=== PATIENT | female | born 1955 | race Caucasian/White ===

== ENCOUNTER → 2018-10-31 07:03 | Outpatient (CLI) | payer OTHER, SELFPAY ==
--- NOTE | 2018-10-31 07:10 | BI_ITS ---
MAMMOGRAPHY - BILATERAL SCREENING REASON FOR EXAM: Female, 63 years old. Routine annual screening examination. PERTINENT HISTORY: Aunt with breast cancer. TECHNIQUE: Digital bilateral breast bridgett (3D mammographic acquisition) in the CC and MLO projections. 2-D mediolateral oblique (MLO) and craniocaudad (CC) views of both breasts were obtained. CAD: Full Field Digital Mammography with Computer Added Detection was performed. COMPARISON: Comparison is made with prior study dated September 21, 2017 and August 29, 2016. FINDINGS: Breast Composition: The breasts are heterogeneously dense, which may obscure small masses. There are no dominant masses or suspicious calcifications. There is an 8.4 mm well-defined nodule in the deep slightly medial aspect of the right breast. Correlation with ultrasound is recommended. No other significant abnormalities are identified. BI/SCREENING MAMM (CAD), BILAT IMPRESSION: There is an 8.4 mm well-defined nodule in the deep slightly medial portion of the right breast. Correlation with ultrasound is recommended. ASSESSMENT CATEGORY: BIRADS Category 0: Incomplete. Need additional imaging evaluation. A letter regarding these results will be sent to the patient by the facility within 30 days. Approximately 10% of breast cancers are not detected by mammography. A normal mammogram should not delay biopsy of a clinically suspicious abnormality. [id number] Electronically Signed: Jw Stuart MD at 10:11 EST Tel [phone], Service support ,
== END ==
PROVIDERS: Family Provider Family Medicine; PCP Family Medicine; Referring Provider Family Medicine; Visit Provider Family Medicine
DX: Z12.31 Encounter for screening mammogram for malignant neoplasm of breast (principal)
CPT/HCPCS: 77063; 77067

== ENCOUNTER → 2018-11-24 15:31 | Outpatient (CLI) | payer OTHER, SELFPAY ==
--- NOTE | 2018-11-24 15:32 | US_ITS ---
STUDY: ULTRASOUND BREAST - RIGHT REASON FOR EXAM: Female, 63 years old. Abnormal screening mammogram. TECHNIQUE: Axial and longitudinal images of the RIGHT breast were performed with a high resolution ultrasound transducer. COMPARISON: Comparison is made with prior mammogram dated October 31, 2018. FINDINGS: RIGHT Breast: There is a 5 mm x 4 mm x 4 mm cyst at the 6:00 position of the breast at 1 cm from the nipple. There is also evidence of a 4 mm x 4 mm x 3 mm cyst at the 12:00 position of the breast at 2 cm from nipple. There is a 6 mm x 3 mm x 6 mm echogenic nodule deep to the skin surface at the 1:00 position breast at 2 cm some nipple. This most likely represents a small lipoma. US/Breast Limited Unilateral IMPRESSION: 2 small cysts are seen as described. Findings suggestive of a subcentimeter lipoma just deep to the skin at the 1:00 position breast at 2 cm from the nipple. ASSESSMENT CATEGORY: BIRADS Category 2: Benign. A letter regarding these results will be sent to the patient by the facility within 30 days. Electronically Signed: Jw Stuart MD at 9:16 EST , Service support ,
== END ==
PROVIDERS: Family Provider Family Medicine; PCP Family Medicine; Referring Provider Family Medicine; Visit Provider Family Medicine
DX: R92.8 Other abnormal and inconclusive findings on diagnostic imaging of breast (principal)
CPT/HCPCS: 76642

== ENCOUNTER 2019-02-23 12:12 | Inpatient (IN) | payer OTHER, SELFPAY ==
[2019-02-23] VITALS (24 sets, daily range): BP systolic 69–182; BP diastolic 38–102; PULSE 91–155; RESP 17–48; TEMP 36.9–40.5; O2SAT 93–100; BMI 28.7; BMI 31.1
--- NOTE | 2019-02-23 13:05 | CT_ITS ---
STUDY: CT ABDOMEN AND PELVIS WITHOUT CONTRAST REASON FOR EXAM: Female, 63 years old. Chills, back pain RADIATION DOSAGE (If Supplied By Facility): CTDIvol = ( 13.73 ) mGy, DLP = ( 720.10 ) mGycm TECHNIQUE: Transaxial images were obtained from the dome of the diaphragm to the symphysis pubis without oral contrast, and without intravenous contrast. Sagittal and coronal images were reconstructed. Individualized dose optimization techniques were used for this CT. COMPARISON: None. FINDINGS: Lung bases show interstitial edema with chronic interstitial changes. Heart is unremarkable, there is a small pericardial effusion with maximum thickness of 5 mm. There is decreased attenuation of the liver consistent with steatosis. Normal gallbladder and extrahepatic biliary system. Normal spleen. Normal pancreas. Normal bilateral adrenal glands. No obstructive uropathy, there is nonspecific induration of the perinephric fat. There is a 1 cm upper pole cyst in the right kidney and nonobstructing cortical medullary junction stones in the right kidney. Normal visualized stomach. Normal small intestine. Retained stool noted in the colon. The appendix is visualized and appears normal. Appendix best seen on coronal recon image 67. There is diffuse atherosclerotic calcification of the abdominal aorta, without a demonstrated aneurysm. Normal inferior vena cava. Normal retroperitoneum. Normal urinary bladder. Uterus is still present, the endometrium cannot be accurately evaluated with CT. No suspicious cystic mass or free fluid in the cul-de-sac. Normal abdominal wall. Normal osseous structures. CT/Abdomen/Pelvis without Cont IMPRESSION: No obstructive uropathy, there is a nonobstructing right renal stone and a simple right renal cyst and there is nonspecific perinephric inflammatory stranding. Fatty liver Normal appendix visualized Uterus is still present, the endometrium cannot be accurately evaluated with CT Electronically Signed: Alexander Pearl MD at 14:37 EDT , Service support ,
--- NOTE | 2019-02-23 13:11 | ED.DCSUM_ITS ---
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 basically thought she should come to the hospital, the cough is dry nonproductive she complains of suprapubic fullness some radiation of that to her back, she does indicate she is also had constipation where despite using laxatives she cannot have a bowel movement, She has felt feverish but has not actually had a documented temperature, she has a prior stroke to cause her to speak with a slightly heavy voice but that is unchanged her general health condition has been very good and stable She is noted here to have a temperature of 98.8, her chief complaint is feeling cold as if she has a fever she has had no exposures she has no runny nose no sore throat again the cough is dry nonproductive her urinary habits have been normal Physical Examination: [] 120/80 heart rate 120 sinus, temperature 98 General, no distress resting comfortably HEENT is generally unremarkable The neck is supple no adenopathy Cardiovascular, regular rate and rhythm tachycardic to 110 Lungs, clear bilateral Abdomen, soft nontender, she complains subjectively of her suprapubic fullness there is nothing on physical exam, rectal exam shows brown stool nontender no masses Extremities, no clubbing cyanosis or edema Neurologic, awake alert answering questions appropriately moving all 4 extremities her speech is slightly heavy but but stable for her her NIH is 0 Test Results: [] Emergency Department Course and Treatment: [] Above screening labs are obtained Patient CT abdomen shows appears to be perinephric stranding possibly inflammatory, the patient's white count was 12 her lactate was 2, she received IV fluids we checked a rectal temperature and it was 99, she was waiting for the rest of her studies to return she spiked a temperature to 105.0 she had shaking chills and Riggers, she remained awake alert she had a blood pressure of 120/80 she continued IV fluids to a 30 cc/kg bolus, blood urine cultures are obtained, IV antibiotics per sepsis protocol started, given all of the above we will admit to the hospital for further management, lactate 2.0 UA shows signs of UTI Her blood pressure remained stable heart rate range 120 no cardiovascular signs of compromise will arrange for admission Treatment Plan: [] Disposition: [] Admit stable Impression: [] Severe sepsis urinary tract infection This note was generated with Medcurrent dictation software. It may contain incorrect words, spelling, and punctuation that were not noted in review of the chart prior to signing ED Disposition - Plan for ED Patient: Referrals: Juvencio Davila MD [Primary Care Provider] -
--- NOTE | 2019-02-23 13:41 | RAD_ITS ---
STUDY: X-RAY CHEST REASON FOR EXAM: Female, 63 years old. Fever, shaking chills TECHNIQUE: Single AP portable view of the chest. COMPARISON: None. FINDINGS: EKG leads overlie the chest The lungs are clear and expanded. There is no demonstrated pleural abnormality. Normal size heart. Normal mediastinum and danielle. Normal visualized pulmonary arteries. Normal visualized aortic arch and descending thoracic aorta. Normal visualized thoracic spine. Normal visualized ribs, clavicles, and shoulders. There is no demonstrated abnormality of the visualized soft tissue structures of the upper abdomen. RAD/Chest 1 View IMPRESSION: Normal x-ray examination of the chest. Electronically Signed: Alexander Pearl MD at 14:24 EDT , Service support ,
[2019-02-23] MEDS: Morphine 4 MG/ML Syringe IV (13:46)
[2019-02-23] MEDS: 0.9% Normal Saline 1,000 ML 1000 ML IV (13:46)
[2019-02-23] MEDS: Ondansetron 4 MG/2 ML Vial IV (13:47)
[2019-02-23 13:57] LABS: Absolute Lymphocyte Count 0.31 X10^3/ul (0.83-4.51); Absolute Neutrophil Count 10.5 X10^3/uL (2.0-7.7); Basophil# 0.01 X10^3/uL; Basophil% 0.1 % (0-1); Hematocrit 33.2 % (37-47); Hemoglobin 10.9 g/dl (12.0-15.0); Lymphocyte # 0.31 X10^3/ul (4.0); Lymphocyte % 2.6 % (19-41); Mean Corp Hgb Conc 32.8 g/gl (32-36); Mean Corpuscular Hgb 29.5 pg (27.0-32.0); Mean Platelet Vol. 11.5 fl (6.2-12.0); Monocyte# 1.16 X10^3/uL; Monocyte% 9.6 % (0-10); Neutrophil % 87.3 % (47-70); Platelet Count 160 K/mm3 (150-450); RBC Distribution Width SD 46.3 fl (35.1-43.9); Red Blood Count 3.69 M/mm3 (4.2-5.4)
[2019-02-23 14:01] LABS: Differential Indicated SCAN CRITERIA MET; POSITIVE COUNT NO; POSITIVE DIFFERENTIAL YES; POSITIVE MORPHOLOGY NO
[2019-02-23 14:02] LABS: AST(SGOT) 74 U/L (15-37); Alanine Aminotransfer ALT/SGPT 75 U/L (13-56); Albumin, Serum 2.9 g/dL (3.2-5.0); Alkaline Phosphatase 120 U/L (45-117); Anion Gap 4 (5-15); BUN 29 mg/dL (7-18); Bilirubin, Direct 0.48 mg/dL (0.00-0.30); Calcium,Total 8.7 mg/dL (8.5-10.1); Chloride 103 mmol/L (98-107); Creatinine, Serum 1.71 mg/dL (0.55-1.02); EST Glomerular Filtration Rate 32 mL/min (>60); Est Glom Filt Rate - Afr Amer 39 mL/min (>60); Estimated Creatinine Clearance 28.58 ml/min; Glucose 103 mg/dL (74-106); Lipase 92 U/L (73-393); Potassium 3.7 mmol/L (3.5-5.1); Protein, Total 6.9 g/dL (6.4-8.2); Sodium Level 133 mmol/L (136-145)
--- NOTE | 2019-02-23 14:31 | ED.RN ---
LACTIC 2.0, AWARE.
[2019-02-23] MEDS: Acetaminophen 500 MG Tablet 1000 MG PO (14:54)
[2019-02-23] MEDS: 0.9% Normal Saline 1,000 ML 999 ML IV ×3 (15:00→21:19)
[2019-02-23 15:19] LABS: Mucous, Urine 0 SEEN /hpf (<or=2+)
--- NOTE | 2019-02-23 15:30 | ED.RN ---
MD AWARE OF PT CURRENT VITAL SIGNS.
[2019-02-23 15:49] LABS: Color, Urine Straw (Yellow); Glucose, Dipstick Normal (Normal); Ketone-Dipstick Negative (Negative); Leukocyte Esterase-Dipstick 500 /ul (Negative); Nitrite-Dipstick Negative (Negative); Occult Blood-Urine 150 /ul (Negative); Protein-Dipstick 100 mg/dl (Negative); Specific Gravity, Urine 1.015 (1.002-1.030); Urine Bilirubin Dipstick Negative (Negative); Urine Clarity Cloudy (Clear); Urine Urobilinogen 1 mg/dl (Normal)
[2019-02-23 16:26] LABS: Bacteria 4+ /hpf (None Seen); Red Blood Cells-Urine 0-5 SEEN /hpf (0-5); Renal Epithelial Cells 0-5 SEEN /hpf (0-5); Squamous Epithelial Cells - UA 0-5 SEEN /hpf (5-10)
[2019-02-23 16:27] LABS: Amorphous Sediment 2+; White Blood Cells 25-50 SEEN /hpf (0-5)
[2019-02-23 17:40] LABS: Reflex Lactate? Y
[2019-02-23] MEDS: 0.9% Normal Saline 1,000 ML 200 ML IV (18:32)
[2019-02-23 18:52] LABS: Lactic Acid 1.7 mmol/L (0.4-2.0)
--- NOTE | 2019-02-23 21:01 | HP.PCM_ITS ---
Problem List (1) Chills Status: Acute (2) Lower back pain Status: Acute Qualifiers: Chronicity: acute Back pain laterality: bilateral Sciatica presence: without sciatica Qualified Code(s): M54.5 - Low back pain History of Present Illness Date of Admission: 02/23/19 Chief Complaint: Chills, lower back pain The patient is a 63 year old F who was seen in the emergency room at [facility] with a chief complaint of low back pain across her entire low back x24 hours along with chills. Information by this examiner was obtained from the patient's daughter who is in the room due to the patient's somnolence and inability to answer some questions. According to the emergency room physic emily, patient spiked a temp of 105 degrees after she been in the ER for a few hours, lab work obtained was remarkable for an elevated white blood cell count at 12, hemoglobin was 10.9, sodium was 133, creatinine was 1.71, BUN was 29, AST was elevated at 74, ALT was elevated at 75, alkaline phosphatase was elevated at 120, lactic acid was elevated at 2, and patient's urinalysis indicated she had a urinary tract infection with +4 bacteria and 25-50 WBCs and positive leukocyte estrace. Patient had a CT scan of her abdomen and pelvis which showed a nonobstructing right renal stone and nonspecific perinephric inflammatory stranding on the right, fatty liver was noted to be present. Patient was felt to have severe sepsis from acute pyelonephritis, she was given IV Zosyn and IV vancomycin in the emergency room, she will be admitted to PCU, vigorous fluid administration will be carried out. Patient was given IV morphine and IV Zosyn in the emergency room but I think the patient has an element of metabolic encephalopathy due to her sepsis. Past Medical History Allergies No Known Allergies Allergy (Verified 02/23/19 12:14) Home Medications: Ambulatory Orders Medication Instructions Recorded Cyanocobalamin (Vitamin B-12) 1,000 mcg PO DAILY 02/23/19 [B-12] Fenofibrate 54 mg PO DAILY 02/23/19 Folic Acid 1 mg PO DAILY 02/23/19 Lisinopril 20 mg PO DAILY 02/23/19 Melatonin 10 mg PO QHS 02/23/19 Multivitamins,Therapeutic 1 tablet PO DAILY 02/23/19 [Multivitamin] Risperidone 2 mg PO DAILY 02/23/19 Simvastatin 40 mg PO QHS 02/23/19 Venlafaxine HCl [Venlafaxine HCl 75 mg PO DAILY 02/23/19 ER] Venlafaxine HCl [Venlafaxine HCl 150 mg PO DAILY 02/23/19 ER] Surgical History: tonsillectomy, - - Uterine ablation Psychiatric History: No pertinent psych hx 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 VTE Information - Inpt Only VTE Present on Admission: No VTE Mechan Device Prophylaxis: None VTE Pharm Prophylaxis ordered?: Yes Patient Problems: Active and Suspected Problems Chills (Acute) Lower back pain (Acute) - Physical Exam General: No apparent distress, Well developed, Confused, Lethargic HEENT: Atraumatic, PERRLA, EOMI, Normocephalic Oral: Moist Mucosa Neck: Supple, No JVD, Negative Carotid Bruits, No Nuchal Rigidity, Trachea Midline, Thyroid Normal Size and Texture Lungs: Clear to auscultation, Normal air movement, No rhonchi, No wheeze, No rales Cardiovascular: PMI Normal, No rub noted, No Gallop, Tachycardic Abdomen: Bowel Sounds Present, Soft, Non Tender, Non-Distended, No hernias noted Extremities: No clubbing, No cyanosis, No edema Skin: No rashes, No breakdown Neurological: Cranial nerves II-XII grossly intact, Neuro grossly intact Psych/Mental Status: - - Patient appears somnolent, she responds to deep painful stimuli and some verbal stimuli but then falls back to sleep. Vital Signs Temp Pulse Resp BP Pulse Ox 98.8 F 108 H 24 H 69/43 L 96 02/23/19 20:00 02/23/19 20:00 02/23/19 20:00 02/23/19 20:00 02/23/19 20:00 Oxygen Flow Rate (L/min) 2 Oxygen Delivery Method Nasal Cannula Weight: 79.638 kg Body Mass Index (BMI) 31.1 Intake and Output for Last 24 Hours 02/21/19 02/22/19 02/23/19 23:59 23:59 23:59 Intake Total 275 / 275 Balance 275 / 275 Laboratory Tests Past 24 Hrs 02/23/19 02/23/19 02/23/19 13:36 13:36 13:36 WBC 12.0 H RBC 3.69 L Hgb 10.9 L Hct 33.2 L MCV 90.0 MCH 29.5 MCHC 32.8 RDW 14.0 RDW Differential 46.3 H Plt Count 160 MPV 11.5 Immature Gran % (Auto) 0.400 Neut % (Auto) 87.3 H Lymph % (Auto) 2.6 L [place] % (Auto) 9.6 Eos % (Auto) 0.0 Baso % (Auto) 0.1 Absolute Neuts (auto) 10.5 H Absolute Lymphs (auto) 0.31 L Total Counted Not Reportable Differential Comment COMMENT Sodium 133 L Potassium 3.7 Chloride 103 Carbon Dioxide 26.0 Anion Gap 4 L BUN 29 H Creatinine 1.71 H Estim Creat Clear Calc 28.58 Est GFR (MDRD) Af Amer 39 L Est GFR (MDRD) Non-Af 32 L BUN/Creatinine Ratio 17.0 Glucose 103 Lactic Acid 2.0 Calcium 8.7 Total Bilirubin 0.70 Direct Bilirubin 0.48 H AST 74 H ALT 75 H Alkaline Phosphatase 120 H Troponin I < 0.015 Total Protein 6.9 Albumin 2.9 L Globulin 4.0 Lipase 92 Urine Color Urine Clarity Urine pH Ur Specific [place] Urine Protein Urine Glucose (UA) Urine Ketones Urine Occult Blood Urine Nitrite Urine Bilirubin Urine Urobilinogen Ur Leukocyte Esterase Urine RBC Urine WBC Ur Squamous Epith Cells Ur Renal Epithelial Cell Amorphous Sediment Urine Bacteria Urine Mucus 02/23/19 02/23/19 15:10 17:59 WBC RBC Hgb Hct MCV MCH MCHC RDW RDW Differential Plt Count MPV Immature Gran % (Auto) Neut % (Auto) Lymph % (Auto) [place] % (Auto) Eos % (Auto) Baso % (Auto) Absolute Neuts (auto) Absolute Lymphs (auto) Total Counted Differential Comment Sodium Potassium Chloride Carbon Dioxide Anion Gap BUN Creatinine Estim Creat Clear Calc Est GFR (MDRD) Af Amer Est GFR (MDRD) Non-Af BUN/Creatinine Ratio Glucose Lactic Acid 1.7 Calcium Total Bilirubin Direct Bilirubin AST ALT Alkaline Phosphatase Troponin I Total Protein Albumin Globulin Lipase Urine Color Straw Urine Clarity Cloudy Urine pH 6.0 Ur Specific [place] 1.015 Urine Protein 100 H Urine Glucose (UA) Normal Urine Ketones Negative Urine Occult Blood 150 H Urine Nitrite Negative Urine Bilirubin Negative Urine Urobilinogen 1 H Ur Leukocyte Esterase 500 H Urine RBC 0-5 SEEN Urine WBC 25-50 SEEN Ur Squamous Epith Cells 0-5 SEEN Ur Renal Epithelial Cell 0-5 SEEN Amorphous Sediment 2+ Urine Bacteria 4+ Urine Mucus 0 SEEN Assessment/Plan All Active Problems Chills (Acute) Lower back pain (Acute) #1 severe sepsis secondary to acute pyelonephritis from gram-negative bacteria- patient will be admitted to PCU, she will be monitored on telemetry, she will receive IV fluids and IV antibiotics. Lactic acid level will be rechecked #2 metabolic encephalopathy secondary to #1 #3 acute pyelonephritis secondary to gram-negative bacteria #4 hyperlipidemia #5 depression #6 hypertension Code Visit Inpatient E&M: 84682 Init Hosp L3
[2019-02-23] MEDS: Atorvastatin Calcium 20 MG Tablet PO (21:39)
[2019-02-24] VITALS (39 sets, daily range): BP systolic 83–163; BP diastolic 39–104; PULSE 69–168; RESP 12–92; TEMP 36.3–40.6; O2SAT 74–100
[2019-02-24] MEDS: 0.9% Normal Saline 1,000 ML 200 ML IV (00:21)
--- NOTE | 2019-02-24 02:47 | EKG12_ITS ---
Test Reason : Blood Pressure : / mmHG Vent. Rate : 172 BPM Atrial Rate : 166 BPM P-R Int : 000 ms QRS Dur : 068 ms QT Int : 276 ms P-R-T Axes : 000 010 041 degrees QTc Int : 466 ms Supraventricular tachycardia Low voltage QRS Borderline ECG Confirmed by DELILAH LIU, BIJU ([id number]), communications editor FABRICIO ABDULLAHI ([id number]) on 02/25/2019 1:51:21 PM Referred By: Confirmed By:BIJU MAZARIEGOS MD
--- NOTE | 2019-02-24 02:50 | RAD_ITS ---
STUDY: X-RAY CHEST REASON FOR EXAM: Female, 63 years old. Shortness of breath and dyspnea. TECHNIQUE: 1 view COMPARISON: February 23, 2019 FINDINGS: Mild cardiomegaly with central vascular congestion. No pneumonia. No pleural effusions.. Normal visualized thoracic spine. Normal visualized ribs, clavicles, and shoulders. There is no demonstrated abnormality of the visualized soft tissue structures of the upper abdomen. RAD/Chest 1 View (Portable) IMPRESSION: Cardiomegaly with mild central vascular congestion. No pneumonia. No pleural effusions. Electronically Signed: Keon Obando MD at 3:44 EDT Tel , Service support ,
--- NOTE | 2019-02-24 03:23 | PCM.PN.HOSP ---
Patient Problems: Active and Suspected Problems Chills (Acute) Lower back pain (Acute) Subjective: Rapid response team called Patient became tachycardic rate 160s with rapid respiratory rate of 30s CXR showed pulmonary congestion (she had received 5liters NS bolus since arrival in ER with IV at 200cc/hr) and urine output of 1400cc she responded to 5mg IV lopressor (BP was now normotensive) Pulse ox is maintained throughout the rapid response in the 90s with a non rebreather mask due to pulmonary congestion and increased work of breathing a trial of bipap therapy was initiated cbc,cmp stat ordered will add consult for ICU dramatic critic Vitals/I&O's: Vital Signs Temp Pulse Resp BP Pulse Ox 105.1 F H 152 H 51 H 150/62 H 94 02/24/19 03:09 02/24/19 03:09 02/24/19 03:09 02/24/19 03:09 02/24/19 03:09 Oxygen Flow Rate (L/min) 12 Oxygen Delivery Method Non-Rebreather Weight: 175 lb 9.162 oz Body Mass Index (BMI) 31.1 Intake and Output for Last 24 Hours 02/22/19 02/23/19 02/24/19 23:59 23:59 23:59 Intake Total 275 / 275 3273 / 3273 Output Total 1200 / 1200 Balance 275 / 275 2072 / 2072 General: Alert, Oriented x3 Lungs: Diminished Cardiovascular: Normal S1, Normal S2, Tachycardic Skin: - - slight jaundice Neurological: Neuro grossly intact Microbiology Past 72 Hours 02/23/19 13:24 Mucosa - Nasopharyngeal Respiratory Panel (PCR) - Preliminary Laboratory Results 02/23/19 13:36: WBC 12.0 H, RBC 3.69 L, Hgb 10.9 L, Hct 33.2 L, MCV 90.0, MCH 29.5, MCHC 32.8, RDW 14.0, RDW Differential 46.3 H, Plt Count 160, MPV 11.5, Immature Gran % (Auto) 0.400, Neut % (Auto) 87.3 H, Lymph % (Auto) 2.6 L, [place] % (Auto) 9.6, Eos % (Auto) 0.0, Baso % (Auto) 0.1, Absolute Neuts (auto) 10.5 H, Absolute Lymphs (auto) 0.31 L, Total Counted Not Reportable, Differential Comment COMMENT 02/23/19 13:36: Sodium 133 L, Potassium 3.7, Chloride 103, Carbon Dioxide 26.0, Anion Gap 4 L, BUN 29 H, Creatinine 1.71 H, Estim Creat Clear Calc 28.58, Est GFR (MDRD) Af Amer 39 L, Est GFR (MDRD) Non-Af 32 L, BUN/Creatinine Ratio 17.0, Glucose 103, Calcium 8.7, Total Bilirubin 0.70, Direct Bilirubin 0.48 H, AST 74 H, ALT 75 H, Alkaline Phosphatase 120 H, Troponin I < 0.015, Total Protein 6.9, Albumin 2.9 L, Globulin 4.0, Lipase 92 02/23/19 13:36: Lactic Acid 2.0 02/23/19 15:10: Urine Color Straw, Urine Clarity Cloudy, Urine pH 6.0, Ur Specific [place] 1.015, Urine Protein 100 H, Urine Glucose (UA) Normal, Urine Ketones Negative, Urine Occult Blood 150 H, Urine Nitrite Negative, Urine Bilirubin Negative, Urine Urobilinogen 1 H, Ur Leukocyte Esterase 500 H, Urine RBC 0-5 SEEN, Urine WBC 25-50 SEEN, Ur Squamous Epith Cells 0-5 SEEN, Ur Renal Epithelial Cell 0-5 SEEN, Amorphous Sediment 2+, Urine Bacteria 4+, Urine Mucus 0 SEEN 02/23/19 17:59: Lactic Acid 1.7 Current Medications Atorvastatin Calcium (Lipitor) 20 mg PO QHS [facility] Last Admin: 02/23/19 21:39 Dose: 20 mg Dextrose (D50w Syringe) 0 gm IV X1 PRN; Protocol PRN Reason: Hypoglycemia Enoxaparin Sodium (Lovenox) 30 mg SC DAILY@0600 [facility] Folic Acid (Folic Acid) 1 mg PO DAILY [facility] Glucagon () 1 mg IM .X1 PRN PRN Reason: Hypoglycemia Sodium Chloride () 1,000 mls @ 200 mls/hr IV .Q5H [facility] Last Admin: 02/24/19 00:21 Dose: 200 mls/hr Piperacillin Sod/Tazobactam (Sod 3.375 gm/ Sodium Chloride) 50 mls @ 12.5 mls/hr IV Q8 [facility] Last Admin: 02/23/19 21:37 Dose: 12.5 mls/hr Lisinopril (Zestril) 20 mg PO DAILY [facility] Morphine Sulfate () 4 mg IV Q3H PRN PRN PRN Reason: Severe Pain (7-07/30) Ondansetron HCl (Zofran) 4 mg IV Q6H PRN PRN PRN Reason: NAUSEA/VOMITING Risperidone (Risperdal) 2 mg PO DAILY [facility] Sodium Chloride () 5 - 15 ml IV UD PRN PRN Reason: SALINE FLUSH Venlafaxine HCl (Effexor Xr) 75 mg PO DAILY [facility] Venlafaxine HCl (Effexor Xr) 150 mg PO DAILY [facility] Medical Necessity - Tobacco Use Smoking Status: Never smoker Tobacco Use: Non-smoker Assessment/Plan All Active Problems Chills (Acute) Lower back pain (Acute)
--- NOTE | 2019-02-24 03:27 | PN_ITS ---
Patient Problems: Active and Suspected Problems Chills (Acute) Lower back pain (Acute) Subjective: Rapid response team called Patient became tachycardic rate 160s with rapid respiratory rate of 30s CXR showed pulmonary congestion (she had received 5liters NS bolus since arrival in ER with IV at 200cc/hr) and urine output of 1400cc she responded to 5mg IV lopressor (BP was now normotensive) Pulse ox is maintained throughout the rapid response in the 90s with a non rebreather mask due to pulmonary congestion and increased work of breathing a trial of bipap therapy was initiated cbc,cmp stat ordered 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 Vitals/I&O's: Vital Signs Temp Pulse Resp BP Pulse Ox 105.1 F H 152 H 51 H 150/62 H 94 02/24/19 03:09 02/24/19 03:09 02/24/19 03:09 02/24/19 03:09 02/24/19 03:09 Oxygen Flow Rate (L/min) 12 Oxygen Delivery Method Non-Rebreather Weight: 175 lb 9.162 oz Body Mass Index (BMI) 31.1 Intake and Output for Last 24 Hours 02/22/19 02/23/19 02/24/19 23:59 23:59 23:59 Intake Total 275 / 275 3273 / 3273 Output Total 1200 / 1200 Balance 275 / 275 2072 / 2072 General: Alert, Oriented x3 Lungs: Diminished Cardiovascular: Normal S1, Normal S2, Tachycardic Skin: - - slight jaundice Neurological: Neuro grossly intact Microbiology Past 72 Hours 02/23/19 13:24 Mucosa - Nasopharyngeal Respiratory Panel (PCR) - Preliminary Laboratory Results 02/23/19 13:36: WBC 12.0 H, RBC 3.69 L, Hgb 10.9 L, Hct 33.2 L, MCV 90.0, MCH 29.5, MCHC 32.8, RDW 14.0, RDW Differential 46.3 H, Plt Count 160, MPV 11.5, Immature Gran % (Auto) 0.400, Neut % (Auto) 87.3 H, Lymph % (Auto) 2.6 L, [place] % (Auto) 9.6, Eos % (Auto) 0.0, Baso % (Auto) 0.1, Absolute Neuts (auto) 10.5 H, Absolute Lymphs (auto) 0.31 L, Total Counted Not Reportable, Differential Comment COMMENT 02/23/19 13:36: Sodium 133 L, Potassium 3.7, Chloride 103, Carbon Dioxide 26.0, Anion Gap 4 L, BUN 29 H, Creatinine 1.71 H, Estim Creat Clear Calc 28.58, Est GFR (MDRD) Af Amer 39 L, Est GFR (MDRD) Non-Af 32 L, BUN/Creatinine Ratio 17.0, Glucose 103, Calcium 8.7, Total Bilirubin 0.70, Direct Bilirubin 0.48 H, AST 74 H, ALT 75 H, Alkaline Phosphatase 120 H, Troponin I < 0.015, Total Protein 6.9, Albumin 2.9 L, Globulin 4.0, Lipase 92 02/23/19 13:36: Lactic Acid 2.0 02/23/19 15:10: Urine Color Straw, Urine Clarity Cloudy, Urine pH 6.0, Ur Specific Gray 1.015, Urine Protein 100 H, Urine Glucose (UA) Normal, Urine Ketones Negative, Urine Occult Blood 150 H, Urine Nitrite Negative, Urine Bilirubin Negative, Urine Urobilinogen 1 H, Ur Leukocyte Esterase 500 H, Urine RBC 0-5 SEEN, Urine WBC 25-50 SEEN, Ur Squamous Epith Cells 0-5 SEEN, Ur Renal Epithelial Cell 0-5 SEEN, Amorphous Sediment 2+, Urine Bacteria 4+, Urine Mucus 0 SEEN 02/23/19 17:59: Lactic Acid 1.7 Current Medications Atorvastatin Calcium (Lipitor) 20 mg PO QHS [facility] Last Admin: 02/23/19 21:39 Dose: 20 mg Dextrose (D50w Syringe) 0 gm IV X1 PRN; Protocol PRN Reason: Hypoglycemia Enoxaparin Sodium (Lovenox) 30 mg SC DAILY@0600 [facility] Folic Acid (Folic Acid) 1 mg PO DAILY [facility] Glucagon () 1 mg IM .X1 PRN PRN Reason: Hypoglycemia Sodium Chloride () 1,000 mls @ 200 mls/hr IV .Q5H [facility] Last Admin: 02/24/19 00:21 Dose: 200 mls/hr Piperacillin Sod/Tazobactam (Sod 3.375 gm/ Sodium Chloride) 50 mls @ 12.5 mls/hr IV Q8 [facility] Last Admin: 02/23/19 21:37 Dose: 12.5 mls/hr Lisinopril (Zestril) 20 mg PO DAILY [facility] Morphine Sulfate () 4 mg IV Q3H PRN PRN PRN Reason: Severe Pain (7-07/30) Ondansetron HCl (Zofran) 4 mg IV Q6H PRN PRN PRN Reason: NAUSEA/VOMITING Risperidone (Risperdal) 2 mg PO DAILY [facility] Sodium Chloride () 5 - 15 ml IV UD PRN PRN Reason: SALINE FLUSH Venlafaxine HCl (Effexor Xr) 75 mg PO DAILY [facility] Venlafaxine HCl (Effexor Xr) 150 mg PO DAILY [facility] Medical Necessity - Tobacco Use Smoking Status: Never smoker Tobacco Use: Non-smoker Assessment/Plan All Active Problems Chills (Acute) Lower back pain (Acute)
[2019-02-24 03:56] LABS: Absolute Lymphocyte Count 0.25 X10^3/ul (0.83-4.51); Absolute Neutrophil Count 2.6 X10^3/uL (2.0-7.7); Basophil# 0.01 X10^3/uL; Basophil% 0.3 % (0-1); Hematocrit 29.8 % (37-47); Hemoglobin 9.6 g/dl (12.0-15.0); Lymphocyte # 0.25 X10^3/ul (4.0); Lymphocyte % 8.3 % (19-41); Mean Corp Hgb Conc 32.2 g/gl (32-36); Mean Corpuscular Hgb 29.4 pg (27.0-32.0); Mean Corpuscular Volume 91.4 fL (81-99); Mean Platelet Vol. 12.1 fl (6.2-12.0); Monocyte# 0.14 X10^3/uL; Monocyte% 4.6 % (0-10); Neutrophil # 2.62 X10^3/uL (2.7-7.7); Neutrophil % 86.5 % (47-70); Platelet Count 108 K/mm3 (150-450); RBC Distribution Width CV 14.3 % (11.6-14.6); RBC Distribution Width SD 46.6 fl (35.1-43.9); Red Blood Count 3.26 M/mm3 (4.2-5.4)
[2019-02-24 03:57] LABS: Differential Indicated SCAN CRITERIA MET; POSITIVE COUNT NO; POSITIVE DIFFERENTIAL YES; POSITIVE MORPHOLOGY YES
--- NOTE | 2019-02-24 04:00 | CPS ---
Pt states she wears PAP at home and uses a nasal mask. Pt unsure of settings and did not have study performed here.
[2019-02-24] MEDS: Acetaminophen 325 MG Tablet 650 MG PO ×2 (04:10→19:31)
[2019-02-24 04:15] LABS: AST(SGOT) 67 U/L (15-37); Alanine Aminotransfer ALT/SGPT 56 U/L (13-56); Albumin, Serum 2.4 g/dL (3.2-5.0); Alkaline Phosphatase 96 U/L (45-117); Anion Gap 8 (5-15); BUN 32 mg/dL (7-18); BUN/Creat Ratio 14.5 RATIO (10-20); Bilirubin, Direct 0.75 mg/dL (0.00-0.30); Calcium,Total 7.4 mg/dL (8.5-10.1); Chloride 112 mmol/L (98-107); EST Glomerular Filtration Rate 24 mL/min (>60); Est Glom Filt Rate - Afr Amer 29 mL/min (>60); Estimated Creatinine Clearance 22.21 ml/min; Globulin 3.5 g/dL (2.2-4.2); Glucose 89 mg/dL (74-106); Potassium 4.2 mmol/L (3.5-5.1); Protein, Total 5.9 g/dL (6.4-8.2); Sodium Level 138 mmol/L (136-145)
[2019-02-24] MEDS: Enoxaparin 30 MG/0.3 ML Syringe SC (04:59)
--- NOTE | 2019-02-24 06:29 | PCM.CON.CC ---
Reason for Consult Date of Consultation: 02/24/19 Reason for Consultation: Respiratory failure/severe sepsis History of Present Illness: The patient is a 63-year-old female, with a history as outlined below, who presented to the emergency department on February 23 with complaints of generalized malaise, fatigue and cough. On presentation to the emergency department, the patient was initially noted to be afebrile, tachycardic and mildly hypertensive. She was initially maintaining appropriate oxygen saturations on room air. Laboratory evaluation initially revealed an elevated white blood cell count to 12,000. Chemistry profile was notable for acute kidney injury with a creatinine of 1.7. AST and ALT were mildly elevated as well as alkaline phosphatase. Urinalysis was positive for leukocyte esterase, white blood cells and 4+ urine bacteria. CT abdomen/pelvis revealed no evidence of obstructive uropathy. There was evidence of a nonobstructing right renal stone along with nonspecific perinephric inflammatory stranding. Initial plain film chest x-ray was largely unremarkable. The patient received supplemental IV fluid hydration and was started on antibiotics. She was subsequently admitted to the progressive care unit for ongoing management. During the member services representative hours of February 24, a rapid response team was called as the patient became per family tachycardic and tachypneic. A follow-up plain film chest x-ray revealed central vascular congestion. It was notable that the patient had received a significant amount of IV fluid hydration since her initial admission. The patient was treated with 5 mg of IV Lopressor. BiPAP was initiated. She was then transferred to the medical intensive care unit for ongoing management. Past Medical History Allergies No Known Allergies Allergy (Verified 02/23/19 12:14) Home Medications: Ambulatory Orders Medication Instructions Recorded Cyanocobalamin (Vitamin B-12) 1,000 mcg PO DAILY 02/23/19 [B-12] Fenofibrate 54 mg PO DAILY 02/23/19 Folic Acid 1 mg PO DAILY 02/23/19 Lisinopril 20 mg PO DAILY 02/23/19 Melatonin 10 mg PO QHS 02/23/19 Multivitamins,Therapeutic 1 tablet PO DAILY 02/23/19 [Multivitamin] Risperidone 2 mg PO DAILY 02/23/19 Simvastatin 40 mg PO QHS 02/23/19 Venlafaxine HCl [Venlafaxine HCl 75 mg PO DAILY 02/23/19 ER] Venlafaxine HCl [Venlafaxine HCl 150 mg PO DAILY 02/23/19 ER] Surgical History: tonsillectomy, - - Uterine ablation Psychiatric History: No pertinent psych hx 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 Lives: Spouse/ Significant Other Smoking Status: Never smoker Tobacco Use: Non-smoker Alcohol: None Drugs: None - *Family History Maternal History Items: Dementia, Heart Disease Paternal History Items: COPD, - - CHF Review of Systems Constitutional: Reports: Chills Eyes: Denies: Blurred vision, Double vision HEENT: Reports: Difficulty Hearing Cardiovascular: Denies: Chest Pain, Palpitations Respiratory: Reports: Cough, Shortness of Breath Gastrointestinal: Denies: Abdominal Pain, Nausea, Vomiting Genitourinary: Reports: Frequency Musculoskeletal: Reports: Back Pain Skin: Denies: Rash, Wounds Neurological: Denies: Numbness, Tingling, Focal weakness Psychiatric: Denies: Anxiety, Depression, Homicidal Ideations, Suicidal Ideations Hematologic/ Lymphatic: Denies: Easy Bruising, Easy Bleeding Patient Problems: Active and Suspected Problems Chills (Acute) Lower back pain (Acute) Objective: The patient's most recent lab work, culture data and imaging studies have all been personally reviewed. - Physical Exam General: Alert, Cooperative, No apparent distress, - - Currently on nasal cannula supplemental oxygen. The patient is hard of hearing. HEENT: Atraumatic, PERRLA, Normocephalic Oral: No Gingival or Mucosal Lesions/ Ulcerations Neck: Supple, No Nodes, Trachea Midline Lungs: No rhonchi, No wheeze, No rales, Diminished Cardiovascular: Regular rate, Regular Rhythm, Normal S1, Normal S2, No murmurs Abdomen: Bowel Sounds Present, Soft, Non Tender Extremities: No clubbing, No cyanosis, Edema Skin: No breakdown Musculoskeletal: No Tenderness to Palpation of Joints or Extremities Lymphatic: No Cervical, Supraclavicular, or Inguinal Adenopathy Neurological: Neuro grossly intact Psych/Mental Status: Normal Affect, Appropriate Vital Signs Temp Pulse Resp BP Pulse Ox 101.9 F H 95 21 H 86/54 L 100 02/24/19 06:00 02/24/19 06:00 02/24/19 06:00 02/24/19 06:00 02/24/19 06:00 Oxygen Flow Rate (L/min) 15 Oxygen Delivery Method Bi-pap Weight: 188 lb 7.924 oz Body Mass Index (BMI) 31.1 Intake and Output for Last 24 Hours 02/22/19 02/23/19 02/24/19 23:59 23:59 23:59 Intake Total 275 / 275 4229 / 4229 Output Total 1550 / 1550 Balance 275 / 275 2679 / 2679 Microbiology Past 72 Hours 02/23/19 13:24 Respiratory Panel (PCR) - Preliminary Mucosa - Nasopharyngeal Laboratory Tests Past 24 Hrs 02/23/19 02/23/19 02/23/19 13:36 13:36 13:36 WBC 12.0 H RBC 3.69 L Hgb 10.9 L Hct 33.2 L MCV 90.0 MCH 29.5 MCHC 32.8 RDW 14.0 RDW Differential 46.3 H Plt Count 160 MPV 11.5 Immature Gran % (Auto) 0.400 Neut % (Auto) 87.3 H Lymph % (Auto) 2.6 L [place] % (Auto) 9.6 Eos % (Auto) 0.0 Baso % (Auto) 0.1 Absolute Neuts (auto) 10.5 H Absolute Lymphs (auto) 0.31 L Total Counted Not Reportable Differential Comment COMMENT Diff Path Review Sodium 133 L Potassium 3.7 Chloride 103 Carbon Dioxide 26.0 Anion Gap 4 L BUN 29 H Creatinine 1.71 H Estim Creat Clear Calc 28.58 Est GFR (MDRD) Af Amer 39 L Est GFR (MDRD) Non-Af 32 L BUN/Creatinine Ratio 17.0 Glucose 103 Lactic Acid 2.0 Calcium 8.7 Total Bilirubin 0.70 Direct Bilirubin 0.48 H AST 74 H ALT 75 H Alkaline Phosphatase 120 H Troponin I < 0.015 Total Protein 6.9 Albumin 2.9 L Globulin 4.0 Lipase 92 Urine Color Urine Clarity Urine pH Ur Specific [place] Urine Protein Urine Glucose (UA) Urine Ketones Urine Occult Blood Urine Nitrite Urine Bilirubin Urine Urobilinogen Ur Leukocyte Esterase Urine RBC Urine WBC Ur Squamous Epith Cells Ur Renal Epithelial Cell Amorphous Sediment Urine Bacteria Urine Mucus 02/23/19 02/23/19 02/24/19 15:10 17:59 03:35 WBC 3.0 L RBC 3.26 L Hgb 9.6 L Hct 29.8 L MCV 91.4 MCH 29.4 MCHC 32.2 RDW 14.3 RDW Differential 46.6 H Plt Count 108 L MPV 12.1 H Immature Gran % (Auto) 0.300 Neut % (Auto) 86.5 H Lymph % (Auto) 8.3 L [place] % (Auto) 4.6 Eos % (Auto) 0.0 Baso % (Auto) 0.3 Absolute Neuts (auto) 2.6 Absolute Lymphs (auto) 0.25 L Total Counted Not Reportable Differential Comment Diff Path Review May foll Sodium Potassium Chloride Carbon Dioxide Anion Gap BUN Creatinine Estim Creat Clear Calc Est GFR (MDRD) Af Amer Est GFR (MDRD) Non-Af BUN/Creatinine Ratio Glucose Lactic Acid 1.7 Calcium Total Bilirubin Direct Bilirubin AST ALT Alkaline Phosphatase Troponin I Total Protein Albumin Globulin Lipase Urine Color Straw Urine Clarity Cloudy Urine pH 6.0 Ur Specific [place] 1.015 Urine Protein 100 H Urine Glucose (UA) Normal Urine Ketones Negative Urine Occult Blood 150 H Urine Nitrite Negative Urine Bilirubin Negative Urine Urobilinogen 1 H Ur Leukocyte Esterase 500 H Urine RBC 0-5 SEEN Urine WBC 25-50 SEEN Ur Squamous Epith Cells 0-5 SEEN Ur Renal Epithelial Cell 0-5 SEEN Amorphous Sediment 2+ Urine Bacteria 4+ Urine Mucus 0 SEEN 02/24/19 03:35 WBC RBC Hgb Hct MCV MCH MCHC RDW RDW Differential Plt Count MPV Immature Gran % (Auto) Neut % (Auto) Lymph % (Auto) [place] % (Auto) Eos % (Auto) Baso % (Auto) Absolute Neuts (auto) Absolute Lymphs (auto) Total Counted Differential Comment Diff Path Review Sodium 138 Potassium 4.2 Chloride 112 H Carbon Dioxide 18.0 L Anion Gap 8 BUN 32 H Creatinine 2.20 H Estim Creat Clear Calc 22.21 Est GFR (MDRD) Af Amer 29 L Est GFR (MDRD) Non-Af 24 L BUN/Creatinine Ratio 14.5 Glucose 89 Lactic Acid Calcium 7.4 L Total Bilirubin 0.90 Direct Bilirubin 0.75 H AST 67 H ALT 56 Alkaline Phosphatase 96 Troponin I Total Protein 5.9 L Albumin 2.4 L Globulin 3.5 Lipase Urine Color Urine Clarity Urine pH Ur Specific [place] Urine Protein Urine Glucose (UA) Urine Ketones Urine Occult Blood Urine Nitrite Urine Bilirubin Urine Urobilinogen Ur Leukocyte Esterase Urine RBC Urine WBC Ur Squamous Epith Cells Ur Renal Epithelial Cell Amorphous Sediment Urine Bacteria Urine Mucus Clinical Impression(s) from Imaging Studies Abdomen/Pelvis CT 02/23/19 13:05 IMPRESSION: No obstructive uropathy, there is a nonobstructing right renal stone and a simple right renal cyst and there is nonspecific perinephric inflammatory stranding. Fatty liver Normal appendix visualized Uterus is still present, the endometrium cannot be accurately evaluated with CT Electronically Signed: Alexander Pearl MD at 14:37 EDT , Service support , Chest X-Ray 02/23/19 13:41 IMPRESSION: Normal x-ray examination of the chest. Electronically Signed: Alexander Pearl MD at 14:24 EDT , Service support , Chest X-Ray 02/24/19 02:50 IMPRESSION: Cardiomegaly with mild central vascular congestion. No pneumonia. No pleural effusions. Electronically Signed: Keon Obando MD at 3:44 EDT Tel , Service support , Assessment/Plan Active and Suspected Problems Chills (Acute) Lower back pain (Acute) RECOMMENDATIONS: 1. Check troponin and BNP. 2. Obtain blood cultures. Check MRSA screen. 3. Discontinue lisinopril and IV morphine, given renal insufficiency. 4. Continue broad-spectrum antimicrobial coverage. 5. Obtain surface echocardiogram. IMPRESSIONS: 1. Acute hypoxemic respiratory failure The patient's etiology for her decompensation was likely the consequence of overzealous volume resuscitation coupled with the development of a tachyarrhythmia, leading to flash pulmonary edema. The patient has responded appropriately to the use of BiPAP therapy. However, given her tenuous hemodynamics, would favor holding off on diuretic therapy. She is currently maintaining appropriate oxygen saturations on nasal cannula. We will continue to wean accordingly. In addition to the aforementioned, will obtain an echocardiogram. Check troponin and BNP. 2. Severe sepsis secondary to pyelonephritis The patient was more than adequately volume resuscitated. She is currently on appropriate antimicrobial coverage. Given her rather tenuous hemodynamics, will have a PICC line placed today, should vasopressors be required. 3. Acute kidney injury Likely secondary to ATN in the setting of #2. We will continue to monitor urine output accordingly. Hold lisinopril and discontinue morphine, given renal insufficiency. 4. Troponin elevation Likely secondary to demand ischemia. However, would plan to continue to trend troponins. Obtain echocardiogram as ordered. 5. Obstructive sleep apnea The patient has a self-reported history of obstructive sleep apnea, for which she utilizes nocturnal Pap therapy. The patient's family is going to bring in her nocturnal CPAP machine to be utilized on a nightly basis. 6. Hypertension/hyperlipidemia/depression Complicates care, management, recovery and prognosis. Continue to hold home antihypertensive regimen for now. TIME: 38 minutes of critical care time, independent of procedures, was spent addressing the patient's acute respiratory failure, severe sepsis, pyelonephritis, acute kidney injury, troponin elevation, review of all data and collaboration with the care team. ([id number]) Code Visit 9xxxx: [id number] Critical care first hour
--- NOTE | 2019-02-24 06:34 | CON.PCM_ITS ---
Reason for Consult Date of Consultation: 02/24/19 Reason for Consultation: Respiratory failure/severe sepsis History of Present Illness: The patient is a 63-year-old female, with a history as outlined below, who presented to the emergency department on February 23 with complaints of generalized malaise, fatigue and cough. On presentation to the emergency department, the patient was initially noted to be afebrile, tachycardic and mildly hypertensive. She was initially maintaining appropriate oxygen saturations on room air. Laboratory evaluation initially revealed an elevated white blood cell count to 12,000. Chemistry profile was notable for acute kidney injury with a creatinine of 1.7. AST and ALT were mildly elevated as well as alkaline phosphatase. Urinalysis was positive for leukocyte esterase, white blood cells and 4+ urine bacteria. CT abdomen/pelvis revealed no evidence of obstructive uropathy. There was evidence of a nonobstructing right renal stone along with nonspecific perinephric inflammatory stranding. Initial plain film chest x-ray was largely unremarkable. The dago rose received supplemental IV fluid hydration and was started on antibiotics. She was subsequently admitted to the progressive care unit for ongoing management. During the signal manager hours of February 24, a rapid response team was called as the patient became per family tachycardic and tachypneic. A follow-up plain film chest x-ray revealed central vascular congestion. It was notable that the dago rose had received a significant amount of IV fluid hydration since her initial admission. The patient was treated with 5 mg of IV Lopressor. BiPAP was initiated. She was then transferred to the medical intensive care unit for ongoing management. Past Medical History Allergies No Known Allergies Allergy (Verified 02/23/19 12:14) Home Medications: Ambulatory Orders Medication Instructions Recorded Cyanocobalamin (Vitamin B-12) 1,000 mcg PO DAILY 02/23/19 [B-12] Fenofibrate 54 mg PO DAILY 02/23/19 Folic Acid 1 mg PO DAILY 02/23/19 Lisinopril 20 mg PO DAILY 02/23/19 Melatonin 10 mg PO QHS 02/23/19 Multivitamins,Therapeutic 1 tablet PO DAILY 02/23/19 [Multivitamin] Risperidone 2 mg PO DAILY 02/23/19 Simvastatin 40 mg PO QHS 02/23/19 Venlafaxine HCl [Venlafaxine HCl 75 mg PO DAILY 02/23/19 ER] Venlafaxine HCl [Venlafaxine HCl 150 mg PO DAILY 02/23/19 ER] Surgical History: tonsillectomy, - - Uterine ablation Psychiatric History: No pertinent psych hx 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 History: No pertinent 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 DIRECTOR history Lives: Spouse/ Significant Other Smoking Status: Never smoker Tobacco Use: Non-smoker Alcohol: None Drugs: None - *Family History Maternal History Items: Dementia, Heart Disease Paternal History Items: COPD, - - CHF Review of Systems Constitutional: Reports: Chills Eyes: Denies: Blurred vision, Double vision HEENT: Reports: Difficulty Hearing Cardiovascular: Denies: Chest Pain, Palpitations Respiratory: Reports: Cough, Shortness of Breath Gastrointestinal: Denies: Abdominal Pain, Nausea, Vomiting Genitourinary: Reports: Frequency Musculoskeletal: Reports: Back Pain Skin: Denies: Rash, Wounds Neurological: Denies: Numbness, Tingling, Focal weakness Psychiatric: Denies: Anxiety, Depression, Homicidal Ideations, Suicidal Ideations Hematologic/ Lymphatic: Denies: Easy Bruising, Easy Bleeding Patient Problems: Active and Suspected Problems Chills (Acute) Lower back pain (Acute) Objective: The patient's most recent lab work, culture data and imaging studies have all been personally reviewed. - Physical Exam General: Alert, Cooperative, No apparent distress, - - Currently on nasal cannula supplemental oxygen. The patient is hard of hearing. HEENT: Atraumatic, PERRLA, Normocephalic Oral: No Gingival or Mucosal Lesions/ Ulcerations Neck: Supple, No Nodes, Trachea Midline Lungs: No rhonchi, No wheeze, No rales, Diminished Cardiovascular: Regular rate, Regular Rhythm, Normal S1, Normal S2, No murmurs Abdomen: Bowel Sounds Present, Soft, Non Tender Extremities: No clubbing, No cyanosis, Edema Skin: No breakdown Musculoskeletal: No Tenderness to Palpation of Joints or Extremities Lymphatic: No Cervical, Supraclavicular, or Inguinal Adenopathy Neurological: Neuro grossly intact Psych/Mental Status: Normal Affect, Appropriate Vital Signs Temp Pulse Resp BP Pulse Ox 101.9 F H 95 21 H 86/54 L 100 02/24/19 06:00 02/24/19 06:00 02/24/19 06:00 02/24/19 06:00 02/24/19 06:00 Oxygen Flow Rate (L/min) 15 Oxygen Delivery Method Bi-pap Weight: 188 lb 7.924 oz Body Mass Index (BMI) 31.1 Intake and Output for Last 24 Hours 02/22/19 02/23/19 02/24/19 23:59 23:59 23:59 Intake Total 275 / 275 4229 / 4229 Output Total 1550 / 1550 Balance 275 / 275 2679 / 2679 Microbiology Past 72 Hours 02/23/19 13:24 Respiratory Panel (PCR) - Preliminary Mucosa - Nasopharyngeal Laboratory Tests Past 24 Hrs 02/23/19 02/23/19 02/23/19 13:36 13:36 13:36 WBC 12.0 H RBC 3.69 L Hgb 10.9 L Hct 33.2 L MCV 90.0 MCH 29.5 MCHC 32.8 RDW 14.0 RDW Differential 46.3 H Plt Count 160 MPV 11.5 Immature Gran % (Auto) 0.400 Neut % (Auto) 87.3 H Lymph % (Auto) 2.6 L [place] % (Auto) 9.6 Eos % (Auto) 0.0 Baso % (Auto) 0.1 Absolute Neuts (auto) 10.5 H Absolute Lymphs (auto) 0.31 L Total Counted Not Reportable Differential Comment COMMENT Diff Path Review Sodium 133 L Potassium 3.7 Chloride 103 Carbon Dioxide 26.0 Anion Gap 4 L BUN 29 H Creatinine 1.71 H Estim Creat Clear Calc 28.58 Est GFR (MDRD) Af Amer 39 L Est GFR (MDRD) Non-Af 32 L BUN/Creatinine Ratio 17.0 Glucose 103 Lactic Acid 2.0 Calcium 8.7 Total Bilirubin 0.70 Direct Bilirubin 0.48 H AST 74 H ALT 75 H Alkaline Phosphatase 120 H Troponin I < 0.015 Total Protein 6.9 Albumin 2.9 L Globulin 4.0 Lipase 92 Urine Color Urine Clarity Urine pH Ur Specific [place] Urine Protein Urine Glucose (UA) Urine Ketones Urine Occult Blood Urine Nitrite Urine Bilirubin Urine Urobilinogen Ur Leukocyte Esterase Urine RBC Urine WBC Ur Squamous Epith Cells Ur Renal Epithelial Cell Amorphous Sediment Urine Bacteria Urine Mucus 02/23/19 02/23/19 02/24/19 15:10 17:59 03:35 WBC 3.0 L RBC 3.26 L Hgb 9.6 L Hct 29.8 L MCV 91.4 MCH 29.4 MCHC 32.2 RDW 14.3 RDW Differential 46.6 H Plt Count 108 L MPV 12.1 H Immature Gran % (Auto) 0.300 Neut % (Auto) 86.5 H Lymph % (Auto) 8.3 L [place] % (Auto) 4.6 Eos % (Auto) 0.0 Baso % (Auto) 0.3 Absolute Neuts (auto) 2.6 Absolute Lymphs (auto) 0.25 L Total Counted Not Reportable Differential Comment Diff Path Review May foll Sodium Potassium Chloride Carbon Dioxide Anion Gap BUN Creatinine Estim Creat Clear Calc Est GFR (MDRD) Af Amer Est GFR (MDRD) Non-Af BUN/Creatinine Ratio Glucose Lactic Acid 1.7 Calcium Total Bilirubin Direct Bilirubin AST ALT Alkaline Phosphatase Troponin I Total Protein Albumin Globulin Lipase Urine Color Straw Urine Clarity Cloudy Urine pH 6.0 Ur Specific [place] 1.015 Urine Protein 100 H Urine Glucose (UA) Normal Urine Ketones Negative Urine Occult Blood 150 H Urine Nitrite Negative Urine Bilirubin Negative Urine Urobilinogen 1 H Ur Leukocyte Esterase 500 H Urine RBC 0-5 SEEN Urine WBC 25-50 SEEN Ur Squamous Epith Cells 0-5 SEEN Ur Renal Epithelial Cell 0-5 SEEN Amorphous Sediment 2+ Urine Bacteria 4+ Urine Mucus 0 SEEN 02/24/19 03:35 WBC RBC Hgb Hct MCV MCH MCHC RDW RDW Differential Plt Count MPV Immature Gran % (Auto) Neut % (Auto) Lymph % (Auto) [place] % (Auto) Eos % (Auto) Baso % (Auto) Absolute Neuts (auto) Absolute Lymphs (auto) Total Counted Differential Comment Diff Path Review Sodium 138 Potassium 4.2 Chloride 112 H Carbon Dioxide 18.0 L Anion Gap 8 BUN 32 H Creatinine 2.20 H Estim Creat Clear Calc 22.21 Est GFR (MDRD) Af Amer 29 L Est GFR (MDRD) Non-Af 24 L BUN/Creatinine Ratio 14.5 Glucose 89 Lactic Acid Calcium 7.4 L Total Bilirubin 0.90 Direct Bilirubin 0.75 H AST 67 H ALT 56 Alkaline Phosphatase 96 Troponin I Total Protein 5.9 L Albumin 2.4 L Globulin 3.5 Lipase Urine Color Urine Clarity Urine pH Ur Specific [place] Urine Protein Urine Glucose (UA) Urine Ketones Urine Occult Blood Urine Nitrite Urine Bilirubin Urine Urobilinogen Ur Leukocyte Esterase Urine RBC Urine WBC Ur Squamous Epith Cells Ur Renal Epithelial Cell Amorphous Sediment Urine Bacteria Urine Mucus Clinical Impression(s) from Imaging Studies Abdomen/Pelvis CT 02/23/19 13:05 IMPRESSION: No obstructive uropathy, there is a nonobstructing right renal stone and a simple right renal cyst and there is nonspecific perinephric inflammatory stranding. Fatty liver Normal appendix visualized Uterus is still present, the endometrium cannot be accurately evaluated with CT Electronically Signed: Alexander Pearl MD at 14:37 EDT , Service support , Chest X-Ray 02/23/19 13:41 IMPRESSION: Normal x-ray examination of the chest. Electronically Signed: Alexander Pearl MD at 14:24 EDT , Service support , Chest X-Ray 02/24/19 02:50 IMPRESSION: Cardiomegaly with mild central vascular congestion. No pneumonia. No pleural effusions. Electronically Signed: Keon Obando MD at 3:44 EDT Tel , Service support , Assessment/Plan Active and Suspected Problems Chills (Acute) Lower back pain (Acute) RECOMMENDATIONS: 1. Check troponin and BNP. 2. Obtain blood cultures. Check MRSA screen. 3. Discontinue lisinopril and IV morphine, given renal insufficiency. 4. Continue broad-spectrum antimicrobial coverage. 5. Obtain surface echocardiogram. IMPRESSIONS: 1. Acute hypoxemic respiratory failure The patient's etiology for her decompensation was likely the consequence of overzealous volume resuscitation coupled with the development of a tachyarrhythmia, leading to flash pulmonary edema. The patient has responded appropriately to the use of BiPAP therapy. However, given her tenuous hemodynamics, would favor holding off on diuretic therapy. She is currently maintaining appropriate oxygen saturations on nasal cannula. We will continue to wean accordingly. In addition to the aforementioned, will obtain an echocardiogram. Check troponin and BNP. 2. Severe sepsis secondary to pyelonephritis The patient was more than adequately volume resuscitated. She is currently on appropriate antimicrobial coverage. Given her rather tenuous hemodynamics, will have a PICC line placed today, should vasopressors be required. 3. Acute kidney injury Likely secondary to ATN in the setting of #2. We will continue to monitor urine output accordingly. Hold lisinopril and discontinue morphine, given renal insufficiency. 4. Troponin elevation Likely secondary to demand ischemia. However, would plan to continue to trend troponins. Obtain echocardiogram as ordered. 5. Obstructive sleep apnea The patient has a self-reported history of obstructive sleep apnea, for which she utilizes nocturnal Pap therapy. The patient's family is going to bring in her nocturnal CPAP machine to be utilized on a nightly basis. 6. Hypertension/hyperlipidemia/depression Complicates care, management, recovery and prognosis. Continue to hold home antihypertensive regimen for now. TIME: 38 minutes of critical care time, independent of procedures, was spent addressing the patient's acute respiratory failure, severe sepsis, pyelonephritis, acute kidney injury, troponin elevation, review of all data and collaboration with the care team. ([id number]) Code Visit 9xxxx: [id number] Critical care first hour
--- NOTE | 2019-02-24 06:39 | ECHOD_ITS ---
Reason For Study: DYSPNEA Procedure This was a 2D Doppler, Color Flow transthoracic echocardiogram. The exam was of adequate technical quality. Exam performed portable in ICU/CCU. Left Ventricle Normal LV size. Mild global left ventricular systolic dysfunction. The estimated ejection fraction is 40 %. There is evidence of diastolic dysfunction. Right Ventricle Normal RV size. Normal systolic function. Atria The left atrium is mildly enlarged. Normal right atrium. No doppler evidence for ASD. Mitral Valve There is no mitral annular calcification. Normal mitral valve. Mild (1+) mitral valve insufficiency. Tricuspid Valve Normal tricuspid valve. Trivial tricuspid valve insufficiency. Right ventricular systolic pressure estimated to be 21 mmHg. Aortic Valve Trisinus/trileaflet aortic valve. Normal aortic valve. Pulmonic Valve The pulmonic valve is not well visualized. Great Vessels Normal sized aortic root. Pericardium/Pleural No pericardial effusion. MMode/2D Measurements & Calculations LVIDd: 4.6 cm IVSd: 1.1 cm Ao root diam: 3.1 cm LVIDs: 3.6 cm LVPWd: 1.1 cm LA dimension: 3.7 cm RVDd: 3.4 cm FS: 21.6 % LAV(MOD-bp): 64.1 ml LA A4 area: 20.9 cm2 RA A4 area: 15.0 cm2 LAV(MOD-bp) Indexed: 34.0 ml/m2 LAV(MOD-sp2): 57.9 ml LAV(MOD-sp4): 61.6 ml Time Measurements MV dec time: 0.17 sec Doppler Measurements & Calculations MV E max jorge: 102.0 cm/sec Lat Peak E' Jorge: 5.9 cm/sec Med Peak E' Jorge: 4.4 cm/sec MV A max jorge: 85.4 cm/sec E/E' lat: 17.2 E/E' med: 23.2 MV E/A: 1.2 Ao V2 max: 106.7 cm/sec LV V1 max: 86.0 cm/sec PA V2 max: 76.9 cm/sec Ao max P.6 mmHg LV V1 max P.0 mmHg TR max jorge: 210.5 cm/sec TR max P.8 mmHg Interpretation Summary Mild global left ventricular systolic dysfunction. The estimated ejection fraction is 40 %. The left atrium is mildly enlarged. Mild (1+) mitral valve insufficiency. Trivial tricuspid valve insufficiency. Right ventricular systolic pressure estimated to be 21 mmHg. There is evidence of diastolic dysfunction. Ordering Physician: Mook Hirsch D.O. Referring Physician: LUBNA LOZANO Performed By: Renee SANCHEZ RVT, Carrie and Student
--- NOTE | 2019-02-24 07:11 | PCM.PN.HOSP ---
Patient Problems: Active and Suspected Problems Chills (Acute) Lower back pain (Acute) Subjective: Patient is a 63-year-old lady who presented to the emergency department with fever chills as well as back pain. Patient urinalysis was consistent with UTI. CT of the abdomen and pelvis obtained demonstrated a nonobstructing right renal stone and nonspecific perinephric inflammatory stranding. An assessment of sepsis secondary to acute pyelonephritis made admitted for subsequent management in the hospital 02/24/2019 patient went into acute respiratory distress during the night as a result of aggressive fluid resuscitation initiated because of her intention. Patient was placed on BiPAP monitored in the ICU Objective: GENERAL: on BiPAP HEENT: Atraumatic; moist oral mucosa EYES; Anicteric, Normal Conjunctiva NECK; supple, normal thyroid, no distended JVD. RESPIRATORY: Diminished to auscultation bilaterally, CARDIOVASCULAR: Regular S1 S2, no audible murmurs GI: soft, non-tender, normoactive bowel sounds, : No Renal angle tenderness; EXTREMITIES: Edema involving upper extremities MUSCULOSKELETAL: No Joint Tenderness; NEURO: Awake; no lateralizing signs. SKIN: No Rash PSYCH; Normal affect Vitals/I&O's: Vital Signs Temp Pulse Resp BP Pulse Ox 101.9 F H 95 21 H 86/54 L 100 02/24/19 06:00 02/24/19 06:00 02/24/19 06:00 02/24/19 06:00 02/24/19 06:00 Oxygen Flow Rate (L/min) 15 Oxygen Delivery Method Bi-pap Weight: 85.5 kg Body Mass Index (BMI) 31.1 Intake and Output for Last 24 Hours 02/22/19 02/23/19 02/24/19 23:59 23:59 23:59 Intake Total 275 / 275 4229 / 4229 Output Total 1550 / 1550 Balance 275 / 275 2679 / 2679 Microbiology Past 72 Hours 02/23/19 13:24 Mucosa - Nasopharyngeal Respiratory Panel (PCR) - Final Laboratory Results 02/23/19 13:36: WBC 12.0 H, RBC 3.69 L, Hgb 10.9 L, Hct 33.2 L, MCV 90.0, MCH 29.5, MCHC 32.8, RDW 14.0, RDW Differential 46.3 H, Plt Count 160, MPV 11.5, Immature Gran % (Auto) 0.400, Neut % (Auto) 87.3 H, Lymph % (Auto) 2.6 L, [place] % (Auto) 9.6, Eos % (Auto) 0.0, Baso % (Auto) 0.1, Absolute Neuts (auto) 10.5 H, Absolute Lymphs (auto) 0.31 L, Total Counted Not Reportable, Differential Comment COMMENT 02/23/19 13:36: Sodium 133 L, Potassium 3.7, Chloride 103, Carbon Dioxide 26.0, Anion Gap 4 L, BUN 29 H, Creatinine 1.71 H, Estim Creat Clear Calc 28.58, Est GFR (MDRD) Af Amer 39 L, Est GFR (MDRD) Non-Af 32 L, BUN/Creatinine Ratio 17.0, Glucose 103, Calcium 8.7, Total Bilirubin 0.70, Direct Bilirubin 0.48 H, AST 74 H, ALT 75 H, Alkaline Phosphatase 120 H, Troponin I < 0.015, Total Protein 6.9, Albumin 2.9 L, Globulin 4.0, Lipase 92 02/23/19 13:36: Lactic Acid 2.0 02/23/19 15:10: Urine Color Straw, Urine Clarity Cloudy, Urine pH 6.0, Ur Specific [place] 1.015, Urine Protein 100 H, Urine Glucose (UA) Normal, Urine Ketones Negative, Urine Occult Blood 150 H, Urine Nitrite Negative, Urine Bilirubin Negative, Urine Urobilinogen 1 H, Ur Leukocyte Esterase 500 H, Urine RBC 0-5 SEEN, Urine WBC 25-50 SEEN, Ur Squamous Epith Cells 0-5 SEEN, Ur Renal Epithelial Cell 0-5 SEEN, Amorphous Sediment 2+, Urine Bacteria 4+, Urine Mucus 0 SEEN 02/23/19 17:59: Lactic Acid 1.7 02/24/19 03:35: WBC 3.0 L, RBC 3.26 L, Hgb 9.6 L, Hct 29.8 L, MCV 91.4, MCH 29.4, MCHC 32.2, RDW 14.3, RDW Differential 46.6 H, Plt Count 108 L, MPV 12.1 H, Immature Gran % (Auto) 0.300, Neut % (Auto) 86.5 H, Lymph % (Auto) 8.3 L, [place] % (Auto) 4.6, Eos % (Auto) 0.0, Baso % (Auto) 0.3, Absolute Neuts (auto) 2.6, Absolute Lymphs (auto) 0.25 L, Total Counted Not Reportable, Diff Path Review February02/24/19 03:35: Sodium 138, Potassium 4.2, Chloride 112 H, Carbon Dioxide 18.0 L, Anion Gap 8, BUN 32 H, Creatinine 2.20 H, Estim Creat Clear Calc 22.21, Est GFR (MDRD) Af Amer 29 L, Est GFR (MDRD) Non-Af 24 L, BUN/Creatinine Ratio 14.5, Glucose 89, Calcium 7.4 L, Total Bilirubin 0.90, Direct Bilirubin 0.75 H, AST 67 H, ALT 56, Alkaline Phosphatase 96, Total Protein 5.9 L, Albumin 2.4 L, Globulin 3.5 02/24/19 03:35: Troponin I Pending 02/24/19 03:35: B-Natriuretic Peptide Pending Current Medications Acetaminophen (Tylenol) 650 mg PO Q6H PRN PRN PRN Reason: pain/fever Last Admin: 02/24/19 04:10 Dose: 650 mg Atorvastatin Calcium (Lipitor) 20 mg PO QHS [facility] Last Admin: 02/23/19 21:39 Dose: 20 mg Dextrose (D50w Syringe) 0 gm IV X1 PRN; Protocol PRN Reason: Hypoglycemia Enoxaparin Sodium (Lovenox) 30 mg SC DAILY@0600 [facility] Last Admin: 02/24/19 04:59 Dose: 30 mg Folic Acid (Folic Acid) 1 mg PO DAILY [facility] Glucagon () 1 mg IM .X1 PRN PRN Reason: Hypoglycemia Piperacillin Sod/Tazobactam (Sod 3.375 gm/ Sodium Chloride) 50 mls @ 12.5 mls/hr IV Q8 [facility] Last Admin: 02/24/19 05:18 Dose: 12.5 mls/hr Ondansetron HCl (Zofran) 4 mg IV Q6H PRN PRN PRN Reason: NAUSEA/VOMITING Risperidone (Risperdal) 2 mg PO DAILY [facility] Sodium Chloride () 5 - 15 ml IV UD PRN PRN Reason: SALINE FLUSH Venlafaxine HCl (Effexor Xr) 75 mg PO DAILY [facility] Venlafaxine HCl (Effexor Xr) 150 mg PO DAILY [facility] Medical Necessity - Tobacco Use Smoking Status: Never smoker Tobacco Use: Non-smoker Assessment/Plan All Active Problems Chills (Acute) Lower back pain (Acute) Patient is a 63-year-old lady who presented to the emergency department with fever chills as well as back pain. Patient urinalysis was consistent with UTI. CT of the abdomen and pelvis obtained demonstrated a nonobstructing right renal stone and nonspecific perinephric inflammatory stranding. An assessment of sepsis secondary to acute pyelonephritis made admitted for subsequent management in the hospital 1. Sepsis secondary to acute pyelonephritis: Patient admitted to intensive care unit managed per protocol with aggressive IV fluids broad-spectrum antibiotic therapy (Zosyn) after cultures have been sent. Acute fluid overload from aggressive IV fluid resuscitation possibly with an underlying congestive heart failure do suspect diastolic dysfunction patient was placed on BiPAP. Echo ordered for EF assessment 3. Acute kidney injury secondary to suspected ATN from patient's sepsis patient kidney function actually did worsen 4. Acute metabolic encephalopathy secondary to sepsis and acute kidney injury 5. Dyslipidemia-patient is on statin therapy, continued at home dose 6. Hypertension patient antihypertensive medications on hold 7. Depression patient is on SNRI 8. DVT prophylaxis SC Lovenox dose adjusted for kidney function Active Medications Acetaminophen (Tylenol) 650 mg PO Q6H PRN PRN PRN Reason: pain/fever Last Admin: 02/24/19 04:10 Dose: 650 mg Atorvastatin Calcium (Lipitor) 20 mg PO QHS [facility] Last Admin: 02/23/19 21:39 Dose: 20 mg Dextrose (D50w Syringe) 0 gm IV X1 PRN; Protocol PRN Reason: Hypoglycemia Enoxaparin Sodium (Lovenox) 30 mg SC DAILY@0600 [facility] Last Admin: 02/24/19 04:59 Dose: 30 mg Folic Acid (Folic Acid) 1 mg PO DAILY [facility] Glucagon () 1 mg IM .X1 PRN PRN Reason: Hypoglycemia Piperacillin Sod/Tazobactam (Sod 3.375 gm/ Sodium Chloride) 50 mls @ 12.5 mls/hr IV Q8 [facility] Last Admin: 02/24/19 05:18 Dose: 12.5 mls/hr Ondansetron HCl (Zofran) 4 mg IV Q6H PRN PRN PRN Reason: NAUSEA/VOMITING Risperidone (Risperdal) 2 mg PO DAILY [facility] Sodium Chloride () 5 - 15 ml IV UD PRN PRN Reason: SALINE FLUSH Venlafaxine HCl (Effexor Xr) 75 mg PO DAILY [facility] Venlafaxine HCl (Effexor Xr) 150 mg PO DAILY [facility] Clinical Impression(s) from Imaging Studies Abdomen/Pelvis CT 02/23/19 13:05 IMPRESSION: No obstructive uropathy, there is a nonobstructing right renal stone and a simple right renal cyst and there is nonspecific perinephric inflammatory stranding. Fatty liver Normal appendix visualized Uterus is still present, the endometrium cannot be accurately evaluated with CT Electronically Signed: Alexander Pearl MD at 14:37 EDT , Service support , Chest X-Ray 02/23/19 13:41 IMPRESSION: Normal x-ray examination of the chest. Electronically Signed: Alexander Pearl MD at 14:24 EDT , Service support , Chest X-Ray 02/24/19 02:50 IMPRESSION: Cardiomegaly with mild central vascular congestion. No pneumonia. No pleural effusions. Electronically Signed: Keon Obando MD at 3:44 EDT Tel , Service support , Code Visit Inpatient E&M: 89883 Subs Hosp L3
--- NOTE | 2019-02-24 07:31 | PN_ITS ---
Patient Problems: Active and Suspected Problems Chills (Acute) Lower back pain (Acute) Subjective: Patient is a 63-year-old lady who presented to the emergency department with fever chills as well as back pain. Patient urinalysis was consistent with UTI. CT of the abdomen and pelvis obtained demonstrated a nonobstructing right renal stone and nonspecific perinephric inflammatory stranding. An assessment of sepsis secondary to acute pyelonephritis made admitted for subsequent management in the hospital 02/24/2019 patient went into acute respiratory distress during the night as a result of aggressive fluid resuscitation initiated because of her intention. Patient was placed on BiPAP monitored in the ICU Objective: GENERAL: on BiPAP HEENT: Atraumatic; moist oral mucosa EYES; Anicteric, Normal Conjunctiva NECK; supple, normal thyroid, no distended JVD. RESPIRATORY: Diminished to auscultation bilaterally, CARDIOVASCULAR: Regular S1 S2, no audible murmurs GI: soft, non-tender, normoactive bowel sounds, : No Renal angle tenderness; EXTREMITIES: Edema involving upper extremities MUSCULOSKELETAL: No Joint Tenderness; NEURO: Awake; no lateralizing signs. SKIN: No Rash PSYCH; Normal affect Vitals/I&O's: Vital Signs Temp Pulse Resp BP Pulse Ox 101.9 F H 95 21 H 86/54 L 100 02/24/19 06:00 02/24/19 06:00 02/24/19 06:00 02/24/19 06:00 02/24/19 06:00 Oxygen Flow Rate (L/min) 15 Oxygen Delivery Method Bi-pap Weight: 85.5 kg Body Mass Index (BMI) 31.1 Intake and Output for Last 24 Hours 02/22/19 02/23/19 02/24/19 23:59 23:59 23:59 Intake Total 275 / 275 4229 / 4229 Output Total 1550 / 1550 Balance 275 / 275 2679 / 2679 Microbiology Past 72 Hours 02/23/19 13:24 Mucosa - Nasopharyngeal Respiratory Panel (PCR) - Final Laboratory Results 02/23/19 13:36: WBC 12.0 H, RBC 3.69 L, Hgb 10.9 L, Hct 33.2 L, MCV 90.0, MCH 29.5, MCHC 32.8, RDW 14.0, RDW Differential 46.3 H, Plt Count 160, MPV 11.5, Immature Gran % (Auto) 0.400, Neut % (Auto) 87.3 H, Lymph % (Auto) 2.6 L, [place] % (Auto) 9.6, Eos % (Auto) 0.0, Baso % (Auto) 0.1, Absolute Neuts (auto) 10.5 H, Absolute Lymphs (auto) 0.31 L, Total Counted Not Reportable, Differential Comment COMMENT 02/23/19 13:36: Sodium 133 L, Potassium 3.7, Chloride 103, Carbon Dioxide 26.0, Anion Gap 4 L, BUN 29 H, Creatinine 1.71 H, Estim Creat Clear Calc 28.58, Est GFR (MDRD) Af Amer 39 L, Est GFR (MDRD) Non-Af 32 L, BUN/Creatinine Ratio 17.0, Glucose 103, Calcium 8.7, Total Bilirubin 0.70, Direct Bilirubin 0.48 H, AST 74 H, ALT 75 H, Alkaline Phosphatase 120 H, Troponin I < 0.015, Total Protein 6.9, Albumin 2.9 L, Globulin 4.0, Lipase 92 02/23/19 13:36: Lactic Acid 2.0 02/23/19 15:10: Urine Color Straw, Urine Clarity Cloudy, Urine pH 6.0, Ur Specific [place] 1.015, Urine Protein 100 H, Urine Glucose (UA) Normal, Urine Ketones Negative, Urine Occult Blood 150 H, Urine Nitrite Negative, Urine Bilirubin Negative, Urine Urobilinogen 1 H, Ur Leukocyte Esterase 500 H, Urine RBC 0-5 SEEN, Urine WBC 25-50 SEEN, Ur Squamous Epith Cells 0-5 SEEN, Ur Renal Epithelial Cell 0-5 SEEN, Amorphous Sediment 2+, Urine Bacteria 4+, Urine Mucus 0 SEEN 02/23/19 17:59: Lactic Acid 1.7 02/24/19 03:35: WBC 3.0 L, RBC 3.26 L, Hgb 9.6 L, Hct 29.8 L, MCV 91.4, MCH 29.4, MCHC 32.2, RDW 14.3, RDW Differential 46.6 H, Plt Count 108 L, MPV 12.1 H, Immature Gran % (Auto) 0.300, Neut % (Auto) 86.5 H, Lymph % (Auto) 8.3 L, [place] % (Auto) 4.6, Eos % (Auto) 0.0, Baso % (Auto) 0.3, Absolute Neuts (auto) 2.6, Absolute Lymphs (auto) 0.25 L, Total Counted Not Reportable, Diff Path Review February02/24/19 03:35: Sodium 138, Potassium 4.2, Chloride 112 H, Carbon Dioxide 18.0 L , Anion Gap 8, BUN 32 H, Creatinine 2.20 H, Estim Creat Clear Calc 22.21, Est GFR (MDRD) Af Amer 29 L, Est GFR (MDRD) Non-Af 24 L, BUN/Creatinine Ratio 14.5, Glucose 89, Calcium 7.4 L, Total Bilirubin 0.90, Direct Bilirubin 0.75 H, AST 67 H, ALT 56, Alkaline Phosphatase 96, Total Protein 5.9 L, Albumin 2.4 L, Globulin 3.5 02/24/19 03:35: Troponin I Pending 02/24/19 03:35: B-Natriuretic Peptide Pending Current Medications Acetaminophen (Tylenol) 650 mg PO Q6H PRN PRN PRN Reason: pain/fever Last Admin: 02/24/19 04:10 Dose: 650 mg Atorvastatin Calcium (Lipitor) 20 mg PO QHS [facility] Last Admin: 02/23/19 21:39 Dose: 20 mg Dextrose (D50w Syringe) 0 gm IV X1 PRN; Protocol PRN Reason: Hypoglycemia Enoxaparin Sodium (Lovenox) 30 mg SC DAILY@0600 [facility] Last Admin: 02/24/19 04:59 Dose: 30 mg Folic Acid (Folic Acid) 1 mg PO DAILY [facility] Glucagon () 1 mg IM .X1 PRN PRN Reason: Hypoglycemia Piperacillin Sod/Tazobactam (Sod 3.375 gm/ Sodium Chloride) 50 mls @ 12.5 mls/hr IV Q8 [facility] Last Admin: 02/24/19 05:18 Dose: 12.5 mls/hr Ondansetron HCl (Zofran) 4 mg IV Q6H PRN PRN PRN Reason: NAUSEA/VOMITING Risperidone (Risperdal) 2 mg PO DAILY [facility] Sodium Chloride () 5 - 15 ml IV UD PRN PRN Reason: SALINE FLUSH Venlafaxine HCl (Effexor Xr) 75 mg PO DAILY [facility] Venlafaxine HCl (Effexor Xr) 150 mg PO DAILY [facility] Medical Necessity - Tobacco Use Smoking Status: Never smoker Tobacco Use: Non-smoker Assessment/Plan All Active Problems Chills (Acute) Lower back pain (Acute) Patient is a 63-year-old lady who presented to the emergency department with fever chills as well as back pain. Patient urinalysis was consistent with UTI. CT of the abdomen and pelvis obtained demonstrated a nonobstructing right renal stone and nonspecific perinephric inflammatory stranding. An assessment of sepsis secondary to acute pyelonephritis made admitted for subsequent management in the hospital 1. Sepsis secondary to acute pyelonephritis: Patient admitted to intensive care unit managed per protocol with aggressive IV fluids broad-spectrum antibiotic therapy (Zosyn) after cultures have been sent. Acute fluid overload from aggressive IV fluid resuscitation possibly with an underlying congestive heart failure do suspect diastolic dysfunction patient was placed on BiPAP. Echo ordered for EF assessment 3. Acute kidney injury secondary to suspected ATN from patient's sepsis patient kidney function actually did worsen 4. Acute metabolic encephalopathy secondary to sepsis and acute kidney injury 5. Dyslipidemia-patient is on statin therapy, continued at home dose 6. Hypertension patient antihypertensive medications on hold 7. Depression patient is on SNRI 8. DVT prophylaxis SC Lovenox dose adjusted for kidney function Active Medications Acetaminophen (Tylenol) 650 mg PO Q6H PRN PRN PRN Reason: pain/fever Last Admin: 02/24/19 04:10 Dose: 650 mg Atorvastatin Calcium (Lipitor) 20 mg PO QHS [facility] Last Admin: 02/23/19 21:39 Dose: 20 mg Dextrose (D50w Syringe) 0 gm IV X1 PRN; Protocol PRN Reason: Hypoglycemia Enoxaparin Sodium (Lovenox) 30 mg SC DAILY@0600 [facility] Last Admin: 02/24/19 04:59 Dose: 30 mg Folic Acid (Folic Acid) 1 mg PO DAILY [facility] Glucagon () 1 mg IM .X1 PRN PRN Reason: Hypoglycemia Piperacillin Sod/Tazobactam (Sod 3.375 gm/ Sodium Chloride) 50 mls @ 12.5 mls/hr IV Q8 [facility] Last Admin: 02/24/19 05:18 Dose: 12.5 mls/hr Ondansetron HCl (Zofran) 4 mg IV Q6H PRN PRN PRN Reason: NAUSEA/VOMITING Risperidone (Risperdal) 2 mg PO DAILY [facility] Sodium Chloride () 5 - 15 ml IV UD PRN PRN Reason: SALINE FLUSH Venlafaxine HCl (Effexor Xr) 75 mg PO DAILY [facility] Venlafaxine HCl (Effexor Xr) 150 mg PO DAILY [facility] Clinical Impression(s) from Imaging Studies Abdomen/Pelvis CT 02/23/19 13:05 IMPRESSION: No obstructive uropathy, there is a nonobstructing right renal stone and a simple right renal cyst and there is nonspecific perinephric inflammatory stranding. Fatty liver Normal appendix visualized Uterus is still present, the endometrium cannot be accurately evaluated with CT Electronically Signed: Alexander Pearl MD at 14:37 EDT , Service support , Chest X-Ray 02/23/19 13:41 IMPRESSION: Normal x-ray examination of the chest. Electronically Signed: Alexander Pearl MD at 14:24 EDT , Service support , Chest X-Ray 02/24/19 02:50 IMPRESSION: Cardiomegaly with mild central vascular congestion. No pneumonia. No pleural effusions. Electronically Signed: Keon Obando MD at 3:44 EDT Tel , Service support , Code Visit Inpatient E&M: 67717 Subs Hosp L3
[2019-02-24 08:52] LABS: BNP,B-Type NATRIURETIC PEPTIDE 219.9 pg/mL (0-100)
--- NOTE | 2019-02-24 09:49 | CASEMGMT ---
RN CM Assessment Presentation: Sepsis, pyelonephritis. Intro role of CM and purpose of RN CM assessment to patient and daughter in room. Pt is [place] but is able to read lips. RN CM allowed time to repeat any statements and questions. Demographics, PCP and Pharmacy verified. PCP: Dr. Juvencio Davila [facility] Insurance: [employer] Prescription Benefit: yes LNOK: Sanya Joseph, Living Arrangements: Lives in one story home, states she is independent in ADL, able to household activities. Daughter states she was very weak prior to admission and had difficulty walking. Per patient and her daughter, this was a recent occurrence since pt became ill. RN CM spoke with pt re: PT/OT will do evaluation and will work with her daily. If pt has needs on dc, can evaluate for SNF or Home Health. Transportation: drives DME: CPAP HHC: none Patient DC goals: Home DC PLAN: anticipate home. PT/OT evals pending. Pt was independent prior to this illness. Blanche REGALADO RN ACM
[2019-02-24] MEDS: Venlafaxine XR 75 MG Capsule PO (10:54)
[2019-02-24] MEDS: RisperiDONE 2 MG Tablet PO (10:54)
[2019-02-24] MEDS: Venlafaxine XR 150 MG Capsule PO (10:54)
[2019-02-24] MEDS: Folic Acid 1 MG Tablet PO (10:57)
[2019-02-24 12:09] LABS: M R Staph aureus DNA By PCR Negative (Negative); Probe Check PASS; Specimen Processing Control PASS
[2019-02-24 15:26] LABS: Pathologist Review Reviewed
[2019-02-24] MEDS: Atorvastatin Calcium 20 MG Tablet PO (21:11)
[2019-02-25] VITALS (20 sets, daily range): BP systolic 99–127; BP diastolic 47–63; PULSE 75–100; RESP 17–33; TEMP 37.1–38.4; O2SAT 94–98
[2019-02-25 04:18] LABS: Absolute Lymphocyte Count 1.06 X10^3/ul (0.83-4.51); Absolute Neutrophil Count 7.5 X10^3/uL (2.0-7.7); Basophil# 0.02 X10^3/uL; Basophil% 0.2 % (0-1); Differential Indicated SCAN CRITERIA MET; Eosinophil# 0.06 X10^3/uL; Eosinophils% 0.6 % (0-5); Hematocrit 27.3 % (37-47); Hemoglobin 8.7 g/dl (12.0-15.0); Lymphocyte # 1.06 X10^3/ul (4.0); Lymphocyte % 10.3 % (19-41); Mean Corp Hgb Conc 31.9 g/gl (32-36); Mean Corpuscular Hgb 28.6 pg (27.0-32.0); Mean Corpuscular Volume 89.8 fL (81-99); Mean Platelet Vol. 11.3 fl (6.2-12.0); Monocyte# 1.51 X10^3/uL; Monocyte% 14.7 % (0-10); Neutrophil # 7.53 X10^3/uL (2.7-7.7); Neutrophil % 73.3 % (47-70); POSITIVE COUNT NO; POSITIVE DIFFERENTIAL YES; POSITIVE MORPHOLOGY YES; Platelet Count 130 K/mm3 (150-450); RBC Distribution Width CV 14.9 % (11.6-14.6); RBC Distribution Width SD 47.8 fl (35.1-43.9); Red Blood Count 3.04 M/mm3 (4.2-5.4); White Blood Count 10.3 K/mm3 (4.4-11.0)
[2019-02-25 04:28] LABS: Anion Gap 8 (5-15); BUN 33 mg/dL (7-18); BUN/Creat Ratio 18.8 RATIO (10-20); Chloride 112 mmol/L (98-107); Creatinine, Serum 1.76 mg/dL (0.55-1.02); EST Glomerular Filtration Rate 31 mL/min (>60); Est Glom Filt Rate - Afr Amer 38 mL/min (>60); Estimated Creatinine Clearance 27.77 ml/min; Glucose 118 mg/dL (74-106); Magnesium 2.1 mg/dL (1.6-2.6); Potassium 3.6 mmol/L (3.5-5.1); Sodium Level 142 mmol/L (136-145)
[2019-02-25 04:29] LABS: Calcium,Total 8.6 mg/dL (8.5-10.1)
[2019-02-25] MEDS: Enoxaparin 30 MG/0.3 ML Syringe SC (05:48)
[2019-02-25] MEDS: Acetaminophen 325 MG Tablet 650 MG PO ×2 (06:15→17:23)
--- NOTE | 2019-02-25 06:35 | PCM.PN.INT ---
Subjective: The patient was seen and examined at the bedside this morning. Events from the last 24 hours have been reviewed. The patient was febrile overnight with a T-max of 101.5 ?F. She has, nevertheless, remained hemodynamically stable and is currently maintaining appropriate oxygen saturations on room air. The patient was maintained on her home CPAP overnight. Creatinine is improved this morning. The patient reports a mild degree of abdominal discomfort. However, she has been tolerating p.o. intake. Objective: The patient's most recent lab work, culture data and imaging studies have all been personally reviewed. Urine culture was positive for E. coli. Surface echocardiogram revealed mild global LV systolic dysfunction with an ejection fraction of 40%. There was evidence of diastolic dysfunction as well. General: Alert, Cooperative, No apparent distress HEENT: Atraumatic, PERRLA, Normocephalic Oral: No Gingival or Mucosal Lesions/ Ulcerations Neck: Supple, No Nodes, Trachea Midline Lungs: No rhonchi, No wheeze, No rales, Diminished Cardiovascular: Regular rate, Regular Rhythm, Normal S1, Normal S2, No murmurs Abdomen: Bowel Sounds Present, Soft, Non-Distended Extremities: No clubbing, No cyanosis, Edema Skin: No breakdown Musculoskeletal: No Muscle Wasting Lymphatic: No Cervical, Supraclavicular, or Inguinal Adenopathy Neurological: Cranial nerves II-XII grossly intact, Neuro grossly intact Psych/Mental Status: Normal Affect, Appropriate Vital Signs Temp Pulse Resp BP Pulse Ox 101.1 F H 82 20 H 122/61 H 96 02/25/19 06:00 02/25/19 06:00 02/25/19 06:00 02/25/19 06:00 02/25/19 06:00 Oxygen Flow Rate (L/min) 2 Oxygen Delivery Method Room Air Weight: 184 lb 1.376 oz Body Mass Index (BMI) 31.1 Intake and Output for Last 24 Hours 02/23/19 02/24/19 02/25/19 23:59 23:59 23:59 Intake Total 275 / 275 6288.1 / 6288.1 243.1 / 243.1 Output Total 4100 / 4100 700 / 700 Balance 275 / 275 2188.1 / 2188.1 -456.9 / -456.9 Labs (Last 48 Hours) 02/23/19 02/23/19 02/23/19 13:36 13:36 13:36 WBC 12.0 H RBC 3.69 L Hgb 10.9 L Hct 33.2 L MCV 90.0 MCH 29.5 MCHC 32.8 RDW 14.0 RDW Differential 46.3 H Plt Count 160 MPV 11.5 Immature Gran % (Auto) 0.400 Neut % (Auto) 87.3 H Lymph % (Auto) 2.6 L [place] % (Auto) 9.6 Eos % (Auto) 0.0 Baso % (Auto) 0.1 Absolute Neuts (auto) 10.5 H Absolute Lymphs (auto) 0.31 L Total Counted Not Reportable Differential Comment COMMENT Diff Path Review Sodium 133 L Potassium 3.7 Chloride 103 Carbon Dioxide 26.0 Anion Gap 4 L BUN 29 H Creatinine 1.71 H Estim Creat Clear Calc 28.58 Est GFR (MDRD) Af Amer 39 L Est GFR (MDRD) Non-Af 32 L BUN/Creatinine Ratio 17.0 Glucose 103 Lactic Acid 2.0 Calcium 8.7 Magnesium Total Bilirubin 0.70 Direct Bilirubin 0.48 H AST 74 H ALT 75 H Alkaline Phosphatase 120 H Troponin I < 0.015 B-Natriuretic Peptide Total Protein 6.9 Albumin 2.9 L Globulin 4.0 Lipase 92 Urine Color Urine Clarity Urine pH Ur Specific [place] Urine Protein Urine Glucose (UA) Urine Ketones Urine Occult Blood Urine Nitrite Urine Bilirubin Urine Urobilinogen Ur Leukocyte Esterase Urine RBC Urine WBC Ur Squamous Epith Cells Ur Renal Epithelial Cell Amorphous Sediment Urine Bacteria Urine Mucus MRSA (PCR) 02/23/19 02/23/19 02/24/19 15:10 17:59 03:35 WBC 3.0 L RBC 3.26 L Hgb 9.6 L Hct 29.8 L MCV 91.4 MCH 29.4 MCHC 32.2 RDW 14.3 RDW Differential 46.6 H Plt Count 108 L MPV 12.1 H Immature Gran % (Auto) 0.300 Neut % (Auto) 86.5 H Lymph % (Auto) 8.3 L [place] % (Auto) 4.6 Eos % (Auto) 0.0 Baso % (Auto) 0.3 Absolute Neuts (auto) 2.6 Absolute Lymphs (auto) 0.25 L Total Counted Not Reportable Differential Comment Diff Path Review Reviewed Sodium Potassium Chloride Carbon Dioxide Anion Gap BUN Creatinine Estim Creat Clear Calc Est GFR (MDRD) Af Amer Est GFR (MDRD) Non-Af BUN/Creatinine Ratio Glucose Lactic Acid 1.7 Calcium Magnesium Total Bilirubin Direct Bilirubin AST ALT Alkaline Phosphatase Troponin I B-Natriuretic Peptide Total Protein Albumin Globulin Lipase Urine Color Straw Urine Clarity Cloudy Urine pH 6.0 Ur Specific [place] 1.015 Urine Protein 100 H Urine Glucose (UA) Normal Urine Ketones Negative Urine Occult Blood 150 H Urine Nitrite Negative Urine Bilirubin Negative Urine Urobilinogen 1 H Ur Leukocyte Esterase 500 H Urine RBC 0-5 SEEN Urine WBC 25-50 SEEN Ur Squamous Epith Cells 0-5 SEEN Ur Renal Epithelial Cell 0-5 SEEN Amorphous Sediment 2+ Urine Bacteria 4+ Urine Mucus 0 SEEN MRSA (PCR) 02/24/19 02/24/19 02/24/19 03:35 03:35 03:35 WBC RBC Hgb Hct MCV MCH MCHC RDW RDW Differential Plt Count MPV Immature Gran % (Auto) Neut % (Auto) Lymph % (Auto) [place] % (Auto) Eos % (Auto) Baso % (Auto) Absolute Neuts (auto) Absolute Lymphs (auto) Total Counted Differential Comment Diff Path Review Sodium 138 Potassium 4.2 Chloride 112 H Carbon Dioxide 18.0 L Anion Gap 8 BUN 32 H Creatinine 2.20 H Estim Creat Clear Calc 22.21 Est GFR (MDRD) Af Amer 29 L Est GFR (MDRD) Non-Af 24 L BUN/Creatinine Ratio 14.5 Glucose 89 Lactic Acid Calcium 7.4 L Magnesium Total Bilirubin 0.90 Direct Bilirubin 0.75 H AST 67 H ALT 56 Alkaline Phosphatase 96 Troponin I 0.303 H B-Natriuretic Peptide 219.9 H Total Protein 5.9 L Albumin 2.4 L Globulin 3.5 Lipase Urine Color Urine Clarity Urine pH Ur Specific [place] Urine Protein Urine Glucose (UA) Urine Ketones Urine Occult Blood Urine Nitrite Urine Bilirubin Urine Urobilinogen Ur Leukocyte Esterase Urine RBC Urine WBC Ur Squamous Epith Cells Ur Renal Epithelial Cell Amorphous Sediment Urine Bacteria Urine Mucus MRSA (PCR) 02/24/19 02/25/19 02/25/19 07:10 04:05 04:05 WBC 10.3 RBC 3.04 L Hgb 8.7 L Hct 27.3 L MCV 89.8 MCH 28.6 MCHC 31.9 L RDW 14.9 H RDW Differential 47.8 H Plt Count 130 L MPV 11.3 Immature Gran % (Auto) 0.900 Neut % (Auto) 73.3 H Lymph % (Auto) 10.3 L [place] % (Auto) 14.7 H Eos % (Auto) 0.6 Baso % (Auto) 0.2 Absolute Neuts (auto) 7.5 Absolute Lymphs (auto) 1.06 Total Counted Not Reportable Differential Comment Diff Path Review Sodium 142 Potassium 3.6 Chloride 112 H Carbon Dioxide 22.0 Anion Gap 8 BUN 33 H Creatinine 1.76 H Estim Creat Clear Calc 27.77 Est GFR (MDRD) Af Amer 38 L Est GFR (MDRD) Non-Af 31 L BUN/Creatinine Ratio 18.8 Glucose 118 H Lactic Acid Calcium 8.6 Magnesium 2.1 Total Bilirubin Direct Bilirubin AST ALT Alkaline Phosphatase Troponin I B-Natriuretic Peptide Total Protein Albumin Globulin Lipase Urine Color Urine Clarity Urine pH Ur Specific [place] Urine Protein Urine Glucose (UA) Urine Ketones Urine Occult Blood Urine Nitrite Urine Bilirubin Urine Urobilinogen Ur Leukocyte Esterase Urine RBC Urine WBC Ur Squamous Epith Cells Ur Renal Epithelial Cell Amorphous Sediment Urine Bacteria Urine Mucus MRSA (PCR) Negative Microbiology 02/23/19 15:10 Urine, Clean Catch Urine Culture - Preliminary Presumptive E. coli 02/23/19 13:24 Mucosa - Nasopharyngeal Respiratory Panel (PCR) - Final Clinical Impression(s) from Imaging Studies Abdomen/Pelvis CT 02/23/19 13:05 IMPRESSION: No obstructive uropathy, there is a nonobstructing right renal stone and a simple right renal cyst and there is nonspecific perinephric inflammatory stranding. Fatty liver Normal appendix visualized Uterus is still present, the endometrium cannot be accurately evaluated with CT Electronically Signed: Alexander Pearl MD at 14:37 EDT , Service support , Chest X-Ray 02/23/19 13:41 IMPRESSION: Normal x-ray examination of the chest. Electronically Signed: Alexander Pearl MD at 14:24 EDT , Service support , Chest X-Ray 02/24/19 02:50 IMPRESSION: Cardiomegaly with mild central vascular congestion. No pneumonia. No pleural effusions. Electronically Signed: Keon Obando MD at 3:44 EDT Tel , Service support , Medical Necessity - Tobacco Use Smoking Status: Never smoker Tobacco Use: Non-smoker Assessment/Plan All Active Problems Chills (Acute) Lower back pain (Acute) RECOMMENDATIONS: 1. Transition to meropenem, given ESBL E. coli isolated from cultures. 2. Obtain repeat blood cultures. 3. Continue nocturnal CPAP therapy per home regimen. 4. Encourage incentive spirometer use and mobilize patient as tolerated. 5. Physical therapy to evaluate patient today. IMPRESSIONS: 1. Acute hypoxemic respiratory failure The patient's etiology for her decompensation was likely the consequence of overzealous volume resuscitation coupled with the development of a tachyarrhythmia, leading to flash pulmonary edema. The patient has responded appropriately to the use of BiPAP therapy. The patient is no longer requiring noninvasive positive pressure ventilatory support. In fact, she is maintaining appropriate oxygen saturations on room air. Recommend continuing nocturnal CPAP therapy for underlying TERESA, per home regimen. Encourage incentive spirometer use and mobilize patient as tolerated. 2. Severe sepsis secondary to gram-negative pyelonephritis/bacteremia The patient was more than adequately volume resuscitated. She does appear to be growing ESBL E. coli. Therefore, we will plan to transition her to meropenem. We will also obtain repeat blood cultures. 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 We will continue to monitor accordingly. 4. Acute kidney injury Improving. Likely secondary to ATN in the setting of #2. We will continue to monitor urine output accordingly. 5. Obstructive sleep apnea The patient has a self-reported history of obstructive sleep apnea, for which she utilizes nocturnal Pap therapy. Therefore, nocturnal CPAP therapy will be continued per home regimen. 6. Hypertension/hyperlipidemia/depression Complicates care, management, recovery and prognosis. Continue to hold home antihypertensive regimen for now. This note was generated with [employer] software. It may contain incorrect words, spelling, and punctuation that were not noted in checking the note before signing. DISPOSITION: The patient is medically stable for transfer out of the intensive care unit. Code Visit Inpatient E&M: 06988 Subs Hosp L3
--- NOTE | 2019-02-25 07:53 | PCM.PN.HOSP ---
Patient Problems: Active and Suspected Problems Chills (Acute) Lower back pain (Acute) Subjective: Patient seen remains in the ICU patient blood cultures so far positive for gram negative organisms. Urine cultures came back positive for E. coli. Patient has had a drop in her hemoglobin to 8.6, creatinine remains elevated at 1.77 Objective: GENERAL: off BiPAP HEENT: Atraumatic; moist oral mucosa EYES; Anicteric, Normal Conjunctiva NECK; supple, normal thyroid, no distended JVD. RESPIRATORY: Diminished to auscultation bilaterally, CARDIOVASCULAR: Regular S1 S2, no audible murmurs GI: soft, non-tender, normoactive bowel sounds, : No Renal angle tenderness; EXTREMITIES: Edema involving upper extremities MUSCULOSKELETAL: No Joint Tenderness; NEURO: Awake; no lateralizing signs. SKIN: No Rash PSYCH; Normal affect Vitals/I&O's: Vital Signs Temp Pulse Resp BP Pulse Ox 101.1 F H 82 20 H 122/61 H 96 02/25/19 06:00 02/25/19 06:00 02/25/19 06:00 02/25/19 06:00 02/25/19 06:00 Oxygen Flow Rate (L/min) 2 Oxygen Delivery Method Room Air Weight: 83.5 kg Body Mass Index (BMI) 31.1 Intake and Output for Last 24 Hours 02/23/19 02/24/19 02/25/19 23:59 23:59 23:59 Intake Total 275 / 275 6288.1 / 6288.1 243.1 / 243.1 Output Total 4100 / 4100 700 / 700 Balance 275 / 275 2188.1 / 2188.1 -456.9 / -456.9 Microbiology Past 72 Hours 02/24/19 06:55 Blood Culture (Wb) - Anticubital Right Blood Culture - Preliminary GNR lactose parking attendant 02/23/19 15:10 Urine, Clean Catch Urine Culture - Preliminary Presumptive E. coli 02/23/19 13:24 Mucosa - Nasopharyngeal Respiratory Panel (PCR) - Final Laboratory Results 02/24/19 03:35: Diff Path Review Reviewed 02/24/19 03:35: B-Natriuretic Peptide 219.9 H 02/24/19 07:10: MRSA (PCR) Negative 02/25/19 04:05: WBC 10.3, RBC 3.04 L, Hgb 8.7 L, Hct 27.3 L, MCV 89.8, MCH 28.6, MCHC 31.9 L, RDW 14.9 H, RDW Differential 47.8 H, Plt Count 130 L, MPV 11.3, Immature Gran % (Auto) 0.900, Neut % (Auto) 73.3 H, Lymph % (Auto) 10.3 L, [place] % (Auto) 14.7 H, Eos % (Auto) 0.6, Baso % (Auto) 0.2, Absolute Neuts (auto) 7.5, Absolute Lymphs (auto) 1.06, Total Counted Not Reportable 02/25/19 04:05: Sodium 142, Potassium 3.6, Chloride 112 H, Carbon Dioxide 22.0, Anion Gap 8, BUN 33 H, Creatinine 1.76 H, Estim Creat Clear Calc 27.77, Est GFR (MDRD) Af Amer 38 L, Est GFR (MDRD) Non-Af 31 L, BUN/Creatinine Ratio 18.8, Glucose 118 H, Calcium 8.6, Magnesium 2.1 Current Medications Acetaminophen (Tylenol) 650 mg PO Q6H PRN PRN PRN Reason: pain/fever Last Admin: 02/25/19 06:15 Dose: 650 mg Atorvastatin Calcium (Lipitor) 20 mg PO QHS [facility] Last Admin: 02/24/19 21:11 Dose: 20 mg Dextrose (D50w Syringe) 0 gm IV X1 PRN; Protocol PRN Reason: Hypoglycemia Enoxaparin Sodium (Lovenox) 30 mg SC DAILY@0600 [facility] Last Admin: 02/25/19 05:48 Dose: 30 mg Folic Acid (Folic Acid) 1 mg PO DAILY [facility] Last Admin: 02/24/19 10:57 Dose: 1 mg Glucagon () 1 mg IM .X1 PRN PRN Reason: Hypoglycemia Piperacillin Sod/Tazobactam (Sod 3.375 gm/ Sodium Chloride) 50 mls @ 12.5 mls/hr IV Q8 [facility] Last Admin: 02/25/19 05:48 Dose: 12.5 mls/hr Nutritional Formula (Lactose Free) (Ensure Enlive) 120 ml PO 4X/DAY [facility] Last Admin: 02/24/19 21:11 Dose: 120 ml Ondansetron HCl (Zofran) 4 mg IV Q6H PRN PRN PRN Reason: NAUSEA/VOMITING Risperidone (Risperdal) 2 mg PO DAILY [facility] Last Admin: 02/24/19 10:54 Dose: 2 mg Sodium Chloride () 5 - 15 ml IV UD PRN PRN Reason: SALINE FLUSH Venlafaxine HCl (Effexor Xr) 75 mg PO DAILY [facility] Last Admin: 02/24/19 10:54 Dose: 75 mg Venlafaxine HCl (Effexor Xr) 150 mg PO DAILY [facility] Last Admin: 02/24/19 10:54 Dose: 150 mg Medical Necessity - Tobacco Use Smoking Status: Never smoker Tobacco Use: Non-smoker Assessment/Plan All Active Problems Chills (Acute) Lower back pain (Acute) Patient is a 63-year-old lady who presented to the emergency department with fever chills as well as back pain. Patient urinalysis was consistent with UTI. CT of the abdomen and pelvis obtained demonstrated a nonobstructing right renal stone and nonspecific perinephric inflammatory stranding. An assessment of sepsis secondary to acute pyelonephritis made admitted for subsequent management in the hospital 1. Sepsis secondary to acute pyelonephritis with E. coli with subsequent bacteremia.: Patient admitted to intensive care unit managed per protocol with aggressive IV fluids broad-spectrum antibiotic therapy (Zosyn) after cultures have been sent. 2. Acute congestive heart failure with reduced ejection fraction. EF was 40% on echo obtained on 02/24/2019. Patient EF was attributed to acute fluid overload from aggressive IV fluid resuscitation p 3. Acute kidney injury secondary to suspected ATN from patient's sepsis patient kidney function actually did worsen; his creatinine down to 1.77 4. Acute metabolic encephalopathy secondary to sepsis and acute kidney injury: Acute delirium resolved 5. Dyslipidemia-patient is on statin therapy, continued at home dose 6. Hypertension patient antihypertensive medications on hold 7. Depression patient is on SNRI 8. DVT prophylaxis SC Lovenox dose adjusted for kidney function Microbiology 02/24/19 06:55 Blood Culture - Preliminary Blood Culture (Wb) - Anticubital Right GNR lactose parking attendant 02/23/19 15:10 Urine Culture - Preliminary Urine, Clean Catch Presumptive E. coli 02/23/19 13:24 Respiratory Panel (PCR) - Final Mucosa - Nasopharyngeal Code Visit Inpatient E&M: 46546 Subs Hosp L3
--- NOTE | 2019-02-25 07:56 | PN_ITS ---
Patient Problems: Active and Suspected Problems Chills (Acute) Lower back pain (Acute) Subjective: Patient seen remains in the ICU patient blood cultures so far positive for gram negative organisms. Urine cultures came back positive for E. coli. Patient has had a drop in her hemoglobin to 8.6, creatinine remains elevated at 1.77 Objective: GENERAL: off BiPAP HEENT: Atraumatic; moist oral mucosa EYES; Anicteric, Normal Conjunctiva NECK; supple, normal thyroid, no distended JVD. RESPIRATORY: Diminished to auscultation bilaterally, CARDIOVASCULAR: Regular S1 S2, no audible murmurs GI: soft, non-tender, normoactive bowel sounds, : No Renal angle tenderness; EXTREMITIES: Edema involving upper extremities MUSCULOSKELETAL: No Joint Tenderness; NEURO: Awake; no lateralizing signs. SKIN: No Rash PSYCH; Normal affect Vitals/I&O's: Vital Signs Temp Pulse Resp BP Pulse Ox 101.1 F H 82 20 H 122/61 H 96 02/25/19 06:00 02/25/19 06:00 02/25/19 06:00 02/25/19 06:00 02/25/19 06:00 Oxygen Flow Rate (L/min) 2 Oxygen Delivery Method Room Air Weight: 83.5 kg Body Mass Index (BMI) 31.1 Intake and Output for Last 24 Hours 02/23/19 02/24/19 02/25/19 23:59 23:59 23:59 Intake Total 275 / 275 6288.1 / 6288.1 243.1 / 243.1 Output Total 4100 / 4100 700 / 700 Balance 275 / 275 2188.1 / 2188.1 -456.9 / -456.9 Microbiology Past 72 Hours 02/24/19 06:55 Blood Culture (Wb) - Anticubital Right Blood Culture - Preliminary GNR lactose barrel lathe operator inside 02/23/19 15:10 Urine, Clean Catch Urine Culture - Preliminary Presumptive E. coli 02/23/19 13:24 Mucosa - Nasopharyngeal Respiratory Panel (PCR) - Final Laboratory Results 02/24/19 03:35: Diff Path Review Reviewed 02/24/19 03:35: B-Natriuretic Peptide 219.9 H 02/24/19 07:10: MRSA (PCR) Negative 02/25/19 04:05: WBC 10.3, RBC 3.04 L, Hgb 8.7 L, Hct 27.3 L, MCV 89.8, MCH 28.6, MCHC 31.9 L, RDW 14.9 H, RDW Differential 47.8 H, Plt Count 130 L, MPV 11.3, Immature Gran % (Auto) 0.900, Neut % (Auto) 73.3 H, Lymph % (Auto) 10.3 L, [place] % (Auto) 14.7 H, Eos % (Auto) 0.6, Baso % (Auto) 0.2, Absolute Neuts (auto) 7.5, Absolute Lymphs (auto) 1.06, Total Counted Not Reportable 02/25/19 04:05: Sodium 142, Potassium 3.6, Chloride 112 H, Carbon Dioxide 22.0, Anion Gap 8, BUN 33 H, Creatinine 1.76 H, Estim Creat Clear Calc 27.77, Est GFR (MDRD) Af Amer 38 L, Est GFR (MDRD) Non-Af 31 L, BUN/Creatinine Ratio 18.8, Glucose 118 H, Calcium 8.6, Magnesium 2.1 Current Medications Acetaminophen (Tylenol) 650 mg PO Q6H PRN PRN PRN Reason: pain/fever Last Admin: 02/25/19 06:15 Dose: 650 mg Atorvastatin Calcium (Lipitor) 20 mg PO QHS [facility] Last Admin: 02/24/19 21:11 Dose: 20 mg Dextrose (D50w Syringe) 0 gm IV X1 PRN; Protocol PRN Reason: Hypoglycemia Enoxaparin Sodium (Lovenox) 30 mg SC DAILY@0600 [facility] Last Admin: 02/25/19 05:48 Dose: 30 mg Folic Acid (Folic Acid) 1 mg PO DAILY [facility] Last Admin: 02/24/19 10:57 Dose: 1 mg Glucagon () 1 mg IM .X1 PRN PRN Reason: Hypoglycemia Piperacillin Sod/Tazobactam (Sod 3.375 gm/ Sodium Chloride) 50 mls @ 12.5 mls/hr IV Q8 [facility] Last Admin: 02/25/19 05:48 Dose: 12.5 mls/hr Nutritional Formula (Lactose Free) (Ensure Enlive) 120 ml PO 4X/DAY [facility] Last Admin: 02/24/19 21:11 Dose: 120 ml Ondansetron HCl (Zofran) 4 mg IV Q6H PRN PRN PRN Reason: NAUSEA/VOMITING Risperidone (Risperdal) 2 mg PO DAILY [facility] Last Admin: 02/24/19 10:54 Dose: 2 mg Sodium Chloride () 5 - 15 ml IV UD PRN PRN Reason: SALINE FLUSH Venlafaxine HCl (Effexor Xr) 75 mg PO DAILY [facility] Last Admin: 02/24/19 10:54 Dose: 75 mg Venlafaxine HCl (Effexor Xr) 150 mg PO DAILY [facility] Last Admin: 02/24/19 10:54 Dose: 150 mg Medical Necessity - Tobacco Use Smoking Status: Never smoker Tobacco Use: Non-smoker Assessment/Plan All Active Problems Chills (Acute) Lower back pain (Acute) Patient is a 63-year-old lady who presented to the emergency department with fever chills as well as back pain. Patient urinalysis was consistent with UTI. CT of the abdomen and pelvis obtained demonstrated a nonobstructing right renal stone and nonspecific perinephric inflammatory stranding. An assessment of sepsis secondary to acute pyelonephritis made admitted for subsequent management in the hospital 1. Sepsis secondary to acute pyelonephritis with E. coli with subsequent bacteremia.: Patient admitted to intensive care unit managed per protocol with aggressive IV fluids broad-spectrum antibiotic therapy (Zosyn) after cultures have been sent. 2. Acute congestive heart failure with reduced ejection fraction. EF was 40% on echo obtained on 02/24/2019. Patient EF was attributed to acute fluid overload from aggressive IV fluid resuscitation p 3. Acute kidney injury secondary to suspected ATN from patient's sepsis patient kidney function actually did worsen; his creatinine down to 1.77 4. Acute metabolic encephalopathy secondary to sepsis and acute kidney injury: Acute delirium resolved 5. Dyslipidemia-patient is on statin therapy, continued at home dose 6. Hypertension patient antihypertensive medications on hold 7. Depression patient is on SNRI 8. DVT prophylaxis SC Lovenox dose adjusted for kidney function Microbiology 02/24/19 06:55 Blood Culture - Preliminary Blood Culture (Wb) - Anticubital Right GNR lactose barrel lathe operator inside 02/23/19 15:10 Urine Culture - Preliminary Urine, Clean Catch Presumptive E. coli 02/23/19 13:24 Respiratory Panel (PCR) - Final Mucosa - Nasopharyngeal Code Visit Inpatient E&M: 18381 Subs Hosp L3
[2019-02-25] MEDS: Venlafaxine XR 150 MG Capsule PO (09:24)
[2019-02-25] MEDS: RisperiDONE 2 MG Tablet PO (09:24)
[2019-02-25] MEDS: Venlafaxine XR 75 MG Capsule PO (09:24)
[2019-02-25] MEDS: Folic Acid 1 MG Tablet PO (09:28)
--- NOTE | 2019-02-25 11:06 | NURSING ---
report called to [facility] for transfer to room 129, daughter present
[2019-02-25] MEDS: Magnesium Citrate 300 ML 150 ML PO (19:02)
[2019-02-25] MEDS: Atorvastatin Calcium 20 MG Tablet PO (21:45)
[2019-02-25] MEDS: 0.9% NaCl Peripheral Flush Adult/Peds IV (21:53)
[2019-02-26] VITALS (10 sets, daily range): BP systolic 127–138; BP diastolic 52–60; PULSE 59–85; RESP 17–20; TEMP 36.9–38.1; O2SAT 96–98
[2019-02-26] MEDS: 0.9% NaCl Peripheral Flush Adult/Peds IV ×4 (05:11→22:45)
[2019-02-26] MEDS: Enoxaparin 30 MG/0.3 ML Syringe SC (05:32)
[2019-02-26 05:38] LABS: Hematocrit 27.6 % (37-47); Mean Corp Hgb Conc 32.6 g/gl (32-36); Mean Corpuscular Hgb 28.8 pg (27.0-32.0); Mean Corpuscular Volume 88.5 fL (81-99); Mean Platelet Vol. 11.3 fl (6.2-12.0); Platelet Count 178 K/mm3 (150-450); RBC Distribution Width CV 14.8 % (11.6-14.6); RBC Distribution Width SD 46.4 fl (35.1-43.9); Red Blood Count 3.12 M/mm3 (4.2-5.4); White Blood Count 13.7 K/mm3 (4.4-11.0)
[2019-02-26 05:39] LABS: Anion Gap 6 (5-15); BUN 22 mg/dL (7-18); BUN/Creat Ratio 19.3 RATIO (10-20); Calcium,Total 8.9 mg/dL (8.5-10.1); Chloride 113 mmol/L (98-107); Creatinine, Serum 1.14 mg/dL (0.55-1.02); Differential Indicated MANUAL DIFF; EST Glomerular Filtration Rate 51 mL/min (>60); Est Glom Filt Rate - Afr Amer 62 mL/min (>60); Estimated Creatinine Clearance 42.87 ml/min; Glucose 110 mg/dL (74-106); POSITIVE COUNT YES; POSITIVE DIFFERENTIAL YES; POSITIVE MORPHOLOGY YES; Potassium 3.7 mmol/L (3.5-5.1); Sodium Level 145 mmol/L (136-145)
[2019-02-26 06:29] LABS: Basophil 1 % (0-1); Lymphocyte 8 % (19-41); Monocyte 8 % (0-10); Neutrophil-Segmented 83 % (47-70); Total Cells Counted 100 (MANUAL DIFF)
[2019-02-26 06:30] LABS: Anisocytosis 1+; Hypochromasia 1+; Microcytosis 1+; Platelet Estimate ADEQUATE (ADEQ); Platelet Morphology LARGE
[2019-02-26 06:32] LABS: Absolute Neutrophil Count 11.4 X10^3/uL (2.0-7.7)
[2019-02-26 06:33] LABS: Reactive Lymphocyte RARE
--- NOTE | 2019-02-26 07:12 | PCM.PN.PUL ---
Patient Problems: Active and Suspected Problems Chills (Acute) Lower back pain (Acute) Subjective: The patient was seen and examined at the bedside this morning. Events from the last 24 hours have been reviewed. The patient is currently afebrile, hemodynamically stable and maintaining appropriate oxygen saturations on room air. The patient has done well clinically following transfer out of the intensive care unit yesterday. Objective: The patient's most recent lab work, culture data and imaging studies have all been personally reviewed. Urine and blood cultures were positive for E. coli. Surface echocardiogram revealed mild global LV systolic dysfunction with an ejection fraction of 40%. There was evidence of diastolic dysfunction as well. - Physical Exam General: Alert, Cooperative, No apparent distress HEENT: Atraumatic, PERRLA, Normocephalic Oral: Moist Mucosa Neck: Supple, No Nodes, Trachea Midline Lungs: No rhonchi, No wheeze, No rales, Diminished Cardiovascular: Regular rate, Regular Rhythm, Normal S1, Normal S2, No murmurs Abdomen: Bowel Sounds Present, Soft, Non Tender Extremities: No clubbing, No cyanosis Skin: - - No significant change from previous Musculoskeletal: No Tenderness to Palpation of Joints or Extremities Lymphatic: No Cervical, Supraclavicular, or Inguinal Adenopathy Neurological: Neuro grossly intact Psych/Mental Status: Normal Affect, Appropriate Vital Signs Temp Pulse Resp BP Pulse Ox 98.6 F 76 18 138/60 H 98 02/26/19 02:35 02/26/19 03:00 02/26/19 02:35 02/26/19 02:35 02/26/19 02:35 Oxygen Flow Rate (L/min) 2 Oxygen Delivery Method CPAP Weight: 181 lb 3.52 oz Body Mass Index (BMI) 31.1 Intake and Output for Last 24 Hours 02/24/19 02/25/19 02/26/19 23:59 23:59 23:59 Intake Total 6288.1 / 6288.1 843.1 / 843.1 332 / 332 Output Total 4100 / 4100 2320 / 2320 1375 / 1375 Balance 2188.1 / 2188.1 -1476.9 / -1476.9 -1043 / -1043 Microbiology Past 72 Hours 02/24/19 06:55 Blood Culture - Preliminary Blood Culture (Wb) - Anticubital Right GNR lactose filter washer 02/23/19 15:10 Urine Culture - Final Urine, Clean Catch Presumptive E. coli 02/23/19 13:24 Respiratory Panel (PCR) - Final Mucosa - Nasopharyngeal Laboratory Tests Past 24 Hrs 02/26/19 02/26/19 05:10 05:10 WBC 13.7 H RBC 3.12 L Hgb 9.0 L Hct 27.6 L MCV 88.5 MCH 28.8 MCHC 32.6 RDW 14.8 H RDW Differential 46.4 H Plt Count 178 MPV 11.3 Neut % (Auto) Not Reportable Absolute Neuts (auto) 11.4 H Absolute Lymphs (auto) 1.10 Total Counted 100 Neutrophils % (Manual) 83 H Lymphocytes % (Manual) 8 L Monocytes % (Manual) 8 Basophils % (Manual) 1 Diff Path Review May foll Reactive Lymphocytes RARE Platelet Estimate ADEQUATE Plt Morphology Comment LARGE Hypochromasia 1+ Anisocytosis 1+ Microcytosis 1+ Sodium 145 Potassium 3.7 Chloride 113 H Carbon Dioxide 26.0 Anion Gap 6 BUN 22 H Creatinine 1.14 H Estim Creat Clear Calc 42.87 Est GFR (MDRD) Af Amer 62 Est GFR (MDRD) Non-Af 51 L BUN/Creatinine Ratio 19.3 Glucose 110 H Calcium 8.9 Clinical Impression(s) from Imaging Studies Abdomen/Pelvis CT 02/23/19 13:05 IMPRESSION: No obstructive uropathy, there is a nonobstructing right renal stone and a simple right renal cyst and there is nonspecific perinephric inflammatory stranding. Fatty liver Normal appendix visualized Uterus is still present, the endometrium cannot be accurately evaluated with CT Electronically Signed: Alexander Pearl MD at 14:37 EDT , Service support , Chest X-Ray 02/23/19 13:41 IMPRESSION: Normal x-ray examination of the chest. Electronically Signed: Alexander Pearl MD at 14:24 EDT , Service support , Chest X-Ray 02/24/19 02:50 IMPRESSION: Cardiomegaly with mild central vascular congestion. No pneumonia. No pleural effusions. Electronically Signed: Keon Obando MD at 3:44 EDT Tel , Service support , Medical Necessity - Tobacco Use Smoking Status: Never smoker Tobacco Use: Non-smoker Assessment/Plan All Active Problems Chills (Acute) Lower back pain (Acute) RECOMMENDATIONS: 1. Continue antimicrobial coverage per infectious diseases recommendations. 2. Continue nocturnal CPAP therapy per home regimen. 3. Encourage incentive spirometer use and mobilize patient as tolerated. IMPRESSIONS: 1. Acute hypoxemic respiratory failure Resolved. The patient's etiology for her decompensation was likely the consequence of overzealous volume resuscitation coupled with the development of a tachyarrhythmia, leading to flash pulmonary edema. The patient has responded appropriately to the use of BiPAP therapy. The patient is no longer requiring noninvasive positive pressure ventilatory support. In fact, she is maintaining appropriate oxygen saturations on room air. Recommend continuing nocturnal CPAP therapy for underlying TERESA, per home regimen. Encourage incentive spirometer use and mobilize patient as tolerated. 2. Severe sepsis secondary to gram-negative pyelonephritis/bacteremia The patient was more than adequately volume resuscitated. She does appear to be growing ESBL E. coli. Infectious diseases is currently following to assist with antibiotic management. 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 We will continue to monitor accordingly. 4. Acute kidney injury Improving. Likely secondary to ATN in the setting of #2. We will continue to monitor urine output accordingly. 5. Obstructive sleep apnea The patient has a self-reported history of obstructive sleep apnea, for which she utilizes nocturnal Pap therapy. Therefore, nocturnal CPAP therapy will be continued per home regimen. 6. Hypertension/hyperlipidemia/depression Complicates care, management, recovery and prognosis. Okay to resume home medications. This note was generated with [employer] software. It may contain incorrect words, spelling, and punctuation that were not noted in checking the note before signing. Code Visit Inpatient E&M: 33458 Subs Hosp L2
--- NOTE | 2019-02-26 08:39 | PCM.PN.HOSP ---
Patient Problems: Active and Suspected Problems Chills (Acute) Lower back pain (Acute) Subjective: She was transferred to the intensive care unit to the progressive care unit day prior. Patient urine and blood cultures positive for ESBL E. coli Objective: GENERAL: HEENT: Atraumatic; EYES; Anicteric, Normal Conjunctiva NECK; supple, normal thyroid, RESPIRATORY: Diminished to auscultation bilaterally, CARDIOVASCULAR: Regular S1 S2, no audible murmurs GI: soft, non-tender, normoactive bowel sounds, : No Renal angle tenderness; EXTREMITIES: Edema involving upper extremities MUSCULOSKELETAL: No Joint Tenderness; NEURO: Awake; no lateralizing signs. SKIN: No Rash PSYCH; Normal affect Vitals/I&O's: Vital Signs Temp Pulse Resp BP Pulse Ox 98.5 F 70 17 127/52 H 96 02/26/19 08:02 02/26/19 08:02 02/26/19 08:02 02/26/19 08:02 02/26/19 08:02 Oxygen Flow Rate (L/min) 2 Oxygen Delivery Method Room Air Weight: 82.2 kg Body Mass Index (BMI) 31.1 Intake and Output for Last 24 Hours 02/24/19 02/25/19 02/26/19 23:59 23:59 23:59 Intake Total 6288.1 / 6288.1 843.1 / 843.1 332 / 332 Output Total 4100 / 4100 2320 / 2320 1375 / 1375 Balance 2188.1 / 2188.1 -1476.9 / -1476.9 -1043 / -1043 Microbiology Past 72 Hours 02/24/19 06:55 Blood Culture (Wb) - Anticubital Right Blood Culture - Preliminary Escherichia coli 02/23/19 15:10 Urine, Clean Catch Urine Culture - Final Presumptive E. coli 02/23/19 13:24 Mucosa - Nasopharyngeal Respiratory Panel (PCR) - Final Laboratory Results 02/26/19 05:10: WBC 13.7 H, RBC 3.12 L, Hgb 9.0 L, Hct 27.6 L, MCV 88.5, MCH 28.8, MCHC 32.6, RDW 14.8 H, RDW Differential 46.4 H, Plt Count 178, MPV 11.3, Neut % (Auto) Not Reportable, Absolute Neuts (auto) 11.4 H, Absolute Lymphs (auto) 1.10, Total Counted 100, Neutrophils % (Manual) 83 H, Lymphocytes % (Manual) 8 L, Monocytes % (Manual) 8, Basophils % (Manual) 1, Diff Path Review May foll, Reactive Lymphocytes RARE, Platelet Estimate ADEQUATE, Plt Morphology Comment LARGE, Hypochromasia 1+, Anisocytosis 1+, Microcytosis 1+ 02/26/19 05:10: Sodium 145, Potassium 3.7, Chloride 113 H, Carbon Dioxide 26.0, Anion Gap 6, BUN 22 H, Creatinine 1.14 H, Estim Creat Clear Calc 42.87, Est GFR (MDRD) Af Amer 62, Est GFR (MDRD) Non-Af 51 L, BUN/Creatinine Ratio 19.3, Glucose 110 H, Calcium 8.9 Current Medications Acetaminophen (Tylenol) 650 mg PO Q6H PRN PRN PRN Reason: pain/fever Last Admin: 02/25/19 17:23 Dose: 650 mg Atorvastatin Calcium (Lipitor) 20 mg PO QHS [facility] Last Admin: 02/25/19 21:45 Dose: 20 mg Dextrose (D50w Syringe) 0 gm IV X1 PRN; Protocol PRN Reason: Hypoglycemia Enoxaparin Sodium (Lovenox) 30 mg SC DAILY@0600 [facility] Last Admin: 02/26/19 05:32 Dose: 30 mg Folic Acid (Folic Acid) 1 mg PO DAILY [facility] Last Admin: 02/25/19 09:28 Dose: 1 mg Glucagon () 1 mg IM .X1 PRN PRN Reason: Hypoglycemia Heparin Sodium (Beef Lung) () 50 units IV UD PRN PRN Reason: HEPARIN FLUSH Meropenem 1 gm/ Sodium (Chloride) 120 mls @ 33 mls/hr IV Q12 [facility] Last Admin: 02/25/19 21:47 Dose: 33 mls/hr Nutritional Formula (Lactose Free) (Ensure Enlive) 120 ml PO 4X/DAY [facility] Last Admin: 02/25/19 21:46 Dose: 120 ml Ondansetron HCl (Zofran) 4 mg IV Q6H PRN PRN PRN Reason: NAUSEA/VOMITING Risperidone (Risperdal) 2 mg PO DAILY [facility] Last Admin: 02/25/19 09:24 Dose: 2 mg Senna (Senokot) 1 tablet PO DAILY [facility] Sodium Chloride () 5 - 15 ml IV UD PRN PRN Reason: SALINE FLUSH Last Admin: 02/26/19 05:12 Dose: 10 ml Sodium Chloride () 10 - 20 ml IV UD PRN PRN Reason: PICC FLUSH Venlafaxine HCl (Effexor Xr) 75 mg PO DAILY [facility] Last Admin: 02/25/19 09:24 Dose: 75 mg Venlafaxine HCl (Effexor Xr) 150 mg PO DAILY [facility] Last Admin: 02/25/19 09:24 Dose: 150 mg Medical Necessity - Tobacco Use Smoking Status: Never smoker Tobacco Use: Non-smoker Assessment/Plan All Active Problems Chills (Acute) Lower back pain (Acute) Patient is a 63-year-old lady who presented to the emergency department with fever chills as well as back pain. Patient urinalysis was consistent with UTI. CT of the abdomen and pelvis obtained demonstrated a nonobstructing right renal stone and nonspecific perinephric inflammatory stranding. An assessment of sepsis secondary to acute pyelonephritis made admitted for subsequent management in the hospital 1. Sepsis secondary to acute pyelonephritis with E. coli with subsequent bacteremia.: Patient admitted to intensive care unit managed per protocol with aggressive IV fluids broad-spectrum antibiotic therapy (Zosyn) after cultures have been sent.. Patient urine cultures came back positive for ESBL positive E. coli. Patient currently on meropenem consultation placed to infectious disease 2. Acute congestive heart failure with reduced ejection fraction. EF was 40% on echo obtained on 02/24/2019. Findings discussed with patient and family who requested consultation with cardiology 3. Acute kidney injury secondary to suspected ATN from patient's sepsis patient kidney function actually did worsen; creatinine down to 1.14 as of 02/26/2018. 4. Acute metabolic encephalopathy secondary to sepsis and acute kidney injury: Acute delirium resolved 5. Dyslipidemia-patient is on statin therapy, continued at home dose 6. Hypertension patient antihypertensive medications on hold 7. Depression patient is on SNRI 8. DVT prophylaxis SC Lovenox dose adjusted for kidney function Code Visit Inpatient E&M: 47890 Subs Hosp L2
--- NOTE | 2019-02-26 08:46 | PN_ITS ---
Patient Problems: Active and Suspected Problems Chills (Acute) Lower back pain (Acute) Subjective: She was transferred to the intensive care unit to the progressive care unit day prior. Patient urine and blood cultures positive for ESBL E. coli Objective: GENERAL: HEENT: Atraumatic; EYES; Anicteric, Normal Conjunctiva NECK; supple, normal thyroid, RESPIRATORY: Diminished to auscultation bilaterally, CARDIOVASCULAR: Regular S1 S2, no audible murmurs GI: soft, non-tender, normoactive bowel sounds, : No Renal angle tenderness; EXTREMITIES: Edema involving upper extremities MUSCULOSKELETAL: No Joint Tenderness; NEURO: Awake; no lateralizing signs. SKIN: No Rash PSYCH; Normal affect Vitals/I&O's: Vital Signs Temp Pulse Resp BP Pulse Ox 98.5 F 70 17 127/52 H 96 02/26/19 08:02 02/26/19 08:02 02/26/19 08:02 02/26/19 08:02 02/26/19 08:02 Oxygen Flow Rate (L/min) 2 Oxygen Delivery Method Room Air Weight: 82.2 kg Body Mass Index (BMI) 31.1 Intake and Output for Last 24 Hours 02/24/19 02/25/19 02/26/19 23:59 23:59 23:59 Intake Total 6288.1 / 6288.1 843.1 / 843.1 332 / 332 Output Total 4100 / 4100 2320 / 2320 1375 / 1375 Balance 2188.1 / 2188.1 -1476.9 / -1476.9 -1043 / -1043 Microbiology Past 72 Hours 02/24/19 06:55 Blood Culture (Wb) - Anticubital Right Blood Culture - Preliminary Escherichia coli 02/23/19 15:10 Urine, Clean Catch Urine Culture - Final Presumptive E. coli 02/23/19 13:24 Mucosa - Nasopharyngeal Respiratory Panel (PCR) - Final Laboratory Results 02/26/19 05:10: WBC 13.7 H, RBC 3.12 L, Hgb 9.0 L, Hct 27.6 L, MCV 88.5, MCH 28.8, MCHC 32.6, RDW 14.8 H, RDW Differential 46.4 H, Plt Count 178, MPV 11.3, Neut % (Auto) Not Reportable, Absolute Neuts (auto) 11.4 H, Absolute Lymphs (auto) 1.10, Total Counted 100, Neutrophils % (Manual) 83 H, Lymphocytes % (Manual) 8 L, Monocytes % (Manual) 8, Basophils % (Manual) 1, Diff Path Review May foll, Reactive Lymphocytes RARE, Platelet Estimate ADEQUATE, Plt Morphology Comment LARGE, Hypochromasia 1+, Anisocytosis 1+, Microcytosis 1+ 02/26/19 05:10: Sodium 145, Potassium 3.7, Chloride 113 H, Carbon Dioxide 26.0, Anion Gap 6, BUN 22 H, Creatinine 1.14 H, Estim Creat Clear Calc 42.87, Est GFR (MDRD) Af Amer 62, Est GFR (MDRD) Non-Af 51 L, BUN/Creatinine Ratio 19.3, Glucose 110 H, Calcium 8.9 Current Medications Acetaminophen (Tylenol) 650 mg PO Q6H PRN PRN PRN Reason: pain/fever Last Admin: 02/25/19 17:23 Dose: 650 mg Atorvastatin Calcium (Lipitor) 20 mg PO QHS [facility] Last Admin: 02/25/19 21:45 Dose: 20 mg Dextrose (D50w Syringe) 0 gm IV X1 PRN; Protocol PRN Reason: Hypoglycemia Enoxaparin Sodium (Lovenox) 30 mg SC DAILY@0600 [facility] Last Admin: 02/26/19 05:32 Dose: 30 mg Folic Acid (Folic Acid) 1 mg PO DAILY [facility] Last Admin: 02/25/19 09:28 Dose: 1 mg Glucagon () 1 mg IM .X1 PRN PRN Reason: Hypoglycemia Heparin Sodium (Beef Lung) () 50 units IV UD PRN PRN Reason: HEPARIN FLUSH Meropenem 1 gm/ Sodium (Chloride) 120 mls @ 33 mls/hr IV Q12 [facility] Last Admin: 02/25/19 21:47 Dose: 33 mls/hr Nutritional Formula (Lactose Free) (Ensure Enlive) 120 ml PO 4X/DAY [facility] Last Admin: 02/25/19 21:46 Dose: 120 ml Ondansetron HCl (Zofran) 4 mg IV Q6H PRN PRN PRN Reason: NAUSEA/VOMITING Risperidone (Risperdal) 2 mg PO DAILY [facility] Last Admin: 02/25/19 09:24 Dose: 2 mg Senna (Senokot) 1 tablet PO DAILY [facility] Sodium Chloride () 5 - 15 ml IV UD PRN PRN Reason: SALINE FLUSH Last Admin: 02/26/19 05:12 Dose: 10 ml Sodium Chloride () 10 - 20 ml IV UD PRN PRN Reason: PICC FLUSH Venlafaxine HCl (Effexor Xr) 75 mg PO DAILY [facility] Last Admin: 02/25/19 09:24 Dose: 75 mg Venlafaxine HCl (Effexor Xr) 150 mg PO DAILY [facility] Last Admin: 02/25/19 09:24 Dose: 150 mg Medical Necessity - Tobacco Use Smoking Status: Never smoker Tobacco Use: Non-smoker Assessment/Plan All Active Problems Chills (Acute) Lower back pain (Acute) Patient is a 63-year-old lady who presented to the emergency department with fever chills as well as back pain. Patient urinalysis was consistent with UTI. CT of the abdomen and pelvis obtained demonstrated a nonobstructing right renal stone and nonspecific perinephric inflammatory stranding. An assessment of sepsis secondary to acute pyelonephritis made admitted for subsequent management in the hospital 1. Sepsis secondary to acute pyelonephritis with E. coli with subsequent bacteremia.: Patient admitted to intensive care unit managed per protocol with aggressive IV fluids broad-spectrum antibiotic therapy (Zosyn) after cultures have been sent.. Patient urine cultures came back positive for ESBL positive E. coli. Patient currently on meropenem consultation placed to infectious disease 2. Acute congestive heart failure with reduced ejection fraction. EF was 40% on echo obtained on 02/24/2019. Findings discussed with patient and family who requested consultation with cardiology 3. Acute kidney injury secondary to suspected ATN from patient's sepsis patient kidney function actually did worsen; creatinine down to 1.14 as of 02/26/2018. 4. Acute metabolic encephalopathy secondary to sepsis and acute kidney injury: Acute delirium resolved 5. Dyslipidemia-patient is on statin therapy, continued at home dose 6. Hypertension patient antihypertensive medications on hold 7. Depression patient is on SNRI 8. DVT prophylaxis SC Lovenox dose adjusted for kidney function Code Visit Inpatient E&M: 69472 Subs Hosp L2
--- NOTE | 2019-02-26 11:06 | CON.PCM_ITS ---
Problem List (1) Infection due to ESBL-producing Escherichia coli Status: Acute Reason for Consult: esbl Consulted by: Dr. Petersen History of Present Illness: The patient is a 63 year old F with no prior uti or kidney stones, presented 5/6 with 3 days of fever, chills, shakes, and bilateral lower back pain. No dysuria, no blood in urine, no lower abd pain. Pain was aching across her back. No other focal symptoms. Came to ED, severe sepsis, MIHAI, admitted to icu on zosyn. Now improved, out of icu, Bcx and ucx with esbl ecoli. 02/24 picc was placed. Feeling better. Additional history obtained from family at bedside. Full ROS performed and neg except as noted above. - Medical History Allergies/Adverse Reactions: Allergies No Known Allergies Allergy (Verified 02/23/19 12:14) Home Medications: Ambulatory Orders Medication Instructions Recorded Cyanocobalamin (Vitamin B-12) 1,000 mcg PO DAILY 02/23/19 [B-12] Fenofibrate 54 mg PO DAILY 02/23/19 Folic Acid 1 mg PO DAILY 02/23/19 Lisinopril 20 mg PO DAILY 02/23/19 Melatonin 10 mg PO QHS 02/23/19 Multivitamins,Therapeutic 1 tablet PO DAILY 02/23/19 [Multivitamin] Risperidone 2 mg PO DAILY 02/23/19 Simvastatin 40 mg PO QHS 02/23/19 Venlafaxine HCl [Venlafaxine HCl 75 mg PO DAILY 02/23/19 ER] Venlafaxine HCl [Venlafaxine HCl 150 mg PO DAILY 02/23/19 ER] Ertapenem Sodium [Ertapenem] 1 gm IV DAILY #8 vial 02/26/19 - Social History SMOKING STATUS:: Never smoker Vital Signs Temp Pulse Resp BP Pulse Ox 98.5 F 70 17 127/52 H 96 02/26/19 08:02 02/26/19 08:02 02/26/19 08:02 02/26/19 08:02 02/26/19 08:02 Oxygen Flow Rate (L/min) 2 Oxygen Delivery Method Room Air Weight: 82.2 kg Body Mass Index (BMI) 31.1 Microbiology Past 72 Hours 02/24/19 06:55 Blood Culture - Preliminary Blood Culture (Wb) - Anticubital Right Escherichia coli 02/23/19 15:10 Urine Culture - Final Urine, Clean Catch Presumptive E. coli 02/23/19 13:24 Respiratory Panel (PCR) - Final Mucosa - Nasopharyngeal Laboratory Tests Past 24 Hrs 02/26/19 02/26/19 05:10 05:10 WBC 13.7 H RBC 3.12 L Hgb 9.0 L Hct 27.6 L MCV 88.5 MCH 28.8 MCHC 32.6 RDW 14.8 H RDW Differential 46.4 H Plt Count 178 MPV 11.3 Neut % (Auto) Not Reportable Absolute Neuts (auto) 11.4 H Absolute Lymphs (auto) 1.10 Total Counted 100 Neutrophils % (Manual) 83 H Lymphocytes % (Manual) 8 L Monocytes % (Manual) 8 Basophils % (Manual) 1 Diff Path Review May foll Reactive Lymphocytes RARE Platelet Estimate ADEQUATE Plt Morphology Comment LARGE Hypochromasia 1+ Anisocytosis 1+ Microcytosis 1+ Sodium 145 Potassium 3.7 Chloride 113 H Carbon Dioxide 26.0 Anion Gap 6 BUN 22 H Creatinine 1.14 H Estim Creat Clear Calc 42.87 Est GFR (MDRD) Af Amer 62 Est GFR (MDRD) Non-Af 51 L BUN/Creatinine Ratio 19.3 Glucose 110 H Calcium 8.9 - Other Studies Radiology: [] reviewed Other Studies: [] Route of nutrition/ use of supplements: [] Nutritional Intake: [] IV Site: [] Ross Catheter: [] - Physical Exam General: Alert, Oriented x3, Cooperative, No apparent distress HEENT: Atraumatic, PERRLA, EOMI Neck: Supple, No Nodes Lungs: Clear to auscultation, Normal air movement Cardiovascular: Regular rate, Regular Rhythm, No murmurs Abdomen: Soft, Non Tender, Non-Distended, - - no flank pain Extremities: No edema Skin: No rashes IV Site: PICC, without redness Musculoskeletal: No Tenderness to Palpation of Joints or Extremities Neurological: Cranial nerves II-XII grossly intact - Assessment/Plan Antibiotics: [] Assessment/Plan: [] Active and Suspected Problems Chills (Acute) Lower back pain (Acute) Severe sepsis due to esbl ecoli pyelonephritis with bacteremia and MIHAI - improving. On meropenem. Small nonobstructing stones seen in R kidney on CT. Picc in place, inserted while still bacteremic. 02/25 bcx pending. Cont meropenem, will write for outpt erta to be arranged. May be at risk of recurrent infection with stones in place. Will follow, thank you, d/w vocational case manager.
--- NOTE | 2019-02-26 11:21 | CASEMGMT ---
Addendum entered by Sheridan Cody 02/26/19 13:33: This RN CHANCE spoke with Rach at [facility] and she states that she is the coordinator for pt at this time. This RN CM advised her that [facility] is set up at this time and to call daughter with financials and voices understanding at this time. Rach's contact number [phone]. Rach states she is working on finalizing referral at this time. Nina CARIAS CM Original Note: Addendum entered by Sheridan Cody 02/26/19 11:28: Call back from Leila [facility] and she states that they would be able to take pt at this time. This RN CHANCE will call I this afternoon to verify referral received and to update on [facility] obtained. Nina CARIAS CM Original Note: Per Dr. Walter, pt will need to go home on about 8days of Ertapenem 1gm IV daily. This RN CM to room to speak with pt and daughter at this time. Pt/daughter state they would like [facility] at this time and are agreeable to [facility] for antibx/infusion supplies. Daughter states that she is teachable and will help pt once home as well. Referral faxed to [facility] at this time and message left with Leila at [facility] in regards to referral at this time. Pt/daughter voice no further questions/concerns/needs at this time. Nina CARIAS CM
[2019-02-26] MEDS: RisperiDONE 2 MG Tablet PO (11:40)
[2019-02-26] MEDS: Venlafaxine XR 150 MG Capsule PO (11:40)
[2019-02-26] MEDS: Folic Acid 1 MG Tablet PO (11:40)
[2019-02-26] MEDS: Venlafaxine XR 75 MG Capsule PO (11:40)
--- NOTE | 2019-02-26 13:32 | CON.PCM_ITS ---
Reason for Consult Date of Consultation: 02/26/19 Reason for Consultation: Cardiomyopathy, congestive heart failure History of Present Illness: The patient is a 63 year old F [admitted to [facility] with sepsis secondary to UTI. She was found to have acute kidney injury as well. An echocardiogram revealed an EF of around 40%. Patient was given IV fluids because of severe sepsis and went into respiratory distress secondary to IV fluid resuscitation in addition to the systolic dysfunction and a tachyarrhythmia that appears to be atrial tachycardia. Patient was appropriately treated for this and is doing much better and has been off BiPAP that was started for the respiratory distress. She currently denies any chest pain,shortness of breath], palpitations, dizziness. Patient has not had recurrence of the tachyarrhythmia since 02/24/2019 when it was first noted. Past Medical History Allergies/Adverse Reactions: Allergies No Known Allergies Allergy (Verified 02/23/19 12:14) Home Medications: Ambulatory Orders Medication Instructions Recorded Cyanocobalamin (Vitamin B-12) 1,000 mcg PO DAILY 02/23/19 [B-12] Fenofibrate 54 mg PO DAILY 02/23/19 Folic Acid 1 mg PO DAILY 02/23/19 Lisinopril 20 mg PO DAILY 02/23/19 Melatonin 10 mg PO QHS 02/23/19 Multivitamins,Therapeutic 1 tablet PO DAILY 02/23/19 [Multivitamin] Risperidone 2 mg PO DAILY 02/23/19 Simvastatin 40 mg PO QHS 02/23/19 Venlafaxine HCl [Venlafaxine HCl 75 mg PO DAILY 02/23/19 ER] Venlafaxine HCl [Venlafaxine HCl 150 mg PO DAILY 02/23/19 ER] Ertapenem Sodium [Ertapenem] 1 gm IV DAILY #8 vial 02/26/19 Surgical History: tonsillectomy, - - Uterine ablation Psychiatric History: No pertinent psych hx INFORMATION STRATEGIST History: No pertinent INFORMATION STRATEGIST history - *Family History Maternal History Items: Dementia, Heart Disease Paternal History Items: COPD, - - CHF Lives: Spouse/ Significant Other Smoking Status: Never smoker Tobacco Use: Non-smoker Alcohol: None Drugs: None Review of Systems - Review of Systems HEENT: Denies: Vision Change, Hearing Changes Cardiovascular: Denies: Chest Discomfort, Chest Heaviness, Shortness of Breath, Dizziness, Near Syncope, Syncope Respiratory: Denies: Cough, Hemoptysis Gastrointestinal: Denies: Indigestion, Abdominal Discomfort Genitourinary: Denies: Hematuria Muscoloskeletal: Denies: Myalgias Skin: Denies: Rash Neurological: Denies: Dizziness, Vertigo, Seizure Psychiatric: Denies: Anxiety Objective: Vital Signs Temp Pulse Resp BP Pulse Ox 98.5 F 59 L 17 127/52 H 96 02/26/19 08:02 02/26/19 12:39 02/26/19 08:02 02/26/19 08:02 02/26/19 08:02 Oxygen Flow Rate (L/min) 2 Oxygen Delivery Method Room Air Weight: 181 lb 3.52 oz Body Mass Index (BMI) 31.1 Intake and Output for Last 24 Hours 02/24/19 02/25/19 02/26/19 23:59 23:59 23:59 Intake Total 6288.1 / 6288.1 843.1 / 843.1 692 / 692 Output Total 4100 / 4100 2320 / 2320 2100 / 2100 Balance 2188.1 / 2188.1 -1476.9 / -1476.9 -1408 / -1408 General: Awake, Alert, Oriented x 3 HEENT: PERRL, EOMI, Sclera Non Icteric Neck: Supple, Good ROM, No Lymph Node Enlargement Lungs: Clear to auscultation Cardiovascular: Regular Rhythm, Normal S1, Normal S2, No Murmurs, No Rubs, No Gallops Vascular: Normal Radial Pulses, Normal Posterior Tibial Pulses Abdomen: Bowel Sounds Present, Soft, Non Tender Extremities: No Cyanosis, No Clubbing, No edema Musculoskeletal: No Erythema Skin: No Rashes Neurological: No Focal Motor or Sensory Deficit Psych/Mental Status: Appropriate 02/26/19 05:10: WBC 13.7 H, RBC 3.12 L, Hgb 9.0 L, Hct 27.6 L, MCV 88.5, MCH 28.8, MCHC 32.6, RDW 14.8 H, RDW Differential 46.4 H, Plt Count 178, MPV 11.3, Neut % (Auto) Not Reportable, Absolute Neuts (auto) 11.4 H, Total Counted 100, Neutrophils % (Manual) 83 H, Lymphocytes % (Manual) 8 L, Monocytes % (Manual) 8, Basophils % (Manual) 1 05/09/19 05:10: Sodium 145, Potassium 3.7, Chloride 113 H, Carbon Dioxide 26.0, Anion Gap 6, BUN 22 H, Creatinine 1.14 H, Est GFR (MDRD) Af Amer 62, Est GFR (MDRD) Non-Af 51 L, BUN/Creatinine Ratio 19.3, Glucose 110 H, Calcium 8.9 Rhythm: EKG: ECHO: Stress Test: Cardiac Cath: PCI: CT Surgery: Holter monitor: EPS: PPM: CXR: Chest CT Scan: Assessment/Plan 1. Congestive heart failure: Acute on probably chronic systolic heart failure. Patient is compensated at this time. I will start the patient on metoprolol succinate 25 mg p.o. daily. Patient had acute renal failure that is improving. If the blood pressure can tolerate we will consider lisinopril if the creatinine also normalizes. Patient will need work-up for the etiology of her systolic dysfunction in the form of a cardiac catheterization or a stress test as an outpatient. 2. Atrial tachycardia: We are starting the patient on metoprolol succinate. Will monitor on telemetry.
[2019-02-26 14:00] LABS: Pathologist Review Reviewed
[2019-02-26] MEDS: Acetaminophen 325 MG Tablet 650 MG PO (17:33)
[2019-02-26] MEDS: Atorvastatin Calcium 20 MG Tablet PO (22:44)
[2019-02-27] VITALS (13 sets, daily range): BP systolic 137–146; BP diastolic 56–70; PULSE 60–77; RESP 18–20; TEMP 36.6–37.4; O2SAT 95–100
[2019-02-27] MEDS: 0.9% NaCl PICC Flush IV (05:49)
[2019-02-27] MEDS: Enoxaparin 30 MG/0.3 ML Syringe SC (05:50)
[2019-02-27 06:15] LABS: Anion Gap 5 (5-15); BUN 17 mg/dL (7-18); BUN/Creat Ratio 18.8 RATIO (10-20); Calcium,Total 8.6 mg/dL (8.5-10.1); Chloride 111 mmol/L (98-107); EST Glomerular Filtration Rate 67 mL/min (>60); Est Glom Filt Rate - Afr Amer 81 mL/min (>60); Glucose 101 mg/dL (74-106); Potassium 3.8 mmol/L (3.5-5.1); Sodium Level 145 mmol/L (136-145)
[2019-02-27 06:26] LABS: Basophil# 0.07 X10^3/uL; Eosinophil# 0.11 X10^3/uL; Hematocrit 28.8 % (37-47); Hemoglobin 9.4 g/dl (12.0-15.0); Lymphocyte # 2.28 X10^3/ul (4.0); Mean Corp Hgb Conc 32.6 g/gl (32-36); Mean Corpuscular Volume 88.9 fL (81-99); Mean Platelet Vol. 11.1 fl (6.2-12.0); Monocyte# 2.06 X10^3/uL; Neutrophil # 16.03 X10^3/uL (2.7-7.7); Platelet Count 213 K/mm3 (150-450); RBC Distribution Width CV 14.7 % (11.6-14.6); RBC Distribution Width SD 46.3 fl (35.1-43.9); Red Blood Count 3.24 M/mm3 (4.2-5.4); White Blood Count 21.9 K/mm3 (4.4-11.0)
[2019-02-27 06:32] LABS: Differential Indicated SCAN CRITERIA MET; POSITIVE COUNT NO; POSITIVE DIFFERENTIAL YES; POSITIVE MORPHOLOGY NO
[2019-02-27 06:55] LABS: Anisocytosis 1+; Eosinophil 2 % (0-5); Hypochromasia 1+; Lymphocyte 5 % (19-41); Metamyelocyte 2 % (0-1); Monocyte 7 % (0-10); Neutrophil-Band 6 % (0-5); Neutrophil-Segmented 78 % (47-70); Total Cells Counted 100 (MANUAL DIFF)
[2019-02-27 06:56] LABS: Platelet Estimate ADEQUATE (ADEQ); Polychromasia 1+
[2019-02-27 06:57] LABS: Microcytosis 1+; Reactive Lymphocyte RARE
[2019-02-27 06:58] LABS: Scan Smear per Review Criteria MANUAL DIFF
[2019-02-27 07:07] LABS: Absolute Neutrophil Count 18.4 X10^3/uL (2.0-7.7)
--- NOTE | 2019-02-27 09:21 | PN_ITS ---
Patient Problems: Active and Suspected Problems Chills (Acute) Lower back pain (Acute) Infection due to ESBL-producing Escherichia coli (Acute) Subjective: Patient seen appears ill looking complains of having loose bowel movement. Patient did receive a laxative for constipation. Her WBC count is trending up with temperature maximum over the past 24 hours 100.5 Objective: GENERAL: Appears ill looking HEENT: Atraumatic; EYES; Anicteric, Normal Conjunctiva NECK; supple, normal thyroid, RESPIRATORY: Diminished to auscultation bilaterally, CARDIOVASCULAR: Regular S1 S2, GI: soft, non-tender, normoactive bowel sounds, : No Renal angle tenderness; EXTREMITIES: Edema involving upper extremities MUSCULOSKELETAL: No Joint Tenderness; NEURO: Awake; no lateralizing signs. SKIN: No Rash PSYCH; Normal affect Vitals/I&O's: Vital Signs Temp Pulse Resp BP Pulse Ox 99.4 F H 67 20 H 141/70 H 98 02/27/19 04:09 02/27/19 07:30 02/27/19 04:09 02/27/19 04:09 02/27/19 04:09 Oxygen Flow Rate (L/min) 2 Oxygen Delivery Method Room Air Weight: 82.3 kg Body Mass Index (BMI) 31.1 Intake and Output for Last 24 Hours 02/25/19 02/26/19 02/27/19 23:59 23:59 23:59 Intake Total 843.1 / 843.1 1347 / 1347 345 / 345 Output Total 2320 / 2320 2925 / 2925 1850 / 1850 Balance -1476.9 / -1476.9 -1578 / -1578 -1505 / -1505 Microbiology Past 72 Hours 02/24/19 06:55 Blood Culture (Wb) - Anticubital Right Blood Culture - Final Escherichia coli 02/23/19 15:10 Urine, Clean Catch Urine Culture - Final Presumptive E. coli 02/23/19 13:24 Mucosa - Nasopharyngeal Respiratory Panel (PCR) - Final Laboratory Results 02/26/19 05:10: Diff Path Review Reviewed 02/27/19 05:45: WBC 21.9 H, RBC 3.24 L, Hgb 9.4 L, Hct 28.8 L, MCV 88.9, MCH 29.0, MCHC 32.6, RDW 14.7 H, RDW Differential 46.3 H, Plt Count 213, MPV 11.1, Immature Gran % (Auto) MANAGER COSTING, Neut % (Auto) MANAGER COSTING, Lymph % (Auto) MANAGER COSTING, Wayne % (Auto) MANAGER COSTING, Eos % (Auto) MANAGER COSTING, Baso % (Auto) MANAGER COSTING, Absolute Neuts (auto) 18.4 H, Absolute Lymphs (auto) 1.10, Total Counted 100, Neutrophils % (Manual) 78 H, Band Neutrophils % 6 H, Lymphocytes % (Manual) 5 L, Monocytes % (Manual) 7, Eosinophils % (Manual) 2, Metamyelocytes % 2 H, Diff Path Review May foll, Reactive Lymphocytes RARE, Platelet Estimate ADEQUATE, Polychromasia 1+, Hypochromasia 1+, Anisocytosis 1+, Microcytosis 1+ 02/27/19 05:45: Sodium 145, Potassium 3.8, Chloride 111 H, Carbon Dioxide 29.0, Anion Gap 5, BUN 17, Creatinine 0.90, Estim Creat Clear Calc 54.30, Est GFR (MDRD) Af Amer 81, Est GFR (MDRD) Non-Af 67, BUN/Creatinine Ratio 18.8, Glucose 101, Calcium 8.6 Current Medications Acetaminophen (Tylenol) 650 mg PO Q6H PRN PRN PRN Reason: pain/fever Last Admin: 02/26/19 17:33 Dose: 650 mg Atorvastatin Calcium (Lipitor) 20 mg PO QHS [facility] Last Admin: 02/26/19 22:44 Dose: 20 mg Dextrose (D50w Syringe) 0 gm IV X1 PRN; Protocol PRN Reason: Hypoglycemia Enoxaparin Sodium (Lovenox) 30 mg SC DAILY@0600 [facility] Last Admin: 02/27/19 05:50 Dose: 30 mg Folic Acid (Folic Acid) 1 mg PO DAILY [facility] Last Admin: 02/26/19 11:40 Dose: 1 mg Glucagon () 1 mg IM .X1 PRN PRN Reason: Hypoglycemia Heparin Sodium (Beef Lung) () 50 units IV UD PRN PRN Reason: HEPARIN FLUSH Meropenem 1 gm/ Sodium (Chloride) 120 mls @ 33 mls/hr IV Q8 [facility] Last Admin: 02/27/19 05:50 Dose: 33 mls/hr Metoprolol Succinate (Toprol Xl (Beta Elliott)) 25 mg PO DAILY [facility] Nutritional Formula (Lactose Free) (Ensure Enlive) 120 ml PO 4X/DAY [facility] Last Admin: 02/26/19 22:46 Dose: Not Given Ondansetron HCl (Zofran) 4 mg IV Q6H PRN PRN PRN Reason: NAUSEA/VOMITING Risperidone (Risperdal) 2 mg PO DAILY [facility] Last Admin: 02/26/19 11:40 Dose: 2 mg Sodium Chloride () 5 - 15 ml IV UD PRN PRN Reason: SALINE FLUSH Last Admin: 02/26/19 22:45 Dose: 10 ml Sodium Chloride () 10 - 20 ml IV UD PRN PRN Reason: PICC FLUSH Last Admin: 02/27/19 05:49 Dose: 20 ml Venlafaxine HCl (Effexor Xr) 75 mg PO DAILY [facility] Last Admin: 02/26/19 11:40 Dose: 75 mg Venlafaxine HCl (Effexor Xr) 150 mg PO DAILY [facility] Last Admin: 02/26/19 11:40 Dose: 150 mg Medical Necessity - Tobacco Use Smoking Status: Never smoker Tobacco Use: Non-smoker Assessment/Plan All Active Problems Chills (Acute) Lower back pain (Acute) Infection due to ESBL-producing Escherichia coli (Acute) Patient is a 63-year-old lady who presented to the emergency department with fever chills as well as back pain. Patient urinalysis was consistent with UTI. CT of the abdomen and pelvis obtained demonstrated a nonobstructing right renal stone and nonspecific perinephric inflammatory stranding. An assessment of sepsis secondary to acute pyelonephritis made admitted for subsequent management in the hospital 1. Sepsis secondary to acute pyelonephritis with E. coli with subsequent bacteremia.: Patient admitted to intensive care unit managed per protocol with aggressive IV fluids broad-spectrum antibiotic therapy (Zosyn) after cultures have been sent.. Patient urine cultures came back positive for ESBL positive E. coli. Patient currently on meropenem consultation placed to infectious disease plan is for patient to be discharged home on ertapenem when medically stable. 2. Acute congestive heart failure with reduced ejection fraction. EF was 40% on echo obtained on 02/24/2019. Findings discussed with patient and family who requested consultation with cardiology. Plan is for patient undergo subsequent evaluation as outpatient with an outpatient stress test or left heart catheterization to evaluate her reduced ejection fraction 3. Acute kidney injury secondary to suspected ATN from patient's sepsis patient kidney function actually did worsen; creatinine down to 1.14 as of 02/26/2018. 4. Acute metabolic encephalopathy secondary to sepsis and acute kidney injury: Acute delirium resolved 5. Dyslipidemia-patient is on statin therapy, continued at home dose 6. Hypertension patient antihypertensive medications on hold 7. Depression patient is on SNRI 8. DVT prophylaxis SC Lovenox dose adjusted for kidney function 9. Diarrhea attributed to patient having received laxatives we will continue to monitor patient daily scheduled senna discontinued Code Visit Inpatient E&M: 11811 [facility] Hosp L3
[2019-02-27] MEDS: Metoprolol(XL)Succ 25 MG Tablet PO (09:54)
[2019-02-27] MEDS: RisperiDONE 2 MG Tablet PO (09:55)
[2019-02-27] MEDS: Folic Acid 1 MG Tablet PO (09:55)
[2019-02-27] MEDS: Venlafaxine XR 150 MG Capsule PO (09:55)
[2019-02-27] MEDS: Venlafaxine XR 75 MG Capsule PO (09:55)
--- NOTE | 2019-02-27 11:39 | CASEMGMT ---
Addendum entered by Sheridan Cody 02/27/19 14:36: Farhan, charge master analyst, and Dr. Petersen aware that pt will need 1st does of Ertapenem prior to discharge from the hospital, voice understanding. Nina CARIAS CM Original Note: THis RN CM received call from Rach at [employer] and she states that she spoke with pt's daughter and everything is good to go from their end financially. This RN CM spoke with daughter, Leanna, regarding same and she voices understanding. Leanna does state some concern over pt fatigue s/p therapy this am and wonders if pt should have PT/OT added to [facility]. Per therapy note, they are not recommending any further therapy at this time. Daughter updated on same, voices understanding. Per Dr. Petersen, pt will tentatively discharge tomorrow and daughter is aware of this as well. Pt will need a dose of ertapenem in the am prior to discharge as this is what she will be going home on and then [facility] will do start of care saturday am per Elle. Daughter aware of all, voices understanding and states that she will be there whenever C needs her to. She states that she only lives about 10 minutes from pt and will probably staying with pt anyway. Pt is sleeping at this time without distress. Daughter voices no further questions/concerns/needs at this time. Elle at [facility] aware of all, voices understanding. Nina CARIAS CM
--- NOTE | 2019-02-27 12:14 | PCM.PN.PUL ---
Patient Problems: Active and Suspected Problems Chills (Acute) Lower back pain (Acute) Infection due to ESBL-producing Escherichia coli (Acute) Subjective: The patient was seen and examined at the bedside this morning. Events from the last 24 hours have been reviewed. The patient is currently afebrile, hemodynamically stable and maintaining appropriate oxygen saturations on room air. Objective: The patient's most recent lab work, culture data and imaging studies have all been personally reviewed. Urine and blood cultures were positive for E. coli. Surface echocardiogram revealed mild global LV systolic dysfunction with an ejection fraction of 40%. There was evidence of diastolic dysfunction as well. - Physical Exam General: Alert, Cooperative, No apparent distress HEENT: Atraumatic, PERRLA, Normocephalic Oral: No Gingival or Mucosal Lesions/ Ulcerations Neck: Supple, No Nodes, Trachea Midline Lungs: No rhonchi, No wheeze, No rales, Diminished Cardiovascular: Regular rate, Regular Rhythm, Normal S1, Normal S2, No murmurs Abdomen: Bowel Sounds Present, Soft, Non Tender Extremities: No clubbing, No cyanosis, No edema Skin: No breakdown Musculoskeletal: No Tenderness to Palpation of Joints or Extremities Lymphatic: No Cervical, Supraclavicular, or Inguinal Adenopathy Neurological: Neuro grossly intact Psych/Mental Status: Normal Affect, Appropriate Vital Signs Temp Pulse Resp BP Pulse Ox 98.4 F 60 18 142/60 H 96 02/27/19 09:22 02/27/19 09:54 02/27/19 09:22 02/27/19 09:22 02/27/19 09:22 Oxygen Flow Rate (L/min) 2 Oxygen Delivery Method Room Air Weight: 181 lb 7.047 oz Body Mass Index (BMI) 31.1 Intake and Output for Last 24 Hours 02/25/19 02/26/19 02/27/19 23:59 23:59 23:59 Intake Total 843.1 / 843.1 1347 / 1347 345 / 345 Output Total 2320 / 2320 2925 / 2925 1850 / 1850 Balance -1476.9 / -1476.9 -1578 / -1578 -1505 / -1505 Microbiology Past 72 Hours 02/25/19 09:40 Blood Culture - Preliminary Blood Culture (Wb) - No Site/Description Given No growth in 48 hours. 02/24/19 06:55 Blood Culture - Final Blood Culture (Wb) - Anticubital Right Escherichia coli 02/23/19 15:10 Urine Culture - Final Urine, Clean Catch Presumptive E. coli Laboratory Tests Past 24 Hrs 02/26/19 02/27/19 02/27/19 05:10 05:45 05:45 WBC 21.9 H RBC 3.24 L Hgb 9.4 L Hct 28.8 L MCV 88.9 MCH 29.0 MCHC 32.6 RDW 14.7 H RDW Differential 46.3 H Plt Count 213 MPV 11.1 Immature Gran % (Auto) LINE ANALYST Neut % (Auto) LINE ANALYST Lymph % (Auto) LINE ANALYST [place] % (Auto) LINE ANALYST Eos % (Auto) LINE ANALYST Baso % (Auto) LINE ANALYST Absolute Neuts (auto) 18.4 H Absolute Lymphs (auto) 1.10 Total Counted 100 Neutrophils % (Manual) 78 H Band Neutrophils % 6 H Lymphocytes % (Manual) 5 L Monocytes % (Manual) 7 Eosinophils % (Manual) 2 Metamyelocytes % 2 H Diff Path Review Reviewed May foll Reactive Lymphocytes RARE Platelet Estimate ADEQUATE Polychromasia 1+ Hypochromasia 1+ Anisocytosis 1+ Microcytosis 1+ Sodium 145 Potassium 3.8 Chloride 111 H Carbon Dioxide 29.0 Anion Gap 5 BUN 17 Creatinine 0.90 Estim Creat Clear Calc 54.30 Est GFR (MDRD) Af Amer 81 Est GFR (MDRD) Non-Af 67 BUN/Creatinine Ratio 18.8 Glucose 101 Calcium 8.6 Clinical Impression(s) from Imaging Studies Abdomen/Pelvis CT 02/23/19 13:05 IMPRESSION: No obstructive uropathy, there is a nonobstructing right renal stone and a simple right renal cyst and there is nonspecific perinephric inflammatory stranding. Fatty liver Normal appendix visualized Uterus is still present, the endometrium cannot be accurately evaluated with CT Electronically Signed: Alexander Pearl MD at 14:37 EDT , Service support , Chest X-Ray 02/23/19 13:41 IMPRESSION: Normal x-ray examination of the chest. Electronically Signed: Alexander Pearl MD at 14:24 EDT , Service support , Chest X-Ray 02/24/19 02:50 IMPRESSION: Cardiomegaly with mild central vascular congestion. No pneumonia. No pleural effusions. Electronically Signed: Keon Obando MD at 3:44 EDT Tel , Service support , Medical Necessity - Tobacco Use Smoking Status: Never smoker Tobacco Use: Non-smoker Assessment/Plan All Active Problems Chills (Acute) Lower back pain (Acute) Infection due to ESBL-producing Escherichia coli (Acute) RECOMMENDATIONS: 1. Continue antimicrobial coverage per infectious diseases recommendations. 2. Continue nocturnal CPAP therapy per home regimen. 3. Encourage incentive spirometer use and mobilize patient as tolerated. IMPRESSIONS: 1. Acute hypoxemic respiratory failure Resolved. The patient's etiology for her decompensation was likely the consequence of overzealous volume resuscitation coupled with the development of a tachyarrhythmia, leading to flash pulmonary edema. The patient has responded appropriately to the use of BiPAP therapy. The patient is no longer requiring noninvasive positive pressure ventilatory support. In fact, she is maintaining appropriate oxygen saturations on room air. Recommend continuing nocturnal CPAP therapy for underlying TERESA, per home regimen. Encourage incentive spirometer use and mobilize patient as tolerated. 2. Severe sepsis secondary to gram-negative pyelonephritis/bacteremia The patient was more than adequately volume resuscitated. She does appear to be growing ESBL E. coli. Infectious diseases is currently following to assist with antibiotic management. 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 We will continue to monitor accordingly. Cardiology is following. 4. Acute kidney injury Improving. Likely secondary to ATN in the setting of #2. We will continue to monitor urine output accordingly. 5. Obstructive sleep apnea The patient has a self-reported history of obstructive sleep apnea, for which she utilizes nocturnal Pap therapy. Therefore, nocturnal CPAP therapy will be continued per home regimen. 6. Hypertension/hyperlipidemia/depression Complicates care, management, recovery and prognosis. Okay to resume home medications. This note was generated with [employer]BOXation software. It may contain incorrect words, spelling, and punctuation that were not noted in checking the note before signing. DISPOSITION: Given the patient's lack of ongoing ICU/pulmonary needs, will sign off. Please call with any additional questions. Code Visit Inpatient E&M: 09505 Subs Hosp L2
--- NOTE | 2019-02-27 12:17 | PN_ITS ---
Patient Problems: Active and Suspected Problems Chills (Acute) Lower back pain (Acute) Infection due to ESBL-producing Escherichia coli (Acute) Subjective: The patient was seen and examined at the bedside this morning. Events from the last 24 hours have been reviewed. The patient is currently afebrile, hemodynamically stable and maintaining appropriate oxygen saturations on room air. Objective: The patient's most recent lab work, culture data and imaging studies have all been personally reviewed. Urine and blood cultures were positive for E. coli. Surface echocardiogram revealed mild global LV systolic dysfunction with an ejection fraction of 40%. There was evidence of diastolic dysfunction as well. - Physical Exam General: Alert, Cooperative, No apparent distress HEENT: Atraumatic, PERRLA, Normocephalic Oral: No Gingival or Mucosal Lesions/ Ulcerations Neck: Supple, No Nodes, Trachea Midline Lungs: No rhonchi, No wheeze, No rales, Diminished Cardiovascular: Regular rate, Regular Rhythm, Normal S1, Normal S2, No murmurs Abdomen: Bowel Sounds Present, Soft, Non Tender Extremities: No clubbing, No cyanosis, No edema Skin: No breakdown Musculoskeletal: No Tenderness to Palpation of Joints or Extremities Lymphatic: No Cervical, Supraclavicular, or Inguinal Adenopathy Neurological: Neuro grossly intact Psych/Mental Status: Normal Affect, Appropriate Vital Signs Temp Pulse Resp BP Pulse Ox 98.4 F 60 18 142/60 H 96 02/27/19 09:22 02/27/19 09:54 02/27/19 09:22 02/27/19 09:22 02/27/19 09:22 Oxygen Flow Rate (L/min) 2 Oxygen Delivery Method Room Air Weight: 181 lb 7.047 oz Body Mass Index (BMI) 31.1 Intake and Output for Last 24 Hours 02/25/19 02/26/19 02/27/19 23:59 23:59 23:59 Intake Total 843.1 / 843.1 1347 / 1347 345 / 345 Output Total 2320 / 2320 2925 / 2925 1850 / 1850 Balance -1476.9 / -1476.9 -1578 / -1578 -1505 / -1505 Microbiology Past 72 Hours 02/25/19 09:40 Blood Culture - Preliminary Blood Culture (Wb) - No Site/Description Given No growth in 48 hours. 02/24/19 06:55 Blood Culture - Final Blood Culture (Wb) - Anticubital Right Escherichia coli 02/23/19 15:10 Urine Culture - Final Urine, Clean Catch Presumptive E. coli Laboratory Tests Past 24 Hrs 02/26/19 02/27/19 02/27/19 05:10 05:45 05:45 WBC 21.9 H RBC 3.24 L Hgb 9.4 L Hct 28.8 L MCV 88.9 MCH 29.0 MCHC 32.6 RDW 14.7 H RDW Differential 46.3 H Plt Count 213 MPV 11.1 Immature Gran % (Auto) NAILING MACHINE OPERATOR Neut % (Auto) NAILING MACHINE OPERATOR Lymph % (Auto) NAILING MACHINE OPERATOR [place] % (Auto) NAILING MACHINE OPERATOR Eos % (Auto) NAILING MACHINE OPERATOR Baso % (Auto) NAILING MACHINE OPERATOR Absolute Neuts (auto) 18.4 H Absolute Lymphs (auto) 1.10 Total Counted 100 Neutrophils % (Manual) 78 H Band Neutrophils % 6 H Lymphocytes % (Manual) 5 L Monocytes % (Manual) 7 Eosinophils % (Manual) 2 Metamyelocytes % 2 H Diff Path Review Reviewed May foll Reactive Lymphocytes RARE Platelet Estimate ADEQUATE Polychromasia 1+ Hypochromasia 1+ Anisocytosis 1+ Microcytosis 1+ Sodium 145 Potassium 3.8 Chloride 111 H Carbon Dioxide 29.0 Anion Gap 5 BUN 17 Creatinine 0.90 Estim Creat Clear Calc 54.30 Est GFR (MDRD) Af Amer 81 Est GFR (MDRD) Non-Af 67 BUN/Creatinine Ratio 18.8 Glucose 101 Calcium 8.6 Clinical Impression(s) from Imaging Studies Abdomen/Pelvis CT 02/23/19 13:05 IMPRESSION: No obstructive uropathy, there is a nonobstructing right renal stone and a simple right renal cyst and there is nonspecific perinephric inflammatory stranding. Fatty liver Normal appendix visualized Uterus is still present, the endometrium cannot be accurately evaluated with CT Electronically Signed: Alexander Pearl MD at 14:37 EDT , Service support , Chest X-Ray 02/23/19 13:41 IMPRESSION: Normal x-ray examination of the chest. Electronically Signed: Alexander Pealr MD at 14:24 EDT , Service support , Chest X-Ray 02/24/19 02:50 IMPRESSION: Cardiomegaly with mild central vascular congestion. No pneumonia. No pleural effusions. Electronically Signed: Keon Obando MD at 3:44 EDT Tel , Service support , Medical Necessity - Tobacco Use Smoking Status: Never smoker Tobacco Use: Non-smoker Assessment/Plan All Active Problems Chills (Acute) Lower back pain (Acute) Infection due to ESBL-producing Escherichia coli (Acute) RECOMMENDATIONS: 1. Continue antimicrobial coverage per infectious diseases recommendations. 2. Continue nocturnal CPAP therapy per home regimen. 3. Encourage incentive spirometer use and mobilize patient as tolerated. IMPRESSIONS: 1. Acute hypoxemic respiratory failure Resolved. The patient's etiology for her decompensation was likely the cons equence of overzealous volume resuscitation coupled with the development of a tachyarrhythmia, leading to flash pulmonary edema. The patient has responded appropriately to the use of BiPAP therapy. The patient is no longer requiring noninvasive positive pressure ventilatory support. In fact, she is maintaining appropriate oxygen saturations on room air. Recommend continuing nocturnal CPAP therapy for underlying TERESA, per home regimen. Encourage incentive spirometer use and mobilize patient as tolerated. 2. Severe sepsis secondary to gram-negative pyelonephritis/bacteremia The patient was more than adequately volume resuscitated. She does appear to be growing ESBL E. coli. Infectious diseases is currently following to assist with antibiotic management. 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 We will continue to monitor accordingly. Cardiology is following. 4. Acute kidney injury Improving. Likely secondary to ATN in the setting of #2. We will continue to monitor urine output accordingly. 5. Obstructive sleep apnea The patient has a self-reported history of obstructive sleep apnea, for which she utilizes nocturnal Pap therapy. Therefore, nocturnal CPAP therapy will be continued per home regimen. 6. Hypertension/hyperlipidemia/depression Complicates care, management, recovery and prognosis. Okay to resume home medications. This note was generated with [employer] software. It may contain incorrect words, spelling, and punctuation that were not noted in checking the note before signing. DISPOSITION: Given the patient's lack of ongoing ICU/pulmonary needs, will sign off. Please call with any additional questions. Code Visit Inpatient E&M: [id number] Subs Hosp L2
[2019-02-27] MEDS: Acetaminophen 325 MG Tablet 650 MG PO (12:50)
--- NOTE | 2019-02-27 12:54 | PN.ID_ITS ---
Patient Problems: Active and Suspected Problems Chills (Acute) Lower back pain (Acute) Infection due to ESBL-producing Escherichia coli (Acute) Subjective: Feeling ok, denies fever. Still with pain in lower back. Had diarrhea after laxative yesterday, only one episode so far today. No abd pain. - Physical Exam General: Alert, Cooperative, No apparent distress Lungs: Clear to auscultation, Normal air movement Cardiovascular: Regular rate, Regular Rhythm Abdomen: Soft, Non Tender, Non-Distended Skin: No rashes Vital Signs Temp Pulse Resp BP Pulse Ox 98.4 F 77 18 142/60 H 96 02/27/19 09:22 02/27/19 12:00 02/27/19 09:22 02/27/19 09:22 02/27/19 09:22 Oxygen Flow Rate (L/min) 2 Oxygen Delivery Method Room Air Weight: 82.3 kg Body Mass Index (BMI) 31.1 Intake and Output for Last 24 Hours 02/25/19 02/26/19 02/27/19 23:59 23:59 23:59 Intake Total 843.1 / 843.1 1347 / 1347 345 / 345 Output Total 2320 / 2320 2925 / 2925 1850 / 1850 Balance -1476.9 / -1476.9 -1578 / -1578 -1505 / -1505 Microbiology Past 72 Hours 02/25/19 09:40 Blood Culture - Preliminary Blood Culture (Wb) - No Site/Description Given No growth in 48 hours. 02/24/19 06:55 Blood Culture - Final Blood Culture (Wb) - Anticubital Right Escherichia coli 02/23/19 15:10 Urine Culture - Final Urine, Clean Catch Presumptive E. coli Laboratory Tests Past 24 Hrs 02/26/19 02/27/19 02/27/19 05:10 05:45 05:45 WBC 21.9 H RBC 3.24 L Hgb 9.4 L Hct 28.8 L MCV 88.9 MCH 29.0 MCHC 32.6 RDW 14.7 H RDW Differential 46.3 H Plt Count 213 MPV 11.1 Immature Gran % (Auto) TRACK VEHICLE REPAIRER Neut % (Auto) TRACK VEHICLE REPAIRER Lymph % (Auto) TRACK VEHICLE REPAIRER [place] % (Auto) TRACK VEHICLE REPAIRER Eos % (Auto) TRACK VEHICLE REPAIRER Baso % (Auto) TRACK VEHICLE REPAIRER Absolute Neuts (auto) 18.4 H Absolute Lymphs (auto) 1.10 Total Counted 100 Neutrophils % (Manual) 78 H Band Neutrophils % 6 H Lymphocytes % (Manual) 5 L Monocytes % (Manual) 7 Eosinophils % (Manual) 2 Metamyelocytes % 2 H Diff Path Review Reviewed May foll Reactive Lymphocytes RARE Platelet Estimate ADEQUATE Polychromasia 1+ Hypochromasia 1+ Anisocytosis 1+ Microcytosis 1+ Sodium 145 Potassium 3.8 Chloride 111 H Carbon Dioxide 29.0 Anion Gap 5 BUN 17 Creatinine 0.90 Estim Creat Clear Calc 54.30 Est GFR (MDRD) Af Amer 81 Est GFR (MDRD) Non-Af 67 BUN/Creatinine Ratio 18.8 Glucose 101 Calcium 8.6 Medical Necessity - Tobacco Use Smoking Status: Never smoker Tobacco Use: Non-smoker Route of nutrition/ use of supplements: [] Nutritional Intake: [] IV Site: [] Ross Catheter: [] - Assessment/Plan Antibiotics: [] Assessment/Plan: [] Active and Suspected Problems Chills (Acute) Lower back pain (Acute) Severe sepsis due to esbl ecoli pyelonephritis with bacteremia and MIHAI - improving. On meropenem. Small nonobstructing stones seen in R kidney on CT. Picc in place, inserted while still bacteremic. 02/25 bcx neg so far. Cont meropenem, will write for outpt erta to be arranged. May be at risk of recurrent infection with stones in place. Had rising wbc this AM and some diarrhea after laxative was given. If diarrhea and wbc improves, ok for d/c home. Will need dose of 1gm of ertapenem here prior to discharge. Will follow, d/w correctional counselor/case manager.
--- NOTE | 2019-02-27 12:56 | PCM.PN.CARD ---
Subjectve: Patient denies any chest pain, shortness of breath, orthopnea. She is resting comfortably lying down flat. Objective: Vital Signs Temp Pulse Resp BP Pulse Ox 98.9 F 74 18 137/62 H 95 02/27/19 12:51 02/27/19 12:51 02/27/19 12:51 02/27/19 12:51 02/27/19 12:51 Oxygen Flow Rate (L/min) 2 Oxygen Delivery Method Room Air Weight: 181 lb 7.047 oz Body Mass Index (BMI) 31.1 Intake and Output for Last 24 Hours 02/25/19 02/26/19 02/27/19 23:59 23:59 23:59 Intake Total 843.1 / 843.1 1347 / 1347 345 / 345 Output Total 2320 / 2320 2925 / 2925 1850 / 1850 Balance -1476.9 / -1476.9 -1578 / -1578 -1505 / -1505 General: Awake, Alert, Oriented x 3 HEENT: Atraumatic Oral: Moist Mucosa Neck: Supple Lungs: Clear to auscultation, - Cardiovascular: Regular Rhythm, Normal S1, Normal S2, No Murmurs Abdomen: Soft Extremities: No edema Skin: No Rashes 02/27/19 05:45: WBC 21.9 H, RBC 3.24 L, Hgb 9.4 L, Hct 28.8 L, MCV 88.9, MCH 29.0, MCHC 32.6, RDW 14.7 H, RDW Differential 46.3 H, Plt Count 213, MPV 11.1, Immature Gran % (Auto) TESTER SEMICONDUCTOR PACKAGES, Neut % (Auto) TESTER SEMICONDUCTOR PACKAGES, Lymph % (Auto) TESTER SEMICONDUCTOR PACKAGES, [place] % (Auto) TESTER SEMICONDUCTOR PACKAGES, Eos % (Auto) TESTER SEMICONDUCTOR PACKAGES, Baso % (Auto) TESTER SEMICONDUCTOR PACKAGES, Absolute Neuts (auto) 18.4 H, Total Counted 100, Neutrophils % (Manual) 78 H, Band Neutrophils % 6 H, Lymphocytes % (Manual) 5 L, Monocytes % (Manual) 7, Eosinophils % (Manual) 2, Metamyelocytes % 2 H 02/27/19 05:45: Sodium 145, Potassium 3.8, Chloride 111 H, Carbon Dioxide 29.0, Anion Gap 5, BUN 17, Creatinine 0.90, Est GFR (MDRD) Af Amer 81, Est GFR (MDRD) Non-Af 67, BUN/Creatinine Ratio 18.8, Glucose 101, Calcium 8.6 Rhythm: EKG: ECHO: Stress Test: Cardiac Cath: PCI: CT Surgery: Holter monitor: EPS: PPM: CXR: Chest CT Scan: Medical Necessity - Tobacco Use Smoking Status: Never smoker Tobacco Use: Non-smoker Assessment/Plan 1. Congestive heart failure: Acute on probably chronic systolic heart failure. Patient is compensated at this time. Patient is tolerating metoprolol succinate. Her creatinine is now within normal limits. Potassium was also within normal limits. We will go ahead and start her on lisinopril 5 mill grams p.o. daily. She can follow-up with us as an outpatient. Patient will need work-up for the etiology of her systolic dysfunction in the form of a cardiac catheterization or a stress test as an outpatient. 2. Atrial tachycardia: No further recurrence. Continue Toprol-XL. We will sign off at this time. Please have the patient follow-up with us as an outpatient when she is being discharged. If we can be of any further assistance please do not hesitate to contact us again. Thank you very much for letting us to part spent in the care of this patient.
[2019-02-27] MEDS: Atorvastatin Calcium 20 MG Tablet PO (21:27)
[2019-02-27] MEDS: Menthol/Lanolin/Calamine/Znox 113 GM Tube 1 APPLIC TOPICAL (21:28)
[2019-02-28] VITALS (12 sets, daily range): BP systolic 138–151; BP diastolic 56–72; PULSE 62–82; RESP 15–16; TEMP 36.5–37.2; O2SAT 93–98
[2019-02-28] MEDS: Enoxaparin 30 MG/0.3 ML Syringe SC (05:16)
[2019-02-28 08:07] LABS: Hematocrit 28.4 % (37-47); Hemoglobin 9.2 g/dl (12.0-15.0); Mean Corp Hgb Conc 32.4 g/gl (32-36); Mean Corpuscular Volume 89.6 fL (81-99); Mean Platelet Vol. 10.6 fl (6.2-12.0); Platelet Count 325 K/mm3 (150-450); RBC Distribution Width CV 14.5 % (11.6-14.6); RBC Distribution Width SD 46.3 fl (35.1-43.9); Red Blood Count 3.17 M/mm3 (4.2-5.4); White Blood Count 19.5 K/mm3 (4.4-11.0)
[2019-02-28 08:13] LABS: Differential Indicated MANUAL DIFF; POSITIVE COUNT YES; POSITIVE DIFFERENTIAL YES; POSITIVE MORPHOLOGY YES
[2019-02-28 08:18] LABS: Anion Gap 6 (5-15); BUN 15 mg/dL (7-18); Calcium,Total 8.7 mg/dL (8.5-10.1); Chloride 107 mmol/L (98-107); Creatinine, Serum 0.84 mg/dL (0.55-1.02); EST Glomerular Filtration Rate 74 mL/min (>60); Est Glom Filt Rate - Afr Amer 89 mL/min (>60); Estimated Creatinine Clearance 58.18 ml/min; Glucose 102 mg/dL (74-106); Magnesium 1.9 mg/dL (1.6-2.6); Potassium 3.8 mmol/L (3.5-5.1); Sodium Level 144 mmol/L (136-145)
--- NOTE | 2019-02-28 08:23 | PN_ITS ---
Patient Problems: Active and Suspected Problems Chills (Acute) Lower back pain (Acute) Infection due to ESBL-producing Escherichia coli (Acute) Subjective: Patient seen per patient's daughter she continues to experience loose bowel movement having gone about 4 times during the evening. WBC count still remains elevated at 19 K Objective: GENERAL: Appears ill looking HEENT: Atraumatic; EYES; Anicteric, Normal Conjunctiva NECK; supple, normal thyroid, RESPIRATORY: Diminished to auscultation bilaterally, CARDIOVASCULAR: Regular S1 S2, GI: soft, non-tender, normoactive bowel sounds, : No Renal angle tenderness; EXTREMITIES: Edema involving upper extremities MUSCULOSKELETAL: No Joint Tenderness; NEURO: Awake; no lateralizing signs. SKIN: No Rash PSYCH; Normal affect Vitals/I&O's: Vital Signs Temp Pulse Resp BP Pulse Ox 98.4 F 67 16 147/72 H 98 02/28/19 03:30 02/28/19 06:43 02/28/19 03:30 02/28/19 03:30 02/28/19 03:30 Oxygen Flow Rate (L/min) 2 Oxygen Delivery Method Room Air Weight: 79.6 kg Body Mass Index (BMI) 31.1 Intake and Output for Last 24 Hours 02/26/19 02/27/19 02/28/19 23:59 23:59 23:59 Intake Total 1347 / 1347 1792 / 1792 115 / 115 Output Total 2925 / 2925 3350 / 3350 Balance -1578 / -1578 -1558 / -1558 115 / 115 Microbiology Past 72 Hours 02/25/19 09:40 Blood Culture (Wb) - No Site/Description Given Blood Culture - Preliminary No growth in 48 hours. 02/24/19 06:55 Blood Culture (Wb) - Anticubital Right Blood Culture - Final Escherichia coli 02/23/19 15:10 Urine, Clean Catch Urine Culture - Final Presumptive E. coli Laboratory Results 02/28/19 07:40: WBC 19.5 H, RBC 3.17 L, Hgb 9.2 L, Hct 28.4 L, MCV 89.6, MCH 29.0, MCHC 32.4, RDW 14.5, RDW Differential 46.3 H, Plt Count 325, MPV 10.6, Neut % (Auto) Not Reportable, Absolute Neuts (auto) Not Reportable, Total Counted Pending 02/28/19 07:40: Sodium 144, Potassium 3.8, Chloride 107, Carbon Dioxide 31.0, Anion Gap 6, BUN 15, Creatinine 0.84, Estim Creat Clear Calc 58.18, Est GFR (MDRD) Af Amer 89, Est GFR (MDRD) Non-Af 74, BUN/Creatinine Ratio 18.0, Glucose 102, Calcium 8.7, Magnesium 1.9 Current Medications Acetaminophen (Tylenol) 650 mg PO Q6H PRN PRN PRN Reason: pain/fever Last Admin: 02/27/19 12:50 Dose: 650 mg Atorvastatin Calcium (Lipitor) 20 mg PO QHS [facility] Last Admin: 02/27/19 21:27 Dose: 20 mg Calamine/Phenol (Calmoseptine Ointment) 1 applic TOPICAL 4X/DAY [facility]; Protocol Last Admin: 02/27/19 21:28 Dose: 1 applicatio Dextrose (D50w Syringe) 0 gm IV X1 PRN; Protocol PRN Reason: Hypoglycemia Enoxaparin Sodium (Lovenox) 30 mg SC DAILY@0600 [facility] Last Admin: 02/28/19 05:16 Dose: 30 mg Folic Acid (Folic Acid) 1 mg PO DAILY [facility] Last Admin: 02/27/19 09:55 Dose: 1 mg Glucagon () 1 mg IM .X1 PRN PRN Reason: Hypoglycemia Heparin Sodium (Beef Lung) () 50 units IV UD PRN PRN Reason: HEPARIN FLUSH Meropenem 1 gm/ Sodium (Chloride) 120 mls @ 33 mls/hr IV Q8 [facility] Last Admin: 02/28/19 05:15 Dose: 33 mls/hr Lisinopril (Zestril) 5 mg PO DAILY [facility] Metoprolol Succinate (Toprol Xl (Beta Elliott)) 25 mg PO DAILY [facility] Last Admin: 02/27/19 09:54 Dose: 25 mg Nutritional Formula (Lactose Free) (Ensure Enlive) 120 ml PO 4X/DAY [facility] Last Admin: 02/27/19 21:28 Dose: Not Given Ondansetron HCl (Zofran) 4 mg IV Q6H PRN PRN PRN Reason: NAUSEA/VOMITING Risperidone (Risperdal) 2 mg PO DAILY [facility] Last Admin: 02/27/19 09:55 Dose: 2 mg Sodium Chloride () 5 - 15 ml IV UD PRN PRN Reason: SALINE FLUSH Last Admin: 02/26/19 22:45 Dose: 10 ml Sodium Chloride () 10 - 20 ml IV UD PRN PRN Reason: PICC FLUSH Last Admin: 02/27/19 05:49 Dose: 20 ml Venlafaxine HCl (Effexor Xr) 75 mg PO DAILY [facility] Last Admin: 02/27/19 09:55 Dose: 75 mg Venlafaxine HCl (Effexor Xr) 150 mg PO DAILY [facility] Last Admin: 02/27/19 09:55 Dose: 150 mg Medical Necessity - Tobacco Use Smoking Status: Never smoker Tobacco Use: Non-smoker Assessment/Plan All Active Problems Chills (Acute) Lower back pain (Acute) Infection due to ESBL-producing Escherichia coli (Acute) Patient is a 63-year-old lady who presented to the emergency department with fever chills as well as back pain. Patient urinalysis was consistent with UTI. CT of the abdomen and pelvis obtained demonstrated a nonobstructing right renal stone and nonspecific perinephric inflammatory stranding. An assessment of sepsis secondary to acute pyelonephritis made admitted for subsequent management in the hospital 1. Sepsis secondary to acute pyelonephritis with E. coli with subsequent bacteremia.: Patient admitted to intensive care unit managed per protocol with aggressive IV fluids broad-spectrum antibiotic therapy (Zosyn) after cultures have been sent.. Patient urine cultures came back positive for ESBL positive E. coli. Patient currently on meropenem consultation placed to infectious disease plan is for patient to be discharged home on ertapenem when medically stable. 2. Acute congestive heart failure with reduced ejection fraction. EF was 40% on echo obtained on 02/24/2019. Findings discussed with patient and family who requested consultation with cardiology. Plan is for patient undergo subsequent evaluation as outpatient with an outpatient stress test or left heart catheterization to evaluate her reduced ejection fraction 3. Acute kidney injury secondary to suspected ATN from patient's sepsis patient kidney function actually did worsen; creatinine down to 1.14 as of 02/26/2018. 4. Acute metabolic encephalopathy secondary to sepsis and acute kidney injury: Acute delirium resolved 5. Dyslipidemia-patient is on statin therapy, continued at home dose 6. Hypertension patient antihypertensive medications on hold 7. Depression patient is on SNRI 8. DVT prophylaxis SC Lovenox dose adjusted for kidney function 9. Diarrhea attributed to patient having received laxatives we will continue to monitor patient daily scheduled senna discontinued Code Visit Inpatient E&M: 80105 Subs Hosp L2
[2019-02-28 09:27] LABS: Eosinophil 3 % (0-5); Lymphocyte 16 % (19-41); Metamyelocyte 6 % (0-1); Monocyte 7 % (0-10); Myelocyte 1 (0-0); Neutrophil-Band 1 % (0-5); Neutrophil-Segmented 66 % (47-70); Total Cells Counted 100 (MANUAL DIFF)
[2019-02-28 09:29] LABS: Absolute Neutrophil Count 13.1 X10^3/uL (2.0-7.7); Lymphocyte # 3.12 X10^3/ul (4.0); Neutrophil # 13.07 X10^3/uL (2.7-7.7)
[2019-02-28 09:30] LABS: Absolute Lymphocyte Count 3.12 X10^3/ul (0.83-4.51); Differential Comment SCANNED; Platelet Estimate ADEQUATE (ADEQ)
[2019-02-28] MEDS: Lisinopril 5 MG Tablet PO (10:14)
[2019-02-28] MEDS: Folic Acid 1 MG Tablet PO (10:15)
[2019-02-28] MEDS: RisperiDONE 2 MG Tablet PO (10:15)
[2019-02-28] MEDS: Menthol/Lanolin/Calamine/Znox 113 GM Tube 1 APPLIC TOPICAL ×4 (10:15→22:05)
[2019-02-28] MEDS: Venlafaxine XR 150 MG Capsule PO (10:15)
[2019-02-28] MEDS: Venlafaxine XR 75 MG Capsule PO (10:15)
[2019-02-28] MEDS: Metoprolol(XL)Succ 25 MG Tablet PO (10:15)
--- NOTE | 2019-02-28 11:22 | CASEMGMT ---
SW met w/pt, assisted pt in completing LW/POA forms. SW gave pt the originals and copies, placed copies in the chart. MARYANNE Hutchinson
[2019-02-28] MEDS: Atorvastatin Calcium 20 MG Tablet PO (21:58)
[2019-02-28] MEDS: Acetaminophen 325 MG Tablet 650 MG PO (21:59)
[2019-02-28] MEDS: 0.9% NaCl Peripheral Flush Adult/Peds IV (22:06)
[2019-03-01] VITALS (16 sets, daily range): BP systolic 120–151; BP diastolic 52–67; PULSE 58–96; RESP 15–16; TEMP 36.8–37.1; O2SAT 94–99
[2019-03-01 05:17] LABS: Hemoglobin 9.6 g/dl (12.0-15.0); Mean Corp Hgb Conc 33.1 g/gl (32-36); Mean Corpuscular Hgb 29.6 pg (27.0-32.0); Mean Corpuscular Volume 89.5 fL (81-99); Mean Platelet Vol. 9.5 fl (6.2-12.0); Platelet Count 396 K/mm3 (150-450); RBC Distribution Width CV 14.5 % (11.6-14.6); RBC Distribution Width SD 47.8 fl (35.1-43.9); Red Blood Count 3.24 M/mm3 (4.2-5.4); White Blood Count 20.1 K/mm3 (4.4-11.0)
[2019-03-01 05:18] LABS: Differential Indicated MANUAL DIFF; POSITIVE COUNT YES; POSITIVE DIFFERENTIAL YES; POSITIVE MORPHOLOGY YES
[2019-03-01 05:30] LABS: Anion Gap 6 (5-15); BUN 14 mg/dL (7-18); BUN/Creat Ratio 18.1 RATIO (10-20); Calcium,Total 8.7 mg/dL (8.5-10.1); Chloride 107 mmol/L (98-107); Creatinine, Serum 0.78 mg/dL (0.55-1.02); EST Glomerular Filtration Rate 80 mL/min (>60); Est Glom Filt Rate - Afr Amer 97 mL/min (>60); Estimated Creatinine Clearance 62.65 ml/min; Glucose 101 mg/dL (74-106); Sodium Level 142 mmol/L (136-145)
[2019-03-01] MEDS: Enoxaparin 30 MG/0.3 ML Syringe SC (05:34)
[2019-03-01] MEDS: 0.9% NaCl Peripheral Flush Adult/Peds IV ×2 (05:38→20:57)
[2019-03-01] MEDS: Acetaminophen 325 MG Tablet 650 MG PO ×3 (05:38→20:56)
[2019-03-01 06:19] LABS: Lymphocyte 11 % (19-41); Metamyelocyte 4 % (0-1); Monocyte 7 % (0-10); Neutrophil-Band 6 % (0-5); Neutrophil-Segmented 72 % (47-70); Total Cells Counted 100 (MANUAL DIFF)
[2019-03-01 06:20] LABS: Anisocytosis 1+; Hypochromasia 1+; Microcytosis 1+; Platelet Estimate ADEQUATE (ADEQ); Polychromasia RARE
[2019-03-01 06:22] LABS: Absolute Lymphocyte Count 2.21 X10^3/ul (0.83-4.51); Absolute Neutrophil Count 15.7 X10^3/uL (2.0-7.7)
--- NOTE | 2019-03-01 09:56 | PCM.PN.HOSP ---
Patient Problems: Active and Suspected Problems Chills (Acute) Lower back pain (Acute) Infection due to ESBL-producing Escherichia coli (Acute) Subjective: Patient seen. Per patient's daughter patient has had episodic delirious state. The frequency of her diarrhea is subsiding. Her WBC count still remains elevated at 20,000 Objective: GENERAL: Appears ill looking HEENT: Atraumatic; EYES; Anicteric, Normal Conjunctiva NECK; supple, normal thyroid, RESPIRATORY: Diminished to auscultation bilaterally, CARDIOVASCULAR: Regular S1 S2, GI: soft, non-tender, normoactive bowel sounds, : No Renal angle tenderness; EXTREMITIES: Edema involving upper extremities MUSCULOSKELETAL: No Joint Tenderness; NEURO: Awake; no lateralizing signs. SKIN: No Rash PSYCH; Normal affect Vitals/I&O's: Vital Signs Temp Pulse Resp BP Pulse Ox 98.6 F 63 16 147/65 H 94 03/01/19 03:00 03/01/19 08:15 03/01/19 08:15 03/01/19 03:00 03/01/19 08:15 Oxygen Flow Rate (L/min) 2 Oxygen Delivery Method Room Air Weight: 76.7 kg Body Mass Index (BMI) 31.1 Intake and Output for Last 24 Hours 02/27/19 02/28/19 03/01/19 23:59 23:59 23:59 Intake Total 1792 / 1792 715 / 715 713 / 713 Output Total 3350 / 3350 Balance -1558 / -1558 715 / 715 713 / 713 Microbiology Past 72 Hours 02/28/19 07:17 Stool C. difficile DNA Amplification - Final 02/25/19 09:40 Blood Culture (Wb) - No Site/Description Given Blood Culture - Preliminary No growth in 48 hours. 02/24/19 06:55 Blood Culture (Wb) - Anticubital Right Blood Culture - Final Escherichia coli Laboratory Results 03/01/19 05:00: WBC 20.1 H, RBC 3.24 L, Hgb 9.6 L, Hct 29.0 L, MCV 89.5, MCH 29.6, MCHC 33.1, RDW 14.5, RDW Differential 47.8 H, Plt Count 396, MPV 9.5, Neut % (Auto) Not Reportable, Absolute Neuts (auto) 15.7 H, Absolute Lymphs (auto) 2.21, Total Counted 100, Neutrophils % (Manual) 72 H, Band Neutrophils % 6 H, Lymphocytes % (Manual) 11 L, Monocytes % (Manual) 7, Metamyelocytes % 4 H, Diff Path Review May foll, Platelet Estimate ADEQUATE, Polychromasia RARE, Hypochromasia 1+, Anisocytosis 1+, Microcytosis 1+ 03/01/19 05:00: Sodium 142, Potassium 4.0, Chloride 107, Carbon Dioxide 29.0, Anion Gap 6, BUN 14, Creatinine 0.78, Estim Creat Clear Calc 62.65, Est GFR (MDRD) Af Amer 97, Est GFR (MDRD) Non-Af 80, BUN/Creatinine Ratio 18.1, Glucose 101, Calcium 8.7 Current Medications Acetaminophen (Tylenol) 650 mg PO Q6H PRN PRN PRN Reason: pain/fever Last Admin: 03/01/19 05:38 Dose: 650 mg Atorvastatin Calcium (Lipitor) 20 mg PO QHS [facility] Last Admin: 02/28/19 21:58 Dose: 20 mg Calamine/Phenol (Calmoseptine Ointment) 1 applic TOPICAL 4X/DAY [facility]; Protocol Last Admin: 02/28/19 22:05 Dose: 1 applicatio Dextrose (D50w Syringe) 0 gm IV X1 PRN; Protocol PRN Reason: Hypoglycemia Enoxaparin Sodium (Lovenox) 30 mg SC DAILY@0600 [facility] Last Admin: 03/01/19 05:34 Dose: 30 mg Folic Acid (Folic Acid) 1 mg PO DAILY [facility] Last Admin: 02/28/19 10:15 Dose: 1 mg Glucagon () 1 mg IM .X1 PRN PRN Reason: Hypoglycemia Heparin Sodium (Beef Lung) () 50 units IV UD PRN PRN Reason: HEPARIN FLUSH Meropenem 1 gm/ Sodium (Chloride) 120 mls @ 33 mls/hr IV Q8 [facility] Last Admin: 03/01/19 05:34 Dose: 33 mls/hr Lisinopril (Zestril) 5 mg PO DAILY [facility] Last Admin: 02/28/19 10:14 Dose: 5 mg Metoprolol Succinate (Toprol Xl (Beta Elliott)) 25 mg PO DAILY [facility] Last Admin: 02/28/19 10:15 Dose: 25 mg Nutritional Formula (Lactose Free) (Ensure Enlive) 120 ml PO 4X/DAY [facility] Last Admin: 02/28/19 22:05 Dose: Not Given Ondansetron HCl (Zofran) 4 mg IV Q6H PRN PRN PRN Reason: NAUSEA/VOMITING Risperidone (Risperdal) 2 mg PO DAILY [facility] Last Admin: 02/28/19 10:15 Dose: 2 mg Sodium Chloride () 5 - 15 ml IV UD PRN PRN Reason: SALINE FLUSH Last Admin: 03/01/19 05:38 Dose: 10 ml Sodium Chloride () 10 - 20 ml IV UD PRN PRN Reason: PICC FLUSH Last Admin: 02/27/19 05:49 Dose: 20 ml Venlafaxine HCl (Effexor Xr) 75 mg PO DAILY [facility] Last Admin: 02/28/19 10:15 Dose: 75 mg Venlafaxine HCl (Effexor Xr) 150 mg PO DAILY [facility] Last Admin: 02/28/19 10:15 Dose: 150 mg Medical Necessity - Tobacco Use Smoking Status: Never smoker Tobacco Use: Non-smoker Assessment/Plan All Active Problems Chills (Acute) Lower back pain (Acute) Infection due to ESBL-producing Escherichia coli (Acute) Patient is a 63-year-old lady who presented to the emergency department with fever chills as well as back pain. Patient urinalysis was consistent with UTI. CT of the abdomen and pelvis obtained demonstrated a nonobstructing right renal stone and nonspecific perinephric inflammatory stranding. An assessment of sepsis secondary to acute pyelonephritis made admitted for subsequent management in the hospital. Patient cultures came back positive for ESBL E. coli in both urine and blood. Plan is for patient to be discharged home with IV ertapenem once medically stable. 1. Sepsis secondary to acute pyelonephritis with E. coli with subsequent bacteremia.: Patient admitted to intensive care unit managed per protocol with aggressive IV fluids broad-spectrum antibiotic therapy (Zosyn) after cultures have been sent.. Patient urine cultures came back positive for ESBL positive E. coli. Patient currently on meropenem consultation placed to infectious disease plan is for patient to be discharged home on ertapenem when medically stable. Patient WBC count still remains persistently high as of 03/01/2019. 2. Acute congestive heart failure with reduced ejection fraction. EF was 40% on echo obtained on 02/24/2019. Findings discussed with patient and family who requested consultation with cardiology. Plan is for patient undergo subsequent evaluation as outpatient with an outpatient stress test or left heart catheterization to evaluate her reduced ejection fraction 3. Acute kidney injury secondary to suspected ATN from patient's sepsis patient kidney function actually did worsen; creatinine down to 1.14 as of 02/26/2018. 4. Acute metabolic encephalopathy secondary to sepsis and acute kidney injury: Acute delirium resolved 5. Dyslipidemia-patient is on statin therapy, continued at home dose 6. Hypertension patient antihypertensive medications on hold 7. Depression patient is on SNRI 8. DVT prophylaxis SC Lovenox dose adjusted for kidney function 9. Diarrhea attributed to patient having received laxatives we will continue to monitor patient daily scheduled senna discontinued Code Visit Inpatient E&M: 76881 Subs Hosp L2
--- NOTE | 2019-03-01 09:59 | PN_ITS ---
Patient Problems: Active and Suspected Problems Chills (Acute) Lower back pain (Acute) Infection due to ESBL-producing Escherichia coli (Acute) Subjective: Patient seen. Per patient's daughter patient has had episodic delirious state. The frequency of her diarrhea is subsiding. Her WBC count still remains elevated at 20,000 Objective: GENERAL: Appears ill looking HEENT: Atraumatic; EYES; Anicteric, Normal Conjunctiva NECK; supple, normal thyroid, RESPIRATORY: Diminished to auscultation bilaterally, CARDIOVASCULAR: Regular S1 S2, GI: soft, non-tender, normoactive bowel sounds, : No Renal angle tenderness; EXTREMITIES: Edema involving upper extremities MUSCULOSKELETAL: No Joint Tenderness; NEURO: Awake; no lateralizing signs. SKIN: No Rash PSYCH; Normal affect Vitals/I&O's: Vital Signs Temp Pulse Resp BP Pulse Ox 98.6 F 63 16 147/65 H 94 03/01/19 03:00 03/01/19 08:15 03/01/19 08:15 03/01/19 03:00 03/01/19 08:15 Oxygen Flow Rate (L/min) 2 Oxygen Delivery Method Room Air Weight: 76.7 kg Body Mass Index (BMI) 31.1 Intake and Output for Last 24 Hours 02/27/19 02/28/19 03/01/19 23:59 23:59 23:59 Intake Total 1792 / 1792 715 / 715 713 / 713 Output Total 3350 / 3350 Balance -1558 / -1558 715 / 715 713 / 713 Microbiology Past 72 Hours 02/28/19 07:17 Stool C. difficile DNA Amplification - Final 02/25/19 09:40 Blood Culture (Wb) - No Site/Description Given Blood Culture - Preliminary No growth in 48 hours. 02/24/19 06:55 Blood Culture (Wb) - Anticubital Right Blood Culture - Final Escherichia coli Laboratory Results 03/01/19 05:00: WBC 20.1 H, RBC 3.24 L, Hgb 9.6 L, Hct 29.0 L, MCV 89.5, MCH 29.6, MCHC 33.1, RDW 14.5, RDW Differential 47.8 H, Plt Count 396, MPV 9.5, Neut % (Auto) Not Reportable, Absolute Neuts (auto) 15.7 H, Absolute Lymphs (auto) 2.21, Total Counted 100, Neutrophils % (Manual) 72 H, Band Neutrophils % 6 H, Lymphocytes % (Manual) 11 L, Monocytes % (Manual) 7, Metamyelocytes % 4 H, Diff Path Review May foll, Platelet Estimate ADEQUATE, Polychromasia RARE, Hypochromasia 1+, Anisocytosis 1+, Microcytosis 1+ 03/01/19 05:00: Sodium 142, Potassium 4.0, Chloride 107, Carbon Dioxide 29.0, Anion Gap 6, BUN 14, Creatinine 0.78, Estim Creat Clear Calc 62.65, Est GFR (MDRD) Af Amer 97, Est GFR (MDRD) Non-Af 80, BUN/Creatinine Ratio 18.1, Glucose 101, Calcium 8.7 Current Medications Acetaminophen (Tylenol) 650 mg PO Q6H PRN PRN PRN Reason: pain/fever Last Admin: 03/01/19 05:38 Dose: 650 mg Atorvastatin Calcium (Lipitor) 20 mg PO QHS [facility] Last Admin: 02/28/19 21:58 Dose: 20 mg Calamine/Phenol (Calmoseptine Ointment) 1 applic TOPICAL 4X/DAY [facility]; Protocol Last Admin: 02/28/19 22:05 Dose: 1 applicatio Dextrose (D50w Syringe) 0 gm IV X1 PRN; Protocol PRN Reason: Hypoglycemia Enoxaparin Sodium (Lovenox) 30 mg SC DAILY@0600 [facility] Last Admin: 03/01/19 05:34 Dose: 30 mg Folic Acid (Folic Acid) 1 mg PO DAILY [facility] Last Admin: 02/28/19 10:15 Dose: 1 mg Glucagon () 1 mg IM .X1 PRN PRN Reason: Hypoglycemia Heparin Sodium (Beef Lung) () 50 units IV UD PRN PRN Reason: HEPARIN FLUSH Meropenem 1 gm/ Sodium (Chloride) 120 mls @ 33 mls/hr IV Q8 [facility] Last Admin: 03/01/19 05:34 Dose: 33 mls/hr Lisinopril (Zestril) 5 mg PO DAILY [facility] Last Admin: 02/28/19 10:14 Dose: 5 mg Metoprolol Succinate (Toprol Xl (Beta Elliott)) 25 mg PO DAILY [facility] Last Admin: 02/28/19 10:15 Dose: 25 mg Nutritional Formula (Lactose Free) (Ensure Enlive) 120 ml PO 4X/DAY [facility] Last Admin: 02/28/19 22:05 Dose: Not Given Ondansetron HCl (Zofran) 4 mg IV Q6H PRN PRN PRN Reason: NAUSEA/VOMITING Risperidone (Risperdal) 2 mg PO DAILY [facility] Last Admin: 02/28/19 10:15 Dose: 2 mg Sodium Chloride () 5 - 15 ml IV UD PRN PRN Reason: SALINE FLUSH Last Admin: 03/01/19 05:38 Dose: 10 ml Sodium Chloride () 10 - 20 ml IV UD PRN PRN Reason: PICC FLUSH Last Admin: 02/27/19 05:49 Dose: 20 ml Venlafaxine HCl (Effexor Xr) 75 mg PO DAILY [facility] Last Admin: 02/28/19 10:15 Dose: 75 mg Venlafaxine HCl (Effexor Xr) 150 mg PO DAILY [facility] Last Admin: 02/28/19 10:15 Dose: 150 mg Medical Necessity - Tobacco Use Smoking Status: Never smoker Tobacco Use: Non-smoker Assessment/Plan All Active Problems Chills (Acute) Lower back pain (Acute) Infection due to ESBL-producing Escherichia coli (Acute) Patient is a 63-year-old lady who presented to the emergency department with fever chills as well as back pain. Patient urinalysis was consistent with UTI. CT of the abdomen and pelvis obtained demonstrated a nonobstructing right renal stone and nonspecific perinephric inflammatory stranding. An assessment of sepsis secondary to acute pyelonephritis made admitted for subsequent management in the hospital. Patient cultures came back positive for ESBL E. coli in both urine and blood. Plan is for patient to be discharged home with IV ertapenem once medically stable. 1. Sepsis secondary to acute pyelonephritis with E. coli with subsequent bacteremia.: Patient admitted to intensive care unit managed per protocol with aggressive IV fluids broad-spectrum antibiotic therapy (Zosyn) after cultures have been sent.. Patient urine cultures came back positive for ESBL positive E. coli. Patient currently on meropenem consultation placed to infectious disease plan is for patient to be discharged home on ertapenem when medically stable. Patient WBC count still remains persistently high as of 03/01/2019. 2. Acute congestive heart failure with reduced ejection fraction. EF was 40% on echo obtained on 02/24/2019. Findings discussed with patient and family who requested consultation with cardiology. Plan is for patient undergo subsequent evaluation as outpatient with an outpatient stress test or left heart catheterization to evaluate her reduced ejection fraction 3. Acute kidney injury secondary to suspected ATN from patient's sepsis patient kidney function actually did worsen; creatinine down to 1.14 as of 02/26/2018. 4. Acute metabolic encephalopathy secondary to sepsis and acute kidney injury: Acute delirium resolved 5. Dyslipidemia-patient is on statin therapy, continued at home dose 6. Hypertension patient antihypertensive medications on hold 7. Depression patient is on SNRI 8. DVT prophylaxis SC Lovenox dose adjusted for kidney function 9. Diarrhea attributed to patient having received laxatives we will continue to monitor patient daily scheduled senna discontinued Code Visit Inpatient E&M: 88446 Subs Hosp L2
[2019-03-01] MEDS: Venlafaxine XR 75 MG Capsule PO (10:04)
[2019-03-01] MEDS: Metoprolol(XL)Succ 25 MG Tablet PO (10:04)
[2019-03-01] MEDS: Folic Acid 1 MG Tablet PO (10:04)
[2019-03-01] MEDS: Venlafaxine XR 150 MG Capsule PO (10:04)
[2019-03-01] MEDS: RisperiDONE 2 MG Tablet PO (10:05)
[2019-03-01] MEDS: Lisinopril 5 MG Tablet PO (10:05)
[2019-03-01] MEDS: Menthol/Lanolin/Calamine/Znox 113 GM Tube 1 APPLIC TOPICAL ×4 (10:06→21:00)
--- NOTE | 2019-03-01 12:26 | CASEMGMT ---
RN CM Note: Call received from Talya @ [facility] trying to ascertain if first dose of ertapenem was given yet in hospital and if dc is today. Per charge nurse, pt will not be discharged today. Call returned to Talya @ [facility] to update that pt is not medically ready for discharge today. Talya requested update to [facility] tomorrow re: dc. Blanche REGALADO RN ACM
[2019-03-01] MEDS: Atorvastatin Calcium 20 MG Tablet PO (20:56)
[2019-03-02] VITALS (7 sets, daily range): BP systolic 140–151; BP diastolic 55–69; PULSE 67–85; RESP 15–20; TEMP 36.5–37.1; O2SAT 95–97
[2019-03-02] MEDS: 0.9% NaCl Peripheral Flush Adult/Peds IV (05:03)
[2019-03-02] MEDS: Enoxaparin 30 MG/0.3 ML Syringe SC (05:04)
[2019-03-02 05:19] LABS: Hematocrit 30.2 % (37-47); Hemoglobin 9.7 g/dl (12.0-15.0); Mean Corp Hgb Conc 32.1 g/gl (32-36); Mean Corpuscular Hgb 29.2 pg (27.0-32.0); Mean Platelet Vol. 9.5 fl (6.2-12.0); Platelet Count 487 K/mm3 (150-450); RBC Distribution Width CV 14.6 % (11.6-14.6); Red Blood Count 3.32 M/mm3 (4.2-5.4); White Blood Count 19.2 K/mm3 (4.4-11.0)
[2019-03-02 05:20] LABS: Differential Indicated MANUAL DIFF; POSITIVE COUNT YES; POSITIVE DIFFERENTIAL NO; POSITIVE MORPHOLOGY YES
[2019-03-02 05:32] LABS: Anion Gap 6 (5-15); BUN 16 mg/dL (7-18); BUN/Creat Ratio 20.1 RATIO (10-20); Calcium,Total 8.9 mg/dL (8.5-10.1); Chloride 108 mmol/L (98-107); EST Glomerular Filtration Rate 78 mL/min (>60); Est Glom Filt Rate - Afr Amer 94 mL/min (>60); Estimated Creatinine Clearance 61.09 ml/min; Glucose 102 mg/dL (74-106); Potassium 4.2 mmol/L (3.5-5.1); Sodium Level 142 mmol/L (136-145)
[2019-03-02 07:03] LABS: Eosinophil 1 % (0-5); Lymphocyte 8 % (19-41); Metamyelocyte 2 % (0-1); Monocyte 4 % (0-10); Neutrophil-Band 3 % (0-5); Neutrophil-Segmented 82 % (47-70); Total Cells Counted 100 (MANUAL DIFF)
[2019-03-02 07:04] LABS: Absolute Lymphocyte Count 1.54 X10^3/ul (0.83-4.51); Hypochromasia 3+; Lymphocyte # 1.54 X10^3/ul (4.0); Platelet Estimate ADEQUATE (ADEQ)
[2019-03-02 07:05] LABS: Absolute Neutrophil Count 16.1 X10^3/uL (2.0-7.7); Neutrophil # 16.13 X10^3/uL (2.7-7.7); Red Cell Morphology NORM C+C NORMAL (NORM C&C)
[2019-03-02] MEDS: Venlafaxine XR 150 MG Capsule PO (09:46)
[2019-03-02] MEDS: RisperiDONE 2 MG Tablet PO (09:46)
[2019-03-02] MEDS: Lisinopril 5 MG Tablet PO (09:46)
[2019-03-02] MEDS: Venlafaxine XR 75 MG Capsule PO (09:46)
[2019-03-02] MEDS: Metoprolol(XL)Succ 25 MG Tablet PO (09:46)
[2019-03-02] MEDS: Folic Acid 1 MG Tablet PO (09:46)
[2019-03-02] MEDS: Menthol/Lanolin/Calamine/Znox 113 GM Tube 1 APPLIC TOPICAL ×2 (09:47→14:07)
--- NOTE | 2019-03-02 13:19 | PCM.PN.ID ---
Patient Problems: Active and Suspected Problems Chills (Acute) Lower back pain (Acute) Infection due to ESBL-producing Escherichia coli (Acute) Subjective: Feeling ok, no fever, no abd pain, no diarrhea. - Physical Exam General: Alert, Cooperative, No apparent distress Lungs: Clear to auscultation, Normal air movement Cardiovascular: Regular rate, Regular Rhythm Abdomen: Soft, Non Tender, Non-Distended Skin: No rashes Vital Signs Temp Pulse Resp BP Pulse Ox 97.7 F L 70 18 151/69 H 95 03/02/19 09:31 03/02/19 11:40 03/02/19 09:31 03/02/19 09:46 03/02/19 09:31 Oxygen Flow Rate (L/min) 2 Oxygen Delivery Method Room Air Weight: 76.5 kg Body Mass Index (BMI) 31.1 Orthostatic Vital Signs Start: 03/01/19 23:38 Freq: q24h Status: Active Protocol: Activity Type Activity Date Activity User E-Sign Co-Sign Detail Recorded Client Recorded Date Recorded By Document 03/01/19 23:38 [facility] [id number] 03/01/19 23:39 [facility] 03/01/19 23:38 Orthostatic Vitals Standing -Blood Pressure (90/60-120/80) 121/57 H -Extremity Use Left Arm -Pulse Rate (60-100) 96 Sitting -Blood Pressure (90/60-120/80) 138/67 H -Extremity Use Left Arm -Pulse Rate (60-100) 79 Lying -Blood Pressure (90/60-120/80) 138/60 H -Extremity Use Left Arm -Pulse Rate (60-100) 78 Intake and Output for Last 24 Hours 02/28/19 03/01/19 03/02/19 23:59 23:59 23:59 Intake Total 715 / 715 1313 / 1313 1073 / 1073 Balance 715 / 715 1313 / 1313 1073 / 1073 Microbiology Past 72 Hours 02/25/19 09:40 Blood Culture - Final Blood Culture (Wb) - No Site/Description Given No growth in 5 days. 02/28/19 07:17 C. difficile DNA Amplification - Final Stool Laboratory Tests Past 24 Hrs 03/02/19 03/02/19 05:00 05:00 WBC 19.2 H RBC 3.32 L Hgb 9.7 L Hct 30.2 L MCV 91.0 MCH 29.2 MCHC 32.1 RDW 14.6 RDW Differential 47.0 H Plt Count 487 H MPV 9.5 Neut % (Auto) Not Reportable Absolute Neuts (auto) 16.1 H Absolute Lymphs (auto) 1.54 Total Counted 100 Neutrophils % (Manual) 82 H Band Neutrophils % 3 Lymphocytes % (Manual) 8 L Monocytes % (Manual) 4 Eosinophils % (Manual) 1 Metamyelocytes % 2 H Diff Path Review May foll Platelet Estimate ADEQUATE RBC Morphology NORM C+C Hypochromasia 3+ Sodium 142 Potassium 4.2 Chloride 108 H Carbon Dioxide 28.0 Anion Gap 6 BUN 16 Creatinine 0.80 Estim Creat Clear Calc 61.09 Est GFR (MDRD) Af Amer 94 Est GFR (MDRD) Non-Af 78 BUN/Creatinine Ratio 20.1 H Glucose 102 Calcium 8.9 Medical Necessity - Tobacco Use Smoking Status: Never smoker Tobacco Use: Non-smoker Route of nutrition/ use of supplements: [] Nutritional Intake: [] IV Site: [] Ross Catheter: [] - Assessment/Plan Antibiotics: [] Assessment/Plan: [] Active and Suspected Problems Chills (Acute) Lower back pain (Acute) Severe sepsis due to esbl ecoli pyelonephritis with bacteremia and MIHAI - improving. On meropenem. Small nonobstructing stones seen in R kidney on CT. Picc in place, inserted while still bacteremic. 02/25 bcx neg so far. Wbc stable, cdiff neg, diarrhea resolved. Got dose of erta today, ok for d/c home. Will follow, d/w case maker.
--- NOTE | 2019-03-02 13:25 | CASEMGMT ---
Per Dr. Walter, pt is ok to be discharged today. Call to Rach at [facility] and she states that they will deliver antibx/supplies this evening and she states she will get ahold of daughter regarding same. Call to Elle at [facility] to notify of same and that 1st ertapenem dose was given 03/02/19 at 0900, voices understanding. Nina CARIAS CM
[2019-03-02 14:43] LABS: Pathologist Review Reviewed
[2019-03-02 14:49] LABS: Pathologist Review Reviewed
[2019-03-02 14:54] LABS: Pathologist Review Reviewed
[2019-03-02 14:56] LABS: Pathologist Review Reviewed
--- NOTE | 2019-03-02 15:08 | DCINST_ITS ---
- Discharge Diagnoses Current Active Problems: Current Active and Chronic Problems Chills (Acute) Lower back pain (Acute) Infection due to ESBL-producing Escherichia coli (Acute) You will use the following diet at home:: No restrictions Your food should be the consistency of: Regular Your liquids should be the consistency of: Regular/Thin Discharge Activity: Return to Normal Activity Weight Bearing Status: Full weight bearing Allergies/Adverse Reactions: Allergies No Known Allergies Allergy (Verified 02/23/19 12:14) Medications to take at Discharge Folic Acid 1 mg PO DAILY 02/23/19 Lisinopril 20 mg PO DAILY 02/23/19 Melatonin 10 mg PO QHS 02/23/19 Multivitamins,Therapeutic [Multivitamin] 1 tablet PO DAILY 02/23/19 Risperidone 2 mg PO DAILY 02/23/19 Simvastatin 40 mg PO QHS 02/23/19 Venlafaxine HCl [Venlafaxine HCl ER] 75 mg PO DAILY 02/23/19 Venlafaxine HCl [Venlafaxine HCl ER] 150 mg PO DAILY 02/23/19 Ertapenem Sodium [Ertapenem] 1 gm IV DAILY #8 vial 02/26/19 Acetaminophen [Tylenol Tablet] 650 mg PO Q6H PRN PRN tablet 03/02/19 Metoprolol(XL)Succ [Toprol Xl (Beta Elliott)] 25 mg PO DAILY #30 tab 03/02/19 The following prescriptions were given: Ertapenem Sodium [Ertapenem] 1 gm IV DAILY #8 vial Metoprolol(XL)Succ [Toprol Xl (Beta Elliott)] 25 mg PO DAILY #30 tab Primary Care Physician: Juvencio Davila MD [Primary Care Provider] - Please follow up with your Primary Care Physician in: next week Test Results: Test results from this visit will be discussed in further detail at your follow- up appointment, if applicable. Please Follow Up With: Anita Arrieta MD When: 03/18/19 at 1100 am [phone]
--- NOTE | 2019-03-03 18:31 | DS.PCM_ITS ---
Discharge Date and Diagnosis Date of Admission: 02/23/19 Date of Discharge: 03/02/19 - Primary Discharge Diagnosis #1 Severe sepsis secondary to acute pyelonephritis with E. coli #2 acute systolic congestive heart failure with reduced ejection fraction-40% #3 acute kidney injury secondary to ATN from acute sepsis #4 acute metabolic encephalopathy secondary to sepsis #5 essential hypertension #6 chronic depression #7 acute hypoxic respiratory failure secondary to systolic CHF #8 obstructive sleep apnea #9 intermediate troponin elevation-etiology unclear, possibly secondary to type II non-STEMI #10 atrial tachycardia Hospital Course and Treatment Operations: None Procedures: 2-D Echocardiogram Summary of Care Provided: The patient is a 63 year old F who was seen in the emergency room at [facility] with a chief complaint of chills and low back pain. While the patient was being examined in the emergency room, patient's temperature spiked to 105 degrees, patient was confused on evaluation in the ER, labs were obtained which showed an elevated white blood cell count of 12, hemoglobin was 10.9, creatinine was 1.71, BUN was 29, AST was elevated at 74, ALT was elevated at 75, alkaline phosphatase is elevated at 120, lactic acid was elevated at 2, and patient's urinalysis indicated a urinary tract infection. Patient had a CT of her abdomen and pelvis which showed a nonobstructing right renal stone and nonspecific perinephric inflammatory stranding on the right. Patient was given IV fluids and IV antibiotics, she was admitted initially to PCU but was transferred to ICU due to tachycardia and increased respiratory distress. Echocardiogram was obtained which showed a decreased ejection fraction, chest x-ray revealed acute CHF. Beta natruretic peptide was elevated at 219.9. IV antibiotics were continued and the patient's blood culture and urine culture were positive for E. coli. Patient improved during her hospital stay, her mental status improved also. Patient was seen in consultation by infectious diseases and cardiology. Was seen by PT and OT during her hospital stay. On 03/02/2019, patient was seen and examined: On examination she appeared in good health and spirits. Vital signs as documented. Skin warm and dry and without overt rashes. Neck without JVD. Lungs clear. Heart exam notable for regular rhythm, normal sounds and absence of murmurs, rubs or gallops. Abdomen unremarkable and without evidence of organomegaly, masses, or abdominal aortic enlargement. Extremities nonedematous. Neuro: Cranial nerves II through XII are grossly intact, no focal motor deficits were noted, sensation to light touch and pinprick is intact. Psych: Patient is alert and oriented x3, she does not appear anxious or depressed On 03/02/2019, patient was seen and examined and felt to be in stable condition for discharge home, she was to receive IV antibiotics for an additional 8 days, arrangements were made for the patient to follow-up with cardiology as an outpatient to have an outpatient evaluation for either a stress test or a cardiac catheterization. - Physical Exam Vital Signs Temp Pulse Resp BP Pulse Ox 97.9 F 78 20 H 140/55 H 97 03/02/19 14:04 03/02/19 14:04 03/02/19 14:04 03/02/19 14:04 03/02/19 14:04 Oxygen Flow Rate (L/min) 2 Oxygen Delivery Method Room Air Weight: 76.5 kg Body Mass Index (BMI) 31.1 Intake and Output for Last 24 Hours 03/01/19 03/02/19 03/03/19 23:59 23:59 23:59 Intake Total 1313 / 1313 1073 / 1073 Balance 1313 / 1313 1073 / 1073 Microbiology Past 72 Hours 02/25/19 09:40 Blood Culture - Final Blood Culture (Wb) - No Site/Description Given No growth in 5 days. Discharge Activity: Return to Normal Activity Weight Bearing Status: Full weight bearing Home Medications: Medications to take at Discharge Folic Acid 1 mg PO DAILY 02/23/19 Lisinopril 20 mg PO DAILY 02/23/19 Melatonin 10 mg PO QHS 02/23/19 Multivitamins,Therapeutic [Multivitamin] 1 tablet PO DAILY 02/23/19 Risperidone 2 mg PO DAILY 02/23/19 Simvastatin 40 mg PO QHS 02/23/19 Venlafaxine HCl [Venlafaxine HCl ER] 75 mg PO DAILY 02/23/19 Venlafaxine HCl [Venlafaxine HCl ER] 150 mg PO DAILY 02/23/19 Ertapenem Sodium [Ertapenem] 1 gm IV DAILY #8 vial 02/26/19 Acetaminophen [Tylenol Tablet] 650 mg PO Q6H PRN PRN tablet 03/02/19 Metoprolol(XL)Succ [Toprol Xl (Beta Elliott)] 25 mg PO DAILY #30 tab 03/02/19 Following Prescrptions Were Given to Patient: Ertapenem Sodium [Ertapenem] 1 gm IV DAILY #8 vial Metoprolol(XL)Succ [Toprol Xl (Beta Elliott)] 25 mg PO DAILY #30 tab Primary Care Physician: Juvencio Davila MD [Primary Care Provider] - Please follow up with your Primary Care Physician in: next week Please Follow Up With: Anita Arrieta MD When: 03/18/19 at 1100 am [phone] Please Follow Up With: Andrew Davila MD Disposition: Home with Home Health Minutes spent on discharge:: 34 Patient Condition:: Stable Medical Necessity - Tobacco Use Smoking Status: Never smoker Tobacco Use: Non-smoker Meaningful Use Info Meaningful Use Diagnoses (Choose all that apply): CHF - CHF KENDALL/ARB ordered at discharge?: Yes Documented LVEF (%): 40 Code Visit Inpatient E&M: 17343 Disch Hosp
== END 2019-03-02 16:48 | disposition home or self-care (01) | DRG 871 ==
LOC: ED 13:27 → PCU 17:25 → ICU 02-24 03:20 → PCU 02-25 11:43
PROVIDERS: Internal Medicine; Internal Medicine Critical Care Medicine; Admitting Provider Internal Medicine; Emergency Provider Emergency Medicine; Family Provider Family Medicine; PCP Family Medicine; Visit Provider Internal Medicine
DX: A41.51 Sepsis due to Escherichia coli [E. coli] (principal); G93.41 Metabolic encephalopathy; J96.01 Acute respiratory failure with hypoxia; I50.21 Acute systolic (congestive) heart failure; N17.0 Acute kidney failure with tubular necrosis; I21.A1 Myocardial infarction type 2; N10 Acute pyelonephritis; I47.1 Supraventricular tachycardia; R65.20 Severe sepsis without septic shock; I11.0 Hypertensive heart disease with heart failure; E78.5 Hyperlipidemia, unspecified; G47.33 Obstructive sleep apnea (adult) (pediatric); F32.9 Major depressive disorder, single episode, unspecified; N20.0 Calculus of kidney
CPT/HCPCS: 36415; 36569; 71045; 74176; 80048; 80076; 81001; 83605; 83690; 83735; 83880; 84484; 85025; 87040; 87077; 87086; 87088; 87186; 87493; 87633; 87641; 93005; 93306; 94002; 97110; 97116; 97162; 97166; 97530; 97802; 99284; J2185; J7030; J7040; J7050; P9612; A4216; J2405

== ENCOUNTER 2019-03-09 11:15 | Outpatient (RCR) | payer OTHER, SELFPAY ==
[2019-02-23 18:12] VITALS: BMI 31.1
[2019-03-09 11:48] LABS: Hematocrit 30.5 % (37-47); Hemoglobin 9.6 g/dl (12.0-15.0); Mean Corp Hgb Conc 31.5 g/gl (32-36); Mean Corpuscular Volume 92.1 fL (81-99); Mean Platelet Vol. 9.6 fl (6.2-12.0); Platelet Count 753 K/mm3 (150-450); RBC Distribution Width CV 13.8 % (11.6-14.6); RBC Distribution Width SD 46.3 fl (35.1-43.9); Red Blood Count 3.31 M/mm3 (4.2-5.4); White Blood Count 8.3 K/mm3 (4.4-11.0)
[2019-03-09 11:53] LABS: Scan Indicated on CBC? Y/N YES- FLAGS NOTED
[2019-03-09 13:19] LABS: AST(SGOT) 24 U/L (15-37); Alanine Aminotransfer ALT/SGPT 38 U/L (13-56); Albumin, Serum 2.2 g/dL (3.2-5.0); Alkaline Phosphatase 110 U/L (45-117); Anion Gap 7 (5-15); BUN 16 mg/dL (7-18); BUN/Creat Ratio 27.3 RATIO (10-20); Bilirubin, Direct 0.07 mg/dL (0.00-0.30); Calcium,Total 7.5 mg/dL (8.5-10.1); Chloride 112 mmol/L (98-107); Creatinine, Serum 0.59 mg/dL (0.55-1.02); EST Glomerular Filtration Rate 111 mL/min (>60); Est Glom Filt Rate - Afr Amer 134 mL/min (>60); Glucose 73 mg/dL (74-106); Potassium 3.5 mmol/L (3.5-5.1); Protein, Total 6.2 g/dL (6.4-8.2); Sodium Level 143 mmol/L (136-145)
[2019-03-11 10:13] LABS: Pathologist Review Reviewed
== END 2019-03-20 23:59 ==
LOC: HHLAB 11:15
PROVIDERS: Family Provider Family Medicine; PCP Family Medicine; Referring Provider Internal Medicine Infectious Disease; Visit Provider Internal Medicine Infectious Disease
DX: A41.51 Sepsis due to Escherichia coli [E. coli] (principal); N10 Acute pyelonephritis
CPT/HCPCS: 80048; 80076; 85027

== ENCOUNTER 2019-04-02 09:06 | Day surgery (SDC) | payer OTHER, SELFPAY ==
[2019-03-18 11:01] VITALS: BMI 29.6
--- NOTE | 2019-03-20 09:32 | RAD_ITS ---
STUDY: X-RAY CHEST REASON FOR EXAM: Female, 63 years old. Chest pain. TECHNIQUE: PA and lateral views of the chest. COMPARISON: Comparison is made with prior study February 24, 2019. FINDINGS: Elevation of the right hemidiaphragm. There is no demonstrated pleural abnormality. Normal size heart. Normal mediastinum and danielle. Normal visualized pulmonary arteries. Normal visualized aortic arch and descending thoracic aorta. Normal visualized thoracic spine. Normal visualized ribs, clavicles, and shoulders. There is no demonstrated abnormality of the visualized soft tissue structures of the upper abdomen. RAD/Chest PA and Lateral IMPRESSION: Hyperinflation. Electronically Signed: Jw Stuart, at 15:02 EDT , Service support ,
[2019-03-20 10:55] LABS: Absolute Lymphocyte Count 2.15 X10^3/ul (0.83-4.51); Basophil# 0.05 X10^3/uL; Basophil% 0.6 % (0-1); Eosinophil# 0.13 X10^3/uL; Eosinophils% 1.7 % (0-5); Hematocrit 33.5 % (37-47); Hemoglobin 10.7 g/dl (12.0-15.0); Lymphocyte # 2.15 X10^3/ul (4.0); Lymphocyte % 27.4 % (19-41); Mean Corp Hgb Conc 31.9 g/gl (32-36); Mean Corpuscular Hgb 29.2 pg (27.0-32.0); Mean Corpuscular Volume 91.5 fL (81-99); Mean Platelet Vol. 10.3 fl (6.2-12.0); Monocyte# 0.55 X10^3/uL; Neutrophil # 4.95 X10^3/uL (2.7-7.7); Platelet Count 374 K/mm3 (150-450); RBC Distribution Width CV 13.9 % (11.6-14.6); RBC Distribution Width SD 45.7 fl (35.1-43.9); Red Blood Count 3.66 M/mm3 (4.2-5.4); White Blood Count 7.9 K/mm3 (4.4-11.0)
[2019-03-20 10:59] LABS: POSITIVE COUNT NO; POSITIVE DIFFERENTIAL NO; POSITIVE MORPHOLOGY NO
[2019-03-20 11:25] LABS: Anion Gap 8 (5-15); BUN 19 mg/dL (7-18); BUN/Creat Ratio 20.2 RATIO (10-20); Calcium,Total 9.1 mg/dL (8.5-10.1); Chloride 105 mmol/L (98-107); Creatinine, Serum 0.94 mg/dL (0.55-1.02); EST Glomerular Filtration Rate 64 mL/min (>60); Est Glom Filt Rate - Afr Amer 78 mL/min (>60); Glucose 97 mg/dL (74-106); Potassium 4.4 mmol/L (3.5-5.1); Sodium Level 141 mmol/L (136-145)
[2019-03-21 01:25] VITALS: BMI 31.1
[2019-04-01 08:07] VITALS: BMI 29.6
--- NOTE | 2019-04-02 11:25 | CL.D_ITS ---
Patient Name: KAMILA SUAREZ Study Date: 04/02/2019 Performing: Ruddy Arrieta MD Ht: 61.81 inches 157 cm : 1955 Wt: 160.94 lbs 73 kg Age: 63 Gender: female BSA: 1.74 PROCEDURE(S) PERFORMED VC94-HLO/COR/LV CLINICAL PROFILE AND INDICATIONS Indications: Cardiomyopathy Heart Failure: None Stress/Imaging Stress/Image Study Performed: No CAD Presentations: No Sxs, no angina. CONCLUSIONS No significant obstructive stenoses Preserved LV systolic function. No significant or MR RECOMMENDATIONS Risk factor modification DESCRIPTION OF PROCEDURE The patient arrived to the procedure lab. The risks and benefits of the procedure as well as a full d escription of our services here and current unavailability of surgical backup were fully explained to the patient and/or their significant other prior to the catheterization. The Timeout was completed, verifying the correct patient and procedure. The patient's procedural site was prepped and draped in the usual fashion. Local anesthetic was given subcutaneously to right radial region with Lidocaine 2% . Using a modified Seldinger technique, arterial access was obtained via the right radial artery, a 6 Fr sheath was inserted. Left Coronary Artery selective angiography was performed in multiple views u sing a 5 Fr. JL3.5 catheter. Right Coronary Artery selective angiography was then performed in multip le views using a 5 Fr. JR 4 catheter. Left Ventriculography was performed in ORTA projection using a 5 Fr. JR 4. LV to AO pullback pressures were then recorded.The arterial sheath was pulled and a TR Band was applied for hemostasis, 13cc of air CORONARY ANGIOGRAPHY DOMINANCE: Right Dominant LEFT HEART ASSESSMENT Left Ventricular Ejection Fraction: by LV Gram 55 % LEFT MAIN: Angiographically normal LEFT ANTERIOR DESCENDING ARTERY: Mild luminal irregularities CIRCUMFLEX ARTERY: Mild luminal irregularities RIGHT CORONARY ARTERY: Mild luminal irregularities VALVE FINDINGS: No Aortic Valve Stenosis No Mitral Insufficency COMPLICATIONS No Complications PROCEDURE MEDICATIONS Versed 1 mg IV Fentanyl 50 mcg IV Oxygen: 2 L/min via nasal cannula Heparin given IA 04/02/2019 10:42:43 Verapamil 2.5mg, Ntg 100mcgs, 3000 units of Heparin given IA 04/02/2019 10:42:43 SUMMARY OF HEMODYNAMIC DATA Time AIR REST ECG 09:37:17 AO 135/70 (96) SA 10:44:37 LV 133/-4, 12 10:48:25 LV 136/-4, 11 10:48:31 LVp 123/0, 11 10:49:11 AOp 128/64 (91) 10:49:16 Signed By Ruddy Arrieta MD On 04/02/2019 11:24:45 AM Ruddy Arrieta MD
== END 2019-04-02 13:35 | disposition home or self-care (01) ==
LOC: CLSP 09:07
PROVIDERS: Family Provider Family Medicine; PCP Family Medicine; Referring Provider Specialist; Visit Provider Specialist
DX: I42.9 Cardiomyopathy, unspecified (principal); I50.22 Chronic systolic (congestive) heart failure; I47.1 Supraventricular tachycardia; Z79.899 Other long term (current) drug therapy; Z79.82 Long term (current) use of aspirin
CPT/HCPCS: 36415; 71046; 80048; 85025; 93458; 99152; 99153; J7040; Q9967; C1769; C1894

== ENCOUNTER 2019-10-11 13:27 | Emergency (ER) | payer OTHER, SELFPAY ==
[2019-04-15 10:33] VITALS: BMI 30.7
[2019-10-11 13:28] VITALS: BP 100/79; PULSE 119; RESP 20; TEMP 37.2; O2SAT 97; BMI 35.4
--- NOTE | 2019-10-11 14:09 | ED.DCSUM_ITS ---
- ER Visit Summary Date of Service: 10/11/19 Chief Complaint: Fever, back pain, headache History of Present Illness: The patient is a 64 F who presents with back pain, fevers, and headaches for the past 5 days. Patient states she had similar symptoms when she had urosepsis. Family was concerned that she may have urosepsis again. Patient denies any dysuria or hematuria but states she never had any symptoms with her prior episode of urosepsis. Patient states her pain is over her low back. Patient states nothing makes it better or worse. Patient describes her pain as dull. Patient states her fever has been up to 102.8 at home. Patient does admit to a slight cough. Patient denies any nausea or vomiting. Physical Examination: Vital signs are stable except for a mild tachycardia of 119. Patient is afebrile here. Patient is in no acute distress. Oral mucosa is pink and moist. Neck is supple. Trachea is midline. There is no JVD. Heart was regular rate and rhythm. Lungs are clear and equal bilaterally. Abdomen is soft. Bowel sounds are normal. There is no tenderness. Cranial nerves II through XII are intact. There are no focal motor or sensory deficits noted. Test Results: CBC showed a mild leukocytosis of 16.9. Basic metabolic profile was within normal limits. Urinalysis shows leukocyte esterase of 500 and positive nitrates. There is 2+ bacteria. There were only 0-5 white blood cells however. Emergency Department Course and Treatment: Patient was given Tylenol here. Patient was given a dose of Rocephin here. Patient was given a prescription for Macrobid. Patient was instructed to follow-up with her primary care physician in 5 to 7 days. Patient understood and was agreeable with the plan. All questions were answered. Disposition: Discharge home Impression: Urinary tract infection This note was generated with [employer] dictation software. It may contain incorrect words, spelling, and punctuation that were not noted in review of the chart prior to signing ED Disposition - Plan for ED Patient: Disposition: Home or Assisted Living Diagnosis: Urinary tract infection Instructions: Bladder Infection, Female (Adult) Prescriptions: Nitrofurantoin Macrocrystals [Macrobid] 100 mg PO Q12 #14 cap Prescription Printed Referrals: Juvencio Davila MD [Primary Care Provider] - 5-7 Days
[2019-10-11 14:23] LABS: Absolute Lymphocyte Count 1.79 X10^3/uL (0.83-4.51); Absolute Neutrophil Count 13.1 X10^3/uL (2.0-7.7); Basophil# 0.02 X10^3/uL; Basophil% 0.1 % (0-1); Eosinophil# 0.01 X10^3/uL; Eosinophils% 0.1 % (0-5); Hematocrit 38.6 % (37-47); Hemoglobin 12.8 g/dL (12.0-15.0); Lymphocyte # 1.79 X10^3/ul (4.0); Lymphocyte % 10.6 % (19-41); Mean Corp Hgb Conc 33.2 g/dL (32-36); Mean Corpuscular Hgb 30.1 pg (27.0-32.0); Mean Corpuscular Volume 90.8 fL (81-99); Mean Platelet Vol. 10.6 fl (6.2-12.0); Monocyte# 1.94 X10^3/uL; Monocyte% 11.5 % (0-10); NRBC Flagged by Analyzer 0 % (0-5); Neutrophil # 13.08 X10^3/uL (2.7-7.7); Neutrophil % 77.1 % (47-70); POSITIVE DIFFERENTIAL YES; Platelet Count 213 K/mm3 (150-450); RBC Distribution Width CV 12.8 % (11.6-14.6); RBC Distribution Width SD 42.2 fl (35.1-43.9); Red Blood Count 4.25 M/mm3 (4.2-5.4); White Blood Count 16.9 K/mm3 (4.4-11.0)
[2019-10-11 14:30] LABS: Differential Indicated SCAN CRITERIA MET
[2019-10-11 14:40] LABS: Anion Gap 5 (5-15); BUN 13 mg/dL (7-18); BUN/Creat Ratio 13.8 RATIO (10-20); Chloride 107 mmol/L (98-107); Creatinine, Serum 0.94 mg/dL (0.55-1.02); EST Glomerular Filtration Rate 64 mL/min (>60); Est Glom Filt Rate - Afr Amer 78 mL/min (>60); Estimated Creatinine Clearance 49.08 ml/min; Glucose 117 mg/dL (74-106); Potassium 4.2 mmol/L (3.5-5.1); Sodium Level 138 mmol/L (136-145)
[2019-10-11 14:44] LABS: Differential Comment SCANNED
[2019-10-11 15:44] VITALS: RESP 18
[2019-10-11 15:46] LABS: Mucous, Urine 0 SEEN /hpf (<or=2+); Red Blood Cells-Urine 0 SEEN /hpf (0-5); Squamous Epithelial Cells - UA 0 SEEN /hpf (5-10)
[2019-10-11 15:47] LABS: Color, Urine Yellow (Yellow); Glucose, Dipstick Normal (Normal); Ketone-Dipstick 5 mg/dl (Negative); Leukocyte Esterase-Dipstick 500 /ul (Negative); Nitrite-Dipstick Positive (Negative); Occult Blood-Urine 50 /ul (Negative); Protein-Dipstick 15 mg/dl (Negative); Specific Gravity, Urine 1.015 (1.002-1.030); Urine Bilirubin Dipstick Negative (Negative); Urine Clarity Sl. Cloudy (Clear); Urine Urobilinogen Normal (Normal)
[2019-10-11 15:53] LABS: Bacteria 2+ /hpf (None Seen); White Blood Cells 0-5 SEEN /hpf (0-5)
[2019-10-11] MEDS: Ceftriaxone 1 GM/50 ML BAG IV (16:25)
[2019-10-11] MEDS: Acetaminophen 500 MG Tablet 1000 MG PO (16:31)
[2019-10-11 17:45] VITALS: BP 127/49; RESP 18
[2019-10-12 12:09] LABS: Pathologist Review Reviewed
--- NOTE | 2019-10-13 15:27 | ED.RN ---
URINE CULTURE RESULTS ARRIVED, PHYSICIAN LOOKED AT RESULTS AND PT IS BEING CORRECTLY TREATED.
== END 2019-10-11 17:46 | disposition home or self-care (01) ==
PROVIDERS: Emergency Provider Emergency Medicine; Family Provider Family Medicine; PCP Family Medicine
DX: N39.0 Urinary tract infection, site not specified (principal); I10 Essential (primary) hypertension; R05 Cough; R00.0 Tachycardia, unspecified; R51 Headache; Z79.82 Long term (current) use of aspirin; Z79.899 Other long term (current) drug therapy
CPT/HCPCS: 80048; 81001; 85025; 87086; 87088; 87186; 96365; 99284; J7050; A4216

== ENCOUNTER 2022-01-23 15:10 | Outpatient (CLI) | payer OTHER, SELFPAY ==
--- NOTE | 2022-01-23 15:32 | BI_ITS ---
MAMMOGRAPHY - BILATERAL SCREENING REASON FOR EXAM: Female, 66 years old. Routine annual screening examination. PERTINENT HISTORY: Aunt with breast cancer. TECHNIQUE: Digital bilateral breast ragini (3D mammographic acquisition) in the CC and MLO projections. 2-D mediolateral oblique (MLO) and craniocaudad (CC) views of both breasts were obtained. CAD: Full Field Digital Mammography with Computer Added Detection was performed. COMPARISON: Comparison is made with prior study dated 10/31/2018 and 09/21/2017. FINDINGS: Breast Composition: The breasts are heterogeneously dense, which may obscure small masses. There are no dominant masses or suspicious calcifications. Stable 8 mm well-defined nodule in the deep slightly medial aspect of the right breast. Prior ultrasound demonstrated this to be a small cyst No other significant abnormalities are identified. There has been no significant change since the prior study. BI/SCRN MAMM (CAD)W/RAGINI BILAT IMPRESSION: Stable bilateral screening mammogram. Yearly follow-up mammogram recommended. (A) ASSESSMENT CATEGORY: BIRADS Category 2: Benign. A letter regarding these results will be sent to the patient by the facility within 30 days. Approximately 10% of breast cancers are not detected by mammography. A normal mammogram should not delay biopsy of a clinically suspicious abnormality. [id number] Electronically Signed: Jw Stuart MD at 8:13 EDT ,
== END 2022-01-23 23:59 | disposition home or self-care (01) ==
LOC: OPBI 15:30
PROVIDERS: PCP Family Medicine; Referring Provider Family Medicine; Visit Provider Family Medicine
DX: Z12.31 Encounter for screening mammogram for malignant neoplasm of breast (principal)
CPT/HCPCS: 77063; 77067

== ENCOUNTER → 2023-01-18 | Outpatient (CLI) | payer OTHER, SELFPAY ==
--- NOTE | 2023-01-18 12:52 | ECHOD_ITS ---
Reason For Study: Arrhythmia Procedure This was a 2D Doppler, Color Flow transthoracic echocardiogram. Exam performed in department. Left Ventricle Normal LV size. Mild concentric left ventricular hypertrophy. Left ventricular systolic function is normal. The estimated ejection fraction is 60 %. Stage 1 diastolic dysfunction. No regional wall motion abnormalities noted. Right Ventricle Normal RV size. Normal systolic function. Atria Normal left atrium. Normal right atrium. Mitral Valve Normal mitral valve. Tricuspid Valve Normal tricuspid valve. Aortic Valve Normal aortic valve. Trisinus/trileaflet aortic valve. Pulmonic Valve Normal pulmonic valve. Great Vessels Normal aortic root. The pulmonary artery is normal size. Normal inferior vena cava. Pericardium/Pleural No pericardial effusion. MMode/2D Measurements & Calculations LVIDd: 3.7 cm IVSd: 1.2 cm Ao root diam: 3.4 cm LVIDs: 2.2 cm LVPWd: 1.2 cm RVDd: 3.0 cm FS: 40.5 % LAV(MOD-bp): 22.9 ml LVAd ap4: 22.7 cm2 LVAd ap2: 22.0 cm2 LAV(MOD-bp) Indexed: 12.1 ml/m2 LVLd ap4: 7.1 cm LVLd ap2: 7.0 cm LAV(MOD-sp2): 29.3 ml EDV(MOD-sp4): 57.9 ml EDV(MOD-sp2): 57.9 ml LAV(MOD-sp4): 14.3 ml EDV(sp4-el): 61.6 ml EDV(sp2-el): 58.5 ml LVAs ap4: 13.7 cm2 LVAs ap2: 12.5 cm2 LVLs ap4: 6.4 cm LVLs ap2: 6.2 cm ESV(MOD-sp4): 26.2 ml ESV(MOD-sp2): 21.8 ml ESV(sp4-el): 24.9 ml ESV(sp2-el): 21.6 ml EF(MOD-sp4): 54.8 % EF(MOD-sp2): 62.3 % EF(sp4-el): 59.6 % SV(MOD-sp4): 31.7 ml SV(MOD-sp2): 36.1 ml SV(sp4-el): 36.7 ml LA dimension(2D): 3.7 cm LA A4 area: 7.6 cm2 RA A4 area: 6.3 cm2 Time Measurements MV dec time: 0.21 sec Doppler Measurements & Calculations MV E max jorge: 63.8 cm/sec Lat Peak E' Jorge: 6.2 cm/sec Med Peak E' Jorge: 3.9 cm/sec MV A max jorge: 85.9 cm/sec E/E' lat: 10.4 E/E' med: 16.3 MV E/A: 0.74 MV dec slope: 302.8 cm/sec2 Ao V2 max: 130.6 cm/sec LV V1 max: 92.0 cm/sec Ao max P.8 mmHg LV V1 max P.4 mmHg Ao V2 mean: 90.1 cm/sec LV V1 mean P.6 mmHg Ao mean P.6 mmHg LV V1 mean: 58.9 cm/sec Ao V2 VTI: 25.0 cm LV V1 VTI: 18.6 cm AV (velocity ratio): 0.74 PA V2 max: 107.0 cm/sec ECHO/Echo Complete Interpretation Summary Normal left atrium. Normal LV size. Mild concentric left ventricular hypertrophy. Left ventricular systolic function is normal. The estimated ejection fraction is 60 %. Stage 1 diastolic dysfunction. Compared to previous study, the left ventricular systolic function has improved .. Ordering Physician: Ghulam Rosa Referring Physician: Juvencio Davila Performed By: Sheila Chen RDCS
== END | disposition home or self-care (01) ==
LOC: CVS 12:50
PROVIDERS: PCP Family Medicine; Visit Provider Internal Medicine Cardiovascular Disease
DX: I47.1 Supraventricular tachycardia (principal)
CPT/HCPCS: 93306

== ENCOUNTER → 2023-03-08 | Outpatient (CLI) | payer OTHER, SELFPAY ==
--- NOTE | 2023-03-08 14:15 | US_ITS ---
INDICATION: UTI, MID BACK PAIN LEFT SIDE EXAMINATION: Ultrasound US Kidney(s) complete (eg, kidneys and bladder) TECHNIQUE: Munoz scale and color doppler images were obtained of the kidneys. COMPARISON: CT dated February 23, 2019 FINDINGS: RIGHT KIDNEY: The right kidney measures 11.3 cm in length. There is no hydronephrosis. There is a 1.1 x 1.1 cm simple appearing right renal cyst. No shadowing calculus or perinephric collection is demonstrated. LEFT KIDNEY: The left kidney measures 11.3 cm in length. There is no hydronephrosis. No shadowing calculus, focal lesion or perinephric collection is demonstrated. URINARY BLADDER: No acute abnormality. US/Kidney and Bladder IMPRESSION: No hydronephrosis. 1.1 x 1.1 cm right renal cyst. Electronically Signed: Esha Diop MD at 16:04 EDT ,
== END | disposition home or self-care (01) ==
LOC: US 14:13
PROVIDERS: PCP Family Medicine; Referring Provider Nurse Practitioner Family; Visit Provider Nurse Practitioner Family
DX: N39.0 Urinary tract infection, site not specified (principal); M54.9 Dorsalgia, unspecified
CPT/HCPCS: 76770

== ENCOUNTER → 2023-05-15 | Outpatient (CLI) | payer OTHER, SELFPAY ==
[2023-05-15 14:25] LABS: AST(SGOT) 21 U/L (15-37); Alanine Aminotransfer ALT/SGPT 35 U/L (13-56); Albumin, Serum 3.5 g/dL (3.2-5.0); Alkaline Phosphatase 68 U/L (45-117); Anion Gap 6 (5-15); BUN 13 mg/dL (7-18); BUN/Creat Ratio 15.2 RATIO (10-20); Calcium,Total 9.3 mg/dL (8.5-10.1); Chloride 108 mmol/L (98-107); Creatinine, Serum 0.86 mg/dL (0.55-1.02); EST Glomerular Filtration Rate 71 mL/min (>60); Est Glom Filt Rate - Afr Amer 86 mL/min (>60); Globulin 3.6 g/dL (2.2-4.2); Glucose 112 mg/dL (74-106); Potassium 3.8 mmol/L (3.5-5.1); Protein, Total 7.1 g/dL (6.4-8.2); Sodium Level 139 mmol/L (136-145)
== END | disposition home or self-care (01) ==
LOC: LAB 13:00
PROVIDERS: PCP Family Medicine; Visit Provider Urology
DX: N30.80 Other cystitis without hematuria (principal)
CPT/HCPCS: 36415; 80053; 87086; 87088

== ENCOUNTER 2023-06-11 08:59 | Emergency (ER) | payer OTHER, SELFPAY ==
[2023-06-11 09:03] VITALS: BP 101/67; PULSE 108; RESP 14; TEMP 36.1; O2SAT 98; BMI 30.4
--- NOTE | 2023-06-11 09:08 | ED.RN ---
SPOKE W/ DR WOODSON REGARDING PATIENT SYMPTOMS BEGINNING AROUND 0700 TODAY, REQUESTED TO ROOM PATIENT BASED OFF HISTORY OF EVENTS
--- NOTE | 2023-06-11 09:20 | CT_ITS ---
INDICATION: Dizziness EXAMINATION: CT BRAIN - CT Head or Brain W/O Contrast Injection TECHNIQUE: Multiple axial images were obtained of the head without intravenous contrast. A radiation dose optimization technique was used for this scan. IV Contrast dosage and agent: None. RADIATION DOSAGE (If Supplied By Facility): CTDIvol = ( 44.99 ) mGy, DLP = ( 796.11 ) mGycm COMPARISON: No prior examinations are available for comparison. FINDINGS: BRAIN PARENCHYMA: No intra- or extra-axial hemorrhage. No evidence of acute infarct. No intracranial mass or mass effect. There is preservation of the mcguire/white matter interface. Posterior fossa structures are unremarkable. Mild atherosclerotic calcifications of the cavernous internal carotid arteries. CSF SPACES: Appropriate for age. No hydrocephalus. Basal cisterns are patent. CALVARIUM, SKULL BASE, PARANASAL SINUSES AND MASTOID AIR CELLS: Clear. No discrete lytic or blastic abnormalities. ORBITS: Both globes, extraocular muscles, optic nerves and retrobulbar fat appear unremarkable. ASPECTS Score for Acute Strokes: 10 CT/Brain/Head without Contrast IMPRESSION: No acute intracranial process. Electronically Signed: Ulises Whiting MD at 10:02 EDT ,
--- NOTE | 2023-06-11 09:20 | RAD_ITS ---
INDICATION: CAD EXAMINATION/TECHNIQUE: X-RAY - XR Chest 1 View COMPARISON: Prior exam of 03/20/2019. FINDINGS: LINES/DEVICES: None. LUNGS: No consolidation, edema or effusion. No pneumothorax. MEDIASTINUM AND CARDIOVASCULAR STRUCTURES: Cardiac silhouette not enlarged. Central airways and mediastinal contour are unremarkable. BONES AND SOFT TISSUES: Unremarkable. RAD/Chest 1 View (Portable) IMPRESSION: No radiographic evidence of acute cardiopulmonary disease. Electronically Signed: Ulises Whiting MD at 10:04 EDT ,
--- NOTE | 2023-06-11 09:22 | EDS_ITS ---
HPI History of Present Illness Chief Complaint: Dizziness Narrative Narrative: 67-year-old female past medical history of hypertension, congestive heart failure, presents with her granddaughter because of lightheadedness and dizziness that began this morning around 6 AM to 7 AM, at least 2-1/2 hours ago after taking Risperdal. They relate history that she had been taking 6 mg of Risperdal for at least 10 years for depression and anxiety. They state that her primary care provider took her off of this medication cold turkey 2 weeks ago, but then restarted it because of signs of withdrawal. They state over the last 2 weeks, she began having sudden movements of her mouth and tongue. While the patient states that her tongue feels swollen she denies any throat swelling or difficulty breathing or swallowing stating that her tongue feels enlarged more from the constant movement. This has been ongoing for at least 2 weeks according to her granddaughter. She denies any headache, no paresthesias, but states after she took her dose of Risperdal this morning she became lightheaded and near syncopal. She fell onto her but did not strike her head or pass out. She denies any prodromal chest pain or shortness of breath. They are more concerned about her weakness and lightheadedness. She denies any dysuria or hematuria, no cough or shortness of breath, no other symptoms except dry mouth. [facility] Medical History (Updated 06/11/23 @ 11:02 by Farhan Love MD) Atrial tachycardia Cardiomyopathy Congestive heart failure Depression Essential hypertension History of uterine ablation Infection due to ESBL-producing Escherichia coli Lower back pain TERESA (obstructive sleep apnea) Home Medications folic acid 1 mg tablet 1 mg PO DAILY SUPPLEMENT 02/23/19 [History Last Taken 02/23/19] multivitamin with folic acid 400 mcg tablet 1 tab PO DAILY supplement 02/23/19 [History Last Taken 02/23/19] simvastatin 40 mg tablet 40 mg PO QHS CHOLESTEROL 02/23/19 [History Last Taken 02/22/19] venlafaxine 150 mg tablet,extended release 24 hr 150 mg PO DAILY DEPRESSION 02/23/19 [History Last Taken 04/02/19] venlafaxine 75 mg tablet,extended release 24 hr 75 mg PO DAILY DEPRESSION 02/23/19 [History Last Taken 04/02/19] acetaminophen 325 mg tablet 650 mg (2 x 325 mg) PO Q6H PRN PRN pain/fever 03/02/19 [Rx Last Taken Unknown] melatonin 12 mg tablet mg PO 12/04/21 [History Last Taken Unknown] risperidone 4 mg tablet 6 mg PO DAILY 12/04/21 [History Last Taken Unknown] lisinopril 2.5 mg tablet 2.5 mg PO DAILY #90 tabs 08/13/22 [Rx Last Taken Unknown] aspirin 81 mg tablet,delayed release 81 mg PO DAILY 01/03/23 [History Last Taken Unknown] metoprolol succinate 25 mg tablet,extended release 24 hr See Rx Instructions .Route .COMPLEX #90 tabs 03/31/23 [Rx Last Taken Unknown] cephalexin 500 mg capsule 500 mg PO Q12 #14 CAPSULES 06/11/23 [Rx Last Taken Unknown] Allergy/AdvReac Type Severity Reaction Status Date / Time cariprazine [From [facility]] Allergy Mild DIZZINESS Verified 06/11/23 09:05 Family History Mother Heart disease Father Heart disease Brother Heart disease Surgical History History of carpal tunnel surgery History of tonsillectomy Social History Smoking Status: Never smoker alcohol intake: never substance use type: does not use caffeine: Yes (occasionally) ROS ROS ED ROS Narrative Constitutional: No fever, no chills. HEENT: No sore throat. No neck pain. No loss of vision. No rhinorrhea. Cardiovascular: No chest pain. No palpitations. No pedal edema. Respiratory: No cough, no shortness of breath. Abdominal: No abdominal pain. No nausea. No vomiting. Genitourinary: No dysuria. No hematuria. Musculoskeletal: No myalgias. No arthralgias. Neurologic: No headaches. Positive lightheadedness/dizziness starting this morning. Continued mouth and tongue movements for the last 2 weeks. Skin: No rash. No change in color. Psychiatric: No depression. No anxiety. EXAM Physical Exam Narrative Exam Narrative: Afebrile. Vital signs noted. HEENT: Normocephalic. Atraumatic. PERRL, EOMI. Neck soft and supple. No point tenderness or step off. Airway patent. Cardiovascular: Regular rate and rhythm. No murmurs, rubs, or gallops appreciated. Respiratory: No tachypnea. Lungs clear to auscultation bilaterally. Gastrointestinal: Abdomen soft, nontender, with normoactive bowel sounds. No rebound or guarding. Neurological: Awake. Alert. Nonfocal, nonlateralizing. Positive mouth and tongue movements consistent with tardive dyskinesia. NIH stroke scale is 0. DTRs equal and symmetric. Skin: No rash. Normal color. No pallor. Musculoskeletal: No pedal edema. Full range of motion extremities. Const Vital Signs: 06/11/23 09:03 Temperature 97 F L Temperature Source Temporal Pulse Rate 108 H Respiratory Rate 14 Blood Pressure 101/67 Blood Pressure Mean 78 Pulse Ox 98 Oxygen Delivery Method Room Air MDM MDM MDM Narrative Medical decision making narrative: I reviewed the patient's prior records. The differential diagnosis would be stroke/TIA versus medication side effect mainly. Patient is not showing any signs of stroke and her tar dive dyskinesia like symptoms have been ongoing for the last 2 weeks. While her dizziness and lightheadedness started today, she is showing no other signs of emergent stroke. I do not feel that stroke team needs to be called, but I will obtain CT imaging of her brain. Feel she needs more of a work-up for her generalized weakness and lightheadedness. EKG was obtained and interpreted by myself independently as normal sinus rhythm at 89 bpm without ectopy or acute ST changes. No STEMI. I reviewed her laboratory work and she has normal white count 9.6, hemoglobin normal at 14.4, hematocrit 43.8. Platelet count normal at 284. Her electrolyte panel is grossly unremarkable without evidence of dehydration with a normal sodium of 139, potassium 3.7, chloride normal at 105, BUN is slightly elevated at 21 and she has normal creatinine of 0.77. Her glucose is 112 and her AST and ALT are normal at 24 and 52 respectively. Urinalysis was obtained that she does have 25-50 WBCs. She will be started on Keflex, urine culture sent, and prescription written for the next 7 days to take twice a day. I reviewed CT imaging of her brain and interpreted as no acute process, I reviewed the radiology report which confirms my independent interpretation. Additionally chest x-ray in 1 view was obtained and interpreted by myself as no evidence of pneumonia or pneumothorax. Once again I reviewed the radiology report which confirms my independent interpretation. At this point in time, I do feel that her tar dive dyskinesia is unrelated to her lightheadedness. It may be just simple lightheadedness and medication side effect as she restarted her Risperdal. She did receive the 500 mL bolus to help with her lightheadedness. I do not feel that she requires observation or admission at this time. She states she feels the same as she had for the last 2 weeks. I suggested follow-up with neurology regarding her abnormal mouth and tongue movements/tar dive dyskinesia. Additionally, they requested referral to a psychiatrist, and they were given the number to Dr. Malone for follow-up. Return instructions to the emergency department were reviewed. Disposition is discharged home in stable condition. History & Record Review Discussion w/independent historian: Patient and Family Additional record(s) reviewed:: Prior ED visit Lab Data Attestation: I reviewed the patient's lab results. Labs: Laboratory Results - last 24 hr 06/11/23 06/11/23 09:20 10:35 WBC 9.6 RBC 4.70 Hgb 14.4 Hct 43.8 MCV 93.2 MCH 30.6 MCHC 32.9 RDW Std Deviation 44.7 H RDW Coeff of Darlyn 13.1 Plt Count 284 MPV 11.1 Immature Gran % (Auto) 0.500 Neut % (Auto) 61.3 Lymph % (Auto) 30.0 [place] % (Auto) 7.2 Eos % (Auto) 0.5 Baso % (Auto) 0.5 Absolute Neuts (auto) 5.9 Absolute Lymphs (auto) 2.89 Nucleated RBC % 0 Sodium 139 Potassium 3.7 Chloride 105 Carbon Dioxide 25.0 Anion Gap 9 BUN 21 H Creatinine 0.77 Estim Creat Clear Calc 57.61 Est GFR (MDRD) Af Amer 97 Est GFR (MDRD) Non-Af 80 BUN/Creatinine Ratio 27.3 H Glucose 112 H Calcium 9.2 Total Bilirubin 0.40 AST 24 ALT 52 Alkaline Phosphatase 75 Total Protein 7.1 Albumin 3.7 Globulin 3.4 Albumin/Globulin Ratio 1.1 Urine Color Yellow Urine Clarity Sl. Cloudy Urine pH 6.0 Ur Specific [place] 1.010 Urine Protein Negative Urine Glucose (UA) Normal Urine Ketones Negative Urine Occult Blood 50 H Urine Nitrite Negative Urine Bilirubin Negative Urine Urobilinogen Normal Ur Leukocyte Esterase 500 H Urine RBC 0 SEEN Urine WBC 25-50 SEEN Ur Squamous Epith Cells 0 SEEN Urine Bacteria 2+ Urine Mucus 0 SEEN Radiography Diagnostic Testing: Clinical Impression(s) from Imaging Studies Brain CT 06/11/23 09:20 IMPRESSION: No acute intracranial process. Electronically Signed: Ulises Whiting MD at 10:02 EDT , Chest X-Ray 06/11/23 09:20 IMPRESSION: No radiographic evidence of acute cardiopulmonary disease. Electronically Signed: Ulises Whiting MD at 10:04 EDT , Discharge Plan Triage Chief Complaint: Dizziness ED Provider: Farhan Love Dx/Rx/DC Orders Clinical Impression: UTI (urinary tract infection), Tardive dyskinesia, Lightheaded Instructions: Dystonia, ED Near-Fainting, Uncertain Cause, ED Cystitis Female Adult Prescriptions: New cephalexin 500 mg capsule 500 mg PO Q12 Qty: 14 0RF No Action melatonin 12 mg tablet PO risperidone 4 mg tablet 6 mg PO DAILY Patient Comments: TAKE 1.5 TABLETS BY MOUTH EVERY DAY aspirin 81 mg tablet,delayed release (DR/EC) 81 mg PO DAILY simvastatin 40 MG tablet 40 mg PO QHS Patient Comments: TAKE 1 TABLET BY MOUTH EVERY DAY AT NIGHT folic acid 1 MG tablet 1 mg PO DAILY Patient Comments: TAKE 1 TABLET BY MOUTH EVERY DAY venlafaxine 75 MG tablet extended release 24hr 75 mg PO DAILY venlafaxine 150 MG tablet extended release 24hr 150 mg PO DAILY multivitamin with folic acid 1 TABLET tablet 1 tab PO DAILY acetaminophen 325 MG tablet 650 mg PO Q6H PRN PRN (Reason: pain/fever) 0RF lisinopril 2.5 mg tablet 2.5 mg PO DAILY Qty: 90 3RF metoprolol succinate 25 mg tablet extended release 24 hr See Rx Instructions .ROUTE .COMPLEX Qty: 90 3RF Dose Instruction: TAKE 1 TABLET BY MOUTH EVERY DAY Rx Instructions: TAKE 1 TABLET BY MOUTH EVERY DAY Primary Care Provider: Juvencio Davila Referrals: Juvencio Davila MD [Primary Care Provider] - 3-5 Days Andrew Argueta DO [Med Staff - Digital Traffic Coordinator] - As soon as possible Disposition Disposition: Home, Self Care
[2023-06-11 09:29] LABS: Absolute Lymphocyte Count 2.89 X10^3/uL (0.83-4.51); Absolute Neutrophil Count 5.9 X10^3/uL (2.0-7.7); Basophil# 0.05 X10^3/uL; Basophil% 0.5 % (0-1); Eosinophil# 0.05 X10^3/uL; Eosinophils% 0.5 % (0-5); Hematocrit 43.8 % (37-47); Hemoglobin 14.4 g/dL (12.0-15.0); Lymphocyte # 2.89 X10^3/ul (0.83-4.51); Mean Corp Hgb Conc 32.9 g/dL (32-36); Mean Corpuscular Hgb 30.6 pg (27.0-32.0); Mean Corpuscular Volume 93.2 fL (81-99); Mean Platelet Vol. 11.1 fl (6.2-12.0); Monocyte# 0.69 X10^3/uL; Monocyte% 7.2 % (0-10); NRBC Flagged by Analyzer 0 % (0-5); Neutrophil # 5.91 X10^3/uL (2.7-7.7); Neutrophil % 61.3 % (47-70); Platelet Count 284 K/mm3 (150-450); RBC Distribution Width CV 13.1 % (11.6-14.6); RBC Distribution Width SD 44.7 fl (35.1-43.9); White Blood Count 9.6 K/mm3 (4.4-11.0)
[2023-06-11 09:44] LABS: ALB/GLOB Ratio 1.1 RATIO (0.9-2.4); AST(SGOT) 24 U/L (15-37); Alanine Aminotransfer ALT/SGPT 52 U/L (13-56); Albumin, Serum 3.7 g/dL (3.2-5.0); Alkaline Phosphatase 75 U/L (45-117); Anion Gap 9 (5-15); BUN 21 mg/dL (7-18); BUN/Creat Ratio 27.3 RATIO (10-20); Calcium,Total 9.2 mg/dL (8.5-10.1); Chloride 105 mmol/L (98-107); Creatinine, Serum 0.77 mg/dL (0.55-1.02); EST Glomerular Filtration Rate 80 mL/min (>60); Est Glom Filt Rate - Afr Amer 97 mL/min (>60); Estimated Creatinine Clearance 57.61 ml/min; Globulin 3.4 g/dL (2.2-4.2); Glucose 112 mg/dL (74-106); Potassium 3.7 mmol/L (3.5-5.1); Protein, Total 7.1 g/dL (6.4-8.2); Sodium Level 139 mmol/L (136-145)
--- NOTE | 2023-06-11 10:21 | CM.ED ---
Social Work SW performed chart review, LW and HCPOA documents on file as of 2018. Patient's identified HCPOA is her daughter Leanna and alternates are her granddaughter Ella and Sanya. No special instructions indicated on either document. Vidya BOSTON, MARILYN
[2023-06-11 10:49] LABS: Color, Urine Yellow (Yellow); Glucose, Dipstick Normal (Normal); Ketone-Dipstick Negative (Negative); Leukocyte Esterase-Dipstick 500 /ul (Negative); Mucous, Urine 0 SEEN /hpf (<or=2+); Nitrite-Dipstick Negative (Negative); Occult Blood-Urine 50 /ul (Negative); Protein-Dipstick Negative (Negative); Red Blood Cells-Urine 0 SEEN /hpf (0-5); Squamous Epithelial Cells - UA 0 SEEN /hpf (5-10); Urine Bilirubin Dipstick Negative (Negative); Urine Clarity Sl. Cloudy (Clear); Urine Urobilinogen Normal (Normal)
[2023-06-11 10:55] LABS: Bacteria 2+ /hpf (None Seen); White Blood Cells 25-50 SEEN /hpf (0-5)
[2023-06-11 11:00] VITALS: BP 103/76; PULSE 74; RESP 16; TEMP 36.2; O2SAT 97
[2023-06-11 11:57] VITALS: BP 119/71; PULSE 93; RESP 18; O2SAT 98
[2023-06-11 12:00] VITALS: BP 105/74; PULSE 72; RESP 18; TEMP 36.3; O2SAT 98
[2023-06-11] MEDS: Cephalexin 250 MG Capsule 500 MG PO (12:22)
--- NOTE | 2023-06-20 13:10 | ED.RN ---
THIS RN RC'D CALL FROM PATIENT STATING THAT WE CALLED AND SAID WE CALLED IN A NEW PRESCRIPTION TO [facility] BUT THE PHARMACY STATES THEY DID NOT GET IT. THIS RN COULD NOT FINDS ANY NOTES ON WHAT ACTUAL MEDICATION WAS CALLED IN SO DR. ODOM CONSULTED CHART AGAIN. SHE ELECTRONICALLY SENT NEW SCRIPT TO [facility]. VM LEFT ON PATIENTS PHONE WITH THE RX INFORMATION
== END 2023-06-11 12:28 | disposition home or self-care (01) ==
PROVIDERS: Emergency Provider Emergency Medicine; PCP Family Medicine; Visit Provider Emergency Medicine
DX: N39.0 Urinary tract infection, site not specified (principal); I11.0 Hypertensive heart disease with heart failure; I50.9 Heart failure, unspecified; G24.01 Drug induced subacute dyskinesia; T43.595A Adverse effect of other antipsychotics and neuroleptics, initial encounter; Z79.82 Long term (current) use of aspirin; Z79.899 Other long term (current) drug therapy
CPT/HCPCS: 70450; 71045; 80053; 81001; 85025; 87086; 87088; 87186; 93005; 96360; 96361; 99283; J7030; A4216

== ENCOUNTER 2023-06-24 18:47 | Emergency (ER) | payer OTHER, SELFPAY ==
[2023-06-24 18:50] VITALS: BP 115/79; PULSE 121; RESP 22; TEMP 36.4; O2SAT 99; BMI 29.2
[2023-06-24] MEDS: 0.9% Normal Saline 1,000 ML 999 ML IV (19:17)
[2023-06-24 19:24] VITALS: BP 109/85; PULSE 105; RESP 14; O2SAT 99
[2023-06-24 19:29] LABS: Absolute Lymphocyte Count 2.28 X10^3/uL (0.83-4.51); Absolute Neutrophil Count 9.8 X10^3/uL (2.0-7.7); Basophil# 0.05 X10^3/uL; Basophil% 0.4 % (0-1); Eosinophil# 0.01 X10^3/uL; Eosinophils% 0.1 % (0-5); Hematocrit 44.6 % (37-47); Hemoglobin 14.6 g/dL (12.0-15.0); Lymphocyte # 2.28 X10^3/ul (0.83-4.51); Lymphocyte % 16.6 % (19-41); Mean Corp Hgb Conc 32.7 g/dL (32-36); Mean Corpuscular Hgb 30.3 pg (27.0-32.0); Mean Corpuscular Volume 92.5 fL (81-99); Monocyte# 1.47 X10^3/uL; Monocyte% 10.7 % (0-10); NRBC Flagged by Analyzer 0 % (0-5); Neutrophil % 71.2 % (47-70); Platelet Count 335 K/mm3 (150-450); RBC Distribution Width CV 13.3 % (11.6-14.6); RBC Distribution Width SD 45.5 fl (35.1-43.9); Red Blood Count 4.82 M/mm3 (4.2-5.4); White Blood Count 13.8 K/mm3 (4.4-11.0)
--- NOTE | 2023-06-24 19:30 | EDS_ITS ---
<Statement entered by Fang Roberson MD - 06/24/23 22:02> I have personally performed a face to face assessment of the patient and have reviewed the KATY Note. Patient presents secondary to tardive dyskinesia movements with difficulty eating and drinking. Patient apparently had medication changes made over the summer. She developed tardive dyskinesia. Her doctor has been adjusting her medications and has started her on benztropine. In spite of this she continues to have abnormal mouth movements and states she is a hard time eating and drinking. Patient sitting upright in bed no acute distress. She does have dry lips noted. Heart is regular rate and rhythm. Lung sounds are clear. Abdomen is soft with no focal tenderness. Patient given IV fluids. Labwork obtained and reveals only mild bump in creatinine when compared to prior labs. Urinalysis does reveal 150 ketones. At this time patient has been given IV fluids for hydration. We will give her BMX mouthwash to help with mouth sores that she has developed from the continuous movement motions. She is to contact her doctor tomorrow for follow- up. She states that she is able to increase her dose of benztropine in a few days and will stay in touch with her physician regarding her symptoms. HPI History of Present Illness Chief Complaint: General Illness Narrative Narrative: Patient presenting today for evaluation due to tardive dyskinesia and concerns for UTI. She reports that she was on risperidone for 7 years when she was discontinued suddenly and started on Vraylar. Once starting Vraylar, she developed uncontrollable movements of her mouth and tongue. Her PCP then discontinued the Vraylar, put her back on the risperidone which seemed to improve the symptoms but then discontinued the risperidone again and started her on an unknown medication that was meant to help with the tardive dyskinesia. Patient reports that the movements have worsened. It is making it harder for her to eat or drink and she feels dehydrated. She also reports that she has a history of UTIs and is concerned that she could have a UTI because she recently had one and her urine is dark. She denies any fever, chills, abdominal pain, nausea, and vomiting. [facility] Medical History (Updated 06/24/23 @ 20:42 by ROEL Menon) Atrial tachycardia Cardiomyopathy Congestive heart failure Depression Essential hypertension History of uterine ablation Infection due to ESBL-producing Escherichia coli Lower back pain TERESA (obstructive sleep apnea) Home Medications folic acid 1 mg tablet 1 mg PO DAILY SUPPLEMENT 02/23/19 [History Last Taken 06/11/23] multivitamin with folic acid 400 mcg tablet 1 tab PO DAILY supplement 02/23/19 [History Last Taken 06/11/23] simvastatin 40 mg tablet 40 mg PO QHS CHOLESTEROL 02/23/19 [History Last Taken 06/10/23] venlafaxine 150 mg tablet,extended release 24 hr 300 mg PO DAILY DEPRESSION 02/23/19 [History Last Taken 06/11/23] venlafaxine 75 mg tablet,extended release 24 hr 75 mg PO DAILY DEPRESSION 02/23/19 [History Last Taken 04/02/19] acetaminophen 325 mg tablet 650 mg (2 x 325 mg) PO Q6H PRN PRN pain/fever 03/02/19 [Rx Last Taken 06/11/23] melatonin 12 mg tablet 12 mg PO QHS 12/04/21 [History Last Taken 06/10/23] risperidone 4 mg tablet 6 mg PO DAILY 12/04/21 [History Last Taken 06/11/23] lisinopril 2.5 mg tablet 2.5 mg PO DAILY #90 tabs 08/13/22 [Rx Last Taken 06/11/23] aspirin 81 mg tablet,delayed release 81 mg PO DAILY 01/03/23 [History Last Taken 06/11/23] metoprolol succinate 25 mg tablet,extended release 24 hr See Rx Instructions .Route .COMPLEX #90 tabs 03/31/23 [Rx Last Taken 06/11/23] ascorbic acid (vitamin C) 1,000 mg tablet (Vitamin C) 1 g PO QHS 06/11/23 [History Last Taken 06/11/23] cephalexin 500 mg capsule 500 mg PO Q12 #14 CAPSULES 06/11/23 [Rx Last Taken Unknown] methenamine hippurate 1 gram tablet 1 g PO QHS 06/11/23 [History Last Taken 06/10/23] sulfamethoxazole 800 mg-trimethoprim 160 mg tablet (Bactrim DS) 1 tab PO BID #6 tabs 06/20/23 [Rx Last Taken Unknown] MAGIC MOUTH WASH (BMX) 180 mL suspension 5 ml buccal Q6H PRN mouth pain #180 mL 06/24/23 [Rx Last Taken Unknown] benztropine 1 mg tablet 2 mg PO BID 06/24/23 [History Last Taken Unknown] Allergy/AdvReac Type Severity Reaction Status Date / Time cariprazine [From Vraylar] Allergy Mild DIZZINESS Verified 06/24/23 18:50 Family History Mother Heart disease Father Heart disease Brother Heart disease Surgical History History of carpal tunnel surgery History of tonsillectomy Social History Smoking Status: Never smoker alcohol intake: never substance use type: does not use caffeine: Yes (occasionally) ROS ROS ED Constitutional Constitutional ED: Denies chills or fever(s) Cardiovascular Cardiovascular: Denies chest pain Respiratory/Chest Respiratory/Chest: Denies cough or dyspnea Gastrointestinal Gastrointestinal: Denies abdominal pain, nausea or vomiting Musculoskeletal Musculoskeletal: Denies arthralgias or myalgias Integumentary Denies rash Neurologic Neurologic: Denies weakness Psychiatric Psychiatric: Reports anxiety and depression EXAM Physical Exam Const Vital Signs: 06/24/23 18:50 06/24/23 19:24 Temperature 97.6 F L Temperature Source Temporal Pulse Rate 121 H 105 H Respiratory Rate 22 H 14 Blood Pressure 115/79 109/85 H Blood Pressure Mean 91 93 Pulse Ox 99 99 Oxygen Delivery Method Room Air Room Air Positive well nourished, well developed and no apparent distress General Appearance ED: well developed HEENT Reports normocephalic, head/scalp atraumatic and dry mucous membranes Mouth ED: Yes dry mucous membranes Mouth: dry mucous membranes Eyes PERRL and EOMs intact bilaterally Neck full ROM and supple Chest Wall inspection of chest normal Resp normal respiratory effort and clear to auscultation bilaterally Cardio regular rate and regular rhythm GI soft to palpation, non-tender, non-distended and no masses Back/Spine normal ROM and normal to inspection Extremity normal to inspection and full ROM Neuro oriented x3, CN's II-XII intact bilaterally, moves all extremities and no sensory deficits noted Neuro Narrative: Abnormal involuntary movements of the mouth and tongue consistent with tardive dyskinesia. Sensorium / Orientation: awake and alert Psych mental status grossly normal and thought process normal Skin no rashes or lesions noted and no wounds MDM MDM MDM Narrative Medical decision making narrative: Patient presenting today for evaluation due to tardive dyskinesia that started after starting Vraylar about 2 months ago. She is no longer taking this medication, she has been on and off of the risperidone about 3 times in the past 2 months after taking it consistently for 7 years. She is currently taking benztropine to help with the abnormal movements and has had little relief with that medication. She feels dehydrated and is having a difficult time eating and drinking. She also reports mucosal irritation in her oral cavity. She is tachycardic in triage. Labs will be obtained to rule out leukocytosis, anemia, electrolyte abnormality, and MIHAI. She will be given IV fluids. UA will be obtained to rule out UTI. Patient stable does have slightly elevated BUN and creatinine with urine ketones, consistent with dehydration. She is currently being treated for a UTI with Bactrim and still has a dose left. She will be given Magic mouthwash for her oral irritation. I have given her a psychiatrist to follow-up with and encouraged her to stay well-hydrated. She will be discharged home in stable condition and is comfortable with plan. She has been given return instructions. Lab Data Attestation: I reviewed the patient's lab results. Lab results narrative: WBC 13.8, BUN 19, creatinine 1.3, urine ketones 150 Labs: Laboratory Results - last 24 hr 06/24/23 06/24/23 19:20 19:32 WBC 13.8 H RBC 4.82 Hgb 14.6 Hct 44.6 MCV 92.5 MCH 30.3 MCHC 32.7 RDW Std Deviation 45.5 H RDW Coeff of Darlyn 13.3 Plt Count 335 MPV 11.0 Immature Gran % (Auto) 1.000 H Neut % (Auto) 71.2 H Lymph % (Auto) 16.6 [place] % (Auto) 10.7 H Eos % (Auto) 0.1 Baso % (Auto) 0.4 Absolute Neuts (auto) 9.8 H Absolute Lymphs (auto) 2.28 Nucleated RBC % 0 Sodium 136 Potassium 4.0 Chloride 106 Carbon Dioxide 18.0 L Anion Gap 12 BUN 19 H Creatinine 1.30 H Estim Creat Clear Calc 34.12 Est GFR (MDRD) Af Amer 53 L Est GFR (MDRD) Non-Af 44 L BUN/Creatinine Ratio 14.6 Glucose 116 H Calcium 10.0 Urine Color Yellow Urine Clarity Sl. Cloudy Urine pH 6.0 Ur Specific [place] 1.020 Urine Protein 30 H Urine Glucose (UA) Normal Urine Ketones 150 A* Urine Occult Blood 50 H Urine Nitrite Negative Urine Bilirubin 1 H Urine Urobilinogen 1 H Ur Leukocyte Esterase 500 H Urine RBC 0 SEEN Urine WBC 0-5 SEEN Ur Squamous Epith Cells 0-5 SEEN Calcium Oxalate Crystal 1+ Urine Bacteria 1+ Urine Mucus 0 SEEN Discharge Plan Triage Chief Complaint: General Illness ED Midlevel Provider: Bethany Man ED Provider: Fang Roberson Dx/Rx/DC Orders Clinical Impression: Irritation of oral cavity, Acute dehydration, Dyskinesia, tardive Instructions: ED Dehydration (Adult) Prescriptions: New MAGIC MOUTH WASH (BMX) 180 mL suspension 5 ml buccal Q6H PRN (Reason: mouth pain) Qty: 180 0RF Rx Instructions: diphenhydramine 12.5 mg/5 mL oral liquid 60 mL; aluminum-mag hydroxide- simethicone 400 mg-400 mg-40 mg/5 mL oral susp 60 mL; Lidocaine Viscous 2 % mucosal solution 60 mL; Per 180 mL No Action melatonin 12 mg tablet 12 mg PO QHS risperidone 4 mg tablet 6 mg PO DAILY Hold Instructions: Order Changed Patient Comments: TAKE 1.5 TABLETS BY MOUTH EVERY DAY aspirin 81 mg tablet,delayed release (DR/EC) 81 mg PO DAILY simvastatin 40 MG tablet 40 mg PO QHS Patient Comments: TAKE 1 TABLET BY MOUTH EVERY DAY AT NIGHT folic acid 1 MG tablet 1 mg PO DAILY Patient Comments: TAKE 1 TABLET BY MOUTH EVERY DAY venlafaxine 75 MG tablet extended release 24hr 75 mg PO DAILY venlafaxine 150 MG tablet extended release 24hr 300 mg PO DAILY multivitamin with folic acid 1 TABLET tablet 1 tab PO DAILY acetaminophen 325 MG tablet 650 mg PO Q6H PRN PRN (Reason: pain/fever) 0RF cephalexin 500 mg capsule 500 mg PO Q12 Qty: 14 0RF ascorbic acid (vitamin C) [Vitamin C] 1,000 mg tablet 1 g PO QHS Patient Comments: TAKE 1 TABLET BY MOUTH EVERY DAY methenamine hippurate 1 gram tablet 1 g PO QHS Patient Comments: TAKE 1 TABLET BY MOUTH EVERYDAY AT BEDTIME sulfamethoxazole-trimethoprim [Bactrim DS] 800-160 mg tablet 1 tab PO BID Qty: 6 0RF benztropine 1 mg tablet 2 mg PO BID Patient Comments: PLEASE SEE ATTACHED FOR DETAILED DIRECTIONS lisinopril 2.5 mg tablet 2.5 mg PO DAILY Qty: 90 3RF metoprolol succinate 25 mg tablet extended release 24 hr See Rx Instructions .ROUTE .COMPLEX Qty: 90 3RF Dose Instruction: TAKE 1 TABLET BY MOUTH EVERY DAY Rx Instructions: TAKE 1 TABLET BY MOUTH EVERY DAY Primary Care Provider: Juvencio Davila Referrals: Juvencio Davila MD [Primary Care Provider] - 3-5 Days Andrew Argueta DO [Med Staff - Administrative Services Specialist] - As Needed Activity Restrictions/Additional Instructions: Please follow-up with your PCP and return for any worsening of your symptoms. Disposition Disposition: Home, Self Care
[2023-06-24 19:41] LABS: Mucous, Urine 0 SEEN /hpf (<or=2+); Red Blood Cells-Urine 0 SEEN /hpf (0-5)
[2023-06-24 19:47] LABS: Anion Gap 12 (5-15); BUN 19 mg/dL (7-18); BUN/Creat Ratio 14.6 RATIO (10-20); Chloride 106 mmol/L (98-107); EST Glomerular Filtration Rate 44 mL/min (>60); Est Glom Filt Rate - Afr Amer 53 mL/min (>60); Estimated Creatinine Clearance 34.12 ml/min; Glucose 116 mg/dL (74-106); Sodium Level 136 mmol/L (136-145)
[2023-06-24 19:55] LABS: Color, Urine Yellow (Yellow); Glucose, Dipstick Normal (Normal); Leukocyte Esterase-Dipstick 500 /ul (Negative); Nitrite-Dipstick Negative (Negative); Occult Blood-Urine 50 /ul (Negative); Protein-Dipstick 30 mg/dl (Negative); Urine Clarity Sl. Cloudy (Clear); Urine Urobilinogen 1 mg/dl (Normal)
[2023-06-24 20:04] LABS: Urine Bilirubin Dipstick 1 mg/dL (Negative)
[2023-06-24 20:05] LABS: Ketone-Dipstick 150 mg/dl (Negative)
[2023-06-24 20:07] LABS: Bacteria 1+ /hpf (None Seen); Calcium Oxalate Crystals Ur 1+ /hpf (<or=2+); Squamous Epithelial Cells - UA 0-5 SEEN /hpf (5-10); White Blood Cells 0-5 SEEN /hpf (0-5)
[2023-06-24 20:56] VITALS: PULSE 93; RESP 16; O2SAT 99
== END 2023-06-24 21:03 | disposition home or self-care (01) ==
PROVIDERS: Physician Assistant; Emergency Provider Emergency Medicine; PCP Family Medicine; Visit Provider Emergency Medicine
DX: E86.0 Dehydration (principal); I50.9 Heart failure, unspecified; G24.01 Drug induced subacute dyskinesia; G47.33 Obstructive sleep apnea (adult) (pediatric)
CPT/HCPCS: 80048; 81001; 85025; 96360; 96361; 99283; J7030; A4216

== ENCOUNTER 2025-08-15 14:04 | Emergency (ER) | payer MEDICARE, OTHER, SELFPAY ==
[2025-08-15 14:04] VITALS: BP 133/81; PULSE 88; RESP 16; TEMP 36.9; O2SAT 98; BMI 34.1
--- NOTE | 2025-08-15 14:40 | RAD_ITS ---
PROCEDURE: RAD/Ankle min 3 Views
--- NOTE | 2025-08-15 14:40 | RAD_ITS ---
PROCEDURE: RAD/Foot min 3 Views
--- NOTE | 2025-08-15 14:40 | RAD_ITS ---
PROCEDURE: RAD/Wrist min 3 Views
--- NOTE | 2025-08-15 14:40 | RAD_ITS ---
PROCEDURE: RAD/Elbow min 3 Views
--- NOTE | 2025-08-15 14:47 | ED.VIS.FALL ---
HPI HPI - Fall History of Present Illness Chief Complaint: Fall Informant: patient Narrative Narrative: 70-year-old female presenting to the emergency room with foot and ankle pain. Patient states that Saturday night she was at a local football game and went to these the stadium going down the stairs when she fell. States she has balance issues and was carrying a lot of things. She notes pain in the right elbow and right wrist but has been able to range it. She notes pain in the right ankle and the top of her foot when she bears weight. No reported head injury or loss of consciousness. She denies any neck or back pain. [facility] Medical History MDD (major depressive disorder) Major depressive disorder in full remission History of uterine ablation Atrial tachycardia TERESA (obstructive sleep apnea) Depression Essential hypertension Cardiomyopathy Congestive heart failure Infection due to ESBL-producing Escherichia coli Lower back pain Home Medications ?Medication ?Instructions ?Recorded ?Last Taken ?Type folic acid 1 mg tablet 1 mg PO DAILY SUPPLEMENT 02/23/19 06/11/23 History simvastatin 40 mg tablet 40 mg PO QHS CHOLESTEROL 02/23/19 06/10/23 History aspirin 81 mg tablet,delayed 81 mg PO DAILY 01/03/23 06/11/23 History release metoprolol succinate 25 mg See Rx Instructions .Route 03/31/23 06/11/23 Rx tablet,extended release 24 hr .COMPLEX #90 tabs diphenhydramine HCl 25 mg tablet 25 mg PO QHS PRN 12/04/23 Unknown History (Benadryl Allergy) valbenazine 80 mg capsule mg PO 12/04/23 Unknown History (Ingrezza) lisinopril 2.5 mg tablet 2.5 mg PO DAILY #90 TABLETS 09/04/24 Unknown Rx buspirone 15 mg tablet 15 mg PO BID 90 days #180 tabs 12/08/24 Unknown Rx diclofenac sodium 75 mg mg PO 12/08/24 Unknown History tablet,delayed release fluoxetine 40 mg capsule 40 mg PO DAILY 90 days #90 caps 12/08/24 Unknown Rx amantadine HCl 100 mg tablet 100 mg PO BID 03/09/25 Unknown History clonazepam 0.5 mg tablet 0.25 mg (1/2 x 0.5 mg) PO BID 30 06/01/25 Unknown Rx days #30 tabs fluoxetine 20 mg capsule 20 mg PO QDAY #30 caps 07/02/25 Unknown Rx hydrocodone-acetaminophen 5-325mg 1 tab PO Q6H PRN pain 3 days #12 08/15/25 Unknown Rx 5mg-325mg tabs Allergy/AdvReac Type Severity Reaction Status Date / Time cariprazine (From [facility]) Allergy Mild DIZZINESS Verified 08/15/25 14:05 Family History Mother Heart disease Father Heart disease Brother Heart disease Surgical History History of tonsillectomy History of carpal tunnel surgery Social History Smoking Status: Never smoker alcohol intake: never substance use type: does not use caffeine: Yes (occasionally) ROS ROS ED Constitutional Constitutional ED: Denies chills, fever(s) or weight loss Eyes Eyes: Denies change in vision or diplopia ENT ENT ED: Denies ear pain, rhinorrhea or sore throat Cardiovascular Cardiovascular: Denies chest pain, orthopnea, palpitations or racing heartbeat Respiratory/Chest Respiratory/Chest: Denies cough, dyspnea or orthopnea Gastrointestinal Gastrointestinal: Denies abdominal pain, diarrhea, nausea or vomiting Genitourinary Genitourinary ED: Denies dysuria, hematuria or urinary frequency Musculoskeletal Musculoskeletal: Reports other Details: Right elbow and wrist pain, right foot and ankle pain ; Denies arthralgias, back pain, myalgias or neck pain Integumentary Denies abscess or rash Neurologic Neurologic: Denies headache(s) or weakness Psychiatric Psychiatric: Denies anxiety, depression, suicidal ideation or suicidal thoughts Endocrine Endocrinology: Denies polydipsia, polyphagia or polyuria Allergic/Immunologic Allergic/Immunologic ED: Denies mouth swelling, tongue swelling or urticaria EXAM Physical Exam Const Vital Signs: 08/15/25 14:04 Temperature 98.4 F Temperature Source Oral Pulse Rate 88 Respiratory Rate 16 Blood Pressure 133/81 H Blood Pressure Mean 98 Pulse Ox 98 Oxygen Delivery Method Room Air Positive well nourished and well developed General Appearance ED: well developed and NAD HEENT Reports normocephalic, head/scalp atraumatic and moist mucous membranes Eyes PERRL and EOMs intact bilaterally Neck full ROM, no lymphadenopathy, supple and no JVD Resp normal respiratory effort and clear to auscultation bilaterally Cardio regular rate, regular rhythm and no murmurs GI normal to inspection, nondistended, normoactive bowel sounds and non-tender Palpation: soft Back/Spine no CVA tenderness and normal ROM Extremity Extremity Narrative: Mild tenderness and swelling over the anterior lateral right elbow no deformity no significant swelling. Mild tenderness with range of motion pronation supination of the right wrist with no deformity. Neurovascular intact distal. There is swelling over the right ATF. There is some ecchymosis noted posteriorly and inferior to the lateral malleolus. The actual lateral malleolus is not tender. There is no fifth metatarsal fibular head pain. There is no medial or posterior malleoli or tenderness or swelling. Neurovascular intact distal. General Extremety ED: Negative for edema General Extremity: Negative for edema Neuro oriented x3 and CN's II-XII intact bilaterally Sensorium / Orientation: alert Motor Exam: strength 5/5 throughout Psych mental status grossly normal Mood & Affect: Negative for depressed or tearful Skin no rashes or lesions noted and no wounds MDM MDM MDM Narrative Medical decision making narrative: Differential diagnosis includes humerus radius ulnar fracture, ankle sprain right wrist sprain tendon rupture fifth metatarsal fracture lateral malleolus fracture tibial fracture My independent interpretation of the plain films of the right elbow is an acute fracture of the radial head. My independent interpretation of the plain films of the right wrist is no acute fracture. My independent interpretation of the plain films of the right ankle is soft tissue swelling no acute fracture My independent interpretation of the plain films of the right foot is no acute fracture. Patient will be placed in an Aircast for the right ankle instructions for ice elevation anti-inflammatories. For the radial head fracture patient will be placed in a sling. She sees Dr. Bertram Arriola for orthopedics and can be followed up there. She is asked for some pain medicine at night to help her sleep I can write for a few Berkey. History & Record Review Discussion w/independent historian: Patient Radiography Diagnostic Testing: Clinical Impression(s) from Imaging Studies Ankle X-Ray 08/15/25 14:40 IMPRESSION: Lateral soft tissue swelling of the ankle. Negative for fracture. Negative for acute abnormality of the right foot. Reading Location: [facility] Elbow X-Ray 08/15/25 14:40 IMPRESSION: Radial head fracture. Reading Location: [facility] Foot X-Ray 08/15/25 14:40 IMPRESSION: Lateral soft tissue swelling of the ankle. Negative for fracture. Negative for acute abnormality of the right foot. Reading Location: [facility] Wrist X-Ray 08/15/25 14:40 IMPRESSION: Negative for acute abnormality of the right wrist. Reading Location: [facility] Discharge Plan Triage Chief Complaint: Fall ED Provider: Reid Lambert Dx/Rx/DC Orders Clinical Impression: Fall, Closed fracture of radial head, Ankle sprain Instructions: ED Radial Head Fracture, ED Ankle Sprain (Adult) Prescriptions: New hydrocodone-acetaminophen 5-325 mg tablet 1 tab PO Q6H PRN (Reason: pain) 3 Days Qty: 12 0RF No Action aspirin 81 mg tablet,delayed release (DR/EC) 81 mg PO DAILY Ingrezza 80 mg capsule PO diphenhydramine HCl [Benadryl Allergy] 25 mg tablet 25 mg PO QHS PRN diclofenac sodium 75 mg tablet,delayed release (DR/EC) PO buspirone 15 mg tablet 15 mg PO BID 90 Days Qty: 180 2RF fluoxetine 40 mg capsule 40 mg PO DAILY 90 Days Qty: 90 2RF amantadine HCl 100 mg tablet 100 mg PO BID simvastatin 40 MG tablet 40 mg PO QHS Patient Comments: TAKE 1 TABLET BY MOUTH EVERY DAY AT NIGHT folic acid 1 MG tablet 1 mg PO DAILY Patient Comments: TAKE 1 TABLET BY MOUTH EVERY DAY metoprolol succinate 25 mg tablet extended release 24 hr See Rx Instructions .ROUTE .COMPLEX Qty: 90 3RF Dose Instruction: TAKE 1 TABLET BY MOUTH EVERY DAY Rx Instructions: TAKE 1 TABLET BY MOUTH EVERY DAY lisinopril 2.5 mg tablet 2.5 mg PO DAILY Qty: 90 3RF clonazepam 0.5 mg tablet 0.25 mg PO BID 30 Days Qty: 30 3RF fluoxetine 20 mg capsule 20 mg PO QDAY Qty: 30 2RF Primary Care Provider: Juvencio Davila Referrals: Juvencio Davila MD [Primary Care Provider, Family Practice] Bertram Arriola MD [Med Staff - Active Staff, Orthopedics] - As soon as possible Print Language: Mohawk Disposition Disposition: Home, Self Care
[2025-08-15 15:45] VITALS: BP 135/99; PULSE 67; RESP 14; TEMP 36.6; O2SAT 98
== END 2025-08-15 15:46 | disposition home or self-care (01) ==
PROVIDERS: Emergency Provider Emergency Medicine; PCP Family Medicine; Visit Provider Emergency Medicine
DX: S52.121A Displaced fracture of head of right radius, initial encounter for closed fracture (principal); I11.0 Hypertensive heart disease with heart failure; I50.9 Heart failure, unspecified; I42.9 Cardiomyopathy, unspecified; S93.401A Sprain of unspecified ligament of right ankle, initial encounter; W10.9XXA Fall (on) (from) unspecified stairs and steps, initial encounter; G47.33 Obstructive sleep apnea (adult) (pediatric); Z79.82 Long term (current) use of aspirin; Z79.899 Other long term (current) drug therapy
CPT/HCPCS: 73080; 73110; 73610; 73630; 99283

== ENCOUNTER → 2025-08-20 | Outpatient (CLI) | payer MEDICARE, OTHER, SELFPAY ==
--- NOTE | 2025-08-20 11:47 | CT_ITS ---
PROCEDURE: CT/Extremity Upper without Contra
== END | disposition home or self-care (01) ==
LOC: CT 11:44
PROVIDERS: PCP Family Medicine; Referring Provider Physician Assistant Surgical; Visit Provider Physician Assistant Surgical
DX: S52.121A Displaced fracture of head of right radius, initial encounter for closed fracture (principal); X58.XXXA Exposure to other specified factors, initial encounter
CPT/HCPCS: 73200

== ENCOUNTER 2025-09-11 17:40 | Inpatient (IN) | payer MEDICARE, OTHER, SELFPAY ==
[2025-09-11] VITALS (8 sets, daily range): BP systolic 129–151; BP diastolic 63–90; PULSE 56–79; RESP 16–18; TEMP 36.4–37; O2SAT 94–100; BMI 33.8; BMI 33.5
--- NOTE | 2025-09-11 18:24 | CT_ITS ---
PROCEDURE: CTA HEAD AND NECK W/ CONTRAST 09/11/2025 REASON FOR EXAM: DYSARTHRIA STARTED THRURS Dysarthria. TECHNIQUE: Procedure Code: [id number].HDNCK Modality: CT Procedure: CTA HEAD AND NECK W/ CONTRAST Multiplanar Sagittal and Coronal images were obtained. Two-dimensional three- dimensional reconstructions were obtained. CONTRAST: Isovue 370 VOLUME: 98 mL One or more dose reduction techniques were used (e.g., Automated exposure control, adjustment of the mA and/or kV according to patient size, use of iterative reconstruction technique). RADIATION DOSE SUMMARY: CTDlvol: 65 mGy DLP: 1575 mGycm COMPARISON: None FINDINGS: CT BRAIN: Cerebrum: Slight loss of cerebral volume. Negative for mass the frontal, parietal, temporal and occipital lobes otherwisenegative. White matter: Mild periventricular white matter changes. Cerebellum: Negative. Negative for mass. Negative for acute infarction. CSF pathways and ventricles: Negative. Negative for ventricular dilatation or obstruction. Basal ganglia and thalami: Negative. No acute infarctions. Brainstem: Midbrain, lc and medulla otherwisenegative. Calvarium: Negative. Negative for fractures. Orbital structures: Globes negative. Extraocular muscles negative. Paranasal sinuses: No air fluid levels. Remainder of the sinuses negative. Vascular structures: Mild tumor calcifications of the intracranial structures. Other: : Negative for acute intracranial hemorrhage. Negative for acute infarction. Remainder of exam negative. CTA BRAIN: Codominant distal vertebral arteries. Otherwise distal vertebral arteries negative. Basilar artery negative. Posterior cerebral arteries: Right posterior cerebral arises directly from the internal carotid artery. Left posterior communicating artery hypoplastic. Negative for stenosis of the posterior cerebral arteries. Posterior cerebral arteries and distal branches negative. Distal internal carotid arteries: Mild vascular calcifications of the distal internal carotid arteries. Negative for stenosis. Anterior cerebral arteries: Anterior communicating artery patent. Anterior cerebral arteries and branches negative. Middle cerebral arteries: Negative for stenosis of the middle cerebral arteries. Middle cerebral arteries and its branches negative. Negative for intracranial aneurysm or significant stenosis. CTA neck: Neck: Intracranial contents negative. Imaged orbits negative. Oropharynx, hypopharynx and larynx negative. Soft tissue neck negative. No cervical adenopathy. Mild emphysematous changes. Imaged upper mediastinum otherwise negative. Aortic arch and branches patent. Right side: Origin of the right common carotid artery negative. Mild vascular calcifications of the common carotid artery and/or internal carotid artery. Negative for hemodynamically significant stenosis of the right common carotid artery. Negative for hemodynamically significant stenosis of the right internal carotid artery. Left side: Origin of the left common carotid artery negative. Mild vascular calcifications of the common carotid and/or internal carotid artery. Negative for hemodynamically significant stenosis of the right common carotid artery. Negative for hemodynamically significant stenosis of the left internal carotid artery. CT/CTA Head AND Neck W/ Contrast IMPRESSION: Negative for acute intracranial pathology. Age-appropriate appearance of the brain Negative CTA of the head Negative for large vessel occlusion. Negative for hemodynamic significant stenosis in either carotid system. Negative CTA of the neck. Reading Location: [id number]
--- NOTE | 2025-09-11 18:24 | CT_ITS ---
PROCEDURE: BRAIN/HEAD WITHOUT CONTRAST N/A REASON FOR EXAM: DYSARTHRIA STARTED SATURDAY TECHNIQUE: Procedure Code: CTBR Modality: CT Procedure: BRAIN/HEAD WITHOUT CONTRAST Coronal and Sagittal reconstruction series were provided. One or more dose reduction techniques were used (e.g., Automated exposure control, adjustment of the mA and/or kV according to patient size, use of iterative reconstruction technique. RADIATION DOSE SUMMARY: CTDlvol: 85 mGy DLP: 1575 mGycm COMPARISON: None FINDINGS: Cerebrum: Mild loss of cerebral volume. Negative for mass the frontal, parietal, temporal and occipital lobes otherwisenegative. White matter: Negative for periventricular white matter changes. Cerebellum: Negative. Negative for mass. Negative for acute infarction. CSF pathways and ventricles: Negative. Negative for ventricular dilatation or obstruction. Basal ganglia and thalami: Negative. No acute infarctions. Brainstem: Midbrain, cl and medulla negative. Calvarium: Negative. Negative for fractures. Orbital structures: Globes negative. Extraocular muscles negative. Paranasal sinuses: No air fluid levels. Remainder of the sinuses negative. Vascular structures: Mild calcifications of the distal intracranial internal carotid arteries. Soft tissues: Negative. Other: : Negative for acute intracranial hemorrhage. Negative for acute infarction. Remainder of exam negative. CT/Brain/Head without Contrast IMPRESSION: Negative for acute intracranial pathology. Reading Location: [id number]
--- NOTE | 2025-09-11 18:25 | EKG12_ITS ---
Test Reason : NEURO Blood Pressure : */* mmHG Vent. Rate : 57 BPM Atrial Rate : 57 BPM P-R Int : 156 ms QRS Dur : 82 ms QT Int : 452 ms P-R-T Axes : 36 -20 -13 degrees QTcB Int : 439 ms Sinus bradycardia Minimal voltage criteria for LVH, may be normal variant ( R in aVL ) Borderline ECG Confirmed by KILO LIU, CHERELLE ([id number]), newspaper managing editor FABRICIO ABDULLAHI ([id number]) on 09/13/2025 1:45:26 PM Referred By: Confirmed By: CHERELLE BOATENG MD
[2025-09-11] MEDS: 0.9% Normal Saline (1000mL) 1,000 ML 1000 ML IV (18:34)
[2025-09-11 18:44] LABS: Hematocrit 41.3 % (37-47); Hemoglobin 14.1 g/dL (12.0-15.0); Immature Granulocytes Count 0.030 X10^3/uL (0.0-0.0); Mean Corp Hgb Conc 34.1 g/dL (32-36); Mean Corpuscular Volume 91.4 fL (81-99); Mean Platelet Vol. 11.2 fl (6.2-12.0); NRBC Flagged by Analyzer 0 % (0-5); Platelet Count 277 K/mm3 (150-450); RBC Distribution Width CV 12.5 % (11.6-14.6); RBC Distribution Width SD 41.8 fl (35.1-43.9); Red Blood Count 4.52 M/mm3 (4.2-5.4); White Blood Count 8.2 K/mm3 (4.4-11.0)
--- NOTE | 2025-09-11 18:50 | RAD_ITS ---
PROCEDURE: CHEST PA AND LATERAL 09/11/2025 REASON FOR EXAM: RULE OUT PNA TECHNIQUE: Procedure Code: RADCXR Modality: DX Procedure: CHEST PA AND LATERAL COMPARISON: May 2023. FINDINGS: Hardware and support lines: None. Heart: Negative. Lungs: Negative for infiltrates, or pulmonary edema. Pleura: No pleural thickening. No pleural effusion. Mediastinum and aorta: Negative for hilar adenopathy. Mildly tortuous thoracic aorta. Bones: Age-appropriate degenerative changes of the spine. Other: Remainder of the exam negative. RAD/Chest PA and Lateral IMPRESSION: Negative for acute cardiopulmonary disease. Reading Location: [id number]
[2025-09-11 18:55] LABS: Anion Gap 12 (5-15); BUN 15 mg/dL (4-19); BUN/Creat Ratio 20.2 RATIO (10-20); Calcium,Total 9.7 mg/dL (7.6-11.0); Carbon Dioxide 23.3 mmol/L (21.0-32.0); Chloride 103 mmol/L (98-108); Estimated Creatinine Clearance 67.64 ml/min (50-250); Glucose 96 mg/dL (70-99); Potassium 3.9 mmol/L (3.3-5.1)
[2025-09-11 19:14] LABS: Mucous, Urine 0 SEEN /hpf (<or=2+); Red Blood Cells-Urine 0 SEEN /hpf (0-5)
[2025-09-11 19:17] LABS: Color, Urine Yellow (Yellow); Glucose, Dipstick Normal (Normal); Ketone-Dipstick Negative (Negative); Leukocyte Esterase-Dipstick 25 /ul (Negative); Nitrite-Dipstick Negative (Negative); Occult Blood-Urine 10 /ul (Negative); Protein-Dipstick 15 mg/dl (Negative); Specific Gravity, Urine 1.010 (1.002-1.030); Urine Bilirubin Dipstick Negative (Negative)
--- OUTSIDE RECORDS SUMMARY | 2025-09-11 19:21 | XMS RPT_ITS | CCD ---
Author Organization [facility] Care Team Providers Care Residential Direct Support Professional Name Role Phone Juvencio Davila Attending Unavailable PROVIDER, UNKNOWN Referring Unavailable Marta, Juvencio Primary Care Unavailable Dr. Juvencio Davila Primary Care Provider Dr. Juvencio Davila Referring Provider [phone] Krystal COLLAR SEWER, COLLAR SEWER-Patrice Dunn Attending Provider Dr. Juvencio Davila Primary Care Provider Dr. Juvencio Davila Referring Provider Dr. Ghulam Rosa Attending Provider [phone] Juvencio Davila MD Primary Care Provider Juvencio Davila MD Primary Care Provider Bridenthal PERSONNEL GENERALIST MANAGER - SOIL FERTILITY EXTENSION SPECIALIST, Adriane Unavailable MARTA JUVENCIO Primary Care Unavailable BRIDENTHAL, ADRIANE Attending Unavailable MARTA, JUVENCIO Primary Care Unavailable JIE MIRANDA Attending Unavailable MARTA, JUVENCIO Primary Care Unavailable BRIDENTHAL, ADRIANE Referring Unavailable BRIDENTHAL, ADRIANE Attending Unavailable AMRTA, JUVENCIO Primary Care Unavailable BRIDENTHAL, ADRIANE Referring Unavailable BRIDENTHAL, ADRIANE Attending Unavailable MARTA, JUVENCIO Primary Care Unavailable BRIDENTHAL, ADRIANE Referring Unavailable ANJEL LARSEN Attending Unavailable MARTA, JUVENCIO Primary Care Unavailable PENG MANN Attending Unavailable MARTA, JUVENCIO Primary Care Unavailable JIE MIRANDA Attending Unavailable BUD MALIK Attending Unavailable MARTA, JUVENCIO Primary Care Unavailable MARTA, JUVENCIO Primary Care Unavailable BRIDENTHAL, ADRIANE Referring Unavailable BRIDENTHAL, ADRIANE Attending Unavailable MARTA, JUVENCIO Primary Care Unavailable BRIDENTHAL, ADRIANE Referring Unavailable BRIDENTHAL, ADRIANE Attending Unavailable MARTA, JUVENCIO Primary Care Unavailable BRIDENTHAL, ADRIANE Referring Unavailable BRIDENTHAL, ADRIANE Attending Unavailable MARTA, JUVENCIO Primary Care Unavailable BRIDENTHAL, ADRIANE Referring Unavailable BRIDENTHAL, ADRIANE Attending Unavailable MARTA, JUVENCIO Primary Care Unavailable BRIDENTHAL, ADRIANE Attending Unavailable MARTA, JUVENCIO Primary Care Unavailable BUD MALIK Referring Unavailable TRISTIN WILCOX Attending Unavailable MARTA, JUVENCIO Primary Care Unavailable JIE MIRANDA Attending Unavailable MARTA, JUVENCIO Primary Care Unavailable SKANJEL RUDD Referring Unavailable MARTA, JUVENCIO Primary Care Unavailable BRIDENTHAL, ADRIANE Attending Unavailable MARTA, JUVENCIO Primary Care Unavailable BRIDENTHAL, ADRIANE Attending Unavailable MARTA, JUVENCIO Primary Care Unavailable JIE MIRANDA Attending Unavailable MARTA, JUVENCIO Primary Care Unavailable PENG MANN Referring Unavailable PENG MANN Attending Unavailable MARTA, JUVENCIO Primary Care Unavailable PENG MANN Referring Unavailable PENG MANN Attending Unavailable MARTA, JUVENCIO Primary Care Unavailable ANJEL LARSEN Referring Unavailable ANJEL LARSEN Attending Unavailable MARTA, JUVENCIO Primary Care Unavailable BRIDENTHAL, ADRIANE Referring Unavailable MARTA, JUVENCIO Attending Unavailable MARTA, JUVENCIO Primary Care Unavailable TEA BAY Referring Unavailable TRISTIN WILCOX Attending Unavailable Andrew Argueta Attending Unavailable Marta, Juvencio Primary Care Unavailable Andrew Argueta Attending Unavailable Marta, Juvencio Primary Care Unavailable Andrew Argueta Attending Unavailable Marta, Juvencio Primary Care Unavailable Marta, Juvencio Primary Care Unavailable Andrew Argueta Attending Unavailable Talya Smith Attending Unavailable Talya Smith Referring Unavailable Marta, Juvencio Primary Care Unavailable Reid Lambert Attending Unavailable Marta, Juvencio Primary Care Unavailable Andrew Argueta Attending Unavailable Marta, Juvencio Primary Care Unavailable Allergies Allergy Classification Reported Allergen(s) Allergy Type Date of Onset Reaction(s) Facility cariprazine (2 sources) cariprazine Drug Allergy 05-24-2023 [facility] (20 sources) cariprazine Drug Allergy 05-24-2023 [facility] (1 source) cariprazine Drug Allergy 08-23-2025 [facility] Repository Medications Current Medications Medication Drug Class(es) Dates Sig (Normalized) Sig (Original) acetaminophen 325 mg oral tablet (3 sources) Start: 03-02-2019 take 650 mg by mouth every six hours as needed Acetaminophen Active 650 MG PO EVERY 6 HOURS NEEDED March 02, 2019 12:00am acetaminophen 325 mg / HYDROcodone bitartrate 5 mg oral tablet (7 sources) Opioid Agonist Start: 12-07-2024 End: 12-17-2024 take 1 tablet by mouth every six hours as needed for pain HYDROcodone-acetami nophen ([place]) 5-325 MG tablet Indications: Closed fracture of right upper extremity, initial encounter Take 1 tablet by mouth every 6 hours as needed for severe pain (7-10) for up to 10 days. 20 tablet 12/07/2024 12/17/2024 Active amantadine hydrochloride 100 mg oral tablet (20 sources) Influenza A M2 Protein Inhibitor Start: 01-01-2025 End: 03-05-2026 take 1 tablet by mouth twice daily amantadine (Symmetrel) 100 MG tablet Take 1 tablet (100 mg) by mouth 2 times daily. 180 tablet 3 03/05/2025 03/05/2026 Active aspirin 81 mg delayed release oral tablet (20 sources) Platelet Aggregation Inhibitor, Nonsteroidal Anti-inflammatory Drug Start: 01-03-2023 take 81 mg by mouth once daily Aspirin Active 81 MG PO DAILY January 03, 2023 12:00am Start: 03-18-2019 End: 12-04-2021 Aspirin (Adult Low Dose Aspi rin) 81 mg tablet,delayed release (DR/EC) Discontinued 81 MG PO DAILY March 18, 2019 12:00am December 04, 2021 4:22pm busPIRone hydrochloride 15 mg oral tablet (20 sources) Start: 03-05-2024 take 1 tablet by mouth twice daily busPIRone (Buspar) 15 MG tablet Indications: Anxiety TAKE 1 TABLET BY MOUTH TWICE A DAY 180 tablet 1 03/05/2024 Active Start: 11-14-2023 End: 12-14-2023 take 1 tablet by mouth twice daily busPIRone (Buspar) 15 MG tablet Indications: Anxiety Take 1 tablet (15 mg) by mouth 2 times daily. 180 tablet 0 12/09/2023 Active Start: 10-16-2023 End: 01-14-2024 take 1 tablet by mouth twice daily busPIRone (Buspar) 10 MG tablet Indications: Anxiety Take 1 tablet (10 mg) by mouth 2 times daily. 180 tablet 0 10/16/2023 11/14/2023 Discontinued (Ineffective) Start: 09-17-2023 End: 09-16-2024 take 1 tablet by mouth twice daily busPIRone (Buspar) 5 MG tablet Indications: Anxiety Take 1 tablet (5 mg) by mouth 2 times daily. 60 tablet 0 09/17/2023 10/16/2023 Discontinued (Reorder) calcium carbonate 1500 mg / cholecalciferol 200 unt oral tablet (20 sources) Vitamin D Start: 12-23-2024 take 2 tablets by mouth once daily Calcium Carb-Cholecalciferol 600-5 MG-MCG tablet Indications: Osteopenia, unspecified location Take 2 tablets by mouth daily. 60 tablet 5 12/23/2024 Active Start: 12-22-2024 End: 06-20-2025 take 2 tablets by mouth once daily Calcium Carb-Cholecalciferol 500-5 MG-MCG tablet tablet Indications: Osteopenia, unspecified location Take 2 tablets by mouth daily. 60 tablet 5 12/22/2024 12/23/2024 Discontinued clonazePAM 0.5 mg oral tablet (20 sources) Benzodiazepine Start: 10-16-2023 End: 09-08-2025 take 0.5 tablet by mouth twice daily clonazePAM (KlonoPIN) 0.5 MG tablet Indications: Anxiety Take 0.5 tablets (0.25 mg) by mouth 2 times daily. 30 tablet 10/16/2023 09/08/2025 Active Start: 06-27-2023 End: 12-24-2023 take 1 tablet by mouth three times daily clonazePAM (KlonoPIN) 0.5 MG tablet Indications: Tardive dyskinesia Take 1 tablet (0.5 mg) by mouth 3 times daily. 90 tablet 5 06/27/2023 09/08/2023 Discontinued (Therapy completed) End: 10-16-2023 take 0.25 mg by mouth twice daily clonazePAM (KlonoPIN) 0.5 MG tablet Take 0.25 mg by mouth 2 times daily. 0 10/16/2023 Discontinued (Reorder) diclofenac sodium 75 mg delayed release oral tablet (20 sources) Nonsteroidal Anti-inflammatory Drug Start: 01-04-2025 take 1 tablet by mouth twice daily diclofenac (Voltaren) 75 MG EC tablet TAKE 1 TABLET BY MOUTH TWICE A DAY DO NOT CRUSH, CHEW OR SPLIT 60 tablet 01/04/2025 Active Start: 10-30-2024 End: 12-01-2024 take 1 tablet by mouth twice daily diclofenac (Voltaren) 75 MG EC tablet TAKE 1 TABLET BY MOUTH TWICE A DAY DO NOT CRUSH, CHEW OR SPLIT 60 tablet 12/01/2024 Active diphenhydrAMINE hydrochloride 25 mg oral tablet (20 sources) Histamine-1 Receptor Antagonist diphenhydrAMINE (BENADryl) 25 MG tablet Take by mouth. Active esomeprazole 20 mg delayed release oral capsule (10 sources) Proton Pump Inhibitor take 1 capsule by mouth once daily before breakfast esomeprazole (NexIUM) [address] capsule Take 20 mg by mouth every morning (before breakfast). Do not open capsule. Active folic acid 1 mg oral tablet (20 sources) Start: take 1 tablet by mouth once daily folic acid (Folvite) 1 MG tablet Take 1 tablet (1,000 mcg) by mouth daily. 90 tablet 1 08/25/2025 Active Start: 02-23-2019 End: 03-08-2025 take 1 tablet by mouth once daily folic acid (Folvite) 1 MG tablet TAKE 1 TABLET BY MOUTH EVERY DAY 90 tablet 1 03/08/2025 Active lisinopril 2.5 mg oral tablet (20 sources) Angiotensin Converting Enzyme Inhibitor Start: 08-25-2025 End: 08-25-2025 take 1 tablet by mouth once daily lisinopril 2.5 MG tablet Take 1 tablet (2.5 mg) by mouth daily. 90 tablet 1 08/25/2025 Active Start: 10-27-2019 End: 08-13-2022 take 1 tablet by mouth once daily lisinopril 2.5 MG tablet Take 2.5 mg by mouth daily. 08/13/2022 Active Start: 04-15-2019 End: 10-27-2019 take 5 mg by mouth once daily Lisinopril Discontinued 5 MG PO DAILY April 15, 2019 11:11am October 27, 2019 3:15pm Start: 03-18-2019 End: 04-15-2019 take 10 mg by mouth once daily Lisinopril Discontinued 10 MG PO DAILY March 18, 2019 12:00am April 15, 2019 11:11am Start: 02-23-2019 End: 03-18-2019 take 20 mg by mouth once daily Lisinopril Discontinued 20 MG PO DAILY February 23, 2019 12:00am March 18, 2019 11:23am melatonin 12 mg oral tablet (20 sources) Start: 12-04-2021 Melatonin Acti ve MG PO December 04, 2021 1:00am Start: 02-23-2019 End: 12-04-2021 take 10 mg by mouth at bedtime Melatonin Discontinued 10 MG PO AT BEDTIME February 23, 2019 12:00am December 04, 2021 4:23pm End: 12-08-2023 Melatonin 2.5 MG chewable ta blet Chew 12 mg. 0 12/08/2023 Discontinued (Therapy completed) Melatonin 2.5 MG chewable tablet Chew 10 mg. 0 Active 24 hr metoprolol succinate 25 mg extended release oral tablet (20 sources) beta-Adrenergic Elliott Start: 08-25-2025 End: 08-25-2025 take 1 tablet by mouth once daily metoprolol succinate XL (Toprol-XL) 25 MG 24 hr tablet Take 1 tablet (25 mg) by mouth daily. 90 tablet 1 08/25/2025 Active Start: 03-09-2024 End: 03-02-2025 take 1 tablet by mouth once daily metoprolol succinate XL (Toprol-XL) 25 MG 24 hr tablet TAKE 1 TABLET BY MOUTH EVERY DAY 90 tablet 1 03/02/2025 Active Start: 03-02-2019 End: 03-31-2023 take 1 tablet by mouth once daily metoprolol succinate XL (Toprol-XL) 25 MG 24 hr tablet Take 25 mg by mouth daily. 0 07/05/2022 Active Multiple Vitamin (multivitamin) tablet (20 sources) take 1 tablet by reagan th once daily Multiple Vitamin (multivitamin) tablet Take 1 tablet by mouth daily. Active take 1 tablet by mouth once nisa y Multiple Vitamin (multivitamin) tablet Take 1 tablet by mouth daily. 0 Active Multivitamin With Folic Acid (3 sources) Start: 02-23-2019 take 1 tablet by mouth once daily Multivitamin With Folic Acid Active 1 TABLET PO DAILY February 23, 2019 5:54pm Start: 02-23-2019 take 1 tablet by reagan th once daily Multivitamin With Folic Acid Active 1 TABLET PO DAILY February 23, 2019 12:00am simvastatin 40 mg oral tablet (20 sources) HMG-CoA Reductase Inhibitor Start: 01-01-2025 End: 06-24-2025 take 1 tablet by mouth once daily simvastatin (Zocor) 40 MG tablet Indications: Hyperlipidemia LDL goal TAKE 1 TABLET BY MOUTH EVERY DAY NIGHTLY 90 tablet 1 06/24/2025 Active Start: 02-23-2019 End: 07-06-2024 take 1 tablet by mouth once daily simvastatin (Zocor) 40 MG tablet Indications: Hyperlipidemia LDL goal TAKE 1 TABLET BY MOUTH EVERY DAY NIGHTLY 90 tablet 1 07/06/2024 Active valbenazine 40 mg oral capsule (20 sources) Start: 09-14-2024 End: 05-03-2026 take 1 capsule by mouth once daily in the morning valbenazine tosylate (Ingrezza) 40 MG capsule Indications: Dyskinesia Take 1 capsule (40 mg) by mouth daily. 30 capsule 1 08/13/2025 8:33 AM EDT 08/09/2025 10/08/2025 Active Start: 09-05-2023 End: 10-24-2024 take 1 capsule by mouth once daily in the evening valbenazine tosylate (Ingrezza) 80 MG capsule Take 1 capsule (80 mg) by mouth daily. 30 capsule 11 08/19/2024 4:11 PM EDT 10/25/2023 10/24/2024 Active Start: 06-27-2023 End: 06-30-2024 take 1 capsule by mouth once daily valbenazine tosylate (Ingrezza) 40 MG capsule Take 1 capsule (40 mg) by mouth daily. 30 capsule 11 07/01/2023 08/05/2023 Discontinued (Med list cleanup) Valbenazine Tosylate (Ingrezza) 60 MG capsule (14 sources) Start: 08-05-2023 take 1 capsule by mouth once daily Valbenazine Tosylate (Ingrezza) 60 MG capsule Take 1 capsule by mouth daily. 30 capsule 11 08/05/2023 Active Start: 08-04-2023 End: 08-05-2023 take 1 capsule by mouth once daily Valbenazine Tosylate (Ingrezza) 60 MG capsule Take 1 capsule by mouth daily. 30 capsule 5 08/04/2023 08/05/2023 Discontinued (Med list cleanup) Completed/Discontinued Medications Medication Drug Class(es) Dates Sig (Normalized) Sig (Original) ascorbic acid 1000 mg oral tablet (20 sources) Vitamin C Start: 08-06-2023 End: 03-08-2025 take 1 tablet by mouth once daily Ascorbic Acid (vitamin C) 1000 MG tablet Take 1,000 mg by mouth daily. 08/06/2023 03/08/2025 Discontinued (Med list cleanup) benztropine mesylate 1 mg oral tablet (12 sources) Anticholinergic, Antihistamine Start: 06-19-2023 End: 07-24-2023 benztropine (Cogentin) 1 MG tablet Indications: Tardive dyskinesia Take 1 mg twice daily x 5 days, then take 2 mg in morning and 1 mg in evening daily x 5 days, then take 2 mg in morning and 2 mg in evening daily 60 tablet 0 06/19/2023 07/24/2023 Discontinued (Therapy completed) Start: 06-03-2023 End: 06-10-2023 take 1 tablet by mouth twice daily benztropine (Cogentin) 1 MG tablet Take 1 tablet (1 mg) by mouth 2 times daily. 30 tablet 0 06/03/2023 06/10/2023 Discontinued 12 hr buPROPion hydrochloride 90 mg / naltrexone hydrochloride 8 mg extended release oral tablet (5 sources) Opioid Antagonist, Aminoketone Start: 10-29-2022 End: 03-26-2023 take 1 tablet by mouth twice daily, then take 2 tablets by mouth twice daily naltrexone-buPROPion ER (Contrave) 8-90 MG ER tablet 1 tablet p.o. twice daily times 1 week then increase to 2 tablets twice a day 120 tablet 0 10/29/2022 03/26/2023 Discontinued (Med list cleanup) cariprazine 1.5 mg oral capsule (3 sources) Atypical Antipsychotic Start: 04-24-2023 End: 05-08-2023 take 1 capsule by mouth once daily Cariprazine (Vraylar) 1.5 MG capsule Take 1 capsule (1.5 mg) by mouth daily. 90 capsule 0 04/24/2023 05/08/2023 Discontinued (Side effects) ertapenem 1000 mg injection (3 sources) Penem Antibacterial Start: 02-26-2019 End: 03-06-2019 take 1 g intravenously once daily Ertapenem Discontinued 1 GM IV DAILY February 26, 2019 12:00am March 06, 2019 12:07am Dx: esbl ecoli bacteremia weekly bmp, cbc, LFT while on iv abx. Fax to [phone] fenofibrate 54 mg oral tablet (3 sources) Peroxisome Proliferator Receptor alpha Agonist Start: 02-23-2019 End: 03-02-2019 take 54 mg by mouth once daily Fenofibrate Discontinued 54 MG PO DAILY February 23, 2019 12:00am March 02, 2019 2:37pm FLUoxetine 20 mg oral capsule (20 sources) Serotonin Reuptake Inhibitor Start: 05-30-2024 End: 07-08-2024 take 1 capsule by mouth once daily FLUoxetine (PROzac) 20 MG capsule Take 20 mg by mouth daily. 05/30/2024 07/08/2024 Discontinued (Med list cleanup) take 1 capsule by mouth once mary ly FLUoxetine (PROzac) 40 MG capsule Take 40 mg by mouth daily. Active gadopiclenol (Vueway) injection 8 mL (2 sources) Start: 07-22-2025 End: 07-22-2025 take 8 mL intravenously once as needed 8 mL, IntraVENous, IMG once PRN, contrast, Starting on [facility] 07/22/25 at 1522, For 1 dose lidocaine hydrochloride 20 mg/ml mucous membrane topical solution (7 sources) Antiarrhythmic, Amide Local Anesthetic Start: 06-19-2023 End: 06-29-2023 take 15 mL by mouth three times daily as needed for pain lidocaine (Xylocaine) 2 % solution Indications: Tardive dyskinesia Take 15 mL by mouth 3 times daily as needed for mild pain (1-3) for up to 10 days. 100 mL 1 06/19/2023 06/29/2023 Start: 03-26-2023 End: 03-26-2023 lidocaine (Xylocaine) 2 % in jection 4 mL Start: 03-26-2023 End: 03-26-2023 lidocaine (Xylocaine) 2 % in jection 4 mL methenamine hippurate 1000 mg oral tablet (20 sources) Start: 05-09-2023 End: 09-17-2024 methenamine hippurate (Hiprex) 1 g tablet 05/09/2023 09/17/2024 Discontinued (Therapy completed) 1 ml methylPREDNISolone acetate 40 mg/ml injection (2 sources) Corticosteroid Start: 03-26-2023 End: 03-26-2023 methylPREDNISolone acetate (DEPO-Medrol) injection 40 mg Start: 03-26-2023 End: 03-26-2023 methylPREDNISolone acetate ( DEPO-Medrol) injection 40 mg nitrofurantoin, macrocrystals 25 mg / nitrofurantoin, monohydrate 75 mg oral capsule (3 sources) Nitrofuran Antibacterial Start: 10-11-2019 End: 12-04-2021 take 100 mg by mouth every twelve hours Nitrofurantoin Monohyd/M-Cryst Discontinued 100 MG PO EVERY 12 HOURS October 11, 2019 1:00am December 04, 2021 4:23pm 2 ml ondansetron 2 mg/ml injection (2 sources) Serotonin-3 Receptor Antagonist Start: 08-11-2024 End: 08-11-2024 4 mg, IntraVENous, Once PRN, nausea, vomiting, Starting on Sat08/11/24 at 0820, For 1 dose, Preprocedure phentermine hydrochloride 37.5 mg oral tablet (20 sources) Sympathomimetic Amine Anorectic Start: 03-26-2023 End: 07-24-2023 take 30-30.9 tablets by mouth once daily before breakfast phentermine (Adipex-P) 37.5 MG tablet Indications: Class 1 obesity due to excess calories without serious comorbidity with body mass index (BMI) of 30.0 to 30.9 in adult Take 1 tablet (37.5 mg) by mouth every morning (before breakfast). 30 tablet 0 05/27/2023 07/24/2023 Discontinued (Therapy completed) Start: 10-27-2019 End: 12-04-2021 Phentermine Discontinued MG PO October 27, 2019 1:00am December 04, 2021 4:24pm risperiDONE 4 mg oral tablet (16 sources) Atypical Antipsychotic Start: 07-04-2022 End: 04-24-2023 take 1.5 tablets by mouth once daily risperiDONE (RisperDAL) 4 MG tablet TAKE 1.5 TABLETS BY MOUTH EVERY DAY 135 tablet 1 12/31/2022 04/24/2023 Discontinued Start: 12-04-2021 take 6 mg by mouth once daily Risperidone Active 6 MG PO DAILY December 04, 2021 1:00am Start: 02-23-2019 End: 12-04-2021 take 2 mg by mouth once daily Risperidone Discontinued 2 MG PO DAILY February 23, 2019 12:00am December 04, 2021 4:24pm End: 05-27-2023 take 1 tablet by mouth once daily risperiDONE (RisperDAL) 4 MG tablet Take 4 mg by mouth daily. 0 05/27/2023 Discontinued 5 ml sodium chloride 9 mg/ml injection (12 sources) Start: 08-11-2024 End: 08-11-2024 10 mL, IntraVENous, Every 12 hours scheduled (2 times per day), First dose on Sat08/11/24 at 0900, Preprocedure Start: 08-11-2024 End: 08-11-2024 take 100 mL intravenously every hour as needed, then take 20 mL intravenously every hour as needed 5-250 mL/hr, IntraVENous, PRN, if patient receiving piggyback infusions and maintenance fluids are not ordered OR KVO fluids to protect IV site / prevent frequent line interruptions/ long duration, Starting on Sat08/11/24 at 0820, Preprocedure, For piggyback infusion, administer at same rate as piggyback for a total of 25 mL. Enter 25 mL into dose field and piggyback rate into rate field of order. If piggyback is infusing at a rate less than 100 mL/hr, enter 25 mL into dose field and 100 mL/hr into rate field of order. For KVO fluids, enter rate of 20 mL/hr or less into rate field of order. Start: 08-11-2024 End: 08-11-2024 take 10 mL intravenously once as needed 10 mL, IntraVENous, PRN, line care, Starting on Sat08/11/24 at 0820, Preprocedure, After every IV line use triamcinolone acetonide 0.001 mg/mg oral paste (20 sources) Corticosteroid Start: 06-27-2023 End: 12-30-2023 take 20 g by mouth every two hours as needed triamcinolone (Kenalog) 0.1 % oral paste Apply to affected area every 2 hours as needed. 20 g 0 06/27/2023 12/30/2023 Discontinued (Med list cleanup) 24 hr venlafaxine 150 mg extended release oral capsule (20 sources) Serotonin and Norepinephrine Reuptake Inhibitor Start: 04-01-2023 End: 04-13-2024 take 2 capsules by mouth once daily venlafaxine XR (Effexor XR) 150 MG 24 hr capsule Indications: Recurrent major depressive disorder, in full remission (HCC) Take 2 capsules (300 mg) by mouth daily. 180 capsule 1 10/16/2023 02/10/2024 Discontinued (Ineffective) Start: 07-06-2022 End: 07-02-2024 take 1 capsule by mouth once daily venlafaxine XR (Effexor XR) 150 MG 24 hr capsule Take 150 mg by mouth daily. 0 07/06/2022 Active Start: 07-06-2022 End: 04-03-2024 take 1 capsule by mouth once daily venlafaxine XR (Effexor XR) 75 MG 24 hr capsule TAKE 1 CAPSULE BY MOUTH DAILY WITH A 150 MG CAPSULE 90 capsule 1 04/01/2023 05/27/2023 Discontinued Start: 02-23-2019 take 150 mg by mouth once nisa y Venlafaxine Active 150 MG PO DAILY February 23, 2019 12:00am Start: 02-23-2019 take 75 mg by mouth once daily Venlafaxine Active 75 MG PO DAILY February 23, 2019 12:00am vitamin b12 1 mg oral tablet (3 sources) Vitamin B12 Start: 02-23-2019 End: 03-02-2019 take 1000 ug by mouth once daily Cyanocobalamin (Vitamin B-12) Discontinued 1000 MCG PO DAILY February 23, 2019 12:00am March 02, 2019 2:37pm Problems Active Problems Problem Classification Problem Date Documented Da te Episodic/Chronic Abdominal pain (1 source) Left flank pain; Translations: [Unspecified abdominal pain] 07-08-2024 Episodic Anxiety disorders (20 sources) Anxiety; Translations: [Anxiety disorder, unspecified] Onset: 07-29-2015 08-04-2022 Chronic Cardiac dysrhythmias (6 sources) Atrial tachycardia; Translations: [Supraventricular tachycardia] Chronic Congestive heart failure; nonhypertensive (20 sources) Congestive heart failure; Translations: [Heart failure, unspecified] Onset: 09-11-2019 03-18-2019 Chronic Delirium, dementia, and amnestic and other cognitive disorders (20 sources) Dementia; Translations: [Mild dementia without behavioral disturbance, psychotic disturbance, mood disturbance, or anxiety, unspecified dementia type (HCC)] Onset: 12-08-2024 08-01-2023 Chronic Disorders of lipid metabolism (20 sources) Hyperlipidemia; Translations: [Hyperlipidemia, unspecified] Onset: 07-29-2015 08-04-2022 Chronic Essential hypertension (20 sources) Essential hypertension; Translations: [Essential (primary) hypertension] Onset: 07-29-2015 Chronic Fracture of upper limb (20 sources) Closed fracture of head of radius; Translations: [Nondisplaced fracture of head of right radius, initial encounter for closed fracture] Onset: 12-05-2024 12-05-2024 Episodic Genitourinary symptoms and ill-defined conditions (20 sources) Mixed urinary incontinence; Translations: [Mixed incontinence] Onset: 09-08-2024 09-08-2024 Chronic Malaise and fatigue (20 sources) Fatigue; Translations: [Chronic fatigue, unspecified] Onset: 07-29-2015 08-04-2022 Chronic Mood disorders (20 sources) Recurrent major depression in full remission; Translations: [Major depressive disorder, recurrent, in full remission] Onset: 10-26-2021 08-04-2022 Chronic Other connective tissue disease (3 sources) Pain in right arm; Translations: [Pain in right arm] 12-10-2024 Episodic Other hereditary and degenerative nervous system conditions (20 sources) Medication-induced movement disorder; 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, unspecified] Onset: 05-08-2023 05-08-2023 Chronic Other hereditary and degenerative nervous system conditions (20 sources) Dystonia; Translations: [Dystonia, unspecified] Onset: 07-01-2023 12-27-2023 Chronic Other hereditary and degenerative nervous system conditions (1 source) Orofacial dyskinesia; 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] 07-05-2024 Chronic Other hereditary and degenerative nervous system conditions (5 sources) Dyskinesia; Translations: [Dystonia, unspecified] 09-14-2024 Chronic Other hereditary and degenerative nervous system conditions (1 source) Dystonia, unspecified; Translations: [Dystonia, unspecified] Onset: 09-14-2024 Chronic Other hereditary and degenerative nervous system conditions (1 source) Drug-induced orofacial dyskinesia; Translations: [Drug induced subacute dyskinesia] 12-08-2023 Episodic Other hereditary and degenerative nervous system conditions (1 source) Neuroleptic-induced tardive dyskinesia; Translations: [Drug induced subacute dyskinesia] 01-01-2025 Episodic Other injuries and conditions due to external causes (1 source) Encounter for examination and observation following other accident; Translations: [Encounter for examination and observation following other accident] Onset: 08-27-2025 Episodic Other nervous system disorders (1 source) Parkinsonism due to drug; Translations: [Other drug induced secondary parkinsonism] 09-15-2024 Chronic Other nervous system disorders (12 sources) Cervical myelopathy; Translations: [Disease of spinal cord, unspecified] 10-30-2024 Chronic Other nervous system disorders (2 sources) Disease of spinal cord, unspecified; Translations: [Disease of spinal cord, unspecified (HCC)] Onset: 06-07-2025 Chronic Other nervous system disorders (2 sources) Other chronic pain; Translations: [Other chronic pain] Onset: 10-12-2024 Chronic Other nervous system disorders (1 source) Abnormal gait; Translations: [Unspecified abnormalities of gait and mobility] 04-02-2024 Episodic Other nutritional; endocrine; and metabolic disorders (20 sources) Obesity; Translations: [Other obesity due to excess calories] Onset: 03-26-2023 03-26-2023 Chronic Other nutritional; endocrine; and metabolic disorders (20 sources) Obesity caused by energy imbalance; Translations: [Other obesity due to excess calories] Onset: 03-26-2023 04-24-2023 Chronic Other skin disorders (4 sources) Mass of subcutaneous tissue of back; Translations: [Localized swelling, mass and lump, trunk] 07-22-2025 Episodic Other skin disorders (2 sources) Localized swelling, mass and lump, trunk; Translations: [Localized swelling, mass and lump, trunk] Onset: 07-22-2025 Episodic Parkinson`s disease (2 sources) Parkinson`s disease; Translations: [Parkinson's disease without dyskinesia, without mention of fluctuations (HCC)] Onset: 12-08-2024 Cecy-; endo-; and myocarditis; cardiomyopathy (except that caused by tuberculosis or sexually transmitted disease) (20 sources) Cardiomyopathy; Translations: [Cardiomyopathy, unspecified] Onset: 09-11-2019 Chronic Residual codes; unclassified (20 sources) Obstructive sleep apnea syndrome; Translations: [Obstructive sleep apnea (adult) (pediatric)] Onset: 07-29-2015 08-04-2022 Chronic Residual codes; unclassified (3 sources) Chill; Translations: [Chills (without fever)] 04-15-2019 Episodic Residual codes; unclassified (4 sources) Postmenopausal state; Translations: [Asymptomatic menopausal state] 09-18-2023 Episodic Spondylosis; intervertebral disc disorders; other back problems (19 sources) Degeneration of cervical intervertebral disc; Translations: [Cervical spondylosis] Onset: 11-02-2024 10-30-2024 Chronic Unclassified (20 sources) Parkinson's disease; Translations: [Parkinson's disease without dyskinesia or fluctuating manifestations (HCC)] Onset: 12-08-2024 07-02-2024 Chronic Unclassified (1 source) Unspecified dementia, mild, without behavioral disturbance, psychotic disturbance, mood disturbance, and anxiety (HCC); Translations: [Unspecified dementia, mild, without behavioral disturbance, psychotic disturbance, mood disturbance, and anxiety (HCC)] Onset: 12-08-2024 Unclassified (1 source) Low back pain, unspecified; Translations: [Low back pain, unspecified] Onset: 10-12-2024 Unclassified (1 source) Other intervertebral disc degeneration, lumbar region with discogenic back pain only; Translations: [Other intervertebral disc degeneration, lumbar region with discogenic back pain only] Onset: 10-30-2024 Urinary tract infections (3 sources) Urinary tract infectious disease; Translations: [Urinary tract infection, site not specified] 10-12-2019 Episodic Past or Other Problems Problem Classification Problem Date Documented Da te Episodic/Chronic Chronic obstructive pulmonary disease and bronchiectasis (20 sources) Bronchitis; Translations: [Bronchitis, not specified as acute or chronic] Onset: 11-15-2021 Resolved: 08-19-2023 08-04-2022 Episodic Conditions associated with dizziness or vertigo (20 sources) Benign paroxysmal positional vertigo; Translations: [Benign paroxysmal vertigo, bilateral] Onset: 05-01-2022 Resolved: 12-08-2024 08-04-2022 Episodic Diabetes mellitus without complication (20 sources) Prediabetes; Translations: [Prediabetes] Onset: 04-18-2018 08-04-2022 Episodic Genitourinary symptoms and ill-defined conditions (20 sources) Urinary symptoms ; Translations: [Unspecified symptoms and signs involving the genitourinary system] Onset: 03-23-2024 Resolved: 12-08-2024 03-23-2024 Episodic Mood disorders (20 sources) Mood disorders Onset: 10-29-2022 Resolved: 03-08-2025 10-29-2022 Neoplasms of unspecified nature or uncertain behavior (20 sources) 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; Translations: [Neoplasm of uncertain behavior of skin] Onset: 10-10-2023 Resolved: 12-08-2024 10-10-2023 Episodic Other bone disease and musculoskeletal deformities (20 sources) Osteopenia; Translations: [Other specified disorders of bone density and structure, unspecified site] Onset: 12-22-2024 12-22-2024 Episodic Other connective tissue disease (20 sources) Trochanteric bursitis; Translations: [Trochanteric bursitis, right hip] Onset: 05-01-2022 Resolved: 07-08-2024 08-04-2022 Episodic Other connective tissue disease (2 sources) Pain in right arm; Translations: [Pain in right arm] Onset: 12-10-2024 Episodic Other hereditary and degenerative nervous system conditions (20 sources) Tardive dyskinesia; Translations: [Drug induced subacute dyskinesia] Onset: 05-08-2023 05-08-2023 Episodic Other hereditary and degenerative nervous system conditions (20 sources) Subacute dyskinesia due to drug; Translations: [Drug induced subacute dyskinesia] Onset: 05-08-2023 07-03-2024 Episodic Other non-traumatic joint disorders (20 sources) Pain in right shoulder; Translations: [Pain in joint, shoulder region] Onset: 09-08-2024 Resolved: 12-08-2024 09-08-2024 Episodic Other nutritional; endocrine; and metabolic disorders (20 sources) Body mass index 30+ - obesity; Translations: [Obesity, unspecified] Onset: 04-25-2021 Resolved: 03-26-2023 08-04-2022 Chronic Other nutritional; endocrine; and metabolic disorders (20 sources) Weight loss; Translations: [Abnormal weight loss] Onset: 08-19-2023 Resolved: 10-12-2024 08-19-2023 Episodic Other nutritional; endocrine; and metabolic disorders (16 sources) Weight decreased; Translations: [Abnormal weight loss] Onset: 08-19-2023 Resolved: 10-12-2024 10-12-2024 Episodic Other screening for suspected conditions (not mental disorders or infectious disease) (20 sources) Patient encounter status; Translations: [Encounter for screening for diseases of the blood and blood-forming organs and certain disorders involving the immune mechanism] Onset: 12-08-2024 12-30-2023 Episodic Other skin disorders (20 sources) Sebaceous cyst of skin; Translations: [Sebaceous cyst] Onset: 05-23-2021 Resolved: 08-19-2023 08-04-2022 Episodic Other skin disorders (20 sources) Skin lesion; Translations: [Disorder of the skin and subcutaneous tissue, unspecified] Onset: 09-18-2023 Resolved: 10-12-2024 09-18-2023 Episodic Other upper respiratory infections (20 sources) Acute bacterial sinusitis; Translations: [Acute sinusitis, unspecified] Onset: 11-15-2021 Resolved: 08-19-2023 08-04-2022 Episodic Residual codes; unclassified (20 sources) Flushing; Translations: [Flushing] Onset: 08-19-2023 Resolved: 10-12-2024 08-19-2023 Episodic Residual codes; unclassified (2 sources) Asymptomatic menopausal state; Translations: [Asymptomatic menopausal state] Onset: 12-21-2024 Episodic Spondylosis; intervertebral disc disorders; other back problems (20 sources) Acute low back pain; Translations: [Acute left-sided low back pain without sciatica] Onset: 10-12-2024 07-08-2024 Episodic Unclassified (1 source) Unspecified dementia, mild, without behavioral disturbance, psychotic disturbance, mood disturbance, and anxiety (HCC); Translations: [Unspecified dementia, mild, without behavioral disturbance, psychotic disturbance, mood disturbance, and anxiety (HCC)] Onset: 12-08-2024 Unclassified (1 source) Low back pain, unspecified; Translations: [Low back pain, unspecified] Onset: 10-30-2024 Unclassified (1 source) Other intervertebral disc degeneration, lumbar region with discogenic back pain only; Translations: [Other intervertebral disc degeneration, lumbar region with discogenic back pain only] Onset: 10-30-2024 Results Test Name Value Interpretation Reference Range Facility 36on 08-25-2025 36 Rx [facility] 36 Rx sent [facility] 36 Prescription Request : Last medication check: 02/10/24 Last physical exam: 12/08/24 Next scheduled appointment: 10/12/25 Last date of refill on this medication - 08/13/22 lisinopril 2.5mg I am not sure we prescribe for her 03/02/25 metoprolol 90 and 1 refill [facility] 36 Prescription Request : Last medication check: 02/10/24 Last physical exam: 12/08/24 Next scheduled appointment: 10/12/25 Last date of refill on this medication 03/08/25 90 and 1 refill [facility] MR/BMS.BPon 08-23-2025 MR/BMS.BP [address], [address] [place] [address] OFFICE VISIT Date of Service: 08/23/25 MR#: [id number] Acct: [id number] Name: KAMILA JOSEPH Rep #: [id number] : 1955 Provider: Dr. Andrew Cobian se, Age/Sex: 70/F [place] [facility] [place]: Signed Intake Vital Signs 05/06/25 09:32 08/23/25 13:01 Height 5 ft 2 in 5 ft 2 in Weight: 186 lb BMI 34.0 BP 128/82 H Blood Pressure Location Lt brachial Position Sitting Respiration 16 Pulse 91 Pulse Source Monitor BP Intake Visit Reasons: 3 M FU Accompanied by: Daughter Allergies cariprazine (From [facility]) Allergy (Mild, Verified 08/23/25 13:07) DIZZINESS Medications ???Medication ???Instructions ???Recorded ???Confirmed ???Type folic acid 1 mg tablet 1 mg PO DAILY SUPPLEMENT 02/23/19 08/23/25 History simvastatin 40 mg tablet 40 mg PO QHS CHOLESTEROL 02/23/19 08/23/25 History aspirin 81 mg tablet,delayed 81 mg PO DAILY 01/03/23 08/23/25 H istory release metoprolol succinate 25 mg See Rx Instructions .Route 3 08/23/25 Rx tablet,extended release 24 hr .COMPLEX #90 tabs diphenhydramine HCl 25 mg tablet 25 mg PO QHS PRN 12/04/23 08/23/25 History (Benadryl Allergy) valbenazine 80 mg capsule mg PO 12/04/23 08/23/25 History (Ingrezza) lisinopril 2.5 mg tablet 2.5 mg PO DAILY #90 TABLETS 08/23/25 Rx diclofenac sodium 75 mg mg PO 12/08/24 08/23/25 History tablet,delayed release amantadine HCl 100 mg tablet 100 mg PO BID 03/09/25 08/23/25 Hi story hydrocodone-acetaminop hen 5-325mg 1 tab PO Q6H PRN pain 3 days #12 08/15/25 08/23/25 Rx 5mg-325mg tabs buspirone 15 mg tablet 15 mg PO BID 90 days #180 tabs 01/1208/23/25 Rx clonazepam 0.5 mg tablet 0.25 mg (1/2 x 0.5 mg) PO BID 30 1 10/23/24 08/23/25 Rx days #30 tabs fluoxetine 20 mg capsule 20 mg PO QDAY #90 caps 08/23/25 Rx fluoxetine 40 mg capsule 40 mg PO DAILY 90 days #90 caps 08/23/25 Rx Have you fallen in the past year?: Yes (broken elbow) PENDING SALE TO [facility] Medical History MDD (major depressive disorder) Major depressive disorder in full remission History of uterine ablation Atrial tachycardia TERESA (obstructive sleep apnea) Depression Essential hypertension Cardiomyopathy Congestive heart failure Infection due to ESBL-producing Escherichia coli Lower back pain Surgical History History of tonsillectomy History of carpal tunnel surgery Family History Mother Heart disease Father Heart disease Brother Heart disease Social History Smoking Status: Never smoker alcohol intake: never substance use type: does not use caffeine: Yes (occasionally) HPI History of Present Illness History provided by: patient HPI: Kamila Joseph is a 70 year old female who presents today for follow up evaluation. Patient reports that she fell at a football game last week and broke her elbow and sprained her ankle. Unsure if she has to have surgery or not. Before this mood has been good. Has been feeling better as her sister essentially has helped her get out of house nearly everyday. Has been tanning regularly and almost every day. Sleep has been fairly good. Getting about 10-12 hours at night. Still getting up 4-5 times per night. Reports that Adele continues to work largely well. Does still have some mild orofacial movement which caused her to bite the inside of her mouth at times. Appetite has been stable. Continues to feel to have intermittent sensation of a foggy sensation. This tends to happen intermittently but can cause imbalance. Review of Systems Constitutional Denies: fever(s), chills, change in weight or fatigue Eyes Denies: change in vision or blurry vision Ears, Nose, Mouth, Throat Denies: throat pain, neck pain or change in hearing Cardiovascular Denies: chest pain, palpitations or dyspnea Respiratory Denies: dyspnea, cough or wheezing Gastrointestinal Denies: abdominal pain, nausea, vomiting, diarrhea or constipation Genitourinary Denies: dysuria or urinary frequency Musculoskeletal Denies: back pain, neck pain, joint pain or muscle weakness Integumentary/Breast Denies: rash or new lesions Neurological Reports: dizziness and involuntary movements (Largely reduced at this time); Denies: headache(s) or confusion Endocrine Reports: excessive sweating; Denies: fatigue Hematologic/Lymphatic Denies: easy bruising or easy bleeding Allergic/Immunologic Denies: wheezing Exam Mental Status Exam - Psych Appearan (more content not included)... Normal [facility] Extremity Upper without Cont raon 08-20-2025 Extremity Upper without Contra [facility] [address] [place], [place] [id number] Extremity Upper without Contra MR#: [id number] Acct: [id number] Name: KAMILA JOSEPH Rep #: [id number] : 1955 F 70 From: Clarke De Leon MD PCP: Dr. Juvencio Davila MD Status: REG CLI Study: Extremity Upper without Contra Date of Exam: 1 Exam# [id number] Ordering Dr: Talya Smith PROCEDURE: EXTREMITY UPPER WITHOUT CONTRA 08/20/2025 REASON FOR EXAM: FRACTURE TECHNIQUE: Procedure Code: CTEUWO Modality: CT Procedure: EXTREMITY UPPER WITHOUT CONTRA Coronal and Sagittal reconstruction series were provided. One or more dose reduction techniques were used (e.g., Automated exposure control, adjustment of the mA and/or kV according to patient size, use of iterative reconstruction technique. RADIATION DOSE SUMMARY: CTDlvol: 24 mGy DLP: 542 mGycm COMPARISON: August 15, 2025 FINDINGS: Bones: A fracture of the radial head is present including the ventral half of the articular surface where there is 3 mm of depression. No other fracture seen. Joints: Proximal humeral ulnar joint, radiocapitellar and humeroulnar joints are intact. Soft Tissues: No joint effusion. CT/Extremity Upper without Contra IMPRESSION: Radial head fracture as above. Reading Location: [id number] CC: Dr. Juvencio Davila MD; ROEL Griffith Apartment Maintenance Manager: Signed Normal [facility] Ankle min 3 Viewson 08-15-[address] [facility] [address] [place] [address] Ankle min 3 Views MR#: [id number] Acct: [id number] Name: KAMILA JOSEPH Rep #: [id number] : 1955 F 70 From: Bolivar Stevens MD PCP: Dr. Juvencio Davila MD Status: REG ER Study: Ankle min 3 Views Date of Exam: 08/15/25 Exam# [id number] Ordering Dr: Reid Lambert DO PROCEDURE: FOOT MIN 3 VIEWS; ANKLE MIN 3 VIEWS 08/15/2025 REASON FOR EXAM: INJURY TECHNIQUE: Procedure Code: RADFO; RADANK Modality: DX Procedure: FOOT MIN 3 VIEWS; ANKLE MIN 3 VIEWS Laterality: Right COMPARISON: None FINDINGS: Three views of the right ankle. Bones: Distal tibia and fibula negative. Imaged hindfoot and metatarsals negative. Joints: Soft tissues: Moderate lateral soft tissue swelling.. Other: Remainder of the exam negative. Three views of the right foot. Bones: Distal tibia and fibula otherwise negative. Tarsals metatarsals and phalanges otherwise negative. Joints: High-riding arch. Negative for joint space narrowing. Soft tissues: . Negative for radiopaque foreign body. Negative for soft tissue swelling. Other: Adjacent soft tissues otherwise negative. Remainder of exam negative. RAD/Ankle min 3 Views IMPRESSION: Lateral soft tissue swelling of the ankle. Negative for fracture. Negative for acute abnormality of the right foot. Reading Location: [id number] CC: Dr. Reid Lambert DO; Dr. Juvencio Davila MD Apartment Maintenance Manager: Signed [facility] Elbow min 3 Viewson 08-15-[address] [facility] [address] [place] [id number] Elbow min 3 Views MR#: [id number] Acct: [id number] Name: KAMILA JOSEPH Rep #: [id number] : 1955 F 70 From: Bolivar Stevens MD PCP: Dr. Juvencio Davila MD Status: REG ER Study: Elbow min 3 Views Date of Exam: 08/15/25 Exam# [id number] Ordering Dr: Reid Lambert DO PROCEDURE: ELBOW MIN 3 VIEWS 08/15/2025 REASON FOR EXAM: INJURY TECHNIQUE: Procedure Code: JAD Modality: DX Procedure: ELBOW MIN 3 VIEWS Laterality: Right COMPARISON: None FINDINGS: Bones: Mildly offset radial head fracture. Distal humerus negative. Proximal ulna negative. Joints: Joint anterior fat pad displacement. Soft tissues: Soft tissues soft tissues negative. Other: Remainder of the exam negative. RAD/Elbow min 3 Views IMPRESSION: Radial head fracture. Reading Location: [facility] CC: Dr. Reid Lambert DO; Dr. Juvencio Davila MD Apartment Maintenance Manager: Signed Normal [facility] Emergency Department Summary on 08-15-2025 Emergency Department Summary [facility] Medical Records Department [address] [place] [address] Emergency Department Summary 08/15/25 MR#: [id number] Acct: [id number] Name: KAMILA JOSEPH Rep #: [id number] : 1955 70 From: Reid Lambert DO PCP: Dr. Juvencio Davila MD Status:DEP ER Location: ED HPI HPI - Fall History of Present Illness Chief Complaint: Fall Informant: patient Narrative Narrative: 70-year-old female presenting to the emergency room with foot and ankle pain. Patient states that Saturday night she was at a local football game and went to these the stadium going down the stairs when she fell. States she has balance issues and was carrying a lot of things. She notes pain in the right elbow and right wrist but has been able to range it. She notes pain in the right ankle and the top of her foot when she bears weight. No reported head injury or loss of consciousness. She denies any neck or back pain. [facility] Medical History MDD (major depressive disorder) Major depressive disorder in full remission History of uterine ablation Atrial tachycardia TERESA (obstructive sleep apnea) Depression Essential hypertension Cardiomyopathy Congestive heart failure Infection due to ESBL-producing Escherichia coli Lower back pain Home Medications ???Medication ???Instructions ???Recorded ???Last Taken ???Type folic acid 1 mg tablet 1 mg PO DAILY SUPPLEMENT 02/23/19 06/11/23 History simvastatin 40 mg tablet 40 mg PO QHS CHOLESTEROL 02/23/19 06/10/23 History aspirin 81 mg tablet,delayed 81 mg PO DAILY 01/03/23 06/11/23 H istory release metoprolol succinate 25 mg See Rx Instructions .Route 3 06/11/23 Rx tablet,extended release 24 hr .COMPLEX #90 tabs diphenhydramine HCl 25 mg tablet 25 mg PO QHS PRN 12/04/23 Unknown History (Benadryl Allergy) valbenazine 80 mg capsule mg PO 12/04/23 Unknown History (Ingrezza) lisinopril 2.5 mg tablet 2.5 mg PO DAILY #90 TABLETS Unknown Rx buspirone 15 mg tablet 15 mg PO BID 90 days #180 tabs Unknown Rx diclofenac sodium 75 mg mg PO 12/08/24 Unknown History tablet,delayed release fluoxetine 40 mg capsule 40 mg PO DAILY 90 days #90 caps Unknown Rx amantadine HCl 100 mg tablet 100 mg PO BID 03/09/25 Unknown His tory clonazepam 0.5 mg tablet 0.25 mg (1/2 x 0.5 mg) PO BID 30 0 06/01/25 Unknown Rx days #30 tabs fluoxetine 20 mg capsule 20 mg PO QDAY #30 caps 07/02/25 Un known Rx hydrocodone-acetaminop hen 5-325mg 1 tab PO Q6H PRN pain 3 days #12 08/15/25 Unknown Rx 5mg-325mg tabs Allergy/AdvReac Type Severity Reaction Status Date / Time cariprazine (From [facility]) Allergy Mild DIZZINESS Verified 08/15/25 14:05 Family History Mother Heart disease Father Heart disease Brother Heart disease Surgical History History of tonsillectomy History of carpal tunnel surgery Social History Smoking Status: Never smoker alcohol intake: never substance use type: does not use caffeine: Yes (occasionally) ROS ROS ED Constitutional Constitutional ED: Denies chills, fever(s) or weight loss Eyes Eyes: Denies change in vision or diplopia ENT ENT ED: Denies ear pain, rhinorrhea or sore throat Cardiovascular Cardiovascular: Denies chest pain, orthopnea, palpitations or racing heartbeat Respiratory/Chest Respiratory/Chest: Denies cough, dyspnea or orthopnea Gastrointestinal Gastrointestinal: Denies abdominal pain, diarrhea, nausea or vomiting Genitourinary Genitourinary ED: Denies dysuria, hematuria or urinary frequency Musculoskeletal Musculoskeletal: Reports other Details: Right elbow and wrist pain, right foot and ankle pain ; Denies arthralgias, back pain, myalgias or neck pain Integumentary Denies abscess or rash Neurologic Neurologic: Denies headache(s) or weakness Psychiatric Psychiatric: Denies anxiety, depression, suicidal ideation or suicidal thoughts Endocrine Endocrinology: Denies polydipsia, polyphagia or polyuria Allergic/Immunologic Allergic/Immunologic ED: Denies mouth swelling, tongue swelling or urticaria EXAM Physical Exam Const Vital Signs: 08/15/25 14:04 Temperature 98.4 F Temperature Source Oral Pulse Rate 88 Respiratory Rate 16 Blood Pressure 133/81 H Blood Pressure Mean 98 Pulse Ox 98 Oxygen Delivery Method Room Air Positive well nourished and well developed General Appearance ED: well developed and NAD HEENT Reports normocephalic, head/scalp atraumatic and moist mucous membranes Eyes PERRL and EOMs intact bilaterally Neck (more content not included)... Normal [facility] Foot min 3 Viewson Foot min [address] [facility] [address] [place], [place] [id number] Foot min 3 Views MR#: [id number] Acct: [id number] Name: KAMILA JOSEPH Rep #: [id number] : 1955 F 70 From: Bolivar Stevens MD PCP: Dr. Juvencio Davila MD Status: REG ER Study: Foot min 3 Views Date of Exam: 08/15/25 Exam# [id number] Ordering Dr: Reid Lambert DO PROCEDURE: FOOT MIN 3 VIEWS; ANKLE MIN 3 VIEWS 08/15/2025 REASON FOR EXAM: INJURY TECHNIQUE: Procedure Code: RADFO; RADANK Modality: DX Procedure: FOOT MIN 3 VIEWS; ANKLE MIN 3 VIEWS Laterality: Right COMPARISON: None FINDINGS: Three views of the right ankle. Bones: Distal tibia and fibula negative. Imaged hindfoot and metatarsals negative. Joints: Soft tissues: Moderate lateral soft tissue swelling.. Other: Remainder of the exam negative. Three views of the right foot. Bones: Distal tibia and fibula otherwise negative. Tarsals metatarsals and phalanges otherwise negative. Joints: High-riding arch. Negative for joint space narrowing. Soft tissues: . Negative for radiopaque foreign body. Negative for soft tissue swelling. Other: Adjacent soft tissues otherwise negative. Remainder of exam negative. RAD/Foot min 3 Views IMPRESSION: Lateral soft tissue swelling of the ankle. Negative for fracture. Negative for acute abnormality of the right foot. Reading Location: [id number] CC: Dr. Reid Lambert DO; Dr. Juvencio Davila MD Apartment Maintenance Manager: Signed [facility] Wrist min 3 Viewson 08-15-[address] [facility] [address] [facility] [place] [place] [id number] Wrist min 3 Views MR#: [id number] Acct: [id number] Name: KAMILA JOSEPH Rep #: [id number] : 1955 F 70 From: Bolivar Stevens MD PCP: Dr. Juvencio Davila MD Status: REG ER Study: Wrist min 3 Views Date of Exam: 08/15/25 Exam# [id number] Ordering Dr: Reid Lambert DO PROCEDURE: WRIST MIN 3 VIEWS 08/15/2025 REASON FOR EXAM: INJURY TECHNIQUE: Procedure Code: RADWR Modality: DX Procedure: WRIST MIN 3 VIEWS Laterality: Right FINDINGS: Bones: Diffuse osteopenia. Distal radius and ulna otherwise negative. Carpals and metacarpals otherwise negative. Negative for fracture. Joints:Degenerative changes in the distal radioulnar joint. Soft tissues: Adjacent soft tissues otherwise negative. Negative for soft tissue swelling. Other: Remainder of exam negative. RAD/Wrist min 3 Views IMPRESSION: Negative for acute abnormality of the right wrist. Reading Location: [id number] CC: Dr. Reid Lambert DO; Dr. 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 Requested Prescriptions Signed Prescriptions Disp Refills valbenazine tosylate (Ingrezza) 40 MG capsule 30 capsule 1 Sig: Take 1 capsule (40 mg) by mouth daily. Authorizing Provider: VIOLET CASTELLANOS [facility] 36on 06-24-2025 36 Reviewed chart. Refi ll appropriate. RX sent. [facility] 36 Prescription Request : SIMVASTATIN 40 MG TABLET Last medication check: 03/08/25 Last physical exam 12/08/24 Next scheduled appointment: 10/12/25 Last date of refill on this medication 01/01/25 ( qty 90 refill 1) [facility] 36on 06-15-2025 36 Could we please orde cynthia a thoracic MRI based radiologist recommendation. When she has that obtained, we can do a telephone visit to review her MRI results. [facility] 36on 05-06-2025 36 Name of Caller: Leanna Contact Reason for Appointment: Daughter will call back to schedule the 05/06/25 missed appointment when she is able to check transportation for Blenda. Please be advised. Office Name: [facility] Neuro [facility] MR/BMS.BP 05-06-2025 MR/BMS.BP [address], [place] [address] OFFICE VISIT Date of Service: 05/06/25 MR#: [id number] Acct: [id number] Name: KAMILA JOSEPH Rep #: [id number] : 1955 Provider: Dr. Andrew Cobian se, DO Age/Sex: 69/F [place] [facility] [place]: Signed Intake Vital Signs 03/09/25 13:38 05/06/25 09:32 Height 5 ft 2 in 5 ft 2 in Weight: 184 lb BMI 33.6 BP 118/71 132/81 H Blood Pressure Location Lt brachial Lt brachial Position Sitting Sitting Respiration 16 16 Pulse 66 69 Pulse Source Monitor Monitor BP Intake Visit Reasons: 2 M FU Accompanied by: family Allergies cariprazine (From Vraylar) Allergy (Mild, Verified 05/06/25 09:34) DIZZINESS Medications ???Medication ???Instructions ???Recorded ???Confirmed ???Type folic acid 1 mg tablet 1 mg PO DAILY SUPPLEMENT 02/23/19 05/06/25 History simvastatin 40 mg tablet 40 mg PO QHS CHOLESTEROL 02/23/19 05/06/25 History aspirin 81 mg tablet,delayed 81 mg PO DAILY 01/03/23 05/06/25 H istory release metoprolol succinate 25 mg See Rx Instructions .Route 3 05/06/25 Rx tablet,extended release 24 hr .COMPLEX #90 tabs diphenhydramine HCl 25 mg tablet 25 mg PO QHS PRN 12/04/23 05/06/25 History (Benadryl Allergy) valbenazine 80 mg capsule mg PO 12/04/23 05/06/25 History (Ingrezza) lisinopril 2.5 mg tablet 2.5 mg PO DAILY #90 TABLETS 05/06/25 Rx buspirone 15 mg tablet 15 mg PO BID 90 days #180 tabs 05/06/25 Rx diclofenac sodium 75 mg mg PO 12/08/24 05/06/25 History tablet,delayed release fluoxetine 40 mg capsule 40 mg PO DAILY 90 days #90 caps 05/06/25 Rx clonazepam 0.5 mg tablet 0.25 mg (1/2 x 0.5 mg) PO BID 30 0 02/04/25 05/06/25 Rx days #30 tabs amantadine HCl 100 mg tablet 100 mg PO BID 03/09/25 05/06/25 Hi story fluoxetine 20 mg capsule 20 mg PO QDAY #30 caps 04/02/25 Rx Have you fallen in the past year?: Yes (Broken elbow torn rotator cuff) PENDING SALE TO [facility] Medical History (Updated 06/09/24 @ 12:[address] nAdrew Argueta, ) MDD (major depressive disorder) Major depressive disorder in full remission History of uterine ablation Atrial tachycardia TERESA (obstructive sleep apnea) Depression Essential hypertension Cardiomyopathy Congestive heart failure Infection due to ESBL-producing Escherichia coli Lower back pain Surgical History History of tonsillectomy History of carpal tunnel surgery Family History Mother Heart disease Father Heart disease Brother Heart disease Social History Smoking Status: Never smoker alcohol intake: never substance use type: does not use caffeine: Yes (occasionally) HPI History of Present Illness History provided by: patient HPI: Kamila Joseph is a 69 year old female who presents today for follow up evaluation. Patient reports to having been driving recently. Has been tanning in a tanning bed recently. Feels the best she has in a prolonged period and spending time with grandchildren. Sleep has been broken, waking up frequently in the middle of the night. Has not been wearing her CPAP, and did sleep better when she had. Not taking any naps. Has been responding well to Ingrezza. Predominately having symptoms around night. Denies SI/HI or AVH. Appetite and weight remains stable. Has had some intermittent dry mouth. Review of Systems Constitutional Denies: fever(s), chills, change in weight or fatigue Eyes Denies: change in vision or blurry vision Ears, Nose, Mouth, Throat Denies: throat pain, neck pain or change in hearing Cardiovascular Denies: chest pain, palpitations or dyspnea Respiratory Denies: dyspnea, cough or wheezing Gastrointestinal Denies: abdominal pain, nausea, vomiting, diarrhea or constipation Genitourinary Denies: dysuria or urinary frequency Musculoskeletal Denies: back pain, neck pain, joint pain or muscle weakness Integumentary/Breast Denies: rash or new lesions Neurological Reports: dizziness and involuntary movements (Intermittent); Denies: headache(s) or confusion Endocrine Reports: excessive sweating; Denies: fatigue Hematologic/Lymphatic Denies: easy bruising or easy bleeding Allergic/Immunologic Denies: wheezing Exam Mental Status Exam - Psych Appearance casually dressed Attitude cooperative Activity/Motor Behavior appropriate eye contact and other (No significant abnormal involuntary movements noted today) Speech regular rate, regular volume, regular prosody and slurred (Very mildly slurred) Mood other (The best I have been ) Affect full range Thought Process linear, logical and coherent Thought C (more content not included)... [facility] 05-03-2025 36 Requested Prescriptions Signed Prescriptions Disp Refills valbenazine tosylate (Ingrezza) 40 MG capsule 30 capsule 3 Sig: Take 1 capsule (40 mg) by mouth daily. Authorizing Provider: VIOLET CASTELLANOS [facility] 04-09-2025 36 Filled to requesting pharmacy on 12/23/2024 for 6-month supply. Should not be due for refill until June. [facility] 03-12-2025 36 Called and spoke luke Ram whom is the patient's daughter and POA. Notified I will send a prescription for Bactrim and a one-time dose of Diflucan into the pharmacy. Recommend follow-up in the office if symptoms are not improving. [facility] Progress Noteon 03-12-2025 Progress Note Called and spoke luke Ram whom is the patient's daughter and POA. Notified I will send a prescription for Bactrim and a one-time dose of Diflucan into the pharmacy. Recommend follow-up in the office if symptoms are not improving. [facility] MR/BMS.BPon 03-09-2025 MR/BMS.BP [address], [address] [place] [address] OFFICE VISIT Date of Service: 03/09/25 MR#: [id number] Acct: [id number] Name: KAMILA JOSEPH Rep #: [id number] : 1955 Provider: Dr. Andrew Cobian se, DO Age/Sex: 69/F [place] [facility] [place] Status: Signed Intake Vital Signs 12/08/24 13:00 03/09/25 13:38 Height 5 ft 2 in 5 ft 2 in Weight: 182 lb BMI 33.3 BP 124/84 H 118/71 Blood Pressure Location Lt brachial Lt brachial Position Sitting Sitting Respiration 16 16 Pulse 77 66 Pulse Source Monitor Monitor BP Intake Visit Reasons: 3 M FU Accompanied by: Self Allergies cariprazine (From [facility]) Allergy (Mild, Verified 03/09/25 13:40) DIZZINESS Medications ???Medication ???Instructions ???Recorded ???Confirmed ???Type folic acid 1 mg tablet 1 mg PO DAILY SUPPLEMENT 02/23/19 03/09/25 History simvastatin 40 mg tablet 40 mg PO QHS CHOLESTEROL 02/23/19 03/09/25 History aspirin 81 mg tablet,delayed 81 mg PO DAILY 01/03/23 03/09/25 H istory release metoprolol succinate 25 mg See Rx Instructions .Route 3 03/09/25 Rx tablet,extended release 24 hr .COMPLEX #90 tabs diphenhydramine HCl 25 mg tablet 25 mg PO QHS PRN 12/04/23 03/09/25 History (Benadryl Allergy) valbenazine 80 mg capsule mg PO 12/04/23 03/09/25 History (Ingrezza) lisinopril 2.5 mg tablet 2.5 mg PO DAILY #90 TABLETS 03/09/25 Rx buspirone 15 mg tablet 15 mg PO BID 90 days #180 tabs 03/09/25 Rx diclofenac sodium 75 mg mg PO 12/08/24 03/09/25 History tablet,delayed release fluoxetine 40 mg capsule 40 mg PO DAILY 90 days #90 caps 03/09/25 Rx clonazepam 0.5 mg tablet 0.25 mg (1/2 x 0.5 mg) PO BID 30 0 02/04/25 03/09/25 Rx days #30 tabs amantadine HCl 100 mg tablet 100 mg PO BID 03/09/25 03/09/25 Hi story Have you fallen in the past year?: Yes (Intermittent instability) PENDING SALE TO [facility] Medical History (Updated 06/09/24 @ 12:[address] Andrew Argueta, DO) MDD (major depressive disorder) Major depressive disorder in full remission History of uterine ablation Atrial tachycardia TERESA (obstructive sleep apnea) Depression Essential hypertension Cardiomyopathy Congestive heart failure Infection due to ESBL-producing Escherichia coli Lower back pain Surgical History History of tonsillectomy History of carpal tunnel surgery Family History Mother Heart disease Father Heart disease Brother Heart disease Social History Smoking Status: Never smoker alcohol intake: never substance use type: does not use caffeine: Yes (occasionally) HPI History of Present Illness History provided by: patient HPI: Kamila Joseph is a 69 year old female who presents today for follow up evaluation. Patient reports to feeling anxious much of the time. Has been feeling this more frequently. Daughter has been here since November but is going back to [place] next week. Is feeling very bored. Is currently not allowed to drive and her balance is somewhat improved. Orofacial movements are largely well controlled. 40 mg of Ingrezza has been working largely well. Sleep has been fair. Has been getting up frequently in the night. Is not feeling well in regards to energy. Appetite has been largely good. Denies SI/HI or AVH. Will be babysitting about 2-3 days a week of her grandson. Review of Systems Constitutional Denies: fever(s), chills, change in weight or fatigue Eyes Denies: change in vision or blurry vision Ears, Nose, Mouth, Throat Denies: throat pain, neck pain or change in hearing Cardiovascular Denies: chest pain, palpitations or dyspnea Respiratory Denies: dyspnea, cough or wheezing Gastrointestinal Denies: abdominal pain, nausea, vomiting, diarrhea or constipation Genitourinary Denies: dysuria or urinary frequency Musculoskeletal Denies: back pain, neck pain, joint pain or muscle weakness Integumentary/Breast Denies: rash or new lesions Neurological Reports: dizziness and involuntary movements (significantly improved); Denies: headache(s) or confusion Endocrine Reports: excessive sweating; Denies: fatigue Hematologic/Lymphatic Denies: easy bruising or easy bleeding Allergic/Immunologic Denies: wheezing Exam Mental Status Exam - Psych Appearance casually dressed Attitude cooperative Activity/Motor Behavior appropriate eye contact and other (No significant abnormal involuntary movements noted today) Speech regular rate, regular volume, regular prosody and slurred (Very mildly slurred) Mood anxious Affect restricted (Slightly more restricted than previous) Thought Process linear, logical and coherent (more content not included)... [facility] 36on 03-08-2025 36 Reviewed chart. Refi ll appropriate. RX sent. [facility] 36 Prescription Request : FOLIC ACID 1 MG TABLET Last medication check: 12/08/24 Last physical exam: 12/08/24 Next scheduled appointment: 03/08/25 Last date of refill on this medication 09/03/24 ( qty 90 refill 1) [facility] Office Visiton 03-08-2025 Follow-up visit [id number] Ras Joseph 1955 F Date Provider Department Center 03/08/2025 [id number] [facility] [place] [facility] Family History Problem Relation Age of Onset Substance Abuse Mother Heart disease Mother Heart disease Father Prostate cancer Father Breast cancer Mother's Sister Family Status - Relation Status Age at Mother Alive Father Mother's Sister Level of Service:08478 OR OFFICE/OUTPATIENT ESTABLISHED MOD MDM 30 MIN Reason for Visit and Comments: Medication Check [[id number]] Health Maintenance [872] - ?Derm Melanoma Skin Check-NEEDS COMPLETED ?Depression Monitoring-completed [facility] Progress Noteon 03-08-2025 Progress Note Stable. Followed by cardiology continue current medications [facility] Progress Note Controlled. Blood pressure 117/72, continue metoprolol 25 mg daily and lisinopril 2.5 mg daily [facility] Progress Note Follow-up with psychiatry as directed [facility] Progress Note Patient wearing CPAP nightly. Reports good sleep and feels well rested during the daytime. [facility] Progress Note Stable. Continue to follow-up with psychiatry and neurology [facility] Progress Note Improving. Continue follow-up with neurology [facility] Progress Note Patient was identifi ed by name and Date of . Health Maintenance Due Topic Derm Melanoma Skin Check-NEEDS COMPLETED Depression Monitoring-completed SDOH/ELIZABETH/PHQ-need completed-sent via [facility] AWV/fasting labs---needs scheduled for 11/2025 [facility] Progress Note 03/08/2025 Kamila Joseph (: 1955) is a 69 y.o. female , Established patient, here for evaluation of the following chief complaint(s): Medication Check and Health Maintenance (/? Derm Melanoma Skin Check-NEEDS COMPLETED/? Depression Monitoring-completed// ) ASSESSMENT/PLAN: 1. TERESA on CPAP Assessment & Plan: Patient wearing CPAP nightly. Reports good sleep and feels well rested during the daytime. 2. Anxiety Assessment & Plan: Follow-up with psychiatry as directed 3. Congestive heart failure, unspecified HF chronicity, unspecified heart failure type (HCC) Assessment & Plan: Stable. Followed by cardiology continue current medications 4. Tardive dyskinesia Assessment & Plan: Improving. Continue follow-up with neurology 5. Mild dementia without behavioral disturbance, psychotic disturbance, mood disturbance, or anxiety, unspecified dementia type (HCC) Assessment & Plan: Stable. Continue to follow-up with psychiatry and neurology 6. Essential hypertension Assessment & Plan: Controlled. Blood pressure 117/72, continue metoprolol 25 mg daily and lisinopril 2.5 mg daily Follow up for with primary care provider as scheduled. SUBJECTIVE/OBJECTIVE: HPI - Kamila Joseph (: 1955) is a 69 y.o. female , Established patient, here for the evaluation of the following chief complaint(s): Medication Check and Health Maintenance (/? Derm Melanoma Skin Check-NEEDS COMPLETED/? Depression Monitoring-completed// ) Patient presents for med check. Reports overall she is doing well and her gait has gotten a lot steadier over the past couple months after decreasing the Ingrezza with neurology for her movement disorder. Reports she still has a lot of mouth movement but overall is greatly improved. Sees neurology in April. - reports a fall going up the steps over the weekend, denies any injuries. Depression anxiety- Psychiatry- sees tomorrow, Dr. Argueta-denies any suicidal or homicidal ideation. Does report her anxiety can be pretty bad. Continues to take Klonopin twice daily and BuSpar, fluoxetine. TERESA-wearing CPAP at night Heart failure-has been stable denies any chest pain or shortness of breath. She does see cardiology Hypertension-blood pressure has been good Current Medications[1] Review of Systems Constitutional: Negative. HENT: Negative. Respiratory: Negative. Cardiovascular: Negative. Gastrointestinal: Negative. Genitourinary: Negative for difficulty urinating. Musculoskeletal: Positive for arthralgias. Neurological: Positive for light-headedness (occasional). Negative for headaches. Psychiatric/Behavioral : Positive for decreased concentration and sleep disturbance. Negative for behavioral problems, dysphoric mood, self-injury and suicidal ideas. The patient is nervous/anxious. Vitals: 03/08/25 1001 BP: 117/72 Pulse: 82 Resp: 18 Temp: 37.2 ?C (98.9 ?F) TempSrc: Infrared SpO2: 96% Weight: 182 lb 9.6 oz (82.8 kg) Physical Exam Vitals reviewed. Constitutional: General: She is not in acute distress. Appearance: Normal appearance. She is not ill-appearing. HENT: Head: Normocephalic and atraumatic. Mouth/Throat: Mouth: Mucous membranes are moist. Pharynx: Oropharynx is clear. No posterior oropharyngeal erythema. Eyes: Conjunctiva/sclera: Conjunctivae normal. Neck: Vascular: No carotid bruit. Cardiovascular: Rate and Rhythm: Normal rate and regular rhythm. Pulses: Normal pulses. Heart sounds: Normal heart sounds. Pulmonary: Effort: Pulmonary effort is normal. Breath sounds: Normal breath sounds. Musculoskeletal: Right lower leg: No edema. Left lower leg: No edema. Comments: Gait steady, able to get on and off the exam table without assistance Lymphadenopathy: Cervical: No cervical adenopathy. Neurological: Mental Status: She is alert and oriented to person, place, and time. Psychiatric: Mood and Affect: Mood normal. Behavior: Behavior normal. Thought Content: Thought content normal. An electronic signature was used to authenticate this note. Adriane Navarrete Magdaleno, PERSONNEL GENERALIST MANAGER - SOIL FERTILITY EXTENSION SPECIALIST 03/08/2025 4:54 PM [1] Current Outpatient Medications Medication Sig Dispense Refill amantadine (Symmetrel) 100 MG tablet Take 1 tablet (100 mg) by mouth 2 times daily. 180 tablet 3 aspirin 81 MG EC tablet Take 81 mg by mouth daily. busPIRone (Buspar) 15 MG tablet TAKE 1 TABLET BY MOUTH TWICE A DAY 180 tablet 1 Calcium Carb-Cholecalciferol 600-5 MG-MCG tablet Take 2 tablets by mouth daily. 60 tablet 5 clonazePAM (KlonoPIN) 0.5 MG tablet Take 0.5 tablets (0.25 mg) by mouth 2 times daily. 30 tablet 0 diclofenac (Voltaren) 75 MG EC tablet TAKE 1 TABLET BY MOUTH TWICE A DAY DO NOT CRUSH, CHEW OR SPLIT 60 tablet 0 diphenhydrAMINE (BENADryl) 25 MG tablet Take by mouth. esomeprazole (NexIUM) [address] capsule Take 20 mg by mouth every morning (before breakfast). Do not open capsule. FLUoxetine (PROzac) 40 MG cap (more content not included)... [facility] 36on 03-05-2025 36 Leanna notified. No further action needed. Closing encounter. [facility] 36 Requested Prescriptions Signed Prescriptions Disp Refills amantadine (Symmetrel) 100 MG tablet 180 tablet 3 Sig: Take 1 tablet (100 mg) by mouth 2 times daily. Authorizing Provider: VIOLET CASTELLANOS [facility] 36 Name of caller: Leanna Contact phone number: [phone] Relationship to Patient: family member daughter Provider: Dr Miranda Practice: Neurology Chief Complaint/Reason for Call: Leanna called stating that she called [facility] for a refill on patients amantadine (Symmetrel) 100 MG tablet and was told that medication had been discontinued. Script was sent to the [facility] and Leanna stated [facility] should have gone to the [facility] on file. Please advise. Best time of day caller can be reached: Any Patient advised that office/PCP has 24-48 business hours to return their call: N/A [facility] 36on 03-02-2025 36 Prescription Request : METOPROLOL SUCC ER 25 MG TAB Last medication check: 12/08/24 Last physical exam: 12/08/24 Next scheduled appointment: 03/08/25 Last date of refill on this medication 09/07/24 ( qty 90 refill 1) [facility] 36on 02-10-2025 36 Called and spoke luke Ram, patient's POA. Informed her of normal mammogram results [facility] 36 ----- Message from SOO Grant CNP sent at 02/10/2025 1:50 PM EDT ----- Mammogram - negative Recommend routine screening mammogram bilateral in 1 year [facility] DBT Breast - left diagnostic on 02-10-2025 No mammographic evidence of malignancy in the left breast. Markings on images: BB's = Nipples; skin lesions Open makah = Palpable Line = Scar ASSESSMENT: Category 1 Negative RECOMMENDATION: Routine screening mammogram in 1 year. Bilateral CANCER RISK ASSESSMENT: This risk assessment is based on patient provided information collected in a risk survey taken at the time of this examination. LIFETIME BREAST CANCER RISK: Lisa 8: 6.94% - If greater than or equal to 20%, consider annual mammogram and annual screening Breast MRI or follow up in high risk clinic. Is the patient at elevated risk based on the HBOC criteria? No (Hereditary Breast and Ovarian Cancer) - If Yes, consider genetic counseling and testing with high risk follow up Is the patient at elevated risk based on the Odonnell Syndrome criteria? No - If Yes, consider genetic counseling and testing with high risk follow up. Report Dictated on Electronically Signed By: Oscar Elizabeth MD Electronically Signed Date/Time: 02/10/2025 1:22 PM EDT [facility] [employer] Patient Name: KAMILA JOSEPH : 1955 Exam Date/Time: 02/10/2025 12:58 Procedure: BI MAMMOGRAM DIAGNOSTIC TOMOSYNTHESIS LEFT Ordering Provider: HUBBARD REBECCA Reason For Exam: This exam was performed at [place] [address] [address] [place] [address] PATIENT CANCER HISTORY: No Personal History of Cancer FAMILY CANCER HISTORY: Father Prostate Cancer Maternal Aunt Breast Cancer Prior study Comparisons: 2024; 2018 Image views: 2D CC and MLO views were acquired. 3D CC and MLO views were acquired. Tissue Density: BIRADS B - There are scattered areas of fibroglandular density. Images were reviewed with CAD. Findings: The patient was recalled from screening for two left breast asymmetries. On today's additional views, the asymmetries in question dispersed and were consistent with stable overlapping fibroglandular tissues. No suspicious masses, architectural distortions, or suspiciously clustered microcalcifications were seen. [facility] Oscar Elizabeth MD - 02/10/2025 Patient Name: KAMILA JOSEPH : 1955 Exam Date/Time: 02/10/2025 12:58 Procedure: BI MAMMOGRAM DIAGNOSTIC TOMOSYNTHESIS LEFT Ordering Provider: HUBBARD REBECCA Reason For Exam: This exam was performed at [place] [address] [address] [place] [address] PATIENT CANCER HISTORY: No Personal History of Cancer FAMILY CANCER HISTORY: Father Prostate Cancer Maternal Aunt Breast Cancer Prior study Comparisons: 2024; 2018 Image views: 2D CC and MLO views were acquired. 3D CC and MLO views were acquired. Tissue Density: BIRADS B - There are scattered areas of fibroglandular density. Images were reviewed with CAD. Findings: The patient was recalled from screening for two left breast asymmetries. On today's additional views, the asymmetries in question dispersed and were consistent with stable overlapping fibroglandular tissues. No suspicious masses, architectural distortions, or suspiciously clustered microcalcifications were seen. IMPRESSION: No mammographic evidence of malignancy in the left breast. Markings on images: BB's = Nipples; skin lesions Open makah = Palpable Line = Scar ASSESSMENT: Category 1 Negative RECOMMENDATION: Routine screening mammogram in 1 year. Bilateral CANCER RISK ASSESSMENT: This risk assessment is based on patient provided information collected in a risk survey taken at the time of this examination. LIFETIME BREAST CANCER RISK: Lisa 8: 6.94% - If greater than or equal to 20%, consider annual mammogram and annual screening Breast MRI or follow up in high risk clinic. Is the patient at elevated risk based on the HBOC criteria? No (Hereditary Breast and Ovarian Cancer) - If Yes, consider genetic counseling and testing with high risk follow up Is the patient at elevated risk based on the Odonnell Syndrome criteria? No - If Yes, consider genetic counseling and testing with high risk follow up. Report Dictated on Electronically Signed By: Oscar Elizabeth MD Electronically Signed Date/Time: 02/10/2025 1:22 PM EDT [facility] [employer] Radiology Study observation (narrative) [facility] DBT Breast - left diagnostic Ordered By: Oscar Elizabeth on 02-10-2025 [employer] Work Phone: Office Visiton 02-10-2025 Follow-up visit [id number] Ras Joseph 1955 F Date Provider Department Center 02/10/2025 [id number] [facility] NE[facility] P None Family History Problem Relation Age of Onset Substance Abuse Mother Heart disease Mother Heart disease Father Prostate cancer Father Breast cancer Mother's Sister Family Status - Relation Status Age at Mother Alive Father Mother's Sister Level of Service:30798 OR OFFICE/OUTPATIENT ESTABLISHED LOW MDM 20 MIN Reason for Visit and Comments: Follow-up [466392] - Neuroleptic - induced tardive dyskinesia Normal [facility] [employer] [facility] Progress Noteon 02-10-2025 Progress Note Department of Neurological Sciences Visit Note CHIEF COMPLAINT: Chief Complaint Patient presents with Follow-up Neuroleptic - induced tardive dyskinesia Main diagnoses: Tardive dyskinesias HISTORY OF PRESENT ILLNESS: The patient is a 69 y.o. female today presents to the Neurology clinic with history of tremor that the dyskinesias, today patient presented to the neurology clinic accompanied by her granddaughter relation of her kidney issues. Patient developed severe diabetic dyskinesia a year ago. Patient was started on Ingrezza 80 mg p.o. daily sequently was decreased to 40 mg p.o. daily. 3 to 4 months ago patient was noticed that she was developing rigidity decreased facial expression and problems with gait. 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 Then, we tried to switch patient to Ingrezza 40 mg every other day but then patient oral dyskinesia work got significantly worse. Addition patient felt and broke her right arm. A month ago patient was reevaluated in the neurology office and she was put back on Ingrezza 40 mg p.o. daily and in addition patient was started onamantadine 100 mg p.o. nightly for a month and then she has increase it to twice a day. Patient denied any side effect from medication and also her parkinsonian symptoms have improved significantly. Patient walk a good pace. Her rigidity have improved she denied any other side effects from medication. Her oral ulcers have disappeared. Her balance and function improved significantly. Extrapyramidal syndrome. Secundary diagnoses: Anxiety, osteoarthritis Medications: Current Outpatient Medications Medication Sig Dispense Refill Ascorbic Acid (vitamin C) 1000 MG tablet Take 1,000 mg by mouth daily. aspirin 81 MG EC tablet Take 81 mg by mouth daily. busPIRone (Buspar) 15 MG tablet TAKE 1 TABLET BY MOUTH TWICE A DAY 180 tablet 1 Calcium Carb-Cholecalciferol 600-5 MG-MCG tablet Take 2 tablets by mouth daily. 60 tablet 5 clonazePAM (KlonoPIN) 0.5 MG tablet Take 0.5 tablets (0.25 mg) by mouth 2 times daily. 30 tablet 0 diclofenac (Voltaren) 75 MG EC tablet TAKE 1 TABLET BY MOUTH TWICE A DAY DO NOT CRUSH, CHEW OR SPLIT 60 tablet 0 diphenhydrAMINE (BENADryl) 25 MG tablet Take by mouth. FLUoxetine (PROzac) 40 MG capsule Take 40 mg by mouth daily. folic acid (Folvite) 1 MG tablet TAKE 1 TABLET BY MOUTH EVERY DAY 90 tablet 1 lisinopril 2.5 MG tablet Take 2.5 mg by mouth daily. metoprolol succinate XL (Toprol-XL) 25 MG 24 hr tablet TAKE 1 TABLET BY MOUTH EVERY DAY 90 tablet 1 Multiple Vitamin (multivitamin) tablet Take 1 tablet by mouth daily. simvastatin (Zocor) 40 MG tablet TAKE 1 TABLET BY MOUTH EVERY DAY NIGHTLY 90 tablet 1 valbenazine tosylate (Ingrezza) 40 MG capsule Take 1 capsule (40 mg) by mouth daily. 30 capsule 3 amantadine (Symmetrel) 100 MG tablet Take 1 tablet (100 mg) by mouth 2 times daily. 180 tablet 3 No current facility-administered medications for this visit. Allergies: Vraylar [cariprazine] Social History: Social History Socioeconomic History Marital status: Spouse name: Not on file Number of children: Not on file Years of education: Not on file Highest education level: Not on file Occupational History Not on file Tobacco Use Smoking status: Never Smokeless tobacco: Never Vaping Use Vaping status: Never Used Substance and Sexual Activity Alcohol use: No Drug use: No Sexual activity: Defer Other Topics Concern Not on file Social History Narrative Not on file Social Drivers of Health Financial Resource Strain: Low Risk (12/30/2023) Overall Financial Resource Strain (CARDIA) Difficulty of Paying Living Expenses: Not hard at all Food Insecurity: No Food Insecurity (12/30/2023) Hunger Vital Sign Worried About Running Out of Food in the Last Year: Never true Ran Out of Food in the Last Year: Never true Transportation Needs: No Transportation Needs (12/30/2023) PRAPARE - Transportation Lack of Transportation (Medical): No Lack of Transportation (Non-Medical): No Physical Activity: Inactive (12/30/2023) Exercise Vital Sign Days of Exercise per Week: 0 days Minutes of Exercise per Session: 0 min Stress: Not on file Social Connections: Not on file Intimate Partner Violence: Not on file Housing Stability: Low Risk (12/30/2023) Housing Stability Vital Sign Unable to Pay for Housing in the Last Year: No Number of Places Lived in the Last Year: 1 Unstable Housing in the Last Year: No Family History: Family History Problem Relation Name Age of Onset Substance Abuse Mother Heart disease Mother Heart disease Father Prostate cancer Father Breast cancer Mother's Sister REVIEW OF SYSTEMS: Review of Systems onstitutional: Positive for activity change. HENT: Positive for rhinorrhea. Eyes: Negative. Respiratory: Negative. Cardiovascular: Negative. Gastrointestinal: Negativ (more content not included)... Normal [facility] 36on 01-06-2025 36 Requested Prescriptions Signed Prescriptions Disp Refills valbenazine tosylate (Ingrezza) 40 MG capsule 30 capsule 3 Sig: Take 1 capsule (40 mg) by mouth daily. Authorizing Provider: VIOLET CASTELLANOS [facility] 36on 01-04-2025 36 We would be happy to refill this medication; however, this will be the last time we will refill the medication as we are seeing them on a PRN basis and not actively planning surgery at this time. We will defer to their PCP for further refills and medication management. Please review risks as seen below. Thanks. The risks and appropriate dosing of NSAIDs (ie Meloxicam, Naproxen, Ibuprofen, etc) were discussed with the patient in detail. These include but are not limited to cardiovascular risk, renal toxicity, stomach irritation/refulx and/or peptic ulcer disease. If any of these side effects are experienced I advised the patient to discontinue the medication and contact both myself and their primary care physician. [facility] 36on 01-01-2025 36 Rx sent. Follow up a s scheduled. [facility] 36 Prescription Request : Last medication check: 12-23-24 Last physical exam: 2=18-25 Next scheduled appointment: 03-08-25 Last date of refill on this medication 07-06-24 [facility] Office Visiton 01-01-2025 Follow-up visit [id number] Ras Joseph 1955 F Date Provider Department Center 01/01/2025 [id number] [facility] P None Family History Problem Relation Age of Onset Substance Abuse Mother Heart disease Mother Heart disease Father Prostate cancer Father Breast cancer Mother's Sister Family Status - Relation Status Age at Mother Alive Father Mother's Sister Level of Service:20973 OR OFFICE/OUTPATIENT ESTABLISHED MOD MDM 30 MIN Reason for Visit and Comments: Follow-up [[id number]] - 1 month follow up [facility] Progress Noteon 01-01-2025 Progress Note Department of Neurological Sciences Visit Note CHIEF COMPLAINT: Chief Complaint Patient presents with Follow-up 1 month follow up Main diagnoses: Tardative dyskinesia HISTORY OF PRESENT ILLNESS: The patient is a 69 y.o. female today presents to the Neurology clinic with history of Tardative dyskinesia. She was evaluated on December 07, 2024 because increased rigidity and worsening of her oral dyskinesia.. 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 The doses of Ingrezza was decreased to 80 mg p.o. daily to 40 mg p.o. every other day. Patient reports that after 3 days her oral dyskinesias returned. Then patient develop again also seen her tongue and cheeks. Patient increase the doses back to 40 mg p.o. daily and apparently she is doing well. Still have some dysarthria as well as dyskinesis. Postural reflexes are impaired. Patient fell a month ago and fractured her elbow. Now patient is using a cane. Patient denied any new neurological problems. Secundary diagnoses: Sciatic depression Medications: Current Outpatient Medications Medication Sig Dispense Refill Ascorbic Acid (vitamin C) 1000 MG tablet Take 1,000 mg by mouth daily. aspirin 81 MG EC tablet Take 81 mg by mouth daily. busPIRone (Buspar) 15 MG tablet TAKE 1 TABLET BY MOUTH TWICE A DAY 180 tablet 1 Calcium Carb-Cholecalciferol 600-5 MG-MCG tablet Take 2 tablets by mouth daily. 60 tablet 5 clonazePAM (KlonoPIN) 0.5 MG tablet Take 0.5 tablets (0.25 mg) by mouth 2 times daily. 30 tablet 0 diclofenac (Voltaren) 75 MG EC tablet TAKE 1 TABLET BY MOUTH TWICE A DAY DO NOT CRUSH, CHEW OR SPLIT 60 tablet 0 diphenhydrAMINE (BENADryl) 25 MG tablet Take by mouth. FLUoxetine (PROzac) 40 MG capsule Take 40 mg by mouth daily. folic acid (Folvite) 1 MG tablet TAKE 1 TABLET BY MOUTH EVERY DAY 90 tablet 1 lisinopril 2.5 MG tablet Take 2.5 mg by mouth daily. metoprolol succinate XL (Toprol-XL) 25 MG 24 hr tablet TAKE 1 TABLET BY MOUTH EVERY DAY 90 tablet 1 Multiple Vitamin (multivitamin) tablet Take 1 tablet by mouth daily. simvastatin (Zocor) 40 MG tablet TAKE 1 TABLET BY MOUTH EVERY DAY NIGHTLY 90 tablet 1 valbenazine tosylate (Ingrezza) 40 MG capsule Take 1 capsule (40 mg) by mouth daily. 30 capsule 3 amantadine (Symmetrel) 100 MG tablet Take 1 tablet (100 mg) by mouth 2 times daily. 60 tablet 2 No current facility-administered medications for this visit. Allergies: Vraylar [cariprazine] Social History: Social History Socioeconomic History Marital status: Spouse name: Not on file Number of children: Not on file Years of education: Not on file Highest education level: Not on file Occupational History Not on file Tobacco Use Smoking status: Never Smokeless tobacco: Never Vaping Use Vaping status: Never Used Substance and Sexual Activity Alcohol use: No Drug use: No Sexual activity: Defer Other Topics Concern Not on file Social History Narrative Not on file Social Drivers of Health Financial Resource Strain: Low Risk (12/30/2023) Overall Financial Resource Strain (CARDIA) Difficulty of Paying Living Expenses: Not hard at all Food Insecurity: No Food Insecurity (12/30/2023) Hunger Vital Sign Worried About Running Out of Food in the Last Year: Never true Ran Out of Food in the Last Year: Never true Transportation Needs: No Transportation Needs (12/30/2023) PRAPARE - Transportation Lack of Transportation (Medical): No Lack of Transportation (Non-Medical): No Physical Activity: Inactive (12/30/2023) Exercise Vital Sign Days of Exercise per Week: 0 days Minutes of Exercise per Session: 0 min Stress: Not on file Social Connections: Not on file Intimate Partner Violence: Not on file Housing Stability: Low Risk (12/30/2023) Housing Stability Vital Sign Unable to Pay for Housing in the Last Year: No Number of Places Lived in the Last Year: 1 Unstable Housing in the Last Year: No Family History: Family History Problem Relation Name Age of Onset Substance Abuse Mother Heart disease Mother Heart disease Father Prostate cancer Father Breast cancer Mother's Sister REVIEW OF SYSTEMS: Review of Systems onstitutional: Positive for activity change. HENT: Positive for rhinorrhea. Eyes: Negative. Respiratory: Negative. Cardiovascular: Negative. Gastrointestinal: Negative. Endocrine: Negative. Genitourinary: Negative. Musculoskeletal: Positive for arthralgias and joint swelling. Skin: Negative. Allergic/Immunologic: Negative. Neurological: Positive for tremors, speech difficulty and weakness. Hematological: Bruises/bleeds easily. Psychiatric/Behavioral : Positive for confusion and decreased concentration. The patient is nervous/anxious. PHYSICAL EXAM: Vitals: BP 120/68 Ht 5' 2 (1.575 m) Wt 182 lb (82.6 kg) BMI 33.29 kg/m? Physical Exam Constitutional: Appearance: Normal appearance. HENT: Head: Normocephalic and (more content not included)... Normal [facility] 36on 12-29-2024 36 Spoke to patients daughter Leanna, who is listed as a contact we can speak to. Agreeable to further testing. Normal [facility] 36 ----- Message from SOO Grant CNP sent at 12/28/2024 5:01 PM EDT ----- Mammogram- asymmetry noted in the left breast, recommend diagnostic mammogram left with left breast ultrasound to further evaluate. Normal [facility] DBT Breast - bilateral scree ningOrdered By: Jackeline Bolton on 12-28-2024 Interpretation and review of laboratory results Abnormal [facility] [employer] Work Phone: [facility] [employer] Phone: DBT Breast - bilateral scree ningon 12-28-2024 Left breast asymmetries. ASSESSMENT: Category 0 Incomplete: need additional imaging evaluation RECOMMENDATION: Follow-up diagnostic mammogram Left And breast ultrasound if necessary. CANCER RISK ASSESSMENT: This risk assessment is based on patient provided information collected in a risk survey taken at the time of this examination. LIFETIME BREAST CANCER RISK: Lisa 8: 6.94% - If greater than or equal to 20%, consider annual mammogram and annual screening Breast MRI or follow up in high risk clinic. Is the patient at elevated risk based on the HBOC criteria? No (Hereditary Breast and Ovarian Cancer) - If Yes, consider genetic counseling and testing with high risk follow up Is the patient at elevated risk based on the Odonnell Syndrome criteria? No - If Yes, consider genetic counseling and testing with high risk follow up. Report Dictated on Electronically Signed By: Jackeline Bolton MD Electronically Signed Date/Time: 12/28/2024 4:22 PM EDT [facility] Patient Name: KAMILA JOSEPH : 1955 Exam Date/Time: 12/28/2024 14:17 Procedure: BI MAMMOGRAM SCREENING TOMOSYNTHESIS BILATERAL Ordering Provider: HUBBARD REBECCA Reason For Exam: This exam was performed at [facility] [address] [place] [address] PATIENT CANCER HISTORY: No Personal History of Cancer FAMILY CANCER HISTORY: Father Prostate Cancer Maternal Aunt Breast Cancer Image views: 2D Bilateral CC and MLO views were acquired. 3D Bilateral CC and MLO views were acquired. Images were reviewed with CAD. Markings on images: BB's = Nipples; skin lesions Open makah = Palpable Line = Scar COMPARISON: 10/31/2018, 01/23/2022 TISSUE DENSITY: BIRADS B - There are scattered areas of fibroglandular density. FINDINGS: There is an asymmetry in the superior mid depth of the left breast in the MLO view. There is an asymmetry central to the nipple in the anterior left breast in the MLO view. No spiculated masses, parenchymal distortion or suspicious calcifications are seen on the right. There is no skin thickening or nipple retraction. [facility] Jackeline Bolton MD - 12/28/2024 [facility] Name: KAMIL[facility] JOSEPH [facility] 1955 [id number] Exam Date/Time: 12/28/2024 14:17 Procedure: BI MAMMOGRAM SCREENING TOMOSYNTHESIS BILATERAL Ordering Provider: HUBBARD REBECCA Reason For Exam: This exam was performed at [facility] [address] [facility] [id number] PATIENT CANCER HISTORY: No Personal History of Cancer FAMILY CANCER HISTORY: Father Prostate Cancer Maternal Aunt Breast Cancer Image views: 2D Bilateral CC and MLO views were acquired. 3D Bilateral CC and MLO views were acquired. Images were reviewed with CAD. Markings on images: BB's = Nipples; skin lesions Open makah = Palpable Line = Scar COMPARISON: 10/31/2018, 01/23/2022 TISSUE DENSITY: BIRADS B - There are scattered areas of fibroglandular density. FINDINGS: There is an asymmetry in the superior mid depth of the left breast in the MLO view. There is an asymmetry central to the nipple in the anterior left breast in the MLO view. No spiculated masses, parenchymal distortion or suspicious calcifications are seen on the right. There is no skin thickening or nipple retraction. IMPRESSION: Left breast asymmetries. ASSESSMENT: Category 0 Incomplete: need additional imaging evaluation RECOMMENDATION: Follow-up diagnostic mammogram Left And breast ultrasound if necessary. CANCER RISK ASSESSMENT: This risk assessment is based on patient provided information collected in a risk survey taken at the time of this examination. LIFETIME BREAST CANCER RISK: Lisa 8: 6.94% - If greater than or equal to 20%, consider annual mammogram and annual screening Breast MRI or follow up in high risk clinic. Is the patient at elevated risk based on the HBOC criteria? No (Hereditary Breast and Ovarian Cancer) - If Yes, consider genetic counseling and testing with high risk follow up Is the patient at elevated risk based on the Odonnell Syndrome criteria? No - If Yes, consider genetic counseling and testing with high risk follow up. Report Dictated on Electronically Signed By: Jackeline Bolton MD Electronically Signed Date/Time: 12/28/2024 4:22 PM EDT [facility] Radiology Study observation (narrative) [facility] 12-23-2024 29 Addended by: ADRIANE HUBBARD on: 12/23/2024 09:42 AM Modules accepted: Orders Normal [facility] 12-23-2024 36 New rx sent [place] [address] Pharmacy does not stock the 500-5 mg-mcg tablets; they can provide 600-5 mg-mcg. Please advise, can we send new rx? [facility] 36 Name of caller: Ross davenport @ [facility] location Contact phone number: [phone] Relationship to Patient: Pharmacy Provider: Adriane Hubbard Practice: [place] [facility] Chief Complaint/Reason for Call: The following was called in to [facility] for patient 12/22/24: Calcium Carb-Cholecalciferol 500-5 MG-MCG tablet tablet [[id number]] Order Details Dose: 2 tablet Route: Oral Frequency: Daily Dispense Quantity: 60 tablet Refills: 5 Sig: Take 2 tablets by mouth daily. Pharmacy does not stock the 500-5 mg-mcg tablets; they can provide 600-5 mg-mcg. Please advise if okay to change. Best time of day caller can be reached: any Patient advised that office/PCP has 24-48 business hours to return their call: No [facility] 12-22-2024 36 Notified, Leanna is asking for you to send this to [facility] as a prescription since her insurance should pay for some of it if not all of it. ----- Message from SOO Grant CNP sent at 12/22/2024 7:16 AM EST ----- Dexa Scan shows osteopenia. Recommend calcium 1200 mg/day and vit d 2,000 international units daily, weight bearing exercise. Repeat dexa in 2-3 years Normal [facility] DEXA BONE DENSITY AXIAL SKEL ETONon 12-21-2024 DEXA BONE DENSITY AXIAL SKELETON Patient Name: KAMILA JOSEPH : 1955 Exam Date/Time: 12/21/2024 12:19 Procedure: DEXA BONE DENSITY AXIAL SKELETON Ordering Provider: HUBBARD REBECCA Reason For Exam: bone density screening DEXA BONE DENSITOMETRY: CLINICAL INDICATION: Osteoporosis screening COMPARISON: None TECHNIQUE: Quantitative bone mineral densitometry of the hip and lumbar spine was performed with a dual energy x-ray observed absorptiometry device - [employer]. Regions of interest were obtained through the left proximal femur and compared to the normal value of the young adult. Regions of interest were also obtained through the lumbar vertebrae with an average value determined and compared with the young adult. The measured bone density minus the bone density of the young normal reference divided by the reference standard deviation is expressed as the T score. Using the same formula adjusting the reference density and standard deviation for age and race determines the Z score. According to World Health Organization criteria: T-score of -1.0 or higher is normal. T-score between -1.0 and -2.5 is low bone density or osteopenia. T-score of -2.5 or lower is abnormally low, compatible with osteoporosis. T-score of -2.5 or less plus fragility fracture indicates severe osteoporosis. FINDINGS: Spine: L1-L4 Density 1.03 g/cm2. T-score: -0.1 Z-score: 1.8 Comparison from prior examination:N/A Hip: Femoral neck Density: 0.63 g/cm2. T-score: -2.0 Z-score: -0.3 Hip: Total hip Density: 0.98 g/cm2. T-score: 0.3 Z-score: 1.7 Comparison from prior examination:N/A IMPRESSION: Osteopenia FRACTURE RISK: The estimated 10 year risk for a major osteoporosis-related fracture is 17 % and risk for hip fracture is 2.5 % (FRAX web version 3.08). The current National Osteoporosis Foundation Guide recommends pharmacologic treatment for patients with FRAX 10-year risk scores of > 20% for major osteoporotic fracture or > 3% for hip fracture, to reduce their fracture risk. FOLLOW-UP RECOMMENDATIONS: Patients with osteoporosis or or at high risk for fracture should have follow-up bone density tests. For Medicare patients, routine testing is allowed every 2 years. Patients who have low bone mass (T score -2.0 to -2.49), who are currently on treatment for low bone mass, or having risk factors for accelerated bone loss (glucocorticoids, aromatase inhibitors, etc.), consider repeat DXA in 1-2 years. Patients with osteopenia and no risk factors may consider follow-up every 3-5 years. Report Dictated on Electronically Signed By: Sarabjit Starks MD Electronically Signed Date/Time: 12/21/2024 4:44 PM EST [facility] DXA Skeletal system.axial Vi ews for bone densityon 12-21-2024 Osteopenia FRACTURE RISK: The estimated 10 year risk for a major osteoporosis-related fracture is 17 % and risk for hip fracture is 2.5 % (FRAX web version 3.08). The current National Osteoporosis Foundation Guide recommends pharmacologic treatment for patients with FRAX 10-year risk scores of > 20% for major osteoporotic fracture or > 3% for hip fracture, to reduce their fracture risk. FOLLOW-UP RECOMMENDATIONS: Patients with osteoporosis or or at high risk for fracture should have follow-up bone density tests. For Medicare patients, routine testing is allowed every 2 years. Patients who have low bone mass (T score -2.0 to -2.49), who are currently on treatment for low bone mass, or having risk factors for accelerated bone loss (glucocorticoids, aromatase inhibitors, etc.), consider repeat DXA in 1-2 years. Patients with osteopenia and no risk factors may consider follow-up every 3-5 years. Report Dictated on Electronically Signed By: Sarabjit Starks MD Electronically Signed Date/Time: 12/21/2024 4:44 PM EST [facility] Patient Name: KAMILA JOSEPH : 1955 Exam Date/Time: 12/21/2024 12:19 Procedure: DEXA BONE DENSITY AXIAL SKELETON Ordering Provider: HUBBARD REBECCA Reason For Exam: bone density screening DEXA BONE DENSITOMETRY: CLINICAL INDICATION: Osteoporosis screening COMPARISON: None TECHNIQUE: Quantitative bone mineral densitometry of the hip and lumbar spine was performed with a dual energy x-ray observed absorptiometry device - [employer] W. Regions of interest were obtained through the left proximal femur and compared to the normal value of the young adult. Regions of interest were also obtained through the lumbar vertebrae with an average value determined and compared with the young adult. The measured bone density minus the bone density of the young normal reference divided by the reference standard deviation is expressed as the T score. Using the same formula adjusting the reference density and standard deviation for age and race determines the Z score. According to World Health Organization criteria: T-score of -1.0 or higher is normal. T-score between -1.0 and -2.5 is low bone density or osteopenia. T-score of -2.5 or lower is abnormally low, compatible with osteoporosis. T-score of -2.5 or less plus fragility fracture indicates severe osteoporosis. FINDINGS: Spine: L1-L4 Density 1.03 g/cm2. T-score: -0.1 Z-score: 1.8 Comparison from prior examination:N/A Hip: Femoral neck Density: 0.63 g/cm2. T-score: -2.0 Z-score: -0.3 Hip: Total hip Density: 0.98 g/cm2. T-score: 0.3 Z-score: 1.7 Comparison from prior examination:N/A [facility] RADIOLOG[facility] Sarabjit Starks MD - 12/21/2024 Patient Name: KAMILA JOSEPH : 1955 Exam Date/Time: 12/21/2024 12:19 Procedure: DEXA BONE DENSITY AXIAL SKELETON Ordering Provider: HUBBARD REBECCA Reason For Exam: bone density screening DEXA BONE DENSITOMETRY: CLINICAL INDICATION: Osteoporosis screening COMPARISON: None TECHNIQUE: Quantitative bone mineral densitometry of the hip and lumbar spine was performed with a dual energy x-ray observed absorptiometry device - [employer] W. Regions of interest were obtained through the left proximal femur and compared to the normal value of the young adult. Regions of interest were also obtained through the lumbar vertebrae with an average value determined and compared with the young adult. The measured bone density minus the bone density of the young normal reference divided by the reference standard deviation is expressed as the T score. Using the same formula adjusting the reference density and standard deviation for age and race determines the Z score. According to World Health Organization criteria: T-score of -1.0 or higher is normal. T-score between -1.0 and -2.5 is low bone density or osteopenia. T-score of -2.5 or lower is abnormally low, compatible with osteoporosis. T-score of -2.5 or less plus fragility fracture indicates severe osteoporosis. FINDINGS: Spine: L1-L4 Density 1.03 g/cm2. T-score: -0.1 Z-score: 1.8 Comparison from prior examination:N/A Hip: Femoral neck Density: 0.63 g/cm2. T-score: -2.0 Z-score: -0.3 Hip: Total hip Density: 0.98 g/cm2. T-score: 0.3 Z-score: 1.7 Comparison from prior examination:N/A IMPRESSION: Osteopenia FRACTURE RISK: The estimated 10 year risk for a major osteoporosis-related fracture is 17 % and risk for hip fracture is 2.5 % (FRAX web version 3.08). The current National Osteoporosis Foundation Guide recommends pharmacologic treatment for patients with FRAX 10-year risk scores of > 20% for major osteoporotic fracture or > 3% for hip fracture, to reduce their fracture risk. FOLLOW-UP RECOMMENDATIONS: Patients with osteoporosis or or at high risk for fracture should have follow-up bone density tests. For Medicare patients, routine testing is allowed every 2 years. Patients who have low bone mass (T score -2.0 to -2.49), who are currently on treatment for low bone mass, or having risk factors for accelerated bone loss (glucocorticoids, aromatase inhibitors, etc.), consider repeat DXA in 1-2 years. Patients with osteopenia and no risk factors may consider follow-up every 3-5 years. Report Dictated on Electronically Signed By: Sarabjit Starks MD Electronically Signed Date/Time: 12/21/2024 4:44 PM EST [facility] [employer] Radiology Study observation (narrative) [facility] DXA Skeletal system.axial Vi ews for bone densityOrdered By: Sarabjit Starks on 12-21-2024 [facility] [employer] Work Phone: US Heart TransthoracicOrdere d By: Gen West on 12-21-2024 Aortic Arch 3.2 cm [facility] [employer] Work Phone: Aortic Sinus Valsalva 3.3 cm Sum vt [employer] Work Phone: Aortic Sinus Valsalva Index 1.79 cm/m2 [facility] [employer] Work Phone: Aortic valve Orifice area by US 2.8 cm2 [facility] [employer] Work Phone: Ascending Aorta 3.6 cm [facility] Work Phone: Ascending Aorta Index 1.96 cm/m2 Sum v[facility] [employer] Work Phone: E/E' Lateral 14.5 [facility] [employer] Work Phone: E/E' Ratio (Averaged) 15.95 Sum [facility] Work Phone: E/E' Septal 17.4 [facility] [employer] Work Phone: Est. RA Pressure [address] [facility] Work Phone: Fractional Shortening 2D 29 % 28 - 44 % [facility] [employer] Work Phone: Global Longitudinal Strain -16.9 % [facility] [employer] Work Phone: Interpretation and review of laboratory results Abnormal [facility] [employer] Work Phone: IVC Diameter 1.5 cm [facility] [employer] Work Phone: IVSd 1.1 cm Abnormal 0.6 - 0.9 cm [facility] [employer] Work Phone: LA Diameter 4 cm [facility] [employer] Work Phone: LA Size Index 2.17 [facility] Work Phone: LA Volume 2C 38 mL 22 - 52 mL [facility] Work Phone: LA Volume 4C 45 mL 22 - 52 mL [facility] Work Phone: LA Volume A/L 44 mL [facility] Work Phone: LA Volume BP 42 mL 22 - 52 mL [facility] Work Phone: LA Volume Index 2C 21 mL/m2 16 - 34 mL/m2 [facility] Work Phone: LA Volume Index 4C 24 mL/m2 16 - 34 mL/m2 [facility] Work Phone: [phone] LA Volume Index A/L 24 mL/m2 16 - 34 mL/m2 [facility] Work Phone: [phone] LA Volume Index BP 23 ml/m2 16 - 34 ml/m2 [facility] Work Phone: [phone] Left ventricular Ejection fraction by US.2D+Calculated by biplane method of disks 65 % 55 - 100 % [facility] Work Phone: LV E' Lateral Velocity 6 cm/s [facility] Work Phone: LV E' Septal Velocity 5 cm/s [facility] Work Phone: LV EDV A2C 71 mL [facility] Work Phone: LV EDV A4C 78 mL [facility] Work Phone: LV EDV BP 78 mL 56 - 104 mL [facility] Work Phone: LV EDV Index A2C 39 mL/m2 [facility] Work Phone: LV EDV Index A4C 42 mL/m2 [facility] Work Phone: LV EDV Index BP 42 mL/m2 [facility] Work Phone: LV Ejection Fraction A2C 63 % [facility] Work Phone: LV Ejection Fraction A4C 63 % [facility] Work Phone: LV ESV A2C 27 mL [facility] Work Phone: LV ESV A4C 29 mL [facility] Work Phone: LV ESV BP 28 mL 19 - 49 mL [facility] Work Phone: LV ESV Index A2C 15 mL/m2 [facility] Work Phone: LV ESV Index A4C 16 mL/m2 [facility] Work Phone: LV ESV Index BP 15 mL/m2 [facility] Work Phone: LV Mass 2D 171.7 g Abnormal 67 - 162 g [facility] Work Phone: LV Mass 2D Index 93.3 g/m2 43 - 95 g/m2 [facility] Work Phone: LV RWT Ratio 0.63 [facility] Work Phone: LVIDd 4.1 cm 3.9 - 5.3 cm [facility] Work Phone: LVIDd Index 2.23 cm/m2 [facility] Work Phone: LVIDs 2.9 cm [facility] Work Phone: LVIDs Index 1.58 cm/m2 [facility] Work Phone: LVOT Cardiac Output 3.2 liter/minute [facility] Work Phone: LVOT Diameter 1.9 cm [facility] Work Phone: LVOT Mean Gradient 2 mmHg [facility] Work Phone: LVOT Peak Gradient 3 mmHg [facility] Work Phone: LVOT Peak Velocity 0.9 m/s [facility] Work Phone: LVOT Stroke Volume Index 32.8 mL/m2 [facility] Work Phone: LVOT SV 60.4 ml [facility] Work Phone: LVOT VTI 21.3 cm [facility] Work Phone: LVPWd 1.3 cm Abnormal 0.6 - 0.9 cm [facility] Work Phone: MV A Velocity 0.83 m/s [facility] Work Phone: MV E Velocity 0.87 m/s [facility] Work Phone: MV E Wave Deceleration Time 198.9 ms [facility] Work Phone: MV E/A 1.05 [facility] Work Phone: Pulmonary Artery EDP 2 mmHg [facility] Work Phone: RA Area 4C 27 mL [facility] Work Phone: RA Area 4C 25.9 mL [facility] Work Phone: RV Basal Dimension 4.1 cm [facility] Work Phone: RV Free Wall Peak S' 13 cm/s [facility] Work Phone: RV Longitudinal Dimension 6.5 cm [facility] Work Phone: RV Mid Dimension 3.7 cm [facility] Work Phone: Sinotubular Junction 2.2 cm [facility] Work Phone: TAPSE 1.7 cm 1.7 cm [facility] Work Phone: [facility] Work Phone: US Heart Transthoracicon Left Ventricle: Left ventricle size is normal. Mildly increased wall thickness. Mass index 2D is 93.3 g/m2. Normal left ventricular systolic function. EF by 2D Simpsons Biplane is 65%. Global longitudinal strain is -16.9%. Normal wall motion. Right Ventricle: Right ventricle size is normal. Normal systolic function. Pericardium: Evidence of prominent epicardial fat. Trivial pericardial effusion present. IVC/SVC: IVC diameter is normal and decreases greater than 50% during inspiration; therefore the estimated right atrial pressure is normal (~3 mmHg). No significant valvular abnormalities. Left Ventricle Left ventricle size is normal. Mildly increased wall thickness. Mass index 2D is 93.3 g/m2. Normal left ventricular systolic function. EF by 2D Simpsons Biplane is 65%. Global longitudinal strain is -16.9%. Normal wall motion. Elevated left ventricular filling pressure. Average E/e' ratio is 15.95. Right Ventricle Right ventricle size is normal. Normal systolic function. Left Atrium Left atrium size is normal. LA Vol Index A/L is 24 mL/m2. Normal flow patterns in the pulmonary veins. Right Atrium Right atrium size is normal. IVC/SVC IVC diameter is normal and decreases greater than 50% during inspiration; therefore the estimated right atrial pressure is normal (~3 mmHg). Mitral Valve Valve structure is normal. Annular calcification. Trace regurgitation. No stenosis noted. Tricuspid Valve Valve structure is normal. Trace regurgitation. Unable to assess RVSP due to insignificant tricuspid regurgitation. Aortic Valve Not well visualized. Trileaflet. No cusp thickening. No cusp calcification. Cusp sclerosis. No regurgitation. No stenosis. Pulmonic Valve Valve structure is normal. Trace regurgitation. Ascending Aorta Normal sized sinuses of Valsalva and ascending aorta. Pericardium Evidence of prominent epicardial fat. Trivial pericardial effusion present. Septum No interatrial shunt visualized on color Doppler. Study Details Image quality: fair. Additional technique includes myocardial strain. Heart rate: 59 bpm. Blood pressure: 149/76 mmHg. No contrast was given. Echo Additional Conclusions No significant valvular abnormalities. CV CPACS Office Visiton 12-10-2024 Follow-up visit [id number] Ras Joseph 1955 F Date Provider Department Center 12/10/2024 [id number] [place] None Family History Problem Relation Age of Onset Breast cancer Mother's Sister Substance Abuse Mother Heart disease Father Heart disease Mother Family Status - Relation Status Age at Mother's Sister Mother Alive Father Level of Service:77611 OR OFFICE/OUTPATIENT NEW MODERATE MDM 45 MINUTES Reason for Visit and Comments: New Patient [[id number]] - Right elbow injury Normal [facility] Progress Noteon 12-10-2024 Progress Note [facility] [address] [place] [address] [place] [address] Dept: [phone] Dept 12/10/2024 Chief Complaint Patient presents with New Patient Right elbow injury HISTORY Kamila Joseph is a 69 y.o. right handed female that presents for evaluation and treatment after sustaining an injury to her RIGHT elbow that occurred approximately 5 day(s) ago. Kamila is currently retired. Mechanism of injury - tripped over a wood pile and fell onto right upper extremity. Treatment up to this point has consisted of ED evaluation, sling, right sugar-tong splint, XRays, and pain medicine. Kamila currently rates her pain as moderate, and describes it as aching, worse with attempted use of extremity, and improved with rest and elevation. She denies any numbness or tingling in hands or fingers. She says she has been wearing her sling pretty much all the time since she was seen in the emergency department. She has maintained her splint. Lab Results Component Value Date HGBA1C 5.8 (H) 10/30/2022 Past Surgical History: Procedure Laterality Date COLONOSCOPY 5 years ago COLONOSCOPY W/ BIOPSIES 08/11/2024 Performed by Mason Haynes MD at [facility] ENDOSCOPY COLONOSCOPY W/ BIOPSIES AND POLYPECTOMY N/A 08/11/2024 Performed by Mason Haynes MD at [facility] ENDOSCOPY TONSILLECTOMY (HISTORICAL) WRIST SURGERY Past Medical History: Diagnosis Date Benign paroxysmal positional vertigo due to bilateral vestibular disorder 05/01/2022 Depression Dizziness and giddiness 06/16/2023 GERD (gastroesophageal reflux disease) Greater trochanteric bursitis of right hip 05/01/2022 Heat intolerance Hyperlipidemia Hypertension IBS (irritable bowel syndrome) Inflamed sebaceous cyst 05/23/2021 Insomnia 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 10/10/2023 Sleep apnea Urinary tract infection symptoms 03/23/2024 Family History Problem Relation Name Age of Onset Breast cancer Mother's Sister Substance Abuse Mother Heart disease Father Heart disease Mother Social History Socioeconomic History Marital status: Spouse name: Not on file Number of children: Not on file Years of education: Not on file Highest education level: Not on file Occupational History Not on file Tobacco Use Smoking status: Never Smokeless tobacco: Never Vaping Use Vaping status: Never Used Substance and Sexual Activity Alcohol use: No Drug use: No Sexual activity: Defer Other Topics Concern Not on file Social History Narrative Not on file Social Drivers of Health Financial Resource Strain: Low Risk (12/30/2023) Overall Financial Resource Strain (CARDIA) Difficulty of Paying Living Expenses: Not hard at all Food Insecurity: No Food Insecurity (12/30/2023) Hunger Vital Sign Worried About Running Out of Food in the Last Year: Never true Ran Out of Food in the Last Year: Never true Transportation Needs: No Transportation Needs (12/30/2023) PRAPARE - Transportation Lack of Transportation (Medical): No Lack of Transportation (Non-Medical): No Physical Activity: Inactive (12/30/2023) Exercise Vital Sign Days of Exercise per Week: 0 days Minutes of Exercise per Session: 0 min Stress: Not on file Social Connections: Not on file Intimate Partner Violence: Not on file Housing Stability: Low Risk (12/30/2023) Housing Stability Vital Sign Unable to Pay for Housing in the Last Year: No Number of Places Lived in the Last Year: 1 Unstable Housing in the Last Year: No Allergies Allergen Reactions Vraylar [Cariprazine] Involuntary movement Current Outpatient Medications Medication Sig Dispense Refill Ascorbic Acid (vitamin C) 1000 MG tablet Take 1,000 mg by mouth daily. aspirin 81 MG EC tablet Take 81 mg by mouth daily. busPIRone (Buspar) 15 MG tablet TAKE 1 TABLET BY MOUTH TWICE A DAY 180 tablet 1 clonazePAM (KlonoPIN) 0.5 MG tablet Take 0.5 tablets (0.25 mg) by mouth 2 times daily. 30 tablet 0 diclofenac (Voltaren) 75 MG EC tablet TAKE 1 TABLET BY MOUTH TWICE A DAY DO NOT CRUSH, CHEW OR SPLIT 60 tablet 0 diphenhydrAMINE (BENADryl) 25 MG tablet Take by mouth. FLUoxetine (PROzac) 40 MG capsule Take 40 mg by mouth daily. folic acid (Folvite) 1 MG tablet TAKE 1 TABLET BY MOUTH EVERY DAY 90 tablet 1 HYDROcodone-acetaminop hen ([place]) 5-325 MG tablet Take 1 tablet by mouth every 6 hours as needed for severe pain (7-10) for up to 10 days. 20 tablet 0 lisinopril 2.5 MG tablet Take 2.5 mg by mouth daily. metoprolol succinate XL (Toprol-XL) 25 MG 24 hr tablet TAKE 1 TABLET BY MOUTH EVERY DAY 90 tablet 1 Multiple Vitamin (multivitamin) tablet Take 1 tablet by mouth daily. simvastatin (Zocor) 40 MG tablet TAKE 1 TABLET BY MOUTH EVERY DAY NIGHTLY 90 tablet 1 valbenazine tosylate (Ingrezza) 40 MG capsule Take 1 capsule (40 mg) by mouth daily. 30 capsule 3 No current facility-administered medications for this visit. OBJECTIVE H (more content not included)... Normal [facility] XR Humerus - right Viewson 0 12-10-2024 No acute osseous abnormality of the right humerus. Report Dictated on Electronically Signed By: William Neal MD Electronically Signed Date/Time: 12/10/2024 5:15 PM EST [facility] Patient Name: KAMILA JOSEPH : 1955 Exam Date/Time: 12/10/2024 13:50 Procedure: XR HUMERUS RIGHT Ordering Provider: BAY KATELYN Reason For Exam: right arm pain Clinical indication: Right arm pain. COMPARISON: None. TECHNIQUE: AP and lateral radiographs were obtained of the right humerus. FINDINGS: Two views of the right humerus shows no acute fracture or dislocation. The joint spaces are normal and the alignment is anatomic. Bony mineralization and soft tissues are normal. [facility] Yvette Neal MD - 12/10/2024 Patient Name: KAMILA JOSEPH : 1955 Exam Date/Time: 12/10/2024 13:50 Procedure: XR HUMERUS RIGHT Ordering Provider: BAY KATELYN Reason For Exam: right arm pain Clinical indication: Right arm pain. COMPARISON: None. TECHNIQUE: AP and lateral radiographs were obtained of the right humerus. FINDINGS: Two views of the right humerus shows no acute fracture or dislocation. The joint spaces are normal and the alignment is anatomic. Bony mineralization and soft tissues are normal. IMPRESSION: No acute osseous abnormality of the right humerus. Report Dictated on Electronically Signed By: William Neal MD Electronically Signed Date/Time: 12/10/2024 5:15 PM EST [facility] Radiology Study observation (narrative) [facility] XR Humerus - right ViewsOrde red By: Yvette Neal on 12-10-2024 [facility] Work Phone: [phone] 12-08-2024 37 If your insurance do es not change you may Schedule MRI for around 06/07/2025. Once you have this scheduled you can schedule a follow-up with Dr. Mann to review MRI Normal [facility] 37 Personalized Preventative Plan for Kamila Joseph - 12/08/2024 Medicare offers a range of preventative health benefits. Some of the tests and screenings are paid in full while others may be subject to a deductible, co-insurance, and / or copay. Some of these benefits include a comprehensive review of your medical history including lifestyle, illnesses that may run in your family, and various assessments and screenings as appropriate. After reviewing your medical record and screening and assessments performed today, your provider may have ordered immunizations, labs, imaging, and / or referrals for you. A list of these orders (if applicable) as well as your Preventative Care list are included within your After Visit Summary for your review. Other Preventative Recommendations: A preventive eye exam by an photo print specialist is recommended every 1-2 years to screen for glaucoma, cataracts, macular degeneration, and other eye disorders. A preventive dental visit is recommended every 6 months. Try to get at least 150 minutes of exercise per week or 10,000 steps per day on a pedometer. You need 1200-1500mg of calcium and 2172-1135 international units of vitamin D per day. It is possible to meet your calcium requirement with diet alone, but a vitamin D supplement is usually necessary to meet this goal. When exposed to the sun, use a sunscreen that protects against both UVA and UVB radiation with an SPF of 30 or greater. Reapply every 2-3 hours or after sweating, drying off with a towel, or swimming. Always wear a seat belt when traveling in a car. Always wear a helmet when riding a bicycle or a motorcycle Normal [facility] MR/BMS.BPon 12-08-2024 MR/BMS.BP [address], [address] [place] [address] OFFICE VISIT Date of Service: 12/08/24 MR#: [id number] Acct: [id number] Name: KAMILA JOSEPH Rep #: [id number] : 1955 Provider: Dr. Andrew Cobian se, DO Age/Sex: 69/F [place] [facility] [place] Status: Signed Intake Vital Signs 09/07/24 10:00 12/08/24 13:00 Height 5 ft 2 in 5 ft 2 in Weight: 182 lb BMI 33.3 BP 128/81 H 124/84 H Blood Pressure Location Lt radial Lt brachial Position Sitting Sitting Respiration 16 16 Pulse 59 L 77 Pulse Source Monitor Monitor BP Intake Visit Reasons: 3 M FU Accompanied by: Daughter Allergies cariprazine (From Jose) Allergy (Mild, Verified 12/08/24 13:04) DIZZINESS Medications ???Medication ???Instructions ???Recorded ???Confirmed ???Type folic acid 1 mg tablet 1 mg PO DAILY SUPPLEMENT 02/23/19 12/08/24 History simvastatin 40 mg tablet 40 mg PO QHS CHOLESTEROL 02/23/19 12/08/24 History aspirin 81 mg tablet,delayed 81 mg PO DAILY 01/03/23 12/08/24 H istory release metoprolol succinate 25 mg See Rx Instructions .Route 3 12/08/24 Rx tablet,extended release 24 hr .COMPLEX #90 tabs diphenhydramine HCl 25 mg tablet 25 mg PO QHS PRN 12/04/23 12/08/24 History (Benadryl Allergy) valbenazine 80 mg capsule mg PO 12/04/23 12/08/24 History (Ingrezza) lisinopril 2.5 mg tablet 2.5 mg PO DAILY #90 TABLETS 12/08/24 Rx clonazepam 0.5 mg tablet 0.25 mg (1/2 x 0.5 mg) PO BID 30 1 12/07/23 12/08/24 Rx days #30 tabs buspirone 15 mg tablet 15 mg PO BID 90 days #180 tabs 12/08/24 Rx diclofenac sodium 75 mg mg PO 12/08/24 12/08/24 History tablet,delayed release fluoxetine 40 mg capsule 40 mg PO DAILY 90 days #90 caps 12/08/24 Rx oxycodone-acetaminophe n 5 mg-325 0.5 tab PO QHS PRN 12/08/24 History mg tablet Have you fallen in the past year?: Yes (Several- recent fracture) PENDING SALE TO [facility] Medical History (Updated 06/09/24 @ 12:[address] Andrew Argueta, DO) MDD (major depressive disorder) Major depressive disorder in full remission History of uterine ablation Atrial tachycardia TERESA (obstructive sleep apnea) Depression Essential hypertension Cardiomyopathy Congestive heart failure Infection due to ESBL-producing Escherichia coli Lower back pain Surgical History History of tonsillectomy History of carpal tunnel surgery Family History Mother Heart disease Father Heart disease Brother Heart disease Social History Smoking Status: Never smoker alcohol intake: never substance use type: does not use caffeine: Yes (occasionally) HPI History of Present Illness History provided by: patient HPI: Kamila Joseph is a 69 year old female who presents today for follow up evaluation. Patient is wearing a sling and soft cast on her right arm. States that she tripped over some trim pieces that were laying around waiting to be installed, and fell and broke her radius. She did go the ER following this. Was trying to keep secret from her daughter. Daughter came back in to town for the 3 weeks starting on Saturday. Her daughter works as a guardian so comes home for stretches of time. The neurologist has reduced her Ingrezza to 40 mg every other day. Facial movements are still largely controlled. Balance has been better. She has significantly less masked facies than previous encounters. Almost feels like her mood has been improved in regards to depression but has been feeling more anxious in recent past. Denies significant depression. Appetite has been increased. Has gained 3.2 lbs. No significant psychomotor slowing evident. Denies SI/HI or AVH. Review of Systems Constitutional Reports: other (hot/cold flashes); Denies: fever(s), chills, change in weight or fatigue Eyes Denies: change in vision or blurry vision Ears, Nose, Mouth, Throat Denies: throat pain, neck pain or change in hearing Cardiovascular Denies: chest pain, palpitations or dyspnea Respiratory Denies: dyspnea, cough or wheezing Gastrointestinal Denies: abdominal pain, nausea, vomiting, diarrhea or constipation Genitourinary Denies: dysuria or urinary frequency Musculoskeletal Denies: back pain, neck pain, joint pain or muscle weakness Integumentary/Breast Denies: rash or new lesions Neurological Reports: involuntary movements (Very mild lateral tongue movement upon extrusion); Denies: headache(s), dizziness or confusion Endocrine Reports: excessive sweating; Denies: fatigue Hematologic/Lymphatic Denies: easy bruising or easy bleeding Allergic/Immunologic Denies: wheezing Exam Mental Status Exam - Psych Appearance c (more content not included)... Normal [facility] Office Visiton 12-08-2024 Follow-up visit [id number] Ras Joseph 1955 Date Provider Department Center 12/08/2024 [id number] [facility] OR None Family History Problem Relation Age of Onset Breast cancer Mother's Sister Substance Abuse Mother Heart disease Father Heart disease Mother Family Status - Relation Status Age at Mother's Sister Mother Alive Father Level of Service:35840 OR OFFICE/OUTPATIENT ESTABLISHED MOD MDM 30 MIN Reason for Visit and Comments: Follow-up [800561] Back Pain [12] Normal [facility] Follow-up visit [id number] Ras Joseph 1955 Date Provider Department Center 12/08/2024 [id number] VO [facility] Family History Problem Relation Age of Onset Breast cancer Mother's Sister Substance Abuse Mother Heart disease Father Heart disease Mother Family Status - Relation Status Age at Mother's Sister Mother Alive Father Level of Service:G0439 OR PPPS, SUBSEQ VISIT Reason for Visit and Comments: Medicare Annual Wellness Visit Subsequent [677] Health Maintenance [872] - ?Bone Density Scan-NEEDS TO SCHEDULE ?Derm Melanoma Skin Check-needs completed ?Hepatitis C Screening-declined ?Pneumococcal Vaccine-declined ?Hepatitis B Vaccines-declined ?RSV Immunization-declined ?Mammogram-nata'd December 282024 ?Diabetes Screening-Today ?Echocardiogram-DISCUS S WITH PROVIDER LAST COMPLETED ?Influenza Vaccine-declined ?COVID-19 Vaccine-declined [facility] Progress Noteon 12-08-2024 Progress Note Improving. Continue follow-up with neurology [facility] Progress Note Follow-up with orthopedic as directed [facility] Progress Note Controlled. Blood pressure 137/81, continue metoprolol 25 mg daily and lisinopril 2.5 mg daily Normal [facility] Progress Note Check lipids, contin ue simvastatin 40 mg daily [facility] Progress Note Stable. Is due for echocardiogram. Continue current medications [facility] Progress Note Stable. Is due for h er echocardiogram, continue current medications [facility] Progress Note Stable, managed by neurology, follow-up with neurology [facility] Progress Note Stable. Continue to follow-up with psychiatry and neurology [facility] Progress Note [facility] [place] [address] [facility] [id number] Dept: [phone] Dept Kamila Joseph 1955 [id number] 12/08/2024 Problem List: Neck pain Cervical spondylosis Cervical radiculopathy (G95.9) Cervical myelopathy (HCC) (M54.2) Neck pain (M47.812) Cervical spondylosis (M54.12) Cervical radiculopathy Chief Complaint Patient presents with Follow-up Back Pain HPI: Kamila is a 69 y.o. female who is here today for evaluation of her lumbar spine. Kamila is referred by her PCP Current symptoms: Pain in neck but feels worse with her sling on Pain is located in the low back that is radiating no. Numbness tingling: no Weakness: no PRASHANT: no known injury Duration of symptoms/DOI: chronic Symptoms are moderately affecting their quality of life. Associated neurologic complaints/Red flags: Gait/balance difficulty: has Use of ambulatory aid?: no device Able to walk a city block: No Bowel/bladder incontinence: has Urinary retention: No Saddle anesthesia: No Fine motor task difficulty/dropping things/handwriting changes: has History of cancer: No Aggravating factors: All activities when it hurts Alleviating Factors: NSAIDS Heating pad Do your symptoms improve with lying on your back or side: Yes Previous Treatment: PT: yes Where: [facility] When: 09/2024 Completed: Yes NSAIDS: Ibuprofen (Advil, Motrin) Injections: No Opioid medications: no Muscle relaxers: no Oral steroids: no Nerve medications (gabapentin/Lyrica): no Pain management: No Chiropractor: No Previous spine surgery: no History of DVT/PE or hypercoagulable state (including history of relative): no Blood thinning medications: ASA Work Status: Retired Is this a work related injury? No Review of Systems Musculoskeletal: Positive for arthralgias, back pain, gait problem and myalgias. Tobacco Use: Low Risk (12/09/2024) Patient History Smoking Tobacco Use: Never Smokeless Tobacco Use: Never Passive Exposure: Not on file Lab Results Component Value Date HGBA1C 5.8 (H) 10/30/2022 Allergies Allergen Reactions Vraylar [Cariprazine] Involuntary movement Current Outpatient Medications Medication Sig Dispense Refill Ascorbic Acid (vitamin C) 1000 MG tablet Take 1,000 mg by mouth daily. aspirin 81 MG EC tablet Take 81 mg by mouth daily. busPIRone (Buspar) 15 MG tablet TAKE 1 TABLET BY MOUTH TWICE A DAY 180 tablet 1 clonazePAM (KlonoPIN) 0.5 MG tablet Take 0.5 tablets (0.25 mg) by mouth 2 times daily. 30 tablet 0 diclofenac (Voltaren) 75 MG EC tablet TAKE 1 TABLET BY MOUTH TWICE A DAY DO NOT CRUSH, CHEW OR SPLIT 60 tablet 0 diphenhydrAMINE (BENADryl) 25 MG tablet Take by mouth. FLUoxetine (PROzac) 40 MG capsule Take 40 mg by mouth daily. folic acid (Folvite) 1 MG tablet TAKE 1 TABLET BY MOUTH EVERY DAY 90 tablet 1 HYDROcodone-acetaminop hen ([place]) 5-325 MG tablet Take 1 tablet by mouth every 6 hours as needed for severe pain (7-10) for up to 10 days. 20 tablet 0 lisinopril 2.5 MG tablet Take 2.5 mg by mouth daily. metoprolol succinate XL (Toprol-XL) 25 MG 24 hr tablet TAKE 1 TABLET BY MOUTH EVERY DAY 90 tablet 1 Multiple Vitamin (multivitamin) tablet Take 1 tablet by mouth daily. simvastatin (Zocor) 40 MG tablet TAKE 1 TABLET BY MOUTH EVERY DAY NIGHTLY 90 tablet 1 valbenazine tosylate (Ingrezza) 40 MG capsule Take 1 capsule (40 mg) by mouth daily. 30 capsule 3 No current facility-administered medications for this visit. Past Medical History: Diagnosis Date Benign paroxysmal positional vertigo due to bilateral vestibular disorder 05/01/2022 Depression Dizziness and giddiness 06/16/2023 GERD (gastroesophageal reflux disease) Greater trochanteric bursitis of right hip 05/01/2022 Heat intolerance Hyperlipidemia Hypertension IBS (irritable bowel syndrome) Inflamed sebaceous cyst 05/23/2021 Insomnia 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 10/10/2023 Sleep apnea Urinary tract infection symptoms 03/23/2024 Past Surgical History: Procedure Laterality Date COLONOSCOPY 5 years ago COLONOSCOPY W/ BIOPSIES 08/11/2024 Performed by Mason Haynes MD at [facility] COLONOSCOPY W/ BIOPSIES AND POLYPECTOMY N/A 08/11/2024 Performed by Mason Haynes MD at [facility] TONSILLECTOMY (HISTORICAL) WRIST SURGERY Social History Socioeconomic History Marital status: Spouse name: Not on file Number of children: Not on file Years of education: Not on file Highest education level: Not on file Occupational History Not on file Tobacco Use Smoking status: Never Smokeless tobacco: Never Vaping Use Vaping status: Never Used Substance and Sexual Activity Alcohol use: No Drug use: No Sexual activity: Defer Other Topics Concern Not on file Social History Narrative Not on file Social Drivers of Health Financial Resource Strai (more content not included)... Normal [facility] Progress Note Patient was identifi ed by name and Date of . -CLOCK -WORDS -AWV Questions Health Maintenance Due Topic Bone Density Scan-NEEDS TO SCHEDULE Derm Melanoma Skin Check-needs completed Hepatitis C Screening-declined Pneumococcal Vaccine-declined Hepatitis B Vaccines-declined RSV Immunization-declined Mammogram-nata'd December 282024 Diabetes Screening-Today Echocardiogram-DISCUSS WITH PROVIDER LAST COMPLETED Influenza Vaccine-declined COVID-19 Vaccine-declined [facility] Progress Note - [address] [address] Dept: [phone] Dept Chief Complaint: Kamila Joseph is an 69 y.o. female here for an annual wellness visit. Assessment/Plan : Problem List Items Addressed This Visit Tardive dyskinesia Improving. Continue follow-up with neurology Closed fracture of right upper extremity Follow-up with orthopedic as directed Parkinson's disease without dyskinesia or fluctuating manifestations (HCC) Stable, managed by neurology, follow-up with neurology Mild dementia without behavioral disturbance, psychotic disturbance, mood disturbance, or anxiety, unspecified dementia type (HCC) Stable. Continue to follow-up with psychiatry and neurology Essential hypertension Controlled. Blood pressure 137/81, continue metoprolol 25 mg daily and lisinopril 2.5 mg daily Relevant Orders Comprehensive metabolic panel Hyperlipidemia LDL goal <100 Check lipids, continue simvastatin 40 mg daily Relevant Orders Lipid panel Cardiomyopathy (HCC) Stable. Is due for echocardiogram. Continue current medications Relevant Orders Transthoracic echocardiogram (TTE) complete with contrast, bubble, strain, and 3D PRN Congestive heart failure (HCC) Stable. Is due for her echocardiogram, continue current medications Other Visit Diagnoses Routine general medical examination at health care facility - Primary Screening for deficiency anemia Relevant Orders CBC Abnormal electrocardiogram (ECG) (EKG) Relevant Orders Transthoracic echocardiogram (TTE) complete with contrast, bubble, strain, and 3D PRN I have reviewed and reconciled the medication list with the patient today. Current Outpatient Medications Medication Sig Dispense Refill Ascorbic Acid (vitamin C) 1000 MG tablet Take 1,000 mg by mouth daily. aspirin 81 MG EC tablet Take 81 mg by mouth daily. busPIRone (Buspar) 15 MG tablet TAKE 1 TABLET BY MOUTH TWICE A DAY 180 tablet 1 clonazePAM (KlonoPIN) 0.5 MG tablet Take 0.5 tablets (0.25 mg) by mouth 2 times daily. 30 tablet 0 diclofenac (Voltaren) 75 MG EC tablet TAKE 1 TABLET BY MOUTH TWICE A DAY DO NOT CRUSH, CHEW OR SPLIT 60 tablet 0 diphenhydrAMINE (BENADryl) 25 MG tablet Take by mouth. FLUoxetine (PROzac) 40 MG capsule Take 40 mg by mouth daily. folic acid (Folvite) 1 MG tablet TAKE 1 TABLET BY MOUTH EVERY DAY 90 tablet 1 HYDROcodone-acetaminop hen ([place]) 5-325 MG tablet Take 1 tablet by mouth every 6 hours as needed for severe pain (7-10) for up to 10 days. 20 tablet 0 lisinopril 2.5 MG tablet Take 2.5 mg by mouth daily. metoprolol succinate XL (Toprol-XL) 25 MG 24 hr tablet TAKE 1 TABLET BY MOUTH EVERY DAY 90 tablet 1 Multiple Vitamin (multivitamin) tablet Take 1 tablet by mouth daily. simvastatin (Zocor) 40 MG tablet TAKE 1 TABLET BY MOUTH EVERY DAY NIGHTLY 90 tablet 1 valbenazine tosylate (Ingrezza) 40 MG capsule Take 1 capsule (40 mg) by mouth daily. 30 capsule 3 No current facility-administered medications for this visit. Also reviewed during this visit: Presents with her daughter and her . Patient had recent fall about a week ago and broke her right elbow. Is currently on a soft wrap and she sees orthopedics on . Reports the pain is now tolerable. Denies any new numbness or tingling in the hand and is able to move the fingers without difficulty. Is currently in a sling. Tardive dyskinesia/Parkinson's -sees neurology regularly and her Ingrezza dosing is being decreased to 40 mg every other day and they are trying to wean her off of that and then potentially will be starting Sinemet for her Parkinson's. Depression anxiety-is established with psychiatry and reports that her mood is pretty good-she sees [facility] in [place] Hypertension-blood pressure has been good is currently taking lisinopril and metoprolol and denies any adverse effects of the medication Heart failure/cardiomyopathy -is due for her echocardiogram this year. Denies any chest pain or shortness of breath and has been stable on her current medications. She was seeing cardiology but is wondering if we can follow her now as she has been stable. Dementia-denies any significant change in mentation does have some forgetfulness. Follows with both psychiatry and neurology. The following health maintenance schedule was reviewed with the patient and provided in printed form in the after visit summary: Health Maintenance Topic Date Due Bone Density Scan Never done Derm Melanoma Skin Check Never done Mammogram 01/25/2023 Echocardiogram 01/19/2024 Influenza Vaccine (1) 06/21/2024 Depression Monitoring 01/05/2025 RSV Immunization for Adults (1 - Risk 60-74 years 1-dose series) 12/08/2025 (Originally 2017) Creatinine Level 12/29/2024 Potassium Level 12/29/2024 Medicare Annual Wellness (AWV) 01/28/2025 Diabetes Screening 12/08/2025 DTaP/Tda (more content not included)... Normal [facility] Office Visiton 12-07-2024 Follow-up visit [id number] Ras Joseph 1955 F Date Provider Department Center 12/07/2024 [id number] [facility] P None Family History Problem Relation Age of Onset Breast cancer Mother's Sister Substance Abuse Mother Heart disease Father Heart disease Mother Family Status - Relation Status Age at Mother's Sister Mother Alive Father Level of Service:54786 OR OFFICE/OUTPATIENT ESTABLISHED MOD MDM 30 MIN Reason for Visit and Comments: Follow-up [155248] - Dyskinesia Normal [facility] Progress Noteon 12-07-2024 Progress Note Department of Neurological Sciences Visit Note CHIEF COMPLAINT: Chief Complaint Patient presents with Follow-up Dyskinesia Main diagnoses: Tardative dyskinesia HISTORY OF PRESENT ILLNESS: The patient is a 69 y.o. female today presents to the Neurology clinic with history of Tardative dyskinesia consistent rigidity, oral dyskinesia with tongue rolling and difficulty with gait. Today patient presented to the neurology clinic accompanied by her daughter. Apparently patient fall last weekend and fracture of her right elbow. Patient was evaluated approximately 3 months ago. At that time her Ingrezza was decreased from 80 mg p.o. daily to 40 mg p.o. daily. Her gait has improved next and she denied any significant dyskinesias. She is still have rigidity in both upper extremities. Patient was taking clonazepam from psychiatry at they are trying to taper off the bed this medication. We are also trying to decrease patient Ingrezza. Patient denied any side effect from medication. Patient no longer has shuffling gait but when she turned around she needs at least for the steps. Patient denied any other neurological deficits. Secundary diagnoses: Parkinsonism, depression 1. Medications: Current Outpatient Medications Medication Sig Dispense Refill Ascorbic Acid (vitamin C) 1000 MG tablet Take 1,000 mg by mouth daily. aspirin 81 MG EC tablet Take 81 mg by mouth daily. busPIRone (Buspar) 15 MG tablet TAKE 1 TABLET BY MOUTH TWICE A DAY 180 tablet 1 clonazePAM (KlonoPIN) 0.5 MG tablet Take 0.5 tablets (0.25 mg) by mouth 2 times daily. 30 tablet 0 diclofenac (Voltaren) 75 MG EC tablet TAKE 1 TABLET BY MOUTH TWICE A DAY DO NOT CRUSH, CHEW OR SPLIT 60 tablet 0 diphenhydrAMINE (BENADryl) 25 MG tablet Take by mouth. FLUoxetine (PROzac) 40 MG capsule Take 40 mg by mouth daily. folic acid (Folvite) 1 MG tablet TAKE 1 TABLET BY MOUTH EVERY DAY 90 tablet 1 lisinopril 2.5 MG tablet Take 2.5 mg by mouth daily. metoprolol succinate XL (Toprol-XL) 25 MG 24 hr tablet TAKE 1 TABLET BY MOUTH EVERY DAY 90 tablet 1 Multiple Vitamin (multivitamin) tablet Take 1 tablet by mouth daily. simvastatin (Zocor) 40 MG tablet TAKE 1 TABLET BY MOUTH EVERY DAY NIGHTLY 90 tablet 1 valbenazine tosylate (Ingrezza) 40 MG capsule Take 1 capsule (40 mg) by mouth daily. 30 capsule 3 HYDROcodone-acetaminop hen ([place]) 5-325 MG tablet Take 1 tablet by mouth every 6 hours as needed for severe pain (7-10) for up to 10 days. 20 tablet 0 No current facility-administered medications for this visit. Allergies: Vraylar [cariprazine] Social History: Social History Socioeconomic History Marital status: Spouse name: Not on file Number of children: Not on file Years of education: Not on file Highest education level: Not on file Occupational History Not on file Tobacco Use Smoking status: Never Smokeless tobacco: Never Vaping Use Vaping status: Never Used Substance and Sexual Activity Alcohol use: No Drug use: No Sexual activity: Defer Other Topics Concern Not on file Social History Narrative Not on file Social Drivers of Health Financial Resource Strain: Low Risk (12/30/2023) Overall Financial Resource Strain (CARDIA) Difficulty of Paying Living Expenses: Not hard at all Food Insecurity: No Food Insecurity (12/30/2023) Hunger Vital Sign Worried About Running Out of Food in the Last Year: Never true Ran Out of Food in the Last Year: Never true Transportation Needs: No Transportation Needs (12/30/2023) PRAPARE - Transportation Lack of Transportation (Medical): No Lack of Transportation (Non-Medical): No Physical Activity: Inactive (12/30/2023) Exercise Vital Sign Days of Exercise per Week: 0 days Minutes of Exercise per Session: 0 min Stress: Not on file Social Connections: Not on file Intimate Partner Violence: Not on file Housing Stability: Low Risk (12/30/2023) Housing Stability Vital Sign Unable to Pay for Housing in the Last Year: No Number of Places Lived in the Last Year: 1 Unstable Housing in the Last Year: No Family History: Family History Problem Relation Name Age of Onset Breast cancer Mother's Sister Substance Abuse Mother Heart disease Father Heart disease Mother REVIEW OF SYSTEMS: Review of Systems onstitutional: Positive for activity change. HENT: Positive for rhinorrhea. Eyes: Negative. Respiratory: Negative. Cardiovascular: Negative. Gastrointestinal: Negative. Endocrine: Negative. Genitourinary: Negative. Musculoskeletal: Positive for arthralgias and joint swelling. Skin: Negative. Allergic/Immunologic: Negative. Neurological: Positive for tremors, speech difficulty and weakness. Hematological: Bruises/bleeds easily. Psychiatric/Behavioral : Positive for confusion and decreased concentration. The patient is nervous/anxious. PHYSICAL EXAM: Vitals: BP 116/70 Ht 5' 2 (1.575 m) Wt 179 lb (81.2 kg) BMI 32.74 kg/m? Phys (more content not included)... Normal [facility] ED Provider Noteon ED Provider Note EMERGENCY DEPARTMENT ENCOUNTER Pt Name: Kamila Joseph Birthdate 1955 Date of evaluation: 12/05/2024 ED Provider: Bud Malik DO CHIEF COMPLAINT Chief Complaint Patient presents with Fall Pt fell today while trying to step over a pile of wood in the garage, pt caught foot and landed on hands, did not hit head Elbow Pain Right elbow pain s/p fall Wrist Pain Right wrist pain s/p fall HISTORY OF PRESENT ILLNESS (Location/Symptom, Timing/Onset, Context/Setting, Quality, Duration, Modifying Factors, Severity) Note limiting factors. I wore appropriate PPE for the entirety of this encounter. HPI Kamila Joseph is a 69 y.o. female who presents to the emergency department with right elbow and wrist pain after mechanical fall. States she was stepping over a wood pile when she tripped and fell. Has mild amount of pain particularly with movement. No significant discomfort at rest. No other pain throughout the upper arm and neck or back. Also hit her left knee but has been ambulating normally since the injury and no pain. No hip pain chest pain shortness of breath abdominal pain. No syncopal nature to the fall. Patient is not anticoagulated. Nursing Notes were reviewed. REVIEW OF SYSTEMS 14 systems reviewed and otherwise acutely negative except as in the [facility]II[facility]. PAST MEDICAL HISTORY Past Medical History: Diagnosis Date Benign paroxysmal positional vertigo due to bilateral vestibular disorder 05/01/2022 Depression GERD (gastroesophageal reflux disease) Greater trochanteric bursitis of right hip 05/01/2022 Heat intolerance Hyperlipidemia Hypertension IBS (irritable bowel syndrome) Inflamed sebaceous cyst 05/23/2021 Insomnia Sleep apnea SURGICAL HISTORY Past Surgical History: Procedure Laterality Date COLONOSCOPY 5 years ago COLONOSCOPY W/ BIOPSIES 08/11/2024 Performed by Mason Haynes MD at [facility] COLONOSCOPY W/ BIOPSIES AND POLYPECTOMY N/A 08/11/2024 Performed by Mason Haynes MD at [facility] TONSILLECTOMY (HISTORICAL) WRIST SURGERY CURRENT MEDICATIONS Discharge Medication List as of 12/05/2024 9:30 PM CONTINUE these medications which have NOT CHANGED Details Ascorbic Acid (vitamin C) 1000 MG tablet Take 1,000 mg by mouth daily., Starting Sat08/06/2023, Historical Med aspirin 81 MG EC tablet Take 81 mg by mouth daily., Historical Med busPIRone (Buspar) 15 MG tablet TAKE 1 TABLET BY MOUTH TWICE A DAY, Starting Sat03/05/2024, Normal clonazePAM (KlonoPIN) 0.5 MG tablet Take 0.5 tablets (0.25 mg) by mouth 2 times daily., Starting Sat10/16/2023, Until Sat09/08/2025, Normal diclofenac (Voltaren) 75 MG EC tablet TAKE 1 TABLET BY MOUTH TWICE A DAY DO NOT CRUSH, CHEW OR SPLIT, Normal diphenhydrAMINE (BENADryl) 25 MG tablet Take by mouth., Historical Med FLUoxetine (PROzac) 40 MG capsule Take 40 mg by mouth daily., Historical Med folic acid (Folvite) 1 MG tablet TAKE 1 TABLET BY MOUTH EVERY DAY, Normal lisinopril 2.5 MG tablet Take 2.5 mg by mouth daily., Starting Sat08/13/2022, Historical Med metoprolol succinate XL (Toprol-XL) 25 MG 24 hr tablet TAKE 1 TABLET BY MOUTH EVERY DAY, Starting Sat09/07/2024, Normal Multiple Vitamin (multivitamin) tablet Take 1 tablet by mouth daily., Historical Med simvastatin (Zocor) 40 MG tablet TAKE 1 TABLET BY MOUTH EVERY DAY NIGHTLY, Starting Sat07/06/2024, Normal valbenazine tosylate (Ingrezza) 40 MG capsule Take 1 capsule (40 mg) by mouth daily., Starting Sat09/14/2024, Until Sat09/14/2025, Normal ALLERGIES Vraylar [cariprazine] FAMILY HISTORY Family History Problem Relation Name Age of Onset Breast cancer Mother's Sister Substance Abuse Mother Heart disease Father Heart disease Mother SOCIAL HISTORY Social History Socioeconomic History Marital status: Tobacco Use Smoking status: Never Smokeless tobacco: Never Vaping Use Vaping status: Never Used Substance and Sexual Activity Alcohol use: No Drug use: No Sexual activity: Defer Social Drivers of Health Financial Resource Strain: Low Risk (12/30/2023) Overall Financial Resource Strain (CARDIA) Difficulty of Paying Living Expenses: Not hard at all Food Insecurity: No Food Insecurity (12/30/2023) Hunger Vital Sign Worried About Running Out of Food in the Last Year: Never true Ran Out of Food in the Last Year: Never true Transportation Needs: No Transportation Needs (12/30/2023) PRAPARE - Transportation Lack of Transportation (Medical): No Lack of Transportation (Non-Medical): No Physical Activity: Inactive (12/30/2023) Exercise Vital Sign Days of Exercise per Week: 0 days Minutes of Exercise per Session: 0 min Housing Stability: Low Risk (12/30/2023) Housing Stability Vital Sign Unable to Pay for Housing in the Last Year: No Number of Places Lived in the Last Year: 1 Unstable Housing in the Last Year: No SCREENINGS PHYSICAL EXAM ED Triage Vitals [ (more content not included)... [facility] No Panel Informationon 12-05 Comminuted and impacted radial head fracture. No additional fracture or evidence of dislocation within the right elbow and right wrist. Report Dictated on Electronically Signed By: Rajni Robles DO Electronically Signed Date/Time: 12/05/2024 9:12 PM [facility] Bud Malik DO 12/06/2024 4:20 AM Splint Application Performed by: Bud Malik DO Authorized by: Bud Malik DO Consent: Consent obtained: Verbal Consent given by: Patient Risks, benefits, and alternatives were discussed: yes Risks discussed: Discoloration, numbness and pain Alternatives discussed: No treatment [place] protocol: Procedure explained and questions answered to patient or proxy's satisfaction: yes Patient identity confirmed: Verbally with patient Pre-procedure details: Distal neurologic exam: Normal Distal perfusion: distal pulses strong Procedure details: Location: Elbow Elbow location: R elbow Splint type: Long arm Supplies: Aluminum splint Attestation: Splint applied and adjusted personally by me Post-procedure details: Distal neurologic exam: Normal Distal perfusion: distal pulses strong Procedure completion: Tolerated Post-procedure imaging: not applicable edupristine No Panel InformationOrdered By: Rajni Robles on 12-05-2024 [employer] Work Phone: XR Elbow - right 3 Viewson 0 12-05-2024 Patient Name: KAMILA JOSEPH : 1955 Exam Date/Time: 12/05/2024 20:44 Procedure: XR ELBOW 3+ VIEWS RIGHT Ordering Provider: MALIK TYLER Reason For Exam: fall, elbow pain, eval for fracture X-RAY RIGHT WRIST AND ELBOW SIX VIEWS: INDICATION: Fall, pain. TECHNIQUE: PA, oblique, and lateral views of the right wrist. AP, oblique, and lateral views of the right elbow. COMPARISON: None. FINDINGS: Comminuted fracture of the radial head with approximately 4 mm impaction. Effusion within the right elbow. No dislocation. Soft tissue swelling along the posterior medial right elbow. No acute fracture or dislocation of the right wrist. Degenerative change at the distal radioulnar and radiocarpal joints. [facility] Rajni Robles DO - 12/05/2024 Patient Name: KAMILA JOSEPH : 1955 Exam Date/Time: 12/05/2024 20:44 Procedure: XR ELBOW 3+ VIEWS RIGHT Ordering Provider: MALIK TYLER Reason For Exam: fall, elbow pain, eval for fracture X-RAY RIGHT WRIST AND ELBOW SIX VIEWS: INDICATION: Fall, pain. TECHNIQUE: PA, oblique, and lateral views of the right wrist. AP, oblique, and lateral views of the right elbow. COMPARISON: None. FINDINGS: Comminuted fracture of the radial head with approximately 4 mm impaction. Effusion within the right elbow. No dislocation. Soft tissue swelling along the posterior medial right elbow. No acute fracture or dislocation of the right wrist. Degenerative change at the distal radioulnar and radiocarpal joints. IMPRESSION: Comminuted and impacted radial head fracture. No additional fracture or evidence of dislocation within the right elbow and right wrist. Report Dictated on Electronically Signed By: Rajni Robles DO Electronically Signed Date/Time: 12/05/2024 9:12 PM EST [facility] Radiology Study observation (narrative) Miguel Angel collado XR Wrist - right 3 Viewson 0 12-05-2024 Patient Name: KAMILA JOSEPH : 1955 Exam Date/Time: 12/05/2024 20:44 Procedure: XR WRIST 3+ VIEWS RIGHT Ordering Provider: MALIK TYLER Reason For Exam: fall, right wrist pain, eval for fracture X-RAY RIGHT WRIST AND ELBOW SIX VIEWS: INDICATION: Fall, pain. TECHNIQUE: PA, oblique, and lateral views of the right wrist. AP, oblique, and lateral views of the right elbow. COMPARISON: None. FINDINGS: Comminuted fracture of the radial head with approximately 4 mm impaction. Effusion within the right elbow. No dislocation. Soft tissue swelling along the posterior medial right elbow. No acute fracture or dislocation of the right wrist. Degenerative change at the distal radioulnar and radiocarpal joints. [facility] Rajni Robles DO - 12/05/2024 Patient Name: KAMILA JOSEPH : 1955 Exam Date/Time: 12/05/2024 20:44 Procedure: XR WRIST 3+ VIEWS RIGHT Ordering Provider: MALIK TYLER Reason For Exam: fall, right wrist pain, eval for fracture X-RAY RIGHT WRIST AND ELBOW SIX VIEWS: INDICATION: Fall, pain. TECHNIQUE: PA, oblique, and lateral views of the right wrist. AP, oblique, and lateral views of the right elbow. COMPARISON: None. FINDINGS: Comminuted fracture of the radial head with approximately 4 mm impaction. Effusion within the right elbow. No dislocation. Soft tissue swelling along the posterior medial right elbow. No acute fracture or dislocation of the right wrist. Degenerative change at the distal radioulnar and radiocarpal joints. IMPRESSION: Comminuted and impacted radial head fracture. No additional fracture or evidence of dislocation within the right elbow and right wrist. Report Dictated on Electronically Signed By: Rajni Robles DO Electronically Signed Date/Time: 12/05/2024 9:12 PM [facility] Radiology Study observation (narrative) Miguel Angel collado 36on 12-01-2024 36 Chart reviewed. Prescription sent. Please review the below with the patient: The risks and appropriate dosing of NSAIDs (ie Meloxicam, Naproxen, Ibuprofen, etc) were discussed with the patient in detail. These include but are not limited to cardiovascular risk, renal toxicity, stomach irritation/refulx and/or peptic ulcer disease. If any of these side effects are experienced I advised the patient to discontinue the medication and contact both myself and their primary care physician. [facility] MR Cervical spine WO contras ton 11-02-2024 Impression: Nonspecific mild diffuse marrow edema of the C4 vertebral body, etiology uncertain. The T1 signal does not meet criteria for marrow replacement. Consider six month follow-up MRI or comparison with any remote MRI examinations. Degenerative endplate changes of C6 and C7. Grossly patent central canal. Inflammatory changes of the right mastoid air cells. Report Dictated on Electronically Signed By: Lincoln Miller MD Electronically Signed Date/Time: 11/02/2024 4:04 PM [facility] Patient Name: KAMILA JOSEPH : 1955 Exam Date/Time: 11/02/2024 10:17 Procedure: MR CERVICAL SPINE WO CONTRAST Ordering Provider: LARSEN SUSAN Reason For Exam: cervical myelopathy Examination: MRI cervical spine Indication: cervical myelopathy Technique: Multiplanar multi-sequence MRI images of the cervical spine were obtained. Findings: The cervical vertebral bodies are in gross anatomic alignment. Mild diffuse marrow edema of the C4 vertebral body is present. The marrow fat is grossly preserved. Mild irregularity of the superior C6 and C7 vertebral body endplates is noted, presumably degenerative. There is no focal marrow replacing lesion. The disc spaces are grossly maintained. Probable mild disc space loss at C6/C7 with osteophytes. The cervical cord is grossly of normal caliber without signal abnormality. There is no cerebellar tonsillar ectopia. The paraspinal musculature is grossly unremarkable. Mild inflammatory changes of the inferior right mastoid air cells. Central canal narrowing detailed below is secondary posterior disc bulging and disc osteophyte complexes, unless otherwise specified. Foraminal narrowing is secondary to disc osteophyte complex, uncovertebral hypertrophy or degenerative facets, unless otherwise specified. At the C2/C3 level, the central canal and foramina are patent. At the C3/C4 level, the central canal and foramina are patent. At the C4/C5 level, minimal posterior disc bulging with tiny osteophytes present. There is minimal narrowing of the central canal. Moderate bilateral foraminal narrowing. At the C5/C6 level, minimal posterior disc bulging present. Moderate to severe left and no significant right-sided foraminal narrowing noted. At the C6/C7 level, minimal posterior disc bulging present with minimal anterior listhesis. The central canal is patent. Mild bilateral foraminal narrowing noted. At the C7/T1 level, the central canal and foramina are patent. [facility] Lincoln Miller MD - 11/02/2024 Patient Name: KAMILA JOSEPH : 1955 Exam Date/Time: 11/02/2024 10:17 Procedure: MR CERVICAL SPINE WO CONTRAST Ordering Provider: LARSEN SUSAN Reason For Exam: cervical myelopathy Examination: MRI cervical spine Indication: cervical myelopathy Technique: Multiplanar multi-sequence MRI images of the cervical spine were obtained. Findings: The cervical vertebral bodies are in gross anatomic alignment. Mild diffuse marrow edema of the C4 vertebral body is present. The marrow fat is grossly preserved. Mild irregularity of the superior C6 and C7 vertebral body endplates is noted, presumably degenerative. There is no focal marrow replacing lesion. The disc spaces are grossly maintained. Probable mild disc space loss at C6/C7 with osteophytes. The cervical cord is grossly of normal caliber without signal abnormality. There is no cerebellar tonsillar ectopia. The paraspinal musculature is grossly unremarkable. Mild inflammatory changes of the inferior right mastoid air cells. Central canal narrowing detailed below is secondary posterior disc bulging and disc osteophyte complexes, unless otherwise specified. Foraminal narrowing is secondary to disc osteophyte complex, uncovertebral hypertrophy or degenerative facets, unless otherwise specified. At the C2/C3 level, the central canal and foramina are patent. At the C3/C4 level, the central canal and foramina are patent. At the C4/C5 level, minimal posterior disc bulging with tiny osteophytes present. There is minimal narrowing of the central canal. Moderate bilateral foraminal narrowing. At the C5/C6 level, minimal posterior disc bulging present. Moderate to severe left and no significant right-sided foraminal narrowing noted. At the C6/C7 level, minimal posterior disc bulging present with minimal anterior listhesis. The central canal is patent. Mild bilateral foraminal narrowing noted. At the C7/T1 level, the central canal and foramina are patent. IMPRESSION: Impression: Nonspecific mild diffuse marrow edema of the C4 vertebral body, etiology uncertain. The T1 signal does not meet criteria for marrow replacement. Consider six month follow-up MRI or comparison with any remote MRI examinations. Degenerative endplate changes of C6 and C7. Grossly patent central canal. Inflammatory changes of the right mastoid air cells. Report Dictated on Electronically Signed By: Lincoln Miller MD Electronically Signed Date/Time: 11/02/2024 4:04 PM EST [facility] Radiology Study observation (narrative) [facility] Cervical spine WO contras tOrdered By: Lincoln Miller on 11-02-2024 [employer] Work Phone: [phone] 10-30-2024 37 We will notify you once we have approval from your insurance. You will then call central scheduling at [phone] to schedule. Please call our office at [phone] once MRI is scheduled to schedule a follow up visit with Dr. Mann for review. Normal [facility] Office Visiton 10-30-2024 Follow-up visit [id number] Ras Joseph 1955 F Date Provider Department Center 10/30/2024 [id number] [facility] OR None Family History Problem Relation Age of Onset Breast cancer Mother's Sister Substance Abuse Mother Heart disease Father Heart disease Mother Family Status - Relation Status Age at Mother's Sister Mother Alive Father Level of Service:53368 OR OFFICE/OUTPATIENT NEW MODERATE MDM 45 MINUTES Reason for Visit and Comments: Back Pain [12] New Patient [542] Normal [facility] Progress Noteon 10-30-2024 Progress Note [facility] [place] [address] [facility] [address] Dept: [phone] Dept Kamila Joseph 1955 [id number] 10/30/2024 Problem List: Neck pain Cervical myelopathy Cervical degenerative disc disease Cervical spondylosis Lumbar pain Lumbar degenerative disc disease Lumbar spondylosis (M54.2) Neck pain (G95.9) Cervical myelopathy (HCC) (M50.30) DDD (degenerative disc disease), cervical (M47.812) Cervical spondylosis (M54.50) Lumbar pain (M51.360) Degeneration of intervertebral disc of lumbar region with discogenic back pain (M47.816) Lumbar spondylosis Chief Complaint Patient presents with Back Pain New Patient HPI: Kamila is a 69 y.o. female who is here today for evaluation of her lumbar spine. Kamila is referred by Adriane Hubbard AP* Current symptoms: Pain is located in the low back that is radiating no. Numbness tingling: no Weakness: no PRASHANT: no known injury Duration of symptoms/DOI: chronic Symptoms are moderately affecting their quality of life. Associated neurologic complaints/Red flags: Gait/balance difficulty: has Use of ambulatory aid?: no device Able to walk a city block: No Bowel/bladder incontinence: has Urinary retention: No Saddle anesthesia: No Fine motor task difficulty/dropping things/handwriting changes: has History of cancer: No Aggravating factors: All activities when it hurts Alleviating Factors: NSAIDS Heating pad Do your symptoms improve with lying on your back or side: Yes Previous Treatment: PT: yes Where: [facility] When: 09/2024 Completed: Yes NSAIDS: Ibuprofen (Advil, Motrin) Injections: No Opioid medications: no Muscle relaxers: no Oral steroids: no Nerve medications (gabapentin/Lyrica): no Pain management: No Chiropractor: No Previous spine surgery: no History of DVT/PE or hypercoagulable state (including history of relative): no Blood thinning medications: ASA Work Status: Retired Is this a work related injury? No Review of Systems Musculoskeletal: Positive for arthralgias, back pain, gait problem and myalgias. Tobacco Use: Low Risk (10/12/2024) Patient History Smoking Tobacco Use: Never Smokeless Tobacco Use: Never Passive Exposure: Not on file Lab Results Component Value Date HGBA1C 5.8 (H) 10/30/2022 Allergies Allergen Reactions Vraylar [Cariprazine] Involuntary movement Current Outpatient Medications Medication Sig Dispense Refill Ascorbic Acid (vitamin C) 1000 MG tablet Take 1,000 mg by mouth daily. aspirin 81 MG EC tablet Take 81 mg by mouth daily. busPIRone (Buspar) 15 MG tablet TAKE 1 TABLET BY MOUTH TWICE A DAY 180 tablet 1 clonazePAM (KlonoPIN) 0.5 MG tablet Take 0.5 tablets (0.25 mg) by mouth 2 times daily. 30 tablet 0 diphenhydrAMINE (BENADryl) 25 MG tablet Take by mouth. FLUoxetine (PROzac) 40 MG capsule Take 40 mg by mouth daily. folic acid (Folvite) 1 MG tablet TAKE 1 TABLET BY MOUTH EVERY DAY 90 tablet 1 lisinopril 2.5 MG tablet Take 2.5 mg by mouth daily. metoprolol succinate XL (Toprol-XL) 25 MG 24 hr tablet TAKE 1 TABLET BY MOUTH EVERY DAY 90 tablet 1 Multiple Vitamin (multivitamin) tablet Take 1 tablet by mouth daily. simvastatin (Zocor) 40 MG tablet TAKE 1 TABLET BY MOUTH EVERY DAY NIGHTLY 90 tablet 1 valbenazine tosylate (Ingrezza) 40 MG capsule Take 1 capsule (40 mg) by mouth daily. 30 capsule 3 No current facility-administered medications for this visit. Past Medical History: Diagnosis Date Benign paroxysmal positional vertigo due to bilateral vestibular disorder 05/01/2022 Depression GERD (gastroesophageal reflux disease) Greater trochanteric bursitis of right hip 05/01/2022 Heat intolerance Hyperlipidemia Hypertension IBS (irritable bowel syndrome) Inflamed sebaceous cyst 05/23/2021 Insomnia Sleep apnea Past Surgical History: Procedure Laterality Date COLONOSCOPY 5 years ago COLONOSCOPY W/ BIOPSIES 08/11/2024 Performed by Mason Haynes MD at [facility] COLONOSCOPY W/ BIOPSIES AND POLYPECTOMY N/A 08/11/2024 Performed by Mason Haynes MD at [facility] ENDOSCOPY TONSILLECTOMY (HISTORICAL) WRIST SURGERY Social History Socioeconomic History Marital status: Spouse name: Not on file Number of children: Not on file Years of education: Not on file Highest education level: Not on file Occupational History Not on file Tobacco Use Smoking status: Never Smokeless tobacco: Never Vaping Use Vaping status: Never Used Substance and Sexual Activity Alcohol use: No Drug use: No Sexual activity: Defer Other Topics Concern Not on file Social History Narrative Not on file Social Drivers of Health Financial Resource Strain: Low Risk (12/30/2023) Overall Financial Resource Strain (CARDIA) Difficulty of Paying Living Expenses: Not hard at all Food Insecurity: No Food Insecurity (12/30/2023) Hu (more content not included)... [facility] XR CERVICAL SPINE COMPLETE 4 -5 VIEWSon 10-30-2024 XR CERVICAL SPINE COMPLETE 4-5 VIEWS There is no carotid artery calcifications noted. No abnormal pre-vertebral swelling. No obvious fracture or instability. No congenital stenosis. Maintenance of normal cervical lordosis noted. Mild multi-level degenerative disc disease noted with moderate degenerative changes at C6-C7. There are moderate spondylitic changes and facet arthropathy noted. [facility] XR Cervical spine 4 or 5 Vie wson 10-30-2024 There is no carotid artery calcifications noted. No abnormal pre-vertebral swelling. No obvious fracture or instability. No congenital stenosis. Maintenance of normal cervical lordosis noted. Mild multi-level degenerative disc disease noted with moderate degenerative changes at C6-C7. There are moderate spondylitic changes and facet arthropathy noted. [facility] Radiology Study observation (narrative) Miguel Angel collado 36on 10-22-2024 36 Spoke to patient, no questions. [facility] 36 Atherosclerosis- she has some plaque buildup in there arteries (no treatment other than keeping blood pressure good, cholesterol levels good), possible small kidney stone on the right (punctate means that it is very small and not an issue), looks like surgical clips for a tubal ligation (those stay in) [facility] 36 ----- Message from SOO Grant CNP sent at 10/22/2024 12:28 PM EST ----- Lumbar spine shows degenerative changes. Since physical therapy has not helped much, recommend considering a referral to ortho spine for further evaluation. Notified, agrees to referral. Also asking what this means on the report: 2. Marked aortoiliac calcific atherosclerosis, probable tubal ligation clips in pelvis, question of possible punctate right renal calculus. As she saw this on mychart. [facility] Office Visiton 10-12-2024 Follow-up visit [id number] Ras Joseph Marin 1955 F Date Provider Department Center 10/12/2024 [id number] [place] [facility] Family History Problem Relation Age of Onset Breast cancer Mother's Sister Substance Abuse Mother Heart disease Father Heart disease Mother Family Status - Relation Status Age at Mother's Sister Mother Alive Father Level of Service:00349 OR OFFICE/OUTPATIENT ESTABLISHED MOD [facility] 30 MIN Reason for Visit and Comments: Follow-up [889717] - Is also wanting a UA, sx's being, lower back side pain, More frequent urination, no pain when urinating. [facility] Progress Noteon 10-12-2024 Progress Note UA unremarkable. Recommend retrying the bladder retraining and using alarms to assist with bathroom breaks. If symptoms not improving would recommend following up with urology [facility] Progress Note Stable. Managed by psychiatry continue current medications [facility] Progress Note Controlled. Blood pressure 137/83, continue metoprolol 25 mg daily and lisinopril 2.5 mg daily [facility] Progress Note X-ray was negative. Has had gradual improvement. Continue home physical therapy exercises. [facility] Progress Note Poorly controlled. Recommend restarting bladder retraining, recommend using an alarm to assist with scheduled voiding. UA unremarkable for UTI. [facility] Progress Note Patient verified by last name and . [facility] Progress Note 10/12/2024 Kamila Joseph (: 1955) is a 69 y.o. female , Established patient, here for evaluation of the following chief complaint(s): Follow-up (Is also wanting a UA, sx's being, lower back side pain, More frequent urination, no pain when urinating. ) ASSESSMENT/PLAN: 1. Acute pain of right shoulder Assessment & Plan: X-ray was negative. Has had gradual improvement. Continue home physical therapy exercises. 2. Urinary tract infection symptoms Assessment & Plan: UA unremarkable. Recommend retrying the bladder retraining and using alarms to assist with bathroom breaks. If symptoms not improving would recommend following up with urology Orders: - POCT urinalysis dipstick manually resulted 3. Mixed stress and urge urinary incontinence Assessment & Plan: Poorly controlled. Recommend restarting bladder retraining, recommend using an alarm to assist with scheduled voiding. UA unremarkable for UTI. 4. Chronic midline low back pain without sciatica Assessment & Plan: Patient has had continued low back pain with midline tenderness. Has completed physical therapy without significant improvement. Will obtain imaging for further evaluation. Orders: - XR lumbar spine 4-5 view 5. Essential hypertension Assessment & Plan: Controlled. Blood pressure 137/83, continue metoprolol 25 mg daily and lisinopril 2.5 mg daily 6. Major depressive disorder with single episode, in partial remission (HCC) Assessment & Plan: Stable. Managed by psychiatry continue current medications Requires extended office visit Follow up in about 2 months (around 12/13/2024). SUBJECTIVE/OBJECTIVE: LIZTEH Joseph (: 1955) is a 69 y.o. female , Established patient, here for the evaluation of the following chief complaint(s): Follow-up (Is also wanting a UA, sx's being, lower back side pain, More frequent urination, no pain when urinating. ) Patient presents for follow-up urinary frequency, continued low back pain on the left side. Right shoulder pain. Reports that she has had no additional falls since we saw her last. Her right shoulder pain has improved and she is doing her home exercises. She continues to have problems with urinary frequency and urgency. Last visit we discussed doing bladder retraining. She states that it did not work, however was forgetting to go to the bathroom when scheduled. Low left back pain waxes and wanes radiates into the left buttock, denies any pain or radiation down the legs. She sees neurology for movement disorder secondary to psychiatric medication. Reports her movement disorder has mostly resolved in regards to tardive dyskinesia, they decreased her Ingrezza from 80-40 a couple weeks ago to see if it would help with her Parkinson like movements. She states the physical therapy for her gait training was not beneficial so she stopped going. She sees psychiatry and reports that overall her mood and anxiety has been okay. She sees the neurologist and the psychiatrist again in November. Prior to Admission medications Medication Sig Start Date End Date Taking? Authorizing Provider Ascorbic Acid (vitamin C) 1000 MG tablet Take 1,000 mg by mouth daily. 08/06/23 Yes Historical Provider, aspirin 81 MG EC tablet Take 81 mg by mouth daily. Yes Historical Provider, busPIRone (Buspar) 15 MG tablet TAKE 1 TABLET BY MOUTH TWICE A DAY 03/05/24 Yes SOO Hunter CNP clonazePAM (KlonoPIN) 0.5 MG tablet Take 0.5 tablets (0.25 mg) by mouth 2 times daily. 10/16/23 09/08/25 Yes SOO Grant CNP diphenhydrAMINE (BENADryl) 25 MG tablet Take by mouth. Yes Historical Provider, FLUoxetine (PROzac) 40 MG capsule Take 40 mg by mouth daily. Yes Historical Provider, folic acid (Folvite) 1 MG tablet TAKE 1 TABLET BY MOUTH EVERY DAY 09/03/24 Yes SOO Grant CNP lisinopril 2.5 MG tablet Take 2.5 mg by mouth daily. 08/13/22 Yes Historical Provider, metoprolol succinate XL (Toprol-XL) 25 MG 24 hr tablet TAKE 1 TABLET BY MOUTH EVERY DAY 09/07/24 Yes Juvencio Davila MD Multiple Vitamin (multivitamin) tablet Take 1 tablet by mouth daily. Yes Historical Provider, simvastatin (Zocor) 40 MG tablet TAKE 1 TABLET BY MOUTH EVERY DAY NIGHTLY 07/06/24 Yes Juvencio Davila MD valbenazine tosylate (Ingrezza) 40 MG capsule Take 1 capsule (40 mg) by mouth daily. 09/14/24 09/14/25 Yes Jie Miranda MD Review of Systems Constitutional: Negative for activity change, chills, fatigue and fever. Respiratory: Negative. Cardiovascular: Negative. Gastrointestinal: Negative. Genitourinary: Positive for frequency. Negative for difficulty urinating. Musculoskeletal: Positive for arthralgias, back pain and gait problem. Neurological: Negative for dizziness, light-headedness and headaches. Psychiatric/Behavioral : Positive for dysphoric mood. Negative for agitation, self-injury, sleep disturbance and suicidal ideas. Th (more content not included)... Normal [facility] Urinalysis macro (dipstick) panel (U)on 10-12-2024 [facility], [facility] Glucose, UA Negative [facility] Ketones, POC (mg/dL) Negative [facility] Leukocytes, UA Trace [facility] Nitrite, UA Negative [facility] pH, UA 6.5 [facility] Protein, UA Trace [facility] Spec Grav, UA 1.015 [facility] Urob[facility], UA 0.2 [facility] Office Visiton 09-14-2024 Follow-up visit [id number] Ras Joseph 1955 F Date Provider Department Center 09/14/2024 JIE MUSE [facility] NE[facility] P None Family History Problem Relation Age of Onset Breast cancer Mother's Sister Substance Abuse Mother Heart disease Father Heart disease Mother Family Status - Relation Status Age at Mother's Sister Mother Alive Father Level of Service:93926 OR OFFICE/OUTPATIENT ESTABLISHED MOD [facility] 30 MIN Reason for Visit and Comments: Follow-up [838771] Parkinson's Disease [385] Normal [facility] Progress Noteon 09-14-2024 Progress Note Department of Neurological Sciences Visit Note CHIEF COMPLAINT: Chief Complaint Patient presents with Follow-up Parkinson's Disease Main diagnoses: Tardative dyskinesia, parkinsonism HISTORY OF PRESENT ILLNESS: The patient is a 69 y.o. female today presents to the Neurology clinic for follow up of parkinson's disease. She is accompanied by her daughter today for the visit. The patient reports she has good days and bad days. She apparently had a fall in the shower last week. She is on Ingrezza 80 mg to control dyskinesia of her mouth. She no longer is exhibiting these. Now her main problem really is resting tremor associated with gait disorder specifically shuffling as well as decreased arm swing. Thank you we will decrease Ingrezza to 40 mg to see if this improves the patients walking and balance for her. She is also prescribed Clonazepam 0.25 by psychiatry along with Buspar. Secundary diagnoses: Parkinsonism. Depression Medications: Current Outpatient Medications Medication Sig Dispense Refill Ascorbic Acid (vitamin C) 1000 MG tablet Take 1,000 mg by mouth daily. aspirin 81 MG EC tablet Take 81 mg by mouth daily. busPIRone (Buspar) 15 MG tablet TAKE 1 TABLET BY MOUTH TWICE A DAY 180 tablet 1 clonazePAM (KlonoPIN) 0.5 MG tablet Take 0.5 tablets (0.25 mg) by mouth 2 times daily. 30 tablet 0 diphenhydrAMINE (BENADryl) 25 MG tablet Take by mouth. FLUoxetine (PROzac) 40 MG capsule Take 40 mg by mouth daily. folic acid (Folvite) 1 MG tablet TAKE 1 TABLET BY MOUTH EVERY DAY 90 tablet 1 lisinopril 2.5 MG tablet Take 2.5 mg by mouth daily. metoprolol succinate XL (Toprol-XL) 25 MG 24 hr tablet TAKE 1 TABLET BY MOUTH EVERY DAY 90 tablet 1 Multiple Vitamin (multivitamin) tablet Take 1 tablet by mouth daily. simvastatin (Zocor) 40 MG tablet TAKE 1 TABLET BY MOUTH EVERY DAY NIGHTLY 90 tablet 1 valbenazine tosylate (Ingrezza) 80 MG capsule Take 1 capsule (80 mg) by mouth daily. 30 capsule 11 methenamine hippurate (Hiprex) 1 g tablet (Patient not taking: Reported on 09/14/2024) valbenazine tosylate (Ingrezza) 40 MG capsule Take 1 capsule (40 mg) by mouth daily. 30 capsule 3 No current facility-administered medications for this visit. Allergies: Vraylar [cariprazine] Social History: Social History Socioeconomic History Marital status: Spouse name: Not on file Number of children: Not on file Years of education: Not on file Highest education level: Not on file Occupational History Not on file Tobacco Use Smoking status: Never Smokeless tobacco: Never Vaping Use Vaping status: Never Used Substance and Sexual Activity Alcohol use: No Drug use: No Sexual activity: Defer Other Topics Concern Not on file Social History Narrative Not on file Social Drivers of Health Financial Resource Strain: Low Risk (12/30/2023) Overall Financial Resource Strain (CARDIA) Difficulty of Paying Living Expenses: Not hard at all Food Insecurity: No Food Insecurity (12/30/2023) Hunger Vital Sign Worried About Running Out of Food in the Last Year: Never true Ran Out of Food in the Last Year: Never true Transportation Needs: No Transportation Needs (12/30/2023) PRAPARE - Transportation Lack of Transportation (Medical): No Lack of Transportation (Non-Medical): No Physical Activity: Inactive (12/30/2023) Exercise Vital Sign Days of Exercise per Week: 0 days Minutes of Exercise per Session: 0 min Stress: Not on file Social Connections: Not on file Intimate Partner Violence: Not on file Housing Stability: Low Risk (12/30/2023) Housing Stability Vital Sign Unable to Pay for Housing in the Last Year: No Number of Places Lived in the Last Year: 1 Unstable Housing in the Last Year: No Family History: Family History Problem Relation Name Age of Onset Breast cancer Mother's Sister Substance Abuse Mother Heart disease Father Heart disease Mother REVIEW OF SYSTEMS: Review of Systems Constitutional: Positive for activity change. HENT: Positive for rhinorrhea. Eyes: Negative. Respiratory: Negative. Cardiovascular: Negative. Gastrointestinal: Negative. Endocrine: Negative. Genitourinary: Negative. Musculoskeletal: Positive for arthralgias and joint swelling. Skin: Negative. Allergic/Immunologic: Negative. Neurological: Positive for tremors, speech difficulty and weakness. Hematological: Bruises/bleeds easily. Psychiatric/Behavioral : Positive for confusion and decreased concentration. The patient is nervous/anxious. PHYSICAL EXAM: Vitals: BP 122/66 (BP Location: Left arm) Pulse 62 Temp 36.3 ?C (97.3 ?F) (Infrared) Ht 5' 2 (1.575 m) Wt 189 lb (85.7 kg) BMI 34.57 kg/m? Physical Exam Constitutional: Appearance: Normal appearance. HENT: Head: Normocephalic and atraumatic. Nose: Nose normal. Mouth/Throat: Mouth: Mucous membranes are moist. Pharynx: Oropharynx is clear. Eyes: General: Vision grossly intact. (more content not included)... Normal [facility] XR Shoulder - right 2 Viewso n 09-09-2024 No fracture or dislocation of the right shoulder is identified. Mild degenerative changes of the right acromioclavicular and glenohumeral joints. Report Dictated on Electronically Signed By: José Miguel Mitchell MD Electronically Signed Date/Time: 09/09/2024 5:46 PM EST [facility] RADIOLOGY SYSTEM Patient Name: KAMILA JOSEPH : 1955 Exam Date/Time: 09/08/2024 11:13 Procedure: XR SHOULDER 2+ VIEWS RIGHT Ordering Provider: HUBBARD REBECCA Reason For Exam: right shoulder pain after fall RIGHT SHOULDER CLINICAL INDICATION: Pain after fall Three views of the right shoulder were obtained. COMPARISON: None. FINDINGS: No fracture or dislocation of the right shoulder is identified. There is no abnormal soft tissue swelling. There is degenerative spurring and loss of joint space at the right acromioclavicular and glenohumeral joints. [facility] José Miguel Mitchell MD - 09/09/2024 Patient Name: KAMILA JOSEPH : 1955 Exam Date/Time: 09/08/2024 11:13 Procedure: XR SHOULDER 2+ VIEWS RIGHT Ordering Provider: HUBBARD REBECCA Reason For Exam: right shoulder pain after fall RIGHT SHOULDER CLINICAL INDICATION: Pain after fall Three views of the right shoulder were obtained. COMPARISON: None. FINDINGS: No fracture or dislocation of the right shoulder is identified. There is no abnormal soft tissue swelling. There is degenerative spurring and loss of joint space at the right acromioclavicular and glenohumeral joints. IMPRESSION: No fracture or dislocation of the right shoulder is identified. Mild degenerative changes of the right acromioclavicular and glenohumeral joints. Report Dictated on Electronically Signed By: José Miguel Mitchell MD Electronically Signed Date/Time: 09/09/2024 5:46 PM EST [facility] [employer] XR Shoulder - right 2 ViewsO rdered By: José Miguel Mitchell on 09-09-2024 [facility] [employer] 29on 09-08-2024 29 Addended by: ADRIANE HUBBARD on: 09/16/2024 06:06 AM Modules accepted: Level of Service Normal [facility] Office Visiton 09-08-2024 Follow-up visit [id number] Ras Joseph 1955 F Date Provider Department Center 09/08/2024 [id number] HUBBARD [facility] [place] [facility] Family History Problem Relation Age of Onset Breast cancer Mother's Sister Substance Abuse Mother Heart disease Father Heart disease Mother Family Status - Relation Status Age at Mother's Sister Mother Alive Father Level of Service:[id number] OR OFFICE/OUTPATIENT ESTABLISHED [facility] 10 MIN Reason for Visit and Comments: Follow-up [[id number]] - Fall- states mat in the shower gave away and she fell, all on Saturday Urinary Incontinence- States that she can't make it to the bathroom when she does have to go.(Gave water for UA as she does not have to go at this time) Normal [facility] Progress Noteon 09-08-2024 Progress Note Poorly controlled. Recommend starting bladder retraining. Reviewed and provided written instruction. Follow up in about 4 weeks. Would not recommend avoiding urinary incontinence medications d/t risks associated with them. Normal [facility] Progress Note Obtain xray to r/o a ny fracture d/t fall. Suspect soft tissue injury and possible rotator cuff tear. Recommend rice x 1 week, then start stretches/exercises provided. If not improving in a couple weeks, would recommend formal physical therapy Normal [facility] Progress Note Patient verified by last name and . Normal [facility] Progress Note 09/08/2024 Kamila Joseph (: 1955) is a 69 y.o. female , Established patient, here for evaluation of the following chief complaint(s): Follow-up (Fall- states mat in the shower gave away and she fell, all on Saturday/Urinary Incontinence- States that she can't make it to the bathroom when she does have to go.(Gave water for UA as she does not have to go at this time) ) ASSESSMENT/PLAN: 1. Acute pain of right shoulder Assessment & Plan: Obtain xray to r/o any fracture d/t fall. Suspect soft tissue injury and possible rotator cuff tear. Recommend rice x 1 week, then start stretches/exercises provided. If not improving in a couple weeks, would recommend formal physical therapy Orders: - XR shoulder 2+ views right 2. Mixed stress and urge urinary incontinence Assessment & Plan: Poorly controlled. Recommend starting bladder retraining. Reviewed and provided written instruction. Follow up in about 4 weeks. Would not recommend avoiding urinary incontinence medications d/t risks associated with them. Follow up in about 3 weeks (around 09/29/2024). SUBJECTIVE/OBJECTIVE: HPI - Kamila Joseph (: 1955) is a 69 y.o. female , Established patient, here for the evaluation of the following chief complaint(s): Follow-up (Fall- states mat in the shower gave away and she fell, all on Saturday/Urinary Incontinence- States that she can't make it to the bathroom when she does have to go.(Gave water for UA as she does not have to go at this time) ) Did not lose consciousness, hurt her right shoulder and lower arm. Did not hit her head. Was able to get up on her own. Did not hurt anything else. Has a bruise on her lower right arm. No bruising on the shoulder. Hurts to lift arm about shoulder height. No numnbess nor tingling Hurts to move the shoulder. Leaks urine with cough and sneezing, can tell when she needs to urinate. Is unable to get to the bathroom in time and leaks urine. Staying dry at nighttime. Usually urinates aobut 8 times per day. Prior to Admission medications Medication Sig Start Date End Date Taking? Authorizing Provider Ascorbic Acid (vitamin C) 1000 MG tablet Take 1,000 mg by mouth daily. 08/06/23 Yes Historical Provider, aspirin 81 MG EC tablet Take 81 mg by mouth daily. Yes Historical Provider, busPIRone (Buspar) 15 MG tablet TAKE 1 TABLET BY MOUTH TWICE A DAY 03/05/24 Yes Shyla Bustillo APRN - [facility] clonazePAM (KlonoPIN) 0.5 MG tablet Take 0.5 tablets (0.25 mg) by mouth 2 times daily. 10/16/23 09/08/25 Yes Adriane Hubbard APRN - [facility] FLUoxetine (PROzac) 40 MG capsule Take 40 mg by mouth daily. Yes Historical Provider, folic acid (Folvite) 1 MG tablet TAKE 1 TABLET BY MOUTH EVERY DAY 09/03/24 Yes SOO Grant CNP lisinopril 2.5 MG tablet Take 2.5 mg by mouth daily. 08/13/22 Yes Historical Provider, methenamine hippurate (Hiprex) 1 g tablet 05/09/23 Yes Historical Provider, metoprolol succinate XL (Toprol-XL) 25 MG 24 hr tablet TAKE 1 TABLET BY MOUTH EVERY DAY 09/07/24 Yes Juvencio Davila MD Multiple Vitamin (multivitamin) tablet Take 1 tablet by mouth daily. Yes Historical Provider, simvastatin (Zocor) 40 MG tablet TAKE 1 TABLET BY MOUTH EVERY DAY NIGHTLY 07/06/24 Yes Juvencio Davila MD valbenazine tosylate (Ingrezza) 80 MG capsule Take 1 capsule (80 mg) by mouth daily. 10/25/23 10/24/24 Yes SOO Mtz CNP folic acid (Folvite) 1 MG tablet TAKE 1 TABLET BY MOUTH EVERY DAY 02/10/24 09/03/24 SOO Grant CNP metoprolol succinate XL (Toprol-XL) 25 MG 24 hr tablet Take 1 tablet (25 mg) by mouth daily. 03/09/24 09/07/24 Juvencio Davila MD Review of Systems Constitutional: Negative for activity change, fatigue and fever. Respiratory: Negative. Cardiovascular: Negative. Genitourinary: Positive for frequency and urgency. Negative for difficulty urinating, dysuria, flank pain, hematuria, pelvic pain, vaginal bleeding, vaginal discharge and vaginal pain. Musculoskeletal: Positive for arthralgias (right shoulder). Vitals: 09/08/24 1001 BP: 139/71 BP Location: Right arm Patient Position: Sitting Pulse: 59 SpO2: 93% Weight: 189 lb 6.4 oz (85.9 kg) Height: 5' 2 (1.575 m) Physical Exam Constitutional: General: She is not in acute distress. Appearance: Normal appearance. She is not ill-appearing. Cardiovascular: Rate and Rhythm: Normal rate and regular rhythm. Pulses: Normal pulses. Heart sounds: Normal heart sounds. Pulmonary: Effort: Pulmonary effort is normal. Breath sounds: Normal breath sounds. Musculoskeletal: Right shoulder: Tenderness present. No bony tenderness or crepitus. Decreased range of motion. Normal strength. Left shoulder: Normal. Comments: + apley scratch. No bruising noted. Skin: General: Skin is warm and dry. Findings: Bruising (right lower arm) present. Neurological: Mental Status: She is alert and oriented to person, pl (more content not included)... Normal [facility] XR Shoulder - right 2 Viewso n 09-08-2024 Radiology Study observation (narrative) Miguel Angel collado 36on 09-07-2024 36 Prescription Request : Last medication check: 07/08/24 Last physical exam: 12/30/23 Next scheduled appointment: 12/30/24 Last date of refill on this medication 03/09/24 90 and 1 refill Normal [facility] MR/BMS.BPon 09-07-2024 MR/BMS.BP [facility] [address] [place] [address], [place] [address] OFFICE VISIT Date of Service: 09/07/24 MR#: [id number] Acct: [id number] Name: KAMILA JOSEPH Rep #: [id number] : 1955 Provider: Dr. Andrew Cobian se, DO Age/Sex: 69/F [place] [facility] Status: Signed Intake Vital Signs 06/09/24 11:37 09/07/24 10:00 Height 5 ft 2 in 5 ft 2 in BP 128/81 H Blood Pressure Location Lt radial Position Sitting Respiration 16 Pulse 59 L Pulse Source Monitor BP Intake Visit Reasons: 2-3MFU Accompanied by: Daughter [facility] Allergy (Mild, Verified 09/07/24 10:00) DIZZINESS Medications ???Medication ???Instructions ???Recorded ???Confirmed ???Type folic acid 1 mg tablet 1 mg PO DAILY SUPPLEMENT 02/23/19 09/07/24 History multivitamin with folic acid 400 1 tab PO DAILY supplement 02/23/19 09/07/24 History mcg tablet simvastatin 40 mg tablet 40 mg PO QHS CHOLESTEROL 02/23/19 09/07/24 History aspirin 81 mg tablet,delayed 81 mg PO DAILY 01/03/23 09/07/24 History release metoprolol succinate 25 mg See Rx Instructions .Route 03/31/23 09/07/24 Rx tablet,extended release 24 hr .COMPLEX #90 tabs ascorbic acid (vitamin C) 1,000 mg 1 g PO QHS 06/11/23 09/07/24 History tablet (Vitamin C) diphenhydramine HCl 25 mg tablet 25 mg PO QHS PRN 12/04/23 09/07/24 History (Benadryl Allergy) valbenazine 80 mg capsule mg PO 12/04/23 09/07/24 History (Ingrezza) clonazepam 0.5 mg tablet 0.25 mg (1/2 x 0.5 mg) PO BID 30 05/04/24 09/07/24 Rx days #30 tabs buspirone 15 mg tablet 15 mg PO BID 90 days #180 tabs 06/09/24 09/07/24 Rx fluoxetine 40 mg capsule 40 mg PO DAILY 90 days #90 caps 06/09/24 09/07/24 Rx lisinopril 2.5 mg tablet 2.5 mg PO DAILY #90 TABLETS 09/04/24 09/07/24 Rx Have you fallen in the past year?: Yes PENDING SALE TO [facility] Medical History (Updated 06/09/24 @ 12:[address] Andrew Argueta, DO) MDD (major depressive disorder) Major depressive disorder in full remission History of uterine ablation Atrial tachycardia TERESA (obstructive sleep apnea) Depression Essential hypertension Cardiomyopathy Congestive heart failure Infection due to ESBL-producing Escherichia coli Lower back pain Surgical History History of tonsillectomy History of carpal tunnel surgery Family History Mother Heart disease Father Heart disease Brother Heart disease Social History Smoking Status: Never smoker alcohol intake: never substance use type: does not use caffeine: Yes (occasionally) HPI History of Present Illness History provided by: patient HPI: Kamila Joseph is a 69 year old female who presents today for follow up evaluation. Patient does present today with her daughter. Patient reports that she has been doing ok. Daughter still has been helping with scheduling appointments and grocery shopping despite having moved to [place]. Reports that she has been just existing. Does elaborate this probably means that she is depressed, but does feel somewhat sad. Has some trouble sleeping and finds that she sleeps for about 12 broken hours, but has been reducing how many naps she has been taking. Possibly somewhat improved since increase fluoxetine. Still having some occasional hot flashes. Appetite has been stable. Denies SI/HI or AVH. Patient demonstrates some psychomotor slowing today. Denies SI/HI or AVH. Review of Systems Constitutional Reports: other (hot/cold flashes); Denies: fever(s), chills, change in weight or fatigue Eyes Denies: change in vision or blurry vision Ears, Nose, Mouth, Throat Denies: throat pain, neck pain or change in hearing Cardiovascular Denies: chest pain, palpitations or dyspnea Respiratory Denies: dyspnea, cough or wheezing Gastrointestinal Denies: abdominal pain, nausea, vomiting, diarrhea or constipation Genitourinary Denies: dysuria or urinary frequency Musculoskeletal Denies: back pain, neck pain, joint pain or muscle weakness Integumentary/Breast Denies: rash or new lesions Neurological Reports: involuntary movements (Mild orofacial movements noted); Denies: headache(s), dizziness or confusion Endocrine Reports: excessive sweating; Denies: fatigue Hematologic/Lymphatic Denies: easy bruising or easy bleeding Allergic/Immunologic Denies: wheezing Exam Mental Status Exam - Psych Appearance casually dressed Attitude withdrawn Activity/Motor Behavior psychomotor slowing, dyskinesia (Mild orofacial movement noted) and other (Bradykinesia) Speech regular rate, regular volume, regular prosody and slurred (Very mildly slurred) Mood depressed Affect flat Thought Process linear, logic (more content not included)... Normal [facility] 36on 09-03-2024 36 Reviewed chart. Refi ll appropriate. RX sent. Normal [facility] 36 Prescription Request : Last medication check: 07/08/24 Last physical exam: 12/30/23 Next scheduled appointment: 12/30/24 Last date of refill on this medication 02/10/24 Normal [facility] Urinalysis macro (dipstick) panel (U)on 07-08-2024 Bilirubin, UA Negative [facility] h Blood, UA Trace [facility] Glucose, UA Negative [facility] Interpretation and review of laboratory results Abnormal [facility] Ketones, POC (mg/dL) Negative [facility] Leukocytes, UA Moderate [facility] Nitrite, UA Negative [facility] pH, UA 8.5 [facility] Protein, UA Negative [facility] Spec Grav, UA 1.005 [facility] Urobilinogen, UA 0.2 Miguel Angel collado [facility] Urinalysis macro (dipstick) panel (U)on 03-23-2024 [facility], [facility] Blood, [facility]A Trace [facility] Glucose, UA Negative [facility] Ketones, POC (mg/dL) Negative [facility] Leukocytes, UA Trace [facility] th Nitrite, UA Negative [facility] pH, UA 7.0 [facility] Protein, UA Negative [facility] Spec Grav, UA 1.010 [facility] Urobilinogen, UA 0.2 [facility] Gene collado [facility] Radiology Study observation (narrative) Jose Gene collado Cobalamin (Vitamin B12) [Mas s/Vol]on 08-23-2023 Interpretation and review of laboratory results Normal [facility] Laboratory - Chemistry and C hemistry - challengeon 08-23-2023 Cobalamin (Vitamin B12) [Mass/Vol] 467 pg/mL 239 - 931 pg/mL [facility] TSHon 08-23-2023 TSH Qn 3.950 m[IU]/L [facility] TSH Qnon 08-23-2023 Interpretation and review of laboratory results Normal [facility] Vital Signs Date Time Vital Sign Value Performing Clinician Facility 03-08-2025 10:01-0400 Body mass index (BMI) [Ratio] 33.4 kg/m2 Adriane Hubbard PERSONNEL GENERALIST MANAGER - SOIL F[employer]ILITY EXTENSION SPECIALIST Work Phone: [facility] 03-08-2025 10:01-0400 Body temperature 98.91 [degF] Adriane Hubbard PERSONNEL GENERALIST MANAGER - SOIL FERTILITY EXTENSION SPECIALIST Work Phone: [facility] 03-08-2025 10:01-0400 Body weight 82.83 kg Adriane Hubbard PERSONNEL GENERALIST MANAGER - SOIL FERTILITY EXTENSION SPECIALIST Work Phone: [facility] 03-08-2025 10:01-0400 Diastolic blood pressure 72 mm[Hg] Adriane Hubbard PERSONNEL GENERALIST MANAGER - SOIL FERTILITY EXTENSION SPECIALIST Work Phone: [facility] 03-08-2025 10:01-0400 Heart rate 82 /min Adrianeslime Valdezenthal PERSONNEL GENERALIST MANAGER - SOIL FERTILITY EXTENSION SPECIALIST Work Phone: [facility] [employer] 03-08-2025 10:01-0400 Respiratory rate 18 /min Adriane Bridenthal PERSONNEL GENERALIST MANAGER - SOIL FERTILITY EXTENSION SPECIALIST Work Phone: [facility] [employer] 03-08-2025 10:01-0400 SaO2% (BldA) [Mass fraction] 96 % Adriane Bridenthal PERSONNEL GENERALIST MANAGER - SOIL FERTILITY EXTENSION SPECIALIST Work Phone: [facility] [employer] 03-08-2025 10:01-0400 Systolic blood pressure 117 mm[Hg] Adriane Bridenthal PERSONNEL GENERALIST MANAGER - SOIL FERTILITY EXTENSION SPECIALIST Work Phone: [facility] [employer] 02-10-2025 08:29-0400 Body height 157.5 cm Jie Miranda MD Work Phone: [facility] [employer] 02-10-2025 08:29-0400 Body mass index (BMI) [Ratio] 33.29 kg/m2 Jie Miranda MD Work Phone: [facility] [employer] 02-10-2025 08:29-0400 Body weight 82.56 kg Jie Miranda MD Work Phone: [facility] [employer] 02-10-2025 08:29-0400 Diastolic blood pressure 78 mm[Hg] Jie Miranda MD Work Phone: [facility] [employer] 02-10-2025 08:29-0400 Systolic blood pressure 124 mm[Hg] Jie Miranda MD Work Phone: [facility] [employer] 01-01-2025 11:26-0400 Body height 157.5 cm Jie Miranda MD Work Phone: [facility] [employer] 01-01-2025 11:26-0400 Body mass index (BMI) [Ratio] 33.29 kg/m2 Jie Miranda MD Work Phone: [facility] [employer] 01-01-2025 11:26-0400 Body weight 82.56 kg Jie Miranda MD Work Phone: [facility] [employer] 01-01-2025 11:26-0400 Diastolic blood pressure 68 mm[Hg] Jie Miranda MD Work Phone: [facility] [employer] 01-01-2025 11:26-0400 Systolic blood pressure 120 mm[Hg] Jie Miranda MD Work Phone: [facility] [employer] 12-28-2024 14:34-0400 Body height 157.5 cm Adriane Bridenthal PERSONNEL GENERALIST MANAGER - SOIL FERTILITY EXTENSION SPECIALIST Work Phone: [facility] [employer] 12-28-2024 14:34-0400 Body mass index (BMI) [Ratio] 33.29 kg/m2 Adriane Bridenthal PERSONNEL GENERALIST MANAGER - SOIL FERTILITY EXTENSION SPECIALIST Work Phone: [facility] [employer] 12-28-2024 14:34-0400 Body weight 82.56 kg Adriane Bridenthal PERSONNEL GENERALIST MANAGER - SOIL FERTILITY EXTENSION SPECIALIST Work Phone: [facility] [employer] 12-10-2024 13:27-0500 Body height 157.5 cm Tristin Wilcox MD Work Phone: [facility] [employer] 12-10-2024 13:27-0500 Body mass index (BMI) [Ratio] 33.29 kg/m2 Tristin Wilcox MD Work Phone: [facility] [employer] 12-10-2024 13:27-0500 Body weight 82.56 kg Tristin Wilcox MD Work Phone: [facility] [employer] 12-08-2024 15:06-0500 Body height 157.5 cm Peng Mann MD Work Phone: [facility] [employer] 12-08-2024 15:06-0500 Body mass index (BMI) [Ratio] 33.29 kg/m2 Peng Mann MD Work Phone: [facility] [employer] 12-08-2024 15:06-0500 Body weight 82.56 kg Peng Mann MD Work Phone: [facility] [employer] 12-08-2024 08:40-0500 Body height 157.5 cm Adriane Bridenthal PERSONNEL GENERALIST MANAGER - SOIL FERTILITY EXTENSION SPECIALIST Work Phone: [facility] [employer] 12-08-2024 08:40-0500 Body mass index (BMI) [Ratio] 33.32 kg/m2 Adriane Bridenthal PERSONNEL GENERALIST MANAGER - SOIL FERTILITY EXTENSION SPECIALIST Work Phone: [facility] [employer] 12-08-2024 08:40-0500 Body temperature 98.29 [degF] Adriane Bridenthal PERSONNEL GENERALIST MANAGER - SOIL FERTILITY EXTENSION SPECIALIST Work Phone: [employer] 12-08-2024 08:40-0500 Body weight 82.64 kg Adriane Bridenthal PERSONNEL GENERALIST MANAGER - SOIL FERTILITY EXTENSION SPECIALIST Work Phone: [employer] 12-08-2024 08:40-0500 Diastolic blood pressure 81 mm[Hg] Adriane Bridenthal PERSONNEL GENERALIST MANAGER - SOIL FERTILITY EXTENSION SPECIALIST Work Phone: [employer] 12-08-2024 08:40-0500 Heart rate 58 /min Adriane Bridenthal PERSONNEL GENERALIST MANAGER - SOIL FERTILITY EXTENSION SPECIALIST Work Phone: [employer] 12-08-2024 08:40-0500 Respiratory rate 16 /min Adriane Bridenthal PERSONNEL GENERALIST MANAGER - SOIL FERTILITY EXTENSION SPECIALIST Work Phone: [employer] 12-08-2024 08:40-0500 SaO2% (BldA) [Mass fraction] 94 % Adriane Bridenthal PERSONNEL GENERALIST MANAGER - SOIL FERTILITY EXTENSION SPECIALIST Work Phone: [employer] 12-08-2024 08:40-0500 Systolic blood pressure 137 mm[Hg] Adriane Courtneyenthal PERSONNEL GENERALIST MANAGER - SOIL FERTILITY EXTENSION SPECIALIST Work Phone: [employer] 12-07-2024 15:03-0500 Body height 157.5 cm Jie Miranda MD Work Phone: [employer] 12-07-2024 15:03-0500 Body mass index (BMI) [Ratio] 32.74 kg/m2 Jie Miranda MD Work Phone: [employer] 12-07-2024 15:03-0500 Body weight 81.19 kg Jie Miranda MD Work Phone: [employer] 12-07-2024 15:03-0500 Diastolic blood pressure 70 mm[Hg] Jie Miranda MD Work Phone: [facility] [employer] 12-07-2024 15:03-0500 Systolic blood pressure 116 mm[Hg] Jie Miranda MD Work Phone: [facility] [employer] 12-05-2024 21:34-0500 Diastolic blood pressure 59 mm[Hg] Bud Gombash DO [facility] 12-05-2024 21:34-0500 Heart rate 70 /min Bud Gombash DO [facility] 12-05-2024 21:34-0500 Respiratory rate 18 /min Bud Gombash DO Work Phone: [facility] [employer] 12-05-2024 21:34-0500 SaO2% (BldA) [Mass fraction] 92 % Bud Gombash DO [facility] 12-05-2024 21:34-0500 Systolic blood pressure 118 mm[Hg] Bud Gombash DO Work [facility]: [facility] 12-05-2024 20:31-0500 Body height 157.5 cm Bud Gombash DO Work Phone: [facility] [employer] 12-05-2024 20:31-0500 Body mass index (BMI) [Ratio] 32.74 kg/m2 Bud Gombash DO Work [facility]: [facility] 12-05-2024 20:31-0500 Body temperature 98.49 [degF] Bud Gombash DO Work Phone: [facility] [employer] 12-05-2024 20:31-0500 Body weight 81.19 kg Bud Gombash DO Work Phone: [facility] [employer] 10-30-2024 12:56-0500 Body height 157.5 cm Anjel Larsen PERSONNEL GENERALIST MANAGER - SOIL FERTILITY EXTENSION SPECIALIST Work Phone: [facility] [employer] 10-30-2024 12:56-0500 Body mass index (BMI) [Ratio] 32.74 kg/m2 Anjel Larsen PERSONNEL GENERALIST MANAGER - SOIL FERTILITY EXTENSION SPECIALIST Work Phone: [facility] [employer] 10-30-2024 12:56-0500 Body weight 81.19 kg Anjel Larsen PERSONNEL GENERALIST MANAGER - SOIL FERTILITY EXTENSION SPECIALIST Work Phone: [facility] [employer] 10-12-2024 13:35-0500 Body height 157.5 cm Adrianeslime Valdezenthal PERSONNEL GENERALIST MANAGER - SOIL FERTILITY EXTENSION SPECIALIST Work Phone: [facility] [employer] 10-12-2024 13:35-0500 Body mass index (BMI) [Ratio] 32.89 kg/m2 Adriane Bridenthal PERSONNEL GENERALIST MANAGER - SOIL FERTILITY EXTENSION SPECIALIST Work Phone: [facility] [employer] 10-12-2024 13:35-0500 Body weight 81.56 kg Adriane Courtneyenthal PERSONNEL GENERALIST MANAGER - SOIL FERTILITY EXTENSION SPECIALIST Work Phone: [facility] [employer] 10-12-2024 13:35-0500 Diastolic blood pressure 83 mm[Hg] Adriane Bridenthal PERSONNEL GENERALIST MANAGER - SOIL FERTILITY EXTENSION SPECIALIST Work Phone: [facility] [employer] 10-12-2024 13:35-0500 Heart rate 61 /min Adriane Bridenthal PERSONNEL GENERALIST MANAGER - SOIL FERTILITY EXTENSION SPECIALIST Work Phone: [facility] [employer] 10-12-2024 13:35-0500 SaO2% (BldA) [Mass fraction] 98 % Adriane Bridenthal PERSONNEL GENERALIST MANAGER - SOIL FERTILITY EXTENSION SPECIALIST Work Phone: [facility] [employer] 10-12-2024 13:35-0500 Systolic blood pressure 137 mm[Hg] Adriane Bridenthal PERSONNEL GENERALIST MANAGER - SOIL FERTILITY EXTENSION SPECIALIST Work Phone: [facility] [employer] 09-14-2024 15:10-0500 Body height 157.5 cm Jie Miranda MD Work Phone: [facility] [employer] 09-14-2024 15:10-0500 Body mass index (BMI) [Ratio] 34.57 kg/m2 Jie Miranda MD Work Phone: [facility] [employer] 09-14-2024 15:10-0500 Body temperature 97.3 [degF] Jie Miranda MD Work Phone: [facility] [employer] 09-14-2024 15:10-0500 Body weight 85.73 kg Jie Miranda MD Work Phone: [facility] [employer] 09-14-2024 15:10-0500 Diastolic blood pressure 66 mm[Hg] Jie Miranda MD Work Phone: [facility] [employer] 09-14-2024 15:10-0500 Heart rate 62 /min Jie Miranda MD Work Phone: [facility] [employer] 09-14-2024 15:10-0500 Systolic blood pressure 122 mm[Hg] Jie Miranda MD Work Phone: [facility] [employer] 09-08-2024 10:01-0500 Body height 157.5 cm Adriane Bridenthal PERSONNEL GENERALIST MANAGER - SOIL FERTILITY EXTENSION SPECIALIST Work Phone: [facility] [employer] 09-08-2024 10:01-0500 Body mass index (BMI) [Ratio] 34.64 kg/m2 Adriane Bridenthal PERSONNEL GENERALIST MANAGER - SOIL FERTILITY EXTENSION SPECIALIST Work Phone: [employer] 09-08-2024 10:01-0500 Body weight 85.91 kg Adriane Bridenthal PERSONNEL GENERALIST MANAGER - SOIL FERTILITY EXTENSION SPECIALIST Work Phone: [facility] [employer] 09-08-2024 10:01-0500 Diastolic blood pressure 71 mm[Hg] Adriane Bridenthal PERSONNEL GENERALIST MANAGER - SOIL FERTILITY EXTENSION SPECIALIST Work Phone: [facility] [employer] 09-08-2024 10:01-0500 Heart rate 59 /min Adriane Bridenthal PERSONNEL GENERALIST MANAGER - SOIL FERTILITY EXTENSION SPECIALIST Work Phone: [employer] 09-08-2024 10:01-0500 SaO2% (BldA) [Mass fraction] 93 % Adriane Bridenthal PERSONNEL GENERALIST MANAGER - SOIL FERTILITY EXTENSION SPECIALIST Work Phone: [facility] [employer] 09-08-2024 10:01-0500 Systolic blood pressure 139 mm[Hg] Adriane Bridenthal PERSONNEL GENERALIST MANAGER - SOIL FERTILITY EXTENSION SPECIALIST Work Phone: [facility] [employer] 08-11-2024 09:55-0400 Body temperature 97.9 [degF] Mason Haynes MD Work Phone: [facility] [employer] 08-11-2024 09:55-0400 Diastolic blood pressure 69 mm[Hg] Mason Haynes MD Work Phone: [facility] [employer] 08-11-2024 09:55-0400 Heart rate 68 /min Mason Haynes MD Work Phone: [facility] [employer] 08-11-2024 09:55-0400 Respiratory rate 16 /min Mason Haynes MD Work Phone: [facility] [employer] 08-11-2024 09:55-0400 SaO2% (BldA) [Mass fraction] 97 % Mason Haynes MD Work Phone: [facility] [employer] 08-11-2024 09:55-0400 Systolic blood pressure 139 mm[Hg] Mason Haynes MD Work Phone: [facility] [employer] 08-11-2024 08:19-0400 Body mass index (BMI) [Ratio] 33.84 kg/m2 Mason Haynes MD Work Phone: [facility] [employer] 08-11-2024 08:19-0400 Body weight 83.92 kg Mason Haynes MD Work Phone: [facility] [employer] 07-08-2024 11:13-0400 Body mass index (BMI) [Ratio] 33.47 kg/m2 Adriane Jacklynal PERSONNEL GENERALIST MANAGER - SOIL FERTILITY EXTENSION SPECIALIST Work Phone: [facility] [employer] 07-08-2024 11:13-0400 Body temperature 98.6 [degF] Adriane Courtneyenthal PERSONNEL GENERALIST MANAGER - SOIL FERTILITY EXTENSION SPECIALIST Work Phone: [employer] 07-08-2024 11:13-0400 Body weight 83.01 kg Adriane Jacklynal PERSONNEL GENERALIST MANAGER - SOIL FERTILITY EXTENSION SPECIALIST Work Phone: [facility] [employer] 07-08-2024 11:13-0400 Diastolic blood pressure 76 mm[Hg] Adriane Courtneyenthal PERSONNEL GENERALIST MANAGER - SOIL FERTILITY EXTENSION SPECIALIST Work Phone: [facility] [employer] 07-08-2024 11:13-0400 Heart rate 58 /min Adriane Bridenthal PERSONNEL GENERALIST MANAGER - SOIL FERTILITY EXTENSION SPECIALIST Work Phone: [facility] [employer] 07-08-2024 11:13-0400 Respiratory rate 14 /min Adriane Bridenthal PERSONNEL GENERALIST MANAGER - SOIL FERTILITY EXTENSION SPECIALIST Work Phone: [facility] [employer] 07-08-2024 11:13-0400 SaO2% (BldA) [Mass fraction] 97 % Adriane Bridenthal PERSONNEL GENERALIST MANAGER - SOIL FERTILITY EXTENSION SPECIALIST Work Phone: [facility] [employer] 07-08-2024 11:13-0400 Systolic blood pressure 132 mm[Hg] Adriane Bridenthal PERSONNEL GENERALIST MANAGER - SOIL FERTILITY EXTENSION SPECIALIST Work Phone: [facility] [employer] 07-02-2024 14:01-0400 Body height 157.5 cm Jie Miranda MD Work Phone: [facility] [employer] 07-02-2024 14:01-0400 Body mass index (BMI) [Ratio] 30.73 kg/m2 Jie Miranda MD Work Phone: [facility] [employer] 07-02-2024 14:01-0400 Body weight 76.2 kg Jie Miranda MD Work Phone: [facility] [employer] 07-02-2024 14:01-0400 Diastolic blood pressure 68 mm[Hg] Jie Miranda MD Work Phone: [facility] [employer] 07-02-2024 14:01-0400 Heart rate 60 /min Jie Miranda MD Work Phone: [facility] [employer] 07-02-2024 14:01-0400 Systolic blood pressure 124 mm[Hg] Jie Miranda MD Work Phone: [facility] [employer] 04-02-2024 13:43-0400 Body mass index (BMI) [Ratio] 30.73 kg/m2 Violet Castellanos PERSONNEL GENERALIST MANAGER - SOIL FERTILITY EXTENSION SPECIALIST Work Phone: [facility] [employer] 04-02-2024 13:43-0400 Body temperature 97.9 [degF] Violet Castellanos PERSONNEL GENERALIST MANAGER - SOIL FERTILITY EXTENSION SPECIALIST Work Phone: [facility] [employer] 04-02-2024 13:43-0400 Body weight 76.2 kg Violet Castellanos PERSONNEL GENERALIST MANAGER - SOIL FERTILITY EXTENSION SPECIALIST Work Phone: [facility] [employer] 04-02-2024 13:43-0400 Diastolic blood pressure 73 mm[Hg] Violet Castellanos PERSONNEL GENERALIST MANAGER - SOIL FERTILITY EXTENSION SPECIALIST Work Phone: [facility] [employer] 04-02-2024 13:43-0400 Heart rate 66 /min Violet Castellanos PERSONNEL GENERALIST MANAGER - SOIL FERTILITY EXTENSION SPECIALIST Work Phone: [facility] [employer] 04-02-2024 13:43-0400 Systolic blood pressure 127 mm[Hg] Violet Castellanos PERSONNEL GENERALIST MANAGER - SOIL FERTILITY EXTENSION SPECIALIST Work Phone: [facility] [employer] 03-23-2024 13:52-0400 Body height 157.5 cm Adriane Valdezenthal PERSONNEL GENERALIST MANAGER - SOIL FERTILITY EXTENSION SPECIALIST Work Phone: [facility] [employer] 03-23-2024 13:52-0400 Body mass index (BMI) [Ratio] 30.62 kg/m2 Adriane Bridenthal PERSONNEL GENERALIST MANAGER - SOIL FERTILITY EXTENSION SPECIALIST Work Phone: [facility] [employer] 03-23-2024 13:52-0400 Body weight 75.93 kg Adrianeslime Valdezenthal PERSONNEL GENERALIST MANAGER - SOIL FERTILITY EXTENSION SPECIALIST Work Phone: [facility] [employer] 03-23-2024 13:52-0400 Diastolic blood pressure 63 mm[Hg] Adriane Courtneyenthal PERSONNEL GENERALIST MANAGER - SOIL FERTILITY EXTENSION SPECIALIST Work Phone: [facility] [employer] 03-23-2024 13:52-0400 Heart rate 55 /min Adriane Bridenthal PERSONNEL GENERALIST MANAGER - SOIL FERTILITY EXTENSION SPECIALIST Work Phone: [facility] [employer] 03-23-2024 13:52-0400 SaO2% (BldA) [Mass fraction] 99 % Adriane Bridenthal PERSONNEL GENERALIST MANAGER - SOIL FERTILITY EXTENSION SPECIALIST Work Phone: [facility] [employer] 03-23-2024 13:52-0400 Systolic blood pressure 126 mm[Hg] Adriane Bridenthal PERSONNEL GENERALIST MANAGER - SOIL FERTILITY EXTENSION SPECIALIST Work Phone: [facility] [employer] 02-10-2024 11:11-0400 Body height 157.5 cm Adriane Bridenthal PERSONNEL GENERALIST MANAGER - SOIL FERTILITY EXTENSION SPECIALIST Work Phone: [facility] [employer] 02-10-2024 11:11-0400 Body mass index (BMI) [Ratio] 29.78 kg/m2 Adriane Bridenthal PERSONNEL GENERALIST MANAGER - SOIL FERTILITY EXTENSION SPECIALIST Work Phone: [facility] [employer] 02-10-2024 11:11-0400 Body temperature 97.81 [degF] Adriane Bridenthal PERSONNEL GENERALIST MANAGER - SOIL FERTILITY EXTENSION SPECIALIST Work Phone: [facility] [employer] 02-10-2024 11:11-0400 Body weight 73.85 kg Adriane Bridenthal PERSONNEL GENERALIST MANAGER - SOIL FERTILITY EXTENSION SPECIALIST Work Phone: [facility] [employer] 02-10-2024 11:11-0400 Diastolic blood pressure 58 mm[Hg] Adriane Bridenthal PERSONNEL GENERALIST MANAGER - SOIL FERTILITY EXTENSION SPECIALIST Work Phone: [facility] [employer] 02-10-2024 11:11-0400 Heart rate 71 /min Adriane Bridenthal PERSONNEL GENERALIST MANAGER - SOIL FERTILITY EXTENSION SPECIALIST Work Phone: [facility] [employer] 02-10-2024 11:11-0400 SaO2% (BldA) [Mass fraction] 97 % Adriane Bridenthal PERSONNEL GENERALIST MANAGER - SOIL FERTILITY EXTENSION SPECIALIST Work Phone: [facility] [employer] 02-10-2024 11:11-0400 Systolic blood pressure 134 mm[Hg] Adriane Bridenthal PERSONNEL GENERALIST MANAGER - SOIL FERTILITY EXTENSION SPECIALIST Work Phone: [facility] [employer] 12-30-2023 11:11-0400 Body height 160 cm Adriane Bridenthal PERSONNEL GENERALIST MANAGER - SOIL FERTILITY EXTENSION SPECIALIST Work Phone: [facility] [employer] 12-30-2023 11:11-0400 Body mass index (BMI) [Ratio] 27.42 kg/m2 Adriane Bridenthal PERSONNEL GENERALIST MANAGER - SOIL FERTILITY EXTENSION SPECIALIST Work Phone: [facility] [employer] 12-30-2023 11:11-0400 Body temperature 98.01 [degF] Adriane Bridenthal PERSONNEL GENERALIST MANAGER - SOIL FERTILITY EXTENSION SPECIALIST Work Phone: [employer] 12-30-2023 11:11-0400 Body weight 70.22 kg Adriane Villasenoral PERSONNEL GENERALIST MANAGER - SOIL FERTILITY EXTENSION SPECIALIST Work Phone: [facility] [employer] 12-30-2023 11:11-0400 Diastolic blood pressure 76 mm[Hg] Adriane Valdezenthal PERSONNEL GENERALIST MANAGER - SOIL FERTILITY EXTENSION SPECIALIST Work Phone: [employer] 12-30-2023 11:11-0400 Heart rate 71 /min Adriane Valdezenthal PERSONNEL GENERALIST MANAGER - SOIL FERTILITY EXTENSION SPECIALIST Work Phone: [employer] 12-30-2023 11:11-0400 SaO2% (BldA) [Mass fraction] 97 % Adriane Valdezenthal PERSONNEL GENERALIST MANAGER - SOIL FERTILITY EXTENSION SPECIALIST Work Phone: [employer] 12-30-2023 11:11-0400 Systolic blood pressure 119 mm[Hg] Adriane Villasenoral PERSONNEL GENERALIST MANAGER - SOIL FERTILITY EXTENSION SPECIALIST Work Phone: [facility] [employer] 12-06-2023 13:41-0500 Body height 160.7 cm Jie Miranda MD Work Phone: [employer] 12-06-2023 13:41-0500 Body mass index (BMI) [Ratio] 26.71 kg/m2 Jie Miranda MD Work Phone: [facility] [employer] 12-06-2023 13:41-0500 Body temperature 97.2 [degF] Jie Miranda MD Work Phone: [employer] 12-06-2023 13:41-0500 Body weight 68.95 kg Jie Miranda MD Work Phone: [employer] 12-06-2023 13:41-0500 Diastolic blood pressure 74 mm[Hg] Jie Miranda MD Work Phone: [employer] 12-06-2023 13:41-0500 Heart rate 65 /min Jie Miranda MD Work Phone: [employer] 12-06-2023 13:41-0500 Systolic blood pressure 133 mm[Hg] Jie Miranda MD Work Phone: [employer] 11-14-2023 14:34-0500 Body mass index (BMI) [Ratio] 26.82 kg/m2 Adriane Bridenthal PERSONNEL GENERALIST MANAGER - SOIL FERTILITY EXTENSION SPECIALIST Work Phone: [employer] 11-14-2023 14:34-0500 Body temperature 98.4 [degF] Adriane Bridenthal PERSONNEL GENERALIST MANAGER - SOIL FERTILITY EXTENSION SPECIALIST Work Phone: [employer] 11-14-2023 14:34-0500 Body weight 69.22 kg Adriane Bridenthal PERSONNEL GENERALIST MANAGER - SOIL FERTILITY EXTENSION SPECIALIST Work Phone: [employer] 11-14-2023 14:34-0500 Diastolic blood pressure 53 mm[Hg] Adriane Bridenthal PERSONNEL GENERALIST MANAGER - SOIL FERTILITY EXTENSION SPECIALIST Work Phone: [employer] 11-14-2023 14:34-0500 Heart rate 73 /min Adriane Bridenthal PERSONNEL GENERALIST MANAGER - SOIL FERTILITY EXTENSION SPECIALIST Work Phone: [employer] 11-14-2023 14:34-0500 Respiratory rate 18 /min Adriane Bridenthal PERSONNEL GENERALIST MANAGER - SOIL FERTILITY EXTENSION SPECIALIST Work Phone: [employer] 11-14-2023 14:34-0500 SaO2% (BldA) [Mass fraction] 96 % Adriane Bridenthal PERSONNEL GENERALIST MANAGER - SOIL FERTILITY EXTENSION SPECIALIST Work Phone: [employer] 11-14-2023 14:34-0500 Systolic blood pressure 117 mm[Hg] Adraine Bridenthal PERSONNEL GENERALIST MANAGER - SOIL FERTILITY EXTENSION SPECIALIST Work Phone: [employer] 10-16-2023 13:54-0500 Body mass index (BMI) [Ratio] 27.06 kg/m2 Adriane Bridenthal PERSONNEL GENERALIST MANAGER - SOIL FERTILITY EXTENSION SPECIALIST Work Phone: [facility] [employer] 10-16-2023 13:54-0500 Body temperature 97.3 [degF] Adriane Bridenthal PERSONNEL GENERALIST MANAGER - SOIL FERTILITY EXTENSION SPECIALIST Work Phone: [employer] 10-16-2023 13:54-0500 Body weight 69.85 kg Adriane Bridenthal PERSONNEL GENERALIST MANAGER - SOIL FERTILITY EXTENSION SPECIALIST Work Phone: [facility] [employer] 10-16-2023 13:54-0500 Diastolic blood pressure 72 mm[Hg] Adriane Bridenthal PERSONNEL GENERALIST MANAGER - SOIL FERTILITY EXTENSION SPECIALIST Work Phone: [facility] [employer] 10-16-2023 13:54-0500 Heart rate 79 /min Adriane Bridenthal PERSONNEL GENERALIST MANAGER - SOIL FERTILITY EXTENSION SPECIALIST Work Phone: [facility] [facility] 10-16-2023 13:54-0500 Respiratory rate 20 /min Adriane Bridenthal PERSONNEL GENERALIST MANAGER - SOIL FERTILITY EXTENSION SPECIALIST Work Phone: [facility] [employer] 10-16-2023 13:54-0500 SaO2% (BldA) [Mass fraction] 99 % Adriane Bridenthal PERSONNEL GENERALIST MANAGER - SOIL FERTILITY EXTENSION SPECIALIST Work Phone: [facility] [employer] 10-16-2023 13:54-0500 Systolic blood pressure 118 mm[Hg] Adriane Bridenthal PERSONNEL GENERALIST MANAGER - SOIL FERTILITY EXTENSION SPECIALIST Work Phone: [facility] [employer] 09-17-2023 14:11-0500 Body mass index (BMI) [Ratio] 27.06 kg/m2 Adriane Bridenthal PERSONNEL GENERALIST MANAGER - SOIL FERTILITY EXTENSION SPECIALIST Work Phone: [facility] [employer] 09-17-2023 14:11-0500 Body temperature 98.6 [degF] Adriane Bridenthal PERSONNEL GENERALIST MANAGER - SOIL FERTILITY EXTENSION SPECIALIST Work Phone: [facility] [employer] 09-17-2023 14:11-0500 Body weight 69.85 kg Adriane Bridenthal PERSONNEL GENERALIST MANAGER - SOIL FERTILITY EXTENSION SPECIALIST Work Phone: [facility] [employer] 09-17-2023 14:11-0500 Diastolic blood pressure 82 mm[Hg] Adriane Bridenthal PERSONNEL GENERALIST MANAGER - SOIL FERTILITY EXTENSION SPECIALIST Work Phone: [facility] [employer] 09-17-2023 14:11-0500 Heart rate 106 /min Adriane Bridenthal PERSONNEL GENERALIST MANAGER - SOIL FERTILITY EXTENSION SPECIALIST Work Phone: [facility] [employer] 09-17-2023 14:11-0500 Respiratory rate 24 /min Adriane Bridenthal PERSONNEL GENERALIST MANAGER - SOIL FERTILITY EXTENSION SPECIALIST Work Phone: [facility] [employer] 09-17-2023 14:11-0500 SaO2% (BldA) [Mass fraction] 98 % Adriane Bridenthal PERSONNEL GENERALIST MANAGER - SOIL FERTILITY EXTENSION SPECIALIST Work Phone: [facility] [employer] 09-17-2023 14:11-0500 Systolic blood pressure 120 mm[Hg] Adriane Bridenthal PERSONNEL GENERALIST MANAGER - SOIL FERTILITY EXTENSION SPECIALIST Work Phone: [facility] [employer] 09-05-2023 08:14-0500 Body temperature 97.3 [degF] Jie Miranda MD Work Phone: [facility] [employer] 09-05-2023 08:14-0500 Diastolic blood pressure 69 mm[Hg] Jie Miranda MD Work Phone: [facility] [employer] 09-05-2023 08:14-0500 Heart rate 66 /min Jie Miranda MD Work Phone: [facility] [employer] 09-05-2023 08:14-0500 Systolic blood pressure 127 mm[Hg] Jie Miranda MD Work Phone: [facility] [employer] 08-19-2023 13:41-0400 Body mass index (BMI) [Ratio] 27.24 kg/m2 Adriane Bridenthal PERSONNEL GENERALIST MANAGER - SOIL FERTILITY EXTENSION SPECIALIST Work Phone: [facility] [employer] 08-19-2023 13:41-0400 Body temperature 97.3 [degF] Adriane Bridenthal PERSONNEL GENERALIST MANAGER - SOIL FERTILITY EXTENSION SPECIALIST Work Phone: [facility] [employer] 08-19-2023 13:41-0400 Body weight 70.31 kg Adriane Bridenthal PERSONNEL GENERALIST MANAGER - SOIL FERTILITY EXTENSION SPECIALIST Work Phone: [facility] [employer] 08-19-2023 13:41-0400 Diastolic blood pressure 50 mm[Hg] Adriane Bridenthal PERSONNEL GENERALIST MANAGER - SOIL FERTILITY EXTENSION SPECIALIST Work Phone: [facility] [employer] 08-19-2023 13:41-0400 Heart rate 58 /min Adriane Bridenthal PERSONNEL GENERALIST MANAGER - SOIL FERTILITY EXTENSION SPECIALIST Work Phone: [facility] [employer] 08-19-2023 13:41-0400 Respiratory rate 18 /min Adriane Bridenthal PERSONNEL GENERALIST MANAGER - SOIL FERTILITY EXTENSION SPECIALIST Work Phone: [facility] [employer] 08-19-2023 13:41-0400 SaO2% (BldA) [Mass fraction] 96 % Adriane Bridenthal PERSONNEL GENERALIST MANAGER - SOIL FERTILITY EXTENSION SPECIALIST Work Phone: [facility] [employer] 08-19-2023 13:41-0400 Systolic blood pressure 98 mm[Hg] Adriane Bridenthal PERSONNEL GENERALIST MANAGER - SOIL FERTILITY EXTENSION SPECIALIST Work Phone: [facility] [employer] 08-01-2023 11:42-0400 Body temperature 97.7 [degF] Jie Miranda MD Work Phone: [facility] [employer] 08-01-2023 11:42-0400 Diastolic blood pressure 79 mm[Hg] Jie Miranda MD Work Phone: [facility] [employer] 08-01-2023 11:42-0400 Heart rate 83 /min Jie Miranda MD Work Phone: [facility] [employer] 08-01-2023 11:42-0400 Systolic blood pressure 106 mm[Hg] Jie Miranda MD Work Phone: [facility] [employer] 07-24-2023 13:04-0400 Body mass index (BMI) [Ratio] 28.08 kg/m2 Adriane Bridenthal PERSONNEL GENERALIST MANAGER - SOIL FERTILITY EXTENSION SPECIALIST Work Phone: [facility] [employer] 07-24-2023 13:04-0400 Body temperature 97.5 [degF] Adriane Bridenthal PERSONNEL GENERALIST MANAGER - SOIL FERTILITY EXTENSION SPECIALIST Work Phone: [facility] [employer] 07-24-2023 13:04-0400 Body weight 72.48 kg Adriane Bridenthal PERSONNEL GENERALIST MANAGER - SOIL FERTILITY EXTENSION SPECIALIST Work Phone: [facility] [employer] 07-24-2023 13:04-0400 Diastolic blood pressure 80 mm[Hg] Adriane Bridenthal PERSONNEL GENERALIST MANAGER - SOIL FERTILITY EXTENSION SPECIALIST Work Phone: [facility] [employer] 07-24-2023 13:04-0400 Heart rate 82 /min Adriane Courtneyenthal PERSONNEL GENERALIST MANAGER - SOIL FERTILITY EXTENSION SPECIALIST Work Phone: [facility] [employer] 07-24-2023 13:04-0400 Respiratory rate 24 /min Adriane Bridenthal PERSONNEL GENERALIST MANAGER - SOIL FERTILITY EXTENSION SPECIALIST Work Phone: [facility] [employer] 07-24-2023 13:04-0400 SaO2% (BldA) [Mass fraction] 99 % Adriane Bridenthal PERSONNEL GENERALIST MANAGER - SOIL FERTILITY EXTENSION SPECIALIST Work Phone: [facility] [employer] 07-24-2023 13:04-0400 Systolic blood pressure 130 mm[Hg] Adriane Courtneyenthal PERSONNEL GENERALIST MANAGER - SOIL FERTILITY EXTENSION SPECIALIST Work Phone: [facility] [employer] 06-27-2023 15:24-0400 Body height 160.7 cm Juvencio Davila MD Work Phone: [facility] [employer] 06-27-2023 15:24-0400 Body mass index (BMI) [Ratio] 28.15 kg/m2 Juvencio Davila MD Work Phone: [facility] [employer] 06-27-2023 15:24-0400 Body weight 72.67 kg Juvencio Davila MD Work Phone: [employer] 06-27-2023 15:24-0400 Diastolic blood pressure 68 mm[Hg] Juvencio Davila MD Work Phone: [employer] 06-27-2023 15:24-0400 Heart rate 102 /min Juvencio Davila MD Work Phone: [facility] [employer] 06-27-2023 15:24-0400 SaO2% (BldA) [Mass fraction] 98 % Juvencio Davila MD Work Phone: [employer] 06-27-2023 15:24-0400 Systolic blood pressure 114 mm[Hg] Juvencio Davila MD Work Phone: [facility] [employer] 06-27-2023 09:39-0400 Body height 160.7 cm Jie Miranda MD Work Phone: [facility] [employer] 06-27-2023 09:39-0400 Body mass index (BMI) [Ratio] 28.15 kg/m2 Jie Miranda MD Work Phone: [employer] 06-27-2023 09:39-0400 Body temperature 97.3 [degF] Jie Miranda MD Work Phone: [facility] [employer] 06-27-2023 09:39-0400 Body weight 72.67 kg Jie Miranda MD Work Phone: [facility] [employer] 06-27-2023 09:39-0400 Diastolic blood pressure 84 mm[Hg] Jie Miranda MD Work Phone: [facility] [employer] 06-27-2023 09:39-0400 Heart rate 111 /min Jie Miranda MD Work Phone: [facility] [employer] 06-27-2023 09:39-0400 Systolic blood pressure 125 mm[Hg] Jie Miranda MD Work Phone: [facility] [employer] 06-10-2023 14:54-0400 Body height 160.7 cm Juvencio Davila MD Work Phone: [employer] 06-10-2023 14:54-0400 Body mass index (BMI) [Ratio] 29.45 kg/m2 Juvencio Davila MD Work Phone: [employer] 06-10-2023 14:54-0400 Body weight 76.02 kg Juvencio Davila MD Work Phone: [employer] 06-10-2023 14:54-0400 Diastolic blood pressure 82 mm[Hg] Juvencio Davila MD Work Phone: [employer] 06-10-2023 14:54-0400 Heart rate 94 /min Juvencio Davila MD Work Phone: [employer] 06-10-2023 14:54-0400 SaO2% (BldA) [Mass fraction] 98 % Juvencio Davila MD Work Phone: [employer] 06-10-2023 14:54-0400 Systolic blood pressure 133 mm[Hg] Juvencio Davila MD Work Phone: [facility] [employer] 05-27-2023 09:56-0400 Body height 160.7 cm Juvencio Davila MD Work Phone: [facility] [employer] 05-27-2023 09:56-0400 Body mass index (BMI) [Ratio] 29.84 kg/m2 Juvencio Davila MD Work Phone: [facility] [employer] 05-27-2023 09:56-0400 Body weight 77.02 kg Juvencio Davila MD Work Phone: [employer] 05-27-2023 09:56-0400 Diastolic blood pressure 68 mm[Hg] Juvencio Davila MD Work Phone: [facility] [employer] 05-27-2023 09:56-0400 Heart rate 90 /min Juvencio Davila MD Work Phone: [facility] [employer] 05-27-2023 09:56-0400 SaO2% (BldA) [Mass fraction] 97 % Juvencio Davila MD Work Phone: [facility] [employer] 05-27-2023 09:56-0400 Systolic blood pressure 100 mm[Hg] Juvencio Davila MD Work Phone: [facility] [employer] 05-08-2023 10:55-0400 Body mass index (BMI) [Ratio] 29.84 kg/m2 Adriane Bridenthal PERSONNEL GENERALIST MANAGER - SOIL FERTILITY EXTENSION SPECIALIST Work Phone: [facility] [employer] 05-08-2023 10:55-0400 Body temperature 98.01 [degF] Adriane Bridenthal PERSONNEL GENERALIST MANAGER - SOIL FERTILITY EXTENSION SPECIALIST Work Phone: [employer] 05-08-2023 10:55-0400 Body weight 77.02 kg Adriane Bridenthal PERSONNEL GENERALIST MANAGER - SOIL FERTILITY EXTENSION SPECIALIST Work Phone: [facility] [employer] 05-08-2023 10:55-0400 Diastolic blood pressure 80 mm[Hg] Adriane Bridenthal PERSONNEL GENERALIST MANAGER - SOIL FERTILITY EXTENSION SPECIALIST Work Phone: [employer] 05-08-2023 10:55-0400 Heart rate 99 /min Adriane Bridenthal PERSONNEL GENERALIST MANAGER - SOIL FERTILITY EXTENSION SPECIALIST Work Phone: [facility] [employer] 05-08-2023 10:55-0400 Respiratory rate 24 /min Adriane Bridenthal PERSONNEL GENERALIST MANAGER - SOIL FERTILITY EXTENSION SPECIALIST Work Phone: [facility] [employer] 05-08-2023 10:55-0400 SaO2% (BldA) [Mass fraction] 99 % Adriane Bridenthal PERSONNEL GENERALIST MANAGER - SOIL FERTILITY EXTENSION SPECIALIST Work Phone: [facility] [employer] 05-08-2023 10:55-0400 Systolic blood pressure 125 mm[Hg] Adriane Bridenthal PERSONNEL GENERALIST MANAGER - SOIL FERTILITY EXTENSION SPECIALIST Work Phone: [facility] [employer] 04-24-2023 13:08-0400 Body mass index (BMI) [Ratio] 30.65 kg/m2 Juvencio Davila MD Work Phone: [facility] [employer] 04-24-2023 13:08-0400 Body weight 79.11 kg Juvencio Davila MD Work Phone: [facility] [employer] 04-24-2023 13:08-0400 Diastolic blood pressure 78 mm[Hg] Juvencio Davila MD Work Phone: [facility] [employer] 04-24-2023 13:08-0400 Heart rate 79 /min Juvencio Davila MD Work Phone: [facility] [employer] 04-24-2023 13:08-0400 Respiratory rate 16 /min Juvencio Davila MD Work Phone: [facility] [employer] 04-24-2023 13:08-0400 SaO2% (BldA) [Mass fraction] 96 % Juvencio Davila MD Work Phone: [facility] [employer] 04-24-2023 13:08-0400 Systolic blood pressure 122 mm[Hg] Juvencio Davila MD Work Phone: [facility] [employer] 03-26-2023 13:28-0400 Body height 160.7 cm Juvencio Davila MD Work Phone: [facility] [employer] 03-26-2023 13:28-0400 Body mass index (BMI) [Ratio] 31.49 kg/m2 Juvencio Davila MD Work Phone: [facility] 03-26-2023 13:28-0400 Body weight 81.28 kg Juvencio Davila MD Work Phone: [facility] 03-26-2023 13:28-0400 Diastolic blood pressure 64 mm[Hg] Juvencio Davila MD Work Phone: [facility] 03-26-2023 13:28-0400 Heart rate 76 /min Juvencio Davila MD Work Phone: [facility] 03-26-2023 13:28-0400 SaO2% (BldA) [Mass fraction] 96 % Juvencio Davila MD Work Phone: [facility] 03-26-2023 13:28-0400 Systolic blood pressure 119 mm[Hg] Juvencio Davila MD Work Phone: [facility] 01-03-2023 11:32-0400 Body weight 88.[address] Juvencio Davila Work Phone: [facility] 01-03-2023 11:32-0400 Diastolic blood pressure 75 mm[Hg] Dr. Juvencio Davila Work Phone: [facility] 01-03-2023 11:32-0400 Heart rate 93 /min Dr. Juvencio Davila Work Phone: [facility] 01-03-2023 11:32-0400 Respiratory rate 18 /min Dr. Juvencio Davila Work Phone: [facility] 01-03-2023 11:32-0400 Systolic blood pressure 125 mm[Hg] Dr. Juvencio Davila Work Phone: [facility] 01-03-2023 10:32-0400 Body height 157.[address] Juvencio Davila Work Phone: [facility] 10-29-2022 14:30-0500 Body height 160.7 cm Juvencio Davila MD Work Phone: [facility] 10-29-2022 14:30-0500 Body mass index (BMI) [Ratio] 37.08 kg/m2 Juvencio Davila MD Work Phone: [facility] 10-29-2022 14:30-0500 Body weight 95.71 kg Juvencio Davila MD Work Phone: [facility] 10-29-2022 14:30-0500 Diastolic blood pressure 72 mm[Hg] Juvencio Davila MD Work Phone: [facility] 10-29-2022 14:30-0500 Heart rate 82 /min Juvencio Davila MD Work Phone: [facility] 10-29-2022 14:30-0500 Systolic blood pressure 135 mm[Hg] Juvencio Davila MD Work Phone: [facility] 12-04-2021 14:21-0500 Body height 157.[address] Juvencio Davila Work Phone: [facility] Work Phone: 12-04-2021 14:21-0500 Body mass index (BMI) [Ratio] 40.6 kg/m2 Dr. Juvencio Davila Work Phone: [facility] Work Phone: 12-04-2021 14:21-0500 Body weight 100.[address] Juvencio Davila Work Phone: [facility] Work Phone: 12-04-2021 14:21-0500 Diastolic blood pressure 78 mm[Hg] Dr. Juvencio Davila Work Phone: [facility] Work Phone: 12-04-2021 14:21-0500 Heart rate 77 /min Dr. Juvencio Davila Work Phone: [facility] Work Phone: 12-04-2021 14:21-0500 Respiratory rate 18 /min Dr. Juvencio Davila Work Phone: [facility] Work Phone: 12-04-2021 14:21-0500 Systolic blood pressure 138 mm[Hg] Dr. Juvencio Davila Work Phone: [facility] Work Phone: Encounters Encounter Date Encounter Type Care Provider Facility Start: 08-25-2025 End: 08-25-2025 Orders Only Juvencio Davila MD Work Phone: [facility] Start: 08-23-2025 End: 08-23-2025 ambulatory [place]gu[place] [place] Start: 08-20-2025 End: 08-20-2025 ambulatory Talya Smith Facility:[facility] Start: 08-15-2025 End: 08-15-2025 Emergency department patient visit [facility] [place] Facility:[facility] Start: 08-09-2025 End: 08-09-2025 Refill Violet Castellanos PERSONNEL GENERALIST MANAGER - SOIL FERTILITY EXTENSION SPECIALIST Work Phone: [facility] Comment on above: Dyskinesia Start: 07-22-2025 End: 07-22-2025 Subsequent hospital visit by physician Peng Mann MD Work Phone: [facility] Comment on above: Subcutaneous mass of back Start: 07-22-2025 End: 07-22-2025 ambulatory [facility] Start: 06-24-2025 End: 06-24-2025 Refill Shyla Bustillo PERSONNEL GENERALIST MANAGER - SOIL FERTILITY EXTENSION SPECIALIST Work Phone: [facility] Comment on above: Hyperlipidemia LDL g oal <100 Start: 06-07-2025 End: 06-07-[address] [facility] Start: 06-07-2025 End: 06-07-2025 Subsequent hospital visit by physician Bolivar Linder NP Work Phone: [facility] Comment on above: Cervical myelopathy (HCC) Start: 05-06-2025 End: 05-07-2025 Telephone encounter Jie Miranda MD Work Phone: [facility] Comment on above: Appointment Start: 05-06-2025 End: 05-06-2025 ambulatory Andrew Argueta Facility:[facility] Start: 05-03-2025 End: 05-03-2025 Refill Violet Jim PERSONNEL GENERALIST MANAGER - SOIL FERTILITY EXTENSION SPECIALIST Work Phone: [facility] Comment on above: Dyskinesia Start: 03-09-2025 End: 03-09-2025 ambulatory Andrew Argueta Facility:[facility] Start: 03-08-2025 End: 03-08-2025 Office outpatient visit 25 minutes Adriane Hubbard PERSONNEL GENERALIST MANAGER - SOIL FERTILITY EXTENSION SPECIALIST Work Phone: [facility] Comment on above: TERESA on CPAP (Primary Dx); Anxiety; Congestive heart failure, unspecified HF chronicity, unspecified heart failure type (HCC); Tardive dyskinesia; Mild dementia without behavioral disturbance, psychotic disturbance, mood disturbance, or anxiety, unspecified dementia type (HCC); Essential hypertension Start: 03-08-2025 End: 03-08-2025 ambulatory [facility] Start: 03-05-2025 End: 03-08-2025 Telephone encounter Jie Miranda MD Work Phone: [facility] Comment on above: Med Management (brianna tadine (Symmetrel) 100 MG tablet) Start: 03-02-2025 End: 03-02-2025 Refill Juvencio Davila MD Work Phone: [facility] Start: 02-10-2025 End: 02-10-2025 Subsequent hospital visit by physician Adriane Hubbard PERSONNEL GENERALIST MANAGER - SOIL FERTILITY EXTENSION SPECIALIST Work Phone: [facility] Comment on above: Abnormal mammogram Start: 02-10-2025 End: 02-10-2025 ambulatory [facility] Start: 02-10-2025 End: 02-10-2025 Office outpatient visit 15 minutes [facility] Comment on above: Tardive dyskinesia ( Primary Dx) Start: 02-10-2025 End: 02-10-2025 ambulatory [facility] Start: 02-10-2025 End: 02-10-2025 [facility] Start: 01-06-2025 End: 01-06-2025 Refill Jie Miranda MD Work Phone: [facility] Comment on above: Dyskinesia Start: 01-01-2025 End: 01-01-2025 Office outpatient visit 25 minutes Jie Miranda MD Work Phone: [facility] Comment on above: Neuroleptic-induced tardive dyskinesia (Primary Dx) Start: 01-01-2025 End: 01-01-2025 [facility] Start: 12-29-2024 End: 12-29-2024 Telephone encounter Adriane Hubbard APRN - SOIL FERTILITY EXTENSION SPECIALIST Work Phone: [facility] Comment on above: Results Start: 12-28-2024 End: 12-28-2024 Subsequent hospital visit by physician Adriane Hubbard APRN - SOIL FERTILITY EXTENSION SPECIALIST Work Phone: [facility] Comment on above: Encounter for screen ing mammogram for malignant neoplasm of breast Start: 12-28-2024 End: 12-28-2024 [facility] Start: 12-22-2024 End: 12-22-2024 Telephone encounter Adriane Hubbard PERSONNEL GENERALIST MANAGER - SOIL FERTILITY EXTENSION SPECIALIST Work Phone: [facility] Comment on above: Results Results; Medication Problem (Calcium Carb-Cholecalciferol dose change request) Start: 12-21-2024 End: 12-21-2024 Subsequent hospital visit by physician Adriane Hubbard APRN - SOIL FERTILITY EXTENSION SPECIALIST Work Phone: [facility] Comment on above: Cardiomyopathy, unsp ecified type (HCC); Abnormal electrocardiogram (ECG) (EKG) Post-menopausal Start: 12-21-2024 End: 12-21-2024 ambulatory [facility] Start: 12-10-2024 End: 12-10-2024 Subsequent hospital visit by physician Tristin Wilcox MD Work Phone: [facility] Comment on above: Right arm pain Start: 12-10-2024 End: 12-10-2024 Office outpatient new 45 minutes Tristin Wilcox MD Work Phone: [facility] [place] Comment on above: Right arm pain (Prim orion Dx); Closed nondisplaced fracture of head of right radius, initial encounter Start: 12-10-2024 End: 12-10-2024 ambulatory [facility] Start: 12-08-2024 End: 12-08-2024 Office outpatient visit 25 minutes Peng Mann MD Work Phone: [facility] [place] Comment on above: Cervical myelopathy (HCC) (Primary Dx); Neck pain; Cervical spondylosis; Cervical radiculopathy Start: 12-08-2024 End: 12-08-2024 ambulatory [facility] Start: 12-08-2024 End: 12-08-2024 ambulatory Andrew [facility] [place] [place] Start: 12-08-2024 End: 12-08-2024 Assay of hemosiderin, quant Adriane Hubbard PERSONNEL GENERALIST MANAGER - SOIL FERTILITY EXTENSION SPECIALIST Work Phone: [facility] Start: 12-08-2024 End: 12-08-2024 Patient encounter procedure Adriane Courtneyenthal PERSONNEL GENERALIST MANAGER - SOIL FERTILITY EXTENSION SPECIALIST Work Phone: [facility] Comment on above: Routine general medi roxana examination at health care facility (Primary Dx); Essential hypertension; Hyperlipidemia LDL goal <100; Screening for deficiency anemia; Parkinson's disease without dyskinesia or fluctuating manifestations (HCC); Mild dementia without behavioral disturbance, psychotic disturbance, mood disturbance, or anxiety, unspecified dementia type (HCC); Cardiomyopathy, unspecified type (HCC); Chronic congestive heart failure, unspecified heart failure type (HCC); Abnormal electrocardiogram (ECG) (EKG); Closed fracture of right upper extremity with routine healing, subsequent encounter; Tardive dyskinesia Start: 12-08-2024 End: 12-08-2024 ambulatory [facility] Start: 12-08-2024 End: 12-08-2024 Encounter for general adult medical examination without abnormal findings ADRIANE HUBBARD [facility] Start: 12-07-2024 End: 12-07-2024 ambulatory [facility] Start: 12-07-2024 End: 12-07-2024 Office outpatient visit 25 minutes Jie Miranda MD Work Phone: [facility] Comment on above: Closed fracture of r ight upper extremity, initial encounter (Primary Dx); Tardive dyskinesia Start: 12-05-2024 End: 12-05-2024 Emergency department patient visit Bud Malik DO Work Phone: [facility] Comment on above: Closed nondisplaced fracture of head of right radius, initial encounter (Primary Dx) Start: 12-01-2024 End: 12-01-2024 Refill Anjel Larsen APRN - SOIL FERTILITY EXTENSION SPECIALIST Work Phone: [facility] Start: 11-02-2024 End: 11-02-2024 ambulatory [facility] Start: 11-02-2024 End: 11-02-2024 Subsequent hospital visit by physician Anjel Larsen APRN - SOIL FERTILITY EXTENSION SPECIALIST Work Phone: [facility] Comment on above: Neck pain; Cervical myelopathy (HCC); DDD (degenerative disc disease), cervical; Cervical spondylosis Start: 10-30-2024 End: 10-30-2024 Office outpatient new 45 minutes Anjel Larsen APRN - SOIL FERTILITY EXTENSION SPECIALIST Work Phone: [facility] [facility] - [employer] Comment on above: Neck pain (Primary D x); Cervical myelopathy (HCC); DDD (degenerative disc disease), cervical; Cervical spondylosis; Lumbar pain; Degeneration of intervertebral disc of lumbar region with discogenic back pain; Lumbar spondylosis Start: 10-30-2024 End: 10-30-2024 [facility] Start: 10-16-2024 End: 10-16-2024 Subsequent hospital visit by physician Juvencio Davila MD Work Phone: [facility] Radiology Comment on above: Chronic midline low back pain without sciatica Start: 10-16-2024 End: 10-16-2024 [facility] Start: 10-12-2024 End: 10-12-2024 Office outpatient visit 25 minutes Adrianeglenroy Hubbard PERSONNEL GENERALIST MANAGER - SOIL FERTILITY EXTENSION SPECIALIST Work Phone: [facility] Comment on above: Acute pain of right shoulder (Primary Dx); Urinary tract infection symptoms; Mixed stress and urge urinary incontinence; Chronic midline low back pain without sciatica; Essential hypertension; Major depressive disorder with single episode, in partial remission (HCC) Start: 10-12-2024 End: 10-12-2024 [facility] Start: 09-14-2024 End: 09-14-2024 Office outpatient visit 25 minutes Jie Miranda MD Work Phone: [facility] Comment on above: Dyskinesia (Primary Dx); Other drug-induced secondary parkinsonism (HCC) Start: 09-14-2024 End: 09-14-2024 [facility] Start: 09-08-2024 End: 09-08-2024 Subsequent hospital visit by physician Adriane Hubbard PERSONNEL GENERALIST MANAGER - SOIL FERTILITY EXTENSION SPECIALIST Work Phone: [facility] Radiology Comment on above: Acute pain of right shoulder Start: 09-08-2024 End: 09-08-2024 [facility] Start: 09-08-2024 End: 09-08-2024 Office outpatient visit 10 minutes Adriane Hubbard PERSONNEL GENERALIST MANAGER - SOIL FERTILITY EXTENSION SPECIALIST Work Phone: [facility] Comment on above: Acute pain of right shoulder (Primary Dx); Mixed stress and urge urinary incontinence Start: 09-08-2024 End: 09-08-2024 Office outpatient visit 25 minutes Adriane Magdaleno PERSONNEL GENERALIST MANAGER - SOIL FERTILITY EXTENSION SPECIALIST Work Phone: [facility] Comment on above: Acute pain of right shoulder (Primary Dx); Mixed stress and urge urinary incontinence Start: 09-08-2024 End: 09-08-2024 ambulatory [facility] Start: 09-07-2024 End: 09-07-2024 ambulatory [facility] Start: 09-04-2024 End: 09-07-2024 Refill Juvencio Davila MD Work Phone: [facility] Start: 09-03-2024 End: 09-03-2024 Refill Adriane Hubbard PERSONNEL GENERALIST MANAGER - SOIL FERTILITY EXTENSION SPECIALIST Work Phone: [facility] Start: 08-24-2024 End: 08-24-2024 Telephone encounter Mason Haynes MD Work Phone: [facility] Start: 08-11-2024 End: 08-11-2024 Subsequent hospital visit by physician Mason Haynes MD Work Phone: [facility] Endoscopy Comment on above: Encounter for screen ing for malignant neoplasm of colon Start: 07-28-2024 End: 07-28-2024 Telephone encounter Mason Haynes MD Work Phone: [facility] Start: 07-14-2024 End: 07-14-2024 Telephone encounter Terry Bui MD Work Phone: [facility] Comment on above: Appointment Request (The colonoscopy questionnaire was completed.) Start: 07-08-2024 End: 07-08-2024 Office outpatient visit 25 minutes Adriane Magdaleno PERSONNEL GENERALIST MANAGER - SOIL FERTILITY EXTENSION SPECIALIST Work Phone: [facility] Comment on above: Acute left-sided low back pain without sciatica (Primary Dx); Skin lesion; Colon cancer screening; Left flank pain; TERESA on CPAP; Anxiety; Recurrent major depressive disorder, in full remission (HCC); Essential hypertension; Hyperlipidemia LDL goal <100; Urinary tract infection symptoms Start: 07-04-2024 End: 07-06-2024 Refill Adriane Bridenthal PERSONNEL GENERALIST MANAGER - SOIL FERTILITY EXTENSION SPECIALIST Work Phone: [facility] Comment on above: Hyperlipidemia LDL g oal <100 Start: 07-02-2024 End: 07-02-2024 Office outpatient visit 25 minutes Jie Miranda MD Work Phone: [facility] Neurology [facility] Comment on above: Parkinson's disease without dyskinesia or fluctuating manifestations (HCC) (Primary Dx); Orofacial dyskinesia Start: 04-02-2024 End: 04-02-2024 Office outpatient visit 25 minutes Violet Jim PERSONNEL GENERALIST MANAGER - SOIL FERTILITY EXTENSION SPECIALIST Work Phone: [facility] Neuroscience Comment on above: Tardive dyskinesia ( Primary Dx); Gait disorder Start: 03-23-2024 ambulatory Laura Gould RN [facility] Clin ical Communication Start: 03-23-2024 End: 03-23-2024 Office outpatient visit 15 minutes Adriane Bridenthal PERSONNEL GENERALIST MANAGER - SOIL FERTILITY EXTENSION SPECIALIST Work Phone: [facility] Family Medicine Comment on above: Urinary tract infect ion symptoms (Primary Dx) Start: 03-23-2024 Patient encounter procedure Laura Gould RN [facility] Clinical Communication Start: 02-10-2024 Refill Juvencio Davila MD Work Phone: [facility] Start: 02-10-2024 End: 02-10-2024 Office outpatient visit 10 minutes Adriane Bridenthal PERSONNEL GENERALIST MANAGER - SOIL FERTILITY EXTENSION SPECIALIST Work Phone: [facility] Comment on above: TERESA on CPAP (Primary Dx) Start: 12-30-2023 End: 12-30-2023 Assay of hemosiderin, quant Adriane Bridenthal PERSONNEL GENERALIST MANAGER - SOIL FERTILITY EXTENSION SPECIALIST Work Phone: [facility] [employer] Start: 12-30-2023 End: 12-30-2023 Patient encounter procedure Adriane Bridenthal PERSONNEL GENERALIST MANAGER - SOIL FERTILITY EXTENSION SPECIALIST Work Phone: [facility] Comment on above: Routine general medi roxana examination at health care facility (Primary Dx); Hyperlipidemia LDL goal <100; Screening for deficiency anemia; Essential hypertension; Encounter for screening mammogram for malignant neoplasm of breast; Post-menopausal; Tardive dyskinesia; Weight loss; TERESA on CPAP; Recurrent major depressive disorder, in full remission (HCC); Anxiety Start: 12-09-2023 Refill Juvencio Davila MD Work Phone: [facility] Comment on above: Anxiety Start: 12-06-2023 End: 12-06-2023 Office outpatient visit 15 minutes Jie Miranda MD Work Phone: [facility] Comment on above: 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) Start: 11-14-2023 End: 11-14-2023 Office outpatient visit 25 minutes Adriane [employer] PERSONNEL GENERALIST MANAGER - [employer] Work Phone: [facility] Comment on above: Anxiety (Primary Dx) ; Recurrent major depressive disorder, in full remission (HCC) Start: 10-16-2023 End: 10-16-2023 Office outpatient visit 25 minutes Adriane [employer] PERSONNEL GENERALIST MANAGER - [employer] Work Phone: [facility] Comment on above: Anxiety (Primary Dx) ; Recurrent major depressive disorder, in full remission (HCC); Essential hypertension Start: 10-10-2023 End: 10-10-2023 Patient encounter procedure Juvencio Davila MD Work Phone: [facility] Medicine Comment on above: Neoplasm of uncertai n behavior of skin of lower leg (Primary Dx) Start: 09-17-2023 End: 09-17-2023 Office outpatient visit 25 minutes Adriane [employer] PERSONNEL GENERALIST MANAGER - [employer] Work Phone: [facility] Comment on above: Anxiety (Primary Dx) ; Tardive dyskinesia; Essential hypertension; Post-menopausal; Skin lesion Start: 09-05-2023 End: 09-05-2023 Office outpatient visit 15 minutes Jie Miranda MD Work Phone: [facility] Comment on above: Tardive dyskinesia ( Primary Dx); Anxiety and depression Start: 08-27-2023 Nicol Davila MD Work Phone: [facility] Comment on above: Recurrent major depr essive disorder, in full remission (HCC) Start: 08-23-2023 End: 08-23-2023 Subsequent hospital visit by physician Jie Miranda MD Work Phone: [facility] Comment on above: Mild dementia withou t behavioral disturbance, psychotic disturbance, mood disturbance, or anxiety, unspecified dementia type (HCC) Start: 08-19-2023 End: 08-19-2023 Office outpatient visit 25 minutes AdrianeNeov[employer]cleonc[employer]al PERSONNEL GENERALIST MANAGER - SOIL FERTILITY EXTENSION SPECIALIST Work Phone: [facility] Medicine Comment on above: Tardive dyskinesia ( Primary Dx); Weight loss; Hot flashes; Essential hypertension Start: 08-10-2023 Refill Juvencio Davila MD Work Phone: [facility] Start: 08-05-2023 Telephone encounter Jie mejia MD Work Phone: [facility] Comment on above: Med Management (Ingr ezza 60mg increase - [facility]. ) Start: 08-01-2023 End: 08-01-2023 Office outpatient visit 25 minutes Jie Miranda MD Work Phone: [facility] Comment on above: Mild dementia withou t behavioral disturbance, psychotic disturbance, mood disturbance, or anxiety, unspecified dementia type (HCC) (Primary Dx); Tardive dyskinesia Start: 07-24-2023 End: 07-24-2023 Office outpatient visit 15 minutes Adriane [employer] PERSONNEL GENERALIST MANAGER - SOIL FERTILITY EXTENSION SPECIALIST Work Phone: [facility] Medicine Comment on above: Tardive dyskinesia ( Primary Dx); Anxiety Start: 07-03-2023 ambulatory Anne-Marie Rodriguez RN [facility] Cl [facility] Start: 07-03-2023 Patient encounter procedure Anne-Marie Rodriguez RN [facility] Clinical Communication Start: 07-03-2023 Telephone encounter Anne-Marie Rodriguez RN [facility] Clinical Communication Start: 07-01-2023 Telephone encounter Violet case PERSONNEL GENERALIST MANAGER - SOIL FERTILITY EXTENSION SPECIALIST Work Phone: [facility] Comment on above: Med Management (Glenny ent must fill with [facility] ) Start: 06-27-2023 End: 06-27-2023 Office outpatient visit 15 minutes Juvencio Davila MD Work Phone: [facility] Comment on above: Tardive dyskinesia ( Primary Dx); Anxiety Start: 06-27-2023 Refill Juvencio Davila MD Work Phone: [facility] Start: 06-27-2023 End: 06-27-2023 Office outpatient new 45 minutes Jie Miranda MD Work Phone: [facility] Comment on above: Tardive dyskinesia Start: 06-26-2023 Telephone encounter Jie mejia MD Work Phone: [facility] Comment on above: New Patient ( 3, 10:00a: Tardive Dyskinesia) Start: 06-19-2023 ambulatory Ciarra Tripp RN [facility] Clinical Communication Start: 06-19-2023 Patient encounter procedure Ciarra Tripp RN [facility] Clinical Communication Comment on above: Tardive dyskinesia ( Primary Dx) Start: 06-10-2023 End: 06-10-2023 Office outpatient visit 15 minutes Juvencio Davila MD Work Phone: [facility] Comment on above: Drug-induced movemen t disorder (Primary Dx); TERESA on CPAP Start: 05-31-2023 Telephone encounter Juvencio Reed MD Work Phone: [facility] Comment on above: Orders (Sleep study order) Start: 05-27-2023 End: 05-27-2023 Office outpatient visit 25 minutes Juvencio Davila MD Work Phone: [facility] Comment on above: Recurrent major depr essive disorder, in full remission (HCC) (Primary Dx); Anxiety; Class 1 obesity due to excess calories without serious comorbidity with body mass index (BMI) of 30.0 to 30.9 in adult; Tardive dyskinesia Start: 05-08-2023 End: 05-08-2023 Office outpatient visit 15 minutes [employer] PERSONNEL GENERALIST MANAGER - SOIL FERTILITY EXTENSION SPECIALIST Work Phone: [facility] Comment on above: Tardive dyskinesia ( Primary Dx); Drug-induced movement disorder; Essential hypertension; Recurrent major depressive disorder, in full remission (HCC) Start: 05-08-2023 End: 05-08-2023 Office outpatient visit 25 minutes [employer] PERSONNEL GENERALIST MANAGER - SOIL FERTILITY EXTENSION SPECIALIST Work Phone: [facility] Comment on above: Tardive dyskinesia ( Primary Dx); Drug-induced movement disorder; Essential hypertension; Recurrent major depressive disorder, in full remission (HCC) Start: 04-24-2023 End: 04-24-2023 Office outpatient visit 25 minutes Juvencio Davila MD Work Phone: [facility] Comment on above: Recurrent major depr essive disorder, in full remission (HCC) (Primary Dx); Class 1 obesity due to excess calories without serious comorbidity with body mass index (BMI) of 30.0 to 30.9 in adult Start: 03-26-2023 End: 03-26-2023 Office outpatient visit 15 minutes Juvencio Davila MD Work Phone: [facility] Comment on above: Greater trochanteric bursitis of right hip (Primary Dx); Class 1 obesity due to excess calories without serious comorbidity with body mass index (BMI) of 31.0 to 31.9 in adult Start: 03-08-2023 End: 03-08-[address] Juvencio Davila Work Phone: [facility] Work Phone: Start: 03-08-2023 End: 03-08-[address] Juvencio Davila Work Phone: [facility], [facility] Start: 02-12-2023 Refill Shyla Bustillo APRN - SOIL FERTILITY EXTENSION SPECIALIST Work Phone: [facility] Start: 01-18-2023 Non-patient / Non-visit Dr. Cam Work Phone: [facility] Start: 01-18-2023 End: 01-18-[address] Juvencio Davila Work Phone: [facility] Work Phone: Start: 01-18-2023 End: 01-18-[address] Juvencio Davila Work Phone: [facility] Start: 01-03-2023 End: 01-03-[address] Juvencio Davila Work Phone: [facility] Start: 12-30-2022 Refill Juvencio Davila MD Work Phone: [facility] Start: 12-28-2022 Refill Juvencio Davila MD Work Phone: [facility] Start: 10-29-2022 End: 10-29-2022 Patient encounter status Juvencio Davila MD Work Phone: [facility] Start: 10-29-2022 End: 10-29-2022 Periodic preventive med est patient 65yrs& older Juvencio Davila MD Work Phone: [facility] Comment on above: Well female exam wit h routine gynecological exam (Primary Dx); Essential hypertension; Obesity (BMI 35.0-39.9 without comorbidity); Prediabetes; Recurrent major depressive disorder, in full remission (HCC); Anxiety; Hyperlipidemia LDL goal <100; Screening for colon cancer Start: 01-23-2022 End: 01-23-[address] Juvencio Davila Work Phone: [facility]Out[facility] Start: 12-04-2021 End: 12-04-[address] Juvencio Davila Work Phone: [facility] Start: 12-10-2018 Patient encounter procedure Juvencio Davila [facility] Procedures Date Procedure Procedure Detail Performing Clinician Start: 02-10-2025 End: 02-10-2025 Mammography Adriane Magdaleno A PRN - SOIL FERTILITY EXTENSION SPECIALIST Work Phone: Start: 12-28-2024 End: 12-28-2024 Screening digital breast tomosynthesis bi Adriane Bridenthal PERSONNEL GENERALIST MANAGER - SOIL FERTILITY EXTENSION SPECIALIST Work Phone: Start: 12-21-2024 Dxa bone density darrell dy 1/> sites axial skel Adriane Bridenthal PERSONNEL GENERALIST MANAGER - SOIL FERTILITY EXTENSION SPECIALIST Work Phone: Start: 12-21-2024 Echo tthrc r-t 2d w/wom-mode compl spec&colr d Adriane Bridenthal PERSONNEL GENERALIST MANAGER - SOIL FERTILITY EXTENSION SPECIALIST Work Phone: Start: 12-10-2024 Radex humerus minimu m 2 views [place] PA-C Work Phone: Start: 12-08-2024 Follow-up visit Follow-up PENG MANN Start: 12-08-2024 Lipid 1996 panel - S janelle or Plasma Peng Mann MD Work Phone: Start: 12-05-2024 End: 12-05-2024 Radex elbow complete minimum 3 views Bud Malik DO Work Phone: Start: 12-05-2024 PB ED PLACEHOLDER Bud Malik DO Work Phone: Start: 11-02-2024 Mri spinal canal cer vical w/o contrast matrl Anjel Larsen PERSONNEL GENERALIST MANAGER - SOIL FERTILITY EXTENSION SPECIALIST Work Phone: Start: 10-30-2024 Radex spine cervical 4 or 5 views Anjel Larsen PERSONNEL GENERALIST MANAGER - SOIL FERTILITY EXTENSION SPECIALIST Work Phone: Start: 10-12-2024 Urnls dip stick/tabl et rgnt non-auto w/o micrscp Adriane Bridenthal PERSONNEL GENERALIST MANAGER - SOIL FERTILITY EXTENSION SPECIALIST Work Phone: Start: 08-11-2024 Colonoscopy Mason melo MD Work Phone: Start: 07-08-2024 Urnls dip stick/tabl et rgnt non-auto w/o micrscp Adriane Bridenthal PERSONNEL GENERALIST MANAGER - SOIL FERTILITY EXTENSION SPECIALIST Work Phone: Start: 03-23-2024 Urnls dip stick/tabl et rgnt non-auto w/o micrscp Adriane Bridenthal PERSONNEL GENERALIST MANAGER - SOIL FERTILITY EXTENSION SPECIALIST Work Phone: Start: 12-30-2023 Lipid 1996 panel - S janelle or Plasma Juvencio Davila MD Work Phone: Start: 03-08-[address] Cam Work Phone: Start: 10-30-2022 Lipid 1996 panel - S janelle or Plasma Shyla Bustillo PERSONNEL GENERALIST MANAGER - SOIL FERTILITY EXTENSION SPECIALIST Work Phone: Start: 10-29-2022 Microscopic observat ion [Identifier] in Cervix by Cyto stain Juvencio Davila MD Work Phone: Start: 01-25-2022 Mammography Shyla vences PERSONNEL GENERALIST MANAGER - SOIL FERTILITY EXTENSION SPECIALIST Work Phone: Start: 01-23-2022 Screening mammography Fran Davila Work Phone: Start: 11-16-2021 Lipid 1996 panel - S janelle or Plasma Juvencio Davila MD Work Phone: Start: 10-26-2021 Microscopic observat ion [Identifier] in Cervix by Cyto stain Juvencio Davila MD Work Phone: Plan of Treatment Date Care Activity Detail Author Start: 12-08-2029 Lipid panel Lipid Panel [facility] Start: 08-11-2029 Screening for malignant neoplasm of colon [facility] Start: 12-29-2028 Lipid panel Lipid Panel [facility] Start: 10-30-2027 Lipid panel Lipid Panel [facility] Start: 02-15-2027 DTaP/Tdap/Td Vaccines (2 - Td or Tdap) DTaP/Tdap/Td Vaccines (2 - Td or Tdap) [facility] Start: 11-16-2026 Lipid panel Lipid Panel [facility] Start: 03-09-2026 End: 03-09-2026 Patient encounter procedure 03/09/2026 11:00 AM EDT Office Visit [facility] [address] [facility] [facility] [place] [address] [place] [address] BridenthalNataliaAdriane, PERSONNEL GENERALIST MANAGER - SOIL FERTILITY EXTENSION SPECIALIST [address] [place] [address] [facility] Start: 02-10-2026 Screening for malignant neoplasm of breast Mammogram [facility] Start: 01-07-2026 Medicare Annual Wellness (AWV) Medicare Annual Wellness (AWV) [facility] Start: 12-28-2025 Screening for malignant neoplasm of breast Mammogram [facility] Start: 12-21-2025 Echocardiography Echocardiogram [facility] Start: 12-09-2025 End: 12-09-2025 Patient encounter procedure 12/09/2025 10:20 AM EST [facility] [address] [place] [address] [place] [address] Bridenthal Adriane, PERSONNEL GENERALIST MANAGER - SOIL FERTILITY EXTENSION SPECIALIST [address] [facility] [place] [address] [place] [address] [facility] Start: 12-08-2025 Creatinine measurement Creatinine Level [facility] Start: 12-08-2025 Diabetes mellitus screening Diabetes Screening [facility] Start: 12-08-2025 Potassium measurement Potassium Level [facility] Start: 12-08-2025 RSV Immunization for Adults (1 - Risk 60-74 years 1-dose series) RSV Immunization for Adults (1 - Risk 60-74 years 1-dose series) [facility] Comment on above: Postponed from 2017 (Patient Refus ed) Start: 10-30-2025 Diabetes mellitus screening Diabetes Screening [facility] Start: 10-29-2025 Screening for malignant neoplasm of cervix [facility] Start: 10-12-2025 End: 10-12-2025 Patient encounter procedure 10/12/2025 10:20 AM EST Office Visit [facility] [address] [facility] [place] [address] [place] [address] Adriane Hubbard, PERSONNEL GENERALIST MANAGER - SOIL FERTILITY EXTENSION SPECIALIST [address] [facility] [address] [place] [address] [facility] Start: 09-08-2025 Depression Monitoring Depression Monitoring [facility] Start: 06-21-2025 Influenza vaccination [facility] Start: 06-07-2025 End: 06-07-2025 Patient encounter procedure 06/07/2025 4:00 PM EDT Appointment [facility] [address] [place] [address] Bolivar Linder NP [address] [facility] [address] [place] [address] Peng Mann MD [address] [facility] [address] [place] [address] [facility] Start: 06-07-2025 End: 12-08-2025 MR Cervical spine WO contrast [facility] Work Phone: Comment on above: Expected: 06/07/2025, Expires: 6 Once for 1 Occurrenc es starting 06/07/2025 until 06/07/2025 Start: 05-06-2025 End: 05-06-2025 Patient encounter procedure 05/06/2025 2:15 PM EDT Office Visit [facility] Neurology - [place] [address] [place] [address] [place] [phone] iJe Miranda MD [address] [place], [place] [id number] [facility] Start: 03-08-2025 End: 03-08-2025 Patient encounter procedure [facility] Start: 02-10-2025 End: 02-10-[address] [facility] Start: 02-10-2025 End: 02-10-2025 Patient encounter procedure 02/10/2025 8:30 AM EDT Office Visit [facility] [address] [place] [phone] Jie Miranda MD [address] [place], [place] [id number] [facility] Start: 01-28-2025 Medicare Annual Wellness (AWV) Medicare Annual Wellness (AWV) [facility] Start: 01-05-2025 Depression Monitoring Depression Monitoring [facility] Start: 01-01-2025 End: 01-01-2025 Patient encounter procedure 01/01/2025 11:30 AM EDT Office Visit [facility] [address] [place] [phone] Jie Miranda MD [address] [place] [address] [place] [address] [facility] Start: 12-30-2024 End: 12-30-2024 Patient encounter procedure [facility] Start: 12-29-2024 Creatinine measurement Creatinine Level [facility] Start: 12-29-2024 End: 07-01-2025 DBT Breast - left diagnostic Left diagnostic mammogram with tomosynthesis Imaging Routine Abnormal mammogram Expected: 12/29/2024, Expires: 07/01/2025 [facility] Work Phone: Comment on above: Expected: 12/29/2024, Expires: Start: 12-29-2024 Potassium measurement Potassium Level [facility] Start: 12-29-2024 End: 02-28-2026 US Breast - left limited Left breast US limited Imaging Routine Abnormal mammogram Expected: 12/29/2024, Expires: 02/28/2026 [facility] Comment on above: Expected: 12/29/2024, Expires: Start: 12-29-2024 End: 12-29-2024 Patient encounter procedure 12/29/2024 11:30 AM EDT Office Visit [facility] [address] [place] [phone] Tristin Wilcox MD [address] [facility] [address] [place], [place] [id number] [facility] Start: 12-28-2024 End: 12-28-2024 Patient encounter procedure 12/28/2024 3:20 PM EDT Appointment [facility] [address] [place] [phone] [facility] Start: 12-28-2024 Subsequent hospital visit by physician [facility] Start: 12-21-2024 End: 12-21-2024 Patient encounter procedure [facility] [place] Start: 12-11-2024 End: 12-11-2024 Patient encounter procedure 12/11/2024 1:00 PM EST Office Visit [facility] - [place] [address] [facility] [address] [place] [phone] Peng Mann MD [address] [facility] [address] [place], [place] [address] [facility] Medicine - [place] Start: 12-10-2024 End: 12-10-2024 Patient encounter procedure 12/10/2024 1:30 PM EST Office Visit [facility] [place] [address] [place] [address] [place] [phone] Tristin Wilcox MD [address] [facility] [address] [place], [place] [id number] [facility] [place] Start: 12-08-2024 End: 12-08-2024 Patient encounter procedure 12/08/2024 3:15 PM EST Office Visit [facility] Anastasia Childressd [address] [facility] [address] [place] [phone] Peng Mann MD [address] [facility] [address] [place], [place] [address] [facility] Start: 12-08-2024 End: 12-08-2025 CBC panel - Blood by Automated count CBC Lab Routine Screening for deficiency anemia Expected: 12/08/2024 (Approximate), Expires: 12/08/2025 [facility] Comment on above: Expected: 12/08/2024 (Approximate), Expi res: 12/08/2025 Start: 12-08-2024 End: 12-08-2025 Comprehensive metabolic 1998 panel - Serum or Plasma Comprehensive metabolic panel Lab Routine Essential hypertension Expected: 12/08/2024 (Approximate), Expires: 12/08/2025 [facility] Work Phone: Comment on above: Expected: 12/08/2024 (Approximate), Expi res: 12/08/2025 Start: 12-08-2024 End: 12-08-2025 Lipid 1996 panel - Serum or Plasma Lipid panel Lab Routine Hyperlipidemia LDL goal <100 Expected: 12/08/2024 (Approximate), Expires: 12/08/2025 [facility] Comment on above: Expected: 12/08/2024 (Approximate), Expi res: 12/08/2025 Start: 12-08-2024 End: 12-08-2026 US Heart Transthoracic Transthoracic echocardiogram (TTE) complete with contrast, bubble, strain, and 3D PRN CV Echocardiography Routine Cardiomyopathy, unspecified type (HCC) Abnormal electrocardiogram (ECG) (EKG) Expected: 12/08/2024 (Approximate), Expires: 12/08/2026 [facility] Comment on above: Expected: 12/08/2024 (Approximate), Expi res: 12/08/2026 Start: 12-08-2024 End: 12-08-2024 Patient encounter procedure 12/08/2024 8:40 AM EST Office Visit [facility] [address] [facility] [place] [address] [place] [address] Adriane Hubbard PERSONNEL GENERALIST MANAGER - SOIL FERTILITY EXTENSION SPECIALIST [address] [facility] [place] [address] [facility] Start: 12-07-2024 End: 12-07-2024 Patient encounter procedure 12/07/2024 3:00 PM EST Office Visit [facility] [address] [facility] [place] [address] [place] [phone] Jie Miranda MD [address] [place] [place] [address] [place] [address] [facility] Start: 11-16-2024 Diabetes mellitus screening Diabetes Screening [facility] Start: 11-02-2024 End: 11-02-2024 Patient encounter procedure 11/02/2024 10:00 AM EST Appointment [facility] [address] [place] [address] Anjel Larsen, PERSONNEL GENERALIST MANAGER - SOIL FERTILITY EXTENSION SPECIALIST [address] [facility] [address] [place] [address] [facility] Start: 10-30-2024 End: 10-30-2025 MR Cervical spine WO contrast MR cervical spine wo contrast Imaging Routine Neck pain Cervical myelopathy (HCC) DDD (degenerative disc disease), cervical Cervical spondylosis Expected: 10/30/2024, Expires: 10/30/2025 [facility] Work Phone: Comment on above: Expected: 10/30/2024, Expires: Start: 10-26-2024 Screening for malignant neoplasm of cervix [facility] Start: 10-26-2024 Screening for malignant neoplasm of colon [facility] Start: 10-12-2024 End: 10-12-2025 XR Lumbar spine Views W flexion and W extension XR lumbar spine 4-5 view Imaging Routine Chronic midline low back pain without sciatica Expected: 10/12/2024, Expires: 10/12/2025 [facility] Work Phone: Comment on above: Expected: 10/12/2024, Expires: Start: 10-12-2024 End: 10-12-2024 Patient encounter procedure 10/12/2024 1:40 PM EST Office Visit [facility] [address] [facility] [place] [address] Bridenthal, Adriane, PERSONNEL GENERALIST MANAGER - SOIL FERTILITY EXTENSION SPECIALIST [address] [facility] [place] [address] [facility] Start: 09-17-2024 COVID-19 Vaccine ( season) COVID-19 Vaccine ( season) [facility] Comment on above: Postponed from 06/21/2023 (Patient Refus ed) Start: 09-17-2024 Hepatitis B Vaccines (2 of 3 - 19+ 3-dose series) Hepatitis B Vaccines (2 of 3 - 19+ 3-dose series) [facility] [employer] Comment on above: Postponed from 09/24/2005 (Patient Refus ed) Start: 09-17-2024 Hepatitis C screening Hepatitis C Screening [facility] Comment on above: Postponed from 1975 (Patient Refus ed) Start: 09-17-2024 Pneumococcal Vaccine: 65+ Years (1 - PCV) Pneumococcal Vaccine: 65+ Years (1 - PCV) [facility] Comment on above: Postponed from 1963 (Patient Refus ed) Start: 09-17-2024 Pneumococcal Vaccine: 65+ Years (1 of 2 - PCV) Pneumococcal Vaccine: 65+ Years (1 of 2 - PCV) [facility] Comment on above: Postponed from 1963 (Patient Refus ed) Start: 09-17-2024 RSV Immunization aged 60 or older (1 - 1-dose 60+ series) RSV Immunization aged 60 or older (1 - 1-dose 60+ series) [facility] Comment on above: Postponed from 2017 (Patient Refus ed) Start: 09-17-2024 RSV Immunization for Adults (1 - Risk 60-74 years 1-dose series) RSV Immunization for Adults (1 - Risk 60-74 years 1-dose series) [facility] Comment on above: Postponed from 2017 (Patient Refus ed) Start: 09-14-2024 End: 09-14-2024 Patient encounter procedure 09/14/2024 3:15 PM EST Office Visit [facility] [address] [facility] [address] [place] [phone] Jie Miranda MD [address] [facility] [address] [place], [place] [phone] [facility] Start: 09-08-2024 End: 09-08-2025 XR Shoulder - right 2 Views [facility] Work Phone: Comment on above: Expected: 09/08/2024, Expires: 5 Once for 1 Occurrenc es starting 09/08/2024 until 09/08/2024 Start: 09-08-2024 End: 09-08-2024 Patient encounter procedure 09/08/2024 10:00 AM EST Office Visit [facility] [place] [address] [facility] [place] [address] [place] [address] Adriane Hubbard, SOO - SOIL FERTILITY EXTENSION SPECIALIST [address] [facility] [place] [address] [place] [address] [facility] Start: 08-11-2024 End: 08-11-2024 Admission to same day surgery center 08/11/2024 9:00 AM EDT - 08/11/2024 9:30 AM EDT Surgery [facility] Endoscopy [address] [place] [phone] Mason Haynes MD [address] [place], [place] [phone] COLONOSCOPY FOR LOW RISK SCREENING [G0121] [facility] Comment on above: COLONOSCOPY FOR LOW RISK SCREENING [G012 1] Start: 08-11-2024 End: 08-11-2024 Colon ca scrn not hi rsk ind [facility] Gastroenterology Start: 08-11-2024 Subsequent hospital visit by physician 08/11/2024 9:00 AM EDT Hospital Encounter [facility] [address] [place] [address] Mason Haynes MD [address] [place], [place] [id number] [facility] Start: 07-08-2024 End: 07-08-2025 Bacteria identified in Urine by Culture Urine culture (clean catch) Microbiology Routine Acute left-sided low back pain without sciatica Left flank pain Expected: 07/08/2024 (Approximate), Expires: 07/08/2025 [facility] Work Phone: Comment on above: Expected: 07/08/2024 (Approximate), Expi res: 07/08/2025 Start: 07-08-2024 End: 07-08-2024 Patient encounter procedure [facility] Start: 07-02-2024 End: 07-02-2024 Patient encounter procedure 07/02/2024 2:00 PM EDT Office Visit [facility] [address] [facility] [address] [place] [address] Jie Miranda MD [address] [place], [place] [id number] [facility] Start: 07-01-2024 Depression Monitoring Depression Monitoring [facility] Start: 07-01-2024 Depresssion Monitoring Depresssion Monitoring [facility] Start: 07-01-2024 End: 07-01-2024 Patient encounter procedure 07/01/2024 11:20 AM EDT Office Visit [facility] Medicine [address] [place], [place] [phone] Adriane Hubbard, PERSONNEL GENERALIST MANAGER - SOIL FERTILITY EXTENSION SPECIALIST [address] [place] [address] [place] [address] [facility] Start: 06-21-2024 COVID-19 Vaccine ( season) COVID-19 Vaccine () [facility] Start: 06-21-2024 COVID-19 Vaccine () COVID-19 Vaccine () [facility] Start: 06-21-2024 Influenza vaccination [facility] Start: 05-15-2024 Creatinine measurement Creatinine Level [facility] Start: 05-15-2024 Potassium measurement Potassium Level [facility] Start: 04-19-2024 Influenza vaccination Influenza Vaccine (#1) [facility] Comment on above: Postponed from 06/21/2023 (Patient Refus ed) Start: 04-02-2024 End: 04-02-2024 Patient encounter procedure [facility] Start: 03-23-2024 End: 03-23-2025 Bacteria identified in Urine by Culture Urine culture (clean catch) Microbiology Routine Urinary tract infection symptoms Expected: 03/23/2024 (Approximate), Expires: 03/23/2025 [facility] Work Phone: Comment on above: Expected: 03/23/2024 (Approximate), Expi res: 03/23/2025 Start: 01-19-2024 Echocardiography Echocardiogram [facility] Start: 12-30-2023 End: 12-29-2024 CBC panel - Blood by Automated count CBC Lab Routine Screening for deficiency anemia Expected: 12/30/2023 (Approximate), Expires: 12/29/2024 [facility] Comment on above: Expected: 12/30/2023 (Approximate), Expi res: 12/29/2024 Start: 12-30-2023 End: 12-29-2024 Comprehensive metabolic 1998 panel - Serum or Plasma Comprehensive metabolic panel Lab Routine Essential hypertension Expected: 12/30/2023 (Approximate), Expires: 12/29/2024 [facility] Comment on above: Expected: 12/30/2023 (Approximate), Expi res: 12/29/2024 Start: 12-30-2023 End: 02-28-2025 DBT Breast - bilateral screening Bilateral screening mammogram with tomosynthesis Imaging Routine Encounter for screening mammogram for malignant neoplasm of breast Expected: 12/30/2023, Expires: 02/28/2025 [facility] Comment on above: Expected: 12/30/2023, Expires: Start: 12-30-2023 End: 12-29-2024 DXA Skeletal system.axial Views for bone density DEXA bone density axial skeleton Imaging Routine Post-menopausal Expected: 12/30/2023, Expires: 12/29/2024 [facility] [employer] Comment on above: Expected: 12/30/2023, Expires: Start: 12-30-2023 End: 12-29-2024 Lipid 1996 panel - Serum or Plasma Lipid panel Lab Routine Hyperlipidemia LDL goal <100 Expected: 12/30/2023 (Approximate), Expires: 12/29/2024 [facility] [employer] [facility] Work Phone: Comment on above: Expected: 12/30/2023 (Approximate), Expi res: 12/29/2024 Start: 12-30-2023 End: 12-30-2023 Patient encounter procedure 12/30/2023 11:20 AM EDT Office Visit [facility] [address] [facility] [place] [address] [place] [address] Adriane Hubbard, SOO - SOIL FERTILITY EXTENSION SPECIALIST [address] [facility] [address] [place], [place] [phone] [facility] Start: 12-08-2023 Depresssion Monitoring Depresssion Monitoring [facility] Start: 12-06-2023 End: 12-06-2023 Patient encounter procedure 12/06/2023 1:45 PM EST Office Visit [facility] [address] [facility] [place] [address] [place] [phone] Jie Miranda MD [address] [facility] [place] [address] [facility] Start: 11-24-2023 Depresssion Monitoring Depresssion Monitoring [facility] Start: 11-14-2023 End: 11-14-2023 Patient encounter procedure 11/14/2023 2:40 PM EST Office Visit [facility] [address] [facility] [place] [address] BridenthalDianca, PERSONNEL GENERALIST MANAGER - SOIL FERTILITY EXTENSION SPECIALIST [address] [facility] [place] [address] [facility] Start: 10-30-2023 Creatinine measurement Creatinine Level [facility] Start: 10-30-2023 Diabetes mellitus screening Diabetes Screening [facility] Start: 10-30-2023 Potassium measurement Potassium Level [facility] Start: 10-30-2023 End: 10-30-2023 Patient encounter procedure [facility] Start: 10-29-2023 Screening for malignant neoplasm of colon FIT [facility] Start: 10-25-2023 Depresssion Monitoring Depresssion Monitoring [facility] Start: 10-16-2023 End: 10-16-2023 Patient encounter procedure 10/16/2023 2:00 PM EST Office Visit [facility] [address] [facility] [place] [address] BridenthNatalia rubinecca, PERSONNEL GENERALIST MANAGER - SOIL FERTILITY EXTENSION SPECIALIST [address] [facility] [place] [address] [facility] Start: 10-10-2023 End: 10-10-2023 Patient encounter procedure 10/10/2023 1:30 PM EST Office Visit [facility] [address] [facility] [place] [address] Juvencio Davila MD [address] [place] [address] [facility] Start: 09-17-2023 End: 09-17-2024 DXA Skeletal system Views for bone density DEXA bone density peripheral Imaging Routine Post-menopausal Expected: 09/17/2023, Expires: 09/17/2024 [facility] Work Phone: Comment on above: Expected: 09/17/2023, Expires: Start: 09-17-2023 End: 09-17-2023 Patient encounter procedure 09/17/2023 2:00 PM EST Office Visit [facility] [address] [facility] [place] [address] [place] [address] Adriane Hubbard, PERSONNEL GENERALIST MANAGER - SOIL FERTILITY EXTENSION SPECIALIST [address] [facility] [place] [address] [place] [address] [facility] Start: 09-05-2023 End: 09-05-2023 Patient encounter procedure 09/05/2023 8:15 AM EST Office Visit [facility] [address] [facility] [address] [place] [phone] Jie Miranda MD [address] [place] [address] [facility] Start: 08-23-2023 End: 08-23-2023 Patient encounter procedure 08/23/2023 7:45 AM EDT Appointment [facility] [address] [place] [phone] Jie Miranda MD [address] [facility] [place] [address] [facility] [address] Start: 08-23-2023 Subsequent hospital visit by physician 08/23/2023 7:45 AM EDT Hospital Encounter [facility] [address] [place] [phone] Jie Miranda MD [address] [facility] [place] [address] [facility] [address] Start: 08-19-2023 End: 08-19-2024 Thyrotropin [Units/volume] in Serum or Plasma TSH Lab Routine Weight loss Hot flashes Expected: 08/19/2023 (Approximate), Expires: 08/19/2024 [facility] [employer] Work Phone: Comment on above: Expected: 08/19/2023 (Approximate), Expi res: 08/19/2024 Start: 08-15-2023 End: 08-15-2023 Patient encounter procedure 08/15/2023 2:15 PM EDT Office Visit [facility] [address] [place] [address] [place] [address] Juvencio Davila MD [address] [place] [address] [place], [place] [phone] [facility] Start: 08-01-2023 End: 09-01-2023 Amyloid 42/40 ratio plasma - Miscellaneous Test [facility] Comment on above: Expected: 08/01/2023 (Approximate), Expi res: 09/01/2023 Start: 08-01-2023 End: 10-01-2023 CT Head WO contrast CT head wo IV contrast Imaging Routine Mild dementia without behavioral disturbance, psychotic disturbance, mood disturbance, or anxiety, unspecified dementia type (HCC) Expected: 08/01/2023, Expires: 10/01/2023 [facility] [employer] [facility] Work Phone: Comment on above: Expected: 08/01/2023, Expires: Start: 08-01-2023 End: 08-01-2023 Patient encounter procedure 08/01/2023 11:30 AM EDT Office Visit [facility] [address] [place] [address] [place] [address] Jie Miranda MD [address] [place] [phone] [facility] Start: 06-27-2023 End: 06-27-2023 Patient encounter procedure [facility] Start: 06-21-2023 COVID-19 Vaccine ( season) COVID-19 Vaccine () [facility] Start: 06-21-2023 Influenza vaccination Influenza Vaccine (#1) [facility] Start: 06-10-2023 End: 06-10-2023 Patient encounter procedure 06/10/2023 3:00 PM EDT Office Visit [address] [place] [address] Juvencio Davila MD [address] [place], [place] [address], [place] [address] [facility] Start: 06-03-2023 End: 06-03-2024 Sleep study with pap titration Sleep study with pap titration Sleep Center Routine TERESA on CPAP Expected: 06/03/2023 (Approximate), Expires: 06/03/2024 [facility] Work Phone: Comment on above: Expected: 06/03/2023 (Approximate), Expi res: 06/03/2024 Start: 05-27-2023 End: 05-27-2023 Patient encounter procedure 05/27/2023 10:00 AM EDT Office Visit [address] [place] [address] Juvencio Davila MD [address] [place] [address] [place] [address] [facility] Start: 05-22-2023 End: 05-22-2023 Patient encounter procedure 05/22/2023 9:45 AM EDT Office Visit [address] [place] [address] Juvencio Davila MD [address] [place] [address] [place] [address] [facility] Start: 05-08-2023 End: 05-08-2024 Comprehensive metabolic 1998 panel - Serum or Plasma Comprehensive metabolic panel Lab Routine Drug-induced movement disorder Expected: 05/08/2023 (Approximate), Expires: 05/08/2024 [facility] [employer] Work Phone: Comment on above: Expected: 05/08/2023 (Approximate), Expi res: 05/08/2024 Start: 04-28-2023 Depresssion Monitoring Depresssion Monitoring [facility] Start: 04-24-2023 End: 04-24-2023 Patient encounter procedure 04/24/2023 1:15 PM EDT Office Visit [facility] [address] [place] [address] [place] [address] Juvencio Davila MD [address] [place] [id number] [facility] Start: 03-26-2023 End: 03-26-2024 Large Joint Injection/Arthrocentesi s Large Joint Injection/Arthrocentesis Procedures Routine Greater trochanteric bursitis of right hip Expected: 03/26/2023 (Approximate), Expires: 03/26/2024 [facility] [employer] [facility] Work Phone: Comment on above: Expected: 03/26/2023 (Approximate), Expi res: 03/26/2024 Start: 01-25-2023 Screening for malignant neoplasm of breast Mammogram [facility] Start: 11-16-2022 Creatinine measurement Creatinine Level [facility] Start: 11-16-2022 Potassium measurement Potassium Level [facility] Start: 10-30-2022 End: 10-30-2022 ambulatory 10/30/2022 Lab Family Medicine [facility] Start: 10-29-2022 End: 10-29-2023 Comprehensive metabolic 1998 panel - Serum or Plasma Comprehensive metabolic panel Lab Routine Essential hypertension Prediabetes Expected: 10/29/2022 (Approximate), Expires: 10/29/2023 [facility] Comment on above: Expected: 10/29/2022 (Approximate), Expi res: 10/29/2023 Start: 10-29-2022 End: 10-29-2023 Hemoglobin A1c/Hemoglobin.total in Blood Hemoglobin A1c Lab Routine Prediabetes Expected: 10/29/2022 (Approximate), Expires: 10/29/2023 [facility] [employer] Comment on above: Expected: 10/29/2022 (Approximate), Expi res: 10/29/2023 Start: 10-29-2022 End: 10-29-2023 Hemoglobin.gastrointest inal.lower [Presence] in Stool by Immunoassay Fecal Immunochemical Test Microbiology Routine Screening for colon cancer Expected: 10/29/2022 (Approximate), Expires: 10/29/2023 [facility] [employer] Comment on above: Expected: 10/29/2022 (Approximate), Expi res: 10/29/2023 Start: 10-29-2022 End: 10-29-2023 Lipid 1996 panel - Serum or Plasma Lipid panel Lab Routine Hyperlipidemia LDL goal <100 Expected: 10/29/2022 (Approximate), Expires: 10/29/2023 [facility] [employer] [facility] Work Phone: Comment on above: Expected: 10/29/2022 (Approximate), Expi res: 10/29/2023 Start: 10-29-2022 End: 12-28-2023 MG Breast - bilateral Screening Bilateral screening mammogram Imaging Routine Well female exam with routine gynecological exam Expected: 10/29/2022, Expires: 12/28/2023 [facility] [employer] Comment on above: Expected: 10/29/2022, Expires: Start: 10-26-2022 Screening for malignant neoplasm of colon [facility] [employer] Start: 03-03-2021 COVID-19 Vaccine (3 - Booster for Pfizer series) COVID-19 Vaccine (3 - Booster for Pfizer series) [facility] [employer] Start: 03-03-2021 COVID-19 Vaccine (3 - Pfizer series) COVID-19 Vaccine (3 - Pfizer series) [facility] [employer] Start: 2017 RSV Immunization aged 60 or older (1 - 1-dose 60+ series) RSV Immunization aged 60 or older (1 - 1-dose 60+ series) [facility] [employer] Start: 2017 RSV Immunization for Adults (1 - Risk 60-74 years 1-dose series) RSV Immunization for Adults (1 - Risk 60-74 years 1-dose series) [facility] Start: 03-15-2017 DTaP/Tdap/Td Vaccines (2 - Td or Tdap) DTaP/Tdap/Td Vaccines (2 - Td or Tdap) [facility] Start: 09-24-2005 Hepatitis B Vaccines (2 of 3 - 19+ 3-dose series) Hepatitis B Vaccines (2 of 3 - 19+ 3-dose series) [facility] Start: 09-24-2005 Hepatitis B Vaccines (2 of 3 - 3-dose series) Hepatitis B Vaccines (2 of 3 - 3-dose series) [facility] Start: 1987 Screening for malignant neoplasm of cervix HPV/Cotest [facility] Start: 1976 Pneumococcal Vaccine: 50+ Years (1 of 2 - PCV) Pneumococcal Vaccine: 50+ Years (1 of 2 - PCV) [facility] Start: 1975 Hepatitis C screening Hepatitis C Screening [facility] Start: 1963 Pneumococcal Vaccine: 65+ Years (1 - PCV) Pneumococcal Vaccine: 65+ Years (1 - PCV) [facility] Start: 01-07-1958 Examination of skin Derm Melanoma Skin Check [facility] Start: 1957 Annual wellness visit Medicare Initial Physical (IPPE) [facility] Start: 1957 Echocardiography Echocardiogram [facility] Start: 1957 Medicare Annual Wellness (AWV) Medicare Annual Wellness (AWV) [facility] Start: 1957 Screening for malignant neoplasm of colon [facility] Start: 1955 Screening for osteoporosis Bone Density Scan [facility] [employer] End: 08-23-2023 CT Head WO contrast [facility] [employer] Comment on above: Once for 1 Occurrences starting 08/23/20 23 until 08/23/2023 Cytology Cervical or vaginal smear or scraping study Pap Smear Pathology and Cytology Routine Well female exam with routine gynecological exam Ordered: 10/29/2022 [facility] [employer] Comment on above: Ordered: 10/29/2022 End: 07-22-2025 MR Thoracic spine WO and W contrast IV [facility] [employer] Work Phone: Comment on above: Once for 1 Occurrences starting 07/22/20 25 until 07/22/2025 OUTSIDE PROCEDURE SCAN OUTSIDE P ROCEDURE SCAN Procedures Ordered: 08/22/2023 [facility] [employer] [facility] Comment on above: Ordered: 08/22/2023 Tissue exam Tissue exam Path ology and Cytology Routine 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 Ordered: 10/10/2023 [facility] Work Phone: Comment on above: Ordered: 10/10/2023 Tissue exam [facility] Work Phone: Comment on above: Release Upon Ordering for 1 Occurrences starting 08/11/2024 End: 10-16-2024 XR Lumbar spine Views W flexion and W extension [facility] Work Phone: Comment on above: Once for 1 Occurrences starting 10/16/20 24 until 10/16/2024 Immunizations Immunization Date Immunization Notes Care Provider Sivan bone 10-29-2022 zoster vaccine recombinant H keily Bustillo PERSONNEL GENERALIST MANAGER - SOIL FERTILITY EXTENSION SPECIALIST Work Phone: [facility] [employer] 08-22-2022 influenza, injectabl e, quadrivalent, preservative free Shyla Bustillo PERSONNEL GENERALIST MANAGER - SOIL FERTILITY EXTENSION SPECIALIST Work Phone: [facility] [employer] 08-22-2022 influenza virus vacc ine, unspecified formulation Juvencio Davila MD Work Phone: [facility] [employer] 05-01-2022 zoster vaccine recombinant H keily Bustillo PERSONNEL GENERALIST MANAGER - SOIL FERTILITY EXTENSION SPECIALIST Work Phone: [facility] [employer] 08-21-2020 influenza virus vacc ine, unspecified formulation Shyla Bustillo PERSONNEL GENERALIST MANAGER - SOIL FERTILITY EXTENSION SPECIALIST Work Phone: [facility] [employer] 08-20-2019 influenza virus vacc ine, unspecified formulation Shyla Bustillo PERSONNEL GENERALIST MANAGER - SOIL FERTILITY EXTENSION SPECIALIST Work Phone: [facility] [employer] 08-08-2018 influenza virus vacc ine, unspecified formulation Shyla Bustillo PERSONNEL GENERALIST MANAGER - SOIL FERTILITY EXTENSION SPECIALIST Work Phone: [facility] [employer] 08-09-2017 influenza virus vacc ine, unspecified formulation Shyla Bustillo PERSONNEL GENERALIST MANAGER - SOIL FERTILITY EXTENSION SPECIALIST Work Phone: [facility] [employer] 02-15-2017 tetanus toxoid, redu goldie diphtheria toxoid, and acellular pertussis vaccine, adsorbed Shlya Bustillo PERSONNEL GENERALIST MANAGER - SOIL FERTILITY EXTENSION SPECIALIST Work Phone: [facility] 08-27-2005 hepatitis B vaccine, adult dosage Shyla Bustillo PERSONNEL GENERALIST MANAGER - SOIL FERTILITY EXTENSION SPECIALIST Work Phone: [facility] [employer] Payers Date Payer Category Payer Self-pay [id number] 2023 Medicare [id number] 2023 Medicare supplementa l policy (as second payer) [employer] [id number] 2023 Unknown AAR AARP [id number] 2023-Present [address] [place] [address] Supplement [id number] 2023 Medicare [id number] 2023 Unknown [id number] 2011 Private Health Insurance 1955 Unknown [id number] Private Health Insurance [id number] Unknown [id number] Unknown [id number] Unknown [id number] Unknown [id number] Unknown [id number] Unknown [id number] Unknown [id number] Social History Date Type Detail Facility Start: 12-04-2021 End: 01-03-2023 Tobacco smoking status NHIS Unknown if ever smoked [facility] Start: 02-26-[address] [facility] Start: 02-26-2019 Spouse/ Signif icant Other [facility] Start: 03-03-[address] Non-sm[address] [facility] Start: 1955 Sex Assigned At Female [facility] Start: 10-29-2022 End: 03-08-2025 Alcohol intake Current non-drinker of alcohol (finding) [facility] Start: 1955 Sex Assigned At Not on file S [facility] Start: 10-29-2022 End: 03-08-2025 History of Social function [facility] Start: 10-29-2022 End: 03-08-2025 Tobacco use panel [facility] Start: 10-19-2022 End: 06-27-2023 Exposure to SARS-CoV-2 (event) Not sure [facility] Adolescent depressio n screening assessment 7 [facility] How often to you hav e a drink containing alcohol? Never [facility] (I/We) worried wheth er (my/our) food would run out before (I/we) got money to buy more. Never true [facility] In the past 12 month s, was there a time when you were not able to pay the mortgage or rent on time? No [facility] Start: 05-21-2022 Sex Female (finding) [facility] Are you now , , , , never or living with a partner? [facility] How many standard drinks containing alcohol do you have on a typical day? 1 or 2 [facility] Do you feel stress - tense, restless, nervous, or anxious, or unable to sleep at night because your mind is troubled all the time - these days [OSQ] To some extent [facility] Functional Status Date Assessment Result Facility 03-08-2025 Generalized anxiety disorder 7 item (ELIZABETH-7) [facility] 03-08-2025 Feeling nervous, anx ious or on edge 1 03/08/2025 9:47 AM EDT Mychart, Generic Several days [facility] 03-08-2025 Over the past 2 week s have you not been able to stop or control worrying 1 03/08/2025 9:47 AM EDT Mychart, Generic Several days [facility] 03-08-2025 Worrying too much ab out different things 2 03/08/2025 9:47 AM EDT Mychart, Generic More than half the days [facility] 03-08-2025 Trouble relaxing 1 03/08/2025 9: 47 AM EDT Mychart, Generic Several days [facility] 03-08-2025 Being so restless th at it is hard to sit still 1 03/08/2025 9:47 AM EDT Mychart, Generic Several days [facility] 03-08-2025 Becoming easily anno yed or irritable. 2 03/08/2025 9:47 AM EDT Mychart, Generic More than half the days [facility] 03-08-2025 Feeling afraid as if something awful might happen 1 03/08/2025 9:47 AM EDT Mychart, Generic Several days [facility] 03-08-2025 Little interest or p ann-marie in doing things Several days 03/08/2025 9:45 AM EDT Mychart, Generic Several days [facility] 03-08-2025 Feeling down, depres sed, or hopeless Several days 03/08/2025 9:45 AM EDT Mychart, Generic Several days [facility] 03-08-2025 Trouble falling or s taying asleep, or sleeping too much Nearly every day 03/08/2025 9:45 AM EDT Mychart, Generic Nearly every day [facility] 03-08-2025 Feeling tired or hav ing little energy More than half the days 03/08/2025 9:45 AM EDT Mychart, Generic More than half the days [facility] 03-08-2025 Poor appetite or overeating Kerline ral days 03/08/2025 9:45 AM EDT Mychart, Generic Several days [facility] 03-08-2025 Feeling bad about yo urself-or that you are a failure or have let yourself or your family down More than half the days 03/08/2025 9:45 AM EDT Mychart, Generic More than half the days [facility] 03-08-2025 Trouble concentratin g on things, such as reading the newspaper or watching television More than half the days 03/08/2025 9:45 AM EDT Mychart, Generic More than half the days [facility] 03-08-2025 Moving or speaking s o slowly that other people could have noticed. Or the opposite - being so fidgety or restless that you have been moving around a lot more than usual Nearly every day 03/08/2025 9:45 AM EDT Mychart, Generic Nearly every day [facility] 03-08-2025 Thoughts that you wo uld be better off , or of hurting yourself in some way Not at all 03/08/2025 9:45 AM EDT Mychart, Generic Not at all [facility] 03-08-2025 How difficult have t hese problems made it for you to do your work, take care of things at home, or get along with other people? Somewhat difficult 03/08/2025 9:45 AM EDT Mychart, Generic Somewhat difficult [facility] 03-08-2025 Total score [AUDIT-C] 0 03/08/20 9:42 AM EDT Mychart, Generic [facility] 03-08-2025 How often to you hav e a drink containing alcohol? Never 03/08/2025 9:42 AM EDT Mychart, Generic Never [facility] 03-08-[address] inks containing alcohol do you have on a typical day? 1 or 2 03/08/2025 9:42 AM EDT Mychart, Generic 1 or 2 [facility] [employer] 03-08-2025 How often do you hav e 6 or more drinks on 1 occasion? Never 03/08/2025 9:42 AM EDT Mychart, Generic Never [facility] 03-08-2025 Patient Health Quest ionnaire 2 item (PHQ-2) [Reported] [facility] 03-08-2025 PHQ-9 quick depressi on assessment panel [Reported.PHQ] [facility] Clinical Notes 10-29-2022 to 08-09-2025 Telephone Encounter - SOO Mtz CNP - 08/09/2025 9:14 AM EDTTelephone Encounter - SOO Mtz CNP - 08/09/2025 9:14 AM EDTMandi Faustina - 03/08/2025 10:20 AM EDT Note Date & Type Note Facility 08-09-2025 Telephone encounter Note Please schedule patient for follow up appointment for continued refills. Requested Prescriptions Signed Prescriptions Disp Refills valbenazine tosylate (Ingrezza) 40 MG capsule 30 capsule 1 Sig: Take 1 capsule (40 mg) by mouth daily. Authorizing Provider: VIOLET CASTELLANOS [facility] 08-09-2025 Miscellaneous Notes Please schedule patient for follow up appointment for continued refills. Requested Prescriptions Signed Prescriptions Disp Refills valbenazine tosylate (Ingrezza) 40 MG capsule 30 capsule 1 Sig: Take 1 capsule (40 mg) by mouth daily. Authorizing Provider: VIOLET CASTELLANOS documented in this encounter [facility] 06-24-2025 Telephone encounter Note Reviewed chart. Refill appropriate. RX sent. [facility] 06-24-2025 Miscellaneous Notes Reviewed chart. Refill appropriate. RX sent. Prescription Request: SIMVASTATIN 40 MG TABLET Last medication check: 03/08/25 Last physical exam 12/08/24 Next scheduled appointment: 10/12/25 Last date of refill on this medication 01/01/25 ( qty 90 refill 1) documented in this encounter [facility] 06-24-2025 Telephone encounter Note Prescription Request: SIMVASTATIN 40 MG TABLET Last medication check: 03/08/25 Last physical exam 12/08/24 Next scheduled appointment: 10/12/25 Last date of refill on this medication 01/01/25 ( qty 90 refill 1) [facility] 05-06-2025 Telephone encounter Note Name of Caller: [employer] Contact Reason for Appointment: Daughter will call back to schedule the 05/06/25 missed appointment when she is able to check transportation for [place]. Please be advised. Office Name: [facility] 05-06-2025 Miscellaneous Notes Name of Caller: Leanna Contact Reason for Appointment: Daughter will call back to schedule the 05/06/25 missed appointment when she is able to check transportation for [place]. Please be advised. Office Name: [facility] documented in this encounter [facility] 05-03-2025 Telephone encounter Note Requested Prescriptions Signed Prescriptions Disp Refills valbenazine tosylate (Ingrezza) 40 MG capsule 30 capsule 3 Sig: Take 1 capsule (40 mg) by mouth daily. Authorizing Provider: VIOLET CASTELLANOS [facility] 05-03-2025 Miscellaneous Notes Requested Prescriptions Signed Prescriptions Disp Refills valbenazine tosylate (Ingrezza) 40 MG capsule 30 capsule 3 Sig: Take 1 capsule (40 mg) by mouth daily. Authorizing Provider: VIOLET CASTELLANOS documented in this encounter [facility] 03-08-2025 Evaluation + Plan note Associated Problem(s): Congestive heart failure (HCC) Stable. Followed by cardiology continue current medications [facility] 03-08-2025 Miscellaneous Notes Associated Problem(s): Congestive heart failure (HCC) Stable. Followed by cardiology continue current medications Associated Problem(s): Essential hypertension Controlled. Blood pressure 117/72, continue metoprolol 25 mg daily and lisinopril 2.5 mg daily Associated Problem(s): Anxiety Follow-up with psychiatry as directed Associated Problem(s): TERESA on CPAP Patient wearing CPAP nightly. Reports good sleep and feels well rested during the daytime. Associated Problem(s): Mild dementia without behavioral disturbance, psychotic disturbance, mood disturbance, or anxiety, unspecified dementia type (HCC) Stable. Continue to follow-up with psychiatry and neurology Associated Problem(s): Tardive dyskinesia Improving. Continue follow-up with neurology documented in this encounter [facility] 03-08-2025 Evaluation + Plan note Associated Problem(s): Essential hypertension Controlled. Blood pressure 117/72, continue metoprolol 25 mg daily and lisinopril 2.5 mg daily [facility] 03-08-2025 Evaluation + Plan note Associated Problem(s): Anxiety Follow-up with psychiatry as directed [facility] 03-08-2025 Evaluation + Plan note Associated Problem(s): TERESA on CPAP Patient wearing CPAP nightly. Reports good sleep and feels well rested during the daytime. [facility] 03-08-2025 Evaluation + Plan note Associated Problem(s): Mild dementia without behavioral disturbance, psychotic disturbance, mood disturbance, or anxiety, unspecified dementia type (HCC) Stable. Continue to follow-up with psychiatry and neurology [facility] 03-08-2025 Evaluation + Plan note Associated Problem(s): Tardive dyskinesia Improving. Continue follow-up with neurology [facility] 03-08-2025 History of Presen t illness Narrative Patient was identified by name and Date of . Health Maintenance Due Topic Derm Melanoma Skin Check-NEEDS COMPLETED Depression Monitoring-completed SDOH/ELIZABETH/PHQ-need completed-sent via [facility] AWV/fasting labs---needs scheduled for 11/2025 Images from the original note were not included. 03/08/2025 Kamila Joseph (: 1955) is a 69 y.o. female , Established patient, here for evaluation of the following chief complaint(s): Medication Check and Health Maintenance (/ Derm Melanoma Skin Check-NEEDS COMPLETED/ Depression Monitoring-completed//) ASSESSMENT/PLAN: 1. TERESA on CPAP Assessment & Plan: Patient wearing CPAP nightly. Reports good sleep and feels well rested during the daytime. 2. Anxiety Assessment & Plan: Follow-up with psychiatry as directed 3. Congestive heart failure, unspecified HF chronicity, unspecified heart failure type (HCC) Assessment & Plan: Stable. Followed by cardiology continue current medications 4. Tardive dyskinesia Assessment & Plan: Improving. Continue follow-up with neurology 5. Mild dementia without behavioral disturbance, psychotic disturbance, mood disturbance, or anxiety, unspecified dementia type (HCC) Assessment & Plan: Stable. Continue to follow-up with psychiatry and neurology 6. Essential hypertension Assessment & Plan: Controlled. Blood pressure 117/72, continue metoprolol 25 mg daily and lisinopril 2.5 mg daily Follow up for with primary care provider as scheduled. SUBJECTIVE/OBJECTIVE: HPI - Kamila Joseph (: 1955) is a 69 y.o. female , Established patient, here for the evaluation of the following chief complaint(s): Medication Check and Health Maintenance (/ Derm Melanoma Skin Check-NEEDS COMPLETED/ Depression Monitoring-completed//) Patient presents for med check. Reports overall she is doing well and her gait has gotten a lot steadier over the past couple months after decreasing the Ingrezza with neurology for her movement disorder. Reports she still has a lot of mouth movement but overall is greatly improved. Sees neurology in April. - reports a fall going up the steps over the weekend, denies any injuries. Depression anxiety- Psychiatry- sees tomorrow, Dr. Argueta-denies any suicidal or homicidal ideation. Does report her anxiety can be pretty bad. Continues to take Klonopin twice daily and BuSpar, fluoxetine. TERESA-wearing CPAP at night Heart failure-has been stable denies any chest pain or shortness of breath. She does see cardiology Hypertension-blood pressure has been good Current Medications[1] Review of Systems Constitutional: Negative. HENT: Negative. Respiratory: Negative. Cardiovascular: Negative. Gastrointestinal: Negative. Genitourinary: Negative for difficulty urinating. Musculoskeletal: Positive for arthralgias. Neurological: Positive for light-headedness (occasional). Negative for headaches. Psychiatric/Behavioral: Positive for decreased concentration and sleep disturbance. Negative for behavioral problems, dysphoric mood, self-injury and suicidal ideas. The patient is nervous/anxious. Vitals: 03/08/25 1001 BP: 117/72 Pulse: 82 Resp: 18 Temp: 37.2 C (98.9 F) TempSrc: Infrared SpO2: 96% Weight: 182 lb 9.6 oz (82.8 kg) Physical Exam Vitals reviewed. Constitutional: General: She is not in acute distress. Appearance: Normal appearance. She is not ill-appearing. HENT: Head: Normocephalic and atraumatic. Mouth/Throat: Mouth: Mucous membranes are moist. Pharynx: Oropharynx is clear. No posterior oropharyngeal erythema. Eyes: Conjunctiva/sclera: Conjunctivae normal. Neck: Vascular: No carotid bruit. Cardiovascular: Rate and Rhythm: Normal rate and regular rhythm. Pulses: Normal pulses. Heart sounds: Normal heart sounds. Pulmonary: Effort: Pulmonary effort is normal. Breath sounds: Normal breath sounds. Musculoskeletal: Right lower leg: No edema. Left lower leg: No edema. Comments: Gait steady, able to get on and off the exam table without assistance Lymphadenopathy: Cervical: No cervical adenopathy. Neurological: Mental Status: She is alert and oriented to person, place, and time. Psychiatric: Mood and Affect: Mood normal. Behavior: Behavior normal. Thought Content: Thought content normal. An electronic signature was used to authenticate this note. Adriane Hubbard, SOO - DIONY 03/08/2025 4:54 PM [1] Current Outpatient Medications Medication Sig Dispense Refill amantadine (Symmetrel) 100 MG tablet Take 1 tablet (100 mg) by mouth 2 times daily. 180 tablet 3 aspirin 81 MG EC tablet Take 81 mg by mouth daily. busPIRone (Buspar) 15 MG tablet TAKE 1 TABLET BY MOUTH TWICE A DAY 180 tablet 1 Calcium Carb-Cholecalciferol 600-5 MG-MCG tablet Take 2 tablets by mouth daily. 60 tablet 5 clonazePAM (KlonoPIN) 0.5 MG tablet Take 0.5 tablets (0.25 mg) by mouth 2 times daily. 30 tablet 0 diclofenac (Voltaren) 75 MG EC tablet TAKE 1 TABLET BY MOUTH TWICE A DAY DO NOT CRUSH, CHEW OR SPLIT 60 tablet 0 diphenhydrAMINE (BENADryl) 25 MG tablet Take by mouth. esomeprazole (NexIUM) [address] capsule Take 20 mg by mouth every morning (before breakfast). Do not open capsule. FLUoxetine (PROzac) 40 MG capsule Take 40 mg by mouth daily. folic acid (Folvite) 1 MG tablet TAKE 1 TABLET BY MOUTH EVERY DAY 90 tablet 1 lisinopril 2.5 MG tablet Take 2.5 mg by mouth daily. metoprolol succinate XL (Toprol-XL) 25 MG 24 hr tablet TAKE 1 TABLET BY MOUTH EVERY DAY 90 tablet 1 Multiple Vitamin (multivitamin) tablet Take 1 tablet by mouth daily. simvastatin (Zocor) 40 MG tablet TAKE 1 TABLET BY MOUTH EVERY DAY NIGHTLY 90 tablet 1 valbenazine tosylate (Ingrezza) 40 MG capsule Take 1 capsule (40 mg) by mouth daily. 30 capsule 3 Ascorbic Acid (vitamin C) 1000 MG tablet Take 1,000 mg by mouth daily. (Patient not taking: Reported on 03/08/2025) No current facility-administered medications for this visit. documented in this encounter [facility] 03-08-2025 Instructions Janki Weems - 03/08/2025 10:20 AM EDT documented in this encounter [facility] 03-08-2025 Miscellaneous Notes Reviewed chart. Refill appropriate. RX sent. Prescription Request: FOLIC ACID 1 MG TABLET Last medication check: 12/08/24 Last physical exam: 12/08/24 Next scheduled appointment: 03/08/25 Last date of refill on this medication 09/03/24 ( qty 90 refill 1) documented in this encounter [facility] 03-08-2025 Telephone encounter Note Reviewed chart. Refill appropriate. RX sent. [facility] 03-08-2025 Telephone encounter Note Prescription Request: FOLIC ACID 1 MG TABLET Last medication check: 12/08/24 Last physical exam: 12/08/24 Next scheduled appointment: 03/08/25 Last date of refill on this medication 09/03/24 ( qty 90 refill 1) [facility] 03-05-2025 Telephone encounter Note Crystal notified. No further action needed. Closing encounter. [facility] 03-05-2025 Miscellaneous Notes Crystal notified. No further action needed. Closing encounter. Requested Prescriptions Signed Prescriptions Disp Refills amantadine (Symmetrel) 100 MG tablet 180 tablet 3 Sig: Take 1 tablet (100 mg) by mouth 2 times daily. Authorizing Provider: VIOLET CASTELLANOS Name of caller: Leanna Contact phone number: [phone] Relationship to Patient: family member daughter Provider: Dr Miranda Practice: Neurology Chief Complaint/Reason for Call: Leanna called stating that she called [facility] for a refill on patients amantadine (Symmetrel) 100 MG tablet and was told that medication had been discontinued. Script was sent to the [facility] and Leanna stated it should have gone to the [facility] on file. Please advise. Best time of day caller can be reached: Any Patient advised that office/PCP has 24-48 business hours to return their call: N/A documented in this encounter [facility] 03-05-2025 Telephone encounter Note Requested Prescriptions Signed Prescriptions Disp Refills amantadine (Symmetrel) 100 MG tablet 180 tablet 3 Sig: Take 1 tablet (100 mg) by mouth 2 times daily. Authorizing Provider: VIOLET CASTELLANOS [facility] 03-05-2025 Telephone encounter Note Name of caller: Leanna Contact phone number: [phone] Relationship to Patient: family member daughter Provider: Dr Miranda Practice: Neurology Chief Complaint/Reason for Call: Leanna called stating that she called [facility] for a refill on patients amantadine (Symmetrel) 100 MG tablet and was told that medication had been discontinued. Script was sent to the [facility] and Leanna stated it should have gone to the [facility] on file. Please advise. Best time of day caller can be reached: Any Patient advised that office/PCP has 24-48 business hours to return their call: N/A [facility] 03-02-2025 Telephone encounter Note Prescription Request: METOPROLOL SUCC ER 25 MG TAB Last medication check: 12/08/24 Last physical exam: 12/08/24 Next scheduled appointment: 03/08/25 Last date of refill on this medication 09/07/24 ( qty 90 refill 1) [facility] 03-02-2025 Miscellaneous Notes Prescription Request: METOPROLOL SUCC ER 25 MG TAB Last medication check: 12/08/24 Last physical exam: 12/08/24 Next scheduled appointment: 03/08/25 Last date of refill on this medication 09/07/24 ( qty 90 refill 1) documented in this encounter [facility] 02-10-2025 History of Presen t illness Narrative Department of Neurological Sciences Visit Note CHIEF COMPLAINT: Chief Complaint Patient presents with Follow-up Neuroleptic - induced tardive dyskinesia Main diagnoses: Tardive dyskinesias HISTORY OF PRESENT ILLNESS: The patient is a 69 y.o. female today presents to the Neurology clinic with history of tremor that the dyskinesias, today patient presented to the neurology clinic accompanied by her granddaughter relation of her kidney issues. Patient developed severe diabetic dyskinesia a year ago. Patient was started on Ingrezza 80 mg p.o. daily sequently was decreased to 40 mg p.o. daily. 3 to 4 months ago patient was noticed that she was developing rigidity decreased facial expression and problems with gait. 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 Then, we tried to switch patient to Ingrezza 40 mg every other day but then patient oral dyskinesia work got significantly worse. Addition patient felt and broke her right arm. A month ago patient was reevaluated in the neurology office and she was put back on Ingrezza 40 mg p.o. daily and in addition patient was started on amantadine 100 mg p.o. nightly for a month and then she has increase it to twice a day. Patient denied any side effect from medication and also her parkinsonian symptoms have improved significantly. Patient walk a good pace. Her rigidity have improved she denied any other side effects from medication. Her oral ulcers have disappeared. Her balance and function improved significantly. Extrapyramidal syndrome. Secundary diagnoses: Anxiety, osteoarthritis Medications: Current Outpatient Medications Medication Sig Dispense Refill Ascorbic Acid (vitamin C) 1000 MG tablet Take 1,000 mg by mouth daily. aspirin 81 MG EC tablet Take 81 mg by mouth daily. busPIRone (Buspar) 15 MG tablet TAKE 1 TABLET BY MOUTH TWICE A DAY 180 tablet 1 Calcium Carb-Cholecalciferol 600-5 MG-MCG tablet Take 2 tablets by mouth daily. 60 tablet 5 clonazePAM (KlonoPIN) 0.5 MG tablet Take 0.5 tablets (0.25 mg) by mouth 2 times daily. 30 tablet 0 diclofenac (Voltaren) 75 MG EC tablet TAKE 1 TABLET BY MOUTH TWICE A DAY DO NOT CRUSH, CHEW OR SPLIT 60 tablet 0 diphenhydrAMINE (BENADryl) 25 MG tablet Take by mouth. FLUoxetine (PROzac) 40 MG capsule Take 40 mg by mouth daily. folic acid (Folvite) 1 MG tablet TAKE 1 TABLET BY MOUTH EVERY DAY 90 tablet 1 lisinopril 2.5 MG tablet Take 2.5 mg by mouth daily. metoprolol succinate XL (Toprol-XL) 25 MG 24 hr tablet TAKE 1 TABLET BY MOUTH EVERY DAY 90 tablet 1 Multiple Vitamin (multivitamin) tablet Take 1 tablet by mouth daily. simvastatin (Zocor) 40 MG tablet TAKE 1 TABLET BY MOUTH EVERY DAY NIGHTLY 90 tablet 1 valbenazine tosylate (Ingrezza) 40 MG capsule Take 1 capsule (40 mg) by mouth daily. 30 capsule 3 amantadine (Symmetrel) 100 MG tablet Take 1 tablet (100 mg) by mouth 2 times daily. 180 tablet 3 No current facility-administered medications for this visit. Allergies: Vraylar [cariprazine] Social History: Social History Socioeconomic History Marital status: Spouse name: Not on file Number of children: Not on file Years of education: Not on file Highest education level: Not on file Occupational History Not on file Tobacco Use Smoking status: Never Smokeless tobacco: Never Vaping Use Vaping status: Never Used Substance and Sexual Activity Alcohol use: No Drug use: No Sexual activity: Defer Other Topics Concern Not on file Social History Narrative Not on file Social Drivers of Health Financial Resource Strain: Low Risk (12/30/2023) Overall Financial Resource Strain (CARDIA) Difficulty of Paying Living Expenses: Not hard at all Food Insecurity: No Food Insecurity (12/30/2023) Hunger Vital Sign Worried About Running Out of Food in the Last Year: Never true Ran Out of Food in the Last Year: Never true Transportation Needs: No Transportation Needs (12/30/2023) PRAPARE - Transportation Lack of Transportation (Medical): No Lack of Transportation (Non-Medical): No Physical Activity: Inactive (12/30/2023) Exercise Vital Sign Days of Exercise per Week: 0 days Minutes of Exercise per Session: 0 min Stress: Not on file Social Connections: Not on file Intimate Partner Violence: Not on file Housing Stability: Low Risk (12/30/2023) Housing Stability Vital Sign Unable to Pay for Housing in the Last Year: No Number of Places Lived in the Last Year: 1 Unstable Housing in the Last Year: No Family History: Family History Problem Relation Name Age of Onset Substance Abuse Mother Heart disease Mother Heart disease Father Prostate cancer Father Breast cancer Mother's Sister REVIEW OF SYSTEMS: Review of Systems onstitutional: Positive for activity change. HENT: Positive for rhinorrhea. Eyes: Negative. Respiratory: Negative. Cardiovascular: Negative. Gastrointestinal: Negative. Endocrine: Negative. Genitourinary: Negative. Musculoskeletal: Positive for arthralgias and joint swelling. Skin: Negative. Allergic/Immunologic: Negative. Neurological: Positive for tremors, speech difficulty and weakness. Hematological: Bruises/bleeds easily. Psychiatric/Behavioral: Positive for confusion and decreased concentration. The patient is nervous/anxious. PHYSICAL EXAM: Vitals: BP 124/78 Ht 5' 2 (1.575 m) Wt 182 lb (82.6 kg) BMI 33.29 kg/m Physical Exam Constitutional: Appearance: Normal appearance. HENT: Head: Normocephalic and atraumatic. Nose: Nose normal. Mouth/Throat: Mouth: Mucous membranes are moist. Pharynx: Oropharynx is clear. Eyes: General: Vision grossly intact. Gaze aligned appropriately. Extraocular Movements: Extraocular movements intact. Conjunctiva/sclera: Conjunctivae normal. Pupils: Pupils are equal, round, and reactive to light. Neck: Trachea: Trachea and phonation normal. Cardiovascular: Rate and Rhythm: Normal rate and regular rhythm. Pulses: Normal pulses. Heart sounds: Normal heart sounds. Pulmonary: Effort: Pulmonary effort is normal. Breath sounds: Normal breath sounds. Abdominal: General: Abdomen is flat. Bowel sounds are normal. Palpations: Abdomen is soft. Musculoskeletal: General: Normal range of motion. Cervical back: Normal range of motion and neck supple. Skin: General: Skin is warm and dry. Neurological: General: No focal deficit present. Mental Status: She is alert and oriented to person, place, and time. Mental status is at baseline. Cranial Nerves: Cranial nerves 2-12 are intact. Deep Tendon Reflexes: Reflexes are normal and symmetric. Reflex Scores: Tricep reflexes are 2+ on the right side and 2+ on the left side. Bicep reflexes are 2+ on the right side and 2+ on the left side. Brachioradialis reflexes are 2+ on the right side and 2+ on the left side. Patellar reflexes are 2+ on the right side and 2+ on the left side. Achilles reflexes are 2+ on the right side and 2+ on the left side. Psychiatric: Attention and Perception: Attention normal. Mood and Affect: Mood normal. Speech: Speech normal. Behavior: Behavior normal. Behavior is cooperative. Thought Content: Thought content normal. Cognition and Memory: Cognition normal. Judgment: Judgment normal. Impression: No diagnosis found. Lactic induced tardive dyskinesia Plan: We are going to maintain patient on both NTD 100 mg p.o. twice daily as well as Ingrezza 40 mg p.o. daily. The balance of both medication is working well patient denied any side effects. 2. New prescription for amantadine was sent to pharmacy. 3. Patient will return to the neurology clinic in 3 months. Her oral dyskinesia get worse we will try Botox injections in both masseters and the next clinic visit. Thank you Jie Miranda MD documented in this encounter [facility] 01-06-2025 Telephone encounter Note Requested Prescriptions Signed Prescriptions Disp Refills valbenazine tosylate (Ingrezza) 40 MG capsule 30 capsule 3 Sig: Take 1 capsule (40 mg) by mouth daily. Authorizing Provider: VIOLET CASTELLANOS [facility] 01-06-2025 Miscellaneous Notes Requested Prescriptions Signed Prescriptions Disp Refills valbenazine tosylate (Ingrezza) 40 MG capsule 30 capsule 3 Sig: Take 1 capsule (40 mg) by mouth daily. Authorizing Provider: VIOLET CASTELLANOS documented in this encounter [facility] 01-01-2025 History of Presen t illness Narrative Department of Neurological Sciences Visit Note CHIEF COMPLAINT: Chief Complaint Patient presents with Follow-up 1 month follow up Main diagnoses: Tardative dyskinesia HISTORY OF PRESENT ILLNESS: The patient is a 69 y.o. female today presents to the Neurology clinic with history of Tardative dyskinesia. She was evaluated on December 07, 2024 because increased rigidity and worsening of her oral dyskinesia.. 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 The doses of Ingrezza was decreased to 80 mg p.o. daily to 40 mg p.o. every other day. Patient reports that after 3 days her oral dyskinesias returned. Then patient develop again also seen her tongue and cheeks. Patient increase the doses back to 40 mg p.o. daily and apparently she is doing well. Still have some dysarthria as well as dyskinesis. Postural reflexes are impaired. Patient fell a month ago and fractured her elbow. Now patient is using a cane. Patient denied any new neurological problems. Secundary diagnoses: Sciatic depression Medications: Current Outpatient Medications Medication Sig Dispense Refill Ascorbic Acid (vitamin C) 1000 MG tablet Take 1,000 mg by mouth daily. aspirin 81 MG EC tablet Take 81 mg by mouth daily. busPIRone (Buspar) 15 MG tablet TAKE 1 TABLET BY MOUTH TWICE A DAY 180 tablet 1 Calcium Carb-Cholecalciferol 600-5 MG-MCG tablet Take 2 tablets by mouth daily. 60 tablet 5 clonazePAM (KlonoPIN) 0.5 MG tablet Take 0.5 tablets (0.25 mg) by mouth 2 times daily. 30 tablet 0 diclofenac (Voltaren) 75 MG EC tablet TAKE 1 TABLET BY MOUTH TWICE A DAY DO NOT CRUSH, CHEW OR SPLIT 60 tablet 0 diphenhydrAMINE (BENADryl) 25 MG tablet Take by mouth. FLUoxetine (PROzac) 40 MG capsule Take 40 mg by mouth daily. folic acid (Folvite) 1 MG tablet TAKE 1 TABLET BY MOUTH EVERY DAY 90 tablet 1 lisinopril 2.5 MG tablet Take 2.5 mg by mouth daily. metoprolol succinate XL (Toprol-XL) 25 MG 24 hr tablet TAKE 1 TABLET BY MOUTH EVERY DAY 90 tablet 1 Multiple Vitamin (multivitamin) tablet Take 1 tablet by mouth daily. simvastatin (Zocor) 40 MG tablet TAKE 1 TABLET BY MOUTH EVERY DAY NIGHTLY 90 tablet 1 valbenazine tosylate (Ingrezza) 40 MG capsule Take 1 capsule (40 mg) by mouth daily. 30 capsule 3 amantadine (Symmetrel) 100 MG tablet Take 1 tablet (100 mg) by mouth 2 times daily. 60 tablet 2 No current facility-administered medications for this visit. Allergies: Vraylar [cariprazine] Social History: Social History Socioeconomic History Marital status: Spouse name: Not on file Number of children: Not on file Years of education: Not on file Highest education level: Not on file Occupational History Not on file Tobacco Use Smoking status: Never Smokeless tobacco: Never Vaping Use Vaping status: Never Used Substance and Sexual Activity Alcohol use: No Drug use: No Sexual activity: Defer Other Topics Concern Not on file Social History Narrative Not on file Social Drivers of Health Financial Resource Strain: Low Risk (12/30/2023) Overall Financial Resource Strain (CARDIA) Difficulty of Paying Living Expenses: Not hard at all Food Insecurity: No Food Insecurity (12/30/2023) Hunger Vital Sign Worried About Running Out of Food in the Last Year: Never true Ran Out of Food in the Last Year: Never true Transportation Needs: No Transportation Needs (12/30/2023) PRAPARE - Transportation Lack of Transportation (Medical): No Lack of Transportation (Non-Medical): No Physical Activity: Inactive (12/30/2023) Exercise Vital Sign Days of Exercise per Week: 0 days Minutes of Exercise per Session: 0 min Stress: Not on file Social Connections: Not on file Intimate Partner Violence: Not on file Housing Stability: Low Risk (12/30/2023) Housing Stability Vital Sign Unable to Pay for Housing in the Last Year: No Number of Places Lived in the Last Year: 1 Unstable Housing in the Last Year: No Family History: Family History Problem Relation Name Age of Onset Substance Abuse Mother Heart disease Mother Heart disease Father Prostate cancer Father Breast cancer Mother's Sister REVIEW OF SYSTEMS: Review of Systems onstitutional: Positive for activity change. HENT: Positive for rhinorrhea. Eyes: Negative. Respiratory: Negative. Cardiovascular: Negative. Gastrointestinal: Negative. Endocrine: Negative. Genitourinary: Negative. Musculoskeletal: Positive for arthralgias and joint swelling. Skin: Negative. Allergic/Immunologic: Negative. Neurological: Positive for tremors, speech difficulty and weakness. Hematological: Bruises/bleeds easily. Psychiatric/Behavioral: Positive for confusion and decreased concentration. The patient is nervous/anxious. PHYSICAL EXAM: Vitals: BP 120/68 Ht 5' 2 (1.575 m) Wt 182 lb (82.6 kg) BMI 33.29 kg/m Physical Exam Constitutional: Appearance: Normal appearance. HENT: Head: Normocephalic and atraumatic. Nose: Nose normal. Mouth/Throat: Mouth: Mucous membranes are moist. Pharynx: Oropharynx is clear. Eyes: General: Vision grossly intact. Gaze aligned appropriately. Extraocular Movements: Extraocular movements intact. Conjunctiva/sclera: Conjunctivae normal. Pupils: Pupils are equal, round, and reactive to light. Neck: Trachea: Trachea and phonation normal. Cardiovascular: Rate and Rhythm: Normal rate and regular rhythm. Pulses: Normal pulses. Heart sounds: Normal heart sounds. Pulmonary: Effort: Pulmonary effort is normal. Breath sounds: Normal breath sounds. Abdominal: General: Abdomen is flat. Bowel sounds are normal. Palpations: Abdomen is soft. Musculoskeletal: General: Normal range of motion. Cervical back: Normal range of motion and neck supple. Skin: General: Skin is warm and dry. Neurological: General: No focal deficit present. Mental Status: She is alert and oriented to person, place, and time. Mental status is at baseline. Cranial Nerves: Cranial nerves 2-12 are intact. Deep Tendon Reflexes: Reflexes are normal and symmetric. Reflex Scores: Tricep reflexes are 2+ on the right side and 2+ on the left side. Bicep reflexes are 2+ on the right side and 2+ on the left side. Brachioradialis reflexes are 2+ on the right side and 2+ on the left side. Patellar reflexes are 2+ on the right side and 2+ on the left side. Achilles reflexes are 2+ on the right side and 2+ on the left side. Psychiatric: Attention and Perception: Attention normal. Mood and Affect: Mood normal. Speech: Speech normal. Behavior: Behavior normal. Behavior is cooperative. Thought Content: Thought content normal. Cognition and Memory: Cognition normal. Judgment: Judgment normal. Impression: Diagnosis Plan 1. Neuroleptic-induced tardive dyskinesia Plan: 1. We are going to maintain patient on the Ingrezza milligrams p.o. daily. Currently we are going to start patient on Amantidine 100 mg 1 tablet p.o. nightly for a week and then we will increase it up to 100 mg p.o. twice daily. 2. If amantidine, work well maintain patient on amantadine and we will start decreasing Ingrezza. 3 patient will return to the neurology months for further evaluation thank you. Jie Miranda MD documented in this encounter [facility] 12-29-2024 Telephone encounter Note Spoke to patients gabriela Ram, who is listed as a contact we can speak to. Agreeable to further testing. [facility] 12-29-2024 Telephone encounter Note ----- Message from SOO Grant CNP sent at 12/28/2024 5:01 PM EDT ----- Mammogram- asymmetry noted in the left breast, recommend diagnostic mammogram left with left breast ultrasound to further evaluate. [facility] 12-29-2024 Miscellaneous Notes Spoke to patients gabriela Ram, who is listed as a contact we can speak to. Agreeable to further testing. ----- Message from SOO Grant CNP sent at 12/28/2024 5:01 PM EDT ----- Mammogram- asymmetry noted in the left breast, recommend diagnostic mammogram left with left breast ultrasound to further evaluate. documented in this encounter [facility] 12-23-2024 Telephone encounter Note New rx sent [facility] 12-23-2024 Note Addended by: ADRIANE ROGERS on: 12/23/2024 09:42 AM Modules accepted: Orders [facility] 12-23-2024 Note Addended by: ADRIANE ROGERS on: 12/23/2024 09:42 AM Modules accepted: Orders [facility] 12-23-2024 Note Addended by: ADRIANE ROGERS on: 12/23/2024 09:42 AM Modules accepted: Orders [facility] 12-23-2024 Miscellaneous Notes New rx sent Addended by: ADRIANE HUBBARD on: 12/23/2024 09:42 AM Modules accepted: Orders Pharmacy does not stock the 500-5 mg-mcg tablets; they can provide 600-5 mg-mcg. Please advise, can we send new rx? Name of caller: Bonita @ [facility] location Contact phone number: [phone] Relationship to Patient: Pharmacy Provider: Adriane Hubbard Practice: [facility] Chief Complaint/Reason for Call: The following was called in to [facility] for patient 12/22/24: Calcium Carb-Cholecalciferol 500-5 MG-MCG tablet tablet [[id number]] Order Details Dose: 2 tablet Route: Oral Frequency: Daily Dispense Quantity: 60 tablet Refills: 5 Sig: Take 2 tablets by mouth daily. Pharmacy does not stock the 500-5 mg-mcg tablets; they can provide 600-5 mg-mcg. Please advise if okay to change. Best time of day caller can be reached: any Patient advised that office/PCP has 24-48 business hours to return their call: No Notified, Leanna is asking for you to send this to [facility] as a prescription since her insurance should pay for some of it if not all of it. ----- Message from SOO Grant CNP sent at 12/22/2024 7:16 AM EST ----- Dexa Scan shows osteopenia. Recommend calcium 1200 mg/day and vit d 2,000 international units daily, weight bearing exercise. Repeat dexa in 2-3 years documented in this encounter [facility] 12-23-2024 Telephone encounter Note Pharmacy does not stock the 500-5 mg-mcg tablets; they can provide 600-5 mg-mcg. Please advise, can we send new rx? [facility] 12-23-2024 Telephone encounter Note Name of caller: Bonita @ [facility] location Contact phone number: [phone] Relationship to Patient: Pharmacy Provider: Adriane Hubbard Practice: [facility] Chief Complaint/Reason for Call: The following was called in to [facility] for patient 12/22/24: Calcium Carb-Cholecalciferol 500-5 MG-MCG tablet tablet [[id number]] Order Details Dose: 2 tablet Route: Oral Frequency: Daily Dispense Quantity: 60 tablet Refills: 5 Sig: Take 2 tablets by mouth daily. Pharmacy does not stock the 500-5 mg-mcg tablets; they can provide 600-5 mg-mcg. Please advise if okay to change. Best time of day caller can be reached: any Patient advised that office/PCP has 24-48 business hours to return their call: No [facility] 12-22-2024 Telephone encounter Note Maeied, Leanna is asking for you to send this to [facility] as a prescription since her insurance should pay for some of it if not all of it. ----- Message from SOO Grant CNP sent at 12/22/2024 7:16 AM EST ----- Dexa Scan shows osteopenia. Recommend calcium 1200 mg/day and vit d 2,000 international units daily, weight bearing exercise. Repeat dexa in 2-3 years [facility] 12-22-2024 Miscellaneous Notes Sophia, Leanna is asking for you to send this to [facility] as a prescription since her insurance should pay for some of it if not all of it. ----- Message from SOO Grant CNP sent at 12/22/2024 7:16 AM EST ----- Dexa Scan shows osteopenia. Recommend calcium 1200 mg/day and vit d 2,000 international units daily, weight bearing exercise. Repeat dexa in 2-3 years documented in this encounter [facility] 12-10-2024 History of Presen t illness Narrative Images from the original note were not included. [facility] [address] [place] [address] [place] [address] Dept: [phone] Dept 12/10/2024 Chief Complaint Patient presents with New Patient Right elbow injury HISTORY Kamila Joseph is a 69 y.o. right handed female that presents for evaluation and treatment after sustaining an injury to her RIGHT elbow that occurred approximately 5 day(s) ago. Kamila is currently retired. Mechanism of injury - tripped over a wood pile and fell onto right upper extremity. Treatment up to this point has consisted of ED evaluation, sling, right sugar-tong splint, XRays, and pain medicine. Kamila currently rates her pain as moderate, and describes it as aching, worse with attempted use of extremity, and improved with rest and elevation. She denies any numbness or tingling in hands or fingers. She says she has been wearing her sling pretty much all the time since she was seen in the emergency department. She has maintained her splint. Lab Results Component Value Date HGBA1C 5.8 (H) 10/30/2022 Past Surgical History: Procedure Laterality Date COLONOSCOPY 5 years ago COLONOSCOPY W/ BIOPSIES 08/11/2024 Performed by Mason Haynes MD at [facility] COLONOSCOPY W/ BIOPSIES AND POLYPECTOMY N/A 08/11/2024 Performed by Mason Haynes MD at [facility]COPY TONSILLECTOMY (HISTORICAL) WRIST SURGERY Past Medical History: Diagnosis Date Benign paroxysmal positional vertigo due to bilateral vestibular disorder 05/01/2022 Depression Dizziness and giddiness 06/16/2023 GERD (gastroesophageal reflux disease) Greater trochanteric bursitis of right hip 05/01/2022 Heat intolerance Hyperlipidemia Hypertension IBS (irritable bowel syndrome) Inflamed sebaceous cyst 05/23/2021 Insomnia 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 10/10/2023 Sleep apnea Urinary tract infection symptoms 03/23/2024 Family History Problem Relation Name Age of Onset Breast cancer Mother's Sister Substance Abuse Mother Heart disease Father Heart disease Mother Social History Socioeconomic History Marital status: Spouse name: Not on file Number of children: Not on file Years of education: Not on file Highest education level: Not on file Occupational History Not on file Tobacco Use Smoking status: Never Smokeless tobacco: Never Vaping Use Vaping status: Never Used Substance and Sexual Activity Alcohol use: No Drug use: No Sexual activity: Defer Other Topics Concern Not on file Social History Narrative Not on file Social Drivers of Health Financial Resource Strain: Low Risk (12/30/2023) Overall Financial Resource Strain (CARDIA) Difficulty of Paying Living Expenses: Not hard at all Food Insecurity: No Food Insecurity (12/30/2023) Hunger Vital Sign Worried About Running Out of Food in the Last Year: Never true Ran Out of Food in the Last Year: Never true Transportation Needs: No Transportation Needs (12/30/2023) PRAPARE - Transportation Lack of Transportation (Medical): No Lack of Transportation (Non-Medical): No Physical Activity: Inactive (12/30/2023) Exercise Vital Sign Days of Exercise per Week: 0 days Minutes of Exercise per Session: 0 min Stress: Not on file Social Connections: Not on file Intimate Partner Violence: Not on file Housing Stability: Low Risk (12/30/2023) Housing Stability Vital Sign Unable to Pay for Housing in the Last Year: No Number of Places Lived in the Last Year: 1 Unstable Housing in the Last Year: No Allergies Allergen Reactions Vraylar [Cariprazine] Involuntary movement Current Outpatient Medications Medication Sig Dispense Refill Ascorbic Acid (vitamin C) 1000 MG tablet Take 1,000 mg by mouth daily. aspirin 81 MG EC tablet Take 81 mg by mouth daily. busPIRone (Buspar) 15 MG tablet TAKE 1 TABLET BY MOUTH TWICE A DAY 180 tablet 1 clonazePAM (KlonoPIN) 0.5 MG tablet Take 0.5 tablets (0.25 mg) by mouth 2 times daily. 30 tablet 0 diclofenac (Voltaren) 75 MG EC tablet TAKE 1 TABLET BY MOUTH TWICE A DAY DO NOT CRUSH, CHEW OR SPLIT 60 tablet 0 diphenhydrAMINE (BENADryl) 25 MG tablet Take by mouth. FLUoxetine (PROzac) 40 MG capsule Take 40 mg by mouth daily. folic acid (Folvite) 1 MG tablet TAKE 1 TABLET BY MOUTH EVERY DAY 90 tablet 1 HYDROcodone-acetaminophen ([place]) 5-325 MG tablet Take 1 tablet by mouth every 6 hours as needed for severe pain (7-10) for up to 10 days. 20 tablet 0 lisinopril 2.5 MG tablet Take 2.5 mg by mouth daily. metoprolol succinate XL (Toprol-XL) 25 MG 24 hr tablet TAKE 1 TABLET BY MOUTH EVERY DAY 90 tablet 1 Multiple Vitamin (multivitamin) tablet Take 1 tablet by mouth daily. simvastatin (Zocor) 40 MG tablet TAKE 1 TABLET BY MOUTH EVERY DAY NIGHTLY 90 tablet 1 valbenazine tosylate (Ingrezza) 40 MG capsule Take 1 capsule (40 mg) by mouth daily. 30 capsule 3 No current facility-administered medications for this visit. OBJECTIVE Ht 5' 2 (1.575 m) Wt 182 lb (82.6 kg) BMI 33.29 kg/m Ortho Exam Right upper extremity: Skin intact. Moderate swelling and ecchymosis noted about right elbow. Tender to palpation over radial head. No bony blocks to passive right elbow range of motion. Patient able to actively flex elbow to approximately 90 degrees and extend elbow to approximately 20 degrees short of full extension. Pronation and supination intact about the forearm. Cardinal movements of the hand intact. Sensation intact light touch throughout the radial, ulnar, median nerve distributions. Radial pulse palpable and the fingers warm well-perfused. IMAGING Plain films were taken today and reviewed by myself in office. 2V HUMERUS (AP and LAT) show no acute osseous abnormalities, fractures, dislocations about the right humerus. Right comminuted radial head fracture that is depressed approximately 4 mm noted. Radial head fracture in similar alignment to previous x-rays of the right elbow from 12/05/2024 PROCEDURE None ASSESSMENT 1. Closed nondisplaced fracture of head of right radius, initial encounter [facility] Orthopedics Hand/Wrist Upper Extremities - [place] [facility] PLAN I discussed with Kamila the natural history, expected outcome, and risks/benefits of both operative and nonoperative management of her particular fracture relative to her age, activity level, most recent imaging, and physical exam. Kamila had some excellent questions, all of which were answered to her satisfaction. Kamila elected to proceed with conservative treatment to include discontinuation of immobilization. Patient no longer requires splint. Patient may use sling as needed for support but should come out of the sling at least 3-4 times a day to work on right elbow range of motion exercises which were demonstrated to patient in clinic today. She may discontinue use of sling as tolerated. She should however remain nonweightbearing about right upper extremity with no lifting, pushing, or pulling. Okay for range of motion of joints of remaining right upper extremity as tolerated as well. She may use [id number] pain medication as needed. The above diagnosis has been present for less than 1 year I did thoroughly review previous notes from other providers including myself, previous imaging, as well as pertinent testing including X-rays Today's treatment plan includes Observation and Medication Follow-up: Kamila will followup with me in 3 weeks. She knows to call the office with any questions or concerns in the interim. Future Imaging: RIGHT Elbow 3V plus radiocapitellar view Tristin Wilcox MD Orthopedic Hand and Upper Extremity Surgery [facility] Department of Orthopaedics 12/10/2024 at 1:28 PM (Please note that portions of this note may have been completed with a voice recognition program. Efforts were made to edit the dictations but occasionally words are mis-transcribed.) documented in this encounter [facility] 12-08-2024 Evaluation + Plan note Associated Problem(s): Tardive dyskinesia Improving. Continue follow-up with neurology [facility] 12-08-2024 Miscellaneous Notes Associated Problem(s): Tardive dyskinesia Improving. Continue follow-up with neurology Associated Problem(s): Closed fracture of right upper extremity Follow-up with orthopedic as directed Associated Problem(s): Essential hypertension Controlled. Blood pressure 137/81, continue metoprolol 25 mg daily and lisinopril 2.5 mg daily Associated Problem(s): Hyperlipidemia LDL goal <100 Check lipids, continue simvastatin 40 mg daily Associated Problem(s): Cardiomyopathy (HCC) Stable. Is due for echocardiogram. Continue current medications Associated Problem(s): Congestive heart failure (HCC) Stable. Is due for her echocardiogram, continue current medications Associated Problem(s): Parkinson's disease without dyskinesia or fluctuating manifestations (HCC) Stable, managed by neurology, follow-up with neurology Associated Problem(s): Mild dementia without behavioral disturbance, psychotic disturbance, mood disturbance, or anxiety, unspecified dementia type (HCC) Stable. Continue to follow-up with psychiatry and neurology documented in this encounter [facility] 12-08-2024 Evaluation + Plan note Associated Problem(s): Closed fracture of right upper extremity Follow-up with orthopedic as directed [facility] 12-08-2024 Evaluation + Plan note Associated Problem(s): Essential hypertension Controlled. Blood pressure 137/81, continue metoprolol 25 mg daily and lisinopril 2.5 mg daily [facility] 12-08-2024 Evaluation + Plan note Associated Problem(s): Hyperlipidemia LDL goal <100 Check lipids, continue simvastatin 40 mg daily [facility] 12-08-2024 Evaluation + Plan note Associated Problem(s): Cardiomyopathy (HCC) Stable. Is due for echocardiogram. Continue current medications [facility] 12-08-2024 Evaluation + Plan note Associated Problem(s): Congestive heart failure (HCC) Stable. Is due for her echocardiogram, continue current medications [facility] 12-08-2024 Evaluation + Plan note Associated Problem(s): Parkinson's disease without dyskinesia or fluctuating manifestations (HCC) Stable, managed by neurology, follow-up with neurology [facility] 12-08-2024 Evaluation + Plan note Associated Problem(s): Mild dementia without behavioral disturbance, psychotic disturbance, mood disturbance, or anxiety, unspecified dementia type (HCC) Stable. Continue to follow-up with psychiatry and neurology [facility] 12-08-2024 History of Presen t illness Narrative Images from the original note were not included. [facility] - [address] [place] [id number] Dept: [phone] Dept Kamila Joseph 1955 [id number] 12/08/2024 Problem List: Neck pain Cervical spondylosis Cervical radiculopathy (G95.9) Cervical myelopathy (HCC) (M54.2) Neck pain (M47.812) Cervical spondylosis (M54.12) Cervical radiculopathy Chief Complaint Patient presents with Follow-up Back Pain HPI: Kamila is a 69 y.o. female who is here today for evaluation of her lumbar spine. Kamila is referred by her PCP Current symptoms: Pain in neck but feels worse with her sling on Pain is located in the low back that is radiating no. Numbness tingling: no Weakness: no PRASHANT: no known injury Duration of symptoms/DOI: chronic Symptoms are moderately affecting their quality of life. Associated neurologic complaints/Red flags: Gait/balance difficulty: has Use of ambulatory aid?: no device Able to walk a city block: No Bowel/bladder incontinence: has Urinary retention: No Saddle anesthesia: No Fine motor task difficulty/dropping things/handwriting changes: has History of cancer: No Aggravating factors: All activities when it hurts Alleviating Factors: NSAIDS Heating pad Do your symptoms improve with lying on your back or side: Yes Previous Treatment: PT: yes Where: [facility] When: 09/2024 Completed: Yes NSAIDS: Ibuprofen (Advil, Motrin) Injections: No Opioid medications: no Muscle relaxers: no Oral steroids: no Nerve medications (gabapentin/Lyrica): no Pain management: No Chiropractor: No Previous spine surgery: no History of DVT/PE or hypercoagulable state (including history of relative): no Blood thinning medications: ASA Work Status: Retired Is this a work related injury? No Review of Systems Musculoskeletal: Positive for arthralgias, back pain, gait problem and myalgias. Tobacco Use: Low Risk (12/09/2024) Patient History Smoking Tobacco Use: Never Smokeless Tobacco Use: Never Passive Exposure: Not on file Lab Results Component Value Date HGBA1C 5.8 (H) 10/30/2022 Allergies Allergen Reactions Vraylar [Cariprazine] Involuntary movement Current Outpatient Medications Medication Sig Dispense Refill Ascorbic Acid (vitamin C) 1000 MG tablet Take 1,000 mg by mouth daily. aspirin 81 MG EC tablet Take 81 mg by mouth daily. busPIRone (Buspar) 15 MG tablet TAKE 1 TABLET BY MOUTH TWICE A DAY 180 tablet 1 clonazePAM (KlonoPIN) 0.5 MG tablet Take 0.5 tablets (0.25 mg) by mouth 2 times daily. 30 tablet 0 diclofenac (Voltaren) 75 MG EC tablet TAKE 1 TABLET BY MOUTH TWICE A DAY DO NOT CRUSH, CHEW OR SPLIT 60 tablet 0 diphenhydrAMINE (BENADryl) 25 MG tablet Take by mouth. FLUoxetine (PROzac) 40 MG capsule Take 40 mg by mouth daily. folic acid (Folvite) 1 MG tablet TAKE 1 TABLET BY MOUTH EVERY DAY 90 tablet 1 HYDROcodone-acetaminophen ([place]) 5-325 MG tablet Take 1 tablet by mouth every 6 hours as needed for severe pain (7-10) for up to 10 days. 20 tablet 0 lisinopril 2.5 MG tablet Take 2.5 mg by mouth daily. metoprolol succinate XL (Toprol-XL) 25 MG 24 hr tablet TAKE 1 TABLET BY MOUTH EVERY DAY 90 tablet 1 Multiple Vitamin (multivitamin) tablet Take 1 tablet by mouth daily. simvastatin (Zocor) 40 MG tablet TAKE 1 TABLET BY MOUTH EVERY DAY NIGHTLY 90 tablet 1 valbenazine tosylate (Ingrezza) 40 MG capsule Take 1 capsule (40 mg) by mouth daily. 30 capsule 3 No current facility-administered medications for this visit. Past Medical History: Diagnosis Date Benign paroxysmal positional vertigo due to bilateral vestibular disorder 05/01/2022 Depression Dizziness and giddiness 06/16/2023 GERD (gastroesophageal reflux disease) Greater trochanteric bursitis of right hip 05/01/2022 Heat intolerance Hyperlipidemia Hypertension IBS (irritable bowel syndrome) Inflamed sebaceous cyst 05/23/2021 Insomnia 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 10/10/2023 Sleep apnea Urinary tract infection symptoms 03/23/2024 Past Surgical History: Procedure Laterality Date COLONOSCOPY 5 years ago COLONOSCOPY W/ BIOPSIES 08/11/2024 Performed by Mason Haynes MD at [facility] COLONOSCOPY W/ BIOPSIES AND POLYPECTOMY N/A 08/11/2024 Performed by Mason Haynes MD at [facility]COPY TONSILLECTOMY (HISTORICAL) WRIST SURGERY Social History Socioeconomic History Marital status: Spouse name: Not on file Number of children: Not on file Years of education: Not on file Highest education level: Not on file Occupational History Not on file Tobacco Use Smoking status: Never Smokeless tobacco: Never Vaping Use Vaping status: Never Used Substance and Sexual Activity Alcohol use: No Drug use: No Sexual activity: Defer Other Topics Concern Not on file Social History Narrative Not on file Social Drivers of Health Financial Resource Strain: Low Risk (12/30/2023) Overall Financial Resource Strain (CARDIA) Difficulty of Paying Living Expenses: Not hard at all Food Insecurity: No Food Insecurity (12/30/2023) Hunger Vital Sign Worried About Running Out of Food in the Last Year: Never true Ran Out of Food in the Last Year: Never true Transportation Needs: No Transportation Needs (12/30/2023) PRAPARE - Transportation Lack of Transportation (Medical): No Lack of Transportation (Non-Medical): No Physical Activity: Inactive (12/30/2023) Exercise Vital Sign Days of Exercise per Week: 0 days Minutes of Exercise per Session: 0 min Stress: Not on file Social Connections: Not on file Intimate Partner Violence: Not on file Housing Stability: Low Risk (12/30/2023) Housing Stability Vital Sign Unable to Pay for Housing in the Last Year: No Number of Places Lived in the Last Year: 1 Unstable Housing in the Last Year: No Family History Problem Relation Name Age of Onset Breast cancer Mother's Sister Substance Abuse Mother Heart disease Father Heart disease Mother PHYSICAL EXAM Ht 1.575 m (5' 2) Wt 82.6 kg (182 lb) BMI 33.29 kg/m SPINE/EXTREMITY: General: Patient is in no apparent distress. Right arm in a splint today. Cervical Exam: Upper Extremity Motor: Del Bi Tri WE WF Int FF Right 4+ * * * * 4+ 4+ Left 4+ 5 5 5 5 4+ 4+ *Not tested as arm in splint Upper extremity sensation to light touch: C5 C6 C7 C8 T1 Right Intact Intact Intact Intact Intact Left Intact Intact Intact Intact Intact Misc: Sher Spurling Right Positive Negative Left Positive Negative IMAGING The below images were independently reviewed and independently interpreted by myself. My interpretation is located in the assessment section of the note. Cervical MRI: Date of Exam: 11/02/2024 Findings:Findings: The cervical vertebral bodies are in gross anatomic alignment. Mild diffuse marrow edema of the C4 vertebral body is present. The marrow fat is grossly preserved. Mild irregularity of the superior C6 and C7 vertebral body endplates is noted, presumably degenerative. There is no focal marrow replacing lesion. The disc spaces are grossly maintained. Probable mild disc space loss at C6/C7 with osteophytes. The cervical cord is grossly of normal caliber without signal abnormality. There is no cerebellar tonsillar ectopia. The paraspinal musculature is grossly unremarkable. Mild inflammatory changes of the inferior right mastoid air cells. Central canal narrowing detailed below is secondary posterior disc bulging and disc osteophyte complexes, unless otherwise specified. Foraminal narrowing is secondary to disc osteophyte complex, uncovertebral hypertrophy or degenerative facets, unless otherwise specified. At the C2/C3 level, the central canal and foramina are patent. At the C3/C4 level, the central canal and foramina are patent. At the C4/C5 level, minimal posterior disc bulging with tiny osteophytes present. There is minimal narrowing of the central canal. Moderate bilateral foraminal narrowing. At the C5/C6 level, minimal posterior disc bulging present. Moderate to severe left and no significant right-sided foraminal narrowing noted. At the C6/C7 level, minimal posterior disc bulging present with minimal anterior listhesis. The central canal is patent. Mild bilateral foraminal narrowing noted. At the C7/T1 level, the central canal and foramina are patent. IMPRESSION: Impression: Nonspecific mild diffuse marrow edema of the C4 vertebral body, etiology uncertain. The T1 signal does not meet criteria for marrow replacement. Consider six month follow-up MRI or comparison with any remote MRI examinations. Degenerative endplate changes of C6 and C7. Grossly patent central canal. Inflammatory changes of the right mastoid air cells. Cervical Spine: Date of Exam: 10/30/2024 Views: Lumbar 4V xrays (AP/LAT/FLEX/EXT) Findings: There is no carotid artery calcifications noted. No abnormal pre-vertebral swelling. No obvious fracture or instability. No congenital stenosis. Maintenance of normal cervical lordosis noted. Mild multi-level degenerative disc disease noted with moderate degenerative changes at C6-C7. There are moderate spondylitic changes and facet arthropathy noted. Lumbar Spine: Date of Exam: 10/16/2024 Views: Lumbar 4V xrays (AP/LAT/FLEX/EXT) Findings: CLINICAL INFORMATION: Low back pain Frontal, lateral, bilateral oblique views of the lumbar spine were obtained with lateral L5-S1 spot view. There are 5 lumbar type vertebrae. Bone density appears normal. The vertebral body heights are within normal limits. The disc spaces show significant findings at L2-L3 with disc space narrowing and marginal osteophytes and at L5-S1 with disc space narrowing. No spondylolisthesis or spondylolysis is noted. The facet joints show hypertrophic degenerative changes lower lumbar spine. No fracture is noted. 1. Examination of the lumbar spine shows degenerative changes as discussed above. 2. Marked aortoiliac calcific atherosclerosis, probable tubal ligation clips in pelvis, question of possible punctate right renal calculus. Cervical Spine: Date of Exam: 10/30/2024 Views: 4 view Findings: There is no carotid artery calcifications noted. No abnormal pre-vertebral swelling. No obvious fracture or instability. No congenital stenosis. Maintenance of normal cervical lordosis noted. Mild multi-level degenerative disc disease noted with moderate degenerative changes at C6-C7. There are modeate spondylitic changes and facet arthropathy noted. ASSESSMENT See problem list above. Kamila is a 69 y.o. female presenting today for follow-up. She continues to have gait instability and actually had a recent fall where she sustained a radial head fracture. Since her last visit, she had a cervical MRI performed. We independently reviewed this today. Per my independent interpretation, she does have some foraminal stenosis but no high-grade central stenosis or spinal cord compression. We discussed treatment options moving forward. I discussed given the lack of high-grade spinal cord compression her balance difficulties are likely not coming from her cervical spine. She sees neurology and I recommended that she continue to follow-up with them to work on etiologies for her instability. I did discuss that if her radicular symptoms worsen over time potentially injections or surgery to address her foraminal stenosis could be considered. At this point, she wants to work with her neurologist and have her radial head fracture addressed before considering any further treatment for her cervical spine. Of note, her MRI report did mention nonspecific marrow edema of the C4 vertebral body. The radiologist recommended a follow-up MRI in about 6 months. Will plan to order this for further recommendations and see her back to review and document stability. PLAN: Follow up in 6 months for cervical MRI review Electronically signed by Peng Mann MD 12/09/2024 at 10:57 PM Dictated using Dragon Naturally Speaking Medical Version 2.4 Proof read however unrecognized voice recognition errors may have occurred documented in this encounter [facility] 12-08-2024 Instructions Deborah Valenzuela MA - 12/08/2024 3:15 PM EST If your insurance does not change you may Schedule MRI for around 06/07/2025. Once you have this scheduled you can schedule a follow-up with Dr. Mann to review MRI documented in this encounter [facility] 12-08-2024 History of Presen t illness Narrative Patient was identified by name and Date of . -CLOCK -WORDS -AWV Questions Health Maintenance Due Topic Bone Density Scan-NEEDS TO SCHEDULE Derm Melanoma Skin Check-needs completed Hepatitis C Screening-declined Pneumococcal Vaccine-declined Hepatitis B Vaccines-declined RSV Immunization-declined Mammogram-nata'd December 282024 Diabetes Screening-Today Echocardiogram-DISCUSS WITH PROVIDER LAST COMPLETED Influenza Vaccine-declined COVID-19 Vaccine-declined Images from the original note were not included. [address] [address] Dept: [phone] Dept Chief Complaint: Kamila Joseph is an 69 y.o. female here for an annual wellness visit. Assessment/Plan : Problem List Items Addressed This Visit Tardive dyskinesia Improving. Continue follow-up with neurology Closed fracture of right upper extremity Follow-up with orthopedic as directed Parkinson's disease without dyskinesia or fluctuating manifestations (HCC) Stable, managed by neurology, follow-up with neurology Mild dementia without behavioral disturbance, psychotic disturbance, mood disturbance, or anxiety, unspecified dementia type (HCC) Stable. Continue to follow-up with psychiatry and neurology Essential hypertension Controlled. Blood pressure 137/81, continue metoprolol 25 mg daily and lisinopril 2.5 mg daily Relevant Orders Comprehensive metabolic panel Hyperlipidemia LDL goal <100 Check lipids, continue simvastatin 40 mg daily Relevant Orders Lipid panel Cardiomyopathy (HCC) Stable. Is due for echocardiogram. Continue current medications Relevant Orders Transthoracic echocardiogram (TTE) complete with contrast, bubble, strain, and 3D PRN Congestive heart failure (HCC) Stable. Is due for her echocardiogram, continue current medications Other Visit Diagnoses Routine general medical examination at health care facility - Primary Screening for deficiency anemia Relevant Orders CBC Abnormal electrocardiogram (ECG) (EKG) Relevant Orders Transthoracic echocardiogram (TTE) complete with contrast, bubble, strain, and 3D PRN I have reviewed and reconciled the medication list with the patient today. Current Outpatient Medications Medication Sig Dispense Refill Ascorbic Acid (vitamin C) 1000 MG tablet Take 1,000 mg by mouth daily. aspirin 81 MG EC tablet Take 81 mg by mouth daily. busPIRone (Buspar) 15 MG tablet TAKE 1 TABLET BY MOUTH TWICE A DAY 180 tablet 1 clonazePAM (KlonoPIN) 0.5 MG tablet Take 0.5 tablets (0.25 mg) by mouth 2 times daily. 30 tablet 0 diclofenac (Voltaren) 75 MG EC tablet TAKE 1 TABLET BY MOUTH TWICE A DAY DO NOT CRUSH, CHEW OR SPLIT 60 tablet 0 diphenhydrAMINE (BENADryl) 25 MG tablet Take by mouth. FLUoxetine (PROzac) 40 MG capsule Take 40 mg by mouth daily. folic acid (Folvite) 1 MG tablet TAKE 1 TABLET BY MOUTH EVERY DAY 90 tablet 1 HYDROcodone-acetaminophen ([place]) 5-325 MG tablet Take 1 tablet by mouth every 6 hours as needed for severe pain (7-10) for up to 10 days. 20 tablet 0 lisinopril 2.5 MG tablet Take 2.5 mg by mouth daily. metoprolol succinate XL (Toprol-XL) 25 MG 24 hr tablet TAKE 1 TABLET BY MOUTH EVERY DAY 90 tablet 1 Multiple Vitamin (multivitamin) tablet Take 1 tablet by mouth daily. simvastatin (Zocor) 40 MG tablet TAKE 1 TABLET BY MOUTH EVERY DAY NIGHTLY 90 tablet 1 valbenazine tosylate (Ingrezza) 40 MG capsule Take 1 capsule (40 mg) by mouth daily. 30 capsule 3 No current facility-administered medications for this visit. Also reviewed during this visit: Presents with her daughter and her . Patient had recent fall about a week ago and broke her right elbow. Is currently on a soft wrap and she sees orthopedics on . Reports the pain is now tolerable. Denies any new numbness or tingling in the hand and is able to move the fingers without difficulty. Is currently in a sling. Tardive dyskinesia/Parkinson's-sees neurology regularly and her Ingrezza dosing is being decreased to 40 mg every other day and they are trying to wean her off of that and then potentially will be starting Sinemet for her Parkinson's. Depression anxiety-is established with psychiatry and reports that her mood is pretty good-she sees [facility] in [place] Hypertension-blood pressure has been good is currently taking lisinopril and metoprolol and denies any adverse effects of the medication Heart failure/cardiomyopathy-is due for her echocardiogram this year. Denies any chest pain or shortness of breath and has been stable on her current medications. She was seeing cardiology but is wondering if we can follow her now as she has been stable. Dementia-denies any significant change in mentation does have some forgetfulness. Follows with both psychiatry and neurology. The following health maintenance schedule was reviewed with the patient and provided in printed form in the after visit summary: Health Maintenance Topic Date Due Bone Density Scan Never done Derm Melanoma Skin Check Never done Mammogram 01/25/2023 Echocardiogram 01/19/2024 Influenza Vaccine (1) 06/21/2024 Depression Monitoring 01/05/2025 RSV Immunization for Adults (1 - Risk 60-74 years 1-dose series) 12/08/2025 (Originally 2017) Creatinine Level 12/29/2024 Potassium Level 12/29/2024 Medicare Annual Wellness (AWV) 01/28/2025 Diabetes Screening 12/08/2025 DTaP/Tdap/Td Vaccines (2 - Td or Tdap) 02/15/2027 Lipid Panel 12/29/2028 Colorectal Cancer Screening 08/11/2029 Zoster Vaccines Completed RSV Immunization under 20 Months Aged Out HIB Vaccines Aged Out IPV Vaccines Aged Out Hepatitis A Vaccines Aged Out Meningococcal Vaccine Aged Out Rotavirus Vaccines Aged Out HPV Vaccines Aged Out Hepatitis B Vaccines Discontinued Pneumococcal Vaccine: 50+ Years Discontinued Hepatitis C Screening Discontinued COVID-19 Vaccine Discontinued List of current healthcare providers: Patient Care Team: Juvencio Davila MD as PCP - General Orders Placed This Encounter Procedures Comprehensive metabolic panel Standing Status: Future Number of Occurrences: 1 Standing Expiration Date: 12/08/2025 CBC Standing Status: Future Number of Occurrences: 1 Standing Expiration Date: 12/08/2025 Lipid panel Standing Status: Future Number of Occurrences: 1 Standing Expiration Date: 12/08/2025 Transthoracic echocardiogram (TTE) complete with contrast, bubble, strain, and 3D PRN Standing Status: Future Standing Expiration Date: 12/08/2026 Order Specific Question: Contrast Enhancement (Bubble Study, Definity, Optison) may be used if criteria listed in established evidence-based protocol has been identified. Answer: No contrast Review of Systems Constitutional: Negative for activity change, appetite change, diaphoresis, fatigue and fever. HENT: Negative. Respiratory: Negative. Cardiovascular: Negative. Gastrointestinal: Negative. Genitourinary: Negative for difficulty urinating. Musculoskeletal: Positive for arthralgias (right arm pain- recent fracture). Neurological: Negative for dizziness, light-headedness and headaches. Physical Exam Constitutional: General: She is not in acute distress. Appearance: Normal appearance. She is normal weight. She is not ill-appearing. HENT: Head: Normocephalic and atraumatic. Right Ear: Tympanic membrane normal. Left Ear: Tympanic membrane normal. Nose: Nose normal. Mouth/Throat: Mouth: Mucous membranes are moist. Pharynx: Oropharynx is clear. No posterior oropharyngeal erythema. Eyes: Conjunctiva/sclera: Conjunctivae normal. Neck: Vascular: No carotid bruit. Cardiovascular: Rate and Rhythm: Normal rate and regular rhythm. Pulses: Normal pulses. Heart sounds: Normal heart sounds. Abdominal: General: Bowel sounds are normal. Tenderness: There is no abdominal tenderness. Musculoskeletal: Cervical back: Normal range of motion and neck supple. Right lower leg: No edema. Left lower leg: No edema. Comments: Gait slightly unsteady. Most notably when patient is turning her balance seems to be a little bit off. She is able to get on and off the exam table and up and down from the chair without difficulty Lymphadenopathy: Cervical: No cervical adenopathy. Skin: General: Skin is warm and dry. Neurological: Mental Status: She is alert and oriented to person, place, and time. Psychiatric: Mood and Affect: Mood normal. Behavior: Behavior normal. Thought Content: Thought content normal. Judgment: Judgment normal. Objective : BP 137/81 Pulse 58 Temp 36.8 C (98.3 F) (Infrared) Resp 16 Ht 5' 2 (1.575 m) Wt 182 lb 3.2 oz (82.6 kg) SpO2 94% BMI 33.32 kg/m No results found. Subjective : Health Risk Assessment: General: General In general, how would you say your health is?: Good In the past 7 days, have you experienced any of the following: New or Increased Pain, New or Increased Fatigue, Loneliness, Social Isolation, Stress or Anger?: (!) Yes Select all that apply: (!) New or Increased Pain Do you get the social and emotional suppport you need?: Yes Interventions: Recent fracture and is following up with orthopedics for a right elbow fracture Health Habits/Nutrition: Health Habits / Nutrition On average, how many days per week do you engage in moderate to strenous exercise (like a brisk walk)?: (!) 0 days On average, how man minutes do you engage in exercise at this level?: (!) 0 min Have you lost any weight without trying in the past 3 months? : No Have you seen the dentist within the past year?: (!) No Interventions: Inadequate physical activity: Patient is not ready to increase his / her physical activity level at this time Will be starting back with physical therapy after her arm fracture is healed Hearing/ Vision: Hearing / Vision Do you or your family notice any trouble with your hearing that hasn't been managed with hearing aids?: No Do you have difficulty driving, watching TV, or doing any of your daily activities because of your eyesight?: (!) Yes Have you had an eye exam within the past year?: (!) No No results found. 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 : Yes Do all your stairways have a railing or banister? : Yes Do you fasten your seatbelt when you are in a car?: Yes ADL: ADL In the past 7 days, did you need help from others to perform any of the following everyday activities: Eating, dressing, grooming,bathing, toileting, or walking / balance? : (!) Yes Select all that apply: Eating, Dressing, Grroming, Bathing, Toileting, Walking / Balance In the past 7 days, did you need help from others to take care of any of the following: laundry, housekeeping, banking / finances,shopping, telephone use, food preparation, transportation, or taking medications? : Yes Select all that apply: Laundry, Housekeeping, Banking / Finances, Shopping, Food Preparation, Transportation, Taking Medications, Telephone Use Interventions: Will be starting back on physical therapy once her arm heals Living Will: Living Will Do you have a living will?: Yes Cognitive: Cognitive Screening: Mini-Cog Clock Drawing Test (CDT): 2 Words Recalled: 3 Total Score: 5 Total Score Interpretation: Normal Mini-Cog Hypertension: No Fall Risk: Fall Risk One or more falls in the last year:: Yes Advised to use a cane or walker to get around safely:: Yes Feels unsteady when walking:: Yes Steadies self on furniture while walking at home:: Yes Worried about falling:: Yes Interventions: Home safety tips provided Depression Screening: Interventions: Tobacco Use: Social History Tobacco Use Smoking Status Never Smokeless Tobacco Never Alcohol Use: none Social Drivers of Health: SDOH risk assessment performed and documented today by members of the health care team. A total time of 15+ minutes was spent obtaining information from the patient and discussing options to address the patient's social risk factors and unmet needs. Social Drivers of Health with Concerns Concerns Present Physical Activity: Inactive (12/30/2023) Depression: Moderately severe depression (07/08/2024) documented in this encounter [facility] 12-08-2024 Instructions SOO Grant CNP - 12/08/2024 8:40 AM EST Personalized Preventative Plan for Kamila Joseph - 12/08/2024 Medicare offers a range of preventative health benefits. Some of the tests and screenings are paid in full while others may be subject to a deductible, co-insurance, and / or copay. Some of these benefits include a comprehensive review of your medical history including lifestyle, illnesses that may run in your family, and various assessments and screenings as appropriate. After reviewing your medical record and screening and assessments performed today, your provider may have ordered immunizations, labs, imaging, and / or referrals for you. A list of these orders (if applicable) as well as your Preventative Care list are included within your After Visit Summary for your review. Other Preventative Recommendations: A preventive eye exam by an photo print specialist is recommended every 1-2 years to screen for glaucoma, cataracts, macular degeneration, and other eye disorders. A preventive dental visit is recommended every 6 months. Try to get at least 150 minutes of exercise per week or 10,000 steps per day on a pedometer. You need 1200-1500mg of calcium and [id number] international units of vitamin D per day. It is possible to meet your calcium requirement with diet alone, but a vitamin D supplement is usually necessary to meet this goal. When exposed to the sun, use a sunscreen that protects against both UVA and UVB radiation with an SPF of 30 or greater. Reapply every 2-3 hours or after sweating, drying off with a towel, or swimming. Always wear a seat belt when traveling in a car. Always wear a helmet when riding a bicycle or a motorcycle documented in this encounter [facility] 12-07-2024 History of Presen t illness Narrative Department of Neurological Sciences Visit Note CHIEF COMPLAINT: Chief Complaint Patient presents with Follow-up Dyskinesia Main diagnoses: Tardative dyskinesia HISTORY OF PRESENT ILLNESS: The patient is a 69 y.o. female today presents to the Neurology clinic with history of Tardative dyskinesia consistent rigidity, oral dyskinesia with tongue rolling and difficulty with gait. Today patient presented to the neurology clinic accompanied by her daughter. Apparently patient fall last weekend and fracture of her right elbow. Patient was evaluated approximately 3 months ago. At that time her Ingrezza was decreased from 80 mg p.o. daily to 40 mg p.o. daily. Her gait has improved next and she denied any significant dyskinesias. She is still have rigidity in both upper extremities. Patient was taking clonazepam from psychiatry at they are trying to taper off the bed this medication. We are also trying to decrease patient Ingrezza. Patient denied any side effect from medication. Patient no longer has shuffling gait but when she turned around she needs at least for the steps. Patient denied any other neurological deficits. Secundary diagnoses: Parkinsonism, depression 1. Medications: Current Outpatient Medications Medication Sig Dispense Refill Ascorbic Acid (vitamin C) 1000 MG tablet Take 1,000 mg by mouth daily. aspirin 81 MG EC tablet Take 81 mg by mouth daily. busPIRone (Buspar) 15 MG tablet TAKE 1 TABLET BY MOUTH TWICE A DAY 180 tablet 1 clonazePAM (KlonoPIN) 0.5 MG tablet Take 0.5 tablets (0.25 mg) by mouth 2 times daily. 30 tablet 0 diclofenac (Voltaren) 75 MG EC tablet TAKE 1 TABLET BY MOUTH TWICE A DAY DO NOT CRUSH, CHEW OR SPLIT 60 tablet 0 diphenhydrAMINE (BENADryl) 25 MG tablet Take by mouth. FLUoxetine (PROzac) 40 MG capsule Take 40 mg by mouth daily. folic acid (Folvite) 1 MG tablet TAKE 1 TABLET BY MOUTH EVERY DAY 90 tablet 1 lisinopril 2.5 MG tablet Take 2.5 mg by mouth daily. metoprolol succinate XL (Toprol-XL) 25 MG 24 hr tablet TAKE 1 TABLET BY MOUTH EVERY DAY 90 tablet 1 Multiple Vitamin (multivitamin) tablet Take 1 tablet by mouth daily. simvastatin (Zocor) 40 MG tablet TAKE 1 TABLET BY MOUTH EVERY DAY NIGHTLY 90 tablet 1 valbenazine tosylate (Ingrezza) 40 MG capsule Take 1 capsule (40 mg) by mouth daily. 30 capsule 3 HYDROcodone-acetaminophen ([place]) 5-325 MG tablet Take 1 tablet by mouth every 6 hours as needed for severe pain (7-10) for up to 10 days. 20 tablet 0 No current facility-administered medications for this visit. Allergies: Vraylar [cariprazine] Social History: Social History Socioeconomic History Marital status: Spouse name: Not on file Number of children: Not on file Years of education: Not on file Highest education level: Not on file Occupational History Not on file Tobacco Use Smoking status: Never Smokeless tobacco: Never Vaping Use Vaping status: Never Used Substance and Sexual Activity Alcohol use: No Drug use: No Sexual activity: Defer Other Topics Concern Not on file Social History Narrative Not on file Social Drivers of Health Financial Resource Strain: Low Risk (12/30/2023) Overall Financial Resource Strain (CARDIA) Difficulty of Paying Living Expenses: Not hard at all Food Insecurity: No Food Insecurity (12/30/2023) Hunger Vital Sign Worried About Running Out of Food in the Last Year: Never true Ran Out of Food in the Last Year: Never true Transportation Needs: No Transportation Needs (12/30/2023) PRAPARE - Transportation Lack of Transportation (Medical): No Lack of Transportation (Non-Medical): No Physical Activity: Inactive (12/30/2023) Exercise Vital Sign Days of Exercise per Week: 0 days Minutes of Exercise per Session: 0 min Stress: Not on file Social Connections: Not on file Intimate Partner Violence: Not on file Housing Stability: Low Risk (12/30/2023) Housing Stability Vital Sign Unable to Pay for Housing in the Last Year: No Number of Places Lived in the Last Year: 1 Unstable Housing in the Last Year: No Family History: Family History Problem Relation Name Age of Onset Breast cancer Mother's Sister Substance Abuse Mother Heart disease Father Heart disease Mother REVIEW OF SYSTEMS: Review of Systems onstitutional: Positive for activity change. HENT: Positive for rhinorrhea. Eyes: Negative. Respiratory: Negative. Cardiovascular: Negative. Gastrointestinal: Negative. Endocrine: Negative. Genitourinary: Negative. Musculoskeletal: Positive for arthralgias and joint swelling. Skin: Negative. Allergic/Immunologic: Negative. Neurological: Positive for tremors, speech difficulty and weakness. Hematological: Bruises/bleeds easily. Psychiatric/Behavioral: Positive for confusion and decreased concentration. The patient is nervous/anxious. PHYSICAL EXAM: Vitals: BP 116/70 Ht 5' 2 (1.575 m) Wt 179 lb (81.2 kg) BMI 32.74 kg/m Physical Exam Constitutional: Appearance: Normal appearance. HENT: Head: Normocephalic and atraumatic. Nose: Nose normal. Mouth/Throat: Mouth: Mucous membranes are moist. Pharynx: Oropharynx is clear. Eyes: General: Vision grossly intact. Gaze aligned appropriately. Extraocular Movements: Extraocular movements intact. Conjunctiva/sclera: Conjunctivae normal. Pupils: Pupils are equal, round, and reactive to light. Neck: Trachea: Trachea and phonation normal. Cardiovascular: Rate and Rhythm: Normal rate and regular rhythm. Pulses: Normal pulses. Heart sounds: Normal heart sounds. Pulmonary: Effort: Pulmonary effort is normal. Breath sounds: Normal breath sounds. Abdominal: General: Abdomen is flat. Bowel sounds are normal. Palpations: Abdomen is soft. Musculoskeletal: General: Normal range of motion. Cervical back: Normal range of motion and neck supple. Skin: General: Skin is warm and dry. Neurological: General: No focal deficit present. Mental Status: She is alert and oriented to person, place, and time. Mental status is at baseline. Cranial Nerves: Cranial nerves 2-12 are intact. Deep Tendon Reflexes: Reflexes are normal and symmetric. Reflex Scores: Tricep reflexes are 2+ on the right side and 2+ on the left side. Bicep reflexes are 2+ on the right side and 2+ on the left side. Brachioradialis reflexes are 2+ on the right side and 2+ on the left side. Patellar reflexes are 2+ on the right side and 2+ on the left side. Achilles reflexes are 2+ on the right side and 2+ on the left side. Psychiatric: Attention and Perception: Attention normal. Mood and Affect: Mood normal. Speech: Speech normal. Behavior: Behavior normal. Behavior is cooperative. Thought Content: Thought content normal. Cognition and Memory: Cognition normal. Judgment: Judgment normal. Impression: Diagnosis Plan 1. Closed fracture of right upper extremity, initial encounter HYDROcodone-acetaminophen ([place]) 5-325 MG tablet 2. Tardive dyskinesia Plan: 1. We are going to decrease patient Ingrezza from 40 mg p.o. daily to 40 mg p.o. q. other day. After patient have surgery her right arm going to recommend patient to start physical therapy for ambulation and balance. If patient rigidity and balance do not improve we may try to continue patient on a trial of Sinemet. 2. Patient complaining of severe pain in the right elbow. She is unable to sleep at night. Going to prescribe patient 30 tablets of present 5/325 1/2 to 1 tablet p.o. nightly. 3. Return to the neurology clinic in 1 month for further evaluation thank you. Jie Miranda MD . documented in this encounter [facility] 12-05-2024 Emergency department Note Discharge teaching completed. Pt verbalizes understanding of medications, times to return to the ED, and follow up care discussed. Pt is stable and ambulatory upon discharge. Pt is a/o x 4; breathing is even and unlabored on room air. No distress noted. Pt leaves ED with all belongings. [facility] 12-05-2024 Note Discharge teaching c ompleted. Pt verbalizes understanding of medications, times to return to the ED, and follow up care discussed. Pt is stable and ambulatory upon discharge. Pt is a/o x 4; breathing is even and unlabored on room air. No distress noted. Pt leaves ED with all belongings. [facility] 12-05-2024 Emergency department Note Discharge teaching completed. Pt verbalizes understanding of medications, times to return to the ED, and follow up care discussed. Pt is stable and ambulatory upon discharge. Pt is a/o x 4; breathing is even and unlabored on room air. No distress noted. Pt leaves ED with all belongings. Associated Order(s): Splint Application EMERGENCY DEPARTMENT ENCOUNTER Pt Name: Kamila Joseph Birthdate 1955 Date of evaluation: 12/05/2024 ED Provider: Bud Malik DO CHIEF COMPLAINT Chief Complaint Patient presents with Fall Pt fell today while trying to step over a pile of wood in the garage, pt caught foot and landed on hands, did not hit head Elbow Pain Right elbow pain s/p fall Wrist Pain Right wrist pain s/p fall HISTORY OF PRESENT ILLNESS (Location/Symptom, Timing/Onset, Context/Setting, Quality, Duration, Modifying Factors, Severity) Note limiting factors. I wore appropriate PPE for the entirety of this encounter. HPI Hermelindoa S Joseph is a 69 y.o. female who presents to the emergency department with right elbow and wrist pain after mechanical fall. States she was stepping over a wood pile when she tripped and fell. Has mild amount of pain particularly with movement. No significant discomfort at rest. No other pain throughout the upper arm and neck or back. Also hit her left knee but has been ambulating normally since the injury and no pain. No hip pain chest pain shortness of breath abdominal pain. No syncopal nature to the fall. Patient is not anticoagulated. Nursing Notes were reviewed. REVIEW OF SYSTEMS 14 systems reviewed and otherwise acutely negative except as in the [facility]. PAST MEDICAL HISTORY Past Medical History: Diagnosis Date Benign paroxysmal positional vertigo due to bilateral vestibular disorder 05/01/2022 Depression GERD (gastroesophageal reflux disease) Greater trochanteric bursitis of right hip 05/01/2022 Heat intolerance Hyperlipidemia Hypertension IBS (irritable bowel syndrome) Inflamed sebaceous cyst 05/23/2021 Insomnia Sleep apnea SURGICAL HISTORY Past Surgical History: Procedure Laterality Date COLONOSCOPY 5 years ago COLONOSCOPY W/ BIOPSIES 08/11/2024 Performed by Mason Haynes MD at [facility] END[facility]COPY COLONOSCOPY W/ BIOPSIES AND POLYPECTOMY N/A 08/11/2024 Performed by Mason Haynes MD at [facility] ENDOSCOPY TONSILLECTOMY (HISTORICAL) WRIST SURGERY CURRENT MEDICATIONS Discharge Medication List as of 12/05/2024 9:30 PM CONTINUE these medications which have NOT CHANGED Details Ascorbic Acid (vitamin C) 1000 MG tablet Take 1,000 mg by mouth daily., Starting Sat08/06/2023, Historical Med aspirin 81 MG EC tablet Take 81 mg by mouth daily., Historical Med busPIRone (Buspar) 15 MG tablet TAKE 1 TABLET BY MOUTH TWICE A DAY, Starting Maura 03/05/2024, Normal clonazePAM (KlonoPIN) 0.5 MG tablet Take 0.5 tablets (0.25 mg) by mouth 2 times daily., Starting Sat10/16/2023, Until Sat09/08/2025, Normal diclofenac (Voltaren) 75 MG EC tablet TAKE 1 TABLET BY MOUTH TWICE A DAY DO NOT CRUSH, CHEW OR SPLIT, Normal diphenhydrAMINE (BENADryl) 25 MG tablet Take by mouth., Historical Med FLUoxetine (PROzac) 40 MG capsule Take 40 mg by mouth daily., Historical Med folic acid (Folvite) 1 MG tablet TAKE 1 TABLET BY MOUTH EVERY DAY, Normal lisinopril 2.5 MG tablet Take 2.5 mg by mouth daily., Starting Sat08/13/2022, Historical Med metoprolol succinate XL (Toprol-XL) 25 MG 24 hr tablet TAKE 1 TABLET BY MOUTH EVERY DAY, Starting Sat09/07/2024, Normal Multiple Vitamin (multivitamin) tablet Take 1 tablet by mouth daily., Historical Med simvastatin (Zocor) 40 MG tablet TAKE 1 TABLET BY MOUTH EVERY DAY NIGHTLY, Starting Sat07/06/2024, Normal valbenazine tosylate (Ingrezza) 40 MG capsule Take 1 capsule (40 mg) by mouth daily., Starting Sat09/14/2024, Until Sat09/14/2025, Normal ALLERGIES Vraylar [cariprazine] FAMILY HISTORY Family History Problem Relation Name Age of Onset Breast cancer Mother's Sister Substance Abuse Mother Heart disease Father Heart disease Mother SOCIAL HISTORY Social History Socioeconomic History Marital status: Tobacco Use Smoking status: Never Smokeless tobacco: Never Vaping Use Vaping status: Never Used Substance and Sexual Activity Alcohol use: No Drug use: No Sexual activity: Defer Social Drivers of Health Financial Resource Strain: Low Risk (12/30/2023) Overall Financial Resource Strain (CARDIA) Difficulty of Paying Living Expenses: Not hard at all Food Insecurity: No Food Insecurity (12/30/2023) Hunger Vital Sign Worried About Running Out of Food in the Last Year: Never true Ran Out of Food in the Last Year: Never true Transportation Needs: No Transportation Needs (12/30/2023) PRAPARE - Transportation Lack of Transportation (Medical): No Lack of Transportation (Non-Medical): No Physical Activity: Inactive (12/30/2023) Exercise Vital Sign Days of Exercise per Week: 0 days Minutes of Exercise per Session: 0 min Housing Stability: Low Risk (12/30/2023) Housing Stability Vital Sign Unable to Pay for Housing in the Last Year: No Number of Places Lived in the Last Year: 1 Unstable Housing in the Last Year: No SCREENINGS PHYSICAL EXAM ED Triage Vitals [12/05/242030] Temp Heart Rate Resp BP 36.9 C (98.5 F) 71 18 139/69 SpO2 Temp Source Heart Rate Source Patient Position 93 % Oral -- Lying BP Location FiO2 (%) Left arm -- CONSTITUTIONAL: AOx4, no apparent distress, appears stated age HEAD: normocephalic, atraumatic EYES: PERRL, EOMI ENT: moist mucous membranes, uvula midline NECK: supple, symmetric BACK: symmetric LUNGS: clear to auscultation bilaterally CARDIOVASCULAR: regular rate and rhythm ABDOMEN: soft, non-tender, non-distended with normal active bowel sounds : deferred NEUROLOGIC: MAEx4, no focal sensory or motor deficits MUSCULOSKELETAL: no clubbing, cyanosis or edema, mild tenderness palpation of the right lateral elbow joint line with full range of motion of the elbow and wrist SKIN: no exposed rash DIAGNOSTIC RESULTS Procedures/EKG: EKG was reviewed by myself. Physician EKG interpretation can be found in [facility] RADIOLOGY (Per Emergency Physician): Interpretation per the Radiologist below, if available at the time of this note: XR elbow 3+ views right Final Result Comminuted and impacted radial head fracture. No additional fracture or evidence of dislocation within the right elbow and right wrist. Report Dictated on Electronically Signed By: Rajni Robles DO Electronically Signed Date/Time: 12/05/2024 9:12 PM EST XR wrist 3+ views right Final Result Comminuted and impacted radial head fracture. No additional fracture or evidence of dislocation within the right elbow and right wrist. Report Dictated on Electronically Signed By: Rajni Robles DO Electronically Signed Date/Time: 12/05/2024 9:12 PM EST ED BEDSIDE ULTRASOUND: Performed by ED Physician - none LABS: Labs Reviewed - No data to display All other labs were within normal range or not returned as of this dictation. EMERGENCY DEPARTMENT COURSE and DIFFERENTIAL DIAGNOSIS/MDM: Vitals: Vitals: 12/05/24203012/05/24 2134 BP: 139/69 118/59 BP Location: Left arm Left arm Patient Position: Lying Lying Pulse: 71 70 Resp: 18 18 Temp: 36.9 C (98.5 F) TempSrc: Oral SpO2: 93% (!) 92% Weight: 81.2 kg (179 lb) Height: 1.575 m (5' 2) EMERGENCY DEPARTMENT COURSE and DIFFERENTIAL DIAGNOSIS/MDM: Vitals: Vitals: 12/05/24 2031 12/05/24 2134 BP: 139/69 118/59 BP Location: Left arm Left arm Patient Position: Lying Lying Pulse: 71 70 Resp: 18 18 Temp: 36.9 C (98.5 F) TempSrc: Oral SpO2: 93% (!) 92% Weight: 81.2 kg (179 lb) Height: 1.575 m (5' 2) The patient presented with a chief complaint of right elbow and wrist pain. No bony tenderness throughout the wrist. Full range of motion of the wrist. Has full range of motion of the elbow however does have discomfort to the lateral right elbow. The differential diagnosis associated with this patient's presentation includes strain sprain or fracture. Our workup consisted of ordering/reviewing x-ray showed comminuted impacted radial head fracture. Patient splinted. See procedure note for details. Given outpatient referral through orthopedic surgery.. Diagnoses as of 12/06/24 0419 Closed nondisplaced fracture of head of right radius, initial encounter Diagnostic tests considered but not performed: External records reviewed: Diagnostics interpreted by me: Xray(s) proximal radius fracture Discussions with other clinicians: Chronic conditions impacting care: Social determinants of health affecting care: ED Medications managed: Medications - No data to display CONSULTS: None PROCEDURES: Unless otherwise noted below, none Splint Application Performed by: Bud Malik DO Authorized by: Bud Malik DO Consent: Consent obtained: Verbal Consent given by: Patient Risks, benefits, and alternatives were discussed: yes Risks discussed: Discoloration, numbness and pain Alternatives discussed: No treatment Roslyn protocol: Procedure explained and questions answered to patient or proxy's satisfaction: yes Patient identity confirmed: Verbally with patient Pre-procedure details: Distal neurologic exam: Normal Distal perfusion: distal pulses strong Procedure details: Location: Elbow Elbow location: R elbow Splint type: Long arm Supplies: Aluminum splint Attestation: Splint applied and adjusted personally by me Post-procedure details: Distal neurologic exam: Normal Distal perfusion: distal pulses strong Procedure completion: Tolerated Post-procedure imaging: not applicable Patients symptoms are consistent with sepsis, severe sepsis, or septic shock (If yes use .sepsiscoremeasure): FINAL IMPRESSION 1. Closed nondisplaced fracture of head of right radius, initial encounter DISPOSITION/PLAN dc PATIENT REFERRED TO: [facility] [place] [address] [place] [address] Dr [place] [phone] DISCHARGE MEDICATIONS: Discharge Medication List as of 12/05/2024 9:30 PM (Comment: Please note this report has been produced using speech recognition software and may contain errors related to that system including errors in grammar, punctuation, and spelling, as well as words and phrases that may be inappropriate. If there are any questions or concerns please feel free to contact the dictating provider for clarification.) Bud Malik DO (electronically signed) Emergency Medicine Provider\ Bud Malik DO 12/06/24 0420 documented in this encounter [facility] 12-05-2024 Physician Emergency department Note Associated Order(s): Splint Application EMERGENCY DEPARTMENT ENCOUNTER Pt Name: Kamila Joseph Birthdate 1955 Date of evaluation: 12/05/2024 ED Provider: Bud Malik DO CHIEF COMPLAINT Chief Complaint Patient presents with Fall Pt fell today while trying to step over a pile of wood in the garage, pt caught foot and landed on hands, did not hit head Elbow Pain Right elbow pain s/p fall Wrist Pain Right wrist pain s/p fall HISTORY OF PRESENT ILLNESS (Location/Symptom, Timing/Onset, Context/Setting, Quality, Duration, Modifying Factors, Severity) Note limiting factors. I wore appropriate PPE for the entirety of this encounter. HPI Kamila Joseph is a 69 y.o. female who presents to the emergency department with right elbow and wrist pain after mechanical fall. States she was stepping over a wood pile when she tripped and fell. Has mild amount of pain particularly with movement. No significant discomfort at rest. No other pain throughout the upper arm and neck or back. Also hit her left knee but has been ambulating normally since the injury and no pain. No hip pain chest pain shortness of breath abdominal pain. No syncopal nature to the fall. Patient is not anticoagulated. Nursing Notes were reviewed. REVIEW OF SYSTEMS 14 systems reviewed and otherwise acutely negative except as in the ALUTIIQ. PAST MEDICAL HISTORY Past Medical History: Diagnosis Date Benign paroxysmal positional vertigo due to bilateral vestibular disorder 05/01/2022 Depression GERD (gastroesophageal reflux disease) Greater trochanteric bursitis of right hip 05/01/2022 Heat intolerance Hyperlipidemia Hypertension IBS (irritable bowel syndrome) Inflamed sebaceous cyst 05/23/2021 Insomnia Sleep apnea SURGICAL HISTORY Past Surgical History: Procedure Laterality Date COLONOSCOPY 5 years ago COLONOSCOPY W/ BIOPSIES 08/11/2024 Performed by Mason Haynes MD at [facility] COLONOSCOPY W/ BIOPSIES AND POLYPECTOMY N/A 08/11/2024 Performed by Mason Haynes MD at [facility] TONSILLECTOMY (HISTORICAL) WRIST SURGERY CURRENT MEDICATIONS Discharge Medication List as of 12/05/2024 9:30 PM CONTINUE these medications which have NOT CHANGED Details Ascorbic Acid (vitamin C) 1000 MG tablet Take 1,000 mg by mouth daily., Starting Sat08/06/2023, Historical Med aspirin 81 MG EC tablet Take 81 mg by mouth daily., Historical Med busPIRone (Buspar) 15 MG tablet TAKE 1 TABLET BY MOUTH TWICE A DAY, Starting Sat03/05/2024, Normal clonazePAM (KlonoPIN) 0.5 MG tablet Take 0.5 tablets (0.25 mg) by mouth 2 times daily., Starting Sat10/16/2023, Until Sat09/08/2025, Normal diclofenac (Voltaren) 75 MG EC tablet TAKE 1 TABLET BY MOUTH TWICE A DAY DO NOT CRUSH, CHEW OR SPLIT, Normal diphenhydrAMINE (BENADryl) 25 MG tablet Take by mouth., Historical Med FLUoxetine (PROzac) 40 MG capsule Take 40 mg by mouth daily., Historical Med folic acid (Folvite) 1 MG tablet TAKE 1 TABLET BY MOUTH EVERY DAY, Normal lisinopril 2.5 MG tablet Take 2.5 mg by mouth daily., Starting Sat08/13/2022, Historical Med metoprolol succinate XL (Toprol-XL) 25 MG 24 hr tablet TAKE 1 TABLET BY MOUTH EVERY DAY, Starting Sat09/07/2024, Normal Multiple Vitamin (multivitamin) tablet Take 1 tablet by mouth daily., Historical Med simvastatin (Zocor) 40 MG tablet TAKE 1 TABLET BY MOUTH EVERY DAY NIGHTLY, Starting Sat07/06/2024, Normal valbenazine tosylate (Ingrezza) 40 MG capsule Take 1 capsule (40 mg) by mouth daily., Starting Sat09/14/2024, Until Sat09/14/2025, Normal ALLERGIES Vraylar [cariprazine] FAMILY HISTORY Family History Problem Relation Name Age of Onset Breast cancer Mother's Sister Substance Abuse Mother Heart disease Father Heart disease Mother SOCIAL HISTORY Social History Socioeconomic History Marital status: Tobacco Use Smoking status: Never Smokeless tobacco: Never Vaping Use Vaping status: Never Used Substance and Sexual Activity Alcohol use: No Drug use: No Sexual activity: Defer Social Drivers of Health Financial Resource Strain: Low Risk (12/30/2023) Overall Financial Resource Strain (CARDIA) Difficulty of Paying Living Expenses: Not hard at all Food Insecurity: No Food Insecurity (12/30/2023) Hunger Vital Sign Worried About Running Out of Food in the Last Year: Never true Ran Out of Food in the Last Year: Never true Transportation Needs: No Transportation Needs (12/30/2023) PRAPARE - Transportation Lack of Transportation (Medical): No Lack of Transportation (Non-Medical): No Physical Activity: Inactive (12/30/2023) Exercise Vital Sign Days of Exercise per Week: 0 days Minutes of Exercise per Session: 0 min Housing Stability: Low Risk (12/30/2023) Housing Stability Vital Sign Unable to Pay for Housing in the Last Year: No Number of Places Lived in the Last Year: 1 Unstable Housing in the Last Year: No SCREENINGS PHYSICAL EXAM ED Triage Vitals [12/05/242030] Temp Heart Rate Resp BP 36.9 C (98.5 F) 71 18 139/69 SpO2 Temp Source Heart Rate Source Patient Position 93 % Oral -- Lying BP Location FiO2 (%) Left arm -- CONSTITUTIONAL: AOx4, no apparent distress, appears stated age HEAD: normocephalic, atraumatic EYES: PERRL, EOMI ENT: moist mucous membranes, uvula midline NECK: supple, symmetric BACK: symmetric LUNGS: clear to auscultation bilaterally CARDIOVASCULAR: regular rate and rhythm ABDOMEN: soft, non-tender, non-distended with normal active bowel sounds : deferred NEUROLOGIC: MAEx4, no focal sensory or motor deficits MUSCULOSKELETAL: no clubbing, cyanosis or edema, mild tenderness palpation of the right lateral elbow joint line with full range of motion of the elbow and wrist SKIN: no exposed rash DIAGNOSTIC RESULTS Procedures/EKG: EKG was reviewed by myself. Physician EKG interpretation [facility] be [facility] in [facility] RADIOLOGY (Per Emergency Physician): Interpretation per the Radiologist below, if available at the time of this note: XR elbow 3+ views right Final Result Comminuted and impacted radial head fracture. No additional fracture or evidence of dislocation within the right elbow and right wrist. Report Dictated on Electronically Signed By: Rajni Robles DO Electronically Signed Date/Time: 12/05/2024 9:12 PM EST XR wrist 3+ views right Final Result Comminuted and impacted radial head fracture. No additional fracture or evidence of dislocation within the right elbow and right wrist. Report Dictated on Electronically Signed By: Rajni Robles DO Electronically Signed Date/Time: 12/05/2024 9:12 PM EST ED BEDSIDE ULTRASOUND: Performed by ED Physician - none LABS: Labs Reviewed - No data to display All other labs were within normal range or not returned as of this dictation. EMERGENCY DEPARTMENT COURSE and DIFFERENTIAL DIAGNOSIS/MDM: Vitals: Vitals: 12/05/24203012/05/24 2134 BP: 139/69 118/59 BP Location: Left arm Left arm Patient Position: Lying Lying Pulse: 71 70 Resp: 18 18 Temp: 36.9 C (98.5 F) TempSrc: Oral SpO2: 93% (!) 92% Weight: 81.2 kg (179 lb) Height: 1.575 m (5' 2) EMERGENCY DEPARTMENT COURSE and DIFFERENTIAL DIAGNOSIS/MDM: Vitals: Vitals: 12/05/24203012/05/24 2134 BP: 139/69 118/59 BP Location: Left arm Left arm Patient Position: Lying Lying Pulse: 71 70 Resp: 18 18 Temp: 36.9 C (98.5 F) TempSrc: Oral SpO2: 93% (!) 92% Weight: 81.2 kg (179 lb) Height: 1.575 m (5' 2) The patient presented with a chief complaint of right elbow and wrist pain. No bony tenderness throughout the wrist. Full range of motion of the wrist. Has full range of motion of the elbow however does have discomfort to the lateral right elbow. The differential diagnosis associated with this patient's presentation includes strain sprain or fracture. Our workup consisted of ordering/reviewing x-ray showed comminuted impacted radial head fracture. Patient splinted. See procedure note for details. Given outpatient referral through orthopedic surgery.. Diagnoses as of 12/06/24 0419 Closed nondisplaced fracture of head of right radius, initial encounter Diagnostic tests considered but not performed: External records reviewed: Diagnostics interpreted by me: Xray(s) proximal radius fracture Discussions with other clinicians: Chronic conditions impacting care: Social determinants of health affecting care: ED Medications managed: Medications - No data to display CONSULTS: None PROCEDURES: Unless otherwise noted below, none Splint Application Performed by: Bud Malik DO Authorized by: Bud Malik DO Consent: Consent obtained: Verbal Consent given by: Patient Risks, benefits, and alternatives were discussed: yes Risks discussed: Discoloration, numbness and pain Alternatives discussed: No treatment Roslyn protocol: Procedure explained and questions answered to patient or proxy's satisfaction: yes Patient identity confirmed: Verbally with patient Pre-procedure details: Distal neurologic exam: Normal Distal perfusion: distal pulses strong Procedure details: Location: Elbow Elbow location: R elbow Splint type: Long arm Supplies: Aluminum splint Attestation: Splint applied and adjusted personally by me Post-procedure details: Distal neurologic exam: Normal Distal perfusion: distal pulses strong Procedure completion: Tolerated Post-procedure imaging: not applicable Patients symptoms are consistent with sepsis, severe sepsis, or septic shock (If yes use .sepsiscoremeasure): FINAL IMPRESSION 1. Closed nondisplaced fracture of head of right radius, initial encounter DISPOSITION/PLAN dc PATIENT REFERRED TO: [facility] [place] [address] [place] [address] Dr [place] [phone] DISCHARGE MEDICATIONS: Discharge Medication List as of 12/05/2024 9:30 PM (Comment: Please note this report has been produced using speech recognition software and may contain errors related to that system including errors in grammar, punctuation, and spelling, as well as words and phrases that may be inappropriate. If there are any questions or concerns please feel free to contact the dictating provider for clarification.) Bud Malik DO (electronically signed) Emergency Medicine Provider\ Bud Malik DO 12/06/24 0420 [facility] 12-01-2024 Telephone encounter Note Chart reviewed. Prescription sent. Please review the below with the patient: The risks and appropriate dosing of NSAIDs (ie Meloxicam, Naproxen, Ibuprofen, etc) were discussed with the patient in detail. These include but are not limited to cardiovascular risk, renal toxicity, stomach irritation/refulx and/or peptic ulcer disease. If any of these side effects are experienced I advised the patient to discontinue the medication and contact both myself and their primary care physician. [facility] 12-01-2024 Miscellaneous Notes Chart reviewed. Prescription sent. Please review the below with the patient: The risks and appropriate dosing of NSAIDs (ie Meloxicam, Naproxen, Ibuprofen, etc) were discussed with the patient in detail. These include but are not limited to cardiovascular risk, renal toxicity, stomach irritation/refulx and/or peptic ulcer disease. If any of these side effects are experienced I advised the patient to discontinue the medication and contact both myself and their primary care physician. documented in this encounter [facility] 10-30-2024 History of Presen t illness Narrative Images from the original note were not included. [facility] [place] [address] [place] [phone] Dept: [phone] Dept Kamila Joseph 1955 [id number] 10/30/2024 Problem List: Neck pain Cervical myelopathy Cervical degenerative disc disease Cervical spondylosis Lumbar pain Lumbar degenerative disc disease Lumbar spondylosis (M54.2) Neck pain (G95.9) Cervical myelopathy (HCC) (M50.30) DDD (degenerative disc disease), cervical (M47.812) Cervical spondylosis (M54.50) Lumbar pain (M51.360) Degeneration of intervertebral disc of lumbar region with discogenic back pain (M47.816) Lumbar spondylosis Chief Complaint Patient presents with Back Pain New Patient HPI: Kamila is a 69 y.o. female who is here today for evaluation of her lumbar spine. Kamila is referred by Adriane Hubbard AP* Current symptoms: Pain is located in the low back that is radiating no. Numbness tingling: no Weakness: no PRASHANT: no known injury Duration of symptoms/DOI: chronic Symptoms are moderately affecting their quality of life. Associated neurologic complaints/Red flags: Gait/balance difficulty: has Use of ambulatory aid?: no device Able to walk a city block: No Bowel/bladder incontinence: has Urinary retention: No Saddle anesthesia: No Fine motor task difficulty/dropping things/handwriting changes: has History of cancer: No Aggravating factors: All activities when it hurts Alleviating Factors: NSAIDS Heating pad Do your symptoms improve with lying on your back or side: Yes Previous Treatment: PT: yes Where: [facility] When: 09/2024 Completed: Yes NSAIDS: Ibuprofen (Advil, Motrin) Injections: No Opioid medications: no Muscle relaxers: no Oral steroids: no Nerve medications (gabapentin/Lyrica): no Pain management: No Chiropractor: No Previous spine surgery: no History of DVT/PE or hypercoagulable state (including history of relative): no Blood thinning medications: ASA Work Status: Retired Is this a work related injury? No Review of Systems Musculoskeletal: Positive for arthralgias, back pain, gait problem and myalgias. Tobacco Use: Low Risk (10/12/2024) Patient History Smoking Tobacco Use: Never Smokeless Tobacco Use: Never Passive Exposure: Not on file Lab Results Component Value Date HGBA1C 5.8 (H) 10/30/2022 Allergies Allergen Reactions Vraylar [Cariprazine] Involuntary movement Current Outpatient Medications Medication Sig Dispense Refill Ascorbic Acid (vitamin C) 1000 MG tablet Take 1,000 mg by mouth daily. aspirin 81 MG EC tablet Take 81 mg by mouth daily. busPIRone (Buspar) 15 MG tablet TAKE 1 TABLET BY MOUTH TWICE A DAY 180 tablet 1 clonazePAM (KlonoPIN) 0.5 MG tablet Take 0.5 tablets (0.25 mg) by mouth 2 times daily. 30 tablet 0 diphenhydrAMINE (BENADryl) 25 MG tablet Take by mouth. FLUoxetine (PROzac) 40 MG capsule Take 40 mg by mouth daily. folic acid (Folvite) 1 MG tablet TAKE 1 TABLET BY MOUTH EVERY DAY 90 tablet 1 lisinopril 2.5 MG tablet Take 2.5 mg by mouth daily. metoprolol succinate XL (Toprol-XL) 25 MG 24 hr tablet TAKE 1 TABLET BY MOUTH EVERY DAY 90 tablet 1 Multiple Vitamin (multivitamin) tablet Take 1 tablet by mouth daily. simvastatin (Zocor) 40 MG tablet TAKE 1 TABLET BY MOUTH EVERY DAY NIGHTLY 90 tablet 1 valbenazine tosylate (Ingrezza) 40 MG capsule Take 1 capsule (40 mg) by mouth daily. 30 capsule 3 No current facility-administered medications for this visit. Past Medical History: Diagnosis Date Benign paroxysmal positional vertigo due to bilateral vestibular disorder 05/01/2022 Depression GERD (gastroesophageal reflux disease) Greater trochanteric bursitis of right hip 05/01/2022 Heat intolerance Hyperlipidemia Hypertension IBS (irritable bowel syndrome) Inflamed sebaceous cyst 05/23/2021 Insomnia Sleep apnea Past Surgical History: Procedure Laterality Date COLONOSCOPY 5 years ago COLONOSCOPY W/ BIOPSIES 08/11/2024 Performed by Mason Haynes MD at [facility] COLONOSCOPY W/ BIOPSIES AND POLYPECTOMY N/A 08/11/2024 Performed by Mason Haynes MD at [facility] TONSILLECTOMY (HISTORICAL) WRIST SURGERY Social History Socioeconomic History Marital status: Spouse name: Not on file Number of children: Not on file Years of education: Not on file Highest education level: Not on file Occupational History Not on file Tobacco Use Smoking status: Never Smokeless tobacco: Never Vaping Use Vaping status: Never Used Substance and Sexual Activity Alcohol use: No Drug use: No Sexual activity: Defer Other Topics Concern Not on file Social History Narrative Not on file Social Drivers of Health Financial Resource Strain: Low Risk (12/30/2023) Overall Financial Resource Strain (CARDIA) Difficulty of Paying Living Expenses: Not hard at all Food Insecurity: No Food Insecurity (12/30/2023) Hunger Vital Sign Worried About Running Out of Food in the Last Year: Never true Ran Out of Food in the Last Year: Never true Transportation Needs: No Transportation Needs (12/30/2023) PRAPARE - Transportation Lack of Transportation (Medical): No Lack of Transportation (Non-Medical): No Physical Activity: Inactive (12/30/2023) Exercise Vital Sign Days of Exercise per Week: 0 days Minutes of Exercise per Session: 0 min Stress: Not on file Social Connections: Not on file Intimate Partner Violence: Not on file Housing Stability: Low Risk (12/30/2023) Housing Stability Vital Sign Unable to Pay for Housing in the Last Year: No Number of Places Lived in the Last Year: 1 Unstable Housing in the Last Year: No Family History Problem Relation Name Age of Onset Breast cancer Mother's Sister Substance Abuse Mother Heart disease Father Heart disease Mother PHYSICAL EXAM Ht 5' 2 (1.575 m) Wt 179 lb (81.2 kg) BMI 32.74 kg/m SPINE/EXTREMITY: General: Patient is in no apparent distress. Gait is slightly antalgic, nonassisted. She is unable to toe walk or heel walk but can go up on her toes and back on her heels in a standing position. She is unable to tandem gait. Mild tenderness palpation of cervical and lumbar spine. Cervical Exam: Upper Extremity Motor: Del Bi Tri WE WF Int FF Right 4+ 5 5 5 5 4+ 4+ Left 4+ 5 5 5 5 4+ 4+ Upper extremity sensation to light touch: C5 C6 C7 C8 T1 Right Intact Intact Intact Intact Intact Left Intact Intact Intact Intact Intact Upper extremity reflexes: Bicep Tricep Brachioradialis Right 3+ 3+ 3+ Left 3+ 3+ 3+ Misc: Sher Spurling Right Positive Negative Left Positive Negative Rhomberg Positive Lhermitte's Sign Negative Lower Extremity Motor: HF Q TA EHL Peroneals GSC Right 5 5 4+ 3+ 4+ 4+ Left 5 5 5 5 4+ 4+ Lower extremity sensation to light touch: L2 L3 L4 L5 S1 Right Intact Intact Intact Intact Intact Left Intact Intact Intact Intact Intact Lower extremity reflexes: Patellar Achilles Right 3+ 2+ Left 3+ 2+ Straight leg raise: Right Negative Left Negative Misc: Clonus Right None Left None Hip exam: Bilateral hip range of motion is full and symmetric without pain. IMAGING Lumbar Spine: Date of Exam: 10/16/2024 Views: Lumbar 4V xrays (AP/LAT/FLEX/EXT) Findings: CLINICAL INFORMATION: Low back pain Frontal, lateral, bilateral oblique views of the lumbar spine were obtained with lateral L5-S1 spot view. There are 5 lumbar type vertebrae. Bone density appears normal. The vertebral body heights are within normal limits. The disc spaces show significant findings at L2-L3 with disc space narrowing and marginal osteophytes and at L5-S1 with disc space narrowing. No spondylolisthesis or spondylolysis is noted. The facet joints show hypertrophic degenerative changes lower lumbar spine. No fracture is noted. 1. Examination of the lumbar spine shows degenerative changes as discussed above. 2. Marked aortoiliac calcific atherosclerosis, probable tubal ligation clips in pelvis, question of possible punctate right renal calculus. Cervical Spine: Date of Exam: 10/30/2024 Views: 4 view Findings: There is no carotid artery calcifications noted. No abnormal pre-vertebral swelling. No obvious fracture or instability. No congenital stenosis. Maintenance of normal cervical lordosis noted. Mild multi-level degenerative disc disease noted with moderate degenerative changes at C6-C7. There are modeate spondylitic changes and facet arthropathy noted. NCT/EMG (Copied Impression) Date: none DEXA Date: ASSESSMENT See problem list above. Kamila is a 69 y.o. female presenting with lumbar pain, cervical myelopathy. Patient reports having history of chronic low back pain that is been worsening over the last several months. She describes her pain as a deep ache in her low back that does not radiate. She denies having any lower extremity radicular symptoms. The patient admits to having frequent falls and balance issues. She reports having hand weakness and dexterity issues. She denies having any loss of bowel or bladder function, saddle paresthesia, or significant symptoms of neurogenic claudication. I had a discussion with Kamila Joseph about their lumbar spine symptoms. We independently reviewed their imaging from 10/16/2024 which revealed mild degenerative disc disease with trace retrolisthesis at L2-L3. The patient has symptoms of lumbar spondylosis. We talked about this being a problem that is axial in nature. It is treated conservatively with medications, injections, exercise, patient care provider, acupuncture, massage therapy, and physical therapy. We talked about how surgery did not have favorable results when treating isolated axial back pain and that surgery was generally best indicated for nerve or spinal cord compression. The patient seems to understand their diagnosis as well as the treatment options. All questions were answered to the best of my ability. I had a discussion with Kamila Joseph about their cervical spine symptoms. We independently reviewed their imaging from today which revealed mild degenerative disc disease with moderate degenerative changes at C6/C7, moderate cervical spondylosis. The patient has symptoms of cervical myelopathy. We reviewed the imaging and discuss the findings. Cervical myelopathy results in progressive loss of fine motor skills in the hands as well as balance problems. This problem is generally progressive. It gets worse and worse with time. It is a surgical disorder meaning conservative treatment such as physical therapy, medication, and injections do not have any effect on the cord compression symptoms. Observation is warranted if the patient has no symptoms of balance/hand coordination problems or the symptoms are very mild and not progressive. Surgery is indicated if the patient is having significant symptoms or progression of the complaints. Surgery is designed to stop progression and does not necessarily make the symptoms improve or go away. The longer the symptoms have been there or the more significant the complaints the less likely the patient is to get improvement after the surgery. The patient seems to have a good understanding of diagnosis of cervical myelopathy, the natural history, and the treatment. All questions were answered to the best of my ability. The patient has not tried physical therapy for her low back. She is willing to try a home exercise program to see if this helps with her pain symptoms. She is also willing to try diclofenac. If she has no improvement in her symptoms after trying the home exercise program and medication I would be happy to see her back to discuss possibly ordering a lumbar spine MRI without contrast to evaluate for nerve compression. Regarding her possible cervical myelopathy-the patient's exam today was very concerning with hyperreflexia, positive Radha's bilaterally, positive Romberg, and poor balance. The patient has tried physical therapy for her balance recently with no improvement in her symptoms. Per the patient and her granddaughter, she has been progressively worsening with her balance and hand strength and dexterity over the last several months. I do feel a cervical spine MRI is needed to further evaluate for possible cervical myelopathy. The patient will follow-up with Dr. Mann for MRI review and to discuss treatment options including injection therapy or possible surgery. IMPRESSION I had a long discussion with Kamila to make sure she had a good understanding of what I think the main issues and diagnoses are that are affecting her today, and reviewed the plan going forward. PLAN: HEP: Lumbar/core/hip Medication(s): Diclofenac Patient also advised to try OTC tylenol and NSAIDs if not contraindicated Future Imaging: Cervical MRI WO contrast Follow up once imaging/testing completed with Dr. Mann The risks and appropriate dosing of NSAIDs (ie Meloxicam, Naproxen, Ibuprofen, etc) were discussed with the patient in detail. These include but are not limited to cardiovascular risk, renal toxicity, stomach irritation/refulx and/or peptic ulcer disease. If any of these side effects are experienced I advised the patient to discontinue the medication and contact both myself and their primary care physician. Electronically signed by SOO William CNP 10/30/2024 at 2:19 PM Dictated using [employer] Version 2.4 Proof read however unrecognized voice recognition errors may have occurred documented in this encounter [facility] 10-30-2024 Instructions Deborah Valenzuela MA - 10/30/2024 1:00 PM EST Images from the original note were not included. We will notify you once we have approval from your insurance. You will then call central scheduling at [phone] to schedule. Please call our office at [phone] once MRI is scheduled to schedule a follow up visit with Dr. Mann for review. documented in this encounter [facility] 10-12-2024 Evaluation + Plan note Associated Problem(s): Chronic midline low back pain without sciatica Patient has had continued low back pain with midline tenderness. Has completed physical therapy without significant improvement. Will obtain imaging for further evaluation. [facility] 10-12-2024 Note Patient has had cont inued low back pain with midline tenderness. Has completed physical therapy without significant improvement. Will obtain imaging for further evaluation. [facility] 10-12-2024 Evaluation + Plan note Associated Problem(s): Urinary tract infection symptoms UA unremarkable. Recommend retrying the bladder retraining and using alarms to assist with bathroom breaks. If symptoms not improving would recommend following up with urology [facility] 10-12-2024 Miscellaneous Notes Associated Problem(s): Chronic midline low back pain without sciatica Patient has had continued low back pain with midline tenderness. Has completed physical therapy without significant improvement. Will obtain imaging for further evaluation. Associated Problem(s): Urinary tract infection symptoms UA unremarkable. Recommend retrying the bladder retraining and using alarms to assist with bathroom breaks. If symptoms not improving would recommend following up with urology Associated Problem(s): Major depressive disorder, single episode, unspecified Stable. Managed by psychiatry continue current medications Associated Problem(s): Essential hypertension Controlled. Blood pressure 137/83, continue metoprolol 25 mg daily and lisinopril 2.5 mg daily Associated Problem(s): Acute pain of right shoulder X-ray was negative. Has had gradual improvement. Continue home physical therapy exercises. Associated Problem(s): Mixed stress and urge urinary incontinence Poorly controlled. Recommend restarting bladder retraining, recommend using an alarm to assist with scheduled voiding. UA unremarkable for UTI. documented in this encounter [facility] 10-12-2024 Evaluation + Plan note Associated Problem(s): Major depressive disorder, single episode, unspecified Stable. Managed by psychiatry continue current medications [facility] 10-12-2024 Evaluation + Plan note Associated Problem(s): Essential hypertension Controlled. Blood pressure 137/83, continue metoprolol 25 mg daily and lisinopril 2.5 mg daily [facility] 10-12-2024 Evaluation + Plan note Associated Problem(s): Acute pain of right shoulder X-ray was negative. Has had gradual improvement. Continue home physical therapy exercises. [facility] 10-12-2024 Evaluation + Plan note Associated Problem(s): Mixed stress and urge urinary incontinence Poorly controlled. Recommend restarting bladder retraining, recommend using an alarm to assist with scheduled voiding. UA unremarkable for UTI. [facility] 10-12-2024 History of Presen t illness Narrative Patient verified by last name and . Images from the original note were not included. 10/12/2024 Kamila Joseph (: 1955) is a 69 y.o. female , Established patient, here for evaluation of the following chief complaint(s): Follow-up (Is also wanting a UA, sx's being, lower back side pain, More frequent urination, no pain when urinating. ) ASSESSMENT/PLAN: 1. Acute pain of right shoulder Assessment & Plan: X-ray was negative. Has had gradual improvement. Continue home physical therapy exercises. 2. Urinary tract infection symptoms Assessment & Plan: UA unremarkable. Recommend retrying the bladder retraining and using alarms to assist with bathroom breaks. If symptoms not improving would recommend following up with urology Orders: - POCT urinalysis dipstick manually resulted 3. Mixed stress and urge urinary incontinence Assessment & Plan: Poorly controlled. Recommend restarting bladder retraining, recommend using an alarm to assist with scheduled voiding. UA unremarkable for UTI. 4. Chronic midline low back pain without sciatica Assessment & Plan: Patient has had continued low back pain with midline tenderness. Has completed physical therapy without significant improvement. Will obtain imaging for further evaluation. Orders: - XR lumbar spine 4-5 view 5. Essential hypertension Assessment & Plan: Controlled. Blood pressure 137/83, continue metoprolol 25 mg daily and lisinopril 2.5 mg daily 6. Major depressive disorder with single episode, in partial remission (HCC) Assessment & Plan: Stable. Managed by psychiatry continue current medications Requires extended office visit Follow up in about 2 months (around 12/13/2024). SUBJECTIVE/OBJECTIVE: LIZETH Joseph (: 1955) is a 69 y.o. female , Established patient, here for the evaluation of the following chief complaint(s): Follow-up (Is also wanting a UA, sx's being, lower back side pain, More frequent urination, no pain when urinating. ) Patient presents for follow-up urinary frequency, continued low back pain on the left side. Right shoulder pain. Reports that she has had no additional falls since we saw her last. Her right shoulder pain has improved and she is doing her home exercises. She continues to have problems with urinary frequency and urgency. Last visit we discussed doing bladder retraining. She states that it did not work, however was forgetting to go to the bathroom when scheduled. Low left back pain waxes and wanes radiates into the left buttock, denies any pain or radiation down the legs. She sees neurology for movement disorder secondary to psychiatric medication. Reports her movement disorder has mostly resolved in regards to tardive dyskinesia, they decreased her Ingrezza from 80-40 a couple weeks ago to see if it would help with her Parkinson like movements. She states the physical therapy for her gait training was not beneficial so she stopped going. She sees psychiatry and reports that overall her mood and anxiety has been okay. She sees the neurologist and the psychiatrist again in November. Prior to Admission medications Medication Sig Start Date End Date Taking? Authorizing Provider Ascorbic Acid (vitamin C) 1000 MG tablet Take 1,000 mg by mouth daily. 08/06/23 Yes Historical Provider, aspirin 81 MG EC tablet Take 81 mg by mouth daily. Yes Historical Provider, busPIRone (Buspar) 15 MG tablet TAKE 1 TABLET BY MOUTH TWICE A DAY 03/05/24 Yes SOO Hunter CNP clonazePAM (KlonoPIN) 0.5 MG tablet Take 0.5 tablets (0.25 mg) by mouth 2 times daily. 10/16/23 09/08/25 Yes SOO Grant CNP diphenhydrAMINE (BENADryl) 25 MG tablet Take by mouth. Yes Historical Provider, FLUoxetine (PROzac) 40 MG capsule Take 40 mg by mouth daily. Yes Historical Provider, folic acid (Folvite) 1 MG tablet TAKE 1 TABLET BY MOUTH EVERY DAY 09/03/24 Yes SOO Grant CNP lisinopril 2.5 MG tablet Take 2.5 mg by mouth daily. 08/13/22 Yes Historical Provider, metoprolol succinate XL (Toprol-XL) 25 MG 24 hr tablet TAKE 1 TABLET BY MOUTH EVERY DAY 09/07/24 Yes Juvencio Davila MD Multiple Vitamin (multivitamin) tablet Take 1 tablet by mouth daily. Yes Historical Provider, simvastatin (Zocor) 40 MG tablet TAKE 1 TABLET BY MOUTH EVERY DAY NIGHTLY 07/06/24 Yes Juvencio Davila MD valbenazine tosylate (Ingrezza) 40 MG capsule Take 1 capsule (40 mg) by mouth daily. 09/14/24 09/14/25 Yes Jie Miranda MD Review of Systems Constitutional: Negative for activity change, chills, fatigue and fever. Respiratory: Negative. Cardiovascular: Negative. Gastrointestinal: Negative. Genitourinary: Positive for frequency. Negative for difficulty urinating. Musculoskeletal: Positive for arthralgias, back pain and gait problem. Neurological: Negative for dizziness, light-headedness and headaches. Psychiatric/Behavioral: Positive for dysphoric mood. Negative for agitation, self-injury, sleep disturbance and suicidal ideas. The patient is nervous/anxious. Vitals: 10/12/24 1335 BP: 137/83 BP Location: Left arm Patient Position: Sitting Pulse: 61 SpO2: 98% Weight: 179 lb 12.8 oz (81.6 kg) Height: 5' 2 (1.575 m) Physical Exam Constitutional: General: She is not in acute distress. Appearance: Normal appearance. She is not ill-appearing. Cardiovascular: Rate and Rhythm: Normal rate and regular rhythm. Pulses: Normal pulses. Heart sounds: Normal heart sounds. Pulmonary: Effort: Pulmonary effort is normal. Breath sounds: Normal breath sounds. Musculoskeletal: Right shoulder: Normal. Left shoulder: Normal. Lumbar back: Spasms (Left lumbar) and bony tenderness present. No tenderness. Normal range of motion. Negative right straight leg raise test and negative left straight leg raise test. Back: Neurological: Mental Status: She is alert and oriented to person, place, and time. An electronic signature was used to authenticate this note. SOO Hodge CNP 10/12/2024 5:54 PM documented in this encounter [facility] 09-14-2024 History of Presen t illness Narrative Department of Neurological Sciences Visit Note CHIEF COMPLAINT: Chief Complaint Patient presents with Follow-up Parkinson's Disease Main diagnoses: Tardative dyskinesia, parkinsonism HISTORY OF PRESENT ILLNESS: The patient is a 69 y.o. female today presents to the Neurology clinic for follow up of parkinson's disease. She is accompanied by her daughter today for the visit. The patient reports she has good days and bad days. She apparently had a fall in the shower last week. She is on Ingrezza 80 mg to control dyskinesia of her mouth. She no longer is exhibiting these. Now her main problem really is resting tremor associated with gait disorder specifically shuffling as well as decreased arm swing. Thank you we will decrease Ingrezza to 40 mg to see if this improves the patients walking and balance for her. She is also prescribed Clonazepam 0.25 by psychiatry along with Buspar. Secundary diagnoses: Parkinsonism. Depression Medications: Current Outpatient Medications Medication Sig Dispense Refill Ascorbic Acid (vitamin C) 1000 MG tablet Take 1,000 mg by mouth daily. aspirin 81 MG EC tablet Take 81 mg by mouth daily. busPIRone (Buspar) 15 MG tablet TAKE 1 TABLET BY MOUTH TWICE A DAY 180 tablet 1 clonazePAM (KlonoPIN) 0.5 MG tablet Take 0.5 tablets (0.25 mg) by mouth 2 times daily. 30 tablet 0 diphenhydrAMINE (BENADryl) 25 MG tablet Take by mouth. FLUoxetine (PROzac) 40 MG capsule Take 40 mg by mouth daily. folic acid (Folvite) 1 MG tablet TAKE 1 TABLET BY MOUTH EVERY DAY 90 tablet 1 lisinopril 2.5 MG tablet Take 2.5 mg by mouth daily. metoprolol succinate XL (Toprol-XL) 25 MG 24 hr tablet TAKE 1 TABLET BY MOUTH EVERY DAY 90 tablet 1 Multiple Vitamin (multivitamin) tablet Take 1 tablet by mouth daily. simvastatin (Zocor) 40 MG tablet TAKE 1 TABLET BY MOUTH EVERY DAY NIGHTLY 90 tablet 1 valbenazine tosylate (Ingrezza) 80 MG capsule Take 1 capsule (80 mg) by mouth daily. 30 capsule 11 methenamine hippurate (Hiprex) 1 g tablet (Patient not taking: Reported on 09/14/2024) valbenazine tosylate (Ingrezza) 40 MG capsule Take 1 capsule (40 mg) by mouth daily. 30 capsule 3 No current facility-administered medications for this visit. Allergies: Vraylar [cariprazine] Social History: Social History Socioeconomic History Marital status: Spouse name: Not on file Number of children: Not on file Years of education: Not on file Highest education level: Not on file Occupational History Not on file Tobacco Use Smoking status: Never Smokeless tobacco: Never Vaping Use Vaping status: Never Used Substance and Sexual Activity Alcohol use: No Drug use: No Sexual activity: Defer Other Topics Concern Not on file Social History Narrative Not on file Social Drivers of Health Financial Resource Strain: Low Risk (12/30/2023) Overall Financial Resource Strain (CARDIA) Difficulty of Paying Living Expenses: Not hard at all Food Insecurity: No Food Insecurity (12/30/2023) Hunger Vital Sign Worried About Running Out of Food in the Last Year: Never true Ran Out of Food in the Last Year: Never true Transportation Needs: No Transportation Needs (12/30/2023) PRAPARE - Transportation Lack of Transportation (Medical): No Lack of Transportation (Non-Medical): No Physical Activity: Inactive (12/30/2023) Exercise Vital Sign Days of Exercise per Week: 0 days Minutes of Exercise per Session: 0 min Stress: Not on file Social Connections: Not on file Intimate Partner Violence: Not on file Housing Stability: Low Risk (12/30/2023) Housing Stability Vital Sign Unable to Pay for Housing in the Last Year: No Number of Places Lived in the Last Year: 1 Unstable Housing in the Last Year: No Family History: Family History Problem Relation Name Age of Onset Breast cancer Mother's Sister Substance Abuse Mother Heart disease Father Heart disease Mother REVIEW OF SYSTEMS: Review of Systems Constitutional: Positive for activity change. HENT: Positive for rhinorrhea. Eyes: Negative. Respiratory: Negative. Cardiovascular: Negative. Gastrointestinal: Negative. Endocrine: Negative. Genitourinary: Negative. Musculoskeletal: Positive for arthralgias and joint swelling. Skin: Negative. Allergic/Immunologic: Negative. Neurological: Positive for tremors, speech difficulty and weakness. Hematological: Bruises/bleeds easily. Psychiatric/Behavioral: Positive for confusion and decreased concentration. The patient is nervous/anxious. PHYSICAL EXAM: Vitals: BP 122/66 (BP Location: Left arm) Pulse 62 Temp 36.3 C (97.3 F) (Infrared) Ht 5' 2 (1.575 m) Wt 189 lb (85.7 kg) BMI 34.57 kg/m Physical Exam Constitutional: Appearance: Normal appearance. HENT: Head: Normocephalic and atraumatic. Nose: Nose normal. Mouth/Throat: Mouth: Mucous membranes are moist. Pharynx: Oropharynx is clear. Eyes: General: Vision grossly intact. Gaze aligned appropriately. Extraocular Movements: Extraocular movements intact. Conjunctiva/sclera: Conjunctivae normal. Pupils: Pupils are equal, round, and reactive to light. Neck: Trachea: Trachea and phonation normal. Cardiovascular: Rate and Rhythm: Normal rate and regular rhythm. Pulses: Normal pulses. Heart sounds: Normal heart sounds. Pulmonary: Effort: Pulmonary effort is normal. Breath sounds: Normal breath sounds. Abdominal: General: Abdomen is flat. Bowel sounds are normal. Palpations: Abdomen is soft. Musculoskeletal: General: Normal range of motion. Cervical back: Normal range of motion and neck supple. Skin: General: Skin is warm and dry. Neurological: General: No focal deficit present. Mental Status: She is alert and oriented to person, place, and time. Mental status is at baseline. Cranial Nerves: Cranial nerves 2-12 are intact. Deep Tendon Reflexes: Reflexes are normal and symmetric. Reflex Scores: Tricep reflexes are 2+ on the right side and 2+ on the left side. Bicep reflexes are 2+ on the right side and 2+ on the left side. Brachioradialis reflexes are 2+ on the right side and 2+ on the left side. Patellar reflexes are 2+ on the right side and 2+ on the left side. Achilles reflexes are 2+ on the right side and 2+ on the left side. Psychiatric: Attention and Perception: Attention normal. Mood and Affect: Mood normal. Speech: Speech normal. Behavior: Behavior normal. Behavior is cooperative. Thought Content: Thought content normal. Cognition and Memory: Cognition normal. Judgment: Judgment normal. Impression: Diagnosis Plan 1. Dyskinesia valbenazine tosylate (Ingrezza) 40 MG capsule 2. Other drug-induced secondary parkinsonism (HCC) Plan: 1. Patient appeared to be developing parkinsonism. This could be a side effect from Ingrezza. Therefore we are going to decrease patient dosage from 80 mg p.o. daily to 40 mg p.o. daily. 2. Patient will return to the neurology clinic in 2 months. At that time the patient parkinsonism per prescription since we will discontinue patient medication. Thank you Jie Miranda MD documented in this encounter [facility] 09-08-2024 Evaluation + Plan note Associated Problem(s): Mixed stress and urge urinary incontinence Poorly controlled. Recommend starting bladder retraining. Reviewed and provided written instruction. Follow up in about 4 weeks. Would not recommend avoiding urinary incontinence medications d/t risks associated with them. [facility] 09-08-2024 Miscellaneous Notes Associated Problem(s): Mixed stress and urge urinary incontinence Poorly controlled. Recommend starting bladder retraining. Reviewed and provided written instruction. Follow up in about 4 weeks. Would not recommend avoiding urinary incontinence medications d/t risks associated with them. Associated Problem(s): Acute pain of right shoulder Obtain xray to r/o any fracture d/t fall. Suspect soft tissue injury and possible rotator cuff tear. Recommend rice x 1 week, then start stretches/exercises provided. If not improving in a couple weeks, would recommend formal physical therapy documented in this encounter [facility] 09-08-2024 Miscellaneous Notes Associated Problem(s): Mixed stress and urge urinary incontinence Poorly controlled. Recommend starting bladder retraining. Reviewed and provided written instruction. Follow up in about 4 weeks. Would not recommend avoiding urinary incontinence medications d/t risks associated with them. Associated Problem(s): Acute pain of right shoulder Obtain xray to r/o any fracture d/t fall. Suspect soft tissue injury and possible rotator cuff tear. Recommend rice x 1 week, then start stretches/exercises provided. If not improving in a couple weeks, would recommend formal physical therapy Addended by: ADRIANE HUBBARD on: 09/16/2024 06:06 AM Modules accepted: Level of Service documented in this encounter [facility] 09-08-2024 Evaluation + Plan note Associated Problem(s): Acute pain of right shoulder Obtain xray to r/o any fracture d/t fall. Suspect soft tissue injury and possible rotator cuff tear. Recommend rice x 1 week, then start stretches/exercises provided. If not improving in a couple weeks, would recommend formal physical therapy [facility] 09-08-2024 History of Presen t illness Narrative Patient verified by last name and . Images from the original note were not included. 09/08/2024 Kamila Joseph (: 1955) is a 69 y.o. female , Established patient, here for evaluation of the following chief complaint(s): Follow-up (Fall- states mat in the shower gave away and she fell, all on Saturday/Urinary Incontinence- States that she can't make it to the bathroom when she does have to go.(Gave water for UA as she does not have to go at this time) ) ASSESSMENT/PLAN: 1. Acute pain of right shoulder Assessment & Plan: Obtain xray to r/o any fracture d/t fall. Suspect soft tissue injury and possible rotator cuff tear. Recommend rice x 1 week, then start stretches/exercises provided. If not improving in a couple weeks, would recommend formal physical therapy Orders: - XR shoulder 2+ views right 2. Mixed stress and urge urinary incontinence Assessment & Plan: Poorly controlled. Recommend starting bladder retraining. Reviewed and provided written instruction. Follow up in about 4 weeks. Would not recommend avoiding urinary incontinence medications d/t risks associated with them. Follow up in about 3 weeks (around 09/29/2024). SUBJECTIVE/OBJECTIVE: LIZETH - Kamila Joseph (: 1955) is a 69 y.o. female , Established patient, here for the evaluation of the following chief complaint(s): Follow-up (Fall- states mat in the shower gave away and she fell, all on Saturday/Urinary Incontinence- States that she can't make it to the bathroom when she does have to go.(Gave water for UA as she does not have to go at this time) ) Did not lose consciousness, hurt her right shoulder and lower arm. Did not hit her head. Was able to get up on her own. Did not hurt anything else. Has a bruise on her lower right arm. No bruising on the shoulder. Hurts to lift arm about shoulder height. No numnbess nor tingling Hurts to move the shoulder. Leaks urine with cough and sneezing, can tell when she needs to urinate. Is unable to get to the bathroom in time and leaks urine. Staying dry at nighttime. Usually urinates aobut 8 times per day. Prior to Admission medications Medication Sig Start Date End Date Taking? Authorizing Provider Ascorbic Acid (vitamin C) 1000 MG tablet Take 1,000 mg by mouth daily. 08/06/23 Yes Historical Provider, aspirin 81 MG EC tablet Take 81 mg by mouth daily. Yes Historical Provider, busPIRone (Buspar) 15 MG tablet TAKE 1 TABLET BY MOUTH TWICE A DAY 03/05/24 Yes SOO Hunter CNP clonazePAM (KlonoPIN) 0.5 MG tablet Take 0.5 tablets (0.25 mg) by mouth 2 times daily. 10/16/23 09/08/25 Yes SOO Grant CNP FLUoxetine (PROzac) 40 MG capsule Take 40 mg by mouth daily. Yes Historical Provider, folic acid (Folvite) 1 MG tablet TAKE 1 TABLET BY MOUTH EVERY DAY 09/03/24 Yes SOO Grant CNP lisinopril 2.5 MG tablet Take 2.5 mg by mouth daily. 08/13/22 Yes Historical Provider, methenamine hippurate (Hiprex) 1 g tablet 05/09/23 Yes Historical Provider, metoprolol succinate XL (Toprol-XL) 25 MG 24 hr tablet TAKE 1 TABLET BY MOUTH EVERY DAY 09/07/24 Yes Juvencio Davila MD Multiple Vitamin (multivitamin) tablet Take 1 tablet by mouth daily. Yes Historical Provider, simvastatin (Zocor) 40 MG tablet TAKE 1 TABLET BY MOUTH EVERY DAY NIGHTLY 07/06/24 Yes Juvencio Davila MD valbenazine tosylate (Ingrezza) 80 MG capsule Take 1 capsule (80 mg) by mouth daily. 10/25/23 10/24/24 Yes SOO Mtz CNP folic acid (Folvite) 1 MG tablet TAKE 1 TABLET BY MOUTH EVERY DAY 02/10/24 09/03/24 Adriane SOO Hubbard CNP metoprolol succinate XL (Toprol-XL) 25 MG 24 hr tablet Take 1 tablet (25 mg) by mouth daily. 03/09/24 09/07/24 Juvencio Davila MD Review of Systems Constitutional: Negative for activity change, fatigue and fever. Respiratory: Negative. Cardiovascular: Negative. Genitourinary: Positive for frequency and urgency. Negative for difficulty urinating, dysuria, flank pain, hematuria, pelvic pain, vaginal bleeding, vaginal discharge and vaginal pain. Musculoskeletal: Positive for arthralgias (right shoulder). Vitals: 09/08/24 1001 BP: 139/71 BP Location: Right arm Patient Position: Sitting Pulse: 59 SpO2: 93% Weight: 189 lb 6.4 oz (85.9 kg) Height: 5' 2 (1.575 m) Physical Exam Constitutional: General: She is not in acute distress. Appearance: Normal appearance. She is not ill-appearing. Cardiovascular: Rate and Rhythm: Normal rate and regular rhythm. Pulses: Normal pulses. Heart sounds: Normal heart sounds. Pulmonary: Effort: Pulmonary effort is normal. Breath sounds: Normal breath sounds. Musculoskeletal: Right shoulder: Tenderness present. No bony tenderness or crepitus. Decreased range of motion. Normal strength. Left shoulder: Normal. Comments: + apley scratch. No bruising noted. Skin: General: Skin is warm and dry. Findings: Bruising (right lower arm) present. Neurological: Mental Status: She is alert and oriented to person, place, and time. An electronic signature was used to authenticate this note. SOO Hodge CNP 09/08/2024 11:35 AM documented in this encounter [facility] 09-08-2024 History of Presen t illness Narrative Patient verified by last name and . Images from the original note were not included. 09/08/2024 Kamila Joseph (: 1955) is a 69 y.o. female , Established patient, here for evaluation of the following chief complaint(s): Follow-up (Fall- states mat in the shower gave away and she fell, all on Saturday/Urinary Incontinence- States that she can't make it to the bathroom when she does have to go.(Gave water for UA as she does not have to go at this time) ) ASSESSMENT/PLAN: 1. Acute pain of right shoulder Assessment & Plan: Obtain xray to r/o any fracture d/t fall. Suspect soft tissue injury and possible rotator cuff tear. Recommend rice x 1 week, then start stretches/exercises provided. If not improving in a couple weeks, would recommend formal physical therapy Orders: - XR shoulder 2+ views right 2. Mixed stress and urge urinary incontinence Assessment & Plan: Poorly controlled. Recommend starting bladder retraining. Reviewed and provided written instruction. Follow up in about 4 weeks. Would not recommend avoiding urinary incontinence medications d/t risks associated with them. Follow up in about 3 weeks (around 09/29/2024). SUBJECTIVE/OBJECTIVE: HPI - Kamila Joseph (: 1955) is a 69 y.o. female , Established patient, here for the evaluation of the following chief complaint(s): Follow-up (Fall- states mat in the shower gave away and she fell, all on Saturday/Urinary Incontinence- States that she can't make it to the bathroom when she does have to go.(Gave water for UA as she does not have to go at this time) ) Did not lose consciousness, hurt her right shoulder and lower arm. Did not hit her head. Was able to get up on her own. Did not hurt anything else. Has a bruise on her lower right arm. No bruising on the shoulder. Hurts to lift arm about shoulder height. No numnbess nor tingling Hurts to move the shoulder. Leaks urine with cough and sneezing, can tell when she needs to urinate. Is unable to get to the bathroom in time and leaks urine. Staying dry at nighttime. Usually urinates aobut 8 times per day. Prior to Admission medications Medication Sig Start Date End Date Taking? Authorizing Provider Ascorbic Acid (vitamin C) 1000 MG tablet Take 1,000 mg by mouth daily. 08/06/23 Yes Historical Provider, aspirin 81 MG EC tablet Take 81 mg by mouth daily. Yes Historical Provider, busPIRone (Buspar) 15 MG tablet TAKE 1 TABLET BY MOUTH TWICE A DAY 03/05/24 Yes SOO Hunter CNP clonazePAM (KlonoPIN) 0.5 MG tablet Take 0.5 tablets (0.25 mg) by mouth 2 times daily. 10/16/23 09/08/25 Yes SOO Grant CNP FLUoxetine (PROzac) 40 MG capsule Take 40 mg by mouth daily. Yes Historical Provider, folic acid (Folvite) 1 MG tablet TAKE 1 TABLET BY MOUTH EVERY DAY 09/03/24 Yes SOO Grant CNP lisinopril 2.5 MG tablet Take 2.5 mg by mouth daily. 08/13/22 Yes Historical Provider, methenamine hippurate (Hiprex) 1 g tablet 05/09/23 Yes Historical Provider, metoprolol succinate XL (Toprol-XL) 25 MG 24 hr tablet TAKE 1 TABLET BY MOUTH EVERY DAY 09/07/24 Yes Juvencio Davila MD Multiple Vitamin (multivitamin) tablet Take 1 tablet by mouth daily. Yes Historical Provider, simvastatin (Zocor) 40 MG tablet TAKE 1 TABLET BY MOUTH EVERY DAY NIGHTLY 07/06/24 Yes Juvencio Davila MD valbenazine tosylate (Ingrezza) 80 MG capsule Take 1 capsule (80 mg) by mouth daily. 10/25/23 10/24/24 Yes SOO Mtz CNP folic acid (Folvite) 1 MG tablet TAKE 1 TABLET BY MOUTH EVERY DAY 02/10/24 09/03/24 SOO Grant CNP metoprolol succinate XL (Toprol-XL) 25 MG 24 hr tablet Take 1 tablet (25 mg) by mouth daily. 03/09/24 09/07/24 Juvencio Davila MD Review of Systems Constitutional: Negative for activity change, fatigue and fever. Respiratory: Negative. Cardiovascular: Negative. Genitourinary: Positive for frequency and urgency. Negative for difficulty urinating, dysuria, flank pain, hematuria, pelvic pain, vaginal bleeding, vaginal discharge and vaginal pain. Musculoskeletal: Positive for arthralgias (right shoulder). Vitals: 09/08/24 1001 BP: 139/71 BP Location: Right arm Patient Position: Sitting Pulse: 59 SpO2: 93% Weight: 189 lb 6.4 oz (85.9 kg) Height: 5' 2 (1.575 m) Physical Exam Constitutional: General: She is not in acute distress. Appearance: Normal appearance. She is not ill-appearing. Cardiovascular: Rate and Rhythm: Normal rate and regular rhythm. Pulses: Normal pulses. Heart sounds: Normal heart sounds. Pulmonary: Effort: Pulmonary effort is normal. Breath sounds: Normal breath sounds. Musculoskeletal: Right shoulder: Tenderness present. No bony tenderness or crepitus. Decreased range of motion. Normal strength. Left shoulder: Normal. Comments: + apley scratch. No bruising noted. Skin: General: Skin is warm and dry. Findings: Bruising (right lower arm) present. Neurological: Mental Status: She is alert and oriented to person, place, and time. An electronic signature was used to authenticate this note. SOO Hodge CNP 09/08/2024 11:35 AM documented in this encounter [facility] 09-08-2024 Note Addended by: ADRIANE ROGERS on: 09/16/2024 06:06 AM Modules accepted: Level of Service [facility] 09-07-2024 Telephone encounter Note Prescription Request: Last medication check: 07/08/24 Last physical exam: 12/30/23 Next scheduled appointment: 12/30/24 Last date of refill on this medication 03/09/24 90 and 1 refill [facility] 09-07-2024 Miscellaneous Notes Prescription Request: Last medication check: 07/08/24 Last physical exam: 12/30/23 Next scheduled appointment: 12/30/24 Last date of refill on this medication 03/09/24 90 and 1 refill documented in this encounter [facility] 09-03-2024 Telephone encounter Note Reviewed chart. Refill appropriate. RX sent. [facility] 09-03-2024 Miscellaneous Notes Reviewed chart. Refill appropriate. RX sent. Prescription Request: Last medication check: 07/08/24 Last physical exam: 12/30/23 Next scheduled appointment: 12/30/24 Last date of refill on this medication 02/10/24 documented in this encounter [facility] 09-03-2024 Telephone encounter Note Prescription Request: Last medication check: 07/08/24 Last physical exam: 12/30/23 Next scheduled appointment: 12/30/24 Last date of refill on this medication 02/10/24 [facility] 08-24-2024 Telephone encounter Note Images from the original note were not included. Called patient regarding recent endoscopy results. Patient did not answer - given her baseline health status and comorbid conditions, her POA and daughter was listed as phone contact and that is who I contacted and subsequently did have to leave a voicemail. Colonoscopy demonstrated 2 tubular adenomas Recommend a 5 year surveillance follow up. Patient was agreeable when we discussed this post-procedure as anticipated follow up. Will place in our office recall system appropriately. Component Final Diagnosis A. COLON, CECUM, POLYP, - POLYPECTOMY TUBULAR ADENOMA; NEGATIVE FOR HIGH-GRADE DYSPLASIA. B. COLON, ASCENDING, POLYP, POLYPECTOMY: - EARLY TUBULAR ADENOMA; NEGATIVE FOR HIGH-GRADE DYSPLASIA. at 2011 Clinical Information Encounter for screening for malignant neoplasm of colon Gross Description A. Received in formalin labeled cecum polyp are three stein-pink tissue fragments that all measure 0.3 cm. The specimen is entirely submitted in a single cassette. B. Received in formalin labeled descending colon polyp is a stein-pink strip of mucosa that measures 1 x 0.6 cm. The possible resection margin is identified and inked black for microscopic evaluation. The specimen is bisected and entirely submitted in a single cassette. Disclaimer Department of Surgery [facility] [employer] [employer] 08-24-2024 Miscellaneous Notes Images from the original note were not included. Called patient regarding recent endoscopy results. Patient did not answer - given her baseline health status and comorbid conditions, her POA and daughter was listed as phone contact and that is who I contacted and subsequently did have to leave a voicemail. Colonoscopy demonstrated 2 tubular adenomas Recommend a 5 year surveillance follow up. Patient was agreeable when we discussed this post-procedure as anticipated follow up. Will place in our office recall system appropriately. Component Final Diagnosis A. COLON, CECUM, POLYP, - POLYPECTOMY TUBULAR ADENOMA; NEGATIVE FOR HIGH-GRADE DYSPLASIA. B. COLON, ASCENDING, POLYP, POLYPECTOMY: - EARLY TUBULAR ADENOMA; NEGATIVE FOR HIGH-GRADE DYSPLASIA. at 2012 Clinical Information Encounter for screening for malignant neoplasm of colon Gross Description A. Received in formalin labeled cecum polyp are three stein-pink tissue fragments that all measure 0.3 cm. The specimen is entirely submitted in a single cassette. B. Received in formalin labeled descending colon polyp is a stein-pink strip of mucosa that measures 1 x 0.6 cm. The possible resection margin is identified and inked black for microscopic evaluation. The specimen is bisected and entirely submitted in a single cassette. Disclaimer Department of Surgery documented in this encounter [facility] 08-11-2024 Miscellaneous Notes Granddaughter assisted patient with getting dressed. Patient ambulatory to/from with assist. Assisted into wheelchair and out to car with family and volunteer. Patient tolerating PO fluids and crackers. Discharge instructions reviewed with patient and granddaughter. Both verbalize understanding. Received patient from OR to PACU with R[facility]BIT BREEDER. Patient sedated on room air. No respiratory distress noted. Monitor on, safety maintained. Rn and granddaughter bedside[facility] Procedure Date: 08/11/2024 7:34 AM Gender: Female Date of : 1955 Age: 69 Admit Type: Outpatient Note Status: Finalized Endoscopist: Mason Haynes MD, Procedure: Colonoscopy Indications: Screening for colorectal malignant neoplasm Findings: A 6 mm polyp was found in the descending colon. The polyp was sessile. The polyp was removed with a cold snare. Resection and retrieval were complete. Verification of patient identification for the specimen was done. Estimated blood loss was minimal. A less than 5 mm polyp was found in the cecum. The polyp was sessile. The polyp was removed with a cold biopsy forceps. Resection and retrieval were complete. Verification of patient identification for the specimen was done. Estimated blood loss was minimal. The exam was otherwise without abnormality on direct and retroflexion views. Recommendation: - Patient has a contact number available for emergencies. The signs and symptoms of potential delayed complications were discussed with the patient. Return to normal activities tomorrow. Written discharge instructions were provided to the patient. - Resume previous diet. - Continue present medications. - Repeat colonoscopy in 5 years for surveillance based on pathology results. Referring MD: Juvencio Davila MD Medicines: Monitored Anesthesia Care Procedure: Pre-Anesthesia Assessment: - Prior to the procedure, a History and Physical was performed, and patient medications and allergies were reviewed. The patient's tolerance of previous anesthesia was also reviewed. The risks and benefits of the procedure and the sedation options and risks were discussed with the patient. All questions were answered, and informed consent was obtained. Prior Anticoagulants: The patient has taken no anticoagulant or antiplatelet agents except for aspirin. ASA Grade Assessment: III - A patient with severe systemic disease. After reviewing the risks and benefits, the patient was deemed in satisfactory condition to undergo the procedure. - The anesthesia plan was to use monitored anesthesia care (MAC). After I obtained informed consent, the scope was passed under direct vision. Throughout the procedure, the patient's blood pressure, pulse, and oxygen saturations were monitored continuously. The was introduced through the anus and advanced to the cecum, identified by appendiceal orifice and ileocecal valve. The colonoscopy was performed without difficulty. The patient tolerated the procedure well. The quality of the bowel preparation was good. The ileocecal valve, appendiceal orifice, and rectum were photographed. Complications: No immediate complications. Procedure Code(s): --- Professional --- 84717, Colonoscopy, flexible; with removal of tumor(s), polyp(s), or other lesion(s) by snare technique 34866, 59, Colonoscopy, flexible; with biopsy, single or multiple --- Technical --- 93723, Colonoscopy, flexible; with removal of tumor(s), polyp(s), or other lesion(s) by snare technique 14954, 59, Colonoscopy, flexible; with biopsy, single or multiple Diagnosis Code(s): --- Professional --- Z12.11, Encounter for screening for malignant neoplasm of colon --- Technical --- Z12.11, Encounter for screening for malignant neoplasm of colon CPT copyright 2021 [employer]. All rights reserved. The codes documented in this report are preliminary and upon assembler lay ups review may be revised to meet current compliance requirements. Attending Participation: I personally performed the entire procedure. Mason Haynes MD 08/11/2024 9:36:53 AM Number of Addenda: 0 Note Initiated On: 08/11/2024 7:34 AM documented in this encounter [facility] 08-11-2024 Note Formatting of this n ote might be different from the original. Granddaughter assisted patient with getting dressed. Patient ambulatory to/from BR with assist. Assisted into wheelchair and out to car with family and volunteer. [facility] 08-11-2024 Note Formatting of this n ote might be different from the original. Granddaughter assisted patient with getting dressed. Patient ambulatory to/from BR with assist. Assisted into wheelchair and out to car with family and volunteer. T [facility] 08-11-2024 Note Formatting of this n ote might be different from the original. Patient tolerating PO fluids and crackers. Discharge instructions reviewed with patient and granddaughter. Both verbalize understanding. T [facility] 08-11-2024 Note Formatting of this n ote might be different from the original. Patient tolerating PO fluids and crackers. Discharge instructions reviewed with patient and granddaughter. Both verbalize understanding. T [facility] 08-11-2024 Note Formatting of this n ote might be different from the original. Received patient from OR to PACU with [facility]. Patient sedated on room air. No respiratory distress noted. Monitor on, safety maintained. Rn and granddaughter bedside. [facility] 08-11-2024 Note Formatting of this n ote might be different from the original. Received patient from OR to PACU with [facility] BRE[facility]ER. Patient sedated on room air. No respiratory distress noted. Monitor on, safety maintained. Rn and granddaughter bedside. T [facility] 08-11-2024 History and physical note Images from the original note were not included. Endoscopy History and Physical HPI: Kamila Joseph is a 69 y.o. female who presents with need for screening, here for colonoscopy. Has had a prior scope which was reportedly normal. Denies any history of polyps. Denies family history of colon cancer. States no change in bowel habits or blood in stool. Has had a stroke. Accompanied by rosa isela who supplements history. PMHx: Past Medical History: Diagnosis Date Depression GERD (gastroesophageal reflux disease) Greater trochanteric bursitis of right hip 05/01/2022 Heat intolerance Hyperlipidemia Hypertension IBS (irritable bowel syndrome) Inflamed sebaceous cyst 05/23/2021 Insomnia Sleep apnea PSHx: Past Surgical History: Procedure Laterality Date COLONOSCOPY 5 years ago COLONOSCOPY N/A 08/11/2024 Performed by Mason Haynes MD at [facility] ENDOSCOPY TONSILLECTOMY (HISTORICAL) WRIST SURGERY PFMHx: Family History Problem Relation Name Age of Onset Breast cancer Mother's Sister Substance Abuse Mother Heart disease Father Heart disease Mother ALL: Allergies Allergen Reactions Vraylar [Cariprazine] Involuntary movement MEDS: @MEDCMED@ SOCIAL Hx: Social History Socioeconomic History Marital status: Spouse name: Not on file Number of children: Not on file Years of education: Not on file Highest education level: Not on file Occupational History Not on file Tobacco Use Smoking status: Never Smokeless tobacco: Never Vaping Use Vaping status: Never Used Substance and Sexual Activity Alcohol use: No Drug use: No Sexual activity: Defer Other Topics Concern Not on file Social History Narrative Not on file Social Drivers of Health Financial Resource Strain: Low Risk (12/30/2023) Overall Financial Resource Strain (CARDIA) Difficulty of Paying Living Expenses: Not hard at all Food Insecurity: No Food Insecurity (12/30/2023) Hunger Vital Sign Worried About Running Out of Food in the Last Year: Never true Ran Out of Food in the Last Year: Never true Transportation Needs: No Transportation Needs (12/30/2023) PRAPARE - Transportation Lack of Transportation (Medical): No Lack of Transportation (Non-Medical): No Physical Activity: Inactive (12/30/2023) Exercise Vital Sign Days of Exercise per Week: 0 days Minutes of Exercise per Session: 0 min Stress: Not on file Social Connections: Not on file Intimate Partner Violence: Not on file Housing Stability: Low Risk (12/30/2023) Housing Stability Vital Sign Unable to Pay for Housing in the Last Year: No Number of Places Lived in the Last Year: 1 Unstable Housing in the Last Year: No Review of Systems: I personally reviewed the patient intake form with the patient. The ROS is negative except for what is listed in HPI. Physical Examination: BP (!) 148/80 Pulse 70 Temp 37.2 C (99 F) (Temporal) Resp 16 Wt 185 lb (83.9 kg) SpO2 95% BMI 33.84 kg/m She stands @FLOWAMB(11)@ tall with a weight of @FLOWAMB(14)@ , resulting in a BMI of Body mass index is 33.84 kg/m .. General: The patient is awake, alert, and oriented, and is in no apparent distress. Normal affect. Head and Neck: Normocephalic and atraumatic. Normal ROM Cardiac: Regular rate and rhythm, patient on monitor Respiratory: No respiratory distress. Equal chest rise. Good inspiratory effort. Abdomen: soft, non-tender, non-distended, no masses or organomegaly Extremities: Ambulatory without assistance. Neurological: Intact sensation in 4 extremities, no focal deficits notes. Skin: No rashes or lesions noted. Warm and dry. Rectal: Not done. 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 female who presents with need for screening Will perform colonoscopy today Patient counseled on risks, benefits, and alternatives of treatment plan at length. Patient states an understanding and willingness to proceed with plan. [facility] Phone: 08-11-2024 History and physical note Images from the original note were not included. Endoscopy History and Physical HPI: Kamila Joseph is a 69 y.o. female who presents with need for screening, here for colonoscopy. Has had a prior scope which was reportedly normal. Denies any history of polyps. Denies family history of colon cancer. States no change in bowel habits or blood in stool. Has had a stroke. Accompanied by cleopatraaghter who supplements history. PMHx: Past Medical History: Diagnosis Date Depression GERD (gastroesophageal reflux disease) Greater trochanteric bursitis of right hip 05/01/2022 Heat intolerance Hyperlipidemia Hypertension IBS (irritable bowel syndrome) Inflamed sebaceous cyst 05/23/2021 Insomnia Sleep apnea PSHx: Past Surgical History: Procedure Laterality Date COLONOSCOPY 5 years ago COLONOSCOPY N/A 08/11/2024 Performed by Mason Haynes MD at [facility] ENDOSCOPY TONSILLECTOMY (HISTORICAL) WRIST SURGERY PFMHx: Family History Problem Relation Name Age of Onset Breast cancer Mother's Sister Substance Abuse Mother Heart disease Father Heart disease Mother ALL: Allergies Allergen Reactions Vraylar [Cariprazine] Involuntary movement MEDS: @MEDCMED@ SOCIAL Hx: Social History Socioeconomic History Marital status: Spouse name: Not on file Number of children: Not on file Years of education: Not on file Highest education level: Not on file Occupational History Not on file Tobacco Use Smoking status: Never Smokeless tobacco: Never Vaping Use Vaping status: Never Used Substance and Sexual Activity Alcohol use: No Drug use: No Sexual activity: Defer Other Topics Concern Not on file Social History Narrative Not on file Social Drivers of Health Financial Resource Strain: Low Risk (12/30/2023) Overall Financial Resource Strain (CARDIA) Difficulty of Paying Living Expenses: Not hard at all Food Insecurity: No Food Insecurity (12/30/2023) Hunger Vital Sign Worried About Running Out of Food in the Last Year: Never true Ran Out of Food in the Last Year: Never true Transportation Needs: No Transportation Needs (12/30/2023) PRAPARE - Transportation Lack of Transportation (Medical): No Lack of Transportation (Non-Medical): No Physical Activity: Inactive (12/30/2023) Exercise Vital Sign Days of Exercise per Week: 0 days Minutes of Exercise per Session: 0 min Stress: Not on file Social Connections: Not on file Intimate Partner Violence: Not on file Housing Stability: Low Risk (12/30/2023) Housing Stability Vital Sign Unable to Pay for Housing in the Last Year: No Number of Places Lived in the Last Year: 1 Unstable Housing in the Last Year: No Review of Systems: I personally reviewed the patient intake form with the patient. The ROS is negative except for what is listed in HPI. Physical Examination: BP (!) 148/80 Pulse 70 Temp 37.2 C (99 F) (Temporal) Resp 16 Wt 185 lb (83.9 kg) SpO2 95% BMI 33.84 kg/m She stands @FLOWAMB(11)@ tall with a weight of @FLOWAMB(14)@ , resulting in a BMI of Body mass index is 33.84 kg/m .. General: The patient is awake, alert, and oriented, and is in no apparent distress. Normal affect. Head and Neck: Normocephalic and atraumatic. Normal ROM Cardiac: Regular rate and rhythm, patient on monitor Respiratory: No respiratory distress. Equal chest rise. Good inspiratory effort. Abdomen: soft, non-tender, non-distended, no masses or organomegaly Extremities: Ambulatory without assistance. Neurological: Intact sensation in 4 extremities, no focal deficits notes. Skin: No rashes or lesions noted. Warm and dry. Rectal: Not done. 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 female who presents with need for screening Will perform colonoscopy today Patient counseled on risks, benefits, and alternatives of treatment plan at length. Patient states an understanding and willingness to proceed with plan. documented in this encounter [facility] 08-11-2024 Note Formatting of this n ote might be different from the original. [facility] Kamila Joseph Procedure Date: 08/11/2024 7:34 AM Gender: Female Date of : 1955 Age: 69 Admit Type: Outpatient Note Status: Finalized Endoscopist: Mason Haynes MD, Procedure: Colonoscopy Indications: Screening for colorectal malignant neoplasm Findings: A 6 mm polyp was found in the descending colon. The polyp was sessile. The polyp was removed with a cold snare. Resection and retrieval were complete. Verification of patient identification for the specimen was done. Estimated blood loss was minimal. A less than 5 mm polyp was found in the cecum. The polyp was sessile. The polyp was removed with a cold biopsy forceps. Resection and retrieval were complete. Verification of patient identification for the specimen was done. Estimated blood loss was minimal. The exam was otherwise without abnormality on direct and retroflexion views. Recommendation: - Patient has a contact number available for emergencies. The signs and symptoms of potential delayed complications were discussed with the patient. Return to normal activities tomorrow. Written discharge instructions were provided to the patient. - Resume previous diet. - Continue present medications. - Repeat colonoscopy in 5 years for surveillance based on pathology results. Referring MD: Juvencio Davila MD Medicines: Monitored Anesthesia Care Procedure: Pre-Anesthesia Assessment: - Prior to the procedure, a History and Physical was performed, and patient medications and allergies were reviewed. The patient's tolerance of previous anesthesia was also reviewed. The risks and benefits of the procedure and the sedation options and risks were discussed with the patient. All questions were answered, and informed consent was obtained. Prior Anticoagulants: The patient has taken no anticoagulant or antiplatelet agents except for aspirin. ASA Grade Assessment: III - A patient with severe systemic disease. After reviewing the risks and benefits, the patient was deemed in satisfactory condition to undergo the procedure. - The anesthesia plan was to use monitored anesthesia care (MAC). After I obtained informed consent, the scope was passed under direct vision. Throughout the procedure, the patient's blood pressure, pulse, and oxygen saturations were monitored continuously. The was introduced through the anus and advanced to the cecum, identified by appendiceal orifice and ileocecal valve. The colonoscopy was performed without difficulty. The patient tolerated the procedure well. The quality of the bowel preparation was good. The ileocecal valve, appendiceal orifice, and rectum were photographed. Complications: No immediate complications. Procedure Code(s): --- Professional --- 62640, Colonoscopy, flexible; with removal of tumor(s), polyp(s), or other lesion(s) by snare technique 48316, 59, Colonoscopy, flexible; with biopsy, single or multiple --- Technical --- 36556, Colonoscopy, flexible; with removal of tumor(s), polyp(s), or other lesion(s) by snare technique 78795, 59, Colonoscopy, flexible; with biopsy, single or multiple Diagnosis Code(s): --- Professional --- Z12.11, Encounter for screening for malignant neoplasm of colon --- Technical --- Z12.11, Encounter for screening for malignant neoplasm of colon CPT copyright 2021 [employer]. All rights reserved. The codes documented in this report are preliminary and upon assembler lay ups review may be revised to meet current compliance requirements. Attending Participation: I personally performed the entire procedure. Mason Haynes MD 08/11/2024 9:36:53 AM Number of Addenda: 0 Note Initiated On: 08/11/2024 7:34 AM [facility] 08-11-2024 Note Formatting of this n ote might be different from the original. [facility]: Kamila Joseph Procedure Date: 08/11/2024 7:34 AM Gender: Female Date of : 1955 Age: 69 Admit Type: Outpatient Note Status: Finalized Endoscopist: Mason Haynes MD, Procedure: Colonoscopy Indications: Screening for colorectal malignant neoplasm Findings: A 6 mm polyp was found in the descending colon. The polyp was sessile. The polyp was removed with a cold snare. Resection and retrieval were complete. Verification of patient identification for the specimen was done. Estimated blood loss was minimal. A less than 5 mm polyp was found in the cecum. The polyp was sessile. The polyp was removed with a cold biopsy forceps. Resection and retrieval were complete. Verification of patient identification for the specimen was done. Estimated blood loss was minimal. The exam was otherwise without abnormality on direct and retroflexion views. Recommendation: - Patient has a contact number available for emergencies. The signs and symptoms of potential delayed complications were discussed with the patient. Return to normal activities tomorrow. Written discharge instructions were provided to the patient. - Resume previous diet. - Continue present medications. - Repeat colonoscopy in 5 years for surveillance based on pathology results. Referring MD: Juvencio Davila MD Medicines: Monitored Anesthesia Care Procedure: Pre-Anesthesia Assessment: - Prior to the procedure, a History and Physical was performed, and patient medications and allergies were reviewed. The patient's tolerance of previous anesthesia was also reviewed. The risks and benefits of the procedure and the sedation options and risks were discussed with the patient. All questions were answered, and informed consent was obtained. Prior Anticoagulants: The patient has taken no anticoagulant or antiplatelet agents except for aspirin. ASA Grade Assessment: III - A patient with severe systemic disease. After reviewing the risks and benefits, the patient was deemed in satisfactory condition to undergo the procedure. - The anesthesia plan was to use monitored anesthesia care (MAC). After I obtained informed consent, the scope was passed under direct vision. Throughout the procedure, the patient's blood pressure, pulse, and oxygen saturations were monitored continuously. The was introduced through the anus and advanced to the cecum, identified by appendiceal orifice and ileocecal valve. The colonoscopy was performed without difficulty. The patient tolerated the procedure well. The quality of the bowel preparation was good. The ileocecal valve, appendiceal orifice, and rectum were photographed. Complications: No immediate complications. Procedure Code(s): --- Professional --- 34182, Colonoscopy, flexible; with removal of tumor(s), polyp(s), or other lesion(s) by snare technique 13128, 59, Colonoscopy, flexible; with biopsy, single or multiple --- Technical --- 66939, Colonoscopy, flexible; with removal of tumor(s), polyp(s), or other lesion(s) by snare technique 20127, 59, Colonoscopy, flexible; with biopsy, single or multiple Diagnosis Code(s): --- Professional --- Z12.11, Encounter for screening for malignant neoplasm of colon --- Technical --- Z12.11, Encounter for screening for malignant neoplasm of colon CPT copyright 2021 [employer]. All rights reserved. The codes documented in this report are preliminary and upon assembler lay ups review may be revised to meet current compliance requirements. Attending Participation: I personally performed the entire procedure. Mason Haynes MD 08/11/2024 9:36:53 AM Number of Addenda: 0 Note Initiated On: 08/11/2024 7:34 AM [facility] 07-28-2024 Telephone encounter Note Our office spoke with the patient's [facility] . The patient is scheduled with Dr. Haynes on 08/11/2024 with arrival time of 8:00 at [facility]. Verified that the patient has the prep information and all questions were answered. [facility] 07-28-2024 Miscellaneous Notes Our office spoke with the patient's daughter to remind Kamila of her colonoscopy appointment . The patient is scheduled with Dr. Haynes on 08/11/2024 with arrival time of 8:00 at [facility]. Verified that the patient has the prep information and all questions were answered. documented in this encounter [facility] 07-14-2024 Telephone encounter Note Screening Questionnaire Do you have a Congestive Heart Failure ? no Do you have a pacemaker or defibrillator? no Have you had a Heart Attack in last 6 months? no Have you had any cardiac stents in last 12 months? no Have you had chest pain (angina)? no Are you using any blood thinner medication? Aspirin 81 Have you been told you have abnormal EKG or abnormal echocardiogram or heart rhythm? couple of yrs ago due to sepsis Are you using Oxygen at home? If yes, how many liters of oxygen? no Do you have COPD (Chronic Obstructive Pulmonary Disease)? no Do you have Asthma? If yes, is it mild? no 11. Do you have Sleep Apnea? Do you use a cpap? Yes, uses a cpap Have you been told you have malignant hyperthermia or had any other reaction to anesthesia? no What is your height and weight? 5'2 185 lbs BMI- 33.47 Do you have Diabetes? If yes, what medications do you take and what is your latest A1C level? pre A1C- Are you Immunocompromised (have a medical condition that puts you at increased risk of infection)? no Do you have myopathies (muscle diseases) ? no Do you have liver cirrhosis? no Are you ? Do you receive dialysis? no Do you have any cognitive impairment like dementia; traumatic brain injury, or from stroke? stroke- 2014 no memory issues Additional questions to determine diagnostic or screening, Have you done a home stool test like the FIT or Cologuard that had a positive result? no Do you have abdominal pain? no Have you had any unexplained weight loss more than 20 lbs? no Have you had Blood in your stool? no Have you been told you have Crohn's Disease or ulcerative colitis (inflammatory bowel disease)? no 6. Do you have anemia (low blood count)? no 7. Have you had a colonoscopy that found colon polyps? If yes, when was your last colonoscopy? no T [facility] 07-14-2024 Miscellaneous Notes Screening Questionnaire Do you have a Congestive Heart Failure ? no Do you have a pacemaker or defibrillator? no Have you had a Heart Attack in last 6 months? no Have you had any cardiac stents in last 12 months? no Have you had chest pain (angina)? no Are you using any blood thinner medication? Aspirin 81 Have you been told you have abnormal EKG or abnormal echocardiogram or heart rhythm? couple of yrs ago due to sepsis Are you using Oxygen at home? If yes, how many liters of oxygen? no Do you have COPD (Chronic Obstructive Pulmonary Disease)? no Do you have Asthma? If yes, is it mild? no 11. Do you have Sleep Apnea? Do you use a cpap? Yes, uses a cpap Have you been told you have malignant hyperthermia or had any other reaction to anesthesia? no What is your height and weight? 5'2 185 lbs BMI- 33.47 Do you have Diabetes? If yes, what medications do you take and what is your latest A1C level? pre A1C- Are you Immunocompromised (have a medical condition that puts you at increased risk of infection)? no Do you have myopathies (muscle diseases) ? no Do you have liver cirrhosis? no Are you ? Do you receive dialysis? no Do you have any cognitive impairment like dementia; traumatic brain injury, or from stroke? stroke- 2014 no memory issues Additional questions to determine diagnostic or screening, Have you done a home stool test like the FIT or Cologuard that had a positive result? no Do you have abdominal pain? no Have you had any unexplained weight loss more than 20 lbs? no Have you had Blood in your stool? no Have you been told you have Crohn's Disease or ulcerative colitis (inflammatory bowel disease)? no 6. Do you have anemia (low blood count)? no 7. Have you had a colonoscopy that found colon polyps? If yes, when was your last colonoscopy? no documented in this encounter [facility] 07-08-2024 Evaluation + Plan note Associated Problem(s): Skin lesion Patient has had several lesions of concern, we will have her see dermatology for full skin examination. [facility] 07-08-2024 Evaluation + Plan note Associated Problem(s): Anxiety Follow-up with psychiatry as directed continue clonazepam 0.25 mg twice daily if needed and BuSpar 15 mg twice daily [facility] 07-08-2024 Miscellaneous Notes Associated Problem(s): Skin lesion Patient has had several lesions of concern, we will have her see dermatology for full skin examination. Associated Problem(s): Anxiety Follow-up with psychiatry as directed continue clonazepam 0.25 mg twice daily if needed and BuSpar 15 mg twice daily Associated Problem(s): Recurrent major depressive disorder, in full remission (HCC) Follow-up with psychiatry as directed Associated Problem(s): Essential hypertension Controlled. Blood pressure 132/76, continue metoprolol 25 mg daily and lisinopril 2.5 mg daily Associated Problem(s): Hyperlipidemia LDL goal <100 Continue simvastatin 40 mg daily Associated Problem(s): Urinary tract infection symptoms Trace leuks only. Will send for urine culture. Most likely left sided low back pain muscular documented in this encounter [facility] 07-08-2024 Evaluation + Plan note Associated Problem(s): Recurrent major depressive disorder, in full remission (HCC) Follow-up with psychiatry as directed [facility] 07-08-2024 Evaluation + Plan note Associated Problem(s): Essential hypertension Controlled. Blood pressure 132/76, continue metoprolol 25 mg daily and lisinopril 2.5 mg daily [facility] 07-08-2024 Evaluation + Plan note Associated Problem(s): Hyperlipidemia LDL goal <100 Continue simvastatin 40 mg daily [facility] 07-08-2024 Evaluation + Plan note Associated Problem(s): Urinary tract infection symptoms Trace leuks only. Will send for urine culture. Most likely left sided low back pain muscular [facility] 07-08-2024 History of Presen t illness Narrative Health Maintenance Addressed with Patient at Visit: Health Maintenance Due Topic Bone Density Scan-ordered on 12/30/23 Derm Melanoma Skin Check-pended Mammogram-ordered on 12/30/23 Diabetes Screening-12/30/23 Echocardiogram- cardio referral? COVID-19 Vaccine-declined Influenza Vaccine-declined Depression Monitoring-completed Colorectal Cancer Screening- color guard Patient identified by name and date of . Urine specimen cup labeled with patient name and date of . Urine cup and wipe given to patient. Clean catch urine collected from patient. POCT Urine ordered and signed by provider. POCT urine results entered and were sent to provider. Urine culture was ordered and signed by provider. Urine culture was obtained and specimen tube was labeled with patients name and date of , requisition was printed off, verified patient information, then given to [facility]. Images from the original note were not included. 07/08/2024 Kamila Joseph (: 1955) is a 68 y.o. female , Established patient, here for evaluation of the following chief complaint(s): Medication Check and Cpap ASSESSMENT/PLAN: 1. Acute left-sided low back pain without sciatica - POCT urinalysis dipstick manually resulted - Urine culture (clean catch) 2. Skin lesion Assessment & Plan: Patient has had several lesions of concern, we will have her see dermatology for full skin examination. Orders: - [facility] Dermatology 3. Colon cancer screening - [facility] General Surgery - Terry Bui MD 4. Left flank pain - POCT urinalysis dipstick manually resulted - Urine culture (clean catch) 5. TERESA on CPAP 6. Anxiety Assessment & Plan: Follow-up with psychiatry as directed continue clonazepam 0.25 mg twice daily if needed and BuSpar 15 mg twice daily 7. Recurrent major depressive disorder, in full remission (HCC) Assessment & Plan: Follow-up with psychiatry as directed 8. Essential hypertension Assessment & Plan: Controlled. Blood pressure 132/76, continue metoprolol 25 mg daily and lisinopril 2.5 mg daily 9. Hyperlipidemia LDL goal <100 Assessment & Plan: Continue simvastatin 40 mg daily 10. Urinary tract infection symptoms Assessment & Plan: Trace leuks only. Will send for urine culture. Most likely left sided low back pain muscular Follow up for with primary care provider as scheduled. SUBJECTIVE/OBJECTIVE: [facility] - Kamila Joseph (: 1955) is a 68 y.o. female , Established patient, here for the evaluation of the following chief complaint(s): Medication Check and Cpap Psychiatry- took off effexor and started on prozac. Recent increased to 40 mg. Still taking buspar twice daily. Is still taking clonazepam 1/2 tab twice daily. Will see them again sep 07. Neurologist- henry- will be getting PT twice weekly and then will be back to see him in sep 14 TD-symptoms resolved with medication. ENT- [facility] in [place] for cerumen prob. TERESA-wears CPAP at bedtime was good relief of symptoms. Left low back pain-reports having [place]. Denies any significant changes or worsening. Would like her urine checked for possible bacterial infection, denies any urinary symptoms. No weakness numbness or tingling of lower extremities. Prior to Admission medications Medication Sig Start Date End Date Taking? Authorizing Provider Ascorbic Acid (vitamin C) 1000 MG tablet Take 1,000 mg by mouth daily. 08/06/23 Yes Historical Provider, aspirin 81 MG EC tablet Take 81 mg by mouth daily. Yes Historical Provider, busPIRone (Buspar) 15 MG tablet TAKE 1 TABLET BY MOUTH TWICE A DAY 03/05/24 Yes Shyla Bustillo APRN - [employer]IST FLUoxetine (PROzac) 40 MG capsule Take 40 mg by mouth daily. Yes Historical Provider, folic acid (Folvite) 1 MG tablet TAKE 1 TABLET BY MOUTH EVERY DAY 02/10/24 Yes SOO Grant CNP lisinopril 2.5 MG tablet Take 2.5 mg by mouth daily. 08/13/22 Yes Historical Provider, methenamine hippurate (Hiprex) 1 g tablet 05/09/23 Yes Historical Provider, metoprolol succinate XL (Toprol-XL) 25 MG 24 hr tablet Take 1 tablet (25 mg) by mouth daily. 03/09/24 Yes Juvencio Davila MD Multiple Vitamin (multivitamin) tablet Take 1 tablet by mouth daily. Yes Historical Provider, simvastatin (Zocor) 40 MG tablet TAKE 1 TABLET BY MOUTH EVERY DAY NIGHTLY 07/06/24 Yes Juvencio Davila MD valbenazine tosylate (Ingrezza) 80 MG capsule Take 1 capsule (80 mg) by mouth daily. 10/25/23 10/24/24 Yes SOO Mtz CNP clonazePAM (KlonoPIN) 0.5 MG tablet Take 0.5 tablets (0.25 mg) by mouth 2 times daily. 10/16/23 04/02/24 SOO Grant CNP FLUoxetine (PROzac) 20 MG capsule Take 20 mg by mouth daily. 05/30/24 07/08/24 Historical Provider, simvastatin (Zocor) 40 MG tablet Take 1 tablet (40 mg) by mouth Nightly. 12/30/23 07/06/24 SOO Grant CNP venlafaxine XR (Effexor XR) 150 MG 24 hr capsule Take 150 mg by mouth daily. Do not crush or chew. Take with 150 mg to make 225 mg daily 07/02/24 Andrew Argueta DO Review of Systems Constitutional: Negative. Respiratory: Negative. Cardiovascular: Negative. Gastrointestinal: Negative. Negative for abdominal pain, constipation, diarrhea and nausea. Genitourinary: Negative for difficulty urinating. Neurological: Negative for dizziness, light-headedness and headaches. Psychiatric/Behavioral: Negative for agitation, behavioral problems, dysphoric mood and suicidal ideas. The patient is nervous/anxious. cpap Vitals: 07/08/24 1113 BP: 132/76 Pulse: 58 Resp: 14 Temp: 37 C (98.6 F) TempSrc: Infrared SpO2: 97% Weight: 183 lb (83 kg) Physical Exam Constitutional: General: She is not in acute distress. Appearance: Normal appearance. She is not ill-appearing. HENT: Head: Normocephalic and atraumatic. Mouth/Throat: Mouth: Mucous membranes are moist. Pharynx: Oropharynx is clear. No posterior oropharyngeal erythema. Eyes: Conjunctiva/sclera: Conjunctivae normal. Cardiovascular: Rate and Rhythm: Normal rate and regular rhythm. Abdominal: Tenderness: There is no right CVA tenderness or left CVA tenderness. Musculoskeletal: Back: Comments: Gait steady, able to get on exam table without assistance Skin: General: Skin is warm and dry. Neurological: Mental Status: She is alert and oriented to person, place, and time. An electronic signature was used to authenticate this note. SOO Hodge CNP 07/08/2024 5:24 PM documented in this encounter [facility] 07-08-2024 Instructions SOO Grant CNP - 07/08/2024 11:20 AM EDT Please call Central Scheduling at [phone] to schedule your outpatient test (dexa scan) Please call to schedule your Mammogram at [phone] documented in this encounter [facility] 07-06-2024 Telephone encounter Note Prescription Request: Last medication check: 06/27/23 Last physical exam: 12/30/23 Next scheduled appointment: 07/08/24 Last date of refill on this medication 12/30/23 [facility] 07-06-2024 Miscellaneous Notes Prescription Request: Last medication check: 06/27/23 Last physical exam: 12/30/23 Next scheduled appointment: 07/08/24 Last date of refill on this medication 12/30/23 documented in this encounter [facility] [employer] 07-02-2024 History of Presen t illness Narrative Department of Neurological Sciences Visit Note CHIEF COMPLAINT: Chief Complaint Patient presents with Follow-up Orofacial dyskinesia Main diagnoses tardative dyskinesia HISTORY OF PRESENT ILLNESS: The patient is a 68 y.o. female today presents to the Neurology clinic with history of tardativa dyskinesia treated with Ingrezza. Today patient presented to the neurology clinic for a follow-up visit. Patient reports that her oral dyskinesias appeared to be very well-controlled. Patient is no longer having any ulcers in her mouth. Appears discontinuation medication as well as treatment with Ingrezza have helped patient tremendously. Today patient presented to the neurology clinic accompanied by her daughter. Patient no longer have oral dyskinesia but now patient appeared to have parkinsonism. Patient had developed decreased blinking, decreased facial expression. Patient also had developed hypophonia and rigidity in both upper extremities. Patient denied any other neurological symptoms. At the present time patient is not taking any medication that can cause dyskinesia. Secundary diagnoses: Parkinsonism. Medications: Current Outpatient Medications Medication Sig Dispense Refill Ascorbic Acid (vitamin C) 1000 MG tablet Take 1,000 mg by mouth daily. aspirin 81 MG EC tablet Take 81 mg by mouth daily. busPIRone (Buspar) 15 MG tablet TAKE 1 TABLET BY MOUTH TWICE A DAY 180 tablet 1 FLUoxetine (PROzac) 40 MG capsule Take 40 mg by mouth daily. folic acid (Folvite) 1 MG tablet TAKE 1 TABLET BY MOUTH EVERY DAY 90 tablet 1 lisinopril 2.5 MG tablet Take 2.5 mg by mouth daily. methenamine hippurate (Hiprex) 1 g tablet metoprolol succinate XL (Toprol-XL) 25 MG 24 hr tablet Take 1 tablet (25 mg) by mouth daily. 90 tablet 1 Multiple Vitamin (multivitamin) tablet Take 1 tablet by mouth daily. simvastatin (Zocor) 40 MG tablet Take 1 tablet (40 mg) by mouth Nightly. 90 tablet 1 valbenazine tosylate (Ingrezza) 80 MG capsule Take 1 capsule (80 mg) by mouth daily. 30 capsule 11 clonazePAM (KlonoPIN) 0.5 MG tablet Take 0.5 tablets (0.25 mg) by mouth 2 times daily. 30 tablet 0 FLUoxetine (PROzac) 20 MG capsule Take 20 mg by mouth daily. No current facility-administered medications for this visit. Allergies: Vraylar [cariprazine] Social History: Social History Socioeconomic History Marital status: Spouse name: Not on file Number of children: Not on file Years of education: Not on file Highest education level: Not on file Occupational History Not on file Tobacco Use Smoking status: Never Smokeless tobacco: Never Vaping Use Vaping status: Never Used Substance and Sexual Activity Alcohol use: No Drug use: No Sexual activity: Defer Other Topics Concern Not on file Social History Narrative Not on file Social Determinants of Health Financial Resource Strain: Low Risk (12/30/2023) Overall Financial Resource Strain (CARDIA) Difficulty of Paying Living Expenses: Not hard at all Food Insecurity: No Food Insecurity (12/30/2023) Hunger Vital Sign Worried About Running Out of Food in the Last Year: Never true Ran Out of Food in the Last Year: Never true Transportation Needs: No Transportation Needs (12/30/2023) PRAPARE - Transportation Lack of Transportation (Medical): No Lack of Transportation (Non-Medical): No Physical Activity: Inactive (12/30/2023) Exercise Vital Sign Days of Exercise per Week: 0 days Minutes of Exercise per Session: 0 min Stress: Not on file Social Connections: Not on file Intimate Partner Violence: Not on file Housing Stability: Low Risk (12/30/2023) Housing Stability Vital Sign Unable to Pay for Housing in the Last Year: No Number of Places Lived in the Last Year: 1 Unstable Housing in the Last Year: No Family History: Family History Problem Relation Name Age of Onset Breast cancer Mother's Sister Substance Abuse Mother Heart disease Father Heart disease Mother REVIEW OF SYSTEMS: Review of Systems Constitutional: Negative for activity change, appetite change and chills. HENT: Negative for ear pain, facial swelling, mouth sores, rhinorrhea, sinus pain and tinnitus. Eyes: Negative for photophobia, pain and visual disturbance. Respiratory: Negative for cough and chest tightness. Gastrointestinal: Negative for abdominal pain, nausea and vomiting. Endocrine: Negative for cold intolerance and heat intolerance. Genitourinary: Negative for difficulty urinating. Musculoskeletal: Positive for arthralgias, back pain and neck pain. Allergic/Immunologic: Negative for food allergies. Neurological: Positive for tremors. Negative for dizziness, syncope, speech difficulty, weakness and numbness. Hematological: Does not bruise/bleed easily. Psychiatric/Behavioral: Positive for sleep disturbance. Negative for confusion, decreased concentration and hallucinations. The patient is not nervous/anxious. All other systems reviewed and are negative. PHYSICAL EXAM: Vitals: BP 124/68 Pulse 60 Ht 5' 2 (1.575 m) Wt 168 lb (76.2 kg) BMI 30.73 kg/m Physical Exam Constitutional: Appearance: Normal appearance. HENT: Head: Normocephalic and atraumatic. Nose: Nose normal. Mouth/Throat: Mouth: Mucous membranes are moist. Pharynx: Oropharynx is clear. Eyes: General: Vision grossly intact. Gaze aligned appropriately. Extraocular Movements: Extraocular movements intact. Conjunctiva/sclera: Conjunctivae normal. Pupils: Pupils are equal, round, and reactive to light. Neck: Trachea: Trachea and phonation normal. Cardiovascular: Rate and Rhythm: Normal rate and regular rhythm. Pulses: Normal pulses. Heart sounds: Normal heart sounds. Pulmonary: Effort: Pulmonary effort is normal. Breath sounds: Normal breath sounds. Abdominal: General: Abdomen is flat. Bowel sounds are normal. Palpations: Abdomen is soft. Musculoskeletal: General: Normal range of motion. Cervical back: Normal range of motion and neck supple. Skin: General: Skin is warm and dry. Neurological: General: No focal deficit present. Mental Status: She is alert and oriented to person, place, and time. Mental status is at baseline. Cranial Nerves: Cranial nerve deficit and dysarthria present. Motor: Tremor and abnormal muscle tone present. Gait: Gait abnormal. Deep Tendon Reflexes: Reflexes are normal and symmetric. Reflex Scores: Tricep reflexes are 2+ on the right side and 2+ on the left side. Bicep reflexes are 2+ on the right side and 2+ on the left side. Brachioradialis reflexes are 2+ on the right side and 2+ on the left side. Patellar reflexes are 2+ on the right side and 2+ on the left side. Achilles reflexes are 2+ on the right side and 2+ on the left side. Comments: Clinical exam reveals the present of decreased blinking as well as facial expression. Patient had developed also hypophonia. Patient have rigidity in both upper extremities with positive cogwheeling. Rapid alternating movements have decreased. Postural reflexes are impaired. Gait patient have a shuffling gait. Psychiatric: Attention and Perception: Attention normal. Mood and Affect: Mood normal. Speech: Speech normal. Behavior: Behavior normal. Behavior is cooperative. Thought Content: Thought content normal. Cognition and Memory: Cognition normal. Judgment: Judgment normal. Impression: Diagnosis Plan 1. Parkinson's disease without dyskinesia or fluctuating manifestations (HCC) External referral to Physical Therapy 2. Orofacial dyskinesia Plan: 1. I offered patient to start Sinemet to see if we can improve lesion parkinsonian symptoms. Patient is advised she may develop again orofacial dyskinesia. 2. We are going to refer patient to physical therapy for gait training as well as postural reflexes. If patient does not improve in the next 2 to 3 months we will start patient on carbidopa levodopa. 3. Patient will return to the neurology clinic in 3 months. Thank thank you Jie Miranda MD documented in this encounter [facility] 04-02-2024 History of Presen t illness Narrative [facility] Primary Care Physician: Juvencio Davila MD Chief Complaint: Chief Complaint Patient presents with Follow-up Tardive Dyskinesia, Dementia Concerns with unsteady gait, and tremor is R hand Main Diagnosis: Diagnosis Plan 1. Tardive dyskinesia History: given by the patient and EMR. EMR was personally reviewed prior to today's visit and included review of prior notes and intermediate communications. HPI: Ms. Kamila Joseph is a 68 y.o. female who is seen in the NEUROLOGY CLINIC of [facility] for complaint of tardive dyskinesia. She is present with her Daughter today for her visit. Patient was apparently taking Risperdone. She was placed on Vraylar and taken off the Risperdone and this is when her dyskinesias began. Patient developed repetitive movements affecting her face mouth and tongue. This is affecting both swallowing as well as patient speech. Recently patient was started on Cogentin has a treatment patient tolerated the dyskinesis. This has caused severe dry mouth and now patient has developed ulcers in the danny as well as in the oral mucosa. This began trials of several other medications including cogentin, geodon, and then back to risperdone. Currently today patient is not on risperdone. She was started on a Cogentin titration and has had about 20% improvement with facial dyskinesias but unfortunately she had a Below painful ulcers in the mouth and tongue. --Today she has severe mouth dyskinesia's. She is suffers from dry mouth and has sores from her mouth being so dry. --She is positive for hypertension, insomnia, depression, sleep apnea, IBS, hyperlipidemia, GERD. --There is family history of substance abuse, heart disease, and breast cancer. --Patient is a non smoker. She does not drink alcohol. The last visit was 12/06/[address] Miranda where the patient was continued on Ingrezza 80 mg daily with improvement in TD symptoms. INTERVAL HISTORY: Today, the patient returns for follow up of TD control on current medication regimen. The patient is accompanied by her daughter who helps provide history. The patient states Ingrezza continues to help with symptoms of TD. She reports occasional increased mouth movements that are overall well controlled. The patient denies side effects from medication. The patient states occasional tremor in the right hand. She states tremor occurs when using her hands. She is unsure if it happens more when she is tired and is unsure how often the tremor occurs. She reports a family history of tremor. Advised the patient to keep record of how often tremor occurs and if it worsens when tired. The patient did not exhibit tremor during the visit today. The patient also states imbalance for the last 6 months. Denies dizziness. She states she will be walking and have to hold on to something to keep from falling. The patient expresses concern for Parkinson's as she has a family history. The patient does not have a shuffling gait, decreased eye blink or decreased fascial expression. Discussed PT order for evaluation and treatment for gait and unsteadiness which the patient agreed to attending. The patient denies any other new neurological deficits. Past Medical History: Diagnosis Date Depression GERD (gastroesophageal reflux disease) Heat intolerance Hyperlipidemia Hypertension IBS (irritable bowel syndrome) Inflamed sebaceous cyst 05/23/2021 Insomnia Sleep apnea Past Surgical History: Procedure Laterality Date COLONOSCOPY 5 years ago TONSILLECTOMY (HISTORICAL) WRIST SURGERY Allergies Allergen Reactions Vraylar [Cariprazine] Involuntary movement @HOMEMEDS@ Current Outpatient Medications Medication Sig Dispense Refill Ascorbic Acid (vitamin C) 1000 MG tablet Take 1,000 mg by mouth daily. aspirin 81 MG EC tablet Take 81 mg by mouth daily. busPIRone (Buspar) 15 MG tablet TAKE 1 TABLET BY MOUTH TWICE A DAY 180 tablet 1 clonazePAM (KlonoPIN) 0.5 MG tablet Take 0.5 tablets (0.25 mg) by mouth 2 times daily. 30 tablet 0 folic acid (Folvite) 1 MG tablet TAKE 1 TABLET BY MOUTH EVERY DAY 90 tablet 1 lisinopril 2.5 MG tablet Take 2.5 mg by mouth daily. methenamine hippurate (Hiprex) 1 g tablet metoprolol succinate XL (Toprol-XL) 25 MG 24 hr tablet Take 1 tablet (25 mg) by mouth daily. 90 tablet 1 Multiple Vitamin (multivitamin) tablet Take 1 tablet by mouth daily. simvastatin (Zocor) 40 MG tablet Take 1 tablet (40 mg) by mouth Nightly. 90 tablet 1 valbenazine tosylate (Ingrezza) 80 MG capsule Take 1 capsule (80 mg) by mouth daily. 30 capsule 11 venlafaxine XR (Effexor XR) 150 MG 24 hr capsule Take 150 mg by mouth daily. Do not crush or chew. Take with 150 mg to make 225 mg daily venlafaxine XR (Effexor XR) 75 MG 24 hr capsule Take 75 mg by mouth daily. Do not crush or chew.take with 150 mg to make 225 mg daily No current facility-administered medications for this visit. Family History Problem Relation Name Age of Onset Breast cancer Mother's Sister Substance Abuse Mother Heart disease Father Heart disease Mother Social Connections: Not on file REVIEW OF SYSTEMS: Review of Systems Constitutional: Negative for activity change, appetite change and chills. HENT: Negative for ear pain, facial swelling, mouth sores, rhinorrhea, sinus pain and tinnitus. Eyes: Negative for photophobia, pain and visual disturbance. Respiratory: Negative for cough and chest tightness. Gastrointestinal: Negative for abdominal pain, nausea and vomiting. Endocrine: Negative for cold intolerance and heat intolerance. Genitourinary: Negative for difficulty urinating. Musculoskeletal: Positive for arthralgias, back pain and neck pain. Allergic/Immunologic: Negative for food allergies. Neurological: Positive for tremors. Negative for dizziness, syncope, speech difficulty, weakness and numbness. Hematological: Does not bruise/bleed easily. Psychiatric/Behavioral: Positive for sleep disturbance. Negative for confusion, decreased concentration and hallucinations. The patient is not nervous/anxious. All other systems reviewed and are negative. PHYSICAL EXAM: BP 127/73 (BP Location: Right arm) Pulse 66 Temp 36.6 C (97.9 F) Wt 168 lb (76.2 kg) BMI 30.73 kg/m Physical Exam Vitals and nursing note reviewed. Constitutional: Appearance: Normal appearance. She is normal weight. HENT: Head: Normocephalic. Nose: Nose normal. Eyes: Extraocular Movements: Extraocular movements intact. Conjunctiva/sclera: Conjunctivae normal. Pupils: Pupils are equal, round, and reactive to light. Pulmonary: Effort: Pulmonary effort is normal. Musculoskeletal: General: Normal range of motion. Cervical back: Normal range of motion. Skin: General: Skin is warm and dry. Neurological: General: No focal deficit present. Mental Status: She is alert and oriented to person, place, and time. Mental status is at baseline. Psychiatric: Mood and Affect: Mood normal. Behavior: Behavior normal. Thought Content: Thought content normal. Judgment: Judgment normal. Neuro: Alert and oriented x4. Language: fluent and prosodic. Content and vocabulary reasonable for age and education level. Attention and Concentration intact Fund of knowledge: Knowledge of current events demonstrated. CN II: PERRLA CN III, IV, : EOM intact, no end-gaze nystagmus CN VII: smiling and tight eye closure symmetric CN VIII: grossly intact Pronator drift absent, no tremor Coordination: Finger to nose without tremor Gait: routine gait steady ASSESSMENT: 68 y.o. female with past medical history as above who presents for follow up evaluation of TD with improved control on current medication regimen. IMPRESSION: Diagnosis Plan 1. Tardive dyskinesia 2. Gait disorder External referral to Physical Therapy PLAN: 1. Patient will continue Ingrezza at the same doses for the treatment of TD. 2. Order placed for PT for evaluation and treatment of gait imbalance. 3. Return to neurology clinic in 3 months, sooner if needed. I hope that all of your questions and concerns were addressed during today's visit. Please don't hesitate to call the Department of Neurology at [phone] for any further concerns. Sincerely, SOO Handley CNP The above diagnosis and management plan were discussed at length with the patient and patient's daughter who voiced understanding and agreed. Electronically signed by: SOO Handley CNP 04/02/2024 1:49 PM documented in this encounter [facility] 03-23-2024 Evaluation + Plan note Associated Problem(s): Urinary tract infection symptoms UA trace leuks only. Will send for culture. Increase fluids. No CVA tenderness. Patient advised that she should not take medication that is not prescribed for her. Further plan of care pending culture results. [facility] 03-23-2024 Miscellaneous Notes Associated Problem(s): Urinary tract infection symptoms UA trace leuks only. Will send for culture. Increase fluids. No CVA tenderness. Patient advised that she should not take medication that is not prescribed for her. Further plan of care pending culture results. documented in this encounter [facility] 03-23-2024 History of Presen t illness Narrative Patient verified by last name and . Images from the original note were not included. 03/23/2024 Kamila Joseph (: 1955) is a 68 y.o. female , Established patient, here for evaluation of the following chief complaint(s): Flank Pain (Been going on for about 2 weeks. Did take Bactrim and Pyridium finished today ) ASSESSMENT/PLAN: 1. Urinary tract infection symptoms Assessment & Plan: UA trace leuks only. Will send for culture. Increase fluids. No CVA tenderness. Patient advised that she should not take medication that is not prescribed for her. Further plan of care pending culture results. Orders: - POCT urinalysis dipstick manually resulted - Urine culture (clean catch) Follow up for as directed pending test results. SUBJECTIVE/OBJECTIVE: HPI - Kamila Joseph (: 1955) is a 68 y.o. female , Established patient, here for the evaluation of the following chief complaint(s): Flank Pain (Been going on for about 2 weeks. Did take Bactrim and Pyridium finished today ) Couple weeks ago, states she took a urine test at home, - + at that time, then 2 one last weekend- still showed +. Took bactrim and pyridium ( 7 day script) that was prescribed for someone else. Completed the rx today Still with some lower back pain and suprapubic pain, denies any dysuria, some chills, no fever. States that when she gets urinary tract infections she only gets low back pain and usually needs a different antibiotic than what she started with. Prior to Admission medications Medication Sig Start Date End Date Taking? Authorizing Provider Ascorbic Acid (vitamin C) 1000 MG tablet Take 1,000 mg by mouth daily. 08/06/23 Yes Historical Provider, aspirin 81 MG EC tablet Take 81 mg by mouth daily. Yes Historical Provider, busPIRone (Buspar) 15 MG tablet TAKE 1 TABLET BY MOUTH TWICE A DAY 03/05/24 Yes Shyla Bustillo APRN - [facility] clonazePAM (KlonoPIN) 0.5 MG tablet Take 0.5 tablets (0.25 mg) by mouth 2 times daily. 10/16/23 03/23/24 Yes Adriane Hubbard APRN - [facility] folic acid (Folvite) 1 MG tablet TAKE 1 TABLET BY MOUTH EVERY DAY 02/10/24 Yes Adriane Hubbard APRN - [facility] lisinopril 2.5 MG tablet Take 2.5 mg by mouth daily. 08/13/22 Yes Historical Provider, methenamine hippurate (Hiprex) 1 g tablet 05/09/23 Yes Historical Provider, metoprolol succinate XL (Toprol-XL) 25 MG 24 hr tablet Take 1 tablet (25 mg) by mouth daily. 03/09/24 Yes Juvencio Davila MD Multiple Vitamin (multivitamin) tablet Take 1 tablet by mouth daily. Yes Historical Provider, simvastatin (Zocor) 40 MG tablet Take 1 tablet (40 mg) by mouth Nightly. 12/30/23 Yes SOO Grant CNP valbenazine tosylate (Ingrezza) 80 MG capsule Take 1 capsule (80 mg) by mouth daily. 10/25/23 10/24/24 Yes SOO Mtz CNP venlafaxine XR (Effexor XR) 150 MG 24 hr capsule Take 150 mg by mouth daily. Do not crush or chew. Take with 150 mg to make 225 mg daily Yes Andrew Argueta DO venlafaxine XR (Effexor XR) 75 MG 24 hr capsule Take 75 mg by mouth daily. Do not crush or chew.take with 150 mg to make 225 mg daily Yes Andrew Argueta DO Review of Systems Constitutional: Positive for chills. Negative for activity change, fatigue and fever. Respiratory: Negative. Cardiovascular: Negative. Gastrointestinal: Positive for abdominal pain (lower) and constipation (not new). Negative for blood in stool, diarrhea, nausea and vomiting. Genitourinary: Positive for flank pain. Negative for difficulty urinating, dysuria, frequency and hematuria. Vitals: 03/23/24 1352 BP: 126/63 Pulse: 55 SpO2: 99% Weight: 167 lb 6.4 oz (75.9 kg) Height: 5' 2 (1.575 m) Physical Exam Constitutional: General: She is not in acute distress. Appearance: Normal appearance. She is not ill-appearing. HENT: Head: Normocephalic and atraumatic. Mouth/Throat: Mouth: Mucous membranes are moist. Pharynx: Oropharynx is clear. No posterior oropharyngeal erythema. Eyes: Conjunctiva/sclera: Conjunctivae normal. Cardiovascular: Rate and Rhythm: Normal rate and regular rhythm. Abdominal: Tenderness: There is no right CVA tenderness or left CVA tenderness. Skin: General: Skin is warm and dry. Neurological: Mental Status: She is alert and oriented to person, place, and time. An electronic signature was used to authenticate this note. SOO Hodge CNP 03/23/2024 4:36 PM documented in this encounter [facility] 03-23-2024 Instructions SOO Grant CNP - 03/23/2024 2:00 PM EDT Will wait for urine culture to come back. Continue to drink lots of water to help flush urinary tract. documented in this encounter [facility] 03-23-2024 Telephone encounter Note S: Patient called the clinical access center with complaint of Lower back pain urine, test was positive for UTI. B: Ongoing started 2 weeks ago. A: Patient c/o tested positive with home test, she states the first one line the purple one was positive. Today she has lower back pain 2/10. Denies pain with urination. Urine unknown how it looks. Denies fever. States back pain is usually her only symptom. R: Appointment scheduled 03/23/24 at 1400 . Insurance verified. Instructed to bring medications to OV and wear a mask. Home Care advice given. Patient instructed to call back with worsening symptoms, concerns or questions. Patient verbalized understanding. Message to the office for review by the provider and needs recommendation from Provider for treatment going forward. Reason for Disposition Patient wants to be seen Protocols used: Flank [id number] [facility] 03-23-2024 Miscellaneous Notes S: Patient called the clinical access center with complaint of Lower back pain urine, test was positive for UTI. B: Ongoing started 2 weeks ago. A: Patient c/o tested positive with home test, she states the first one line the purple one was positive. Today she has lower back pain 2/10. Denies pain with urination. Urine unknown how it looks. Denies fever. States back pain is usually her only symptom. R: Appointment scheduled 03/23/24 at 1400 . Insurance verified. Instructed to bring medications to OV and wear a mask. Home Care advice given. Patient instructed to call back with worsening symptoms, concerns or questions. Patient verbalized understanding. Message to the office for review by the provider and needs recommendation from Provider for treatment going forward. Reason for Disposition Patient wants to be seen Protocols used: Flank [id number] documented in this encounter [facility] 02-10-2024 Evaluation + Plan note Associated Problem(s): TERESA on CPAP Patient wearing CPAP nightly. Reports good sleep and feels well rested during the daytime. [facility] 02-10-2024 Miscellaneous Notes Associated Problem(s): TERESA on CPAP Patient wearing CPAP nightly. Reports good sleep and feels well rested during the daytime. documented in this encounter [facility] 02-10-2024 Telephone encounter Note Reviewed chart. Refill appropriate. RX sent. [facility] 02-10-2024 Miscellaneous Notes Reviewed chart. Refill appropriate. RX sent. Prescription Request: Last medication check: 08/19/23 Last physical exam: 12/30/23 Next scheduled appointment: here today seeing Lata Last date of refill on this medication: 08/12/23 documented in this encounter [facility] 02-10-2024 History of Presen t illness Narrative Patient was verified by name and . Images from the original note were not included. 02/10/2024 Kamila Joseph (: 1955) is a 68 y.o. female , Established patient, here for evaluation of the following chief complaint(s): CPAP compliance and Sleep Apnea ASSESSMENT/PLAN: 1. TERESA on CPAP Assessment & Plan: Patient wearing CPAP nightly. Reports good sleep and feels well rested during the daytime. Follow up for with primary care provider as scheduled. SUBJECTIVE/OBJECTIVE: HPI - Kamila Joseph (: 1955) is a 68 y.o. female , Established patient, here for the evaluation of the following chief complaint(s): CPAP compliance and Sleep Apnea Presents with daughter today to follow-up on CPAP compliance and her sleep apnea. Daughter reports they set up her CPAP about a month or so ago and she has been doing well wearing it at bedtime. Patient reports that she Is wearing at bedtime, is keeping on all night. Reports feeling more well rested. -She does state if it is different than her previous cpap but was easy to get used to. Prior to Admission medications Medication Sig Start Date End Date Taking? Authorizing Provider Ascorbic Acid (vitamin C) 1000 MG tablet Take 1,000 mg by mouth daily. 08/06/23 Yes Historical Provider, aspirin 81 MG EC tablet Take 81 mg by mouth daily. Yes Historical Provider, busPIRone (Buspar) 15 MG tablet Take 1 tablet (15 mg) by mouth 2 times daily. 12/09/23 Yes Shyla Bustillo APRN - DION[facility] clonazePAM (KlonoPIN) 0.5 MG tablet Take 0.5 tablets (0.25 mg) by mouth 2 times daily. 10/16/23 02/10/24 Yes SOO Grant CNP folic acid (Folvite) 1 MG tablet TAKE 1 TABLET BY MOUTH EVERY DAY 08/12/23 Yes Juvencio Davila MD lisinopril 2.5 MG tablet Take 2.5 mg by mouth daily. 08/13/22 Yes Historical Provider, methenamine hippurate (Hiprex) 1 g tablet 05/09/23 Yes Historical Provider, metoprolol succinate XL (Toprol-XL) 25 MG 24 hr tablet Take 25 mg by mouth daily. 07/05/22 Yes Historical Provider, Multiple Vitamin (multivitamin) tablet Take 1 tablet by mouth daily. Yes Historical Provider, simvastatin (Zocor) 40 MG tablet Take 1 tablet (40 mg) by mouth Nightly. 12/30/23 Yes SOO Grant CNP valbenazine tosylate (Ingrezza) 80 MG capsule Take 1 capsule (80 mg) by mouth daily. 10/25/23 10/24/24 Yes SOO Mtz CNP venlafaxine XR (Effexor XR) 150 MG 24 hr capsule Take 2 capsules (300 mg) by mouth daily. 10/16/23 04/13/24 Yes SOO Grant CNP Review of Systems Constitutional: Negative. Respiratory: Negative. Cardiovascular: Negative. Psychiatric/Behavioral: Negative for dysphoric mood, sleep disturbance and suicidal ideas. The patient is nervous/anxious. Vitals: 02/10/24 1111 BP: 134/58 Pulse: 71 Temp: 36.6 C (97.8 F) TempSrc: Oral SpO2: 97% Weight: 162 lb 12.8 oz (73.8 kg) Height: 5' 2 (1.575 m) Physical Exam Constitutional: General: She is not in acute distress. Appearance: Normal appearance. She is obese. She is not ill-appearing. HENT: Head: Normocephalic and atraumatic. Eyes: Conjunctiva/sclera: Conjunctivae normal. Cardiovascular: Rate and Rhythm: Normal rate and regular rhythm. Pulses: Normal pulses. Heart sounds: Normal heart sounds. Pulmonary: Effort: Pulmonary effort is normal. Breath sounds: Normal breath sounds. Skin: General: Skin is warm and dry. Neurological: Mental Status: She is alert and oriented to person, place, and time. Psychiatric: Mood and Affect: Mood normal. Behavior: Behavior normal. Thought Content: Thought content normal. Judgment: Judgment normal. An electronic signature was used to authenticate this note. SOO Grant CNP 02/10/2024 4:42 PM documented in this encounter [facility] 02-10-2024 Telephone encounter Note Prescription Request: Last medication check: 08/19/23 Last physical exam: 12/30/23 Next scheduled appointment: here today seeing Lata Last date of refill on this medication: 08/12/23 [facility] 12-30-2023 Evaluation + Plan note Associated Problem(s): Anxiety Continue clonazepam 0.25 mg twice daily if needed, BuSpar 15 mg twice daily. Follow-up with psychiatry as directed. Psychiatry will be managing psychiatric medications from now on. [facility] 12-30-2023 Miscellaneous Notes Associated Problem(s): Anxiety Continue clonazepam 0.25 mg twice daily if needed, BuSpar 15 mg twice daily. Follow-up with psychiatry as directed. Psychiatry will be managing psychiatric medications from now on. Associated Problem(s): Recurrent major depressive disorder, in full remission (HCC) Stable continue venlafaxine 300 mg daily. Follow-up with psychiatry for further management. Psychiatrist will now be managing psychiatric medications including anxiety medications Associated Problem(s): Hyperlipidemia LDL goal <100 Recheck lipid panel today, continue simvastatin 40 mg nightly nightly Associated Problem(s): Essential hypertension Controlled blood pressure 119/76. Continue metoprolol 25 mg daily and lisinopril 2.5 mg daily Associated Problem(s): TERESA on CPAP Patient has gotten a new CPAP but needs to start wearing it. Recommend doing so immediately as this will help improve sleep and reduce risks associated with untreated Teresa Associated Problem(s): Weight loss Weight is now stable 154 pounds. Associated Problem(s): Tardive dyskinesia Much improvement. Continue follow-up with neurology documented in this encounter [facility] 12-30-2023 Evaluation + Plan note Associated Problem(s): Recurrent major depressive disorder, in full remission (HCC) Stable continue venlafaxine 300 mg daily. Follow-up with psychiatry for further management. Psychiatrist will now be managing psychiatric medications including anxiety medications [facility] 12-30-2023 Evaluation + Plan note Associated Problem(s): Hyperlipidemia LDL goal <100 Recheck lipid panel today, continue simvastatin 40 mg nightly nightly [facility] 12-30-2023 Evaluation + Plan note Associated Problem(s): Essential hypertension Controlled blood pressure 119/76. Continue metoprolol 25 mg daily and lisinopril 2.5 mg daily [facility] 12-30-2023 Evaluation + Plan note Associated Problem(s): TERESA on CPAP Patient has gotten a new CPAP but needs to start wearing it. Recommend doing so immediately as this will help improve sleep and reduce risks associated with untreated Teresa [facility] 12-30-2023 Evaluation + Plan note Associated Problem(s): Weight loss Weight is now stable 154 pounds. [facility] 12-30-2023 Evaluation + Plan note Associated Problem(s): Tardive dyskinesia Much improvement. Continue follow-up with neurology [facility] 12-30-2023 History of Presen t illness Narrative Patient was verified by name and . Images from the original note were not included. [facility] [address] [facility] [address] Dept: [phone] Dept Chief Complaint: Kamila Joseph is an 68 y.o. female here for an annual wellness visit. Assessment/Plan : Problem List Items Addressed This Visit TERESA on CPAP Patient has gotten a new CPAP but needs to start wearing it. Recommend doing so immediately as this will help improve sleep and reduce risks associated with untreated Teresa Anxiety Continue clonazepam 0.25 mg twice daily if needed, BuSpar 15 mg twice daily. Follow-up with psychiatry as directed. Psychiatry will be managing psychiatric medications from now on. Recurrent major depressive disorder, in full remission (HCC) Stable continue venlafaxine 300 mg daily. Follow-up with psychiatry for further management. Psychiatrist will now be managing psychiatric medications including anxiety medications Essential hypertension Controlled blood pressure 119/76. Continue metoprolol 25 mg daily and lisinopril 2.5 mg daily Relevant Orders Comprehensive metabolic panel Hyperlipidemia LDL goal <100 Recheck lipid panel today, continue simvastatin 40 mg nightly nightly Relevant Medications simvastatin (Zocor) 40 MG tablet Other Relevant Orders Lipid panel Tardive dyskinesia Much improvement. Continue follow-up with neurology Weight loss Weight is now stable 154 pounds. Other Visit Diagnoses Routine general medical examination at health care facility - Primary Screening for deficiency anemia Relevant Orders CBC Encounter for screening mammogram for malignant neoplasm of breast Relevant Orders Bilateral screening mammogram with tomosynthesis Post-menopausal Relevant Orders DEXA bone density axial skeleton I have reviewed and reconciled the medication list with the patient today. Current Outpatient Medications Medication Sig Dispense Refill Ascorbic Acid (vitamin C) 1000 MG tablet Take 1,000 mg by mouth daily. aspirin 81 MG EC tablet Take 81 mg by mouth daily. busPIRone (Buspar) 15 MG tablet Take 1 tablet (15 mg) by mouth 2 times daily. 180 tablet 0 clonazePAM (KlonoPIN) 0.5 MG tablet Take 0.5 tablets (0.25 mg) by mouth 2 times daily. 30 tablet 0 folic acid (Folvite) 1 MG tablet TAKE 1 TABLET BY MOUTH EVERY DAY 90 tablet 1 lisinopril 2.5 MG tablet Take 2.5 mg by mouth daily. methenamine hippurate (Hiprex) 1 g tablet metoprolol succinate XL (Toprol-XL) 25 MG 24 hr tablet Take 25 mg by mouth daily. Multiple Vitamin (multivitamin) tablet Take 1 tablet by mouth daily. valbenazine tosylate (Ingrezza) 80 MG capsule Take 1 capsule (80 mg) by mouth daily. 30 capsule 11 venlafaxine XR (Effexor XR) 150 MG 24 hr capsule Take 2 capsules (300 mg) by mouth daily. 180 capsule 1 simvastatin (Zocor) 40 MG tablet Take 1 tablet (40 mg) by mouth Nightly. 90 tablet 1 triamcinolone (Kenalog) 0.1 % oral paste Apply to affected area every 2 hours as needed. (Patient not taking: Reported on 12/30/2023) 20 g 0 No current facility-administered medications for this visit. Also reviewed during this visit: Patient presents with daughter today who reports overall she is doing well. Has had much for improvement with her tardive dyskinesia with medications provided by her neurologist. She is also established with a psychiatrist who she will be following up in January and will be taking over her psychiatric medications KLETSEL DEHE WINTUN-hearing aids sees ENT in March- January - Dr. Argueta- will be taking over psychiatric medications. Neuorlogy in March-to follow-up on tardive dyskinesia Urology in February to follow-up for recurrent UTIs has not had one for several months Patient and daughter report that patient is only driving during the daytime and short distances and doing okay with this. Obstructive sleep apnea-recently got a new CPAP after her stroke in May but has not set it up and has not been using it. Daughter reports that she will help her set it up she states she was sleeping much better when she was using it The following health maintenance schedule was reviewed with the patient and provided in printed form in the after visit summary: Health Maintenance Topic Date Due Medicare Annual Wellness (AWV) Never done Bone Density Scan Never done Derm Melanoma Skin Check Never done Mammogram 01/25/2023 Diabetes Screening 10/30/2023 Colorectal Cancer Screening 10/26/2024 Influenza Vaccine (1) 04/19/2024 (Originally 06/21/2023) RSV Immunization aged 60 or older (1 - 1-dose 60+ series) 09/17/2024 (Originally 2017) Hepatitis B Vaccines (2 of 3 - 19+ 3-dose series) 09/17/2024 (Originally 09/24/2005) Pneumococcal Vaccine: 65+ Years (1 of 2 - PCV) 09/17/2024 (Originally 1963) Hepatitis C Screening 09/17/2024 (Originally 1975) COVID-19 Vaccine (3 - 2022-24 season) 2024 (Originally 06/21/2023) Echocardiogram 01/19/2024 Creatinine Level 05/15/2024 Potassium Level 05/15/2024 Depresssion Monitoring 07/01/2024 DTaP/Tdap/Td Vaccines (2 - Td or Tdap) 02/15/2027 Lipid Panel 10/30/2027 Zoster Vaccines Completed RSV Immunization under 20 Months Aged Out HIB Vaccines Aged Out IPV Vaccines Aged Out Hepatitis A Vaccines Aged Out Meningococcal Vaccine Aged Out Rotavirus Vaccines Aged Out HPV Vaccines Aged Out List of current healthcare providers: Patient Care Team: Juvencio Davila MD as PCP - General Orders Placed This Encounter Procedures Bilateral screening mammogram with tomosynthesis Standing Status: Future Standing Expiration Date: 02/28/2025 DEXA bone density axial skeleton Standing Status: Future Standing Expiration Date: 12/29/2024 Order Specific Question: Is this a screening study for a post-menopausal patient? Answer: No Lipid panel Standing Status: Future Number of Occurrences: 1 Standing Expiration Date: 12/29/2024 CBC Standing Status: Future Number of Occurrences: 1 Standing Expiration Date: 12/29/2024 Comprehensive metabolic panel Standing Status: Future Number of Occurrences: 1 Standing Expiration Date: 12/29/2024 Review of Systems Constitutional: Negative. Respiratory: Negative. Cardiovascular: Negative. Neurological: Negative. Psychiatric/Behavioral: Negative for agitation, behavioral problems, decreased concentration, dysphoric mood, self-injury, sleep disturbance and suicidal ideas. The patient is nervous/anxious. Physical Exam Constitutional: Appearance: Normal appearance. HENT: Head: Normocephalic and atraumatic. Mouth/Throat: Mouth: Mucous membranes are moist. Pharynx: Oropharynx is clear. Comments: Small amount of writhing of the tongue but much improved from previous visit Cardiovascular: Rate and Rhythm: Normal rate and regular rhythm. Pulses: Normal pulses. Heart sounds: Normal heart sounds. Pulmonary: Effort: Pulmonary effort is normal. Breath sounds: Normal breath sounds. Musculoskeletal: Right lower leg: No edema. Left lower leg: No edema. Skin: General: Skin is warm and dry. Neurological: Mental Status: She is alert and oriented to person, place, and time. Psychiatric: Mood and Affect: Mood normal. Behavior: Behavior normal. Thought Content: Thought content normal. Judgment: Judgment normal. Objective : BP 119/76 Pulse 71 Temp 36.7 C (98 F) (Temporal) Ht 5' 3 (1.6 m) Wt 154 lb 12.8 oz (70.2 kg) SpO2 97% BMI 27.42 kg/m Vision Screening Right eye Left eye Both eyes Without correction 20/50 20/30 20/25 With correction Subjective : Over the past 2 weeks, how often have you been bothered by any of the following problems? Trouble falling or staying asleep, or sleeping too much: More than half the days Feeling tired or having little energy: Nearly every day Poor appetite or overeating: Not at all Feeling bad about yourself - or that you are a failure or have let yourself or your family down: Not at all Trouble concentrating on things, such as reading the newspaper or watching television: Not at all Moving or speaking so slowly that other people could have noticed? Or the opposite - being so fidgety or restless that you have been moving around a lot more than usual.: Not at all Thoughts that you would be better off or hurting yourself in some way: Not at all Patient Health Questionnaire-9 Score: 5 Over the last 2 weeks, how often have you been bothered by any of the following problems? Feeling nervous, anxious, or on edge: Several days Not being able to stop or control worrying: Not at all Worrying too much about different things: Not at all Trouble relaxing: Not at all Being so restless that it is hard to sit still: Several days Becoming easily annoyed or irritable: Not at all Feeling afraid as if something awful might happen: Not at all ELIZABETH-7 Total Score: 2 Health Risk Assessment: General: General In general, how would you say your health is?: (!) Fair In the past 7 days, have you experienced any of the following: New or Increased Pain, New or Increased Fatigue, Loneliness, Social Isolation, Stress or Anger?: No Do you get the social and emotional suppport you need?: Yes Interventions: Poor self-assessment of health status: patient will be following up with specialists Health Habits/Nutrition: Health Habits / Nutrition On average, how many days per week do you engage in moderate to strenous exercise (like a brisk walk)?: (!) 0 days On average, how man minutes do you engage in exercise at this level?: (!) 0 min Have you lost any weight without trying in the past 3 months? : No Have you seen the dentist within the past year?: (!) No Interventions: Inadequate physical activity: Patient is not ready to increase his / her physical activity level at this time and Dental exam overdue: Patient encouraged to make appointment with his / her dentist Hearing/ Vision: Hearing / Vision Do you or your family notice any trouble with your hearing that hasn't been managed with hearing aids?: No Do you have difficulty driving, watching TV, or doing any of your daily activities because of your eyesight?: (!) Yes Have you had an eye exam within the past year?: (!) No Vision Screening Right eye Left eye Both eyes Without correction 20/50 20/30 20/25 With correction Interventions: Vision concerns: Patient encouraged to make appointment with his / her photo print specialist Safety: Safety Do you have a working smoke detector?: Yes Do you have any tripping hazards - loose or unsecured carpets or rugs?: No Do you have any tripping hazards - clutter in doorways, halls, or stairs?: No Do you have either shower bars, grab bars, non-slip mats or non-slip surfaces in your shower or bathtub? : Yes Do all your stairways have a railing or banister? : Yes Do you fasten your seatbelt when you are in a car?: Yes ADL: ADL In the past 7 days, did you need help from others to perform any of the following everyday activities: Eating, dressing, grooming,bathing, toileting, or walking / balance? : No In the past 7 days, did you need help from others to take care of any of the following: laundry, housekeeping, banking / finances,shopping, telephone use, food preparation, transportation, or taking medications? : Yes Select all that apply: Transportation, Taking Medications Interventions: Patient declines any further evaluation / treatment for this issue Living Will: Living Will Do you have a living will?: Yes Cognitive: Cognitive Screening: Mini-Cog Clock Drawing Test (CDT): 2 Words Recalled: 3 Total Score: 5 Total Score Interpretation: Normal Mini-Cog Interventions: Fall Risk: Fall Risk One or more falls in the last year:: Yes Advised to use a cane or walker to get around safely:: No Feels unsteady when walking:: No Steadies self on furniture while walking at home:: No Worried about falling:: No Interventions: Depression Screening: Over the past 2 weeks, how often have you been bothered by any of the following problems? Little interest or pleasure in doing things: Not at all Feeling down, depressed, or hopeless: Not at all Patient Health Questionnaire-2 Score: 0 Over the past 2 weeks, how often have you been bothered by any of the following problems? Trouble falling or staying asleep, or sleeping too much: More than half the days Feeling tired or having little energy: Nearly every day Poor appetite or overeating: Not at all Feeling bad about yourself - or that you are a failure or have let yourself or your family down: Not at all Trouble concentrating on things, such as reading the newspaper or watching television: Not at all Moving or speaking so slowly that other people could have noticed? Or the opposite - being so fidgety or restless that you have been moving around a lot more than usual.: Not at all Thoughts that you would be better off or hurting yourself in some way: Not at all Patient Health Questionnaire-9 Score: 5 If you checked off any problems on this questionnaire so far, How difficult have these problems made it for you to do your work, take care of things at home, or get along with other people?: Not difficult at all Interventions: Tobacco Use: Social History Tobacco Use Smoking Status Never Smokeless Tobacco Never Alcohol Use: Audit Alcohol Screening Q1: How often do you have a drink containing alcohol?: Never Q2: How many drinks containing alcohol do you have on a typical day when you are drinking?: Patient does not drink Q3: How often do you have six or more drinks on one occasion?: Never Audit-C Score: 0 Skip to questions 9-10?: 1 documented in this encounter [facility] 12-30-2023 Instructions SOO Grant CNP - 12/30/2023 11:20 AM EDT Wear your CPAP Personalized Preventative Plan for Kamila Joseph - 12/30/2023 Medicare offers a range of preventative health benefits. Some of the tests and screenings are paid in full while others may be subject to a deductible, co-insurance, and / or copay. Some of these benefits include a comprehensive review of your medical history including lifestyle, illnesses that may run in your family, and various assessments and screenings as appropriate. After reviewing your medical record and screening and assessments performed today, your provider may have ordered immunizations, labs, imaging, and / or referrals for you. A list of these orders (if applicable) as well as your Preventative Care list are included within your After Visit Summary for your review. Other Preventative Recommendations: A preventive eye exam by an photo print specialist is recommended every 1-2 years to screen for glaucoma, cataracts, macular degeneration, and other eye disorders. A preventive dental visit is recommended every 6 months. Try to get at least 150 minutes of exercise per week or 10,000 steps per day on a pedometer. You need 1200-1500mg of calcium and [id number] international units of vitamin D per day. It is possible to meet your calcium requirement with diet alone, but a vitamin D supplement is usually necessary to meet this goal. When exposed to the sun, use a sunscreen that protects against both UVA and UVB radiation with an SPF of 30 or greater. Reapply every 2-3 hours or after sweating, drying off with a towel, or swimming. Always wear a seat belt when traveling in a car. Always wear a helmet when riding a bicycle or a motorcycle documented in this encounter [facility] 12-09-2023 Telephone encounter Note Rx sent. Follow up as scheduled. [facility] 12-09-2023 Miscellaneous Notes Rx sent. Follow up as scheduled. Prescription Request: Last medication check: 11/14/23 Last physical exam: 10/29/22 Next scheduled appointment: 12/30/23 Last date of refill on this medication 11/14/23 documented in this encounter [facility] 12-09-2023 Telephone encounter Note Prescription Request: Last medication check: 11/14/23 Last physical exam: 10/29/22 Next scheduled appointment: 12/30/23 Last date of refill on this medication 11/14/23 [facility] 12-06-2023 History of Presen t illness Narrative Department of Neurological Sciences Visit Note CHIEF COMPLAINT: Chief Complaint Patient presents with Follow-up Tardive Dyskinesia Main diagnoses: Orofacial dyskinesia HISTORY OF PRESENT ILLNESS: The patient is a 68 y.o. female today presents to the Neurology clinic with history of orofacial dyskinesia. Today patient presented to the neurology clinic accompanied by her daughter. Patient reported that her dyskinesia is getting better. Her orofacial dyskinesia have improved significantly. She only have occasional movements with the tongue. She can no longer move her mouth. Patient denied any side effect from medications. Patient also reported that the sores that she had in the tongue and oral mucosa have healed completely. She denied any difficulty swallowing. Patient reported that her improvement is approximately 80 to 90%. Secundary diagnoses: Depression Medications: Current Outpatient Medications Medication Sig Dispense Refill Ascorbic Acid (vitamin C) 1000 MG tablet Take 1,000 mg by mouth daily. aspirin 81 MG EC tablet Take 81 mg by mouth daily. busPIRone (Buspar) 15 MG tablet Take 1 tablet (15 mg) by mouth 2 times daily. 60 tablet 0 folic acid (Folvite) 1 MG tablet TAKE 1 TABLET BY MOUTH EVERY DAY 90 tablet 1 lisinopril 2.5 MG tablet Take 2.5 mg by mouth daily. methenamine hippurate (Hiprex) 1 g tablet metoprolol succinate XL (Toprol-XL) 25 MG 24 hr tablet Take 25 mg by mouth daily. Multiple Vitamin (multivitamin) tablet Take 1 tablet by mouth daily. simvastatin (Zocor) 40 MG tablet TAKE 1 TABLET BY MOUTH EVERY DAY AT NIGHT 90 tablet 1 triamcinolone (Kenalog) 0.1 % oral paste Apply to affected area every 2 hours as needed. 20 g 0 valbenazine tosylate (Ingrezza) 80 MG capsule Take 1 capsule (80 mg) by mouth daily. 30 capsule 11 venlafaxine XR (Effexor XR) 150 MG 24 hr capsule Take 2 capsules (300 mg) by mouth daily. 180 capsule 1 clonazePAM (KlonoPIN) 0.5 MG tablet Take 0.5 tablets (0.25 mg) by mouth 2 times daily. 30 tablet 0 Melatonin 2.5 MG chewable tablet Chew 12 mg. No current facility-administered medications for this visit. Allergies: Vraylar [cariprazine] Social History: Social History Socioeconomic History Marital status: Spouse name: Not on file Number of children: Not on file Years of education: Not on file Highest education level: Not on file Occupational History Not on file Tobacco Use Smoking status: Never Smokeless tobacco: Never Substance and Sexual Activity Alcohol use: No Drug use: No Sexual activity: Not on file Other Topics Concern Not on file Social History Narrative Not on file Social Determinants of Health Financial Resource Strain: Not on file Food Insecurity: Not on file Transportation Needs: Not on file Physical Activity: Not on file Stress: Not on file Social Connections: Not on file Intimate Partner Violence: Not on file Housing Stability: Not on file Family History: Family History Problem Relation Name Age of Onset Breast cancer Mother's Sister Substance Abuse Mother Heart disease Father Heart disease Mother REVIEW OF SYSTEMS: Review of Systems Constitutional: Negative. HENT: Negative. Eyes: Negative. Respiratory: Negative. Cardiovascular: Negative. Gastrointestinal: Negative. Endocrine: Negative. Genitourinary: Negative. Musculoskeletal: Positive for arthralgias, back pain, neck pain and neck stiffness. Skin: Negative. Allergic/Immunologic: Negative. Neurological: Negative. Orofacial dyskinesia Hematological: Negative. Psychiatric/Behavioral: Positive for dysphoric mood and sleep disturbance. PHYSICAL EXAM: Vitals: BP 133/74 (BP Location: Left arm) Pulse 65 Temp 36.2 C (97.2 F) (Infrared) Ht 5' 3.25 (1.607 m) Wt 152 lb (68.9 kg) BMI 26.71 kg/m Physical Exam Constitutional: Appearance: Normal appearance. HENT: Head: Normocephalic and atraumatic. Nose: Nose normal. Mouth/Throat: Mouth: Mucous membranes are moist. Pharynx: Oropharynx is clear. Eyes: General: Vision grossly intact. Gaze aligned appropriately. Extraocular Movements: Extraocular movements intact. Conjunctiva/sclera: Conjunctivae normal. Pupils: Pupils are equal, round, and reactive to light. Neck: Trachea: Trachea and phonation normal. Cardiovascular: Rate and Rhythm: Normal rate and regular rhythm. Pulses: Normal pulses. Heart sounds: Normal heart sounds. Pulmonary: Effort: Pulmonary effort is normal. Breath sounds: Normal breath sounds. Abdominal: General: Abdomen is flat. Bowel sounds are normal. Palpations: Abdomen is soft. Musculoskeletal: General: Normal range of motion. Cervical back: Normal range of motion and neck supple. Skin: General: Skin is warm and dry. Neurological: General: No focal deficit present. Mental Status: She is alert and oriented to person, place, and time. Mental status is at baseline. Cranial Nerves: Cranial nerves 2-12 are intact. Deep Tendon Reflexes: Reflexes are normal and symmetric. Reflex Scores: Tricep reflexes are 2+ on the right side and 2+ on the left side. Bicep reflexes are 2+ on the right side and 2+ on the left side. Brachioradialis reflexes are 2+ on the right side and 2+ on the left side. Patellar reflexes are 2+ on the right side and 2+ on the left side. Achilles reflexes are 2+ on the right side and 2+ on the left side. Psychiatric: Attention and Perception: Attention normal. Mood and Affect: Mood normal. Speech: Speech normal. Behavior: Behavior normal. Behavior is cooperative. Thought Content: Thought content normal. Cognition and Memory: Cognition normal. Judgment: Judgment normal. Impression: Diagnosis Plan 1. 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 Since patient is improving denied any side effects we are going to continue Ingrezza at the same doses. 2. Patient will follow in the neurology clinic in 3 months. If at that time her movement disorder have almost disappeared we will start decreasing Ingrezza. Thank you JIE MIRANDA MD documented in this encounter [facility] [employer] 11-14-2023 Evaluation + Plan note Associated Problem(s): Recurrent major depressive disorder, in full remission (HCC) Stable. Continue venlafaxine 300 mg daily [facility] [employer] 11-14-2023 Miscellaneous Notes Associated Problem(s): Recurrent major depressive disorder, in full remission (HCC) Stable. Continue venlafaxine 300 mg daily Associated Problem(s): Anxiety Improving, continue clonazepam 0.25 mg twice daily if needed, increase BuSpar to 15 mg twice daily and follow-up in about 1 month documented in this encounter [facility] 11-14-2023 Evaluation + Plan note Associated Problem(s): Anxiety Improving, continue clonazepam 0.25 mg twice daily if needed, increase BuSpar to 15 mg twice daily and follow-up in about 1 month [facility] 11-14-2023 History of Presen t illness Narrative Patient was identified by name and Date of . Images from the original note were not included. 11/14/2023 Kamila Joseph (: 1955) is a 68 y.o. female , Established patient, here for evaluation of the following chief complaint(s): Follow-up ASSESSMENT/PLAN: 1. Anxiety Assessment & Plan: Improving, continue clonazepam 0.25 mg twice daily if needed, increase BuSpar to 15 mg twice daily and follow-up in about 1 month Orders: - busPIRone (Buspar) 15 MG tablet; Take 1 tablet (15 mg) by mouth 2 times daily., Starting Maura 11/14/2023, Until 12/14/2023, Normal 2. Recurrent major depressive disorder, in full remission (HCC) Assessment & Plan: Stable. Continue venlafaxine 300 mg daily Follow up for Recheck. SUBJECTIVE/OBJECTIVE: HPI - Kamila Joseph (: 1955) is a 68 y.o. female , Established patient, here for the evaluation of the following chief complaint(s): Follow-up Presents with daughter for follow-up anxiety and depression. Recently we increased BuSpar from 5 mg to 10 mg twice daily. Patient continued her Effexor. Reports that the BuSpar is helping and would like to increase it if possible, states her mood and anxiety is the best it has been in the past year. States she feels really good Is still seeing the neurologist next month for follow-up on her tardive dyskinesia which has greatly improved. Continues to lose some weight and is doing so by a low-carb diet. States she has been gradually adding back in complex carbohydrates. Prior to Admission medications Medication Sig Start Date End Date Taking? Authorizing Provider Ascorbic Acid (vitamin C) 1000 MG tablet Take 1,000 mg by mouth daily. 08/06/23 Yes Historical Provider, aspirin 81 MG EC tablet Take 81 mg by mouth daily. Yes Historical Provider, busPIRone (Buspar) 10 MG tablet Take 1 tablet (10 mg) by mouth 2 times daily. 10/16/23 01/14/24 Yes SOO Grant CNP clonazePAM (KlonoPIN) 0.5 MG tablet Take 0.5 tablets (0.25 mg) by mouth 2 times daily. 10/16/23 11/15/23 Yes SOO Grant CNP folic acid (Folvite) 1 MG tablet TAKE 1 TABLET BY MOUTH EVERY DAY 08/12/23 Yes Juvencio Davila MD lisinopril 2.5 MG tablet Take 2.5 mg by mouth daily. 08/13/22 Yes Historical Provider, Melatonin 2.5 MG chewable tablet Chew 12 mg. Yes Historical Provider, methenamine hippurate (Hiprex) 1 g tablet 05/09/23 Yes Historical Provider, metoprolol succinate XL (Toprol-XL) 25 MG 24 hr tablet Take 25 mg by mouth daily. 07/05/22 Yes Historical Provider, Multiple Vitamin (multivitamin) tablet Take 1 tablet by mouth daily. Yes Historical Provider, simvastatin (Zocor) 40 MG tablet TAKE 1 TABLET BY MOUTH EVERY DAY AT NIGHT 06/27/23 Yes Juvencio Davila MD triamcinolone (Kenalog) 0.1 % oral paste Apply to affected area every 2 hours as needed. 06/27/23 Yes Juvencio Davila MD valbenazine tosylate (Ingrezza) 80 MG capsule Take 1 capsule (80 mg) by mouth daily. 10/25/23 10/24/24 Yes SOO Mtz CNP venlafaxine XR (Effexor XR) 150 MG 24 hr capsule Take 2 capsules (300 mg) by mouth daily. 10/16/23 04/13/24 Yes SOO Grant CNP Review of Systems Constitutional: Negative. Respiratory: Negative. Cardiovascular: Negative. Neurological: Negative. Psychiatric/Behavioral: Negative for agitation, behavioral problems, decreased concentration, dysphoric mood, self-injury, sleep disturbance and suicidal ideas. The patient is nervous/anxious. Vitals: 11/14/23 1434 BP: 117/53 Pulse: 73 Resp: 18 Temp: 36.9 C (98.4 F) TempSrc: Infrared SpO2: 96% Weight: 152 lb 9.6 oz (69.2 kg) Physical Exam Constitutional: Appearance: Normal appearance. HENT: Head: Normocephalic and atraumatic. Mouth/Throat: Mouth: Mucous membranes are moist. Pharynx: Oropharynx is clear. Comments: Small amount of writhing of the tongue but much improved from previous visit Cardiovascular: Rate and Rhythm: Normal rate and regular rhythm. Pulses: Normal pulses. Heart sounds: Normal heart sounds. Pulmonary: Effort: Pulmonary effort is normal. Breath sounds: Normal breath sounds. Musculoskeletal: Right lower leg: No edema. Left lower leg: No edema. Skin: General: Skin is warm and dry. Neurological: Mental Status: She is alert and oriented to person, place, and time. Psychiatric: Mood and Affect: Mood normal. Behavior: Behavior normal. Thought Content: Thought content normal. Judgment: Judgment normal. An electronic signature was used to authenticate this note. SOO Grant CNP 11/14/2023 6:05 PM documented in this encounter [facility] 10-16-2023 Evaluation + Plan note Associated Problem(s): Essential hypertension Controlled. Blood pressure 118/72. Continue metoprolol 25 mg daily and lisinopril 2.5 mg daily [facility] 10-16-2023 Miscellaneous Notes Associated Problem(s): Essential hypertension Controlled. Blood pressure 118/72. Continue metoprolol 25 mg daily and lisinopril 2.5 mg daily Associated Problem(s): Recurrent major depressive disorder, in full remission (HCC) Stable. Continue venlafaxine 300 mg daily Associated Problem(s): Anxiety Anxiety poorly controlled. Continue clonazepam 0.25 mg twice daily, increase BuSpar 10 mg twice daily. Follow-up in 1 month for anxiety documented in this encounter [facility] 10-16-2023 Evaluation + Plan note Associated Problem(s): Recurrent major depressive disorder, in full remission (HCC) Stable. Continue venlafaxine 300 mg daily [facility] 10-16-2023 Evaluation + Plan note Associated Problem(s): Anxiety Anxiety poorly controlled. Continue clonazepam 0.25 mg twice daily, increase BuSpar 10 mg twice daily. Follow-up in 1 month for anxiety [facility] 10-16-2023 History of Presen t illness Narrative Patient was identified by name and Date of . Images from the original note were not included. 10/16/2023 Kamila Joseph (: 1955) is a 68 y.o. female , Established patient, here for evaluation of the following chief complaint(s): Follow-up ASSESSMENT/PLAN: 1. Anxiety Assessment & Plan: Anxiety poorly controlled. Continue clonazepam 0.25 mg twice daily, increase BuSpar 10 mg twice daily. Follow-up in 1 month for anxiety Orders: - clonazePAM (KlonoPIN) 0.5 MG tablet; Take 0.5 tablets (0.25 mg) by mouth 2 times daily., Starting Sat10/16/2023, Until Sat11/15/2023, Normal - busPIRone (Buspar) 10 MG tablet; Take 1 tablet (10 mg) by mouth 2 times daily., Starting Sat10/16/2023, Until Sat01/14/2024, Normal 2. Recurrent major depressive disorder, in full remission (HCC) Assessment & Plan: Stable. Continue venlafaxine 300 mg daily Orders: - venlafaxine XR (Effexor XR) 150 MG 24 hr capsule; Take 2 capsules (300 mg) by mouth daily., Starting Sat10/16/2023, Until Sat04/13/2024, Normal 3. Essential hypertension Assessment & Plan: Controlled. Blood pressure 118/72. Continue metoprolol 25 mg daily and lisinopril 2.5 mg daily Follow up in about 1 month (around 11/16/2023). SUBJECTIVE/OBJECTIVE: HPI - Kamila Joseph (: 1955) is a 68 y.o. female , Established patient, here for the evaluation of the following chief complaint(s): Follow-up Presents with daughter today to follow-up on her anxiety. Last visit we continued Klonopin 0.25 mg twice daily and added BuSpar 5 mg twice daily. States she does think that BuSpar is helping but thinks she may need an increased dose. Tardive dyskinesia-reports symptoms are greatly improving, recently started the increased dose of Ingrezza 80 mg 1 week ago. States her mouth movements have decreased significantly. Has a follow-up with the neurologist in November. Her psychiatric appointment is December 04. Denies any suicidal or homicidal ideation. Left lower leg wound, status post shave biopsy Last week. Patient denies any increased warmth or drainage. States that is healing well and no pain Prior to Admission medications Medication Sig Start Date End Date Taking? Authorizing Provider Ascorbic Acid (vitamin C) 1000 MG tablet Take 1,000 mg by mouth daily. 08/06/23 Yes Historical Provider, aspirin 81 MG EC tablet Take 81 mg by mouth daily. Yes Historical Provider, busPIRone (Buspar) 5 MG tablet Take 1 tablet (5 mg) by mouth 2 times daily. 09/17/23 09/16/24 Yes SOO Grant CNP clonazePAM (KlonoPIN) 0.5 MG tablet Take 0.25 mg by mouth 2 times daily. Yes Historical Provider, folic acid (Folvite) 1 MG tablet TAKE 1 TABLET BY MOUTH EVERY DAY 08/12/23 Yes Juvencio Davila MD lisinopril 2.5 MG tablet Take 2.5 mg by mouth daily. 08/13/22 Yes Historical Provider, Melatonin 2.5 MG chewable tablet Chew 12 mg. Yes Historical Provider, methenamine hippurate (Hiprex) 1 g tablet 05/09/23 Yes Historical Provider, metoprolol succinate XL (Toprol-XL) 25 MG 24 hr tablet Take 25 mg by mouth daily. 07/05/22 Yes Historical Provider, Multiple Vitamin (multivitamin) tablet Take 1 tablet by mouth daily. Yes Historical Provider, simvastatin (Zocor) 40 MG tablet TAKE 1 TABLET BY MOUTH EVERY DAY AT NIGHT 06/27/23 Yes Juvencio Davila MD triamcinolone (Kenalog) 0.1 % oral paste Apply to affected area every 2 hours as needed. 06/27/23 Yes Juvencio Davila MD Valbenazine Tosylate (Ingrezza) 60 MG capsule Take 1 capsule by mouth daily. 08/05/23 Yes SOO Mtz CNP valbenazine tosylate (Ingrezza) 80 MG capsule Take 1 capsule (80 mg) by mouth daily. 09/05/23 09/04/24 Yes Jie Miranda MD venlafaxine XR (Effexor XR) 150 MG 24 hr capsule Take 2 capsules (300 mg) by mouth daily. 08/28/23 Yes Juvencio Davila MD Review of Systems Constitutional: Negative for activity change, chills, fatigue and fever. HENT: Negative. Respiratory: Negative. Cardiovascular: Negative. Endocrine: Hot flashes Genitourinary: Negative for difficulty urinating. Skin: Positive for wound. Neurological: Negative for dizziness and light-headedness. Psychiatric/Behavioral: Positive for decreased concentration. Negative for agitation, self-injury and suicidal ideas. The patient is nervous/anxious. Vitals: 10/16/23 1354 BP: 118/72 Pulse: 79 Resp: 20 Temp: 36.3 C (97.3 F) TempSrc: Infrared SpO2: 99% Weight: 154 lb (69.9 kg) Physical Exam Constitutional: General: She is not in acute distress. Appearance: Normal appearance. She is not ill-appearing. HENT: Head: Normocephalic and atraumatic. Eyes: Extraocular Movements: Extraocular movements intact. Conjunctiva/sclera: Conjunctivae normal. Pupils: Pupils are equal, round, and reactive to light. Cardiovascular: Rate and Rhythm: Normal rate and regular rhythm. Pulses: Normal pulses. Heart sounds: Normal heart sounds. Pulmonary: Effort: Pulmonary effort is normal. Breath sounds: Normal breath sounds. Musculoskeletal: Right lower leg: No edema. Left lower leg: No edema. Skin: General: Skin is warm and dry. Findings: Lesion (Small healing biopsy site left lower extremity, no drainage no increased erythema) present. Neurological: Mental Status: She is alert and oriented to person, place, and time. Psychiatric: Attention and Perception: Attention and perception normal. Mood and Affect: Affect normal. Mood is anxious. Speech: Speech is slurred (Very slightly slurred secondary to movement disorder, has greatly improved). Behavior: Behavior normal. Behavior is cooperative. Cognition and Memory: Cognition normal. An electronic signature was used to authenticate this note. SOO Grant CNP 10/16/2023 5:01 PM documented in this encounter [facility] 10-10-2023 Evaluation + Plan note Associated Problem(s): 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 Shave biopsy Reason rule out skin cancer Location left lower leg Procedure Consent was obtained, prepped with betadine, anesthetized with 2% lidocaine w/ epi 1.5 ml. Dermablade was used to remove lesion completely. Hemostasis obtained with electrocautery. Dressing applied. Instructed to watch for signs of infection and call or return. [facility] 10-10-2023 Miscellaneous Notes Associated Problem(s): 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 Shave biopsy Reason rule out skin cancer Location left lower leg Procedure Consent was obtained, prepped with betadine, anesthetized with 2% lidocaine w/ epi 1.5 ml. Dermablade was used to remove lesion completely. Hemostasis obtained with electrocautery. Dressing applied. Instructed to watch for signs of infection and call or return. documented in this encounter [facility] 10-10-2023 History of Presen t illness Narrative Images from the original note were not included. 10/10/2023 Kamila Joseph (: 1955) is a 68 y.o. female , Established patient, here for evaluation of the following chief complaint(s): Procedure (Shave biopsy left gordon) ASSESSMENT/PLAN: 1. 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 Assessment & Plan: Shave biopsy Reason rule out skin cancer Location left lower leg Procedure Consent was obtained, prepped with betadine, anesthetized with 2% lidocaine w/ epi 1.5 ml. Dermablade was used to remove lesion completely. Hemostasis obtained with electrocautery. Dressing applied. Instructed to watch for signs of infection and call or return. Orders: - Tissue exam Follow up if symptoms worsen or fail to improve. SUBJECTIVE/OBJECTIVE: [facility] -Kamila comes in today for a shave biopsy of a lesion on her left lower leg, this is ovoid raised with a rough scaly surface. Review of Systems There were no vitals filed for this visit. Physical Exam Left lower leg with a ovoid 6 mm lesion that is raised with a verruca's looking surface. An electronic signature was used to authenticate this note. Juvencio Davila MD 10/10/2023 3:53 PM documented in this encounter [facility] 09-18-2023 Evaluation + Plan note Associated Problem(s): Skin lesion Likely benign. We will have her schedule for skin lesion removal [facility] 09-18-2023 Miscellaneous Notes Associated Problem(s): Skin lesion Likely benign. We will have her schedule for skin lesion removal Associated Problem(s): Anxiety Anxiety is still poorly controlled. Continue Klonopin 0.5 mg half a tablet twice daily, we will add buspirone 5 mg twice daily and follow-up in 1 month Associated Problem(s): Essential hypertension Controlled. Blood pressure 120/82. Continue metoprolol 25 mg daily and lisinopril 2.5 mg daily Associated Problem(s): Tardive dyskinesia Improving. Follow-up with neurology as directed documented in this encounter [facility] 09-18-2023 Evaluation + Plan note Associated Problem(s): Anxiety Anxiety is still poorly controlled. Continue Klonopin 0.5 mg half a tablet twice daily, we will add buspirone 5 mg twice daily and follow-up in 1 month [facility] 09-18-2023 Evaluation + Plan note Associated Problem(s): Essential hypertension Controlled. Blood pressure 120/82. Continue metoprolol 25 mg daily and lisinopril 2.5 mg daily [facility] 09-18-2023 Evaluation + Plan note Associated Problem(s): Tardive dyskinesia Improving. Follow-up with neurology as directed [facility] 09-17-2023 History of Presen t illness Narrative Patient was identified by name and Date of . Images from the original note were not included. 09/17/2023 Kamila Joseph (: 1955) is a 68 y.o. female , Established patient, here for evaluation of the following chief complaint(s): Follow-up and Skin Lesion (Noticed about a month ago) ASSESSMENT/PLAN: 1. Anxiety Assessment & Plan: Anxiety is still poorly controlled. Continue Klonopin 0.5 mg half a tablet twice daily, we will add buspirone 5 mg twice daily and follow-up in 1 month Orders: - busPIRone (Buspar) 5 MG tablet; Take 1 tablet (5 mg) by mouth 2 times daily., Starting Sat09/17/2023, Until Sat09/16/2024, Normal 2. Tardive dyskinesia Assessment & Plan: Improving. Follow-up with neurology as directed 3. Essential hypertension Assessment & Plan: Controlled. Blood pressure 120/82. Continue metoprolol 25 mg daily and lisinopril 2.5 mg daily 4. Post-menopausal - DEXA bone density peripheral 5. Skin lesion Assessment & Plan: Likely benign. We will have her schedule for skin lesion removal Follow up in about 1 month (around 10/17/2023). SUBJECTIVE/OBJECTIVE: HPI - Kamila Joseph (: 1955) is a 68 y.o. female , Established patient, here for the evaluation of the following chief complaint(s): Follow-up and Skin Lesion (Noticed about a month ago) Presents with her daughter today. Reports her tardive dyskinesia is significantly improved, she is seeing neurology which they had started her on Ingrezza and that seems to have really helped. States they will be increasing the dose to 80 mg once they are completed with the 60 mg dosing. Reports her anxiety is still pretty problematic. Continues to take the Klonopin 0.5 but is only taking half a tablet twice a day. We had decreased this because she was having unsteady gait which this is improved since decreasing the dose. Reports depression symptoms are okay right now and denies any suicidal or homicidal ideation. She would like to start driving again and the daughter thinks that she would be okay doing this short distances. Is scheduled establish with psychiatry in November in [place]. is doing ok, after neck surgery, he is at home, is in a hard collar-she is still helping him with many of his ADLs because he is limited in what he is able to do. Skin lesion-has a small growth on the left lower leg that has been there for several months but is now getting caught on stuff and it bleeds every once in a while. She would like to have it removed. Prior to Admission medications Medication Sig Start Date End Date Taking? Authorizing Provider Ascorbic Acid (vitamin C) 1000 MG tablet Take 1,000 mg by mouth daily. 08/06/23 Yes Historical Provider, aspirin 81 MG EC tablet Take 81 mg by mouth daily. Yes Historical Provider, folic acid (Folvite) 1 MG tablet TAKE 1 TABLET BY MOUTH EVERY DAY 08/12/23 Yes Juvencio Davila MD lisinopril 2.5 MG tablet Take 2.5 mg by mouth daily. 08/13/22 Yes Historical Provider, Melatonin 2.5 MG chewable tablet Chew 12 mg. Yes Historical Provider, methenamine hippurate (Hiprex) 1 g tablet 05/09/23 Yes Historical Provider, metoprolol succinate XL (Toprol-XL) 25 MG 24 hr tablet Take 25 mg by mouth daily. 07/05/22 Yes Historical Provider, Multiple Vitamin (multivitamin) tablet Take 1 tablet by mouth daily. Yes Historical Provider, simvastatin (Zocor) 40 MG tablet TAKE 1 TABLET BY MOUTH EVERY DAY AT NIGHT 06/27/23 Yes Juvencio Davila MD triamcinolone (Kenalog) 0.1 % oral paste Apply to affected area every 2 hours as needed. 06/27/23 Yes Juvencio Davlia MD Valbenazine Tosylate (Ingrezza) 60 MG capsule Take 1 capsule by mouth daily. 08/05/23 Yes Violet Castellanos APRN - [facility] valbenazine tosylate (Ingrezza) 80 MG capsule Take 1 capsule (80 mg) by mouth daily. 09/05/23 09/04/24 Yes Jie Miranda MD venlafaxine XR (Effexor XR) 150 MG 24 hr capsule Take 2 capsules (300 mg) by mouth daily. 08/28/23 Yes Juvencio Davila MD Review of Systems Constitutional: Negative for activity change, chills, fatigue and fever. HENT: Negative. Respiratory: Negative. Cardiovascular: Negative. Endocrine: Hot flashes Genitourinary: Negative for difficulty urinating. Skin: Positive for wound. Neurological: Negative for dizziness and light-headedness. Psychiatric/Behavioral: Positive for decreased concentration. Negative for agitation, self-injury and suicidal ideas. The patient is nervous/anxious. Vitals: 09/17/23 1411 BP: 120/82 Pulse: 106 Resp: 24 Temp: 37 C (98.6 F) TempSrc: Infrared SpO2: 98% Weight: 154 lb (69.9 kg) Physical Exam Constitutional: General: She is not in acute distress. Appearance: Normal appearance. She is not ill-appearing. HENT: Head: Normocephalic and atraumatic. Ears: Comments: Hard of hearing Mouth/Throat: Mouth: Mucous membranes are moist. Pharynx: Oropharynx is clear. No oropharyngeal exudate or posterior oropharyngeal erythema. Eyes: Conjunctiva/sclera: Conjunctivae normal. Cardiovascular: Rate and Rhythm: Normal rate and regular rhythm. Pulmonary: Effort: Pulmonary effort is normal. Breath sounds: Normal breath sounds. Lymphadenopathy: Cervical: No cervical adenopathy. Skin: Findings: Lesion present. Neurological: Mental Status: She is alert and oriented to person, place, and time. Comments: Involuntary movements of the mouth minimal. Speech is is clear An electronic signature was used to authenticate this note. SOO Grant CNP 09/18/2023 6:30 AM documented in this encounter [facility] 09-05-2023 History of Presen t illness Narrative Department of Neurological Sciences Visit Note CHIEF COMPLAINT: Chief Complaint Patient presents with Follow-up Dementia, Tardive Dyskinesia Main diagnoses: Tardive dyskinesia HISTORY OF PRESENT ILLNESS: The patient is a 68 y.o. female today presents to the Neurology clinic for follow up. She presents with her daughter today. She reports she continues to improve with the dyskinesias. She states that her movements seem to be more prominent at night then during the day. The sores in her mouth are gone; however, she still has some soreness on both sides of her tongue due to rubbing the sides of her teeth. --She continues to use Ingrezza and continues to improve with this medication. She denies any side effects from the medication. --Patients CT scan reported no acute intracranial process and her labs did not reveal any amyloid plaques or inflammatory issues. She was advised of both results and expressed understanding. Secundary diagnoses: Depression, anxiety Medications: Current Outpatient Medications Medication Sig Dispense Refill Ascorbic Acid (vitamin C) 1000 MG tablet Take 1,000 mg by mouth daily. aspirin 81 MG EC tablet Take 81 mg by mouth daily. folic acid (Folvite) 1 MG tablet TAKE 1 TABLET BY MOUTH EVERY DAY 90 tablet 1 lisinopril 2.5 MG tablet Take 2.5 mg by mouth daily. Melatonin 2.5 MG chewable tablet Chew 12 mg. methenamine hippurate (Hiprex) 1 g tablet metoprolol succinate XL (Toprol-XL) 25 MG 24 hr tablet Take 25 mg by mouth daily. Multiple Vitamin (multivitamin) tablet Take 1 tablet by mouth daily. simvastatin (Zocor) 40 MG tablet TAKE 1 TABLET BY MOUTH EVERY DAY AT NIGHT 90 tablet 1 triamcinolone (Kenalog) 0.1 % oral paste Apply to affected area every 2 hours as needed. 20 g 0 Valbenazine Tosylate (Ingrezza) 60 MG capsule Take 1 capsule by mouth daily. 30 capsule 11 venlafaxine XR (Effexor XR) 150 MG 24 hr capsule Take 2 capsules (300 mg) by mouth daily. 180 capsule 1 valbenazine tosylate (Ingrezza) 80 MG capsule Take 1 capsule (80 mg) by mouth daily. 30 capsule 11 No current facility-administered medications for this visit. Allergies: Vraylar [cariprazine] Social History: Social History Socioeconomic History Marital status: Spouse name: Not on file Number of children: Not on file Years of education: Not on file Highest education level: Not on file Occupational History Not on file Tobacco Use Smoking status: Never Smokeless tobacco: Never Substance and Sexual Activity Alcohol use: No Drug use: No Sexual activity: Not on file Other Topics Concern Not on file Social History Narrative Not on file Social Determinants of Health Financial Resource Strain: Not on file Food Insecurity: Not on file Transportation Needs: Not on file Physical Activity: Not on file Stress: Not on file Social Connections: Not on file Intimate Partner Violence: Not on file Housing Stability: Not on file Family History: Family History Problem Relation Name Age of Onset Breast cancer Mother's Sister Substance Abuse Mother Heart disease Father Heart disease Mother REVIEW OF SYSTEMS: Review of Systems Constitutional: Negative. HENT: Negative. Eyes: Negative. Respiratory: Negative. Cardiovascular: Negative. Gastrointestinal: Negative. Endocrine: Negative. Genitourinary: Negative. Musculoskeletal: Negative. Skin: Negative. Allergic/Immunologic: Negative. Neurological: Negative. Hematological: Negative. Psychiatric/Behavioral: Negative. PHYSICAL EXAM: Vitals: BP 127/69 (BP Location: Right arm) Pulse 66 Temp 36.3 C (97.3 F) Physical Exam Constitutional: Appearance: Normal appearance. HENT: Head: Normocephalic and atraumatic. Nose: Nose normal. Mouth/Throat: Mouth: Mucous membranes are moist. Pharynx: Oropharynx is clear. Eyes: General: Vision grossly intact. Gaze aligned appropriately. Extraocular Movements: Extraocular movements intact. Conjunctiva/sclera: Conjunctivae normal. Pupils: Pupils are equal, round, and reactive to light. Neck: Trachea: Trachea and phonation normal. Cardiovascular: Rate and Rhythm: Normal rate and regular rhythm. Pulses: Normal pulses. Heart sounds: Normal heart sounds. Pulmonary: Effort: Pulmonary effort is normal. Breath sounds: Normal breath sounds. Abdominal: General: Abdomen is flat. Bowel sounds are normal. Palpations: Abdomen is soft. Musculoskeletal: General: Normal range of motion. Cervical back: Normal range of motion and neck supple. Skin: General: Skin is warm and dry. Neurological: General: No focal deficit present. Mental Status: She is alert and oriented to person, place, and time. Mental status is at baseline. Cranial Nerves: Cranial nerves 2-12 are intact. Deep Tendon Reflexes: Reflexes are normal and symmetric. Reflex Scores: Tricep reflexes are 2+ on the right side and 2+ on the left side. Bicep reflexes are 2+ on the right side and 2+ on the left side. Brachioradialis reflexes are 2+ on the right side and 2+ on the left side. Patellar reflexes are 2+ on the right side and 2+ on the left side. Achilles reflexes are 2+ on the right side and 2+ on the left side. Psychiatric: Attention and Perception: Attention normal. Mood and Affect: Mood normal. Speech: Speech normal. Behavior: Behavior normal. Behavior is cooperative. Thought Content: Thought content normal. Cognition and Memory: Cognition normal. Judgment: Judgment normal. Impression: Diagnosis Plan 1. Tardive dyskinesia 2. Anxiety and depression Plan: 1. Since patient appeared to be doing much better with Ingrezza we are going to maintain the patient on some medications same doses. 2. Patient will return to the neurology clinic in 3 months. At that time the patient oral pharyngeal dyskinesis we will perform Botox injections in both masseter muscles. JIE MIRANDA MD documented in this encounter [facility] 08-28-2023 Telephone encounter Note Prescription Request: Last medication check: 08/19/23 Last physical exam: 10/29/22 Next scheduled appointment: 09/17/23 Last date of refill on this medication 05/27/23 90 day 1 refill [facility] 08-28-2023 Miscellaneous Notes Prescription Request: Last medication check: 08/19/23 Last physical exam: 10/29/22 Next scheduled appointment: 09/17/23 Last date of refill on this medication 05/27/23 90 day 1 refill documented in this encounter [facility] 08-19-2023 Evaluation + Plan note Associated Problem(s): Weight loss Unsure etiology. Will check TSH. [facility] 08-19-2023 Miscellaneous Notes Associated Problem(s): Weight loss Unsure etiology. Will check TSH. Associated Problem(s): Essential hypertension Controlled. Continue metoprolol 25 mg daily and lisinopril 2.5 mg daily Associated Problem(s): Tardive dyskinesia Improving. Continue follow up with neurology. documented in this encounter [facility] 08-19-2023 Miscellaneous Notes Associated Problem(s): Weight loss Unsure etiology. Will check TSH. Associated Problem(s): Essential hypertension Controlled. Continue metoprolol 25 mg daily and lisinopril 2.5 mg daily Associated Problem(s): Tardive dyskinesia Improving. Continue follow up with neurology. Addended by: MERLYN ALBERTO on: 08/23/2023 07:36 AM Modules accepted: Orders documented in this encounter [facility] 08-19-2023 Evaluation + Plan note Associated Problem(s): Essential hypertension Controlled. Continue metoprolol 25 mg daily and lisinopril 2.5 mg daily [facility] 08-19-2023 Evaluation + Plan note Associated Problem(s): Tardive dyskinesia Improving. Continue follow up with neurology. [facility] 08-19-2023 History of Presen t illness Narrative Patient was identified by name and Date of . Images from the original note were not included. 08/19/2023 Kamila Joseph (: 1955) is a 68 y.o. female , Established patient, here for evaluation of the following chief complaint(s): Follow-up ASSESSMENT/PLAN: 1. Tardive dyskinesia Assessment & Plan: Improving. Continue follow up with neurology. 2. Weight loss Assessment & Plan: Unsure etiology. Will check TSH. Orders: - TSH 3. Hot flashes - TSH 4. Essential hypertension Assessment & Plan: Controlled. Continue metoprolol 25 mg daily and lisinopril 2.5 mg daily Patient's FMLA continued for an additional month. At this time do not recommend driving, we will reevaluate this after further work-up by neurology. Follow up in about 1 month (around 09/19/2023). SUBJECTIVE/OBJECTIVE: HPI - Kamila Joseph (: 1955) is a 68 y.o. female , Established patient, here for the evaluation of the following chief complaint(s): Follow-up Presents with Daughter for follow up movement disorder and unsteadiness. Taking 1/2 of the klonopin twice daily, is steadier on her feet- that has helped, No falls. Is anxious but has had increased stress at home with getting surgery on neck-for stenosis on Aug 30. He needs a lot of help at home with his ADLs. Is doing better in regards to movement disorder, no longer with a dry mouth. Neurology increased the Ingrezza to 60 mg which is helping. Neurology ordered a CT of head being done on Saturday to further evaluate mild dementia. Was to return to work after 08/20/2023, but now is thinking she is not quite ready. Has been having hot flashes intermittently for the past few weeks. Not sure why. Not listed as side effect of medication. Prior to Admission medications Medication Sig Start Date End Date Taking? Authorizing Provider Ascorbic Acid (vitamin C) 1000 MG tablet Take 1,000 mg by mouth daily. 08/06/23 Yes Historical Provider, aspirin 81 MG EC tablet Take 81 mg by mouth daily. Yes Historical Provider, clonazePAM (KlonoPIN) 0.5 MG tablet Take 1 tablet (0.5 mg) by mouth 3 times daily. 06/27/23 12/24/23 Yes Juvencio Davila MD folic acid (Folvite) 1 MG tablet TAKE 1 TABLET BY MOUTH EVERY DAY 08/12/23 Yes Juvencio Davila MD lisinopril 2.5 MG tablet Take 2.5 mg by mouth daily. 08/13/22 Yes Historical Provider, Melatonin 2.5 MG chewable tablet Chew 12 mg. Yes Historical Provider, methenamine hippurate (Hiprex) 1 g tablet 05/09/23 Yes Historical Provider, metoprolol succinate XL (Toprol-XL) 25 MG 24 hr tablet Take 25 mg by mouth daily. 07/05/22 Yes Historical Provider, Multiple Vitamin (multivitamin) tablet Take 1 tablet by mouth daily. Yes Historical Provider, simvastatin (Zocor) 40 MG tablet TAKE 1 TABLET BY MOUTH EVERY DAY AT NIGHT 06/27/23 Yes Juvencio Davila MD triamcinolone (Kenalog) 0.1 % oral paste Apply to affected area every 2 hours as needed. 06/27/23 Yes Juvencio Davila MD Valbenazine Tosylate (Ingrezza) 60 MG capsule Take 1 capsule by mouth daily. 08/05/23 Yes SOO Mtz CNP venlafaxine XR (Effexor XR) 150 MG 24 hr capsule Take 2 capsules (300 mg) by mouth daily. 05/27/23 Yes Juvencio Davila MD Review of Systems Constitutional: Positive for unexpected weight change. Negative for activity change, chills, fatigue and fever. Respiratory: Negative. Cardiovascular: Negative. Endocrine: Hot flashes Genitourinary: Negative for difficulty urinating. Neurological: Negative for dizziness and light-headedness. Psychiatric/Behavioral: Positive for decreased concentration. Negative for agitation, self-injury and suicidal ideas. The patient is nervous/anxious. Vitals: 08/19/23 1341 BP: 98/50 Pulse: 58 Resp: 18 Temp: 36.3 C (97.3 F) TempSrc: Infrared SpO2: 96% Weight: 155 lb (70.3 kg) Physical Exam Constitutional: General: She is not in acute distress. Appearance: Normal appearance. She is not ill-appearing. HENT: Head: Normocephalic and atraumatic. Ears: Comments: Hard of hearing Mouth/Throat: Mouth: Mucous membranes are moist. Pharynx: Oropharynx is clear. No oropharyngeal exudate or posterior oropharyngeal erythema. Eyes: Conjunctiva/sclera: Conjunctivae normal. Cardiovascular: Rate and Rhythm: Normal rate and regular rhythm. Pulmonary: Effort: Pulmonary effort is normal. Breath sounds: Normal breath sounds. Lymphadenopathy: Cervical: No cervical adenopathy. Neurological: Mental Status: She is alert and oriented to person, place, and time. Comments: Involuntary movements of the mouth minimal. Speech is now clear compared to previous visit. An electronic signature was used to authenticate this note. SOO Grant CNP 08/19/2023 3:34 PM documented in this encounter [facility] 08-19-2023 History of Presen t illness Narrative Patient was identified by name and Date of . Images from the original note were not included. 08/19/2023 Kamila Joseph (: 1955) is a 68 y.o. female , Established patient, here for evaluation of the following chief complaint(s): Follow-up ASSESSMENT/PLAN: 1. Tardive dyskinesia Assessment & Plan: Improving. Continue follow up with neurology. 2. Weight loss Assessment & Plan: Unsure etiology. Will check TSH. Orders: - TSH 3. Hot flashes - TSH 4. Essential hypertension Assessment & Plan: Controlled. Continue metoprolol 25 mg daily and lisinopril 2.5 mg daily Patient's FMLA continued for an additional month. At this time do not recommend driving, we will reevaluate this after further work-up by neurology. Follow up in about 1 month (around 09/19/2023). SUBJECTIVE/OBJECTIVE: HPI - Kamila Joseph (: 1955) is a 68 y.o. female , Established patient, here for the evaluation of the following chief complaint(s): Follow-up Presents with Daughter for follow up movement disorder and unsteadiness. Taking 1/2 of the klonopin twice daily, is steadier on her feet- that has helped, No falls. Is anxious but has had increased stress at home with getting surgery on neck-for stenosis on Aug 30. He needs a lot of help at home with his ADLs. Is doing better in regards to movement disorder, no longer with a dry mouth. Neurology increased the Ingrezza to 60 mg which is helping. Neurology ordered a CT of head being done on Saturday to further evaluate mild dementia. Was to return to work after 08/20/2023, but now is thinking she is not quite ready. Has been having hot flashes intermittently for the past few weeks. Not sure why. Not listed as side effect of medication. Prior to Admission medications Medication Sig Start Date End Date Taking? Authorizing Provider Ascorbic Acid (vitamin C) 1000 MG tablet Take 1,000 mg by mouth daily. 08/06/23 Yes Historical Provider, aspirin 81 MG EC tablet Take 81 mg by mouth daily. Yes Historical Provider, clonazePAM (KlonoPIN) 0.5 MG tablet Take 1 tablet (0.5 mg) by mouth 3 times daily. 06/27/23 12/24/23 Yes Juvencio Davila MD folic acid (Folvite) 1 MG tablet TAKE 1 TABLET BY MOUTH EVERY DAY 08/12/23 Yes Juvencio Davila MD lisinopril 2.5 MG tablet Take 2.5 mg by mouth daily. 08/13/22 Yes Historical Provider, Melatonin 2.5 MG chewable tablet Chew 12 mg. Yes Historical Provider, methenamine hippurate (Hiprex) 1 g tablet 05/09/23 Yes Historical Provider, metoprolol succinate XL (Toprol-XL) 25 MG 24 hr tablet Take 25 mg by mouth daily. 07/05/22 Yes Historical Provider, Multiple Vitamin (multivitamin) tablet Take 1 tablet by mouth daily. Yes Historical Provider, simvastatin (Zocor) 40 MG tablet TAKE 1 TABLET BY MOUTH EVERY DAY AT NIGHT 06/27/23 Yes Juvencio Davila MD triamcinolone (Kenalog) 0.1 % oral paste Apply to affected area every 2 hours as needed. 06/27/23 Yes Juvencio Davila MD Valbenazine Tosylate (Ingrezza) 60 MG capsule Take 1 capsule by mouth daily. 08/05/23 Yes SOO Mtz CNP venlafaxine XR (Effexor XR) 150 MG 24 hr capsule Take 2 capsules (300 mg) by mouth daily. 05/27/23 Yes Juvencio Davila MD Review of Systems Constitutional: Positive for unexpected weight change. Negative for activity change, chills, fatigue and fever. Respiratory: Negative. Cardiovascular: Negative. Endocrine: Hot flashes Genitourinary: Negative for difficulty urinating. Neurological: Negative for dizziness and light-headedness. Psychiatric/Behavioral: Positive for decreased concentration. Negative for agitation, self-injury and suicidal ideas. The patient is nervous/anxious. Vitals: 08/19/23 1341 BP: 98/50 Pulse: 58 Resp: 18 Temp: 36.3 C (97.3 F) TempSrc: Infrared SpO2: 96% Weight: 155 lb (70.3 kg) Physical Exam Constitutional: General: She is not in acute distress. Appearance: Normal appearance. She is not ill-appearing. HENT: Head: Normocephalic and atraumatic. Ears: Comments: Hard of hearing Mouth/Throat: Mouth: Mucous membranes are moist. Pharynx: Oropharynx is clear. No oropharyngeal exudate or posterior oropharyngeal erythema. Eyes: Conjunctiva/sclera: Conjunctivae normal. Cardiovascular: Rate and Rhythm: Normal rate and regular rhythm. Pulmonary: Effort: Pulmonary effort is normal. Breath sounds: Normal breath sounds. Lymphadenopathy: Cervical: No cervical adenopathy. Neurological: Mental Status: She is alert and oriented to person, place, and time. Comments: Involuntary movements of the mouth minimal. Speech is now clear compared to previous visit. An electronic signature was used to authenticate this note. SOO Grant CNP 08/19/2023 3:34 PM documented in this encounter [facility] 08-19-2023 Note Addended by: MERLYN ALBERTO on: 08/23/2023 07:36 AM Modules accepted: Orders [facility] 08-12-2023 Telephone encounter Note Prescription Request: Last medication check: 04/24/23 Last physical exam: 10/29/22 Next scheduled appointment: 08/15/23 Last date of refill on this medication 02/12/23 90 tablets 1 refill [facility] 08-12-2023 Miscellaneous Notes Prescription Request: Last medication check: 04/24/23 Last physical exam: 10/29/22 Next scheduled appointment: 08/15/23 Last date of refill on this medication 02/12/23 90 tablets 1 refill documented in this encounter [facility] 08-05-2023 Telephone encounter Note Requested Prescriptions Signed Prescriptions Disp Refills Valbenazine Tosylate (Ingrezza) 60 MG capsule 30 capsule 11 Sig: Take 1 capsule by mouth daily. Authorizing Provider: VIOLET CASTELLANOS [facility] 08-05-2023 Miscellaneous Notes Requested Prescriptions Signed Prescriptions Disp Refills Valbenazine Tosylate (Ingrezza) 60 MG capsule 30 capsule 11 Sig: Take 1 capsule by mouth daily. Authorizing Provider: VIOLET CASTELLANOS Patient is locked in to [facility] specialty for her Ingrezza therapy. I have pended the RX below for approval to send to the [facility] specialty in [facility]. Patient states she is down to 5 capsules remaining, so I will follow up with [facility] to ensure this is received within the correct time frame. Thanks! documented in this encounter [facility] 08-05-2023 Telephone encounter Note Patient is locked in to [facility] specialty for her Ingrezza therapy. I have pended the RX below for approval to send to the [facility] specialty in [facility]. Patient states she is down to 5 capsules remaining, so I will follow up with [facility] to ensure this is received within the correct time frame. Thanks! [facility] 08-01-2023 History of Presen t illness Narrative Department of Neurological Sciences Visit Note CHIEF COMPLAINT: Chief Complaint Patient presents with Follow-up Tardive Dyskinesia Short term memory concerns Main diagnoses: Tardive dyskinesia HISTORY OF PRESENT ILLNESS: The patient is a 68 y.o. female today presents to the Neurology clinic for follow up. She has had some improvement with her dyskinesia's. Her dry mouth is no longer existing. She states she still has some sores from occasionally biting the inside of her mouth. Her daughter states overall she has had significant improvement. --Daughter states that the her mother has been forgetting things. She says that the patient did not remember being here at the clinic an seeing us. She is aware of the current day of the week. She knows it is July and the year is 2022. She is able to answer 100-7 easily but cannot do the next ov 93-7. She can do the next 2 series easily however. She can spell the word chair forward and backward. She is able to name 13 animals in a minute. She was given 3 words to recall after 5 minutes she was able to recall 3 words without difficulty. She performed a partial MOCHA exam today. This is scanned into the chart. MoCA score is 27. Secundary diagnoses: Tardative dyskinesias Medications: Current Outpatient Medications Medication Sig Dispense Refill aspirin 81 MG EC tablet Take 81 mg by mouth daily. clonazePAM (KlonoPIN) 0.5 MG tablet Take 1 tablet (0.5 mg) by mouth 3 times daily. 90 tablet 5 folic acid (Folvite) 1 MG tablet TAKE 1 TABLET BY MOUTH EVERY DAY 90 tablet 1 lisinopril 2.5 MG tablet Take 2.5 mg by mouth daily. Melatonin 2.5 MG chewable tablet Chew 12 mg. methenamine hippurate (Hiprex) 1 g tablet metoprolol succinate XL (Toprol-XL) 25 MG 24 hr tablet Take 25 mg by mouth daily. Multiple Vitamin (multivitamin) tablet Take 1 tablet by mouth daily. simvastatin (Zocor) 40 MG tablet TAKE 1 TABLET BY MOUTH EVERY DAY AT NIGHT 90 tablet 1 triamcinolone (Kenalog) 0.1 % oral paste Apply to affected area every 2 hours as needed. 20 g 0 valbenazine tosylate (Ingrezza) 40 MG capsule Take 1 capsule (40 mg) by mouth daily. 30 capsule 11 valbenazine tosylate (Ingrezza) 40 MG capsule Take 1 capsule (40 mg) by mouth daily. 30 capsule 11 venlafaxine XR (Effexor XR) 150 MG 24 hr capsule Take 2 capsules (300 mg) by mouth daily. 180 capsule 1 No current facility-administered medications for this visit. Allergies: Vraylar [cariprazine] Social History: Social History Socioeconomic History Marital status: Spouse name: Not on file Number of children: Not on file Years of education: Not on file Highest education level: Not on file Occupational History Not on file Tobacco Use Smoking status: Never Smokeless tobacco: Never Substance and Sexual Activity Alcohol use: No Drug use: No Sexual activity: Not on file Other Topics Concern Not on file Social History Narrative Not on file Social Determinants of Health Financial Resource Strain: Not on file Food Insecurity: Not on file Transportation Needs: Not on file Physical Activity: Not on file Stress: Not on file Social Connections: Not on file Intimate Partner Violence: Not on file Housing Stability: Not on file Family History: Family History Problem Relation Name Age of Onset Breast cancer Mother's Sister Substance Abuse Mother Heart disease Father Heart disease Mother REVIEW OF SYSTEMS: Review of Systems Constitutional: Negative. HENT: Negative. Eyes: Negative. Respiratory: Negative. Cardiovascular: Negative. Gastrointestinal: Negative. Endocrine: Negative. Genitourinary: Negative. Musculoskeletal: Negative. Skin: Negative. Allergic/Immunologic: Negative. Neurological: Negative. Hematological: Negative. Psychiatric/Behavioral: Positive for confusion. PHYSICAL EXAM: Vitals: BP 106/79 (BP Location: Right arm) Pulse 83 Temp 36.5 C (97.7 F) Physical Exam Constitutional: Appearance: Normal appearance. HENT: Head: Normocephalic and atraumatic. Nose: Nose normal. Mouth/Throat: Mouth: Mucous membranes are moist. Pharynx: Oropharynx is clear. Eyes: General: Vision grossly intact. Gaze aligned appropriately. Extraocular Movements: Extraocular movements intact. Conjunctiva/sclera: Conjunctivae normal. Pupils: Pupils are equal, round, and reactive to light. Neck: Trachea: Trachea and phonation normal. Cardiovascular: Rate and Rhythm: Normal rate and regular rhythm. Pulses: Normal pulses. Heart sounds: Normal heart sounds. Pulmonary: Effort: Pulmonary effort is normal. Breath sounds: Normal breath sounds. Abdominal: General: Abdomen is flat. Bowel sounds are normal. Palpations: Abdomen is soft. Musculoskeletal: General: Normal range of motion. Cervical back: Normal range of motion and neck supple. Skin: General: Skin is warm and dry. Neurological: General: No focal deficit present. Mental Status: She is alert and oriented to person, place, and time. Mental status is at baseline. Cranial Nerves: Cranial nerves 2-12 are intact. Deep Tendon Reflexes: Reflexes are normal and symmetric. Reflex Scores: Tricep reflexes are 2+ on the right side and 2+ on the left side. Bicep reflexes are 2+ on the right side and 2+ on the left side. Brachioradialis reflexes are 2+ on the right side and 2+ on the left side. Patellar reflexes are 2+ on the right side and 2+ on the left side. Achilles reflexes are 2+ on the right side and 2+ on the left side. Comments: Neurological exam reveals the presence of orofacial dyskinesias which has been improved by 50%. During visit patient have MoCA test evaluation and her final score was 27. Psychiatric: Attention and Perception: Attention normal. Mood and Affect: Mood normal. Speech: Speech normal. Behavior: Behavior normal. Behavior is cooperative. Thought Content: Thought content normal. Cognition and Memory: Cognition normal. Judgment: Judgment normal. Impression: Diagnosis Plan 1. Mild dementia without behavioral disturbance, psychotic disturbance, mood disturbance, or anxiety, unspecified dementia type (HCC) CT head wo IV contrast Amyloid 42/40 ratio plasma - Miscellaneous Test APOE alzheimer risk - Miscellaneous Test Amyloid 42/40 ratio plasma - Miscellaneous Test APOE alzheimer risk - Miscellaneous Test Vitamin B12 Vitamin B12 2. Tardive dyskinesia Plan: 1. We are going to perform a CT scan of the brain without contrast to evaluate whether patient cognitive decline is secondary to microangiopathy or atrophy. Patient is very claustrophobic and she cannot have an MRI. 2. In addition we are going to obtain laboratory testing including vitamin B12 and thyroid function test, sedimentation rate, C-reactive Protain and amyloid 42:40 ratio 3. In addition we are going to try to increase patient Ingrezza from 40 mg p.o. daily to 80 mg p.o. daily. 4. Patient will return to the neurology clinic in 4 weeks for further evaluation. Time spent in evaluation and treatment was 50 minutes documented in this encounter [facility] 08-01-2023 Miscellaneous Notes Addended by: MERLYN ALBERTO on: 08/23/2023 07:29 AM Modules accepted: Orders documented in this encounter [facility] 08-01-2023 Note Addended by: MERLYN ALBERTO on: 08/23/2023 07:29 AM Modules accepted: Orders [facility] 08-01-2023 Note Addended by: MERLYN ALBERTO on: 08/23/2023 07:29 AM Modules accepted: Orders [facility] 07-24-2023 Evaluation + Plan note Associated Problem(s): Anxiety Anxiety is not as bad now that the movement disorder is improving. Due to high risk for falls, recommend decreasing dose of Klonopin to half a tablet twice daily and follow-up with neurology next week. [facility] 07-24-2023 Miscellaneous Notes Associated Problem(s): Anxiety Anxiety is not as bad now that the movement disorder is improving. Due to high risk for falls, recommend decreasing dose of Klonopin to half a tablet twice daily and follow-up with neurology next week. Associated Problem(s): Tardive dyskinesia Improving. Follow-up with neurology as directed documented in this encounter [facility] 07-24-2023 Evaluation + Plan note Associated Problem(s): Tardive dyskinesia Improving. Follow-up with neurology as directed [facility] 07-24-2023 History of Presen t illness Narrative Patient was identified by name and Date of . Images from the original note were not included. 07/24/2023 Kamila Joseph (: 1955) is a 68 y.o. female , Established patient, here for evaluation of the following chief complaint(s): Other (Discuss going back to work ) ASSESSMENT/PLAN: 1. Tardive dyskinesia Assessment & Plan: Improving. Follow-up with neurology as directed 2. Anxiety Assessment & Plan: Anxiety is not as bad now that the movement disorder is improving. Due to high risk for falls, recommend decreasing dose of Klonopin to half a tablet twice daily and follow-up with neurology next week. Discussion with patient and daughter regarding returning to work. I do not recommend that she return to work until her mood is stable and her movement disorder is better controlled. I recommend that she follow-up with us at the end of the month and we can reevaluate the situation at that time. Follow up for with specialist and , with primary care provider as scheduled. SUBJECTIVE/OBJECTIVE: HPI - Kamila Joseph (: 1955) is a 68 y.o. female , Established patient, here for the evaluation of the following chief complaint(s): Other (Discuss going back to work ) Presents with daughter. Reports that she wants to go back to work. Daughter reports that she has been unsteady, has fallen a few times (without injury) and seems very forgetful. Continues to be anxious. The clonazepam she is taking only twice daily. Helps. She is taking a nap in the afternoon every day. Daughter is now helping manage medications and has taken over paying bills for mom as she has forgotten to pay them. 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 Tardive dyskinesia is improving however is still interfering with speech. Sees neurology next . Started new medications which seems to be helping. Mouth sores are better. Able to keep mouth closed now. Psychiatry appt not november. Prior to Admission medications Medication Sig Start Date End Date Taking? Authorizing Provider aspirin 81 MG EC tablet Take 81 mg by mouth daily. Yes Historical Provider, clonazePAM (KlonoPIN) 0.5 MG tablet Take 1 tablet (0.5 mg) by mouth 3 times daily. 06/27/23 12/24/23 Yes Juvencio Davila MD folic acid (Folvite) 1 MG tablet TAKE 1 TABLET BY MOUTH EVERY DAY 02/12/23 Yes Juvencio Davila MD lisinopril 2.5 MG tablet Take 2.5 mg by mouth daily. 08/13/22 Yes Historical Provider, Melatonin 2.5 MG chewable tablet Chew 12 mg. Yes Historical Provider, metoprolol succinate XL (Toprol-XL) 25 MG 24 hr tablet Take 25 mg by mouth daily. 07/05/22 Yes Historical Provider, Multiple Vitamin (multivitamin) tablet Take 1 tablet by mouth daily. Yes Historical Provider, simvastatin (Zocor) 40 MG tablet TAKE 1 TABLET BY MOUTH EVERY DAY AT NIGHT 06/27/23 Yes Juvencio Davila MD triamcinolone (Kenalog) 0.1 % oral paste Apply to affected area every 2 hours as needed. 06/27/23 Yes Juvencio Davila MD valbenazine tosylate (Ingrezza) 40 MG capsule Take 1 capsule (40 mg) by mouth daily. 06/27/23 06/26/24 Yes Jie Miranda MD valbenazine tosylate (Ingrezza) 40 MG capsule Take 1 capsule (40 mg) by mouth daily. 07/01/23 06/30/24 Yes SOO Mtz CNP venlafaxine XR (Effexor XR) 150 MG 24 hr capsule Take 2 capsules (300 mg) by mouth daily. 05/27/23 Yes Juvencio Davila MD methenamine hippurate (Hiprex) 1 g tablet 05/09/23 Historical Provider, benztropine (Cogentin) 1 MG tablet Take 1 mg twice daily x 5 days, then take 2 mg in morning and 1 mg in evening daily x 5 days, then take 2 mg in morning and 2 mg in evening daily Patient not taking: Reported on 07/24/2023 06/19/23 07/24/23 SOO Grant CNP phentermine (Adipex-P) 37.5 MG tablet Take 1 tablet (37.5 mg) by mouth every morning (before breakfast). 05/27/23 07/24/23 Juvencio Davila MD Review of Systems Constitutional: Negative for activity change, chills, fatigue and fever. Respiratory: Negative. Cardiovascular: Negative. Genitourinary: Negative for difficulty urinating. Neurological: Negative for dizziness and light-headedness. Psychiatric/Behavioral: Positive for decreased concentration. Negative for agitation, self-injury and suicidal ideas. The patient is nervous/anxious. Vitals: 07/24/23 1304 BP: 130/80 Pulse: 82 Resp: 24 Temp: 36.4 C (97.5 F) TempSrc: Infrared SpO2: 99% Weight: 159 lb 12.8 oz (72.5 kg) Physical Exam Constitutional: General: She is not in acute distress. Appearance: Normal appearance. She is not ill-appearing. HENT: Head: Normocephalic and atraumatic. Ears: Comments: Hard of hearing Cardiovascular: Rate and Rhythm: Normal rate and regular rhythm. Pulmonary: Effort: Pulmonary effort is normal. Breath sounds: Normal breath sounds. Neurological: Mental Status: She is alert. Comments: Abnormal movements noted of the mouth and face- much improved from when I saw her several months ago in April. An electronic signature was used to authenticate this note. SOO Grant CNP 07/24/2023 5:41 PM documented in this encounter [facility] 07-24-2023 Instructions SOO Grant CNP - 07/24/2023 1:00 PM EDT Need to be stabilized with mood/anxiety and have movement disorder better before returning to work. Decrease dose of klonopin to 1/2 tablet twice daily to see if helps with steadiness. documented in this encounter [facility] 07-03-2023 Telephone encounter Note Done, printed, Crystal will picker operator today. [facility] 07-03-2023 Miscellaneous Notes Done, printed, Crystal will picker operator today. Okay to extend her off work note through this weekend S Patient daughter calling, patient needs extended doctors note B ongoing A Patient needs extended work note through the end of the week. Patient had insurance issues getting medication and has not started them yet so symptoms have not gotten any better. Daughter also states patient may now have covid on top of it due to recent exposure. R TE sent to office for extended work note, advised to monitor symptoms and if she ends up testing positive for covid to call back for care advice. Please contact gabriela Ram at [phone] as to how to obtain work letter. Reason for Disposition Caller has NON-URGENT medicine question about med that PCP or specialist prescribed and triager unable to answer question Protocols used: Medication Question [id number] documented in this encounter [facility] [employer] 07-03-2023 Telephone encounter Note Okay to extend her off work note through this weekend [facility] 07-03-2023 Telephone encounter Note S Patient daughter calling, patient needs extended doctors note B ongoing A Patient needs extended work note through the end of the week. Patient had insurance issues getting medication and has not started them yet so symptoms have not gotten any better. Daughter also states patient may now have covid on top of it due to recent exposure. R TE sent to office for extended work note, advised to monitor symptoms and if she ends up testing positive for covid to call back for care advice. Please contact gabriela Leanna at [phone] as to how to obtain work letter. Reason for Disposition Caller has NON-URGENT medicine question about med that PCP or specialist prescribed and triager unable to answer question Protocols used: Medication Question [id number] [facility] 07-01-2023 Telephone encounter Note Requested Prescriptions Signed Prescriptions Disp Refills valbenazine tosylate (Ingrezza) 40 MG capsule 30 capsule 11 Sig: Take 1 capsule (40 mg) by mouth daily. Authorizing Provider: VIOLET CASTELLANOS [facility] 07-01-2023 Miscellaneous Notes Requested Prescriptions Signed Prescriptions Disp Refills valbenazine tosylate (Ingrezza) 40 MG capsule 30 capsule 11 Sig: Take 1 capsule (40 mg) by mouth daily. Authorizing Provider: VIOLET CASTELLANOS I spoke with Kamila's daughter, Leanna for new start consultation of Ingrezza. I explained that per her insurance it must be filled with [facility] and that once they process her copay, we can further evaluate copay assistance. Leanna is aware and will call me back if there are an barriers for delivery to her mom. RX is pended for [facility] below. Thanks! documented in this encounter [facility] 07-01-2023 Telephone encounter Note I spoke with Kamila's daughter, Leanna for new start consultation of Ingrezza. I explained that per her insurance it must be filled with [facility] and that once they process her copay, we can further evaluate copay assistance. Leanna is aware and will call me back if there are an barriers for delivery to her mom. RX is pended for [facility] below. Thanks! [facility] 06-27-2023 Evaluation + Plan note Associated Problem(s): Anxiety Klonopin 0.5 mg 3 times daily as needed OARRS report done, no inconsistencies, CS agreement signed today [facility] 06-27-2023 Miscellaneous Notes Associated Problem(s): Anxiety Klonopin 0.5 mg 3 times daily as needed OARRS report done, no inconsistencies, CS agreement signed today Associated Problem(s): Tardive dyskinesia Continue Cogentin at current dose, get prescription that neurology has sent in and follow-up with neurology as needed. Kenalog in [place] to be applied every 2 hours to the affected areas. documented in this encounter [facility] 06-27-2023 Evaluation + Plan note Associated Problem(s): Tardive dyskinesia Continue Cogentin at current dose, get prescription that neurology has sent in and follow-up with neurology as needed. Kenalog in [place] to be applied every 2 hours to the affected areas. [facility] 06-27-2023 History of Presen t illness Narrative Images from the original note were not included. 06/27/2023 Kamila Joseph (: 1955) is a 67 y.o. female , Established patient, here for evaluation of the following chief complaint(s): Follow-up (Drug induced movement disorder) ASSESSMENT/PLAN: 1. Tardive dyskinesia Assessment & Plan: Continue Cogentin at current dose, get prescription that neurology has sent in and follow-up with neurology as needed. Kenalog in [place] to be applied every 2 hours to the affected areas. Orders: - clonazePAM (KlonoPIN) 0.5 MG tablet; Take 1 tablet (0.5 mg) by mouth 3 times daily., Starting Maura 06/27/2023, Until Sat12/24/2023, Normal 2. Anxiety Assessment & Plan: Klonopin 0.5 mg 3 times daily as needed OARRS report done, no inconsistencies, CS agreement signed today Follow up if symptoms worsen or fail to improve. SUBJECTIVE/OBJECTIVE: LIZETH Montez comes in today for follow-up on her tardive dyskinesia, she has actually developed sores on her lips and in her mouth. So we will see if we can get her some Kenalog in [place] to use. She also is having a lot of anxiety so we will start her on some Klonopin 0.5 mg 3 times a day as needed, Rx sent. She did see the neurologist today who feels that the Cogentin is probably causing dry mouth which is contributing to her sores and prescribed a new medication that was sent to a specialty pharmacy. He also mentioned possible Botox injections in the future. Review of Systems Constitutional: Negative for chills and fever. HENT: Positive for mouth sores. Vitals: 06/27/23 1524 BP: 114/68 Pulse: 102 SpO2: 98% Weight: 160 lb 3.2 oz (72.7 kg) Height: 5' 3.25 (1.607 m) Physical Exam Vitals and nursing note reviewed. Constitutional: General: She is not in acute distress. Appearance: Normal appearance. She is obese. HENT: Mouth/Throat: Comments: Continuous movements of her mouth, she has sores on her lips and in her mouth. Neurological: Mental Status: She is alert. An electronic signature was used to authenticate this note. Juvencio Davila MD 06/27/2023 3:53 PM documented in this encounter [facility] 06-27-2023 History of Presen t illness Narrative Department of Neurological Sciences Initial Consult Note 06/27/2023 CHIEF COMPLAINT: Chief Complaint Patient presents with New Patient Tardive Dyskinesia Reason for Consult: Tardive Dyskinesia HISTORY OF PRESENT ILLNESS: The patient is a 67 y.o. female who presents with complaint of tardive dyskinesia. She is present with her Daughter today for her visit. Patient was apparently taking Risperdone. She was placed on Vraylar and taken off the Risperdone and this is when her dyskinesias began. Patient developed repetitive movements affecting her face mouth and tongue. This is affecting both swallowing as well as patient speech. Recently patient was started on Cogentin has a treatment patient tolerated the dyskinesis. This has caused severe dry mouth and now patient has developed ulcers in the danny as well as in the oral mucosa. This began trials of several other medications including cogentin, geodon, and then back to risperdone. Currently today patient is not on risperdone. She was started on a Cogentin titration and has had about 20% improvement with facial dyskinesias but unfortunately she had a Below painful ulcers in the mouth and tongue. --Today she has severe mouth dyskinesia's. She is suffers from dry mouth and has sores from her mouth being so dry. --She is positive for hypertension, insomnia, depression, sleep apnea, IBS, hyperlipidemia, GERD. --There is family history of substance abuse, heart disease, and breast cancer. --Patient is a non smoker. She does not drink alcohol. Past Medical History: Past Medical History: Diagnosis Date Depression GERD (gastroesophageal reflux disease) Heat intolerance Hyperlipidemia Hypertension IBS (irritable bowel syndrome) Insomnia Sleep apnea Past Surgical History: Past Surgical History: Procedure Laterality Date COLONOSCOPY 5 years ago TONSILLECTOMY (HISTORICAL) WRIST SURGERY Medications: Current Outpatient Medications Medication Sig Dispense Refill aspirin 81 MG EC tablet Take 81 mg by mouth daily. benztropine (Cogentin) 1 MG tablet Take 1 mg twice daily x 5 days, then take 2 mg in morning and 1 mg in evening daily x 5 days, then take 2 mg in morning and 2 mg in evening daily (Patient taking differently: Take 1 mg by mouth in the morning and 1 mg at noon and 1 mg in the evening and 1 mg before bedtime.) 60 tablet 0 folic acid (Folvite) 1 MG tablet TAKE 1 TABLET BY MOUTH EVERY DAY 90 tablet 1 lidocaine (Xylocaine) 2 % solution Take 15 mL by mouth 3 times daily as needed for mild pain (1-3) for up to 10 days. 100 mL 1 lisinopril 2.5 MG tablet Take 2.5 mg by mouth daily. Melatonin 2.5 MG chewable tablet Chew 12 mg. methenamine hippurate (Hiprex) 1 g tablet metoprolol succinate XL (Toprol-XL) 25 MG 24 hr tablet Take 25 mg by mouth daily. Multiple Vitamin (multivitamin) tablet Take 1 tablet by mouth daily. venlafaxine XR (Effexor XR) 150 MG 24 hr capsule Take 2 capsules (300 mg) by mouth daily. 180 capsule 1 clonazePAM (KlonoPIN) 0.5 MG tablet Take 1 tablet (0.5 mg) by mouth 3 times daily. 90 tablet 5 phentermine (Adipex-P) 37.5 MG tablet Take 1 tablet (37.5 mg) by mouth every morning (before breakfast). 30 tablet 0 simvastatin (Zocor) 40 MG tablet TAKE 1 TABLET BY MOUTH EVERY DAY AT NIGHT 90 tablet 1 triamcinolone (Kenalog) 0.1 % oral paste Apply to affected area every 2 hours as needed. 20 g 0 valbenazine tosylate (Ingrezza) 40 MG capsule Take 1 capsule (40 mg) by mouth daily. 30 capsule 11 No current facility-administered medications for this visit. Allergies: Vraylar [cariprazine] Social History: Social History Socioeconomic History Marital status: Spouse name: Not on file Number of children: Not on file Years of education: Not on file Highest education level: Not on file Occupational History Not on file Tobacco Use Smoking status: Never Smokeless tobacco: Never Substance and Sexual Activity Alcohol use: No Drug use: No Sexual activity: Not on file Other Topics Concern Not on file Social History Narrative Not on file Social Determinants of Health Financial Resource Strain: Not on file Food Insecurity: Not on file Transportation Needs: Not on file Physical Activity: Not on file Stress: Not on file Social Connections: Not on file Intimate Partner Violence: Not on file Housing Stability: Not on file Family History: Family History Problem Relation Name Age of Onset Breast cancer Mother's Sister Substance Abuse Mother Heart disease Father Heart disease Mother REVIEW OF SYSTEMS: Review of Systems Constitutional: Positive for activity change, appetite change, chills and fever. HENT: Positive for dental problem, mouth sores and rhinorrhea. Eyes: Negative. Respiratory: Positive for cough. Cardiovascular: Negative. Gastrointestinal: Negative. Endocrine: Positive for cold intolerance and heat intolerance. Genitourinary: Negative. Musculoskeletal: Negative. Skin: Negative. Allergic/Immunologic: Negative. Neurological: Positive for dizziness, tremors, speech difficulty and headaches. Hematological: Bruises/bleeds easily. Psychiatric/Behavioral: Positive for confusion and decreased concentration. The patient is nervous/anxious. PHYSICAL EXAM: Vitals: BP 125/84 (BP Location: Left arm) Pulse (!) 111 Temp 36.3 C (97.3 F) (Infrared) Ht 5' 3.25 (1.607 m) Wt 160 lb 3.2 oz (72.7 kg) BMI 28.15 kg/m Physical Exam Constitutional: Appearance: Normal appearance. HENT: Head: Normocephalic and atraumatic. Nose: Nose normal. Mouth/Throat: Mouth: Mucous membranes are moist. Pharynx: Oropharynx is clear. Eyes: General: Vision grossly intact. Gaze aligned appropriately. Extraocular Movements: Extraocular movements intact. Conjunctiva/sclera: Conjunctivae normal. Pupils: Pupils are equal, round, and reactive to light. Neck: Trachea: Trachea and phonation normal. Cardiovascular: Rate and Rhythm: Normal rate and regular rhythm. Pulses: Normal pulses. Heart sounds: Normal heart sounds. Pulmonary: Effort: Pulmonary effort is normal. Breath sounds: Normal breath sounds. Abdominal: General: Abdomen is flat. Bowel sounds are normal. Palpations: Abdomen is soft. Musculoskeletal: General: Normal range of motion. Cervical back: Normal range of motion and neck supple. Skin: General: Skin is warm and dry. Neurological: General: No focal deficit present. Mental Status: She is alert and oriented to person, place, and time. Mental status is at baseline. Cranial Nerves: Cranial nerve deficit present. Deep Tendon Reflexes: Reflexes are normal and symmetric. Reflex Scores: Tricep reflexes are 2+ on the right side and 2+ on the left side. Bicep reflexes are 2+ on the right side and 2+ on the left side. Brachioradialis reflexes are 2+ on the right side and 2+ on the left side. Patellar reflexes are 2+ on the right side and 2+ on the left side. Achilles reflexes are 2+ on the right side and 2+ on the left side. Comments: Neurological exam reveals the presence of rhythmic repetitive movement affecting the facial muscles as well as the tongue. Psychiatric: Attention and Perception: Attention normal. Mood and Affect: Mood normal. Speech: Speech normal. Behavior: Behavior normal. Behavior is cooperative. Thought Content: Thought content normal. Cognition and Memory: Cognition normal. Judgment: Judgment normal. Impression: Diagnosis Plan 1. Tardive dyskinesia [facility] Neurology Plan: 1. Since patient already have severe dryness in her oral mucosa we are not going to be able to increase patient dose of Cogentin. 2. Therefore, we are going to try to get prior authorization for Ingrezza 40 mg 1 tablet p.o. daily for a week and if patient Weltman persists we will increase it to 80 mg p.o. nightly. 3. Patient will return to the neurology clinic in 4 weeks for further evaluation thank you. JIE MIRANDA MD documented in this encounter [facility] 06-27-2023 Telephone encounter Note Prescription Request: Last medication check: 04/24/23 Last physical exam: 10/29/22 Next scheduled appointment: 06/27/23 Last date of refill on this medication 12/28/22 90 day 1 refill [facility] 06-27-2023 Miscellaneous Notes Prescription Request: Last medication check: 04/24/23 Last physical exam: 10/29/22 Next scheduled appointment: 06/27/23 Last date of refill on this medication 12/28/22 90 day 1 refill documented in this encounter [facility] 06-26-2023 Telephone encounter Note Name of caller: Crystal Relation to patient: family member patient and daughter Contact phone number: [phone] Appointment scheduled with: Dr. Miranda Appointment date & time: 06/27/23, 10:00a Reason for visit (are you having any symptoms) : Tardive Dyskinesia Transportation issues/ concerns: N/A Special accommodations? ( wheel chair, etc) : N/A Current medications: N/A Any refills need: N/A Any chronic conditions the provider should be aware of: N/A [facility] 06-26-2023 Miscellaneous Notes Name of caller: Leanna Relation to patient: family member patient and daughter Contact phone number: [phone] Appointment scheduled with: Dr. Miranda Appointment date & time: 06/27/23, 10:00a Reason for visit (are you having any symptoms) : Tardive Dyskinesia Transportation issues/ concerns: N/A Special accommodations? ( wheel chair, etc) : N/A Current medications: N/A Any refills need: N/A Any chronic conditions the provider should be aware of: N/A documented in this encounter [facility] 06-19-2023 Evaluation + Plan note Associated Problem(s): Tardive dyskinesia Not improving. Stop risperidone 4 mg, restart cogentin. Plan- stop risperidone 4 mg (LD this am) Start cogentin 1 mg this evening, then cogentin 1 mg twice daily x 5 days, then cogentin 2 mg in am and 1 mg in pm x 5 days, then cogentin 2 mg in am and 2 mg in pm. Follow up with Dr. Davila as scheduled. Referral placed to neurology. Get established with psychiatry. Dry mouth- use biotene mouth wash 3 times daily, sips of water throughout the day. Will rx for lidocaine viscous for pain. [facility] 06-19-2023 Miscellaneous Notes Associated Problem(s): Tardive dyskinesia Not improving. Stop risperidone 4 mg, restart cogentin. Plan- stop risperidone 4 mg (LD this am) Start cogentin 1 mg this evening, then cogentin 1 mg twice daily x 5 days, then cogentin 2 mg in am and 1 mg in pm x 5 days, then cogentin 2 mg in am and 2 mg in pm. Follow up with Dr. Davila as scheduled. Referral placed to neurology. Get established with psychiatry. Dry mouth- use biotene mouth wash 3 times daily, sips of water throughout the day. Will rx for lidocaine viscous for pain. Discussed with Dr. Davila. Ok to stop the risperidone, go back on the cogentin and try that again, would recommend neurology referral along with getting established with psych. ---- Called patient. She is currently taking risperidone 4 mg daily. She had stopped the cogentin 1 mg twice daily after about 7 days on 06/10/2023. when her symptoms had not improved and went back onto the risperidone on 06/10/2023 (OV) in hopes that it was going to help. On 06/10/23 she states she had started back on the risperidone 6 mg , but felt dizzy, so went down to 4 mg daily. Reports she feels good as far as depression/mood but thinks the movement disorder is worse. Was referred to [facility] and is scheduled with them in Nov... is on a cancellation list. She states she would like to try the cogentin again. Plan- stop risperidone 4 mg (LD this am) Start cogentin 1 mg this evening, then cogentin 1 mg twice daily x 5 days, then cogentin 2 mg in am and 1 mg in pm x 5 days, then cogentin 2 mg in am and 2 mg in pm. Follow up with Dr. Davila as scheduled. Referral placed to neurology. Get established with psychiatry. Dry mouth- use biotene mouth wash 3 times daily, sips of water throughout the day. Will rx for lidocaine viscous for pain. Denies si/hi. S: Patient spoke with [facility] nurse regarding swollen tongue B: Onset of symptoms/concern ongoing but worsening. Tardive dyskinesia first noted at appointment on 05-08-23 with Adriane Hubbard CNP. Also noted on appointment on 05-27 and 06-[address] Davila A: Patient reports ongoing swollen tongue that's been worsening. Also experiencing involuntary movement of lips and tongue. Tongue is becoming raw, even drinking water will be painful. Rates pain at 2/10. Denies difficulty breathing, painful swallowing, injury, fever, or chills. R: Second level triage with Adriane Hubbard CNP. She will talk it over with Dr. Davila and give the patient a call back. Return call to patient letting her know to expect a call from the office later today. Did discuss possibly try drink cold fluids which might help with the pain for temporary relief. Patient understands care advice. No further needs at this time. Patient instructed to call back with new or worsening symptoms. Reason for Disposition Pain in tongue, mouth, or tooth Mild pain (2/10) and ongoing problem Protocols used: Tongue [id number] documented in this encounter [facility] 06-19-2023 Telephone encounter Note Discussed with Dr. Davila. Ok to stop the risperidone, go back on the cogentin and try that again, would recommend neurology referral along with getting established with psych. ---- Called patient. She is currently taking risperidone 4 mg daily. She had stopped the cogentin 1 mg twice daily after about 7 days on 06/10/2023. when her symptoms had not improved and went back onto the risperidone on 06/10/2023 (OV) in hopes that it was going to help. On 06/10/23 she states she had started back on the risperidone 6 mg , but felt dizzy, so went down to 4 mg daily. Reports she feels good as far as depression/mood but thinks the movement disorder is worse. Was referred to [facility] and is scheduled with them in Nov... is on a cancellation list. She states she would like to try the cogentin again. Plan- stop risperidone 4 mg (LD this am) Start cogentin 1 mg this evening, then cogentin 1 mg twice daily x 5 days, then cogentin 2 mg in am and 1 mg in pm x 5 days, then cogentin 2 mg in am and 2 mg in pm. Follow up with Dr. Davila as scheduled. Referral placed to neurology. Get established with psychiatry. Dry mouth- use biotene mouth wash 3 times daily, sips of water throughout the day. Will rx for lidocaine viscous for pain. Denies si/hi. [facility] 06-19-2023 Telephone encounter Note S: Patient spoke with [facility] nurse regarding swollen tongue B: Onset of symptoms/concern ongoing but worsening. Tardive dyskinesia first noted at appointment on 05-08-23 with Adriane Hubbard CNP. Also noted on appointment on 05-27 and 06-[address] Davila A: Patient reports ongoing swollen tongue that's been worsening. Also experiencing involuntary movement of lips and tongue. Tongue is becoming raw, even drinking water will be painful. Rates pain at 2/10. Denies difficulty breathing, painful swallowing, injury, fever, or chills. R: Second level triage with Adriane Hubbard CNP. She will talk it over with Dr. Davila and give the patient a call back. Return call to patient letting her know to expect a call from the office later today. Did discuss possibly try drink cold fluids which might help with the pain for temporary relief. Patient understands care advice. No further needs at this time. Patient instructed to call back with new or worsening symptoms. Reason for Disposition Pain in tongue, mouth, or tooth Mild pain (2/10) and ongoing problem Protocols used: Tongue [id number] T [facility] 06-13-2023 Telephone encounter Note Have not yet received sleep study report. Faxed order to [facility] without it, will send sleep study to them once we receive it. [facility] order scanned in. T [facility] 06-13-2023 Miscellaneous Notes Have not yet received sleep study report. Faxed order to [facility] without it, will send sleep study to them once we receive it. [facility] order scanned in. GUILLE sent for sleep study to [facility]. Will send with order form. Thank you, that is the preprinted form that I was looking for, we already got her setting at 9 cm of H2O, paperwork filled out They can't do a pre-printed form unless we send them an order first because they need all of her info. Filled in a form for you to complete, I will request her previous sleep study to send with it as they will likely need this as well. Also need to find out her settings unless you have that info. Thanks! Right now this patient is not able to do a sleep study due to her facial movements from her medication, we are trying to get this problem resolved. Can we contact [facility] and have them send us a preprinted order so we can order a new CPAP machine for her at her previous setting. Spoke to patient last sleep study was done 10 years ago at [facility], I am not able to access her old chart right now for some reason, are you able to see if we have the previous report? If not I will send a request for it. Thank you! Name of caller: Luisito Contact phone number: [phone] Relationship to Patient: [facility] sleep studies Provider: Juvencio Davila Practice: [facility] Chief Complaint/Reason for Call: Good morning, we received a titration sleep study order for patient, however, we need patient's previous results. If previous results cannot be obtained, a split study can be ordered instead. Thank you. Order for sleep study with PAP titration entered, please schedule at patient's preferred location Spoke with patient she is agreeable to doing a titration test. If her last sleep study was 10 years ago then we probably need to set her up for a new titration to make sure that that level is still okay. I called [facility] the settings they have on file is 9 CM. He said he is not sure if she still needs that or needs to be retested. Patient says her machine wont even power on so she cant check to find out what her settings are and that her last sleep study was 10 years or more ago and I do not see it in her chart. She uses [facility] so I am going to call them and see if I can get the information To send an order for a CPAP we need to know what her settings are Name of caller: Kamila Joseph Contact phone number: [phone] Relationship to Patient: patient Provider: Dr. Davila Practice: [facility] Chief Complaint/Reason for Call: Pt asking for an order for c-pap to be sent to [facility] [place] at [phone]. Please advise. Thank you. Best time of day caller can be reached: ANY Patient advised that office/PCP has 24-48 business hours to return their call: Yes documented in this encounter [facility] 06-13-2023 Telephone encounter Note GUILLE sent for sleep study to [facility]. Will send with order form. [facility] 06-13-2023 Telephone encounter Note Thank you, that is the preprinted form that I was looking for, we already got her setting at 9 cm of H2O, paperwork filled out [facility] 06-13-2023 Telephone encounter Note They can't do a pre-printed form unless we send them an order first because they need all of her info. Filled in a form for you to complete, I will request her previous sleep study to send with it as they will likely need this as well. Also need to find out her settings unless you have that info. Thanks! [facility] 06-12-2023 Telephone encounter Note Right now this patient is not able to do a sleep study due to her facial movements from her medication, we are trying to get this problem resolved. Can we contact [facility] and have them send us a preprinted order so we can order a new CPAP machine for her at her previous setting. [facility] 06-12-2023 Telephone encounter Note Spoke to patient last sleep study was done 10 years ago at [facility], I am not able to access her old chart right now for some reason, are you able to see if we have the previous report? If not I will send a request for it. Thank you! [facility] 06-12-2023 Telephone encounter Note Name of caller: Luisito Contact phone number: [phone] Relationship to Patient: [facility] sleep studies Provider: Juvencio Davila Practice: [facility] Chief Complaint/Reason for Call: Good morning, we received a titration sleep study order for patient, however, we need patient's previous results. If previous results cannot be obtained, a split study can be ordered instead. Thank you. [facility] 06-10-2023 Evaluation + Plan note Associated Problem(s): TERESA on CPAP We will contact [facility] to get a preprinted order to order a new CPAP. [facility] 06-10-2023 Miscellaneous Notes Associated Problem(s): TERESA on CPAP We will contact [facility] to get a preprinted order to order a new CPAP. Associated Problem(s): Drug-induced movement disorder We will restart her Risperdal, she has some at home and stop the Cogentin, this is per the patient's family's request since she did better when she was on the Risperdal after switching back from the Vraylar follow-up in 1 week. documented in this encounter [facility] 06-10-2023 Evaluation + Plan note Associated Problem(s): Drug-induced movement disorder We will restart her Risperdal, she has some at home and stop the Cogentin, this is per the patient's family's request since she did better when she was on the Risperdal after switching back from the Vraylar follow-up in 1 week. [facility] 06-10-2023 History of Presen t illness Narrative Patient verified by last name and date of . Images from the original note were not included. 06/10/2023 Kamila Joseph (: 1955) is a 67 y.o. female , Established patient, here for evaluation of the following chief complaint(s): Depression, Anxiety, and Follow-up (2) ASSESSMENT/PLAN: 1. Drug-induced movement disorder Assessment & Plan: We will restart her Risperdal, she has some at home and stop the Cogentin, this is per the patient's family's request since she did better when she was on the Risperdal after switching back from the Vraylar follow-up in 1 week. 2. TERESA on CPAP Assessment & Plan: We will contact [facility] to get a preprinted order to order a new CPAP. Follow up in about 1 week (around 06/17/2023). SUBJECTIVE/OBJECTIVE: LIZETH Montez comes in today for follow-up on her extrapyramidal symptoms that started when she was switched from Risperdal to Vraylar, she was put back on Risperdal and the symptoms improved but never went away so we stopped the Risperdal put her on Cogentin which is supposed to improve the the symptoms however she feels they are worse now than they had been. Her family agrees that she was much better on the Risperdal after changing back from the Vraylar and would like to retry that at the same dose that she was on prior to the Vraylar. She also needs a new CPAP machine and she is unable to do a CPAP titration at this time but the extrapyramidal symptoms so we will see if we can get her a new pH CPAP machine at her previous settings. Review of Systems Neurological: Positive for facial asymmetry and speech difficulty. Vitals: 06/10/23 1454 BP: 133/82 Pulse: 94 SpO2: 98% Weight: 167 lb 9.6 oz (76 kg) Height: 5' 3.25 (1.607 m) Physical Exam Vitals and nursing note reviewed. Constitutional: General: She is not in acute distress. Appearance: Normal appearance. She is obese. Neurological: Mental Status: She is alert. Comments: Continual mouth movements. An electronic signature was used to authenticate this note. Juvencio Davila MD 06/10/2023 3:52 PM documented in this encounter [facility] 06-03-2023 Telephone encounter Note Order for sleep study with PAP titration entered, please schedule at patient's preferred location [facility] 05-31-2023 Telephone encounter Note Spoke with patient she is agreeable to doing a titration test. [facility] 05-31-2023 Telephone encounter Note If her last sleep study was 10 years ago then we probably need to set her up for a new titration to make sure that that level is still okay. [facility] 05-31-2023 Telephone encounter Note I called [facility] the settings they have on file is 9 CM. He said he is not sure if she still needs that or needs to be retested. [facility] 05-31-2023 Telephone encounter Note Patient says her machine wont even power on so she cant check to find out what her settings are and that her last sleep study was 10 years or more ago and I do not see it in her chart. She uses [facility] so I am going to call them and see if I can get the information [facility] 05-31-2023 Telephone encounter Note To send an order for a CPAP we need to know what her settings are [facility] 05-31-2023 Telephone encounter Note Name of caller: Kamila Joseph Contact phone number: [phone] Relationship to Patient: patient Provider: Dr. Davila Practice: [facility] Chief Complaint/Reason for Call: Pt asking for an order for c-pap to be sent to [facility] [place] at [phone]. Please advise. Thank you. Best time of day caller can be reached: ANY Patient advised that office/PCP has 24-48 business hours to return their call: Yes [facility] 05-27-2023 Evaluation + Plan note Associated Problem(s): Recurrent major depressive disorder, in full remission (HCC) Partial remission, will increase her Wellbutrin to 300 mg daily [facility] 05-27-2023 Evaluation + Plan note Associated Problem(s): Anxiety Partial remission, will increase her Wellbutrin to 300 mg daily T [facility] 05-27-2023 Miscellaneous Notes Associated Problem(s): Recurrent major depressive disorder, in full remission (HCC) Partial remission, will increase her Wellbutrin to 300 mg daily Associated Problem(s): Anxiety Partial remission, will increase her Wellbutrin to 300 mg daily Associated Problem(s): Class 1 obesity due to excess calories without serious comorbidity with body mass index (BMI) of 30.0 to 30.9 in adult Continued weight loss, refill Adipex 37.5, Rx sent, OARRS report done, no inconsistencies. Associated Problem(s): Tardive dyskinesia Resolving off of Vraylar, will stop the Risperdal also. documented in this encounter [facility] 05-27-2023 Evaluation + Plan note Associated Problem(s): Class 1 obesity due to excess calories without serious comorbidity with body mass index (BMI) of 30.0 to 30.9 in adult Continued weight loss, refill Adipex 37.5, Rx sent, OARRS report done, no inconsistencies. [facility] 05-27-2023 Evaluation + Plan note Associated Problem(s): Tardive dyskinesia Resolving off of Vraylar, will stop the Risperdal also. [facility] 05-27-2023 History of Presen t illness Narrative Patient verified by last name and date of . Waist measurement - 43 Images from the original note were not included. 05/27/2023 Kamila Joseph (: 1955) is a 67 y.o. female , Established patient, here for evaluation of the following chief complaint(s): tardive dyskinesia, Depression, Anxiety, Follow-up (2 week follow up ), Weight Management (4 week - Adipex ), and Laceration (Lower leg on while on vacation- bleeding pretty bad applied pressure with gauze and coban soaked gauze 7-8hrs and reapplied pressure has not removed dressing Saturday yet advised if continued severe bleeding needs to go to ER or Urgent Care for possible cautery pt understands ) ASSESSMENT/PLAN: 1. Recurrent major depressive disorder, in full remission (HCC) Assessment & Plan: Partial remission, will increase her Wellbutrin to 300 mg daily Orders: - venlafaxine XR (Effexor XR) 150 MG 24 hr capsule; Take 2 capsules (300 mg) by mouth daily., Starting Sat05/27/2023, Normal 2. Anxiety Assessment & Plan: Partial remission, will increase her Wellbutrin to 300 mg daily 3. Class 1 obesity due to excess calories without serious comorbidity with body mass index (BMI) of 30.0 to 30.9 in adult Assessment & Plan: Continued weight loss, refill Adipex 37.5, Rx sent, OARRS report done, no inconsistencies. Orders: - phentermine (Adipex-P) 37.5 MG tablet; Take 1 tablet (37.5 mg) by mouth every morning (before breakfast)., Starting 05/27/2023, Until Sat06/26/2023, Normal 4. Tardive dyskinesia Assessment & Plan: Resolving off of Vraylar, will stop the Risperdal also. Follow up in about 2 weeks (around 06/10/2023). SUBJECTIVE/OBJECTIVE: LIZETH Cruz comes in today for follow-up on a couple of issues 1 is her depression, she was started on Vraylar he had had tardive dyskinesia symptoms so it was stopped and she was put back on her Risperdal which is actually the same class so we will have to stop also. Her symptoms have improved significantly, still occasionally she will have some rabbiting but that continues to improve. She will need to have an increase in her antidepressant so we will increase her Wellbutrin to 300 mg daily. She also is here for follow-up on her phentermine she has lost another 5 pounds so we will put her back on the Adipex for another month. Review of Systems Constitutional: Negative for chills and fever. HENT: Negative for ear pain, rhinorrhea and sinus pressure. Respiratory: Negative for shortness of breath. Cardiovascular: Negative for chest pain and palpitations. Psychiatric/Behavioral: Positive for dysphoric mood. Negative for self-injury and suicidal ideas. The patient is nervous/anxious. Vitals: 05/27/23 0956 BP: 100/68 Pulse: 90 SpO2: 97% Weight: 169 lb 12.8 oz (77 kg) Height: 5' 3.25 (1.607 m) Physical Exam Vitals and nursing note reviewed. Constitutional: General: She is not in acute distress. Appearance: Normal appearance. She is obese. HENT: Head: Normocephalic and atraumatic. Right Ear: Tympanic membrane, ear canal and external ear normal. Left Ear: Tympanic membrane, ear canal and external ear normal. Mouth/Throat: Mouth: Mucous membranes are moist. Pharynx: Oropharynx is clear. Eyes: Extraocular Movements: Extraocular movements intact. Pupils: Pupils are equal, round, and reactive to light. Cardiovascular: Rate and Rhythm: Normal rate and regular rhythm. Heart sounds: Normal heart sounds. No murmur heard. Pulmonary: Effort: Pulmonary effort is normal. Breath sounds: Normal breath sounds. Musculoskeletal: Cervical back: Neck supple. Lymphadenopathy: Cervical: No cervical adenopathy. Neurological: Mental Status: She is alert. An electronic signature was used to authenticate this note. Juvencio Dvaila MD 05/27/2023 3:43 PM documented in this encounter [facility] 05-08-2023 Evaluation + Plan note Associated Problem(s): Essential hypertension Controlled, continue metoprolol 25 mg daily, lisinopril 2.5 mg daily [facility] 05-08-2023 Miscellaneous Notes Associated Problem(s): Essential hypertension Controlled, continue metoprolol 25 mg daily, lisinopril 2.5 mg daily Associated Problem(s): Recurrent major depressive disorder, in full remission (HCC) Uncontrolled, denies any suicidal or homicidal ideation. Will have her continue her venlafaxine, due to recent onset of movement disorder possibly secondary to Vraylar or withdrawal from risperidone, we will stop Vraylar and restart risperidone at 4 mg daily. Consulted with psychiatry. Will refer to psychiatry in [place] per family request Associated Problem(s): Tardive dyskinesia [id number] dyskinesias. VS stable. Possibly from Vraylar or withdrawal from risperidone. Consulted with psychiatry (Dr. Shin) and will stop Vraylar, restart risperidone at decreased dose of 4 mg daily. Continue venlafaxine. Refer to psychiatry. Close follow up documented in this encounter [facility] 05-08-2023 Miscellaneous Notes Associated Problem(s): Essential hypertension Controlled, continue metoprolol 25 mg daily, lisinopril 2.5 mg daily Associated Problem(s): Recurrent major depressive disorder, in full remission (HCC) Uncontrolled, denies any suicidal or homicidal ideation. Will have her continue her venlafaxine, due to recent onset of movement disorder possibly secondary to Vraylar or withdrawal from risperidone, we will stop Vraylar and restart risperidone at 4 mg daily. Consulted with psychiatry. Will refer to psychiatry in [place] per family request Associated Problem(s): Tardive dyskinesia [id number] dyskinesias. VS stable. Possibly from Vraylar or withdrawal from risperidone. Consulted with psychiatry (Dr. Shin) and will stop Vraylar, restart risperidone at decreased dose of 4 mg daily. Continue venlafaxine. Refer to psychiatry. Close follow up Addended by: ADRIANE HUBBARD on: 05/09/2023 12:43 PM Modules accepted: Level of Service documented in this encounter [facility] 05-08-2023 Evaluation + Plan note Associated Problem(s): Recurrent major depressive disorder, in full remission (HCC) Uncontrolled, denies any suicidal or homicidal ideation. Will have her continue her venlafaxine, due to recent onset of movement disorder possibly secondary to Vraylar or withdrawal from risperidone, we will stop Vraylar and restart risperidone at 4 mg daily. Consulted with psychiatry. Will refer to psychiatry in [place] per family request [facility] 05-08-2023 Evaluation + Plan note Associated Problem(s): Tardive dyskinesia Oxf-xyngch-znboevr dyskinesias. VS stable. Possibly from Vraylar or withdrawal from risperidone. Consulted with psychiatry (Dr. Shin) and will stop Vraylar, restart risperidone at decreased dose of 4 mg daily. Continue venlafaxine. Refer to psychiatry. Close follow up [facility] 05-08-2023 History of Presen t illness Narrative Images from the original note were not included. 05/08/2023 Kamila Joseph (: 1955) is a 67 y.o. female , Established patient, here for evaluation of the following chief complaint(s): Medication Reaction (Symptoms started 1-2 days after starting medication-last day of taking Vraylar was 05/07/23/), involuntary muscle movements (In mouth/), Shaking, Speech Problem, Dizziness (/), and Agitation ASSESSMENT/PLAN: 1. Tardive dyskinesia Assessment & Plan: Uic-koanow-sfxuuzy dyskinesias. VS stable. Possibly from Vraylar or withdrawal from risperidone. Consulted with psychiatry (Dr. Shin) and will stop Vraylar, restart risperidone at decreased dose of 4 mg daily. Continue venlafaxine. Refer to psychiatry. Close follow up 2. Drug-induced movement disorder - Comprehensive metabolic panel 3. Essential hypertension Assessment & Plan: Controlled, continue metoprolol 25 mg daily, lisinopril 2.5 mg daily 4. Recurrent major depressive disorder, in full remission (HCC) Assessment & Plan: Uncontrolled, denies any suicidal or homicidal ideation. Will have her continue her venlafaxine, due to recent onset of movement disorder possibly secondary to Vraylar or withdrawal from risperidone, we will stop Vraylar and restart risperidone at 4 mg daily. Consulted with psychiatry. Will refer to psychiatry in [place] per family request Follow up in about 2 weeks (around 05/22/2023). SUBJECTIVE/OBJECTIVE: HPI - Kamila Joseph (: 1955) is a 67 y.o. female , Established patient, here for the evaluation of the following chief complaint(s): Medication Reaction (Symptoms started 1-2 days after starting medication-last day of taking Vraylar was 05/07/23/), involuntary muscle movements (In mouth/), Shaking, Speech Problem, Dizziness (/), and Agitation Presents with daughter Leanna, patient recently stopped Risperdal 6 mg daily and switched to Vraylar 1.5 mg daily approximately 1 week ago and started experiencing agitation , involuntary mouth moving , eye watering, grinding teeth, change in the way her voice sounds. She thinks the symptoms are worsening. Denies skin reaction, rash , fever, difficulty breathing, difficulty swallowing, or chest pain. Last dose of Vraylar May 07, 2023. Prior to Admission medications Medication Sig Start Date End Date Taking? Authorizing Provider Cariprazine (Vraylar) 1.5 MG capsule Take 1 capsule (1.5 mg) by mouth daily. 04/24/23 Juvencio Davila MD folic acid (Folvite) 1 MG tablet TAKE 1 TABLET BY MOUTH EVERY DAY 02/12/23 Juvencio Davila MD lisinopril 2.5 MG tablet Take 2.5 mg by mouth daily. 08/13/22 Historical Provider, Melatonin 2.5 MG chewable tablet Chew 10 mg. Historical Provider, metoprolol succinate XL (Toprol-XL) 25 MG 24 hr tablet Take 25 mg by mouth daily. 07/05/22 Historical Provider, phentermine (Adipex-P) 37.5 MG tablet Take 1 tablet (37.5 mg) by mouth every morning (before breakfast). 04/24/23 05/24/23 Juvencio Davila MD simvastatin (Zocor) 40 MG tablet TAKE 1 TABLET BY MOUTH EVERY DAY AT NIGHT 12/28/22 Juvencio Davila MD venlafaxine XR (Effexor XR) 150 MG 24 hr capsule TAKE 1 CAPSULE BY MOUTH EVERY DAY 04/01/23 SOO Hunter CNP venlafaxine XR (Effexor XR) 75 MG 24 hr capsule TAKE 1 CAPSULE BY MOUTH DAILY WITH A 150 MG CAPSULE 04/01/23 Shyla Bustillo APRN - [facility] Review of Systems Constitutional: Negative for activity change, chills, fatigue and fever. HENT: Negative. Respiratory: Negative for cough, chest tightness and shortness of breath. Cardiovascular: Negative for chest pain and palpitations. Gastrointestinal: Negative. Genitourinary: Negative for difficulty urinating. Neurological: Positive for dizziness, speech difficulty and light-headedness. Negative for tremors. Psychiatric/Behavioral: Positive for agitation, decreased concentration, dysphoric mood and sleep disturbance. Negative for behavioral problems, confusion, hallucinations, self-injury and suicidal ideas. The patient is nervous/anxious. Vitals: 05/08/23 1055 BP: 125/80 Pulse: 99 Resp: 24 Temp: 36.7 C (98 F) TempSrc: Infrared SpO2: 99% Weight: 169 lb 12.8 oz (77 kg) Physical Exam Constitutional: General: She is not in acute distress. Appearance: Normal appearance. She is not ill-appearing. HENT: Head: Normocephalic and atraumatic. Right Ear: Tympanic membrane normal. Left Ear: Tympanic membrane normal. Nose: Nose normal. No congestion or rhinorrhea. Mouth/Throat: Mouth: Mucous membranes are moist. Pharynx: Oropharynx is clear. No oropharyngeal exudate or posterior oropharyngeal erythema. Eyes: Extraocular Movements: Extraocular movements intact. Conjunctiva/sclera: Conjunctivae normal. Pupils: Pupils are equal, round, and reactive to light. Cardiovascular: Rate and Rhythm: Normal rate and regular rhythm. Pulses: Normal pulses. Heart sounds: Normal heart sounds. Pulmonary: Effort: Pulmonary effort is normal. No respiratory distress. Breath sounds: Normal breath sounds. Lymphadenopathy: Cervical: No cervical adenopathy. Skin: General: Skin is warm. Neurological: Mental Status: She is alert and oriented to person, place, and time. Motor: No weakness. Coordination: Coordination normal. Comments: Intermittent teeth grinding, jkv-tfaay-tctaacy dyskinesia noted. Not tardive upper extremity movements noted. Psychiatric: Attention and Perception: Attention normal. Mood and Affect: Mood normal. Affect is flat. Speech: Speech is slurred. Behavior: Behavior is cooperative. Thought Content: Thought content normal. Cognition and Memory: Memory is impaired. An electronic signature was used to authenticate this note. SOO Grant CNP 05/08/2023 7:22 AM Traffic Sign Erection Supervisor for Intimate and Non Intimate Exam Traffic Sign Erection Supervisor was declined Traffic Sign Erection Supervisor: na documented in this encounter [facility] 05-08-2023 History of Presen t illness Narrative Images from the original note were not included. 05/08/2023 Kamila Joseph (: 1955) is a 67 y.o. female , Established patient, here for evaluation of the following chief complaint(s): Medication Reaction (Symptoms started 1-2 days after starting medication-last day of taking Vraylar was 05/07/23/), involuntary muscle movements (In mouth/), Shaking, Speech Problem, Dizziness (/), and Agitation ASSESSMENT/PLAN: 1. Tardive dyskinesia Assessment & Plan: Nkx-irvtbv-kqnbguk dyskinesias. VS stable. Possibly from Vraylar or withdrawal from risperidone. Consulted with psychiatry (Dr. Shin) and will stop Vraylar, restart risperidone at decreased dose of 4 mg daily. Continue venlafaxine. Refer to psychiatry. Close follow up 2. Drug-induced movement disorder - Comprehensive metabolic panel 3. Essential hypertension Assessment & Plan: Controlled, continue metoprolol 25 mg daily, lisinopril 2.5 mg daily 4. Recurrent major depressive disorder, in full remission (HCC) Assessment & Plan: Uncontrolled, denies any suicidal or homicidal ideation. Will have her continue her venlafaxine, due to recent onset of movement disorder possibly secondary to Vraylar or withdrawal from risperidone, we will stop Vraylar and restart risperidone at 4 mg daily. Consulted with psychiatry. Will refer to psychiatry in [place] per family request Follow up in about 2 weeks (around 05/22/2023). SUBJECTIVE/OBJECTIVE: HPI - Kamila Joseph (: 1955) is a 67 y.o. female , Established patient, here for the evaluation of the following chief complaint(s): Medication Reaction (Symptoms started 1-2 days after starting medication-last day of taking Vraylar was 05/07/23/), involuntary muscle movements (In mouth/), Shaking, Speech Problem, Dizziness (/), and Agitation Presents with daughter Leanna, patient recently stopped Risperdal 6 mg daily and switched to Vraylar 1.5 mg daily approximately 1 week ago and started experiencing agitation , involuntary mouth moving , eye watering, grinding teeth, change in the way her voice sounds. She thinks the symptoms are worsening. Denies skin reaction, rash , fever, difficulty breathing, difficulty swallowing, or chest pain. Last dose of Vraylar May 07, 2023. Prior to Admission medications Medication Sig Start Date End Date Taking? Authorizing Provider Cariprazine (Vraylar) 1.5 MG capsule Take 1 capsule (1.5 mg) by mouth daily. 04/24/23 Juvencio Davila MD folic acid (Folvite) 1 MG tablet TAKE 1 TABLET BY MOUTH EVERY DAY 02/12/23 Juvencio Davila MD lisinopril 2.5 MG tablet Take 2.5 mg by mouth daily. 08/13/22 Historical Provider, Melatonin 2.5 MG chewable tablet Chew 10 mg. Historical Provider, metoprolol succinate XL (Toprol-XL) 25 MG 24 hr tablet Take 25 mg by mouth daily. 07/05/22 Historical Provider, phentermine (Adipex-P) 37.5 MG tablet Take 1 tablet (37.5 mg) by mouth every morning (before breakfast). 04/24/23 05/24/23 Juvencio Davila MD simvastatin (Zocor) 40 MG tablet TAKE 1 TABLET BY MOUTH EVERY DAY AT NIGHT 12/28/22 Juvencio Davila MD venlafaxine XR (Effexor XR) 150 MG 24 hr capsule TAKE 1 CAPSULE BY MOUTH EVERY DAY 04/01/23 SOO Hunter CNP venlafaxine XR (Effexor XR) 75 MG 24 hr capsule TAKE 1 CAPSULE BY MOUTH DAILY WITH A 150 MG CAPSULE 04/01/23 Shyla Bustillo APRN - [facility] Review of Systems Constitutional: Negative for activity change, chills, fatigue and fever. HENT: Negative. Respiratory: Negative for cough, chest tightness and shortness of breath. Cardiovascular: Negative for chest pain and palpitations. Gastrointestinal: Negative. Genitourinary: Negative for difficulty urinating. Neurological: Positive for dizziness, speech difficulty and light-headedness. Negative for tremors. Psychiatric/Behavioral: Positive for agitation, decreased concentration, dysphoric mood and sleep disturbance. Negative for behavioral problems, confusion, hallucinations, self-injury and suicidal ideas. The patient is nervous/anxious. Vitals: 05/08/23 1055 BP: 125/80 Pulse: 99 Resp: 24 Temp: 36.7 C (98 F) TempSrc: Infrared SpO2: 99% Weight: 169 lb 12.8 oz (77 kg) Physical Exam Constitutional: General: She is not in acute distress. Appearance: Normal appearance. She is not ill-appearing. HENT: Head: Normocephalic and atraumatic. Right Ear: Tympanic membrane normal. Left Ear: Tympanic membrane normal. Nose: Nose normal. No congestion or rhinorrhea. Mouth/Throat: Mouth: Mucous membranes are moist. Pharynx: Oropharynx is clear. No oropharyngeal exudate or posterior oropharyngeal erythema. Eyes: Extraocular Movements: Extraocular movements intact. Conjunctiva/sclera: Conjunctivae normal. Pupils: Pupils are equal, round, and reactive to light. Cardiovascular: Rate and Rhythm: Normal rate and regular rhythm. Pulses: Normal pulses. Heart sounds: Normal heart sounds. Pulmonary: Effort: Pulmonary effort is normal. No respiratory distress. Breath sounds: Normal breath sounds. Lymphadenopathy: Cervical: No cervical adenopathy. Skin: General: Skin is warm. Neurological: Mental Status: She is alert and oriented to person, place, and time. Motor: No weakness. Coordination: Coordination normal. Comments: Intermittent teeth grinding, kni-lwiad-xzabvkq dyskinesia noted. Not tardive upper extremity movements noted. Psychiatric: Attention and Perception: Attention normal. Mood and Affect: Mood normal. Affect is flat. Speech: Speech is slurred. Behavior: Behavior is cooperative. Thought Content: Thought content normal. Cognition and Memory: Memory is impaired. An electronic signature was used to authenticate this note. SOO Grant CNP 05/08/2023 7:22 AM Traffic Sign Erection Supervisor for Intimate and Non Intimate Exam Traffic Sign Erection Supervisor was declined Traffic Sign Erection Supervisor: na documented in this encounter [facility] 05-08-2023 Instructions SOO Grant CNP - 05/08/2023 11:00 AM EDT Stop cariprazine 1.5 mg daily. Restart risperidone 4 mg daily (decreased dose from 6 mg) documented in this encounter [facility] 05-08-2023 Instructions SOO Grant CNP - 05/08/2023 11:00 AM EDT Stop cariprazine 1.5 mg daily. Restart risperidone 4 mg daily (decreased dose from 6 mg) documented in this encounter [facility] 05-08-2023 Note Addended by: ADRIANE ROGERS on: 05/09/2023 12:43 PM Modules accepted: Level of Service [facility] 04-24-2023 Evaluation + Plan note Associated Problem(s): Recurrent major depressive disorder, in full remission (HCC) Uncontrolled, will have her continue her venlafaxine but we will change her Risperdal to Vraylar 1.5 mg and will increase from there. Rx sent, follow-up in 4 weeks. [facility] 04-24-2023 Evaluation + Plan note Associated Problem(s): Class 1 obesity due to excess calories without serious comorbidity with body mass index (BMI) of 30.0 to 30.9 in adult Further weight loss is seen, will refill her phentermine for another month and follow-up in 4 weeks for weight check. [facility] 04-24-2023 Miscellaneous Notes Associated Problem(s): Recurrent major depressive disorder, in full remission (HCC) Uncontrolled, will have her continue her venlafaxine but we will change her Risperdal to Vraylar 1.5 mg and will increase from there. Rx sent, follow-up in 4 weeks. Associated Problem(s): Class 1 obesity due to excess calories without serious comorbidity with body mass index (BMI) of 30.0 to 30.9 in adult Further weight loss is seen, will refill her phentermine for another month and follow-up in 4 weeks for weight check. documented in this encounter [facility] [employer] 04-24-2023 History of Presen t illness Narrative Traffic Sign Erection Supervisor for Intimate and Non Intimate Exam Traffic Sign Erection Supervisor was declined Traffic Sign Erection Supervisor: na Images from the original note were not included. 04/24/2023 Kamila Joseph (: 1955) is a 67 y.o. female , Established patient, here for evaluation of the following chief complaint(s): No chief complaint on file. ASSESSMENT/PLAN: 1. Recurrent major depressive disorder, in full remission (HCC) Assessment & Plan: Uncontrolled, will have her continue her venlafaxine but we will change her Risperdal to Vraylar 1.5 mg and will increase from there. Rx sent, follow-up in 4 weeks. 2. Class 1 obesity due to excess calories without serious comorbidity with body mass index (BMI) of 30.0 to 30.9 in adult Assessment & Plan: Further weight loss is seen, will refill her phentermine for another month and follow-up in 4 weeks for weight check. Orders: - phentermine (Adipex-P) 37.5 MG tablet; Take 1 tablet (37.5 mg) by mouth every morning (before breakfast)., Starting Sat04/24/2023, Until Sat05/24/2023, Normal Follow up in about 4 weeks (around 05/22/2023). SUBJECTIVE/OBJECTIVE: HPI - Kamila comes in today for a weight check for follow-up on her phentermine, she lost another 5 pounds, she says over the way we have got to do something about this depression. She says her depression is progressively getting worse she currently is on 2025 mg of venlafaxine and Risperdal 6 mg she says she had a complete lack of motivation and can stay in bed till noon, some hopeless helpless feelings and anhedonia. She gives no indication of suicidal ideation or harm herself or anyone else. Review of Systems Constitutional: Negative for chills and fever. HENT: Negative for ear pain, rhinorrhea and sinus pressure. Respiratory: Negative for shortness of breath. Cardiovascular: Negative for chest pain and palpitations. Gastrointestinal: Negative for constipation and diarrhea. Genitourinary: Negative for dysuria, frequency and urgency. Psychiatric/Behavioral: Positive for dysphoric mood. Negative for self-injury, sleep disturbance and suicidal ideas. The patient is nervous/anxious. Vitals: 04/24/23 1308 BP: 122/78 Pulse: 79 Resp: 16 SpO2: 96% Weight: 174 lb 6.4 oz (79.1 kg) Physical Exam Vitals and nursing note reviewed. Constitutional: General: She is not in acute distress. Appearance: Normal appearance. HENT: Head: Normocephalic and atraumatic. Mouth/Throat: Mouth: Mucous membranes are moist. Pharynx: Oropharynx is clear. Eyes: Extraocular Movements: Extraocular movements intact. Pupils: Pupils are equal, round, and reactive to light. Cardiovascular: Rate and Rhythm: Normal rate and regular rhythm. Heart sounds: Normal heart sounds. No murmur heard. Pulmonary: Effort: Pulmonary effort is normal. Breath sounds: Normal breath sounds. Abdominal: General: Bowel sounds are normal. Palpations: Abdomen is soft. Tenderness: There is no abdominal tenderness. Musculoskeletal: Cervical back: Neck supple. Lymphadenopathy: Cervical: No cervical adenopathy. Neurological: Mental Status: She is alert. Psychiatric: Attention and Perception: Attention normal. Mood and Affect: Mood is anxious and depressed. Affect is flat. An electronic signature was used to authenticate this note. Juvencio Davila MD 04/24/2023 1:40 PM documented in this encounter [facility] 03-26-2023 Evaluation + Plan note Associated Problem(s): Class 1 obesity due to excess calories without serious comorbidity with body mass index (BMI) of 31.0 to 31.9 in adult Phentermine 37.5 mg once a day follow-up in 4 weeks for weight check. [facility] 03-26-2023 Evaluation + Plan note Associated Problem(s): Greater trochanteric bursitis of right hip Injection procedure: Location right trochanteric bursa Consent: Verbal Consent Obtained-Discussed risks including hypo/hyperpigmentation, fat atrophy, steroid flare, bleeding and infection and potential consequences of over use of steroids. Prep: Betadine. Anesthesia: 2% lidocaine. Medication: 1 ml depomedrol 40 mg. Needle: 25 gauge 1.5 in. needle. Complications: No Complications, Hemostasis achieved. [facility]: 35265-970-91 LOT: [id number] [facility]: 04098-013-72 LOT: [id number]. [facility] 03-26-2023 Miscellaneous Notes Associated Problem(s): Class 1 obesity due to excess calories without serious comorbidity with body mass index (BMI) of 31.0 to 31.9 in adult Phentermine 37.5 mg once a day follow-up in 4 weeks for weight check. Associated Problem(s): Greater trochanteric bursitis of right hip Injection procedure: Location right trochanteric bursa Consent: Verbal Consent Obtained-Discussed risks including hypo/hyperpigmentation, fat atrophy, steroid flare, bleeding and infection and potential consequences of over use of steroids. Prep: Betadine. Anesthesia: 2% lidocaine. Medication: 1 ml depomedrol 40 mg. Needle: 25 gauge 1.5 in. needle. Complications: No Complications, Hemostasis achieved. [facility]: 17913-002-99 LOT: [id number] [facility]: 16817-530-21 LOT: [id number]. documented in this encounter [facility] [employer] 03-26-2023 History of Presen t illness Narrative Images from the original note were not included. 03/26/2023 Kamila Joseph (: 1955) is a 67 y.o. female , Established patient, here for evaluation of the following chief complaint(s): Hip Pain (Right hip- asking for inj) ASSESSMENT/PLAN: 1. Greater trochanteric bursitis of right hip Assessment & Plan: Injection procedure: Location right trochanteric bursa Consent: Verbal Consent Obtained-Discussed risks including hypo/hyperpigmentation, fat atrophy, steroid flare, bleeding and infection and potential consequences of over use of steroids. Prep: Betadine. Anesthesia: 2% lidocaine. Medication: 1 ml depomedrol 40 mg. Needle: 25 gauge 1.5 in. needle. Complications: No Complications, Hemostasis achieved. [facility]: 62356-385-04 LOT: [id number] [facility]: 13052-985-21 LOT: [id number]. Orders: - Large Joint Injection/Arthrocentesis - methylPREDNISolone acetate (DEPO-Medrol) injection 40 mg; 40 mg, Intra-artICUlar, Once, On Sat03/26/23 at 1430, For 1 dose - lidocaine (Xylocaine) 2 % injection 4 mL; 4 mL, Injection, Once, On Sat03/26/23 at 1430, For 1 dose 2. Class 1 obesity due to excess calories without serious comorbidity with body mass index (BMI) of 31.0 to 31.9 in adult Assessment & Plan: Phentermine 37.5 mg once a day follow-up in 4 weeks for weight check. Orders: - phentermine (Adipex-P) 37.5 MG tablet; Take 1 tablet (37.5 mg) by mouth every morning (before breakfast)., Starting 03/26/2023, Until [place] 04/25/2023, Normal Follow up in about 4 weeks (around 04/23/2023) for weight check. SUBJECTIVE/OBJECTIVE: HPI -Kamila comes in today for 2 issues 1 she would like to get back on phentermine for weight loss she is trying to lose weight for her granddaughters wedding in a month or so and she is already lost 32 pounds. Her body mass index is 31.4 so she does qualify. She also is having increase in her right trochanteric bursitis she would like another injection she says the last 1 was last May. Review of Systems Constitutional: Negative for chills and fever. Respiratory: Negative for shortness of breath. Cardiovascular: Negative for chest pain and palpitations. Gastrointestinal: Negative for abdominal pain, constipation and diarrhea. Musculoskeletal: Positive for myalgias. Negative for arthralgias and gait problem. Neurological: Negative for weakness and numbness. Vitals: 03/26/23 1328 BP: 119/64 Pulse: 76 SpO2: 96% Weight: 179 lb 3.2 oz (81.3 kg) Height: 5' 3.25 (1.607 m) Physical Exam Vitals and nursing note reviewed. Constitutional: General: She is not in acute distress. Appearance: Normal appearance. HENT: Head: Normocephalic and atraumatic. Mouth/Throat: Mouth: Mucous membranes are moist. Pharynx: Oropharynx is clear. Eyes: Extraocular Movements: Extraocular movements intact. Pupils: Pupils are equal, round, and reactive to light. Cardiovascular: Rate and Rhythm: Normal rate and regular rhythm. Heart sounds: Normal heart sounds. No murmur heard. Pulmonary: Effort: Pulmonary effort is normal. Breath sounds: Normal breath sounds. Musculoskeletal: Cervical back: Neck supple. Comments: Pain to palpation over the right greater trochanter, she has no pain with internal/external rotation of the hip or flexion or extension of the hip. Lymphadenopathy: Cervical: No cervical adenopathy. Neurological: Mental Status: She is alert. An electronic signature was used to authenticate this note. Juvencio Davila MD 03/26/2023 2:18 PM documented in this encounter [facility] 02-12-2023 Telephone encounter Note Prescription Request: Last medication check: 05/01/22 Last physical exam: 10/29/22 Next scheduled appointment: 10/30/23 Last date of refill on this medication 08/13/22 90 days 1 refill [facility] 02-12-2023 Miscellaneous Notes Prescription Request: Last medication check: 05/01/22 Last physical exam: 10/29/22 Next scheduled appointment: 10/30/23 Last date of refill on this medication 08/13/22 90 days 1 refill documented in this encounter [facility] 12-31-2022 Telephone encounter Note Prescription Request: Last medication check: 05/01/22 Last physical exam: 10/29/22 Next scheduled appointment: 10/30/23 Last date of refill on this medication 07/04/22 [facility] 12-31-2022 Miscellaneous Notes Prescription Request: Last medication check: 05/01/22 Last physical exam: 10/29/22 Next scheduled appointment: 10/30/23 Last date of refill on this medication 07/04/22 documented in this encounter [facility] 12-28-2022 Telephone encounter Note Prescription Request: Last medication check: 05/01/22 Last physical exam: 10/29/22 Next scheduled appointment: 10/30/23 Last date of refill on this medication 07/04/22 [facility] 12-28-2022 Miscellaneous Notes Prescription Request: Last medication check: 05/01/22 Last physical exam: 10/29/22 Next scheduled appointment: 10/30/23 Last date of refill on this medication 07/04/22 documented in this encounter [facility] 10-29-2022 Evaluation + Plan note Associated Problem(s): Hyperlipidemia LDL goal <100 Controlled, continue simvastatin 40 mg nightly [facility] 10-29-2022 Miscellaneous Notes Associated Problem(s): Hyperlipidemia LDL goal <100 Controlled, continue simvastatin 40 mg nightly Associated Problem(s): Recurrent major depressive disorder, in full remission (HCC) Remission, venlafaxine XR 225 mg daily and Risperdal 4 mg daily Associated Problem(s): Anxiety Remission, venlafaxine XR 225 mg daily and Risperdal 4 mg daily Associated Problem(s): Prediabetes Currently on no medications, very strict low-carb diet. Associated Problem(s): Obesity (BMI 35.0-39.9 without comorbidity) Contrave 8-90, 2 tablets twice a day, follow-up in 4 weeks for weight check Associated Problem(s): Essential hypertension Controlled, continue lisinopril 2.5 mg and metoprolol 25 mg daily documented in this encounter [facility] 10-29-2022 Evaluation + Plan note Associated Problem(s): Recurrent major depressive disorder, in full remission (HCC) Remission, venlafaxine XR 225 mg daily and Risperdal 4 mg daily [facility] 10-29-2022 Evaluation + Plan note Associated Problem(s): Anxiety Remission, venlafaxine XR 225 mg daily and Risperdal 4 mg daily [facility] 10-29-2022 Evaluation + Plan note Associated Problem(s): Prediabetes Currently on no medications, very strict low-carb diet. [facility] 10-29-2022 Evaluation + Plan note Associated Problem(s): Obesity (BMI 35.0-39.9 without comorbidity) Contrave 8-90, 2 tablets twice a day, follow-up in 4 weeks for weight check [facility] 10-29-2022 Evaluation + Plan note Associated Problem(s): Essential hypertension Controlled, continue lisinopril 2.5 mg and metoprolol 25 mg daily [facility] 10-29-2022 History of Presen t illness Narrative Patient verified by last name and date of . Patient wants a heat reader in the room during during the visit. No only during pap [employer] Supervisor na Images from the original note were not included. 10/29/2022 Kamila Joseph (: 1955) is a 67 y.o. female , Established patient, here for evaluation of the following chief complaint(s): Gynecologic Exam (WFE), Blood Work, and Health Maintenance (Dexa scan- will check with insurance /Pcv 20 vaccine- will check with insurance /Covid 3 vaccine- not done) ASSESSMENT/PLAN: 1. Well female exam with routine gynecological exam - Pap Smear - Bilateral screening mammogram 2. Essential hypertension Assessment & Plan: Controlled, continue lisinopril 2.5 mg and metoprolol 25 mg daily Orders: - Comprehensive metabolic panel 3. Obesity (BMI 35.0-39.9 without comorbidity) Assessment & Plan: Contrave 8-90, 2 tablets twice a day, follow-up in 4 weeks for weight check 4. Prediabetes Assessment & Plan: Currently on no medications, very strict low-carb diet. Orders: - Comprehensive metabolic panel - Hemoglobin A1c 5. Recurrent major depressive disorder, in full remission (HCC) Assessment & Plan: Remission, venlafaxine XR 225 mg daily and Risperdal 4 mg daily 6. Anxiety Assessment & Plan: Remission, venlafaxine XR 225 mg daily and Risperdal 4 mg daily 7. Hyperlipidemia LDL goal <100 Assessment & Plan: Controlled, continue simvastatin 40 mg nightly Orders: - Lipid panel 8. Screening for colon cancer - Fecal Immunochemical Test Follow up in about 4 weeks (around 11/26/2022) for Weight check. SUBJECTIVE/OBJECTIVE: LIZETH Montez comes in today for her annual well female exam, she really has no complaints today she has multiple issues but all seem to be stable at this time. She is wondering about going on a another diet pill that she can stay on for a longer period of time she says her daughter is on something and we put her on it. She denies any other complaints at this time, see ROS. Review of Systems Constitutional: Negative for chills and fever. Respiratory: Negative for shortness of breath. Cardiovascular: Negative for chest pain and palpitations. Gastrointestinal: Negative for abdominal pain, blood in stool, constipation and diarrhea. Genitourinary: Negative for dyspareunia, dysuria, frequency, hematuria and urgency. Denies breast tenderness nipple discharge or lumps Neurological: Negative for weakness and numbness. Psychiatric/Behavioral: Negative for dysphoric mood. The patient is not nervous/anxious. Vitals: 10/29/22 1430 BP: 135/72 Pulse: 82 Weight: 211 lb (95.7 kg) Height: 5' 3.25 (1.607 m) Physical Exam Vitals and nursing note reviewed. Exam conducted with a heat reader present. Constitutional: General: She is not in acute distress. Appearance: Normal appearance. HENT: Head: Normocephalic. Right Ear: Tympanic membrane, ear canal and external ear normal. Left Ear: Tympanic membrane, ear canal and external ear normal. Mouth/Throat: Mouth: Mucous membranes are moist. Pharynx: Oropharynx is clear. Eyes: Extraocular Movements: Extraocular movements intact. Pupils: Pupils are equal, round, and reactive to light. Neck: Vascular: No carotid bruit. Cardiovascular: Rate and Rhythm: Normal rate and regular rhythm. Heart sounds: Normal heart sounds. No murmur heard. Pulmonary: Effort: Pulmonary effort is normal. Breath sounds: Normal breath sounds. Chest: Breasts: Right: Normal. No inverted nipple, mass, nipple discharge, skin change or tenderness. Left: Normal. No inverted nipple, mass, nipple discharge, skin change or tenderness. Abdominal: General: Bowel sounds are normal. Palpations: Abdomen is soft. Genitourinary: General: Normal vulva. Exam position: Lithotomy position. Labia: Right: No rash, tenderness, lesion or injury. Left: No rash, tenderness, lesion or injury. Urethra: No prolapse, urethral pain or urethral lesion. Vagina: Normal. Cervix: Normal. Uterus: Normal. Adnexa: Right adnexa normal and left adnexa normal. Rectum: Normal. Musculoskeletal: General: Normal range of motion. Cervical back: Normal range of motion. Lymphadenopathy: Cervical: No cervical adenopathy. Upper Body: Right upper body: No axillary adenopathy. Left upper body: No axillary adenopathy. Skin: General: Skin is warm and dry. Neurological: General: No focal deficit present. Mental Status: She is alert and oriented to person, place, and time. Psychiatric: Mood and Affect: Mood normal. An electronic signature was used to authenticate this note. Juvencio Davila MD 10/29/2022 3:43 PM After obtaining consent, and per orders of Dr. Davila, injection of Shingrix given in right deltoid by Anjel Zayas. Patient instructed to report any adverse reaction immediately. documented in this encounter [facility] Evaluation note Diagnosis Onset Date Atrial tachycardia chronic Cardiomyopathy chronic Essential hypertension chron [facility] Work Phone: Evaluation note* Diagnosis Onset Date Resolution Status Atrial tachycardia [facility] Work Phone: Evaluation note* Diagnosis Greater trochanteric bursitis of right hip- Primary Class 1 obesity due to excess calories without serious comorbidity with body mass index (BMI) of 31.0 to 31.9 in adult documented in this encounter [facility]* Diagnosis Recurrent major depressive disorder, in full remission (HCC)- Primary Class 1 obesity due to excess calories without serious comorbidity with body mass index (BMI) of 30.0 to 30.9 in adult [facility] Diagnosis Tardive dyskinesia- Primary Subacute dyskinesia due to drugs Drug-induced movement disorder Essential hypertension Unspecified essential hypertension Recurrent major depressive disorder, in full remission (HCC) [facility] Diagnosis Tardive dyskinesia- Primary Subacute dyskinesia due to drugs Drug-induced movement disorder Essential hypertension Unspecified essential hypertension Recurrent major depressive disorder, in full remission (HCC) [facility] Diagnosis Recurrent major depressive disorder, in full remission (HCC)- Primary Anxiety Anxiety state, unspecified Class 1 obesity due to excess calories without serious comorbidity with body mass index (BMI) of 30.0 to 30.9 in adult Tardive dyskinesia Subacute dyskinesia due to drugs [facility]* Diagnosis 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 [facility] Diagnosis TERESA on CPAP- Primary documented in this encounter [facility]* Diagnosis Tardive dyskinesia- Primary Subacute dyskinesia due to drugs documented in this encounter [facility]* Diagnosis Tardive dyskinesia- Primary Subacute dyskinesia due to drugs Anxiety Anxiety state, unspecified documented in this encounter [facility]* Diagnosis Tardive dyskinesia Subacute dyskinesia due to drugs [facility]* Diagnosis Tardive dyskinesia- Primary Subacute dyskinesia due to drugs Anxiety Anxiety state, unspecified documented in this encounter [facility]* Diagnosis Tardive dyskinesia- Primary Subacute dyskinesia due to drugs Weight loss Loss of weight Hot flashes Essential hypertension Unspecified essential hypertension documented in this encounter [facility]* Diagnosis Tardive dyskinesia- Primary Subacute dyskinesia due to drugs Weight loss Loss of weight Hot flashes Essential hypertension Unspecified essential hypertension documented in this encounter [facility]* Diagnosis Mild dementia without behavioral disturbance, psychotic disturbance, mood disturbance, or anxiety, unspecified dementia type (HCC)- Primary Tardive dyskinesia Subacute dyskinesia due to drugs documented in this encounter [facility]* Diagnosis Mild dementia without behavioral disturbance, psychotic disturbance, mood disturbance, or anxiety, unspecified dementia type (HCC) documented in this encounter [facility]* Diagnosis Recurrent major depressive disorder, in full remission (HCC) documented in this encounter [facility]* Diagnosis Tardive dyskinesia- Primary Subacute dyskinesia due to drugs Anxiety and depression [facility]* Diagnosis Anxiety- Primary Anxiety state, unspecified Tardive dyskinesia Subacute dyskinesia due to drugs Essential hypertension Unspecified essential hypertension Post-menopausal Asymptomatic postmenopausal status (age-related) (natural) Skin lesion Unspecified disorder of skin and subcutaneous tissue documented in this encounter [facility]* Diagnosis 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- Primary documented in this encounter [facility]* Diagnosis Anxiety- Primary Anxiety state, unspecified Recurrent major depressive disorder, in full remission (HCC) Essential hypertension Unspecified essential hypertension documented in this encounter [facility]* Diagnosis Anxiety- Primary Anxiety state, unspecified Recurrent major depressive disorder, in full remission (HCC) documented in this encounter [facility]* Diagnosis 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 documented in this encounter [facility]* Diagnosis Anxiety Anxiety state, unspecified documented in this encounter [facility]* Diagnosis Routine general medical examination at health care facility- Primary Routine general medical examination at a health care facility Hyperlipidemia LDL goal <100 Other and unspecified hyperlipidemia Screening for deficiency anemia Screening for other and unspecified deficiency anemia Essential hypertension Unspecified essential hypertension Encounter for screening mammogram for malignant neoplasm of breast Post-menopausal Asymptomatic postmenopausal status (age-related) (natural) Tardive dyskinesia Subacute dyskinesia due to drugs Weight loss Loss of weight TERESA on CPAP Recurrent major depressive disorder, in full remission (HCC) Anxiety Anxiety state, unspecified [facility] Diagnosis TERESA on CPAP- Primary [facility]* Diagnosis Urinary tract infection symptoms- Primary [facility]* Diagnosis Tardive dyskinesia- Primary Subacute dyskinesia due to drugs Gait disorder Abnormality of gait [facility]* Diagnosis Parkinson's disease without dyskinesia or fluctuating manifestations (HCC)- Primary Orofacial dyskinesia [facility]* Diagnosis Hyperlipidemia LDL goal <100 Other and unspecified hyperlipidemia [facility]* Diagnosis Acute left-sided low back pain without sciatica- Primary Skin lesion Unspecified disorder of skin and subcutaneous tissue Colon cancer screening Special screening for malignant neoplasms, colon Left flank pain Abdominal pain, unspecified site TERESA on CPAP Anxiety Anxiety state, unspecified Recurrent major depressive disorder, in full remission (HCC) Essential hypertension Unspecified essential hypertension Hyperlipidemia LDL goal <100 Other and unspecified hyperlipidemia Urinary tract infection symptoms documented in this encounter [facility]* Diagnosis Well female exam with routine gynecological exam- Primary Routine gynecological examination Essential hypertension Unspecified essential hypertension Obesity (BMI 35.0-39.9 without comorbidity) Prediabetes Other abnormal glucose Recurrent major depressive disorder, in full remission (HCC) Anxiety Anxiety state, unspecified Hyperlipidemia LDL goal <100 Other and unspecified hyperlipidemia Screening for colon cancer Special screening for malignant neoplasms, colon Greater trochanteric bursitis of right hip- Primary Class 1 obesity due to excess calories without serious comorbidity with body mass index (BMI) of 31.0 to 31.9 in adult Recurrent major depressive disorder, in full remission (HCC)- Primary Class 1 obesity due to excess calories without serious comorbidity with body mass index (BMI) of 30.0 to 30.9 in adult Tardive dyskinesia- Primary Subacute dyskinesia due to drugs Drug-induced movement disorder Essential hypertension Unspecified essential hypertension Recurrent major depressive disorder, in full remission (HCC) Recurrent major depressive disorder, in full remission (HCC)- Primary Anxiety Anxiety state, unspecified Class 1 obesity due to excess calories without serious comorbidity with body mass index (BMI) of 30.0 to 30.9 in adult Tardive dyskinesia Subacute dyskinesia due to drugs 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 Tardive dyskinesia- Primary Subacute dyskinesia due to drugs Tardive dyskinesia- Primary Subacute dyskinesia due to drugs Anxiety Anxiety state, unspecified Tardive dyskinesia- Primary Subacute dyskinesia due to drugs Anxiety Anxiety state, unspecified Tardive dyskinesia- Primary Subacute dyskinesia due to drugs Weight loss Loss of weight Hot flashes Essential hypertension Unspecified essential hypertension Anxiety- Primary Anxiety state, unspecified Tardive dyskinesia Subacute dyskinesia due to drugs Essential hypertension Unspecified essential hypertension Post-menopausal Asymptomatic postmenopausal status (age-related) (natural) Skin lesion Unspecified disorder of skin and subcutaneous tissue 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- Primary Anxiety- Primary Anxiety state, unspecified Recurrent major depressive disorder, in full remission (HCC) Essential hypertension Unspecified essential hypertension Anxiety- Primary Anxiety state, unspecified Recurrent major depressive disorder, in full remission (HCC) Routine general medical examination at health care facility- Primary Routine general medical examination at a health care facility Hyperlipidemia LDL goal <100 Other and unspecified hyperlipidemia Screening for deficiency anemia Screening for other and unspecified deficiency anemia Essential hypertension Unspecified essential hypertension Encounter for screening mammogram for malignant neoplasm of breast Post-menopausal Asymptomatic postmenopausal status (age-related) (natural) Tardive dyskinesia Subacute dyskinesia due to drugs Weight loss Loss of weight TERESA on CPAP Recurrent major depressive disorder, in full remission (HCC) Anxiety Anxiety state, unspecified TERESA on CPAP- Primary Urinary tract infection symptoms- Primary Acute left-sided low back pain without sciatica- Primary Skin lesion Unspecified disorder of skin and subcutaneous tissue Colon cancer screening Special screening for malignant neoplasms, colon Left flank pain Abdominal pain, unspecified site TERESA on CPAP Anxiety Anxiety state, unspecified Recurrent major depressive disorder, in full remission (HCC) Essential hypertension Unspecified essential hypertension Hyperlipidemia LDL goal <100 Other and unspecified hyperlipidemia Urinary tract infection symptoms Encounter for screening for malignant neoplasm of colon [facility]* Diagnosis Well female exam with routine gynecological exam- Primary Routine gynecological examination Essential hypertension Unspecified essential hypertension Obesity (BMI 35.0-39.9 without comorbidity) Prediabetes Other abnormal glucose Recurrent major depressive disorder, in full remission (HCC) Anxiety Anxiety state, unspecified Hyperlipidemia LDL goal <100 Other and unspecified hyperlipidemia Screening for colon cancer Special screening for malignant neoplasms, colon Greater trochanteric bursitis of right hip- Primary Class 1 obesity due to excess calories without serious comorbidity with body mass index (BMI) of 31.0 to 31.9 in adult Recurrent major depressive disorder, in full remission (HCC)- Primary Class 1 obesity due to excess calories without serious comorbidity with body mass index (BMI) of 30.0 to 30.9 in adult Tardive dyskinesia- Primary Subacute dyskinesia due to drugs Drug-induced movement disorder Essential hypertension Unspecified essential hypertension Recurrent major depressive disorder, in full remission (HCC) Recurrent major depressive disorder, in full remission (HCC)- Primary Anxiety Anxiety state, unspecified Class 1 obesity due to excess calories without serious comorbidity with body mass index (BMI) of 30.0 to 30.9 in adult Tardive dyskinesia Subacute dyskinesia due to drugs 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 Tardive dyskinesia- Primary Subacute dyskinesia due to drugs Tardive dyskinesia- Primary Subacute dyskinesia due to drugs Anxiety Anxiety state, unspecified Tardive dyskinesia- Primary Subacute dyskinesia due to drugs Anxiety Anxiety state, unspecified Tardive dyskinesia- Primary Subacute dyskinesia due to drugs Weight loss Loss of weight Hot flashes Essential hypertension Unspecified essential hypertension Anxiety- Primary Anxiety state, unspecified Tardive dyskinesia Subacute dyskinesia due to drugs Essential hypertension Unspecified essential hypertension Post-menopausal Asymptomatic postmenopausal status (age-related) (natural) Skin lesion Unspecified disorder of skin and subcutaneous tissue 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- Primary Anxiety- Primary Anxiety state, unspecified Recurrent major depressive disorder, in full remission (HCC) Essential hypertension Unspecified essential hypertension Anxiety- Primary Anxiety state, unspecified Recurrent major depressive disorder, in full remission (HCC) Routine general medical examination at health care facility- Primary Routine general medical examination at a health care facility Hyperlipidemia LDL goal <100 Other and unspecified hyperlipidemia Screening for deficiency anemia Screening for other and unspecified deficiency anemia Essential hypertension Unspecified essential hypertension Encounter for screening mammogram for malignant neoplasm of breast Post-menopausal Asymptomatic postmenopausal status (age-related) (natural) Tardive dyskinesia Subacute dyskinesia due to drugs Weight loss Loss of weight TERESA on CPAP Recurrent major depressive disorder, in full remission (HCC) Anxiety Anxiety state, unspecified TERESA on CPAP- Primary Acute left-sided low back pain without sciatica- Primary Skin lesion Unspecified disorder of skin and subcutaneous tissue Colon cancer screening Special screening for malignant neoplasms, colon Left flank pain Abdominal pain, unspecified site TERESA on CPAP Anxiety Anxiety state, unspecified Recurrent major depressive disorder, in full remission (HCC) Essential hypertension Unspecified essential hypertension Hyperlipidemia LDL goal <100 Other and unspecified hyperlipidemia Urinary tract infection symptoms Acute pain of right shoulder- Primary Mixed stress and urge urinary incontinence Mixed incontinence urge and stress (male)(female) documented in this encounter [facility]* Diagnosis Well female exam with routine gynecological exam- Primary Routine gynecological examination Essential hypertension Unspecified essential hypertension Obesity (BMI 35.0-39.9 without comorbidity) Prediabetes Other abnormal glucose Recurrent major depressive disorder, in full remission (HCC) Anxiety Anxiety state, unspecified Hyperlipidemia LDL goal <100 Other and unspecified hyperlipidemia Screening for colon cancer Special screening for malignant neoplasms, colon Greater trochanteric bursitis of right hip- Primary Class 1 obesity due to excess calories without serious comorbidity with body mass index (BMI) of 31.0 to 31.9 in adult Recurrent major depressive disorder, in full remission (HCC)- Primary Class 1 obesity due to excess calories without serious comorbidity with body mass index (BMI) of 30.0 to 30.9 in adult Tardive dyskinesia- Primary Subacute dyskinesia due to drugs Drug-induced movement disorder Essential hypertension Unspecified essential hypertension Recurrent major depressive disorder, in full remission (HCC) Recurrent major depressive disorder, in full remission (HCC)- Primary Anxiety Anxiety state, unspecified Class 1 obesity due to excess calories without serious comorbidity with body mass index (BMI) of 30.0 to 30.9 in adult Tardive dyskinesia Subacute dyskinesia due to drugs 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 Tardive dyskinesia- Primary Subacute dyskinesia due to drugs Tardive dyskinesia- Primary Subacute dyskinesia due to drugs Anxiety Anxiety state, unspecified Tardive dyskinesia- Primary Subacute dyskinesia due to drugs Anxiety Anxiety state, unspecified Tardive dyskinesia- Primary Subacute dyskinesia due to drugs Weight loss Loss of weight Hot flashes Essential hypertension Unspecified essential hypertension Anxiety- Primary Anxiety state, unspecified Tardive dyskinesia Subacute dyskinesia due to drugs Essential hypertension Unspecified essential hypertension Post-menopausal Asymptomatic postmenopausal status (age-related) (natural) Skin lesion Unspecified disorder of skin and subcutaneous tissue 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- Primary Anxiety- Primary Anxiety state, unspecified Recurrent major depressive disorder, in full remission (HCC) Essential hypertension Unspecified essential hypertension Anxiety- Primary Anxiety state, unspecified Recurrent major depressive disorder, in full remission (HCC) Routine general medical examination at health care facility- Primary Routine general medical examination at a health care facility Hyperlipidemia LDL goal <100 Other and unspecified hyperlipidemia Screening for deficiency anemia Screening for other and unspecified deficiency anemia Essential hypertension Unspecified essential hypertension Encounter for screening mammogram for malignant neoplasm of breast Post-menopausal Asymptomatic postmenopausal status (age-related) (natural) Tardive dyskinesia Subacute dyskinesia due to drugs Weight loss Loss of weight TERESA on CPAP Recurrent major depressive disorder, in full remission (HCC) Anxiety Anxiety state, unspecified TERESA on CPAP- Primary Acute left-sided low back pain without sciatica- Primary Skin lesion Unspecified disorder of skin and subcutaneous tissue Colon cancer screening Special screening for malignant neoplasms, colon Left flank pain Abdominal pain, unspecified site TERESA on CPAP Anxiety Anxiety state, unspecified Recurrent major depressive disorder, in full remission (HCC) Essential hypertension Unspecified essential hypertension Hyperlipidemia LDL goal <100 Other and unspecified hyperlipidemia Urinary tract infection symptoms Acute pain of right shoulder- Primary Mixed stress and urge urinary incontinence Mixed incontinence urge and stress (male)(female) Acute pain of right shoulder [facility] Diagnosis Well female exam with routine gynecological exam- Primary Routine gynecological examination Essential hypertension Unspecified essential hypertension Obesity (BMI 35.0-39.9 without comorbidity) Prediabetes Other abnormal glucose Recurrent major depressive disorder, in full remission (HCC) Anxiety Anxiety state, unspecified Hyperlipidemia LDL goal <100 Other and unspecified hyperlipidemia Screening for colon cancer Special screening for malignant neoplasms, colon Greater trochanteric bursitis of right hip- Primary Class 1 obesity due to excess calories without serious comorbidity with body mass index (BMI) of 31.0 to 31.9 in adult Recurrent major depressive disorder, in full remission (HCC)- Primary Class 1 obesity due to excess calories without serious comorbidity with body mass index (BMI) of 30.0 to 30.9 in adult Tardive dyskinesia- Primary Subacute dyskinesia due to drugs Drug-induced movement disorder Essential hypertension Unspecified essential hypertension Recurrent major depressive disorder, in full remission (HCC) Recurrent major depressive disorder, in full remission (HCC)- Primary Anxiety Anxiety state, unspecified Class 1 obesity due to excess calories without serious comorbidity with body mass index (BMI) of 30.0 to 30.9 in adult Tardive dyskinesia Subacute dyskinesia due to drugs 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 Tardive dyskinesia- Primary Subacute dyskinesia due to drugs Tardive dyskinesia- Primary Subacute dyskinesia due to drugs Anxiety Anxiety state, unspecified Tardive dyskinesia- Primary Subacute dyskinesia due to drugs Anxiety Anxiety state, unspecified Tardive dyskinesia- Primary Subacute dyskinesia due to drugs Weight loss Loss of weight Hot flashes Essential hypertension Unspecified essential hypertension Anxiety- Primary Anxiety state, unspecified Tardive dyskinesia Subacute dyskinesia due to drugs Essential hypertension Unspecified essential hypertension Post-menopausal Asymptomatic postmenopausal status (age-related) (natural) Skin lesion Unspecified disorder of skin and subcutaneous tissue 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- Primary Anxiety- Primary Anxiety state, unspecified Recurrent major depressive disorder, in full remission (HCC) Essential hypertension Unspecified essential hypertension Anxiety- Primary Anxiety state, unspecified Recurrent major depressive disorder, in full remission (HCC) Routine general medical examination at health care facility- Primary Routine general medical examination at a health care facility Hyperlipidemia LDL goal <100 Other and unspecified hyperlipidemia Screening for deficiency anemia Screening for other and unspecified deficiency anemia Essential hypertension Unspecified essential hypertension Encounter for screening mammogram for malignant neoplasm of breast Post-menopausal Asymptomatic postmenopausal status (age-related) (natural) Tardive dyskinesia Subacute dyskinesia due to drugs Weight loss Loss of weight TERESA on CPAP Recurrent major depressive disorder, in full remission (HCC) Anxiety Anxiety state, unspecified TERESA on CPAP- Primary Acute left-sided low back pain without sciatica- Primary Skin lesion Unspecified disorder of skin and subcutaneous tissue Colon cancer screening Special screening for malignant neoplasms, colon Left flank pain Abdominal pain, unspecified site TERESA on CPAP Anxiety Anxiety state, unspecified Recurrent major depressive disorder, in full remission (HCC) Essential hypertension Unspecified essential hypertension Hyperlipidemia LDL goal <100 Other and unspecified hyperlipidemia Urinary tract infection symptoms Acute pain of right shoulder- Primary Mixed stress and urge urinary incontinence Mixed incontinence urge and stress (male)(female) Acute pain of right shoulder [facility]* Diagnosis Well female exam with routine gynecological exam- Primary Routine gynecological examination Essential hypertension Unspecified essential hypertension Obesity (BMI 35.0-39.9 without comorbidity) Prediabetes Other abnormal glucose Recurrent major depressive disorder, in full remission (HCC) Anxiety Anxiety state, unspecified Hyperlipidemia LDL goal <100 Other and unspecified hyperlipidemia Screening for colon cancer Special screening for malignant neoplasms, colon Greater trochanteric bursitis of right hip- Primary Class 1 obesity due to excess calories without serious comorbidity with body mass index (BMI) of 31.0 to 31.9 in adult Recurrent major depressive disorder, in full remission (HCC)- Primary Class 1 obesity due to excess calories without serious comorbidity with body mass index (BMI) of 30.0 to 30.9 in adult Tardive dyskinesia- Primary Subacute dyskinesia due to drugs Drug-induced movement disorder Essential hypertension Unspecified essential hypertension Recurrent major depressive disorder, in full remission (HCC) Recurrent major depressive disorder, in full remission (HCC)- Primary Anxiety Anxiety state, unspecified Class 1 obesity due to excess calories without serious comorbidity with body mass index (BMI) of 30.0 to 30.9 in adult Tardive dyskinesia Subacute dyskinesia due to drugs 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 Tardive dyskinesia- Primary Subacute dyskinesia due to drugs Tardive dyskinesia- Primary Subacute dyskinesia due to drugs Anxiety Anxiety state, unspecified Tardive dyskinesia- Primary Subacute dyskinesia due to drugs Anxiety Anxiety state, unspecified Tardive dyskinesia- Primary Subacute dyskinesia due to drugs Weight loss Loss of weight Hot flashes Essential hypertension Unspecified essential hypertension Anxiety- Primary Anxiety state, unspecified Tardive dyskinesia Subacute dyskinesia due to drugs Essential hypertension Unspecified essential hypertension Post-menopausal Asymptomatic postmenopausal status (age-related) (natural) Skin lesion Unspecified disorder of skin and subcutaneous tissue 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- Primary Anxiety- Primary Anxiety state, unspecified Recurrent major depressive disorder, in full remission (HCC) Essential hypertension Unspecified essential hypertension Anxiety- Primary Anxiety state, unspecified Recurrent major depressive disorder, in full remission (HCC) Routine general medical examination at health care facility- Primary Routine general medical examination at a health care facility Hyperlipidemia LDL goal <100 Other and unspecified hyperlipidemia Screening for deficiency anemia Screening for other and unspecified deficiency anemia Essential hypertension Unspecified essential hypertension Encounter for screening mammogram for malignant neoplasm of breast Post-menopausal Asymptomatic postmenopausal status (age-related) (natural) Tardive dyskinesia Subacute dyskinesia due to drugs Weight loss Loss of weight TERESA on CPAP Recurrent major depressive disorder, in full remission (HCC) Anxiety Anxiety state, unspecified TERESA on CPAP- Primary Acute left-sided low back pain without sciatica- Primary Skin lesion Unspecified disorder of skin and subcutaneous tissue Colon cancer screening Special screening for malignant neoplasms, colon Left flank pain Abdominal pain, unspecified site TERESA on CPAP Anxiety Anxiety state, unspecified Recurrent major depressive disorder, in full remission (HCC) Essential hypertension Unspecified essential hypertension Hyperlipidemia LDL goal <100 Other and unspecified hyperlipidemia Urinary tract infection symptoms Acute pain of right shoulder- Primary Mixed stress and urge urinary incontinence Mixed incontinence urge and stress (male)(female) Dyskinesia- Primary 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) documented in [facility]* Diagnosis Well female exam with routine gynecological exam- Primary Routine gynecological examination Essential hypertension Unspecified essential hypertension Obesity (BMI 35.0-39.9 without comorbidity) Prediabetes Other abnormal glucose Recurrent major depressive disorder, in full remission (HCC) Anxiety Anxiety state, unspecified Hyperlipidemia LDL goal <100 Other and unspecified hyperlipidemia Screening for colon cancer Special screening for malignant neoplasms, colon documented in [facility]* Diagnosis Well female exam with routine gynecological exam- Primary Routine gynecological examination Essential hypertension Unspecified essential hypertension Obesity (BMI 35.0-39.9 without comorbidity) Prediabetes Other abnormal glucose Recurrent major depressive disorder, in full remission (HCC) Anxiety Anxiety state, unspecified Hyperlipidemia LDL goal <100 Other and unspecified hyperlipidemia Screening for colon cancer Special screening for malignant neoplasms, colon Greater trochanteric bursitis of right hip- Primary Class 1 obesity due to excess calories without serious comorbidity with body mass index (BMI) of 31.0 to 31.9 in adult Recurrent major depressive disorder, in full remission (HCC)- Primary Class 1 obesity due to excess calories without serious comorbidity with body mass index (BMI) of 30.0 to 30.9 in adult Tardive dyskinesia- Primary Subacute dyskinesia due to drugs Drug-induced movement disorder Essential hypertension Unspecified essential hypertension Recurrent major depressive disorder, in full remission (HCC) Recurrent major depressive disorder, in full remission (HCC)- Primary Anxiety Anxiety state, unspecified Class 1 obesity due to excess calories without serious comorbidity with body mass index (BMI) of 30.0 to 30.9 in adult Tardive dyskinesia Subacute dyskinesia due to drugs 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 Tardive dyskinesia- Primary Subacute dyskinesia due to drugs Tardive dyskinesia- Primary Subacute dyskinesia due to drugs Anxiety Anxiety state, unspecified Tardive dyskinesia- Primary Subacute dyskinesia due to drugs Anxiety Anxiety state, unspecified Tardive dyskinesia- Primary Subacute dyskinesia due to drugs Weight loss Loss of weight Hot flashes Essential hypertension Unspecified essential hypertension Anxiety- Primary Anxiety state, unspecified Tardive dyskinesia Subacute dyskinesia due to drugs Essential hypertension Unspecified essential hypertension Post-menopausal Asymptomatic postmenopausal status (age-related) (natural) Skin lesion Unspecified disorder of skin and subcutaneous tissue 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- Primary Anxiety- Primary Anxiety state, unspecified Recurrent major depressive disorder, in full remission (HCC) Essential hypertension Unspecified essential hypertension Anxiety- Primary Anxiety state, unspecified Recurrent major depressive disorder, in full remission (HCC) Routine general medical examination at health care facility- Primary Routine general medical examination at a health care facility Hyperlipidemia LDL goal <100 Other and unspecified hyperlipidemia Screening for deficiency anemia Screening for other and unspecified deficiency anemia Essential hypertension Unspecified essential hypertension Encounter for screening mammogram for malignant neoplasm of breast Post-menopausal Asymptomatic postmenopausal status (age-related) (natural) Tardive dyskinesia Subacute dyskinesia due to drugs Weight loss Loss of weight TERESA on CPAP Recurrent major depressive disorder, in full remission (HCC) Anxiety Anxiety state, unspecified TERESA on CPAP- Primary Urinary tract infection symptoms- Primary Acute left-sided low back pain without sciatica- Primary Skin lesion Unspecified disorder of skin and subcutaneous tissue Colon cancer screening Special screening for malignant neoplasms, colon Left flank pain Abdominal pain, unspecified site TERESA on CPAP Anxiety Anxiety state, unspecified Recurrent major depressive disorder, in full remission (HCC) Essential hypertension Unspecified essential hypertension Hyperlipidemia LDL goal <100 Other and unspecified hyperlipidemia Urinary tract infection symptoms Acute pain of right shoulder- Primary Mixed stress and urge urinary incontinence Mixed incontinence urge and stress (male)(female) Acute pain of right shoulder- Primary Urinary tract infection symptoms Mixed stress and urge urinary incontinence Mixed incontinence urge and stress (male)(female) Chronic midline low back pain without sciatica Essential hypertension Unspecified essential hypertension Major depressive disorder with single episode, in partial remission (HCC) documented in [facility]* Diagnosis Well female exam with routine gynecological exam- Primary Routine gynecological examination Essential hypertension Unspecified essential hypertension Obesity (BMI 35.0-39.9 without comorbidity) Prediabetes Other abnormal glucose Recurrent major depressive disorder, in full remission (HCC) Anxiety Anxiety state, unspecified Hyperlipidemia LDL goal <100 Other and unspecified hyperlipidemia Screening for colon cancer Special screening for malignant neoplasms, colon Greater trochanteric bursitis of right hip- Primary Class 1 obesity due to excess calories without serious comorbidity with body mass index (BMI) of 31.0 to 31.9 in adult Recurrent major depressive disorder, in full remission (HCC)- Primary Class 1 obesity due to excess calories without serious comorbidity with body mass index (BMI) of 30.0 to 30.9 in adult Tardive dyskinesia- Primary Subacute dyskinesia due to drugs Drug-induced movement disorder Essential hypertension Unspecified essential hypertension Recurrent major depressive disorder, in full remission (HCC) Recurrent major depressive disorder, in full remission (HCC)- Primary Anxiety Anxiety state, unspecified Class 1 obesity due to excess calories without serious comorbidity with body mass index (BMI) of 30.0 to 30.9 in adult Tardive dyskinesia Subacute dyskinesia due to drugs 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 Tardive dyskinesia- Primary Subacute dyskinesia due to drugs Tardive dyskinesia- Primary Subacute dyskinesia due to drugs Anxiety Anxiety state, unspecified Tardive dyskinesia- Primary Subacute dyskinesia due to drugs Anxiety Anxiety state, unspecified Tardive dyskinesia- Primary Subacute dyskinesia due to drugs Weight loss Loss of weight Hot flashes Essential hypertension Unspecified essential hypertension Anxiety- Primary Anxiety state, unspecified Tardive dyskinesia Subacute dyskinesia due to drugs Essential hypertension Unspecified essential hypertension Post-menopausal Asymptomatic postmenopausal status (age-related) (natural) Skin lesion Unspecified disorder of skin and subcutaneous tissue 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- Primary Anxiety- Primary Anxiety state, unspecified Recurrent major depressive disorder, in full remission (HCC) Essential hypertension Unspecified essential hypertension Anxiety- Primary Anxiety state, unspecified Recurrent major depressive disorder, in full remission (HCC) Routine general medical examination at health care facility- Primary Routine general medical examination at a health care facility Hyperlipidemia LDL goal <100 Other and unspecified hyperlipidemia Screening for deficiency anemia Screening for other and unspecified deficiency anemia Essential hypertension Unspecified essential hypertension Encounter for screening mammogram for malignant neoplasm of breast Post-menopausal Asymptomatic postmenopausal status (age-related) (natural) Tardive dyskinesia Subacute dyskinesia due to drugs Weight loss Loss of weight TERESA on CPAP Recurrent major depressive disorder, in full remission (HCC) Anxiety Anxiety state, unspecified TERESA on CPAP- Primary Urinary tract infection symptoms- Primary Acute left-sided low back pain without sciatica- Primary Skin lesion Unspecified disorder of skin and subcutaneous tissue Colon cancer screening Special screening for malignant neoplasms, colon Left flank pain Abdominal pain, unspecified site TERESA on CPAP Anxiety Anxiety state, unspecified Recurrent major depressive disorder, in full remission (HCC) Essential hypertension Unspecified essential hypertension Hyperlipidemia LDL goal <100 Other and unspecified hyperlipidemia Urinary tract infection symptoms Acute pain of right shoulder- Primary Mixed stress and urge urinary incontinence Mixed incontinence urge and stress (male)(female) Acute pain of right shoulder- Primary Urinary tract infection symptoms Mixed stress and urge urinary incontinence Mixed incontinence urge and stress (male)(female) Chronic midline low back pain without sciatica Essential hypertension Unspecified essential hypertension Major depressive disorder with single episode, in partial remission (HCC) Chronic midline low back pain without sciatica documented in [facility]* Diagnosis Well female exam with routine gynecological exam- Primary Routine gynecological examination Essential hypertension Unspecified essential hypertension Obesity (BMI 35.0-39.9 without comorbidity) Prediabetes Other abnormal glucose Recurrent major depressive disorder, in full remission (HCC) Anxiety Anxiety state, unspecified Hyperlipidemia LDL goal <100 Other and unspecified hyperlipidemia Screening for colon cancer Special screening for malignant neoplasms, colon Greater trochanteric bursitis of right hip- Primary Class 1 obesity due to excess calories without serious comorbidity with body mass index (BMI) of 31.0 to 31.9 in adult Recurrent major depressive disorder, in full remission (HCC)- Primary Class 1 obesity due to excess calories without serious comorbidity with body mass index (BMI) of 30.0 to 30.9 in adult Tardive dyskinesia- Primary Subacute dyskinesia due to drugs Drug-induced movement disorder Essential hypertension Unspecified essential hypertension Recurrent major depressive disorder, in full remission (HCC) Recurrent major depressive disorder, in full remission (HCC)- Primary Anxiety Anxiety state, unspecified Class 1 obesity due to excess calories without serious comorbidity with body mass index (BMI) of 30.0 to 30.9 in adult Tardive dyskinesia Subacute dyskinesia due to drugs 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 Tardive dyskinesia- Primary Subacute dyskinesia due to drugs Tardive dyskinesia- Primary Subacute dyskinesia due to drugs Anxiety Anxiety state, unspecified Tardive dyskinesia- Primary Subacute dyskinesia due to drugs Anxiety Anxiety state, unspecified Tardive dyskinesia- Primary Subacute dyskinesia due to drugs Weight loss Loss of weight Hot flashes Essential hypertension Unspecified essential hypertension Anxiety- Primary Anxiety state, unspecified Tardive dyskinesia Subacute dyskinesia due to drugs Essential hypertension Unspecified essential hypertension Post-menopausal Asymptomatic postmenopausal status (age-related) (natural) Skin lesion Unspecified disorder of skin and subcutaneous tissue 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- Primary Anxiety- Primary Anxiety state, unspecified Recurrent major depressive disorder, in full remission (HCC) Essential hypertension Unspecified essential hypertension Anxiety- Primary Anxiety state, unspecified Recurrent major depressive disorder, in full remission (HCC) Routine general medical examination at health care facility- Primary Routine general medical examination at a health care facility Hyperlipidemia LDL goal <100 Other and unspecified hyperlipidemia Screening for deficiency anemia Screening for other and unspecified deficiency anemia Essential hypertension Unspecified essential hypertension Encounter for screening mammogram for malignant neoplasm of breast Post-menopausal Asymptomatic postmenopausal status (age-related) (natural) Tardive dyskinesia Subacute dyskinesia due to drugs Weight loss Loss of weight TERESA on CPAP Recurrent major depressive disorder, in full remission (HCC) Anxiety Anxiety state, unspecified TERESA on CPAP- Primary Urinary tract infection symptoms- Primary Acute left-sided low back pain without sciatica- Primary Skin lesion Unspecified disorder of skin and subcutaneous tissue Colon cancer screening Special screening for malignant neoplasms, colon Left flank pain Abdominal pain, unspecified site TERESA on CPAP Anxiety Anxiety state, unspecified Recurrent major depressive disorder, in full remission (HCC) Essential hypertension Unspecified essential hypertension Hyperlipidemia LDL goal <100 Other and unspecified hyperlipidemia Urinary tract infection symptoms Acute pain of right shoulder- Primary Mixed stress and urge urinary incontinence Mixed incontinence urge and stress (male)(female) Acute pain of right shoulder- Primary Urinary tract infection symptoms Mixed stress and urge urinary incontinence Mixed incontinence urge and stress (male)(female) Chronic midline low back pain without sciatica Essential hypertension Unspecified essential hypertension Major depressive disorder with single episode, in partial remission (HCC) Neck pain- Primary Cervicalgia Cervical myelopathy (HCC) Cervical spondylosis with myelopathy DDD (degenerative disc disease), cervical Degeneration of cervical intervertebral disc Cervical spondylosis Cervical spondylosis without myelopathy Lumbar pain Lumbago Degeneration of intervertebral disc of lumbar region with discogenic back pain Lumbar spondylosis Lumbosacral spondylosis without myelopathy [facility] in [facility]* Diagnosis Well female exam with routine gynecological exam- Primary Routine gynecological examination Essential hypertension Unspecified essential hypertension Obesity (BMI 35.0-39.9 without comorbidity) Prediabetes Other abnormal glucose Recurrent major depressive disorder, in full remission (HCC) Anxiety Anxiety state, unspecified Hyperlipidemia LDL goal <100 Other and unspecified hyperlipidemia Screening for colon cancer Special screening for malignant neoplasms, colon Greater trochanteric bursitis of right hip- Primary Class 1 obesity due to excess calories without serious comorbidity with body mass index (BMI) of 31.0 to 31.9 in adult Recurrent major depressive disorder, in full remission (HCC)- Primary Class 1 obesity due to excess calories without serious comorbidity with body mass index (BMI) of 30.0 to 30.9 in adult Tardive dyskinesia- Primary Subacute dyskinesia due to drugs Drug-induced movement disorder Essential hypertension Unspecified essential hypertension Recurrent major depressive disorder, in full remission (HCC) Recurrent major depressive disorder, in full remission (HCC)- Primary Anxiety Anxiety state, unspecified Class 1 obesity due to excess calories without serious comorbidity with body mass index (BMI) of 30.0 to 30.9 in adult Tardive dyskinesia Subacute dyskinesia due to drugs 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 Tardive dyskinesia- Primary Subacute dyskinesia due to drugs Tardive dyskinesia- Primary Subacute dyskinesia due to drugs Anxiety Anxiety state, unspecified Tardive dyskinesia- Primary Subacute dyskinesia due to drugs Anxiety Anxiety state, unspecified Tardive dyskinesia- Primary Subacute dyskinesia due to drugs Weight loss Loss of weight Hot flashes Essential hypertension Unspecified essential hypertension Anxiety- Primary Anxiety state, unspecified Tardive dyskinesia Subacute dyskinesia due to drugs Essential hypertension Unspecified essential hypertension Post-menopausal Asymptomatic postmenopausal status (age-related) (natural) Skin lesion Unspecified disorder of skin and subcutaneous tissue 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- Primary Anxiety- Primary Anxiety state, unspecified Recurrent major depressive disorder, in full remission (HCC) Essential hypertension Unspecified essential hypertension Anxiety- Primary Anxiety state, unspecified Recurrent major depressive disorder, in full remission (HCC) Routine general medical examination at health care facility- Primary Routine general medical examination at a health care facility Hyperlipidemia LDL goal <100 Other and unspecified hyperlipidemia Screening for deficiency anemia Screening for other and unspecified deficiency anemia Essential hypertension Unspecified essential hypertension Encounter for screening mammogram for malignant neoplasm of breast Post-menopausal Asymptomatic postmenopausal status (age-related) (natural) Tardive dyskinesia Subacute dyskinesia due to drugs Weight loss Loss of weight TERESA on CPAP Recurrent major depressive disorder, in full remission (HCC) Anxiety Anxiety state, unspecified TERESA on CPAP- Primary Urinary tract infection symptoms- Primary Acute left-sided low back pain without sciatica- Primary Skin lesion Unspecified disorder of skin and subcutaneous tissue Colon cancer screening Special screening for malignant neoplasms, colon Left flank pain Abdominal pain, unspecified site TERESA on CPAP Anxiety Anxiety state, unspecified Recurrent major depressive disorder, in full remission (HCC) Essential hypertension Unspecified essential hypertension Hyperlipidemia LDL goal <100 Other and unspecified hyperlipidemia Urinary tract infection symptoms Acute pain of right shoulder- Primary Mixed stress and urge urinary incontinence Mixed incontinence urge and stress (male)(female) Acute pain of right shoulder- Primary Urinary tract infection symptoms Mixed stress and urge urinary incontinence Mixed incontinence urge and stress (male)(female) Chronic midline low back pain without sciatica Essential hypertension Unspecified essential hypertension Major depressive disorder with single episode, in partial remission (HCC) Neck pain Cervicalgia Cervical myelopathy (HCC) Cervical spondylosis with myelopathy DDD (degenerative disc disease), cervical Degeneration of cervical intervertebral disc Cervical spondylosis Cervical spondylosis without myelopathy [facility]* Diagnosis Well female exam with routine gynecological exam- Primary Routine gynecological examination Essential hypertension Unspecified essential hypertension Obesity (BMI 35.0-39.9 without comorbidity) Prediabetes Other abnormal glucose Recurrent major depressive disorder, in full remission (HCC) Anxiety Anxiety state, unspecified Hyperlipidemia LDL goal <100 Other and unspecified hyperlipidemia Screening for colon cancer Special screening for malignant neoplasms, colon Greater trochanteric bursitis of right hip- Primary Class 1 obesity due to excess calories without serious comorbidity with body mass index (BMI) of 31.0 to 31.9 in adult Recurrent major depressive disorder, in full remission (HCC)- Primary Class 1 obesity due to excess calories without serious comorbidity with body mass index (BMI) of 30.0 to 30.9 in adult Tardive dyskinesia- Primary Subacute dyskinesia due to drugs Drug-induced movement disorder Essential hypertension Unspecified essential hypertension Recurrent major depressive disorder, in full remission (HCC) Recurrent major depressive disorder, in full remission (HCC)- Primary Anxiety Anxiety state, unspecified Class 1 obesity due to excess calories without serious comorbidity with body mass index (BMI) of 30.0 to 30.9 in adult Tardive dyskinesia Subacute dyskinesia due to drugs 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 Tardive dyskinesia- Primary Subacute dyskinesia due to drugs Tardive dyskinesia- Primary Subacute dyskinesia due to drugs Anxiety Anxiety state, unspecified Tardive dyskinesia- Primary Subacute dyskinesia due to drugs Anxiety Anxiety state, unspecified Tardive dyskinesia- Primary Subacute dyskinesia due to drugs Weight loss Loss of weight Hot flashes Essential hypertension Unspecified essential hypertension Anxiety- Primary Anxiety state, unspecified Tardive dyskinesia Subacute dyskinesia due to drugs Essential hypertension Unspecified essential hypertension Post-menopausal Asymptomatic postmenopausal status (age-related) (natural) Skin lesion Unspecified disorder of skin and subcutaneous tissue 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- Primary Anxiety- Primary Anxiety state, unspecified Recurrent major depressive disorder, in full remission (HCC) Essential hypertension Unspecified essential hypertension Anxiety- Primary Anxiety state, unspecified Recurrent major depressive disorder, in full remission (HCC) Routine general medical examination at health care facility- Primary Routine general medical examination at a health care facility Hyperlipidemia LDL goal <100 Other and unspecified hyperlipidemia Screening for deficiency anemia Screening for other and unspecified deficiency anemia Essential hypertension Unspecified essential hypertension Encounter for screening mammogram for malignant neoplasm of breast Post-menopausal Asymptomatic postmenopausal status (age-related) (natural) Tardive dyskinesia Subacute dyskinesia due to drugs Weight loss Loss of weight TERESA on CPAP Recurrent major depressive disorder, in full remission (HCC) Anxiety Anxiety state, unspecified TERESA on CPAP- Primary Urinary tract infection symptoms- Primary Acute left-sided low back pain without sciatica- Primary Skin lesion Unspecified disorder of skin and subcutaneous tissue Colon cancer screening Special screening for malignant neoplasms, colon Left flank pain Abdominal pain, unspecified site TERESA on CPAP Anxiety Anxiety state, unspecified Recurrent major depressive disorder, in full remission (HCC) Essential hypertension Unspecified essential hypertension Hyperlipidemia LDL goal <100 Other and unspecified hyperlipidemia Urinary tract infection symptoms Acute pain of right shoulder- Primary Mixed stress and urge urinary incontinence Mixed incontinence urge and stress (male)(female) Acute pain of right shoulder- Primary Urinary tract infection symptoms Mixed stress and urge urinary incontinence Mixed incontinence urge and stress (male)(female) Chronic midline low back pain without sciatica Essential hypertension Unspecified essential hypertension Major depressive disorder with single episode, in partial remission (HCC) Closed nondisplaced fracture of head of right radius, initial encounter- Primary documented [facility]* Diagnosis Well female exam with routine gynecological exam- Primary Routine gynecological examination Essential hypertension Unspecified essential hypertension Obesity (BMI 35.0-39.9 without comorbidity) Prediabetes Other abnormal glucose Recurrent major depressive disorder, in full remission (HCC) Anxiety Anxiety state, unspecified Hyperlipidemia LDL goal <100 Other and unspecified hyperlipidemia Screening for colon cancer Special screening for malignant neoplasms, colon Greater trochanteric bursitis of right hip- Primary Class 1 obesity due to excess calories without serious comorbidity with body mass index (BMI) of 31.0 to 31.9 in adult Recurrent major depressive disorder, in full remission (HCC)- Primary Class 1 obesity due to excess calories without serious comorbidity with body mass index (BMI) of 30.0 to 30.9 in adult Tardive dyskinesia- Primary Subacute dyskinesia due to drugs Drug-induced movement disorder Essential hypertension Unspecified essential hypertension Recurrent major depressive disorder, in full remission (HCC) Recurrent major depressive disorder, in full remission (HCC)- Primary Anxiety Anxiety state, unspecified Class 1 obesity due to excess calories without serious comorbidity with body mass index (BMI) of 30.0 to 30.9 in adult Tardive dyskinesia Subacute dyskinesia due to drugs 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 Tardive dyskinesia- Primary Subacute dyskinesia due to drugs Tardive dyskinesia- Primary Subacute dyskinesia due to drugs Anxiety Anxiety state, unspecified Tardive dyskinesia- Primary Subacute dyskinesia due to drugs Anxiety Anxiety state, unspecified Tardive dyskinesia- Primary Subacute dyskinesia due to drugs Weight loss Loss of weight Hot flashes Essential hypertension Unspecified essential hypertension Anxiety- Primary Anxiety state, unspecified Tardive dyskinesia Subacute dyskinesia due to drugs Essential hypertension Unspecified essential hypertension Post-menopausal Asymptomatic postmenopausal status (age-related) (natural) Skin lesion Unspecified disorder of skin and subcutaneous tissue Anxiety- Primary Anxiety state, unspecified Recurrent major depressive disorder, in full remission (HCC) Essential hypertension Unspecified essential hypertension Anxiety- Primary Anxiety state, unspecified Recurrent major depressive disorder, in full remission (HCC) Routine general medical examination at health care facility- Primary Routine general medical examination at a health care facility Hyperlipidemia LDL goal <100 Other and unspecified hyperlipidemia Screening for deficiency anemia Screening for other and unspecified deficiency anemia Essential hypertension Unspecified essential hypertension Encounter for screening mammogram for malignant neoplasm of breast Post-menopausal Asymptomatic postmenopausal status (age-related) (natural) Tardive dyskinesia Subacute dyskinesia due to drugs Weight loss Loss of weight TERESA on CPAP Recurrent major depressive disorder, in full remission (HCC) Anxiety Anxiety state, unspecified TERESA on CPAP- Primary Acute left-sided low back pain without sciatica- Primary Skin lesion Unspecified disorder of skin and subcutaneous tissue Colon cancer screening Special screening for malignant neoplasms, colon Left flank pain Abdominal pain, unspecified site TERESA on CPAP Anxiety Anxiety state, unspecified Recurrent major depressive disorder, in full remission (HCC) Essential hypertension Unspecified essential hypertension Hyperlipidemia LDL goal <100 Other and unspecified hyperlipidemia Urinary tract infection symptoms Acute pain of right shoulder- Primary Mixed stress and urge urinary incontinence Mixed incontinence urge and stress (male)(female) Acute pain of right shoulder- Primary Urinary tract infection symptoms Mixed stress and urge urinary incontinence Mixed incontinence urge and stress (male)(female) Chronic midline low back pain without sciatica Essential hypertension Unspecified essential hypertension Major depressive disorder with single episode, in partial remission (HCC) Closed fracture of right upper extremity, initial encounter- Primary Tardive dyskinesia Subacute dyskinesia due to drugs documented [facility]* Diagnosis Well female exam with routine gynecological exam- Primary Routine gynecological examination Essential hypertension Unspecified essential hypertension Obesity (BMI 35.0-39.9 without comorbidity) Prediabetes Other abnormal glucose Recurrent major depressive disorder, in full remission (HCC) Anxiety Anxiety state, unspecified Hyperlipidemia LDL goal <100 Other and unspecified hyperlipidemia Screening for colon cancer Special screening for malignant neoplasms, colon Greater trochanteric bursitis of right hip- Primary Class 1 obesity due to excess calories without serious comorbidity with body mass index (BMI) of 31.0 to 31.9 in adult Recurrent major depressive disorder, in full remission (HCC)- Primary Class 1 obesity due to excess calories without serious comorbidity with body mass index (BMI) of 30.0 to 30.9 in adult Tardive dyskinesia- Primary Subacute dyskinesia due to drugs Drug-induced movement disorder Essential hypertension Unspecified essential hypertension Recurrent major depressive disorder, in full remission (HCC) Recurrent major depressive disorder, in full remission (HCC)- Primary Anxiety Anxiety state, unspecified Class 1 obesity due to excess calories without serious comorbidity with body mass index (BMI) of 30.0 to 30.9 in adult Tardive dyskinesia Subacute dyskinesia due to drugs 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 Tardive dyskinesia- Primary Subacute dyskinesia due to drugs Tardive dyskinesia- Primary Subacute dyskinesia due to drugs Anxiety Anxiety state, unspecified Tardive dyskinesia- Primary Subacute dyskinesia due to drugs Anxiety Anxiety state, unspecified Tardive dyskinesia- Primary Subacute dyskinesia due to drugs Weight loss Loss of weight Hot flashes Essential hypertension Unspecified essential hypertension Anxiety- Primary Anxiety state, unspecified Tardive dyskinesia Subacute dyskinesia due to drugs Essential hypertension Unspecified essential hypertension Post-menopausal Asymptomatic postmenopausal status (age-related) (natural) Skin lesion Unspecified disorder of skin and subcutaneous tissue Anxiety- Primary Anxiety state, unspecified Recurrent major depressive disorder, in full remission (HCC) Essential hypertension Unspecified essential hypertension Anxiety- Primary Anxiety state, unspecified Recurrent major depressive disorder, in full remission (HCC) Routine general medical examination at health care facility- Primary Routine general medical examination at a health care facility Hyperlipidemia LDL goal <100 Other and unspecified hyperlipidemia Screening for deficiency anemia Screening for other and unspecified deficiency anemia Essential hypertension Unspecified essential hypertension Encounter for screening mammogram for malignant neoplasm of breast Post-menopausal Asymptomatic postmenopausal status (age-related) (natural) Tardive dyskinesia Subacute dyskinesia due to drugs Weight loss Loss of weight TERESA on CPAP Recurrent major depressive disorder, in full remission (HCC) Anxiety Anxiety state, unspecified TERESA on CPAP- Primary Acute left-sided low back pain without sciatica- Primary Skin lesion Unspecified disorder of skin and subcutaneous tissue Colon cancer screening Special screening for malignant neoplasms, colon Left flank pain Abdominal pain, unspecified site TERESA on CPAP Anxiety Anxiety state, unspecified Recurrent major depressive disorder, in full remission (HCC) Essential hypertension Unspecified essential hypertension Hyperlipidemia LDL goal <100 Other and unspecified hyperlipidemia Urinary tract infection symptoms Acute pain of right shoulder- Primary Mixed stress and urge urinary incontinence Mixed incontinence urge and stress (male)(female) Acute pain of right shoulder- Primary Urinary tract infection symptoms Mixed stress and urge urinary incontinence Mixed incontinence urge and stress (male)(female) Chronic midline low back pain without sciatica Essential hypertension Unspecified essential hypertension Major depressive disorder with single episode, in partial remission (HCC) Closed fracture of right upper extremity, initial encounter- Primary Tardive dyskinesia Subacute dyskinesia due to drugs documented in this encounter [facility]* Diagnosis Well female exam with routine gynecological exam- Primary Routine gynecological examination Essential hypertension Unspecified essential hypertension Obesity (BMI 35.0-39.9 without comorbidity) Prediabetes Other abnormal glucose Recurrent major depressive disorder, in full remission (HCC) Anxiety Anxiety state, unspecified Hyperlipidemia LDL goal <100 Other and unspecified hyperlipidemia Screening for colon cancer Special screening for malignant neoplasms, colon Greater trochanteric bursitis of right hip- Primary Class 1 obesity due to excess calories without serious comorbidity with body mass index (BMI) of 31.0 to 31.9 in adult Recurrent major depressive disorder, in full remission (HCC)- Primary Class 1 obesity due to excess calories without serious comorbidity with body mass index (BMI) of 30.0 to 30.9 in adult Tardive dyskinesia- Primary Subacute dyskinesia due to drugs Drug-induced movement disorder Essential hypertension Unspecified essential hypertension Recurrent major depressive disorder, in full remission (HCC) Recurrent major depressive disorder, in full remission (HCC)- Primary Anxiety Anxiety state, unspecified Class 1 obesity due to excess calories without serious comorbidity with body mass index (BMI) of 30.0 to 30.9 in adult Tardive dyskinesia Subacute dyskinesia due to drugs 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 Tardive dyskinesia- Primary Subacute dyskinesia due to drugs Tardive dyskinesia- Primary Subacute dyskinesia due to drugs Anxiety Anxiety state, unspecified Tardive dyskinesia- Primary Subacute dyskinesia due to drugs Anxiety Anxiety state, unspecified Tardive dyskinesia- Primary Subacute dyskinesia due to drugs Weight loss Loss of weight Hot flashes Essential hypertension Unspecified essential hypertension Anxiety- Primary Anxiety state, unspecified Tardive dyskinesia Subacute dyskinesia due to drugs Essential hypertension Unspecified essential hypertension Post-menopausal Asymptomatic postmenopausal status (age-related) (natural) Skin lesion Unspecified disorder of skin and subcutaneous tissue Anxiety- Primary Anxiety state, unspecified Recurrent major depressive disorder, in full remission (HCC) Essential hypertension Unspecified essential hypertension Anxiety- Primary Anxiety state, unspecified Recurrent major depressive disorder, in full remission (HCC) Routine general medical examination at health care facility- Primary Routine general medical examination at a health care facility Hyperlipidemia LDL goal <100 Other and unspecified hyperlipidemia Screening for deficiency anemia Screening for other and unspecified deficiency anemia Essential hypertension Unspecified essential hypertension Encounter for screening mammogram for malignant neoplasm of breast Post-menopausal Asymptomatic postmenopausal status (age-related) (natural) Tardive dyskinesia Subacute dyskinesia due to drugs Weight loss Loss of weight TERESA on CPAP Recurrent major depressive disorder, in full remission (HCC) Anxiety Anxiety state, unspecified TERESA on CPAP- Primary Acute left-sided low back pain without sciatica- Primary Skin lesion Unspecified disorder of skin and subcutaneous tissue Colon cancer screening Special screening for malignant neoplasms, colon Left flank pain Abdominal pain, unspecified site TERESA on CPAP Anxiety Anxiety state, unspecified Recurrent major depressive disorder, in full remission (HCC) Essential hypertension Unspecified essential hypertension Hyperlipidemia LDL goal <100 Other and unspecified hyperlipidemia Urinary tract infection symptoms Acute pain of right shoulder- Primary Mixed stress and urge urinary incontinence Mixed incontinence urge and stress (male)(female) Acute pain of right shoulder- Primary Urinary tract infection symptoms Mixed stress and urge urinary incontinence Mixed incontinence urge and stress (male)(female) Chronic midline low back pain without sciatica Essential hypertension Unspecified essential hypertension Major depressive disorder with single episode, in partial remission (HCC) Routine general medical examination at health care facility- Primary Routine general medical examination at a health care facility Essential hypertension Unspecified essential hypertension Hyperlipidemia LDL goal <100 Other and unspecified hyperlipidemia Screening for deficiency anemia Screening for other and unspecified deficiency anemia Parkinson's disease without dyskinesia or fluctuating manifestations (HCC) Mild dementia without behavioral disturbance, psychotic disturbance, mood disturbance, or anxiety, unspecified dementia type (HCC) Cardiomyopathy, unspecified type (HCC) Chronic congestive heart failure, unspecified heart failure type (HCC) Abnormal electrocardiogram (ECG) (EKG) Closed fracture of right upper extremity with routine healing, subsequent encounter Tardive dyskinesia Subacute dyskinesia due to drugs documented in [facility] encounter [facility]* Diagnosis Well female exam with routine gynecological exam- Primary Routine gynecological examination Essential hypertension Unspecified essential hypertension Obesity (BMI 35.0-39.9 without comorbidity) Prediabetes Other abnormal glucose Recurrent major depressive disorder, in full remission (HCC) Anxiety Anxiety state, unspecified Hyperlipidemia LDL goal <100 Other and unspecified hyperlipidemia Screening for colon cancer Special screening for malignant neoplasms, colon Greater trochanteric bursitis of right hip- Primary Class 1 obesity due to excess calories without serious comorbidity with body mass index (BMI) of 31.0 to 31.9 in adult Recurrent major depressive disorder, in full remission (HCC)- Primary Class 1 obesity due to excess calories without serious comorbidity with body mass index (BMI) of 30.0 to 30.9 in adult Tardive dyskinesia- Primary Subacute dyskinesia due to drugs Drug-induced movement disorder Essential hypertension Unspecified essential hypertension Recurrent major depressive disorder, in full remission (HCC) Recurrent major depressive disorder, in full remission (HCC)- Primary Anxiety Anxiety state, unspecified Class 1 obesity due to excess calories without serious comorbidity with body mass index (BMI) of 30.0 to 30.9 in adult Tardive dyskinesia Subacute dyskinesia due to drugs 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 Tardive dyskinesia- Primary Subacute dyskinesia due to drugs Tardive dyskinesia- Primary Subacute dyskinesia due to drugs Anxiety Anxiety state, unspecified Tardive dyskinesia- Primary Subacute dyskinesia due to drugs Anxiety Anxiety state, unspecified Tardive dyskinesia- Primary Subacute dyskinesia due to drugs Weight loss Loss of weight Hot flashes Essential hypertension Unspecified essential hypertension Anxiety- Primary Anxiety state, unspecified Tardive dyskinesia Subacute dyskinesia due to drugs Essential hypertension Unspecified essential hypertension Post-menopausal Asymptomatic postmenopausal status (age-related) (natural) Skin lesion Unspecified disorder of skin and subcutaneous tissue Anxiety- Primary Anxiety state, unspecified Recurrent major depressive disorder, in full remission (HCC) Essential hypertension Unspecified essential hypertension Anxiety- Primary Anxiety state, unspecified Recurrent major depressive disorder, in full remission (HCC) Routine general medical examination at health care facility- Primary Routine general medical examination at a health care facility Hyperlipidemia LDL goal <100 Other and unspecified hyperlipidemia Screening for deficiency anemia Screening for other and unspecified deficiency anemia Essential hypertension Unspecified essential hypertension Encounter for screening mammogram for malignant neoplasm of breast Post-menopausal Asymptomatic postmenopausal status (age-related) (natural) Tardive dyskinesia Subacute dyskinesia due to drugs Weight loss Loss of weight TERESA on CPAP Recurrent major depressive disorder, in full remission (HCC) Anxiety Anxiety state, unspecified TERESA on CPAP- Primary Acute left-sided low back pain without sciatica- Primary Skin lesion Unspecified disorder of skin and subcutaneous tissue Colon cancer screening Special screening for malignant neoplasms, colon Left flank pain Abdominal pain, unspecified site TERESA on CPAP Anxiety Anxiety state, unspecified Recurrent major depressive disorder, in full remission (HCC) Essential hypertension Unspecified essential hypertension Hyperlipidemia LDL goal <100 Other and unspecified hyperlipidemia Urinary tract infection symptoms Acute pain of right shoulder- Primary Mixed stress and urge urinary incontinence Mixed incontinence urge and stress (male)(female) Acute pain of right shoulder- Primary Urinary tract infection symptoms Mixed stress and urge urinary incontinence Mixed incontinence urge and stress (male)(female) Chronic midline low back pain without sciatica Essential hypertension Unspecified essential hypertension Major depressive disorder with single episode, in partial remission (HCC) Routine general medical examination at health care facility- Primary Routine general medical examination at a health care facility Essential hypertension Unspecified essential hypertension Hyperlipidemia LDL goal <100 Other and unspecified hyperlipidemia Screening for deficiency anemia Screening for other and unspecified deficiency anemia Parkinson's disease without dyskinesia or fluctuating manifestations (HCC) Mild dementia without behavioral disturbance, psychotic disturbance, mood disturbance, or anxiety, unspecified dementia type (HCC) Cardiomyopathy, unspecified type (HCC) Chronic congestive heart failure, unspecified heart failure type (HCC) Abnormal electrocardiogram (ECG) (EKG) Closed fracture of right upper extremity with routine healing, subsequent encounter Tardive dyskinesia Subacute dyskinesia due to drugs Cervical myelopathy (HCC)- Primary Cervical spondylosis with myelopathy Neck pain Cervicalgia Cervical spondylosis Cervical spondylosis without myelopathy Cervical radiculopathy Brachial neuritis or radiculitis nos [facility] Diagnosis Well female exam with routine gynecological exam- Primary Routine gynecological examination Essential hypertension Unspecified essential hypertension Obesity (BMI 35.0-39.9 without comorbidity) Prediabetes Other abnormal glucose Recurrent major depressive disorder, in full remission (HCC) Anxiety Anxiety state, unspecified Hyperlipidemia LDL goal <100 Other and unspecified hyperlipidemia Screening for colon cancer Special screening for malignant neoplasms, colon Greater trochanteric bursitis of right hip- Primary Class 1 obesity due to excess calories without serious comorbidity with body mass index (BMI) of 31.0 to 31.9 in adult Recurrent major depressive disorder, in full remission (HCC)- Primary Class 1 obesity due to excess calories without serious comorbidity with body mass index (BMI) of 30.0 to 30.9 in adult Tardive dyskinesia- Primary Subacute dyskinesia due to drugs Drug-induced movement disorder Essential hypertension Unspecified essential hypertension Recurrent major depressive disorder, in full remission (HCC) Recurrent major depressive disorder, in full remission (HCC)- Primary Anxiety Anxiety state, unspecified Class 1 obesity due to excess calories without serious comorbidity with body mass index (BMI) of 30.0 to 30.9 in adult Tardive dyskinesia Subacute dyskinesia due to drugs 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 Tardive dyskinesia- Primary Subacute dyskinesia due to drugs Tardive dyskinesia- Primary Subacute dyskinesia due to drugs Anxiety Anxiety state, unspecified Tardive dyskinesia- Primary Subacute dyskinesia due to drugs Anxiety Anxiety state, unspecified Tardive dyskinesia- Primary Subacute dyskinesia due to drugs Weight loss Loss of weight Hot flashes Essential hypertension Unspecified essential hypertension Anxiety- Primary Anxiety state, unspecified Tardive dyskinesia Subacute dyskinesia due to drugs Essential hypertension Unspecified essential hypertension Post-menopausal Asymptomatic postmenopausal status (age-related) (natural) Skin lesion Unspecified disorder of skin and subcutaneous tissue Anxiety- Primary Anxiety state, unspecified Recurrent major depressive disorder, in full remission (HCC) Essential hypertension Unspecified essential hypertension Anxiety- Primary Anxiety state, unspecified Recurrent major depressive disorder, in full remission (HCC) Routine general medical examination at health care facility- Primary Routine general medical examination at a health care facility Hyperlipidemia LDL goal <100 Other and unspecified hyperlipidemia Screening for deficiency anemia Screening for other and unspecified deficiency anemia Essential hypertension Unspecified essential hypertension Encounter for screening mammogram for malignant neoplasm of breast Post-menopausal Asymptomatic postmenopausal status (age-related) (natural) Tardive dyskinesia Subacute dyskinesia due to drugs Weight loss Loss of weight TERESA on CPAP Recurrent major depressive disorder, in full remission (HCC) Anxiety Anxiety state, unspecified TERESA on CPAP- Primary Acute left-sided low back pain without sciatica- Primary Skin lesion Unspecified disorder of skin and subcutaneous tissue Colon cancer screening Special screening for malignant neoplasms, colon Left flank pain Abdominal pain, unspecified site TERESA on CPAP Anxiety Anxiety state, unspecified Recurrent major depressive disorder, in full remission (HCC) Essential hypertension Unspecified essential hypertension Hyperlipidemia LDL goal <100 Other and unspecified hyperlipidemia Urinary tract infection symptoms Acute pain of right shoulder- Primary Mixed stress and urge urinary incontinence Mixed incontinence urge and stress (male)(female) Acute pain of right shoulder- Primary Urinary tract infection symptoms Mixed stress and urge urinary incontinence Mixed incontinence urge and stress (male)(female) Chronic midline low back pain without sciatica Essential hypertension Unspecified essential hypertension Major depressive disorder with single episode, in partial remission (HCC) Routine general medical examination at health care facility- Primary Routine general medical examination at a health care facility Essential hypertension Unspecified essential hypertension Hyperlipidemia LDL goal <100 Other and unspecified hyperlipidemia Screening for deficiency anemia Screening for other and unspecified deficiency anemia Parkinson's disease without dyskinesia or fluctuating manifestations (HCC) Mild dementia without behavioral disturbance, psychotic disturbance, mood disturbance, or anxiety, unspecified dementia type (HCC) Cardiomyopathy, unspecified type (HCC) Chronic congestive heart failure, unspecified heart failure type (HCC) Abnormal electrocardiogram (ECG) (EKG) Closed fracture of right upper extremity with routine healing, subsequent encounter Tardive dyskinesia Subacute dyskinesia due to drugs Right arm pain Pain in soft tissues of limb documented [facility]* Diagnosis Well female exam with routine gynecological exam- Primary Routine gynecological examination Essential hypertension Unspecified essential hypertension Obesity (BMI 35.0-39.9 without comorbidity) Prediabetes Other abnormal glucose Recurrent major depressive disorder, in full remission (HCC) Anxiety Anxiety state, unspecified Hyperlipidemia LDL goal <100 Other and unspecified hyperlipidemia Screening for colon cancer Special screening for malignant neoplasms, colon Greater trochanteric bursitis of right hip- Primary Class 1 obesity due to excess calories without serious comorbidity with body mass index (BMI) of 31.0 to 31.9 in adult Recurrent major depressive disorder, in full remission (HCC)- Primary Class 1 obesity due to excess calories without serious comorbidity with body mass index (BMI) of 30.0 to 30.9 in adult Tardive dyskinesia- Primary Subacute dyskinesia due to drugs Drug-induced movement disorder Essential hypertension Unspecified essential hypertension Recurrent major depressive disorder, in full remission (HCC) Recurrent major depressive disorder, in full remission (HCC)- Primary Anxiety Anxiety state, unspecified Class 1 obesity due to excess calories without serious comorbidity with body mass index (BMI) of 30.0 to 30.9 in adult Tardive dyskinesia Subacute dyskinesia due to drugs 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 Tardive dyskinesia- Primary Subacute dyskinesia due to drugs Tardive dyskinesia- Primary Subacute dyskinesia due to drugs Anxiety Anxiety state, unspecified Tardive dyskinesia- Primary Subacute dyskinesia due to drugs Anxiety Anxiety state, unspecified Tardive dyskinesia- Primary Subacute dyskinesia due to drugs Weight loss Loss of weight Hot flashes Essential hypertension Unspecified essential hypertension Anxiety- Primary Anxiety state, unspecified Tardive dyskinesia Subacute dyskinesia due to drugs Essential hypertension Unspecified essential hypertension Post-menopausal Asymptomatic postmenopausal status (age-related) (natural) Skin lesion Unspecified disorder of skin and subcutaneous tissue Anxiety- Primary Anxiety state, unspecified Recurrent major depressive disorder, in full remission (HCC) Essential hypertension Unspecified essential hypertension Anxiety- Primary Anxiety state, unspecified Recurrent major depressive disorder, in full remission (HCC) Routine general medical examination at health care facility- Primary Routine general medical examination at a health care facility Hyperlipidemia LDL goal <100 Other and unspecified hyperlipidemia Screening for deficiency anemia Screening for other and unspecified deficiency anemia Essential hypertension Unspecified essential hypertension Encounter for screening mammogram for malignant neoplasm of breast Post-menopausal Asymptomatic postmenopausal status (age-related) (natural) Tardive dyskinesia Subacute dyskinesia due to drugs Weight loss Loss of weight TERESA on CPAP Recurrent major depressive disorder, in full remission (HCC) Anxiety Anxiety state, unspecified TERESA on CPAP- Primary Acute left-sided low back pain without sciatica- Primary Skin lesion Unspecified disorder of skin and subcutaneous tissue Colon cancer screening Special screening for malignant neoplasms, colon Left flank pain Abdominal pain, unspecified site TERESA on CPAP Anxiety Anxiety state, unspecified Recurrent major depressive disorder, in full remission (HCC) Essential hypertension Unspecified essential hypertension Hyperlipidemia LDL goal <100 Other and unspecified hyperlipidemia Urinary tract infection symptoms Acute pain of right shoulder- Primary Mixed stress and urge urinary incontinence Mixed incontinence urge and stress (male)(female) Acute pain of right shoulder- Primary Urinary tract infection symptoms Mixed stress and urge urinary incontinence Mixed incontinence urge and stress (male)(female) Chronic midline low back pain without sciatica Essential hypertension Unspecified essential hypertension Major depressive disorder with single episode, in partial remission (HCC) Routine general medical examination at health care facility- Primary Routine general medical examination at a health care facility Essential hypertension Unspecified essential hypertension Hyperlipidemia LDL goal <100 Other and unspecified hyperlipidemia Screening for deficiency anemia Screening for other and unspecified deficiency anemia Parkinson's disease without dyskinesia or fluctuating manifestations (HCC) Mild dementia without behavioral disturbance, psychotic disturbance, mood disturbance, or anxiety, unspecified dementia type (HCC) Cardiomyopathy, unspecified type (HCC) Chronic congestive heart failure, unspecified heart failure type (HCC) Abnormal electrocardiogram (ECG) (EKG) Closed fracture of right upper extremity with routine healing, subsequent encounter Tardive dyskinesia Subacute dyskinesia due to drugs Right arm pain- Primary Pain in soft tissues of limb Closed nondisplaced fracture of head of right radius, initial encounter [facility]* Diagnosis Well female exam with routine gynecological exam- Primary Routine gynecological examination Essential hypertension Unspecified essential hypertension Obesity (BMI 35.0-39.9 without comorbidity) Prediabetes Other abnormal glucose Recurrent major depressive disorder, in full remission (HCC) Anxiety Anxiety state, unspecified Hyperlipidemia LDL goal <100 Other and unspecified hyperlipidemia Screening for colon cancer Special screening for malignant neoplasms, colon Greater trochanteric bursitis of right hip- Primary Class 1 obesity due to excess calories without serious comorbidity with body mass index (BMI) of 31.0 to 31.9 in adult Recurrent major depressive disorder, in full remission (HCC)- Primary Class 1 obesity due to excess calories without serious comorbidity with body mass index (BMI) of 30.0 to 30.9 in adult Tardive dyskinesia- Primary Subacute dyskinesia due to drugs Drug-induced movement disorder Essential hypertension Unspecified essential hypertension Recurrent major depressive disorder, in full remission (HCC) Recurrent major depressive disorder, in full remission (HCC)- Primary Anxiety Anxiety state, unspecified Class 1 obesity due to excess calories without serious comorbidity with body mass index (BMI) of 30.0 to 30.9 in adult Tardive dyskinesia Subacute dyskinesia due to drugs 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 Tardive dyskinesia- Primary Subacute dyskinesia due to drugs Tardive dyskinesia- Primary Subacute dyskinesia due to drugs Anxiety Anxiety state, unspecified Tardive dyskinesia- Primary Subacute dyskinesia due to drugs Anxiety Anxiety state, unspecified Tardive dyskinesia- Primary Subacute dyskinesia due to drugs Weight loss Loss of weight Hot flashes Essential hypertension Unspecified essential hypertension Anxiety- Primary Anxiety state, unspecified Tardive dyskinesia Subacute dyskinesia due to drugs Essential hypertension Unspecified essential hypertension Post-menopausal Asymptomatic postmenopausal status (age-related) (natural) Skin lesion Unspecified disorder of skin and subcutaneous tissue Anxiety- Primary Anxiety state, unspecified Recurrent major depressive disorder, in full remission (HCC) Essential hypertension Unspecified essential hypertension Anxiety- Primary Anxiety state, unspecified Recurrent major depressive disorder, in full remission (HCC) Routine general medical examination at health care facility- Primary Routine general medical examination at a health care facility Hyperlipidemia LDL goal <100 Other and unspecified hyperlipidemia Screening for deficiency anemia Screening for other and unspecified deficiency anemia Essential hypertension Unspecified essential hypertension Encounter for screening mammogram for malignant neoplasm of breast Post-menopausal Asymptomatic postmenopausal status (age-related) (natural) Tardive dyskinesia Subacute dyskinesia due to drugs Weight loss Loss of weight TERESA on CPAP Recurrent major depressive disorder, in full remission (HCC) Anxiety Anxiety state, unspecified TERESA on CPAP- Primary Acute left-sided low back pain without sciatica- Primary Skin lesion Unspecified disorder of skin and subcutaneous tissue Colon cancer screening Special screening for malignant neoplasms, colon Left flank pain Abdominal pain, unspecified site TERESA on CPAP Anxiety Anxiety state, unspecified Recurrent major depressive disorder, in full remission (HCC) Essential hypertension Unspecified essential hypertension Hyperlipidemia LDL goal <100 Other and unspecified hyperlipidemia Urinary tract infection symptoms Acute pain of right shoulder- Primary Mixed stress and urge urinary incontinence Mixed incontinence urge and stress (male)(female) Acute pain of right shoulder- Primary Urinary tract infection symptoms Mixed stress and urge urinary incontinence Mixed incontinence urge and stress (male)(female) Chronic midline low back pain without sciatica Essential hypertension Unspecified essential hypertension Major depressive disorder with single episode, in partial remission (HCC) Routine general medical examination at health care facility- Primary Routine general medical examination at a health care facility Essential hypertension Unspecified essential hypertension Hyperlipidemia LDL goal <100 Other and unspecified hyperlipidemia Screening for deficiency anemia Screening for other and unspecified deficiency anemia Parkinson's disease without dyskinesia or fluctuating manifestations (HCC) Mild dementia without behavioral disturbance, psychotic disturbance, mood disturbance, or anxiety, unspecified dementia type (HCC) Cardiomyopathy, unspecified type (HCC) Chronic congestive heart failure, unspecified heart failure type (HCC) Abnormal electrocardiogram (ECG) (EKG) Closed fracture of right upper extremity with routine healing, subsequent encounter Tardive dyskinesia Subacute dyskinesia due to drugs Cardiomyopathy, unspecified type (HCC) Abnormal electrocardiogram (ECG) (EKG) documented in [facility]* Diagnosis Well female exam with routine gynecological exam- Primary Routine gynecological examination Essential hypertension Unspecified essential hypertension Obesity (BMI 35.0-39.9 without comorbidity) Prediabetes Other abnormal glucose Recurrent major depressive disorder, in full remission (HCC) Anxiety Anxiety state, unspecified Hyperlipidemia LDL goal <100 Other and unspecified hyperlipidemia Screening for colon cancer Special screening for malignant neoplasms, colon Greater trochanteric bursitis of right hip- Primary Class 1 obesity due to excess calories without serious comorbidity with body mass index (BMI) of 31.0 to 31.9 in adult Recurrent major depressive disorder, in full remission (HCC)- Primary Class 1 obesity due to excess calories without serious comorbidity with body mass index (BMI) of 30.0 to 30.9 in adult Tardive dyskinesia- Primary Subacute dyskinesia due to drugs Drug-induced movement disorder Essential hypertension Unspecified essential hypertension Recurrent major depressive disorder, in full remission (HCC) Recurrent major depressive disorder, in full remission (HCC)- Primary Anxiety Anxiety state, unspecified Class 1 obesity due to excess calories without serious comorbidity with body mass index (BMI) of 30.0 to 30.9 in adult Tardive dyskinesia Subacute dyskinesia due to drugs 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 Tardive dyskinesia- Primary Subacute dyskinesia due to drugs Tardive dyskinesia- Primary Subacute dyskinesia due to drugs Anxiety Anxiety state, unspecified Tardive dyskinesia- Primary Subacute dyskinesia due to drugs Anxiety Anxiety state, unspecified Tardive dyskinesia- Primary Subacute dyskinesia due to drugs Weight loss Loss of weight Hot flashes Essential hypertension Unspecified essential hypertension Anxiety- Primary Anxiety state, unspecified Tardive dyskinesia Subacute dyskinesia due to drugs Essential hypertension Unspecified essential hypertension Post-menopausal Asymptomatic postmenopausal status (age-related) (natural) Skin lesion Unspecified disorder of skin and subcutaneous tissue Anxiety- Primary Anxiety state, unspecified Recurrent major depressive disorder, in full remission (HCC) Essential hypertension Unspecified essential hypertension Anxiety- Primary Anxiety state, unspecified Recurrent major depressive disorder, in full remission (HCC) Routine general medical examination at health care facility- Primary Routine general medical examination at a health care facility Hyperlipidemia LDL goal <100 Other and unspecified hyperlipidemia Screening for deficiency anemia Screening for other and unspecified deficiency anemia Essential hypertension Unspecified essential hypertension Encounter for screening mammogram for malignant neoplasm of breast Post-menopausal Asymptomatic postmenopausal status (age-related) (natural) Tardive dyskinesia Subacute dyskinesia due to drugs Weight loss Loss of weight TERESA on CPAP Recurrent major depressive disorder, in full remission (HCC) Anxiety Anxiety state, unspecified TERESA on CPAP- Primary Acute left-sided low back pain without sciatica- Primary Skin lesion Unspecified disorder of skin and subcutaneous tissue Colon cancer screening Special screening for malignant neoplasms, colon Left flank pain Abdominal pain, unspecified site TERESA on CPAP Anxiety Anxiety state, unspecified Recurrent major depressive disorder, in full remission (HCC) Essential hypertension Unspecified essential hypertension Hyperlipidemia LDL goal <100 Other and unspecified hyperlipidemia Urinary tract infection symptoms Acute pain of right shoulder- Primary Mixed stress and urge urinary incontinence Mixed incontinence urge and stress (male)(female) Acute pain of right shoulder- Primary Urinary tract infection symptoms Mixed stress and urge urinary incontinence Mixed incontinence urge and stress (male)(female) Chronic midline low back pain without sciatica Essential hypertension Unspecified essential hypertension Major depressive disorder with single episode, in partial remission (HCC) Routine general medical examination at health care facility- Primary Routine general medical examination at a health care facility Essential hypertension Unspecified essential hypertension Hyperlipidemia LDL goal <100 Other and unspecified hyperlipidemia Screening for deficiency anemia Screening for other and unspecified deficiency anemia Parkinson's disease without dyskinesia or fluctuating manifestations (HCC) Mild dementia without behavioral disturbance, psychotic disturbance, mood disturbance, or anxiety, unspecified dementia type (HCC) Cardiomyopathy, unspecified type (HCC) Chronic congestive heart failure, unspecified heart failure type (HCC) Abnormal electrocardiogram (ECG) (EKG) Closed fracture of right upper extremity with routine healing, subsequent encounter Tardive dyskinesia Subacute dyskinesia due to drugs Post-menopausal Asymptomatic postmenopausal status (age-related) (natural) documented in [facility]* Diagnosis Well female exam with routine gynecological exam- Primary Routine gynecological examination Essential hypertension Unspecified essential hypertension Obesity (BMI 35.0-39.9 without comorbidity) Prediabetes Other abnormal glucose Recurrent major depressive disorder, in full remission (HCC) Anxiety Anxiety state, unspecified Hyperlipidemia LDL goal <100 Other and unspecified hyperlipidemia Screening for colon cancer Special screening for malignant neoplasms, colon Greater trochanteric bursitis of right hip- Primary Class 1 obesity due to excess calories without serious comorbidity with body mass index (BMI) of 31.0 to 31.9 in adult Recurrent major depressive disorder, in full remission (HCC)- Primary Class 1 obesity due to excess calories without serious comorbidity with body mass index (BMI) of 30.0 to 30.9 in adult Tardive dyskinesia- Primary Subacute dyskinesia due to drugs Drug-induced movement disorder Essential hypertension Unspecified essential hypertension Recurrent major depressive disorder, in full remission (HCC) Recurrent major depressive disorder, in full remission (HCC)- Primary Anxiety Anxiety state, unspecified Class 1 obesity due to excess calories without serious comorbidity with body mass index (BMI) of 30.0 to 30.9 in adult Tardive dyskinesia Subacute dyskinesia due to drugs 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 Tardive dyskinesia- Primary Subacute dyskinesia due to drugs Tardive dyskinesia- Primary Subacute dyskinesia due to drugs Anxiety Anxiety state, unspecified Tardive dyskinesia- Primary Subacute dyskinesia due to drugs Anxiety Anxiety state, unspecified Tardive dyskinesia- Primary Subacute dyskinesia due to drugs Weight loss Loss of weight Hot flashes Essential hypertension Unspecified essential hypertension Anxiety- Primary Anxiety state, unspecified Tardive dyskinesia Subacute dyskinesia due to drugs Essential hypertension Unspecified essential hypertension Post-menopausal Asymptomatic postmenopausal status (age-related) (natural) Skin lesion Unspecified disorder of skin and subcutaneous tissue Anxiety- Primary Anxiety state, unspecified Recurrent major depressive disorder, in full remission (HCC) Essential hypertension Unspecified essential hypertension Anxiety- Primary Anxiety state, unspecified Recurrent major depressive disorder, in full remission (HCC) Routine general medical examination at health care facility- Primary Routine general medical examination at a health care facility Hyperlipidemia LDL goal <100 Other and unspecified hyperlipidemia Screening for deficiency anemia Screening for other and unspecified deficiency anemia Essential hypertension Unspecified essential hypertension Encounter for screening mammogram for malignant neoplasm of breast Post-menopausal Asymptomatic postmenopausal status (age-related) (natural) Tardive dyskinesia Subacute dyskinesia due to drugs Weight loss Loss of weight TERESA on CPAP Recurrent major depressive disorder, in full remission (HCC) Anxiety Anxiety state, unspecified TERESA on CPAP- Primary Acute left-sided low back pain without sciatica- Primary Skin lesion Unspecified disorder of skin and subcutaneous tissue Colon cancer screening Special screening for malignant neoplasms, colon Left flank pain Abdominal pain, unspecified site TERESA on CPAP Anxiety Anxiety state, unspecified Recurrent major depressive disorder, in full remission (HCC) Essential hypertension Unspecified essential hypertension Hyperlipidemia LDL goal <100 Other and unspecified hyperlipidemia Urinary tract infection symptoms Acute pain of right shoulder- Primary Mixed stress and urge urinary incontinence Mixed incontinence urge and stress (male)(female) Acute pain of right shoulder- Primary Urinary tract infection symptoms Mixed stress and urge urinary incontinence Mixed incontinence urge and stress (male)(female) Chronic midline low back pain without sciatica Essential hypertension Unspecified essential hypertension Major depressive disorder with single episode, in partial remission (HCC) Routine general medical examination at health care facility- Primary Routine general medical examination at a health care facility Essential hypertension Unspecified essential hypertension Hyperlipidemia LDL goal <100 Other and unspecified hyperlipidemia Screening for deficiency anemia Screening for other and unspecified deficiency anemia Parkinson's disease without dyskinesia or fluctuating manifestations (HCC) Mild dementia without behavioral disturbance, psychotic disturbance, mood disturbance, or anxiety, unspecified dementia type (HCC) Cardiomyopathy, unspecified type (HCC) Chronic congestive heart failure, unspecified heart failure type (HCC) Abnormal electrocardiogram (ECG) (EKG) Closed fracture of right upper extremity with routine healing, subsequent encounter Tardive dyskinesia Subacute dyskinesia due to drugs Osteopenia, unspecified location- Primary documented in this encounter [facility]* Diagnosis Well female exam with routine gynecological exam- Primary Routine gynecological examination Essential hypertension Unspecified essential hypertension Obesity (BMI 35.0-39.9 without comorbidity) Prediabetes Other abnormal glucose Recurrent major depressive disorder, in full remission (HCC) Anxiety Anxiety state, unspecified Hyperlipidemia LDL goal <100 Other and unspecified hyperlipidemia Screening for colon cancer Special screening for malignant neoplasms, colon Greater trochanteric bursitis of right hip- Primary Class 1 obesity due to excess calories without serious comorbidity with body mass index (BMI) of 31.0 to 31.9 in adult Recurrent major depressive disorder, in full remission (HCC)- Primary Class 1 obesity due to excess calories without serious comorbidity with body mass index (BMI) of 30.0 to 30.9 in adult Tardive dyskinesia- Primary Subacute dyskinesia due to drugs Drug-induced movement disorder Essential hypertension Unspecified essential hypertension Recurrent major depressive disorder, in full remission (HCC) Recurrent major depressive disorder, in full remission ([facility] [place])- Primary Anxiety Anxiety state, unspecified Class 1 obesity due to excess calories without serious comorbidity with body mass index (BMI) of 30.0 to 30.9 in adult Tardive dyskinesia Subacute dyskinesia due to drugs 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 Tardive dyskinesia- Primary Subacute dyskinesia due to drugs Tardive dyskinesia- Primary Subacute dyskinesia due to drugs Anxiety Anxiety state, unspecified Tardive dyskinesia- Primary Subacute dyskinesia due to drugs Anxiety Anxiety state, unspecified Tardive dyskinesia- Primary Subacute dyskinesia due to drugs Weight loss Loss of weight Hot flashes Essential hypertension Unspecified essential hypertension Anxiety- Primary Anxiety state, unspecified Tardive dyskinesia Subacute dyskinesia due to drugs Essential hypertension Unspecified essential hypertension Post-menopausal Asymptomatic postmenopausal status (age-related) (natural) Skin lesion Unspecified disorder of skin and subcutaneous tissue Anxiety- Primary Anxiety state, unspecified Recurrent major depressive disorder, in full remission (HCC) Essential hypertension Unspecified essential hypertension Anxiety- Primary Anxiety state, unspecified Recurrent major depressive disorder, in full remission (HCC) Routine general medical examination at health care facility- Primary Routine general medical examination at a health care facility Hyperlipidemia LDL goal <100 Other and unspecified hyperlipidemia Screening for deficiency anemia Screening for other and unspecified deficiency anemia Essential hypertension Unspecified essential hypertension Encounter for screening mammogram for malignant neoplasm of breast Post-menopausal Asymptomatic postmenopausal status (age-related) (natural) Tardive dyskinesia Subacute dyskinesia due to drugs Weight loss Loss of weight TERESA on CPAP Recurrent major depressive disorder, in full remission (HCC) Anxiety Anxiety state, unspecified TERESA on CPAP- Primary Acute left-sided low back pain without sciatica- Primary Skin lesion Unspecified disorder of skin and subcutaneous tissue Colon cancer screening Special screening for malignant neoplasms, colon Left flank pain Abdominal pain, unspecified site TERESA on CPAP Anxiety Anxiety state, unspecified Recurrent major depressive disorder, in full remission (HCC) Essential hypertension Unspecified essential hypertension Hyperlipidemia LDL goal <100 Other and unspecified hyperlipidemia Urinary tract infection symptoms Acute pain of right shoulder- Primary Mixed stress and urge urinary incontinence Mixed incontinence urge and stress (male)(female) Acute pain of right shoulder- Primary Urinary tract infection symptoms Mixed stress and urge urinary incontinence Mixed incontinence urge and stress (male)(female) Chronic midline low back pain without sciatica Essential hypertension Unspecified essential hypertension Major depressive disorder with single episode, in partial remission (HCC) Routine general medical examination at health care facility- Primary Routine general medical examination at a health care facility Essential hypertension Unspecified essential hypertension Hyperlipidemia LDL goal <100 Other and unspecified hyperlipidemia Screening for deficiency anemia Screening for other and unspecified deficiency anemia Parkinson's disease without dyskinesia or fluctuating manifestations (HCC) Mild dementia without behavioral disturbance, psychotic disturbance, mood disturbance, or anxiety, unspecified dementia type (HCC) Cardiomyopathy, unspecified type (HCC) Chronic congestive heart failure, unspecified heart failure type (HCC) Abnormal electrocardiogram (ECG) (EKG) Closed fracture of right upper extremity with routine healing, subsequent encounter Tardive dyskinesia Subacute dyskinesia due to drugs Osteopenia, unspecified location- Primary documented in this encounter [facility]* Diagnosis Well female exam with routine gynecological exam- Primary Routine gynecological examination Essential hypertension Unspecified essential hypertension Obesity (BMI 35.0-39.9 without comorbidity) Prediabetes Other abnormal glucose Recurrent major depressive disorder, in full remission (HCC) Anxiety Anxiety state, unspecified Hyperlipidemia LDL goal <100 Other and unspecified hyperlipidemia Screening for colon cancer Special screening for malignant neoplasms, colon Greater trochanteric bursitis of right hip- Primary Class 1 obesity due to excess calories without serious comorbidity with body mass index (BMI) of 31.0 to 31.9 in adult Recurrent major depressive disorder, in full remission (HCC)- Primary Class 1 obesity due to excess calories without serious comorbidity with body mass index (BMI) of 30.0 to 30.9 in adult Tardive dyskinesia- Primary Subacute dyskinesia due to drugs Drug-induced movement disorder Essential hypertension Unspecified essential hypertension Recurrent major depressive disorder, in full remission (HCC) Recurrent major depressive disorder, in full remission (HCC)- Primary Anxiety Anxiety state, unspecified Class 1 obesity due to excess calories without serious comorbidity with body mass index (BMI) of 30.0 to 30.9 in adult Tardive dyskinesia Subacute dyskinesia due to drugs 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 Tardive dyskinesia- Primary Subacute dyskinesia due to drugs Tardive dyskinesia- Primary Subacute dyskinesia due to drugs Anxiety Anxiety state, unspecified Tardive dyskinesia- Primary Subacute dyskinesia due to drugs Anxiety Anxiety state, unspecified Tardive dyskinesia- Primary Subacute dyskinesia due to drugs Weight loss Loss of weight Hot flashes Essential hypertension Unspecified essential hypertension Anxiety- Primary Anxiety state, unspecified Tardive dyskinesia Subacute dyskinesia due to drugs Essential hypertension Unspecified essential hypertension Post-menopausal Asymptomatic postmenopausal status (age-related) (natural) Skin lesion Unspecified disorder of skin and subcutaneous tissue Anxiety- Primary Anxiety state, unspecified Recurrent major depressive disorder, in full remission (HCC) Essential hypertension Unspecified essential hypertension Anxiety- Primary Anxiety state, unspecified Recurrent major depressive disorder, in full remission (HCC) Routine general medical examination at health care facility- Primary Routine general medical examination at a health care facility Hyperlipidemia LDL goal <100 Other and unspecified hyperlipidemia Screening for deficiency anemia Screening for other and unspecified deficiency anemia Essential hypertension Unspecified essential hypertension Encounter for screening mammogram for malignant neoplasm of breast Post-menopausal Asymptomatic postmenopausal status (age-related) (natural) Tardive dyskinesia Subacute dyskinesia due to drugs Weight loss Loss of weight TERESA on CPAP Recurrent major depressive disorder, in full remission (HCC) Anxiety Anxiety state, unspecified TERESA on CPAP- Primary Acute left-sided low back pain without sciatica- Primary Skin lesion Unspecified disorder of skin and subcutaneous tissue Colon cancer screening Special screening for malignant neoplasms, colon Left flank pain Abdominal pain, unspecified site TERESA on CPAP Anxiety Anxiety state, unspecified Recurrent major depressive disorder, in full remission (HCC) Essential hypertension Unspecified essential hypertension Hyperlipidemia LDL goal <100 Other and unspecified hyperlipidemia Urinary tract infection symptoms Acute pain of right shoulder- Primary Mixed stress and urge urinary incontinence Mixed incontinence urge and stress (male)(female) Acute pain of right shoulder- Primary Urinary tract infection symptoms Mixed stress and urge urinary incontinence Mixed incontinence urge and stress (male)(female) Chronic midline low back pain without sciatica Essential hypertension Unspecified essential hypertension Major depressive disorder with single episode, in partial remission (HCC) Routine general medical examination at health care facility- Primary Routine general medical examination at a health care facility Essential hypertension Unspecified essential hypertension Hyperlipidemia LDL goal <100 Other and unspecified hyperlipidemia Screening for deficiency anemia Screening for other and unspecified deficiency anemia Parkinson's disease without dyskinesia or fluctuating manifestations (HCC) Mild dementia without behavioral disturbance, psychotic disturbance, mood disturbance, or anxiety, unspecified dementia type (HCC) Cardiomyopathy, unspecified type (HCC) Chronic congestive heart failure, unspecified heart failure type (HCC) Abnormal electrocardiogram (ECG) (EKG) Closed fracture of right upper extremity with routine healing, subsequent encounter Tardive dyskinesia Subacute dyskinesia due to drugs Encounter for screening mammogram for malignant neoplasm of breast documented in this encounter [facility]* Diagnosis Well female exam with routine gynecological exam- Primary Routine gynecological examination Essential hypertension Unspecified essential hypertension Obesity (BMI 35.0-39.9 without comorbidity) Prediabetes Other abnormal glucose Recurrent major depressive disorder, in full remission (HCC) Anxiety Anxiety state, unspecified Hyperlipidemia LDL goal <100 Other and unspecified hyperlipidemia Screening for colon cancer Special screening for malignant neoplasms, colon Greater trochanteric bursitis of right hip- Primary Class 1 obesity due to excess calories without serious comorbidity with body mass index (BMI) of 31.0 to 31.9 in adult Recurrent major depressive disorder, in full remission (HCC)- Primary Class 1 obesity due to excess calories without serious comorbidity with body mass index (BMI) of 30.0 to 30.9 in adult Tardive dyskinesia- Primary Subacute dyskinesia due to drugs Drug-induced movement disorder Essential hypertension Unspecified essential hypertension Recurrent major depressive disorder, in full remission (HCC) Recurrent major depressive disorder, in full remission (HCC)- Primary Anxiety Anxiety state, unspecified Class 1 obesity due to excess calories without serious comorbidity with body mass index (BMI) of 30.0 to 30.9 in adult Tardive dyskinesia Subacute dyskinesia due to drugs 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 Tardive dyskinesia- Primary Subacute dyskinesia due to drugs Tardive dyskinesia- Primary Subacute dyskinesia due to drugs Anxiety Anxiety state, unspecified Tardive dyskinesia- Primary Subacute dyskinesia due to drugs Anxiety Anxiety state, unspecified Tardive dyskinesia- Primary Subacute dyskinesia due to drugs Weight loss Loss of weight Hot flashes Essential hypertension Unspecified essential hypertension Anxiety- Primary Anxiety state, unspecified Tardive dyskinesia Subacute dyskinesia due to drugs Essential hypertension Unspecified essential hypertension Post-menopausal Asymptomatic postmenopausal status (age-related) (natural) Skin lesion Unspecified disorder of skin and subcutaneous tissue Anxiety- Primary Anxiety state, unspecified Recurrent major depressive disorder, in full remission (HCC) Essential hypertension Unspecified essential hypertension Anxiety- Primary Anxiety state, unspecified Recurrent major depressive disorder, in full remission (HCC) Routine general medical examination at health care facility- Primary Routine general medical examination at a health care facility Hyperlipidemia LDL goal <100 Other and unspecified hyperlipidemia Screening for deficiency anemia Screening for other and unspecified deficiency anemia Essential hypertension Unspecified essential hypertension Encounter for screening mammogram for malignant neoplasm of breast Post-menopausal Asymptomatic postmenopausal status (age-related) (natural) Tardive dyskinesia Subacute dyskinesia due to drugs Weight loss Loss of weight TERESA on CPAP Recurrent major depressive disorder, in full remission (HCC) Anxiety Anxiety state, unspecified TERESA on CPAP- Primary Acute left-sided low back pain without sciatica- Primary Skin lesion Unspecified disorder of skin and subcutaneous tissue Colon cancer screening Special screening for malignant neoplasms, colon Left flank pain Abdominal pain, unspecified site TERESA on CPAP Anxiety Anxiety state, unspecified Recurrent major depressive disorder, in full remission (HCC) Essential hypertension Unspecified essential hypertension Hyperlipidemia LDL goal <100 Other and unspecified hyperlipidemia Urinary tract infection symptoms Acute pain of right shoulder- Primary Mixed stress and urge urinary incontinence Mixed incontinence urge and stress (male)(female) Acute pain of right shoulder- Primary Urinary tract infection symptoms Mixed stress and urge urinary incontinence Mixed incontinence urge and stress (male)(female) Chronic midline low back pain without sciatica Essential hypertension Unspecified essential hypertension Major depressive disorder with single episode, in partial remission (HCC) Routine general medical examination at health care facility- Primary Routine general medical examination at a health care facility Essential hypertension Unspecified essential hypertension Hyperlipidemia LDL goal <100 Other and unspecified hyperlipidemia Screening for deficiency anemia Screening for other and unspecified deficiency anemia Parkinson's disease without dyskinesia or fluctuating manifestations (HCC) Mild dementia without behavioral disturbance, psychotic disturbance, mood disturbance, or anxiety, unspecified dementia type (HCC) Cardiomyopathy, unspecified type (HCC) Chronic congestive heart failure, unspecified heart failure type (HCC) Abnormal electrocardiogram (ECG) (EKG) Closed fracture of right upper extremity with routine healing, subsequent encounter Tardive dyskinesia Subacute dyskinesia due to drugs Abnormal mammogram- Primary Abnormal mammogram, unspecified documented in this encounter [facility]* Diagnosis Well female exam with routine gynecological exam- Primary Routine gynecological examination Essential hypertension Unspecified essential hypertension Obesity (BMI 35.0-39.9 without comorbidity) Prediabetes Other abnormal glucose Recurrent major depressive disorder, in full remission (HCC) Anxiety Anxiety state, unspecified Hyperlipidemia LDL goal <100 Other and unspecified hyperlipidemia Screening for colon cancer Special screening for malignant neoplasms, colon Greater trochanteric bursitis of right hip- Primary Class 1 obesity due to excess calories without serious comorbidity with body mass index (BMI) of 31.0 to 31.9 in adult Recurrent major depressive disorder, in full remission (HCC)- Primary Class 1 obesity due to excess calories without serious comorbidity with body mass index (BMI) of 30.0 to 30.9 in adult Tardive dyskinesia- Primary Subacute dyskinesia due to drugs Drug-induced movement disorder Essential hypertension Unspecified essential hypertension Recurrent major depressive disorder, in full remission (HCC) Recurrent major depressive disorder, in full remission (HCC)- Primary Anxiety Anxiety state, unspecified Class 1 obesity due to excess calories without serious comorbidity with body mass index (BMI) of 30.0 to 30.9 in adult Tardive dyskinesia Subacute dyskinesia due to drugs 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 Tardive dyskinesia- Primary Subacute dyskinesia due to drugs Tardive dyskinesia- Primary Subacute dyskinesia due to drugs Anxiety Anxiety state, unspecified Tardive dyskinesia- Primary Subacute dyskinesia due to drugs Anxiety Anxiety state, unspecified Tardive dyskinesia- Primary Subacute dyskinesia due to drugs Weight loss Loss of weight Hot flashes Essential hypertension Unspecified essential hypertension Anxiety- Primary Anxiety state, unspecified Tardive dyskinesia Subacute dyskinesia due to drugs Essential hypertension Unspecified essential hypertension Post-menopausal Asymptomatic postmenopausal status (age-related) (natural) Skin lesion Unspecified disorder of skin and subcutaneous tissue Anxiety- Primary Anxiety state, unspecified Recurrent major depressive disorder, in full remission (HCC) Essential hypertension Unspecified essential hypertension Anxiety- Primary Anxiety state, unspecified Recurrent major depressive disorder, in full remission (HCC) Routine general medical examination at health care facility- Primary Routine general medical examination at a health care facility Hyperlipidemia LDL goal <100 Other and unspecified hyperlipidemia Screening for deficiency anemia Screening for other and unspecified deficiency anemia Essential hypertension Unspecified essential hypertension Encounter for screening mammogram for malignant neoplasm of breast Post-menopausal Asymptomatic postmenopausal status (age-related) (natural) Tardive dyskinesia Subacute dyskinesia due to drugs Weight loss Loss of weight TERESA on CPAP Recurrent major depressive disorder, in full remission (HCC) Anxiety Anxiety state, unspecified TERESA on CPAP- Primary Acute left-sided low back pain without sciatica- Primary Skin lesion Unspecified disorder of skin and subcutaneous tissue Colon cancer screening Special screening for malignant neoplasms, colon Left flank pain Abdominal pain, unspecified site TERESA on CPAP Anxiety Anxiety state, unspecified Recurrent major depressive disorder, in full remission (HCC) Essential hypertension Unspecified essential hypertension Hyperlipidemia LDL goal <100 Other and unspecified hyperlipidemia Urinary tract infection symptoms Acute pain of right shoulder- Primary Mixed stress and urge urinary incontinence Mixed incontinence urge and stress (male)(female) Acute pain of right shoulder- Primary Urinary tract infection symptoms Mixed stress and urge urinary incontinence Mixed incontinence urge and stress (male)(female) Chronic midline low back pain without sciatica Essential hypertension Unspecified essential hypertension Major depressive disorder with single episode, in partial remission (HCC) Routine general medical examination at health care facility- Primary Routine general medical examination at a health care facility Essential hypertension Unspecified essential hypertension Hyperlipidemia LDL goal <100 Other and unspecified hyperlipidemia Screening for deficiency anemia Screening for other and unspecified deficiency anemia Parkinson's disease without dyskinesia or fluctuating manifestations (HCC) Mild dementia without behavioral disturbance, psychotic disturbance, mood disturbance, or anxiety, unspecified dementia type (HCC) Cardiomyopathy, unspecified type (HCC) Chronic congestive heart failure, unspecified heart failure type (HCC) Abnormal electrocardiogram (ECG) (EKG) Closed fracture of right upper extremity with routine healing, subsequent encounter Tardive dyskinesia Subacute dyskinesia due to drugs Neuroleptic-induced tardive dyskinesia- Primary Subacute dyskinesia due to drugs documented in this encounter [facility] note* Diagnosis Well female exam with routine gynecological exam- Primary Routine gynecological examination Essential hypertension Unspecified essential hypertension Obesity (BMI 35.0-39.9 without comorbidity) Prediabetes Other abnormal glucose Recurrent major depressive disorder, in full remission (HCC) Anxiety Anxiety state, unspecified Hyperlipidemia LDL goal <100 Other and unspecified hyperlipidemia Screening for colon cancer Special screening for malignant neoplasms, colon Greater trochanteric bursitis of right hip- Primary Class 1 obesity due to excess calories without serious comorbidity with body mass index (BMI) of 31.0 to 31.9 in adult Recurrent major depressive disorder, in full remission (HCC)- Primary Class 1 obesity due to excess calories without serious comorbidity with body mass index (BMI) of 30.0 to 30.9 in adult Tardive dyskinesia- Primary Subacute dyskinesia due to drugs Drug-induced movement disorder Essential hypertension Unspecified essential hypertension Recurrent major depressive disorder, in full remission (HCC) Recurrent major depressive disorder, in full remission (HCC)- Primary Anxiety Anxiety state, unspecified Class 1 obesity due to excess calories without serious comorbidity with body mass index (BMI) of 30.0 to 30.9 in adult Tardive dyskinesia Subacute dyskinesia due to drugs 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 Tardive dyskinesia- Primary Subacute dyskinesia due to drugs Tardive dyskinesia- Primary Subacute dyskinesia due to drugs Anxiety Anxiety state, unspecified Tardive dyskinesia- Primary Subacute dyskinesia due to drugs Anxiety Anxiety state, unspecified Tardive dyskinesia- Primary Subacute dyskinesia due to drugs Weight loss Loss of weight Hot flashes Essential hypertension Unspecified essential hypertension Anxiety- Primary Anxiety state, unspecified Tardive dyskinesia Subacute dyskinesia due to drugs Essential hypertension Unspecified essential hypertension Post-menopausal Asymptomatic postmenopausal status (age-related) (natural) Skin lesion Unspecified disorder of skin and subcutaneous tissue Anxiety- Primary Anxiety state, unspecified Recurrent major depressive disorder, in full remission (HCC) Essential hypertension Unspecified essential hypertension Anxiety- Primary Anxiety state, unspecified Recurrent major depressive disorder, in full remission (HCC) Routine general medical examination at health care facility- Primary Routine general medical examination at a health care facility Hyperlipidemia LDL goal <100 Other and unspecified hyperlipidemia Screening for deficiency anemia Screening for other and unspecified deficiency anemia Essential hypertension Unspecified essential hypertension Encounter for screening mammogram for malignant neoplasm of breast Post-menopausal Asymptomatic postmenopausal status (age-related) (natural) Tardive dyskinesia Subacute dyskinesia due to drugs Weight loss Loss of weight TERESA on CPAP Recurrent major depressive disorder, in full remission (HCC) Anxiety Anxiety state, unspecified TERESA on CPAP- Primary Acute left-sided low back pain without sciatica- Primary Skin lesion Unspecified disorder of skin and subcutaneous tissue Colon cancer screening Special screening for malignant neoplasms, colon Left flank pain Abdominal pain, unspecified site TERESA on CPAP Anxiety Anxiety state, unspecified Recurrent major depressive disorder, in full remission (HCC) Essential hypertension Unspecified essential hypertension Hyperlipidemia LDL goal <100 Other and unspecified hyperlipidemia Urinary tract infection symptoms Acute pain of right shoulder- Primary Mixed stress and urge urinary incontinence Mixed incontinence urge and stress (male)(female) Acute pain of right shoulder- Primary Urinary tract infection symptoms Mixed stress and urge urinary incontinence Mixed incontinence urge and stress (male)(female) Chronic midline low back pain without sciatica Essential hypertension Unspecified essential hypertension Major depressive disorder with single episode, in partial remission (HCC) Routine general medical examination at health care facility- Primary Routine general medical examination at a health care facility Essential hypertension Unspecified essential hypertension Hyperlipidemia LDL goal <100 Other and unspecified hyperlipidemia Screening for deficiency anemia Screening for other and unspecified deficiency anemia Parkinson's disease without dyskinesia or fluctuating manifestations (HCC) Mild dementia without behavioral disturbance, psychotic disturbance, mood disturbance, or anxiety, unspecified dementia type (HCC) Cardiomyopathy, unspecified type (HCC) Chronic congestive heart failure, unspecified heart failure type (HCC) Abnormal electrocardiogram (ECG) (EKG) Closed fracture of right upper extremity with routine healing, subsequent encounter Tardive dyskinesia Subacute dyskinesia due to drugs Dyskinesia 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 documented in this encounter [facility]* Diagnosis Well female exam with routine gynecological exam- Primary Routine gynecological examination Essential hypertension Unspecified essential hypertension Obesity (BMI 35.0-39.9 without comorbidity) Prediabetes Other abnormal glucose Recurrent major depressive disorder, in full remission (HCC) Anxiety Anxiety state, unspecified Hyperlipidemia LDL goal <100 Other and unspecified hyperlipidemia Screening for colon cancer Special screening for malignant neoplasms, colon Greater trochanteric bursitis of right hip- Primary Class 1 obesity due to excess calories without serious comorbidity with body mass index (BMI) of 31.0 to 31.9 in adult Recurrent major depressive disorder, in full remission (HCC)- Primary Class 1 obesity due to excess calories without serious comorbidity with body mass index (BMI) of 30.0 to 30.9 in adult Tardive dyskinesia- Primary Subacute dyskinesia due to drugs Drug-induced movement disorder Essential hypertension Unspecified essential hypertension Recurrent major depressive disorder, in full remission (HCC) Recurrent major depressive disorder, in full remission (HCC)- Primary Anxiety Anxiety state, unspecified Class 1 obesity due to excess calories without serious comorbidity with body mass index (BMI) of 30.0 to 30.9 in adult Tardive dyskinesia Subacute dyskinesia due to drugs 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 Tardive dyskinesia- Primary Subacute dyskinesia due to drugs Tardive dyskinesia- Primary Subacute dyskinesia due to drugs Anxiety Anxiety state, unspecified Tardive dyskinesia- Primary Subacute dyskinesia due to drugs Anxiety Anxiety state, unspecified Tardive dyskinesia- Primary Subacute dyskinesia due to drugs Weight loss Loss of weight Hot flashes Essential hypertension Unspecified essential hypertension Anxiety- Primary Anxiety state, unspecified Tardive dyskinesia Subacute dyskinesia due to drugs Essential hypertension Unspecified essential hypertension Post-menopausal Asymptomatic postmenopausal status (age-related) (natural) Skin lesion Unspecified disorder of skin and subcutaneous tissue Anxiety- Primary Anxiety state, unspecified Recurrent major depressive disorder, in full remission (HCC) Essential hypertension Unspecified essential hypertension Anxiety- Primary Anxiety state, unspecified Recurrent major depressive disorder, in full remission (HCC) Routine general medical examination at health care facility- Primary Routine general medical examination at a health care facility Hyperlipidemia LDL goal <100 Other and unspecified hyperlipidemia Screening for deficiency anemia Screening for other and unspecified deficiency anemia Essential hypertension Unspecified essential hypertension Encounter for screening mammogram for malignant neoplasm of breast Post-menopausal Asymptomatic postmenopausal status (age-related) (natural) Tardive dyskinesia Subacute dyskinesia due to drugs Weight loss Loss of weight TERESA on CPAP Recurrent major depressive disorder, in full remission (HCC) Anxiety Anxiety state, unspecified TERESA on CPAP- Primary Acute left-sided low back pain without sciatica- Primary Skin lesion Unspecified disorder of skin and subcutaneous tissue Colon cancer screening Special screening for malignant neoplasms, colon Left flank pain Abdominal pain, unspecified site TERESA on CPAP Anxiety Anxiety state, unspecified Recurrent major depressive disorder, in full remission (HCC) Essential hypertension Unspecified essential hypertension Hyperlipidemia LDL goal <100 Other and unspecified hyperlipidemia Urinary tract infection symptoms Acute pain of right shoulder- Primary Mixed stress and urge urinary incontinence Mixed incontinence urge and stress (male)(female) Acute pain of right shoulder- Primary Urinary tract infection symptoms Mixed stress and urge urinary incontinence Mixed incontinence urge and stress (male)(female) Chronic midline low back pain without sciatica Essential hypertension Unspecified essential hypertension Major depressive disorder with single episode, in partial remission (HCC) Routine general medical examination at health care facility- Primary Routine general medical examination at a health care facility Essential hypertension Unspecified essential hypertension Hyperlipidemia LDL goal <100 Other and unspecified hyperlipidemia Screening for deficiency anemia Screening for other and unspecified deficiency anemia Parkinson's disease without dyskinesia or fluctuating manifestations (HCC) Mild dementia without behavioral disturbance, psychotic disturbance, mood disturbance, or anxiety, unspecified dementia type (HCC) Cardiomyopathy, unspecified type (HCC) Chronic congestive heart failure, unspecified heart failure type (HCC) Abnormal electrocardiogram (ECG) (EKG) Closed fracture of right upper extremity with routine healing, subsequent encounter Tardive dyskinesia Subacute dyskinesia due to drugs Tardive dyskinesia- Primary Subacute dyskinesia due to drugs documented in this encounter [facility]* Diagnosis Well female exam with routine gynecological exam- Primary Routine gynecological examination Essential hypertension Unspecified essential hypertension Obesity (BMI 35.0-39.9 without comorbidity) Prediabetes Other abnormal glucose Recurrent major depressive disorder, in full remission (HCC) Anxiety Anxiety state, unspecified Hyperlipidemia LDL goal <100 Other and unspecified hyperlipidemia Screening for colon cancer Special screening for malignant neoplasms, colon Greater trochanteric bursitis of right hip- Primary Class 1 obesity due to excess calories without serious comorbidity with body mass index (BMI) of 31.0 to 31.9 in adult Recurrent major depressive disorder, in full remission (HCC)- Primary Class 1 obesity due to excess calories without serious comorbidity with body mass index (BMI) of 30.0 to 30.9 in adult Tardive dyskinesia- Primary Subacute dyskinesia due to drugs Drug-induced movement disorder Essential hypertension Unspecified essential hypertension Recurrent major depressive disorder, in full remission (HCC) Recurrent major depressive disorder, in full remission (HCC)- Primary Anxiety Anxiety state, unspecified Class 1 obesity due to excess calories without serious comorbidity with body mass index (BMI) of 30.0 to 30.9 in adult Tardive dyskinesia Subacute dyskinesia due to drugs 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 Tardive dyskinesia- Primary Subacute dyskinesia due to drugs Tardive dyskinesia- Primary Subacute dyskinesia due to drugs Anxiety Anxiety state, unspecified Tardive dyskinesia- Primary Subacute dyskinesia due to drugs Anxiety Anxiety state, unspecified Tardive dyskinesia- Primary Subacute dyskinesia due to drugs Weight loss Loss of weight Hot flashes Essential hypertension Unspecified essential hypertension Anxiety- Primary Anxiety state, unspecified Tardive dyskinesia Subacute dyskinesia due to drugs Essential hypertension Unspecified essential hypertension Post-menopausal Asymptomatic postmenopausal status (age-related) (natural) Skin lesion Unspecified disorder of skin and subcutaneous tissue Anxiety- Primary Anxiety state, unspecified Recurrent major depressive disorder, in full remission (HCC) Essential hypertension Unspecified essential hypertension Anxiety- Primary Anxiety state, unspecified Recurrent major depressive disorder, in full remission (HCC) Routine general medical examination at health care facility- Primary Routine general medical examination at a health care facility Hyperlipidemia LDL goal <100 Other and unspecified hyperlipidemia Screening for deficiency anemia Screening for other and unspecified deficiency anemia Essential hypertension Unspecified essential hypertension Encounter for screening mammogram for malignant neoplasm of breast Post-menopausal Asymptomatic postmenopausal status (age-related) (natural) Tardive dyskinesia Subacute dyskinesia due to drugs Weight loss Loss of weight TERESA on CPAP Recurrent major depressive disorder, in full remission (HCC) Anxiety Anxiety state, unspecified TERESA on CPAP- Primary Acute left-sided low back pain without sciatica- Primary Skin lesion Unspecified disorder of skin and subcutaneous tissue Colon cancer screening Special screening for malignant neoplasms, colon Left flank pain Abdominal pain, unspecified site TERESA on CPAP Anxiety Anxiety state, unspecified Recurrent major depressive disorder, in full remission (HCC) Essential hypertension Unspecified essential hypertension Hyperlipidemia LDL goal <100 Other and unspecified hyperlipidemia Urinary tract infection symptoms Acute pain of right shoulder- Primary Mixed stress and urge urinary incontinence Mixed incontinence urge and stress (male)(female) Acute pain of right shoulder- Primary Urinary tract infection symptoms Mixed stress and urge urinary incontinence Mixed incontinence urge and stress (male)(female) Chronic midline low back pain without sciatica Essential hypertension Unspecified essential hypertension Major depressive disorder with single episode, in partial remission (HCC) Routine general medical examination at health care facility- Primary Routine general medical examination at a health care facility Essential hypertension Unspecified essential hypertension Hyperlipidemia LDL goal <100 Other and unspecified hyperlipidemia Screening for deficiency anemia Screening for other and unspecified deficiency anemia Parkinson's disease without dyskinesia or fluctuating manifestations (HCC) Mild dementia without behavioral disturbance, psychotic disturbance, mood disturbance, or anxiety, unspecified dementia type (HCC) Cardiomyopathy, unspecified type (HCC) Chronic congestive heart failure, unspecified heart failure type (HCC) Abnormal electrocardiogram (ECG) (EKG) Closed fracture of right upper extremity with routine healing, subsequent encounter Tardive dyskinesia Subacute dyskinesia due to drugs Abnormal mammogram Abnormal mammogram, unspecified documented in this encounter [facility]* Diagnosis Well female exam with routine gynecological exam- Primary Routine gynecological examination Essential hypertension Unspecified essential hypertension Obesity (BMI 35.0-39.9 without comorbidity) Prediabetes Other abnormal glucose Recurrent major depressive disorder, in full remission (HCC) Anxiety Anxiety state, unspecified Hyperlipidemia LDL goal <100 Other and unspecified hyperlipidemia Screening for colon cancer Special screening for malignant neoplasms, colon Greater trochanteric bursitis of right hip- Primary Class 1 obesity due to excess calories without serious comorbidity with body mass index (BMI) of 31.0 to 31.9 in adult Recurrent major depressive disorder, in full remission (HCC)- Primary Class 1 obesity due to excess calories without serious comorbidity with body mass index (BMI) of 30.0 to 30.9 in adult Tardive dyskinesia- Primary Subacute dyskinesia due to drugs Drug-induced movement disorder Essential hypertension Unspecified essential hypertension Recurrent major depressive disorder, in full remission (HCC) Recurrent major depressive disorder, in full remission (HCC)- Primary Anxiety Anxiety state, unspecified Class 1 obesity due to excess calories without serious comorbidity with body mass index (BMI) of 30.0 to 30.9 in adult Tardive dyskinesia Subacute dyskinesia due to drugs 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 Tardive dyskinesia- Primary Subacute dyskinesia due to drugs Tardive dyskinesia- Primary Subacute dyskinesia due to drugs Anxiety Anxiety state, unspecified Tardive dyskinesia- Primary Subacute dyskinesia due to drugs Anxiety Anxiety state, unspecified Tardive dyskinesia- Primary Subacute dyskinesia due to drugs Weight loss Loss of weight Hot flashes Essential hypertension Unspecified essential hypertension Anxiety- Primary Anxiety state, unspecified Tardive dyskinesia Subacute dyskinesia due to drugs Essential hypertension Unspecified essential hypertension Post-menopausal Asymptomatic postmenopausal status (age-related) (natural) Skin lesion Unspecified disorder of skin and subcutaneous tissue Anxiety- Primary Anxiety state, unspecified Recurrent major depressive disorder, in full remission (HCC) Essential hypertension Unspecified essential hypertension Anxiety- Primary Anxiety state, unspecified Recurrent major depressive disorder, in full remission (HCC) Routine general medical examination at health care facility- Primary Routine general medical examination at a health care facility Hyperlipidemia LDL goal <100 Other and unspecified hyperlipidemia Screening for deficiency anemia Screening for other and unspecified deficiency anemia Essential hypertension Unspecified essential hypertension Encounter for screening mammogram for malignant neoplasm of breast Post-menopausal Asymptomatic postmenopausal status (age-related) (natural) Tardive dyskinesia Subacute dyskinesia due to drugs Weight loss Loss of weight TERESA on CPAP Recurrent major depressive disorder, in full remission (HCC) Anxiety Anxiety state, unspecified TERESA on CPAP- Primary Acute left-sided low back pain without sciatica- Primary Skin lesion Unspecified disorder of skin and subcutaneous tissue Colon cancer screening Special screening for malignant neoplasms, colon Left flank pain Abdominal pain, unspecified site TERESA on CPAP Anxiety Anxiety state, unspecified Recurrent major depressive disorder, in full remission (HCC) Essential hypertension Unspecified essential hypertension Hyperlipidemia LDL goal <100 Other and unspecified hyperlipidemia Urinary tract infection symptoms Acute pain of right shoulder- Primary Mixed stress and urge urinary incontinence Mixed incontinence urge and stress (male)(female) Acute pain of right shoulder- Primary Urinary tract infection symptoms Mixed stress and urge urinary incontinence Mixed incontinence urge and stress (male)(female) Chronic midline low back pain without sciatica Essential hypertension Unspecified essential hypertension Major depressive disorder with single episode, in partial remission (HCC) Routine general medical examination at health care facility- Primary Routine general medical examination at a health care facility Essential hypertension Unspecified essential hypertension Hyperlipidemia LDL goal <100 Other and unspecified hyperlipidemia Screening for deficiency anemia Screening for other and unspecified deficiency anemia Parkinson's disease without dyskinesia or fluctuating manifestations (HCC) Mild dementia without behavioral disturbance, psychotic disturbance, mood disturbance, or anxiety, unspecified dementia type (HCC) Cardiomyopathy, unspecified type (HCC) Chronic congestive heart failure, unspecified heart failure type (HCC) Abnormal electrocardiogram (ECG) (EKG) Closed fracture of right upper extremity with routine healing, subsequent encounter Tardive dyskinesia Subacute dyskinesia due to drugs TERESA on CPAP- Primary Anxiety Anxiety state, unspecified Congestive heart failure, unspecified HF chronicity, unspecified heart failure type (HCC) Tardive dyskinesia Subacute dyskinesia due to drugs Mild dementia without behavioral disturbance, psychotic disturbance, mood disturbance, or anxiety, unspecified dementia type (HCC) Essential hypertension Unspecified essential hypertension documented in this encounter [facility]* Diagnosis Well female exam with routine gynecological exam- Primary Routine gynecological examination Essential hypertension Unspecified essential hypertension Obesity (BMI 35.0-39.9 without comorbidity) Prediabetes Other abnormal glucose Recurrent major depressive disorder, in full remission (HCC) Anxiety Anxiety state, unspecified Hyperlipidemia LDL goal <100 Other and unspecified hyperlipidemia Screening for colon cancer Special screening for malignant neoplasms, colon Greater trochanteric bursitis of right hip- Primary Class 1 obesity due to excess calories without serious comorbidity with body mass index (BMI) of 31.0 to 31.9 in adult Recurrent major depressive disorder, in full remission (HCC)- Primary Class 1 obesity due to excess calories without serious comorbidity with body mass index (BMI) of 30.0 to 30.9 in adult Tardive dyskinesia- Primary Subacute dyskinesia due to drugs Drug-induced movement disorder Essential hypertension Unspecified essential hypertension Recurrent major depressive disorder, in full remission (HCC) Recurrent major depressive disorder, in full remission (HCC)- Primary Anxiety Anxiety state, unspecified Class 1 obesity due to excess calories without serious comorbidity with body mass index (BMI) of 30.0 to 30.9 in adult Tardive dyskinesia Subacute dyskinesia due to drugs 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 Tardive dyskinesia- Primary Subacute dyskinesia due to drugs Tardive dyskinesia- Primary Subacute dyskinesia due to drugs Anxiety Anxiety state, unspecified Tardive dyskinesia- Primary Subacute dyskinesia due to drugs Anxiety Anxiety state, unspecified Tardive dyskinesia- Primary Subacute dyskinesia due to drugs Weight loss Loss of weight Hot flashes Essential hypertension Unspecified essential hypertension Anxiety- Primary Anxiety state, unspecified Tardive dyskinesia Subacute dyskinesia due to drugs Essential hypertension Unspecified essential hypertension Post-menopausal Asymptomatic postmenopausal status (age-related) (natural) Skin lesion Unspecified disorder of skin and subcutaneous tissue Anxiety- Primary Anxiety state, unspecified Recurrent major depressive disorder, in full remission (HCC) Essential hypertension Unspecified essential hypertension Anxiety- Primary Anxiety state, unspecified Recurrent major depressive disorder, in full remission (HCC) Routine general medical examination at health care facility- Primary Routine general medical examination at a health care facility Hyperlipidemia LDL goal <100 Other and unspecified hyperlipidemia Screening for deficiency anemia Screening for other and unspecified deficiency anemia Essential hypertension Unspecified essential hypertension Encounter for screening mammogram for malignant neoplasm of breast Post-menopausal Asymptomatic postmenopausal status (age-related) (natural) Tardive dyskinesia Subacute dyskinesia due to drugs Weight loss Loss of weight TERESA on CPAP Recurrent major depressive disorder, in full remission (HCC) Anxiety Anxiety state, unspecified TERESA on CPAP- Primary Acute left-sided low back pain without sciatica- Primary Skin lesion Unspecified disorder of skin and subcutaneous tissue Colon cancer screening Special screening for malignant neoplasms, colon Left flank pain Abdominal pain, unspecified site TERESA on CPAP Anxiety Anxiety state, unspecified Recurrent major depressive disorder, in full remission (HCC) Essential hypertension Unspecified essential hypertension Hyperlipidemia LDL goal <100 Other and unspecified hyperlipidemia Urinary tract infection symptoms Acute pain of right shoulder- Primary Mixed stress and urge urinary incontinence Mixed incontinence urge and stress (male)(female) Acute pain of right shoulder- Primary Urinary tract infection symptoms Mixed stress and urge urinary incontinence Mixed incontinence urge and stress (male)(female) Chronic midline low back pain without sciatica Essential hypertension Unspecified essential hypertension Major depressive disorder with single episode, in partial remission (HCC) Routine general medical examination at health care facility- Primary Routine general medical examination at a health care facility Essential hypertension Unspecified essential hypertension Hyperlipidemia LDL goal <100 Other and unspecified hyperlipidemia Screening for deficiency anemia Screening for other and unspecified deficiency anemia Parkinson's disease without dyskinesia or fluctuating manifestations (HCC) Mild dementia without behavioral disturbance, psychotic disturbance, mood disturbance, or anxiety, unspecified dementia type (HCC) Cardiomyopathy, unspecified type (HCC) Chronic congestive heart failure, unspecified heart failure type (HCC) Abnormal electrocardiogram (ECG) (EKG) Closed fracture of right upper extremity with routine healing, subsequent encounter Tardive dyskinesia Subacute dyskinesia due to drugs TERESA on CPAP- Primary Anxiety Anxiety state, unspecified Congestive heart failure, unspecified HF chronicity, unspecified heart failure type (HCC) Tardive dyskinesia Subacute dyskinesia due to drugs Mild dementia without behavioral disturbance, psychotic disturbance, mood disturbance, or anxiety, unspecified dementia type (HCC) Essential hypertension Unspecified essential hypertension Dyskinesia 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 [facility] Diagnosis Well female exam with routine gynecological exam- Primary Routine gynecological examination Essential hypertension Unspecified essential hypertension Obesity (BMI 35.0-39.9 without comorbidity) Prediabetes Other abnormal glucose Recurrent major depressive disorder, in full remission (HCC) Anxiety Anxiety state, unspecified Hyperlipidemia LDL goal <100 Other and unspecified hyperlipidemia Screening for colon cancer Special screening for malignant neoplasms, colon Greater trochanteric bursitis of right hip- Primary Class 1 obesity due to excess calories without serious comorbidity with body mass index (BMI) of 31.0 to 31.9 in adult Recurrent major depressive disorder, in full remission (HCC)- Primary Class 1 obesity due to excess calories without serious comorbidity with body mass index (BMI) of 30.0 to 30.9 in adult Tardive dyskinesia- Primary Subacute dyskinesia due to drugs Drug-induced movement disorder Essential hypertension Unspecified essential hypertension Recurrent major depressive disorder, in full remission (HCC) Recurrent major depressive disorder, in full remission (HCC)- Primary Anxiety Anxiety state, unspecified Class 1 obesity due to excess calories without serious comorbidity with body mass index (BMI) of 30.0 to 30.9 in adult Tardive dyskinesia Subacute dyskinesia due to drugs 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 Tardive dyskinesia- Primary Subacute dyskinesia due to drugs Tardive dyskinesia- Primary Subacute dyskinesia due to drugs Anxiety Anxiety state, unspecified Tardive dyskinesia- Primary Subacute dyskinesia due to drugs Anxiety Anxiety state, unspecified Tardive dyskinesia- Primary Subacute dyskinesia due to drugs Weight loss Loss of weight Hot flashes Essential hypertension Unspecified essential hypertension Anxiety- Primary Anxiety state, unspecified Tardive dyskinesia Subacute dyskinesia due to drugs Essential hypertension Unspecified essential hypertension Post-menopausal Asymptomatic postmenopausal status (age-related) (natural) Skin lesion Unspecified disorder of skin and subcutaneous tissue Anxiety- Primary Anxiety state, unspecified Recurrent major depressive disorder, in full remission (HCC) Essential hypertension Unspecified essential hypertension Anxiety- Primary Anxiety state, unspecified Recurrent major depressive disorder, in full remission (HCC) Routine general medical examination at health care facility- Primary Routine general medical examination at a health care facility Hyperlipidemia LDL goal <100 Other and unspecified hyperlipidemia Screening for deficiency anemia Screening for other and unspecified deficiency anemia Essential hypertension Unspecified essential hypertension Encounter for screening mammogram for malignant neoplasm of breast Post-menopausal Asymptomatic postmenopausal status (age-related) (natural) Tardive dyskinesia Subacute dyskinesia due to drugs Weight loss Loss of weight TERESA on CPAP Recurrent major depressive disorder, in full remission (HCC) Anxiety Anxiety state, unspecified TERESA on CPAP- Primary Acute left-sided low back pain without sciatica- Primary Skin lesion Unspecified disorder of skin and subcutaneous tissue Colon cancer screening Special screening for malignant neoplasms, colon Left flank pain Abdominal pain, unspecified site TERESA on CPAP Anxiety Anxiety state, unspecified Recurrent major depressive disorder, in full remission (HCC) Essential hypertension Unspecified essential hypertension Hyperlipidemia LDL goal <100 Other and unspecified hyperlipidemia Urinary tract infection symptoms Acute pain of right shoulder- Primary Mixed stress and urge urinary incontinence Mixed incontinence urge and stress (male)(female) Acute pain of right shoulder- Primary Urinary tract infection symptoms Mixed stress and urge urinary incontinence Mixed incontinence urge and stress (male)(female) Chronic midline low back pain without sciatica Essential hypertension Unspecified essential hypertension Major depressive disorder with single episode, in partial remission (HCC) Routine general medical examination at health care facility- Primary Routine general medical examination at a health care facility Essential hypertension Unspecified essential hypertension Hyperlipidemia LDL goal <100 Other and unspecified hyperlipidemia Screening for deficiency anemia Screening for other and unspecified deficiency anemia Parkinson's disease without dyskinesia or fluctuating manifestations (HCC) Mild dementia without behavioral disturbance, psychotic disturbance, mood disturbance, or anxiety, unspecified dementia type (HCC) Cardiomyopathy, unspecified type (HCC) Chronic congestive heart failure, unspecified heart failure type (HCC) Abnormal electrocardiogram (ECG) (EKG) Closed fracture of right upper extremity with routine healing, subsequent encounter Tardive dyskinesia Subacute dyskinesia due to drugs TERESA on CPAP- Primary Anxiety Anxiety state, unspecified Congestive heart failure, unspecified HF chronicity, unspecified heart failure type (HCC) Tardive dyskinesia Subacute dyskinesia due to drugs Mild dementia without behavioral disturbance, psychotic disturbance, mood disturbance, or anxiety, unspecified dementia type (HCC) Essential hypertension Unspecified essential hypertension Cervical myelopathy (HCC) Cervical spondylosis with myelopathy [facility]* Diagnosis Well female exam with routine gynecological exam- Primary Routine gynecological examination Essential hypertension Unspecified essential hypertension Obesity (BMI 35.0-39.9 without comorbidity) Prediabetes Other abnormal glucose Recurrent major depressive disorder, in full remission (HCC) Anxiety Anxiety state, unspecified Hyperlipidemia LDL goal <100 Other and unspecified hyperlipidemia Screening for colon cancer Special screening for malignant neoplasms, colon Greater trochanteric bursitis of right hip- Primary Class 1 obesity due to excess calories without serious comorbidity with body mass index (BMI) of 31.0 to 31.9 in adult Recurrent major depressive disorder, in full remission (HCC)- Primary Class 1 obesity due to excess calories without serious comorbidity with body mass index (BMI) of 30.0 to 30.9 in adult Tardive dyskinesia- Primary Subacute dyskinesia due to drugs Drug-induced movement disorder Essential hypertension Unspecified essential hypertension Recurrent major depressive disorder, in full remission (HCC) Recurrent major depressive disorder, in full remission (HCC)- Primary Anxiety Anxiety state, unspecified Class 1 obesity due to excess calories without serious comorbidity with body mass index (BMI) of 30.0 to 30.9 in adult Tardive dyskinesia Subacute dyskinesia due to drugs 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 Tardive dyskinesia- Primary Subacute dyskinesia due to drugs Tardive dyskinesia- Primary Subacute dyskinesia due to drugs Anxiety Anxiety state, unspecified Tardive dyskinesia- Primary Subacute dyskinesia due to drugs Anxiety Anxiety state, unspecified Tardive dyskinesia- Primary Subacute dyskinesia due to drugs Weight loss Loss of weight Hot flashes Essential hypertension Unspecified essential hypertension Anxiety- Primary Anxiety state, unspecified Tardive dyskinesia Subacute dyskinesia due to drugs Essential hypertension Unspecified essential hypertension Post-menopausal Asymptomatic postmenopausal status (age-related) (natural) Skin lesion Unspecified disorder of skin and subcutaneous tissue Anxiety- Primary Anxiety state, unspecified Recurrent major depressive disorder, in full remission (HCC) Essential hypertension Unspecified essential hypertension Anxiety- Primary Anxiety state, unspecified Recurrent major depressive disorder, in full remission (HCC) Routine general medical examination at health care facility- Primary Routine general medical examination at a health care facility Hyperlipidemia LDL goal <100 Other and unspecified hyperlipidemia Screening for deficiency anemia Screening for other and unspecified deficiency anemia Essential hypertension Unspecified essential hypertension Encounter for screening mammogram for malignant neoplasm of breast Post-menopausal Asymptomatic postmenopausal status (age-related) (natural) Tardive dyskinesia Subacute dyskinesia due to drugs Weight loss Loss of weight TERESA on CPAP Recurrent major depressive disorder, in full remission (HCC) Anxiety Anxiety state, unspecified TERESA on CPAP- Primary Acute left-sided low back pain without sciatica- Primary Skin lesion Unspecified disorder of skin and subcutaneous tissue Colon cancer screening Special screening for malignant neoplasms, colon Left flank pain Abdominal pain, unspecified site TERESA on CPAP Anxiety Anxiety state, unspecified Recurrent major depressive disorder, in full remission (HCC) Essential hypertension Unspecified essential hypertension Hyperlipidemia LDL goal <100 Other and unspecified hyperlipidemia Urinary tract infection symptoms Acute pain of right shoulder- Primary Mixed stress and urge urinary incontinence Mixed incontinence urge and stress (male)(female) Acute pain of right shoulder- Primary Urinary tract infection symptoms Mixed stress and urge urinary incontinence Mixed incontinence urge and stress (male)(female) Chronic midline low back pain without sciatica Essential hypertension Unspecified essential hypertension Major depressive disorder with single episode, in partial remission (HCC) Routine general medical examination at health care facility- Primary Routine general medical examination at a health care facility Essential hypertension Unspecified essential hypertension Hyperlipidemia LDL goal <100 Other and unspecified hyperlipidemia Screening for deficiency anemia Screening for other and unspecified deficiency anemia Parkinson's disease without dyskinesia or fluctuating manifestations (HCC) Mild dementia without behavioral disturbance, psychotic disturbance, mood disturbance, or anxiety, unspecified dementia type (HCC) Cardiomyopathy, unspecified type (HCC) Chronic congestive heart failure, unspecified heart failure type (HCC) Abnormal electrocardiogram (ECG) (EKG) Closed fracture of right upper extremity with routine healing, subsequent encounter Tardive dyskinesia Subacute dyskinesia due to drugs TERESA on CPAP- Primary Anxiety Anxiety state, unspecified Congestive heart failure, unspecified HF chronicity, unspecified heart failure type (HCC) Tardive dyskinesia Subacute dyskinesia due to drugs Mild dementia without behavioral disturbance, psychotic disturbance, mood disturbance, or anxiety, unspecified dementia type (HCC) Essential hypertension Unspecified essential hypertension Hyperlipidemia LDL goal <100 Other and unspecified hyperlipidemia [facility]* Diagnosis Well female exam with routine gynecological exam- Primary Routine gynecological examination Essential hypertension Unspecified essential hypertension Obesity (BMI 35.0-39.9 without comorbidity) Prediabetes Other abnormal glucose Recurrent major depressive disorder, in full remission Anxiety Anxiety state, unspecified Hyperlipidemia LDL goal <100 Other and unspecified hyperlipidemia Screening for colon cancer Special screening for malignant neoplasms, colon Greater trochanteric bursitis of right hip- Primary Class 1 obesity due to excess calories without serious comorbidity with body mass index (BMI) of 31.0 to 31.9 in adult Recurrent major depressive disorder, in full remission- Primary Class 1 obesity due to excess calories without serious comorbidity with body mass index (BMI) of 30.0 to 30.9 in adult Tardive dyskinesia- Primary Subacute dyskinesia due to drugs Drug-induced movement disorder Essential hypertension Unspecified essential hypertension Recurrent major depressive disorder, in full remission Recurrent major depressive disorder, in full remission- Primary Anxiety Anxiety state, unspecified Class 1 obesity due to excess calories without serious comorbidity with body mass index (BMI) of 30.0 to 30.9 in adult Tardive dyskinesia Subacute dyskinesia due to drugs 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 Tardive dyskinesia- Primary Subacute dyskinesia due to drugs Tardive dyskinesia- Primary Subacute dyskinesia due to drugs Anxiety Anxiety state, unspecified Tardive dyskinesia- Primary Subacute dyskinesia due to drugs Anxiety Anxiety state, unspecified Tardive dyskinesia- Primary Subacute dyskinesia due to drugs Weight loss Loss of weight Hot flashes Essential hypertension Unspecified essential hypertension Anxiety- Primary Anxiety state, unspecified Tardive dyskinesia Subacute dyskinesia due to drugs Essential hypertension Unspecified essential hypertension Post-menopausal Asymptomatic postmenopausal status (age-related) (natural) Skin lesion Unspecified disorder of skin and subcutaneous tissue Anxiety- Primary Anxiety state, unspecified Recurrent major depressive disorder, in full remission Essential hypertension Unspecified essential hypertension Anxiety- Primary Anxiety state, unspecified Recurrent major depressive disorder, in full remission Routine general medical examination at health care facility- Primary Routine general medical examination at a health care facility Hyperlipidemia LDL goal <100 Other and unspecified hyperlipidemia Screening for deficiency anemia Screening for other and unspecified deficiency anemia Essential hypertension Unspecified essential hypertension Encounter for screening mammogram for malignant neoplasm of breast Post-menopausal Asymptomatic postmenopausal status (age-related) (natural) Tardive dyskinesia Subacute dyskinesia due to drugs Weight loss Loss of weight TERESA on CPAP Recurrent major depressive disorder, in full remission Anxiety Anxiety state, unspecified TERESA on CPAP- Primary Acute left-sided low back pain without sciatica- Primary Skin lesion Unspecified disorder of skin and subcutaneous tissue Colon cancer screening Special screening for malignant neoplasms, colon Left flank pain Abdominal pain, unspecified site TERESA on CPAP Anxiety Anxiety state, unspecified Recurrent major depressive disorder, in full remission Essential hypertension Unspecified essential hypertension Hyperlipidemia LDL goal <100 Other and unspecified hyperlipidemia Urinary tract infection symptoms Acute pain of right shoulder- Primary Mixed stress and urge urinary incontinence Mixed incontinence urge and stress (male)(female) Acute pain of right shoulder- Primary Urinary tract infection symptoms Mixed stress and urge urinary incontinence Mixed incontinence urge and stress (male)(female) Chronic midline low back pain without sciatica Essential hypertension Unspecified essential hypertension Major depressive disorder with single episode, in partial remission Routine general medical examination at health care facility- Primary Routine general medical examination at a health care facility Essential hypertension Unspecified essential hypertension Hyperlipidemia LDL goal <100 Other and unspecified hyperlipidemia Screening for deficiency anemia Screening for other and unspecified deficiency anemia Parkinson's disease without dyskinesia or fluctuating manifestations (HCC) Mild dementia without behavioral disturbance, psychotic disturbance, mood disturbance, or anxiety, unspecified dementia type (CMS/HCC) Cardiomyopathy, unspecified type (HCC) Chronic congestive heart failure, unspecified heart failure type (HCC) Abnormal electrocardiogram (ECG) (EKG) Closed fracture of right upper extremity with routine healing, subsequent encounter Tardive dyskinesia Subacute dyskinesia due to drugs TERESA on CPAP- Primary Anxiety Anxiety state, unspecified Congestive heart failure, unspecified HF chronicity, unspecified heart failure type (HCC) Tardive dyskinesia Subacute dyskinesia due to drugs Mild dementia without behavioral disturbance, psychotic disturbance, mood disturbance, or anxiety, unspecified dementia type (CMS/HCC) Essential hypertension Unspecified essential hypertension Subcutaneous mass of back [facility]* Diagnosis Well female exam with routine gynecological exam- Primary Routine gynecological examination Essential hypertension Unspecified essential hypertension Obesity (BMI 35.0-39.9 without comorbidity) Prediabetes Other abnormal glucose Recurrent major depressive disorder, in full remission Anxiety Anxiety state, unspecified Hyperlipidemia LDL goal <100 Other and unspecified hyperlipidemia Screening for colon cancer Special screening for malignant neoplasms, colon Greater trochanteric bursitis of right hip- Primary Class 1 obesity due to excess calories without serious comorbidity with body mass index (BMI) of 31.0 to 31.9 in adult Recurrent major depressive disorder, in full remission- Primary Class 1 obesity due to excess calories without serious comorbidity with body mass index (BMI) of 30.0 to 30.9 in adult Tardive dyskinesia- Primary Subacute dyskinesia due to drugs Drug-induced movement disorder Essential hypertension Unspecified essential hypertension Recurrent major depressive disorder, in full remission Recurrent major depressive disorder, in full remission- Primary Anxiety Anxiety state, unspecified Class 1 obesity due to excess calories without serious comorbidity with body mass index (BMI) of 30.0 to 30.9 in adult Tardive dyskinesia Subacute dyskinesia due to drugs 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 Tardive dyskinesia- Primary Subacute dyskinesia due to drugs Tardive dyskinesia- Primary Subacute dyskinesia due to drugs Anxiety Anxiety state, unspecified Tardive dyskinesia- Primary Subacute dyskinesia due to drugs Anxiety Anxiety state, unspecified Tardive dyskinesia- Primary Subacute dyskinesia due to drugs Weight loss Loss of weight Hot flashes Essential hypertension Unspecified essential hypertension Anxiety- Primary Anxiety state, unspecified Tardive dyskinesia Subacute dyskinesia due to drugs Essential hypertension Unspecified essential hypertension Post-menopausal Asymptomatic postmenopausal status (age-related) (natural) Skin lesion Unspecified disorder of skin and subcutaneous tissue Anxiety- Primary Anxiety state, unspecified Recurrent major depressive disorder, in full remission Essential hypertension Unspecified essential hypertension Anxiety- Primary Anxiety state, unspecified Recurrent major depressive disorder, in full remission Routine general medical examination at health care facility- Primary Routine general medical examination at a health care facility Hyperlipidemia LDL goal <100 Other and unspecified hyperlipidemia Screening for deficiency anemia Screening for other and unspecified deficiency anemia Essential hypertension Unspecified essential hypertension Encounter for screening mammogram for malignant neoplasm of breast Post-menopausal Asymptomatic postmenopausal status (age-related) (natural) Tardive dyskinesia Subacute dyskinesia due to drugs Weight loss Loss of weight TERESA on CPAP Recurrent major depressive disorder, in full remission Anxiety Anxiety state, unspecified TERESA on CPAP- Primary Acute left-sided low back pain without sciatica- Primary Skin lesion Unspecified disorder of skin and subcutaneous tissue Colon cancer screening Special screening for malignant neoplasms, colon Left flank pain Abdominal pain, unspecified site TERESA on CPAP Anxiety Anxiety state, unspecified Recurrent major depressive disorder, in full remission Essential hypertension Unspecified essential hypertension Hyperlipidemia LDL goal <100 Other and unspecified hyperlipidemia Urinary tract infection symptoms Acute pain of right shoulder- Primary Mixed stress and urge urinary incontinence Mixed incontinence urge and stress (male)(female) Acute pain of right shoulder- Primary Urinary tract infection symptoms Mixed stress and urge urinary incontinence Mixed incontinence urge and stress (male)(female) Chronic midline low back pain without sciatica Essential hypertension Unspecified essential hypertension Major depressive disorder with single episode, in partial remission Routine general medical examination at health care facility- Primary Routine general medical examination at a health care facility Essential hypertension Unspecified essential hypertension Hyperlipidemia LDL goal <100 Other and unspecified hyperlipidemia Screening for deficiency anemia Screening for other and unspecified deficiency anemia Parkinson's disease without dyskinesia or fluctuating manifestations (HCC) Mild dementia without behavioral disturbance, psychotic disturbance, mood disturbance, or anxiety, unspecified dementia type (CMS/HCC) Cardiomyopathy, unspecified type (HCC) Chronic congestive heart failure, unspecified heart failure type (HCC) Abnormal electrocardiogram (ECG) (EKG) Closed fracture of right upper extremity with routine healing, subsequent encounter Tardive dyskinesia Subacute dyskinesia due to drugs TERESA on CPAP- Primary Anxiety Anxiety state, unspecified Congestive heart failure, unspecified HF chronicity, unspecified heart failure type (HCC) Tardive dyskinesia Subacute dyskinesia due to drugs Mild dementia without behavioral disturbance, psychotic disturbance, mood disturbance, or anxiety, unspecified dementia type (CMS/HCC) Essential hypertension Unspecified essential hypertension Dyskinesia 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 documented in this encounter [facility] Discharge instructions* Attachments The following attachments cannot be sent through Care Everywhere. * Moderate Sedation in Adults Discharge Instructions ([place]) * Colonoscopy Discharge Instructions ([place]) documented in this [facility] Discharge instructions* Attachments The following attachments cannot be sent through Care Everywhere. * Radius Fracture Discharge Instructions ([place]) documented in this [facility]* Attachments The following attachments cannot be sent through Care Everywhere. * Bladder Retraining (Anguillan) * Rotator Cuff Tear Exercises (Anguillan) documented in this [facility]* Attachments The following attachments cannot be sent through Care Everywhere. * Bladder Retraining (Anguillan) * Rotator Cuff Tear Exercises (Anguillan) documented in this [facility]* Attachments The following attachments cannot be sent through Care Everywhere. * Bladder Retraining (Anguillan) documented in this [facility] for referral (narrative)* Consultation (Urgent) - Pending Review Specialty Diagnoses / Procedures Referred By Scooter mcclure Referred To Contact Neurology Diagnoses Tardive dyskinesia Procedures OR OFFICE/OUTPATIENT [facility] 60-74 MINUTES Adriane Hubbard APRN - CNP [address] [place] [address] [place] [address] [facility] Neuro [address] [place] [address] Referral ID Status Reason Start Date Expiration Date Visits Requested Visits Authorized [id number] Pending Review Specialty Services Required 06/19/2023 06/18/2024 1 1 [facility] for referral (narrative)* Consultation (Routine) - Pending Review Specialty Diagnoses / Procedures Referred By Contac t Referred To Contact Dermatology Diagnoses Skin lesion Procedures OR OFFICE/OUTPATIENT NEW HIGH MDM 60 MINUTES Adriane Hubbard APRN - SOIL FERTILITY EXTENSION SPECIALIST [address] [place] [address] [facility] Derm [address] [facility] [address] [place] [address] Referral ID Status Reason Start Date Expiration Date Visits Requested Visits Authorized [id number] Pending Review Specialty Services Required 07/08/2024 07/08/2025 1 1 * Consultation (Routine) - Pending Review Specialty Diagnoses / Procedures Referred By Contac t Referred To Contact General Surgery Diagnoses Colon cancer screening Procedures OR OFFICE/OUTPATIENT NEW HIGH MDM 60 MINUTES Adriane Hubbard APRN - SOIL FERTILITY EXTENSION SPECIALIST [address] [facility] [place] [address] Terry Bui MD [address] [place] [address] [address] [place] [address] Referral ID Status Reason Start Date Expiration Date Visits Requested Visits Authorized [id number] Pending Review Specialty Services Required 07/08/2024 07/08/2025 1 1 [facility] for visit Narrative* Auth/Cert (Routine) Specialty Diagnoses / Procedures Referred By Contac t Referred To Contact Diagnoses Encounter for screening for malignant neoplasm of colon Encounter for screening for malignant neoplasm of colon Procedures OR COLON CA SCRN NOT HI RSK IND COLONOSCOPY FOR LOW RISK SCREENING Mason Haynes MD 201 [facility] [address] [place] [address] Phone: tel: fax: Referral ID Status Reason Start Date Expiration Date Visits Re quested Visits Authorized [id number] 07/15/2024 1 1 [facility] for visit Narrative* Imaging (Routine) - Closed Specialty Diagnoses / Procedures Referred By Contac t Referred To Contact Radiology Diagnoses Neck pain Cervical myelopathy (HCC) DDD (degenerative disc disease), cervical Cervical spondylosis Procedures MR cervical spine wo contrast Anjel Larsen, PERSONNEL GENERALIST MANAGER - SOIL FERTILITY EXTENSION SPECIALIST 1 [facility] [address] [place] [address] Phone: tel: fax: [facility] MRI [address] [place] [address] Phone: tel: Referral ID Status Reason Start Date Expiration Date Visits Re quested Visits Authorized [id number] Closed 10/30/2024 10/30/2025 1 1 [facility] Narr[facility]* Imaging (Routine) - Closed Specialty Diagnoses / Procedures Referred By Contac t Referred To Contact Cardiology Diagnoses Cardiomyopathy, unspecified type (HCC) Abnormal electrocardiogram (ECG) (EKG) Procedures Transthoracic echocardiogram (TTE) complete with contrast, bubble, strain, and 3D PRN OR ECHO TTHRC R-T 2D W/WOM-MODE COMPL SPEC&COLR D OR TTE W OR WO FOL WCON,DOPPLER Adriane Hubbard, PERSONNEL GENERALIST MANAGER - SOIL FERTILITY EXTENSION SPECIALIST [address] [facility] [place] [address] Phone: tel: fax: Referral ID Status Reason Start Date Expiration Date Visits Re quested Visits Authorized [id number] Closed 12/08/2024 12/08/2025 1 1 [facility] Narrative* Imaging (Routine) - Closed Specialty Diagnoses / Procedures Referred By Contac t Referred To Contact Radiology Diagnoses Cervical myelopathy (HCC) Procedures MR cervical spine wo contrast Peng Mann MD 1 [facility] [address] [place] [address] Phone: tel: fax: Referral ID Status Reason Start Date Expiration Date Visits Re quested Visits Authorized [id number] Closed 12/08/2024 12/08/2025 1 1 [facility] for visit Narrative* Imaging (Routine) - Closed Specialty Diagnoses / Procedures Referred By Contac t Referred To Contact Radiology Diagnoses Subcutaneous mass of back Procedures MR thoracic spine w and wo contrast Peng Mann MD 1 [facility] [address] [place] [address] Phone: tel: fax: Referral ID Status Reason Start Date Expiration Date Visits Re quested Visits Authorized Closed 06/15/2025 06/15/2026 1 1 [facility] Summary Purpose Family History No Family History Records Found Relationship Condition Age at Onset Recorded Date/T yareli mother Cardiac disease Unknown father Cardiac disease Unknown brother Cardiac disease Unknown Advance Directives No Advanced Directives Records Found Advance Directive Response Recorded Date/ Time Advance Directives Yes April 02 9:25am Living Will No October 11, 2 019 3:14pm Power of Fish Skinning Machine Feeder No October 11, 2019 3:14pm Date Activated Date Inactivated Comments 08/11/2024 8:20 AM 08/11/2024 12:29 PM Date Activated Date Inactivated Comments 08/11/2024 8:20 AM 08/11/2024 12:29 PM Documents on File Type Date Recorded Patient Smasher Hand Expl anation Power of Fish Skinning Machine Feeder 10/16/2024 2:48 PM Advance Directives and Livin g Will 10/16/2024 2:48 PM Documents on File Type Date Recorded Patient Smasher Hand Expl anation Power of Fish Skinning Machine Feeder 10/16/2024 2:48 PM Advance Directives and Livin g Will 10/16/2024 2:48 PM Documents on File Type Date Recorded Patient Smasher Hand Expl anation Advance Directives and Livin g Will 12/05/2024 9:16 PM Power of Fish Skinning Machine Feeder 12/05/2024 9:16 PM Power of Fish Skinning Machine Feeder 10/16/2024 2:48 PM Advance Directives and Livin g Will 10/16/2024 2:48 PM Documents on File Type Date Recorded Patient Smasher Hand Expl anation Advance Directives and Livin g Will 12/05/2024 9:16 PM Power of Fish Skinning Machine Feeder 12/05/2024 9:16 PM Power of Fish Skinning Machine Feeder 10/16/2024 2:48 PM Advance Directives and Livin g Will 10/16/2024 2:48 PM Documents on File Type Date Recorded Patient Smasher Hand Expl anation Advance Directives and Livin g Will 12/28/2024 2:15 PM Advance Directives and Livin g Will 12/05/2024 9:16 PM Power of Fish Skinning Machine Feeder 12/05/2024 9:16 PM Power of Fish Skinning Machine Feeder 10/16/2024 2:48 PM Advance Directives and Livin g Will 10/16/2024 2:48 PM Documents on File Type Date Recorded Patient Smasher Hand Expl anation Advance Directives and Livin g Will 12/28/2024 2:15 PM Advance Directives and Livin g Will 12/05/2024 9:16 PM Power of Fish Skinning Machine Feeder 12/05/2024 9:16 PM Power of Fish Skinning Machine Feeder 10/16/2024 2:48 PM Advance Directives and Livin g Will 10/16/2024 2:48 PM Chief Complaint and Reason for Visit Chief Complaint 1 Y FU SCREENING Reason for Visit Atrial tachycardia Cardiomyopathy Essential hypertension Chief Complaint 1 Y FU ARRYHTHMIA Reason for Visit Atrial tachycardia Chief Complaint 1 Y FU ARRYHTHMIA RULE OUT KIDNEY INFECTION Reason for Visit Atrial tachycardia Reason for Referral Specialty Diagnoses / Procedures Referred By Scooter mcclure Referred To Contact Diagnoses Greater trochanteric bursitis of right [place] [address] Referral ID Status Reason Start Date Expiration Date V isits Requested Visits Authorized [id number] Pending Review 03/26/2023 09/22/2023 1 1 Specialty Diagnoses / Procedures Referred By Scooter mcclure Referred To Contact Orthopedic Surgery / Orthopaedic Surgery Diagnoses Greater trochanteric bursitis of right hip Procedures Large Joint Injection/Arthrocentesis [facility] [place] [address] Referral ID Status Reason Start Date Expiration Date Visits Re quested Visits Authorized [id number] Closed 03/26/2023 09/22/2023 1 1 Specialty Diagnoses / Procedures Referred By Scooter mcclure Referred To Contact Sleep Medicine Diagnoses TERESA on CPAP Procedures Sleep study with pap titration Juvencio Davila MD [address] [place] [address] Referral ID Status Reason Start Date Expiration Date V isits Requested Visits Authorized [id number] Pending Review 06/03/2023 11/30/2023 1 1 Specialty Diagnoses / Procedures Referred By Contpatrick t Referred To Contact Jie Miranda MD [address] [facility] [place] [address] Referral ID Status Reason Start Date Expiration Date Visits Re quested Visits Authorized [id number] Closed 1 1 Specialty Diagnoses / Procedures Referred By Contac t Referred To Contact Radiology Diagnoses Mild dementia without behavioral disturbance, psychotic disturbance, mood disturbance, or anxiety, unspecified dementia type (HCC) Procedures CT head wo IV contrast Jie Miranda MD [address] [facility] [place] [address] Referral ID Status Reason Start Date Expiration Date Visits Re quested Visits Authorized [id number] Closed 08/01/2023 01/28/2024 1 1 Specialty Diagnoses / Procedures Referred By Contac t Referred To Contact Physical Therapy Diagnoses Gait disorder Procedures OR OFFICE/OUTPATIENT NEW HIGH MDM 60 MINUTES Violet Castellanos APRN - CNP [address] [place] [address] Referral ID Status Reason Start Date Expiration Date Visits Requested Visits Authorized [id number] Pending Review Eval and Treat 04/02/2024 09/29/2024 99 99 Scheduling Instructions Evaluate and treat for gait imbalance Specialty Diagnoses / Procedures Referred By Contac t Referred To Contact Physical Therapy Diagnoses Parkinson's disease without dyskinesia or fluctuating manifestations (HCC) Procedures OR OFFICE/OUTPATIENT NEW HIGH MDM 60 MINUTES Jie Miranda MD [address] [facility] [place] [address] [address] Referral ID Status Reason Start Date Expiration Date Visits Requested Visits Authorized [id number] Pending Review Eval and Treat 07/02/2024 12/29/2024 99 99 Scheduling Instructions Parkinson's disease Additional Source Comments INFORMATION SOURCE (unrecogn ized section and content) DATE CREATED AUTHOR 11/10/2018 [facility] DATE CREATED AUTHOR AUTHOR'S ORGANIZ ATION 08/27/2025 [facility] [employer] [facility] DATE CREATED AUTHOR AUTHOR'S ORGANIZ ATION 08/28/2025 [facility] Goals (unrecognized section and content) Goals may be documented in a n alternate sectionGoals may be documented in an alternate sectionGoals may be documented in an alternate section Care Teams (unrecognized sec tion and content) Team Status: Active Member Role Status Dates Dr. Juvencio Davila MD Family Provider Active Dr. Juvencio Davila MD Primary Care Provider Active Team Status: Inactive Member Role Status Dates Dr. Juvencio Davlia MD Primary Care Provider, Referri ng Provider Active Dr. Ghulam Rosa MD Attending Provider Active Team Status: Active Member Role Status Dates Dr. Juvencio Davila MD Primary Care Provider Active Dr. Ghulam Rosa MD Attending Provider Active Team Status: Inactive Member Role Status Dates Dr. Juvencio Davila MD Primary Care Provider Active Dr. Ghulam Rosa MD Attending Provider Active Residential Direct Support Professional Relationship Specialty Start Date End Date Juvencio Davila MD [place], [place] [id number] PCP - General 07/29/15 Residential Direct Support Professional Relationship Specialty Start Date End Date Juvencio Davila MD [place], [place] [id number] PCP - General 07/29/15 Team Status: Inactive Member Role Status Dates Dr. Juvencio Davila MD Primary Care Provider Active Greta Cardoso COLLAR SEWER, COLLAR SEWER-C Attending Provider, Referring Provi camille Active Residential Direct Support Professional Relationship Specialty Start Date End Date Juvencio Davila [place] [id number] PCP - General 07/29/15 Residential Direct Support Professional Relationship Specialty Start Date End Date Juvencio Davila MD [address] [facility] [place] [address] PCP - General 07/29/15 Residential Direct Support Professional Relationship Specialty Start Date End Date Juvencio Davila MD 25 [facility] [place] [address] PCP - General 07/29/15 Residential Direct Support Professional Relationship Specialty Start Date End Date Juvencio Davila MD 25 [facility] [place] [address] PCP - General 07/29/15 Residential Direct Support Professional Relationship Specialty Start Date End Date Juvencio Davila MD [address] [facility] [place] [address] PCP - General 07/29/15 Residential Direct Support Professional Relationship Specialty Start Date End Date Juvencio Davila MD 25 [facility] [place] [address] PCP - General 07/29/15 Residential Direct Support Professional Relationship Specialty Start Date End Date Juvencio Davila MD [address] [facility] [place] [address] PCP - General 07/29/15 Residential Direct Support Professional Relationship Specialty Start Date End Date Juvencio Davila MD [address] [facility] [place] [address] PCP - General 07/29/15 Residential Direct Support Professional Relationship Specialty Start Date End Date Juvencio Davila MD [address] [facility] [place] [address] PCP - General 07/29/15 Residential Direct Support Professional Relationship Specialty Start Date End Date Juvencio Davila MD [address] [facility] [place] [address] PCP - General 07/29/15 Residential Direct Support Professional Relationship Specialty Start Date End Date Juvencio Davila MD [address] [facility] [place] [address] PCP - General 07/29/15 Residential Direct Support Professional Relationship Specialty Start Date End Date Juvencio Davila MD [address] [facility] [place] [address] PCP - General 07/29/15 Residential Direct Support Professional Relationship Specialty Start Date End Date Juvecnio Davila MD [address] [facility] [place] [address] PCP - General 07/29/15 Residential Direct Support Professional Relationship Specialty Start Date End Date Juvencio Davila MD 25 [facility] [place] [place] [address] PCP - General 07/29/15 Residential Direct Support Professional Relationship Specialty Start Date End Date Juvencio Davila MD [address] [facility] [place] [address] PCP - General 07/29/15 Residential Direct Support Professional Relationship Specialty Start Date End Date Juvencio Davila MD [address] [facility] [place] [address] PCP - General 07/29/15 Residential Direct Support Professional Relationship Specialty Start Date End Date Juvencio Davila MD [address] [facility] [place] [address] PCP - General 07/29/15 Residential Direct Support Professional Relationship Specialty Start Date End Date Juvencio Davila MD [address] [facility] [place] [address] PCP - General 07/29/15 Residential Direct Support Professional Relationship Specialty Start Date End Date Juvencio Davila MD [address] [facility] [place] [address] PCP - General 07/29/15 Residential Direct Support Professional Relationship Specialty Start Date End Date Juvencio Davila MD [address] [facility] [place] [address] PCP - General 07/29/15 Residential Direct Support Professional Relationship Specialty Start Date End Date Juvencio Davila MD [facility] [place] [address] PCP - General 07/29/15 Residential Direct Support Professional Relationship Specialty Start Date End Date Juvencio Davila MD [address] [facility] [place] [address] PCP - General 07/29/15 Residential Direct Support Professional Relationship Specialty Start Date End Date Juvencio Davila MD 25 [facility] [place] [address] PCP - General 07/29/15 Residential Direct Support Professional Relationship Specialty Start Date End Date Juvencio Davila MD 25 [facility] [place] [address] PCP - General 07/29/15 Residential Direct Support Professional Relationship Specialty Start Date End Date Juvencio Davila MD [address] [facility] [place] [address] PCP - General 07/29/15 Residential Direct Support Professional Relationship Specialty Start Date End Date Juvencio Davila MD [address] [facility] [place] [address] PCP - General 07/29/15 Residential Direct Support Professional Relationship Specialty Start Date End Date Juvencio Davila MD [address] [facility] [place] [address] PCP - General 07/29/15 Residential Direct Support Professional Relationship Specialty Start Date End Date Juvencio Davila MD [address] [facility] [place] [place] [address] PCP - General 07/29/15 Residential Direct Support Professional Relationship Specialty Start Date End Date Juvencio Davila MD [address] [facility] [place] [address] PCP - General 07/29/15 Residential Direct Support Professional Relationship Specialty Start Date End Date Juvencio Davila MD [address] [facility] [place] [address] PCP - General 07/29/15 Residential Direct Support Professional Relationship Specialty Start Date End Date Juvencio Davila MD [address] [facility] [place] [address] PCP - General 07/29/15 Residential Direct Support Professional Relationship Specialty Start Date End Date Juvencio Davila MD [address] [facility] [place] [address] PCP - General 07/29/15 Residential Direct Support Professional Relationship Specialty Start Date End Date Juvencio Davila MD [address] [place] [address] PCP - General 07/29/15 Residential Direct Support Professional Relationship Specialty Start Date End Date Juvencio Davila MD [address] [place] [address] PCP - General 07/29/15 Residential Direct Support Professional Relationship Specialty Start Date End Date Juvencio Davila MD [address] [place] [address] PCP - General 07/29/15 Residential Direct Support Professional Relationship Specialty Start Date End Date Juvencio Davila MD [address] [place] [address] PCP - General 07/29/15 Residential Direct Support Professional Relationship Specialty Start Date End Date Juvencio Davila MD [address] [place] [address] PCP - General 07/29/15 Residential Direct Support Professional Relationship Specialty Start Date End Date Juvencio Davila MD [address] [place] [address] PCP - General 07/29/15 Residential Direct Support Professional Relationship Specialty Start Date End Date Juvencio Davila MD [address] [facility] [place] [address] PCP - General 07/29/15 Residential Direct Support Professional Relationship Specialty Start Date End Date Juvencio Davila MD 25 [facility] [place] [address] PCP - General 07/29/15 Residential Direct Support Professional Relationship Specialty Start Date End Date Juvencio Davila MD [address] [facility] [place] [address] PCP - General 07/29/15 Residential Direct Support Professional Relationship Specialty Start Date End Date Juvencio Davila MD [facility] [place] [address] PCP - General 07/29/15 Residential Direct Support Professional Relationship Specialty Start Date End Date Juvencio Davila MD [facility] [place] [place] [address] PCP - General 07/29/15 Residential Direct Support Professional Relationship Specialty Start Date End Date Juvencio Davila MD [address] [facility] [place] [place] [address] PCP - General 07/29/15 Residential Direct Support Professional Relationship Specialty Start Date End Date Juvencio Davila MD [address] [facility] [place] [address] PCP - General 07/29/15 Residential Direct Support Professional Relationship Specialty Start Date End Date Juvencio Davila MD [address] [facility] [place] [address] PCP - General 07/29/15 Residential Direct Support Professional Relationship Specialty Start Date End Date Juvencio Davila MD [address] [facility] [place] [address] PCP - General 07/29/15 Residential Direct Support Professional Relationship Specialty Start Date End Date Juvencio Davila MD [address] [facility] [place] [address] PCP - General 07/29/15 Residential Direct Support Professional Relationship Specialty Start Date End Date Juvencio Davila MD [address] [facility] [place] [address] PCP - General 07/29/15 Residential Direct Support Professional Relationship Specialty Start Date End Date Juvencio Davila MD [address] [facility] [place] [address] PCP - General 07/29/15 Residential Direct Support Professional Relationship Specialty Start Date End Date Juvencio Davila MD [address] [facility] [place] [address] PCP - General 07/29/15 Residential Direct Support Professional Relationship Specialty Start Date End Date Juvencio Davila MD [address] [facility] [place] [address] PCP - General 07/29/15 Residential Direct Support Professional Relationship Specialty Start Date End Date Juvencio Davila MD [address] [facility] [place] [address] PCP - General 07/29/15 Residential Direct Support Professional Relationship Specialty Start Date End Date Juvencio Davila MD [address] [facility] [place] [address] PCP - General 07/29/15 Residential Direct Support Professional Relationship Specialty Start Date End Date Juvencio Davila MD [address] [facility] [place] [address] PCP - General 07/29/15 Residential Direct Support Professional Relationship Specialty Start Date End Date Juvencio Davila MD [address] [place] [address] PCP - General 07/29/15 Residential Direct Support Professional Relationship Specialty Start Date End Date Juvencio Davila MD [address] [place] [address] PCP - General 07/29/15 Residential Direct Support Professional Relationship Specialty Start Date End Date Juvencio Davila MD 25 [facility] [place] [address] PCP - General 07/29/15 Residential Direct Support Professional Relationship Specialty Start Date End Date Juvencio Davila MD [address] [facility] [place] [address] PCP - General 07/29/15 Residential Direct Support Professional Relationship Specialty Start Date End Date Juvencio Davila MD [address] [facility] [place] [address] PCP - General 07/29/15 Residential Direct Support Professional Relationship Specialty Start Date End Date Juvencio Davila MD [address] [place] [address] PCP - General 07/29/15 Residential Direct Support Professional Relationship Specialty Start Date End Date Juvencio Davila MD [address] [place] [address] PCP - General 07/29/15 Residential Direct Support Professional Relationship Specialty Start Date End Date Juvencio Davila MD [address] [facility] [place] [address] PCP - General 07/29/15 Residential Direct Support Professional Relationship Specialty Start Date End Date Juvencio Davila MD [address] [facility] [place] [address] PCP - General 07/29/15 Residential Direct Support Professional Relationship Specialty Start Date End Date Juvencio Davila MD [address] [facility] [place] [address] PCP - General 07/29/15 Residential Direct Support Professional Relationship Specialty Start Date End Date Juvencio Davila MD [address] [facility] [place] [id number] PCP - General 07/29/15 Adriane Hubbard APRN - DIONY [address] [facility] [place] [address] Nurse Practitioner Nurse Practitioner Family 06/24/25 Residential Direct Support Professional Relationship Specialty Start Date End Date Juvencio Davila MD [address] [facility] [place] [address] PCP - General 07/29/15 Adriane Hubbard APRN - CNP [address] [place] [id number] Nurse Practitioner Nurse Practitioner Family 06/24/25 Residential Direct Support Professional Relationship Specialty Start Date End Date Juvencio Davila MD [address] [place] [id number] PCP - General 07/29/15 Adriane Hubbard APRN - CNP [address] [place] [phone] Nurse Practitioner Nurse Practitioner Family 06/24/25 Residential Direct Support Professional Relationship Specialty Start Date End Date Juvencio Davila MD [address] [place] [id number] PCP - General 07/29/15 Adriane Hubbard APRN - CNP [address] [place] [id number] Nurse Practitioner Nurse Practitioner Family 06/24/25 Reason for Visit (unrecogniz ed section and content) Reason Comments Med Refill Reason Comments Hip Pain Right hip- asking fo r inj Specialty Diagnoses / Procedures Referred By Scooter t Referred To Contact Diagnoses Greater trochanteric bursitis of right hip Juvencio Davila MD [address] [place] [address] Referral ID Status Reason Start Date Expiration Date V isits Requested Visits Authorized [id number] Pending Review 03/26/2023 09/22/2023 1 1 Reason Comments Obesity Depression Reason Comments Medication Reaction Symptoms started 1-2 days after starting medication-last day of taking Vraylar was 05/07/23 involuntary muscle movements In mouth Shaking Speech Problem Dizziness Agitation Reason Comments tardive dyskinesia Depression Anxiety Follow-up 2 week follow up Weight Management 4 week - Adipex Laceration Lower leg on while on vacation- bleeding pretty bad applied pressure with gauze and coban soaked gauze 7-8hrs and reapplied pressure has not removed dressing Saturday yet advised if continued severe bleeding needs to go to ER or Urgent Care for possible cautery pt understands Reason Comments Depression Anxiety Follow-up 2 Reason Onset Date Comments Orders 05/31/2023 Sleep study orde r Reason Onset Date Comments Oral Swelling 06/19/2023 Reason Onset Date Comments New Patient 06/26/2023 06/27/23, 10:00a : Tardive Dyskinesia Reason Comments Follow-up Drug induced movemen t disorder Reason Comments New Patient Tardive Dyskinesia Specialty Diagnoses / Procedures Referred By Scooter cmclure Referred To Contact Neurology Diagnoses Tardive dyskinesia Procedures OR OFFICE/OUTPATIENT NEW HIGH MDM 60-74 MINUTES Adriane Hubbard, PERSONNEL GENERALIST MANAGER - SOIL FERTILITY EXTENSION SPECIALIST [address] [place] [address] [place] [address] [facility] [address] [place] [address] Referral ID Status Reason Start Date Expiration Date Visits Requested Visits Authorized [id number] Pending Review Specialty Services Required 06/19/2023 06/18/2024 1 1 Reason Onset Date Comments Med Management 07/01/2023 Patient must debbie l with [facility] Reason Onset Date Comments Error (VOID this visit) 07/03/2023 Reason Onset Date Comments Medication Problem 07/03/2023 Reason Comments Other Discuss going back t o work Reason Onset Date Comments Med Management 08/05/2023 Ingrezza 60mg in crease - [facility]. Reason Comments Follow-up Reason Comments Follow-up Tardive DyskinesiaSh ort term memory concerns Specialty Diagnoses / Procedures Referred By Scooter t Referred To Contact Radiology Diagnoses Mild dementia without behavioral disturbance, psychotic disturbance, mood disturbance, or anxiety, unspecified dementia type (HCC) Procedures CT head wo IV contrast Jie Miranda MD [address] [facility] [place] [address] Referral ID Status Reason Start Date Expiration Date Visits Re quested Visits Authorized [id number] Closed 08/01/2023 01/28/2024 1 1 Reason Onset Date Comments Med Refill 08/27/2023 Reason Comments Follow-up Dementia, Tardive Dy skinesia Reason Comments Follow-up Skin Lesion Noticed about a huber h ago Reason Comments Procedure Shave biopsy left sh in Reason Comments Follow-up Tardive Dyskinesia Reason Onset Date Comments Med Refill 12/09/2023 Reason Comments Medicare Annual Wellness Visit Initial W elcome to Medicare, eye exam performed Blood Work Health Maintenance Mammogram-agreesDEXA -agreesSkin CA check-not done Reason Comments CPAP compliance Sleep Apnea Reason Onset Date Comments Flank Pain 03/23/2024 Reason Comments Flank Pain Been going on for ab out 2 weeks. Did take Bactrim and Pyridium finished today Reason Comments Follow-up Tardive Dyskinesia, Dementia Concerns with unsteady gait, and tremor is R hand Reason Comments Follow-up Orofacial dyskinesia Reason Comments Medication Check Cpap Reason Onset Date Comments Appointment Request 07/14/2024 The colonosc opy questionnaire was completed. Reason Comments Follow-up Fall- states mat in the shower gave away and she fell, all on SaturdayUrinary Incontinence- States that she can't make it to the bathroom when she does have to go.(Gave water for UA as she does not have to go at this time) Reason Comments Follow-up Parkinson's Disease Reason Comments Gynecologic Exam WFE Blood Work Health Maintenance Dexa scan- will chec k with insurance Pcv 20 vaccine- will check with insurance Covid 3 vaccine- not done Reason Comments Follow-up Is also wanting a UA , sx's being, lower back side pain, More frequent urination, no pain when urinating. Reason Comments Back Pain New Patient Specialty Diagnoses / Procedures Referred By Scooter mcclure Referred To Contact Orthopedic Surgery: Spine Surgery / Orthopedic Surgery Diagnoses Chronic midline low back pain without sciatica Degeneration of intervertebral disc of lumbar region with discogenic back pain Procedures OR OFFICE/OUTPATIENT NEW HIGH MDM 60 MINUTES Adriane Hubbard, PERSONNEL GENERALIST MANAGER - SOIL FERTILITY EXTENSION SPECIALIST [address] [facility] [place] [address] Phone: tel: fax: Anjel Larsen, PERSONNEL GENERALIST MANAGER - SOIL FERTILITY EXTENSION SPECIALIST 1 [facility] [address] [place] [address] Phone: tel: fax: Referral ID Status Reason Start Date Expiration Date V isits Requested Visits Authorized [id number] Closed Specialty Services Required 10/22/2024 10/22/2025 1 1 Reason Comments Fall Pt fell today while trying to step over a pile of wood in the garage, pt caught foot and landed on hands, did not hit head Elbow Pain Right elbow pain s/p fall Wrist Pain Right wrist pain s/p fall Reason Comments Follow-up Dyskinesia Reason Comments Medicare Annual Wellness Visit Jose t Health Maintenance Bone Density Scan-SD EDS TO SCHEDULE Derm Melanoma Skin Check-needs completed Hepatitis C Screening-declined Pneumococcal Vaccine-declined Hepatitis B Vaccines-declined RSV Immunization-declined Mammogram-nata'd December [id number] Diabetes Screening-Today Echocardiogram-DISCUSS WITH PROVIDER LAST COMPLETED Influenza Vaccine-declined COVID-19 Vaccine-declined Reason Comments Follow-up Back Pain Reason Comments New Patient Right elbow injury Specialty Diagnoses / Procedures Referred By Scooter mcclure Referred To Contact Hand Surgery / Orthopedic Surgery Diagnoses Closed nondisplaced fracture of head of right radius, initial encounter Procedures OR OFFICE/OUTPATIENT NEW HIGH MDM 60 MINUTES Bud Malik DO [address] [place] [address] Phone: tel: fax: Mook Rivera MD 1 [facility] [address] [place] [id number] Phone: tel: fax: Referral ID Status Reason Start Date Expiration Date V isits Requested Visits Authorized [id number] Closed Specialty Services Required 12/05/2024 12/05/2025 1 1 Reason Onset Date Comments Results 12/22/2024 Reason Onset Date Comments Results 12/22/2024 Medication Problem 12/22/2024 Calcium Carb- Cholecalciferol dose change request Reason Onset Date Comments Results 12/29/2024 Reason Comments Follow-up 1 month follow up Reason Comments Follow-up Neuroleptic - induce d tardive dyskinesia Reason Onset Date Comments Med Management 03/05/2025 amantadine (Symm etrel) 100 MG tablet Reason Comments Medication Check Health Maintenance Derm Melanoma Skin C heck-NEEDS COMPLETED Depression Monitoring-completed Reason Onset Date Comments Appointment 05/06/2025 Scheduled Active and Recently Administ ered Medications (unrecognized section and content) Medication Order 08/09/2024 08/10/2024 08/11/2024 sodium chloride 0.9% (NS) flush 10 mL 10 mL, IntraVENous, Every 12 hours scheduled (2 times per day), First dose on Sat08/11/24 at 0900, Preprocedure 0900 (Canceled Entry - Provider: Automatic Discharge Provider - Comment: Automatically canceled at discontinue of medication order) PRN Medication Order 08/09/2024 08/10/2024 08/11/2024 ondansetron (Zofran) injection 4 mg 4 mg, IntraVENous, Once PRN, nausea, vomiting, Starting on Sat08/11/24 at 0820, For 1 dose, Preprocedure simethicone (Mylicon) drops (COMPLETED) Intraluminal, As needed, Starting on Sat08/11/24 at 0920, Intraprocedure 0920 (Given - Provid er: Mason Haynes MD) sodium chloride 0.9 % infusion 5-250 mL/hr, IntraVENous, PRN, if patient receiving piggyback infusions and maintenance fluids are not ordered OR KVO fluids to protect IV site / prevent frequent line interruptions/ long duration, Starting on Sat08/11/24 at 0820, Preprocedure, For piggyback infusion, administer at same rate as piggyback for a total of 25 mL. Enter 25 mL into dose field and piggyback rate into rate field of order. If piggyback is infusing at a rate less than 100 mL/hr, enter 25 mL into dose field and 100 mL/hr into rate field of order. For KVO fluids, enter rate of 20 mL/hr or less into rate field of order. sodium chloride 0.9% (NS) flush 10 mL 10 mL, IntraVENous, PRN, line care, Starting on Sat08/11/24 at 0820, Preprocedure, After every IV line use FOR RECORDS PERTAINING TO PATIENTS WHO ARE OR HAVE BEEN ENROLLED IN A CHEMICAL DEPENDENCY/SUBSTANCEABUSE PROGRAM, SOME INFORMATION MAY BE OMITTED. This clinical summary was aggregated from multiple sources. Caution should be exercised in using it in the provision of clinical care. This summary normalizes information from multiple sources, and as a consequence, information in this document may materially change the coding, format and clinical context of patient data. In addition, data may be omitted in some cases. CLINICAL DECISIONS SHOULD BE BASED ON THE PRIMARY CLINICAL RECORDS. [facility]. provides no warranty or guarantee of the accuracy or completeness of information in this document.
[2025-09-11 19:33] LABS: Squamous Epithelial Cells - UA 0-5 SEEN /hpf (5-10)
--- NOTE | 2025-09-11 21:34 | EDS_ITS ---
HPI History of Present Illness Chief Complaint: Neuro S/Sx Narrative Narrative: Patient is a 70-year-old female presenting to the emergency department for slurred speech, headache and what she describes as dizziness. Patient has a past medical history of tardive dyskinesia, atrial tachycardia, CHF, cardiomyopathy, major depressive disorder. Patient states that her symptoms started on . LKW was when she woke up. She denies any recent falls. Of note the patient has been on Benadryl nightly for 8 to 10 years and was recently told to stop it for allergy testing. She states that her last dose was Saturday evening. She states that the headache started in the front of her head and started gradually. She has tried taking meds at home to help with the symptoms. She reports that she has dizziness however upon further questioning it is determined that she has more lightheadedness with any positional changes. She denies any weakness or numbness in her arms or legs. She also reporting intermittent extremity jerking movements. States this started around the same time. [facility] Medical History MDD (major depressive disorder) Major depressive disorder in full remission History of uterine ablation Atrial tachycardia TERESA (obstructive sleep apnea) Depression Essential hypertension Cardiomyopathy Congestive heart failure Infection due to ESBL-producing Escherichia coli Lower back pain Home Medications ?Medication ?Instructions ?Recorded ?Last Taken ?Type folic acid 1 mg tablet 1 mg PO DAILY SUPPLEMENT 04/0806/11/23 History simvastatin 40 mg tablet 40 mg PO QHS CHOLESTEROL 04/0806/10/23 History aspirin 81 mg tablet,delayed 81 mg PO DAILY 01/03/23 0 06/11/23 History release metoprolol succinate 25 mg See Rx Instructions .Route 03/31/23 06/11/23 Rx tablet,extended release 24 hr .COMPLEX #90 tabs diphenhydramine HCl 25 mg tablet 25 mg PO QHS 12/04/23 Unknown History (Benadryl Allergy) valbenazine 80 mg capsule 40 mg PO DAILY 12/04/23 Unkn own History (Ingrezza) lisinopril 2.5 mg tablet 2.5 mg PO DAILY #90 TABLETS 09/04/24 Unknown Rx diclofenac sodium 75 mg 75 mg PO Q12H 12/08/24 Unkno wn History tablet,delayed release amantadine HCl 100 mg tablet 100 mg PO BID 03/09/25 Un known History buspirone 15 mg tablet 15 mg PO BID 90 days #180 ta bs 08/23/25 Unknown Rx clonazepam 0.5 mg tablet 0.25 mg (1/2 x 0.5 mg) PO BI D 30 08/23/25 Unknown Rx days #30 tabs fluoxetine 20 mg capsule 20 mg PO QDAY #90 caps 08/23 Unknown Rx fluoxetine 40 mg capsule 40 mg PO DAILY 90 days #90 c aps 08/23/25 Unknown Rx Allergy/AdvReac Type Severity Reaction Status Date / Time cariprazine (From [facility]) Allergy Mild DIZZINESS Verified 09/11/25 17:46 Family History Mother Heart disease Father Heart disease Brother Heart disease Surgical History History of tonsillectomy History of carpal tunnel surgery Social History Smoking Status: Never smoker alcohol intake: never substance use type: does not use caffeine: Yes (occasionally) ROS ROS ED ROS Narrative see HPI EXAM Physical Exam Narrative Exam Narrative: Vital signs: Reviewed General: Alert and oriented x 3. No acute distress HEENT: Head is normocephalic and atraumatic, sinuses nontender, pupils equal round and reactive. No nystagmus. Nares are patent. Oropharynx and throat exams normal. Neck: Supple without lymphadenopathy nontender Cardiovascular: Regular rate and rhythm, no murmurs. No rubs or gallops. Normal S1 and S2 Respiratory: Clear to auscultation bilaterally. No wheezes, rales, rhonchi Abdominal: Soft and nontender. Normal bowel sounds. No guarding or rebound. Nonsurgical abdomen Extremities: No tenderness. No bruising. Normal range of motion. Normal se nsation. Skin: No rash or redness. Neuro: please see [facility]. No clonus. No muscle rigidity. The rest of the physical exam is unremarkable Const Vital Signs: 09/11/25 17:41 09/11/25 19:40 09/11/25 20:49 Temperature 97.5 F L Temperature Source Temporal Pulse Rate 79 62 Pulse Rate [Lying] 64 Pulse Rate [Sitting (for 1 minute prior to obtaining)] 72 Pulse Rate [Standing (for 1 minute prior to obtaining)] 73 Respiratory Rate 16 18 Blood Pressure 129/90 H 144/74 H Blood Pressure [Lying] 139/67 H Blood Pressure [Sitting (for 1 minute prior to obtaining)] 146/89 H Blood Pressure [Standing (for 1 minute prior to obtaining)] 151/74 H Blood Pressure Mean 103 97 Blood Pressure Mean [Lying] 91 Blood Pressure Mean [Sitting (for 1 minute prior to obtaining)] 108 Blood Pressure Mean [Standing (for 1 minute prior to obtaining)] 99 Pulse Ox 99 97 Oxygen Delivery Method Room Air 09/11/25 21:00 09/11/25 21:53 Temperature 98.6 F Temperature Source Pulse Rate 56 L 62 Pulse Rate [Lying] Pulse Rate [Sitting (for 1 minute prior to obtaining)] Pulse Rate [Standing (for 1 minute prior to obtaining)] Respiratory Rate 16 18 Blood Pressure 142/63 H 142/63 H Blood Pressure [Lying] Blood Pressure [Sitting (for 1 minute prior to obtaining)] Blood Pressure [Standing (for 1 minute prior to obtaining)] Blood Pressure Mean 89 89 Blood Pressure Mean [Lying] Blood Pressure Mean [Sitting (for 1 minute prior to obtaining)] Blood Pressure Mean [Standing (for 1 minute prior to obtaining)] Pulse Ox 97 100 Oxygen Delivery Method Room Air NIHSS NIHSS Initial: 1a Level of Consciousness: 0 1b LOC Questions (Score 2 if aphasic/stupor): 0 1c LOC Commands (Only score 1st attempt): 0 2 Best Gaze (If aphasic, use reflexive mvmts.): 0 3 Visual: 0 4 Facial Palsy: 0 5 Motor Arm Right (UN = amputation/fusion): 0 5 Motor Arm Left: 0 6 Motor Leg Right: 0 6 Motor Leg Left: 0 7 Limb ataxia (Only + if out of proportion): 0 8 Sensory (Aphasia/stupor=0 or 1, coma=2): 0 9 Best Language: 1 10 Dysarthria (mute, coma=2, intubated=UN): 1 11 Extinction and Inattention (only scored if +): 0 Total Score: 2 MDM MDM MDM Narrative Medical decision making narrative: Patient is a 70-year-old female presenting to emergency department for multiple complaints including headache, what she describes as dizziness, shaking and slurred speech difficulty getting her words out. Last known well was on . At this point we are 48 hours or greater from her last known well. Upon my evaluation she was given an NIH of 2 for slurred speech and some mild a phasia. Is also possible that this is worsening tardive dyskinesia from her abrupt stopping of the Benadryl however difficult to discern. Patient was given Benadryl here in the emergency department as well as fluids. CT brain and CTA of the head and neck were ordered. Labs were also ordered. Patient states that she had symptoms like this last time she had a urinary tract infection. CBC with leukocytosis and a normal hemoglobin. BMP with no significant abnormalities. Urinalysis with no evidence of urinary tract infection. CT of the brain negative for any acute intracranial pathology. CTA of the head and neck is negative for LVO or significant stenosis. Chest x-ray reviewed and shows no acute abnormalities. Radiology read in agreement. Patient was reevaluated after the Benadryl and fluids and she has had improvement in the the muscle jerking. She was given Tylenol and Toradol for her headache after negative CT imaging. She has no fever and is not altered I do not think this is meningitis or encephalitis. The headache was not sudden onset in nature and not think it subarachnoid. She describes it as tension-like and a band across the front of her head. I did recommend admission for MRI given it is difficult to determine if this is truly from worsening tardive dyskinesia from being off of Benadryl versus stroke in nature. Patient is agreeable with being admitted. Admitted to the hospitalist, Dr. Espinosa for further management. Clinical impression Dysarthria Headache Word finding difficulty History & Record Review Discussion w/independent historian: Patient and Family Additional record(s) reviewed:: Prior ED visit Lab Data Attestation: I reviewed the patient's lab results. Labs: Laboratory Results - last 24 hr 09/11/25 09/11/25 09/11/25 18:08 18: 19:10 WBC 8.2 RBC 4.52 Hgb 14.1 Hct 41.3 MCV 91.4 MCH 31.2 MCHC 34.1 RDW Std Deviation 41.8 RDW Coeff of Darlyn 12.5 Plt Count 277 MPV 11.2 Immature Gran % (Auto) 0.400 Neut % (Auto) 54.9 Lymph % (Auto) 36.5 [place] % (Auto) 7.2 Eos % (Auto) 0.5 Baso % (Auto) 0.5 Absolute Neuts (auto) 4.5 Absolute Lymphs (auto) 2.99 Nucleated RBC % 0 Sodium 138 Potassium 3.9 Chloride 103 Carbon Dioxide 23.3 Anion Gap 12 BUN 15 Creatinine 0.75 Estim Creat Clear Calc 67.64 Est GFR (MDRD) Non-Af 87 BUN/Creatinine Ratio 20.2 H Glucose 96 Hemoglobin A1c 5.3 Calcium 9.7 C-React Prot Ext Range < 3.00 Urine Color Yellow Urine Clarity Clear Urine pH 7.0 Ur Specific [place] 1.010 Urine Protein 15 H Urine Glucose (UA) Normal Urine Ketones Negative Urine Occult Blood 10 H Urine Nitrite Negative Urine Bilirubin Negative Urine Urobilinogen Normal Ur Leukocyte Esterase 25 H Urine RBC 0 SEEN Urine WBC 0-5 SEEN Ur Squamous Epith Cells 0-5 SEEN Urine Bacteria 1+ Urine Mucus 0 SEEN Urine Opiates Screen NEGATIVE U Buprenorphine Qual NEGATIVE Ur Oxycodone Screen NEGATIVE Urine Methadone Screen NEGATIVE Urine Fentanyl Screen NEGATIVE Ur Barbiturates Screen NEGATIVE Ur Phencyclidine Scrn NEGATIVE Ur Amphetamines Screen NEGATIVE U Benzodiazepines Scrn NEGATIVE Urine Cocaine Screen NEGATIVE U Cannabinoids Screen NEGATIVE POC Glucose 91 Radiography Diagnostic Testing: Clinical Impression(s) from Imaging Studies Brain CT 09/11/25 18:24 IMPRESSION: Negative for acute intracranial pathology. Reading Location: [facility] Head/Neck CTA 09/11/25 18:24 IMPRESSION: Negative for acute intracranial pathology. Age-appropriate appearance of the brain Negative CTA of the head Negative for large vessel occlusion. Negative for hemodynamic significant stenosis in either carotid system. Negative CTA of the neck. Reading Location: [facility] Chest X-Ray 09/11/25 18:50 IMPRESSION: Negative for acute cardiopulmonary disease. Reading Location: [facility] Discharge Plan Disposition Disposition: Acute Care Hospital [facility] Discharge Date/Time: 09/11/25 22:58
--- NOTE | 2025-09-11 21:53 | HP.PCM.HOS_ITS ---
HPI - General General Date of Admission: 09/11/25 Date of Service: 09/11/25 Chief Complaint: Headache/Lightheadedness/Speech Difficulty/spasm HPI Larry SUAREZ, is a 70 F with a history of major depressive disorder and history of tardive dyskinesia who presented to the emergency department at [facility] on 09/11/2025 with headache, lightheadedness, speech difficulty, and spasms. She stated that her symptoms essentially started on . She woke up and was feeling okay. She had been on Benadryl nightly for about 8 to 10 years and was told recently to stop it for allergy testing. Last dose was Saturday evening. She stated the headache started gradually in the bilateral frontal area and is persistently in the bilateral frontal area but now wraps around the side some. She also has had some upper extremity muscle jerks and significant tension in her neck related to the spasming. This is not causing pain. She has had intermittent dysarthria and some intermittent word finding issues. Her family who is at the bedside states that it kind has ebbed and flowed. She initially reported some dizziness however it sounds like it was more positional. She denied any tingling numbness or weakness that was new in her arms or legs. She has had no fever or chills. And had been doing well otherwise. She follows with psychiatry and sees Dr. Andrew Argueta with her last appointment seeing him on 08/23/2025. She is on Ingrezza which has been very effective for her tardive dyskinesia in general. Vital signs at the time of presentation showed a temperature of 97.5, heart rate 79, respiratory rate 16, blood pressure is 129/90 and pulse ox was 99% on room air. Her CBC is completely unremarkable. Her chemistry panel is unremarkable. Her UA is not consistent with infection. Blood glucose is normal. EKG is sinus bradycardia with a rate of 57 and normal intervals with no ST-T wave changes concerning for acute ischemia. Chest x-ray shows no acute findings. CT of the brain was negative for any acute intracranial pathology. CTA of the head and neck was unremarkable. NIH was 2. Given her ongoing symptoms stroke rule out is pertinent at this time and she will be admitted under observation status for this. [facility] Medical History MDD (major depressive disorder) Major depressive disorder in full remission History of uterine ablation Atrial tachycardia TERESA (obstructive sleep apnea) Depression Essential hypertension Cardiomyopathy Congestive heart failure Infection due to ESBL-producing Escherichia coli Lower back pain Home Medications ?Medication ?Instructions ?Recorded ?Last Taken ?Type folic acid 1 mg tablet 1 mg PO DAILY SUPPLEMENT 04/0806/11/23 History simvastatin 40 mg tablet 40 mg PO QHS CHOLESTEROL 04/0806/10/23 History aspirin 81 mg tablet,delayed 81 mg PO DAILY 01/03/23 0 06/11/23 History release metoprolol succinate 25 mg See Rx Instructions .Route 03/31/23 06/11/23 Rx tablet,extended release 24 hr .COMPLEX #90 tabs diphenhydramine HCl 25 mg tablet 25 mg PO QHS PRN 11/21 02/11 Unknown History (Benadryl Allergy) valbenazine 80 mg capsule 40 mg PO DAILY 12/04/23 Unkn own History (Ingrezza) lisinopril 2.5 mg tablet 2.5 mg PO DAILY #90 TABLETS 09/04/24 Unknown Rx diclofenac sodium 75 mg mg PO 12/08/24 Unknown Histo ry tablet,delayed release amantadine HCl 100 mg tablet 100 mg PO BID 03/09/25 Un known History buspirone 15 mg tablet 15 mg PO BID 90 days #180 ta bs 08/23/25 Unknown Rx clonazepam 0.5 mg tablet 0.25 mg (1/2 x 0.5 mg) PO BI D 30 08/23/25 Unknown Rx days #30 tabs fluoxetine 20 mg capsule 20 mg PO QDAY #90 caps 08/23 Unknown Rx fluoxetine 40 mg capsule 40 mg PO DAILY 90 days #90 c aps 08/23/25 Unknown Rx Allergy/AdvReac Type Severity Reaction Status Date / Time cariprazine (From aylar) Allergy Mild DIZZINESS Verified 09/11/25 17:46 Family History Mother Heart disease Father Heart disease Brother Heart disease Surgical History History of tonsillectomy History of carpal tunnel surgery Social History Smoking Status: Never smoker alcohol intake: never substance use type: does not use caffeine: Yes (occasionally) ROS Constitutional Constitutional: Denies anorexia, change in weight, chills, fatigue, fever(s), malaise, night sweats, weakness or other Eyes Eyes: Denies blurry vision, change in eye color, change in vision, discharge from eye(s), double vision, erythema, eye pain, loss of vision or other ENT HEENT: Denies abnormal hearing, dysphagia, ear pain, epistaxis, headache(s), hearing loss, nasal congestion, nasal discharge, post nasal drip, sinus pressure, sore throat or other Cardiovascular Cardiovascular: Reports lightheadedness; Denies chest pain, claudication, dyspnea on exertion, edema, orthopnea, palpitations, paroxysmal nocturnal dyspnea, rapid heart rate, syncope or other Respiratory/Chest Respiratory/Chest: Denies cough, dyspnea, excessive phlegm production, hemoptysis, productive cough, shortness of breath at rest, shortness of breath with exertion, wheezing or other Gastrointestinal Gastrointestinal: Denies abdominal pain, coffee ground emesis, constipation, diarrhea, dyspepsia, hematemesis, hematochezia, loose stools, melena, nausea, vomiting or other Genitourinary Genitourinary: Denies burning urination, difficulty urinating, dysuria, hematuria, nocturia, urinary frequency, urinary hesitancy, urinary incontinence, urinary urgency or other Musculoskeletal Musculoskeletal: Reports joint pain, joint stiffness, neck pain and other; Denies arthralgias, back pain, joint swelling or myalgias Neurologic Neurologic: Reports abnormal speech, headache(s) and other Details: Myoclonus Psychiatric Psychiatric: Reports anxiety and depression; Denies homicidal ideation, suicidal ideation or other Endocrine Endocrinology: Denies change in body appearance, cold intolerance, excessive sweating, heat intolerance, polydipsia, polyuria or other Hematologic/Lymphatic Hematologic/Lymphatic: Denies anemia, easy bleeding, easy bruising, lymphadenopathy or other Allergic/Immunologic Allergic/Immunologic: Reports other; Denies rhinitis, hives, eczemia or asthma Vital Signs Vital Signs Vital Signs: 09/11/25 17:41 09/11/25 19:40 09/11/25 20:49 Temperature 97.5 F L Temperature Source Temporal Pulse Rate 79 62 Pulse Rate [Lying] 64 Pulse Rate [Sitting (for 1 minute prior to obtaining)] 72 Pulse Rate [Standing (for 1 minute prior to obtaining)] 73 Respiratory Rate 16 18 Blood Pressure 129/90 H 144/74 H Blood Pressure [Lying] 139/67 H Blood Pressure [Sitting (for 1 minute prior to obtaining)] 146/89 H Blood Pressure [Standing (for 1 minute prior to obtaining)] 151/74 H Blood Pressure Mean 103 97 Blood Pressure Mean [Lying] 91 Blood Pressure Mean [Sitting (for 1 minute prior to obtaining)] 108 Blood Pressure Mean [Standing (for 1 minute prior to obtaining)] 99 Pulse Ox 99 97 Oxygen Delivery Method Room Air 09/11/25 21:00 09/11/25 21:53 Temperature 98.6 F Temperature Source Pulse Rate 56 L 62 Pulse Rate [Lying] Pulse Rate [Sitting (for 1 minute prior to obtaining)] Pulse Rate [Standing (for 1 minute prior to obtaining)] Respiratory Rate 16 18 Blood Pressure 142/63 H 142/63 H Blood Pressure [Lying] Blood Pressure [Sitting (for 1 minute prior to obtaining)] Blood Pressure [Standing (for 1 minute prior to obtaining)] Blood Pressure Mean 89 89 Blood Pressure Mean [Lying] Blood Pressure Mean [Sitting (for 1 minute prior to obtaining)] Blood Pressure Mean [Standing (for 1 minute prior to obtaining)] Pulse Ox 97 100 Oxygen Delivery Method Room Air Weight Weight: 84.005 kg Body Mass Index (BMI) 33.8 Physical Exam Const alert, oriented x3 and well nourished Constitutional Narrative: Obese, upper middle-aged, white female, sitting up in bed, appears intermittently uncomfortable, family at bedside, does not look toxic General Appearance: cooperative HEENT normocephalic, head/scalp atraumatic and moist oral mucous membranes HEENT Narrative: Marked hearing loss without hearing aids hearing is fair with hearing aids in place, Mallampati is 3, no thrush Eyes conjunctivae normal Eyes Narrative: No scleral icterus Neck supple Neck Narrative: Muscle spasm noted in the posterior neck area with intermittent myoclonic twitching/jerks that do appear to be uncomfortable, trachea midline, no thyroid enlargement Resp normal respiratory effort, no retractions, no use of accessory muscles and clear to auscultation bilaterally Auscultation: Negative for crackles, rhonchi or wheezes Cardio regular rate, regular rhythm, S1 normal heart sound, S2 normal heart sound, no murmurs, no rub, no gallops and no clicks GI normal to inspection, nondistended, normoactive bowel sounds, soft to palpation and non-tender Extremity no clubbing, cyanosis or edema Extremity Narrative: 2+ pedal pulses Neuro oriented x3, CN's II-XII intact bilaterally, moves all extremities and no focal motor deficits Neuro Narrative: Intermittent myoclonic jerks, reflexes upper and lower extremity are 3+, speech is abnormal with dysarthria Speech: Negative for speech normal Psych affect normal Psych Narrative: Very pleasant, interacts appropriately, makes good eye contact, mood appears to be stable Results Lab / Micro Data 09/11/25 18:08 09/11/25 18:08 Labs: Laboratory Results - last 24 hr 09/11/25 18:08: WBC 8.2, RBC 4.52, Hgb 14.1, Hct 41.3, MCV 91.4, MCH 31.2, MCHC 34.1, RDW Std Deviation 41.8, RDW Coeff of Darlyn 12.5, Plt Count 277, MPV 11.2, Immature Gran % (Auto) 0.400, Neut % (Auto) 54.9, Lymph % (Auto) 36.5, [place] % (Auto) 7.2, Eos % (Auto) 0.5, Baso % (Auto) 0.5, Absolute Neuts (auto) 4.5, Absolute Lymphs (auto) 2.99, Nucleated RBC % 0, Sodium 138, Potassium 3.9, Chloride 103, Carbon Dioxide 23.3, Anion Gap 12, BUN 15, Creatinine 0.75, Estim Creat Clear Calc 67.64, Est GFR (MDRD) Non-Af 87, BUN/Creatinine Ratio 20.2 H, Glucose 96, Calcium 9.7 09/11/25 18:22: POC Glucose 91 09/11/25 19:10: Urine Color Yellow, Urine Clarity Clear, Urine pH 7.0, Ur Specific [place] 1.010, Urine Protein 15 H, Urine Glucose (UA) Normal, Urine Ketones Negative, Urine Occult Blood 10 H, Urine Nitrite Negative, Urine Bilirubin Negative, Urine Urobilinogen Normal, Ur Leukocyte Esterase 25 H, Urine RBC 0 SEEN, Urine WBC 0-5 SEEN, Ur Squamous Epith Cells 0-5 SEEN, Urine Bacteria 1+, Urine Mucus 0 SEEN Imaging Radiology Impression Brain CT 09/11/25 18:24 IMPRESSION: Negative for acute intracranial pathology. Reading Location: [facility] Head/Neck CTA 09/11/25 18:24 IMPRESSION: Negative for acute intracranial pathology. Age-appropriate appearance of the brain Negative CTA of the head Negative for large vessel occlusion. Negative for hemodynamic significant stenosis in either carotid system. Negative CTA of the neck. Reading Location: [facility] Chest X-Ray 09/11/25 18:50 IMPRESSION: Negative for acute cardiopulmonary disease. Reading Location: [facility] Assessment & Plan Assessment/Plan (1) Dysarthria: (2) Word finding difficulty: (3) Headache: (4) Lightheadedness: (5) Myoclonus: PLAN: Plan Dysarthria/word finding issues/myoclonus - Etiology is unclear at this point - CT brain and CTA head and neck were unremarkable - Patient had been on Benadryl regularly for about the last 8 to 10 years and stopped taking it in preparation for some allergy testing - Doubt this is the problem - Has history of tardive dyskinesia and currently on Ingrezza -Side effects of Ingrezza reviewed and symptoms do not appear to be consistent with this - Does not appear to be consistent with neuroleptic malignant syndrome - Check MRI with and without contrast - Check EEG - Check sed rate CRP - May need LP depending on above workup - As needed Valium to decrease myoclonus as she is getting significant neck pain related to this - Check echocardiogram for stroke workup - Check lipids/A1c - High intensity dose statin - Continue home aspirin - Monitor on telemetry - Stroke protocol per order set - Consult neurology for assistance Lightheadedness - Patient was given 1 L IV fluid in the emergency department - Seems to be a bit better - Will continue to monitor - Ingrezza can be associated with some lightheadedness Headache/neck pain - I am wondering if this is related to her muscle spasm - Continue as needed medication for pain - K-pad for neck - Valium for spasming hopefully this will help with headache and neck pain resolution - Imaging thus far unremarkable Essential hypertension/history of SVT secondary to atrial tach/hyperlipidemia - Continue home lisinopril - Continue home metoprolol - continue home simvastatin - Continue home aspirin History of cardiomyopathy - Resolved Major depressive disorder/anxiety - currently in remission - Continue home clonazepam - Continue home BuSpar next-continue home fluoxetine Tardive dyskinesia - Continue home Ingrezza - Continue home amantadine Obesity - BMI 33.9 - Complicates treatment, prognosis, outcomes - Recommend weight loss DVT prophylaxis - Enoxaparin 40 daily CODE STATUS - Full code as discussed with patient at the time of admission Charges/Coding Visit Charges Inpatient E&M: 86126 Init Hosp L2
--- OUTSIDE RECORDS SUMMARY | 2025-09-11 22:21 | XMS RPT_ITS | CCD ---
Author Organization [facility] [employer] Care Team Providers Care Nail Galvanizer Name Role Phone Juvencio Davila Attending Unavailable PROVIDER, UNKNOWN Referring Unavailable Marta, Juvencio Primary Care Unavailable Dr. Juvencio Davila Primary Care Provider Dr. Juvencio Davila Referring Provider Krystal SHAREPOINT ARCHITECT, SHAREPOINT ARCHITECT-Patrice Dunn Attending Provider [phone] Dr. Juvencio Davila Primary Care Provider Dr. Juvencio Davila Referring Provider Dr. Ghulam Rosa Attending Provider [phone] Juvencio Davila MD Primary Care Provider Juvencio Davila MD Primary Care Provider [employer], Adriane Unavailable MARTA JUVENCIO Primary Care Unavailable [...] cariprazine (2 sources) cariprazine Drug Allergy 05-24-2023 [facility] (20 sources) cariprazine Drug Allergy 05-24-2023 [facility] (1 source) cariprazine Drug Allergy 08-23-2025 [facility] Repository Medications Current Medications Medication Drug Class(es) [...] hours as needed for pain HYDROcodone-acetami nophen ([place]) 5-325 MG tablet Indications: Closed fracture of [...] LFT while on iv abx. Fax to [phone] fenofibrate 54 mg oral tablet (3 sources) [...] IntraVENous, IMG once PRN, contrast, Starting on [facility] 07/22/25 at 1522, For 1 dose [...] [facility] 36on 08-25-2025 36 Rx [facility] 36 Rx sent [facility] 36 Prescription Request : Last medication check: 02/10/24 Last physical exam: 12/08/24 Next scheduled appointment: 10/12/25 Last date of refill on this medication - 08/13/22 lisinopril 2.5mg I am not sure we prescribe for her 03/02/25 metoprolol 90 and 1 refill [facility] 36 Prescription Request : Last medication check: 02/10/24 Last physical exam: 12/08/24 Next scheduled appointment: 10/12/25 Last date of refill on this medication 03/08/25 90 and 1 refill [facility] MR/BMS.BPon 08-23-2025 MR/BMS.BP [address], [address] [place] [address] OFFICE VISIT Date of Service: 08/23/25 MR#: [id number] Acct: [id number] Name: KAMILA JOSEPH Rep #: [id number] : 1955 Provider: Dr. Andrew Cobian se, Age/Sex: 70/F Location: [facility].BP Status: Signed Intake Vital Signs 05/06/25 09:32 08/23/25 13:01 Height 5 ft 2 in 5 ft 2 in Weight: 186 lb BMI 34.0 BP 128/82 H Blood Pressure Location Lt brachial Position Sitting Respiration 16 Pulse 91 Pulse Source Monitor BP Intake Visit Reasons: 3 M FU Accompanied by: Daughter Allergies cariprazine (From [facility]) Allergy (Mild, Verified 08/23/25 13:07) DIZZINESS [...] in the past year?: Yes (broken elbow) [facility] Medical History MDD (major depressive disorder) Major [...] Psych Appearan (more content not included)... Normal [facility] Extremity Upper without Cont raon 08-20-2025 Extremity Upper without Contra [facility] Imaging Services [address] [place], [place] [id number] Extremity Upper without Contra MR#: [id number] Acct: [id number] Name: KAMILA JOSEPH Rep #: [id number] : 1955 F 70 From: Clarke De Leon MD PCP: Dr. Juvencio Davila MD Status: REG CLI Study: Extremity Upper without Contra Date of Exam: 1 Exam# [id number] Ordering Dr: Talya Smith PROCEDURE: EXTREMITY UPPER [...] Radial head fracture as above. Reading Location: [id number] CC: Dr. Juvencio Davila MD; ROEL Griffith Neurology Teacher: Signed Normal [facility] Ankle min 3 Viewson 08-15-20 Ankle min 3 Views [facility] Imaging Services [address] [place] [address] Ankle min 3 Views MR#: [id number] Acct: [id number] Name: KAMILA JOSEPH Rep #: [id number] : 1955 F 70 From: Bolivar Stevens MD PCP: Dr. Juvencio Davila MD Status: REG ER Study: Ankle min 3 Views Date of Exam: 08/15/25 Exam# [id number] Ordering Dr: Reid Lambert DO PROCEDURE: FOOT [...] abnormality of the right foot. Reading Location: [id number] CC: Dr. Reid Lambert DO; Dr. Juvencio Davila MD Neurology Teacher: Signed Normal [facility] Elbow min 3 Viewson 08-15-20 Elbow min 3 Views [facility] Imaging Services [address] [place] [id number] Elbow min 3 Views MR#: [id number] Acct: [id number] Name: KAMILA JOSEPH Rep #: [id number] : 1955 F 70 From: Bolivar Stevens MD PCP: Dr. Juvencio Davila MD Status: REG ER Study: Elbow min 3 Views Date of Exam: 08/15/25 Exam# [id number] Ordering Dr: Reid Lambert DO PROCEDURE: ELBOW [...] Views IMPRESSION: Radial head fracture. Reading Location: [facility] CC: Dr. Reid Lambert DO; Dr. Juvencio Davila MD Neurology Teacher: Signed Normal [facility] Emergency Department Summary on 08-15-2025 Emergency Department Summary [facility] Medical Records Department [address] [place] [address] Emergency Department Summary 08/15/25 MR#: [id number] Acct: [id number] Name: KAMILA JOSEPH Rep #: [id number] : 1955 70 From: Reid Lambert DO [...] She denies any neck or back pain. [facility] Medical History MDD (major depressive disorder) [...] Reaction Status Date / Time cariprazine (From [facility]) Allergy Mild DIZZINESS Verified 08/15/25 14:05 [...] bilaterally Neck (more content not included)... Normal [facility] Foot min 3 Viewson Foot min 3 Views [facility] Imaging Services [address] [place], [place] [address] Foot min 3 Views MR#: [id number] Acct: [id number] Name: KAMILA JOSEPH Rep #: [id number] : 1955 F 70 From: Bolivar Stevens MD PCP: Dr. Juvencio Davila MD Status: REG ER Study: Foot min 3 Views Date of Exam: 08/15/25 Exam# [id number] Ordering Dr: Reid Lambert DO PROCEDURE: FOOT [...] abnormality of the right foot. Reading Location: [id number] CC: Dr. Reid Lambert DO; Dr. Juvencio Davila MD Neurology Teacher: Signed [facility] Wrist min 3 Viewson 08-15-20 Wrist min 3 Views [facility] Imaging Services [address] [facility] [address] [place], [place] [address] Wrist min 3 Views MR#: [id number] Acct: [id number] Name: KAMILA JOSEPH Rep #: [id number] : 1955 F 70 From: Bolivar Stevens MD PCP: Dr. Juvencio Davila MD Status: REG ER Study: Wrist min 3 Views Date of Exam: 08/15/25 Exam# [id number] Ordering Dr: Reid Lambert DO PROCEDURE: WRIST [...] abnormality of the right wrist. Reading Location: [id number] CC: Dr. Reid Lambert DO; Dr. Juvencio Davila MD Neurology Teacher: Signed [facility] 36on 08-09-2025 36 Please schedule patient for follow up appointment for continued refills. Requested Prescriptions Signed Prescriptions Disp Refills valbenazine tosylate (Ingrezza) 40 MG capsule 30 capsule 1 Sig: Take 1 capsule (40 mg) by mouth daily. Authorizing Provider: VIOLET CASTELLANOS [facility] 36on 06-24-2025 36 Reviewed chart. Refi ll appropriate. RX sent. [facility] 36 Prescription Request : SIMVASTATIN 40 MG TABLET Last medication check: 03/08/25 Last physical exam 12/08/24 Next scheduled appointment: 10/12/25 Last date of refill on this medication 01/01/25 ( qty 90 refill 1) [facility] 36on 06-15-2025 36 Could we please orde cynthia a thoracic MRI based radiologist recommendation. When she has that obtained, we can do a telephone visit to review her MRI results. [facility] 36on 05-06-2025 36 Name of Caller: Leanna Contact Reason for Appointment: Daughter will call back to schedule the 05/06/25 missed appointment when she is able to check transportation for Blenda. Please be advised. Office Name: PL Neuro [facility] MR/BMS.BP 05-06-2025 MR/BMS.BP [address], [place] [address] OFFICE VISIT Date of Service: 05/06/25 MR#: [id number] Acct: [id number] Name: KAMILA JOSEPH Rep #: [id number] : 1955 Provider: Dr. Andrew Cobian se, DO Age/Sex: 69/F Location: [facility] [facility].BP Status: Signed Intake Vital [...] year?: Yes (Broken elbow torn rotator cuff) [facility] Medical History (Updated 06/09/24 @ 12:[address] Andrew Argueta, ) MDD (major depressive disorder) Major depressive disorder in full remission History of uterine ablation Atrial tachycardia ETRESA (obstructive sleep apnea) Depression Essential hypertension Cardiomyopathy [...] coherent Thought C (more content not included)... [facility] 05-03-2025 36 Requested Prescriptions Signed Prescriptions Disp Refills valbenazine tosylate (Ingrezza) 40 MG capsule 30 capsule 3 Sig: Take 1 capsule (40 mg) by mouth daily. Authorizing Provider: VIOLET CASTELLANOS [facility] 04-09-2025 36 Filled to requesting pharmacy on 12/23/2024 for 6-month supply. Should not be due for refill until June. [facility] 03-12-2025 36 Called and spoke luke Ram whom is the patient's daughter and POA. Notified I will send a prescription for Bactrim and a one-time dose of Diflucan into the pharmacy. Recommend follow-up in the office if symptoms are not improving. [facility] Progress Noteon 03-12-2025 Progress Note Called and spoke luke Ram whom is the patient's daughter and POA. Notified I will send a prescription for Bactrim and a one-time dose of Diflucan into the pharmacy. Recommend follow-up in the office if symptoms are not improving. [facility] MR/BMS.BPon 03-09-2025 MR/BMS.BP [address], [address] [place] [address] OFFICE VISIT Date of Service: 03/09/25 MR#: [id number] Acct: [id number] Name: KAMILA JOSEPH Rep #: [id number] : 1955 Provider: Dr. Andrew Cobian se, DO Age/Sex: 69/F Location: [facility].BP Status: Signed Intake Vital Signs 12/08/24 13:00 03/09/25 13:38 Height 5 ft 2 in 5 ft 2 in Weight: 182 lb BMI 33.3 BP 124/84 H 118/71 Blood Pressure Location Lt brachial Lt brachial Position Sitting Sitting Respiration 16 16 Pulse 77 66 Pulse Source Monitor Monitor BP Intake Visit Reasons: 3 M FU Accompanied by: Self Allergies cariprazine (From [facility]) Allergy (Mild, Verified 03/09/25 13:40) DIZZINESS [...] in the past year?: Yes (Intermittent instability) [facility] Medical History (Updated 06/09/24 @ 12:40 by [...] since November but is going back to [place] next week. Is feeling very bored. Is [...] and coherent (more content not included)... Normal [facility] 36on 03-08-2025 36 Reviewed chart. Refi ll appropriate. RX sent. [facility] 36 Prescription Request : FOLIC ACID 1 MG TABLET Last medication check: 12/08/24 Last physical exam: 12/08/24 Next scheduled appointment: 03/08/25 Last date of refill on this medication 09/03/24 ( qty 90 refill 1) [facility] Office Visiton 03-08-2025 Follow-up visit [id number] Ras Joseph 1955 F Date Provider Department Center 03/08/2025 [id number] HUBBARD [facility] Family History Problem Relation Age of Onset Substance Abuse Mother Heart disease Mother Heart disease Father Prostate cancer Father Breast cancer Mother's Sister Family Status - Relation Status Age at Mother Alive Father Mother's Sister Level of Service:42293 HI OFFICE/OUTPATIENT ESTABLISHED MOD MDM 30 MIN Reason for Visit and Comments: Medication Check [[id number]] Health Maintenance [872] - ?Derm Melanoma Skin Check-NEEDS COMPLETED ?Depression Monitoring-completed [facility] Progress Noteon 03-08-2025 Progress Note Stable. Followed by cardiology continue current medications [facility] Progress Note Controlled. Blood pressure 117/72, continue metoprolol 25 mg daily and lisinopril 2.5 mg daily [facility] Progress Note Follow-up with psychiatry as directed [facility] Progress Note Patient wearing CPAP nightly. Reports good sleep and feels well rested during the daytime. [facility] Progress Note Stable. Continue to follow-up with psychiatry and neurology [facility] Progress Note Improving. Continue follow-up with neurology [facility] Progress Note Patient was identifi ed by name and Date of . Health Maintenance Due Topic Derm Melanoma Skin Check-NEEDS COMPLETED Depression Monitoring-completed SDOH/ELIZABETH/PHQ-need completed-sent via [facility] AWV/fasting labs---needs scheduled for 11/2025 [facility] Progress Note 03/08/2025 Kamila Joseph (: 1955) [...] to authenticate this note. Adriane Navarrete Magdaleno, [employer] 03/08/2025 4:54 PM [1] Current Outpatient Medications [...] MG cap (more content not included)... [facility] 36on 03-05-2025 36 Leanna notified. No further action needed. Closing encounter. [facility] 36 Requested Prescriptions Signed Prescriptions Disp Refills amantadine (Symmetrel) 100 MG tablet 180 tablet 3 Sig: Take 1 tablet (100 mg) by mouth 2 times daily. Authorizing Provider: VIOLET CASTELLANOS [facility] 36 Name of caller: Leanna Contact phone number: [phone] Relationship to Patient: family member daughter Provider: Dr Miranda Practice: Neurology Chief Complaint/Reason for Call: Leanna called stating that she called [facility] for a refill on patients amantadine (Symmetrel) 100 MG tablet and was told that medication had been discontinued. Script was sent to the [facility] and Leanna stated [facility] should have gone to [facility] on [facility]. Please advise. Best time of day caller can be reached: Any Patient advised that office/PCP has 24-48 business hours to return their call: N/A [facility] 36on 03-02-2025 36 Prescription Request : METOPROLOL SUCC ER 25 MG TAB Last medication check: 12/08/24 Last physical exam: 12/08/24 Next scheduled appointment: 03/08/25 Last date of refill on this medication 09/07/24 ( qty 90 refill 1) [facility] 36on 02-10-2025 36 Called and spoke luke Ram, patient's POA. Informed her of normal mammogram results [facility] 36 ----- Message from SOO Grant CNP sent at 02/10/2025 1:50 PM EDT ----- Mammogram - negative Recommend routine screening mammogram bilateral in 1 year [facility] DBT Breast - left diagnostic on 02-10-2025 No mammographic evidence of malignancy in the left breast. Markings on images: BB's = Nipples; skin lesions [employer] = Palpable Line = Scar ASSESSMENT: Category [...] 1:22 PM EDT [facility] [employer] Patient Name: KAMILA JOSEPH : 1955 Exam Date/Time: 02/10/2025 12:58 Procedure: BI MAMMOGRAM DIAGNOSTIC TOMOSYNTHESIS LEFT Ordering Provider: HUBBARD REBECCA Reason For Exam: This exam was performed at [place] [address] [address] [place] [address] PATIENT CANCER HISTORY: No Personal History of [...] distortions, or suspiciously clustered microcalcifications were seen. [facility] Oscar Elizabeth MD - 02/10/2025 Patient Name: KAMILA JOSEPH : 1955 Exam Date/Time: 02/10/2025 12:58 Procedure: BI MAMMOGRAM DIAGNOSTIC TOMOSYNTHESIS LEFT Ordering Provider: HUBBARD REBECCA Reason For Exam: This exam was performed at [place] [address] [address] [place] [address] PATIENT CANCER HISTORY: No Personal History of [...] images: BB's = Nipples; skin lesions [employer] = Palpable Line = Scar ASSESSMENT: Category [...] Electronically Signed Date/Time: 02/10/2025 1:22 PM EDT [facility] [employer] Radiology Study observation (narrative) [facility] DBT Breast - left diagnostic Ordered By: Oscar Elizabeth on 02-10-2025 [employer] Work Phone: Office Visiton 02-10-2025 Follow-up visit [id number] Ras Joseph 1955 F Date Provider Department Center 02/10/2025 [id number] MIRANDA [facility] [place] Family History Problem Relation Age of Onset Substance Abuse Mother Heart disease Mother Heart disease Father Prostate cancer Father Breast cancer Mother's Sister Family Status - Relation Status Age at Mother Alive Father Mother's Sister Level of Service:06338 HI OFFICE/OUTPATIENT ESTABLISHED LOW MDM 20 MIN Reason for Visit and Comments: Follow-up [997982] - Neuroleptic - induced tardive dyskinesia Normal [facility] [employer] [facility] Progress Noteon 02-10-2025 Progress Note Department [...] Gastrointestinal: Negativ (more content not included)... [facility] 36on 01-06-2025 36 Requested Prescriptions Signed Prescriptions Disp Refills valbenazine tosylate (Ingrezza) 40 MG capsule 30 capsule 3 Sig: Take 1 capsule (40 mg) by mouth daily. Authorizing Provider: VIOLET CASTELLANOS [facility] 36on 01-04-2025 36 We would be happy [...] myself and their primary care physician. [facility] 36on 01-01-2025 36 Rx sent. Follow up a s scheduled. [facility] 36 Prescription Request : Last medication check: 12-23-24 Last physical exam: 2=18-25 Next scheduled appointment: 03-08-25 Last date of refill on this medication 07-06-24 [facility] Office Visiton 01-01-2025 Follow-up visit [id number] Ras Joseph 1955 F Date Provider Department Center 01/01/2025 [id number] [facility] P None Family History Problem Relation Age of Onset Substance Abuse Mother Heart disease Mother Heart disease Father Prostate cancer Father Breast cancer Mother's Sister Family Status - Relation Status Age at Mother Alive Father Mother's Sister Level of Service:39955 HI OFFICE/OUTPATIENT ESTABLISHED MOD MDM 30 MIN Reason for Visit and Comments: Follow-up [225451] - 1 month follow up [facility] Progress Noteon 01-01-2025 Progress Note Department of [...] speak to. Agreeable to further testing. [facility] 36 ----- Message from SOO Grant CNP sent at 12/28/2024 5:01 PM EDT ----- Mammogram- asymmetry noted in the left breast, recommend diagnostic mammogram left with left breast ultrasound to further evaluate. [facility] DBT Breast - bilateral scree ningOrdered By: Jackeline Bolton on 12-28-2024 Interpretation and review of laboratory results Abnormal [facility] [employer] Work Phone: [facility] [employer] Phone: DBT Breast - bilateral scree ningon [...] Electronically Signed Date/Time: 12/28/2024 4:22 PM EDT [facility] Patient Name: KAMILA JOSEPH : 1955 Exam Date/Time: 12/28/2024 14:17 Procedure: BI MAMMOGRAM SCREENING TOMOSYNTHESIS BILATERAL Ordering Provider: HUBBARD REBECCA Reason For Exam: This exam was performed at [facility] [address] [place] [address] PATIENT CANCER HISTORY: No Personal History of Cancer FAMILY CANCER HISTORY: Father Prostate Cancer Maternal Aunt Breast Cancer Image views: 2D Bilateral CC and MLO views were acquired. 3D Bilateral CC and MLO views were acquired. Images were reviewed with CAD. Markings on images: BB's = Nipples; skin lesions [employer] = Palpable Line = Scar COMPARISON: 10/31/2018, [...] 12/28/2024 [facility] 1955 [id number] Exam Date/Time: 12/28/2024 14:17 Procedure: BI MAMMOGRAM SCREENING TOMOSYNTHESIS BILATERAL Ordering Provider: HUBBARD REBECCA Reason For Exam: This exam was performed at [facility] [address] [facility] [address] PATIENT CANCER HISTORY: No Personal History of Cancer FAMILY CANCER HISTORY: Father Prostate Cancer Maternal Aunt Breast Cancer Image views: 2D Bilateral CC and MLO views were acquired. 3D Bilateral CC and MLO views were acquired. Images were reviewed with CAD. Markings on images: BB's = Nipples; skin lesions [employer] = Palpable Line = Scar COMPARISON: 10/31/2018, [...] Electronically Signed Date/Time: 12/28/2024 4:22 PM EDT [facility] Radiology Study observation (narrative) [facility] 12-23-2024 29 Addended by: ADRIANE HUBBARD on: 12/23/2024 09:42 AM Modules accepted: Orders [facility] 12-23-2024 36 New rx sent [place] [address] Pharmacy does not stock the 500-5 mg-mcg tablets; they can provide 600-5 mg-mcg. Please advise, can we send new rx? [facility] 36 Name of caller: Ross davenport @ [facility] location Contact phone number: [phone] Relationship to Patient: Pharmacy Provider: Adriane Hubbard Practice: [facility] Chief Complaint/Reason for Call: The following was called in to [facility] for patient 12/22/24: Calcium Carb-Cholecalciferol 500-5 MG-MCG tablet tablet [[id number]] Order Details Dose: 2 tablet Route: Oral [...] hours to return their call: No [facility] 12-22-2024 36 Notified, Leanna is asking for you to send this to [facility] as a prescription since her insurance should pay for some of it if not all of it. ----- Message from SOO Grant CNP sent at 12/22/2024 7:16 AM EST ----- Dexa Scan shows osteopenia. Recommend calcium 1200 mg/day and vit d 2,000 international units daily, weight bearing exercise. Repeat dexa in 2-3 years [facility] DEXA BONE DENSITY AXIAL SKEL ETONon 12-21-2024 [...] dual energy x-ray observed absorptiometry device - [employer] W. Regions of interest were obtained through [...] Electronically Signed Date/Time: 12/21/2024 4:44 PM EST [place] [employer] [facility] DXA Skeletal system.axial Vi ews [...] dual energy x-ray observed absorptiometry device - Holo[employer] W. Regions of interest were obtained through [...] dual energy x-ray observed absorptiometry device - [employer] Horizon W. Regions of interest were obtained [...] Electronically Signed Date/Time: 12/21/2024 4:44 PM EST [facility] [employer] Radiology Study observation (narrative) [facility] [employer] (Inspect Manager) [facility] DXA Skeletal system.axial Vi ews for bone densityOrdered By: Sarabjit Starks on 12-21-2024 [facility] [employer] Work Phone: US Heart TransthoracicOrdere d By: Gen West on 12-21-2024 Aortic Arch 3.2 cm [facility] [employer] Work Phone: Aortic Sinus Valsalva 3.3 cm [facility] [employer] Work Phone: Aortic Sinus Valsalva Index 1.79 cm/m2 [facility] [employer] Work Phone: Aortic valve Orifice area by US 2.8 cm2 [facility] [employer] Work Phone: Ascending Aorta 3.6 cm [facility] Work Phone: Ascending Aorta Index 1.96 cm/m2 [facility] [employer] Work Phone: E/E' Lateral 14.5 [facility] [employer] Work Phone: E/E' Ratio (Averaged) 15.95 Sum [facility] Work Phone: E/E' Septal 17.4 [facility] [employer] Work Phone: Est. RA Pressure 3 mmHg [facility] Work Phone: Fractional Shortening 2D 29 % 28 - 44 % [facility] [employer] Work Phone: Global Longitudinal Strain -16.9 % [facility] [employer] Work Phone: Interpretation and review of laboratory results Abnormal [facility] [employer] Work Phone: IVC Diameter 1.5 cm [facility] [employer] Work Phone: IVSd 1.1 cm Abnormal 0.6 - 0.9 cm [facility] [employer] Work Phone: LA Diameter 4 cm [facility] [employer] Work Phone: LA Size Index 2.17 cm/m2 [facility] Work Phone: LA Volume 2C 38 mL 22 - 52 mL [facility] Work Phone: LA Volume 4C 45 mL 22 - 52 mL [facility] Work Phone: LA Volume A/L 44 mL [facility] Work Phone: LA Volume BP 42 mL 22 - 52 mL [facility] Work Phone: LA Volume Index 2C 21 mL/m2 16 - 34 mL/m2 [facility] Work Phone: LA Volume Index 4C 24 mL/m2 16 - 34 mL/m2 [facility] Work Phone: [phone] LA Volume Index A/L 24 mL/m2 16 - 34 mL/m2 [facility] Work Phone: [phone] LA Volume Index BP 23 ml/m2 16 - 34 ml/m2 [facility] Work Phone: [phone] Left ventricular Ejection fraction by US.2D+Calculated by biplane method of disks 65 % 55 - 100 % [facility] Work Phone: LV E' Lateral Velocity 6 cm/s [facility] Work Phone: LV E' Septal Velocity 5 cm/s [facility] Work Phone: LV EDV A2C 71 mL [facility] Work Phone: LV EDV A4C 78 mL [facility] Work Phone: LV EDV BP 78 mL 56 - 104 mL [facility] Work Phone: LV EDV Index A2C 39 mL/m2 [facility] Work Phone: LV EDV Index A4C 42 mL/m2 [facility] Work Phone: LV EDV Index BP 42 mL/m2 [facility] Work Phone: LV Ejection Fraction A2C 63 % [facility] Work Phone: LV Ejection Fraction A4C 63 % [facility] Work Phone: LV ESV A2C 27 mL [facility] Work Phone: LV ESV A4C 29 mL [facility] Work Phone: LV ESV BP 28 mL 19 - 49 mL [facility] Work Phone: LV ESV Index A2C 15 mL/m2 [facility] Work Phone: LV ESV Index A4C 16 mL/m2 [facility] Work Phone: LV ESV Index BP 15 mL/m2 [facility] Work Phone: LV Mass 2D 171.7 g Abnormal 67 - 162 g [facility] Work Phone: LV Mass 2D Index 93.3 g/m2 43 - 95 g/m2 [facility] Work Phone: LV RWT Ratio 0.63 [facility] Work Phone: LVIDd 4.1 cm 3.9 - 5.3 cm [facility] Work Phone: LVIDd Index 2.23 cm/m2 [facility] Work Phone: LVIDs 2.9 cm [facility] Work Phone: LVIDs Index 1.58 cm/m2 [facility] Work Phone: LVOT Cardiac Output 3.2 liter/minute [facility] Work Phone: LVOT Diameter 1.9 cm [facility] Work Phone: LVOT Mean Gradient 2 mmHg [facility] Work Phone: LVOT Peak Gradient 3 mmHg [facility] Work Phone: LVOT Peak Velocity 0.9 m/s [facility] Work Phone: LVOT Stroke Volume Index 32.8 mL/m2 [facility] Work Phone: LVOT SV 60.4 ml [facility] Work Phone: LVOT VTI 21.3 cm [facility] Work Phone: LVPWd 1.3 cm Abnormal 0.6 - 0.9 cm [facility] Work Phone: MV A Velocity 0.83 m/s [facility] Work Phone: MV E Velocity 0.87 m/s [facility] Work Phone: MV E Wave Deceleration Time 198.9 ms [facility] Work Phone: MV E/A 1.05 [facility] Work Phone: Pulmonary Artery EDP 2 mmHg [facility] Work Phone: RA Area 4C 27 mL [facility] Work Phone: RA Area 4C 25.9 mL [facility] Work Phone: RV Basal Dimension 4.1 cm [facility] Work Phone: RV Free Wall Peak S' 13 cm/s [facility] Work Phone: RV Longitudinal Dimension 6.5 cm [facility] Work Phone: RV Mid Dimension 3.7 cm [facility] Work Phone: Sinotubular Junction 2.2 cm [facility] Work Phone: TAPSE 1.7 cm 1.7 cm [facility] Work Phone: [facility] Work Phone: US Heart Transthoracicon [...] CV CPACS Office Visiton 12-10-2024 Follow-up visit [id number] Ras Joseph 1955 F Date Provider Department Center 12/10/2024 [id number] WILCOX [facility] [place] None Family History Problem Relation Age of Onset Breast cancer Mother's Sister Substance Abuse Mother Heart disease Father Heart disease Mother Family Status - Relation Status Age at Mother's Sister Mother Alive Father Level of Service:98930 HI OFFICE/OUTPATIENT NEW MODERATE MDM 45 MINUTES Reason for Visit and Comments: New Patient [542] - Right elbow injury [facility] Progress Noteon 12-10-2024 Progress Note [facility] [place] [address] [place] [address] [place] [address] Dept: [phone] Dept 12/10/2024 Chief Complaint Patient presents with [...] 08/11/2024 Performed by Mason Haynes MD at [facility] COLONOSCOPY W/ BIOPSIES AND POLYPECTOMY N/A 08/11/2024 Performed by Mason Haynes MD at [facility] TONSILLECTOMY (HISTORICAL) WRIST SURGERY Past Medical [...] EVERY DAY 90 tablet 1 HYDROcodone-acetaminop hen ([place]) 5-325 MG tablet Take 1 tablet by [...] OBJECTIVE H (more content not included)... [facility] XR Humerus - right Viewson 0 12-10-2024 No acute osseous abnormality of the right humerus. Report Dictated on Electronically Signed By: William Neal MD Electronically Signed Date/Time: 12/10/2024 5:15 PM EST [facility] Patient Name: KAMILA JOSEPH : [...] Bony mineralization and soft tissues are normal. [facility] Yvette Neal MD - 12/10/2024 Patient [...] Electronically Signed Date/Time: 12/10/2024 5:15 PM EST [facility] Radiology Study observation (narrative) [facility] XR Humerus - right ViewsOrde red By: Yvette Neal on 12-10-2024 [facility] Work Phone: 37on 12-08-2024 37 If your insurance do es not change you may Schedule MRI for around 06/07/2025. Once you have this scheduled you can schedule a follow-up with Dr. Mann to review MRI [facility] 37 Personalized Preventative Plan for Kamila Joseph [...] Recommendations: A preventive eye exam by an dispute resolution specialist is recommended every 1-2 years to screen for glaucoma, cataracts, macular degeneration, and other eye disorders. A preventive dental visit is recommended every 6 months. Try to get at least 150 minutes of exercise per week or 10,000 steps per day on a pedometer. You need 1200-1500mg of calcium and 3689-5481 international units of vitamin D per day. [...] riding a bicycle or a motorcycle [facility] MR/BMS.BPon 12-08-2024 MR/BMS.BP [address], [address] [place] [address] OFFICE VISIT Date of Service: 12/08/24 MR#: [id number] Acct: [id number] Name: KAMILA JOSEPH Rep #: [id number] : 1955 Provider: Dr. Andrew Cobian se, DO Age/Sex: 69/F Location: [facility].BP Status: Signed Intake Vital [...] the past year?: Yes (Several- recent fracture) [facility] Medical History (Updated 06/09/24 @ 12:40 by [...] Appearance c (more content not included)... Normal [facility] Office Visiton 12-08-2024 Follow-up visit [id number] Ras Joseph 1955 Date Provider Department Center 12/08/2024 [id number] [facility] None Family History Problem Relation Age of Onset Breast cancer Mother's Sister Substance Abuse Mother Heart disease Father Heart disease Mother Family Status - Relation Status Age at Mother's Sister Mother Alive Father Level of Service:00710 HI OFFICE/OUTPATIENT ESTABLISHED MOD MDM 30 MIN Reason for Visit and Comments: Follow-up [088178] Back Pain [12] [facility] Follow-up visit [id number] Ras Joseph 1955 Date Provider Department Center 12/08/2024 [id number] VO [facility] Family History Problem Relation Age of Onset Breast cancer Mother's Sister Substance Abuse Mother Heart disease Father Heart disease Mother Family Status - Relation Status Age at Mother's Sister Mother Alive Father Level of Service:G0439 HI PPPS, SUBSEQ VISIT Reason for Visit and Comments: Medicare Annual Wellness Visit Subsequent [677] Health Maintenance [872] - ?Bone Density Scan-NEEDS TO SCHEDULE ?Derm Melanoma Skin Check-needs completed ?Hepatitis C Screening-declined ?Pneumococcal Vaccine-declined ?Hepatitis B Vaccines-declined ?RSV Immunization-declined ?Mammogram-ntaa'd December 282024 ?Diabetes Screening-Today ?Echocardiogram-DISCUS S WITH PROVIDER LAST COMPLETED ?Influenza Vaccine-declined ?COVID-19 Vaccine-declined [facility] Progress Noteon 12-08-2024 Progress Note Improving. Continue follow-up with neurology [facility] Progress Note Follow-up with orthopedic as directed [facility] Progress Note Controlled. Blood pressure 137/81, continue metoprolol 25 mg daily and lisinopril 2.5 mg daily [facility] Progress Note Check lipids, contin ue simvastatin 40 mg daily [facility] Progress Note Stable. Is due for echocardiogram. Continue current medications [facility] Progress Note Stable. Is due for h er echocardiogram, continue current medications [facility] Progress Note Stable, managed by neurology, follow-up with neurology [facility] Progress Note Stable. Continue to follow-up with psychiatry and neurology [facility] Progress Note [facility] [place] [facility] [address] [facility] [address] Dept: [phone] Dept Kamila Joseph 1955 [id number] 12/08/2024 Problem List: Neck pain Cervical spondylosis [...] EVERY DAY 90 tablet 1 HYDROcodone-acetaminop hen ([place]) 5-325 MG tablet Take 1 tablet by [...] 08/11/2024 Performed by Mason Haynes MD at [facility] COLONOSCOPY W/ BIOPSIES AND POLYPECTOMY N/A 08/11/2024 Performed by Mason Haynes MD at [facility] TONSILLECTOMY (HISTORICAL) WRIST SURGERY Social History [...] Resource Strai (more content not included)... [facility] Progress Note Patient was identifi ed by name and Date of . -CLOCK -WORDS -AWV Questions Health Maintenance Due Topic Bone Density Scan-NEEDS TO SCHEDULE Derm Melanoma Skin Check-needs completed Hepatitis C Screening-declined Pneumococcal Vaccine-declined Hepatitis B Vaccines-declined RSV Immunization-declined Mammogram-nata'd December 282024 Diabetes Screening-Today Echocardiogram-DISCUSS WITH PROVIDER LAST COMPLETED Influenza Vaccine-declined COVID-19 Vaccine-declined [facility] Progress Note - [address] [address] Dept: [phone] Dept Chief Complaint: Kamila Joseph is an [...] EVERY DAY 90 tablet 1 HYDROcodone-acetaminop hen ([place]) 5-325 MG tablet Take 1 tablet by [...] that her mood is pretty good-she sees [facility] in [place] Hypertension-blood pressure has been good is currently [...] 12/08/2025 DTaP/Tda (more content not included)... [facility] Office Visiton 12-07-2024 Follow-up visit [id number] Ras Joseph 1955 F Date Provider Department Center 12/07/2024 [id number] MIRANDA [facility] [place] None Family History Problem Relation Age of Onset Breast cancer Mother's Sister Substance Abuse Mother Heart disease Father Heart disease Mother Family Status - Relation Status Age at Mother's Sister Mother Alive Father Level of Service:55225 HI OFFICE/OUTPATIENT ESTABLISHED MOD MDM 30 MIN Reason for Visit and Comments: Follow-up [281127] - Dyskinesia [facility] Progress Noteon 12-07-2024 Progress Note Department of [...] mouth daily. 30 capsule 3 HYDROcodone-acetaminop hen ([place]) 5-325 MG tablet Take 1 tablet by [...] kg/m? Phys (more content not included)... [facility] ED Provider Noteon ED Provider Note EMERGENCY [...] otherwise acutely negative except as in the [place]. PAST MEDICAL HISTORY Past Medical History: Diagnosis [...] 08/11/2024 Performed by Mason Haynes MD at [facility] COLONOSCOPY W/ BIOPSIES AND POLYPECTOMY N/A 08/11/2024 Performed by Mason Haynes MD at [facility] TONSILLECTOMY (HISTORICAL) WRIST SURGERY CURRENT MEDICATIONS [...] Vitals [ (more content not included)... [facility] No Panel Informationon 12-05 Comminuted and impacted radial head fracture. No additional fracture or evidence of dislocation within the right elbow and right wrist. Report Dictated on Electronically Signed By: Rajni Robles DO Electronically Signed Date/Time: 12/05/2024 9:12 PM [facility] Bud Malik DO 12/06/2024 4:20 AM Splint Application Performed by: Bud Malik DO Authorized by: Bud Malik DO Consent: Consent obtained: Verbal Consent given by: Patient Risks, benefits, and alternatives were discussed: yes Risks discussed: Discoloration, numbness and pain Alternatives discussed: No treatment Reagan protocol: Procedure explained and questions answered to [...] Procedure completion: Tolerated Post-procedure imaging: not applicable [facility] No Panel InformationOrdered By: Rajni Robles on 12-05-2024 [employer] Work Phone: XR Elbow - right 3 [...] at the distal radioulnar and radiocarpal joints. [facility] Rajni Robles DO - 12/05/2024 [...] Electronically Signed Date/Time: 12/05/2024 9:12 PM EST [facility] Radiology Study observation (narrative) Miguel [...] at the distal radioulnar and radiocarpal joints. [facility] Rajni Robles DO - 12/05/2024 [...] DO Electronically Signed Date/Time: 12/05/2024 9:12 PM [facility] Radiology Study observation (narrative) Miguel Angel [...] myself and their primary care physician. [facility] MR Cervical spine WO contras ton 11-02-2024 [...] MD Electronically Signed Date/Time: 11/02/2024 4:04 PM [facility] Patient Name: KAMILA JOSEPH : 1955 [...] Electronically Signed Date/Time: 11/02/2024 4:04 PM EST [facility] Radiology Study observation (narrative) [facility] Cervical spine WO contras tOrdered By: Lincoln Miller on 11-02-2024 [employer] Work Phone: 37on 10-30-2024 37 We will notify you once we have approval from your insurance. You will then call central scheduling at [phone] to schedule. Please call our office at [phone] once MRI is scheduled to schedule a follow up visit with Dr. Mann for review. Normal [facility] Office Visiton 10-30-2024 Follow-up visit [id number] Ras Joseph 1955 F Date Provider Department Center 10/30/2024 [id number] [facility] OR None Family History Problem Relation Age of Onset Breast cancer Mother's Sister Substance Abuse Mother Heart disease Father Heart disease Mother Family Status - Relation Status Age at Mother's Sister Mother Alive Father Level of Service:96104 HI OFFICE/OUTPATIENT NEW MODERATE MDM 45 MINUTES Reason for Visit and Comments: Back Pain [12] New Patient [542] Normal [facility] Progress Noteon 10-30-2024 Progress Note [facility] [place] [facility] [address] [facility] [address] Dept: [phone] Dept Kamila Joseph 1955 [id number] 10/30/2024 Problem List: Neck pain Cervical myelopathy [...] 08/11/2024 Performed by Mason Haynes MD at [facility] COLONOSCOPY W/ BIOPSIES AND POLYPECTOMY N/A 08/11/2024 Performed by Mason Haynes MD at [facility] TONSILLECTOMY (HISTORICAL) WRIST SURGERY Social History [...] (12/30/2023) Hu (more content not included)... [facility] XR CERVICAL SPINE COMPLETE 4 -5 VIEWSon 10-30-2024 XR CERVICAL SPINE COMPLETE 4-5 VIEWS There is no carotid artery calcifications noted. No abnormal pre-vertebral swelling. No obvious fracture or instability. No congenital stenosis. Maintenance of normal cervical lordosis noted. Mild multi-level degenerative disc disease noted with moderate degenerative changes at C6-C7. There are moderate spondylitic changes and facet arthropathy noted. [facility] XR Cervical spine 4 or 5 Vie wson 10-30-2024 There is no carotid artery calcifications noted. No abnormal pre-vertebral swelling. No obvious fracture or instability. No congenital stenosis. Maintenance of normal cervical lordosis noted. Mild multi-level degenerative disc disease noted with moderate degenerative changes at C6-C7. There are moderate spondylitic changes and facet arthropathy noted. [facility] Radiology Study observation (narrative) Miguel Angel collado 36on 10-22-2024 36 Spoke to patient, no questions. [facility] 36 Atherosclerosis- she has some plaque buildup in there arteries (no treatment other than keeping blood pressure good, cholesterol levels good), possible small kidney stone on the right (punctate means that it is very small and not an issue), looks like surgical clips for a tubal ligation (those stay in) [facility] 36 ----- Message from SOO Grant CNP [...] As she saw this on mychart. [facility] Office Visiton 10-12-2024 Follow-up visit [id number] Ras Joseph Marin 1955 F Date Provider Department Center 10/12/2024 [id number] HUBBARD [facility] Family History Problem Relation Age of Onset Breast cancer Mother's Sister Substance Abuse Mother Heart disease Father Heart disease Mother Family Status - Relation Status Age at Mother's Sister Mother Alive Father Level of Service:72045 HI OFFICE/OUTPATIENT ESTABLISHED MOD [facility] 30 MIN Reason for Visit and Comments: Follow-up [450893] - Is also wanting a UA, sx's being, lower back side pain, More frequent urination, no pain when urinating. [facility] Progress Noteon 10-12-2024 Progress Note UA unremarkable. Recommend retrying the bladder retraining and using alarms to assist with bathroom breaks. If symptoms not improving would recommend following up with urology [facility] Progress Note Stable. Managed by psychiatry continue current medications [facility] Progress Note Controlled. Blood pressure 137/83, continue metoprolol 25 mg daily and lisinopril 2.5 mg daily [facility] Progress Note X-ray was negative. Has had gradual improvement. Continue home physical therapy exercises. [facility] Progress Note Poorly controlled. Recommend restarting bladder retraining, recommend using an alarm to assist with scheduled voiding. UA unremarkable for UTI. [facility] Progress Note Patient verified by last name and . [facility] Progress Note 10/12/2024 Kamila Joseph (: 1955) [...] ideas. Th (more content not included)... [facility] Urinalysis macro (dipstick) panel (U)on 10-12-2024 Bilirubin, UA Negative [facility] Blood, UA Trace [facility] Glucose, UA Negative [facility] Ketones, POC (mg/dL) Negative [facility] Leukocytes, UA Trace [facility] Nitrite, UA Negative [facility] pH, UA 6.5 [facility] Protein, UA Trace [facility] Spec Grav, UA 1.015 [facility] h Urobilinogen, UA 0.2 [facility] alth [facility] Office Visiton 09-14-2024 Follow-up visit [id number] Ras Joseph 1955 F Date Provider Department Center 09/14/2024 JIE MUSE [facility] None Family History Problem Relation Age of Onset Breast cancer Mother's Sister Substance Abuse Mother Heart disease Father Heart disease Mother Family Status - Relation Status Age at Mother's Sister Mother Alive Father Level of Service:24076 HI OFFICE/OUTPATIENT ESTABLISHED MOD [facility] 30 MIN Reason for Visit and Comments: Follow-up [837422] Parkinson's Disease [385] [facility] Progress Noteon 09-14-2024 Progress Note Department of [...] grossly intact. (more content not included)... [facility] XR Shoulder - right 2 Viewso [...] at the right acromioclavicular and glenohumeral joints. [facility] José Miguel Mitchell MD - 09/09/2024 [...] Electronically Signed Date/Time: 09/09/2024 5:46 PM EST [facility] XR Shoulder - right 2 ViewsO rdered By: José Miguel Mitchell on 09-09-2024 [facility] 29on 09-08-2024 29 Addended by: ADRIANE HUBBARD on: 09/16/2024 06:06 AM Modules accepted: Level of Service [facility] Office Visiton 09-08-2024 Follow-up visit [id number] Ras Joseph 1955 F Date Provider Department Center 09/08/2024 [id number] HUBBARD [facility] Family History Problem Relation Age of Onset Breast cancer Mother's Sister Substance Abuse Mother Heart disease Father Heart disease Mother Family Status - Relation Status Age at Mother's Sister Mother Alive Father Level of Service:25623 HI OFFICE/OUTPATIENT ESTABLISHED SF MDM 10 MIN Reason for Visit and Comments: Follow-up [259512] - Fall- states mat in the shower gave away and she fell, all on Saturday Urinary Incontinence- States that she can't make it to the bathroom when she does have to go.(Gave water for UA as she does not have to go at this time) [facility] Progress Noteon 09-08-2024 Progress Note Poorly controlled. Recommend starting bladder retraining. Reviewed and provided written instruction. Follow up in about 4 weeks. Would not recommend avoiding urinary incontinence medications d/t risks associated with them. [facility] Progress Note Obtain xray to r/o a ny fracture d/t fall. Suspect soft tissue injury and possible rotator cuff tear. Recommend rice x 1 week, then start stretches/exercises provided. If not improving in a couple weeks, would recommend formal physical therapy [facility] Progress Note Patient verified by last name and . [facility] Progress Note 09/08/2024 Kamila Joseph (: 1955) [...] person, pl (more content not included)... [facility] XR Shoulder - right 2 Viewso n 09-08-2024 Radiology Study observation (narrative) Miguel Angel collado 36on 09-07-2024 36 Prescription Request : Last medication check: 07/08/24 Last physical exam: 12/30/23 Next scheduled appointment: 12/30/24 Last date of refill on this medication 03/09/24 90 and 1 refill [facility] MR/BMS.BPon 09-07-2024 MR/BMS.BP [facility] [address] [place] [address], [place] [address] OFFICE VISIT Date of Service: 09/07/24 MR#: [id number] Acct: [id number] Name: KAMILA JOSEPH Rep #: [id number] : 1955 Provider: Dr. Andrew Cobian se, DO Age/Sex: 69/F Location: [facility].BP Status: Signed Intake Vital Signs 06/09/24 11:37 09/07/24 10:00 Height 5 ft 2 in 5 ft 2 in BP 128/81 H Blood Pressure Location Lt radial Position Sitting Respiration 16 Pulse 59 L Pulse Source Monitor BP Intake Visit Reasons: 2-3MFU Accompanied by: Daughter [facility] Allergy (Mild, Verified 09/07/24 10:00) [...] you fallen in the past year?: Yes [facility] Medical History (Updated 06/09/24 @ 12:40 by [...] and grocery shopping despite having moved to [place]. Reports that she has been just existing. [...] linear, logic (more content not included)... Normal [facility] 36on 09-03-2024 36 Reviewed chart. Refi ll appropriate. RX sent. Normal [facility] 36 Prescription Request : Last medication check: 07/08/24 Last physical exam: 12/30/23 Next scheduled appointment: 12/30/24 Last date of refill on this medication 02/10/24 Normal [facility] Urinalysis macro (dipstick) panel (U)on 07-08-2024 Bilirubin, UA Negative [facility] h Blood, UA Trace [facility] Glucose, UA Negative [facility] Interpretation and review of laboratory results Abnormal [facility] Ketones, POC (mg/dL) Negative [facility] Leukocytes, UA Moderate [facility] Nitrite, UA Negative [facility] pH, UA 8.5 [facility] Protein, UA Negative [facility] Spec Grav, UA 1.005 [facility] Urobilinogen, UA 0.2 Miguel Angel collado [facility] Urinalysis macro (dipstick) panel (U)on 03-23-2024 Bilirubin, UA Negative [facility] h Blood, UA Trace [facility] Glucose, UA Negative [facility] Ketones, POC (mg/dL) Negative [facility] Leukocytes, UA Trace [facility] th Nitrite, UA Negative [facility] pH, UA 7.0 [facility] Protein, UA Negative [facility] Spec Grav, UA 1.010 [facility] h Urobilinogen, UA 0.2 [facility] Gene collado [facility] Radiology Study observation (narrative) Jose Gene collado Cobalamin (Vitamin B12) [Mas s/Vol]on 08-23-2023 Interpretation and review of laboratory results Normal [facility] Laboratory - Chemistry and C hemistry - challengeon 08-23-2023 Cobalamin (Vitamin B12) [Mass/Vol] 467 pg/mL 239 - 931 pg/mL [facility] TSHon 08-23-2023 TSH Qn 3.950 m[IU]/L [facility] TSH Qnon 08-23-2023 Interpretation and review of laboratory results Normal [facility] Vital Signs Date Time Vital Sign Value Performing Clinician Facility 03-08-2025 10:01-0400 Body mass index (BMI) [Ratio] 33.4 kg/m2 Adriane Hubbard [employer] Work Phone: [facility] 03-08-2025 10:01-0400 Body temperature 98.91 [degF] Adriane Hubbard [employer] Work Phone: [facility] 03-08-2025 10:01-0400 Body weight 82.83 kg Adriane Hubbard [employer] Work Phone: [facility] 03-08-2025 10:01-0400 Diastolic blood pressure 72 mm[Hg] Adriane Hubbard [employer] Work Phone: [facility] 03-08-2025 10:01-0400 Heart rate 82 /min Adrianeslime Valdezenthal [employer] Work Phone: [facility] 03-08-2025 10:01-0400 Respiratory rate 18 /min Adriane Bridenthal [employer] Work Phone: [facility] 03-08-2025 10:01-0400 SaO2% (BldA) [Mass fraction] 96 % Adriane Bridenthal [employer] Work Phone: [facility] 03-08-2025 10:01-0400 Systolic blood pressure 117 mm[Hg] Adriane Bridenthal [employer] Work Phone: [facility] 02-10-2025 08:29-0400 Body height 157.5 cm Jie Miranda MD Work Phone: [facility] 02-10-2025 08:29-0400 Body mass index (BMI) [Ratio] 33.29 kg/m2 Jie Miranda MD Work Phone: [facility] 02-10-2025 08:29-0400 Body weight 82.56 kg Jie Miranda MD Work Phone: [facility] 02-10-2025 08:29-0400 Diastolic blood pressure 78 mm[Hg] Jie Miranda MD Work Phone: [facility] 02-10-2025 08:29-0400 Systolic blood pressure 124 mm[Hg] Jie Miranda MD Work Phone: [facility] 01-01-2025 11:26-0400 Body height 157.5 cm Jie Miranda MD Work Phone: [facility] 01-01-2025 11:26-0400 Body mass index (BMI) [Ratio] 33.29 kg/m2 Jie Miranda MD Work Phone: [facility] 01-01-2025 11:26-0400 Body weight 82.56 kg Jie Miranda MD Work Phone: [facility] 01-01-2025 11:26-0400 Diastolic blood pressure 68 mm[Hg] Jie Miranda MD Work Phone: [facility] 01-01-2025 11:26-0400 Systolic blood pressure 120 mm[Hg] Jie Miranda MD Work Phone: [facility] 12-28-2024 14:34-0400 Body height 157.5 cm Adriane Bridenthal [employer] Work Phone: [facility] 12-28-2024 14:34-0400 Body mass index (BMI) [Ratio] 33.29 kg/m2 Adriane Bridenthal [employer] Work Phone: [facility] 12-28-2024 14:34-0400 Body weight 82.56 kg Adriane Bridenthal [employer] Work Phone: [facility] 12-10-2024 13:27-0500 Body height 157.5 cm Tristin Wilcox MD Work Phone: [facility] 12-10-2024 13:27-0500 Body mass index (BMI) [Ratio] 33.29 kg/m2 Tristin Wilcox MD Work Phone: [facility] 12-10-2024 13:27-0500 Body weight 82.56 kg Tristin Wilcox MD Work Phone: [facility] 12-08-2024 15:06-0500 Body height 157.5 cm Peng Mann MD Work Phone: [facility] 12-08-2024 15:06-0500 Body mass index (BMI) [Ratio] 33.29 kg/m2 Peng Mann MD Work Phone: [facility] 12-08-2024 15:06-0500 Body weight 82.56 kg Peng Mann MD Work Phone: [facility] 12-08-2024 08:40-0500 Body height 157.5 cm Adriane Bridenthal [employer] Work Phone: [facility] 12-08-2024 08:40-0500 Body mass index (BMI) [Ratio] 33.32 kg/m2 Adriane Bridenthal [employer] Work Phone: [facility] 12-08-2024 08:40-0500 Body temperature 98.29 [degF] Adriane Bridenthal [employer] Work Phone: [facility] 12-08-2024 08:40-0500 Body weight 82.64 kg Adriane Bridenthal [employer] Work Phone: [facility] 12-08-2024 08:40-0500 Diastolic blood pressure 81 mm[Hg] Adriane Bridenthal [employer] Work Phone: [facility] 12-08-2024 08:40-0500 Heart rate 58 /min Adriane Bridenthal [employer] Work Phone: [facility] 12-08-2024 08:40-0500 Respiratory rate 16 /min Adriane Bridenthal [employer] Work Phone: [facility] 12-08-2024 08:40-0500 SaO2% (BldA) [Mass fraction] 94 % Adriane Bridenthal [employer] Work Phone: [facility] 12-08-2024 08:40-0500 Systolic blood pressure 137 mm[Hg] Adriane Courtneyenthal [employer] Work Phone: [facility] 12-07-2024 15:03-0500 Body height 157.5 cm Jie Miranda MD Work Phone: [facility] 12-07-2024 15:03-0500 Body mass index (BMI) [Ratio] 32.74 kg/m2 Jie Miranda MD Work Phone: [facility] 12-07-2024 15:03-0500 Body weight 81.19 kg Jie Miranda MD Work Phone: [facility] 12-07-2024 15:03-0500 Diastolic blood pressure 70 mm[Hg] Jie Miranda MD Work Phone: [facility] 12-07-2024 15:03-0500 Systolic blood pressure 116 mm[Hg] Jie Miranda MD Work Phone: [facility] 12-05-2024 21:34-0500 Diastolic blood pressure 59 mm[Hg] Bud [facility]ombash DO [facility] 12-05-2024 21:34-0500 Heart rate 70 /min Bud Gombash DO [facility] 12-05-2024 21:34-0500 Respiratory rate 18 /min Bud Gombash DO Work Phone: [facility] 12-05-2024 21:34-0500 SaO2% (BldA) [Mass fraction] 92 % Bud Gombash DO [facility] 12-05-2024 21:34-0500 Systolic blood pressure 118 mm[Hg] Bud Gombash DO [facility] 12-05-2024 20:31-0500 Body height 157.5 cm Bud Gombash DO Work Phone: [facility] 12-05-2024 20:31-0500 Body mass index (BMI) [Ratio] 32.74 kg/m2 Bud Gombash DO Work [facility] 12-05-2024 20:31-0500 Body temperature 98.49 [degF] Bud Gombash DO Work Phone: [facility] 12-05-2024 20:31-0500 Body weight 81.19 kg Bud Gombash DO Work Phone: [facility] 10-30-2024 12:56-0500 Body height 157.5 cm Anjel Larsen [employer] Work Phone: [facility] 10-30-2024 12:56-0500 Body mass index (BMI) [Ratio] 32.74 kg/m2 Anjel Larsen [employer] Work Phone: [facility] 10-30-2024 12:56-0500 Body weight 81.19 kg Anjel Larsen [employer] Work Phone: [facility] 10-12-2024 13:35-0500 Body height 157.5 cm Adrianeslime Valdezenthal [employer] Work Phone: [facility] 10-12-2024 13:35-0500 Body mass index (BMI) [Ratio] 32.89 kg/m2 Adriane Bridenthal [employer] Work Phone: [facility] 10-12-2024 13:35-0500 Body weight 81.56 kg Adriane Courtneyenthal [employer] Work Phone: [facility] 10-12-2024 13:35-0500 Diastolic blood pressure 83 mm[Hg] Adriane Bridenthal [employer] Work Phone: [facility] 10-12-2024 13:35-0500 Heart rate 61 /min Adriane Bridenthal [employer] Work Phone: [facility] 10-12-2024 13:35-0500 SaO2% (BldA) [Mass fraction] 98 % Adriane Bridenthal [employer] Work Phone: [facility] 10-12-2024 13:35-0500 Systolic blood pressure 137 mm[Hg] Adriane Bridenthal [employer] Work Phone: [facility] 09-14-2024 15:10-0500 Body height 157.5 cm Jie Miranda MD Work Phone: [facility] 09-14-2024 15:10-0500 Body mass index (BMI) [Ratio] 34.57 kg/m2 Jie iMranda MD Work Phone: [facility] 09-14-2024 15:10-0500 Body temperature 97.3 [degF] Jie Miranda MD Work Phone: [facility] 09-14-2024 15:10-0500 Body weight 85.73 kg Jie Miranda MD Work Phone: [facility] 09-14-2024 15:10-0500 Diastolic blood pressure 66 mm[Hg] Jie Miranda MD Work Phone: [facility] 09-14-2024 15:10-0500 Heart rate 62 /min Jie Miranda MD Work Phone: [facility] 09-14-2024 15:10-0500 Systolic blood pressure 122 mm[Hg] Jie Miranda MD Work Phone: [facility] 09-08-2024 10:01-0500 Body height 157.5 cm Adriane Bridenthal [employer] Work Phone: [facility] 09-08-2024 10:01-0500 Body mass index (BMI) [Ratio] 34.64 kg/m2 Adriane Bridenthal [employer] Work Phone: [facility] 09-08-2024 10:01-0500 Body weight 85.91 kg Adriane Bridenthal [employer] Work Phone: [facility] 09-08-2024 10:01-0500 Diastolic blood pressure 71 mm[Hg] Adriane Bridenthal [employer] Work Phone: [facility] 09-08-2024 10:01-0500 Heart rate 59 /min Adriane Bridenthal [employer] Work Phone: [facility] 09-08-2024 10:01-0500 SaO2% (BldA) [Mass fraction] 93 % Adriane Bridenthal [employer] Work Phone: [facility] 09-08-2024 10:01-0500 Systolic blood pressure 139 mm[Hg] Adriane Bridenthal [employer] Work Phone: [facility] 08-11-2024 09:55-0400 Body temperature 97.9 [degF] Mason Haynes MD Work Phone: [facility] 08-11-2024 09:55-0400 Diastolic blood pressure 69 mm[Hg] Mason Haynes MD Work Phone: [facility] 08-11-2024 09:55-0400 Heart rate 68 /min Mason Haynes MD Work Phone: [facility] 08-11-2024 09:55-0400 Respiratory rate 16 /min Mason Haynes MD Work Phone: [facility] 08-11-2024 09:55-0400 SaO2% (BldA) [Mass fraction] 97 % Mason Haynes MD Work Phone: [facility] 08-11-2024 09:55-0400 Systolic blood pressure 139 mm[Hg] Mason Haynes MD Work Phone: [facility] 08-11-2024 08:19-0400 Body mass index (BMI) [Ratio] 33.84 kg/m2 Mason Haynes MD Work Phone: [facility] 08-11-2024 08:19-0400 Body weight 83.92 kg Mason Haynes MD Work Phone: [facility] 07-08-2024 11:13-0400 Body mass index (BMI) [Ratio] 33.47 kg/m2 Adriane Jacklynal [employer] Work Phone: [facility] 07-08-2024 11:13-0400 Body temperature 98.6 [degF] Adriane Courtneyenthal [employer] Work Phone: [facility] 07-08-2024 11:13-0400 Body weight 83.01 kg Adriane Jacklynal [employer] Work Phone: [facility] 07-08-2024 11:13-0400 Diastolic blood pressure 76 mm[Hg] Adriane Courtneyenthal [employer] Work Phone: [facility] 07-08-2024 11:13-0400 Heart rate 58 /min Adriane Bridenthal [employer] Work Phone: [facility] 07-08-2024 11:13-0400 Respiratory rate 14 /min Adriane Bridenthal [employer] Work Phone: [facility] 07-08-2024 11:13-0400 SaO2% (BldA) [Mass fraction] 97 % Adriane Bridenthal [employer] Work Phone: [facility] 07-08-2024 11:13-0400 Systolic blood pressure 132 mm[Hg] Adriane Bridenthal [employer] Work Phone: [facility] 07-02-2024 14:01-0400 Body height 157.5 cm Jie Miranda MD Work Phone: [facility] 07-02-2024 14:01-0400 Body mass index (BMI) [Ratio] 30.73 kg/m2 Jie Miranda MD Work Phone: [facility] 07-02-2024 14:01-0400 Body weight 76.2 kg Jie Miranda MD Work Phone: [facility] 07-02-2024 14:01-0400 Diastolic blood pressure 68 mm[Hg] Jie Miranda MD Work Phone: [facility] 07-02-2024 14:01-0400 Heart rate 60 /min Jie Miranda MD Work Phone: [facility] 07-02-2024 14:01-0400 Systolic blood pressure 124 mm[Hg] Jie Miranda MD Work Phone: [facility] 04-02-2024 13:43-0400 Body mass index (BMI) [Ratio] 30.73 kg/m2 Violet Castellanos [employer] Work Phone: [facility] 04-02-2024 13:43-0400 Body temperature 97.9 [degF] Violet Castellanos [employer] Work Phone: [facility] 04-02-2024 13:43-0400 Body weight 76.2 kg Violet Castellanos [employer] Work Phone: [facility] 04-02-2024 13:43-0400 Diastolic blood pressure 73 mm[Hg] Violet Castellanos [employer] Work Phone: [facility] 04-02-2024 13:43-0400 Heart rate 66 /min Violet Castellanos [employer] Work Phone: [facility] 04-02-2024 13:43-0400 Systolic blood pressure 127 mm[Hg] Violet Castellanos [employer] Work Phone: [facility] 03-23-2024 13:52-0400 Body height 157.5 cm Adriane Valdezenthal [employer] Work Phone: [facility] 03-23-2024 13:52-0400 Body mass index (BMI) [Ratio] 30.62 kg/m2 Adriane Bridenthal [employer] Work Phone: [facility] 03-23-2024 13:52-0400 Body weight 75.93 kg Adrianeslime Valdezenthal [employer] Work Phone: [facility] 03-23-2024 13:52-0400 Diastolic blood pressure 63 mm[Hg] Adriane Courtneyenthal [employer] Work Phone: [facility] 03-23-2024 13:52-0400 Heart rate 55 /min Adriane Bridenthal [employer] Work Phone: [facility] 03-23-2024 13:52-0400 SaO2% (BldA) [Mass fraction] 99 % Adriane Bridenthal [employer] Work Phone: [facility] 03-23-2024 13:52-0400 Systolic blood pressure 126 mm[Hg] Adriane Bridenthal [employer] Work Phone: [facility] 02-10-2024 11:11-0400 Body height 157.5 cm Adriane Bridenthal [employer] Work Phone: [facility] 02-10-2024 11:11-0400 Body mass index (BMI) [Ratio] 29.78 kg/m2 Adriane Bridenthal [employer] Work Phone: [facility] 02-10-2024 11:11-0400 Body temperature 97.81 [degF] Adriane Bridenthal [employer] Work Phone: [facility] 02-10-2024 11:11-0400 Body weight 73.85 kg Adriane Bridenthal [employer] Work Phone: [facility] 02-10-2024 11:11-0400 Diastolic blood pressure 58 mm[Hg] Adriane Bridenthal [employer] Work Phone: [facility] 02-10-2024 11:11-0400 Heart rate 71 /min Adriane Bridenthal [employer] Work Phone: [facility] 02-10-2024 11:11-0400 SaO2% (BldA) [Mass fraction] 97 % Dariane Bridenthal [employer] Work Phone: [facility] 02-10-2024 11:11-0400 Systolic blood pressure 134 mm[Hg] Adriane Bridenthal [employer] Work Phone: [facility] 12-30-2023 11:11-0400 Body height 160 cm Adriane Bridenthal [employer] Work Phone: [facility] 12-30-2023 11:11-0400 Body mass index (BMI) [Ratio] 27.42 kg/m2 Adriane Bridenthal [employer] Work Phone: [facility] 12-30-2023 11:11-0400 Body temperature 98.01 [degF] Adriane Bridenthal [employer] Work Phone: [facility] 12-30-2023 11:11-0400 Body weight 70.22 kg Adriane Villasenoral [employer] Work Phone: [facility] 12-30-2023 11:11-0400 Diastolic blood pressure 76 mm[Hg] Adriane Valdezenthal [employer] Work Phone: [facility] 12-30-2023 11:11-0400 Heart rate 71 /min Adriane Valdezenthal [employer] Work Phone: [facility] 12-30-2023 11:11-0400 SaO2% (BldA) [Mass fraction] 97 % Adriane Valdezenthal [employer] Work Phone: [facility] 12-30-2023 11:11-0400 Systolic blood pressure 119 mm[Hg] Adriane Villasenoral [employer] Work Phone: [facility] 12-06-2023 13:41-0500 Body height 160.7 cm Jie Miranda MD Work Phone: [facility] 12-06-2023 13:41-0500 Body mass index (BMI) [Ratio] 26.71 kg/m2 Jie Miranda MD Work Phone: [facility] 12-06-2023 13:41-0500 Body temperature 97.2 [degF] Jie Miranda MD Work Phone: [facility] 12-06-2023 13:41-0500 Body weight 68.95 kg Jie Miranda MD Work Phone: [facility] 12-06-2023 13:41-0500 Diastolic blood pressure 74 mm[Hg] Jie Miranda MD Work Phone: [facility] 12-06-2023 13:41-0500 Heart rate 65 /min Jie Miranda MD Work Phone: [facility] 12-06-2023 13:41-0500 Systolic blood pressure 133 mm[Hg] Jie Miranda MD Work Phone: [facility] 11-14-2023 14:34-0500 Body mass index (BMI) [Ratio] 26.82 kg/m2 Adriane Bridenthal [employer] Work Phone: [facility] 11-14-2023 14:34-0500 Body temperature 98.4 [degF] Adriane Bridenthal [employer] Work Phone: [facility] 11-14-2023 14:34-0500 Body weight 69.22 kg Adriane Bridenthal [employer] Work Phone: [facility] 11-14-2023 14:34-0500 Diastolic blood pressure 53 mm[Hg] Adriane Bridenthal [employer] Work Phone: [facility] 11-14-2023 14:34-0500 Heart rate 73 /min Adriane Bridenthal [employer] Work Phone: [facility] 11-14-2023 14:34-0500 Respiratory rate 18 /min Adriane Bridenthal [employer] Work Phone: [facility] 11-14-2023 14:34-0500 SaO2% (BldA) [Mass fraction] 96 % Adriane Bridenthal [employer] Work Phone: [facility] 11-14-2023 14:34-0500 Systolic blood pressure 117 mm[Hg] Adriane Bridenthal [employer] Work Phone: [facility] 10-16-2023 13:54-0500 Body mass index (BMI) [Ratio] 27.06 kg/m2 Adriane Bridenthal [employer] Work Phone: [facility] 10-16-2023 13:54-0500 Body temperature 97.3 [degF] Adriane Bridenthal [employer] Work Phone: [facility] 10-16-2023 13:54-0500 Body weight 69.85 kg Adriane Bridenthal [employer] Work Phone: [facility] 10-16-2023 13:54-0500 Diastolic blood pressure 72 mm[Hg] Adriane Bridenthal [employer] Work Phone: [facility] 10-16-2023 13:54-0500 Heart rate 79 /min Adriane Bridenthal [employer] Work Phone: [facility] 10-16-2023 13:54-0500 Respiratory rate 20 /min Adriane Bridenthal [employer] Work Phone: [facility] 10-16-2023 13:54-0500 SaO2% (BldA) [Mass fraction] 99 % Adriane Bridenthal [employer] Work Phone: [facility] 10-16-2023 13:54-0500 Systolic blood pressure 118 mm[Hg] Adriane Bridenthal [employer] Work Phone: [facility] 09-17-2023 14:11-0500 Body mass index (BMI) [Ratio] 27.06 kg/m2 Adriane Bridenthal [employer] Work Phone: [facility] 09-17-2023 14:11-0500 Body temperature 98.6 [degF] Adriane Bridenthal [employer] Work Phone: [facility] 09-17-2023 14:11-0500 Body weight 69.85 kg Adriane Bridenthal [employer] Work Phone: [facility] 09-17-2023 14:11-0500 Diastolic blood pressure 82 mm[Hg] Adriane Bridenthal [employer] Work Phone: [facility] 09-17-2023 14:11-0500 Heart rate 106 /min Adriane Bridenthal [employer] Work Phone: [facility] 09-17-2023 14:11-0500 Respiratory rate 24 /min Adriane Bridenthal [employer] Work Phone: [facility] 09-17-2023 14:11-0500 SaO2% (BldA) [Mass fraction] 98 % Adriane Bridenthal [employer] Work Phone: [facility] 09-17-2023 14:11-0500 Systolic blood pressure 120 mm[Hg] Adriane Bridenthal [employer] Work Phone: [facility] 09-05-2023 08:14-0500 Body temperature 97.3 [degF] Jie Miranda MD Work Phone: [facility] 09-05-2023 08:14-0500 Diastolic blood pressure 69 mm[Hg] Jie Miranda MD Work Phone: [facility] 09-05-2023 08:14-0500 Heart rate 66 /min Jie Miranda MD Work Phone: [facility] 09-05-2023 08:14-0500 Systolic blood pressure 127 mm[Hg] Jie Miranda MD Work Phone: [facility] 08-19-2023 13:41-0400 Body mass index (BMI) [Ratio] 27.24 kg/m2 Adriane Bridenthal [employer] Work Phone: [facility] 08-19-2023 13:41-0400 Body temperature 97.3 [degF] Adriane Bridenthal [employer] Work Phone: [facility] 08-19-2023 13:41-0400 Body weight 70.31 kg Adriane Bridenthal [employer] Work Phone: [facility] 08-19-2023 13:41-0400 Diastolic blood pressure 50 mm[Hg] Adriane Bridenthal [employer] Work Phone: [facility] 08-19-2023 13:41-0400 Heart rate 58 /min Adriane Bridenthal [employer] Work Phone: [facility] 08-19-2023 13:41-0400 Respiratory rate 18 /min Adriane Bridenthal [employer] Work Phone: [facility] 08-19-2023 13:41-0400 SaO2% (BldA) [Mass fraction] 96 % Adriane Bridenthal [employer] Work Phone: [facility] 08-19-2023 13:41-0400 Systolic blood pressure 98 mm[Hg] Adriane Bridenthal [employer] Work Phone: [facility] 08-01-2023 11:42-0400 Body temperature 97.7 [degF] Jie Miranda MD Work Phone: [facility] 08-01-2023 11:42-0400 Diastolic blood pressure 79 mm[Hg] Jie Miranda MD Work Phone: [facility] 08-01-2023 11:42-0400 Heart rate 83 /min Jie Miranda MD Work Phone: [facility] 08-01-2023 11:42-0400 Systolic blood pressure 106 mm[Hg] Jie Miranda MD Work Phone: [facility] 07-24-2023 13:04-0400 Body mass index (BMI) [Ratio] 28.08 kg/m2 Adriane Bridenthal [employer] Work Phone: [facility] 07-24-2023 13:04-0400 Body temperature 97.5 [degF] Adriane Bridenthal [employer] Work Phone: [facility] 07-24-2023 13:04-0400 Body weight 72.48 kg Adriane Bridenthal [employer] Work Phone: [facility] 07-24-2023 13:04-0400 Diastolic blood pressure 80 mm[Hg] Adriane Bridenthal [employer] Work Phone: [facility] 07-24-2023 13:04-0400 Heart rate 82 /min Adriane Courtneyenthal [employer] Work Phone: [facility] 07-24-2023 13:04-0400 Respiratory rate 24 /min Adriane Bridenthal [employer] Work Phone: [facility] 07-24-2023 13:04-0400 SaO2% (BldA) [Mass fraction] 99 % Adriane Bridenthal [employer] Work Phone: [facility] 07-24-2023 13:04-0400 Systolic blood pressure 130 mm[Hg] Adriane Courtneyenthal [employer] Work Phone: [facility] 06-27-2023 15:24-0400 Body height 160.7 cm Juvencio Davila MD Work Phone: [facility] 06-27-2023 15:24-0400 Body mass index (BMI) [Ratio] 28.15 kg/m2 Juvencio Davila MD Work Phone: [facility] 06-27-2023 15:24-0400 Body weight 72.67 kg Juvencio Davila MD Work Phone: [employer] [facility] 06-27-2023 15:24-0400 Diastolic blood pressure 68 mm[Hg] Juvencio Davila MD Work Phone: [employer] [place] 06-27-2023 15:24-0400 Heart rate 102 /min Juvencio Davila MD Work Phone: [facility] 06-27-2023 15:24-0400 SaO2% (BldA) [Mass fraction] 98 % Juvencio Davila MD Work Phone: [employer] [facility] 06-27-2023 15:24-0400 Systolic blood pressure 114 mm[Hg] Juvencio Davila MD Work Phone: [facility] 06-27-2023 09:39-0400 Body height 160.7 cm Jie Miranda MD Work Phone: [facility] 06-27-2023 09:39-0400 Body mass index (BMI) [Ratio] 28.15 kg/m2 Jie Miranda MD Work Phone: [employer] [facility] 06-27-2023 09:39-0400 Body temperature 97.3 [degF] Jie Miranda MD Work Phone: [facility] 06-27-2023 09:39-0400 Body weight 72.67 kg Jie Miranda MD Work Phone: [facility] 06-27-2023 09:39-0400 Diastolic blood pressure 84 mm[Hg] Jie Miranda MD Work Phone: [facility] 06-27-2023 09:39-0400 Heart rate 111 /min Jie Miranda MD Work Phone: [facility] 06-27-2023 09:39-0400 Systolic blood pressure 125 mm[Hg] Jie Miranda MD Work Phone: [facility] 06-10-2023 14:54-0400 Body height 160.7 cm Juvencio Davila MD Work Phone: [employer] [place] 06-10-2023 14:54-0400 Body mass index (BMI) [Ratio] 29.45 kg/m2 Juvencio Davila MD Work Phone: [employer] [place] 06-10-2023 14:54-0400 Body weight 76.02 kg Juvencio Davila MD Work Phone: [employer] [place] 06-10-2023 14:54-0400 Diastolic blood pressure 82 mm[Hg] Juvencio Davila MD Work Phone: [employer] 06-10-2023 14:54-0400 Heart rate 94 /min Juvencio Davila MD Work Phone: [employer] 06-10-2023 14:54-0400 SaO2% (BldA) [Mass fraction] 98 % Juvencio Davila MD Work Phone: [employer] 06-10-2023 14:54-0400 Systolic blood pressure 133 mm[Hg] Juvencio Davila MD Work Phone: [facility] 05-27-2023 09:56-0400 Body height 160.7 cm Juvencio Davila MD Work Phone: [facility] 05-27-2023 09:56-0400 Body mass index (BMI) [Ratio] 29.84 kg/m2 Juvencio Davila MD Work Phone: [facility] 05-27-2023 09:56-0400 Body weight 77.02 kg Juvencio Davila MD Work Phone: [employer] [place] 05-27-2023 09:56-0400 Diastolic blood pressure 68 mm[Hg] Juvencio Davila MD Work Phone: [facility] 05-27-2023 09:56-0400 Heart rate 90 /min Juvencio Davila MD Work Phone: [facility] 05-27-2023 09:56-0400 SaO2% (BldA) [Mass fraction] 97 % Juvencio Davila MD Work Phone: [facility] 05-27-2023 09:56-0400 Systolic blood pressure 100 mm[Hg] Juvencio Davila MD Work Phone: [facility] 05-08-2023 10:55-0400 Body mass index (BMI) [Ratio] 29.84 kg/m2 Adriane Bridenthal [employer] Work Phone: [facility] 05-08-2023 10:55-0400 Body temperature 98.01 [degF] Adriane Bridenthal [employer] Work Phone: [employer] [place] 05-08-2023 10:55-0400 Body weight 77.02 kg Adriane Bridenthal [employer] Work Phone: [facility] 05-08-2023 10:55-0400 Diastolic blood pressure 80 mm[Hg] Adriane Bridenthal [employer] Work Phone: [employer] [place] 05-08-2023 10:55-0400 Heart rate 99 /min Adriane Bridenthal [employer] Work Phone: [facility] 05-08-2023 10:55-0400 Respiratory rate 24 /min Adriane Bridenthal [employer] Work Phone: [facility] 05-08-2023 10:55-0400 SaO2% (BldA) [Mass fraction] 99 % Adriane Bridenthal [employer] Work Phone: [facility] 05-08-2023 10:55-0400 Systolic blood pressure 125 mm[Hg] Adriane Bridenthal [employer] Work Phone: [facility] 04-24-2023 13:08-0400 Body mass index (BMI) [Ratio] 30.65 kg/m2 Juvencio Davila MD Work Phone: [facility] 04-24-2023 13:08-0400 Body weight 79.11 kg Juvencio Davila MD Work Phone: [facility] 04-24-2023 13:08-0400 Diastolic blood pressure 78 mm[Hg] Juvencio Davila MD Work Phone: [facility] 04-24-2023 13:08-0400 Heart rate 79 /min Juvencio Davila MD Work Phone: [facility] 04-24-2023 13:08-0400 Respiratory rate 16 /min Juvencio Davila MD Work Phone: [facility] 04-24-2023 13:08-0400 SaO2% (BldA) [Mass fraction] 96 % Juvencio Davila MD Work Phone: [facility] 04-24-2023 13:08-0400 Systolic blood pressure 122 mm[Hg] Juvencio Davila MD Work Phone: [facility] 03-26-2023 13:28-0400 Body height 160.7 cm Juvencio Davila MD Work Phone: [facility] 03-26-2023 13:28-0400 Body mass index (BMI) [Ratio] 31.49 kg/m2 Juvencio Davila MD Work Phone: [facility] 03-26-2023 13:28-0400 Body weight 81.28 kg Juvencio Davila MD Work Phone: [facility] 03-26-2023 13:28-0400 Diastolic blood pressure 64 mm[Hg] Juvencio Davila MD Work Phone: [facility] 03-26-2023 13:28-0400 Heart rate 76 /min Juvencio Davila MD Work Phone: [facility] 03-26-2023 13:28-0400 SaO2% (BldA) [Mass fraction] 96 % Juvencio Davila MD Work Phone: [facility] 03-26-2023 13:28-0400 Systolic blood pressure 119 mm[Hg] Juvencio Davila MD Work Phone: [facility] 01-03-2023 11:32-0400 Body weight 88.[address] Juvencio Davila Work Phone: [facility] 01-03-2023 11:32-0400 Diastolic blood pressure 75 mm[Hg] Dr. Juvencio Davila Work Phone: [facility] 01-03-2023 11:32-0400 Heart rate 93 /min Dr. Juvencio Davila Work Phone: [facility] 01-03-2023 11:32-0400 Respiratory rate 18 /min Dr. Jvuencio Davila Work Phone: [facility] 01-03-2023 11:32-0400 Systolic blood pressure 125 mm[Hg] Dr. Juvencio Davila Work Phone: [facility] 01-03-2023 10:32-0400 Body height 157.[address] Juvencio Davila Work Phone: [facility] 10-29-2022 14:30-0500 Body height 160.7 cm Juvencio Davila MD Work Phone: [facility] 10-29-2022 14:30-0500 Body mass index (BMI) [Ratio] 37.08 kg/m2 Juvencio Davila MD Work Phone: [facility] 10-29-2022 14:30-0500 Body weight 95.71 kg Juvencio Davila MD Work Phone: [facility] 10-29-2022 14:30-0500 Diastolic blood pressure 72 mm[Hg] Juvencio Davila MD Work Phone: [facility] 10-29-2022 14:30-0500 Heart rate 82 /min Juvencio Davila MD Work Phone: [facility] 10-29-2022 14:30-0500 Systolic blood pressure 135 mm[Hg] Juvencio Davila MD Work Phone: [facility] 12-04-2021 14:21-0500 Body height 157.[address] Juvencio Davila Work Phone: [facility] Work Phone: 12-04-2021 14:21-0500 Body mass index (BMI) [Ratio] 40.6 kg/m2 Dr. Juvencio Davila Work Phone: [facility] Work Phone: 12-04-2021 14:21-0500 Body weight 100.[address] Juvencio Davila Work Phone: [facility] Work Phone: 12-04-2021 14:21-0500 Diastolic blood pressure 78 mm[Hg] Dr. Juvencio Davila Work Phone: [facility] Work Phone: 12-04-2021 14:21-0500 Heart rate 77 /min Dr. Juvencio Davila Work Phone: [facility] Work Phone: 12-04-2021 14:21-0500 Respiratory rate 18 /min Dr. Juvencio Davila Work Phone: [facility] Work Phone: 12-04-2021 14:21-0500 Systolic blood pressure 138 mm[Hg] Dr. Juvencio Davila Work Phone: [facility] Work Phone: Encounters Encounter Date Encounter Type Care Provider Facility Start: 08-25-2025 End: 08-25-2025 Orders Only Juvencio Davila MD Work Phone: [facility] Start: 08-23-2025 End: 08-23-2025 ambulatory Andrew Argueta Facility:[facility] Start: 08-20-2025 End: 08-20-2025 ambulatory Talya Smith Facility:[facility] Start: 08-15-2025 End: 08-15-2025 Emergency department patient visit Reid Cambridge Facility:[facility] Start: 08-09-2025 End: 08-09-2025 Refill Violet Castellanos [employer] Work Phone: [facility] Comment on above: Dyskinesia Start: 07-22-2025 End: 07-22-2025 Subsequent hospital visit by physician Peng Mann MD Work Phone: [facility] Comment on above: Subcutaneous mass of back Start: 07-22-2025 End: 07-22-2025 ambulatory [facility] Start: 06-24-2025 End: 06-24-2025 Refill Shyla Bustillo [employer] Work Phone: [facility] Comment on above: Hyperlipidemia LDL g oal <100 Start: 06-07-2025 End: 06-07-2025 ambulatory [facility] Start: 06-07-2025 End: 06-07-2025 Subsequent hospital visit by physician Bolivar Linder NP Work Phone: [facility] Comment on above: Cervical myelopathy (HCC) Start: 05-06-2025 End: 05-07-2025 Telephone encounter Jie Miranda MD Work Phone: [facility] Comment on above: Appointment Start: 05-06-2025 End: 05-06-2025 ambulatory Andrew Argueta Facility:[facility] Start: 05-03-2025 End: 05-03-2025 Refill Violet Jim [employer] Work Phone: [facility] Comment on above: Dyskinesia Start: 03-09-2025 End: 03-09-2025 ambulatory Andrew Argueta Facility:[facility] Start: 03-08-2025 End: 03-08-2025 Office outpatient visit 25 minutes Adriane Hubbard [employer] Work Phone: [facility] Comment on above: TERESA on CPAP (Primary Dx); Anxiety; Congestive heart failure, unspecified HF chronicity, unspecified heart failure type (HCC); Tardive dyskinesia; Mild dementia without behavioral disturbance, psychotic disturbance, mood disturbance, or anxiety, unspecified dementia type (HCC); Essential hypertension Start: 03-08-2025 End: 03-08-2025 ambulatory [facility] Start: 03-05-2025 End: 03-08-2025 Telephone encounter Jie Miranda MD Work Phone: [facility] Comment on above: Med Management (brianna tadine (Symmetrel) 100 MG tablet) Start: 03-02-2025 End: 03-02-2025 Refill Juvencio Davila MD Work Phone: [facility] Start: 02-10-2025 End: 02-10-2025 Subsequent hospital visit by physician Adriane Hubbard [employer] Work Phone: [facility] Comment on above: Abnormal mammogram Start: 02-10-2025 End: 02-10-2025 ambulatory [facility] Start: 02-10-2025 End: 02-10-2025 Office outpatient visit 15 minutes J[facility] MD [facility] Comment on above: Tardive dyskinesia ( Primary Dx) Start: 02-10-2025 End: 02-10-2025 ambulatory [facility] Start: 02-10-2025 End: 02-10-2025 [facility] Start: 01-06-2025 End: 01-06-2025 Refill Jie Miranda MD Work Phone: [facility] Comment on above: Dyskinesia Start: 01-01-2025 End: 01-01-2025 Office outpatient visit 25 minutes Jie Miranda MD Work Phone: [facility] Comment on above: Neuroleptic-induced tardive dyskinesia (Primary Dx) Start: 01-01-2025 End: 01-01-2025 [facility] Start: 12-29-2024 End: 12-29-2024 Telephone encounter Adriane Hubbard APRN - [employer] Work Phone: [facility] Comment on above: Results Start: 12-28-2024 End: 12-28-2024 Subsequent hospital visit by physician Adriane Hubbard APRN - [employer] Work Phone: [facility] Comment on above: Encounter for screen ing mammogram for malignant neoplasm of breast Start: 12-28-2024 End: 12-28-2024 [facility] Start: 12-22-2024 End: 12-22-2024 Telephone encounter Adriane Hubbard [employer] Work Phone: [facility] Comment on above: Results Results; Medication Problem (Calcium Carb-Cholecalciferol dose change request) Start: 12-21-2024 End: 12-21-2024 Subsequent hospital visit by physician Adriane Hubbard APRN - [employer] Work Phone: [facility]strada Comment on above: Cardiomyopathy, unsp ecified type (HCC); Abnormal electrocardiogram (ECG) (EKG) Post-menopausal Start: 12-21-2024 End: 12-21-2024 ambulatory [facility] Start: 12-10-2024 End: 12-10-2024 Subsequent hospital visit by physician Tristin Wilcox MD Work Phone: [facility] Comment on above: Right arm pain Start: 12-10-2024 End: 12-10-2024 Office outpatient new 45 minutes Tristin Wilcox MD Work Phone: [facility] [place] Comment on above: Right arm pain (Prim orion Dx); Closed nondisplaced fracture of head of right radius, initial encounter Start: 12-10-2024 End: 12-10-2024 ambulatory [facility] Start: 12-08-2024 End: 12-08-2024 Office outpatient visit 25 minutes Peng Mann MD Work Phone: [facility] [place] Comment on above: Cervical myelopathy (HCC) (Primary Dx); Neck pain; Cervical spondylosis; Cervical radiculopathy Start: 12-08-2024 End: 12-08-2024 ambulatory [facility] Start: 12-08-2024 End: 12-08-2024 ambulatory [facility] Facility:[facility] Start: 12-08-2024 End: 12-08-2024 Assay of hemosiderin, quant Adriane Hubbard [employer] Work Phone: [facility] Start: 12-08-2024 End: 12-08-2024 Patient encounter procedure Adriane Courtneyenthal [employer] Work Phone: [facility] Comment on above: Routine general medi [...] dyskinesia Start: 12-08-2024 End: 12-08-2024 ambulatory [facility] Start: 12-08-2024 End: 12-08-2024 Encounter for general adult medical examination without abnormal findings ADRIANE HUBBARD [facility] Start: 12-07-2024 End: 12-07-2024 ambulatory [facility] Start: 12-07-2024 End: 12-07-2024 Office outpatient visit 25 minutes Jie Miranda MD Work Phone: [facility] Comment on above: Closed fracture of r ight upper extremity, initial encounter (Primary Dx); Tardive dyskinesia Start: 12-05-2024 End: 12-05-2024 Emergency department patient visit Bud Malik DO Work Phone: [facility] Comment on above: Closed nondisplaced fracture of head of right radius, initial encounter (Primary Dx) Start: 12-01-2024 End: 12-01-2024 Refill Anjel Larsen APRN - [employer] Work Phone: [facility] [place] Start: 11-02-2024 End: 11-02-2024 ambulatory [facility] Start: 11-02-2024 End: 11-02-2024 Subsequent hospital visit by physician Anjel Larsen APRN - [employer] Work Phone: [facility] Comment on above: Neck pain; Cervical myelopathy (HCC); DDD (degenerative disc disease), cervical; Cervical spondylosis Start: 10-30-2024 End: 10-30-2024 Office outpatient new 45 minutes Anjel Larsen APRN - [employer] Work Phone: [facility] [place] Comment on above: Neck pain (Primary D x); Cervical myelopathy (HCC); DDD (degenerative disc disease), cervical; Cervical spondylosis; Lumbar pain; Degeneration of intervertebral disc of lumbar region with discogenic back pain; Lumbar spondylosis Start: 10-30-2024 End: 10-30-2024 [facility] Start: 10-16-2024 End: 10-16-2024 Subsequent hospital visit by physician Juvencio Davila MD Work Phone: [facility] Comment on above: Chronic midline low back pain without sciatica Start: 10-16-2024 End: 10-16-2024 [facility] Start: 10-12-2024 End: 10-12-2024 Office outpatient visit 25 minutes Adrianeglenroy Hubbard [employer] Work Phone: [facility] Comment on above: Acute pain of right shoulder (Primary Dx); Urinary tract infection symptoms; Mixed stress and urge urinary incontinence; Chronic midline low back pain without sciatica; Essential hypertension; Major depressive disorder with single episode, in partial remission (HCC) Start: 10-12-2024 End: 10-12-2024 [facility] Start: 09-14-2024 End: 09-14-2024 Office outpatient visit 25 minutes Jie Miranda MD Work Phone: [facility] Comment on above: Dyskinesia (Primary Dx); Other drug-induced secondary parkinsonism (HCC) Start: 09-14-2024 End: 09-14-2024 [facility] Start: 09-08-2024 End: 09-08-2024 Subsequent hospital visit by physician Adriane Hubbard [employer] Work Phone: [facility] Comment on above: Acute pain of right shoulder Start: 09-08-2024 End: 09-08-2024 [facility] Start: 09-08-2024 End: 09-08-2024 Office outpatient visit 10 minutes Adriane Hubbard [employer] Work Phone: [facility] Comment on above: Acute pain of right shoulder (Primary Dx); Mixed stress and urge urinary incontinence Start: 09-08-2024 End: 09-08-2024 Office outpatient visit 25 minutes Adriane Magdaleno [employer] Work Phone: [facility] Comment on above: Acute pain of right shoulder (Primary Dx); Mixed stress and urge urinary incontinence Start: 09-08-2024 End: 09-08-2024 ambulatory [facility] Start: 09-07-2024 End: 09-07-2024 ambulatory [facility] Facility:[facility] Start: 09-04-2024 End: 09-07-2024 Refill Juvencio Davila MD Work Phone: [facility] Start: 09-03-2024 End: 09-03-2024 Refill Adriane Hubbard [employer] Work Phone: [facility] Start: 08-24-2024 End: 08-24-2024 Telephone encounter Mason Haynes MD Work Phone: [facility] Start: 08-11-2024 End: 08-11-2024 Subsequent hospital visit by physician Mason Haynes MD Work Phone: [facility] Comment on above: Encounter for screen ing for malignant neoplasm of colon Start: 07-28-2024 End: 07-28-2024 Telephone encounter Mason Haynes MD Work Phone: [facility] Start: 07-14-2024 End: 07-14-2024 Telephone encounter Terry Bui MD Work Phone: [facility] Comment on above: Appointment Request (The colonoscopy questionnaire was completed.) Start: 07-08-2024 End: 07-08-2024 Office outpatient visit 25 minutes Adriane Magdaleno [employer] Work Phone: [facility] Comment on above: Acute left-sided low back pain without sciatica (Primary Dx); Skin lesion; Colon cancer screening; Left flank pain; TERESA on CPAP; Anxiety; Recurrent major depressive disorder, in full remission (HCC); Essential hypertension; Hyperlipidemia LDL goal <100; Urinary tract infection symptoms Start: 07-04-2024 End: 07-06-2024 Refill Adriane Bridenthal [employer] Work Phone: [facility] Comment on above: Hyperlipidemia LDL g oal <100 Start: 07-02-2024 End: 07-02-2024 Office outpatient visit 25 minutes Jie Miranda MD Work Phone: [facility] Neurology [facility] Comment on above: Parkinson's disease without dyskinesia or fluctuating manifestations (HCC) (Primary Dx); Orofacial dyskinesia Start: 04-02-2024 End: 04-02-2024 Office outpatient visit 25 minutes Violet Jim [employer] Work Phone: [facility] Comment on above: Tardive dyskinesia ( Primary Dx); Gait disorder Start: 03-23-2024 ambulatory Laura Gould RN [facility] Clin ical Communication Start: 03-23-2024 End: 03-23-2024 Office outpatient visit 15 minutes Adriane Bridenthal [employer] Work Phone: [facility] Comment on above: Urinary tract infect ion symptoms (Primary Dx) Start: 03-23-2024 Patient encounter procedure Laura Gould RN [facility] Clinical Communication Start: 02-10-2024 Refill Juvencio Davila MD Work Phone: [facility] Start: 02-10-2024 End: 02-10-2024 Office outpatient visit 10 minutes Adriane Bridenthal [employer] Work Phone: [facility] Comment on above: TERESA on CPAP (Primary Dx) Start: 12-30-2023 End: 12-30-2023 Assay of hemosiderin, quant Adriane Bridenthal [employer] Work Phone: [facility] Start: 12-30-2023 End: 12-30-2023 Patient encounter procedure Adriane Bridenthal [employer] Work Phone: [facility] Comment on above: Routine general medi roxana examination at health care facility (Primary Dx); Hyperlipidemia LDL goal <100; Screening for deficiency anemia; Essential hypertension; Encounter for screening mammogram for malignant neoplasm of breast; Post-menopausal; Tardive dyskinesia; Weight loss; TERESA on CPAP; Recurrent major depressive disorder, in full remission (HCC); Anxiety Start: 12-09-2023 Refill Juvencio Davila MD Work Phone: [facility] Comment on above: Anxiety Start: 12-06-2023 End: 12-06-2023 Office outpatient visit 15 minutes Jie Miranda MD Work Phone: [facility] Comment on above: 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) Start: 11-14-2023 End: 11-14-2023 Office outpatient visit 25 minutes Adriane [employer] Work Phone: [facility] Comment on above: Anxiety (Primary Dx) ; Recurrent major depressive disorder, in full remission (HCC) Start: 10-16-2023 End: 10-16-2023 Office outpatient visit 25 minutes Adriane Edynal [employer] Work Phone: [facility] Comment on above: Anxiety (Primary Dx) ; Recurrent major depressive disorder, in full remission (HCC); Essential hypertension Start: 10-10-2023 End: 10-10-2023 Patient encounter procedure Juvencio Davila MD Work Phone: [facility] Comment on above: Neoplasm of uncertai n behavior of skin of lower leg (Primary Dx) Start: 09-17-2023 End: 09-17-2023 Office outpatient visit 25 minutes Adriane [employer] Work Phone: [facility] Comment on above: Anxiety (Primary Dx) ; Tardive dyskinesia; Essential hypertension; Post-menopausal; Skin lesion Start: 09-05-2023 End: 09-05-2023 Office outpatient visit 15 minutes Jie Miranda MD Work Phone: [facility] Comment on above: Tardive dyskinesia ( Primary Dx); Anxiety and depression Start: 08-27-2023 Nicol Davila MD Work Phone: [facility] Comment on above: Recurrent major depr essive disorder, in full remission (HCC) Start: 08-23-2023 End: 08-23-2023 Subsequent hospital visit by physician Jie Miranda MD Work Phone: [facility] Comment on above: Mild dementia withou t behavioral disturbance, psychotic disturbance, mood disturbance, or anxiety, unspecified dementia type (HCC) Start: 08-19-2023 End: 08-19-2023 Office outpatient visit 25 minutes AdrianeSilicon Genesisleoncioal [employer] Work Phone: [facility] Comment on above: Tardive dyskinesia ( Primary Dx); Weight loss; Hot flashes; Essential hypertension Start: 08-10-2023 Refill Juvencio Davila MD Work Phone: [facility] Start: 08-05-2023 Telephone encounter Jie mejia MD Work Phone: [facility] Comment on above: Med Management (Ingr ezza 60mg increase - [facility]. ) Start: 08-01-2023 End: 08-01-2023 Office outpatient visit 25 minutes Jie Miranda MD Work Phone: [facility] Comment on above: Mild dementia withou t behavioral disturbance, psychotic disturbance, mood disturbance, or anxiety, unspecified dementia type (HCC) (Primary Dx); Tardive dyskinesia Start: 07-24-2023 End: 07-24-2023 Office outpatient visit 15 minutes Adriane [employer] Work Phone: [facility] Comment on above: Tardive dyskinesia ( Primary Dx); Anxiety Start: 07-03-2023 ambulatory Anne-Marie Rodriguez [facility] Cl inical Communication Start: 07-03-2023 Patient encounter procedure Anne-Marie Rodriguez RN [facility] Clinical Communication Start: 07-03-2023 Telephone encounter Anne-Marie Rodriguez RN [facility] Clinical Communication Start: 07-01-2023 Telephone encounter Violet case [employer] Work Phone: [facility] Comment on above: Med Management (Glenny ent must fill with [facility] ) Start: 06-27-2023 End: 06-27-2023 Office outpatient visit 15 minutes Juvencio Davila MD Work Phone: [facility] Comment on above: Tardive dyskinesia ( Primary Dx); Anxiety Start: 06-27-2023 Refill Juvencio Davila MD Work Phone: [facility] Start: 06-27-2023 End: 06-27-2023 Office outpatient new 45 minutes Jie Miranda MD Work Phone: [facility] Comment on above: Tardive dyskinesia Start: 06-26-2023 Telephone encounter Jie mejia MD Work Phone: [facility] Comment on above: New Patient ( 3, 10:00a: Tardive Dyskinesia) Start: 06-19-2023 ambulatory Ciarra Tripp RN [facility] Clinical Communication Start: 06-19-2023 Patient encounter procedure Ciarra Tripp RN [facility] Clinical Communication Comment on above: Tardive dyskinesia ( Primary Dx) Start: 06-10-2023 End: 06-10-2023 Office outpatient visit 15 minutes Juvencio Davila MD Work Phone: [facility] Comment on above: Drug-induced movemen t disorder (Primary Dx); ETRESA on CPAP Start: 05-31-2023 Telephone encounter Juvencio Reed MD Work Phone: [facility] Comment on above: Orders (Sleep study order) Start: 05-27-2023 End: 05-27-2023 Office outpatient visit 25 minutes Juvencio Davila MD Work Phone: [facility] Comment on above: Recurrent major depr essive disorder, in full remission (HCC) (Primary Dx); Anxiety; Class 1 obesity due to excess calories without serious comorbidity with body mass index (BMI) of 30.0 to 30.9 in adult; Tardive dyskinesia Start: 05-08-2023 End: 05-08-2023 Office outpatient visit 15 minutes [employer] Work Phone: [facility] Comment on above: Tardive dyskinesia ( Primary Dx); Drug-induced movement disorder; Essential hypertension; Recurrent major depressive disorder, in full remission (HCC) Start: 05-08-2023 End: 05-08-2023 Office outpatient visit 25 minutes [employer] Work Phone: [facility] Comment on above: Tardive dyskinesia ( Primary Dx); Drug-induced movement disorder; Essential hypertension; Recurrent major depressive disorder, in full remission (HCC) Start: 04-24-2023 End: 04-24-2023 Office outpatient visit 25 minutes Juvencio Davila MD Work Phone: [facility] Comment on above: Recurrent major depr essive disorder, in full remission (HCC) (Primary Dx); Class 1 obesity due to excess calories without serious comorbidity with body mass index (BMI) of 30.0 to 30.9 in adult Start: 03-26-2023 End: 03-26-2023 Office outpatient visit 15 minutes Juvencio Davila MD Work Phone: [facility] Comment on above: Greater trochanteric bursitis of right hip (Primary Dx); Class 1 obesity due to excess calories without serious comorbidity with body mass index (BMI) of 31.0 to 31.9 in adult Start: 03-08-2023 End: 03-08-[address] Juvencio Davila Work Phone: [facility] Work Phone: Start: 03-08-2023 End: 03-08-[address] Juvencio Davila Work Phone: [facility] Start: 02-12-2023 Refill Shyla Bustillo APRN - [employer] Work Phone: [facility] Start: 01-18-2023 Non-patient / Non-visit Dr. Cam Work Phone: [facility] Start: 01-18-2023 End: 01-18-[address] Juvencio Davila Work Phone: [facility] Work Phone: Start: 01-18-2023 End: 01-18-[address] Juvencio Davila Work Phone: [facility] Start: 01-03-2023 End: 01-03-[address] Juvencio Davila Work Phone: [facility] Start: 12-30-2022 Refill Juvencio Davila MD Work Phone: [facility] Start: 12-28-2022 Refill Juvencio Davila MD Work Phone: [facility] Start: 10-29-2022 End: 10-29-2022 Patient encounter status Juvenico Davila MD Work Phone: [facility] Start: 10-29-2022 End: 10-29-2022 Periodic preventive med est patient 65yrs& older Juvencio Davila MD Work Phone: [facility] Comment on above: Well female exam wit h routine gynecological exam (Primary Dx); Essential hypertension; Obesity (BMI 35.0-39.9 without comorbidity); Prediabetes; Recurrent major depressive disorder, in full remission (HCC); Anxiety; Hyperlipidemia LDL goal <100; Screening for colon cancer Start: 01-23-2022 End: 01-23-[address] Juvencio Davila Work Phone: [facility]Outpatient [facility] Start: 12-04-2021 End: 12-04-[address] Juvencio Davila Work Phone: [facility] Start: 12-10-2018 Patient encounter procedure Juvencio Davila [facility] System Procedures Date Procedure Procedure Detail Performing Clinician Start: 02-10-2025 End: 02-10-2025 Mammography Adriane Magdaleno A PRN - [employer] Work Phone: Start: 12-28-2024 End: 12-28-2024 Screening digital breast tomosynthesis bi Adriane Bridenthal [employer] Work Phone: Start: 12-21-2024 Dxa bone density darrell dy 1/> sites axial skel Adriane Bridenthal [employer] Work Phone: Start: 12-21-2024 Echo tthrc r-t 2d w/wom-mode compl spec&colr d Adriane Bridenthal [employer] Work Phone: Start: 12-10-2024 Radex humerus minimu [...] cer vical w/o contrast matrl Anjel Larsen [employer] Work Phone: Start: 10-30-2024 Radex spine cervical 4 or 5 views Anjel Larsen [employer] Work Phone: Start: 10-12-2024 Urnls dip stick/tabl et rgnt non-auto w/o micrscp Adriane Bridenthal [employer] Work Phone: Start: 08-11-2024 Colonoscopy Mason melo MD Work Phone: Start: 07-08-2024 Urnls dip stick/tabl et rgnt non-auto w/o micrscp Adriane Bridenthal [employer] Work Phone: Start: 03-23-2024 Urnls dip stick/tabl et rgnt non-auto w/o micrscp Adriane Bridenthal [employer] Work Phone: Start: 12-30-2023 Lipid 1996 panel - S janelle or Plasma Juvencio Davila MD Work Phone: Start: 03-08-[address] Cam Work Phone: Start: 10-30-2022 Lipid 1996 panel - S janelle or Plasma Shyla Bustillo [employer] Work Phone: Start: 10-29-2022 Microscopic observat ion [Identifier] in Cervix by Cyto stain Juvencio Davila MD Work Phone: Start: 01-25-2022 Mammography Shyla vences [employer] Work Phone: Start: 01-23-2022 Screening mammography Fran Davila Work Phone: Start: 11-16-2021 Lipid 1996 panel - S janelle or Plasma Juvencio Davila MD Work Phone: Start: 10-26-2021 Microscopic observat ion [Identifier] in Cervix by Cyto stain Juvencio Davila MD Work Phone: Plan of Treatment Date Care Activity Detail Author Start: 12-08-2029 Lipid panel Lipid Panel [facility] Start: 08-11-2029 Screening for malignant neoplasm of colon [facility] Start: 12-29-2028 Lipid panel Lipid Panel [facility] Start: 10-30-2027 Lipid panel Lipid Panel [facility] Start: 02-15-2027 DTaP/Tdap/Td Vaccines (2 - Td or Tdap) DTaP/Tdap/Td Vaccines (2 - Td or Tdap) [facility] Start: 11-16-2026 Lipid panel Lipid Panel [facility] Start: 03-09-2026 End: 03-09-2026 Patient encounter procedure 03/09/2026 11:00 AM EDT Office Visit [facility] [address] [place] [address] [place] [address] BridenthalNataliaAdriane, [employer] [address] [place] [address] [facility] Start: 02-10-2026 Screening for malignant neoplasm of breast Mammogram [facility] Start: 01-07-2026 Medicare Annual Wellness (AWV) Medicare Annual Wellness (AWV) [facility] Start: 12-28-2025 Screening for malignant neoplasm of breast Mammogram [facility] Start: 12-21-2025 Echocardiography Echocardiogram [facility] Start: 12-09-2025 End: 12-09-2025 Patient encounter procedure 12/09/2025 10:20 AM EST [facility] [address] [place] [address] [place] [address] Bridenthal Adriane, [employer] [address] [place] [address] [place] [address] [facility] Start: 12-08-2025 Creatinine measurement Creatinine Level [facility] Start: 12-08-2025 Diabetes mellitus screening Diabetes Screening [facility] Start: 12-08-2025 Potassium measurement Potassium Level [facility] Start: 12-08-2025 RSV Immunization for Adults (1 - Risk 60-74 years 1-dose series) RSV Immunization for Adults (1 - Risk 60-74 years 1-dose series) [facility] Comment on above: Postponed from 2017 (Patient Refus ed) Start: 10-30-2025 Diabetes mellitus screening Diabetes Screening [facility] Start: 10-29-2025 Screening for malignant neoplasm of cervix [facility] Start: 10-12-2025 End: 10-12-2025 Patient encounter procedure 10/12/2025 10:20 AM EST Office Visit [facility] [address] [place] [address] [place] [address] Adriane Hubbard, DE[employer] [address] [place] [address] [facility] Start: 09-08-2025 Depression Monitoring Depression Monitoring [facility] Start: 06-21-2025 Influenza vaccination [facility] Start: 06-07-2025 End: 06-07-2025 Patient encounter procedure 06/07/2025 4:00 PM EDT Appointment [facility] [address] [place] [address] Bolivar Linder NP [address] [facility] [address] [place] [address] Peng Mann MD [address] [facility] [address] [place] [address] [facility] Start: 06-07-2025 End: 12-08-2025 MR Cervical spine WO contrast [facility] Work Phone: Comment on above: Expected: 06/07/2025, Expires: 6 Once for 1 Occurrenc es starting 06/07/2025 until 06/07/2025 Start: 05-06-2025 End: 05-06-2025 Patient encounter procedure 05/06/2025 2:15 PM EDT Office Visit [facility] Neurology - [address] [address] [place] [phone] Jie Miranda MD [address] [facility] [address] [place], [place] [id number] [facility] Start: 03-08-2025 End: 03-08-2025 Patient encounter procedure [facility] Start: 02-10-2025 End: 02-10-[address] [facility] Start: 02-10-2025 End: 02-10-2025 Patient encounter procedure 02/10/2025 8:30 AM EDT Office Visit [facility] [address] [place] [address] [place] [phone] Jie Miranda MD [address] [place], [place] [id number] [facility] Start: 01-28-2025 Medicare Annual Wellness (AWV) Medicare Annual Wellness (AWV) [facility] Start: 01-05-2025 Depression Monitoring Depression Monitoring [facility] Start: 01-01-2025 End: 01-01-2025 Patient encounter procedure 01/01/2025 11:30 AM EDT Office Visit [facility] [address] [place] [address] [place] [phone] Jie Miranda MD [address] [place] [address] [facility] Start: 12-30-2024 End: 12-30-2024 Patient encounter procedure [facility] Start: 12-29-2024 Creatinine measurement Creatinine Level [facility] Start: 12-29-2024 End: 07-01-2025 DBT Breast - left diagnostic Left diagnostic mammogram with tomosynthesis Imaging Routine Abnormal mammogram Expected: 12/29/2024, Expires: 07/01/2025 [facility] Work Phone: Comment on above: Expected: 12/29/2024, Expires: Start: 12-29-2024 Potassium measurement Potassium Level [facility] Start: 12-29-2024 End: 02-28-2026 US Breast - left limited Left breast US limited Imaging Routine Abnormal mammogram Expected: 12/29/2024, Expires: 02/28/2026 [facility] Comment on above: Expected: 12/29/2024, Expires: Start: 12-29-2024 End: 12-29-2024 Patient encounter procedure 12/29/2024 11:30 AM EDT Office Visit [facility] [address] [place] [phone] Tristin Wilcox MD [address] [facility] [address] [place], [place] [id number] [facility] Start: 12-28-2024 End: 12-28-2024 Patient encounter procedure 12/28/2024 3:20 PM EDT Appointment [facility] [address] [facility] [address] [place] [phone] [facility] Start: 12-28-2024 Subsequent hospital visit by physician [facility] Start: 12-21-2024 End: 12-21-2024 Patient encounter procedure [facility] Start: 12-11-2024 End: 12-11-2024 Patient encounter procedure 12/11/2024 1:00 PM EST Office Visit [facility] - [place] [address] [facility] [address] [place] [phone] Peng Mann MD [address] [facility] [address] [place], [place] [address] [facility] Sports Medicine - [place] Start: 12-10-2024 End: 12-10-2024 Patient encounter procedure 12/10/2024 1:30 PM EST Office Visit [facility] [place] [address] [place] [address] [place] [phone] Tristin Wilcox MD [address] [facility] [address] [place], [place] [id number] [facility] Start: 12-08-2024 End: 12-08-2024 Patient encounter procedure 12/08/2024 3:15 PM EST Office Visit [facility] Anastasia Childressd [address] [facility] [address] [place] [phone] Peng Mann MD [address] [facility] [address] [place], [place] [id number] [facility] [place] Start: 12-08-2024 End: 12-08-2025 CBC panel - Blood by Automated count CBC Lab Routine Screening for deficiency anemia Expected: 12/08/2024 (Approximate), Expires: 12/08/2025 [facility] Comment on above: Expected: 12/08/2024 (Approximate), Expi res: 12/08/2025 Start: 12-08-2024 End: 12-08-2025 Comprehensive metabolic 1998 panel - Serum or Plasma Comprehensive metabolic panel Lab Routine Essential hypertension Expected: 12/08/2024 (Approximate), Expires: 12/08/2025 [facility] Work Phone: Comment on above: Expected: 12/08/2024 (Approximate), Expi res: 12/08/2025 Start: 12-08-2024 End: 12-08-2025 Lipid 1996 panel - Serum or Plasma Lipid panel Lab Routine Hyperlipidemia LDL goal <100 Expected: 12/08/2024 (Approximate), Expires: 12/08/2025 [facility] Comment on above: Expected: 12/08/2024 (Approximate), Expi res: 12/08/2025 Start: 12-08-2024 End: 12-08-2026 US Heart Transthoracic Transthoracic echocardiogram (TTE) complete with contrast, bubble, strain, and 3D PRN CV Echocardiography Routine Cardiomyopathy, unspecified type (HCC) Abnormal electrocardiogram (ECG) (EKG) Expected: 12/08/2024 (Approximate), Expires: 12/08/2026 [facility] Comment on above: Expected: 12/08/2024 (Approximate), Expi res: 12/08/2026 Start: 12-08-2024 End: 12-08-2024 Patient encounter procedure 12/08/2024 8:40 AM EST Office Visit [facility] [address] [place] [address] Adriane Hubbard [employer] [address] [place] [address] [facility] Start: 12-07-2024 End: 12-07-2024 Patient encounter procedure 12/07/2024 3:00 PM EST Office Visit [facility] [address] [facility] [address] [place] [phone] Jie Miranda MD [address] [place] [address] [facility] Start: 11-16-2024 Diabetes mellitus screening Diabetes Screening [facility] Start: 11-02-2024 End: 11-02-2024 Patient encounter procedure 11/02/2024 10:00 AM EST Appointment [facility] [address] [facility] [place] [address] Anjel Larsen, [employer] [address] [facility] [address] [place] [address] [facility] Start: 10-30-2024 End: 10-30-2025 MR Cervical spine WO contrast MR cervical spine wo contrast Imaging Routine Neck pain Cervical myelopathy (HCC) DDD (degenerative disc disease), cervical Cervical spondylosis Expected: 10/30/2024, Expires: 10/30/2025 [facility] [facility] Work Phone: Comment on above: Expected: 10/30/2024, Expires: Start: 10-26-2024 Screening for malignant neoplasm of cervix [facility] Start: 10-26-2024 Screening for malignant neoplasm of colon [facility] Start: 10-12-2024 End: 10-12-2025 XR Lumbar spine Views W flexion and W extension XR lumbar spine 4-5 view Imaging Routine Chronic midline low back pain without sciatica Expected: 10/12/2024, Expires: 10/12/2025 [facility] Work Phone: Comment on above: Expected: 10/12/2024, Expires: Start: 10-12-2024 End: 10-12-2024 Patient encounter procedure 10/12/2024 1:40 PM EST Office Visit [facility] [address] [place] [address] Bridenthal, Adriane, DEPARTMENT [employer] [address] [place] [address] [facility] Start: 09-17-2024 COVID-19 Vaccine ( season) COVID-19 Vaccine ( season) [facility] Comment on above: Postponed from 06/21/2023 (Patient Refus ed) Start: 09-17-2024 Hepatitis B Vaccines (2 of 3 - 19+ 3-dose series) Hepatitis B Vaccines (2 of 3 - 19+ 3-dose series) [facility] Comment on above: Postponed from 09/24/2005 (Patient Refus ed) Start: 09-17-2024 Hepatitis C screening Hepatitis C Screening [facility] Comment on above: Postponed from 1975 (Patient Refus ed) Start: 09-17-2024 Pneumococcal Vaccine: 65+ Years (1 - PCV) Pneumococcal Vaccine: 65+ Years (1 - PCV) [facility] Comment on above: Postponed from 1963 (Patient Refus ed) Start: 09-17-2024 Pneumococcal Vaccine: 65+ Years (1 of 2 - PCV) Pneumococcal Vaccine: 65+ Years (1 of 2 - PCV) [facility] Comment on above: Postponed from 1963 (Patient Refus ed) Start: 09-17-2024 RSV Immunization aged 60 or older (1 - 1-dose 60+ series) RSV Immunization aged 60 or older (1 - 1-dose 60+ series) [facility] Comment on above: Postponed from 2017 (Patient Refus ed) Start: 09-17-2024 RSV Immunization for Adults (1 - Risk 60-74 years 1-dose series) RSV Immunization for Adults (1 - Risk 60-74 years 1-dose series) [facility] Comment on above: Postponed from 2017 (Patient Refus ed) Start: 09-14-2024 End: 09-14-2024 Patient encounter procedure 09/14/2024 3:15 PM EST Office Visit [facility] [address] [place] [address] [place] [phone] Jie Miranda MD [address] [facility] [address] [place], [place] [id number] [facility] Start: 09-08-2024 End: 09-08-2025 XR Shoulder - right 2 Views [facility] Work Phone: Comment on above: Expected: 09/08/2024, Expires: 5 Once for 1 Occurrenc es starting 09/08/2024 until 09/08/2024 Start: 09-08-2024 End: 09-08-2024 Patient encounter procedure 09/08/2024 10:00 AM EST Office Visit [facility] [address] [place] [address] [place] [address] Adriane Hubbard, SOO - [employer] [address] [place] [address] [place] [address] [facility] Start: 08-11-2024 End: 08-11-2024 Admission to same day surgery center 08/11/2024 9:00 AM EDT - 08/11/2024 9:30 AM EDT Surgery [facility] [address] [place] [phone] Mason Haynes MD [address] [place], [place] [id number] COLONOSCOPY FOR LOW RISK SCREENING [G0121] [facility] Comment on above: COLONOSCOPY FOR LOW RISK SCREENING [G012 1] Start: 08-11-2024 End: 08-11-2024 Colon ca scrn not hi rsk ind [facility] Start: 08-11-2024 Subsequent hospital visit by physician 08/11/2024 9:00 AM EDT Hospital Encounter [facility] [address] [place] [address] Mason Haynes MD [address] [place], [place] [id number] [facility] Start: 07-08-2024 End: 07-08-2025 Bacteria identified in Urine by Culture Urine culture (clean catch) Microbiology Routine Acute left-sided low back pain without sciatica Left flank pain Expected: 07/08/2024 (Approximate), Expires: 07/08/2025 [facility] Work Phone: Comment on above: Expected: 07/08/2024 (Approximate), Expi res: 07/08/2025 Start: 07-08-2024 End: 07-08-2024 Patient encounter procedure [facility] Start: 07-02-2024 End: 07-02-2024 Patient encounter procedure 07/02/2024 2:00 PM EDT Office Visit [facility] [address] [facility] [place] [address] Jie Miranda MD [address] [place], [place] [phone] [facility] Start: 07-01-2024 Depression Monitoring Depression Monitoring [facility] Start: 07-01-2024 Depresssion Monitoring Depresssion Monitoring [facility] Start: 07-01-2024 End: 07-01-2024 Patient encounter procedure 07/01/2024 11:20 AM EDT Office Visit [facility] [address] [place], [place] [phone] Adriane Hubbard, DEPARTMENT [employer] [address] [place] [address] [place] [address] [facility] Start: 06-21-2024 COVID-19 Vaccine ( season) COVID-19 Vaccine () [facility] Start: 06-21-2024 COVID-19 Vaccine () COVID-19 Vaccine () [facility] Start: 06-21-2024 Influenza vaccination [facility] Start: 05-15-2024 Creatinine measurement Creatinine Level [facility] Start: 05-15-2024 Potassium measurement Potassium Level [facility] Start: 04-19-2024 Influenza vaccination Influenza Vaccine (#1) [facility] Comment on above: Postponed from 06/21/2023 (Patient Refus ed) Start: 04-02-2024 End: 04-02-2024 Patient encounter procedure [facility] Start: 03-23-2024 End: 03-23-2025 Bacteria identified in Urine by Culture Urine culture (clean catch) Microbiology Routine Urinary tract infection symptoms Expected: 03/23/2024 (Approximate), Expires: 03/23/2025 [facility] Work Phone: Comment on above: Expected: 03/23/2024 (Approximate), Expi res: 03/23/2025 Start: 01-19-2024 Echocardiography Echocardiogram [facility] Start: 12-30-2023 End: 12-29-2024 CBC panel - Blood by Automated count CBC Lab Routine Screening for deficiency anemia Expected: 12/30/2023 (Approximate), Expires: 12/29/2024 [facility] Comment on above: Expected: 12/30/2023 (Approximate), Expi res: 12/29/2024 Start: 12-30-2023 End: 12-29-2024 Comprehensive metabolic 1998 panel - Serum or Plasma Comprehensive metabolic panel Lab Routine Essential hypertension Expected: 12/30/2023 (Approximate), Expires: 12/29/2024 [facility] Comment on above: Expected: 12/30/2023 (Approximate), Expi res: 12/29/2024 Start: 12-30-2023 End: 02-28-2025 DBT Breast - bilateral screening Bilateral screening mammogram with tomosynthesis Imaging Routine Encounter for screening mammogram for malignant neoplasm of breast Expected: 12/30/2023, Expires: 02/28/2025 [facility] Comment on above: Expected: 12/30/2023, Expires: Start: 12-30-2023 End: 12-29-2024 DXA Skeletal system.axial Views for bone density DEXA bone density axial skeleton Imaging Routine Post-menopausal Expected: 12/30/2023, Expires: 12/29/2024 [facility] Comment on above: Expected: 12/30/2023, Expires: Start: 12-30-2023 End: 12-29-2024 Lipid 1996 panel - Serum or Plasma Lipid panel Lab Routine Hyperlipidemia LDL goal <100 Expected: 12/30/2023 (Approximate), Expires: 12/29/2024 [facility] Work Phone: Comment on above: Expected: 12/30/2023 (Approximate), Expi res: 12/29/2024 Start: 12-30-2023 End: 12-30-2023 Patient encounter procedure 12/30/2023 11:20 AM EDT Office Visit [facility] [address] [place] [address] Adriane Hubbard, [employer] [address] [place], [place] [phone] [facility] Start: 12-08-2023 Depresssion Monitoring Depresssion Monitoring [facility] Start: 12-06-2023 End: 12-06-2023 Patient encounter procedure 12/06/2023 1:45 PM EST Office Visit [facility] [address] [place] [phone] Jie Miranda MD [address] [facility] [place] [address] [facility] Start: 11-24-2023 Depresssion Monitoring Depresssion Monitoring [facility] Start: 11-14-2023 End: 11-14-2023 Patient encounter procedure 11/14/2023 2:40 PM EST Office Visit [facility] [address] [place] [address] BridenthalDianca, DEPARTMENT [employer] [address] [place] [address] [facility] Start: 10-30-2023 Creatinine measurement Creatinine Level [facility] Start: 10-30-2023 Diabetes mellitus screening Diabetes Screening [facility] Start: 10-30-2023 Potassium measurement Potassium Level [facility] Start: 10-30-2023 End: 10-30-2023 Patient encounter procedure [facility] Start: 10-29-2023 Screening for malignant neoplasm of colon FIT [facility] Start: 10-25-2023 Depresssion Monitoring Depresssion Monitoring [facility] Start: 10-16-2023 End: 10-16-2023 Patient encounter procedure 10/16/2023 2:00 PM EST Office Visit [facility] [address] [place] [address] BridenthNatalia rubinecca, DEPARTMENT [employer] [address] [place] [address] [facility] Start: 10-10-2023 End: 10-10-2023 Patient encounter procedure 10/10/2023 1:30 PM EST Office Visit [facility] [address] [place] [address] Juvencio Davila MD [address] [place] [address] [facility] Start: 09-17-2023 End: 09-17-2024 DXA Skeletal system Views for bone density DEXA bone density peripheral Imaging Routine Post-menopausal Expected: 09/17/2023, Expires: 09/17/2024 [facility] Work Phone: Comment on above: Expected: 09/17/2023, Expires: Start: 09-17-2023 End: 09-17-2023 Patient encounter procedure 09/17/2023 2:00 PM EST Office Visit [facility] [address] [place] [address] [place] [address] Adriane Hubbard, DEPARTMENT [employer] [address] [place] [address] [place] [address] [facility] Start: 09-05-2023 End: 09-05-2023 Patient encounter procedure 09/05/2023 8:15 AM EST Office Visit [facility] [address] [facility] [address] [facility] [place] [phone] Jie Miranda MD [address] [place] [address] [facility] Start: 08-23-2023 End: 08-23-2023 Patient encounter procedure 08/23/2023 7:45 AM EDT Appointment [facility] [address] [place] [phone] Jie Miranda MD [address] [facility] [place] [address] [facility] [address] Start: 08-23-2023 Subsequent hospital visit by physician 08/23/2023 7:45 AM EDT Hospital Encounter [facility] [address] [place] [phone] Jie Miranda MD [address] [facility] [place] [address] [facility] [address] Start: 08-19-2023 End: 08-19-2024 Thyrotropin [Units/volume] in Serum or Plasma TSH Lab Routine Weight loss Hot flashes Expected: 08/19/2023 (Approximate), Expires: 08/19/2024 [facility] [employer] Work Phone: Comment on above: Expected: 08/19/2023 (Approximate), Expi res: 08/19/2024 Start: 08-15-2023 End: 08-15-2023 Patient encounter procedure 08/15/2023 2:15 PM EDT Office Visit [facility] [address] [place] [address] [place] [address] Juvencio Davila MD [address] [place] [address] [place], [place] [phone] [facility] Start: 08-01-2023 End: 09-01-2023 Amyloid 42/40 ratio plasma - Miscellaneous Test [facility] Comment on above: Expected: 08/01/2023 (Approximate), Expi res: 09/01/2023 Start: 08-01-2023 End: 10-01-2023 CT Head WO contrast CT head wo IV contrast Imaging Routine Mild dementia without behavioral disturbance, psychotic disturbance, mood disturbance, or anxiety, unspecified dementia type (HCC) Expected: 08/01/2023, Expires: 10/01/2023 [facility] Work Phone: Comment on above: Expected: 08/01/2023, Expires: Start: 08-01-2023 End: 08-01-2023 Patient encounter procedure 08/01/2023 11:30 AM EDT Office Visit [facility] [address] [place] [address] Jie Miranda MD [address] [place] [phone] [facility] Start: 06-27-2023 End: 06-27-2023 Patient encounter procedure [facility] Start: 06-21-2023 COVID-19 Vaccine ( season) COVID-19 Vaccine () [facility] Start: 06-21-2023 Influenza vaccination Influenza Vaccine (#1) [facility] Start: 06-10-2023 End: 06-10-2023 Patient encounter procedure 06/10/2023 3:00 PM EDT Office Visit [address] [place] [address] Juvencio Davila MD [address] [place], [place] [address] [address] [facility] Start: 06-03-2023 End: 06-03-2024 Sleep study with pap titration Sleep study with pap titration Sleep Center Routine TERESA on CPAP Expected: 06/03/2023 (Approximate), Expires: 06/03/2024 [facility] Work Phone: Comment on above: Expected: 06/03/2023 (Approximate), Expi res: 06/03/2024 Start: 05-27-2023 End: 05-27-2023 Patient encounter procedure 05/27/2023 10:00 AM EDT Office Visit [address] [place] [address] Juvencio Davila MD [address] [place] [address] [place] [address] [facility] Start: 05-22-2023 End: 05-22-2023 Patient encounter procedure 05/22/2023 9:45 AM EDT Office Visit [address] [place] [address] Juvencio Davila MD [address] [place] [address] [place] [address] [facility] Start: 05-08-2023 End: 05-08-2024 Comprehensive metabolic 1998 panel - Serum or Plasma Comprehensive metabolic panel Lab Routine Drug-induced movement disorder Expected: 05/08/2023 (Approximate), Expires: 05/08/2024 [facility] [employer] Work Phone: Comment on above: Expected: 05/08/2023 (Approximate), Expi res: 05/08/2024 Start: 04-28-2023 Depresssion Monitoring Depresssion Monitoring [facility] Start: 04-24-2023 End: 04-24-2023 Patient encounter procedure 04/24/2023 1:15 PM EDT Office Visit [facility] [address] [place] [address] [place] [address] Juvencio Davila MD [address] [place] [address] [facility] Start: 03-26-2023 End: 03-26-2024 Large Joint Injection/Arthrocentesi s Large Joint Injection/Arthrocentesis Procedures Routine Greater trochanteric bursitis of right hip Expected: 03/26/2023 (Approximate), Expires: 03/26/2024 [facility] Work Phone: Comment on above: Expected: 03/26/2023 (Approximate), Expi res: 03/26/2024 Start: 01-25-2023 Screening for malignant neoplasm of breast Mammogram [facility] Start: 11-16-2022 Creatinine measurement Creatinine Level [facility] Start: 11-16-2022 Potassium measurement Potassium Level [facility] Start: 10-30-2022 End: 10-30-2022 ambulatory 10/30/2022 Lab Family [facility] Start: 10-29-2022 End: 10-29-2023 Comprehensive metabolic 1998 panel - Serum or Plasma Comprehensive metabolic panel Lab Routine Essential hypertension Prediabetes Expected: 10/29/2022 (Approximate), Expires: 10/29/2023 [facility] Comment on above: Expected: 10/29/2022 (Approximate), Expi res: 10/29/2023 Start: 10-29-2022 End: 10-29-2023 Hemoglobin A1c/Hemoglobin.total in Blood Hemoglobin A1c Lab Routine Prediabetes Expected: 10/29/2022 (Approximate), Expires: 10/29/2023 [facility] Comment on above: Expected: 10/29/2022 (Approximate), Expi res: 10/29/2023 Start: 10-29-2022 End: 10-29-2023 Hemoglobin.gastrointest inal.lower [Presence] in Stool by Immunoassay Fecal Immunochemical Test Microbiology Routine Screening for colon cancer Expected: 10/29/2022 (Approximate), Expires: 10/29/2023 [facility] Comment on above: Expected: 10/29/2022 (Approximate), Expi res: 10/29/2023 Start: 10-29-2022 End: 10-29-2023 Lipid 1996 panel - Serum or Plasma Lipid panel Lab Routine Hyperlipidemia LDL goal <100 Expected: 10/29/2022 (Approximate), Expires: 10/29/2023 [facility] Work Phone: Comment on above: Expected: 10/29/2022 (Approximate), Expi res: 10/29/2023 Start: 10-29-2022 End: 12-28-2023 MG Breast - bilateral Screening Bilateral screening mammogram Imaging Routine Well female exam with routine gynecological exam Expected: 10/29/2022, Expires: 12/28/2023 [facility] Comment on above: Expected: 10/29/2022, Expires: Start: 10-26-2022 Screening for malignant neoplasm of colon [facility] Start: 03-03-2021 COVID-19 Vaccine (3 - Booster for Pfizer series) COVID-19 Vaccine (3 - Booster for Pfizer series) [facility] Start: 03-03-2021 COVID-19 Vaccine (3 - Pfizer series) COVID-19 Vaccine (3 - Pfizer series) [facility] Start: 2017 RSV Immunization aged 60 or older (1 - 1-dose 60+ series) RSV Immunization aged 60 or older (1 - 1-dose 60+ series) [facility] Start: 2017 RSV Immunization for Adults (1 - Risk 60-74 years 1-dose series) RSV Immunization for Adults (1 - Risk 60-74 years 1-dose series) [facility] Start: 03-15-2017 DTaP/Tdap/Td Vaccines (2 - Td or Tdap) DTaP/Tdap/Td Vaccines (2 - Td or Tdap) [facility] Start: 09-24-2005 Hepatitis B Vaccines (2 of 3 - 19+ 3-dose series) Hepatitis B Vaccines (2 of 3 - 19+ 3-dose series) [facility] Start: 09-24-2005 Hepatitis B Vaccines (2 of 3 - 3-dose series) Hepatitis B Vaccines (2 of 3 - 3-dose series) [facility] Start: 1987 Screening for malignant neoplasm of cervix HPV/Cotest [facility] Start: 1976 Pneumococcal Vaccine: 50+ Years (1 of 2 - PCV) Pneumococcal Vaccine: 50+ Years (1 of 2 - PCV) [facility] Start: 1975 Hepatitis C screening Hepatitis C Screening [facility] Start: 1963 Pneumococcal Vaccine: 65+ Years (1 - PCV) Pneumococcal Vaccine: 65+ Years (1 - PCV) [facility] Start: 01-07-1958 Examination of skin Derm Melanoma Skin Check [facility] Start: 1957 Annual wellness visit Medicare Initial Physical (IPPE) [facility] Start: 1957 Echocardiography Echocardiogram [facility] Start: 1957 Medicare Annual Wellness (AWV) Medicare Annual Wellness (AWV) [facility] Start: 1957 Screening for malignant neoplasm of colon [facility] Start: 1957 Screening for osteoporosis Bone Density Scan [facility] End: 08-23-2023 CT Head WO contrast [facility] Comment on above: Once for 1 Occurrences starting 08/23/20 23 until 08/23/2023 Cytology Cervical or vaginal smear or scraping study Pap Smear Pathology and Cytology Routine Well female exam with routine gynecological exam Ordered: 10/29/2022 [facility] Comment on above: Ordered: 10/29/2022 End: 07-22-2025 MR Thoracic spine WO and W contrast IV [facility] [employer] Work Phone: Comment on above: Once for 1 Occurrences starting 07/22/20 25 until 07/22/2025 OUTSIDE PROCEDURE SCAN OUTSIDE P ROCEDURE SCAN Procedures Ordered: 08/22/2023 [facility] Comment on above: Ordered: 08/22/2023 Tissue exam Tissue exam Path ology and Cytology Routine 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 Ordered: 10/10/2023 [facility] Work Phone: Comment on above: Ordered: 10/10/2023 Tissue [facility] Work Phone: Comment on above: Release Upon Ordering for 1 Occurrences starting 08/11/2024 End: 10-16-2024 XR Lumbar spine Views W flexion and W extension [facility] Work Phone: Comment on above: Once for 1 Occurrences starting 10/16/20 24 until 10/16/2024 Immunizations Immunization Date Immunization Notes Care Provider Sivan bone 10-29-2022 zoster vaccine recombinant H keily Bustillo [employer] Work Phone: [facility] 08-22-2022 influenza, injectabl e, quadrivalent, preservative free Shyla Bustillo [employer] Work Phone: [facility] 08-22-2022 influenza virus vacc ine, unspecified formulation Juvencio Davila MD Work Phone: [facility] 05-01-2022 zoster vaccine recombinant H keily Bustillo [employer] Work Phone: [facility] 08-21-2020 influenza virus vacc ine, unspecified formulation Shyla Bustillo [employer] Work Phone: [facility] 08-20-2019 influenza virus vacc ine, unspecified formulation Shyla Bustillo DE[employer] Work Phone: [facility] 08-08-2018 influenza virus vacc ine, unspecified formulation Shyla Bustillo [employer] Work Phone: [facility] 08-09-2017 influenza virus vacc ine, unspecified formulation Shyla Bustillo [employer] Work Phone: [facility] 02-15-2017 tetanus toxoid, redu goldie diphtheria toxoid, and acellular pertussis vaccine, adsorbed Shyla Bustillo [employer] Work Phone: [facility] 08-27-2005 hepatitis B vaccine, adult dosage Shyla Bustillo [employer] Work Phone: [facility] Payers Date Payer Category Payer Self-pay [id number] 2023 Medicare [id number] 2023 Medicare supplementa l policy (as second payer) [employer] [id number] 2023 Unknown AAR [employer] [id number] 2023-Present [address] [place] [address] Supplement [id number] 2023 Medicare [id number] 2023 Unknown [id number] 2011 Private Health Insurance 1957 Unknown [id number] Private Health Insurance [id number] Unknown [id number] Unknown [id number] Unknown [id number] Unknown [id number] Unknown [id number] Unknown [id number] [id number] Unknown [id number] Social History Date Type [facility] Start: 12-04-2021 End: 01-03-2023 Tobacco smoking status NHIS Unknown if ever smoked [facility] Start: 02-26-2019 None [facility] Start: 02-26-2019 Spouse/ Signif icant Other [facility] Start: 03-03-2019 Non-smoker [facility] Start: 1955 Sex Assigned At Female [facility] Start: 10-29-2022 End: 03-08-2025 Alcohol intake Current non-drinker of alcohol (finding) [facility] Start: 1955 Sex Assigned At Not on file [facility] Start: 10-29-2022 End: 03-08-2025 History of Social function [facility] Start: 10-29-2022 End: 03-08-2025 Tobacco use panel [facility] Start: 10-19-2022 End: 06-27-2023 Exposure to SARS-CoV-2 (event) Not sure [facility] Adolescent depressio n screening assessment 7 [facility] How often to you hav e a drink containing alcohol? Never [facility] (I/We) worried wheth er (my/our) food would run out before (I/we) got money to buy more. Never true [facility] In the past 12 month s, was there a time when you were not able to pay the mortgage or rent on time? No [facility] Start: 05-21-2022 Sex Female (finding) [facility] Are you now , , , , never or living with a partner? [facility] How many standard drinks containing alcohol do you have on a typical day? 1 or 2 [facility] Do you feel stress - tense, restless, nervous, or anxious, or unable to sleep at night because your mind is troubled all the time - these days [OSQ] To some extent [facility] Functional Status Date Assessment Result Facility 03-08-2025 Generalized anxiety disorder 7 item (ELIZABETH-7) [facility] 03-08-2025 Feeling nervous, anx ious or on edge 1 03/08/2025 9:47 AM EDT Mychart, Generic Several days [facility] 03-08-2025 Over the past 2 week s have you not been able to stop or control worrying 1 03/08/2025 9:47 AM EDT Mychart, Generic Several days [facility] 03-08-2025 Worrying too much ab out different things 2 03/08/2025 9:47 AM EDT Mychart, Generic More than half the days [facility] 03-08-2025 Trouble relaxing 1 03/08/2025 9: 47 AM EDT Mychart, Generic Several days [facility] 03-08-2025 Being so restless th at it is hard to sit still 1 03/08/2025 9:47 AM EDT Mychart, Generic Several days [facility] 03-08-2025 Becoming easily anno yed or irritable. 2 03/08/2025 9:47 AM EDT Mychart, Generic More than half the days [facility] 03-08-2025 Feeling afraid as if something awful might happen 1 03/08/2025 9:47 AM EDT Mychart, Generic Several days [facility] 03-08-2025 Little interest or p ann-marie in doing things Several days 03/08/2025 9:45 AM EDT Mychart, Generic Several days [facility] 03-08-2025 Feeling down, depres sed, or hopeless Several days 03/08/2025 9:45 AM EDT Mychart, Generic Several days [facility] 03-08-2025 Trouble falling or s taying asleep, or sleeping too much Nearly every day 03/08/2025 9:45 AM EDT Mychart, Generic Nearly every day [facility] 03-08-2025 Feeling tired or hav ing little energy More than half the days 03/08/2025 9:45 AM EDT Mychart, Generic More than half the days [facility] 03-08-2025 Poor appetite or overeating Kerline ral days 03/08/2025 9:45 AM EDT Mychart, Generic Several days [facility] 03-08-2025 Feeling bad about yo urself-or that you are a failure or have let yourself or your family down More than half the days 03/08/2025 9:45 AM EDT Mychart, Generic More than half the days [facility] 03-08-2025 Trouble concentratin g on things, such as reading the newspaper or watching television More than half the days 03/08/2025 9:45 AM EDT Mychart, Generic More than half the days [facility] 03-08-2025 Moving or speaking s o slowly that other people could have noticed. Or the opposite - being so fidgety or restless that you have been moving around a lot more than usual Nearly every day 03/08/2025 9:45 AM EDT Mychart, Generic Nearly every day [facility] 03-08-2025 Thoughts that you wo uld be better off , or of hurting yourself in some way Not at all 03/08/2025 9:45 AM EDT Mychart, Generic Not at all [facility] 03-08-2025 How difficult have t hese problems made it for you to do your work, take care of things at home, or get along with other people? Somewhat difficult 03/08/2025 9:45 AM EDT Mychart, Generic Somewhat difficult [facility] 03-08-2025 Total score [AUDIT-C] 0 03/08/20 9:42 AM EDT Mychart, Generic [facility] 03-08-2025 How often to you hav e a drink containing alcohol? Never 03/08/2025 9:42 AM EDT Mychart, Generic Never [facility] 03-08-[address] inks containing alcohol do you have on a typical day? 1 or 2 03/08/2025 9:42 AM EDT Mychart, Generic 1 or 2 [facility] 03-08-2025 How often do you hav e 6 or more drinks on 1 occasion? Never 03/08/2025 9:42 AM EDT Mychart, Generic Never [facility] 03-08-2025 Patient Health Quest ionnaire 2 item (PHQ-2) [Reported] [facility] 03-08-2025 PHQ-9 quick depressi on assessment panel [Reported.PHQ] [facility] Clinical Notes 10-29-2022 to 08-09-2025 [...] by mouth daily. Authorizing Provider: VIOLET CASTELLANOS [facility] 08-09-2025 Miscellaneous Notes Please schedule patient for follow up appointment for continued refills. Requested Prescriptions Signed Prescriptions Disp Refills valbenazine tosylate (Ingrezza) 40 MG capsule 30 capsule 1 Sig: Take 1 capsule (40 mg) by mouth daily. Authorizing Provider: VIOLET CASTELLANOS documented in this encounter [facility] 06-24-2025 Telephone encounter Note Reviewed chart. Refill appropriate. RX sent. [facility] 06-24-2025 Miscellaneous Notes Reviewed chart. Refill appropriate. RX sent. Prescription Request: SIMVASTATIN 40 MG TABLET Last medication check: 03/08/25 Last physical exam 12/08/24 Next scheduled appointment: 10/12/25 Last date of refill on this medication 01/01/25 ( qty 90 refill 1) documented in this encounter [facility] 06-24-2025 Telephone encounter Note Prescription Request: SIMVASTATIN 40 MG TABLET Last medication check: 03/08/25 Last physical exam 12/08/24 Next scheduled appointment: 10/12/25 Last date of refill on this medication 01/01/25 ( qty 90 refill 1) [facility] 05-06-2025 Telephone encounter Note Name of Caller: [employer] Contact Reason for Appointment: Daughter will call back to schedule the 05/06/25 missed appointment when she is able to check transportation for Blenda. Please be advised. Office Name: [facility] Neuro [facility] 05-06-2025 Miscellaneous Notes Name of Caller: Leanna Contact Reason for Appointment: Daughter will call back to schedule the 05/06/25 missed appointment when she is able to check transportation for Blenda. Please be advised. Office Name: [facility] Neuro documented in this encounter [facility] 05-03-2025 Telephone encounter Note Requested Prescriptions Signed Prescriptions Disp Refills valbenazine tosylate (Ingrezza) 40 MG capsule 30 capsule 3 Sig: Take 1 capsule (40 mg) by mouth daily. Authorizing Provider: VIOLET CASTELLANOS [facility] 05-03-2025 Miscellaneous Notes Requested Prescriptions Signed Prescriptions Disp Refills valbenazine tosylate (Ingrezza) 40 MG capsule 30 capsule 3 Sig: Take 1 capsule (40 mg) by mouth daily. Authorizing Provider: VIOLET CASTELLANOS documented in this encounter [facility] 03-08-2025 Evaluation + Plan note Associated Problem(s): Congestive heart failure (HCC) Stable. Followed by cardiology continue current medications [facility] 03-08-2025 Miscellaneous Notes Associated Problem(s): Congestive heart [...] follow-up with neurology documented in this encounter [facility] 03-08-2025 Evaluation + Plan note Associated Problem(s): Essential hypertension Controlled. Blood pressure 117/72, continue metoprolol 25 mg daily and lisinopril 2.5 mg daily [facility] 03-08-2025 Evaluation + Plan note Associated Problem(s): Anxiety Follow-up with psychiatry as directed [facility] 03-08-2025 Evaluation + Plan note Associated Problem(s): TERESA on CPAP Patient wearing CPAP nightly. Reports good sleep and feels well rested during the daytime. [facility] 03-08-2025 Evaluation + Plan note Associated Problem(s): Mild dementia without behavioral disturbance, psychotic disturbance, mood disturbance, or anxiety, unspecified dementia type (HCC) Stable. Continue to follow-up with psychiatry and neurology [facility] 03-08-2025 Evaluation + Plan note Associated Problem(s): Tardive dyskinesia Improving. Continue follow-up with neurology [facility] 03-08-2025 History of Presen t illness Narrative Patient was identified by name and Date of . Health Maintenance Due Topic Derm Melanoma Skin Check-NEEDS COMPLETED Depression Monitoring-completed SDOH/ELIZABETH/PHQ-need completed-sent via [facility] AWV/fasting labs---needs scheduled for 11/2025 Images [...] for this visit. documented in this encounter [facility] 03-08-2025 Instructions Janki Weems - 03/08/2025 10:20 AM EDT documented in this encounter [facility] 03-08-2025 Miscellaneous Notes Reviewed chart. Refill appropriate. RX sent. Prescription Request: FOLIC ACID 1 MG TABLET Last medication check: 12/08/24 Last physical exam: 12/08/24 Next scheduled appointment: 03/08/25 Last date of refill on this medication 09/03/24 ( qty 90 refill 1) documented in this encounter [facility] 03-08-2025 Telephone encounter Note Reviewed chart. Refill appropriate. RX sent. [facility] 03-08-2025 Telephone encounter Note Prescription Request: FOLIC ACID 1 MG TABLET Last medication check: 12/08/24 Last physical exam: 12/08/24 Next scheduled appointment: 03/08/25 Last date of refill on this medication 09/03/24 ( qty 90 refill 1) [facility] 03-05-2025 Telephone encounter Note Crystal notified. No further action needed. Closing encounter. [facility] 03-05-2025 Miscellaneous Notes Crystal notified. No further action needed. Closing encounter. Requested Prescriptions Signed Prescriptions Disp Refills amantadine (Symmetrel) 100 MG tablet 180 tablet 3 Sig: Take 1 tablet (100 mg) by mouth 2 times daily. Authorizing Provider: VIOLET CASTELLANOS Name of caller: Leanna Contact phone number: [phone] Relationship to Patient: family member daughter Provider: Dr Miranda Practice: Neurology Chief Complaint/Reason for Call: Leanna called stating that she called [facility] for a refill on patients amantadine (Symmetrel) 100 MG tablet and was told that medication had been discontinued. Script was sent to the [facility] and Leanna stated it should have gone to the [facility] on file. Please advise. Best time of day caller can be reached: Any Patient advised that office/PCP has 24-48 business hours to return their call: N/A documented in this encounter [facility] 03-05-2025 Telephone encounter Note Requested Prescriptions Signed Prescriptions Disp Refills amantadine (Symmetrel) 100 MG tablet 180 tablet 3 Sig: Take 1 tablet (100 mg) by mouth 2 times daily. Authorizing Provider: VIOLET CASTELLANOS [facility] 03-05-2025 Telephone encounter Note Name of caller: Leanna Contact phone number: [phone] Relationship to Patient: family member daughter Provider: Dr Miranda Practice: Neurology Chief Complaint/Reason for Call: Leanna called stating that she called [facility] for a refill on patients amantadine (Symmetrel) 100 MG tablet and was told that medication had been discontinued. Script was sent to the [facility] and Leanna stated it should have gone to the [facility] on file. Please advise. Best time of day caller can be reached: Any Patient advised that office/PCP has 24-48 business hours to return their call: N/A [facility] 03-02-2025 Telephone encounter Note Prescription Request: METOPROLOL SUCC ER 25 MG TAB Last medication check: 12/08/24 Last physical exam: 12/08/24 Next scheduled appointment: 03/08/25 Last date of refill on this medication 09/07/24 ( qty 90 refill 1) [facility] 03-02-2025 Miscellaneous Notes Prescription Request: METOPROLOL SUCC ER 25 MG TAB Last medication check: 12/08/24 Last physical exam: 12/08/24 Next scheduled appointment: 03/08/25 Last date of refill on this medication 09/07/24 ( qty 90 refill 1) documented in this encounter [facility] 02-10-2025 History of Presen t illness Narrative [...] Jie Miranda MD documented in this encounter [facility] 01-06-2025 Telephone encounter Note Requested Prescriptions Signed Prescriptions Disp Refills valbenazine tosylate (Ingrezza) 40 MG capsule 30 capsule 3 Sig: Take 1 capsule (40 mg) by mouth daily. Authorizing Provider: VIOLET CASTELLANOS [facility] 01-06-2025 Miscellaneous Notes Requested Prescriptions Signed Prescriptions Disp Refills valbenazine tosylate (Ingrezza) 40 MG capsule 30 capsule 3 Sig: Take 1 capsule (40 mg) by mouth daily. Authorizing Provider: VIOLET CASTELLANOS documented in this encounter [facility] 01-01-2025 History of Presen t illness Narrative [...] Jie Miranda MD documented in this encounter [facility] 12-29-2024 Telephone encounter Note Spoke to patients gabriela Ram, who is listed as a contact we can speak to. Agreeable to further testing. [facility] 12-29-2024 Telephone encounter Note ----- Message from SOO Grant CNP sent at 12/28/2024 5:01 PM EDT ----- Mammogram- asymmetry noted in the left breast, recommend diagnostic mammogram left with left breast ultrasound to further evaluate. [facility] 12-29-2024 Miscellaneous Notes Spoke to patients gabriela Ram, who is listed as a contact we can speak to. Agreeable to further testing. ----- Message from SOO Grant CNP sent at 12/28/2024 5:01 PM EDT ----- Mammogram- asymmetry noted in the left breast, recommend diagnostic mammogram left with left breast ultrasound to further evaluate. documented in this encounter [facility] 12-23-2024 Telephone encounter Note New rx sent [facility] 12-23-2024 Note Addended by: ADRIANE ROGERS on: 12/23/2024 09:42 AM Modules accepted: Orders [facility] 12-23-2024 Note Addended by: ADRIANE ROGERS on: 12/23/2024 09:42 AM Modules accepted: Orders [facility] 12-23-2024 Note Addended by: ADRIANE ROGERS on: 12/23/2024 09:42 AM Modules accepted: Orders [facility] 12-23-2024 Miscellaneous Notes New rx sent Addended by: ADRIANE HUBBARD on: 12/23/2024 09:42 AM Modules accepted: Orders Pharmacy does not stock the 500-5 mg-mcg tablets; they can provide 600-5 mg-mcg. Please advise, can we send new rx? Name of caller: Bonita @ [facility] location Contact phone number: [phone] Relationship to Patient: Pharmacy Provider: Adriane Hubbard Practice: [facility] Chief Complaint/Reason for Call: The following was called in to [facility] for patient 12/22/24: Calcium Carb-Cholecalciferol 500-5 MG-MCG tablet tablet [[id number]] Order Details Dose: 2 tablet Route: Oral [...] asking for you to send this to [facility] as a prescription since her insurance should pay for some of it if not all of it. ----- Message from SOO Grant CNP sent at 12/22/2024 7:16 AM EST ----- Dexa Scan shows osteopenia. Recommend calcium 1200 mg/day and vit d 2,000 international units daily, weight bearing exercise. Repeat dexa in 2-3 years documented in this encounter [employer] 12-23-2024 Telephone encounter Note Pharmacy does not stock the 500-5 mg-mcg tablets; they can provide 600-5 mg-mcg. Please advise, can we send new rx? [employer] 12-23-2024 Telephone encounter Note Name of caller: Bonita @ [facility] location Contact phone number: [phone] Relationship to Patient: Pharmacy Provider: Adriane Hubbard Practice: [facility] Chief Complaint/Reason for Call: The following was called in to [facility] for patient 12/22/24: Calcium Carb-Cholecalciferol 500-5 MG-MCG tablet tablet [[id number]] Order Details Dose: 2 tablet Route: Oral Frequency: Daily Dispense Quantity: 60 tablet Refills: 5 Sig: Take 2 tablets by mouth daily. Pharmacy does not stock the 500-5 mg-mcg tablets; they can provide 600-5 mg-mcg. Please advise if okay to change. Best time of day caller can be reached: any Patient advised that office/PCP has 24-48 business hours to return their call: No [facility] [employer] 12-22-2024 Telephone encounter Note Maeied, Leanna is asking for you to send this to [facility] as a prescription since her insurance should pay for some of it if not all of it. ----- Message from SOO Grant CNP sent at 12/22/2024 7:16 AM EST ----- Dexa Scan shows osteopenia. Recommend calcium 1200 mg/day and vit d 2,000 international units daily, weight bearing exercise. Repeat dexa in 2-3 years [employer] 12-22-2024 Miscellaneous Notes Sophia, Leanna is asking for you to send this to [facility] as a prescription since her insurance should pay for some of it if not all of it. ----- Message from SOO Grant CNP sent at 12/22/2024 7:16 AM EST ----- Dexa Scan shows osteopenia. Recommend calcium 1200 mg/day and vit d 2,000 international units daily, weight bearing exercise. Repeat dexa in 2-3 years documented in this encounter [facility] 12-10-2024 History of Presen t illness Narrative Images from the original note were not included. [facility] [address] [place] [address] [place] [address] Dept: [phone] Dept 12/10/2024 Chief Complaint Patient presents with [...] 08/11/2024 Performed by Mason Haynes MD at [facility] COLONOSCOPY W/ BIOPSIES AND POLYPECTOMY N/A 08/11/2024 Performed by Mason Haynes MD at [facility] TONSILLECTOMY (HISTORICAL) WRIST SURGERY Past Medical [...] MOUTH EVERY DAY 90 tablet 1 HYDROcodone-acetaminophen ([place]) 5-325 MG tablet Take 1 tablet by [...] of head of right radius, [place] [facility] [place] Hand/Wrist Upper Extremities - [place] [facility] I discussed with Kamila the [...] as tolerated as well. She may use stdw-bdj-melayeh pain medication as needed. The above diagnosis [...] MD Orthopedic Hand and Upper Extremity Surgery [facility] 12/10/2024 at 1:28 PM (Please note that portions of this note may have been completed with a voice recognition program. Efforts were made to edit the dictations but occasionally words are mis-transcribed.) documented in this encounter [facility] 12-08-2024 Evaluation + Plan note Associated Problem(s): Tardive dyskinesia Improving. Continue follow-up with neurology [facility] 12-08-2024 Miscellaneous Notes Associated Problem(s): Tardive dyskinesia [...] psychiatry and neurology documented in this encounter [facility] 12-08-2024 Evaluation + Plan note Associated Problem(s): Closed fracture of right upper extremity Follow-up with orthopedic as directed [facility] 12-08-2024 Evaluation + Plan note Associated Problem(s): Essential hypertension Controlled. Blood pressure 137/81, continue metoprolol 25 mg daily and lisinopril 2.5 mg daily [facility] 12-08-2024 Evaluation + Plan note Associated Problem(s): Hyperlipidemia LDL goal <100 Check lipids, continue simvastatin 40 mg daily [facility] 12-08-2024 Evaluation + Plan note Associated Problem(s): Cardiomyopathy (HCC) Stable. Is due for echocardiogram. Continue current medications [facility] 12-08-2024 Evaluation + Plan note Associated Problem(s): Congestive heart failure (HCC) Stable. Is due for her echocardiogram, continue current medications [facility] 12-08-2024 Evaluation + Plan note Associated Problem(s): Parkinson's disease without dyskinesia or fluctuating manifestations (HCC) Stable, managed by neurology, follow-up with neurology [facility] 12-08-2024 Evaluation + Plan note Associated Problem(s): Mild dementia without behavioral disturbance, psychotic disturbance, mood disturbance, or anxiety, unspecified dementia type (HCC) Stable. Continue to follow-up with psychiatry and neurology [facility] 12-08-2024 History of Presen t illness Narrative Images from the original note were not included. [facility] - [address] [place] [id number] Dept: [phone] Dept Kamila Joseph 1955 [id number] 12/08/2024 Problem List: Neck pain Cervical spondylosis [...] MOUTH EVERY DAY 90 tablet 1 HYDROcodone-acetaminophen ([place]) 5-325 MG tablet Take 1 tablet by [...] 08/11/2024 Performed by Mason Haynes MD at [facility] COLONOSCOPY W/ BIOPSIES AND POLYPECTOMY N/A 08/11/2024 Performed by Mason Haynes MD at [facility] TONSILLECTOMY (HISTORICAL) WRIST SURGERY Social History [...] may have occurred documented in this encounter [facility] 12-08-2024 Instructions Deborah Valenzuela MA - 12/08/2024 3:15 PM EST If your insurance does not change you may Schedule MRI for around 06/07/2025. Once you have this scheduled you can schedule a follow-up with Dr. Mann to review MRI documented in this encounter [facility] 12-08-2024 History of Presen t [...] from the original note were not included. [address] [address] Dept: [phone] Dept Chief Complaint: Kamila Joseph is an [...] MOUTH EVERY DAY 90 tablet 1 HYDROcodone-acetaminophen ([place]) 5-325 MG tablet Take 1 tablet by [...] that her mood is pretty good-she sees [facility] in [place] Hypertension-blood pressure has been good is currently [...] to make appointment with his / her dispute resolution specialist Safety: Safety Do you have a [...] severe depression (07/08/2024) documented in this encounter [facility] 12-08-2024 Instructions SOO Grant CNP - 12/08/2024 [...] Recommendations: A preventive eye exam by an dispute resolution specialist is recommended every 1-2 years to screen for glaucoma, cataracts, macular degeneration, and other eye disorders. A preventive dental visit is recommended every 6 months. Try to get at least 150 minutes of exercise per week or 10,000 steps per day on a pedometer. You need 1200-1500mg of calcium and 5991-3556 international units of vitamin D per day. [...] or a motorcycle documented in this encounter [facility] 12-07-2024 History of Presen t illness Narrative [...] by mouth daily. 30 capsule 3 HYDROcodone-acetaminophen ([place]) 5-325 MG tablet Take 1 tablet by [...] of right upper extremity, initial encounter HYDROcodone-acetaminophen ([place]) 5-325 MG tablet 2. Tardive dyskinesia Plan: [...] Miranda MD . documented in this encounter [facility] 12-05-2024 Emergency department Note Discharge teaching completed. Pt verbalizes understanding of medications, times to return to the ED, and follow up care discussed. Pt is stable and ambulatory upon discharge. Pt is a/o x 4; breathing is even and unlabored on room air. No distress noted. Pt leaves ED with all belongings. [facility] 12-05-2024 Note Discharge teaching c ompleted. Pt verbalizes understanding of medications, times to return to the ED, and follow up care discussed. Pt is stable and ambulatory upon discharge. Pt is a/o x 4; breathing is even and unlabored on room air. No distress noted. Pt leaves ED with all belongings. [facility] 12-05-2024 Emergency department Note Discharge teaching [...] otherwise acutely negative except as in the KASH[place]. PAST MEDICAL HISTORY Past Medical History: Diagnosis [...] 08/11/2024 Performed by Mason Haynes MD at [facility] COLONOSCOPY W/ BIOPSIES AND POLYPECTOMY N/A 08/11/2024 Performed by Mason Haynes MD at [facility] TONSILLECTOMY (HISTORICAL) WRIST SURGERY CURRENT MEDICATIONS [...] numbness and pain Alternatives discussed: No treatment Reagan protocol: Procedure explained and questions answered to [...] initial encounter DISPOSITION/PLAN dc PATIENT REFERRED TO: [facility] [place] [address] [place] [address] Dr Paul [place] [id number] DISCHARGE MEDICATIONS: Discharge Medication List as of [...] DO 12/06/24 0420 documented in this encounter [facility] 12-05-2024 Physician Emergency department Note Associated Order(s): [...] otherwise acutely negative except as in the KASHIA. PAST MEDICAL HISTORY Past Medical History: Diagnosis [...] 08/11/2024 Performed by Mason Haynes MD at [facility] COLONOSCOPY W/ BIOPSIES AND POLYPECTOMY N/A 08/11/2024 Performed by Mason Haynes MD at [facility] TONSILLECTOMY (HISTORICAL) WRIST SURGERY CURRENT MEDICATIONS [...] [facility] (Per Emergency Physician): Interpretation per the [...] numbness and pain Alternatives discussed: No treatment Reagan protocol: Procedure explained and questions answered to [...] initial encounter DISPOSITION/PLAN dc PATIENT REFERRED TO: [facility] [place] [address] [place] [address] Dr Paul [place] [phone] DISCHARGE MEDICATIONS: Discharge Medication List as [...] Medicine Provider\ Bud Malik DO 12/06/24 0420 [facility] 12-01-2024 Telephone encounter Note Chart reviewed. Prescription [...] both myself and their primary care physician. [facility] 12-01-2024 Miscellaneous Notes Chart reviewed. Prescription sent. [...] primary care physician. documented in this encounter [facility] 10-30-2024 History of Presen t illness Narrative Images from the original note were not included. [facility] [place] [address] [place] [id number] Dept: [phone] Dept Kamila Joseph 1955 [id number] 10/30/2024 Problem List: Neck pain Cervical myelopathy [...] 08/11/2024 Performed by Mason Haynes MD at [facility] COLONOSCOPY W/ BIOPSIES AND POLYPECTOMY N/A 08/11/2024 Performed by Mason Haynes MD at [facility] TONSILLECTOMY (HISTORICAL) WRIST SURGERY Social History [...] is treated conservatively with medications, injections, exercise, healthcare account manager, acupuncture, massage therapy, and physical therapy. We [...] CNP 10/30/2024 at 2:19 PM Dictated using [employer] Version 2.4 Proof read however unrecognized voice recognition errors may have occurred documented in this encounter [facility] 10-30-2024 Instructions Deborah Valenzuela MA - 10/30/2024 1:00 PM EST Images from the original note were not included. We will notify you once we have approval from your insurance. You will then call central scheduling at [phone] to schedule. Please call our office at [phone] once MRI is scheduled to schedule a follow up visit with Dr. Mann for review. documented in this encounter [facility] 10-12-2024 Evaluation + Plan note Associated Problem(s): Chronic midline low back pain without sciatica Patient has had continued low back pain with midline tenderness. Has completed physical therapy without significant improvement. Will obtain imaging for further evaluation. [facility] 10-12-2024 Note Patient has had cont inued low back pain with midline tenderness. Has completed physical therapy without significant improvement. Will obtain imaging for further evaluation. [facility] 10-12-2024 Evaluation + Plan note Associated Problem(s): Urinary tract infection symptoms UA unremarkable. Recommend retrying the bladder retraining and using alarms to assist with bathroom breaks. If symptoms not improving would recommend following up with urology [facility] 10-12-2024 Miscellaneous Notes Associated Problem(s): Chronic midline [...] unremarkable for UTI. documented in this encounter [facility] 10-12-2024 Evaluation + Plan note Associated Problem(s): Major depressive disorder, single episode, unspecified Stable. Managed by psychiatry continue current medications [facility] 10-12-2024 Evaluation + Plan note Associated Problem(s): Essential hypertension Controlled. Blood pressure 137/83, continue metoprolol 25 mg daily and lisinopril 2.5 mg daily [facility] 10-12-2024 Evaluation + Plan note Associated Problem(s): Acute pain of right shoulder X-ray was negative. Has had gradual improvement. Continue home physical therapy exercises. [facility] 10-12-2024 Evaluation + Plan note Associated Problem(s): Mixed stress and urge urinary incontinence Poorly controlled. Recommend restarting bladder retraining, recommend using an alarm to assist with scheduled voiding. UA unremarkable for UTI. [facility] 10-12-2024 History of Presen t illness Narrative [...] 10/12/2024 5:54 PM documented in this encounter [facility] 09-14-2024 History of Presen t illness Narrative [...] Jie Miranda MD documented in this encounter [facility] 09-08-2024 Evaluation + Plan note Associated Problem(s): Mixed stress and urge urinary incontinence Poorly controlled. Recommend starting bladder retraining. Reviewed and provided written instruction. Follow up in about 4 weeks. Would not recommend avoiding urinary incontinence medications d/t risks associated with them. [facility] 09-08-2024 Miscellaneous Notes Associated Problem(s): Mixed stress [...] formal physical therapy documented in this encounter [facility] 09-08-2024 Miscellaneous Notes Associated Problem(s): Mixed stress [...] Level of Service documented in this encounter [facility] 09-08-2024 Evaluation + Plan note Associated Problem(s): Acute pain of right shoulder Obtain xray to r/o any fracture d/t fall. Suspect soft tissue injury and possible rotator cuff tear. Recommend rice x 1 week, then start stretches/exercises provided. If not improving in a couple weeks, would recommend formal physical therapy [facility] 09-08-2024 History of Presen t illness Narrative [...] 09/08/2024 11:35 AM documented in this encounter [facility] 09-08-2024 History of Presen t illness Narrative [...] 09/08/2024 11:35 AM documented in this encounter [facility] 09-08-2024 Note Addended by: ADRIANE ROGERS on: 09/16/2024 06:06 AM Modules accepted: Level of Service [facility] 09-07-2024 Telephone encounter Note Prescription Request: Last medication check: 07/08/24 Last physical exam: 12/30/23 Next scheduled appointment: 12/30/24 Last date of refill on this medication 03/09/24 90 and 1 refill [facility] 09-07-2024 Miscellaneous Notes Prescription Request: Last medication check: 07/08/24 Last physical exam: 12/30/23 Next scheduled appointment: 12/30/24 Last date of refill on this medication 03/09/24 90 and 1 refill documented in this encounter [facility] 09-03-2024 Telephone encounter Note Reviewed chart. Refill appropriate. RX sent. [facility] 09-03-2024 Miscellaneous Notes Reviewed chart. Refill appropriate. RX sent. Prescription Request: Last medication check: 07/08/24 Last physical exam: 12/30/23 Next scheduled appointment: 12/30/24 Last date of refill on this medication 02/10/24 documented in this encounter [facility] 09-03-2024 Telephone encounter Note Prescription Request: Last medication check: 07/08/24 Last physical exam: 12/30/23 Next scheduled appointment: 12/30/24 Last date of refill on this medication 02/10/24 [employer] 08-24-2024 Telephone encounter Note Images from the [...] a single cassette. Disclaimer Department of Surgery [facility] [employer] 08-24-2024 Miscellaneous Notes Images from the original [...] Department of Surgery documented in this encounter [facility] 08-11-2024 Miscellaneous Notes Granddaughter assisted patient with getting dressed. Patient ambulatory to/from with assist. Assisted into wheelchair and out to car with family and volunteer. Patient tolerating PO fluids and crackers. Discharge instructions reviewed with patient and granddaughter. Both verbalize understanding. Received patient from OR to PACU with DATA MANAGEMENT SPECIALIST. Patient sedated on room air. No respiratory distress noted. Monitor on, safety maintained. Rn and granddaughter bedside. [facility]: Kamila Joseph Procedure [...] immediate complications. Procedure Code(s): --- Professional --- 02943, Colonoscopy, flexible; with removal of tumor(s), polyp(s), or other lesion(s) by snare technique 60550, 59, Colonoscopy, flexible; with biopsy, single or multiple --- Technical --- 11907, Colonoscopy, flexible; with removal of tumor(s), polyp(s), or other lesion(s) by snare technique 18830, 59, Colonoscopy, flexible; with biopsy, single or multiple Diagnosis Code(s): --- Professional --- Z12.11, Encounter for screening for malignant neoplasm of colon --- Technical --- Z12.11, Encounter for screening for malignant neoplasm of colon CPT copyright 2021 [employer]. All rights reserved. The codes documented in this report are preliminary and upon manager culinary review may be revised to meet current compliance requirements. Attending Participation: I personally performed the entire procedure. Mason Haynes MD 08/11/2024 9:36:53 AM Number of Addenda: 0 Note Initiated On: 08/11/2024 7:34 AM documented in this encounter [facility] 08-11-2024 Note Formatting of this n ote might be different from the original. Granddaughter assisted patient with getting dressed. Patient ambulatory to/from BR with assist. Assisted into wheelchair and out to car with family and volunteer. [facility] 08-11-2024 Note Formatting of this n ote might be different from the original. Granddaughter assisted patient with getting dressed. Patient ambulatory to/from BR with assist. Assisted into wheelchair and out to car with family and volunteer. T [facility] 08-11-2024 Note Formatting of this n ote might be different from the original. Patient tolerating PO fluids and crackers. Discharge instructions reviewed with patient and granddaughter. Both verbalize understanding. T [facility] 08-11-2024 Note Formatting of this n ote might be different from the original. Patient tolerating PO fluids and crackers. Discharge instructions reviewed with patient and granddaughter. Both verbalize understanding. T [facility] 08-11-2024 Note Formatting of this n ote might be different from the original. Received patient from OR to PACU with DATA MANAGEMENT SPECIALIST. Patient sedated on room air. No respiratory distress noted. Monitor on, safety maintained. Rn and granddaughter bedside. [facility] 08-11-2024 Note Formatting of this n ote might be different from the original. Received patient from OR to PACU with DATA MANAGEMENT SPECIALIST. Patient sedated on room air. No respiratory distress noted. Monitor on, safety maintained. Rn and granddaughter bedside. T [facility] 08-11-2024 History and physical note Images from [...] 08/11/2024 Performed by Mason Haynes MD at [facility] TONSILLECTOMY (HISTORICAL) WRIST SURGERY PFMHx: Family [...] understanding and willingness to proceed with plan. [employer] Phone: 08-11-2024 History and physical note Images [...] 08/11/2024 Performed by Mason Haynes MD at [facility] TONSILLECTOMY (HISTORICAL) WRIST SURGERY PFMHx: Family [...] proceed with plan. documented in this encounter [facility] 08-11-2024 Note Formatting of this n ote might be different from the original. [facility]: Kamila Joseph Procedure [...] immediate complications. Procedure Code(s): --- Professional --- 16193, Colonoscopy, flexible; with removal of tumor(s), polyp(s), or other lesion(s) by snare technique 38834, 59, Colonoscopy, flexible; with biopsy, single or multiple --- Technical --- 36639, Colonoscopy, flexible; with removal of tumor(s), polyp(s), or other lesion(s) by snare technique 71039, 59, Colonoscopy, flexible; with biopsy, single or multiple Diagnosis Code(s): --- Professional --- Z12.11, Encounter for screening for malignant neoplasm of colon --- Technical --- Z12.11, Encounter for screening for malignant neoplasm of colon CPT copyright 2021 [employer]. All rights reserved. The codes documented in this report are preliminary and upon manager culinary review may be revised to meet current compliance requirements. Attending Participation: I personally performed the entire procedure. Mason Haynes MD 08/11/2024 9:36:53 AM Number of Addenda: 0 Note Initiated On: 08/11/2024 7:34 AM [facility] 08-11-2024 Note Formatting of this n ote might be different from the original. [facility]: Kamila Joseph Procedure [...] immediate complications. Procedure Code(s): --- Professional --- 15529, Colonoscopy, flexible; with removal of tumor(s), polyp(s), or other lesion(s) by snare technique 47549, 59, Colonoscopy, flexible; with biopsy, single or multiple --- Technical --- 75133, Colonoscopy, flexible; with removal of tumor(s), polyp(s), or other lesion(s) by snare technique 96683, 59, Colonoscopy, flexible; with biopsy, single or multiple Diagnosis Code(s): --- Professional --- Z12.11, Encounter for screening for malignant neoplasm of colon --- Technical --- Z12.11, Encounter for screening for malignant neoplasm of colon CPT copyright 2021 [employer]. All rights reserved. The codes documented in this report are preliminary and upon manager culinary review may be revised to meet current compliance requirements. Attending Participation: I personally performed the entire procedure. Mason Haynes MD 08/11/2024 9:36:53 AM Number of Addenda: 0 Note Initiated On: 08/11/2024 7:34 AM [facility] 07-28-2024 Telephone encounter Note Our office spoke with the patient's [facility] The patient is scheduled with Dr. Haynes on 08/11/2024 with arrival time of 8:00 at [facility]. Verified that the patient has the prep information and all questions were answered. [facility] 07-28-2024 Miscellaneous Notes Our office spoke with the patient's daughter to remind Kamila of her colonoscopy appointment . The patient is scheduled with Dr. Haynes on 08/11/2024 with arrival time of 8:00 at [facility]. Verified that the patient has the prep information and all questions were answered. documented in this encounter [facility] 07-14-2024 Telephone encounter Note Screening Questionnaire Do [...] when was your last colonoscopy? no T [facility] 07-14-2024 Miscellaneous Notes Screening Questionnaire Do you [...] last colonoscopy? no documented in this encounter [facility] 07-08-2024 Evaluation + Plan note Associated Problem(s): Skin lesion Patient has had several lesions of concern, we will have her see dermatology for full skin examination. [facility] 07-08-2024 Evaluation + Plan note Associated Problem(s): Anxiety Follow-up with psychiatry as directed continue clonazepam 0.25 mg twice daily if needed and BuSpar 15 mg twice daily [facility] 07-08-2024 Miscellaneous Notes Associated Problem(s): Skin lesion [...] back pain muscular documented in this encounter [facility] 07-08-2024 Evaluation + Plan note Associated Problem(s): Recurrent major depressive disorder, in full remission (HCC) Follow-up with psychiatry as directed [facility] 07-08-2024 Evaluation + Plan note Associated Problem(s): Essential hypertension Controlled. Blood pressure 132/76, continue metoprolol 25 mg daily and lisinopril 2.5 mg daily [facility] 07-08-2024 Evaluation + Plan note Associated Problem(s): Hyperlipidemia LDL goal <100 Continue simvastatin 40 mg daily [facility] 07-08-2024 Evaluation + Plan note Associated Problem(s): Urinary tract infection symptoms Trace leuks only. Will send for urine culture. Most likely left sided low back pain muscular [facility] 07-08-2024 History of Presen t illness Narrative [...] dermatology for full skin examination. [place] [facility] [place]. [place] [facility] [place] - Terry [...] with primary care provider as scheduled. SUBJECTIVE/OBJECTIVE: [facility] - Kamila Joseph (: 1955) is [...] TD-symptoms resolved with medication. ENT- [facility] in [place] for cerumen prob. TERESA-wears CPAP at bedtime [...] DAY 03/05/24 Yes Shyla Bustillo APRN - [employer] FLUoxetine (PROzac) 40 MG capsule Take 40 [...] 07/08/2024 5:24 PM documented in this encounter [facility] 07-08-2024 Instructions SOO Grant CNP - 07/08/2024 11:20 AM EDT Please call Central Scheduling at [phone] to schedule your outpatient test (dexa scan) Please call to schedule your Mammogram at [phone] documented in this encounter [facility] 07-06-2024 Telephone encounter Note Prescription Request: Last medication check: 06/27/23 Last physical exam: 12/30/23 Next scheduled appointment: 07/08/24 Last date of refill on this medication 12/30/23 [facility] 07-06-2024 Miscellaneous Notes Prescription Request: Last medication check: 06/27/23 Last physical exam: 12/30/23 Next scheduled appointment: 07/08/24 Last date of refill on this medication 12/30/23 documented in this encounter [facility] 07-02-2024 History of Presen t illness Narrative [...] Jie Miranda MD documented in this encounter [facility] 04-02-2024 History of Presen t illness Narrative [facility] Primary Care Physician: [...] is seen in the [facility] of [facility] for complaint of tardive dyskinesia. She [...] to call the Department of Neurology at [phone] for any further concerns. Sincerely, SOO Handley CNP The above diagnosis and management plan were discussed at length with the patient and patient's daughter who voiced understanding and agreed. Electronically signed by: SOO Handley CNP 04/02/2024 1:49 PM documented in this encounter [facility] 03-23-2024 Evaluation + Plan note Associated Problem(s): Urinary tract infection symptoms UA trace leuks only. Will send for culture. Increase fluids. No CVA tenderness. Patient advised that she should not take medication that is not prescribed for her. Further plan of care pending culture results. [facility] 03-23-2024 Miscellaneous Notes Associated Problem(s): Urinary tract infection symptoms UA trace leuks only. Will send for culture. Increase fluids. No CVA tenderness. Patient advised that she should not take medication that is not prescribed for her. Further plan of care pending culture results. documented in this encounter [facility] 03-23-2024 History of Presen t illness Narrative [...] 03/23/2024 4:36 PM documented in this encounter [facility] 03-23-2024 Instructions SOO Grant CNP - 03/23/2024 2:00 PM EDT Will wait for urine culture to come back. Continue to drink lots of water to help flush urinary tract. documented in this encounter [facility] 03-23-2024 Telephone encounter Note S: Patient called [...] wants to be seen Protocols used: Flank [id number] [facility] 03-23-2024 Miscellaneous Notes S: Patient called the [...] wants to be seen Protocols used: Flank [id number] documented in this encounter [facility] 02-10-2024 Evaluation + Plan note Associated Problem(s): TERESA on CPAP Patient wearing CPAP nightly. Reports good sleep and feels well rested during the daytime. [facility] 02-10-2024 Miscellaneous Notes Associated Problem(s): TERESA on CPAP Patient wearing CPAP nightly. Reports good sleep and feels well rested during the daytime. documented in this encounter [facility] 02-10-2024 Telephone encounter Note Reviewed chart. Refill appropriate. RX sent. [facility] 02-10-2024 Miscellaneous Notes Reviewed chart. Refill appropriate. RX sent. Prescription Request: Last medication check: 08/19/23 Last physical exam: 12/30/23 Next scheduled appointment: here today seeing Lata Last date of refill on this medication: 08/12/23 documented in this encounter [facility] 02-10-2024 History of Presen t illness Narrative [...] by mouth daily. 10/16/23 04/13/24 Yes SOO Gratn CNP Review of Systems Constitutional: Negative. Respiratory: [...] date of refill on this medication: 08/12/23 [facility] 12-30-2023 Evaluation + Plan note Associated Problem(s): Anxiety Continue clonazepam 0.25 mg twice daily if needed, BuSpar 15 mg twice daily. Follow-up with psychiatry as directed. Psychiatry will be managing psychiatric medications from now on. [facility] 12-30-2023 Miscellaneous Notes Associated Problem(s): Anxiety Continue [...] follow-up with neurology documented in this encounter [facility] 12-30-2023 Evaluation + Plan note Associated Problem(s): Recurrent major depressive disorder, in full remission (HCC) Stable continue venlafaxine 300 mg daily. Follow-up with psychiatry for further management. Psychiatrist will now be managing psychiatric medications including anxiety medications [facility] 12-30-2023 Evaluation + Plan note Associated Problem(s): Hyperlipidemia LDL goal <100 Recheck lipid panel today, continue simvastatin 40 mg nightly nightly [facility] 12-30-2023 Evaluation + Plan note Associated Problem(s): Essential hypertension Controlled blood pressure 119/76. Continue metoprolol 25 mg daily and lisinopril 2.5 mg daily [facility] 12-30-2023 Evaluation + Plan note Associated Problem(s): TERESA on CPAP Patient has gotten a new CPAP but needs to start wearing it. Recommend doing so immediately as this will help improve sleep and reduce risks associated with untreated Teresa [facility] 12-30-2023 Evaluation + Plan note Associated Problem(s): Weight loss Weight is now stable 154 pounds. [facility] 12-30-2023 Evaluation + Plan note Associated Problem(s): Tardive dyskinesia Much improvement. Continue follow-up with neurology [facility] 12-30-2023 History of Presen t illness Narrative Patient was verified by name and . Images from the original note were not included. [facility] [address] [address] Dept: [phone] Dept Chief Complaint: Kamila Joseph is an [...] will be taking over her psychiatric medications [place]-hearing aids sees ENT in March- January - [...] to make appointment with his / her dispute resolution specialist Safety: Safety Do you have a [...] questions 9-10?: 1 documented in this encounter [facility] 12-30-2023 Instructions SOO Grant CNP - 12/30/2023 [...] Recommendations: A preventive eye exam by an dispute resolution specialist is recommended every 1-2 years to screen for glaucoma, cataracts, macular degeneration, and other eye disorders. A preventive dental visit is recommended every 6 months. Try to get at least 150 minutes of exercise per week or 10,000 steps per day on a pedometer. You need 1200-1500mg of calcium and 4198-3491 international units of vitamin D per day. [...] or a motorcycle documented in this encounter [facility] 12-09-2023 Telephone encounter Note Rx sent. Follow up as scheduled. [facility] 12-09-2023 Miscellaneous Notes Rx sent. Follow up as scheduled. Prescription Request: Last medication check: 11/14/23 Last physical exam: 10/29/22 Next scheduled appointment: 12/30/23 Last date of refill on this medication 11/14/23 documented in this encounter [facility] 12-09-2023 Telephone encounter Note Prescription Request: Last medication check: 11/14/23 Last physical exam: 10/29/22 Next scheduled appointment: 12/30/23 Last date of refill on this medication 11/14/23 [facility] 12-06-2023 History of Presen t illness Narrative [...] JIE MIRANDA MD documented in this encounter [facility] 11-14-2023 Evaluation + Plan note Associated Problem(s): Recurrent major depressive disorder, in full remission (HCC) Stable. Continue venlafaxine 300 mg daily [facility] 11-14-2023 Miscellaneous Notes Associated Problem(s): Recurrent major depressive disorder, in full remission (HCC) Stable. Continue venlafaxine 300 mg daily Associated Problem(s): Anxiety Improving, continue clonazepam 0.25 mg twice daily if needed, increase BuSpar to 15 mg twice daily and follow-up in about 1 month documented in this encounter [facility] 11-14-2023 Evaluation + Plan note Associated Problem(s): Anxiety Improving, continue clonazepam 0.25 mg twice daily if needed, increase BuSpar to 15 mg twice daily and follow-up in about 1 month [facility] 11-14-2023 History of Presen t illness Narrative [...] 11/14/2023 6:05 PM documented in this encounter [facility] 10-16-2023 Evaluation + Plan note Associated Problem(s): Essential hypertension Controlled. Blood pressure 118/72. Continue metoprolol 25 mg daily and lisinopril 2.5 mg daily [facility] 10-16-2023 Miscellaneous Notes Associated Problem(s): Essential hypertension [...] month for anxiety documented in this encounter [facility] 10-16-2023 Evaluation + Plan note Associated Problem(s): Recurrent major depressive disorder, in full remission (HCC) Stable. Continue venlafaxine 300 mg daily [facility] 10-16-2023 Evaluation + Plan note Associated Problem(s): Anxiety Anxiety poorly controlled. Continue clonazepam 0.25 mg twice daily, increase BuSpar 10 mg twice daily. Follow-up in 1 month for anxiety [facility] 10-16-2023 History of Presen t illness Narrative [...] 10/16/2023 5:01 PM documented in this encounter [facility] 10-10-2023 Evaluation + Plan note Associated Problem(s): [...] signs of infection and call or return. [facility] 10-10-2023 Miscellaneous Notes Associated Problem(s): Neoplasm of [...] call or return. documented in this encounter [facility] 10-10-2023 History of Presen t illness Narrative [...] symptoms worsen or fail to improve. SUBJECTIVE/OBJECTIVE: [facility] -Kamila comes in today for a [...] 10/10/2023 3:53 PM documented in this encounter [facility] 09-18-2023 Evaluation + Plan note Associated Problem(s): Skin lesion Likely benign. We will have her schedule for skin lesion removal [facility] 09-18-2023 Miscellaneous Notes Associated Problem(s): Skin lesion [...] neurology as directed documented in this encounter [facility] 09-18-2023 Evaluation + Plan note Associated Problem(s): Anxiety Anxiety is still poorly controlled. Continue Klonopin 0.5 mg half a tablet twice daily, we will add buspirone 5 mg twice daily and follow-up in 1 month [facility] 09-18-2023 Evaluation + Plan note Associated Problem(s): Essential hypertension Controlled. Blood pressure 120/82. Continue metoprolol 25 mg daily and lisinopril 2.5 mg daily [facility] [employer] [facility] 09-18-2023 Evaluation + Plan note Associated Problem(s): Tardive dyskinesia Improving. Follow-up with neurology as directed [employer] 09-17-2023 History of Presen t illness Narrative [...] scheduled establish with psychiatry in November in [place]. is doing ok, after neck surgery, he [...] 09/18/2023 6:30 AM documented in this encounter [facility] 09-05-2023 History of Presen t illness Narrative [...] JIE MIRANDA MD documented in this encounter [facility] 08-28-2023 Telephone encounter Note Prescription Request: Last medication check: 08/19/23 Last physical exam: 10/29/22 Next scheduled appointment: 09/17/23 Last date of refill on this medication 05/27/23 90 day 1 refill [facility] 08-28-2023 Miscellaneous Notes Prescription Request: Last medication check: 08/19/23 Last physical exam: 10/29/22 Next scheduled appointment: 09/17/23 Last date of refill on this medication 05/27/23 90 day 1 refill documented in this encounter [facility] 08-19-2023 Evaluation + Plan note Associated Problem(s): Weight loss Unsure etiology. Will check TSH. [facility] 08-19-2023 Miscellaneous Notes Associated Problem(s): Weight loss Unsure etiology. Will check TSH. Associated Problem(s): Essential hypertension Controlled. Continue metoprolol 25 mg daily and lisinopril 2.5 mg daily Associated Problem(s): Tardive dyskinesia Improving. Continue follow up with neurology. documented in this encounter [facility] 08-19-2023 Miscellaneous Notes Associated Problem(s): Weight loss Unsure etiology. Will check TSH. Associated Problem(s): Essential hypertension Controlled. Continue metoprolol 25 mg daily and lisinopril 2.5 mg daily Associated Problem(s): Tardive dyskinesia Improving. Continue follow up with neurology. Addended by: MERLYN ALBERTO on: 08/23/2023 07:36 AM Modules accepted: Orders documented in this encounter [facility] 08-19-2023 Evaluation + Plan note Associated Problem(s): Essential hypertension Controlled. Continue metoprolol 25 mg daily and lisinopril 2.5 mg daily [facility] 08-19-2023 Evaluation + Plan note Associated Problem(s): Tardive dyskinesia Improving. Continue follow up with neurology. [facility] 08-19-2023 History of Presen t illness Narrative [...] 08/19/2023 3:34 PM documented in this encounter [facility] 08-19-2023 History of Presen t illness Narrative [...] 08/19/2023 3:34 PM documented in this encounter [facility] 08-19-2023 Note Addended by: MERLYN ALBERTO on: 08/23/2023 07:36 AM Modules accepted: Orders [facility] 08-12-2023 Telephone encounter Note Prescription Request: Last medication check: 04/24/23 Last physical exam: 10/29/22 Next scheduled appointment: 08/15/23 Last date of refill on this medication 02/12/23 90 tablets 1 refill [facility] 08-12-2023 Miscellaneous Notes Prescription Request: Last medication check: 04/24/23 Last physical exam: 10/29/22 Next scheduled appointment: 08/15/23 Last date of refill on this medication 02/12/23 90 tablets 1 refill documented in this encounter [facility] 08-05-2023 Telephone encounter Note Requested Prescriptions Signed Prescriptions Disp Refills Valbenazine Tosylate (Ingrezza) 60 MG capsule 30 capsule 11 Sig: Take 1 capsule by mouth daily. Authorizing Provider: VIOLET CASTELLANOS [facility] 08-05-2023 Miscellaneous Notes Requested Prescriptions Signed Prescriptions Disp Refills Valbenazine Tosylate (Ingrezza) 60 MG capsule 30 capsule 11 Sig: Take 1 capsule by mouth daily. Authorizing Provider: VIOLET CASTELLANOS Patient is locked in to [facility] specialty for her Ingrezza therapy. I have pended the RX below for approval to send to the [facility] specialty in [facility]. Patient states she is down to 5 capsules remaining, so I will follow up with [facility] to ensure this is received within the correct time frame. Thanks! documented in this encounter [facility] 08-05-2023 Telephone encounter Note Patient is locked in to [facility] specialty for her Ingrezza therapy. I have pended the RX below for approval to send to the [facility] specialty in [facility]. Patient states she is down to 5 capsules remaining, so I will follow up with [facility] to ensure this is received within the correct time frame. Thanks! [facility] 08-01-2023 History of Presen t illness Narrative [...] was 50 minutes documented in this encounter [facility] 08-01-2023 Miscellaneous Notes Addended by: MERLYN ALBERTO on: 08/23/2023 07:29 AM Modules accepted: Orders documented in this encounter [facility] 08-01-2023 Note Addended by: MERLYN ALBERTO on: 08/23/2023 07:29 AM Modules accepted: Orders [facility] 08-01-2023 Note Addended by: MERLYN ALBERTO on: 08/23/2023 07:29 AM Modules accepted: Orders [facility] 07-24-2023 Evaluation + Plan note Associated Problem(s): Anxiety Anxiety is not as bad now that the movement disorder is improving. Due to high risk for falls, recommend decreasing dose of Klonopin to half a tablet twice daily and follow-up with neurology next week. [facility] 07-24-2023 Miscellaneous Notes Associated Problem(s): Anxiety Anxiety is not as bad now that the movement disorder is improving. Due to high risk for falls, recommend decreasing dose of Klonopin to half a tablet twice daily and follow-up with neurology next week. Associated Problem(s): Tardive dyskinesia Improving. Follow-up with neurology as directed documented in this encounter [facility] 07-24-2023 Evaluation + Plan note Associated Problem(s): Tardive dyskinesia Improving. Follow-up with neurology as directed [facility] 07-24-2023 History of Presen t illness Narrative [...] 07/24/2023 5:41 PM documented in this encounter [facility] 07-24-2023 Instructions SOO Grant CNP - 07/24/2023 1:00 PM EDT Need to be stabilized with mood/anxiety and have movement disorder better before returning to work. Decrease dose of klonopin to 1/2 tablet twice daily to see if helps with steadiness. documented in this encounter [facility] 07-03-2023 Telephone encounter Note Done, printed, Crystal will fiber picker today. [facility] 07-03-2023 Miscellaneous Notes Done, printed, Crystal will fiber picker today. Okay to extend her off work [...] care advice. Please contact gabriela Ram at [phone] as to how to obtain work letter. Reason for Disposition Caller has NON-URGENT medicine question about med that PCP or specialist prescribed and triager unable to answer question Protocols used: Medication Question [id number] documented in this encounter [facility] 07-03-2023 Telephone encounter Note Okay to extend her off work note through this weekend [facility] 07-03-2023 Telephone encounter Note S Patient daughter [...] care advice. Please contact gabriela Leanna at [phone] as to how to obtain work letter. Reason for Disposition Caller has NON-URGENT medicine question about med that PCP or specialist prescribed and triager unable to answer question Protocols used: Medication Question [id number] [facility] 07-01-2023 Telephone encounter Note Requested Prescriptions Signed Prescriptions Disp Refills valbenazine tosylate (Ingrezza) 40 MG capsule 30 capsule 11 Sig: Take 1 capsule (40 mg) by mouth daily. Authorizing Provider: VIOLET CASTELLANOS [facility] 07-01-2023 Miscellaneous Notes Requested Prescriptions Signed Prescriptions [...] specialty below. Thanks! documented in this encounter [facility] 07-01-2023 Telephone encounter Note I spoke with [...] is pended for [facility] specialty below. Thanks! [facility] 06-27-2023 Evaluation + Plan note Associated Problem(s): Anxiety Klonopin 0.5 mg 3 times daily as needed OARRS report done, no inconsistencies, CS agreement signed today [facility] 06-27-2023 Miscellaneous Notes Associated Problem(s): Anxiety Klonopin 0.5 mg 3 times daily as needed OARRS report done, no inconsistencies, CS agreement signed today Associated Problem(s): Tardive dyskinesia Continue Cogentin at current dose, get prescription that neurology has sent in and follow-up with neurology as needed. Kenalog in [place] to be applied every 2 hours to the affected areas. documented in this encounter [facility] 06-27-2023 Evaluation + Plan note Associated Problem(s): Tardive dyskinesia Continue Cogentin at current dose, get prescription that neurology has sent in and follow-up with neurology as needed. Kenalog in [employer] to be applied every 2 hours to the affected areas. [facility] 06-27-2023 History of Presen t illness Narrative [...] 06/27/2023 3:53 PM documented in this encounter [facility] 06-27-2023 History of Presen t illness Narrative [...] normal. Impression: Diagnosis Plan 1. Tardive dyskinesia [facility] [place] Plan: 1. Since [...] JIE MIRANDA MD documented in this encounter [facility] 06-27-2023 Telephone encounter Note Prescription Request: Last medication check: 04/24/23 Last physical exam: 10/29/22 Next scheduled appointment: 06/27/23 Last date of refill on this medication 12/28/22 90 day 1 refill [facility] 06-27-2023 Miscellaneous Notes Prescription Request: Last medication check: 04/24/23 Last physical exam: 10/29/22 Next scheduled appointment: 06/27/23 Last date of refill on this medication 12/28/22 90 day 1 refill documented in this encounter [facility] 06-26-2023 Telephone encounter Note Name of caller: Crystal Relation to patient: family member patient and daughter Contact phone number: [phone] Appointment scheduled with: Dr. Miranda Appointment date & time: 06/27/23, 10:00a Reason for visit (are you having any symptoms) : Tardive Dyskinesia Transportation issues/ concerns: N/A Special accommodations? ( wheel chair, etc) : N/A Current medications: N/A Any refills need: N/A Any chronic conditions the provider should be aware of: N/A [facility] 06-26-2023 Miscellaneous Notes Name of caller: Leanna Relation to patient: family member patient and daughter Contact phone number: [phone] Appointment scheduled with: Dr. Miranda Appointment date & time: 06/27/23, 10:00a Reason for visit (are you having any symptoms) : Tardive Dyskinesia Transportation issues/ concerns: N/A Special accommodations? ( wheel chair, etc) : N/A Current medications: N/A Any refills need: N/A Any chronic conditions the provider should be aware of: N/A documented in this encounter [facility] 06-19-2023 Evaluation + Plan note Associated Problem(s): [...] Will rx for lidocaine viscous for pain. [facility] 06-19-2023 Miscellaneous Notes Associated Problem(s): Tardive dyskinesia [...] movement disorder is worse. Was referred to [facility] and is scheduled with them in [...] (2/10) and ongoing problem Protocols used: Tongue [id number] documented in this encounter [facility] 06-19-2023 Telephone encounter Note Discussed with Dr. [...] movement disorder is worse. Was referred to [facility] and is scheduled with them in [...] for lidocaine viscous for pain. Denies si/hi. [facility] 06-19-2023 Telephone encounter Note S: Patient spoke [...] (2/10) and ongoing problem Protocols used: Tongue [id number] T [facility] 06-13-2023 Telephone encounter Note Have not yet received sleep study report. Faxed order to [facility] without it, will send sleep study to them once we receive it. [facility] order scanned in. T [facility] 06-13-2023 Miscellaneous Notes Have not yet received sleep study report. Faxed order to [facility] without it, will send sleep study to them once we receive it. [facility] order scanned in. GUILLE sent for sleep study to [facility]. Will send with order form. Thank [...] get this problem resolved. Can we contact [facility] and have them send us a preprinted order so we can order a new CPAP machine for her at her previous setting. Spoke to patient last sleep study was done 10 years ago at [facility], I am not able to access her old chart right now for some reason, are you able to see if we have the previous report? If not I will send a request for it. Thank you! Name of caller: Luisito Contact phone number: [phone] Relationship to Patient: [facility] sleep studies Provider: Juvencio Davila Practice: [...] of caller: Kamila Joseph Contact phone number: [phone] Relationship to Patient: patient Provider: Dr. Davila Practice: [facility] Chief Complaint/Reason for Call: Pt asking for an order for c-pap to be sent to [facility] at [phone]. Please advise. Thank you. Best time of day caller can be reached: ANY Patient advised that office/PCP has 24-48 business hours to return their call: Yes documented in this encounter [facility] 06-13-2023 Telephone encounter Note GUILLE sent for sleep study to [facility]. Will send with order form. [facility] 06-13-2023 Telephone encounter Note Thank you, that is the preprinted form that I was looking for, we already got her setting at 9 cm of H2O, paperwork filled out [facility] 06-13-2023 Telephone encounter Note They can't do [...] settings unless you have that info. Thanks! [facility] 06-12-2023 Telephone encounter Note Right now this patient is not able to do a sleep study due to her facial movements from her medication, we are trying to get this problem resolved. Can we contact [facility] and have them send us a preprinted order so we can order a new CPAP machine for her at her previous setting. [facility] 06-12-2023 Telephone encounter Note Spoke to patient last sleep study was done 10 years ago at [facility], I am not able to access her old chart right now for some reason, are you able to see if we have the previous report? If not I will send a request for it. Thank you! [facility] 06-12-2023 Telephone encounter Note Name of caller: Luisito Contact phone number: [phone] Relationship to Patient: [facility] sleep studies Provider: Juvencio Davila Practice: [facility] Chief Complaint/Reason for Call: Good morning, we received a titration sleep study order for patient, however, we need patient's previous results. If previous results cannot be obtained, a split study can be ordered instead. Thank you. [facility] 06-10-2023 Evaluation + Plan note Associated Problem(s): TERESA on CPAP We will contact [facility] to get a preprinted order to order a new CPAP. [facility] 06-10-2023 Miscellaneous Notes Associated Problem(s): TERESA on CPAP We will contact [facility] to get a preprinted order to order a new CPAP. Associated Problem(s): Drug-induced movement disorder We will restart her Risperdal, she has some at home and stop the Cogentin, this is per the patient's family's request since she did better when she was on the Risperdal after switching back from the Vraylar follow-up in 1 week. documented in this encounter [facility] 06-10-2023 Evaluation + Plan note Associated Problem(s): Drug-induced movement disorder We will restart her Risperdal, she has some at home and stop the Cogentin, this is per the patient's family's request since she did better when she was on the Risperdal after switching back from the Vraylar follow-up in 1 week. [facility] 06-10-2023 History of Presen t illness Narrative [...] CPAP Assessment & Plan: We will contact [facility] to get a preprinted order to order [...] 06/10/2023 3:52 PM documented in this encounter [facility] 06-03-2023 Telephone encounter Note Order for sleep study with PAP titration entered, please schedule at patient's preferred location [facility] 05-31-2023 Telephone encounter Note Spoke with patient she is agreeable to doing a titration test. [facility] 05-31-2023 Telephone encounter Note If her last sleep study was 10 years ago then we probably need to set her up for a new titration to make sure that that level is still okay. [facility] 05-31-2023 Telephone encounter Note I called [facility] the settings they have on file is 9 CM. He said he is not sure if she still needs that or needs to be retested. [facility] 05-31-2023 Telephone encounter Note Patient says her machine wont even power on so she cant check to find out what her settings are and that her last sleep study was 10 years or more ago and I do not see it in her chart. She uses [email or web address] so I am going to call them and see if I can get the information [facility] 05-31-2023 Telephone encounter Note To send an order for a CPAP we need to know what her settings are [facility] 05-31-2023 Telephone encounter Note Name of caller: Kamila Joseph Contact phone number: [phone] Relationship to Patient: patient Provider: Dr. Davila Practice: [facility] Chief Complaint/Reason for Call: Pt asking for an order for c-pap to be sent to [facility] at [phone]. Please advise. Thank you. Best time of day caller can be reached: ANY Patient advised that office/PCP has 24-48 business hours to return their call: Yes [facility] 05-27-2023 Evaluation + Plan note Associated Problem(s): Recurrent major depressive disorder, in full remission (HCC) Partial remission, will increase her Wellbutrin to 300 mg daily [facility] 05-27-2023 Evaluation + Plan note Associated Problem(s): Anxiety Partial remission, will increase her Wellbutrin to 300 mg daily T [facility] 05-27-2023 Miscellaneous Notes Associated Problem(s): Recurrent major [...] the Risperdal also. documented in this encounter [facility] 05-27-2023 Evaluation + Plan note Associated Problem(s): Class 1 obesity due to excess calories without serious comorbidity with body mass index (BMI) of 30.0 to 30.9 in adult Continued weight loss, refill Adipex 37.5, Rx sent, OARRS report done, no inconsistencies. [facility] 05-27-2023 Evaluation + Plan note Associated Problem(s): Tardive dyskinesia Resolving off of Vraylar, will stop the Risperdal also. [facility] 05-27-2023 History of Presen t illness Narrative [...] to authenticate this note. Juvencio Davila MD 05/27/2023 3:43 PM documented in this encounter [facility] 05-08-2023 Evaluation + Plan note Associated Problem(s): Essential hypertension Controlled, continue metoprolol 25 mg daily, lisinopril 2.5 mg daily [facility] 05-08-2023 Miscellaneous Notes Associated Problem(s): Essential hypertension [...] with psychiatry. Will refer to psychiatry in [place] per family request Associated Problem(s): Tardive dyskinesia Njr-ymljwu-afokzcq dyskinesias. VS stable. Possibly from Vraylar or withdrawal from risperidone. Consulted with psychiatry (Dr. Shin) and will stop Vraylar, restart risperidone at decreased dose of 4 mg daily. Continue venlafaxine. Refer to psychiatry. Close follow up documented in this encounter [facility] 05-08-2023 Miscellaneous Notes Associated Problem(s): Essential hypertension [...] with psychiatry. Will refer to psychiatry in [place] per family request Associated Problem(s): Tardive dyskinesia Mae-gtlbld-wymlpmt dyskinesias. VS stable. Possibly from Vraylar or withdrawal from risperidone. Consulted with psychiatry (Dr. Shin) and will stop Vraylar, restart risperidone at decreased dose of 4 mg daily. Continue venlafaxine. Refer to psychiatry. Close follow up Addended by: ADRIANE HUBBARD on: 05/09/2023 12:43 PM Modules accepted: Level of Service documented in this encounter [facility] 05-08-2023 Evaluation + Plan note Associated Problem(s): Recurrent major depressive disorder, in full remission (HCC) Uncontrolled, denies any suicidal or homicidal ideation. Will have her continue her venlafaxine, due to recent onset of movement disorder possibly secondary to Vraylar or withdrawal from risperidone, we will stop Vraylar and restart risperidone at 4 mg daily. Consulted with psychiatry. Will refer to psychiatry in [place] per family request [facility] 05-08-2023 Evaluation + Plan note Associated Problem(s): Tardive dyskinesia Nwd-agbfyk-bvzrcrb dyskinesias. VS stable. Possibly from Vraylar or withdrawal from risperidone. Consulted with psychiatry (Dr. Shin) and will stop Vraylar, restart risperidone at decreased dose of 4 mg daily. Continue venlafaxine. Refer to psychiatry. Close follow up [facility] 05-08-2023 History of Presen t illness Narrative [...] ASSESSMENT/PLAN: 1. Tardive dyskinesia Assessment & Plan: Ywd-nhcrvm-peugzxk dyskinesias. VS stable. Possibly from Vraylar or [...] with psychiatry. Will refer to psychiatry in [place] per family request Follow up in about [...] Coordination: Coordination normal. Comments: Intermittent teeth grinding, vvk-jqukg-uywqwfp dyskinesia noted. Not tardive upper extremity movements noted. Psychiatric: Attention and Perception: Attention normal. Mood and Affect: Mood normal. Affect is flat. Speech: Speech is slurred. Behavior: Behavior is cooperative. Thought Content: Thought content normal. Cognition and Memory: Memory is impaired. An electronic signature was used to authenticate this note. SOO Grant CNP 05/08/2023 7:22 AM Bail Attacher for Intimate and Non Intimate Exam Bail Attacher was declined Bail Attacher: na documented in this encounter [facility] 05-08-2023 History of Presen t illness Narrative [...] ASSESSMENT/PLAN: 1. Tardive dyskinesia Assessment & Plan: Kce-bxfofz-cxnbzhh dyskinesias. VS stable. Possibly from Vraylar or [...] with psychiatry. Will refer to psychiatry in [place] per family request Follow up in about [...] Coordination: Coordination normal. Comments: Intermittent teeth grinding, atv-ructs-byzsuja dyskinesia noted. Not tardive upper extremity movements noted. Psychiatric: Attention and Perception: Attention normal. Mood and Affect: Mood normal. Affect is flat. Speech: Speech is slurred. Behavior: Behavior is cooperative. Thought Content: Thought content normal. Cognition and Memory: Memory is impaired. An electronic signature was used to authenticate this note. SOO Grant CNP 05/08/2023 7:22 AM Bail Attacher for Intimate and Non Intimate Exam Bail Attacher was declined Bail Attacher: na documented in this encounter [facility] 05-08-2023 Instructions SOO Grant CNP - 05/08/2023 11:00 AM EDT Stop cariprazine 1.5 mg daily. Restart risperidone 4 mg daily (decreased dose from 6 mg) documented in this encounter [facility] 05-08-2023 Instructions SOO Grant CNP - 05/08/2023 11:00 AM EDT Stop cariprazine 1.5 mg daily. Restart risperidone 4 mg daily (decreased dose from 6 mg) documented in this encounter [facility] 05-08-2023 Note Addended by: ADRIANE ROGERS on: 05/09/2023 12:43 PM Modules accepted: Level of Service [facility] 04-24-2023 Evaluation + Plan note Associated Problem(s): Recurrent major depressive disorder, in full remission (HCC) Uncontrolled, will have her continue her venlafaxine but we will change her Risperdal to Vraylar 1.5 mg and will increase from there. Rx sent, follow-up in 4 weeks. [facility] 04-24-2023 Evaluation + Plan note Associated Problem(s): Class 1 obesity due to excess calories without serious comorbidity with body mass index (BMI) of 30.0 to 30.9 in adult Further weight loss is seen, will refill her phentermine for another month and follow-up in 4 weeks for weight check. [facility] 04-24-2023 Miscellaneous Notes Associated Problem(s): Recurrent major [...] for weight check. documented in this encounter [facility] 04-24-2023 History of Presen t illness Narrative Bail Attacher for Intimate and Non Intimate Exam Bail Attacher was declined Bail Attacher: na Images from the original note were [...] 04/24/2023 1:40 PM documented in this encounter [facility] 03-26-2023 Evaluation + Plan note Associated Problem(s): Class 1 obesity due to excess calories without serious comorbidity with body mass index (BMI) of 31.0 to 31.9 in adult Phentermine 37.5 mg once a day follow-up in 4 weeks for weight check. [facility] 03-26-2023 Evaluation + Plan note Associated Problem(s): Greater trochanteric bursitis of right hip Injection procedure: Location right trochanteric bursa Consent: Verbal Consent Obtained-Discussed risks including hypo/hyperpigmentation, fat atrophy, steroid flare, bleeding and infection and potential consequences of over use of steroids. Prep: Betadine. Anesthesia: 2% lidocaine. Medication: 1 ml depomedrol 40 mg. Needle: 25 gauge 1.5 in. needle. Complications: No Complications, Hemostasis achieved. [facility]: [id number] LOT: [id number] [facility]: [id number] LOT: [id number]. [facility] 03-26-2023 Miscellaneous Notes Associated Problem(s): Class 1 [...] in. needle. Complications: No Complications, Hemostasis achieved. [facility]: [id number] LOT: [id number] [facility]: [id number] LOT: [id number]. documented in this encounter [facility] 03-26-2023 History of Presen t illness Narrative [...] in. needle. Complications: No Complications, Hemostasis achieved. [facility]: [id number] LOT: [id number] [facility]: [id number] LOT: [id number]. Orders: - Large Joint Injection/Arthrocentesis - methylPREDNISolone [...] every morning (before breakfast)., Starting 03/26/2023, Until Maura 04/25/2023, Normal Follow up in about 4 [...] 03/26/2023 2:18 PM documented in this encounter [facility] 02-12-2023 Telephone encounter Note Prescription Request: Last medication check: 05/01/22 Last physical exam: 10/29/22 Next scheduled appointment: 10/30/23 Last date of refill on this medication 08/13/22 90 days 1 refill [facility] 02-12-2023 Miscellaneous Notes Prescription Request: Last medication check: 05/01/22 Last physical exam: 10/29/22 Next scheduled appointment: 10/30/23 Last date of refill on this medication 08/13/22 90 days 1 refill documented in this encounter [facility] 12-31-2022 Telephone encounter Note Prescription Request: Last medication check: 05/01/22 Last physical exam: 10/29/22 Next scheduled appointment: 10/30/23 Last date of refill on this medication 07/04/22 [facility] 12-31-2022 Miscellaneous Notes Prescription Request: Last medication check: 05/01/22 Last physical exam: 10/29/22 Next scheduled appointment: 10/30/23 Last date of refill on this medication 07/04/22 documented in this encounter [facility] 12-28-2022 Telephone encounter Note Prescription Request: Last medication check: 05/01/22 Last physical exam: 10/29/22 Next scheduled appointment: 10/30/23 Last date of refill on this medication 07/04/22 [facility] 12-28-2022 Miscellaneous Notes Prescription Request: Last medication check: 05/01/22 Last physical exam: 10/29/22 Next scheduled appointment: 10/30/23 Last date of refill on this medication 07/04/22 documented in this encounter [facility] 10-29-2022 Evaluation + Plan note Associated Problem(s): Hyperlipidemia LDL goal <100 Controlled, continue simvastatin 40 mg nightly [facility] 10-29-2022 Miscellaneous Notes Associated Problem(s): Hyperlipidemia LDL [...] 25 mg daily documented in this encounter [facility] 10-29-2022 Evaluation + Plan note Associated Problem(s): Recurrent major depressive disorder, in full remission (HCC) Remission, venlafaxine XR 225 mg daily and Risperdal 4 mg daily [facility] 10-29-2022 Evaluation + Plan note Associated Problem(s): Anxiety Remission, venlafaxine XR 225 mg daily and Risperdal 4 mg daily [facility] 10-29-2022 Evaluation + Plan note Associated Problem(s): Prediabetes Currently on no medications, very strict low-carb diet. [facility] 10-29-2022 Evaluation + Plan note Associated Problem(s): Obesity (BMI 35.0-39.9 without comorbidity) Contrave 8-90, 2 tablets twice a day, follow-up in 4 weeks for weight check [facility] 10-29-2022 Evaluation + Plan note Associated Problem(s): Essential hypertension Controlled, continue lisinopril 2.5 mg and metoprolol 25 mg daily [facility] 10-29-2022 History of Presen t illness Narrative Patient verified by last name and date of . Patient wants a lime puller in the room during during the visit. No only during pap Bail Attacher na Images from the original note were [...] nursing note reviewed. Exam conducted with a lime puller present. Constitutional: General: She is not in [...] adverse reaction immediately. documented in this encounter [facility] Evaluation note Diagnosis Onset Date Atrial tachycardia chronic Cardiomyopathy chronic Essential hypertension chron [facility] Work Phone: Evaluation note* Diagnosis Onset Date Resolution Status Atrial tachycardia [facility] Work Phone: Evaluation note* Diagnosis Greater trochanteric bursitis of right hip- Primary Class 1 obesity due to excess calories without serious comorbidity with body mass index (BMI) of 31.0 to 31.9 in adult documented in this encounter [facility] note* Diagnosis Recurrent major depressive [...] TERESA on CPAP documented in this encounter [facility]* Diagnosis TERESA on CPAP- Primary documented in this encounter [facility]* Diagnosis Tardive dyskinesia- Primary Subacute dyskinesia due to drugs documented in this encounter [facility]* Diagnosis Tardive dyskinesia- Primary Subacute dyskinesia due to drugs Anxiety Anxiety state, unspecified documented in this encounter [facility]* Diagnosis Tardive dyskinesia Subacute dyskinesia due to drugs [facility] Diagnosis Tardive dyskinesia- Primary Subacute dyskinesia due to drugs Anxiety Anxiety state, unspecified documented in this encounter [facility]* Diagnosis Tardive dyskinesia- Primary Subacute dyskinesia due to drugs Weight loss Loss of weight Hot flashes Essential hypertension Unspecified essential hypertension documented in this encounter [facility]* Diagnosis Tardive dyskinesia- Primary Subacute dyskinesia due to drugs Weight loss Loss of weight Hot flashes Essential hypertension Unspecified essential hypertension documented in this encounter [facility]* Diagnosis Mild dementia without behavioral disturbance, psychotic disturbance, mood disturbance, or anxiety, unspecified dementia type (HCC)- Primary Tardive dyskinesia Subacute dyskinesia due to drugs documented [facility] encounter [facility]* Diagnosis Mild dementia without behavioral disturbance, psychotic disturbance, mood disturbance, or anxiety, unspecified dementia type (HCC) documented in this encounter [facility]* Diagnosis Recurrent major depressive disorder, in full remission (HCC) documented in this encounter [facility]* Diagnosis Tardive dyskinesia- Primary Subacute dyskinesia due to drugs Anxiety and depression [facility]* Diagnosis Anxiety- Primary Anxiety state, unspecified Tardive dyskinesia Subacute dyskinesia due to drugs Essential hypertension Unspecified essential hypertension Post-menopausal Asymptomatic postmenopausal status (age-related) (natural) Skin lesion Unspecified disorder of skin and subcutaneous tissue documented [facility] this encounter [facility]* Diagnosis 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- Primary documented in this encounter [facility]* Diagnosis Anxiety- Primary Anxiety state, unspecified Recurrent major depressive disorder, in full remission (HCC) Essential hypertension Unspecified essential hypertension documented in this encounter [facility]* Diagnosis Anxiety- Primary Anxiety state, unspecified Recurrent major depressive disorder, in full remission (HCC) documented in this encounter [facility]* Diagnosis 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 documented in this encounter [facility]* Diagnosis Anxiety Anxiety state, unspecified documented in this encounter [facility]* Diagnosis Routine general medical examination [...] tract infection symptoms documented in this encounter [facility]* Diagnosis Well female exam with [...] and stress (male)(female) documented in this encounter [facility]* Diagnosis Well female exam with [...] spondylosis without myelopathy documented in this encounter [facility]* Diagnosis Well female exam with [...] due to drugs documented in this encounter [facility]* Diagnosis Well female exam [...] unspecified location- Primary documented in this encounter [facility] note* Diagnosis Well female exam [...] Recurrent major depressive disorder, in full remission ([facility])- Primary Anxiety Anxiety state, unspecified Class 1 [...] due to drugs documented in this encounter [facility] note* Diagnosis Well female exam [...] Abnormal mammogram, unspecified documented in this encounter [facility]* Diagnosis Well female exam with [...] Unspecified essential hypertension documented in this encounter [facility]* Diagnosis Well female exam with [...] abnormal movement disorder documented in this encounter [facility] Discharge instructions* Attachments The following attachments cannot be sent through Care Everywhere. * Moderate Sedation in Adults Discharge Instructions ([facility]) * Colonoscopy Discharge Instructions ([facility]) documented in this [facility] Discharge instructions* Attachments The following attachments cannot be sent through Care Everywhere. * Radius Fracture Discharge Instructions ([facility]) documented in this [facility]* Attachments The following attachments cannot be sent through Care Everywhere. * Bladder Retraining ([facility]) * Rotator Cuff Tear Exercises ([facility]) documented in this [facility]* Attachments The following attachments cannot be sent through Care Everywhere. * Bladder Retraining ([facility]) * Rotator Cuff Tear Exercises ([facility]) documented in this [facility]* Attachments The following attachments cannot be sent through Care Everywhere. * Bladder Retraining ([facility]) documented in this [facility] for referral (narrative)* Consultation (Urgent) - Pending Review Specialty Diagnoses / Procedures Referred By Scooter mcclure Referred To Contact Neurology Diagnoses Tardive dyskinesia Procedures HI OFFICE/OUTPATIENT [facility] 60-74 MINUTES Adriane Hubbard APRN - CNP [address] [place] [address] [place] [address] [facility] [address] [place] [address] Referral ID Status Reason Start Date Expiration Date Visits Requested Visits Authorized [id number] Pending Review Specialty Services Required 06/19/2023 06/18/2024 1 1 [facility] for referral (narrative)* Consultation (Routine) - Pending Review Specialty Diagnoses / Procedures Referred By Contac t Referred To Contact Dermatology Diagnoses Skin lesion Procedures HI OFFICE/OUTPATIENT NEW HIGH MDM 60 MINUTES Adriane Hubbard APRN - [employer] [address] [place] [address] [facility] Derm [address] [facility] [address] [place] [address] Referral ID Status Reason Start Date Expiration Date Visits Requested Visits Authorized [id number] Pending Review Specialty Services Required 07/08/2024 07/08/2025 1 1 * Consultation (Routine) - Pending Review Specialty Diagnoses / Procedures Referred By Contac t Referred To Contact General Surgery Diagnoses Colon cancer screening Procedures HI OFFICE/OUTPATIENT NEW HIGH MDM 60 MINUTES Adriane Hubbard APRN - [employer] [address] [facility] [place] [address] Terry Bui MD [address] [place] [address] [address] [place] [address] Referral ID Status Reason Start Date Expiration Date Visits Requested Visits Authorized [id number] Pending Review Specialty Services Required 07/08/2024 07/08/2025 1 1 [facility] for visit Narrative* Auth/Cert (Routine) Specialty Diagnoses / Procedures Referred By Contac t Referred To Contact Diagnoses Encounter for screening for malignant neoplasm of colon Encounter for screening for malignant neoplasm of colon Procedures HI COLON CA SCRN NOT HI RSK IND COLONOSCOPY FOR LOW RISK SCREENING Mason Haynes MD [address] [facility] [address] [place] [address] Phone: tel: fax: Referral ID Status Reason Start Date Expiration Date Visits Re quested Visits Authorized [id number] 07/15/2024 1 1 [facility] for visit Narrative* Imaging (Routine) - Closed Specialty Diagnoses / Procedures Referred By Contac t Referred To Contact Radiology Diagnoses Neck pain Cervical myelopathy (HCC) DDD (degenerative disc disease), cervical Cervical spondylosis Procedures MR cervical spine wo contrast Anjel Larsen, [employer] - [employer] [address] [facility] [address] [place] [address] Phone: tel: fax: [facility] [address] [place] [address] Phone: tel: Referral ID Status Reason Start Date Expiration Date Visits Re quested Visits Authorized [id number] Closed 10/30/2024 10/30/2025 1 1 [facility] Narrative* Imaging (Routine) - Closed Specialty Diagnoses / Procedures Referred By Contac t Referred To Contact Cardiology Diagnoses Cardiomyopathy, unspecified type (HCC) Abnormal electrocardiogram (ECG) (EKG) Procedures Transthoracic echocardiogram (TTE) complete with contrast, bubble, strain, and 3D PRN HI ECHO TTHRC R-T 2D W/WOM-MODE COMPL SPEC&COLR D HI TTE W OR WO FOL WCON,DOPPLER Adriane Hubbard, [employer] [address] [facility] [place] [address] Phone: tel: fax: Referral ID Status Reason Start Date Expiration Date Visits Re quested Visits Authorized [id number] Closed 12/08/2024 12/08/2025 1 1 [facility] for visit Narrative* Imaging (Routine) - Closed Specialty Diagnoses / Procedures Referred By Contac t Referred To Contact Radiology Diagnoses Cervical myelopathy (HCC) Procedures MR cervical spine wo contrast Peng Mann MD [address] [facility] [address] [place] [address] Phone: tel: fax: Referral ID Status Reason Start Date Expiration Date Visits Re quested Visits Authorized [id number] Closed 12/08/2024 12/08/2025 1 1 [facility] for visit Narrative* Imaging (Routine) - Closed Specialty Diagnoses / Procedures Referred By Contac t Referred To Contact Radiology Diagnoses Subcutaneous mass of back Procedures MR thoracic spine w and wo contrast Peng Mann MD [address] [facility] [address] [place] [address] Phone: tel: fax: Referral ID Status Reason Start Date Expiration Date Visits Re quested Visits Authorized Closed 06/15/2025 06/15/2026 1 1 [facility] Summary Purpose Family History No Family History Records Found Relationship Condition Age at Onset Recorded Date/T yareli mother Cardiac disease Unknown father Cardiac disease Unknown brother Cardiac disease Unknown Advance Directives No Advanced Directives Records Found Advance Directive Response Recorded Date/ Time Advance Directives Yes April 02 9:25am Living Will No October 11, 2 019 3:14pm Power of Environmental Technology Professor No October 11, 2019 3:14pm Date Activated Date Inactivated Comments 08/11/2024 8:20 AM 08/11/2024 12:29 PM Date Activated Date Inactivated Comments 08/11/2024 8:20 AM 08/11/2024 12:29 PM Documents on File Type Date Recorded 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 Power of Environmental Technology Professor 10/16/2024 2:48 PM Advance Directives and Livin g Will 10/16/2024 2:48 PM Documents on File Type Date Recorded 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 Power of Environmental Technology Professor 10/16/2024 2:48 PM Advance Directives and Livin g Will 10/16/2024 2:48 PM Documents on File Type Date Recorded 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 Advance Directives and Livin g Will 12/05/2024 9:16 PM Power of Environmental Technology Professor 12/05/2024 9:16 PM Power of Environmental Technology Professor 10/16/2024 2:48 PM Advance Directives and Livin g Will 10/16/2024 2:48 PM Documents on File Type Date Recorded 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 Advance Directives and Livin g Will 12/05/2024 9:16 PM Power of Environmental Technology Professor 12/05/2024 9:16 PM Power of Environmental Technology Professor 10/16/2024 2:48 PM Advance Directives and Livin g Will 10/16/2024 2:48 PM Documents on File Type Date Recorded 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 Advance Directives and Livin g Will 12/28/2024 2:15 PM Advance Directives and Livin g Will 12/05/2024 9:16 PM Power of Environmental Technology Professor 12/05/2024 9:16 PM Power of Environmental Technology Professor 10/16/2024 2:48 PM Advance Directives and Livin g Will 10/16/2024 2:48 PM Documents on File Type Date Recorded 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 Advance Directives and Livin g Will 12/28/2024 2:15 PM Advance Directives and Livin g Will 12/05/2024 9:16 PM Power of Environmental Technology Professor 12/05/2024 9:16 PM Power of Environmental Technology Professor 10/16/2024 2:48 PM Advance Directives and Livin [...] bursitis of right [place] [address] Referral ID Status Reason Start Date Expiration Date V isits Requested Visits Authorized [id number] Pending Review 03/26/2023 09/22/2023 1 1 Specialty Diagnoses / Procedures Referred By Scooter mcclure Referred To Contact Orthopedic Surgery / Orthopaedic Surgery Diagnoses Greater trochanteric bursitis of right hip Procedures Large Joint Injection/Arthrocentesis [facility]vencio Davila [facility] [place] [address] Referral ID Status Reason Start Date Expiration Date Visits Re quested Visits Authorized [id number] Closed 03/26/2023 09/22/2023 1 1 Specialty Diagnoses / Procedures Referred By Scooter mcclure Referred To Contact Sleep Medicine Diagnoses TERESA on CPAP Procedures Sleep study with pap titration Juvencio Davila MD [address] [place] [address] Referral ID Status Reason Start Date Expiration Date V isits Requested Visits Authorized [id number] Pending Review 06/03/2023 11/30/2023 1 1 Specialty Diagnoses / Procedures Referred By Contpatrick t Referred To Contact Jie Miranda MD [address] [facility] [place] [address] Referral ID Status Reason Start Date Expiration Date Visits Re quested Visits Authorized [id number] Closed 1 1 Specialty Diagnoses / Procedures Referred By Contac t Referred To Contact Radiology Diagnoses Mild dementia without behavioral disturbance, psychotic disturbance, mood disturbance, or anxiety, unspecified dementia type (HCC) Procedures CT head wo IV contrast Jie Miranda MD [address] [facility] [place] [address] Referral ID Status Reason Start Date Expiration Date Visits Re quested Visits Authorized [id number] Closed 08/01/2023 01/28/2024 1 1 Specialty Diagnoses / Procedures Referred By Contac t Referred To Contact Physical Therapy Diagnoses Gait disorder Procedures HI OFFICE/OUTPATIENT NEW HIGH MDM 60 MINUTES Violet Castellanos APRN - CNP [address] [place] [address] Referral ID Status Reason Start Date Expiration Date Visits Requested Visits Authorized [id number] Pending Review Eval and Treat 04/02/2024 09/29/2024 99 99 Scheduling Instructions Evaluate and treat for gait imbalance Specialty Diagnoses / Procedures Referred By Contac t Referred To Contact Physical Therapy Diagnoses Parkinson's disease without dyskinesia or fluctuating manifestations (HCC) Procedures HI OFFICE/OUTPATIENT NEW HIGH MDM 60 MINUTES Jie Miranda MD [address] [facility] [place] [address] [address] Referral ID Status Reason Start Date Expiration Date Visits Requested Visits Authorized [id number] Pending Review Eval and Treat 07/02/2024 12/29/2024 99 99 Scheduling Instructions Parkinson's disease Additional Source Comments INFORMATION SOURCE (unrecogn ized section and content) DATE CREATED AUTHOR 11/10/2018 [facility] DATE CREATED AUTHOR AUTHOR'S ORGANIZ ATION 08/27/2025 [facility] DATE CREATED AUTHOR AUTHOR'S ORGANIZ ATION 08/28/2025 [facility] Goals (unrecognized section and content) Goals [...] Dates Dr. Juvencio Davila MD Primary Care Provider, Referri ng Provider Active Dr. Ghulam Rosa MD Attending Provider Active Team Status: Active Member Role Status Dates Dr. Juvencio Davila MD Primary Care Provider Active Dr. Ghulam Rosa MD Attending Provider Active Team Status: Inactive Member Role Status Dates Dr. Juvencio Davila MD Primary Care Provider Active Dr. Ghulam Rosa MD Attending Provider Active Nail Galvanizer Relationship Specialty Start Date End Date Juvencio Davila MD [place] [place] [id number] PCP - General 07/29/15 Nail Galvanizer Relationship Specialty Start Date End Date Juvencio Davila MD [place], [place] [id number] PCP - General 07/29/15 Team Status: Inactive Member Role Status Dates Dr. Juvencio Davila MD Primary Care Provider Active Greta Cardoso SHAREPOINT ARCHITECT, SHAREPOINT ARCHITECT-C Attending Provider, Referring Provi camille Active Nail Galvanizer Relationship Specialty Start Date End Date Juvencio Davila [place] [id number] PCP - General 07/29/15 Nail Galvanizer Relationship Specialty Start Date End Date Juvencio Davila MD [address] [place] [address] PCP - General 07/29/15 Nail Galvanizer Relationship Specialty Start Date End Date Juvencio Davila MD [address] [facility] [place] [address] PCP - General 07/29/15 Nail Galvanizer Relationship Specialty Start Date End Date Juvencio Davila MD [address] [facility] [place] [address] PCP - General 07/29/15 Nail Galvanizer Relationship Specialty Start Date End Date Juvencio Davila MD [address] [facility] [place] [address] PCP - General 07/29/15 Nail Galvanizer Relationship Specialty Start Date End Date Juvencio Davila MD [address] [facility] [place] [address] PCP - General 07/29/15 Nail Galvanizer Relationship Specialty Start Date End Date Juvencio Davila MD [address] [facility] [place] [address] PCP - General 07/29/15 Nail Galvanizer Relationship Specialty Start Date End Date Juvencio Davila MD [address] [facility] [place] [address] PCP - General 07/29/15 Nail Galvanizer Relationship Specialty Start Date End Date Juvencio Davila MD [address] [facility] [place] [address] PCP - General 07/29/15 Nail Galvanizer Relationship Specialty Start Date End Date Juvencio Davila MD [address] [facility] [place] [address] PCP - General 07/29/15 Nail Galvanizer Relationship Specialty Start Date End Date Juvencio Davila MD [address] [facility] [place] [address] PCP - General 07/29/15 Nail Galvanizer Relationship Specialty Start Date End Date Juvencio Davila MD [address] [facility] [place] [address] PCP - General 07/29/15 Nail Galvanizer Relationship Specialty Start Date End Date Juvencio Davila MD [address] [facility] [place] [address] PCP - General 07/29/15 Nail Galvanizer Relationship Specialty Start Date End Date Juvencio Davila MD [address] [facility] [place] [address] PCP - General 07/29/15 Nail Galvanizer Relationship Specialty Start Date End Date Juvencio Davila MD [address] [facility] [place] [address] PCP - General 07/29/15 Nail Galvanizer Relationship Specialty Start Date End Date Juvencio Davila MD [address] [facility] [place] [address] PCP - General 07/29/15 Nail Galvanizer Relationship Specialty Start Date End Date Juvencio Davila MD [address] [facility] [place] [address] PCP - General 07/29/15 Nail Galvanizer Relationship Specialty Start Date End Date Juvencio Davila MD 25 [facility] [place] [address] PCP - General 07/29/15 Nail Galvanizer Relationship Specialty Start Date End Date Juvencio Davila MD 25 [facility] [place] [address] PCP - General 07/29/15 Nail Galvanizer Relationship Specialty Start Date End Date Juvencio Davila MD 25 [facility] [place] [address] PCP - General 07/29/15 Nail Galvanizer Relationship Specialty Start Date End Date Juvencio Davila MD [facility] [place] [address] PCP - General 07/29/15 Nail Galvanizer Relationship Specialty Start Date End Date Juvencio Davila MD [address] [facility] [place] [address] PCP - General 07/29/15 Nail Galvanizer Relationship Specialty Start Date End Date Juvencio Davila MD [address] [facility] [place] [address] PCP - General 07/29/15 Nail Galvanizer Relationship Specialty Start Date End Date Juvencio Davila MD [address] [facility] [place] [address] PCP - General 07/29/15 Nail Galvanizer Relationship Specialty Start Date End Date Juvencio Davila MD [address] [facility] [place] [address] PCP - General 07/29/15 Nail Galvanizer Relationship Specialty Start Date End Date Juvencio Davila MD [address] [facility] [place] [address] PCP - General 07/29/15 Nail Galvanizer Relationship Specialty Start Date End Date Juvencio Davila MD [address] [facility] [place] [address] PCP - General 07/29/15 Nail Galvanizer Relationship Specialty Start Date End Date Juvencio Davila MD [address] [facility] [place] [address] PCP - General 07/29/15 Nail Galvanizer Relationship Specialty Start Date End Date Juvencio Davila MD [address] [facility] [place] [address] PCP - General 07/29/15 Nail Galvanizer Relationship Specialty Start Date End Date Juvencio Davila MD [address] [facility] [place] [address] PCP - General 07/29/15 Nail Galvanizer Relationship Specialty Start Date End Date Juvencio Davila MD [address] [facility] [place] [address] PCP - General 07/29/15 Nail Galvanizer Relationship Specialty Start Date End Date Juvencio Davila MD 25 [facility] [place] [address] PCP - General 07/29/15 Nail Galvanizer Relationship Specialty Start Date End Date Juvencio Davila MD 25 [place] [address] PCP - General 07/29/15 Nail Galvanizer Relationship Specialty Start Date End Date Juvencio Davila MD 25 [place] [address] PCP - General 07/29/15 Nail Galvanizer Relationship Specialty Start Date End Date Juvencio Davila MD 25 [place] [address] PCP - General 07/29/15 Nail Galvanizer Relationship Specialty Start Date End Date Juvencio Davila MD 25 [place] [address] PCP - General 07/29/15 Nail Galvanizer Relationship Specialty Start Date End Date Juvencio Davila MD 25 [place] [address] PCP - General 07/29/15 Nail Galvanizer Relationship Specialty Start Date End Date Juvencio Davila MD 25 [place] [address] PCP - General 07/29/15 Nail Galvanizer Relationship Specialty Start Date End Date Juvencio Davila MD [address] [facility] [place] [address] PCP - General 07/29/15 Nail Galvanizer Relationship Specialty Start Date End Date Juvencio Davila MD 25 [facility] [place] [address] PCP - General 07/29/15 Nail Galvanizer Relationship Specialty Start Date End Date Juvencio Davila MD 25 [facility] [place] [address] PCP - General 07/29/15 Nail Galvanizer Relationship Specialty Start Date End Date Juvencio Davila MD [facility] [place] [address] PCP - General 07/29/15 Nail Galvanizer Relationship Specialty Start Date End Date Juvencio Davila MD [facility] [place] [address] PCP - General 07/29/15 Nail Galvanizer Relationship Specialty Start Date End Date Juvencio Davila MD [address] [facility] [place] [address] PCP - General 07/29/15 Nail Galvanizer Relationship Specialty Start Date End Date Juvencio Davila MD [address] [facility] [place] [address] PCP - General 07/29/15 Nail Galvanizer Relationship Specialty Start Date End Date Juvencio Davila MD [address] [facility] [place] [address] PCP - General 07/29/15 Nail Galvanizer Relationship Specialty Start Date End Date Juvencio Davila MD [address] [facility] [place] [address] PCP - General 07/29/15 Nail Galvanizer Relationship Specialty Start Date End Date Juvencio Davila MD [address] [facility] [place] [address] PCP - General 07/29/15 Nail Galvanizer Relationship Specialty Start Date End Date Juvencio Davila MD [address] [facility] [place] [address] PCP - General 07/29/15 Nail Galvanizer Relationship Specialty Start Date End Date Juvencio Davila MD [address] [facility] [place] [address] PCP - General 07/29/15 Nail Galvanizer Relationship Specialty Start Date End Date Juvencio Davila MD [address] [facility] [place] [address] PCP - General 07/29/15 Nail Galvanizer Relationship Specialty Start Date End Date Juvencio Davila MD [address] [facility] [place] [address] PCP - General 07/29/15 Nail Galvanizer Relationship Specialty Start Date End Date Juvencio Davila MD [address] [facility] [place] [address] PCP - General 07/29/15 Nail Galvanizer Relationship Specialty Start Date End Date Juvencio Davila MD 25 [facility] [place] [address] PCP - General 07/29/15 Nail Galvanizer Relationship Specialty Start Date End Date Juvencio Davila MD 25 [facility] [place] [address] PCP - General 07/29/15 Nail Galvanizer Relationship Specialty Start Date End Date Juvencio Davila MD 25 [place] [address] PCP - General 07/29/15 Nail Galvanizer Relationship Specialty Start Date End Date Juvencio Davila MD 25 [place] [address] PCP - General 07/29/15 Nail Galvanizer Relationship Specialty Start Date End Date Juvencio Davila MD 25 [facility] [place] [address] PCP - General 07/29/15 Nail Galvanizer Relationship Specialty Start Date End Date Juvencio Davila MD 25 [facility] [place] [address] PCP - General 07/29/15 Nail Galvanizer Relationship Specialty Start Date End Date Juvencio Davila MD 25 [facility] [place] [address] PCP - General 07/29/15 Nail Galvanizer Relationship Specialty Start Date End Date Juvencio Davila MD [address] [facility] [place] [address] PCP - General 07/29/15 Nail Galvanizer Relationship Specialty Start Date End Date Juvencio Davila MD [address] [facility] [place] [address] PCP - General 07/29/15 Nail Galvanizer Relationship Specialty Start Date End Date Juvencio Davila MD [address] [facility] [place] [address] PCP - General 07/29/15 Nail Galvanizer Relationship Specialty Start Date End Date Juvencio Davila MD [address] [facility] [place] [address] PCP - General 07/29/15 Nail Galvanizer Relationship Specialty Start Date End Date Juvencio Davila MD [address] [facility] [place] [address] PCP - General 07/29/15 Nail Galvanizer Relationship Specialty Start Date End Date Juvencio Davila MD 25 [facility] [place] [address] PCP - General 07/29/15 Adriane Hubbard APRN - DIONY [address] [facility] [place] [address] Nurse Practitioner Nurse Practitioner Family 06/24/25 Nail Galvanizer Relationship Specialty Start Date End Date Juvencio Davila MD [address] [facility] [place] [address] PCP - General 07/29/15 Adriane Hubbard APRN - CNP [address] [place] [address] Nurse Practitioner Nurse Practitioner Family 06/24/25 Nail Galvanizer Relationship Specialty Start Date End Date Juvencio Davila MD [address] [place] [address] PCP - General 07/29/15 Adriane Hubbard APRN - CNP [address] [place] [address] Nurse Practitioner Nurse Practitioner Family 06/24/25 Nail Galvanizer Relationship Specialty Start Date End Date Juvencio Davila MD [address] [place] [address] PCP - General 07/29/15 Adriane Hubbard APRN - CNP [address] [place] [address] Nurse Practitioner Nurse Practitioner Family 06/24/25 Reason for Visit (unrecogniz ed section and content) Reason Comments Med Refill Reason Comments Hip Pain Right hip- asking fo r inj Specialty Diagnoses / Procedures Referred By Scooter t Referred To Contact Diagnoses Greater trochanteric bursitis of right hip Juvencio Davila MD [address] [place] [address] Referral ID Status Reason Start Date Expiration Date V isits Requested Visits Authorized [id number] Pending Review 03/26/2023 09/22/2023 1 1 Reason [...] To Contact Neurology Diagnoses Tardive dyskinesia Procedures HI OFFICE/OUTPATIENT NEW HIGH MDM 60-74 MINUTES Adriane Hubbard, DEPARTMENT [employer] [address] [place] [address] [place] [address] [facility] [address] [place] [address] [place] [address] Referral ID Status Reason Start Date Expiration Date Visits Requested Visits Authorized [id number] Pending Review Specialty Services Required 06/19/2023 06/18/2024 [...] wo IV contrast Jie Miranda MD [address] [facility] [facility] [place] [address] Referral ID Status Reason Start Date Expiration Date Visits Re quested Visits Authorized [id number] Closed 08/01/2023 01/28/2024 1 1 Reason Onset [...] lumbar region with discogenic back pain Procedures HI OFFICE/OUTPATIENT NEW HIGH MDM 60 MINUTES Adriane Hubbard, DEPARTMENT [employer] [address] [facility] [place] [address] Phone: tel: fax: Anjel Larsen, DEPARTMENT [employer] 1 [facility] [address] [place] [address] Phone: tel: fax: Referral ID Status Reason Start Date Expiration Date V isits Requested Visits Authorized [id number] Closed Specialty Services Required 10/22/2024 10/22/2025 1 [...] Visit Jose t Health Maintenance Bone Density Scan-NH EDS TO SCHEDULE Derm Melanoma Skin Check-needs [...] head of right radius, initial encounter Procedures HI OFFICE/OUTPATIENT NEW HIGH MDM 60 MINUTES Bud Malik DO [address] [place] [address] Phone: tel: fax: Mook Rivera MD 1 [facility] [address] [place] [address] Phone: tel: fax: Referral ID Status Reason Start Date Expiration Date V isits Requested Visits Authorized [id number] Closed Specialty Services Required 12/05/2024 12/05/2025 1 [...] BE BASED ON THE PRIMARY CLINICAL RECORDS. [facility]. provides no warranty or guarantee of the accuracy or completeness of information in this document.
--- OUTSIDE RECORDS SUMMARY | 2025-09-11 22:49 | XMS RPT_ITS | CCD ---
Author Organization [facility] CliniSyms Care Team Providers Care Family Advocate Name Role Phone Juvencio Davila Attending Unavailable PROVIDER, UNKNOWN Referring Unavailable Marta, Juvencio Primary Care Unavailable Dr. Juvencio Davila Primary Care Provider Dr. Juvencio Davila Referring Provider Krystal DIGITAL ACCOUNT MANAGER, DIGITAL ACCOUNT MANAGER-Patrice Dunn Attending Provider Dr. Juvencio Davila Primary Care Provider Dr. Juvencio Davila Referring Provider [phone] Dr. Ghulam Rosa Attending Provider [phone] Juvencio Davila MD Primary Care Provider Juvencio Davila MD Primary Care Provider Bridenthal MECHANICAL SYSTEMS DESIGNER - POWER AND RECOVERY SHIFT ENGINEER, Adriane Unavailable MARTA JUVENCIO Primary Care Unavailable [...] cariprazine (2 sources) cariprazine Drug Allergy 05-24-2023 [facility] (20 sources) cariprazine Drug Allergy 05-24-2023 [facility] (1 source) cariprazine Drug Allergy 08-23-2025 [facility] Repository Medications Current Medications Medication Drug [...] hours as needed for pain HYDROcodone-acetami nophen ([place]) 5-325 MG tablet Indications: Closed fracture of [...] LFT while on iv abx. Fax to [phone] fenofibrate 54 mg oral tablet (3 sources) [...] IntraVENous, IMG once PRN, contrast, Starting on [facility] 07/22/25 at 1522, For 1 dose [...] Range Facility 36on 08-25-2025 36 Rx Normal [facility] 36 Rx sent Normal [facility] 36 Prescription Request : Last medication check: 02/10/24 Last physical exam: 12/08/24 Next scheduled appointment: 10/12/25 Last date of refill on this medication - 08/13/22 lisinopril 2.5mg I am not sure we prescribe for her 03/02/25 metoprolol 90 and 1 refill Normal [facility] 36 Prescription Request : Last medication check: 02/10/24 Last physical exam: 12/08/24 Next scheduled appointment: 10/12/25 Last date of refill on this medication 03/08/25 90 and 1 refill Normal [facility] MR/BMS.BPon 08-23-2025 MR/BMS.BP [address], [address] [place] [address] OFFICE VISIT Date of Service: 08/23/25 MR#: [id number] Acct: [id number] Name: KAMILA JOSEPH Rep #: [id number] : 1955 Provider: Dr. Andrew Cobian se, Age/Sex: 70/F [place] [facility] Status: Signed Intake Vital Signs 05/06/25 09:32 08/23/25 13:01 Height 5 ft 2 in 5 ft 2 in Weight: 186 lb BMI 34.0 BP 128/82 H Blood Pressure Location Lt brachial Position Sitting Respiration 16 Pulse 91 Pulse Source Monitor BP Intake Visit Reasons: 3 M FU Accompanied by: Daughter Allergies cariprazine (From [facility]) Allergy (Mild, Verified 08/23/25 13:07) DIZZINESS Medications [...] in the past year?: Yes (broken elbow) [facility] Medical History MDD (major depressive disorder) [...] Psych Appearan (more content not included)... Normal [facility] Extremity Upper without Cont raon 08-20-2025 Extremity Upper without Contra [facility] [address] [place], [place] [id number] Extremity Upper without Contra MR#: [id number] Acct: [id number] Name: KAMILA JOSEPH Rep #: [id number] : 1955 F 70 From: Clarke De Leon MD PCP: Dr. Juvencio Davila MD Status: REG CLI Study: Extremity Upper without Contra Date of Exam: 1 Exam# [id number] Ordering Dr: Talya Smith PROCEDURE: EXTREMITY UPPER [...] Radial head fracture as above. Reading Location: [id number] CC: Dr. Juvencio Davila MD; ROEL Griffith Alarm Signaler: Signed Normal [facility] Ankle min 3 Viewson 08-15-20 Ankle min 3 Views [facility] [address] [place] [address] Ankle min 3 Views MR#: [id number] Acct: [id number] Name: KAMILA JOSEPH Rep #: [id number] : 1955 F 70 From: Bolivar Stevens MD PCP: Dr. Juvencio Davila MD Status: REG ER Study: Ankle min 3 Views Date of Exam: 08/15/25 Exam# [id number] Ordering Dr: Reid Lambert DO PROCEDURE: FOOT [...] abnormality of the right foot. Reading Location: [id number] CC: Dr. Reid Lambert DO; Dr. Juvencio Davila MD Alarm Signaler: Signed Normal [facility] Elbow min 3 Viewson 08-15-20 Elbow min 3 Views [facility] [address] [place] [id number] Elbow min 3 Views MR#: [id number] Acct: [id number] Name: KAMILA JOSEPH Rep #: [id number] : 1955 F 70 From: Bolivar Stevens MD PCP: Dr. Juvencio Davila MD Status: REG ER Study: Elbow min 3 Views Date of Exam: 08/15/25 Exam# [id number] Ordering Dr: Reid Lambert DO PROCEDURE: ELBOW [...] Views IMPRESSION: Radial head fracture. Reading Location: [facility] CC: Dr. Reid Lambert DO; Dr. Juvencio Davila MD Alarm Signaler: Signed Normal [facility] Emergency Department Summary on 08-15-2025 Emergency Department Summary [facility] Medical Records Department [address] [place] [address] Emergency Department Summary 08/15/25 MR#: [id number] Acct: [id number] Name: KAMILA JOSEPH Rep #: [id number] : 1955 70 From: Reid Lambert DO [...] She denies any neck or back pain. [facility] Medical History MDD (major depressive disorder) Major [...] Reaction Status Date / Time cariprazine (From [facility]) Allergy Mild DIZZINESS Verified 08/15/25 14:05 Family [...] bilaterally Neck (more content not included)... Normal [facility] Foot min 3 Viewson Foot min 3 Views [facility] [address] [place], [place] [address] Foot min 3 Views MR#: [id number] Acct: [id number] Name: KAMILA JOSEPH Rep #: [id number] : 1955 F 70 From: Bolivar Stevens MD PCP: Dr. Juvencio Davila MD Status: REG ER Study: Foot min 3 Views Date of Exam: 08/15/25 Exam# [id number] Ordering Dr: Reid Lambert DO PROCEDURE: FOOT [...] abnormality of the right foot. Reading Location: [id number] CC: Dr. Reid Lambert DO; Dr. Juvencio Davila MD Alarm Signaler: Signed [facility] Wrist min 3 Viewson 08-15-20 Wrist min 3 Views [facility] [address] [facility] [place], [place] [address] Wrist min 3 Views MR#: [id number] Acct: [id number] Name: KAMILA JOSEPH Rep #: [id number] : 1955 F 70 From: Bolivar Stevens MD PCP: Dr. Juvencio Davila MD Status: REG ER Study: Wrist min 3 Views Date of Exam: 08/15/25 Exam# [id number] Ordering Dr: Reid Lambert DO PROCEDURE: WRIST [...] abnormality of the right wrist. Reading Location: [id number] CC: Dr. Reid Lambert DO; Dr. Juvencio Davila MD Alarm Signaler: Signed [facility] 36on 08-09-2025 36 Please schedule patient for follow up appointment for continued refills. Requested Prescriptions Signed Prescriptions Disp Refills valbenazine tosylate (Ingrezza) 40 MG capsule 30 capsule 1 Sig: Take 1 capsule (40 mg) by mouth daily. Authorizing Provider: VIOLET CASTELLANOS [facility] 36on 06-24-2025 36 Reviewed chart. Refi ll appropriate. RX sent. [facility] 36 Prescription Request : SIMVASTATIN 40 MG TABLET Last medication check: 03/08/25 Last physical exam 12/08/24 Next scheduled appointment: 10/12/25 Last date of refill on this medication 01/01/25 ( qty 90 refill 1) [facility] 36on 06-15-2025 36 Could we please orde cynthia a thoracic MRI based radiologist recommendation. When she has that obtained, we can do a telephone visit to review her MRI results. [facility] 36on 05-06-2025 36 Name of Caller: Leanna Contact Reason for Appointment: Daughter will call back to schedule the 05/06/25 missed appointment when she is able to check transportation for Blenda. Please be advised. Office Name: PL Neuro [facility] MR/BMS.BP 05-06-2025 MR/BMS.BP [address], [place] [address] OFFICE VISIT Date of Service: 05/06/25 MR#: [id number] Acct: [id number] Name: KAMILA JOSEPH Rep #: [id number] : 1955 Provider: Dr. Andrew Cobian se, DO Age/Sex: 69/F [place] [facility] Status: Signed Intake Vital Signs 03/09/25 13:38 [...] year?: Yes (Broken elbow torn rotator cuff) [facility] Medical History (Updated 06/09/24 @ 12:40 [...] coherent Thought C (more content not included)... [facility] 05-03-2025 36 Requested Prescriptions Signed Prescriptions Disp Refills valbenazine tosylate (Ingrezza) 40 MG capsule 30 capsule 3 Sig: Take 1 capsule (40 mg) by mouth daily. Authorizing Provider: VIOLET CASTELLANOS [facility] 04-09-2025 36 Filled to requesting pharmacy on 12/23/2024 for 6-month supply. Should not be due for refill until June. [facility] 03-12-2025 36 Called and spoke luke Ram whom is the patient's daughter and POA. Notified I will send a prescription for Bactrim and a one-time dose of Diflucan into the pharmacy. Recommend follow-up in the office if symptoms are not improving. [facility] Progress Noteon 03-12-2025 Progress Note Called and spoke luke Ram whom is the patient's daughter and POA. Notified I will send a prescription for Bactrim and a one-time dose of Diflucan into the pharmacy. Recommend follow-up in the office if symptoms are not improving. [facility] MR/BMS.BPon 03-09-2025 MR/BMS.BP [address], [address] [place] [address] OFFICE VISIT Date of Service: 03/09/25 MR#: [id number] Acct: [id number] Name: KAMLIA JOSEPH Rep #: [id number] : 1955 Provider: Dr. Andrew Cobian se, DO Age/Sex: 69/F [place] [facility] Status: Signed Intake Vital Signs 12/08/24 13:00 03/09/25 13:38 Height 5 ft 2 in 5 ft 2 in Weight: 182 lb BMI 33.3 BP 124/84 H 118/71 Blood Pressure Location Lt brachial Lt brachial Position Sitting Sitting Respiration 16 16 Pulse 77 66 Pulse Source Monitor Monitor BP Intake Visit Reasons: 3 M FU Accompanied by: Self Allergies cariprazine (From [facility]) Allergy (Mild, Verified 03/09/25 13:40) DIZZINESS Medications [...] in the past year?: Yes (Intermittent instability) [facility] Medical History (Updated 06/09/24 @ 12:40 [...] since November but is going back to [place] next week. Is feeling very bored. Is [...] and coherent (more content not included)... Normal [facility] 36on 03-08-2025 36 Reviewed chart. Refi ll appropriate. RX sent. [facility] 36 Prescription Request : FOLIC ACID 1 MG TABLET Last medication check: 12/08/24 Last physical exam: 12/08/24 Next scheduled appointment: 03/08/25 Last date of refill on this medication 09/03/24 ( qty 90 refill 1) [facility] Office Visiton 03-08-2025 Follow-up visit [id number] Ras Joseph 1955 F Date Provider Department Center 03/08/2025 [id number] HUBBARD [facility] Family History Problem Relation Age of Onset Substance Abuse Mother Heart disease Mother Heart disease Father Prostate cancer Father Breast cancer Mother's Sister Family Status - Relation Status Age at Mother Alive Father Mother's Sister Level of Service:29032 [place] OFFICE/OUTPATIENT ESTABLISHED MOD MDM 30 MIN Reason for Visit and Comments: Medication Check [[id number]] Health Maintenance [872] - ?Derm Melanoma Skin Check-NEEDS COMPLETED ?Depression Monitoring-completed [facility] Progress Noteon 03-08-2025 Progress Note Stable. Followed by cardiology continue current medications [facility] Progress Note Controlled. Blood pressure 117/72, continue metoprolol 25 mg daily and lisinopril 2.5 mg daily [facility] Progress Note Follow-up with psychiatry as directed [facility] Progress Note Patient wearing CPAP nightly. Reports good sleep and feels well rested during the daytime. [facility] Progress Note Stable. Continue to follow-up with psychiatry and neurology [facility] Progress Note Improving. Continue follow-up with neurology [facility] Progress Note Patient was identifi ed by name and Date of . Health Maintenance Due Topic Derm Melanoma Skin Check-NEEDS COMPLETED Depression Monitoring-completed SDOH/ELIZABETH/PHQ-need completed-sent via [facility] AWV/fasting labs---needs scheduled for 11/2025 [facility] Progress Note 03/08/2025 Kamila Joseph (: 1955) [...] to authenticate this note. Adriane Navarrete Magdaleno, MECHANICAL SYSTEMS DESIGNER - POWER AND RECOVERY SHIFT ENGINEER 03/08/2025 4:54 PM [1] Current Outpatient Medications [...] 40 MG cap (more content not included)... [facility] 36on 03-05-2025 36 Leanna notified. No further action needed. Closing encounter. [facility] 36 Requested Prescriptions Signed Prescriptions Disp Refills amantadine (Symmetrel) 100 MG tablet 180 tablet 3 Sig: Take 1 tablet (100 mg) by mouth 2 times daily. Authorizing Provider: VIOLET CASTELLANOS [facility] 36 Name of caller: Leanna Contact phone number: [phone] Relationship to Patient: family member daughter Provider: Dr Miranda Practice: Neurology Chief Complaint/Reason for Call: Leanna called stating that she called [facility] for a refill on patients amantadine (Symmetrel) 100 MG tablet and was told that medication had been discontinued. Script was sent to the [facility] and Leanna stated it should have gone to the [facility] on file. Please advise. Best time of day caller can be reached: Any Patient advised that office/PCP has 24-48 business hours to return their call: N/A Normal [facility] 36on 03-02-2025 36 Prescription Request : METOPROLOL SUCC ER 25 MG TAB Last medication check: 12/08/24 Last physical exam: 12/08/24 Next scheduled appointment: 03/08/25 Last date of refill on this medication 09/07/24 ( qty 90 refill 1) [facility] 36on 02-10-2025 36 Called and spoke luke Ram, patient's POA. Informed her of normal mammogram results [facility] 36 ----- Message from SOO Grant CNP sent at 02/10/2025 1:50 PM EDT ----- Mammogram - negative Recommend routine screening mammogram bilateral in 1 year Normal [facility] DBT Breast - left diagnostic on 02-10-2025 No mammographic evidence of malignancy in the left breast. Markings on images: BB's = Nipples; skin lesions Open solomon = Palpable Line = Scar ASSESSMENT: Category [...] Electronically Signed Date/Time: 02/10/2025 1:22 PM EDT [facility] [employer] SYSTEM Patient Name: KAMILA JOSEPH : 1955 Exam Date/Time: 02/10/2025 12:58 Procedure: BI MAMMOGRAM DIAGNOSTIC TOMOSYNTHESIS LEFT Ordering Provider: HUBBARD REBECCA Reason For Exam: This exam was performed at [place] [address] [address] [place] [address] PATIENT CANCER HISTORY: No Personal History of [...] distortions, or suspiciously clustered microcalcifications were seen. [facility] Oscar Elizabeth MD - 02/10/2025 Patient Name: KAMILA JOSEPH : 1955 Exam Date/Time: 02/10/2025 12:58 Procedure: BI MAMMOGRAM DIAGNOSTIC TOMOSYNTHESIS LEFT Ordering Provider: HUBBARD REBECCA Reason For Exam: This exam was performed at [place] [address] [address] [place] [address] PATIENT CANCER HISTORY: No Personal History of [...] images: BB's = Nipples; skin lesions Open solomon = Palpable Line = Scar ASSESSMENT: Category [...] Electronically Signed Date/Time: 02/10/2025 1:22 PM EDT [facility] Radiology Study observation (narrative) [facility] DBT Breast - left diagnostic Ordered By: Oscar Elizabeth on 02-10-2025 [employer] Work Phone: Office Visiton 02-10-2025 Follow-up visit [id number] Ras Joseph 1955 F Date Provider Department Center 02/10/2025 [id number] MIRANDA [facility] None Family History Problem Relation Age of Onset Substance Abuse Mother Heart disease Mother Heart disease Father Prostate cancer Father Breast cancer Mother's Sister Family Status - Relation Status Age at Mother Alive Father Mother's Sister Level of Service:26927 [place] OFFICE/OUTPATIENT ESTABLISHED LOW MDM 20 MIN Reason for Visit and Comments: Follow-up [386534] - Neuroleptic - induced tardive dyskinesia Normal [facility] [employer] [facility] Progress Noteon 02-10-2025 Progress Note Department [...] Gastrointestinal: Negativ (more content not included)... [facility] 36on 01-06-2025 36 Requested Prescriptions Signed Prescriptions Disp Refills valbenazine tosylate (Ingrezza) 40 MG capsule 30 capsule 3 Sig: Take 1 capsule (40 mg) by mouth daily. Authorizing Provider: VIOLET CASTELLANOS [facility] 36on 01-04-2025 36 We would be happy [...] both myself and their primary care physician. [facility] 36on 01-01-2025 36 Rx sent. Follow up a s scheduled. [facility] 36 Prescription Request : Last medication check: 12-23-24 Last physical exam: 2=18-25 Next scheduled appointment: 03-08-25 Last date of refill on this medication 07-06-24 [facility] Office Visiton 01-01-2025 Follow-up visit [id number] Ras Joseph 1955 F Date Provider Department Center 01/01/2025 [id number] [facility]AMP[facility] P None Family History Problem Relation Age of Onset Substance Abuse Mother Heart disease Mother Heart disease Father Prostate cancer Father Breast cancer Mother's Sister Family Status - Relation Status Age at Mother Alive Father Mother's Sister Level of Service:94781 [place] OFFICE/OUTPATIENT ESTABLISHED MOD MDM 30 MIN Reason for Visit and Comments: Follow-up [890543] - 1 month follow up [facility] Progress Noteon 01-01-2025 Progress Note Department of [...] speak to. Agreeable to further testing. [facility] 36 ----- Message from SOO Grant CNP sent at 12/28/2024 5:01 PM EDT ----- Mammogram- asymmetry noted in the left breast, recommend diagnostic mammogram left with left breast ultrasound to further evaluate. [facility] DBT Breast - bilateral scree ningOrdered By: Jackeline Bolton on 12-28-2024 Interpretation and review of laboratory results Abnormal [facility] [employer] Work Phone: [facility] Phone: DBT Breast - bilateral scree ningon [...] Electronically Signed Date/Time: 12/28/2024 4:22 PM EDT [facility] Patient Name: KAMILA JOSEPH : 1955 Exam Date/Time: 12/28/2024 14:17 Procedure: BI MAMMOGRAM SCREENING TOMOSYNTHESIS BILATERAL Ordering Provider: HUBBARD REBECCA Reason For Exam: This exam was performed at [facility] [address] [place] [address] PATIENT CANCER HISTORY: No Personal History of Cancer FAMILY CANCER HISTORY: Father Prostate Cancer Maternal Aunt Breast Cancer Image views: 2D Bilateral CC and MLO views were acquired. 3D Bilateral CC and MLO views were acquired. Images were reviewed with CAD. Markings on images: BB's = Nipples; skin lesions Open solomon = Palpable Line = Scar COMPARISON: 10/31/2018, [...] is no skin thickening or nipple retraction. [facility] EM[facility]PART[facility] RADIOLOGY SYSTEM Jackeline Bolton MD - 12/28/2024 [facility] Name: [facility] 1955 [id number] Exam Date/Time: 12/28/2024 14:17 Procedure: BI MAMMOGRAM SCREENING TOMOSYNTHESIS BILATERAL Ordering Provider: HUBBARD REBECCA Reason For Exam: This exam was performed at [facility] [address] [facility] [address] PATIENT CANCER HISTORY: No Personal History of Cancer FAMILY CANCER HISTORY: Father Prostate Cancer Maternal Aunt Breast Cancer Image views: 2D Bilateral CC and MLO views were acquired. 3D Bilateral CC and MLO views were acquired. Images were reviewed with CAD. Markings on images: BB's = Nipples; skin lesions Open solomon = Palpable Line = Scar COMPARISON: 10/31/2018, [...] Electronically Signed Date/Time: 12/28/2024 4:22 PM EDT [facility] Radiology Study observation (narrative) [facility] 12-23-2024 29 Addended by: ADRIANE HUBBARD on: 12/23/2024 09:42 AM Modules accepted: Orders [facility] 12-23-2024 36 New rx sent [place] [address] Pharmacy does not stock the 500-5 mg-mcg tablets; they can provide 600-5 mg-mcg. Please advise, can we send new rx? [facility] 36 Name of caller: Ross davenport @ [facility] location Contact phone number: [phone] Relationship to Patient: Pharmacy Provider: Adriane Hubbard Practice: [facility] Chief Complaint/Reason for Call: The following was called in to [facility] for patient 12/22/24: Calcium Carb-Cholecalciferol 500-5 MG-MCG tablet tablet [[id number]] Order Details Dose: 2 tablet Route: Oral Frequency: Daily Dispense Quantity: 60 tablet Refills: 5 Sig: Take 2 tablets by mouth daily. Pharmacy does not stock the 500-5 mg-mcg tablets; they can provide 600-5 mg-mcg. Please advise if okay to change. Best time of day caller can be reached: any Patient advised that office/PCP has 24-48 business hours to return their call: No [facility] 12-22-2024 36 Notified, Leanna is asking for you to send this to [facility] as a prescription since her insurance should pay for some of it if not all of it. ----- Message from SOO Grant CNP sent at 12/22/2024 7:16 AM EST ----- Dexa Scan shows osteopenia. Recommend calcium 1200 mg/day and vit d 2,000 international units daily, weight bearing exercise. Repeat dexa in 2-3 years Normal [facility] DEXA BONE DENSITY AXIAL SKEL ETONon 12-21-2024 [...] dual energy x-ray observed absorptiometry device - HoloBudgetSimple W. Regions of interest were obtained through [...] Electronically Signed Date/Time: 12/21/2024 4:44 PM EST [facility] [employer] [facility] DXA Skeletal system.axial Vi ews [...] Electronically Signed Date/Time: 12/21/2024 4:44 PM EST [facility] EM[facility] RADIOLOGY SYSTEM Patient Name: KAMILA JOSEPH : 1955 Exam Date/Time: 12/21/2024 12:19 Procedure: DEXA BONE DENSITY AXIAL SKELETON Ordering Provider: HUBBARD REBECCA Reason For Exam: bone density screening DEXA BONE DENSITOMETRY: CLINICAL INDICATION: Osteoporosis screening COMPARISON: None TECHNIQUE: Quantitative bone mineral densitometry of the hip and lumbar spine was performed with a dual energy x-ray observed absorptiometry device - HoloBudgetSimple W. Regions of interest were obtained through [...] 0.3 Z-score: 1.7 Comparison from prior examination:N/A [facility] EM[facility] RADIOLOGY SYSTEM Sarabjit Starks MD - 12/21/2024 [...] dual energy x-ray observed absorptiometry device - HoloGoBeMe Horizon W. Regions of interest were obtained [...] Electronically Signed Date/Time: 12/21/2024 4:44 PM EST [facility] [employer] [facility] Radiology Study observation (narrative) [facility] DXA Skeletal system.axial Vi ews for bone densityOrdered By: Sarabjit Starks on 12-21-2024 [facility] Work Phone: US Heart TransthoracicOrdere d By: Gen West on 12-21-2024 Aortic Arch 3.2 cm [facility] [facility] Work Phone: Aortic Sinus Valsalva 3.3 cm [place] [employer] Work Phone: Aortic Sinus Valsalva Index 1.79 cm/m2 [facility] [facility] Work Phone: Aortic valve Orifice area by US 2.8 cm2 [facility] Work Phone: Ascending Aorta 3.[address] [facility] Work Phone: Ascending Aorta Index 1.96 cm/m2 [place] [employer] Work Phone: E/E' Lateral 14.5 [facility] Work Phone: E/E' Ratio (Averaged) 15.95 Sum [facility] Work Phone: E/E' Septal 17.4 [facility] [employer] Work Phone: Est. RA Pressure 3 mmHg [facility] Work Phone: Fractional Shortening 2D 29 % 28 - 44 % [facility] [employer] Work Phone: Global Longitudinal Strain -16.9 % [facility] [employer] Work Phone: Interpretation and review of laboratory results Abnormal [facility] [employer] Work Phone: IVC Diameter 1.5 cm [facility] [employer] Work Phone: IVSd 1.1 cm Abnormal 0.6 - 0.9 cm [facility] [employer] Work Phone: LA Diameter 4 cm [facility] [employer] Work Phone: LA Size Index 2.17 cm/m2 [facility] Work Phone: LA Volume 2C 38 mL 22 - 52 mL [facility] Work Phone: LA Volume 4C 45 mL 22 - 52 mL [facility] Work Phone: LA Volume A/L 44 mL [facility] Work Phone: LA Volume BP 42 mL 22 - 52 mL [facility] Work Phone: LA Volume Index 2C 21 mL/m2 16 - 34 mL/m2 [facility] Work Phone: LA Volume Index 4C 24 mL/m2 16 - 34 mL/m2 [facility] Work Phone: [phone] LA Volume Index A/L 24 mL/m2 16 - 34 mL/m2 [facility] Work Phone: [phone] LA Volume Index BP 23 ml/m2 16 - 34 ml/m2 [facility] Work Phone: [phone] Left ventricular Ejection fraction by US.2D+Calculated by biplane method of disks 65 % 55 - 100 % [facility] Work Phone: LV E' Lateral Velocity 6 cm/s [facility] Work Phone: LV E' Septal Velocity 5 cm/s [facility] Work Phone: LV EDV A2C 71 mL [facility] Work Phone: LV EDV A4C 78 mL [facility] Work Phone: LV EDV BP 78 mL 56 - 104 mL [facility] Work Phone: LV EDV Index A2C 39 mL/m2 [facility] Work Phone: LV EDV Index A4C 42 mL/m2 [facility] Work Phone: LV EDV Index BP 42 mL/m2 [facility] Work Phone: LV Ejection Fraction A2C 63 % [facility] Work Phone: LV Ejection Fraction A4C 63 % [facility] Work Phone: LV ESV A2C 27 mL [facility] Work Phone: LV ESV A4C 29 mL [facility] Work Phone: LV ESV BP 28 mL 19 - 49 mL [facility] Work Phone: LV ESV Index A2C 15 mL/m2 [facility] Work Phone: LV ESV Index A4C 16 mL/m2 [facility] Work Phone: LV ESV Index BP 15 mL/m2 [facility] Work Phone: LV Mass 2D 171.7 g Abnormal 67 - 162 g [facility] Work Phone: LV Mass 2D Index 93.3 g/m2 43 - 95 g/m2 [facility] Work Phone: LV RWT Ratio 0.63 [facility] Work Phone: LVIDd 4.1 cm 3.9 - 5.3 cm [facility] Work Phone: LVIDd Index 2.23 cm/m2 [facility] Work Phone: LVIDs 2.9 cm [facility] Work Phone: LVIDs Index 1.58 cm/m2 [facility] Work Phone: LVOT Cardiac Output 3.2 liter/minute [facility] Work Phone: LVOT Diameter 1.9 cm [facility] Work Phone: LVOT Mean Gradient 2 mmHg [facility] Work Phone: LVOT Peak Gradient 3 mmHg [facility] Work Phone: LVOT Peak Velocity 0.9 m/s [facility] Work Phone: LVOT Stroke Volume Index 32.8 mL/m2 [facility] Work Phone: LVOT SV 60.4 ml [facility] Work Phone: LVOT VTI 21.3 cm [facility] Work Phone: LVPWd 1.3 cm Abnormal 0.6 - 0.9 cm [facility] Work Phone: MV A Velocity 0.83 m/s [facility] Work Phone: MV E Velocity 0.87 m/s [facility] Work Phone: MV E Wave Deceleration Time 198.9 ms [facility] Work Phone: MV E/A 1.05 [facility] Work Phone: Pulmonary Artery EDP 2 mmHg [facility] Work Phone: RA Area 4C 27 mL [facility] Work Phone: RA Area 4C 25.9 mL [facility] Work Phone: RV Basal Dimension 4.1 cm [facility] Work Phone: RV Free Wall Peak S' 13 cm/s [facility] Work Phone: RV Longitudinal Dimension 6.5 cm [facility] Work Phone: RV Mid Dimension 3.7 cm [facility] Work Phone: Sinotubular Junction 2.2 cm [facility] Work Phone: TAPSE 1.7 cm 1.7 cm [facility] Work Phone: [facility] Work Phone: US Heart Transthoracicon Left [...] CV CPACS Office Visiton 12-10-2024 Follow-up visit [id number] Ras Joseph 1955 F Date Provider Department Center 12/10/2024 [id number] WILCOX [facility] [place] None Family History Problem Relation Age of Onset Breast cancer Mother's Sister Substance Abuse Mother Heart disease Father Heart disease Mother Family Status - Relation Status Age at Mother's Sister Mother Alive Father Level of Service:46370 [place] OFFICE/OUTPATIENT NEW MODERATE MDM 45 MINUTES Reason for Visit and Comments: New Patient [542] - Right elbow injury Normal [facility] Progress Noteon 12-10-2024 Progress Note [facility] [address] [place] [address] [place] [id number] Dept: [phone] Dept 12/10/2024 Chief Complaint Patient presents with [...] 08/11/2024 Performed by Mason Haynes MD at [facility] ENDOSCOPY COLONOSCOPY W/ BIOPSIES AND POLYPECTOMY N/A 08/11/2024 Performed by Mason Haynes MD at [facility] ENDOSCOPY TONSILLECTOMY (HISTORICAL) WRIST SURGERY Past [...] EVERY DAY 90 tablet 1 HYDROcodone-acetaminop hen ([place]) 5-325 MG tablet Take 1 tablet by [...] OBJECTIVE H (more content not included)... Normal [facility] XR Humerus - right Viewson 0 12-10-2024 No acute osseous abnormality of the right humerus. Report Dictated on Electronically Signed By: William Neal MD Electronically Signed Date/Time: 12/10/2024 5:15 PM EST [facility] Patient Name: KAMILA JOSEPH : [...] Bony mineralization and soft tissues are normal. [facility] Yvette Neal MD - 12/10/2024 Patient [...] Electronically Signed Date/Time: 12/10/2024 5:15 PM EST [facility] Radiology Study observation (narrative) [facility] XR Humerus - right ViewsOrde red By: Yvette Neal on 12-10-2024 [facility] Work Phone: 37on 12-08-2024 37 If your insurance do es not change you may Schedule MRI for around 06/07/2025. Once you have this scheduled you can schedule a follow-up with Dr. Mann to review MRI Normal [facility] 37 Personalized Preventative Plan for Kamila Joseph [...] Recommendations: A preventive eye exam by an editorial specialist is recommended every 1-2 years to screen for glaucoma, cataracts, macular degeneration, and other eye disorders. A preventive dental visit is recommended every 6 months. Try to get at least 150 minutes of exercise per week or 10,000 steps per day on a pedometer. You need 1200-1500mg of calcium and 9213-0374 international units of vitamin D per day. [...] riding a bicycle or a motorcycle Normal [facility] MR/BMS.BPon 12-08-2024 MR/BMS.BP [address], [address] [place] [address] OFFICE VISIT Date of Service: 12/08/24 MR#: [id number] Acct: [id number] Name: KAMILA JOSEPH Rep #: [id number] : 1955 Provider: Dr. Andrew Cobian se, DO Age/Sex: 69/F [place] [facility] Status: Signed Intake Vital Signs 09/07/24 10:00 [...] the past year?: Yes (Several- recent fracture) [facility] Medical History (Updated 06/09/24 @ 12:40 [...] Appearance c (more content not included)... Normal [facility] Office Visiton 12-08-2024 Follow-up visit [id number] Ras Joseph 1955 Date Provider Department Center 12/08/2024 [id number] ESTRADA [facility] None Family History Problem Relation Age of Onset Breast cancer Mother's Sister Substance Abuse Mother Heart disease Father Heart disease Mother Family Status - Relation Status Age at Mother's Sister Mother Alive Father Level of Service:16117 [place] OFFICE/OUTPATIENT ESTABLISHED MOD MDM 30 MIN Reason for Visit and Comments: Follow-up [570272] Back Pain [12] Normal [facility] Follow-up visit [id number] Ras Joseph 1955 Date Provider Department Center 12/08/2024 [id number] VO [facility] Family History Problem Relation Age of Onset Breast cancer Mother's Sister Substance Abuse Mother Heart disease Father Heart disease Mother Family Status - Relation Status Age at Mother's Sister Mother Alive Father Level of Service:G0439 [place] PPPS, SUBSEQ VISIT Reason for Visit and Comments: Medicare Annual Wellness Visit Subsequent [677] Health Maintenance [872] - ?Bone Density Scan-NEEDS TO SCHEDULE ?Derm Melanoma Skin Check-needs completed ?Hepatitis C Screening-declined ?Pneumococcal Vaccine-declined ?Hepatitis B Vaccines-declined ?RSV Immunization-declined ?Mammogram-nata'd December 282024 ?Diabetes Screening-Today ?Echocardiogram-DISCUS S WITH PROVIDER LAST COMPLETED ?Influenza Vaccine-declined ?COVID-19 Vaccine-declined [facility] Progress Noteon 12-08-2024 Progress Note Improving. Continue follow-up with neurology [facility] Progress Note Follow-up with orthopedic as directed [facility] Progress Note Controlled. Blood pressure 137/81, continue metoprolol 25 mg daily and lisinopril 2.5 mg daily Normal [facility] Progress Note Check lipids, contin ue simvastatin 40 mg daily [facility] Progress Note Stable. Is due for echocardiogram. Continue current medications Normal [facility] Progress Note Stable. Is due for h er echocardiogram, continue current medications [facility] Progress Note Stable, managed by neurology, follow-up with neurology [facility] Progress Note Stable. Continue to follow-up with psychiatry and neurology [facility] Progress Note [facility] [place] [address] [facility] [address] [facility] [address] Dept: [phone] Dept Kamila Joseph 1955 [id number] 12/08/2024 Problem List: Neck pain Cervical spondylosis [...] EVERY DAY 90 tablet 1 HYDROcodone-acetaminop hen ([place]) 5-325 MG tablet Take 1 tablet by [...] 08/11/2024 Performed by Mason Haynes MD at [facility] ENDOSCOPY COLONOSCOPY W/ BIOPSIES AND POLYPECTOMY N/A 08/11/2024 Performed by Mason Haynes MD at [facility] ENDOSCOPY TONSILLECTOMY (HISTORICAL) WRIST SURGERY Social [...] Resource Strai (more content not included)... Normal [facility] Progress Note Patient was identifi ed by name and Date of . -CLOCK -WORDS -AWV Questions Health Maintenance Due Topic Bone Density Scan-NEEDS TO SCHEDULE Derm Melanoma Skin Check-needs completed Hepatitis C Screening-declined Pneumococcal Vaccine-declined Hepatitis B Vaccines-declined RSV Immunization-declined Mammogram-nata'd December 282024 Diabetes Screening-Today Echocardiogram-DISCUSS WITH PROVIDER LAST COMPLETED Influenza Vaccine-declined COVID-19 Vaccine-declined [facility] Progress Note [facility] [address] [address] Dept: [phone] Dept Chief Complaint: Kamila Joseph is an [...] EVERY DAY 90 tablet 1 HYDROcodone-acetaminop hen ([place]) 5-325 MG tablet Take 1 tablet by [...] that her mood is pretty good-she sees [place] [facility] in [place] Hypertension-blood pressure has been good is currently [...] 12/08/2025 DTaP/Tda (more content not included)... Normal [facility] Office Visiton 12-07-2024 Follow-up visit [id number] Ras Joseph 1955 F Date Provider Department Center 12/07/2024 [id number] MIRANDA [facility] None Family History Problem Relation Age of Onset Breast cancer Mother's Sister Substance Abuse Mother Heart disease Father Heart disease Mother Family Status - Relation Status Age at Mother's Sister Mother Alive Father Level of Service:34674 [place] OFFICE/OUTPATIENT ESTABLISHED MOD MDM 30 MIN Reason for Visit and Comments: Follow-up [077767] - Dyskinesia Normal [facility] Progress Noteon 12-07-2024 Progress Note Department of [...] mouth daily. 30 capsule 3 HYDROcodone-acetaminop hen ([place]) 5-325 MG tablet Take 1 tablet by [...] kg/m? Phys (more content not included)... Normal [facility] ED Provider Noteon ED Provider Note EMERGENCY [...] otherwise acutely negative except as in the COCOPAH. PAST MEDICAL HISTORY Past Medical History: Diagnosis [...] 08/11/2024 Performed by Mason Haynes MD at [facility] ENDOSCOPY COLONOSCOPY W/ BIOPSIES AND POLYPECTOMY N/A 08/11/2024 Performed by Mason Haynes MD at [facility] ENDOSCOPY TONSILLECTOMY (HISTORICAL) WRIST SURGERY CURRENT [...] Vitals [ (more content not included)... Normal [facility] No Panel Informationon 12-05 Comminuted and impacted radial head fracture. No additional fracture or evidence of dislocation within the right elbow and right wrist. Report Dictated on Electronically Signed By: Ranji Robles DO Electronically Signed Date/Time: 12/05/2024 9:12 PM [facility] Bud Malik DO 12/06/2024 4:20 AM Splint Application Performed by: Bud Malik DO Authorized by: Bud Malik DO Consent: Consent obtained: Verbal Consent given by: Patient Risks, benefits, and alternatives were discussed: yes Risks discussed: Discoloration, numbness and pain Alternatives discussed: No treatment [place] protocol: Procedure explained and questions answered to [...] Procedure completion: Tolerated Post-procedure imaging: not applicable [employer] No Panel InformationOrdered By: Rajni Robles on 12-05-2024 [employer] Work Phone: XR Elbow - right 3 [...] at the distal radioulnar and radiocarpal joints. [facility] Rajni Robles DO - 12/05/2024 [...] Electronically Signed Date/Time: 12/05/2024 9:12 PM EST [facility] Radiology Study observation (narrative) Miguel Angel collado [...] at the distal radioulnar and radiocarpal joints. [facility] Rajni Robles DO - 12/05/2024 [...] DO Electronically Signed Date/Time: 12/05/2024 9:12 PM [facility] Radiology Study observation (narrative) Miguel Angel [...] myself and their primary care physician. Normal [facility] MR Cervical spine WO contras ton 11-02-2024 [...] MD Electronically Signed Date/Time: 11/02/2024 4:04 PM [facility] Patient Name: KAMILA JOSEPH : 1955 [...] the central canal and foramina are patent. [facility] RADIOLOGY SYSTEM Lincoln Miller MD - 11/02/2024 [...] Electronically Signed Date/Time: 11/02/2024 4:04 PM EST [facility] [employer] Radiology Study observation (narrative) [facility] Cervical spine WO contras tOrdered By: Lincoln Miller on 11-02-2024 [employer] Work Phone: 37on 10-30-2024 37 We will notify you once we have approval from your insurance. You will then call central scheduling at [phone] to schedule. Please call our office at [phone] once MRI is scheduled to schedule a follow up visit with Dr. Mann for review. Normal [facility] [employer] [facility] Office Visiton 10-30-2024 Follow-up visit [id number] Ras Joseph 1955 F Date Provider Department Center 10/30/2024 [id number] [facility]DA [facility] None Family History Problem Relation Age of Onset Breast cancer Mother's Sister Substance Abuse Mother Heart disease Father Heart disease Mother Family Status - Relation Status Age at Mother's Sister Mother Alive Father Level of Service:22307 [place] OFFICE/OUTPATIENT NEW MODERATE MDM 45 MINUTES Reason for Visit and Comments: Back Pain [12] New Patient [542] Normal [facility] Progress Noteon 10-30-2024 Progress Note [facility] [place] [address] [facility] [address] [facility] [address] Dept: [phone] Dept Kamila Joseph 1955 [id number] 10/30/2024 Problem List: Neck pain Cervical myelopathy [...] 08/11/2024 Performed by Mason Haynes MD at [facility] ENDOSCOPY COLONOSCOPY W/ BIOPSIES AND POLYPECTOMY N/A 08/11/2024 Performed by Mason Haynes MD at [facility] ENDOSCOPY TONSILLECTOMY (HISTORICAL) WRIST SURGERY Social [...] (12/30/2023) Hu (more content not included)... Normal [facility] XR CERVICAL SPINE COMPLETE 4 -5 VIEWSon 10-30-2024 XR CERVICAL SPINE COMPLETE 4-5 VIEWS There is no carotid artery calcifications noted. No abnormal pre-vertebral swelling. No obvious fracture or instability. No congenital stenosis. Maintenance of normal cervical lordosis noted. Mild multi-level degenerative disc disease noted with moderate degenerative changes at C6-C7. There are moderate spondylitic changes and facet arthropathy noted. Normal [facility] XR Cervical spine 4 or 5 Vie wson 10-30-2024 There is no carotid artery calcifications noted. No abnormal pre-vertebral swelling. No obvious fracture or instability. No congenital stenosis. Maintenance of normal cervical lordosis noted. Mild multi-level degenerative disc disease noted with moderate degenerative changes at C6-C7. There are moderate spondylitic changes and facet arthropathy noted. [facility] Radiology Study observation (narrative) Miguel Angel collado 36on 10-22-2024 36 Spoke to patient, no questions. Normal [facility] 36 Atherosclerosis- she has some plaque buildup in there arteries (no treatment other than keeping blood pressure good, cholesterol levels good), possible small kidney stone on the right (punctate means that it is very small and not an issue), looks like surgical clips for a tubal ligation (those stay in) Normal [facility] 36 ----- Message from SOO Grant CNP [...] As she saw this on mychart. Normal [facility] Office Visiton 10-12-2024 Follow-up visit [id number] Ras Joseph Marin 1955 F Date Provider Department Center 10/12/2024 [id number] [facility] Family History Problem Relation Age of Onset Breast cancer Mother's Sister Substance Abuse Mother Heart disease Father Heart disease Mother Family Status - Relation Status Age at Mother's Sister Mother Alive Father Level of Service:61448 [place] OFFICE/OUTPATIENT ESTABLISHED MOD [facility] 30 MIN Reason for Visit and Comments: Follow-up [611833] - Is also wanting a UA, sx's being, lower back side pain, More frequent urination, no pain when urinating. Normal [facility] Progress Noteon 10-12-2024 Progress Note UA unremarkable. Recommend retrying the bladder retraining and using alarms to assist with bathroom breaks. If symptoms not improving would recommend following up with urology Normal [facility] Progress Note Stable. Managed by psychiatry continue current medications Normal [facility] Progress Note Controlled. Blood pressure 137/83, continue metoprolol 25 mg daily and lisinopril 2.5 mg daily Normal [facility] Progress Note X-ray was negative. Has had gradual improvement. Continue home physical therapy exercises. Normal [facility] Progress Note Poorly controlled. Recommend restarting bladder retraining, recommend using an alarm to assist with scheduled voiding. UA unremarkable for UTI. Normal [facility] Progress Note Patient verified by last name and . Normal [facility] Progress Note 10/12/2024 Kamila Joseph (: 1955) [...] ideas. Th (more content not included)... Normal [facility] Urinalysis macro (dipstick) panel (U)on 10-12-2024 Bilirubin, UA Negative [facility] Blood, [facility]A Trace [facility] Glucose, UA Negative [facility] Ketones, POC (mg/dL) Negative [facility] Leukocytes, UA Trace [facility] Nitrite, UA Negative [facility] pH, UA 6.5 [facility] Protein, UA Trace [facility] Spec Grav, UA 1.015 [facility] Urobilinogen, UA 0.2 [facility] Office Visiton 09-14-2024 Follow-up visit [id number] Ras Joseph 1955 F Date Provider Department Center 09/14/2024 JIE MUSE [facility] None Family History Problem Relation Age of Onset Breast cancer Mother's Sister Substance Abuse Mother Heart disease Father Heart disease Mother Family Status - Relation Status Age at Mother's Sister Mother Alive Father Level of Service:44797 [place] OFFICE/OUTPATIENT ESTABLISHED MOD [facility] 30 MIN Reason for Visit and Comments: Follow-up [278631] Parkinson's Disease [385] Normal [facility] Progress Noteon 09-14-2024 Progress Note Department of [...] grossly intact. (more content not included)... Normal [facility] XR Shoulder - right 2 Viewso n 09-09-2024 No fracture or dislocation of the right shoulder is identified. Mild degenerative changes of the right acromioclavicular and glenohumeral joints. Report Dictated on Electronically Signed By: José Miguel Mitchell MD Electronically Signed Date/Time: 09/09/2024 5:46 PM EST [facility] RADIOLOGY SYSTEM Patient Name: KAMILA JOSEPH : [...] at the right acromioclavicular and glenohumeral joints. [facility] José Miguel Mitchell MD - 09/09/2024 [...] Electronically Signed Date/Time: 09/09/2024 5:46 PM EST [facility] [employer] XR Shoulder - right 2 ViewsO rdered By: José Miguel Mitchell on 09-09-2024 [facility] [employer] 29on 09-08-2024 29 Addended by: ADRIANE HUBBARD on: 09/16/2024 06:06 AM Modules accepted: Level of Service Normal [facility] Office Visiton 09-08-2024 Follow-up visit [id number] Ras Joseph 1955 F Date Provider Department Center 09/08/2024 [id number] HUBBARD [facility] Family History Problem Relation Age of Onset Breast cancer Mother's Sister Substance Abuse Mother Heart disease Father Heart disease Mother Family Status - Relation Status Age at Mother's Sister Mother Alive Father Level of Service:21547 [place] OFFICE/OUTPATIENT ESTABLISHED SF MDM 10 MIN Reason for Visit and Comments: Follow-up [160784] - Fall- states mat in the shower gave away and she fell, all on Saturday Urinary Incontinence- States that she can't make it to the bathroom when she does have to go.(Gave water for UA as she does not have to go at this time) Normal [facility] Progress Noteon 09-08-2024 Progress Note Poorly controlled. Recommend starting bladder retraining. Reviewed and provided written instruction. Follow up in about 4 weeks. Would not recommend avoiding urinary incontinence medications d/t risks associated with them. Normal [facility] Progress Note Obtain xray to r/o a ny fracture d/t fall. Suspect soft tissue injury and possible rotator cuff tear. Recommend rice x 1 week, then start stretches/exercises provided. If not improving in a couple weeks, would recommend formal physical therapy Normal [facility] Progress Note Patient verified by last name and . Normal [facility] Progress Note 09/08/2024 Kamila Joseph (: 1955) [...] (25 mg) by mouth daily. 03/09/24 09/07/24 Juevncio Davila MD Review of Systems Constitutional: Negative [...] person, pl (more content not included)... Normal [facility] XR Shoulder - right 2 Viewso n 09-08-2024 Radiology Study observation (narrative) Miguel Angel collado 36on 09-07-2024 36 Prescription Request : Last medication check: 07/08/24 Last physical exam: 12/30/23 Next scheduled appointment: 12/30/24 Last date of refill on this medication 03/09/24 90 and 1 refill Normal [facility] MR/BMS.BPon 09-07-2024 MR/BMS.BP [facility] [address] [place] [address], [place] [address] OFFICE VISIT Date of Service: 09/07/24 MR#: [id number] Acct: [id number] Name: KAMILA JOSEPH Rep #: [id number] : [id number] Provider: Dr. Andrew Cobian se, DO Age/Sex: 69/F [place] [facility] [place]: Signed Intake Vital Signs 06/09/24 11:37 09/07/24 10:00 Height 5 ft 2 in 5 ft 2 in BP 128/81 H Blood Pressure Location Lt radial Position Sitting Respiration 16 Pulse 59 L Pulse Source Monitor BP Intake Visit Reasons: 2-3MFU Accompanied by: Daughter [facility] Allergy (Mild, Verified 09/07/24 10:00) [...] you fallen in the past year?: Yes [facility] Medical History (Updated 06/09/24 @ 12:40 [...] and grocery shopping despite having moved to [place]. Reports that she has been just existing. [...] linear, logic (more content not included)... Normal [facility] 36on 09-03-2024 36 Reviewed chart. Refi ll appropriate. RX sent. Normal [facility] 36 Prescription Request : Last medication check: 07/08/24 Last physical exam: 12/30/23 Next scheduled appointment: 12/30/24 Last date of refill on this medication 02/10/24 Normal [facility] Urinalysis macro (dipstick) panel (U)on 07-08-2024 Bilirubin, UA Negative [facility] h Blood, UA Trace [facility] Glucose, UA Negative [facility] Interpretation and review of laboratory results Abnormal [facility] Ketones, POC (mg/dL) Negative [facility] Leukocytes, UA Moderate [facility] Nitrite, UA Negative [facility] pH, UA 8.5 [facility] Protein, UA Negative [facility] Spec Grav, UA 1.005 [facility] Urobilinogen, UA 0.2 Miguel Angel collado [facility] Urinalysis macro (dipstick) panel (U)on 03-23-2024 Bilirubin, [facility] Trace [facility] Glucose, UA Negative [facility] Ketones, POC (mg/dL) Negative [facility] Leukocytes, UA Trace [facility] th Nitrite, UA Negative [facility] pH, UA 7.0 [facility] Protein, UA Negative [facility] Spec Grav, UA 1.010 [facility] Urob[facility], UA 0.2 [facility] Gene collado [facility] Radiology Study observation (narrative) Jose Gene collado Cobalamin (Vitamin B12) [Mas s/Vol]on 08-23-2023 Interpretation and review of laboratory results Normal [facility] Laboratory - Chemistry and C hemistry - challengeon 08-23-2023 Cobalamin (Vitamin B12) [Mass/Vol] 467 pg/mL 239 - 931 pg/mL [facility] TSHon 08-23-2023 TSH Qn 3.950 m[IU]/L [facility] TSH Qnon 08-23-2023 Interpretation and review of laboratory results Normal [facility] Vital Signs Date Time Vital Sign Value Performing Clinician Facility 03-08-2025 10:01-0400 Body mass index (BMI) [Ratio] 33.4 kg/m2 Adriane Hubbard MECHANICAL SYSTEMS DESIGNER - POWER AND RECOVERY SHIFT ENGINEER Work Phone: [facility] 03-08-2025 10:01-0400 Body temperature 98.91 [degF] Adriane Hubbard MECHANICAL SYSTEMS DESIGNER - POWER AND RECOVERY SHIFT ENGINEER Work Phone: [facility] 03-08-2025 10:01-0400 Body weight 82.83 kg Adriane Hubbard MECHANICAL SYSTEMS DESIGNER - POWER AND RECOVERY SHIFT ENGINEER Work Phone: [facility] 03-08-2025 10:01-0400 Diastolic blood pressure 72 mm[Hg] Adriane Hubbard MECHANICAL SYSTEMS DESIGNER - POWER AND RECOVERY SHIFT ENGINEER Work Phone: [facility] 03-08-2025 10:01-0400 Heart rate 82 /min Adrianeslime Valdezenthal MECHANICAL SYSTEMS DESIGNER - POWER AND RECOVERY SHIFT ENGINEER Work Phone: [facility] 03-08-2025 10:01-0400 Respiratory rate 18 /min Adriane Bridenthal MECHANICAL SYSTEMS DESIGNER - POWER AND RECOVERY SHIFT ENGINEER Work Phone: [facility] [employer] [facility] 03-08-2025 10:01-0400 SaO2% (BldA) [Mass fraction] 96 % Adriane Bridenthal MECHANICAL SYSTEMS DESIGNER - POWER AND RECOVERY SHIFT ENGINEER Work Phone: [facility] 03-08-2025 10:01-0400 Systolic blood pressure 117 mm[Hg] Adriane Bridenthal MECHANICAL SYSTEMS DESIGNER - POWER AND RECOVERY SHIFT ENGINEER Work Phone: [facility] [employer] [facility] 02-10-2025 08:29-0400 Body height 157.5 cm Jie Miranda MD Work Phone: [facility] 02-10-2025 08:29-0400 Body mass index (BMI) [Ratio] 33.29 kg/m2 Jie Miranda MD Work Phone: [facility] [employer] [facility] 02-10-2025 08:29-0400 Body weight 82.56 kg Jie Miranda MD Work Phone: [facility] 02-10-2025 08:29-0400 Diastolic blood pressure 78 mm[Hg] Jie Miranda MD Work Phone: [facility] 02-10-2025 08:29-0400 Systolic blood pressure 124 mm[Hg] Jie Miranda MD Work Phone: [facility] 01-01-2025 11:26-0400 Body height 157.5 cm Jie Miranda MD Work Phone: [facility] [employer] [facility] 01-01-2025 11:26-0400 Body mass index (BMI) [Ratio] 33.29 kg/m2 Jie Miranda MD Work Phone: [facility] [employer] [facility] 01-01-2025 11:26-0400 Body weight 82.56 kg Jie Miranda MD Work Phone: [facility] 01-01-2025 11:26-0400 Diastolic blood pressure 68 mm[Hg] Jie Miranda MD Work Phone: [facility] 01-01-2025 11:26-0400 Systolic blood pressure 120 mm[Hg] Jie Miranda MD Work Phone: [facility] 12-28-2024 14:34-0400 Body height 157.5 cm Adriane Bridenthal MECHANICAL SYSTEMS DESIGNER - POWER AND RECOVERY SHIFT ENGINEER Work Phone: [facility] [employer] [facility] 12-28-2024 14:34-0400 Body mass index (BMI) [Ratio] 33.29 kg/m2 Adriane Bridenthal MECHANICAL SYSTEMS DESIGNER - POWER AND RECOVERY SHIFT ENGINEER Work Phone: [facility] [facility] 12-28-2024 14:34-0400 Body weight 82.56 kg Adriane Bridenthal MECHANICAL SYSTEMS DESIGNER - POWER AND RECOVERY SHIFT ENGINEER Work Phone: [facility] [facility] 12-10-2024 13:27-0500 Body height 157.5 cm Tristin Wilcox MD Work Phone: [facility] [employer] [facility] 12-10-2024 13:27-0500 Body mass index (BMI) [Ratio] 33.29 kg/m2 Tristin Wilcox MD Work Phone: [facility] [facility] 12-10-2024 13:27-0500 Body weight 82.56 kg Tristin Wilcox MD Work Phone: [facility] [employer] [facility] 12-08-2024 15:06-0500 Body height 157.5 cm Peng Mann MD Work Phone: [facility] [facility] 12-08-2024 15:06-0500 Body mass index (BMI) [Ratio] 33.29 kg/m2 Peng Mann MD Work Phone: [facility] 12-08-2024 15:06-0500 Body weight 82.56 kg Peng Mann MD Work Phone: [facility] [employer] [facility] 12-08-2024 08:40-0500 Body height 157.5 cm Adriane Bridenthal MECHANICAL SYSTEMS DESIGNER - POWER AND RECOVERY SHIFT ENGINEER Work Phone: [facility] [facility] 12-08-2024 08:40-0500 Body mass index (BMI) [Ratio] 33.32 kg/m2 Adriane Bridenthal MECHANICAL SYSTEMS DESIGNER - POWER AND RECOVERY SHIFT ENGINEER Work Phone: [facility] [facility] 12-08-2024 08:40-0500 Body temperature 98.29 [degF] Adriane Bridenthal MECHANICAL SYSTEMS DESIGNER - POWER AND RECOVERY SHIFT ENGINEER Work Phone: [facility] [facility] 12-08-2024 08:40-0500 Body weight 82.64 kg Adriane Bridenthal MECHANICAL SYSTEMS DESIGNER - POWER AND RECOVERY SHIFT ENGINEER Work Phone: [facility] [facility] 12-08-2024 08:40-0500 Diastolic blood pressure 81 mm[Hg] Adriane Bridenthal MECHANICAL SYSTEMS DESIGNER - POWER AND RECOVERY SHIFT ENGINEER Work Phone: [facility] [facility] 12-08-2024 08:40-0500 Heart rate 58 /min Adriane Bridenthal MECHANICAL SYSTEMS DESIGNER - POWER AND RECOVERY SHIFT ENGINEER Work Phone: [facility] [facility] 12-08-2024 08:40-0500 Respiratory rate 16 /min Adriane Bridenthal MECHANICAL SYSTEMS DESIGNER - POWER AND RECOVERY SHIFT ENGINEER Work Phone: [facility] [facility] 12-08-2024 08:40-0500 SaO2% (BldA) [Mass fraction] 94 % Adriane Bridenthal MECHANICAL SYSTEMS DESIGNER - POWER AND RECOVERY SHIFT ENGINEER Work Phone: [facility] [facility] 12-08-2024 08:40-0500 Systolic blood pressure 137 mm[Hg] Adriane Courtneyenthal MECHANICAL SYSTEMS DESIGNER - POWER AND RECOVERY SHIFT ENGINEER Work Phone: [facility] [facility] 12-07-2024 15:03-0500 Body height 157.5 cm Jie Miranda MD Work Phone: [facility] [facility] 12-07-2024 15:03-0500 Body mass index (BMI) [Ratio] 32.74 kg/m2 Jie Miranda MD Work Phone: [facility] [facility] 12-07-2024 15:03-0500 Body weight 81.19 kg Jie Miranda MD Work Phone: [facility] [facility] 12-07-2024 15:03-0500 Diastolic blood pressure 70 mm[Hg] Jie Miranda MD Work Phone: [facility] [facility] 12-07-2024 15:03-0500 Systolic blood pressure 116 mm[Hg] Jie Miranda MD Work Phone: [facility] [employer] [facility] 12-05-2024 21:34-0500 Diastolic blood pressure 59 mm[Hg] Bud [facility]ombash [facility] 12-05-2024 21:34-0500 Heart rate 70 /min Bud Gombash DO [facility] 12-05-2024 21:34-0500 Respiratory rate 18 /min Bud Gombash DO Work Phone: [facility] [employer] [facility] 12-05-2024 21:34-0500 SaO2% (BldA) [Mass fraction] 92 % Bud Gombash DO [facility] 12-05-2024 21:34-0500 Systolic blood pressure 118 mm[Hg] Bud Gombash DO [facility] 12-05-2024 20:31-0500 Body height 157.5 cm Bud Gombash DO Work Phone: [facility] 12-05-2024 20:31-0500 Body mass index (BMI) [Ratio] 32.74 kg/m2 Bud Gombash DO [facility] 12-05-2024 20:31-0500 Body temperature 98.49 [degF] Bud Gombash DO Work Phone: [facility] [facility] 12-05-2024 20:31-0500 Body weight 81.19 kg Bud Gombash DO Work Phone: [facility] 10-30-2024 12:56-0500 Body height 157.5 cm Anjel Larsen MECHANICAL SYSTEMS DESIGNER - POWER AND RECOVERY SHIFT ENGINEER Work Phone: [facility] [facility] 10-30-2024 12:56-0500 Body mass index (BMI) [Ratio] 32.74 kg/m2 Anjel Larsen MECHANICAL SYSTEMS DESIGNER - POWER AND RECOVERY SHIFT ENGINEER Work Phone: [facility] [employer] [facility] 10-30-2024 12:56-0500 Body weight 81.19 kg Anjel Larsen MECHANICAL SYSTEMS DESIGNER - POWER AND RECOVERY SHIFT ENGINEER Work Phone: [facility] [facility] 10-12-2024 13:35-0500 Body height 157.5 cm Adrianeslime Valdezenthal MECHANICAL SYSTEMS DESIGNER - POWER AND RECOVERY SHIFT ENGINEER Work Phone: [facility] 10-12-2024 13:35-0500 Body mass index (BMI) [Ratio] 32.89 kg/m2 Adriane Bridenthal MECHANICAL SYSTEMS DESIGNER - POWER AND RECOVERY SHIFT ENGINEER Work Phone: [facility] 10-12-2024 13:35-0500 Body weight 81.56 kg Adriane Courtneyenthal MECHANICAL SYSTEMS DESIGNER - POWER AND RECOVERY SHIFT ENGINEER Work Phone: [facility] [employer] [facility] 10-12-2024 13:35-0500 Diastolic blood pressure 83 mm[Hg] Adriane Bridenthal MECHANICAL SYSTEMS DESIGNER - POWER AND RECOVERY SHIFT ENGINEER Work Phone: [facility] 10-12-2024 13:35-0500 Heart rate 61 /min Adriane Bridenthal MECHANICAL SYSTEMS DESIGNER - POWER AND RECOVERY SHIFT ENGINEER Work Phone: [facility] 10-12-2024 13:35-0500 SaO2% (BldA) [Mass fraction] 98 % Adriane Bridenthal MECHANICAL SYSTEMS DESIGNER - POWER AND RECOVERY SHIFT ENGINEER Work Phone: [facility] 10-12-2024 13:35-0500 Systolic blood pressure 137 mm[Hg] Adriane Bridenthal MECHANICAL SYSTEMS DESIGNER - POWER AND RECOVERY SHIFT ENGINEER Work Phone: [facility] 09-14-2024 15:10-0500 Body height 157.5 cm Jie Miranda MD Work Phone: [facility] 09-14-2024 15:10-0500 Body mass index (BMI) [Ratio] 34.57 kg/m2 Jie Miranda MD Work Phone: [facility] 09-14-2024 15:10-0500 Body temperature 97.3 [degF] Jie Miranda MD Work Phone: [facility] 09-14-2024 15:10-0500 Body weight 85.73 kg Jie Miranda MD Work Phone: [facility] 09-14-2024 15:10-0500 Diastolic blood pressure 66 mm[Hg] Jie Miranda MD Work Phone: [facility] 09-14-2024 15:10-0500 Heart rate 62 /min Jie Miranda MD Work Phone: [facility] 09-14-2024 15:10-0500 Systolic blood pressure 122 mm[Hg] Jie Miranda MD Work Phone: [facility] 09-08-2024 10:01-0500 Body height 157.5 cm Adriane Bridenthal MECHANICAL SYSTEMS DESIGNER - POWER AND RECOVERY SHIFT ENGINEER Work Phone: [facility] 09-08-2024 10:01-0500 Body mass index (BMI) [Ratio] 34.64 kg/m2 Adriane Bridenthal MECHANICAL SYSTEMS DESIGNER - POWER AND RECOVERY SHIFT ENGINEER Work Phone: [facility] [facility] [facility] 09-08-2024 10:01-0500 Body weight 85.91 kg Adriane Bridenthal MECHANICAL SYSTEMS DESIGNER - POWER AND RECOVERY SHIFT ENGINEER Work Phone: [facility] 09-08-2024 10:01-0500 Diastolic blood pressure 71 mm[Hg] Adriane Bridenthal MECHANICAL SYSTEMS DESIGNER - POWER AND RECOVERY SHIFT ENGINEER Work Phone: [facility] 09-08-2024 10:01-0500 Heart rate 59 /min Adriane Bridenthal MECHANICAL SYSTEMS DESIGNER - POWER AND RECOVERY SHIFT ENGINEER Work Phone: [facility] [facility] 09-08-2024 10:01-0500 SaO2% (BldA) [Mass fraction] 93 % Adriane Bridenthal MECHANICAL SYSTEMS DESIGNER - POWER AND RECOVERY SHIFT ENGINEER Work Phone: [facility] 09-08-2024 10:01-0500 Systolic blood pressure 139 mm[Hg] Adriane Bridenthal MECHANICAL SYSTEMS DESIGNER - POWER AND RECOVERY SHIFT ENGINEER Work Phone: [facility] [employer] [facility] 08-11-2024 09:55-0400 Body temperature 97.9 [degF] Mason Haynes MD Work Phone: [facility] 08-11-2024 09:55-0400 Diastolic blood pressure 69 mm[Hg] Mason Haynes MD Work Phone: [facility] [employer] [facility] 08-11-2024 09:55-0400 Heart rate 68 /min Mason Haynes MD Work Phone: [facility] 08-11-2024 09:55-0400 Respiratory rate 16 /min Mason Haynes MD Work Phone: [facility] 08-11-2024 09:55-0400 SaO2% (BldA) [Mass fraction] 97 % Mason Haynes MD Work Phone: [facility] 08-11-2024 09:55-0400 Systolic blood pressure 139 mm[Hg] Mason Haynes MD Work Phone: [facility] 08-11-2024 08:19-0400 Body mass index (BMI) [Ratio] 33.84 kg/m2 Mason Haynes MD Work Phone: [facility] 08-11-2024 08:19-0400 Body weight 83.92 kg Mason Haynes MD Work Phone: [facility] 07-08-2024 11:13-0400 Body mass index (BMI) [Ratio] 33.47 kg/m2 Adriane Jacklynal MECHANICAL SYSTEMS DESIGNER - POWER AND RECOVERY SHIFT ENGINEER Work Phone: [facility] [employer] [facility] 07-08-2024 11:13-0400 Body temperature 98.6 [degF] Adriane Courtneyenthal MECHANICAL SYSTEMS DESIGNER - POWER AND RECOVERY SHIFT ENGINEER Work Phone: [facility] [facility] [facility] 07-08-2024 11:13-0400 Body weight 83.01 kg Adriane Jacklynal MECHANICAL SYSTEMS DESIGNER - POWER AND RECOVERY SHIFT ENGINEER Work Phone: [facility] [employer] [facility] 07-08-2024 11:13-0400 Diastolic blood pressure 76 mm[Hg] Adriane Courtneyenthal MECHANICAL SYSTEMS DESIGNER - POWER AND RECOVERY SHIFT ENGINEER Work Phone: [facility] [employer] [facility] 07-08-2024 11:13-0400 Heart rate 58 /min Adriane Bridenthal MECHANICAL SYSTEMS DESIGNER - POWER AND RECOVERY SHIFT ENGINEER Work Phone: [facility] [employer] [facility] 07-08-2024 11:13-0400 Respiratory rate 14 /min Adriane Bridenthal MECHANICAL SYSTEMS DESIGNER - POWER AND RECOVERY SHIFT ENGINEER Work Phone: [facility] [employer] [facility] 07-08-2024 11:13-0400 SaO2% (BldA) [Mass fraction] 97 % Adriane Bridenthal MECHANICAL SYSTEMS DESIGNER - POWER AND RECOVERY SHIFT ENGINEER Work Phone: [facility] 07-08-2024 11:13-0400 Systolic blood pressure 132 mm[Hg] Adriane Bridenthal MECHANICAL SYSTEMS DESIGNER - POWER AND RECOVERY SHIFT ENGINEER Work Phone: [facility] [employer] [facility] 07-02-2024 14:01-0400 Body height 157.5 cm Jie Miranda MD Work Phone: [facility] [employer] [facility] 07-02-2024 14:01-0400 Body mass index (BMI) [Ratio] 30.73 kg/m2 Jie Miranda MD Work Phone: [facility] [employer] [facility] 07-02-2024 14:01-0400 Body weight 76.2 kg Jie Miranda MD Work Phone: [facility] 07-02-2024 14:01-0400 Diastolic blood pressure 68 mm[Hg] Jie Miranda MD Work Phone: [facility] 07-02-2024 14:01-0400 Heart rate 60 /min Jie Miranda MD Work Phone: [facility] 07-02-2024 14:01-0400 Systolic blood pressure 124 mm[Hg] Jie Miranda MD Work Phone: [facility] 04-02-2024 13:43-0400 Body mass index (BMI) [Ratio] 30.73 kg/m2 Violet Castellanos MECHANICAL SYSTEMS DESIGNER - POWER AND RECOVERY SHIFT ENGINEER Work Phone: [facility] 04-02-2024 13:43-0400 Body temperature 97.9 [degF] Violet Castellanos MECHANICAL SYSTEMS DESIGNER - POWER AND RECOVERY SHIFT ENGINEER Work Phone: [facility] [employer] [facility] 04-02-2024 13:43-0400 Body weight 76.2 kg Violet Castellanos MECHANICAL SYSTEMS DESIGNER - POWER AND RECOVERY SHIFT ENGINEER Work Phone: [facility] 04-02-2024 13:43-0400 Diastolic blood pressure 73 mm[Hg] Violet Castellanos MECHANICAL SYSTEMS DESIGNER - POWER AND RECOVERY SHIFT ENGINEER Work Phone: [facility] 04-02-2024 13:43-0400 Heart rate 66 /min Violet Castellanos MECHANICAL SYSTEMS DESIGNER - POWER AND RECOVERY SHIFT ENGINEER Work Phone: [facility] 04-02-2024 13:43-0400 Systolic blood pressure 127 mm[Hg] Violet Castellanos MECHANICAL SYSTEMS DESIGNER - POWER AND RECOVERY SHIFT ENGINEER Work Phone: [facility] 03-23-2024 13:52-0400 Body height 157.5 cm Adriane Valdezenthal MECHANICAL SYSTEMS DESIGNER - POWER AND RECOVERY SHIFT ENGINEER Work Phone: [facility] 03-23-2024 13:52-0400 Body mass index (BMI) [Ratio] 30.62 kg/m2 Adriane Bridenthal MECHANICAL SYSTEMS DESIGNER - POWER AND RECOVERY SHIFT ENGINEER Work Phone: [facility] 03-23-2024 13:52-0400 Body weight 75.93 kg Adrianeslime Valdezenthal MECHANICAL SYSTEMS DESIGNER - POWER AND RECOVERY SHIFT ENGINEER Work Phone: [facility] 03-23-2024 13:52-0400 Diastolic blood pressure 63 mm[Hg] Adriane Courtneyenthal MECHANICAL SYSTEMS DESIGNER - POWER AND RECOVERY SHIFT ENGINEER Work Phone: [facility] 03-23-2024 13:52-0400 Heart rate 55 /min Adriane Bridenthal MECHANICAL SYSTEMS DESIGNER - POWER AND RECOVERY SHIFT ENGINEER Work Phone: [facility] 03-23-2024 13:52-0400 SaO2% (BldA) [Mass fraction] 99 % Adriane Bridenthal MECHANICAL SYSTEMS DESIGNER - POWER AND RECOVERY SHIFT ENGINEER Work Phone: [facility] 03-23-2024 13:52-0400 Systolic blood pressure 126 mm[Hg] Adriane Bridenthal MECHANICAL SYSTEMS DESIGNER - POWER AND RECOVERY SHIFT ENGINEER Work Phone: [facility] 02-10-2024 11:11-0400 Body height 157.5 cm Adriane Bridenthal MECHANICAL SYSTEMS DESIGNER - POWER AND RECOVERY SHIFT ENGINEER Work Phone: [facility] 02-10-2024 11:11-0400 Body mass index (BMI) [Ratio] 29.78 kg/m2 Adriane Bridenthal MECHANICAL SYSTEMS DESIGNER - POWER AND RECOVERY SHIFT ENGINEER Work Phone: [facility] 02-10-2024 11:11-0400 Body temperature 97.81 [degF] Adriane Bridenthal MECHANICAL SYSTEMS DESIGNER - POWER AND RECOVERY SHIFT ENGINEER Work Phone: [facility] 02-10-2024 11:11-0400 Body weight 73.85 kg Adriane Bridenthal MECHANICAL SYSTEMS DESIGNER - POWER AND RECOVERY SHIFT ENGINEER Work Phone: [facility] 02-10-2024 11:11-0400 Diastolic blood pressure 58 mm[Hg] Adriane Bridenthal MECHANICAL SYSTEMS DESIGNER - POWER AND RECOVERY SHIFT ENGINEER Work Phone: [facility] 02-10-2024 11:11-0400 Heart rate 71 /min Adriane Bridenthal MECHANICAL SYSTEMS DESIGNER - POWER AND RECOVERY SHIFT ENGINEER Work Phone: [facility] 02-10-2024 11:11-0400 SaO2% (BldA) [Mass fraction] 97 % Adriane Bridenthal MECHANICAL SYSTEMS DESIGNER - POWER AND RECOVERY SHIFT ENGINEER Work Phone: [facility] 02-10-2024 11:11-0400 Systolic blood pressure 134 mm[Hg] Adriane Bridenthal MECHANICAL SYSTEMS DESIGNER - POWER AND RECOVERY SHIFT ENGINEER Work Phone: [facility] [employer] [facility] 12-30-2023 11:11-0400 Body height 160 cm Adriane Bridenthal MECHANICAL SYSTEMS DESIGNER - POWER AND RECOVERY SHIFT ENGINEER Work Phone: [facility] 12-30-2023 11:11-0400 Body mass index (BMI) [Ratio] 27.42 kg/m2 Adriane Bridenthal MECHANICAL SYSTEMS DESIGNER - POWER AND RECOVERY SHIFT ENGINEER Work Phone: [facility] [employer] [facility] 12-30-2023 11:11-0400 Body temperature 98.01 [degF] Adriane Bridenthal MECHANICAL SYSTEMS DESIGNER - POWER AND RECOVERY SHIFT ENGINEER Work Phone: [facility] [facility] 12-30-2023 11:11-0400 Body weight 70.22 kg Adriane Villasenoral MECHANICAL SYSTEMS DESIGNER - POWER AND RECOVERY SHIFT ENGINEER Work Phone: [facility] [employer] [facility] 12-30-2023 11:11-0400 Diastolic blood pressure 76 mm[Hg] Adriane Valdezenthal MECHANICAL SYSTEMS DESIGNER - POWER AND RECOVERY SHIFT ENGINEER Work Phone: [facility] [facility] 12-30-2023 11:11-0400 Heart rate 71 /min Adriane Valdezenthal MECHANICAL SYSTEMS DESIGNER - POWER AND RECOVERY SHIFT ENGINEER Work Phone: [facility] [facility] 12-30-2023 11:11-0400 SaO2% (BldA) [Mass fraction] 97 % Adriane Valdezenthal MECHANICAL SYSTEMS DESIGNER - POWER AND RECOVERY SHIFT ENGINEER Work Phone: [facility] [facility] 12-30-2023 11:11-0400 Systolic blood pressure 119 mm[Hg] Adriane Villasenoral MECHANICAL SYSTEMS DESIGNER - POWER AND RECOVERY SHIFT ENGINEER Work Phone: [facility] [facility] 12-06-2023 13:41-0500 Body height 160.7 cm Jie Miranda MD Work Phone: [facility] [employer] [facility] 12-06-2023 13:41-0500 Body mass index (BMI) [Ratio] 26.71 kg/m2 Jie Miranda MD Work Phone: [facility] [facility] 12-06-2023 13:41-0500 Body temperature 97.2 [degF] Jie Miranda MD Work Phone: [facility] [facility] 12-06-2023 13:41-0500 Body weight 68.95 kg Jie Miranda MD Work Phone: [facility] [facility] 12-06-2023 13:41-0500 Diastolic blood pressure 74 mm[Hg] Jie Miranda MD Work Phone: [facility] [facility] 12-06-2023 13:41-0500 Heart rate 65 /min Jie Miranda MD Work Phone: [facility] [facility] 12-06-2023 13:41-0500 Systolic blood pressure 133 mm[Hg] Jie Miranda MD Work Phone: [facility] [facility] 11-14-2023 14:34-0500 Body mass index (BMI) [Ratio] 26.82 kg/m2 Adriane Bridenthal MECHANICAL SYSTEMS DESIGNER - POWER AND RECOVERY SHIFT ENGINEER Work Phone: [facility] [facility] 11-14-2023 14:34-0500 Body temperature 98.4 [degF] Adriane Bridenthal MECHANICAL SYSTEMS DESIGNER - POWER AND RECOVERY SHIFT ENGINEER Work Phone: [facility] [facility] 11-14-2023 14:34-0500 Body weight 69.22 kg Adriane Bridenthal MECHANICAL SYSTEMS DESIGNER - POWER AND RECOVERY SHIFT ENGINEER Work Phone: [facility] [facility] 11-14-2023 14:34-0500 Diastolic blood pressure 53 mm[Hg] Adriane Bridenthal MECHANICAL SYSTEMS DESIGNER - POWER AND RECOVERY SHIFT ENGINEER Work Phone: [facility] [facility] 11-14-2023 14:34-0500 Heart rate 73 /min Adriane Bridenthal MECHANICAL SYSTEMS DESIGNER - POWER AND RECOVERY SHIFT ENGINEER Work Phone: [facility] [employer] [facility] 11-14-2023 14:34-0500 Respiratory rate 18 /min Adriane Bridenthal MECHANICAL SYSTEMS DESIGNER - POWER AND RECOVERY SHIFT ENGINEER Work Phone: [employer] 11-14-2023 14:34-0500 SaO2% (BldA) [Mass fraction] 96 % Adriane Bridenthal MECHANICAL SYSTEMS DESIGNER - POWER AND RECOVERY SHIFT ENGINEER Work Phone: [employer] 11-14-2023 14:34-0500 Systolic blood pressure 117 mm[Hg] Adriane Bridenthal MECHANICAL SYSTEMS DESIGNER - POWER AND RECOVERY SHIFT ENGINEER Work Phone: [employer] 10-16-2023 13:54-0500 Body mass index (BMI) [Ratio] 27.06 kg/m2 Adriane Bridenthal MECHANICAL SYSTEMS DESIGNER - POWER AND RECOVERY SHIFT ENGINEER Work Phone: [facility] [employer] 10-16-2023 13:54-0500 Body temperature 97.3 [degF] Adriane Bridenthal MECHANICAL SYSTEMS DESIGNER - POWER AND RECOVERY SHIFT ENGINEER Work Phone: [employer] 10-16-2023 13:54-0500 Body weight 69.85 kg Adriane Bridenthal MECHANICAL SYSTEMS DESIGNER - POWER AND RECOVERY SHIFT ENGINEER Work Phone: [facility] [employer] 10-16-2023 13:54-0500 Diastolic blood pressure 72 mm[Hg] Adriane Bridenthal MECHANICAL SYSTEMS DESIGNER - POWER AND RECOVERY SHIFT ENGINEER Work Phone: [facility] [employer] 10-16-2023 13:54-0500 Heart rate 79 /min Adriane Bridenthal MECHANICAL SYSTEMS DESIGNER - POWER AND RECOVERY SHIFT ENGINEER Work Phone: [facility] [employer] 10-16-2023 13:54-0500 Respiratory rate 20 /min Adriane Bridenthal MECHANICAL SYSTEMS DESIGNER - POWER AND RECOVERY SHIFT ENGINEER Work Phone: [facility] [employer] 10-16-2023 13:54-0500 SaO2% (BldA) [Mass fraction] 99 % Adriane Bridenthal MECHANICAL SYSTEMS DESIGNER - POWER AND RECOVERY SHIFT ENGINEER Work Phone: [facility] [employer] 10-16-2023 13:54-0500 Systolic blood pressure 118 mm[Hg] Adriane Bridenthal MECHANICAL SYSTEMS DESIGNER - POWER AND RECOVERY SHIFT ENGINEER Work Phone: [facility] [employer] 09-17-2023 14:11-0500 Body mass index (BMI) [Ratio] 27.06 kg/m2 Adriane Bridenthal MECHANICAL SYSTEMS DESIGNER - POWER AND RECOVERY SHIFT ENGINEER Work Phone: [facility] [employer] 09-17-2023 14:11-0500 Body temperature 98.6 [degF] Adriane Bridenthal MECHANICAL SYSTEMS DESIGNER - POWER AND RECOVERY SHIFT ENGINEER Work Phone: [facility] [employer] 09-17-2023 14:11-0500 Body weight 69.85 kg Adriane Bridenthal MECHANICAL SYSTEMS DESIGNER - POWER AND RECOVERY SHIFT ENGINEER Work Phone: [facility] [employer] 09-17-2023 14:11-0500 Diastolic blood pressure 82 mm[Hg] Adriane Bridenthal MECHANICAL SYSTEMS DESIGNER - POWER AND RECOVERY SHIFT ENGINEER Work Phone: [facility] [employer] 09-17-2023 14:11-0500 Heart rate 106 /min Adriane Bridenthal MECHANICAL SYSTEMS DESIGNER - POWER AND RECOVERY SHIFT ENGINEER Work Phone: [facility] [employer] 09-17-2023 14:11-0500 Respiratory rate 24 /min Adriane Bridenthal MECHANICAL SYSTEMS DESIGNER - POWER AND RECOVERY SHIFT ENGINEER Work Phone: [facility] [employer] 09-17-2023 14:11-0500 SaO2% (BldA) [Mass fraction] 98 % Adriane Bridenthal MECHANICAL SYSTEMS DESIGNER - POWER AND RECOVERY SHIFT ENGINEER Work Phone: [facility] [employer] 09-17-2023 14:11-0500 Systolic blood pressure 120 mm[Hg] Adriane Bridenthal MECHANICAL SYSTEMS DESIGNER - POWER AND RECOVERY SHIFT ENGINEER Work Phone: [facility] [employer] 09-05-2023 08:14-0500 Body temperature 97.3 [degF] Jie Miranda MD Work Phone: [facility] [employer] 09-05-2023 08:14-0500 Diastolic blood pressure 69 mm[Hg] Jie Miranda MD Work Phone: [facility] [employer] 09-05-2023 08:14-0500 Heart rate 66 /min Jie Miranda MD Work Phone: [facility] [employer] 09-05-2023 08:14-0500 Systolic blood pressure 127 mm[Hg] Jie Miranda MD Work Phone: [facility] [employer] 08-19-2023 13:41-0400 Body mass index (BMI) [Ratio] 27.24 kg/m2 Adriane Bridenthal MECHANICAL SYSTEMS DESIGNER - POWER AND RECOVERY SHIFT ENGINEER Work Phone: [facility] [employer] 08-19-2023 13:41-0400 Body temperature 97.3 [degF] Adriane Bridenthal MECHANICAL SYSTEMS DESIGNER - POWER AND RECOVERY SHIFT ENGINEER Work Phone: [facility] [employer] 08-19-2023 13:41-0400 Body weight 70.31 kg Adriane Bridenthal MECHANICAL SYSTEMS DESIGNER - POWER AND RECOVERY SHIFT ENGINEER Work Phone: [facility] [employer] 08-19-2023 13:41-0400 Diastolic blood pressure 50 mm[Hg] Adriane Bridenthal MECHANICAL SYSTEMS DESIGNER - POWER AND RECOVERY SHIFT ENGINEER Work Phone: [facility] [employer] 08-19-2023 13:41-0400 Heart rate 58 /min Adriane Bridenthal MECHANICAL SYSTEMS DESIGNER - POWER AND RECOVERY SHIFT ENGINEER Work Phone: [facility] [employer] 08-19-2023 13:41-0400 Respiratory rate 18 /min Adriane Bridenthal MECHANICAL SYSTEMS DESIGNER - POWER AND RECOVERY SHIFT ENGINEER Work Phone: [facility] [employer] 08-19-2023 13:41-0400 SaO2% (BldA) [Mass fraction] 96 % Adriane Bridenthal MECHANICAL SYSTEMS DESIGNER - POWER AND RECOVERY SHIFT ENGINEER Work Phone: [facility] [employer] 08-19-2023 13:41-0400 Systolic blood pressure 98 mm[Hg] Adriane Bridenthal MECHANICAL SYSTEMS DESIGNER - POWER AND RECOVERY SHIFT ENGINEER Work Phone: [facility] [employer] 08-01-2023 11:42-0400 Body temperature 97.7 [degF] Jie Miranda MD Work Phone: [facility] [employer] 08-01-2023 11:42-0400 Diastolic blood pressure 79 mm[Hg] Jie Miranda MD Work Phone: [facility] [employer] 08-01-2023 11:42-0400 Heart rate 83 /min Jie Miranda MD Work Phone: [facility] [employer] 08-01-2023 11:42-0400 Systolic blood pressure 106 mm[Hg] Jie Miranda MD Work Phone: [facility] [employer] 07-24-2023 13:04-0400 Body mass index (BMI) [Ratio] 28.08 kg/m2 Adriane Bridenthal MECHANICAL SYSTEMS DESIGNER - POWER AND RECOVERY SHIFT ENGINEER Work Phone: [facility] [employer] 07-24-2023 13:04-0400 Body temperature 97.5 [degF] Adriane Bridenthal MECHANICAL SYSTEMS DESIGNER - POWER AND RECOVERY SHIFT ENGINEER Work Phone: [facility] [employer] 07-24-2023 13:04-0400 Body weight 72.48 kg Adriane Bridenthal MECHANICAL SYSTEMS DESIGNER - POWER AND RECOVERY SHIFT ENGINEER Work Phone: [facility] [employer] 07-24-2023 13:04-0400 Diastolic blood pressure 80 mm[Hg] Adriane Bridenthal MECHANICAL SYSTEMS DESIGNER - POWER AND RECOVERY SHIFT ENGINEER Work Phone: [facility] [employer] 07-24-2023 13:04-0400 Heart rate 82 /min Adriane Courtneyenthal MECHANICAL SYSTEMS DESIGNER - POWER AND RECOVERY SHIFT ENGINEER Work Phone: [facility] [employer] 07-24-2023 13:04-0400 Respiratory rate 24 /min Adriane Bridenthal MECHANICAL SYSTEMS DESIGNER - POWER AND RECOVERY SHIFT ENGINEER Work Phone: [facility] [employer] 07-24-2023 13:04-0400 SaO2% (BldA) [Mass fraction] 99 % Adriane Bridenthal MECHANICAL SYSTEMS DESIGNER - POWER AND RECOVERY SHIFT ENGINEER Work Phone: [facility] [employer] 07-24-2023 13:04-0400 Systolic blood pressure 130 mm[Hg] Adriane Courtneyenthal MECHANICAL SYSTEMS DESIGNER - POWER AND RECOVERY SHIFT ENGINEER Work Phone: [facility] [employer] 06-27-2023 15:24-0400 Body height 160.7 cm Juvencio Davila MD Work Phone: [facility] [employer] 06-27-2023 15:24-0400 Body mass index (BMI) [Ratio] 28.15 kg/m2 Juvencio Davila MD Work Phone: [facility] [employer] 06-27-2023 15:24-0400 Body weight 72.67 kg Juvencio Davila MD Work Phone: [employer] 06-27-2023 15:24-0400 Diastolic blood pressure 68 mm[Hg] Juvencio Davila MD Work Phone: [employer] 06-27-2023 15:24-0400 Heart rate 102 /min Juvencio Davila MD Work Phone: [facility] [employer] 06-27-2023 15:24-0400 SaO2% (BldA) [Mass fraction] 98 % Juvencio Davila MD Work Phone: [employer] 06-27-2023 15:24-0400 Systolic blood pressure 114 mm[Hg] Juvencio Davila MD Work Phone: [facility] [employer] 06-27-2023 09:39-0400 Body height 160.7 cm Jie Miranda MD Work Phone: [facility] [employer] 06-27-2023 09:39-0400 Body mass index (BMI) [Ratio] 28.15 kg/m2 Jie Miranda MD Work Phone: [employer] 06-27-2023 09:39-0400 Body temperature 97.3 [degF] Jie Miranda MD Work Phone: [facility] 06-27-2023 09:39-0400 Body weight 72.67 kg Jie Miranda MD Work Phone: [facility] 06-27-2023 09:39-0400 Diastolic blood pressure 84 mm[Hg] Jie Miranda MD Work Phone: [facility] [employer] 06-27-2023 09:39-0400 Heart rate 111 /min Jie Miranda MD Work Phone: [facility] [employer] 06-27-2023 09:39-0400 Systolic blood pressure 125 mm[Hg] Jie Miranda MD Work Phone: [facility] 06-10-2023 14:54-0400 Body height 160.7 cm Juvencio Davila MD Work Phone: [employer] 06-10-2023 14:54-0400 Body mass index (BMI) [Ratio] 29.45 kg/m2 Juvencio Davila MD Work Phone: [employer] 06-10-2023 14:54-0400 Body weight 76.02 kg Juvencio Davila MD Work Phone: [employer] 06-10-2023 14:54-0400 Diastolic blood pressure 82 mm[Hg] Juvencio Davila MD Work Phone: [employer] 06-10-2023 14:54-0400 Heart rate 94 /min Juvencio Davila MD Work Phone: [employer] 06-10-2023 14:54-0400 SaO2% (BldA) [Mass fraction] 98 % Juvencio Davila MD Work Phone: [employer] 06-10-2023 14:54-0400 Systolic blood pressure 133 mm[Hg] Juvencio Davila MD Work Phone: [facility] [employer] 05-27-2023 09:56-0400 Body height 160.7 cm Juvencio Davila MD Work Phone: [facility] [employer] 05-27-2023 09:56-0400 Body mass index (BMI) [Ratio] 29.84 kg/m2 Juvencio Davila MD Work Phone: [facility] [employer] 05-27-2023 09:56-0400 Body weight 77.02 kg Juvencio Davila MD Work Phone: [employer] 05-27-2023 09:56-0400 Diastolic blood pressure 68 mm[Hg] Juvencio Davila MD Work Phone: [facility] 05-27-2023 09:56-0400 Heart rate 90 /min Juvencio Davila MD Work Phone: [facility] 05-27-2023 09:56-0400 SaO2% (BldA) [Mass fraction] 97 % Juvencio Davila MD Work Phone: [facility] [employer] 05-27-2023 09:56-0400 Systolic blood pressure 100 mm[Hg] Juvencio Davila MD Work Phone: [facility] [employer] 05-08-2023 10:55-0400 Body mass index (BMI) [Ratio] 29.84 kg/m2 Adriane Bridenthal MECHANICAL SYSTEMS DESIGNER - POWER AND RECOVERY SHIFT ENGINEER Work Phone: [facility] [employer] 05-08-2023 10:55-0400 Body temperature 98.01 [degF] Adriane Bridenthal MECHANICAL SYSTEMS DESIGNER - POWER AND RECOVERY SHIFT ENGINEER Work Phone: [employer] 05-08-2023 10:55-0400 Body weight 77.02 kg Adriane Bridenthal MECHANICAL SYSTEMS DESIGNER - POWER AND RECOVERY SHIFT ENGINEER Work Phone: [facility] [employer] 05-08-2023 10:55-0400 Diastolic blood pressure 80 mm[Hg] Adriane Bridenthal MECHANICAL SYSTEMS DESIGNER - POWER AND RECOVERY SHIFT ENGINEER Work Phone: [employer] 05-08-2023 10:55-0400 Heart rate 99 /min Adriane Bridenthal MECHANICAL SYSTEMS DESIGNER - POWER AND RECOVERY SHIFT ENGINEER Work Phone: [facility] [employer] 05-08-2023 10:55-0400 Respiratory rate 24 /min Adriane Bridenthal MECHANICAL SYSTEMS DESIGNER - POWER AND RECOVERY SHIFT ENGINEER Work Phone: [facility] [employer] 05-08-2023 10:55-0400 SaO2% (BldA) [Mass fraction] 99 % Adriane Bridenthal MECHANICAL SYSTEMS DESIGNER - POWER AND RECOVERY SHIFT ENGINEER Work Phone: [facility] [employer] 05-08-2023 10:55-0400 Systolic blood pressure 125 mm[Hg] Adriane Bridenthal MECHANICAL SYSTEMS DESIGNER - POWER AND RECOVERY SHIFT ENGINEER Work Phone: [facility] [employer] 04-24-2023 13:08-0400 Body mass index (BMI) [Ratio] 30.65 kg/m2 Juvencio Davila MD Work Phone: [facility] [employer] 04-24-2023 13:08-0400 Body weight 79.11 kg Juvencio Davila MD Work Phone: [facility] [employer] 04-24-2023 13:08-0400 Diastolic blood pressure 78 mm[Hg] Juvencio Davila MD Work Phone: [facility] [employer] 04-24-2023 13:08-0400 Heart rate 79 /min Juvencio Davila MD Work Phone: [facility] 04-24-2023 13:08-0400 Respiratory rate 16 /min Juvencio Davila MD Work Phone: [facility] 04-24-2023 13:08-0400 SaO2% (BldA) [Mass fraction] 96 % Juvencio Davila MD Work Phone: [facility] 04-24-2023 13:08-0400 Systolic blood pressure 122 mm[Hg] Juvencio Davila MD Work Phone: [facility] 03-26-2023 13:28-0400 Body height 160.7 cm Juvencio Davila MD Work Phone: [facility] [employer] 03-26-2023 13:28-0400 Body mass index (BMI) [Ratio] 31.49 kg/m2 Juvencio Davila MD Work Phone: [facility] 03-26-2023 13:28-0400 Body weight 81.28 kg Juvencio Davila MD Work Phone: [facility] 03-26-2023 13:28-0400 Diastolic blood pressure 64 mm[Hg] Juvencio Davila MD Work Phone: [facility] 03-26-2023 13:28-0400 Heart rate 76 /min Juvencio Davila MD Work Phone: [facility] 03-26-2023 13:28-0400 SaO2% (BldA) [Mass fraction] 96 % Juvencio Davila MD Work Phone: [facility] 03-26-2023 13:28-0400 Systolic blood pressure 119 mm[Hg] Juvencio Davila MD Work Phone: [facility] 01-03-2023 11:32-0400 Body weight 88.[address] Juvencio Davila Work Phone: [facility] 01-03-2023 11:32-0400 Diastolic blood pressure 75 mm[Hg] Dr. Juvencio Davila Work Phone: [facility] 01-03-2023 11:32-0400 Heart rate 93 /min Dr. Juvencio Davila Work Phone: [facility] 01-03-2023 11:32-0400 Respiratory rate 18 /min Dr. Juvencio Davila Work Phone: [facility] 01-03-2023 11:32-0400 Systolic blood pressure 125 mm[Hg] Dr. Juvencio Davila Work Phone: [facility] 01-03-2023 10:32-0400 Body height 157.[address] Juvencio Davila Work Phone: [facility] 10-29-2022 14:30-0500 Body height 160.7 cm Juvencio Davila MD Work Phone: [facility] 10-29-2022 14:30-0500 Body mass index (BMI) [Ratio] 37.08 kg/m2 Juvencio Davila MD Work Phone: [facility] 10-29-2022 14:30-0500 Body weight 95.71 kg Juvencio Davila MD Work Phone: [facility] 10-29-2022 14:30-0500 Diastolic blood pressure 72 mm[Hg] Juvencio Davila MD Work Phone: [facility] 10-29-2022 14:30-0500 Heart rate 82 /min Juvencio Davila MD Work Phone: [facility] 10-29-2022 14:30-0500 Systolic blood pressure 135 mm[Hg] Juvencio Davila MD Work Phone: [facility] 12-04-2021 14:21-0500 Body height 157.[address] Juvencio Davila Work Phone: [facility] Work Phone: 12-04-2021 14:21-0500 Body mass index (BMI) [Ratio] 40.6 kg/m2 Dr. Juvencio Davila Work Phone: [facility] Work Phone: 12-04-2021 14:21-0500 Body weight 100.[address] Juvencio Davila Work Phone: [facility] Work Phone: 12-04-2021 14:21-0500 Diastolic blood pressure 78 mm[Hg] Dr. Juvencio Davila Work Phone: [facility] Work Phone: 12-04-2021 14:21-0500 Heart rate 77 /min Dr. Juvencio Davila Work Phone: [facility] Work Phone: 12-04-2021 14:21-0500 Respiratory rate 18 /min Dr. Juvencio Davila Work Phone: [facility] Work Phone: 12-04-2021 14:21-0500 Systolic blood pressure 138 mm[Hg] Dr. Juvencio Davila Work Phone: [facility] Work Phone: Encounters Encounter Date Encounter Type Care Provider Facility Start: 08-25-2025 End: 08-25-2025 Orders Only Juvencio Davila MD Work Phone: [facility] Start: 08-23-2025 End: 08-23-2025 ambulatory [place] Start: 08-20-2025 End: 08-20-2025 ambulatory Talya Smith Facility:[facility] Start: 08-15-2025 End: 08-15-2025 Emergency department patient visit [place] Facility:[facility] Start: 08-09-2025 End: 08-09-2025 Refill Violet Castellanos MECHANICAL SYSTEMS DESIGNER - POWER AND RECOVERY SHIFT ENGINEER Work Phone: [facility] Comment on above: Dyskinesia Start: 07-22-2025 End: 07-22-2025 Subsequent hospital visit by physician Peng Mann MD Work Phone: [facility] Comment on above: Subcutaneous mass of back Start: 07-22-2025 End: 07-22-2025 ambulatory [facility] Start: 06-24-2025 End: 06-24-2025 Refill Shyla Bustillo MECHANICAL SYSTEMS DESIGNER - POWER AND RECOVERY SHIFT ENGINEER Work Phone: [facility] Comment on above: Hyperlipidemia LDL g oal <100 Start: 06-07-2025 End: 06-07-2025 ambulatory [facility] Start: 06-07-2025 End: 06-07-2025 Subsequent hospital visit by physician Bolivar Linder NP Work Phone: [facility] Comment on above: Cervical myelopathy (HCC) Start: 05-06-2025 End: 05-07-2025 Telephone encounter Jie Miranda MD Work Phone: [facility] Comment on above: Appointment Start: 05-06-2025 End: 05-06-2025 ambulatory Andrew Argueta Facility:[facility] Start: 05-03-2025 End: 05-03-2025 Refill Violet Jim MECHANICAL SYSTEMS DESIGNER - POWER AND RECOVERY SHIFT ENGINEER Work Phone: [facility] Comment on above: Dyskinesia Start: 03-09-2025 End: 03-09-2025 ambulatory Andrew Argueta Facility:[facility] Start: 03-08-2025 End: 03-08-2025 Office outpatient visit 25 minutes Adriane Hubbard MECHANICAL SYSTEMS DESIGNER - POWER AND RECOVERY SHIFT ENGINEER Work Phone: [facility] Comment on above: TERESA on CPAP (Primary Dx); Anxiety; Congestive heart failure, unspecified HF chronicity, unspecified heart failure type (HCC); Tardive dyskinesia; Mild dementia without behavioral disturbance, psychotic disturbance, mood disturbance, or anxiety, unspecified dementia type (HCC); Essential hypertension Start: 03-08-2025 End: 03-08-2025 ambulatory [facility] Start: 03-05-2025 End: 03-08-2025 Telephone encounter Jie Miranda MD Work Phone: [facility] Comment on above: Med Management (brianna tadine (Symmetrel) 100 MG tablet) Start: 03-02-2025 End: 03-02-2025 Refill Juvencio Davila MD Work Phone: [facility] Start: 02-10-2025 End: 02-10-2025 Subsequent hospital visit by physician Adriane Hubbard MECHANICAL SYSTEMS DESIGNER - POWER AND RECOVERY SHIFT ENGINEER Work Phone: [facility] Comment on above: Abnormal mammogram Start: 02-10-2025 End: 02-10-2025 ambulatory [facility] Start: 02-10-2025 End: 02-10-2025 Office outpatient visit 15 minutes Jie Miranda MD Work Phone: [facility] Comment on above: Tardive dyskinesia ( Primary Dx) Start: 02-10-2025 End: 02-10-2025 ambulatory [facility] Start: 02-10-2025 End: 02-10-2025 [facility] Start: 01-06-2025 End: 01-06-2025 Refill Jie Miranda MD Work Phone: [facility] Comment on above: Dyskinesia Start: 01-01-2025 End: 01-01-2025 Office outpatient visit 25 minutes Jie Miranda MD Work Phone: [facility] Comment on above: Neuroleptic-induced tardive dyskinesia (Primary Dx) Start: 01-01-2025 End: 01-01-2025 [facility] Start: 12-29-2024 End: 12-29-2024 Telephone encounter Adriane Hubbard APRN - POWER AND RECOVERY SHIFT ENGINEER Work Phone: [facility] Comment on above: Results Start: 12-28-2024 End: 12-28-2024 Subsequent hospital visit by physician Adriane Hubbard APRN - POWER AND RECOVERY SHIFT ENGINEER Work Phone: [facility] Comment on above: Encounter for screen ing mammogram for malignant neoplasm of breast Start: 12-28-2024 End: 12-28-2024 [facility] Start: 12-22-2024 End: 12-22-2024 Telephone encounter Adriane Hubbard MECHANICAL SYSTEMS DESIGNER - POWER AND RECOVERY SHIFT ENGINEER Work Phone: [facility] Comment on above: Results Results; Medication Problem (Calcium Carb-Cholecalciferol dose change request) Start: 12-21-2024 End: 12-21-2024 Subsequent hospital visit by physician Adriane Hubbard APRN - POWER AND RECOVERY SHIFT ENGINEER Work Phone: [facility] Estrada Comment on above: Cardiomyopathy, unsp ecified type (HCC); Abnormal electrocardiogram (ECG) (EKG) Post-menopausal Start: 12-21-2024 End: 12-21-2024 ambulatory [facility] Start: 12-10-2024 End: 12-10-2024 Subsequent hospital visit by physician Tristin Wilcox MD Work Phone: [facility] Comment on above: Right arm pain Start: 12-10-2024 End: 12-10-2024 Office outpatient new 45 minutes Tristin Wilcox MD Work Phone: [facility] [place] Comment on above: Right arm pain (Prim orion Dx); Closed nondisplaced fracture of head of right radius, initial encounter Start: 12-10-2024 End: 12-10-2024 ambulatory [facility] Start: 12-08-2024 End: 12-08-2024 Office outpatient visit 25 minutes Peng Mann MD Work Phone: [facility] [place] Comment on above: Cervical myelopathy (HCC) (Primary Dx); Neck pain; Cervical spondylosis; Cervical radiculopathy Start: 12-08-2024 End: 12-08-2024 ambulatory [facility] Start: 12-08-2024 End: 12-08-2024 ambulatory Andrew [facility] [place] Start: 12-08-2024 End: 12-08-2024 Assay of hemosiderin, quant Adriane Hubbard MECHANICAL SYSTEMS DESIGNER - POWER AND RECOVERY SHIFT ENGINEER Work Phone: [facility] Start: 12-08-2024 End: 12-08-2024 Patient encounter procedure Adriane Courtneyenthal MECHANICAL SYSTEMS DESIGNER - POWER AND RECOVERY SHIFT ENGINEER Work Phone: [facility] Comment on above: Routine general medi [...] Tardive dyskinesia Start: 12-08-2024 End: 12-08-2024 ambulatory [facility] Start: 12-08-2024 End: 12-08-2024 Encounter for general adult medical examination without abnormal findings ADRIANE HUBBARD [facility] Start: 12-07-2024 End: 12-07-2024 ambulatory [facility] Start: 12-07-2024 End: 12-07-2024 Office outpatient visit 25 minutes Jie Miranda MD Work Phone: [facility] Comment on above: Closed fracture of r ight upper extremity, initial encounter (Primary Dx); Tardive dyskinesia Start: 12-05-2024 End: 12-05-2024 Emergency department patient visit Bud Malik DO Work Phone: [facility] Comment on above: Closed nondisplaced fracture of head of right radius, initial encounter (Primary Dx) Start: 12-01-2024 End: 12-01-2024 Refill Anjel Larsen APRN - POWER AND RECOVERY SHIFT ENGINEER Work Phone: [facility] Start: 11-02-2024 End: 11-02-2024 ambulatory [facility] Start: 11-02-2024 End: 11-02-2024 Subsequent hospital visit by physician Anjel Larsen APRN - POWER AND RECOVERY SHIFT ENGINEER Work Phone: [facility] Comment on above: Neck pain; Cervical myelopathy (HCC); DDD (degenerative disc disease), cervical; Cervical spondylosis Start: 10-30-2024 End: 10-30-2024 Office outpatient new 45 minutes Anjel Larsen APRN - POWER AND RECOVERY SHIFT ENGINEER Work Phone: [facility] [employer] [facility] Comment on above: Neck pain (Primary D x); Cervical myelopathy (HCC); DDD (degenerative disc disease), cervical; Cervical spondylosis; Lumbar pain; Degeneration of intervertebral disc of lumbar region with discogenic back pain; Lumbar spondylosis Start: 10-30-2024 End: 10-30-2024 [facility] Start: 10-16-2024 End: 10-16-2024 Subsequent hospital visit by physician Juvencio Davila MD Work Phone: [facility] Radiology Comment on above: Chronic midline low back pain without sciatica Start: 10-16-2024 End: 10-16-2024 [facility] Start: 10-12-2024 End: 10-12-2024 Office outpatient visit 25 minutes Adrianeglenroy Hubbard MECHANICAL SYSTEMS DESIGNER - POWER AND RECOVERY SHIFT ENGINEER Work Phone: [facility] Comment on above: Acute pain of right shoulder (Primary Dx); Urinary tract infection symptoms; Mixed stress and urge urinary incontinence; Chronic midline low back pain without sciatica; Essential hypertension; Major depressive disorder with single episode, in partial remission (HCC) Start: 10-12-2024 End: 10-12-2024 [facility] Start: 09-14-2024 End: 09-14-2024 Office outpatient visit 25 minutes Jie Miranda MD Work Phone: [facility] Comment on above: Dyskinesia (Primary Dx); Other drug-induced secondary parkinsonism (HCC) Start: 09-14-2024 End: 09-14-2024 [facility] Start: 09-08-2024 End: 09-08-2024 Subsequent hospital visit by physician Adriane Hubbard MECHANICAL SYSTEMS DESIGNER - POWER AND RECOVERY SHIFT ENGINEER Work Phone: [facility] Radiology Comment on above: Acute pain of right shoulder Start: 09-08-2024 End: 09-08-2024 [facility] Start: 09-08-2024 End: 09-08-2024 Office outpatient visit 10 minutes Adriane Hubbard MECHANICAL SYSTEMS DESIGNER - POWER AND RECOVERY SHIFT ENGINEER Work Phone: [facility] Comment on above: Acute pain of right shoulder (Primary Dx); Mixed stress and urge urinary incontinence Start: 09-08-2024 End: 09-08-2024 Office outpatient visit 25 minutes Adriane Magdaleno MECHANICAL SYSTEMS DESIGNER - POWER AND RECOVERY SHIFT ENGINEER Work Phone: [facility] Comment on above: Acute pain of right shoulder (Primary Dx); Mixed stress and urge urinary incontinence Start: 09-08-2024 End: 09-08-2024 ambulatory [facility] Start: 09-07-2024 End: 09-07-2024 ambulatory [facility] Start: 09-04-2024 End: 09-07-2024 Refill Juvencio Davila MD Work Phone: [facility] Start: 09-03-2024 End: 09-03-2024 Refill Adriane Hubbard MECHANICAL SYSTEMS DESIGNER - POWER AND RECOVERY SHIFT ENGINEER Work Phone: [facility] Start: 08-24-2024 End: 08-24-2024 Telephone encounter Mason Haynes MD Work Phone: [facility] Start: 08-11-2024 End: 08-11-2024 Subsequent hospital visit by physician Mason Haynes MD Work Phone: [facility] Endoscopy Comment on above: Encounter for screen ing for malignant neoplasm of colon Start: 07-28-2024 End: 07-28-2024 Telephone encounter Mason Haynes MD Work Phone: [facility] Start: 07-14-2024 End: 07-14-2024 Telephone encounter Terry Bui MD Work Phone: [facility] Comment on above: Appointment Request (The colonoscopy questionnaire was completed.) Start: 07-08-2024 End: 07-08-2024 Office outpatient visit 25 minutes Adriane Magdaleno MECHANICAL SYSTEMS DESIGNER - POWER AND RECOVERY SHIFT ENGINEER Work Phone: [facility] Comment on above: Acute left-sided low back pain without sciatica (Primary Dx); Skin lesion; Colon cancer screening; Left flank pain; TERESA on CPAP; Anxiety; Recurrent major depressive disorder, in full remission (HCC); Essential hypertension; Hyperlipidemia LDL goal <100; Urinary tract infection symptoms Start: 07-04-2024 End: 07-06-2024 Refill Adriane Bridenthal MECHANICAL SYSTEMS DESIGNER - POWER AND RECOVERY SHIFT ENGINEER Work Phone: [facility] Comment on above: Hyperlipidemia LDL g oal <100 Start: 07-02-2024 End: 07-02-2024 Office outpatient visit 25 minutes Jie Miranda MD Work Phone: [facility] Comment on above: Parkinson's disease without dyskinesia or fluctuating manifestations (HCC) (Primary Dx); Orofacial dyskinesia Start: 04-02-2024 End: 04-02-2024 Office outpatient visit 25 minutes Violet Jim MECHANICAL SYSTEMS DESIGNER - POWER AND RECOVERY SHIFT ENGINEER Work Phone: [facility]science Comment on above: Tardive dyskinesia ( Primary Dx); Gait disorder Start: 03-23-2024 ambulatory Laura Gould RN [facility] ical Communication Start: 03-23-2024 End: 03-23-2024 Office outpatient visit 15 minutes Adriane Bridenthal MECHANICAL SYSTEMS DESIGNER - POWER AND RECOVERY SHIFT ENGINEER Work Phone: [facility] Comment on above: Urinary tract infect ion symptoms (Primary Dx) Start: 03-23-2024 Patient encounter procedure Laura Gould RN [facility] Clinical Communication Start: 02-10-2024 Refill Juvencio Davila MD Work Phone: [facility] Start: 02-10-2024 End: 02-10-2024 Office outpatient visit 10 minutes Adriane Bridenthal MECHANICAL SYSTEMS DESIGNER - POWER AND RECOVERY SHIFT ENGINEER Work Phone: [facility] Comment on above: TERESA on CPAP (Primary Dx) Start: 12-30-2023 End: 12-30-2023 Assay of hemosiderin, quant Adriane Bridenthal MECHANICAL SYSTEMS DESIGNER - POWER AND RECOVERY SHIFT ENGINEER Work Phone: [facility] [employer] Start: 12-30-2023 End: 12-30-2023 Patient encounter procedure Adriane Bridenthal MECHANICAL SYSTEMS DESIGNER - POWER AND RECOVERY SHIFT ENGINEER Work Phone: [facility] Comment on above: Routine general medi roxana examination at health care facility (Primary Dx); Hyperlipidemia LDL goal <100; Screening for deficiency anemia; Essential hypertension; Encounter for screening mammogram for malignant neoplasm of breast; Post-menopausal; Tardive dyskinesia; Weight loss; TERESA on CPAP; Recurrent major depressive disorder, in full remission (HCC); Anxiety Start: 12-09-2023 Refill Juvencio Davila MD Work Phone: [facility] Medicine Comment on above: Anxiety Start: 12-06-2023 End: 12-06-2023 Office outpatient visit 15 minutes Jie Miranda MD Work Phone: [facility] Comment on above: 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) Start: 11-14-2023 End: 11-14-2023 Office outpatient visit 25 minutes Adriane [employer] MECHANICAL SYSTEMS DESIGNER - FX Aligned Work Phone: [facility] Medicine Comment on above: Anxiety (Primary Dx) ; Recurrent major depressive disorder, in full remission (HCC) Start: 10-16-2023 End: 10-16-2023 Office outpatient visit 25 minutes Adriane [employer] MECHANICAL SYSTEMS DESIGNER - FX Aligned Work Phone: [facility] Comment on above: Anxiety (Primary Dx) ; Recurrent major depressive disorder, in full remission (HCC); Essential hypertension Start: 10-10-2023 End: 10-10-2023 Patient encounter procedure Juvencio Davila MD Work Phone: [facility] Comment on above: Neoplasm of uncertai n behavior of skin of lower leg (Primary Dx) Start: 09-17-2023 End: 09-17-2023 Office outpatient visit 25 minutes Adriane Safaba [employer] MECHANICAL SYSTEMS DESIGNER - FX Aligned Work Phone: [facility] Comment on above: Anxiety (Primary Dx) ; Tardive dyskinesia; Essential hypertension; Post-menopausal; Skin lesion Start: 09-05-2023 End: 09-05-2023 Office outpatient visit 15 minutes Jei Miranda MD Work Phone: [facility] Comment on above: Tardive dyskinesia ( Primary Dx); Anxiety and depression Start: 08-27-2023 Nicol Davila MD Work Phone: [facility] Comment on above: Recurrent major depr essive disorder, in full remission (HCC) Start: 08-23-2023 End: 08-23-2023 Subsequent hospital visit by physician Jie Miranda MD Work Phone: [facility] Comment on above: Mild dementia withou t behavioral disturbance, psychotic disturbance, mood disturbance, or anxiety, unspecified dementia type (HCC) Start: 08-19-2023 End: 08-19-2023 Office outpatient visit 25 minutes AdrianeShubham Housing [employer] Companyleoncioal MECHANICAL SYSTEMS DESIGNER - POWER AND RECOVERY SHIFT ENGINEER Work Phone: [facility] Medicine Comment on above: Tardive dyskinesia ( Primary Dx); Weight loss; Hot flashes; Essential hypertension Start: 08-10-2023 Refill Juvencio Davila MD Work Phone: [facility] Start: 08-05-2023 Telephone encounter Jie mejia MD Work Phone: [facility] Comment on above: Med Management (Ingr ezza 60mg increase - [facility]. ) Start: 08-01-2023 End: 08-01-2023 Office outpatient visit 25 minutes Jie Miranda MD Work Phone: [facility] Comment on above: Mild dementia withou t behavioral disturbance, psychotic disturbance, mood disturbance, or anxiety, unspecified dementia type (HCC) (Primary Dx); Tardive dyskinesia Start: 07-24-2023 End: 07-24-2023 Office outpatient visit 15 minutes Adriane Safaba [employer] MECHANICAL SYSTEMS DESIGNER - POWER AND RECOVERY SHIFT ENGINEER Work Phone: [facility] Medicine Comment on above: Tardive dyskinesia ( Primary Dx); Anxiety Start: 07-03-2023 ambulatory [facility] Start: 07-03-2023 Patient encounter procedure Anne-Marie Rodriguez RN [facility] Clinical Communication Start: 07-03-2023 Telephone encounter Anne-Marie Rodriguez RN [facility] Clinical Communication Start: 07-01-2023 Telephone encounter Violet case MECHANICAL SYSTEMS DESIGNER - POWER AND RECOVERY SHIFT ENGINEER Work Phone: [facility] Comment on above: Med Management (Glenny ent must fill with [facility] ) Start: 06-27-2023 End: 06-27-2023 Office outpatient visit 15 minutes Juvencio Davila MD Work Phone: [facility] Comment on above: Tardive dyskinesia ( Primary Dx); Anxiety Start: 06-27-2023 Refill Juvencio Davila MD Work Phone: [facility] Start: 06-27-2023 End: 06-27-2023 Office outpatient new 45 minutes Jie Miranda MD Work Phone: [facility] Comment on above: Tardive dyskinesia Start: 06-26-2023 Telephone encounter Jie mejia MD Work Phone: [facility] Comment on above: New Patient ( 3, 10:00a: Tardive Dyskinesia) Start: 06-19-2023 ambulatory Ciarra Tripp RN [facility] Clinical Communication Start: 06-19-2023 Patient encounter procedure Ciarra Tripp RN [facility] Clinical Communication Comment on above: Tardive dyskinesia ( Primary Dx) Start: 06-10-2023 End: 06-10-2023 Office outpatient visit 15 minutes Juvencio Davila MD Work Phone: [facility] Comment on above: Drug-induced movemen t disorder (Primary Dx); TERESA on CPAP Start: 05-31-2023 Telephone encounter Juvencio Reed MD Work Phone: [facility] Comment on above: Orders (Sleep study order) Start: 05-27-2023 End: 05-27-2023 Office outpatient visit 25 minutes Juvencio Davila MD Work Phone: [facility] Comment on above: Recurrent major depr essive disorder, in full remission (HCC) (Primary Dx); Anxiety; Class 1 obesity due to excess calories without serious comorbidity with body mass index (BMI) of 30.0 to 30.9 in adult; Tardive dyskinesia Start: 05-08-2023 End: 05-08-2023 Office outpatient visit 15 minutes [employer] MECHANICAL SYSTEMS DESIGNER - POWER AND RECOVERY SHIFT ENGINEER Work Phone: [facility] Comment on above: Tardive dyskinesia ( Primary Dx); Drug-induced movement disorder; Essential hypertension; Recurrent major depressive disorder, in full remission (HCC) Start: 05-08-2023 End: 05-08-2023 Office outpatient visit 25 minutes [employer] MECHANICAL SYSTEMS DESIGNER - POWER AND RECOVERY SHIFT ENGINEER Work Phone: [facility] Comment on above: Tardive dyskinesia ( Primary Dx); Drug-induced movement disorder; Essential hypertension; Recurrent major depressive disorder, in full remission (HCC) Start: 04-24-2023 End: 04-24-2023 Office outpatient visit 25 minutes Juvencio Davila MD Work Phone: [facility] Comment on above: Recurrent major depr essive disorder, in full remission (HCC) (Primary Dx); Class 1 obesity due to excess calories without serious comorbidity with body mass index (BMI) of 30.0 to 30.9 in adult Start: 03-26-2023 End: 03-26-2023 Office outpatient visit 15 minutes Juvencio Davila MD Work Phone: [facility] Comment on above: Greater trochanteric bursitis of right hip (Primary Dx); Class 1 obesity due to excess calories without serious comorbidity with body mass index (BMI) of 31.0 to 31.9 in adult Start: 03-08-2023 End: 03-08-[address] Juvencio Davila Work Phone: [facility] Work Phone: Start: 03-08-2023 End: 03-08-[address] Juvencio Davila Work Phone: [facility] Start: 02-12-2023 Refill Shyla Bustillo APRN - POWER AND RECOVERY SHIFT ENGINEER Work Phone: [facility] Start: 01-18-2023 Non-patient / Non-visit Dr. Cam Work Phone: [facility] Start: 01-18-2023 End: 01-18-[address] Juvencio Davila Work Phone: [facility] Work Phone: Start: 01-18-2023 End: 01-18-[address] Juvencio Davila Work Phone: [facility] Start: 01-03-2023 End: 01-03-[address] Juvencio Davila Work Phone: [facility] Start: 12-30-2022 Refill Juvencio Davila MD Work Phone: [facility] Start: 12-28-2022 Refill Juvencio Davila MD Work Phone: [facility] Start: 10-29-2022 End: 10-29-2022 Patient encounter status Juvencio Davila MD Work Phone: [facility] Start: 10-29-2022 End: 10-29-2022 Periodic preventive med est patient 65yrs& older Juvencio Davila MD Work Phone: [facility] Comment on above: Well female exam wit h routine gynecological exam (Primary Dx); Essential hypertension; Obesity (BMI 35.0-39.9 without comorbidity); Prediabetes; Recurrent major depressive disorder, in full remission (HCC); Anxiety; Hyperlipidemia LDL goal <100; Screening for colon cancer Start: 01-23-2022 End: 01-23-[address] Juvencio Davila Work Phone: [facility]-Outpatient [facility] Start: 12-04-2021 End: 12-04-[address] Juvencio Davila Work Phone: [facility] Start: 12-10-2018 Patient encounter procedure Juvencio Davila [facility] Procedures Date Procedure Procedure Detail Performing Clinician Start: 02-10-2025 End: 02-10-2025 Mammography Adriane Magdaleno A PRN - POWER AND RECOVERY SHIFT ENGINEER Work Phone: Start: 12-28-2024 End: 12-28-2024 Screening digital breast tomosynthesis bi Adriane Bridenthal MECHANICAL SYSTEMS DESIGNER - POWER AND RECOVERY SHIFT ENGINEER Work Phone: Start: 12-21-2024 Dxa bone density darrell dy 1/> sites axial skel Adriane Bridenthal MECHANICAL SYSTEMS DESIGNER - POWER AND RECOVERY SHIFT ENGINEER Work Phone: Start: 12-21-2024 Echo tthrc r-t 2d w/wom-mode compl spec&colr d Adriane Bridenthal MECHANICAL SYSTEMS DESIGNER - POWER AND RECOVERY SHIFT ENGINEER Work Phone: Start: 12-10-2024 Radex humerus minimu [...] cer vical w/o contrast matrl Anjel Larsen MECHANICAL SYSTEMS DESIGNER - POWER AND RECOVERY SHIFT ENGINEER Work Phone: Start: 10-30-2024 Radex spine cervical 4 or 5 views Anjel Larsen MECHANICAL SYSTEMS DESIGNER - POWER AND RECOVERY SHIFT ENGINEER Work Phone: Start: 10-12-2024 Urnls dip stick/tabl et rgnt non-auto w/o micrscp Adriane Bridenthal MECHANICAL SYSTEMS DESIGNER - POWER AND RECOVERY SHIFT ENGINEER Work Phone: Start: 08-11-2024 Colonoscopy Mason melo MD Work Phone: Start: 07-08-2024 Urnls dip stick/tabl et rgnt non-auto w/o micrscp Adriane Bridenthal MECHANICAL SYSTEMS DESIGNER - POWER AND RECOVERY SHIFT ENGINEER Work Phone: Start: 03-23-2024 Urnls dip stick/tabl et rgnt non-auto w/o micrscp Adriane Bridenthal MECHANICAL SYSTEMS DESIGNER - POWER AND RECOVERY SHIFT ENGINEER Work Phone: Start: 12-30-2023 Lipid 1996 panel - S janelle or Plasma Juvencio Davila MD Work Phone: Start: 03-08-[address] Cam Work Phone: Start: 10-30-2022 Lipid 1996 panel - S janelle or Plasma Shyla Bustillo MECHANICAL SYSTEMS DESIGNER - POWER AND RECOVERY SHIFT ENGINEER Work Phone: Start: 10-29-2022 Microscopic observat ion [Identifier] in Cervix by Cyto stain Juvencio Davila MD Work Phone: Start: 01-25-2022 Mammography Shyla vences MECHANICAL SYSTEMS DESIGNER - POWER AND RECOVERY SHIFT ENGINEER Work Phone: Start: 01-23-2022 Screening mammography Fran Davila Work Phone: Start: 11-16-2021 Lipid 1996 panel - S janelle or Plasma Juvencio Davila MD Work Phone: Start: 10-26-2021 Microscopic observat ion [Identifier] in Cervix by Cyto stain Juvencio Davila MD Work Phone: Plan of Treatment Date Care Activity Detail Author Start: 12-08-2029 Lipid panel Lipid Panel [facility] Start: 08-11-2029 Screening for malignant neoplasm of colon [facility] Start: 12-29-2028 Lipid panel Lipid Panel [facility] Start: 10-30-2027 Lipid panel Lipid Panel [facility] Start: 02-15-2027 DTaP/Tdap/Td Vaccines (2 - Td or Tdap) DTaP/Tdap/Td Vaccines (2 - Td or Tdap) [facility] Start: 11-16-2026 Lipid panel Lipid Panel [facility] Start: 03-09-2026 End: 03-09-2026 Patient encounter procedure 03/09/2026 11:00 AM EDT Office Visit [facility] [address] [place] [address] [place] [address] BridenthalNataliaAdriane, MECHANICAL SYSTEMS DESIGNER - POWER AND RECOVERY SHIFT ENGINEER [address] [place] [address] [facility] Start: 02-10-2026 Screening for malignant neoplasm of breast Mammogram [facility] Start: 01-07-2026 Medicare Annual Wellness (AWV) Medicare Annual Wellness (AWV) [facility] Start: 12-28-2025 Screening for malignant neoplasm of breast Mammogram [facility] Start: 12-21-2025 Echocardiography Echocardiogram [facility] Start: 12-09-2025 End: 12-09-2025 Patient encounter procedure 12/09/2025 10:20 AM EST [facility] [address] [place] [address] [place] [address] Bridenthal Adriane, MECHANICAL SYSTEMS DESIGNER - POWER AND RECOVERY SHIFT ENGINEER [address] [place] [address] [place] [address] [facility] Start: 12-08-2025 Creatinine measurement Creatinine Level [facility] Start: 12-08-2025 Diabetes mellitus screening Diabetes Screening [facility] Start: 12-08-2025 Potassium measurement Potassium Level [facility] Start: 12-08-2025 RSV Immunization for Adults (1 - Risk 60-74 years 1-dose series) RSV Immunization for Adults (1 - Risk 60-74 years 1-dose series) [facility] Comment on above: Postponed from 2017 (Patient Refus ed) Start: 10-30-2025 Diabetes mellitus screening Diabetes Screening [facility] Start: 10-29-2025 Screening for malignant neoplasm of cervix [facility] Start: 10-12-2025 End: 10-12-2025 Patient encounter procedure 10/12/2025 10:20 AM EST Office Visit [facility] [address] [place] [address] [place] [address] Adriane Hubbard, MECHANICAL SYSTEMS DESIGNER - POWER AND RECOVERY SHIFT ENGINEER [address] [place] [address] [facility] Start: 09-08-2025 Depression Monitoring Depression Monitoring [facility] Start: 06-21-2025 Influenza vaccination [facility] Start: 06-07-2025 End: 06-07-2025 Patient encounter procedure 06/07/2025 4:[address] [facility] [address] [place] [address] Bolivar Linder NP [address] [facility] [address] [place] [address] Peng Mann MD [address] [place] [address] [facility] Start: 06-07-2025 End: 12-08-2025 MR Cervical spine WO contrast [facility] Work Phone: Comment on above: Expected: 06/07/2025, Expires: 6 Once for 1 Occurrenc es starting 06/07/2025 until 06/07/2025 Start: 05-06-2025 End: 05-06-2025 Patient encounter procedure 05/06/2025 2:15 PM EDT Office Visit [facility] Neu[facility] - [place] [address] [place] [phone] Jie Miranda MD [address] [place], [place] [id number] [facility] Start: 03-08-2025 End: 03-08-2025 Patient encounter procedure [facility] Start: 02-10-2025 End: 02-10-2025 Patient encounter procedure [facility] Start: 02-10-2025 End: 02-10-2025 Patient encounter procedure 02/10/2025 8:30 AM EDT Office Visit [facility] [address] [place] [address] [place] [phone] Jie Miranda MD [address] [place], [place] [id number] [facility] Start: 01-28-2025 Medicare Annual Wellness (AWV) Medicare Annual Wellness (AWV) [facility] Start: 01-05-2025 Depression Monitoring Depression Monitoring [facility] Start: 01-01-2025 End: 01-01-2025 Patient encounter procedure 01/01/2025 11:30 AM EDT Office Visit [facility] [address] [place] [address] [place] [phone] Jie Miranda MD [address] [place] [address] [place] [address] [facility] Start: 12-30-2024 End: 12-30-2024 Patient encounter procedure [facility] Start: 12-29-2024 Creatinine measurement Creatinine Level [facility] Start: 12-29-2024 End: 07-01-2025 DBT Breast - left diagnostic Left diagnostic mammogram with tomosynthesis Imaging Routine Abnormal mammogram Expected: 12/29/2024, Expires: 07/01/2025 [facility] Work Phone: Comment on above: Expected: 12/29/2024, Expires: Start: 12-29-2024 Potassium measurement Potassium Level [facility] Start: 12-29-2024 End: 02-28-2026 US Breast - left limited Left breast US limited Imaging Routine Abnormal mammogram Expected: 12/29/2024, Expires: 02/28/2026 [facility] Comment on above: Expected: 12/29/2024, Expires: Start: 12-29-2024 End: 12-29-2024 Patient encounter procedure 12/29/2024 11:30 AM EDT Office Visit [facility] [address] [place] [phone] Tristin Wilcox MD [address] [place], [place] [id number] [facility] Start: 12-28-2024 End: 12-28-2024 Patient encounter procedure 12/28/2024 3:20 PM EDT Appointment [facility] [address] [place] [phone] [facility] Start: 12-28-2024 Subsequent hospital visit by physician [facility] Start: 12-21-2024 End: 12-21-2024 Patient encounter procedure [facility] Start: 12-11-2024 End: 12-11-2024 Patient encounter procedure 12/11/2024 1:00 PM EST [facility] Visit [facility] [place] [address] [facility] [address] [place] [phone] Peng Mann MD [address] [facility] [address] [place], [place] [address] [facility] [place] Start: 12-10-2024 End: 12-10-2024 Patient encounter procedure 12/10/2024 1:30 PM EST [facility] [place] [address] [place] [address] [place] [phone] Tristin Wilcox MD [address] [facility] [address] [place], [place] [phone] [facility] [place] Start: 12-08-2024 End: 12-08-2024 Patient encounter procedure 12/08/2024 3:15 PM EST [facility] Anastasia Childressd [address] [facility] [address] [place] [phone] Peng Mann MD [address] [facility] [address] [place], [place] [address] [facility] [place] Start: 12-08-2024 End: 12-08-2025 CBC panel - Blood by Automated count CBC Lab Routine Screening for deficiency anemia Expected: 12/08/2024 (Approximate), Expires: 12/08/2025 [facility] Comment on above: Expected: 12/08/2024 (Approximate), Expi res: 12/08/2025 Start: 12-08-2024 End: 12-08-2025 Comprehensive metabolic 1998 panel - Serum or Plasma Comprehensive metabolic panel Lab Routine Essential hypertension Expected: 12/08/2024 (Approximate), Expires: 12/08/2025 [facility] Work Phone: Comment on above: Expected: 12/08/2024 (Approximate), Expi res: 12/08/2025 Start: 12-08-2024 End: 12-08-2025 Lipid 1996 panel - Serum or Plasma Lipid panel Lab Routine Hyperlipidemia LDL goal <100 Expected: 12/08/2024 (Approximate), Expires: 12/08/2025 [facility] Comment on above: Expected: 12/08/2024 (Approximate), Expi res: 12/08/2025 Start: 12-08-2024 End: 12-08-2026 US Heart Transthoracic Transthoracic echocardiogram (TTE) complete with contrast, bubble, strain, and 3D PRN CV Echocardiography Routine Cardiomyopathy, unspecified type (HCC) Abnormal electrocardiogram (ECG) (EKG) Expected: 12/08/2024 (Approximate), Expires: 12/08/2026 [facility] Comment on above: Expected: 12/08/2024 (Approximate), Expi res: 12/08/2026 Start: 12-08-2024 End: 12-08-2024 Patient encounter procedure 12/08/2024 8:40 AM EST Office Visit [facility] [address] [facility] [place] [address] [place] [address] Adriane Hubbard MECHANICAL SYSTEMS DESIGNER - POWER AND RECOVERY SHIFT ENGINEER [address] [facility] [place] [place] [address] [facility] Start: 12-07-2024 End: 12-07-2024 Patient encounter procedure 12/07/2024 3:00 PM EST Office Visit [facility] [address] [facility] [place] [phone] Jie Miranda MD [address] [place] [address] [place] [address] [facility] Start: 11-16-2024 Diabetes mellitus screening Diabetes Screening [facility] Start: 11-02-2024 End: 11-02-2024 Patient encounter procedure 11/02/2024 10:[address] [facility] MRI [address] [facility] [place] [address] Anjel Larsen, MECHANICAL SYSTEMS DESIGNER - POWER AND RECOVERY SHIFT ENGINEER 1 [facility] [address] [place] [address] [facility] MRI Start: 10-30-2024 End: 10-30-2025 MR Cervical spine WO contrast MR cervical spine wo contrast Imaging Routine Neck pain Cervical myelopathy (HCC) DDD (degenerative disc disease), cervical Cervical spondylosis Expected: 10/30/2024, Expires: 10/30/2025 [facility] Work Phone: Comment on above: Expected: 10/30/2024, Expires: Start: 10-26-2024 Screening for malignant neoplasm of cervix [facility] Start: 10-26-2024 Screening for malignant neoplasm of colon [facility] Start: 10-12-2024 End: 10-12-2025 XR Lumbar spine Views W flexion and W extension XR lumbar spine 4-5 view Imaging Routine Chronic midline low back pain without sciatica Expected: 10/12/2024, Expires: 10/12/2025 [facility] Work Phone: Comment on above: Expected: 10/12/2024, Expires: Start: 10-12-2024 End: 10-12-2024 Patient encounter procedure 10/12/2024 1:40 PM EST Office Visit [facility] [address] [facility] [place] [address] Bridenthal, Adriane, MECHANICAL SYSTEMS DESIGNER - POWER AND RECOVERY SHIFT ENGINEER [address] [place] [address] [facility] Start: 09-17-2024 COVID-19 Vaccine ( season) COVID-19 Vaccine ( season) [facility] Comment on above: Postponed from 06/21/2023 (Patient Refus ed) Start: 09-17-2024 Hepatitis B Vaccines (2 of 3 - 19+ 3-dose series) Hepatitis B Vaccines (2 of 3 - 19+ 3-dose series) [facility] Comment on above: Postponed from 09/24/2005 (Patient Refus ed) Start: 09-17-2024 Hepatitis C screening Hepatitis C Screening [facility] Comment on above: Postponed from 1975 (Patient Refus ed) Start: 09-17-2024 Pneumococcal Vaccine: 65+ Years (1 - PCV) Pneumococcal Vaccine: 65+ Years (1 - PCV) [facility] Comment on above: Postponed from 1963 (Patient Refus ed) Start: 09-17-2024 Pneumococcal Vaccine: 65+ Years (1 of 2 - PCV) Pneumococcal Vaccine: 65+ Years (1 of 2 - PCV) [facility] Comment on above: Postponed from 1963 (Patient Refus ed) Start: 09-17-2024 RSV Immunization aged 60 or older (1 - 1-dose 60+ series) RSV Immunization aged 60 or older (1 - 1-dose 60+ series) [facility] Comment on above: Postponed from 2017 (Patient Refus ed) Start: 09-17-2024 RSV Immunization for Adults (1 - Risk 60-74 years 1-dose series) RSV Immunization for Adults (1 - Risk 60-74 years 1-dose series) [facility] Comment on above: Postponed from 2017 (Patient Refus ed) Start: 09-14-2024 End: 09-14-2024 Patient encounter procedure 09/14/2024 3:15 PM EST Office Visit [facility] [address] [facility] [place] [address] [place] [phone] Jie Miranda MD [address] [facility] [address] [place], [place] [phone] [facility] Start: 09-08-2024 End: 09-08-2025 XR Shoulder - right 2 Views [facility] Work Phone: Comment on above: Expected: 09/08/2024, Expires: 5 Once for 1 Occurrenc es starting 09/08/2024 until 09/08/2024 Start: 09-08-2024 End: 09-08-2024 Patient encounter procedure 09/08/2024 10:00 AM EST Office Visit [facility] [place] [address] [facility] [place] [address] [place] [address] Adriane Hubbard, SOO - POWER AND RECOVERY SHIFT ENGINEER [address] [facility] [place] [address] [place] [address] [facility] Start: 08-11-2024 End: 08-11-2024 Admission to same day surgery center 08/11/2024 9:00 AM EDT - 08/11/2024 9:[address] [facility] Endoscopy [address] [place] [phone] Mason Haynes MD [address] [place], [place] [phone] COLONOSCOPY FOR LOW RISK SCREENING [G0121] [facility] Endoscopy Comment on above: COLONOSCOPY FOR LOW RISK SCREENING [G012 1] Start: 08-11-2024 End: 08-11-2024 Colon ca scrn not hi rsk ind [facility] Gastroenterology Start: 08-11-2024 Subsequent hospital visit by physician 08/11/2024 9:00 AM EDT Hospital Encounter [facility] Endoscopy [address] [place] [address] Mason Haynes MD [address] [place], [place] [phone] [facility] Endoscopy Start: 07-08-2024 End: 07-08-2025 Bacteria identified in Urine by Culture Urine culture (clean catch) Microbiology Routine Acute left-sided low back pain without sciatica Left flank pain Expected: 07/08/2024 (Approximate), Expires: 07/08/2025 [facility] Work Phone: Comment on above: Expected: 07/08/2024 (Approximate), Expi res: 07/08/2025 Start: 07-08-2024 End: 07-08-2024 Patient encounter procedure [facility] Start: 07-02-2024 End: 07-02-2024 Patient encounter procedure 07/02/2024 2:00 PM EDT Office Visit [facility] [address] [facility] [address] [facility] [address] Jie Miranda MD [address] [place], [place] [phone] [facility] Start: 07-01-2024 Depression Monitoring Depression Monitoring [facility] Start: 07-01-2024 Depresssion Monitoring Depresssion Monitoring [facility] Start: 07-01-2024 End: 07-01-2024 Patient encounter procedure 07/01/2024 11:20 AM EDT Office Visit [facility] Medicine [address] [place], [place] [phone] Adriane Hubbard, MECHANICAL SYSTEMS DESIGNER - POWER AND RECOVERY SHIFT ENGINEER [address] [place] [address] [place] [address] [facility] Start: 06-21-2024 COVID-19 Vaccine ( season) COVID-19 Vaccine () [facility] Start: 06-21-2024 COVID-19 Vaccine () COVID-19 Vaccine () [facility] Start: 06-21-2024 Influenza vaccination [facility] Start: 05-15-2024 Creatinine measurement Creatinine Level [facility] Start: 05-15-2024 Potassium measurement Potassium Level [facility] Start: 04-19-2024 Influenza vaccination Influenza Vaccine (#1) [facility] Comment on above: Postponed from 06/21/2023 (Patient Refus ed) Start: 04-02-2024 End: 04-02-2024 Patient encounter procedure [facility] Start: 03-23-2024 End: 03-23-2025 Bacteria identified in Urine by Culture Urine culture (clean catch) Microbiology Routine Urinary tract infection symptoms Expected: 03/23/2024 (Approximate), Expires: 03/23/2025 [facility] Work Phone: Comment on above: Expected: 03/23/2024 (Approximate), Expi res: 03/23/2025 Start: 01-19-2024 Echocardiography Echocardiogram [facility] Start: 12-30-2023 End: 12-29-2024 CBC panel - Blood by Automated count CBC Lab Routine Screening for deficiency anemia Expected: 12/30/2023 (Approximate), Expires: 12/29/2024 [facility] Comment on above: Expected: 12/30/2023 (Approximate), Expi res: 12/29/2024 Start: 12-30-2023 End: 12-29-2024 Comprehensive metabolic 1998 panel - Serum or Plasma Comprehensive metabolic panel Lab Routine Essential hypertension Expected: 12/30/2023 (Approximate), Expires: 12/29/2024 [facility] Comment on above: Expected: 12/30/2023 (Approximate), Expi res: 12/29/2024 Start: 12-30-2023 End: 02-28-2025 DBT Breast - bilateral screening Bilateral screening mammogram with tomosynthesis Imaging Routine Encounter for screening mammogram for malignant neoplasm of breast Expected: 12/30/2023, Expires: 02/28/2025 [facility] Comment on above: Expected: 12/30/2023, Expires: Start: 12-30-2023 End: 12-29-2024 DXA Skeletal system.axial Views for bone density DEXA bone density axial skeleton Imaging Routine Post-menopausal Expected: 12/30/2023, Expires: 12/29/2024 [facility] [facility] Comment on above: Expected: 12/30/2023, Expires: Start: 12-30-2023 End: 12-29-2024 Lipid 1996 panel - Serum or Plasma Lipid panel Lab Routine Hyperlipidemia LDL goal <100 Expected: 12/30/2023 (Approximate), Expires: 12/29/2024 [facility] [facility] Work Phone: Comment on above: Expected: 12/30/2023 (Approximate), Expi res: 12/29/2024 Start: 12-30-2023 End: 12-30-2023 Patient encounter procedure 12/30/2023 11:20 AM EDT Office Visit [facility] [address] [facility] [place] [address] [place] [address] Adriane Hubbard, SOO - POWER AND RECOVERY SHIFT ENGINEER [address] [facility] [address] [place], [place] [phone] [facility] Start: 12-08-2023 Depresssion Monitoring Depresssion Monitoring [facility] Start: 12-06-2023 End: 12-06-2023 Patient encounter procedure 12/06/2023 1:45 PM EST Office Visit [facility] [address] [facility] [place] [address] [place] [phone] Jie Miranda MD [address] [facility] [place] [address] [facility] Start: 11-24-2023 Depresssion Monitoring Depresssion Monitoring [facility] Start: 11-14-2023 End: 11-14-2023 Patient encounter procedure 11/14/2023 2:40 PM EST Office Visit [facility] [address] [facility] [place] [place] [address] BridenthalDianca, MECHANICAL SYSTEMS DESIGNER - POWER AND RECOVERY SHIFT ENGINEER [address] [facility] [place] [place] [address] [facility] Start: 10-30-2023 Creatinine measurement Creatinine Level [facility] Start: 10-30-2023 Diabetes mellitus screening Diabetes Screening [facility] Start: 10-30-2023 Potassium measurement Potassium Level [facility] Start: 10-30-2023 End: 10-30-2023 Patient encounter procedure [facility] Start: 10-29-2023 Screening for malignant neoplasm of colon FIT [facility] Start: 10-25-2023 Depresssion Monitoring Depresssion Monitoring [facility] Start: 10-16-2023 End: 10-16-2023 Patient encounter procedure 10/16/2023 2:00 PM EST Office Visit [facility] [address] [facility] [place] [place] [address] BridenthNatalia rubinecca, MECHANICAL SYSTEMS DESIGNER - POWER AND RECOVERY SHIFT ENGINEER [address] [facility] [place] [place] [address] [facility] Start: 10-10-2023 End: 10-10-2023 Patient encounter procedure 10/10/2023 1:30 PM EST Office Visit [facility] [address] [facility] [place] [place] [address] Juvencio aDvila MD [address] [facility] [place] [address] [facility] Start: 09-17-2023 End: 09-17-2024 DXA Skeletal system Views for bone density DEXA bone density peripheral Imaging Routine Post-menopausal Expected: 09/17/2023, Expires: 09/17/2024 [facility] Work Phone: Comment on above: Expected: 09/17/2023, Expires: Start: 09-17-2023 End: 09-17-2023 Patient encounter procedure 09/17/2023 2:00 PM EST Office Visit [facility] [address] [facility] [place] [place] [address] [place] [address] Adriane Hubbard, MECHANICAL SYSTEMS DESIGNER - POWER AND RECOVERY SHIFT ENGINEER [address] [facility] [place] [place] [address] [place] [address] [facility] Start: 09-05-2023 End: 09-05-2023 Patient encounter procedure 09/05/2023 8:15 AM EST Office Visit [facility] [address] [facility] [address] [facility] [phone] Jie Miranda MD [address] [place] [address] [facility] Start: 08-23-2023 End: 08-23-2023 Patient encounter procedure 08/23/2023 7:[address] [facility] [address] [place] [phone] Jie Miranda MD [address] [facility] [place] [address] [facility] [address] Start: 08-23-2023 Subsequent hospital visit by physician 08/23/2023 7:45 AM EDT Hospital Encounter [facility] [address] [place] [phone] Jie Miranda MD [address] [facility] [place] [address] [facility] [address] Start: 08-19-2023 End: 08-19-2024 Thyrotropin [Units/volume] in Serum or Plasma TSH Lab Routine Weight loss Hot flashes Expected: 08/19/2023 (Approximate), Expires: 08/19/2024 [facility] [email or web address] Work Phone: Comment on above: Expected: 08/19/2023 (Approximate), Expi res: 08/19/2024 Start: 08-15-2023 End: 08-15-2023 Patient encounter procedure 08/15/2023 2:15 PM EDT Office Visit [facility] [address] [place] [address] [place] [address] Juvencio Davila MD [address] [place] [address] [place], [place] [phone] [facility] Start: 08-01-2023 End: 09-01-2023 Amyloid 42/40 ratio plasma - Miscellaneous Test [facility] Comment on above: Expected: 08/01/2023 (Approximate), Expi res: 09/01/2023 Start: 08-01-2023 End: 10-01-2023 CT Head WO contrast CT head wo IV contrast Imaging Routine Mild dementia without behavioral disturbance, psychotic disturbance, mood disturbance, or anxiety, unspecified dementia type (HCC) Expected: 08/01/2023, Expires: 10/01/2023 [facility] [facility] Work Phone: Comment on above: Expected: 08/01/2023, Expires: Start: 08-01-2023 End: 08-01-2023 Patient encounter procedure 08/01/2023 11:30 AM EDT Office Visit [facility] [address] [place] [address] [place] [phone] Jie Miranda MD [address] [place] [phone] [facility] Start: 06-27-2023 End: 06-27-2023 Patient encounter procedure [facility] Start: 06-21-2023 COVID-19 Vaccine ( season) COVID-19 Vaccine () [facility] Start: 06-21-2023 Influenza vaccination Influenza Vaccine (#1) [facility] Start: 06-10-2023 End: 06-10-2023 Patient encounter procedure 06/10/2023 3:00 PM EDT Office Visit [address] [place] [address] Juvencio Davila MD [address] [place] [address], [place] [address] [facility] Start: 06-03-2023 End: 06-03-2024 Sleep study with pap titration Sleep study with pap titration Sleep Center Routine TERESA on CPAP Expected: 06/03/2023 (Approximate), Expires: 06/03/2024 [facility] Work Phone: Comment on above: Expected: 06/03/2023 (Approximate), Expi res: 06/03/2024 Start: 05-27-2023 End: 05-27-2023 Patient encounter procedure 05/27/2023 10:00 AM EDT Office Visit [address] [place] [address] Juvencio Davila MD [address] [place] [address] [place] [address] [facility] Start: 05-22-2023 End: 05-22-2023 Patient encounter procedure 05/22/2023 9:45 AM EDT Office Visit [address] [place] [address] Juvencio Davila MD [address] [place] [address] [place] [address] [facility] Start: 05-08-2023 End: 05-08-2024 Comprehensive metabolic 1998 panel - Serum or Plasma Comprehensive metabolic panel Lab Routine Drug-induced movement disorder Expected: 05/08/2023 (Approximate), Expires: 05/08/2024 [facility] [email or web address] Work Phone: Comment on above: Expected: 05/08/2023 (Approximate), Expi res: 05/08/2024 Start: 04-28-2023 Depresssion Monitoring Depresssion Monitoring [facility] Start: 04-24-2023 End: 04-24-2023 Patient encounter procedure 04/24/2023 1:15 PM EDT Office Visit [facility] [address] [place] [address] [place] [address] Juvencio Davila MD [address] [place] [address] [facility] Start: 03-26-2023 End: 03-26-2024 Large Joint Injection/Arthrocentesi s Large Joint Injection/Arthrocentesis Procedures Routine Greater trochanteric bursitis of right hip Expected: 03/26/2023 (Approximate), Expires: 03/26/2024 [facility] [facility] Work Phone: Comment on above: Expected: 03/26/2023 (Approximate), Expi res: 03/26/2024 Start: 01-25-2023 Screening for malignant neoplasm of breast Mammogram [facility] Start: 11-16-2022 Creatinine measurement Creatinine Level [facility] Start: 11-16-2022 Potassium measurement Potassium Level [facility] Start: 10-30-2022 End: 10-30-2022 ambulatory 10/30/2022 Lab Family Medicine [facility] Start: 10-29-2022 End: 10-29-2023 Comprehensive metabolic 1998 panel - Serum or Plasma Comprehensive metabolic panel Lab Routine Essential hypertension Prediabetes Expected: 10/29/2022 (Approximate), Expires: 10/29/2023 [facility] Comment on above: Expected: 10/29/2022 (Approximate), Expi res: 10/29/2023 Start: 10-29-2022 End: 10-29-2023 Hemoglobin A1c/Hemoglobin.total in Blood Hemoglobin A1c Lab Routine Prediabetes Expected: 10/29/2022 (Approximate), Expires: 10/29/2023 [facility] [facility] Comment on above: Expected: 10/29/2022 (Approximate), Expi res: 10/29/2023 Start: 10-29-2022 End: 10-29-2023 Hemoglobin.gastrointest inal.lower [Presence] in Stool by Immunoassay Fecal Immunochemical Test Microbiology Routine Screening for colon cancer Expected: 10/29/2022 (Approximate), Expires: 10/29/2023 [facility] [facility] Comment on above: Expected: 10/29/2022 (Approximate), Expi res: 10/29/2023 Start: 10-29-2022 End: 10-29-2023 Lipid 1996 panel - Serum or Plasma Lipid panel Lab Routine Hyperlipidemia LDL goal <100 Expected: 10/29/2022 (Approximate), Expires: 10/29/2023 [facility] [facility] Work Phone: Comment on above: Expected: 10/29/2022 (Approximate), Expi res: 10/29/2023 Start: 10-29-2022 End: 12-28-2023 MG Breast - bilateral Screening Bilateral screening mammogram Imaging Routine Well female exam with routine gynecological exam Expected: 10/29/2022, Expires: 12/28/2023 [facility] [facility] Comment on above: Expected: 10/29/2022, Expires: Start: 10-26-2022 Screening for malignant neoplasm of colon [facility] Start: 03-03-2021 COVID-19 Vaccine (3 - Booster for Pfizer series) COVID-19 Vaccine (3 - Booster for Pfizer series) [facility] Start: 03-03-2021 COVID-19 Vaccine (3 - Pfizer series) COVID-19 Vaccine (3 - Pfizer series) [facility] Start: 2017 RSV Immunization aged 60 or older (1 - 1-dose 60+ series) RSV Immunization aged 60 or older (1 - 1-dose 60+ series) [facility] Start: 2017 RSV Immunization for Adults (1 - Risk 60-74 years 1-dose series) RSV Immunization for Adults (1 - Risk 60-74 years 1-dose series) [facility] Start: 03-15-2017 DTaP/Tdap/Td Vaccines (2 - Td or Tdap) DTaP/Tdap/Td Vaccines (2 - Td or Tdap) [facility] Start: 09-24-2005 Hepatitis B Vaccines (2 of 3 - 19+ 3-dose series) Hepatitis B Vaccines (2 of 3 - 19+ 3-dose series) [facility] Start: 09-24-2005 Hepatitis B Vaccines (2 of 3 - 3-dose series) Hepatitis B Vaccines (2 of 3 - 3-dose series) [facility] Start: 1987 Screening for malignant neoplasm of cervix HPV/Cotest [facility] Start: 1976 Pneumococcal Vaccine: 50+ Years (1 of 2 - PCV) Pneumococcal Vaccine: 50+ Years (1 of 2 - PCV) [facility] Start: 1975 Hepatitis C screening Hepatitis C Screening [facility] Start: 1963 Pneumococcal Vaccine: 65+ Years (1 - PCV) Pneumococcal Vaccine: 65+ Years (1 - PCV) [facility] Start: 01-07-1958 Examination of skin Derm Melanoma Skin Check [facility] Start: 1957 Annual wellness visit Medicare Initial Physical (IPPE) [facility] Start: 1957 Echocardiography Echocardiogram [facility] Start: 1957 Medicare Annual Wellness (AWV) Medicare Annual Wellness (AWV) [facility] Start: 1957 Screening for malignant neoplasm of colon [facility] Start: 1957 Screening for osteoporosis Bone Density Scan [facility] [facility] End: 08-23-2023 CT Head WO contrast [facility] [facility] Comment on above: Once for 1 Occurrences starting 08/23/20 23 until 08/23/2023 Cytology Cervical or vaginal smear or scraping study Pap Smear Pathology and Cytology Routine Well female exam with routine gynecological exam Ordered: 10/29/2022 [facility] [employer] Comment on above: Ordered: 10/29/2022 End: 07-22-2025 MR Thoracic spine WO and W contrast IV [facility] [email or web address] Work Phone: Comment on above: Once for 1 Occurrences starting 07/22/20 25 until 07/22/2025 OUTSIDE PROCEDURE SCAN OUTSIDE P ROCEDURE SCAN Procedures Ordered: 08/22/2023 [facility] [employer] [facility] Comment on above: Ordered: 08/22/2023 Tissue exam Tissue exam Path ology and Cytology Routine 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 Or[facility]: 10[facility]10/2023 [facility]: Comment on above: Ordered: 10/10/2023 [facility] exam [facility] Work Phone: Comment on above: Release Upon Ordering for 1 Occurrences starting 08/11/2024 End: 10-16-2024 XR Lumbar spine Views W flexion and W extension [facility] Work Phone: Comment on above: Once for 1 Occurrences starting 10/16/20 24 until 10/16/2024 Immunizations Immunization Date Immunization Notes Care Provider Sivan bone 10-29-2022 zoster vaccine recombinant H keily Bustillo MECHANICAL SYSTEMS DESIGNER - POWER AND RECOVERY SHIFT ENGINEER Work Phone: [facility] [employer] 08-22-2022 influenza, injectabl e, quadrivalent, preservative free Shyla Bustillo MECHANICAL SYSTEMS DESIGNER - POWER AND RECOVERY SHIFT ENGINEER Work Phone: [facility] [employer] 08-22-2022 influenza virus vacc ine, unspecified formulation Juvencio Davila MD Work Phone: [facility] [employer] 05-01-2022 zoster vaccine recombinant H keily Bustillo MECHANICAL SYSTEMS DESIGNER - POWER AND RECOVERY SHIFT ENGINEER Work Phone: [facility] [employer] 08-21-2020 influenza virus vacc ine, unspecified formulation Shyla Bustillo MECHANICAL SYSTEMS DESIGNER - POWER AND RECOVERY SHIFT ENGINEER Work Phone: [facility] [employer] 08-20-2019 influenza virus vacc ine, unspecified formulation Shyla Bustillo MECHANICAL SYSTEMS DESIGNER - POWER AND RECOVERY SHIFT ENGINEER Work Phone: [facility] [employer] 08-08-2018 influenza virus vacc ine, unspecified formulation Shyla Bustillo MECHANICAL SYSTEMS DESIGNER - POWER AND RECOVERY SHIFT ENGINEER Work Phone: [facility] [employer] 08-09-2017 influenza virus vacc ine, unspecified formulation Shyla Bustillo MECHANICAL SYSTEMS DESIGNER - POWER AND RECOVERY SHIFT ENGINEER Work Phone: [facility] [employer] 02-15-2017 tetanus toxoid, redu goldie diphtheria toxoid, and acellular pertussis vaccine, adsorbed Shyla Bustillo MECHANICAL SYSTEMS DESIGNER - POWER AND RECOVERY SHIFT ENGINEER Work Phone: [facility] 08-27-2005 hepatitis B vaccine, adult dosage Shyla Bustillo MECHANICAL SYSTEMS DESIGNER - POWER AND RECOVERY SHIFT ENGINEER Work Phone: [facility] [employer] Payers Date Payer Category Payer Self-pay [id number] 2023 Medicare [id number] 2023 Medicare supplementa l policy (as second payer) AARP [id number] 2023 Unknown AAR AARP [id number] 2023-Present [address] [place] [address] Supplement [id number] 2023 Medicare [id number] 2023 Unknown [id number] 2011 Private Health Insurance 1955 Unknown [id number] Private Health Insurance [id number] Unknown [id number] Unknown [id number] Unknown [id number] Unknown [id number] Unknown [id number] Unknown [id number] Unknown [id number] Social History Date Type Detail Facility Start: 12-04-2021 End: 01-03-2023 Tobacco smoking status NHIS Unknown if ever smoked [facility] Start: 02-26-2019 None [facility] Start: 02-26-2019 Spouse/ Signif icant Other [facility] Start: 03-03-2019 Non-smoker [facility] Start: 1955 Sex Assigned At Female [facility] Start: 10-29-2022 End: 03-08-2025 Alcohol intake Current non-drinker of alcohol (finding) [facility] Start: 1955 Sex Assigned At Not on file [facility] Start: 10-29-2022 End: 03-08-2025 History of Social function [facility] Start: 10-29-2022 End: 03-08-2025 Tobacco use panel [facility] Start: 10-19-2022 End: 06-27-2023 Exposure to SARS-CoV-2 (event) Not sure [facility] Adolescent depressio n screening assessment 7 [facility] How often to you hav e a drink containing alcohol? Never [facility] (I/We) worried wheth er (my/our) food would run out before (I/we) got money to buy more. Never true [facility] In the past 12 month s, was there a time when you were not able to pay the mortgage or rent on time? No [facility] Start: 05-21-2022 Sex Female (finding) [facility] Are you now , , , , never or living with a partner? [facility] How many standard drinks containing alcohol do you have on a typical day? 1 or 2 [facility] Do you feel stress - tense, restless, nervous, or anxious, or unable to sleep at night because your mind is troubled all the time - these days [OSQ] To some extent [facility] Functional Status Date Assessment Result Facility 03-08-2025 Generalized anxiety disorder 7 item (ELIZABETH-7) [facility] 03-08-2025 Feeling nervous, anx ious or on edge 1 03/08/2025 9:47 AM EDT Mychart, Generic Several days [facility] 03-08-2025 Over the past 2 week s have you not been able to stop or control worrying 1 03/08/2025 9:47 AM EDT Mychart, Generic Several days [facility] 03-08-2025 Worrying too much ab out different things 2 03/08/2025 9:47 AM EDT Mychart, Generic More than half the days [facility] 03-08-2025 Trouble relaxing 1 03/08/2025 9: 47 AM EDT Mychart, Generic Several days [facility] 03-08-2025 Being so restless th at it is hard to sit still 1 03/08/2025 9:47 AM EDT Mychart, Generic Several days [facility] 03-08-2025 Becoming easily anno yed or irritable. 2 03/08/2025 9:47 AM EDT Mychart, Generic More than half the days [facility] 03-08-2025 Feeling afraid as if something awful might happen 1 03/08/2025 9:47 AM EDT Mychart, Generic Several days [facility] 03-08-2025 Little interest or p ann-marie in doing things Several days 03/08/2025 9:45 AM EDT Mychart, Generic Several days [facility] 03-08-2025 Feeling down, depres sed, or hopeless Several days 03/08/2025 9:45 AM EDT Mychart, Generic Several days [facility] 03-08-2025 Trouble falling or s taying asleep, or sleeping too much Nearly every day 03/08/2025 9:45 AM EDT Mychart, Generic Nearly every day [facility] 03-08-2025 Feeling tired or hav ing little energy More than half the days 03/08/2025 9:45 AM EDT Mychart, Generic More than half the days [facility] 03-08-2025 Poor appetite or overeating Kerline ral days 03/08/2025 9:45 AM EDT Mychart, Generic Several days [facility] 03-08-2025 Feeling bad about yo urself-or that you are a failure or have let yourself or your family down More than half the days 03/08/2025 9:45 AM EDT Mychart, Generic More than half the days [facility] 03-08-2025 Trouble concentratin g on things, such as reading the newspaper or watching television More than half the days 03/08/2025 9:45 AM EDT Mychart, Generic More than half the days [facility] 03-08-2025 Moving or speaking s o slowly that other people could have noticed. Or the opposite - being so fidgety or restless that you have been moving around a lot more than usual Nearly every day 03/08/2025 9:45 AM EDT Mychart, Generic Nearly every day [facility] 03-08-2025 Thoughts that you wo uld be better off , or of hurting yourself in some way Not at all 03/08/2025 9:45 AM EDT Mychart, Generic Not at all [facility] 03-08-2025 How difficult have t hese problems made it for you to do your work, take care of things at home, or get along with other people? Somewhat difficult 03/08/2025 9:45 AM EDT Mychart, Generic Somewhat difficult [facility] 03-08-2025 Total score [AUDIT-C] 0 03/08/20 9:42 AM EDT Mychart, Generic [facility] 03-08-2025 How often to you hav e a drink containing alcohol? Never 03/08/2025 9:42 AM EDT Mychart, Generic Never [facility] [employer] [facility] 03-08-[address] inks containing alcohol do you have on a typical day? 1 or 2 03/08/2025 9:42 AM EDT Mychart, Generic 1 or 2 [facility] 03-08-2025 How often do you hav e 6 or more drinks on 1 occasion? Never 03/08/2025 9:42 AM EDT Mychart, Generic Never [facility] 03-08-2025 Patient Health Quest ionnaire 2 item (PHQ-2) [Reported] [facility] 03-08-2025 PHQ-9 quick depressi on assessment panel [Reported.PHQ] [facility] Clinical Notes 10-29-2022 to 08-09-2025 Telephone Encounter [...] by mouth daily. Authorizing Provider: VIOLET CASTELLANOS [facility] 08-09-2025 Miscellaneous Notes Please schedule patient for follow up appointment for continued refills. Requested Prescriptions Signed Prescriptions Disp Refills valbenazine tosylate (Ingrezza) 40 MG capsule 30 capsule 1 Sig: Take 1 capsule (40 mg) by mouth daily. Authorizing Provider: VIOLET CASTELLANOS documented in this encounter [facility] 06-24-2025 Telephone encounter Note Reviewed chart. Refill appropriate. RX sent. [facility] 06-24-2025 Miscellaneous Notes Reviewed chart. Refill appropriate. RX sent. Prescription Request: SIMVASTATIN 40 MG TABLET Last medication check: 03/08/25 Last physical exam 12/08/24 Next scheduled appointment: 10/12/25 Last date of refill on this medication 01/01/25 ( qty 90 refill 1) documented in this encounter [facility] 06-24-2025 Telephone encounter Note Prescription Request: SIMVASTATIN 40 MG TABLET Last medication check: 03/08/25 Last physical exam 12/08/24 Next scheduled appointment: 10/12/25 Last date of refill on this medication 01/01/25 ( qty 90 refill 1) [facility] 05-06-2025 Telephone encounter Note Name of Caller: [employer] Contact Reason for Appointment: Daughter will call back to schedule the 05/06/25 missed appointment when she is able to check transportation for [place]. Please be advised. Office Name: [facility] Neuro [facility] 05-06-2025 Miscellaneous Notes Name of Caller: Leanna Contact Reason for Appointment: Daughter will call back to schedule the 05/06/25 missed appointment when she is able to check transportation for [place]. Please be advised. Office Name: [facility] Neuro documented in this encounter [facility] 05-03-2025 Telephone encounter Note Requested Prescriptions Signed Prescriptions Disp Refills valbenazine tosylate (Ingrezza) 40 MG capsule 30 capsule 3 Sig: Take 1 capsule (40 mg) by mouth daily. Authorizing Provider: VIOLET CASTELLANOS [facility] 05-03-2025 Miscellaneous Notes Requested Prescriptions Signed Prescriptions Disp Refills valbenazine tosylate (Ingrezza) 40 MG capsule 30 capsule 3 Sig: Take 1 capsule (40 mg) by mouth daily. Authorizing Provider: VIOLET CASTELLANOS documented in this encounter [facility] 03-08-2025 Evaluation + Plan note Associated Problem(s): Congestive heart failure (HCC) Stable. Followed by cardiology continue current medications [facility] 03-08-2025 Miscellaneous Notes Associated Problem(s): Congestive heart [...] follow-up with neurology documented in this encounter [facility] 03-08-2025 Evaluation + Plan note Associated Problem(s): Essential hypertension Controlled. Blood pressure 117/72, continue metoprolol 25 mg daily and lisinopril 2.5 mg daily [facility] 03-08-2025 Evaluation + Plan note Associated Problem(s): Anxiety Follow-up with psychiatry as directed [facility] 03-08-2025 Evaluation + Plan note Associated Problem(s): TERESA on CPAP Patient wearing CPAP nightly. Reports good sleep and feels well rested during the daytime. [facility] 03-08-2025 Evaluation + Plan note Associated Problem(s): Mild dementia without behavioral disturbance, psychotic disturbance, mood disturbance, or anxiety, unspecified dementia type (HCC) Stable. Continue to follow-up with psychiatry and neurology [facility] 03-08-2025 Evaluation + Plan note Associated Problem(s): Tardive dyskinesia Improving. Continue follow-up with neurology [facility] 03-08-2025 History of Presen t illness Narrative Patient was identified by name and Date of . Health Maintenance Due Topic Derm Melanoma Skin Check-NEEDS COMPLETED Depression Monitoring-completed SDOH/ELIZABETH/PHQ-need completed-sent via [facility] AWV/fasting labs---needs scheduled for 11/2025 Images [...] for this visit. documented in this encounter [facility] 03-08-2025 Instructions Janki Weems - 03/08/2025 10:20 AM EDT documented in this encounter [facility] 03-08-2025 Miscellaneous Notes Reviewed chart. Refill appropriate. RX sent. Prescription Request: FOLIC ACID 1 MG TABLET Last medication check: 12/08/24 Last physical exam: 12/08/24 Next scheduled appointment: 03/08/25 Last date of refill on this medication 09/03/24 ( qty 90 refill 1) documented in this encounter [facility] 03-08-2025 Telephone encounter Note Reviewed chart. Refill appropriate. RX sent. [facility] 03-08-2025 Telephone encounter Note Prescription Request: FOLIC ACID 1 MG TABLET Last medication check: 12/08/24 Last physical exam: 12/08/24 Next scheduled appointment: 03/08/25 Last date of refill on this medication 09/03/24 ( qty 90 refill 1) [facility] 03-05-2025 Telephone encounter Note Crystal notified. No further action needed. Closing encounter. [facility] 03-05-2025 Miscellaneous Notes Crystal notified. No further action needed. Closing encounter. Requested Prescriptions Signed Prescriptions Disp Refills amantadine (Symmetrel) 100 MG tablet 180 tablet 3 Sig: Take 1 tablet (100 mg) by mouth 2 times daily. Authorizing Provider: VIOLET CASTELLANOS Name of caller: Leanna Contact phone number: [phone] Relationship to Patient: family member daughter Provider: Dr Miranda Practice: Neurology Chief Complaint/Reason for Call: Leanna called stating that she called [facility] for a refill on patients amantadine (Symmetrel) 100 MG tablet and was told that medication had been discontinued. Script was sent to the [facility] and Leanna stated it should have gone to the [facility] on file. Please advise. Best time of day caller can be reached: Any Patient advised that office/PCP has 24-48 business hours to return their call: N/A documented in this encounter [facility] 03-05-2025 Telephone encounter Note Requested Prescriptions Signed Prescriptions Disp Refills amantadine (Symmetrel) 100 MG tablet 180 tablet 3 Sig: Take 1 tablet (100 mg) by mouth 2 times daily. Authorizing Provider: VIOLET CASTELLANOS [facility] 03-05-2025 Telephone encounter Note Name of caller: Leanna Contact phone number: [phone] Relationship to Patient: family member daughter Provider: Dr Miranda Practice: Neurology Chief Complaint/Reason for Call: Leanna called stating that she called [facility] for a refill on patients amantadine (Symmetrel) 100 MG tablet and was told that medication had been discontinued. Script was sent to the [facility] and Leanna stated it should have gone to the [facility] on file. Please advise. Best time of day caller can be reached: Any Patient advised that office/PCP has 24-48 business hours to return their call: N/A [facility] 03-02-2025 Telephone encounter Note Prescription Request: METOPROLOL SUCC ER 25 MG TAB Last medication check: 12/08/24 Last physical exam: 12/08/24 Next scheduled appointment: 03/08/25 Last date of refill on this medication 09/07/24 ( qty 90 refill 1) [facility] 03-02-2025 Miscellaneous Notes Prescription Request: METOPROLOL SUCC ER 25 MG TAB Last medication check: 12/08/24 Last physical exam: 12/08/24 Next scheduled appointment: 03/08/25 Last date of refill on this medication 09/07/24 ( qty 90 refill 1) documented in this encounter [facility] 02-10-2025 History of Presen t illness Narrative [...] Jie Miranda MD documented in this encounter [facility] 01-06-2025 Telephone encounter Note Requested Prescriptions Signed Prescriptions Disp Refills valbenazine tosylate (Ingrezza) 40 MG capsule 30 capsule 3 Sig: Take 1 capsule (40 mg) by mouth daily. Authorizing Provider: VIOLET CASTELLANOS [facility] 01-06-2025 Miscellaneous Notes Requested Prescriptions Signed Prescriptions Disp Refills valbenazine tosylate (Ingrezza) 40 MG capsule 30 capsule 3 Sig: Take 1 capsule (40 mg) by mouth daily. Authorizing Provider: VIOLET CASTELLANOS documented in this encounter [facility] 01-01-2025 History of Presen t illness Narrative [...] Jie Miranda MD documented in this encounter [facility] 12-29-2024 Telephone encounter Note Spoke to patients gabriela Ram, who is listed as a contact we can speak to. Agreeable to further testing. [facility] 12-29-2024 Telephone encounter Note ----- Message from SOO Grant CNP sent at 12/28/2024 5:01 PM EDT ----- Mammogram- asymmetry noted in the left breast, recommend diagnostic mammogram left with left breast ultrasound to further evaluate. [facility] 12-29-2024 Miscellaneous Notes Spoke to patients gabriela Ram, who is listed as a contact we can speak to. Agreeable to further testing. ----- Message from SOO Grant CNP sent at 12/28/2024 5:01 PM EDT ----- Mammogram- asymmetry noted in the left breast, recommend diagnostic mammogram left with left breast ultrasound to further evaluate. documented in this encounter [facility] 12-23-2024 Telephone encounter Note New rx sent [facility] 12-23-2024 Note Addended by: ADRIANE ROGERS on: 12/23/2024 09:42 AM Modules accepted: Orders [facility] 12-23-2024 Note Addended by: ADRIANE ROGERS on: 12/23/2024 09:42 AM Modules accepted: Orders [facility] 12-23-2024 Note Addended by: ADRIANE ROGERS on: 12/23/2024 09:42 AM Modules accepted: Orders [facility] 12-23-2024 Miscellaneous Notes New rx sent Addended by: ADRIANE HUBBARD on: 12/23/2024 09:42 AM Modules accepted: Orders Pharmacy does not stock the 500-5 mg-mcg tablets; they can provide 600-5 mg-mcg. Please advise, can we send new rx? Name of caller: Bonita @ [facility] location Contact phone number: [phone] Relationship to Patient: Pharmacy Provider: Adriane Hubbard Practice: [facility] Chief Complaint/Reason for Call: The following was called in to [facility] for patient 12/22/24: Calcium Carb-Cholecalciferol 500-5 MG-MCG tablet tablet [[id number]] Order Details Dose: 2 tablet Route: Oral [...] asking for you to send this to [facility] as a prescription since her insurance should pay for some of it if not all of it. ----- Message from SOO Grant CNP sent at 12/22/2024 7:16 AM EST ----- Dexa Scan shows osteopenia. Recommend calcium 1200 mg/day and vit d 2,000 international units daily, weight bearing exercise. Repeat dexa in 2-3 years documented in this encounter [facility] 12-23-2024 Telephone encounter Note Pharmacy does not stock the 500-5 mg-mcg tablets; they can provide 600-5 mg-mcg. Please advise, can we send new rx? [facility] 12-23-2024 Telephone encounter Note Name of caller: Bonita @ [facility] location Contact phone number: [phone] Relationship to Patient: Pharmacy Provider: Adriane Hubbard Practice: [facility] Chief Complaint/Reason for Call: The following was called in to [facility] for patient 12/22/24: Calcium Carb-Cholecalciferol 500-5 MG-MCG tablet tablet [[id number]] Order Details Dose: 2 tablet Route: Oral Frequency: Daily Dispense Quantity: 60 tablet Refills: 5 Sig: Take 2 tablets by mouth daily. Pharmacy does not stock the 500-5 mg-mcg tablets; they can provide 600-5 mg-mcg. Please advise if okay to change. Best time of day caller can be reached: any Patient advised that office/PCP has 24-48 business hours to return their call: No [facility] 12-22-2024 Telephone encounter Note Maeied, Leanna is asking for you to send this to [facility] as a prescription since her insurance should pay for some of it if not all of it. ----- Message from SOO Grant CNP sent at 12/22/2024 7:16 AM EST ----- Dexa Scan shows osteopenia. Recommend calcium 1200 mg/day and vit d 2,000 international units daily, weight bearing exercise. Repeat dexa in 2-3 years [facility] 12-22-2024 Miscellaneous Notes Sophia, Leanna is asking for you to send this to [facility] as a prescription since her insurance should pay for some of it if not all of it. ----- Message from SOO Grant CNP sent at 12/22/2024 7:16 AM EST ----- Dexa Scan shows osteopenia. Recommend calcium 1200 mg/day and vit d 2,000 international units daily, weight bearing exercise. Repeat dexa in 2-3 years documented in this encounter [facility] 12-10-2024 History of Presen t illness Narrative Images from the original note were not included. [facility] [address] [place] [address] [place] [id number] Dept: [phone] Dept 12/10/2024 Chief Complaint Patient presents with [...] 08/11/2024 Performed by Mason Haynes MD at [facility] ENDOSCOPY COLONOSCOPY W/ BIOPSIES AND POLYPECTOMY N/A 08/11/2024 Performed by Msaon Haynes MD at [facility] ENDOSCOPY TONSILLECTOMY (HISTORICAL) WRIST SURGERY Past [...] MOUTH EVERY DAY 90 tablet 1 HYDROcodone-acetaminophen ([place]) 5-325 MG tablet Take 1 tablet by [...] of head of right radius, initial encounter [facility] Orthopedics Hand/Wrist Upper Extremities - [place] [facility] I discussed with Kamila the natural [...] as tolerated as well. She may use xaxl-ynr-skidnod pain medication as needed. The above diagnosis [...] MD Orthopedic Hand and Upper Extremity Surgery [facility] Department of Orthopaedics 12/10/2024 at 1:28 PM (Please note that portions of this note may have been completed with a voice recognition program. Efforts were made to edit the dictations but occasionally words are mis-transcribed.) documented in this encounter [facility] 12-08-2024 Evaluation + Plan note Associated Problem(s): Tardive dyskinesia Improving. Continue follow-up with neurology [facility] 12-08-2024 Miscellaneous Notes Associated Problem(s): Tardive dyskinesia [...] psychiatry and neurology documented in this encounter [facility] 12-08-2024 Evaluation + Plan note Associated Problem(s): Closed fracture of right upper extremity Follow-up with orthopedic as directed [facility] 12-08-2024 Evaluation + Plan note Associated Problem(s): Essential hypertension Controlled. Blood pressure 137/81, continue metoprolol 25 mg daily and lisinopril 2.5 mg daily [facility] 12-08-2024 Evaluation + Plan note Associated Problem(s): Hyperlipidemia LDL goal <100 Check lipids, continue simvastatin 40 mg daily [facility] 12-08-2024 Evaluation + Plan note Associated Problem(s): Cardiomyopathy (HCC) Stable. Is due for echocardiogram. Continue current medications [facility] 12-08-2024 Evaluation + Plan note Associated Problem(s): Congestive heart failure (HCC) Stable. Is due for her echocardiogram, continue current medications [facility] 12-08-2024 Evaluation + Plan note Associated Problem(s): Parkinson's disease without dyskinesia or fluctuating manifestations (HCC) Stable, managed by neurology, follow-up with neurology [facility] 12-08-2024 Evaluation + Plan note Associated Problem(s): Mild dementia without behavioral disturbance, psychotic disturbance, mood disturbance, or anxiety, unspecified dementia type (HCC) Stable. Continue to follow-up with psychiatry and neurology [facility] 12-08-2024 History of Presen t illness Narrative Images from the original note were not included. [facility] - [address] [place] [id number] Dept: [phone] Dept Kamila Joseph 1955 [id number] 12/08/2024 Problem List: Neck pain Cervical spondylosis [...] MOUTH EVERY DAY 90 tablet 1 HYDROcodone-acetaminophen ([place]) 5-325 MG tablet Take 1 tablet by [...] 08/11/2024 Performed by Mason Haynes MD at [facility] COLONOSCOPY W/ BIOPSIES AND POLYPECTOMY N/A 08/11/2024 Performed by Mason Haynes MD at [facility] TONSILLECTOMY (HISTORICAL) WRIST SURGERY Social [...] may have occurred documented in this encounter [facility] 12-08-2024 Instructions Deborah Valenzuela MA - 12/08/2024 3:15 PM EST If your insurance does not change you may Schedule MRI for around 06/07/2025. Once you have this scheduled you can schedule a follow-up with Dr. Mann to review MRI documented in this encounter [facility] 12-08-2024 History of Presen t illness Narrative [...] from the original note were not included. [address] [address] Dept: [phone] Dept Chief Complaint: Kamila Joseph is an [...] MOUTH EVERY DAY 90 tablet 1 HYDROcodone-acetaminophen ([place]) 5-325 MG tablet Take 1 tablet by [...] that her mood is pretty good-she sees [place] [facility] in [place] Hypertension-blood pressure has been good is currently [...] to make appointment with his / her editorial specialist Safety: Safety Do you have a [...] severe depression (07/08/2024) documented in this encounter [facility] 12-08-2024 Instructions SOO Grant CNP - 12/08/2024 [...] Recommendations: A preventive eye exam by an editorial specialist is recommended every 1-2 years to screen for glaucoma, cataracts, macular degeneration, and other eye disorders. A preventive dental visit is recommended every 6 months. Try to get at least 150 minutes of exercise per week or 10,000 steps per day on a pedometer. You need 1200-1500mg of calcium and 3891-6961 international units of vitamin D per day. [...] or a motorcycle documented in this encounter [facility] 12-07-2024 History of Presen t illness Narrative [...] by mouth daily. 30 capsule 3 HYDROcodone-acetaminophen ([place]) 5-325 MG tablet Take 1 tablet by [...] of right upper extremity, initial encounter HYDROcodone-acetaminophen ([place]) 5-325 MG tablet 2. Tardive dyskinesia Plan: [...] Miranda MD . documented in this encounter [facility] 12-05-2024 Emergency department Note Discharge teaching completed. Pt verbalizes understanding of medications, times to return to the ED, and follow up care discussed. Pt is stable and ambulatory upon discharge. Pt is a/o x 4; breathing is even and unlabored on room air. No distress noted. Pt leaves ED with all belongings. [facility] 12-05-2024 Note Discharge teaching c ompleted. Pt verbalizes understanding of medications, times to return to the ED, and follow up care discussed. Pt is stable and ambulatory upon discharge. Pt is a/o x 4; breathing is even and unlabored on room air. No distress noted. Pt leaves ED with all belongings. [facility] 12-05-2024 Emergency department Note Discharge teaching completed. [...] otherwise acutely negative except as in the [place]. PAST MEDICAL HISTORY Past Medical History: Diagnosis [...] 08/11/2024 Performed by Mason Haynes MD at [facility] COLONOSCOPY W/ BIOPSIES AND POLYPECTOMY N/A 08/11/2024 Performed by Mason Haynes MD at [facility] TONSILLECTOMY (HISTORICAL) WRIST SURGERY CURRENT [...] numbness and pain Alternatives discussed: No treatment [place] protocol: Procedure explained and questions answered to [...] initial encounter DISPOSITION/PLAN dc PATIENT REFERRED TO: [facility] [place] [address] [place] [address] Dr Paul [place] [phone] DISCHARGE MEDICATIONS: Discharge Medication List as of [...] DO 12/06/24 0420 documented in this encounter [facility] 12-05-2024 Physician Emergency department Note Associated Order(s): [...] otherwise acutely negative except as in the [place]. PAST MEDICAL HISTORY Past Medical History: Diagnosis [...] 08/11/2024 Performed by Mason Haynes MD at [facility] COLONOSCOPY W/ BIOPSIES AND POLYPECTOMY N/A 08/11/2024 Performed by Mason Haynes MD at [facility] TONSILLECTOMY (HISTORICAL) WRIST SURGERY CURRENT [...] Physician EKG interpretation can be found in [facility] RADIOLOGY (Per Emergency Physician): Interpretation per the [...] numbness and pain Alternatives discussed: No treatment [place] protocol: Procedure explained and questions answered to [...] initial encounter DISPOSITION/PLAN dc PATIENT REFERRED TO: [facility] [place] [address] [place] [address] Dr Paul [place] [phone] DISCHARGE MEDICATIONS: Discharge Medication List as [...] Medicine Provider\ Bud Malik DO 12/06/24 0420 [facility] 12-01-2024 Telephone encounter Note Chart reviewed. Prescription [...] both myself and their primary care physician. [facility] 12-01-2024 Miscellaneous Notes Chart reviewed. Prescription sent. [...] primary care physician. documented in this encounter [facility] 10-30-2024 History of Presen t illness Narrative Images from the original note were not included. [facility] - [place] [address] [place] [phone] Dept: [phone] Dept Kamila Joseph 1955 [id number] 10/30/2024 Problem List: Neck pain Cervical myelopathy [...] 08/11/2024 Performed by Mason Haynes MD at [facility] COLONOSCOPY W/ BIOPSIES AND POLYPECTOMY N/A 08/11/2024 Performed by Mason Haynes MD at [facility] TONSILLECTOMY (HISTORICAL) WRIST SURGERY Social [...] is treated conservatively with medications, injections, exercise, laboratory animal care veterinarian, acupuncture, massage therapy, and physical therapy. We [...] CNP 10/30/2024 at 2:19 PM Dictated using onefinestay Version 2.4 Proof read however unrecognized voice recognition errors may have occurred documented in this encounter [facility] 10-30-2024 Instructions Deborah Valenzuela MA - 10/30/2024 1:00 PM EST Images from the original note were not included. We will notify you once we have approval from your insurance. You will then call central scheduling at [phone] to schedule. Please call our office at [phone] once MRI is scheduled to schedule a follow up visit with Dr. Mann for review. documented in this encounter [facility] 10-12-2024 Evaluation + Plan note Associated Problem(s): Chronic midline low back pain without sciatica Patient has had continued low back pain with midline tenderness. Has completed physical therapy without significant improvement. Will obtain imaging for further evaluation. [facility] 10-12-2024 Note Patient has had cont inued low back pain with midline tenderness. Has completed physical therapy without significant improvement. Will obtain imaging for further evaluation. [facility] 10-12-2024 Evaluation + Plan note Associated Problem(s): Urinary tract infection symptoms UA unremarkable. Recommend retrying the bladder retraining and using alarms to assist with bathroom breaks. If symptoms not improving would recommend following up with urology [facility] 10-12-2024 Miscellaneous Notes Associated Problem(s): Chronic midline [...] unremarkable for UTI. documented in this encounter [facility] 10-12-2024 Evaluation + Plan note Associated Problem(s): Major depressive disorder, single episode, unspecified Stable. Managed by psychiatry continue current medications [facility] 10-12-2024 Evaluation + Plan note Associated Problem(s): Essential hypertension Controlled. Blood pressure 137/83, continue metoprolol 25 mg daily and lisinopril 2.5 mg daily [facility] 10-12-2024 Evaluation + Plan note Associated Problem(s): Acute pain of right shoulder X-ray was negative. Has had gradual improvement. Continue home physical therapy exercises. [facility] 10-12-2024 Evaluation + Plan note Associated Problem(s): Mixed stress and urge urinary incontinence Poorly controlled. Recommend restarting bladder retraining, recommend using an alarm to assist with scheduled voiding. UA unremarkable for UTI. [facility] 10-12-2024 History of Presen t illness Narrative [...] 10/12/2024 5:54 PM documented in this encounter [facility] 09-14-2024 History of Presen t illness Narrative [...] Jie Miranda MD documented in this encounter [facility] 09-08-2024 Evaluation + Plan note Associated Problem(s): Mixed stress and urge urinary incontinence Poorly controlled. Recommend starting bladder retraining. Reviewed and provided written instruction. Follow up in about 4 weeks. Would not recommend avoiding urinary incontinence medications d/t risks associated with them. [facility] 09-08-2024 Miscellaneous Notes Associated Problem(s): Mixed stress [...] formal physical therapy documented in this encounter [facility] 09-08-2024 Miscellaneous Notes Associated Problem(s): Mixed stress [...] Level of Service documented in this encounter [facility] 09-08-2024 Evaluation + Plan note Associated Problem(s): Acute pain of right shoulder Obtain xray to r/o any fracture d/t fall. Suspect soft tissue injury and possible rotator cuff tear. Recommend rice x 1 week, then start stretches/exercises provided. If not improving in a couple weeks, would recommend formal physical therapy [facility] 09-08-2024 History of Presen t illness Narrative [...] weeks (around 09/29/2024). SUBJECTIVE/OBJECTIVE: [facility] - Kamila Jsoeph (: 1955) is a 69 y.o. female [...] 09/08/2024 11:35 AM documented in this encounter [facility] 09-08-2024 History of Presen t illness Narrative [...] 09/08/2024 11:35 AM documented in this encounter [facility] 09-08-2024 Note Addended by: ADRIANE ROGERS on: 09/16/2024 06:06 AM Modules accepted: Level of Service [facility] 09-07-2024 Telephone encounter Note Prescription Request: Last medication check: 07/08/24 Last physical exam: 12/30/23 Next scheduled appointment: 12/30/24 Last date of refill on this medication 03/09/24 90 and 1 refill [facility] 09-07-2024 Miscellaneous Notes Prescription Request: Last medication check: 07/08/24 Last physical exam: 12/30/23 Next scheduled appointment: 12/30/24 Last date of refill on this medication 03/09/24 90 and 1 refill documented in this encounter [facility] 09-03-2024 Telephone encounter Note Reviewed chart. Refill appropriate. RX sent. [facility] 09-03-2024 Miscellaneous Notes Reviewed chart. Refill appropriate. RX sent. Prescription Request: Last medication check: 07/08/24 Last physical exam: 12/30/23 Next scheduled appointment: 12/30/24 Last date of refill on this medication 02/10/24 documented in this encounter [facility] 09-03-2024 Telephone encounter Note Prescription Request: Last medication check: 07/08/24 Last physical exam: 12/30/23 Next scheduled appointment: 12/30/24 Last date of refill on this medication 02/10/24 [facility] 08-24-2024 Telephone encounter Note Images from the [...] a single cassette. Disclaimer Department of Surgery [facility] 08-24-2024 Miscellaneous Notes Images from the original [...] Department of Surgery documented in this encounter [facility] 08-11-2024 Miscellaneous Notes Granddaughter assisted patient with getting dressed. Patient ambulatory to/from with assist. Assisted into wheelchair and out to car with family and volunteer. Patient tolerating PO fluids and crackers. Discharge instructions reviewed with patient and granddaughter. Both verbalize understanding. Received patient from OR to PACU with URINALYSIS TECHNICIAN. Patient sedated on room air. No respiratory distress noted. Monitor on, safety maintained. Rn and granddaughter bedside. [facility] Name: Kamila Joseph Procedure Date: 08/11/2024 [...] immediate complications. Procedure Code(s): --- Professional --- 50833, Colonoscopy, flexible; with removal of tumor(s), polyp(s), or other lesion(s) by snare technique 46517, 59, Colonoscopy, flexible; with biopsy, single or multiple --- Technical --- 57116, Colonoscopy, flexible; with removal of tumor(s), polyp(s), or other lesion(s) by snare technique 72772, 59, Colonoscopy, flexible; with biopsy, single or multiple Diagnosis Code(s): --- Professional --- Z12.11, Encounter for screening for malignant neoplasm of colon --- Technical --- Z12.11, Encounter for screening for malignant neoplasm of colon CPT copyright 2021 [employer]. All rights reserved. The codes documented in this report are preliminary and upon coder operator review may be revised to meet current compliance requirements. Attending Participation: I personally performed the entire procedure. Mason Haynes MD 08/11/2024 9:36:53 AM Number of Addenda: 0 Note Initiated On: 08/11/2024 7:34 AM documented in this encounter [facility] 08-11-2024 Note Formatting of this n ote might be different from the original. Granddaughter assisted patient with getting dressed. Patient ambulatory to/from BR with assist. Assisted into wheelchair and out to car with family and volunteer. [facility] 08-11-2024 Note Formatting of this n ote might be different from the original. Granddaughter assisted patient with getting dressed. Patient ambulatory to/from BR with assist. Assisted into wheelchair and out to car with family and volunteer. T [facility] 08-11-2024 Note Formatting of this n ote might be different from the original. Patient tolerating PO fluids and crackers. Discharge instructions reviewed with patient and granddaughter. Both verbalize understanding. T [facility] 08-11-2024 Note Formatting of this n ote might be different from the original. Patient tolerating PO fluids and crackers. Discharge instructions reviewed with patient and granddaughter. Both verbalize understanding. T [facility] 08-11-2024 Note Formatting of this n ote might be different from the original. Received patient from OR to PACU with URINALYSIS TECHNICIAN. Patient sedated on room air. No respiratory distress noted. Monitor on, safety maintained. Rn and granddaughter bedside. [facility] 08-11-2024 Note Formatting of this n ote might be different from the original. Received patient from OR to PACU with URINALYSIS TECHNICIAN. Patient sedated on room air. No respiratory distress noted. Monitor on, safety maintained. Rn and granddaughter bedside. T [facility] 08-11-2024 History and physical note Images from [...] 08/11/2024 Performed by Mason Haynes MD at [facility] TONSILLECTOMY (HISTORICAL) WRIST SURGERY PFMHx: [...] understanding and willingness to proceed with plan. [facility] Phone: 08-11-2024 History and physical note Images [...] 08/11/2024 Performed by Mason Haynes MD at [facility] TONSILLECTOMY (HISTORICAL) WRIST SURGERY PFMHx: [...] proceed with plan. documented in this encounter [facility] 08-11-2024 Note Formatting of this n ote might be different from the original. [facility] Patient Name: Kamila Joseph Procedure Date: 08/11/2024 7:34 AM Gender: Female Date of : 1955 Age: 69 Admit Type: Outpatient Note Status: Finalized Endoscopist: Mason Hanyes MD, Procedure: Colonoscopy Indications: Screening for colorectal [...] immediate complications. Procedure Code(s): --- Professional --- 07677, Colonoscopy, flexible; with removal of tumor(s), polyp(s), or other lesion(s) by snare technique 95151, 59, Colonoscopy, flexible; with biopsy, single or multiple --- Technical --- 87716, Colonoscopy, flexible; with removal of tumor(s), polyp(s), or other lesion(s) by snare technique 11312, 59, Colonoscopy, flexible; with biopsy, single or multiple Diagnosis Code(s): --- Professional --- Z12.11, Encounter for screening for malignant neoplasm of colon --- Technical --- Z12.11, Encounter for screening for malignant neoplasm of colon CPT copyright 2021 [employer]. All rights reserved. The codes documented in this report are preliminary and upon coder operator review may be revised to meet current compliance requirements. Attending Participation: I personally performed the entire procedure. Mason Haynes MD 08/11/2024 9:36:53 AM Number of Addenda: 0 Note Initiated On: 08/11/2024 7:34 AM [facility] 08-11-2024 Note Formatting of this n ote might be different from the original. [facility] Patient Name: Kamila Joseph Procedure Date: 08/11/2024 [...] immediate complications. Procedure Code(s): --- Professional --- 79873, Colonoscopy, flexible; with removal of tumor(s), polyp(s), or other lesion(s) by snare technique 95715, 59, Colonoscopy, flexible; with biopsy, single or multiple --- Technical --- 10940, Colonoscopy, flexible; with removal of tumor(s), polyp(s), or other lesion(s) by snare technique 96836, 59, Colonoscopy, flexible; with biopsy, single or multiple Diagnosis Code(s): --- Professional --- Z12.11, Encounter for screening for malignant neoplasm of colon --- Technical --- Z12.11, Encounter for screening for malignant neoplasm of colon CPT copyright 2021 [employer]. All rights reserved. The codes documented in this report are preliminary and upon coder operator review may be revised to meet current compliance requirements. Attending Participation: I personally performed the entire procedure. Mason Haynes MD 08/11/2024 9:36:53 AM Number of Addenda: 0 Note Initiated On: 08/11/2024 7:34 AM [facility] 07-28-2024 Telephone encounter Note Our office spoke with the patient's [facility] The patient is scheduled with Dr. Haynes on 08/11/2024 with arrival time of 8:00 at [facility]. Verified that the patient has the prep information and all questions were answered. [facility] 07-28-2024 Miscellaneous Notes Our office spoke with the patient's daughter to remind Kamila of her colonoscopy appointment . The patient is scheduled with Dr. Haynes on 08/11/2024 with arrival time of 8:00 at [facility]. Verified that the patient has the prep information and all questions were answered. documented in this encounter [facility] 07-14-2024 Telephone encounter Note Screening Questionnaire Do [...] when was your last colonoscopy? no T [facility] 07-14-2024 Miscellaneous Notes Screening Questionnaire Do you [...] last colonoscopy? no documented in this encounter [facility] 07-08-2024 Evaluation + Plan note Associated Problem(s): Skin lesion Patient has had several lesions of concern, we will have her see dermatology for full skin examination. [facility] 07-08-2024 Evaluation + Plan note Associated Problem(s): Anxiety Follow-up with psychiatry as directed continue clonazepam 0.25 mg twice daily if needed and BuSpar 15 mg twice daily [facility] 07-08-2024 Miscellaneous Notes Associated Problem(s): Skin lesion [...] back pain muscular documented in this encounter [facility] 07-08-2024 Evaluation + Plan note Associated Problem(s): Recurrent major depressive disorder, in full remission (HCC) Follow-up with psychiatry as directed [facility] 07-08-2024 Evaluation + Plan note Associated Problem(s): Essential hypertension Controlled. Blood pressure 132/76, continue metoprolol 25 mg daily and lisinopril 2.5 mg daily [facility] 07-08-2024 Evaluation + Plan note Associated Problem(s): Hyperlipidemia LDL goal <100 Continue simvastatin 40 mg daily [facility] 07-08-2024 Evaluation + Plan note Associated Problem(s): Urinary tract infection symptoms Trace leuks only. Will send for urine culture. Most likely left sided low back pain muscular [facility] 07-08-2024 History of Presen t illness Narrative [...] dermatology for full skin examination. Orders: - [facility] Dermatology 3. Colon cancer screening - [facility] General Surgery - Terry Bui MD 4. [...] with primary care provider as scheduled. SUBJECTIVE/OBJECTIVE: [facility] - Kamila Joseph (: 1955) is a [...] TD-symptoms resolved with medication. ENT- [facility] in [place] for cerumen prob. TERESA-wears CPAP at bedtime [...] DAY 03/05/24 Yes Shyla Bustillo APRN - POWER AND RECOVERY SHIFT ENGINEER FLUoxetine (PROzac) 40 MG capsule Take 40 [...] 07/08/2024 5:24 PM documented in this encounter [facility] 07-08-2024 Instructions SOO Grant CNP - 07/08/2024 11:20 AM EDT Please call Central Scheduling at [phone] to schedule your outpatient test (dexa scan) Please call to schedule your Mammogram at [phone] documented in this encounter [facility] 07-06-2024 Telephone encounter Note Prescription Request: Last medication check: 06/27/23 Last physical exam: 12/30/23 Next scheduled appointment: 07/08/24 Last date of refill on this medication 12/30/23 [facility] 07-06-2024 Miscellaneous Notes Prescription Request: Last medication check: 06/27/23 Last physical exam: 12/30/23 Next scheduled appointment: 07/08/24 Last date of refill on this medication 12/30/23 documented in this encounter [facility] 07-02-2024 History of Presen t illness Narrative [...] Jie Miranda MD documented in this encounter [facility] 04-02-2024 History of Presen t illness Narrative [facility] Primary Care Physician: [...] is seen in the [facility] of [facility] for complaint of tardive dyskinesia. She [...] to call the Department of Neurology at [phone] for any further concerns. Sincerely, SOO Handley CNP The above diagnosis and management plan were discussed at length with the patient and patient's daughter who voiced understanding and agreed. Electronically signed by: SOO Handley CNP 04/02/2024 1:49 PM documented in this encounter [facility] 03-23-2024 Evaluation + Plan note Associated Problem(s): Urinary tract infection symptoms UA trace leuks only. Will send for culture. Increase fluids. No CVA tenderness. Patient advised that she should not take medication that is not prescribed for her. Further plan of care pending culture results. [facility] 03-23-2024 Miscellaneous Notes Associated Problem(s): Urinary tract infection symptoms UA trace leuks only. Will send for culture. Increase fluids. No CVA tenderness. Patient advised that she should not take medication that is not prescribed for her. Further plan of care pending culture results. documented in this encounter [facility] 03-23-2024 History of Presen t illness Narrative [...] 03/23/2024 4:36 PM documented in this encounter [facility] 03-23-2024 Instructions SOO Grant CNP - 03/23/2024 2:00 PM EDT Will wait for urine culture to come back. Continue to drink lots of water to help flush urinary tract. documented in this encounter [facility] 03-23-2024 Telephone encounter Note S: Patient called [...] wants to be seen Protocols used: Flank [id number]-BM [facility] 03-23-2024 Miscellaneous Notes S: Patient called the [...] wants to be seen Protocols used: Flank [id number] documented in this encounter [facility] 02-10-2024 Evaluation + Plan note Associated Problem(s): TERESA on CPAP Patient wearing CPAP nightly. Reports good sleep and feels well rested during the daytime. [facility] 02-10-2024 Miscellaneous Notes Associated Problem(s): TERESA on CPAP Patient wearing CPAP nightly. Reports good sleep and feels well rested during the daytime. documented in this encounter [facility] 02-10-2024 Telephone encounter Note Reviewed chart. Refill appropriate. RX sent. [facility] 02-10-2024 Miscellaneous Notes Reviewed chart. Refill appropriate. RX sent. Prescription Request: Last medication check: 08/19/23 Last physical exam: 12/30/23 Next scheduled appointment: here today seeing Lata Last date of refill on this medication: 08/12/23 documented in this encounter [facility] 02-10-2024 History of Presen t illness Narrative [...] date of refill on this medication: 08/12/23 [facility] 12-30-2023 Evaluation + Plan note Associated Problem(s): Anxiety Continue clonazepam 0.25 mg twice daily if needed, BuSpar 15 mg twice daily. Follow-up with psychiatry as directed. Psychiatry will be managing psychiatric medications from now on. [facility] 12-30-2023 Miscellaneous Notes Associated Problem(s): Anxiety Continue [...] follow-up with neurology documented in this encounter [facility] 12-30-2023 Evaluation + Plan note Associated Problem(s): Recurrent major depressive disorder, in full remission (HCC) Stable continue venlafaxine 300 mg daily. Follow-up with psychiatry for further management. Psychiatrist will now be managing psychiatric medications including anxiety medications [facility] 12-30-2023 Evaluation + Plan note Associated Problem(s): Hyperlipidemia LDL goal <100 Recheck lipid panel today, continue simvastatin 40 mg nightly nightly [facility] 12-30-2023 Evaluation + Plan note Associated Problem(s): Essential hypertension Controlled blood pressure 119/76. Continue metoprolol 25 mg daily and lisinopril 2.5 mg daily [facility] 12-30-2023 Evaluation + Plan note Associated Problem(s): TERESA on CPAP Patient has gotten a new CPAP but needs to start wearing it. Recommend doing so immediately as this will help improve sleep and reduce risks associated with untreated Teresa [facility] 12-30-2023 Evaluation + Plan note Associated Problem(s): Weight loss Weight is now stable 154 pounds. [facility] 12-30-2023 Evaluation + Plan note Associated Problem(s): Tardive dyskinesia Much improvement. Continue follow-up with neurology [facility] 12-30-2023 History of Presen t illness Narrative Patient was verified by name and . Images from the original note were not included. [facility] [address] [address] Dept: [phone] Dept Chief Complaint: Kamila Joseph is an [...] will be taking over her psychiatric medications OUZINKIE-hearing aids sees ENT in March- January - [...] to make appointment with his / her editorial specialist Safety: Safety Do you have a [...] questions 9-10?: 1 documented in this encounter [facility] 12-30-2023 Instructions SOO Grant CNP - 12/30/2023 [...] Recommendations: A preventive eye exam by an editorial specialist is recommended every 1-2 years to screen for glaucoma, cataracts, macular degeneration, and other eye disorders. A preventive dental visit is recommended every 6 months. Try to get at least 150 minutes of exercise per week or 10,000 steps per day on a pedometer. You need 1200-1500mg of calcium and 2570-6883 international units of vitamin D per day. [...] or a motorcycle documented in this encounter [facility] 12-09-2023 Telephone encounter Note Rx sent. Follow up as scheduled. [facility] 12-09-2023 Miscellaneous Notes Rx sent. Follow up as scheduled. Prescription Request: Last medication check: 11/14/23 Last physical exam: 10/29/22 Next scheduled appointment: 12/30/23 Last date of refill on this medication 11/14/23 documented in this encounter [facility] 12-09-2023 Telephone encounter Note Prescription Request: Last medication check: 11/14/23 Last physical exam: 10/29/22 Next scheduled appointment: 12/30/23 Last date of refill on this medication 11/14/23 [facility] 12-06-2023 History of Presen t illness Narrative [...] JIE MIRANDA MD documented in this encounter [facility] 11-14-2023 Evaluation + Plan note Associated Problem(s): Recurrent major depressive disorder, in full remission (HCC) Stable. Continue venlafaxine 300 mg daily [facility] 11-14-2023 Miscellaneous Notes Associated Problem(s): Recurrent major depressive disorder, in full remission (HCC) Stable. Continue venlafaxine 300 mg daily Associated Problem(s): Anxiety Improving, continue clonazepam 0.25 mg twice daily if needed, increase BuSpar to 15 mg twice daily and follow-up in about 1 month documented in this encounter [facility] 11-14-2023 Evaluation + Plan note Associated Problem(s): Anxiety Improving, continue clonazepam 0.25 mg twice daily if needed, increase BuSpar to 15 mg twice daily and follow-up in about 1 month [facility] 11-14-2023 History of Presen t illness Narrative [...] 11/14/2023 6:05 PM documented in this encounter [facility] 10-16-2023 Evaluation + Plan note Associated Problem(s): Essential hypertension Controlled. Blood pressure 118/72. Continue metoprolol 25 mg daily and lisinopril 2.5 mg daily [facility] 10-16-2023 Miscellaneous Notes Associated Problem(s): Essential hypertension [...] month for anxiety documented in this encounter [facility] 10-16-2023 Evaluation + Plan note Associated Problem(s): Recurrent major depressive disorder, in full remission (HCC) Stable. Continue venlafaxine 300 mg daily [facility] 10-16-2023 Evaluation + Plan note Associated Problem(s): Anxiety Anxiety poorly controlled. Continue clonazepam 0.25 mg twice daily, increase BuSpar 10 mg twice daily. Follow-up in 1 month for anxiety [facility] 10-16-2023 History of Presen t illness Narrative [...] 10/16/2023 5:01 PM documented in this encounter [facility] 10-10-2023 Evaluation + Plan note Associated Problem(s): [...] signs of infection and call or return. [facility] 10-10-2023 Miscellaneous Notes Associated Problem(s): Neoplasm of [...] call or return. documented in this encounter [facility] 10-10-2023 History of Presen t illness Narrative [...] symptoms worsen or fail to improve. SUBJECTIVE/OBJECTIVE: [facility] -Kamila comes in today for a shave [...] 10/10/2023 3:53 PM documented in this encounter [facility] 09-18-2023 Evaluation + Plan note Associated Problem(s): Skin lesion Likely benign. We will have her schedule for skin lesion removal [facility] 09-18-2023 Miscellaneous Notes Associated Problem(s): Skin lesion [...] neurology as directed documented in this encounter [facility] 09-18-2023 Evaluation + Plan note Associated Problem(s): Anxiety Anxiety is still poorly controlled. Continue Klonopin 0.5 mg half a tablet twice daily, we will add buspirone 5 mg twice daily and follow-up in 1 month [facility] 09-18-2023 Evaluation + Plan note Associated Problem(s): Essential hypertension Controlled. Blood pressure 120/82. Continue metoprolol 25 mg daily and lisinopril 2.5 mg daily [facility] 09-18-2023 Evaluation + Plan note Associated Problem(s): Tardive dyskinesia Improving. Follow-up with neurology as directed [facility] 09-17-2023 History of Presen t illness Narrative [...] scheduled establish with psychiatry in November in [place]. is doing ok, after neck surgery, he [...] 09/18/2023 6:30 AM documented in this encounter [facility] 09-05-2023 History of Presen t illness Narrative [...] JIE MIRANDA MD documented in this encounter [facility] 08-28-2023 Telephone encounter Note Prescription Request: Last medication check: 08/19/23 Last physical exam: 10/29/22 Next scheduled appointment: 09/17/23 Last date of refill on this medication 05/27/23 90 day 1 refill [facility] 08-28-2023 Miscellaneous Notes Prescription Request: Last medication check: 08/19/23 Last physical exam: 10/29/22 Next scheduled appointment: 09/17/23 Last date of refill on this medication 05/27/23 90 day 1 refill documented in this encounter [facility] 08-19-2023 Evaluation + Plan note Associated Problem(s): Weight loss Unsure etiology. Will check TSH. [facility] 08-19-2023 Miscellaneous Notes Associated Problem(s): Weight loss Unsure etiology. Will check TSH. Associated Problem(s): Essential hypertension Controlled. Continue metoprolol 25 mg daily and lisinopril 2.5 mg daily Associated Problem(s): Tardive dyskinesia Improving. Continue follow up with neurology. documented in this encounter [facility] 08-19-2023 Miscellaneous Notes Associated Problem(s): Weight loss Unsure etiology. Will check TSH. Associated Problem(s): Essential hypertension Controlled. Continue metoprolol 25 mg daily and lisinopril 2.5 mg daily Associated Problem(s): Tardive dyskinesia Improving. Continue follow up with neurology. Addended by: MERLYN ALBERTO on: 08/23/2023 07:36 AM Modules accepted: Orders documented in this encounter [facility] 08-19-2023 Evaluation + Plan note Associated Problem(s): Essential hypertension Controlled. Continue metoprolol 25 mg daily and lisinopril 2.5 mg daily [facility] 08-19-2023 Evaluation + Plan note Associated Problem(s): Tardive dyskinesia Improving. Continue follow up with neurology. [facility] 08-19-2023 History of Presen t illness Narrative [...] 08/19/2023 3:34 PM documented in this encounter [facility] 08-19-2023 History of Presen t illness Narrative [...] was used to authenticate this note. SOO rGant CNP 08/19/2023 3:34 PM documented in this encounter [facility] 08-19-2023 Note Addended by: MERLYN ALBERTO on: 08/23/2023 07:36 AM Modules accepted: Orders [facility] 08-12-2023 Telephone encounter Note Prescription Request: Last medication check: 04/24/23 Last physical exam: 10/29/22 Next scheduled appointment: 08/15/23 Last date of refill on this medication 02/12/23 90 tablets 1 refill [facility] 08-12-2023 Miscellaneous Notes Prescription Request: Last medication check: 04/24/23 Last physical exam: 10/29/22 Next scheduled appointment: 08/15/23 Last date of refill on this medication 02/12/23 90 tablets 1 refill documented in this encounter [facility] 08-05-2023 Telephone encounter Note Requested Prescriptions Signed Prescriptions Disp Refills Valbenazine Tosylate (Ingrezza) 60 MG capsule 30 capsule 11 Sig: Take 1 capsule by mouth daily. Authorizing Provider: VIOLET CASTELLANOS [facility] 08-05-2023 Miscellaneous Notes Requested Prescriptions Signed Prescriptions Disp Refills Valbenazine Tosylate (Ingrezza) 60 MG capsule 30 capsule 11 Sig: Take 1 capsule by mouth daily. Authorizing Provider: VIOLET CASTELLANOS Patient is locked in to [facility] specialty for her Ingrezza therapy. I have pended the RX below for approval to send to the [facility] specialty in [facility]. Patient states she is down to 5 capsules remaining, so I will follow up with [facility] to ensure this is received within the correct time frame. Thanks! documented in this encounter [facility] 08-05-2023 Telephone encounter Note Patient is locked in to [facility] specialty for her Ingrezza therapy. I have pended the RX below for approval to send to the [facility] specialty in [facility]. Patient states she is down to 5 capsules remaining, so I will follow up with [facility] to ensure this is received within the correct time frame. Thanks! [facility] 08-01-2023 History of Presen t illness Narrative [...] was 50 minutes documented in this encounter [facility] 08-01-2023 Miscellaneous Notes Addended by: MERLYN ALBERTO on: 08/23/2023 07:29 AM Modules accepted: Orders documented in this encounter [facility] 08-01-2023 Note Addended by: MERLYN ALBERTO on: 08/23/2023 07:29 AM Modules accepted: Orders [facility] 08-01-2023 Note Addended by: MERLYN ALBERTO on: 08/23/2023 07:29 AM Modules accepted: Orders [facility] 07-24-2023 Evaluation + Plan note Associated Problem(s): Anxiety Anxiety is not as bad now that the movement disorder is improving. Due to high risk for falls, recommend decreasing dose of Klonopin to half a tablet twice daily and follow-up with neurology next week. [facility] 07-24-2023 Miscellaneous Notes Associated Problem(s): Anxiety Anxiety is not as bad now that the movement disorder is improving. Due to high risk for falls, recommend decreasing dose of Klonopin to half a tablet twice daily and follow-up with neurology next week. Associated Problem(s): Tardive dyskinesia Improving. Follow-up with neurology as directed documented in this encounter [facility] 07-24-2023 Evaluation + Plan note Associated Problem(s): Tardive dyskinesia Improving. Follow-up with neurology as directed [facility] 07-24-2023 History of Presen t illness Narrative [...] 07/24/2023 5:41 PM documented in this encounter [facility] 07-24-2023 Instructions SOO Grant CNP - 07/24/2023 1:00 PM EDT Need to be stabilized with mood/anxiety and have movement disorder better before returning to work. Decrease dose of klonopin to 1/2 tablet twice daily to see if helps with steadiness. documented in this encounter [facility] 07-03-2023 Telephone encounter Note Done, printed, Crystal will hot die picker today. [facility] 07-03-2023 Miscellaneous Notes Done, printed, Crystal will hot die picker today. Okay to extend her off [...] care advice. Please contact gabriela Ram at [phone] as to how to obtain work letter. Reason for Disposition Caller has NON-URGENT medicine question about med that PCP or specialist prescribed and triager unable to answer question Protocols used: Medication Question [id number] documented in this encounter [facility] 07-03-2023 Telephone encounter Note Okay to extend her off work note through this weekend [facility] 07-03-2023 Telephone encounter Note S Patient daughter [...] care advice. Please contact gabriela Leanna at [phone] as to how to obtain work letter. Reason for Disposition Caller has NON-URGENT medicine question about med that PCP or specialist prescribed and triager unable to answer question Protocols used: Medication Question [id number] [facility] 07-01-2023 Telephone encounter Note Requested Prescriptions Signed Prescriptions Disp Refills valbenazine tosylate (Ingrezza) 40 MG capsule 30 capsule 11 Sig: Take 1 capsule (40 mg) by mouth daily. Authorizing Provider: VIOLET CASTELLANOS [facility] 07-01-2023 Miscellaneous Notes Requested Prescriptions Signed Prescriptions [...] specialty below. Thanks! documented in this encounter [facility] 07-01-2023 Telephone encounter Note I spoke with [...] is pended for [facility] below. Thanks! [facility] 06-27-2023 Evaluation + Plan note Associated Problem(s): Anxiety Klonopin 0.5 mg 3 times daily as needed OARRS report done, no inconsistencies, CS agreement signed today [facility] 06-27-2023 Miscellaneous Notes Associated Problem(s): Anxiety Klonopin 0.5 mg 3 times daily as needed OARRS report done, no inconsistencies, CS agreement signed today Associated Problem(s): Tardive dyskinesia Continue Cogentin at current dose, get prescription that neurology has sent in and follow-up with neurology as needed. Kenalog in [place] to be applied every 2 hours to the affected areas. documented in this encounter [facility] 06-27-2023 Evaluation + Plan note Associated Problem(s): Tardive dyskinesia Continue Cogentin at current dose, get prescription that neurology has sent in and follow-up with neurology as needed. Kenalog in [place] to be applied every 2 hours to the affected areas. [facility] 06-27-2023 History of Presen t illness Narrative [...] 06/27/2023 3:53 PM documented in this encounter [facility] 06-27-2023 History of Presen t illness Narrative [...] normal. Impression: Diagnosis Plan 1. Tardive dyskinesia [facility] Neurology Plan: 1. Since patient already have [...] JIE MIRANDA MD documented in this encounter [facility] 06-27-2023 Telephone encounter Note Prescription Request: Last medication check: 04/24/23 Last physical exam: 10/29/22 Next scheduled appointment: 06/27/23 Last date of refill on this medication 12/28/22 90 day 1 refill [facility] 06-27-2023 Miscellaneous Notes Prescription Request: Last medication check: 04/24/23 Last physical exam: 10/29/22 Next scheduled appointment: 06/27/23 Last date of refill on this medication 12/28/22 90 day 1 refill documented in this encounter [facility] 06-26-2023 Telephone encounter Note Name of caller: Crystal Relation to patient: family member patient and daughter Contact phone number: [phone] Appointment scheduled with: Dr. Miranda Appointment date & time: 06/27/23, 10:00a Reason for visit (are you having any symptoms) : Tardive Dyskinesia Transportation issues/ concerns: N/A Special accommodations? ( wheel chair, etc) : N/A Current medications: N/A Any refills need: N/A Any chronic conditions the provider should be aware of: N/A [facility] 06-26-2023 Miscellaneous Notes Name of caller: Leanna Relation to patient: family member patient and daughter Contact phone number: [phone] Appointment scheduled with: Dr. Miranda Appointment date & time: 06/27/23, 10:00a Reason for visit (are you having any symptoms) : Tardive Dyskinesia Transportation issues/ concerns: N/A Special accommodations? ( wheel chair, etc) : N/A Current medications: N/A Any refills need: N/A Any chronic conditions the provider should be aware of: N/A documented in this encounter [facility] 06-19-2023 Evaluation + Plan note Associated Problem(s): [...] Will rx for lidocaine viscous for pain. [facility] 06-19-2023 Miscellaneous Notes Associated Problem(s): Tardive dyskinesia [...] movement disorder is worse. Was referred to [facility] and is scheduled with them in [...] (2/10) and ongoing problem Protocols used: Tongue [id number] documented in this encounter [facility] 06-19-2023 Telephone encounter Note Discussed with Dr. [...] movement disorder is worse. Was referred to [facility] and is scheduled with them in [...] for lidocaine viscous for pain. Denies si/hi. [facility] 06-19-2023 Telephone encounter Note S: Patient spoke [...] (2/10) and ongoing problem Protocols used: Tongue [id number] T [facility] 06-13-2023 Telephone encounter Note Have not yet received sleep study report. Faxed order to [facility] without it, will send sleep study to them once we receive it. [facility] order scanned in. T [facility] 06-13-2023 Miscellaneous Notes Have not yet received sleep study report. Faxed order to [facility] without it, will send sleep study to them once we receive it. [facility] order scanned in. GUILLE sent for sleep study to [facility]. Will send with order form. Thank you, [...] study was done 10 years ago at [facility], I am not able to access her old chart right now for some reason, are you able to see if we have the previous report? If not I will send a request for it. Thank you! Name of caller: Luisito Contact phone number: [phone] Relationship to Patient: [facility] sleep studies Provider: Juvencio Davila Practice: [facility] [...] of caller: Kamila Joseph Contact phone number: [phone] Relationship to Patient: patient Provider: Dr. Davila Practice: [facility] Chief Complaint/Reason for Call: Pt asking for an order for c-pap to be sent to [facility] at [phone]. Please advise. Thank you. Best time of day caller can be reached: ANY Patient advised that office/PCP has 24-48 business hours to return their call: Yes documented in this encounter [facility] 06-13-2023 Telephone encounter Note GUILLE sent for sleep study to [facility]. Will send with order form. [facility] 06-13-2023 Telephone encounter Note Thank you, that is the preprinted form that I was looking for, we already got her setting at 9 cm of H2O, paperwork filled out [facility] 06-13-2023 Telephone encounter Note They can't do [...] settings unless you have that info. Thanks! [facility] 06-12-2023 Telephone encounter Note Right now this patient is not able to do a sleep study due to her facial movements from her medication, we are trying to get this problem resolved. Can we contact [facility] and have them send us a preprinted order so we can order a new CPAP machine for her at her previous setting. [facility] 06-12-2023 Telephone encounter Note Spoke to patient last sleep study was done 10 years ago at [facility], I am not able to access her old chart right now for some reason, are you able to see if we have the previous report? If not I will send a request for it. Thank you! [facility] 06-12-2023 Telephone encounter Note Name of caller: Luisito Contact phone number: [phone] Relationship to Patient: [facility] sleep studies Provider: Juvencio Davila Practice: [facility] Chief Complaint/Reason for Call: Good morning, we received a titration sleep study order for patient, however, we need patient's previous results. If previous results cannot be obtained, a split study can be ordered instead. Thank you. [facility] 06-10-2023 Evaluation + Plan note Associated Problem(s): TERESA on CPAP We will contact [facility] to get a preprinted order to order a new CPAP. [facility] 06-10-2023 Miscellaneous Notes Associated Problem(s): TERESA on [...] in 1 week. documented in this encounter [facility] 06-10-2023 Evaluation + Plan note Associated Problem(s): Drug-induced movement disorder We will restart her Risperdal, she has some at home and stop the Cogentin, this is per the patient's family's request since she did better when she was on the Risperdal after switching back from the Vraylar follow-up in 1 week. [facility] 06-10-2023 History of Presen t illness Narrative [...] 06/10/2023 3:52 PM documented in this encounter [facility] 06-03-2023 Telephone encounter Note Order for sleep study with PAP titration entered, please schedule at patient's preferred location [facility] 05-31-2023 Telephone encounter Note Spoke with patient she is agreeable to doing a titration test. [facility] 05-31-2023 Telephone encounter Note If her last sleep study was 10 years ago then we probably need to set her up for a new titration to make sure that that level is still okay. [facility] 05-31-2023 Telephone encounter Note I called carla the settings they have on file is 9 CM. He said he is not sure if she still needs that or needs to be retested. [facility] 05-31-2023 Telephone encounter Note Patient says her machine wont even power on so she cant check to find out what her settings are and that her last sleep study was 10 years or more ago and I do not see it in her chart. She uses [facility] so I am going to call them and see if I can get the information [facility] 05-31-2023 Telephone encounter Note To send an order for a CPAP we need to know what her settings are [facility] 05-31-2023 Telephone encounter Note Name of caller: Kamila Joseph Contact phone number: [phone] Relationship to Patient: patient Provider: Dr. Davila Practice: [facility] Chief Complaint/Reason for Call: Pt asking for an order for c-pap to be sent to [facility] at [phone]. Please advise. Thank you. Best time of day caller can be reached: ANY Patient advised that office/PCP has 24-48 business hours to return their call: Yes [facility] 05-27-2023 Evaluation + Plan note Associated Problem(s): Recurrent major depressive disorder, in full remission (HCC) Partial remission, will increase her Wellbutrin to 300 mg daily [facility] 05-27-2023 Evaluation + Plan note Associated Problem(s): Anxiety Partial remission, will increase her Wellbutrin to 300 mg daily T [facility] 05-27-2023 Miscellaneous Notes Associated Problem(s): Recurrent major [...] the Risperdal also. documented in this encounter [facility] 05-27-2023 Evaluation + Plan note Associated Problem(s): Class 1 obesity due to excess calories without serious comorbidity with body mass index (BMI) of 30.0 to 30.9 in adult Continued weight loss, refill Adipex 37.5, Rx sent, OARRS report done, no inconsistencies. [facility] 05-27-2023 Evaluation + Plan note Associated Problem(s): Tardive dyskinesia Resolving off of Vraylar, will stop the Risperdal also. [facility] 05-27-2023 History of Presen t illness Narrative [...] 05/27/2023 3:43 PM documented in this encounter [facility] 05-08-2023 Evaluation + Plan note Associated Problem(s): Essential hypertension Controlled, continue metoprolol 25 mg daily, lisinopril 2.5 mg daily [facility] 05-08-2023 Miscellaneous Notes Associated Problem(s): Essential hypertension [...] with psychiatry. Will refer to psychiatry in [place] per family request Associated Problem(s): Tardive dyskinesia Msk-eylwcn-lkgdard dyskinesias. VS stable. Possibly from Vraylar or withdrawal from risperidone. Consulted with psychiatry (Dr. Shin) and will stop Vraylar, restart risperidone at decreased dose of 4 mg daily. Continue venlafaxine. Refer to psychiatry. Close follow up documented in this encounter [facility] 05-08-2023 Miscellaneous Notes Associated Problem(s): Essential hypertension [...] with psychiatry. Will refer to psychiatry in [place] per family request Associated Problem(s): Tardive dyskinesia Ysc-hnnpmu-yiuiyox dyskinesias. VS stable. Possibly from Vraylar or withdrawal from risperidone. Consulted with psychiatry (Dr. Shin) and will stop Vraylar, restart risperidone at decreased dose of 4 mg daily. Continue venlafaxine. Refer to psychiatry. Close follow up Addended by: ADRIANE HUBBARD on: 05/09/2023 12:43 PM Modules accepted: Level of Service documented in this encounter [facility] 05-08-2023 Evaluation + Plan note Associated Problem(s): Recurrent major depressive disorder, in full remission (HCC) Uncontrolled, denies any suicidal or homicidal ideation. Will have her continue her venlafaxine, due to recent onset of movement disorder possibly secondary to Vraylar or withdrawal from risperidone, we will stop Vraylar and restart risperidone at 4 mg daily. Consulted with psychiatry. Will refer to psychiatry in [place] per family request [facility] 05-08-2023 Evaluation + Plan note Associated Problem(s): Tardive dyskinesia Ijp-bcpzfd-eddwawf dyskinesias. VS stable. Possibly from Vraylar or withdrawal from risperidone. Consulted with psychiatry (Dr. Shin) and will stop Vraylar, restart risperidone at decreased dose of 4 mg daily. Continue venlafaxine. Refer to psychiatry. Close follow up [facility] 05-08-2023 History of Presen t illness Narrative [...] ASSESSMENT/PLAN: 1. Tardive dyskinesia Assessment & Plan: Kop-lpddnm-uipnfot dyskinesias. VS stable. Possibly from Vraylar or [...] with psychiatry. Will refer to psychiatry in [place] per family request Follow up in about [...] Coordination: Coordination normal. Comments: Intermittent teeth grinding, eku-oiwew-nouaotx dyskinesia noted. Not tardive upper extremity movements noted. Psychiatric: Attention and Perception: Attention normal. Mood and Affect: Mood normal. Affect is flat. Speech: Speech is slurred. Behavior: Behavior is cooperative. Thought Content: Thought content normal. Cognition and Memory: Memory is impaired. An electronic signature was used to authenticate this note. SOO Grant CNP 05/08/2023 7:22 AM Doctor'S Assistant for Intimate and Non Intimate Exam Doctor'S Assistant was declined Doctor'S Assistant: na documented in this encounter [facility] 05-08-2023 History of Presen t illness Narrative [...] ASSESSMENT/PLAN: 1. Tardive dyskinesia Assessment & Plan: Cdf-mjbkgk-sonfqep dyskinesias. VS stable. Possibly from Vraylar or [...] with psychiatry. Will refer to psychiatry in [place] per family request Follow up in about [...] mouth every morning (before breakfast). 04/24/23 05/24/23 uJvencio Davila MD simvastatin (Zocor) 40 MG tablet [...] Coordination: Coordination normal. Comments: Intermittent teeth grinding, dnm-eskqp-yobuwvx dyskinesia noted. Not tardive upper extremity movements noted. Psychiatric: Attention and Perception: Attention normal. Mood and Affect: Mood normal. Affect is flat. Speech: Speech is slurred. Behavior: Behavior is cooperative. Thought Content: Thought content normal. Cognition and Memory: Memory is impaired. An electronic signature was used to authenticate this note. SOO Grant CNP 05/08/2023 7:22 AM Doctor'S Assistant for Intimate and Non Intimate Exam Doctor'S Assistant was declined Doctor'S Assistant: na documented in this encounter [facility] 05-08-2023 Instructions SOO Grant CNP - 05/08/2023 11:00 AM EDT Stop cariprazine 1.5 mg daily. Restart risperidone 4 mg daily (decreased dose from 6 mg) documented in this encounter [facility] 05-08-2023 Instructions SOO Grant CNP - 05/08/2023 11:00 AM EDT Stop cariprazine 1.5 mg daily. Restart risperidone 4 mg daily (decreased dose from 6 mg) documented in this encounter [facility] 05-08-2023 Note Addended by: ADRIANE ROGERS on: 05/09/2023 12:43 PM Modules accepted: Level of Service [facility] 04-24-2023 Evaluation + Plan note Associated Problem(s): Recurrent major depressive disorder, in full remission (HCC) Uncontrolled, will have her continue her venlafaxine but we will change her Risperdal to Vraylar 1.5 mg and will increase from there. Rx sent, follow-up in 4 weeks. [facility] 04-24-2023 Evaluation + Plan note Associated Problem(s): Class 1 obesity due to excess calories without serious comorbidity with body mass index (BMI) of 30.0 to 30.9 in adult Further weight loss is seen, will refill her phentermine for another month and follow-up in 4 weeks for weight check. [facility] 04-24-2023 Miscellaneous Notes Associated Problem(s): Recurrent major [...] for weight check. documented in this encounter [facility] 04-24-2023 History of Presen t illness Narrative Doctor'S Assistant for Intimate and Non Intimate Exam Doctor'S Assistant was declined Doctor'S Assistant: na Images from the original note were [...] 04/24/2023 1:40 PM documented in this encounter [facility] 03-26-2023 Evaluation + Plan note Associated Problem(s): Class 1 obesity due to excess calories without serious comorbidity with body mass index (BMI) of 31.0 to 31.9 in adult Phentermine 37.5 mg once a day follow-up in 4 weeks for weight check. [facility] 03-26-2023 Evaluation + Plan note Associated Problem(s): [...] needle. Complications: No Complications, Hemostasis achieved. [facility]: [id number] LOT: [id number] [facility]: [id number] LOT: [id number]. [facility] 03-26-2023 Miscellaneous Notes Associated Problem(s): Class 1 [...] needle. Complications: No Complications, Hemostasis achieved. [facility]: [id number] LOT: [id number] [facility]: [id number] LOT: [id number]. documented in this encounter [facility] 03-26-2023 History of Presen t illness Narrative [...] needle. Complications: No Complications, Hemostasis achieved. [facility]: [id number] LOT: [id number] [facility]: [id number] LOT: [id number]. Orders: - Large Joint Injection/Arthrocentesis - methylPREDNISolone [...] 03/26/2023 2:18 PM documented in this encounter [facility] 02-12-2023 Telephone encounter Note Prescription Request: Last medication check: 05/01/22 Last physical exam: 10/29/22 Next scheduled appointment: 10/30/23 Last date of refill on this medication 08/13/22 90 days 1 refill [facility] 02-12-2023 Miscellaneous Notes Prescription Request: Last medication check: 05/01/22 Last physical exam: 10/29/22 Next scheduled appointment: 10/30/23 Last date of refill on this medication 08/13/22 90 days 1 refill documented in this encounter [facility] 12-31-2022 Telephone encounter Note Prescription Request: Last medication check: 05/01/22 Last physical exam: 10/29/22 Next scheduled appointment: 10/30/23 Last date of refill on this medication 07/04/22 [facility] 12-31-2022 Miscellaneous Notes Prescription Request: Last medication check: 05/01/22 Last physical exam: 10/29/22 Next scheduled appointment: 10/30/23 Last date of refill on this medication 07/04/22 documented in this encounter [facility] 12-28-2022 Telephone encounter Note Prescription Request: Last medication check: 05/01/22 Last physical exam: 10/29/22 Next scheduled appointment: 10/30/23 Last date of refill on this medication 07/04/22 [facility] 12-28-2022 Miscellaneous Notes Prescription Request: Last medication check: 05/01/22 Last physical exam: 10/29/22 Next scheduled appointment: 10/30/23 Last date of refill on this medication 07/04/22 documented in this encounter [facility] 10-29-2022 Evaluation + Plan note Associated Problem(s): Hyperlipidemia LDL goal <100 Controlled, continue simvastatin 40 mg nightly [facility] 10-29-2022 Miscellaneous Notes Associated Problem(s): Hyperlipidemia LDL [...] 25 mg daily documented in this encounter [facility] 10-29-2022 Evaluation + Plan note Associated Problem(s): Recurrent major depressive disorder, in full remission (HCC) Remission, venlafaxine XR 225 mg daily and Risperdal 4 mg daily [facility] 10-29-2022 Evaluation + Plan note Associated Problem(s): Anxiety Remission, venlafaxine XR 225 mg daily and Risperdal 4 mg daily [facility] 10-29-2022 Evaluation + Plan note Associated Problem(s): Prediabetes Currently on no medications, very strict low-carb diet. [facility] 10-29-2022 Evaluation + Plan note Associated Problem(s): Obesity (BMI 35.0-39.9 without comorbidity) Contrave 8-90, 2 tablets twice a day, follow-up in 4 weeks for weight check [facility] 10-29-2022 Evaluation + Plan note Associated Problem(s): Essential hypertension Controlled, continue lisinopril 2.5 mg and metoprolol 25 mg daily [facility] 10-29-2022 History of Presen t illness Narrative Patient verified by last name and date of . Patient wants a skull grinder in the room during during the visit. No only during pap Doctor'S Assistant na Images from the original note were [...] nursing note reviewed. Exam conducted with a skull grinder present. Constitutional: General: She is not in [...] adverse reaction immediately. documented in this encounter [facility] Evaluation note Diagnosis Onset Date Atrial tachycardia chronic Cardiomyopathy chronic Essential hypertension chron [facility] Work Phone: Evaluation note* Diagnosis Onset Date Resolution Status Atrial tachycardia [facility] Work Phone: Evaluation note* Diagnosis Greater trochanteric bursitis of right hip- Primary Class 1 obesity due to excess calories without serious comorbidity with body mass index (BMI) of 31.0 to 31.9 in adult [facility]* Diagnosis Recurrent major depressive disorder, [...] TERESA on CPAP [facility] Diagnosis TERESA on CPAP- Primary [facility]* Diagnosis Tardive dyskinesia- Primary Subacute dyskinesia due to drugs [facility]* Diagnosis Tardive dyskinesia- Primary Subacute dyskinesia due to drugs Anxiety Anxiety state, unspecified [facility]* Diagnosis Tardive dyskinesia Subacute dyskinesia due to drugs [facility] Diagnosis Tardive dyskinesia- Primary Subacute dyskinesia due to drugs Anxiety Anxiety state, unspecified [facility]* Diagnosis Tardive dyskinesia- Primary Subacute dyskinesia due to drugs Weight loss Loss of weight Hot flashes Essential hypertension Unspecified essential hypertension [facility]* Diagnosis Tardive dyskinesia- Primary Subacute dyskinesia due to drugs Weight loss Loss of weight Hot flashes Essential hypertension Unspecified essential hypertension [facility]* Diagnosis Mild dementia without behavioral disturbance, psychotic disturbance, mood disturbance, or anxiety, unspecified dementia type (HCC)- Primary Tardive dyskinesia Subacute dyskinesia due to drugs [facility]* Diagnosis Mild dementia without behavioral disturbance, psychotic disturbance, mood disturbance, or anxiety, unspecified dementia type (HCC) [facility]* Diagnosis Recurrent major depressive disorder, in full remission (HCC) [facility]* Diagnosis Tardive dyskinesia- Primary Subacute dyskinesia due to drugs Anxiety and depression [facility] Diagnosis Anxiety- Primary Anxiety state, unspecified Tardive dyskinesia Subacute dyskinesia due to drugs Essential hypertension Unspecified essential hypertension Post-menopausal Asymptomatic postmenopausal status (age-related) (natural) Skin lesion Unspecified disorder of skin and subcutaneous tissue [facility]* Diagnosis 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- Primary [facility]* Diagnosis Anxiety- Primary Anxiety state, unspecified Recurrent major depressive disorder, in full remission (HCC) Essential hypertension Unspecified essential hypertension [facility]* Diagnosis Anxiety- Primary Anxiety state, unspecified Recurrent major depressive disorder, in full remission (HCC) [facility]* Diagnosis 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 [facility]* Diagnosis Anxiety Anxiety state, unspecified [facility]* Diagnosis Routine general medical [...] tract infection symptoms [facility]* Diagnosis Well female exam [...] and stress (male)(female) [facility]* Diagnosis Well female exam [...] spondylosis without myelopathy [facility]* Diagnosis Well female exam [...] due to drugs [facility]* Diagnosis Well female exam with [...] unspecified location- Primary [facility]* Diagnosis Well female exam with [...] Recurrent major depressive disorder, in full remission ([facility])- Primary Anxiety Anxiety state, unspecified Class 1 [...] due to drugs [facility]* Diagnosis Well female exam with [...] Abnormal mammogram, unspecified [facility]* Diagnosis Well female exam [...] Unspecified essential hypertension [facility]* Diagnosis Well female exam [...] abnormal movement disorder documented in this encounter [facility] Discharge instructions* Attachments The following attachments cannot be sent through Care Everywhere. * Moderate Sedation in Adults Discharge Instructions ([place]) * Colonoscopy Discharge Instructions ([place]) documented in this [facility] Discharge instructions* Attachments The following attachments cannot be sent through Care Everywhere. * Radius Fracture Discharge Instructions ([place]) documented in this [facility]* Attachments The following attachments cannot be sent through Care Everywhere. * Bladder Retraining ([place]) * Rotator Cuff Tear Exercises ([place]) documented in this [facility]* Attachments The following attachments cannot be sent through Care Everywhere. * Bladder Retraining ([place]) * Rotator Cuff Tear Exercises ([place]) documented in this [facility]* Attachments The following attachments cannot be sent through Care Everywhere. * Bladder Retraining ([place]) documented in this [facility] for referral (narrative)* Consultation (Urgent) - Pending Review Specialty Diagnoses / Procedures Referred By Scooter mcclure Referred To Contact Neurology Diagnoses Tardive dyskinesia Procedures [place] OFFICE/OUTPATIENT [facility] 60-74 MINUTES Adriane Hubbard APRN - CNP [address] [place] [address] [place] [address] [facility] Neuro [address] [place] [address] Referral ID Status Reason Start Date Expiration Date Visits Requested Visits Authorized [id number] Pending Review Specialty Services Required 06/19/2023 06/18/2024 1 1 [facility] for referral (narrative)* Consultation (Routine) - Pending Review Specialty Diagnoses / Procedures Referred By Contac t Referred To Contact Dermatology Diagnoses Skin lesion Procedures [place] OFFICE/OUTPATIENT NEW HIGH MDM 60 MINUTES Adriane Hubbard APRN - POWER AND RECOVERY SHIFT ENGINEER [address] [place] [address] [facility] Derm [address] [facility] [address] [place] [address] Referral ID Status Reason Start Date Expiration Date Visits Requested Visits Authorized [id number] Pending Review Specialty Services Required 07/08/2024 07/08/2025 1 1 * Consultation (Routine) - Pending Review Specialty Diagnoses / Procedures Referred By Contac t Referred To Contact General Surgery Diagnoses Colon cancer screening Procedures [place] OFFICE/OUTPATIENT NEW HIGH MDM 60 MINUTES Adriane Hubbard APRN - POWER AND RECOVERY SHIFT ENGINEER [address] [facility] [place] [address] Terry Bui MD [address] [place] [address] [address] [place] [address] Referral ID Status Reason Start Date Expiration Date Visits Requested Visits Authorized [id number] Pending Review Specialty Services Required 07/08/2024 07/08/2025 1 1 [facility] for visit Narrative* Auth/Cert (Routine) Specialty Diagnoses / Procedures Referred By Contac t Referred To Contact Diagnoses Encounter for screening for malignant neoplasm of colon Encounter for screening for malignant neoplasm of colon Procedures [place] COLON CA SCRN NOT HI RSK IND COLONOSCOPY FOR LOW RISK SCREENING Mason Haynes MD [address] [facility] [address] [place] [address] Phone: tel: fax: Referral ID Status Reason Start Date Expiration Date Visits Re quested Visits Authorized [id number] 07/15/2024 1 1 [facility] for visit Narrative* Imaging (Routine) - Closed Specialty Diagnoses / Procedures Referred By Contac t Referred To Contact Radiology Diagnoses Neck pain Cervical myelopathy (HCC) DDD (degenerative disc disease), cervical Cervical spondylosis Procedures MR cervical spine wo contrast Anjel Larsen, MECHANICAL SYSTEMS DESIGNER - POWER AND RECOVERY SHIFT ENGINEER [address] [facility] [address] [place] [address] Phone: tel: fax: [facility] MRI [address] [place] [address] Phone: tel: Referral ID Status Reason Start Date Expiration Date Visits Re quested Visits Authorized [id number] Closed 10/30/2024 10/30/2025 [facility] Imaging (Routine) - Closed Specialty Diagnoses / Procedures Referred By Contac t Referred To Contact Cardiology Diagnoses Cardiomyopathy, unspecified type (HCC) Abnormal electrocardiogram (ECG) (EKG) Procedures Transthoracic echocardiogram (TTE) complete with contrast, bubble, strain, and 3D PRN [place] ECHO TTHRC R-T 2D W/WOM-MODE COMPL SPEC&COLR D [place] TTE W OR WO FOL WCON,DOPPLER Adriane Hubbard, MECHANICAL SYSTEMS DESIGNER - POWER AND RECOVERY SHIFT ENGINEER [address] [facility] [place] [place] [address] Phone: tel: fax: Referral ID Status Reason Start Date Expiration Date Visits Re quested Visits Authorized [id number] Closed 12/08/2024 12/08/2025 1 1 [facility]* Imaging (Routine) - Closed Specialty Diagnoses / Procedures Referred By Contac t Referred To Contact Radiology Diagnoses Cervical myelopathy (HCC) Procedures MR cervical spine wo contrast Peng Mann MD [address] [facility] [address] [place] [address] Phone: tel: fax: Referral ID Status Reason Start Date Expiration Date Visits Re quested Visits Authorized [id number] Closed 12/08/2024 12/08/2025 1 1 [facility] for visit Narrative* Imaging (Routine) - Closed Specialty Diagnoses / Procedures Referred By Contac t Referred To Contact Radiology Diagnoses Subcutaneous mass of back Procedures MR thoracic spine w and wo contrast Peng Mann MD [address] [facility] [address] [place] [address] Phone: tel: fax: Referral ID Status Reason Start Date Expiration Date Visits Re quested Visits Authorized Closed 06/15/2025 06/15/2026 1 1 [facility] Summary Purpose Family History No Family History Records Found Relationship Condition Age at Onset Recorded Date/T yareli mother Cardiac disease Unknown father Cardiac disease Unknown brother Cardiac disease Unknown Advance Directives No Advanced Directives Records Found Advance Directive Response Recorded Date/ Time Advance Directives Yes April 02 9:25am Living Will No October 11, 2 019 3:14pm Power of Grain Oilseed Or Pasture Grower No October 11, 2019 3:14pm Date Activated Date Inactivated Comments 08/11/2024 8:20 AM 08/11/2024 12:29 PM Date Activated Date Inactivated Comments 08/11/2024 8:20 AM 08/11/2024 12:29 PM Documents on File Type Date Recorded 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 Power of Grain Oilseed Or Pasture Grower 10/16/2024 2:48 PM Advance Directives and Livin g Will 10/16/2024 2:48 PM Documents on File Type Date Recorded 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 Power of Grain Oilseed Or Pasture Grower 10/16/2024 2:48 PM Advance Directives and Livin g Will 10/16/2024 2:48 PM Documents on File Type Date Recorded 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 Advance Directives and Livin g Will 12/05/2024 9:16 PM Power of Grain Oilseed Or Pasture Grower 12/05/2024 9:16 PM Power of Grain Oilseed Or Pasture Grower 10/16/2024 2:48 PM Advance Directives and Livin g Will 10/16/2024 2:48 PM Documents on File Type Date Recorded 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 Advance Directives and Livin g Will 12/05/2024 9:16 PM Power of Grain Oilseed Or Pasture Grower 12/05/2024 9:16 PM Power of Grain Oilseed Or Pasture Grower 10/16/2024 2:48 PM Advance Directives and Livin g Will 10/16/2024 2:48 PM Documents on File Type Date Recorded 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 Advance Directives and Livin g Will 12/28/2024 2:15 PM Advance Directives and Livin g Will 12/05/2024 9:16 PM Power of Grain Oilseed Or Pasture Grower 12/05/2024 9:16 PM Power of Grain Oilseed Or Pasture Grower 10/16/2024 2:48 PM Advance Directives and Livin g Will 10/16/2024 2:48 PM Documents on File Type Date Recorded 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 Advance Directives and Livin g Will 12/28/2024 2:15 PM Advance Directives and Livin g Will 12/05/2024 9:16 PM Power of Grain Oilseed Or Pasture Grower 12/05/2024 9:16 PM Power of Grain Oilseed Or Pasture Grower 10/16/2024 2:48 PM Advance Directives and Livin [...] bursitis of right [place] [address] Referral ID Status Reason Start Date Expiration Date V isits Requested Visits Authorized [id number] Pending Review 03/26/2023 09/22/2023 1 1 Specialty Diagnoses / Procedures Referred By Scooter mcclure Referred To Contact Orthopedic Surgery / Orthopaedic Surgery Diagnoses Greater trochanteric bursitis of right hip Procedures Large Joint Injection/Arthrocentesis [facility]io [facility] [place] [id number] Referral ID Status Reason Start Date Expiration Date Visits Re quested Visits Authorized [id number] Closed 03/26/2023 09/22/2023 1 1 Specialty Diagnoses / Procedures Referred By Scooter mcclure Referred To Contact Sleep Medicine Diagnoses TERESA on CPAP Procedures Sleep study with pap titration Juvencio Davila MD [address] [place] [address] Referral ID Status Reason Start Date Expiration Date V isits Requested Visits Authorized [id number] Pending Review 06/03/2023 11/30/2023 1 1 Specialty Diagnoses / Procedures Referred By Contpatrick t Referred To Contact Jie Miranda MD [address] [facility] [place] [address] Referral ID Status Reason Start Date Expiration Date Visits Re quested Visits Authorized [id number] Closed 1 1 Specialty Diagnoses / Procedures Referred By Contac t Referred To Contact Radiology Diagnoses Mild dementia without behavioral disturbance, psychotic disturbance, mood disturbance, or anxiety, unspecified dementia type (HCC) Procedures CT head wo IV contrast Jie Miranda MD [address] [facility] [place] [address] Referral ID Status Reason Start Date Expiration Date Visits Re quested Visits Authorized [id number] Closed 08/01/2023 01/28/2024 1 1 Specialty Diagnoses / Procedures Referred By Contac t Referred To Contact Physical Therapy Diagnoses Gait disorder Procedures [place] OFFICE/OUTPATIENT NEW HIGH MDM 60 MINUTES Violet Castellanos APRN - CNP [address] [place] [address] Referral ID Status Reason Start Date Expiration Date Visits Requested Visits Authorized [id number] Pending Review Eval and Treat 04/02/2024 09/29/2024 99 99 Scheduling Instructions Evaluate and treat for gait imbalance Specialty Diagnoses / Procedures Referred By Contac t Referred To Contact Physical Therapy Diagnoses Parkinson's disease without dyskinesia or fluctuating manifestations (HCC) Procedures [place] OFFICE/OUTPATIENT NEW HIGH MDM 60 MINUTES Jie Miranda MD [address] [facility] [place] [address] [address] Referral ID Status Reason Start Date Expiration Date Visits Requested Visits Authorized [id number] Pending Review Eval and Treat 07/02/2024 12/29/2024 99 99 Scheduling Instructions Parkinson's disease Additional Source Comments INFORMATION SOURCE (unrecogn ized section and content) DATE CREATED AUTHOR 11/10/2018 [facility] DATE CREATED AUTHOR AUTHOR'S ORGANIZ ATION 08/27/2025 [facility] [facility] DATE CREATED AUTHOR AUTHOR'S ORGANIZ ATION 08/28/2025 [facility] Goals (unrecognized section and content) Goals [...] Dr. Ghulam Rosa MD Attending Provider Active Family Advocate Relationship Specialty Start Date End Date Juvencio Davila MD [address]. [place], [place] [id number] PCP - General 07/29/15 Family Advocate Relationship Specialty Start Date End Date Juvencio Davila MD [place], [place] [phone] PCP - General 07/29/15 Team Status: Inactive Member Role Status Dates Dr. Juvencio Davila MD Primary Care Provider Active Greta Cardoso DIGITAL ACCOUNT MANAGER, DIGITAL ACCOUNT MANAGER-C Attending Provider, Referring Provi camille Active Family Advocate Relationship Specialty Start Date End Date Juvencio Davila [place] [id number] PCP - General 07/29/15 Family Advocate Relationship Specialty Start Date End Date Juvencio Davila MD [address] [facility] [place] [address] PCP - General 07/29/15 Family Advocate Relationship Specialty Start Date End Date Juvencio Davila MD [address] [place] [address] PCP - General 07/29/15 Family Advocate Relationship Specialty Start Date End Date Juvencio Davila MD [address] [place] [address] PCP - General 07/29/15 Family Advocate Relationship Specialty Start Date End Date Juvencio Davila MD [address] [place] [address] PCP - General 07/29/15 Family Advocate Relationship Specialty Start Date End Date Juvencio Davila MD [address] [place] [address] PCP - General 07/29/15 Family Advocate Relationship Specialty Start Date End Date Juvencio Davila MD [address] [place] [address] PCP - General 07/29/15 Family Advocate Relationship Specialty Start Date End Date Juvencio Davila MD [address] [place] [address] PCP - General 07/29/15 Family Advocate Relationship Specialty Start Date End Date Juvencio Davila MD [address] [place] [address] PCP - General 07/29/15 Family Advocate Relationship Specialty Start Date End Date Juvencio Davila MD [address] [place] [address] PCP - General 07/29/15 Family Advocate Relationship Specialty Start Date End Date Juvencio Davila MD [address] [facility] [place] [address] PCP - General 07/29/15 Family Advocate Relationship Specialty Start Date End Date Juvencio Davila MD [address] [facility] [place] [address] PCP - General 07/29/15 Family Advocate Relationship Specialty Start Date End Date Juvencio Davila MD [address] [facility] [place] [facility] [place] [address] PCP - General 07/29/15 Family Advocate Relationship Specialty Start Date End Date Juvencio Davila MD [address] [place] [address] PCP - General 07/29/15 Family Advocate Relationship Specialty Start Date End Date Juvencio Davila MD [address] [place] [address] PCP - General 07/29/15 Family Advocate Relationship Specialty Start Date End Date Juvencio Davila MD [address] [facility] [place] [facility] [place] [address] PCP - General 07/29/15 Family Advocate Relationship Specialty Start Date End Date Juvencio Davila MD [address] [facility] [place] [address] PCP - General 07/29/15 Family Advocate Relationship Specialty Start Date End Date Juvencio Davila MD [address] [facility] [place] [address] PCP - General 07/29/15 Family Advocate Relationship Specialty Start Date End Date Juvencio Davila MD [address] [facility] [place] [address] PCP - General 07/29/15 Family Advocate Relationship Specialty Start Date End Date Juvencio Davila MD [address] [facility] [place] [address] PCP - General 07/29/15 Family Advocate Relationship Specialty Start Date End Date Juvencio Davila MD [facility] [place] [address] PCP - General 07/29/15 Family Advocate Relationship Specialty Start Date End Date Juvencio Davila MD [address] [facility] [place] [address] PCP - General 07/29/15 Family Advocate Relationship Specialty Start Date End Date Juvencio Davila MD [address] [place] [address] PCP - General 07/29/15 Family Advocate Relationship Specialty Start Date End Date Juvencio Davila MD [address] [place] [address] PCP - General 07/29/15 Family Advocate Relationship Specialty Start Date End Date Juvencio Davila MD [address] [place] [address] PCP - General 07/29/15 Family Advocate Relationship Specialty Start Date End Date Juvencio Davila MD [address] [place] [address] PCP - General 07/29/15 Family Advocate Relationship Specialty Start Date End Date Juvencio Davila MD [address] [place] [address] PCP - General 07/29/15 Family Advocate Relationship Specialty Start Date End Date Juvencio Davila MD [address] [place] [address] PCP - General 07/29/15 Family Advocate Relationship Specialty Start Date End Date Juvencio Davila MD [address] [place] [address] PCP - General 07/29/15 Family Advocate Relationship Specialty Start Date End Date Juvencio Davila MD [address] [place] [address] PCP - General 07/29/15 Family Advocate Relationship Specialty Start Date End Date Juvencio Davila MD [address] [place] [address] PCP - General 07/29/15 Family Advocate Relationship Specialty Start Date End Date Juvencio Davila MD [address] [facility] [place] [address] PCP - General 07/29/15 Family Advocate Relationship Specialty Start Date End Date Juvencio Davila MD [address] [place] [address] PCP - General 07/29/15 Family Advocate Relationship Specialty Start Date End Date Juvencio Davila MD [address] [place] [address] PCP - General 07/29/15 Family Advocate Relationship Specialty Start Date End Date Juvencio Davila MD [address] [place] [address] PCP - General 07/29/15 Family Advocate Relationship Specialty Start Date End Date Juvencio Davila MD [address] [place] [address] PCP - General 07/29/15 Family Advocate Relationship Specialty Start Date End Date Juvencio Davila MD [address] [place] [address] PCP - General 07/29/15 Family Advocate Relationship Specialty Start Date End Date Juvencio Davila MD [address] [place] [address] PCP - General 07/29/15 Family Advocate Relationship Specialty Start Date End Date Juvencio Davila MD [address] [facility] [place] [address] PCP - General 07/29/15 Family Advocate Relationship Specialty Start Date End Date Juvencio Davila MD [address] [place] [address] PCP - General 07/29/15 Family Advocate Relationship Specialty Start Date End Date Juvencio Davila MD [address] [facility] [place] [address] PCP - General 07/29/15 Family Advocate Relationship Specialty Start Date End Date Juvencio Davila MD [facility] [place] [address] PCP - General 07/29/15 Family Advocate Relationship Specialty Start Date End Date Juvencio Davila MD [place] [address] PCP - General 07/29/15 Family Advocate Relationship Specialty Start Date End Date Juvencio Davila MD [address] [place] [address] PCP - General 07/29/15 Family Advocate Relationship Specialty Start Date End Date Juvencio Davila MD [address] [place] [address] PCP - General 07/29/15 Family Advocate Relationship Specialty Start Date End Date Juvencio Davila MD [address] [place] [address] PCP - General 07/29/15 Family Advocate Relationship Specialty Start Date End Date Juvencio Davila MD [address] [place] [address] PCP - General 07/29/15 Family Advocate Relationship Specialty Start Date End Date Juvencio Davila MD [address] [place] [address] PCP - General 07/29/15 Family Advocate Relationship Specialty Start Date End Date Juvencio Davila MD [address] [place] [address] PCP - General 07/29/15 Family Advocate Relationship Specialty Start Date End Date Juvencio Davila MD [address] [place] [address] PCP - General 07/29/15 Family Advocate Relationship Specialty Start Date End Date Juvencio Davila MD [address] [place] [address] PCP - General 07/29/15 Family Advocate Relationship Specialty Start Date End Date Juvencio Davila MD [address] [place] [address] PCP - General 07/29/15 Family Advocate Relationship Specialty Start Date End Date Juvencio Davila MD [address] [place] [address] PCP - General 07/29/15 Family Advocate Relationship Specialty Start Date End Date Juvencio Davila MD [address] [facility] [place] [address] PCP - General 07/29/15 Family Advocate Relationship Specialty Start Date End Date Juvencio Davila MD [address] [facility] [place] [address] PCP - General 07/29/15 Family Advocate Relationship Specialty Start Date End Date Juvencio Davila MD [address] [place] [address] PCP - General 07/29/15 Family Advocate Relationship Specialty Start Date End Date Juvencio Davila MD [address] [place] [address] PCP - General 07/29/15 Family Advocate Relationship Specialty Start Date End Date Jvuencio Davila MD [address] [facility] [place] [address] PCP - General 07/29/15 Family Advocate Relationship Specialty Start Date End Date Juvencio Davila MD [address] [facility] [place] [address] PCP - General 07/29/15 Family Advocate Relationship Specialty Start Date End Date Juvencio Davila MD [address] [facility] [place] [address] PCP - General 07/29/15 Family Advocate Relationship Specialty Start Date End Date Juvencio Davila MD [address] [place] [place] [address] PCP - General 07/29/15 Family Advocate Relationship Specialty Start Date End Date Juvencio Davila MD [address] [place] [facility] [place] [address] PCP - General 07/29/15 Family Advocate Relationship Specialty Start Date End Date Juvencio Davila MD [address] [facility] [place] [address] PCP - General 07/29/15 Family Advocate Relationship Specialty Start Date End Date Juvencio Davila MD [address] [facility] [place] [address] PCP - General 07/29/15 Family Advocate Relationship Specialty Start Date End Date Juvencio Davila MD [address] [place] [address] PCP - General 07/29/15 Family Advocate Relationship Specialty Start Date End Date Juvencio Davila MD [address] [place] [address] PCP - General 07/29/15 Adriane Hubbard APRN - DIONY [address] [facility] [place] [address] Nurse Practitioner Nurse Practitioner Family 06/24/25 Family Advocate Relationship Specialty Start Date End Date Juvencio Davila MD [address] [facility] [place] [address] PCP - General 07/29/15 Adriane Hubbard APRN - CNP [address] [place] [address] Nurse Practitioner Nurse Practitioner Family 06/24/25 Family Advocate Relationship Specialty Start Date End Date Juvencio Davila MD [address] [place] [address] PCP - General 07/29/15 Adriane Hubbard APRN - CNP [address] [place] [address] Nurse Practitioner Nurse Practitioner Family 06/24/25 Family Advocate Relationship Specialty Start Date End Date Juvencio Davila MD [address] [place] [address] PCP - General 07/29/15 Adriane Hubbard APRN - CNP [address] [place] [address] Nurse Practitioner Nurse Practitioner Family 06/24/25 Reason for Visit (unrecogniz ed section and content) Reason Comments Med Refill Reason Comments Hip Pain Right hip- asking fo r inj Specialty Diagnoses / Procedures Referred By Scooter t Referred To Contact Diagnoses Greater trochanteric bursitis of right hip Juvencio Davila MD [address] [place] [address] Referral ID Status Reason Start Date Expiration Date V isits Requested Visits Authorized [id number] Pending Review 03/26/2023 09/22/2023 1 1 Reason [...] To Contact Neurology Diagnoses Tardive dyskinesia Procedures [place] OFFICE/OUTPATIENT NEW HIGH MDM 60-74 MINUTES Adriane Hubbard, MECHANICAL SYSTEMS DESIGNER - POWER AND RECOVERY SHIFT ENGINEER [address] [place] [address] [place] [address] [facility] Neuro [address] [place] [address] Referral ID Status Reason Start Date Expiration Date Visits Requested Visits Authorized [id number] Pending Review Specialty Services Required 06/19/2023 06/18/2024 [...] wo IV contrast Jie Miranda MD [address] [facility] [place] [address] Referral ID Status Reason Start Date Expiration Date Visits Re quested Visits Authorized [id number] Closed 08/01/2023 01/28/2024 1 1 Reason Onset [...] lumbar region with discogenic back pain Procedures [place] OFFICE/OUTPATIENT NEW HIGH MDM 60 MINUTES Adriane Hubbard, MECHANICAL SYSTEMS DESIGNER - POWER AND RECOVERY SHIFT ENGINEER [address] [facility] [place] [address] Phone: tel: fax: Anjel Larsen, MECHANICAL SYSTEMS DESIGNER - POWER AND RECOVERY SHIFT ENGINEER 1 [facility] [address] [place] [address] Phone: tel: fax: Referral ID Status Reason Start Date Expiration Date V isits Requested Visits Authorized [id number] Closed Specialty Services Required 10/22/2024 10/22/2025 1 [...] Visit Jose t Health Maintenance Bone Density Scan-CT EDS TO SCHEDULE Derm Melanoma Skin Check-needs [...] head of right radius, initial encounter Procedures [place] OFFICE/OUTPATIENT NEW HIGH MDM 60 MINUTES Bud Malik DO [address] [place] [address] Phone: tel: fax: Mook Rivera MD 1 [facility] [address] [place] [address] Phone: tel: fax: Referral ID Status Reason Start Date Expiration Date V isits Requested Visits Authorized [id number] Closed Specialty Services Required 12/05/2024 12/05/2025 1 [...] BE BASED ON THE PRIMARY CLINICAL RECORDS. [facility]. provides no warranty or guarantee of the accuracy or completeness of information in this document.
[2025-09-11 23:25] LABS: CRP < 3.00 mg/L (0.0-3.0)
[2025-09-11] MEDS: Aspirin E.C. 81 MG Tablet PO (23:39)
[2025-09-12 00:10] LABS: Barbiturate Urine NEGATIVE (< 200 ng/mL); Benzodiazepine Urine NEGATIVE (< 200 ng/mL); PCP Urine NEGATIVE (< 25 ng/mL); THC Urine NEGATIVE (< 50 ng/mL)
[2025-09-12 04:00] VITALS: BP 137/84; PULSE 59; RESP 20; TEMP 37.1; O2SAT 95
[2025-09-12 06:28] LABS: Hematocrit 39.0 % (37-47); Hemoglobin 12.9 g/dL (12.0-15.0); Immature Granulocytes Count 0.030 X10^3/uL (0.0-0.0); Mean Corp Hgb Conc 33.1 g/dL (32-36); Mean Corpuscular Volume 92.2 fL (81-99); Mean Platelet Vol. 10.9 fl (6.2-12.0); NRBC Flagged by Analyzer 0 % (0-5); Platelet Count 255 K/mm3 (150-450); RBC Distribution Width CV 12.9 % (11.6-14.6); RBC Distribution Width SD 43.8 fl (35.1-43.9); Red Blood Count 4.23 M/mm3 (4.2-5.4); White Blood Count 6.8 K/mm3 (4.4-11.0)
[2025-09-12 06:59] LABS: AST(SGOT) 29 U/L (<=31); Alanine Aminotransfer ALT/SGPT 31 U/L (<=34); Albumin, Serum 4.0 g/dL (3.4-4.8); Alkaline Phosphatase 75 U/L (35-104); Anion Gap 11 (5-15); BUN 14 mg/dL (4-19); BUN/Creat Ratio 19.1 RATIO (10-20); Calcium,Total 9.4 mg/dL (7.6-11.0); Carbon Dioxide 24.1 mmol/L (21.0-32.0); Chloride 105 mmol/L (98-108); Cholesterol 172 mg/dL (<=200); Estimated Creatinine Clearance 67.34 ml/min (50-250); Globulin 2.4 g/dL (2.2-4.2); Glucose 94 mg/dL (70-99); Low Density Lipoprotein Calc. 97 mg/dL; Magnesium 2.2 mg/dL (1.5-2.2); Potassium 3.7 mmol/L (3.3-5.1); Triglycerides 127 mg/dL; Very Low Density Lipoprotein 25 mg/dL (5-40); cholesterol:hdl ratio screen 3.28
[2025-09-12 08:00] VITALS: BP 142/78; PULSE 65; RESP 18; TEMP 36.6; O2SAT 98
--- NOTE | 2025-09-12 08:15 | CON.PCM.NE_ITS ---
Assessment and Plan: Neuro Assessment/Plan KAMILA SUAREZ is a 70 F with a past medical history of , being evaluated by Teleneurology for Diagnosis: Plan: - cogentin 0.5mg BID Transfer to [facility] for the following reasons: I personally attended this patient and spent a total time of minutes evaluating this patient including clinical assessment, review of chart, medical history imaging, and determining appropriate treatment and workup. HPI Consult Data Date of Consult: 09/12/25 HPI Narrative HPI Narrative: KAMILA SUAREZ, is a 70 F with a history of major depressive disorder and history of tardive dyskinesia who presented to the emergency department at [facility] on 09/11/2025 with headache, lightheadedness, speech difficulty, and spasms. She stated that her symptoms essentially started on . She woke up and was feeling okay. She had been on Benadryl nightly for about 8 to 10 years and was told recently to stop it for allergy testing. Last dose was Saturday evening. She stated the headache started gradually in the bilateral frontal area and is persistently in the bilateral frontal area but now wraps around the side some. She also has had some upper extremity muscle jerks and significant tension in her neck related to the spasming. This is not causing pain. She has had intermittent dysarthria and some intermittent word finding issues. Her family who is at the bedside states that it kind has ebbed and flowed. She initially reported some dizziness however it sounds like it was more positional. She denied any tingling numbness or weakness that was new in her arms or legs. She has had no fever or chills. And had been doing well otherwise. She follows with psychiatry and sees Dr. Andrew Argueta with her last appointment seeing him on 08/23/2025. She is on Ingrezza which has been very effective for her tardive dyskinesia in general. Neurologic History The muscle spasms and speech difficulties are what brought her to the hospital. day got a bad headache and had nausea. Then later that day would have tremors and jolts. Saturday when starting to talk she would forget words and was mumbled. Still continues to have headache. The whole body is spasms. She took benadryl last night and speaking is improved greatly and spasms/tremors are improved. Has been having more migraines lately. She came off benadryl Wed for an allergy test. She has been on it for 8-10yrs, normally on 25mg PO daily. GARCIA currently the same. GARCIA - is in the front wraps around her headache, a throbbing and squeezing feeling. W photophobia and nausea, has had this GARCIA since . Prior to that was having GARCIA couple times a week. Currently not back to normal - the walking and speech are still a little off. She still feels jolting of the muscle spasms internally. PCP placed on benadryl for anti-histamine. Sees Neurology for TD. Without the ingrezza, her mouth would move constantly. Also takes klonopin - for anxiety. No changes to that medication (last dose changes was 6-8 months). Never been on a medication called Cogentin. Exam -? General: Laying comfortably in bed; in no acute distress. -? HENT: Normal oropharynx and mucosa. Normal external appearance of ears and nose. Exophthalmos. -? Neck: Supple, no pain or tenderness -? CV:? No peripheral edema. -? Pulmonary:? Normal respiratory effort. -? Ext: No cyanosis, edema, or deformity -? Skin: No rash. Normal palpation of skin.? -? Musculoskeletal: full range of motion; no joint tenderness. Normal digits and nails by inspection. No clubbing. -? NEURO: -? Mental Status: The patient was alert and oriented to time, place, and person. Normal recent/remote memory, concentration, and general fund of knowledge. -? Language: speech is intermittently dysarthric.? Naming, repetition, fluency, and comprehension intact. -? Cranial Nerves: PERRL 3mm/brisk. EOMI, visual jordan full, no facial asymmetry, facial sensation intact, hearing intact, tongue midline, no evidence of atrophy or fibrillations. -? Motor: normal bulk, tone, and strength throughout. No pronator drift or satelliting. Upper and lower extremities equal bilaterally. -? Detailed strength exam as performed by the nurse/KATY and witnessed by the physician: l R L SA 5 5 EE 5 5 EF 5 4 WE WF Dietetic Technician Registered 5 5 HF 5 5 KE KF 5 5 DF PF - no adventitial moves - no tremors, dyskinesias, or clear dystonias -? Tone: with slightly increased tone on the UE and the L ankle -? Sensation- Intact to light touch bilaterally -? Coordination: No dysmetria on [id number], finger follow finger or [id number]. -? Gait- Gait initiation was normal. Narrow base with good heel strike and stride length was observed during ambulation. Turns were in stride. Patient was able to walk normally in tandem. Romberg was normal. REPLACED BY [facility] Medical History MDD (major depressive disorder) Major depressive disorder in full remission History of uterine ablation Atrial tachycardia TERESA (obstructive sleep apnea) Depression Essential hypertension Cardiomyopathy Congestive heart failure Infection due to ESBL-producing Escherichia coli Lower back pain Home Medications ?Medication ?Instructions ?Recorded ?Last Taken ?Type folic acid 1 mg tablet 1 mg PO DAILY SUPPLEMENT 04/0806/11/23 History simvastatin 40 mg tablet 40 mg PO QHS CHOLESTEROL 04/0806/10/23 History aspirin 81 mg tablet,delayed 81 mg PO DAILY 01/03/23 0 06/11/23 History release metoprolol succinate 25 mg See Rx Instructions .Route 03/31/23 06/11/23 Rx tablet,extended release 24 hr .COMPLEX #90 tabs diphenhydramine HCl 25 mg tablet 25 mg PO QHS 12/04/23 Unknown History (Benadryl Allergy) valbenazine 80 mg capsule 40 mg PO DAILY 12/04/23 Unkn own History (Ingrezza) lisinopril 2.5 mg tablet 2.5 mg PO DAILY #90 TABLETS 09/04/24 Unknown Rx diclofenac sodium 75 mg 75 mg PO Q12H 12/08/24 Unkno wn History tablet,delayed release amantadine HCl 100 mg tablet 100 mg PO BID 03/09/25 Un known History buspirone 15 mg tablet 15 mg PO BID 90 days #180 ta bs 08/23/25 Unknown Rx clonazepam 0.5 mg tablet 0.25 mg (1/2 x 0.5 mg) PO BI D 30 08/23/25 Unknown Rx days #30 tabs fluoxetine 20 mg capsule 20 mg PO QDAY #90 caps 08/23 Unknown Rx fluoxetine 40 mg capsule 40 mg PO DAILY 90 days #90 c aps 08/23/25 Unknown Rx Allergy/AdvReac Type Severity Reaction Status Date / Time cariprazine (From [facility]) Allergy Mild DIZZINESS Verified 09/11/25 17:46 Family History Mother Heart disease Father Heart disease Brother Heart disease Surgical History History of tonsillectomy History of carpal tunnel surgery Social History Smoking Status: Never smoker alcohol intake: never substance use type: does not use caffeine: Yes (occasionally) Vital Signs Vital Signs Vital Signs: 09/11/25 17:41 09/11/25 19:40 09/11/25 20:49 Temperature 97.5 F L Temperature Source Temporal Pulse Rate 79 62 Pulse Rate [Lying] 64 Pulse Rate [Sitting (for 1 minute prior to obtaining)] 72 Pulse Rate [Standing (for 1 minute prior to obtaining)] 73 Respiratory Rate 16 18 Respiratory Effort Respiratory Depth Respiratory Pattern Blood Pressure 129/90 H 144/74 H Blood Pressure [Lying] 139/67 H Blood Pressure [Sitting (for 1 minute prior to obtaining)] 146/89 H Blood Pressure [Standing (for 1 minute prior to obtaining)] 151/74 H Blood Pressure Mean 103 97 Blood Pressure Mean [Lying] 91 Blood Pressure Mean [Sitting (for 1 minute prior to obtaining)] 108 Blood Pressure Mean [Standing (for 1 minute prior to obtaining)] 99 Blood Pressure Source Blood Pressure Position Pulse Ox 99 97 Oxygen Delivery Method Room Air 09/11/25 21:00 09/11/25 21:53 09/11/25 23:25 Temperature 98.6 F 98 F Temperature Source Oral Pulse Rate 56 L 62 64 Pulse Rate [Lying] Pulse Rate [Sitting (for 1 minute prior to obtaining)] Pulse Rate [Standing (for 1 minute prior to obtaining)] Respiratory Rate 16 18 18 Respiratory Effort Respiratory Depth Respiratory Pattern Blood Pressure 142/63 H 142/63 H 145/75 H Blood Pressure [Lying] Blood Pressure [Sitting (for 1 minute prior to obtaining)] Blood Pressure [Standing (for 1 minute prior to obtaining)] Blood Pressure Mean 89 89 98 Blood Pressure Mean [Lying] Blood Pressure Mean [Sitting (for 1 minute prior to obtaining)] Blood Pressure Mean [Standing (for 1 minute prior to obtaining)] Blood Pressure Source Monitor Blood Pressure Position Semi-Fowlers Pulse Ox 97 100 94 Oxygen Delivery Method Room Air Room Air 09/11/25 23:30 09/11/25 23:35 09/12/25 04:00 Temperature 98.7 F Temperature Source Temporal Pulse Rate 59 L Pulse Rate [Lying] Pulse Rate [Sitting (for 1 minute prior to obtaining)] Pulse Rate [Standing (for 1 minute prior to obtaining)] Respiratory Rate 18 20 H Respiratory Effort Normal Respiratory Depth Normal Respiratory Pattern Normal Blood Pressure 137/84 H Blood Pressure [Lying] Blood Pressure [Sitting (for 1 minute prior to obtaining)] Blood Pressure [Standing (for 1 minute prior to obtaining)] Blood Pressure Mean 101 Blood Pressure Mean [Lying] Blood Pressure Mean [Sitting (for 1 minute prior to obtaining)] Blood Pressure Mean [Standing (for 1 minute prior to obtaining)] Blood Pressure Source Blood Pressure Position Pulse Ox 99 99 95 Oxygen Delivery Method Room Air Room Air Room Air Weight Weight: 83.3 kg Body Mass Index (BMI) 33.5 EEG Results Procedure Details EEG Procedure Details: KAMILA SUAREZ is a 70 year old F with a past medical history of , who presents for evaluation of Electroencephalogram on DATE at TIME Lab / Micro Data 09/12/25 05:40 09/12/25 05:40 Labs: Laboratory Results - last 24 hr 09/11/25 18:08: WBC 8.2, RBC 4.52, Hgb 14.1, Hct 41.3, MCV 91.4, MCH 31.2, MCHC 34.1, RDW Std Deviation 41.8, RDW Coeff of Darlyn 12.5, Plt Count 277, MPV 11.2, Immature Gran % (Auto) 0.400, Neut % (Auto) 54.9, Lymph % (Auto) 36.5, [place] % (Auto) 7.2, Eos % (Auto) 0.5, Baso % (Auto) 0.5, Absolute Neuts (auto) 4.5, Absolute Lymphs (auto) 2.99, Nucleated RBC % 0, Sodium 138, Potassium 3.9, Chloride 103, Carbon Dioxide 23.3, Anion Gap 12, BUN 15, Creatinine 0.75, Estim Creat Clear Calc 67.64, Est GFR (MDRD) Non-Af 87, BUN/Creatinine Ratio 20.2 H, Glucose 96, Hemoglobin A1c 5.3, Calcium 9.7, C-React Prot Ext Range < 3.00 09/11/25 18:22: POC Glucose 91 09/11/25 19:10: Urine Color Yellow, Urine Clarity Clear, Urine pH 7.0, Ur Specific [place] 1.010, Urine Protein 15 H, Urine Glucose (UA) Normal, Urine Ketones Negative, Urine Occult Blood 10 H, Urine Nitrite Negative, Urine Bilirubin Negative, Urine Urobilinogen Normal, Ur Leukocyte Esterase 25 H, Urine RBC 0 SEEN, Urine WBC 0-5 SEEN, Ur Squamous Epith Cells 0-5 SEEN, Urine Bacteria 1+, Urine Mucus 0 SEEN, Urine Opiates Screen NEGATIVE, U Buprenorphine Qual NEGATIVE, Ur Oxycodone Screen NEGATIVE, Urine Methadone Screen NEGATIVE, Urine Fentanyl Screen NEGATIVE, Ur Barbiturates Screen NEGATIVE, Ur Phencyclidine Scrn NEGATIVE, Ur Amphetamines Screen NEGATIVE, U Benzodiazepines Scrn NEGATIVE, Urine Cocaine Screen NEGATIVE, U Cannabinoids Screen NEGATIVE 09/12/25 05:40: WBC 6.8, RBC 4.23, Hgb 12.9, Hct 39.0, MCV 92.2, MCH 30.5, MCHC 33.1, RDW Std Deviation 43.8, RDW Coeff of Darlyn 12.9, Plt Count 255, MPV 10.9, Immature Gran % (Auto) 0.400, Neut % (Auto) 51.7, Lymph % (Auto) 38.5, [place] % (Auto) 8.2, Eos % (Auto) 0.6, Baso % (Auto) 0.6, Absolute Neuts (auto) 3.5, Absolute Lymphs (auto) 2.62, Nucleated RBC % 0, ESR 5, Sodium 140, Potassium 3.7, Chloride 105, Carbon Dioxide 24.1, Anion Gap 11, BUN 14, Creatinine 0.71, Estim Creat Clear Calc 67.34, Est GFR (MDRD) Non-Af 93, BUN/Creatinine Ratio 19.1, Glucose 94, Calcium 9.4, Phosphorus 4.3, Magnesium 2.2, Total Bilirubin 0.46, AST 29, ALT 31, Alkaline Phosphatase 75, Total Protein 6.3, Albumin 4.0, Globulin 2.4, Albumin/Globulin Ratio 1.7, Triglycerides 127, Cholesterol 172, LDL Cholesterol, Calc 97, VLDL Cholesterol 25, HDL Cholesterol 52, Cholesterol/HDL Ratio 3.28, TSH 3.960 Imaging Radiology Impression Brain CT 09/11/25 18:24 IMPRESSION: Negative for acute intracranial pathology. Reading Location: [facility] Head/Neck CTA 09/11/25 18:24 IMPRESSION: Negative for acute intracranial pathology. Age-appropriate appearance of the brain Negative CTA of the head Negative for large vessel occlusion. Negative for hemodynamic significant stenosis in either carotid system. Negative CTA of the neck. Reading Location: [facility] Chest X-Ray 09/11/25 18:50 IMPRESSION: Negative for acute cardiopulmonary disease. Reading Location: [facility] Active Medications Active Medications Active Medications: Current Medications Generic Name Dose Route Start Last Admin Trade Name Freq PRN Reason Stop Dose Admin Acetaminophen 650 mg 09/11/25 23:02 Acetaminophen 325 Mg Tablet PO Q4H PRN PRN Pain 1-10 Or Fever>99.6 Hydrocodone Bitart/Acetaminophen 1 tablet 09/11/25 23:02 Hydrocodone Bitartrate/Apap 5/325 Tablet PO Q6H PRN PRN pain 1-10 Albuterol Sulfate 2.5 mg 09/11/25 23:02 Albuterol 2.5 Mg/3 Ml Vial.Neb. INHALATION Q2H PRN PRN SOB &/OR WHEEZING Amantadine HCl 100 mg 09/11/25 23:02 09/11/25 23:39 Amantadine 100 Mg Capsule PO 100 mg BID NATA Administration Aspirin 81 mg 09/12/25 08:00 09/11/25 23:39 Aspirin E.C. 81 Mg Tablet PO 81 mg BREAKFAST NATA Administration Atorvastatin Calcium 80 mg 09/11/25 23:02 09/11/25 23:40 Atorvastatin Calcium 80 Mg Tablet PO 80 mg QHS NATA Administration Buspirone HCl 15 mg 09/11/25 23:02 09/11/25 23:39 Buspirone 15 Mg Tablet PO 15 mg BID NATA Administration Clarify Med Order 0 each 09/11/25 23:30 09/11/25 23:23 Clarify Order NOTE Not Given CLARIFY [facility] Clonazepam 0.25 mg 09/11/25 23:02 09/11/25 23:40 Clonazepam 0.5 Mg Tablet PO 0.25 mg BID NATA Administration Diazepam 2 mg 09/11/25 23:02 Diazepam 2 Mg Tablet PO TID PRN PRN muscle spasms Diclofenac Sodium 75 mg 09/12/25 08:00 Diclofenac 75 Mg Tablet PO BIDCM [facility] Enoxaparin Sodium 40 mg 09/12/25 10:00 Enoxaparin 40 Mg/0.4 Ml Syringe SC DAILY [facility] Fluoxetine HCl 60 mg 09/12/25 10:00 Fluoxetine 20 Mg Capsule PO DAILY [facility] Folic Acid 1 mg 09/12/25 08:00 Folic Acid 1 Mg Tablet PO BREAKFAST [facility] Hydralazine HCl 5 mg 09/11/25 23:02 Hydralazine 20 Mg/Ml Vial IV 09/12/25 23:02 Q30M PRN maintain BP parameters with HR <60 Sodium Chloride 250 mls @ 15 mls/hr 09/11/25 23:03 IV .[id number] PRN Saline Flush Sodium Chloride 250 mls @ 15 mls/hr 09/11/25 23:03 IV .[id number] PRN Additional IVPB Infusion Influenza Virus Vaccine 180 mcg 09/12/25 10:00 Flu Vaccine High Dose 25-26(65yr Up) 180 Mcg/0.5 Ml Syringe IM 09/12/25 10:01 .ONCE ONE Labetalol HCl 10 - 20 mg 09/11/25 23:02 Labetalol 20 Mg/4 Ml Vial IV 09/12/25 23:02 Q10M PRN PRN maintain BP parameters with HR >/=60 Lisinopril 2.5 mg 09/12/25 10:00 Lisinopril 2.5 Mg Tablet PO DAILY [facility] Protocol Melatonin 10 mg 09/11/25 23:02 Melatonin 10 Mg Tablet PO QHS PRN PRN INSOMNIA Metoprolol Succinate 25 mg 09/12/25 10:00 Metoprolol(Xl)Succ 25 Mg Tablet PO DAILY [facility] Protocol Non-Formulary Medication 40 mg 09/12/25 10:00 Valbenazine [Ingrezza] PO DAILY [facility] Ondansetron HCl 4 mg 09/11/25 23:02 Ondansetron 4 Mg/2 Ml Vial IV Q8H PRN PRN NAUSEA/VOMITING Senna/Docusate Sodium 2 tablet 09/11/25 23:02 Senna/Docusate Sodium 1 Tablet PO BID PRN PRN Constipation Sodium Chloride 10 - 40 ml 09/11/25 23:03 0.9% Saline Lock 10 Ml Syringe IV UD PRN SALINE FLUSH NIHSS NIHSS Nursing Documentation NIHSS Nursing Documentation: NIH Stroke Scale Start: 09/11/25 18:07 Freq: Status: Discharge Protocol: Activity Type Activity Date Activity User E-sign Co-sign Detail Recorded Client Recorded Date Recorded By Document 09/11/25 18:07 [facility] [id number] 09/11/25 18:07 [facility] 09/11/25 18:07 NIH Stroke Scale [NIHSS] A score of 0 is normal or asymptomatic . Total possible score is 42. Inpatient: RN or Physician to activate a stroke alert for onset of new stroke symptoms or with NIHSS increase >/= 3 points. Following change in neurological status, NIHSS will be performed per physician order or more frequently PRN. -1a. Level of Consciousness 0 - Alert; keenly responsive -1b. LOC Questions 0 - Answers BOTH questions correctly -1c. LOC Commands 0 - Performs BOTH tasks correctly -2. Best Gaze 0 - Normal -3. Visual 0 - No visual loss -4. Facial Palsy 0 - Normal symmetrical movements -5a. Left Arm 0 - No drift; arm holds 90 ( or 45) degrees for full 10 seconds -5b. Right Arm 0 - No drift; arm holds 90 ( or 45) degrees for full 10 seconds -6a. Left Leg 0 - No drift; leg holds 30- degree position for full 5 seconds -6b. Right Leg 0 - No drift; leg holds 30- degree position for full 5 seconds -7. Limb Ataxia 0 - Absent -8. Sensory 0 - Normal; no sensory loss -9. Best Language 1 - Mild-to- moderate aphasia; -10. Dysarthria 1 = Mild-to- moderate dysarthria; -11. Extinction and Inattention 0 - No abnormality -Total 2 Query Text:A score of 0 is normal or asymptomatic. Total possible score is 42 . ED: Notify Physician for NIHSS increase by > / = 3 points. Inpatient: RN or Physician to activate a stroke alert for NIHSS increase of > / = 3 points. NIHSS: Ischemic Stroke/TIA Start: 09/11/25 23:02 Text: For ICU Patients: NIH sroke scale at Status: Complete presentation and every 2 hours or with change in RN caregiver Freq: [id number] Protocol: Activity Type Activity Date Activity User E-sign Co-sign Detail Recorded Client Recorded Date Recorded By Document 09/11/25 23:25 [facility] [id number] 09/11/25 23:28 [facility] 09/11/25 23:25 -1a. Level of Consciousness 0 - Alert; keenly responsive -1b. LOC Questions 0 - Answers BOTH questions correctly -1c. LOC Commands 0 - Performs BOTH tasks correctly -2. Best Gaze 0 - Normal -3. Visual 0 - No visual loss -4. Facial Palsy 0 - Normal symmetrical movements -5a. Left Arm 0 - No drift; arm holds 90 ( or 45) degrees for full 10 seconds -5b. Right Arm 0 - No drift; arm holds 90 ( or 45) degrees for full 10 seconds -6a. Left Leg 0 - No drift; leg holds 30- degree position for full 5 seconds -6b. Right Leg 0 - No drift; leg holds 30- degree position for full 5 seconds -7. Limb Ataxia 0 - Absent -8. Sensory 0 - Normal; no sensory loss -9. Best Language 1 - Mild-to- moderate aphasia; -10. Dysarthria 1 = Mild-to- moderate dysarthria; -11. Extinction and Inattention 0 - No abnormality -Total 2 Query Text:A score of 0 is normal or asymptomatic. Total possible score is 42 . ED: Notify Physician for NIHSS increase by > / = 3 points. Inpatient: RN or Physician to activate a stroke alert for NIHSS increase of > / = 3 points. Coma Scale [Assess] -Eye Opening Spontaneous -Motor Obeys Commands -Verbal Oriented [Total] -Coma Scale Total 15 NIHSS: Ischemic Stroke/TIA Start: 09/11/25 23:02 Text: For PCU Patients: NIH and Neuro Check every 4 Status: Active hours, PRN and with change in RN caregiver. Freq: [id number] Protocol: Activity Type Activity Date Activity User E-sign Co-sign Detail Recorded Client Recorded Date Recorded By Document 09/12/25 04:00 [facility] [id number] 09/12/25 04:08 [facility] 09/12/25 04:00 NIH Stroke Scale [NIHSS] A score of 0 is normal or asymptomatic . Total possible score is 42. Inpatient: RN or Physician to activate a stroke alert for onset of new stroke symptoms or with NIHSS increase >/= 3 points. Following change in neurological status, NIHSS will be performed per physician order or more frequently PRN. -1a. Level of Consciousness 0 - Alert; keenly responsive -1b. LOC Questions 0 - Answers BOTH questions correctly -1c. LOC Commands 0 - Performs BOTH tasks correctly -2. Best Gaze 0 - Normal -3. Visual 0 - No visual loss -4. Facial Palsy 0 - Normal symmetrical movements -5a. Left Arm 0 - No drift; arm holds 90 ( or 45) degrees for full 10 seconds -5b. Right Arm 0 - No drift; arm holds 90 ( or 45) degrees for full 10 seconds -6a. Left Leg 0 - No drift; leg holds 30- degree position for full 5 seconds -6b. Right Leg 0 - No drift; leg holds 30- degree position for full 5 seconds -7. Limb Ataxia 0 - Absent -8. Sensory 0 - Normal; no sensory loss -9. Best Language 1 - Mild-to- moderate aphasia; -10. Dysarthria 0 - Normal -11. Extinction and Inattention 0 - No abnormality -Total 1 Query Text:A score of 0 is normal or asymptomatic. Total possible score is 42 . ED: Notify Physician for NIHSS increase by > / = 3 points. Inpatient: RN or Physician to activate a stroke alert for NIHSS increase of > / = 3 points. Coma Scale [Assess] -Eye Opening Spontaneous -Motor Obeys Commands -Verbal Oriented [Total] -Coma Scale Total 15
--- NOTE | 2025-09-12 09:41 | MRI_ITS ---
PROCEDURE: BRAIN W/WO CONTRAST 09/12/2025 REASON FOR EXAM: DYSARTHRIA/WORD FINDING DIFFICULTY TECHNIQUE: Procedure Code: [id number] Modality: MR Procedure: BRAIN W/WO CONTRAST Multiplanar and multisequence images were obtained. CONTRAST: Clariscan VOLUME: 17 mL COMPARISON: None FINDINGS: Brain: No acute territorial infarction. No acute intracranial hemorrhage. No masses or midline shift. Diffuse white matter hypodensities which are nonspecific but likely due to chronic small-vessel ischemia. Parenchymal volume loss consistent with brain atrophy. No ventriculomegaly. The orbits are unremarkable. The craniocervical junction is unremarkable. Diffusion: No restricted diffusion. Ventricles: No ventriculomegaly. Major Intracranial Vessels: Unremarkable. Sinuses: Clear. Mastoids: Clear. MRI/Brain W/WO Contrast IMPRESSION: No acute brain abnormalities. No abnormal enhancement. No masses. White matter changes which are nonspecific but most likely due to chronic small -vessel ischemia. Reading Location: [id number]
[2025-09-12 11:26] VITALS: BP 153/67; PULSE 67; RESP 16; TEMP 36.6; O2SAT 98
[2025-09-12] MEDS: Aspirin E.C. 81 MG Tablet PO (11:35)
[2025-09-12 11:37] VITALS: BP 153/67; PULSE 67
[2025-09-12] MEDS: Metoprolol(XL)Succ 25 MG Tablet PO (11:37)
[2025-09-12] MEDS: VALBENAZINE TOSYLATE 40 MG CAPSULE PO (14:17)
[2025-09-12 14:19] VITALS: BP 128/47; PULSE 76; RESP 16; TEMP 36.6; O2SAT 93
--- NOTE | 2025-09-12 14:52 | PCM.PN.HOSP ---
Reason for Visit Chief Complaint: Headache/Lightheadedness/Speech Difficulty/spasm Subjective Subjective Still feeling tightness in her neck and occasional jerking movements but reports speech is slowly getting better and symptoms seem a little bit better than they were Objective Data Objective Data Vital Signs: Vital Signs Temp Pulse Resp BP Pulse Ox O2 Del Method 97.9 F 76 16 128/47 H 93 Room Air 09/12/25 14:19 09/12/25 14:19 09/12/25 14:19 09/12/25 14:19 09/12/25 14:19 09/12/25 14:19 Oxygen Delivery Method Room Air Weight: 83.3 kg Body Mass Index (BMI) 33.5 Intake & Output: Intake and Output for Last 24 Hours 09/10/25 09/11/25 09/12/25 23:59 23:59 23:59 Intake Total 1150 / 1150 Balance 1150 / 1150 Lab / Micro Data 09/12/25 05:40 09/12/25 05:40 Labs: Laboratory Results - last 24 hr 09/11/25 18:08: WBC 8.2, RBC 4.52, Hgb 14.1, Hct 41.3, MCV 91.4, MCH 31.2, MCHC 34.1, RDW Std Deviation 41.8, RDW Coeff of Darlyn 12.5, Plt Count 277, MPV 11.2, Immature Gran % (Auto) 0.400, Neut % (Auto) 54.9, Lymph % (Auto) 36.5, [place] % (Auto) 7.2, Eos % (Auto) 0.5, Baso % (Auto) 0.5, Absolute Neuts (auto) 4.5, Absolute Lymphs (auto) 2.99, Nucleated RBC % 0, Sodium 138, Potassium 3.9, Chloride 103, Carbon Dioxide 23.3, Anion Gap 12, BUN 15, Creatinine 0.75, Estim Creat Clear Calc 67.64, Est GFR (MDRD) Non-Af 87, BUN/Creatinine Ratio 20.2 H, Glucose 96, Hemoglobin A1c 5.3, Calcium 9.7, C-React Prot Ext Range < 3.00 09/11/25 18:22: POC Glucose 91 09/11/25 19:10: Urine Color Yellow, Urine Clarity Clear, Urine pH 7.0, Ur Specific [place] 1.010, Urine Protein 15 H, Urine Glucose (UA) Normal, Urine Ketones Negative, Urine Occult Blood 10 H, Urine Nitrite Negative, Urine Bilirubin Negative, Urine Urobilinogen Normal, Ur Leukocyte Esterase 25 H, Urine RBC 0 SEEN, Urine WBC 0-5 SEEN, Ur Squamous Epith Cells 0-5 SEEN, Urine Bacteria 1+, Urine Mucus 0 SEEN, Urine Opiates Screen NEGATIVE, U Buprenorphine Qual NEGATIVE, Ur Oxycodone Screen NEGATIVE, Urine Methadone Screen NEGATIVE, Urine Fentanyl Screen NEGATIVE, Ur Barbiturates Screen NEGATIVE, Ur Phencyclidine Scrn NEGATIVE, Ur Amphetamines Screen NEGATIVE, U Benzodiazepines Scrn NEGATIVE, Urine Cocaine Screen NEGATIVE, U Cannabinoids Screen NEGATIVE 09/12/25 05:40: WBC 6.8, RBC 4.23, Hgb 12.9, Hct 39.0, MCV 92.2, MCH 30.5, MCHC 33.1, RDW Std Deviation 43.8, RDW Coeff of Darlyn 12.9, Plt Count 255, MPV 10.9, Immature Gran % (Auto) 0.400, Neut % (Auto) 51.7, Lymph % (Auto) 38.5, [place] % (Auto) 8.2, Eos % (Auto) 0.6, Baso % (Auto) 0.6, Absolute Neuts (auto) 3.5, Absolute Lymphs (auto) 2.62, Nucleated RBC % 0, ESR 5, Sodium 140, Potassium 3.7, Chloride 105, Carbon Dioxide 24.1, Anion Gap 11, BUN 14, Creatinine 0.71, Estim Creat Clear Calc 67.34, Est GFR (MDRD) Non-Af 93, BUN/Creatinine Ratio 19.1, Glucose 94, Calcium 9.4, Phosphorus 4.3, Magnesium 2.2, Total Bilirubin 0.46, AST 29, ALT 31, Alkaline Phosphatase 75, Total Protein 6.3, Albumin 4.0, Globulin 2.4, Albumin/Globulin Ratio 1.7, Triglycerides 127, Cholesterol 172, LDL Cholesterol, Calc 97, VLDL Cholesterol 25, HDL Cholesterol 52, Cholesterol/HDL Ratio 3.28, TSH 3.960 Radiography Diagnostic Testing: Radiology Impression Brain CT 09/11/25 18:24 IMPRESSION: Negative for acute intracranial pathology. Reading Location: [id number] Head/Neck CTA 09/11/25 18:24 IMPRESSION: Negative for acute intracranial pathology. Age-appropriate appearance of the brain Negative CTA of the head Negative for large vessel occlusion. Negative for hemodynamic significant stenosis in either carotid system. Negative CTA of the neck. Reading Location: [facility] Chest X-Ray 09/11/25 18:50 IMPRESSION: Negative for acute cardiopulmonary disease. Reading Location: [facility] Brain MRI 09/12/25 09:41 IMPRESSION: No acute brain abnormalities. No abnormal enhancement. No masses. White matter changes which are nonspecific but most likely due to chronic small-vessel ischemia. Reading Location[facility] Physical Exam Narrative General: Alert, oriented, no apparent distress HEENT: Atraumatic, normocephalic Eyes: Anicteric, normal conjunctiva, extraocular movements grossly intact Neck: Supple Respiratory: Clear to auscultation bilaterally, normal respiratory effort Cardiovascular: Regular rate and rhythm GI: Soft, nontender, nondistended Extremities: No edema Musculoskeletal: Moving all extremities Neuro: Sometimes difficulty getting words out occasional jerking movements Skin: No rashes appreciated Psych: Cooperative Assessment & Plan Assessment/Plan (1) Dysarthria: (2) Word finding difficulty: PLAN: Plan # Word finding difficulty and abnormal movements - Patient with dysarthria and jerking movements with myoclonic type picture that started after she discontinued Benadryl so she could have allergy testing this week -ESR and CRP negative, UA not suggestive of UTI, UDS negative, glucose within normal limits - Patient initially brought in as a stroke rule out, evaluated by neurology - Not felt to be stroke related and it was advised NIH as an MRI could likely be DC'd as this seemed unlikely to be a CVA - MRI completed as patient was already down and showed no acute abnormalities or masses but white matter changes which are nonspecific but most likely due to chronic small vessel ischemia - NIH is discontinued - Suspected that Benadryl was masking these underlying symptoms, they did seem to get a little bit better in the ED with Benadryl - Discussed with neurology, will trial Cogentin 0.5 mg twice daily - Did already have an EEG this morning which is pending - Holding home Benadryl #Depression/anxiety -Continue home medications - Patient follows with Dr. Argueta on an outpatient basis, last seen 08/23/25 # History of tardive dyskinesia - Patient is on valbenazine at home however this is not on formulary here, resume as soon as possible or can continue if patient can bring this in from home - Continue amantadine #Hypertension - Continue home medications #DVT ppx: Lovenox subcu Khalida Vergara MD Charges/Coding Visit Charges Inpatient E&M: 68300 Subs Hosp L2 NIHSS NIHSS Nursing Documentation NIHSS Nursing Documentation: NIH Stroke Scale Start: 09/11/25 18:07 Freq: Status: Discharge Protocol: Activity Type Activity Date Activity User E-sign Co-sign Detail Recorded Client Recorded Date Recorded By Document 09/11/25 18:07 [facility] [id number] 09/11/25 18:07 DK 09/11/25 18:07 NIH Stroke Scale [NIHSS] A score of 0 is normal or asymptomatic . Total possible score is 42. Inpatient: RN or Physician to activate a stroke alert for onset of new stroke symptoms or with NIHSS increase >/= 3 points. Following change in neurological status, NIHSS will be performed per physician order or more frequently PRN. -1a. Level of Consciousness 0 - Alert; keenly responsive -1b. LOC Questions 0 - Answers BOTH questions correctly -1c. LOC Commands 0 - Performs BOTH tasks correctly -2. Best Gaze 0 - Normal -3. Visual 0 - No visual loss -4. Facial Palsy 0 - Normal symmetrical movements -5a. Left Arm 0 - No drift; arm holds 90 ( or 45) degrees for full 10 seconds -5b. Right Arm 0 - No drift; arm holds 90 ( or 45) degrees for full 10 seconds -6a. Left Leg 0 - No drift; leg holds 30- degree position for full 5 seconds -6b. Right Leg 0 - No drift; leg holds 30- degree position for full 5 seconds -7. Limb Ataxia 0 - Absent -8. Sensory 0 - Normal; no sensory loss -9. Best Language 1 - Mild-to- moderate aphasia; -10. Dysarthria 1 = Mild-to- moderate dysarthria; -11. Extinction and Inattention 0 - No abnormality -Total 2 Query Text:A score of 0 is normal or asymptomatic. Total possible score is 42 . ED: Notify Physician for NIHSS increase by > / = 3 points. Inpatient: RN or Physician to activate a stroke alert for NIHSS increase of > / = 3 points. NIHSS: Ischemic Stroke/TIA Start: 09/11/25 23:02 Text: For ICU Patients: NIH sroke scale at Status: Complete presentation and every 2 hours or with change in RN caregiver Freq: [id number] Protocol: Activity Type Activity Date Activity User E-sign Co-sign Detail Recorded Client Recorded Date Recorded By Document 09/11/25 23:25 [facility] [id number] 09/11/25 23:28 [facility] 09/11/25 23:25 -1a. Level of Consciousness 0 - Alert; keenly responsive -1b. LOC Questions 0 - Answers BOTH questions correctly -1c. LOC Commands 0 - Performs BOTH tasks correctly -2. Best Gaze 0 - Normal -3. Visual 0 - No visual loss -4. Facial Palsy 0 - Normal symmetrical movements -5a. Left Arm 0 - No drift; arm holds 90 ( or 45) degrees for full 10 seconds -5b. Right Arm 0 - No drift; arm holds 90 ( or 45) degrees for full 10 seconds -6a. Left Leg 0 - No drift; leg holds 30- degree position for full 5 seconds -6b. Right Leg 0 - No drift; leg holds 30- degree position for full 5 seconds -7. Limb Ataxia 0 - Absent -8. Sensory 0 - Normal; no sensory loss -9. Best Language 1 - Mild-to- moderate aphasia; -10. Dysarthria 1 = Mild-to- moderate dysarthria; -11. Extinction and Inattention 0 - No abnormality -Total 2 Query Text:A score of 0 is normal or asymptomatic. Total possible score is 42 . ED: Notify Physician for NIHSS increase by > / = 3 points. Inpatient: RN or Physician to activate a stroke alert for NIHSS increase of > / = 3 points. Coma Scale [Assess] -Eye Opening Spontaneous -Motor Obeys Commands -Verbal Oriented [Total] -Coma Scale Total 15 NIHSS: Ischemic Stroke/TIA Start: 09/11/25 23:02 Text: For PCU Patients: NIH and Neuro Check every 4 Status: Complete hours, PRN and with change in RN caregiver. Freq: [id number] Protocol: Activity Type Activity Date Activity User E-sign Co-sign Detail Recorded Client Recorded Date Recorded By Document 09/12/25 14:00 RV [id number] 09/12/25 14:43 RV 09/12/25 14:00 NIH Stroke Scale [NIHSS] A score of 0 is normal or asymptomatic . Total possible score is 42. Inpatient: RN or Physician to activate a stroke alert for onset of new stroke symptoms or with NIHSS increase >/= 3 points. Following change in neurological status, NIHSS will be performed per physician order or more frequently PRN. -1a. Level of Consciousness 0 - Alert; keenly responsive -1b. LOC Questions 0 - Answers BOTH questions correctly -1c. LOC Commands 0 - Performs BOTH tasks correctly -2. Best Gaze 0 - Normal -3. Visual 0 - No visual loss -4. Facial Palsy 0 - Normal symmetrical movements -5a. Left Arm 0 - No drift; arm holds 90 ( or 45) degrees for full 10 seconds -5b. Right Arm 0 - No drift; arm holds 90 ( or 45) degrees for full 10 seconds -6a. Left Leg 0 - No drift; leg holds 30- degree position for full 5 seconds -6b. Right Leg 0 - No drift; leg holds 30- degree position for full 5 seconds -7. Limb Ataxia 0 - Absent -8. Sensory 0 - Normal; no sensory loss -9. Best Language 0 - No aphasia; normal -10. Dysarthria 0 - Normal -11. Extinction and Inattention 0 - No abnormality -Total 0 Query Text:A score of 0 is normal or asymptomatic. Total possible score is 42 . ED: Notify Physician for NIHSS increase by > / = 3 points. Inpatient: RN or Physician to activate a stroke alert for NIHSS increase of > / = 3 points. Coma Scale [Assess] -Eye Opening Spontaneous -Motor Obeys Commands -Verbal Oriented [Total] -Coma Scale Total 15
[2025-09-12 14:56] VITALS: BMI 33.5
[2025-09-12 20:40] VITALS: BP 128/53; PULSE 68; RESP 18; TEMP 36.7; O2SAT 97
[2025-09-13 02:40] VITALS: BP 101/64; PULSE 60; RESP 18; TEMP 36.1; O2SAT 99
[2025-09-13 06:49] LABS: Hematocrit 37.2 % (37-47); Hemoglobin 12.0 g/dL (12.0-15.0); Mean Corp Hgb Conc 32.3 g/dL (32-36); Mean Corpuscular Volume 94.4 fL (81-99); Mean Platelet Vol. 10.8 fl (6.2-12.0); Platelet Count 246 K/mm3 (150-450); RBC Distribution Width CV 12.6 % (11.6-14.6); RBC Distribution Width SD 44.1 fl (35.1-43.9); Red Blood Count 3.94 M/mm3 (4.2-5.4); White Blood Count 7.0 K/mm3 (4.4-11.0)
[2025-09-13 07:20] LABS: Anion Gap 10 (5-15); BUN 14 mg/dL (4-19); BUN/Creat Ratio 17.3 RATIO (10-20); Calcium,Total 8.7 mg/dL (7.6-11.0); Carbon Dioxide 24.2 mmol/L (21.0-32.0); Chloride 106 mmol/L (98-108); Estimated Creatinine Clearance 67.34 ml/min (50-250); Glucose 96 mg/dL (70-99); Potassium 4.1 mmol/L (3.3-5.1)
[2025-09-13 07:44] VITALS: BP 136/61; PULSE 64; RESP 17; TEMP 36.5; O2SAT 96
[2025-09-13] MEDS: Aspirin E.C. 81 MG Tablet PO (08:29)
[2025-09-13 09:05] VITALS: O2SAT 98
[2025-09-13] MEDS: VALBENAZINE TOSYLATE 40 MG CAPSULE PO (09:44)
[2025-09-13 09:45] VITALS: PULSE 60
[2025-09-13] MEDS: Metoprolol(XL)Succ 25 MG Tablet PO (09:45)
--- NOTE | 2025-09-13 09:45 | CASEMGMT ---
Social Work Per imaging pt negative for stroke, therefore PHQ9 not completed. MARILYN Desai
--- NOTE | 2025-09-13 10:15 | CASEMGMT ---
RN CM Face to Face with patient for initial transition planning/care coordination assessment. RN CM introduced self and role at [facility]. Patient lying in bed, alert and oriented. Patient willing to participate in assessment and is able to answer all questions appropriately. Care providers, pharmacy, and demographics verified. Strata: 2 PCP: Giovanni Specialists: Kendall, psychiatry; Rubin, neurologist Preferred Pharmacy: [facility]; [facility] at discharge Insurance: [facility], [employer] Prescription Benefit: yes Living Will/HPOA: yes, daughter Leanna Ngo LNOK: , daughter Living Arrangements: Patient lives with in a single story home with 3 steps and railing to enter the home. Patient states she is independent at home. Transportation: DME/HHC: Patient has shower chair, cane, grab bars at home. No previous SNF. Patient has had [facility] in the past. Patient wishes to discharge home, denies need for home health at this time. Patient states she has no further needs or concerns at this time. CM to follow for discharge planning needs that may arise. Disposition Plan: Patient to discharge home with family support and follow-up plans in place. Sheridan REGALADO, RN, CM
--- NOTE | 2025-09-13 11:19 | DCINST_ITS ---
Discharge Instructions DC O2, CPAP, BIPAP needs Home O2 Discharge instructions: No Dressing / Incision Discharge Activity: Return to Normal Activity Dressing / Incision Call your doctor if you observe: Fever of 101 or Higher, Shortness of breath, Dizziness, Fainting spells, Swelling in the ankles, Chest pain and Increased palpitations (irregular heartbeat) Follow Up Care Test Results: Test results from this visit will be discussed in further detail at your follow- up appointment, if applicable. Discharge Plan Admission Admit Date/Time: 09/12/25 15:34 Attending Provider: Jitendra Marshall Primary Care Provider: Juvencio Davila Consulting Providers: Teja Santana; Deja Pineda; Pamela Leavitt; Surjit Shepherd; Rajni Mclean; Luis F Lea; Marley Cheung; Haley Armendariz; Rj Angulo; Danielle Knight; Anuel Hilton; Kehinde Pack; Janet Bloom; Leoncio Vicente; Clay Soni; Wendi Velasquez; Waldo Zuniga; Leon Martinez; Ricardo Diop; Jeniffer Espinosa; Ed Paz; Chel Barnes; Kasi Richardson; Freddie Ramirez; CISCO OLSEN; Ariel Oliveira; Yvette Ha; Vickie Espinosa; Khalida Vergara; Jitendra Marshall; Bernard Petersen Instructions Additional Instructions / Restrictions: Follow-up with your neurologist Discharge Orders/Prescriptions Prescriptions: New benztropine 0.5 mg Tablet 0.5 mg PO BID 30 Days Qty: 60 0RF Continued aspirin 81 mg tablet,delayed release (DR/EC) 81 mg PO DAILY Ingrezza 80 mg capsule 40 mg PO DAILY diphenhydramine HCl [Benadryl Allergy] 25 mg tablet 25 mg PO QHS diclofenac sodium 75 mg tablet,delayed release (DR/EC) 75 mg PO Q12H amantadine HCl 100 mg tablet 100 mg PO BID fluoxetine 40 mg capsule 40 mg PO DAILY 90 Days Qty: 90 2RF fluoxetine 20 mg capsule 20 mg PO QDAY Qty: 90 2RF buspirone 15 mg tablet 15 mg PO BID 90 Days Qty: 180 2RF clonazepam 0.5 mg tablet 0.25 mg PO BID 30 Days Qty: 30 3RF simvastatin 40 MG tablet 40 mg PO QHS Patient Comments: TAKE 1 TABLET BY MOUTH EVERY DAY AT NIGHT folic acid 1 MG tablet 1 mg PO DAILY Patient Comments: TAKE 1 TABLET BY MOUTH EVERY DAY metoprolol succinate 25 mg tablet extended release 24 hr See Rx Instructions .ROUTE .COMPLEX Qty: 90 3RF Dose Instruction: TAKE 1 TABLET BY MOUTH EVERY DAY Rx Instructions: TAKE 1 TABLET BY MOUTH EVERY DAY lisinopril 2.5 mg tablet 2.5 mg PO DAILY Qty: 90 3RF Referrals / Follow Up: Juvencio Davila MD [Primary Care Provider, Family Practice] - Within 1 Week Disposition Disposition (needs filled in before D/C Order can be placed): Home, Self Care
--- NOTE | 2025-09-13 12:17 | PHA.DC.MC.R ---
Pharmacy [facility] Counseling Pharmacy Service has performed discharge medication reconciliation and counseling for this patient. 1. BENZTROPINE 0.5MG PO BID The patient's discharge medication list was reviewed for discrepancies and discrepancies were resolved. The patient was counseled on the following discharge medications and changes in medications for homegoing were reviewed. The Reason for Use, instructions for use, and potential side effects were reviewed for all new medications. The patient's questions regarding all of their medications were answered. The patient was able to verbally demonstrate an understanding of their discharge medications. Medications at Discharge Home Medications folic acid 1 mg tablet 1 mg PO DAILY SUPPLEMENT 02/23/19 simvastatin 40 mg tablet 40 mg PO QHS CHOLESTEROL 02/23/19 aspirin 81 mg tablet,delayed release 81 mg PO DAILY heart health 01/03/23 metoprolol succinate 25 mg tablet,extended release 24 hr See Rx Instructions .Route .COMPLEX blood pressure #90 tabs 03/31/23 diphenhydramine HCl 25 mg tablet (Benadryl Allergy) 25 mg PO QHS allergy 12/04/23 valbenazine 80 mg capsule (Ingrezza) 40 mg PO DAILY tardive dyskenisia 12/04/23 lisinopril 2.5 mg tablet 2.5 mg PO DAILY blood pressure #90 TABLETS 09/04/24 diclofenac sodium 75 mg tablet,delayed release 75 mg PO Q12H pain 12/08/24 amantadine HCl 100 mg tablet 100 mg PO BID parkinsons 03/09/25 buspirone 15 mg tablet 15 mg PO BID mental health 90 days #180 tabs 08/23/25 clonazepam 0.5 mg tablet 0.25 mg (1/2 x 0.5 mg) PO BID mental health 30 days #30 tabs 08/23/25 fluoxetine 20 mg capsule 20 mg PO QDAY mental health #90 caps 08/23/25 fluoxetine 40 mg capsule 40 mg PO DAILY mental health 90 days #90 caps 08/23/25 benztropine 0.5 mg tablet 0.5 mg PO BID 30 days #60 tabs 09/13/25
[2025-09-13 13:27] VITALS: BP 132/56; PULSE 74; RESP 15; TEMP 36.6; O2SAT 99
--- NOTE | 2025-09-13 14:44 | PCM.DC.SUM ---
Providers Date of Admission: 09/12/25 Primary Care Physician: Dr. Juvencio Davila MD Consultations 09/11/25 23:02 Consult: Tele-Neurology Routine Consulting Provider: [facility] Reason for Consult: Acute Ischemic Stroke/TIA EMERGENT Consult: No MD Notified: Yes Date Notified: 09/11/25 Time Notified: 23:23 Method of Notification: Answering Service Nursing Unit Staff Notify [facility] of Tele-Neurology Consult: Yes Reason For Visit: DYSARTHRIA/WORD FINDING DIFFICULTY Diagnosis Discharge Diagnosis (1) Dysarthria: Status: Acute Code(s): R47.1 - Dysarthria and anarthria (2) Word finding difficulty: Status: Acute Code(s): R47.89 - Other speech disturbances Medications at Discharge Home Medications folic acid 1 mg tablet 1 mg PO DAILY SUPPLEMENT 02/23/19 simvastatin 40 mg tablet 40 mg PO QHS CHOLESTEROL 02/23/19 aspirin 81 mg tablet,delayed release 81 mg PO DAILY heart health 01/03/23 metoprolol succinate 25 mg tablet,extended release 24 hr See Rx Instructions .Route .COMPLEX blood pressure #90 tabs 03/31/23 diphenhydramine HCl 25 mg tablet (Benadryl Allergy) 25 mg PO QHS allergy 12/04/23 valbenazine 80 mg capsule (Ingrezza) 40 mg PO DAILY tardive dyskenisia 12/04/23 lisinopril 2.5 mg tablet 2.5 mg PO DAILY blood pressure #90 TABLETS 09/04/24 diclofenac sodium 75 mg tablet,delayed release 75 mg PO Q12H pain 12/08/24 amantadine HCl 100 mg tablet 100 mg PO BID parkinsons 03/09/25 buspirone 15 mg tablet 15 mg PO BID mental health 90 days #180 tabs 08/23/25 clonazepam 0.5 mg tablet 0.25 mg (1/2 x 0.5 mg) PO BID mental health 30 days #30 tabs 08/23/25 fluoxetine 20 mg capsule 20 mg PO QDAY mental health #90 caps 08/23/25 fluoxetine 40 mg capsule 40 mg PO DAILY mental health 90 days #90 caps 08/23/25 benztropine 0.5 mg tablet 0.5 mg PO BID 30 days #60 tabs 09/13/25 Hospital Course Operations None Procedures Electroencephalogram Summary of Care Provided Minutes Spent on Discharge: 33 Hospital Course: Per HPI: KAMILA SUAREZ, is a 70 F with a history of major depressive disorder and history of tardive dyskinesia who presented to the emergency department at [facility] on 09/11/2025 with headache, lightheadedness, speech difficulty, and spasms. She stated that her symptoms essentially started on . She woke up and was feeling okay. She had been on Benadryl nightly for about 8 to 10 years and was told recently to stop it for allergy testing. Last dose was Saturday evening. She stated the headache started gradually in the bilateral frontal area and is persistently in the bilateral frontal area but now wraps around the side some. She also has had some upper extremity muscle jerks and significant tension in her neck related to the spasming. This is not causing pain. She has had intermittent dysarthria and some intermittent word finding issues. Her family who is at the bedside states that it kind has ebbed and flowed. She initially reported some dizziness however it sounds like it was more positional. She denied any tingling numbness or weakness that was new in her arms or legs. She has had no fever or chills. And had been doing well otherwise. She follows with psychiatry and sees Dr. Andrew Argueta with her last appointment seeing him on 08/23/2025. She is on Ingrezza which has been very effective for her tardive dyskinesia in general. Vital signs at the time of presentation showed a temperature of 97.5, heart rate 79, respiratory rate 16, blood pressure is 129/90 and pulse ox was 99% on room air. Her CBC is completely unremarkable. Her chemistry panel is unremarkable. Her UA is not consistent with infection. Blood glucose is normal. EKG is sinus bradycardia with a rate of 57 and normal intervals with no ST-T wave changes concerning for acute ischemia. Chest x-ray shows no acute findings. CT of the brain was negative for any acute intracranial pathology. CTA of the head and neck was unremarkable. NIH was 2. Given her ongoing symptoms stroke rule out is pertinent at this time and she will be admitted under observation status for this. Hospital Course: # Word finding difficulty and abnormal movements - Patient with dysarthria and jerking movements with myoclonic type picture that started after she discontinued Benadryl so she could have allergy testing this week -ESR and CRP negative, UA not suggestive of UTI, UDS negative, glucose within normal limits - Patient initially brought in as a stroke rule out, evaluated by neurology - Not felt to be stroke related and it was advised NIH as an MRI could likely be DC'd as this seemed unlikely to be a CVA - MRI completed as patient was already down and showed no acute abnormalities or masses but white matter changes which are nonspecific but most likely due to chronic small vessel ischemia - NIH is discontinued - Suspected that Benadryl was masking these underlying symptoms, they did seem to get a little bit better in the ED with Benadryl - Discussed with neurology, will trial Cogentin 0.5 mg twice daily - Did already have an EEG this morning which is pending - Holding home Benadryl 09/13/2025: She states that she is back to baseline with her speech, she was started on Cogentin 0.5 mg p.o. twice daily which seems to be helping. In discussion with neurology they felt that it would be beneficial to continue this medication on discharge, I do recommend outpatient follow-up with her PCP as well as neurology. I discussed with her the possibility of discharge today since the EEG was read as unremarkable with no epileptic discharges, she expressed understanding of the risks and benefits of going home and would like to go home today. Will discontinue Benadryl. #Depression/anxiety -Continue home medications - Patient follows with Dr. Argueta on an outpatient basis, last seen 08/23/25 # History of tardive dyskinesia - Patient is on valbenazine at home however this is not on formulary here, resume as soon as possible or can continue if patient can bring this in from home - Continue amantadine #Hypertension - Continue home medications Physical Exam Narrative General: Alert, Oriented x3, Cooperative, No apparent distress HEENT: Atraumatic, PERRLA, EOMI, Normocephalic Oral: Moist Mucosa Neck: Supple, No JVD Lungs: Clear to auscultation, Normal air movement, No rhonchi, No wheeze, No rales Cardiovascular: Regular rate, Regular Rhythm, Normal S1, Normal S2, No murmurs Abdomen: Soft, Non Tender, Non-Distended, No Hepato-splenomegaly Extremities: No edema, Capillary Refill Less than 3 Seconds Skin: No rashes, No breakdown Musculoskeletal: No Tenderness to Palpation of Joints or Extremities Neurological: No focal neurological deficits, moves all extremities Psych/Mental Status: Normal Affect, Appropriate Weight / BMI Weight Weight: 183 lb 10.321 oz Body Mass Index (BMI) 33.5 ABG / Lab / Microbiology Data 09/13/25 06:20 09/13/25 06:20 Laboratory: Laboratory Results - last 24 hr 09/13/25 06:20: WBC 7.0, RBC 3.94 L, Hgb 12.0, Hct 37.2, MCV 94.4, MCH 30.5, MCHC 32.3, RDW Std Deviation 44.1 H, RDW Coeff of Darlyn 12.6, Plt Count 246, MPV 10.8, Sodium 140, Potassium 4.1, Chloride 106, Carbon Dioxide 24.2, Anion Gap 10, BUN 14, Creatinine 0.80, Estim Creat Clear Calc 67.34, Est GFR (MDRD) Non-Af 80, BUN/Creatinine Ratio 17.3, Glucose 96, Calcium 8.7 D/C Instructions Call your doctor if you observe: Fever of 101 or Higher, Shortness of breath, Dizziness, Fainting spells, Swelling in the ankles, Chest pain and Increased palpitations (irregular heartbeat) DC O2, CPAP, BIPAP Needs Home O2 Discharge instructions: No Meaningful Use Info Meaningful Use Meaningful Use Diagnoses (Choose all that apply): None applicable Discharge Plan Admission Admit Date/Time: 09/12/25 15:34 Attending Provider: Jitendra Marshall Primary Care Provider: Juvencio Davila Consulting Providers: Teja Santana; Deja Pineda; Pamela Leavitt; Surjit Shepherd; Rajni Mclean; Luis F Lea; Marley Cheung; Haley Armendariz; Rj Angulo; Danielle Knight; Anuel Hilton; Kehinde Pack; Janet Bloom; Leoncio Vicente; Clay Soni; Wendi Velasquez; Waldo Zuniga; Leon Martinez; Ricardo Diop; Jeniffer Espinosa; Ed Paz; Chel Barnes; Kasi Richardson; Freddie Ramirez; CISCO OLSEN; Ariel Oliveira; Yvette Ha; Vickie Espinosa; Khalida Vergara; Jitendra Marshall; Bernard Petersen Instructions Additional Instructions / Restrictions: Follow-up with your neurologist Discharge Orders/Prescriptions Prescriptions: New benztropine 0.5 mg Tablet 0.5 mg PO BID 30 Days Qty: 60 0RF Continued aspirin 81 mg tablet,delayed release (DR/EC) 81 mg PO DAILY Ingrezza 80 mg capsule 40 mg PO DAILY diphenhydramine HCl [Benadryl Allergy] 25 mg tablet 25 mg PO QHS diclofenac sodium 75 mg tablet,delayed release (DR/EC) 75 mg PO Q12H amantadine HCl 100 mg tablet 100 mg PO BID fluoxetine 40 mg capsule 40 mg PO DAILY 90 Days Qty: 90 2RF fluoxetine 20 mg capsule 20 mg PO QDAY Qty: 90 2RF buspirone 15 mg tablet 15 mg PO BID 90 Days Qty: 180 2RF clonazepam 0.5 mg tablet 0.25 mg PO BID 30 Days Qty: 30 3RF simvastatin 40 MG tablet 40 mg PO QHS Patient Comments: TAKE 1 TABLET BY MOUTH EVERY DAY AT NIGHT folic acid 1 MG tablet 1 mg PO DAILY Patient Comments: TAKE 1 TABLET BY MOUTH EVERY DAY metoprolol succinate 25 mg tablet extended release 24 hr See Rx Instructions .ROUTE .COMPLEX Qty: 90 3RF Dose Instruction: TAKE 1 TABLET BY MOUTH EVERY DAY Rx Instructions: TAKE 1 TABLET BY MOUTH EVERY DAY lisinopril 2.5 mg tablet 2.5 mg PO DAILY Qty: 90 3RF Referrals / Follow Up: Juvencio Davila MD [Primary Care Provider, Family Practice] - Within 1 Week Disposition Disposition (needs filled in before D/C Order can be placed): Home, Self Care Charges/Coding Visit Charges Inpatient E&M: 87548 Disch Hosp >30min
== END 2025-09-13 15:23 | disposition home or self-care (01) | DRG 93 ==
LOC: ED 19:17 → PCU 22:42
PROVIDERS: Internal Medicine; Admitting Provider Internal Medicine; Emergency Provider Student in an Organized Health Care Education/Training Program; PCP Family Medicine; Visit Provider Family Medicine
DX: G25.3 Myoclonus (principal); E66.9 Obesity, unspecified; I10 Essential (primary) hypertension; F32.5 Major depressive disorder, single episode, in full remission; E78.5 Hyperlipidemia, unspecified; G24.01 Drug induced subacute dyskinesia; F41.9 Anxiety disorder, unspecified; R47.1 Dysarthria and anarthria; R42 Dizziness and giddiness; R47.89 Other speech disturbances; Z68.33 Body mass index [BMI] 33.0-33.9, adult; Z79.82 Long term (current) use of aspirin; Z79.899 Other long term (current) drug therapy
CPT/HCPCS: 36415; 70450; 70496; 70498; 70553; 71046; 80048; 80053; 80061; 80307; 81001; 82962; 83036; 83735; 84100; 84443; 85025; 85027; 85652; 86140; 93005; 94762; 95819; 97162; 97166; 99252; 99285; A9575; Q9967; A4216; G0463; J2405